=== PATIENT | male | born 1955 | race Caucasian/White ===

== ENCOUNTER 2018-09-26 08:22 | Inpatient (IN) | payer MEDICAID, SELFPAY ==
[2018-09-26] VITALS (22 sets, daily range): BP systolic 104–136; BP diastolic 60–94; PULSE 86–115; RESP 15–25; TEMP 36.2–36.7; O2SAT 91–100; BMI 22.1; BMI 22.3
[2018-09-26 08:31] LABS: Bedside Glucose > 500 mg/dL (70-110)
--- NOTE | 2018-09-26 08:41 | EKG12_ITS ---
Test Reason : DIABETIC Blood Pressure : / mmHG Vent. Rate : 115 BPM Atrial Rate : 115 BPM P-R Int : 182 ms QRS Dur : 104 ms QT Int : 334 ms P-R-T Axes : 073 039 056 degrees QTc Int : 462 ms Sinus tachycardia Low voltage QRS (LIMB LEADS) Confirmed by RAMÓN MCKENNA, MAYI ([id number]), editorial director LILIAM MCKEON ([id number] on 09/29/2018 1:41:20 PM Referred By: Shane Schneider Confirmed By:MAYI MELGAR MD
[2018-09-26 09:00] LABS: Absolute Lymphocyte Count 3.47 X10^3/ul (0.83-4.51); Absolute Neutrophil Count 35.3 X10^3/uL (2.0-7.7); Basophil# 0.02 X10^3/uL; Basophil% 0.1 % (0-1); Differential Indicated SCAN CRITERIA MET; Hematocrit 46.7 % (40-54); Lymphocyte # 3.47 X10^3/ul (4.0); Lymphocyte % 8.7 % (19-41); Mean Corpuscular Volume 100.2 fL (80-94); Mean Platelet Vol. 11.4 fl (6.2-12.0); Neutrophil # 35.28 X10^3/uL (2.7-7.7); Neutrophil % 88.9 % (47-70); POSITIVE COUNT YES; POSITIVE DIFFERENTIAL YES; POSITIVE MORPHOLOGY YES; Platelet Count 428 K/mm3 (150-450); RBC Distribution Width CV 14.4 % (11.6-14.6); RBC Distribution Width SD 52.6 fl (35.1-43.9); Red Blood Count 4.66 M/mm3 (4.6-6.2)
[2018-09-26 09:01] LABS: White Blood Count 39.7 K/mm3 (4.4-11.0)
--- NOTE | 2018-09-26 09:04 | ED.RN ---
dr sharma notified of wbc 39.7
[2018-09-26] MEDS: 0.9% Normal Saline 1,000 ML 999 ML IV ×2 (09:08→10:07)
[2018-09-26] MEDS: Ondansetron 4 MG/2 ML Vial IV (09:08)
--- NOTE | 2018-09-26 09:09 | CPS ---
Critical values on ABG Dr. Huntley was notified.
[2018-09-26 09:11] LABS: Base Excess -25 mmol/L (-2 to +2); Bicarbonate 4.6 mmol/L (22-26); Blood Gas Specimen Type ART; O2 Delivery Device Nasal Can; PO2 127 mmHG (75-100); SITE R Radial; SO2 97 % (95-99); Time Given 857; Total Carbon Dioxide 5 mmol/L; pCO2 15.5 mmHg (35-45); pH 7.09 (7.35-7.45)
--- NOTE | 2018-09-26 09:13 | ED.VISSUMM ---
- ER Visit Summary Date of Service: 09/26/18 Chief Complaint: [Vomiting and hyperglycemia] History of Present Illness: The patient is a 62 M [presents the emergency department via EMS with 3-day history of vomiting. Patient tells me he is been compliant with his insulin and he is a type I diabetic. Patient does have a history of DKA. Denies any chest pain or shortness of breath. He denies any abdominal pain. Patient denies any diarrhea. He has had a slight cough. EMS also gives history of recent heroin use yesterday per patient's apparently. Patient also with history of high cholesterol and hypothyroidism.] Physical Examination: [HEENT-PERRLA, EOMI. Cranial nerves II through XII grossly intact. TMs clear. Mucous membranes dry. No adenopathy. Cardiovascular-regular and tachycardic. No murmurs auscultated. Lungs-clear to auscultation, chest wall stable without crepitus or subcu emphysema Abdomen-normoactive bowel sounds, soft, nontender, no rebound or rigidity, no peritoneal signs. Extremities-intact ?4, normal range of motion, normal pulses, atraumatic] Test Results: [CBC with differential obtained showed a white count of 39.7, hemoglobin 14, hematocrit 47, placed 428. ABG showed a pH of 7.085, CO2 of 15, bicarb of 4.6, 97% on room air. Fingerstick blood sugar on arrival said greater than 500.] Chemistry showed a potassium of 7.3, chloride of 91, CO2 of 7.0, glucose 1219, BUN 51 creatinine 3.07. EKG obtained arrival shows sinus tachycardia with a ventricular rate of 115 bpm with peaked T waves noted. Emergency Department Course and Treatment: [Patient had IV line established in his right EJ as he was a difficult IV stick. Patient was started immediately on a liter normal same fluid bolus and started on insulin drip. A second IV was established in his right upper arm. A second liter of IV fluids was ordered.] Treatment Plan: [Case was discussed with coal pipeline operator who will admit patient to the ICU. Will also discussed with hospitalist.] Disposition: [Admit] Impression: [DKA Dehydration] This note was generated with [employer] dictation software. It may contain incorrect words, spelling, and punctuation that were not noted in review of the chart prior to signing
[2018-09-26 09:20] LABS: Differential Comment SCANNED
[2018-09-26 09:36] LABS: Anion Gap 28 (5-15); BUN 51 mg/dL (7-18); BUN/Creat Ratio 16.6 RATIO (10-20); Calcium,Total 9.4 mg/dL (8.5-10.1); Chloride 91 mmol/L (98-107); Creatinine, Serum 3.07 mg/dL (0.70-1.30); EST Glomerular Filtration Rate 22 mL/min (>60); Est Glom Filt Rate - Afr Amer 27 mL/min (>60); Estimated Creatinine Clearance 25.09 ml/min; Glucose 1219 mg/dL (74-106); Potassium 7.3 mmol/L (3.5-5.1); Sodium Level 126 mmol/L (136-145)
--- NOTE | 2018-09-26 09:39 | ED.RN ---
POTASSIUM 7.3 GLUCOSE 1219 CO2 [address] LAB. DR THORNTON AWARE
--- NOTE | 2018-09-26 10:06 | PCM.HP.STD ---
Problem List (1) Type 1 diabetes mellitus Status: Chronic (2) DKA Status: Acute (3) Opioid type dependence, abuse Status: Chronic (4) Polysubstance use Status: Chronic (5) Acute kidney injury Status: Acute (6) Increased anion gap metabolic acidosis Status: Acute (7) Hyperkalemia Status: Acute (8) Hypothyroidism Status: Chronic (9) Dyslipidemia Status: Chronic History of Present Illness Date of Admission: 09/26/18 Chief Complaint: Vomiting and hyperglycemia The patient is a 62 year old M with history of type 1 diabetes mellitus was brought in to ER by EMS for 3 days of consistent vomiting. Patient also takes heroin IV use. Patient is very somnolent and obtunded and not able to give history. He hardly opens his eyes. [] In ED, he was found tachycardic, tachypneic and blood pressure 104/63. Labs were significantly abnormal for hyperglycemia, glucose of 88, K 7.3, bicarb 9.0, BUN/creatinine 45/2.5, leukocytosis about 40,000, MCV 100 platelet count 128. ABG 7.0 9/127 on 3 L oxygen nasal cannula. UA positive of proteinuria, glucosuria, ketones but negative for hematuria or pyuria. U tox positive of methadone and benzodiazepines. EKG normal sinus rhythm at 89 bpm with LAD and LAE. Patient had 2 L of normal saline bolus given, started on IV insulin drip Past Medical History Past Medical History (Chronic Problems): Chronic Problems Type 1 diabetes mellitus (Chronic) Opioid type dependence, abuse (Chronic) Polysubstance use (Chronic) Hypothyroidism (Chronic) Dyslipidemia (Chronic) Allergies No Known Allergies Allergy (Verified 09/26/18 08:27) Smoking Status: Current every day smoker - Cigarettes about 1 pack/day Alcohol: None Drugs: Heroin - *Family History Paternal History Items: - - Unobtainable as patient has altered mental status/somnolent Review of Systems Eyes: Reports: - - Eyes closed Cardiovascular: Denies: Chest Pain, Chest Pressure Respiratory: Denies: Shortness of Breath Unable to obtain accurate/complete ROS d/t: Obtunded/somnolent VTE Information - Inpt Only VTE Present on Admission: No VTE Mechan Device Prophylaxis: SCD's VTE Pharm Prophylaxis ordered?: Yes Patient Problems: Active and Suspected Problems DKA (Acute) Acute kidney injury (Acute) Increased anion gap metabolic acidosis (Acute) Hyperkalemia (Acute) - Physical Exam General: Confused, Disoriented, Lethargic, - - Patient is very somnolent and obtunded. Oral: No Gingival or Mucosal Lesions/ Ulcerations, Dry Mucosa - Mucous membrane and tongue is very dry and parched Neck: Supple, No JVD, Negative Carotid Bruits Lungs: No rhonchi, No wheeze, No rales, Diminished - Air entry is diminished bilaterally probably from decreased respiratory effort Cardiovascular: Regular rate, Regular Rhythm, Normal S1, Normal S2, No murmurs Abdomen: Bowel Sounds Present, Soft, Non Tender, Non-Distended Extremities: No edema, Capillary Refill Less than 3 Seconds Skin: No rashes, No breakdown Neurological: Cranial nerves II-XII grossly intact, Deep Tendon Reflexes 2+/4 and Symmetrical, - - Detail neuro exam not possible as patient is somnolent Vital Signs Temp Pulse Resp BP Pulse Ox 97.8 F 106 H 24 H 136/71 H 97 09/26/18 08:23 09/26/18 09:37 09/26/18 09:37 09/26/18 09:37 09/26/18 09:37 Oxygen Flow Rate (L/min) 2 Oxygen Delivery Method Nasal Cannula Weight: 154 lb 12.232 oz Body Mass Index (BMI) 22.1 Laboratory Tests Past 24 Hrs 09/26/18 09/26/18 09/26/18 08:45 08:45 08:59 WBC 39.7 H* RBC 4.66 Hgb 14.0 Hct 46.7 MCV 100.2 H MCH 30.0 MCHC 30.0 L RDW 14.4 RDW Differential 52.6 H Plt Count 428 MPV 11.4 Immature Gran % (Auto) 1.300 H Neut % (Auto) 88.9 H Lymph % (Auto) 8.7 L Richardson % (Auto) 1.0 Eos % (Auto) 0.0 Baso % (Auto) 0.1 Absolute Neuts (auto) 35.3 H Absolute Lymphs (auto) 3.47 Total Counted Not Reportable Differential Comment SCANNED Diff Path Review May foll Specimen Type ART Sample Site R Radial pH 7.09 L* Bicarbonate Actual 4.6 L POC Total CO2 5 Base Excess -25 L O2 Saturation 97 ABG pCO2 15.5 L* ABG pO2 127 H Roge Test NA O2 Delivery Device Nasal Can Liter Flow 3.0 Blood Gas Notified Whom ED MD Blood Gas Notified Time 857 Sodium 126 L Potassium 7.3 H* Chloride 91 L Carbon Dioxide 7.0 L* Anion Gap 28 H BUN 51 H Creatinine 3.07 H Estim Creat Clear Calc 25.09 Est GFR (MDRD) Af Amer 27 L Est GFR (MDRD) Non-Af 22 L BUN/Creatinine Ratio 16.6 Glucose 1219 H* Calcium 9.4 Troponin I < 0.015 Acetone Level 09/26/18 09:00 WBC RBC Hgb Hct MCV MCH MCHC RDW RDW Differential Plt Count MPV Immature Gran % (Auto) Neut % (Auto) Lymph % (Auto) Richardson % (Auto) Eos % (Auto) Baso % (Auto) Absolute Neuts (auto) Absolute Lymphs (auto) Total Counted Differential Comment Diff Path Review Specimen Type Sample Site pH Bicarbonate Actual POC Total CO2 Base Excess O2 Saturation ABG pCO2 ABG pO2 Roge Test O2 Delivery Device Liter Flow Blood Gas Notified Whom Blood Gas Notified Time Sodium Potassium Chloride Carbon Dioxide Anion Gap BUN Creatinine Estim Creat Clear Calc Est GFR (MDRD) Af Amer Est GFR (MDRD) Non-Af BUN/Creatinine Ratio Glucose Calcium Troponin I Acetone Level LARGE H POC Glucose 09/26/18 08:26 POC Glucose > 500 H* Assessment/Plan All Active Problems DKA (Acute) Acute kidney injury (Acute) Increased anion gap metabolic acidosis (Acute) Hyperkalemia (Acute) The patient is a 62 year old M with history of type 1 diabetes mellitus was brought in to ER by EMS for 3 days of consistent vomiting. Patient also takes heroin IV use. Patient is very somnolent and obtunded and not able to give history. He hardly opens his eyes. [] In ED, he was found tachycardic, tachypneic and blood pressure 104/63. Labs were significantly abnormal for hyperglycemia, glucose of 1219, K 7.3, bicarb 7.0, BUN/creatinine 51/3.07, leukocytosis about 40,000, MCV 100 platelet count 128. ABG 7.0 9/15/127 on 3 L oxygen nasal cannula. UA positive of proteinuria, glucosuria, ketones but negative for hematuria or pyuria. U tox positive of methadone and benzodiazepines. EKG normal sinus rhythm at 89 bpm with LAD and LAE. 1. DKA with severe high anion gap metabolic acidosis with compensatory respiratory alkalosis: Patient is being admitted in ICU. Repeat ABG after an hour. [employer] has been consulted. On DKA protocol with IV fluid normal saline and insulin drip. Nursing protocol for tapering the insulin drip as per nomogram. [employer] consult 2. Acute kidney injury with hyperkalemia most likely from volume depletion/prerenal etiology, hyponatremia mainly from dilutional hyperglycemia: With aggressive rehydration. Repeat potassium is 6.1. Sodium improved from 126 to 135. Corrected sodium is 143.9. Urine output 1500 mL. Patient has Henning catheter inserted in ER. 3. Leukocytosis seems mainly from hemoconcentration/DKA: She does not have fever. Heart rate is controlled. Monitor CBC. 4. Opioid use and dependence: Polysubstance use. Heroine/methadone use, IV: U tox is positive of methadone and benzodiazepine. LFT, GGT and serum alcohol ordered. 5. Type 1 diabetes mellitus: A1c ordered for tomorrow a.m. assistant manager trainee consulted. 6. Other comorbidities include dyslipidemia and hypothyroidism: TSH and free T4 ordered. DVT prophylaxis: On Lovenox 30 mg subcu daily adjusted to creatinine clearance and bilateral SCDs Code Visit Inpatient E&M: 81316 Init Hosp L3
[2018-09-26 10:09] LABS: Mucous, Urine 0 SEEN /hpf (<or=2+); White Blood Cells 0 SEEN /hpf (0-5)
[2018-09-26 10:17] LABS: Color, Urine Yellow (Yellow); Glucose, Dipstick 1000 mg/dl (Normal); Leukocyte Esterase-Dipstick Negative /ul (Negative); Nitrite-Dipstick Negative (Negative); Occult Blood-Urine 10 /ul (Negative); Protein-Dipstick 15 mg/dl (Negative); Urine Bilirubin Dipstick Negative (Negative); Urine Clarity Sl. Cloudy (Clear); Urine Urobilinogen Normal (Normal)
[2018-09-26 10:21] LABS: Ketone-Dipstick 150 mg/dl (Negative)
[2018-09-26 10:27] LABS: Red Blood Cells-Urine 0-5 SEEN /hpf (0-5)
[2018-09-26 10:28] LABS: Bacteria RARE /hpf (None Seen); Squamous Epithelial Cells - UA 0-5 SEEN /hpf (0-5)
[2018-09-26 10:41] LABS: Bedside Glucose > 500 mg/dL (70-110)
[2018-09-26 10:41] LABS: Bedside Glucose > 500 mg/dL (70-110)
[2018-09-26 10:48] LABS: Amphetamine Urine VISTA NEGATIVE (<1000 ng/mL); Barbiturate Urine VISTA NEGATIVE (< 200 ng/mL); Benzodiazepine Urine VISTA POSITIVE (< 200 ng/mL); Cocaine Urine VISTA NEGATIVE (< 300 ng/mL); Ecstacy Urine VISTA NEGATIVE (< 500 ng/mL); Methadone Urine VISTA POSITIVE (< 300 ng/mL); PCP Urine VISTA NEGATIVE (< 25 ng/mL); THC Urine VISTA NEGATIVE (< 50 ng/mL); Vista UDS pH Range 5
[2018-09-26 11:38] LABS: Anion Gap 20 (5-15); BUN 45 mg/dL (7-18); BUN/Creat Ratio 17.5 RATIO (10-20); Calcium,Total 8.7 mg/dL (8.5-10.1); Chloride 106 mmol/L (98-107); Creatinine, Serum 2.57 mg/dL (0.70-1.30); EST Glomerular Filtration Rate 27 mL/min (>60); Est Glom Filt Rate - Afr Amer 33 mL/min (>60); Estimated Creatinine Clearance 30.14 ml/min; Glucose 788 mg/dL (74-106); Potassium 6.1 mmol/L (3.5-5.1); Sodium Level 135 mmol/L (136-145)
--- NOTE | 2018-09-26 11:51 | PCM.CON.CC ---
Reason for Consult Date of Consultation: 09/26/18 Reason for Consultation: DKA, hyperkalemia History of Present Illness: The patient is a 62 year old M, with past medical history reportedly for narcotic/heroin abuse, type 1 diabetes and hypothyroidism, who presented to [facility] on 09/26/2018 secondary to a 3-day history of vomiting. Patient is not able to provide much history at this time, but does state he has had DKA previously. Patient has not been seen at this hospital prior to this visit. Patient reportedly had used heroin yesterday per EMS, but this cannot be verified. On arrival to the ER, patient was noted to be dehydrated, tachypneic and tachycardic. Laboratory work-up showed profound metabolic acidosis with partial respiratory compensation. Blood sugars were noted to be over 1200 and potassium was 7.3. EKG did show some peaked T waves. Patient was noted to have a creatinine at 3.07.. Patient was given fluid boluses and transferred to the intensive care unit for further evaluation. On arrival to the intensive care unit, patient was protecting his airway, but not answering appropriately. Patient opens his eyes to voice, moves all extremities appropriately, but mumbles most responses. Patient reports he used heroin because he was out of Suboxone. Patient is unable to provide any background on his diabetes. Patient's is not with him at this time. Unable to obtain review of systems at this time. Past Medical History Allergies No Known Allergies Allergy (Verified 09/26/18 08:27) Smoking Status: Current every day smoker Review of Systems Unable to obtain accurate/complete ROS d/t: Metabolic encephalopathy Objective: No imaging has been obtained. Patient has no pulmonary function test, echo or other health data available for review at this time. - Physical Exam General: - - RASS -2. Appears older than stated age. Protecting his airway. No paradoxical respiratory muscle motion noted. HEENT: Atraumatic, PERRLA, EOMI, Normocephalic, - - Slight scleral injection without icterus Oral: No Gingival or Mucosal Lesions/ Ulcerations, Dry Mucosa, - - Edentulous. Neck: Supple, No JVD, No Nodes, Trachea Midline Lungs: No rhonchi, No wheeze, No rales, Diminished, - - Symmetric expansion. No dullness to percussion. Cardiovascular: Normal S1, Normal S2, No murmurs, No rub noted, No Gallop, Tachycardic Abdomen: Bowel Sounds Present, Soft, Non Tender, Non-Distended Extremities: No cyanosis, No edema, Capillary Refill Less than 3 Seconds, Clubbing Skin: No rashes, No breakdown Musculoskeletal: No Tenderness to Palpation of Joints or Extremities, Cachexia, Muscle Wasting Lymphatic: No Cervical, Supraclavicular, or Inguinal Adenopathy Neurological: Cranial nerves II-XII grossly intact, Neuro grossly intact, Motor Exam 5/5 strength throughout Psych/Mental Status: Flat Affect, Restless Vital Signs Temp Pulse Resp BP Pulse Ox 36.2 C L 86 17 112/77 99 09/26/18 11:30 09/26/18 11:44 09/26/18 11:44 09/26/18 11:44 09/26/18 11:44 Oxygen Flow Rate (L/min) 2 Oxygen Delivery Method Room Air Weight: 70.6 kg Body Mass Index (BMI) 22.3 Laboratory Tests Past 24 Hrs 09/26/18 09/26/18 09/26/18 08:45 08:45 08:59 WBC 39.7 H* RBC 4.66 Hgb 14.0 Hct 46.7 MCV 100.2 H MCH 30.0 MCHC 30.0 L RDW 14.4 RDW Differential 52.6 H Plt Count 428 MPV 11.4 Immature Gran % (Auto) 1.300 H Neut % (Auto) 88.9 H Lymph % (Auto) 8.7 L Larue % (Auto) 1.0 Eos % (Auto) 0.0 Baso % (Auto) 0.1 Absolute Neuts (auto) 35.3 H Absolute Lymphs (auto) 3.47 Total Counted Not Reportable Differential Comment SCANNED Diff Path Review May foll Specimen Type ART Sample Site R Radial pH 7.09 L* Bicarbonate Actual 4.6 L POC Total CO2 5 Base Excess -25 L O2 Saturation 97 ABG pCO2 15.5 L* ABG pO2 127 H Roge Test NA O2 Delivery Device Nasal Can Liter Flow 3.0 Blood Gas Notified Whom ED Blood Gas Notified Time 857 Sodium 126 L Potassium 7.3 H* Chloride 91 L Carbon Dioxide 7.0 L* Anion Gap 28 H BUN 51 H Creatinine 3.07 H Estim Creat Clear Calc 25.09 Est GFR (MDRD) Af Amer 27 L Est GFR (MDRD) Non-Af 22 L BUN/Creatinine Ratio 16.6 Glucose 1219 H* Calcium 9.4 Magnesium Troponin I < 0.015 Urine Color Urine Clarity Urine pH Ur Specific [place] Urine Protein Urine Glucose (UA) Urine Ketones Urine Occult Blood Urine Nitrite Urine Bilirubin Urine Urobilinogen Ur Leukocyte Esterase Urine RBC Urine WBC Ur Squamous Epith Cells Urine Bacteria Urine Mucus Urine Opiates Screen Urine Methadone Screen Ur Barbiturates Screen Ur Phencyclidine Scrn Ur Amphetamines Screen U Methamphetamin-MDMA U Benzodiazepines Scrn Urine Cocaine Screen U Cannabinoids Screen Ur Drug Screen Comment Acetone Level 09/26/18 09/26/18 09/26/18 09:00 10:02 10:02 WBC RBC Hgb Hct MCV MCH MCHC RDW RDW Differential Plt Count MPV Immature Gran % (Auto) Neut % (Auto) Lymph % (Auto) Larue % (Auto) Eos % (Auto) Baso % (Auto) Absolute Neuts (auto) Absolute Lymphs (auto) Total Counted Differential Comment Diff Path Review Specimen Type Sample Site pH Bicarbonate Actual POC Total CO2 Base Excess O2 Saturation ABG pCO2 ABG pO2 Roge Test O2 Delivery Device Liter Flow Blood Gas Notified Whom Blood Gas Notified Time Sodium Potassium Chloride Carbon Dioxide Anion Gap BUN Creatinine Estim Creat Clear Calc Est GFR (MDRD) Af Amer Est GFR (MDRD) Non-Af BUN/Creatinine Ratio Glucose Calcium Magnesium Troponin I Urine Color Yellow Urine Clarity Sl. Cloudy Urine pH 5.0 Ur Specific [place] 1.010 Urine Protein 15 H Urine Glucose (UA) 1000 H Urine Ketones 150 H Urine Occult Blood 10 H Urine Nitrite Negative Urine Bilirubin Negative Urine Urobilinogen Normal Ur Leukocyte Esterase Negative Urine RBC 0-5 SEEN Urine WBC 0 SEEN Ur Squamous Epith Cells 0-5 SEEN Urine Bacteria RARE Urine Mucus 0 SEEN Urine Opiates Screen NEGATIVE Urine Methadone Screen POSITIVE H Ur Barbiturates Screen NEGATIVE Ur Phencyclidine Scrn NEGATIVE Ur Amphetamines Screen NEGATIVE U Methamphetamin-MDMA NEGATIVE U Benzodiazepines Scrn POSITIVE H Urine Cocaine Screen NEGATIVE U Cannabinoids Screen NEGATIVE Ur Drug Screen Comment Acetone Level LARGE H 09/26/18 09/26/18 11:05 11:05 WBC RBC Hgb Hct MCV MCH MCHC RDW RDW Differential Plt Count MPV Immature Gran % (Auto) Neut % (Auto) Lymph % (Auto) Larue % (Auto) Eos % (Auto) Baso % (Auto) Absolute Neuts (auto) Absolute Lymphs (auto) Total Counted Differential Comment Diff Path Review Specimen Type Sample Site pH Bicarbonate Actual POC Total CO2 Base Excess O2 Saturation ABG pCO2 ABG pO2 Roge Test O2 Delivery Device Liter Flow Blood Gas Notified Whom Blood Gas Notified Time Sodium 135 L Potassium 6.1 H* Chloride 106 Carbon Dioxide 9.0 L* Anion Gap 20 H BUN 45 H Creatinine 2.57 H Estim Creat Clear Calc 30.14 Est GFR (MDRD) Af Amer 33 L Est GFR (MDRD) Non-Af 27 L BUN/Creatinine Ratio 17.5 Glucose 788 H* Calcium 8.7 Magnesium Pending Troponin I Urine Color Urine Clarity Urine pH Ur Specific [place] Urine Protein Urine Glucose (UA) Urine Ketones Urine Occult Blood Urine Nitrite Urine Bilirubin Urine Urobilinogen Ur Leukocyte Esterase Urine RBC Urine WBC Ur Squamous Epith Cells Urine Bacteria Urine Mucus Urine Opiates Screen Urine Methadone Screen Ur Barbiturates Screen Ur Phencyclidine Scrn Ur Amphetamines Screen U Methamphetamin-MDMA U Benzodiazepines Scrn Urine Cocaine Screen U Cannabinoids Screen Ur Drug Screen Comment Acetone Level POC Glucose 09/26/18 09/26/18 09/26/18 10:33 09:45 08:26 POC Glucose > 500 H* > 500 H* > 500 H* Assessment/Plan RECOMMENDATIONS: 1. Initiate DKA protocol 2. Aggressive fluid resuscitation 3. Hold on Suboxone therapy 4. Discontinue supplemental oxygen 5. Attempt to obtain further information IMPRESSIONS: 1. Acute DKA Exact etiology is unclear at this time. Patient does not appear to have any infectious source. Noncompliance is a consideration. Patient's current situation is complicated by active abuse of heroin. Patient should be placed on the protocol. Aggressive fluid resuscitation. 2. Reported heroin abuse Patient reports that he is on Suboxone therapy. However, his narcotic review shows no narcotics since 2016. Suboxone should have shown on this report. We will hold off on anything for now. 3. Possible hypothyroidism/possible hypercholesterolemia/probable malnutrition Attempt to obtain further information. Unclear if current information is accurate. Likely okay to hold these medications until further information can be obtained. Code Visit Inpatient E&M: 52230 Init Hosp L3
[2018-09-26 12:00] LABS: Magnesium 2.8 mg/dL (1.6-2.6)
[2018-09-26 12:25] LABS: Bedside Glucose > 500 mg/dL (70-110)
[2018-09-26] MEDS: 0.9% Normal Saline 1,000 ML 500 ML IV (12:40)
[2018-09-26] MEDS: 0.9% NaCl Peripheral Flush Adult/Peds IV (12:41)
[2018-09-26] MEDS: Enoxaparin 30 MG/0.3 ML Syringe SC (13:00)
[2018-09-26 13:08] LABS: AST(SGOT) 38 U/L (15-37); Alanine Aminotransfer ALT/SGPT 25 U/L (16-61); Albumin, Serum 3.9 g/dL (3.2-5.0); Alkaline Phosphatase 143 U/L (45-117); Bilirubin, Direct 0.07 mg/dL (0.00-0.30); GGTP 16 U/L (15-85); Globulin 4.2 g/dL (2.2-4.2); Protein, Total 8.1 g/dL (6.4-8.2)
[2018-09-26 13:26] LABS: Anion Gap 16 (5-15); BUN 44 mg/dL (7-18); BUN/Creat Ratio 18.1 RATIO (10-20); Calcium,Total 9.3 mg/dL (8.5-10.1); Chloride 109 mmol/L (98-107); Creatinine, Serum 2.43 mg/dL (0.70-1.30); EST Glomerular Filtration Rate 29 mL/min (>60); Est Glom Filt Rate - Afr Amer 35 mL/min (>60); Estimated Creatinine Clearance 31.88 ml/min; Glucose 572 mg/dL (74-106); Sodium Level 140 mmol/L (136-145)
[2018-09-26 13:56] LABS: Bedside Glucose 474 mg/dL (70-110)
[2018-09-26] MEDS: 0.9% Normal Saline 1,000 ML 250 ML IV (15:02)
[2018-09-26 15:16] LABS: Bedside Glucose 338 mg/dL (70-110)
[2018-09-26 16:10] LABS: Bedside Glucose 363 mg/dL (70-110)
[2018-09-26 17:10] LABS: Anion Gap 8 (5-15); BUN 36 mg/dL (7-18); BUN/Creat Ratio 21.7 RATIO (10-20); Chloride 117 mmol/L (98-107); Creatinine, Serum 1.66 mg/dL (0.70-1.30); EST Glomerular Filtration Rate 45 mL/min (>60); Est Glom Filt Rate - Afr Amer 54 mL/min (>60); Estimated Creatinine Clearance 46.66 ml/min; Glucose 273 mg/dL (74-106); Potassium 4.4 mmol/L (3.5-5.1); Sodium Level 144 mmol/L (136-145)
[2018-09-26 17:11] LABS: Bedside Glucose 387 mg/dL (70-110)
[2018-09-26 18:11] LABS: Bedside Glucose 221 mg/dL (70-110)
[2018-09-26] MEDS: Dext 5%-0.45% NS 1,000 ML 150 ML IV (19:02)
[2018-09-26 19:05] LABS: Bedside Glucose 180 mg/dL (70-110)
[2018-09-26 20:11] LABS: Bedside Glucose 190 mg/dL (70-110)
[2018-09-26 21:01] LABS: Anion Gap 7 (5-15); BUN 34 mg/dL (7-18); BUN/Creat Ratio 24.1 RATIO (10-20); Calcium,Total 8.8 mg/dL (8.5-10.1); Chloride 118 mmol/L (98-107); Creatinine, Serum 1.41 mg/dL (0.70-1.30); EST Glomerular Filtration Rate 54 mL/min (>60); Est Glom Filt Rate - Afr Amer 66 mL/min (>60); Estimated Creatinine Clearance 54.94 ml/min; Glucose 197 mg/dL (74-106); Potassium 4.4 mmol/L (3.5-5.1); Sodium Level 147 mmol/L (136-145)
[2018-09-26 21:15] LABS: Bedside Glucose 239 mg/dL (70-110)
[2018-09-26 22:05] LABS: Bedside Glucose 178 mg/dL (70-110)
[2018-09-27] VITALS (14 sets, daily range): BP systolic 100–130; BP diastolic 66–88; PULSE 81–97; RESP 12–24; TEMP 36.6–37; O2SAT 95–99
[2018-09-27 05:07] LABS: Absolute Lymphocyte Count 1.56 X10^3/ul (0.83-4.51); Absolute Neutrophil Count 18.5 X10^3/uL (2.0-7.7); Basophil# 0.01 X10^3/uL; Eosinophil# 0.02 X10^3/uL; Eosinophils% 0.1 % (0-5); Hemoglobin 11.9 g/dl (13.0-16.5); Lymphocyte # 1.56 X10^3/ul (4.0); Lymphocyte % 7.3 % (19-41); Mean Corpuscular Hgb 29.8 pg (27.0-32.0); Mean Corpuscular Volume 87.7 fL (80-94); Mean Platelet Vol. 10.9 fl (6.2-12.0); Monocyte# 1.12 X10^3/uL; Monocyte% 5.3 % (0-10); Neutrophil # 18.49 X10^3/uL (2.7-7.7); Neutrophil % 86.9 % (47-70); POSITIVE COUNT NO; POSITIVE DIFFERENTIAL NO; POSITIVE MORPHOLOGY NO; Platelet Count 313 K/mm3 (150-450); RBC Distribution Width CV 14.2 % (11.6-14.6); RBC Distribution Width SD 44.8 fl (35.1-43.9); Red Blood Count 3.99 M/mm3 (4.6-6.2); White Blood Count 21.3 K/mm3 (4.4-11.0)
[2018-09-27 05:25] LABS: Anion Gap 12 (5-15); BUN 32 mg/dL (7-18); Calcium,Total 8.9 mg/dL (8.5-10.1); Chloride 112 mmol/L (98-107); Cholesterol 158 mg/dL (200); Creatinine, Serum 1.23 mg/dL (0.70-1.30); EST Glomerular Filtration Rate 63 mL/min (>60); Est Glom Filt Rate - Afr Amer 77 mL/min (>60); Estimated Creatinine Clearance 64.58 ml/min; Glucose 362 mg/dL (74-106); High Density Lipoprotein 36 mg/dL; Potassium 4.6 mmol/L (3.5-5.1); Sodium Level 144 mmol/L (136-145); T4 Free Direct 0.97 ng/dL (0.76-1.46); Triglycerides 209 mg/dL; Very Low Density Lipoprotein 42 mg/dL (5-40)
[2018-09-27] MEDS: Insulin Lispro 100 UNIT/ML INSULN.PEN SC ×2 (06:51→12:27)
[2018-09-27 07:01] LABS: Bedside Glucose 392 mg/dL (70-110)
[2018-09-27 08:02] LABS: Hemoglobin A1c 8.4 % (4.2-6.3)
--- NOTE | 2018-09-27 08:12 | PCM.PN.HOSP ---
Patient Problems: Active and Suspected Problems DKA (Acute) Acute kidney injury (Acute) Increased anion gap metabolic acidosis (Acute) Hyperkalemia (Acute) Subjective: Patient DKA resolved. Insulin drip discontinued and started on Accu-Chek before meals and at bedtime. Patient is awake and alert. He denies missing his insulin or change in the insulin regimen. Patient also denies fasting or change in the diet. Vitals/I&O's: Vital Signs Temp Pulse Resp BP Pulse Ox 98.2 F 94 24 H 119/75 96 09/27/18 04:00 09/27/18 06:00 09/27/18 06:00 09/27/18 06:00 09/27/18 06:00 Oxygen Flow Rate (L/min) 2 Oxygen Delivery Method Room Air Weight: 159 lb 9.835 oz Body Mass Index (BMI) 22.3 Finger Stick Blood Glucose 178 Intake and Output for Last 24 Hours 09/25/18 09/26/18 09/27/18 23:59 23:59 23:59 Intake Total 1909 / 1909 951.5 / 951.5 Output Total 1450 / 1450 800 / 800 Balance 459 / 459 151.5 / 151.5 General: Alert, Oriented x3, Cooperative HEENT: Atraumatic, PERRLA, EOMI, Normocephalic Neck: Supple, No JVD, Negative Carotid Bruits Lungs: Normal air movement, No rhonchi, No wheeze, No rales, Diminished Cardiovascular: Regular rate, Regular Rhythm, Normal S1, Normal S2, No murmurs Abdomen: Bowel Sounds Present, Soft, Non Tender, Non-Distended Extremities: No edema, Capillary Refill Less than 3 Seconds Skin: No rashes, No breakdown Musculoskeletal: No Tenderness to Palpation of Joints or Extremities, Arthritic Changes Neurological: Cranial nerves II-XII grossly intact, Deep Tendon Reflexes 2+/4 and Symmetrical, Neuro grossly intact Psych/Mental Status: Normal Affect, Appropriate Laboratory Results 09/26/18 08:26: POC Glucose > 500 H* 09/26/18 08:45: WBC 39.7 H*, RBC 4.66, Hgb 14.0, Hct 46.7, MCV 100.2 H, MCH 30.0, MCHC 30.0 L, RDW 14.4, RDW Differential 52.6 H, Plt Count 428, MPV 11.4, Immature Gran % (Auto) 1.300 H, Neut % (Auto) 88.9 H, Lymph % (Auto) 8.7 L, [place] % (Auto) 1.0, Eos % (Auto) 0.0, Baso % (Auto) 0.1, Absolute Neuts (auto) 35.3 H, Absolute Lymphs (auto) 3.47, Total Counted Not Reportable, Differential Comment SCANNED, Diff Path Review August09/26/18 08:45: Sodium 126 L, Potassium 7.3 H*, Chloride 91 L, Carbon Dioxide 7.0 L*, Anion Gap 28 H, BUN 51 H, Creatinine 3.07 H, Estim Creat Clear Calc 25.09, Est GFR (MDRD) Af Amer 27 L, Est GFR (MDRD) Non-Af 22 L, BUN/Creatinine Ratio 16.6, Glucose 1219 H*, Calcium 9.4, Troponin I < 0.015 09/26/18 08:45: Ethyl Alcohol 9.0 09/26/18 08:59: Specimen Type ART, Sample Site R Radial, pH 7.09 L*, Bicarbonate Actual 4.6 L, POC Total CO2 5, Base Excess -25 L, O2 Saturation 97, ABG pCO2 15.5 L*, ABG pO2 127 H, Roge Test NA, O2 Delivery Device Nasal Can, Liter Flow 3.0, Blood Gas Notified Whom ED , Blood Gas Notified Time 857 09/26/18 09:00: Acetone Level LARGE H 09/26/18 09:45: POC Glucose > 500 H* 09/26/18 10:02: Urine Opiates Screen NEGATIVE, Urine Methadone Screen POSITIVE H, Ur Barbiturates Screen NEGATIVE, Ur Phencyclidine Scrn NEGATIVE, Ur Amphetamines Screen NEGATIVE, U Methamphetamin-MDMA NEGATIVE, U Benzodiazepines Scrn POSITIVE H, Urine Cocaine Screen NEGATIVE, U Cannabinoids Screen NEGATIVE, Ur Drug Screen Comment 09/26/18 10:02: Urine Color Yellow, Urine Clarity Sl. Cloudy, Urine pH 5.0, Ur Specific [place] 1.010, Urine Protein 15 H, Urine Glucose (UA) 1000 H, Urine Ketones 150 H, Urine Occult Blood 10 H, Urine Nitrite Negative, Urine Bilirubin Negative, Urine Urobilinogen Normal, Ur Leukocyte Esterase Negative, Urine RBC 0-5 SEEN, Urine WBC 0 SEEN, Ur Squamous Epith Cells 0-5 SEEN, Urine Bacteria RARE, Urine Mucus 0 SEEN 09/26/18 10:33: POC Glucose > 500 H* 09/26/18 11:05: Sodium 135 L, Potassium 6.1 H*, Chloride 106, Carbon Dioxide 9.0 L*, Anion Gap 20 H, BUN 45 H, Creatinine 2.57 H, Estim Creat Clear Calc 30.14, Est GFR (MDRD) Af Amer 33 L, Est GFR (MDRD) Non-Af 27 L, BUN/Creatinine Ratio 17.5, Glucose 788 H*, Calcium 8.7 09/26/18 11:05: Magnesium 2.8 H 09/26/18 12:21: POC Glucose > 500 H* 09/26/18 12:30: Sodium 140, Potassium 6.0 H*, Chloride 109 H, Carbon Dioxide 15.0 L, Anion Gap 16 H, BUN 44 H, Creatinine 2.43 H, Estim Creat Clear Calc 31.88, Est GFR (MDRD) Af Amer 35 L, Est GFR (MDRD) Non-Af 29 L, BUN/Creatinine Ratio 18.1, Glucose 572 H*, Calcium 9.3 09/26/18 12:30: Total Bilirubin 0.50, Direct Bilirubin 0.07, GGT 16, AST 38 H, ALT 25, Alkaline Phosphatase 143 H, Total Protein 8.1, Albumin 3.9, Globulin 4.2 09/26/18 13:51: POC Glucose 474 H* 09/26/18 15:00: POC Glucose 338 H 09/26/18 16:06: POC Glucose 363 H 09/26/18 16:40: Sodium 144, Potassium 4.4, Chloride 117 H, Carbon Dioxide 19.0 L, Anion Gap 8, BUN 36 H, Creatinine 1.66 H, Estim Creat Clear Calc 46.66, Est GFR (MDRD) Af Amer 54 L, Est GFR (MDRD) Non-Af 45 L, BUN/Creatinine Ratio 21.7 H, Glucose 273 H, Calcium 9.0 09/26/18 17:04: POC Glucose 387 H 09/26/18 18:08: POC Glucose 221 H 09/26/18 19:00: POC Glucose 180 H 09/26/18 20:03: POC Glucose 190 H 09/26/18 20:40: Sodium 147 H, Potassium 4.4, Chloride 118 H, Carbon Dioxide 22.0, Anion Gap 7, BUN 34 H, Creatinine 1.41 H, Estim Creat Clear Calc 54.94, Est GFR (MDRD) Af Amer 66, Est GFR (MDRD) Non-Af 54 L, BUN/Creatinine Ratio 24.1 H, Glucose 197 H, Calcium 8.8 09/26/18 21:08: POC Glucose 239 H 09/26/18 22:02: POC Glucose 178 H 09/27/18 04:50: WBC 21.3 H, RBC 3.99 L, Hgb 11.9 L, Hct 35.0 L, MCV 87.7, MCH 29.8, MCHC 34.0, RDW 14.2, RDW Differential 44.8 H, Plt Count 313, MPV 10.9, Immature Gran % (Auto) 0.400, Neut % (Auto) 86.9 H, Lymph % (Auto) 7.3 L, [place] % (Auto) 5.3, Eos % (Auto) 0.1, Baso % (Auto) 0.0, Absolute Neuts (auto) 18.5 H, Absolute Lymphs (auto) 1.56, Total Counted Not Reportable 09/27/18 04:50: Sodium 144, Potassium 4.6, Chloride 112 H, Carbon Dioxide 20.0 L, Anion Gap 12, BUN 32 H, Creatinine 1.23, Estim Creat Clear Calc 64.58, Est GFR (MDRD) Af Amer 77, Est GFR (MDRD) Non-Af 63, BUN/Creatinine Ratio 26.0 H, Glucose 362 H, Calcium 8.9, Triglycerides 209 H, Cholesterol 158, LDL Cholesterol 80, VLDL Cholesterol 42 H, HDL Cholesterol 36 L, TSH 0.40, Free T4 0.97 09/27/18 04:50: Hemoglobin A1c 8.4 H 09/27/18 06:48: POC Glucose 392 H Current Medications Dextrose (D50w Syringe) 0 gm IV X1 PRN; Protocol PRN Reason: HYPOGLYCEMIA Dextrose (D50w Syringe) 0 gm IV X1 PRN; Protocol PRN Reason: Hypoglycemia Enoxaparin Sodium (Lovenox) 30 mg SC DAILY@1000 EVELIN Last Admin: 09/26/18 13:00 Dose: 30 mg Glucagon () 1 mg IM .X1 PRN PRN Reason: Hypoglycemia Insulin Glargine (Lantus (Bkc)) 15 units SC BID EVELIN Last Admin: 09/26/18 22:13 Dose: 15 u Insulin Human Lispro (Humalog Kwikpen (Bkc)) 0 unit SC ACHS EVELIN; Protocol Last Admin: 09/27/18 06:51 Dose: 10 unit Insulin Human Lispro (Humalog Kwikpen (Bkc)) 15 unit SC TIDAC EVELIN Sodium Chloride () 5 - 15 ml IV UD PRN PRN Reason: SALINE FLUSH Last Admin: 09/26/18 12:41 Dose: 10 ml Medical Necessity - Tobacco Use Smoking Status: Current every day smoker - Cigarettes about 1 pack/day Assessment/Plan All Active Problems DKA (Acute) Acute kidney injury (Acute) Increased anion gap metabolic acidosis (Acute) Hyperkalemia (Acute) The patient is a 62 year old M with history of type 1 diabetes mellitus was brought in to ER by EMS for 3 days of consistent vomiting. Patient also takes heroin IV use. Patient was somnolent first day but is more awake thereafter. [] In ED, he was found tachycardic, tachypneic and blood pressure 104/63. Labs were significantly abnormal for hyperglycemia, glucose of 1219, K 7.3, bicarb 7.0, BUN/creatinine 51/3.07, leukocytosis about 40,000, MCV 100 platelet count 128. ABG 7.0 9/15/127 on 3 L oxygen nasal cannula. UA positive of proteinuria, glucosuria, ketones but negative for hematuria or pyuria. U tox positive of methadone and benzodiazepines. EKG normal sinus rhythm at 89 bpm with LAD and LAE. 1. DKA with severe high anion gap metabolic acidosis with compensatory respiratory alkalosis: The patient was admitted in ICU and then transferred to [facility]. Admin Assistant has been consulted. Patient was on DKA protocol and now insulin changed to AC and at bedtime with Accu-Cheks. Lantus 15 units of cutaneous twice daily 2. Acute kidney injury with hyperkalemia most likely from volume depletion/prerenal etiology, hyponatremia mainly from dilutional hyperglycemia: With aggressive rehydration. Repeat potassium is 6.1. Sodium improved from 126 to 135. Corrected sodium is 143.9. Urine output 1500 mL. Patient has Henning catheter inserted in ER. creatinine has improved to 1.23. BUN 32. Remove Henning catheter. 3. Leukocytosis seems mainly from hemoconcentration/DKA: She does not have fever. Heart rate is controlled. Leukocytosis is decreased. 4. Opioid use and dependence: Polysubstance use. Heroine/methadone use, IV: U tox is positive of methadone and benzodiazepine. LFT shows mildly elevated transaminases AST 38. ALT 25. Alk phos 143. GGT normal. Alcohol level negative; 9. 5. Type 1 diabetes mellitus: A1c ordered for tomorrow a.m. chemical plant manager consulted. 6. Other comorbidities include dyslipidemia and hypothyroidism: TSH and free T4 normal. Fasting profile shows triglyceride 209, LDL 80, VLDL 42. HDL 36. DVT prophylaxis: On Lovenox 30 mg subcu daily adjusted to creatinine clearance and bilateral SCDs Laboratory Results 09/26/18 08:45: Ethyl Alcohol 9.0 09/26/18 12:30: Sodium 140, Potassium 6.0 H*, Chloride 109 H, Carbon Dioxide 15.0 L, Anion Gap 16 H, BUN 44 H, Creatinine 2.43 H, Estim Creat Clear Calc 31.88, Est GFR (MDRD) Af Amer 35 L, Est GFR (MDRD) Non-Af 29 L, BUN/Creatinine Ratio 18.1, Glucose 572 H*, Calcium 9.3 09/26/18 12:30: Total Bilirubin 0.50, Direct Bilirubin 0.07, GGT 16, AST 38 H, ALT 25, Alkaline Phosphatase 143 H, Total Protein 8.1, Albumin 3.9, Globulin 4.2 09/26/18 16:40: Sodium 144, Potassium 4.4, Chloride 117 H, Carbon Dioxide 19.0 L, Anion Gap 8, BUN 36 H, Creatinine 1.66 H, Estim Creat Clear Calc 46.66, Est GFR (MDRD) Af Amer 54 L, Est GFR (MDRD) Non-Af 45 L, BUN/Creatinine Ratio 21.7 H, Glucose 273 H, Calcium 9.0 09/26/18 20:40: Sodium 147 H, Potassium 4.4, Chloride 118 H, Carbon Dioxide 22.0, Anion Gap 7, BUN 34 H, Creatinine 1.41 H, Estim Creat Clear Calc 54.94, Est GFR (MDRD) Af Amer 66, Est GFR (MDRD) Non-Af 54 L, BUN/Creatinine Ratio 24.1 H, Glucose 197 H, Calcium 8.8 09/27/18 04:50: WBC 21.3 H, RBC 3.99 L, Hgb 11.9 L, Hct 35.0 L, MCV 87.7, MCH 29.8, MCHC 34.0, RDW 14.2, RDW Differential 44.8 H, Plt Count 313, MPV 10.9, Immature Gran % (Auto) 0.400, Neut % (Auto) 86.9 H, Lymph % (Auto) 7.3 L, [place] % (Auto) 5.3, Eos % (Auto) 0.1, Baso % (Auto) 0.0, Absolute Neuts (auto) 18.5 H, Absolute Lymphs (auto) 1.56, Total Counted Not Reportable 09/27/18 04:50: Sodium 144, Potassium 4.6, Chloride 112 H, Carbon Dioxide 20.0 L, Anion Gap 12, BUN 32 H, Creatinine 1.23, Estim Creat Clear Calc 64.58, Est GFR (MDRD) Af Amer 77, Est GFR (MDRD) Non-Af 63, BUN/Creatinine Ratio 26.0 H, Glucose 362 H, Calcium 8.9, Triglycerides 209 H, Cholesterol 158, LDL Cholesterol 80, VLDL Cholesterol 42 H, HDL Cholesterol 36 L, TSH 0.40, Free T4 0.97 09/27/18 04:50: Hemoglobin A1c 8.4 H 09/27/18 06:48: POC Glucose 392 H 09/27/18 12:21: POC Glucose 376 H Code Visit Inpatient E&M: 43817 Subs Hosp L3
[2018-09-27] MEDS: Enoxaparin 30 MG/0.3 ML Syringe SC (09:21)
[2018-09-27 12:26] LABS: Bedside Glucose 376 mg/dL (70-110)
[2018-09-27] MEDS: Insulin Lispro 100 UNIT/ML INSULN.PEN 15 UNIT SC (12:28)
--- NOTE | 2018-09-27 12:47 | CASEMGMT ---
SW met with patient, introduced self and role at [facility]. Patient was very sleepy, but did answer SW's questions. He said he is currently on Suboxone for his opiate addiction. He goes to a clinic called [facility] in [place]. The physician's name is Dr Orozco. He denies any further needs for resources. Tanna SHETTY
[2018-09-27] MEDS: Fenofibrate 48 MG Tablet PO (17:51)
[2018-09-27] MEDS: Insulin Lispro 100 UNIT/ML INSULN.PEN 20 UNIT SC (17:52)
[2018-09-27] MEDS: Insulin NPH Human 100 UNITS/ML PEN 15 UNITS SC (17:53)
[2018-09-27 18:36] LABS: Bedside Glucose 146 mg/dL (70-110)
[2018-09-27] MEDS: Pravastatin 80 MG Tablet PO (21:21)
[2018-09-27 21:30] LABS: Bedside Glucose 110 mg/dL (70-110)
[2018-09-28] MEDS: Levothyroxine 88 MCG Tablet PO (05:22)
[2018-09-28 05:24] VITALS: BP 110/75; PULSE 67; RESP 16; TEMP 36.8; O2SAT 96
[2018-09-28 08:00] VITALS: BP 121/80; PULSE 62; RESP 14; TEMP 36.8; O2SAT 95
[2018-09-28] MEDS: Aspirin 325 MG Tablet PO (08:23)
[2018-09-28] MEDS: Insulin NPH Human 100 UNITS/ML PEN 15 UNITS SC (08:23)
[2018-09-28] MEDS: Insulin Lispro 100 UNIT/ML INSULN.PEN SC (08:24)
[2018-09-28] MEDS: Fenofibrate 48 MG Tablet PO (08:29)
[2018-09-28] MEDS: Insulin Lispro 100 UNIT/ML INSULN.PEN 20 UNIT SC (08:29)
[2018-09-28] MEDS: Multivitamins,Ther W-Minerals Tablet 1 TABLET PO (08:29)
[2018-09-28 08:33] LABS: Absolute Lymphocyte Count 2.23 X10^3/ul (0.83-4.51); Basophil# 0.01 X10^3/uL; Basophil% 0.1 % (0-1); Eosinophil# 0.12 X10^3/uL; Eosinophils% 1.1 % (0-5); Hematocrit 35.8 % (40-54); Lymphocyte # 2.23 X10^3/ul (4.0); Lymphocyte % 20.1 % (19-41); Mean Corp Hgb Conc 33.5 g/gl (32-36); Mean Corpuscular Hgb 29.4 pg (27.0-32.0); Mean Corpuscular Volume 87.7 fL (80-94); Mean Platelet Vol. 10.6 fl (6.2-12.0); Monocyte# 0.69 X10^3/uL; Monocyte% 6.2 % (0-10); Neutrophil # 8.04 X10^3/uL (2.7-7.7); Neutrophil % 72.3 % (47-70); POSITIVE COUNT NO; POSITIVE DIFFERENTIAL NO; POSITIVE MORPHOLOGY NO; Platelet Count 258 K/mm3 (150-450); RBC Distribution Width CV 14.1 % (11.6-14.6); RBC Distribution Width SD 44.6 fl (35.1-43.9); Red Blood Count 4.08 M/mm3 (4.6-6.2); White Blood Count 11.1 K/mm3 (4.4-11.0)
[2018-09-28] MEDS: Enoxaparin 30 MG/0.3 ML Syringe SC (08:35)
[2018-09-28 08:45] LABS: Bedside Glucose 289 mg/dL (70-110)
[2018-09-28 09:14] LABS: Anion Gap 8 (5-15); BUN 19 mg/dL (7-18); Chloride 105 mmol/L (98-107); EST Glomerular Filtration Rate 121 mL/min (>60); Est Glom Filt Rate - Afr Amer 146 mL/min (>60); Estimated Creatinine Clearance 111.92 ml/min; Glucose 303 mg/dL (74-106); Potassium 3.8 mmol/L (3.5-5.1); Sodium Level 138 mmol/L (136-145)
--- NOTE | 2018-09-28 09:49 | DS.PCM_ITS ---
Discharge Date and Diagnosis Date of Admission: 09/26/18 Date of Discharge: 09/28/18 - Primary Discharge Diagnosis Active and Suspected Problems DKA (Acute) Acute kidney injury (Acute) Increased anion gap metabolic acidosis (Acute) Hyperkalemia (Acute) - Secondary Discharge Diagnosis Chronic Problems Type 1 diabetes mellitus (Chronic) Opioid type dependence, abuse (Chronic) Polysubstance use (Chronic) Hypothyroidism (Chronic) Dyslipidemia (Chronic) Hospital Course and Treatment Summary of Care Provided: [] The patient is a 62 year old M with history of type 1 diabetes mellitus was brought in to ER by EMS for 3 days of consistent vomiting. Patient also takes heroin IV use. Patient was somnolent first day but is more awake thereafter. [] In ED, he was found tachycardic, tachypneic and blood pressure 104/63. Labs were significantly abnormal for hyperglycemia, glucose of 1219, K 7.3, bicarb 7.0, BUN/creatinine 51/3.07, leukocytosis about 40,000, MCV 100 platelet count 128. ABG 7.0 01/11/ on 3 L oxygen nasal cannula. UA positive of proteinuria, glucosuria, ketones but negative for hematuria or pyuria. U tox positive of methadone and benzodiazepines. EKG normal sinus rhythm at 89 bpm with LAD and LAE. 1. DKA with severe high anion gap metabolic acidosis with compensatory respiratory alkalosis: The patient was admitted in ICU and then transferred to [facility]. Cloud Engagement Partner has been consulted. Patient was on DKA protocol and now insulin changed to AC and at bedtime with Accu-Cheks. NPH insulin increased to 20 units of Lantus twice daily. On regular insulin 15 units of cutaneous 3 times daily. 2. Acute kidney injury with hyperkalemia most likely from volume depletion/prerenal etiology, hyponatremia mainly from dilutional hyperglycemia: With aggressive rehydration. Hyperkalemia and hyponatremia resolved. Henning catheter removed. 3. Leukocytosis seems mainly from hemoconcentration/DKA: She does not have fever. Heart rate is controlled. Leukocytosis is decreased. Today blue BC count 11,000. 4. Opioid use and dependence: Polysubstance use. Heroine/methadone use, IV: U tox is positive of methadone and benzodiazepine. LFT shows mildly elevated transaminases AST 38. ALT 25. Alk phos 143. GGT normal. Alcohol level negative; 9. 5. Type 1 diabetes mellitus: A1c 8.4. 6. Other comorbidities include dyslipidemia and hypothyroidism: TSH and free T4 normal. Fasting profile shows triglyceride 209, LDL 80, VLDL 42. HDL 36. DVT prophylaxis: On Lovenox 30 mg subcu daily adjusted to creatinine clearance and bilateral SCDs Discharge medication reconciliation done. Discharge follow-up instructions completed. Discharge process discussed with the patient and all questions were answered to patient's satisfaction. Patient stated he has NPH insulin and Regular Insulin at home. For increased triglyceridemia, TriCor was prescribed. Advised follow-up with chrome tanning drum operator in 1 to 2 weeks. Patient might be benefited with insulin pump. Total time spent, exact 35 minutes on discharge meds reconciliation, examination, review of imaging and blood test and discussion with the patient on follow-up instructions. Laboratory Results 09/27/18 17:50: POC Glucose 146 H 09/27/18 21:23: POC Glucose 110 09/28/18 08:14: WBC 11.1 H, RBC 4.08 L, Hgb 12.0 L, Hct 35.8 L, MCV 87.7, MCH 29.4, MCHC 33.5, RDW 14.1, RDW Differential 44.6 H, Plt Count 258, MPV 10.6, Immature Gran % (Auto) 0.200, Neut % (Auto) 72.3 H, Lymph % (Auto) 20.1, [place] % (Auto) 6.2, Eos % (Auto) 1.1, Baso % (Auto) 0.1, Absolute Neuts (auto) 8.0 H, Absolute Lymphs (auto) 2.23, Total Counted Not Reportable 09/28/18 08:14: Sodium 138, Potassium 3.8, Chloride 105, Carbon Dioxide 25.0, Anion Gap 8, BUN 19 H, Creatinine 0.70, Estim Creat Clear Calc 111.92, Est GFR (MDRD) Af Amer 146, Est GFR (MDRD) Non-Af 121, BUN/Creatinine Ratio 27.0 H, Glucose 303 H, Calcium 9.0 09/28/18 08:18: POC Glucose 289 H Subjective: Patient seen and examined. On his normal baseline. Hemodynamically stable. Blood pressure 121/80. Heart rate in 60s. - Physical Exam General: Alert, Oriented x3, Cooperative HEENT: Atraumatic, PERRLA, EOMI, Normocephalic Neck: Supple, No JVD, Negative Carotid Bruits Lungs: Clear to auscultation, Normal air movement, No rhonchi, No wheeze, No rales Cardiovascular: Regular rate, Regular Rhythm, Normal S1, Normal S2, No murmurs Abdomen: Bowel Sounds Present, Soft, Non Tender, Non-Distended Extremities: No edema, Capillary Refill Less than 3 Seconds Skin: No rashes, No breakdown Musculoskeletal: No Tenderness to Palpation of Joints or Extremities, Arthritic Changes Lymphatic: No Cervical, Supraclavicular, or Inguinal Adenopathy Neurological: Cranial nerves II-XII grossly intact, Deep Tendon Reflexes 2+/4 and Symmetrical, Neuro grossly intact, Motor Exam 5/5 strength throughout Psych/Mental Status: Normal Affect, Appropriate Vital Signs Temp Pulse Resp BP Pulse Ox 98.2 F 62 14 121/80 H 95 09/28/18 08:00 09/28/18 08:00 09/28/18 08:00 09/28/18 08:00 09/28/18 08:00 Oxygen Flow Rate (L/min) 2 Oxygen Delivery Method Room Air Weight: 157 lb 6.561 oz Body Mass Index (BMI) 22.3 Finger Stick Blood Glucose 178 Intake and Output for Last 24 Hours 09/26/18 09/27/18 09/28/18 23:59 23:59 23:59 Intake Total 1909 / 1909 951.5 / 951.5 500 / 500 Output Total 1450 / 1450 800 / 800 Balance 459 / 459 151.5 / 151.5 500 / 500 Laboratory Tests Past 24 Hrs 09/28/18 09/28/18 08:14 08:14 WBC 11.1 H RBC 4.08 L Hgb 12.0 L Hct 35.8 L MCV 87.7 MCH 29.4 MCHC 33.5 RDW 14.1 RDW Differential 44.6 H Plt Count 258 MPV 10.6 Immature Gran % (Auto) 0.200 Neut % (Auto) 72.3 H Lymph % (Auto) 20.1 [place] % (Auto) 6.2 Eos % (Auto) 1.1 Baso % (Auto) 0.1 Absolute Neuts (auto) 8.0 H Absolute Lymphs (auto) 2.23 Total Counted Not Reportable Sodium 138 Potassium 3.8 Chloride 105 Carbon Dioxide 25.0 Anion Gap 8 BUN 19 H Creatinine 0.70 Estim Creat Clear Calc 111.92 Est GFR (MDRD) Af Amer 146 Est GFR (MDRD) Non-Af 121 BUN/Creatinine Ratio 27.0 H Glucose 303 H Calcium 9.0 POC Glucose 09/28/18 09/27/18 09/27/18 08:18 21:23 17:50 POC Glucose 289 H 110 146 H 09/27/18 12:21 POC Glucose 376 H Call your doctor if you observe: Fever of 101 or Higher, Inability to have a bowel movement, Shortness of breath, Dizziness, Fainting spells, Swelling in the ankles, Chest pain Home Medications: Medications to take at Discharge Aspirin 325 mg PO DAILY@0800 09/27/18 Buprenorphine HCl/Naloxone HCl [Suboxone 8 mg-2 mg Sl Film] 8 mg SL DAILY 09/27/18 Insulin Regular, Human [Novolin R] 15 unit SC TIDCM 09/27/18 Levothyroxine [Synthroid] 88 mcg PO DAILY 09/27/18 Multivitamin with Minerals [Multiple Vitamin] 1 tab PO DAILY 09/27/18 Pravastatin [Pravachol] 80 mg PO DAILY 09/27/18 Fenofibrate [Tricor] 48 mg PO DAILY #30 tab 09/28/18 Insulin NPH Human Isophane [Novolin N] 20 units SC BID #0 09/28/18 Following Prescrptions Were Given to Patient: Fenofibrate [Tricor] 48 mg PO DAILY #30 tab Primary Care Physician: Andrea Cadet MD [Primary Care Provider] - Please follow up with your Primary Care Physician in: in 2 weeks Medical Necessity - Tobacco Use Smoking Status: Current every day smoker - Cigarettes about 1 pack/day Meaningful Use Info Meaningful Use Diagnoses (Choose all that apply): None applicable Code Visit Inpatient E&M: 33057 Disch Hosp
--- NOTE | 2018-09-28 09:49 | DCINST_ITS ---
- Discharge Diagnoses Current Active Problems: Current Active and Chronic Problems Type 1 diabetes mellitus (Chronic) DKA (Acute) Opioid type dependence, abuse (Chronic) Polysubstance use (Chronic) Acute kidney injury (Acute) Increased anion gap metabolic acidosis (Acute) Hyperkalemia (Acute) Hypothyroidism (Chronic) Dyslipidemia (Chronic) You will use the following diet at home:: Calorie/Carbohydrate Controlled (specify 1200, 1400, etc) - 1800 ADA diet Your food should be the consistency of: Regular Call your doctor if you observe: Fever of 101 or Higher, Inability to have a bowel movement, Shortness of breath, Dizziness, Fainting spells, Swelling in the ankles, Chest pain Allergies/Adverse Reactions: Allergies No Known Allergies Allergy (Verified 09/26/18 08:27) Medications to take at Discharge Aspirin 325 mg PO DAILY@0800 09/27/18 Buprenorphine HCl/Naloxone HCl [Suboxone 8 mg-2 mg Sl Film] 8 mg SL DAILY 09/27/18 Insulin Regular, Human [Novolin R] 15 unit SC TIDCM 09/27/18 Levothyroxine [Synthroid] 88 mcg PO DAILY 09/27/18 Multivitamin with Minerals [Multiple Vitamin] 1 tab PO DAILY 09/27/18 Pravastatin [Pravachol] 80 mg PO DAILY 09/27/18 Fenofibrate [Tricor] 48 mg PO DAILY #30 tab 09/28/18 Insulin NPH Human Isophane [Novolin N] 20 units SC BID #0 09/28/18 The following prescriptions were given: Fenofibrate [Tricor] 48 mg PO DAILY #30 tab Primary Care Physician: Andrea Cadet MD [Primary Care Provider] - Please follow up with your Primary Care Physician in: in 2 weeks Test Results: Test results from this visit will be discussed in further detail at your follow- up appointment, if applicable.
--- NOTE | 2018-09-28 11:24 | NURSING ---
Offered pt toilet, denies need. PT layed flat in bed. This nurse took EJ out of Rt side of neck as pt is going home. Pt held breath while this nurse took out. Occlusive drsg applied. Laying flat for 30 min.
[2018-09-29 15:09] LABS: Pathologist Review Reviewed
== END 2018-09-28 11:44 | disposition home or self-care (01) | DRG 420 ==
LOC: ED 10:07 → ICU 10:23 → MS2 09-27 09:28
PROVIDERS: Admitting Provider Internal Medicine; Emergency Provider Emergency Medicine; Family Provider Family Medicine; PCP Family Medicine; Referring Provider Internal Medicine; Visit Provider Internal Medicine
DX: E10.10 Type 1 diabetes mellitus with ketoacidosis without coma (principal); N17.9 Acute kidney failure, unspecified; E87.3 Alkalosis; E86.0 Dehydration; E03.9 Hypothyroidism, unspecified; E87.5 Hyperkalemia; E78.5 Hyperlipidemia, unspecified; F17.210 Nicotine dependence, cigarettes, uncomplicated; Z79.4 Long term (current) use of insulin; F11.10 Opioid abuse, uncomplicated; E78.00 Pure hypercholesterolemia, unspecified
CPT/HCPCS: 36415; 36600; 80048; 80061; 80076; 80307; 80320; 81001; 82009; 82803; 82962; 82977; 83036; 83735; 84439; 84443; 84484; 85025; 90471; 93005; 99285; J7030; A4216; G0480; J2405; J7799

== ENCOUNTER 2020-06-16 16:47 | Inpatient (IN) | payer MEDICAID, SELFPAY ==
[2018-09-26 11:29] VITALS: BMI 22.3
[2020-06-16] VITALS (13 sets, daily range): BP systolic 109–146; BP diastolic 71–93; PULSE 85–102; RESP 10–18; TEMP 36.7–36.8; O2SAT 91–97; BMI 23.0; BMI 23.2
--- NOTE | 2020-06-16 17:15 | EKG12_ITS ---
Test Reason : Blood Pressure : / mmHG Vent. Rate : 097 BPM Atrial Rate : 097 BPM P-R Int : 162 ms QRS Dur : 098 ms QT Int : 392 ms P-R-T Axes : 051 021 051 degrees QTc Int : 497 ms Normal sinus rhythm Prolonged QT Abnormal ECG Confirmed by SHASTA MCKENNA, MARIZOL ([id number]), multimedia editor PEDRO PEREZ ([id number]) on 06/20/2020 10:54:07 AM Referred By: CLEOPATRA Confirmed By:MARIZOL VEGAS MD
--- NOTE | 2020-06-16 18:15 | RAD_ITS ---
STUDY: X-RAY CHEST REASON FOR EXAM: Male, 64 years old. N/V x 9 days with blood sugars over 600, tachypnea TECHNIQUE: 2 frontal images of the chest were obtained. COMPARISON: None. FINDINGS: The lungs are hyperinflated. There is no focal consolidation. Normal size heart. Normal mediastinum and guero. Normal visualized pulmonary arteries. Normal visualized aortic arch and descending thoracic aorta. Normal visualized thoracic spine. Normal visualized ribs, clavicles, and shoulders. There is no demonstrated abnormality of the visualized soft tissue structures of the upper abdomen. RAD/Chest 1 View (Portable) IMPRESSION: Hyperinflated lungs. Electronically Signed: Analisa Best MD at 18:48 EST Tel , Service support ,
[2020-06-16] MEDS: 0.9% Normal Saline 1,000 ML 999 ML IV ×2 (18:35→19:21)
[2020-06-16 18:39] LABS: Absolute Lymphocyte Count 0.79 X10^3/uL (0.83-4.51); Absolute Neutrophil Count 14.5 X10^3/uL (2.0-7.7); Basophil# 0.04 X10^3/uL; Basophil% 0.2 % (0-1); Eosinophil# 0.01 X10^3/uL; Eosinophils% 0.1 % (0-5); Hematocrit 51.1 % (40-54); Hemoglobin 17.9 g/dL (13.0-16.5); Lymphocyte # 0.79 X10^3/ul (4.0); Lymphocyte % 4.8 % (19-41); Mean Corpuscular Hgb 29.9 pg (27.0-32.0); Mean Corpuscular Volume 85.5 fL (80-94); Mean Platelet Vol. 12.3 fl (6.2-12.0); Monocyte# 0.76 X10^3/uL; Monocyte% 4.7 % (0-10); NRBC Flagged by Analyzer 0 % (0-5); Neutrophil # 14.53 X10^3/uL (2.7-7.7); Neutrophil % 89.1 % (47-70); Platelet Count 290 K/mm3 (150-450); RBC Distribution Width CV 12.4 % (11.6-14.6); RBC Distribution Width SD 38.4 fl (35.1-43.9); Red Blood Count 5.98 M/mm3 (4.6-6.2); White Blood Count 16.3 K/mm3 (4.4-11.0)
[2020-06-16 19:04] LABS: Anion Gap 23 (5-15); BUN 68 mg/dL (7-18); BUN/Creat Ratio 34.2 RATIO (10-20); Calcium,Total 10.1 mg/dL (8.5-10.1); Chloride 74 mmol/L (98-107); Creatinine, Serum 1.99 mg/dL (0.70-1.30); EST Glomerular Filtration Rate 36 mL/min (>60); Est Glom Filt Rate - Afr Amer 44 mL/min (>60); Estimated Creatinine Clearance 39.07 ml/min; Glucose 696 mg/dL (74-106); Potassium 5.2 mmol/L (3.5-5.1); Sodium Level 116 mmol/L (136-145)
--- NOTE | 2020-06-16 19:09 | ED.DCSUM_ITS ---
History of Present Illness Chief Complaint: General Illness Informant: Patient Onset: Days Context: Sudden Onset Timing: Continuous Quality: Nausea, vomiting, shortness of breath, blurred vision increased urination Location: Not applicable Current Severity: Moderate Maximum Severity: Moderate Worsened by: Elevated blood sugar per paramedics Relieved by: Nothing Associated Symptoms: Symptoms of DKA Narrative: She is 64-year-old male with type 1 diabetes for the past 4 to 5 years who presents with polyuria, polydipsia, thirst and dry mouth. He states he is compliant with his meds. He denies fever, chills night sweats. He does report intermittent blurred vision. He denies headache. Eyes ringing in his ears or decreased hearing. Denies rhinorrhea, congestion or postnasal drainage. No sore throat. He did denies cough, but does complain of shortness of breath. He denies chest discomfort. He denies diarrhea. He denies hematuria or dysuria. He denies rash or skin lesion. He denies problems with balance. Prior similar symptoms: Yes Recent Illness/Hospitalization: No - Past Medical History (1) Dyslipidemia Status: Chronic (2) Hypothyroidism Status: Chronic (3) Opioid type dependence, abuse Status: Chronic (4) Polysubstance use Status: Chronic (5) Type 1 diabetes mellitus Status: Chronic Past Medical History - Allergies and Home Meds Allergies/Adverse Reactions: Allergies No Known Allergies Allergy (Verified 06/16/20 17:04) Primary Care Physician: Andrea Cadet MD [Primary Care Provider] - Prior records reviewed: Yes Surgical History: noncontributory Lives: Alone Smoking Status: Current every day smoker Alcohol: Rare Drugs: None - Family History Paternal Family History: Reports: - - Unobtainable as patient has altered mental status/somnolent Review of Systems General: Reports: Malaise. Denies: Chills, Fever, Sweats Eyes: Reports: Blurred Vision - bilaterally. Denies: Visual changes - bilaterally, Diplopia ENT: Denies: Bilateral ear pain, Rhinorrhea, Sore throat Cardiovascular: Denies: Chest pain, Palpitations Respiratory: Reports: Dyspnea. Denies: Cough, Sputum, Dyspnea on exertion, Orthopnea, Paroxysmal nocturnal dyspnea Gastrointestinal: Reports: Nausea. Denies: Abdominal pain, Vomiting, Diarrhea, Constipation, Melena, Hematochezia, -, - Genitourinary: Denies: Dysuria, Hematuria Musculoskeletal: Denies: Myalgias, Arthralgias, Neck pain, Back pain, Swelling, Extremity Pain Skin: Denies: Rash, Wounds Neurological: Reports: Headache. Denies: Weakness, Parasthesia Endocrine: Reports: Polyuria, Polydipsia Hematologic: Denies: Easy bruising, Easy bleeding Physical Exam Vital Signs/Narrative: Vital Signs Temp Pulse Resp BP Pulse Ox 06/16/20 18:47 91 18 94 06/16/20 18:03 98.1 F 99 18 109/88 H 96 06/16/20 17:03 98.1 F 102 H 13 117/89 H 96 06/16/20 16:54 98.1 F 102 H 13 117/89 H 96 Inital Vital Signs reviewed: Yes General: Well developed, Unkempt, Acute Distress Head: Normocephalic, Atraumatic Eyes: Perrl, EOMI. Negative for: Pale conjunctiva, Scleral icterus ENT: No rhinorrhea, TM's clear, Dry mucous membranes Neck: Supple, Nontender, No lymphadenopathy, No JVD Cardiovascular: Regular rhythm, No murmurs, Normal S1, Normal S2, Tachycardia Respiratory: No distress, CTA bilaterally, Chest nontender Abdomen: Soft, Nontender, Nondistended, Normal bowel sounds Rectal: Deferred Back: Nontender, Normal Inspection Extremities: Nontender, No edema Skin: Normal color, No rash. Negative for: Cyanosis, Diaphoresis, Jaundice Neurological: Cranial nerves II-XII grossly intact, Normal Strength, Normal Sensation, Normal DTR - No clonus or Babinski sign.. Negative for: Alert, Oriented x3 Psychological: Depressed Diagnostic/Tx/Re-eval Chest X-Ray - ED: 1 View, Read by ED Physician, Normal, Heart, Mediastinum, Bony Structures, No Acute Disease, - - X-ray interpreted by me. There is evidence of hyper aeration. Impressions Chest X-Ray 06/16/20 18:15 IMPRESSION: Hyperinflated lungs. Electronically Signed: Analisa Best MD at 18:48 EST Tel , Service support , 06/16/20 18:15 Chest 1 View (Portable) [RAD] Stat Laboratory Results 06/16/20 06/16/20 06/16/20 18:29 18:29 18:29 WBC 16.3 H RBC 5.98 Hgb 17.9 H Hct 51.1 MCV 85.5 MCH 29.9 MCHC 35.0 RDW Std Deviation 38.4 RDW Coeff of Vane 12.4 Plt Count 290 MPV 12.3 H Immature Gran % (Auto) 1.100 H Neut % (Auto) 89.1 H Lymph % (Auto) 4.8 L Lea % (Auto) 4.7 Eos % (Auto) 0.1 Baso % (Auto) 0.2 Absolute Neuts (auto) 14.5 H Absolute Lymphs (auto) 0.79 L Nucleated RBC % 0 Sodium 116 L* Potassium 5.2 H Chloride 74 L* Carbon Dioxide 19.0 L Anion Gap 23 H BUN 68 H Creatinine 1.99 H Estim Creat Clear Calc 39.07 Est GFR (MDRD) Af Amer 44 L Est GFR (MDRD) Non-Af 36 L BUN/Creatinine Ratio 34.2 H Glucose 696 H* Calcium 10.1 Acetone Level MODERATE H Patient was treated with 2 L normal saline. Insulin drip has been ordered. Patient creatinine is elevated at 1.99 with a BUN of 68 which would indicate prerenal azotemia with elevated creatinine. Sodium is 116. Since he is not on a diuretic will order urine osmolarity. White count is elevated which is nonspecific. Urine is pending. - Medical Decision Making Patient has ketotic odor to his breath. Suspect patient is in DKA. DKA order set was initiated. Will need to determine etiology. Echo is ordered to rule out pneumonia. Urine to rule out UTI. EKG because T waves appear prominent on the monitor. EKG reveals a sinus rhythm with a rate of 97 and prolonged QT interval. There is no peak T waves. - Critical Care Time Critical care time (excluding procedures): 30-74 minutes - Total time 33 minutes which includes obtaining history, physical exam, review of prior records, documentation, interpretation of laboratory results and initiation of treatment. ED Disposition - Plan for ED Patient: Disposition: Acute Care [facility] Diagnosis: DKA, type 1, Sinus tachycardia seen on registered nurse cardiac, Hyponatremia, Acute prerenal azotemia, Elevated serum creatinine Referrals: Andrea Cadet MD [Primary Care Provider] -
[2020-06-16 19:20] LABS: Bacteria 0 SEEN /hpf (None Seen); Mucous, Urine 0 SEEN /hpf (<or=2+); Red Blood Cells-Urine 0 SEEN /hpf (0-5); Squamous Epithelial Cells - UA 0 SEEN /hpf (0-5); White Blood Cells 0 SEEN /hpf (0-5)
[2020-06-16 19:21] LABS: Bedside Glucose > 500 mg/dL (70-110)
--- NOTE | 2020-06-16 19:26 | HP.PCM_ITS ---
Problem List (1) Acute prerenal azotemia Status: Acute (2) DKA, type 1 Status: Acute (3) Elevated serum creatinine Status: Acute (4) Hyponatremia Status: Acute (5) Sinus tachycardia seen on quality assurance monitor Status: Acute (6) Dyslipidemia Status: Chronic (7) Hypothyroidism Status: Chronic (8) Opioid type dependence, abuse Status: Chronic (9) Polysubstance use Status: Chronic (10) Type 1 diabetes mellitus Status: Chronic (11) Acute kidney injury Status: Acute (12) DKA Status: Acute (13) Hyperkalemia Status: Acute (14) Increased anion gap metabolic acidosis Status: Acute History of Present Illness Date of Admission: 06/16/20 Chief Complaint: Nausea and vomiting. The patient is a 64 year old M with a significant history of opioid abuse; diabetes mellitus with multiple DKA admissions; and hypothyroidism who presents to the emergency department with 9-day history of progressively worsening nausea and vomiting. Initially patient did not have a polyuria but later developed a polyuria. He denies polydipsia. Reportedly, he is compliant with his home insulin therapy. Associated with his symptoms is anorexia. Past Medical History Past Medical History (Chronic Problems): Chronic Problems Type 1 diabetes mellitus (Chronic) Opioid type dependence, abuse (Chronic) Polysubstance use (Chronic) Hypothyroidism (Chronic) Dyslipidemia (Chronic) Allergies No Known Allergies Allergy (Verified 06/16/20 17:04) Home Medications: Ambulatory Orders Medication Instructions Recorded Aspirin 325 mg PO DAILY@0800 09/27/18 Insulin Regular, Human [Novolin R] 15 unit SC TIDCM 09/27/18 Levothyroxine [Synthroid] 88 mcg PO DAILY 09/27/18 Multivitamin with Minerals 1 tab PO DAILY 09/27/18 [Multiple Vitamin] Pravastatin [Pravachol] 80 mg PO DAILY 09/27/18 Insulin NPH Human Isophane 15 units SC BID 06/16/20 [Novolin N] Surgical History: herniorrhaphy, - - Multiple teeth extraction; finger amputation Lives: Alone Smoking Status: Current every day smoker Tobacco Use: Cigarettes Alcohol: Rare Drugs: None - *Family History Paternal History Items: Cancer, - Maternal History Items: Diabetes Review of Systems Constitutional: Reports: Anorexia, Weakness, Fatigue. Denies: Chills, Fever, Weight Change HEENT: Denies: Head Aches, Sinus Congestion, Sinus Drainage Cardiovascular: Denies: Chest Pain, Palpitations Respiratory: Denies: Cough, Shortness of breath at rest, Sputum production Gastrointestinal: Reports: Nausea, Vomiting. Denies: Abdominal Pain Genitourinary: Denies: Dysuria Musculoskeletal: Denies: Joint Pain, Joint Tenderness Skin: Denies: Rash, Wounds Neurological: Denies: Numbness, Tingling, Focal weakness Psychiatric: Denies: Anxiety, Depression, Homicidal Ideations, Suicidal Ideations Endocrine: Reports: Polyuria Hematologic/ Lymphatic: Denies: Easy Bruising, Easy Bleeding VTE Information - Inpt Only VTE Present on Admission: No VTE Mechan Device Prophylaxis: None VTE Pharm Prophylaxis ordered?: Yes Patient Problems: Active and Suspected Problems DKA (Acute) Acute kidney injury (Acute) Increased anion gap metabolic acidosis (Acute) Hyperkalemia (Acute) DKA, type 1 (Acute) Sinus tachycardia seen on quality assurance monitor (Acute) Hyponatremia (Acute) Acute prerenal azotemia (Acute) Elevated serum creatinine (Acute) - Physical Exam Vitals/I&O's: Vital Signs Temp Pulse Resp BP Pulse Ox 98.1 F 91 18 109/88 H 94 06/16/20 18:03 06/16/20 18:47 06/16/20 18:47 06/16/20 18:03 06/16/20 18:47 Oxygen Delivery Method Room Air Weight: 72.7 kg Body Mass Index (BMI) 23.0 Finger Stick Blood Glucose 600 Intake and Output for Last 24 Hours 06/14/20 06/15/20 06/16/20 23:59 23:59 23:59 Intake Total 765.9 / 765.9 Balance 765.9 / 765.9 General: Alert, Oriented x3, Cooperative HEENT: Atraumatic, PERRLA, EOMI, Normocephalic Oral: Dry Mucosa, - - Edentulous; cracked lips with blood. Neck: Supple, No JVD, Negative Carotid Bruits Lungs: Clear to auscultation, Normal air movement, No rhonchi, No wheeze, No rales Cardiovascular: Regular rate, No murmurs Abdomen: Bowel Sounds Present, Soft, Non Tender Extremities: No edema, Capillary Refill Less than 3 Seconds Skin: No rashes, No breakdown Musculoskeletal: No Tenderness to Palpation of Joints or Extremities Neurological: Cranial nerves II-XII grossly intact Psych/Mental Status: Normal Affect, Appropriate Laboratory Results 06/16/20 18:29: WBC 16.3 H, RBC 5.98, Hgb 17.9 H, Hct 51.1, MCV 85.5, MCH 29.9, MCHC 35.0, RDW Std Deviation 38.4, RDW Coeff of Vane 12.4, Plt Count 290, MPV 12.3 H, Immature Gran % (Auto) 1.100 H, Neut % (Auto) 89.1 H, Lymph % (Auto) 4.8 L, Jack % (Auto) 4.7, Eos % (Auto) 0.1, Baso % (Auto) 0.2, Absolute Neuts (auto) 14.5 H, Absolute Lymphs (auto) 0.79 L, Nucleated RBC % 0 06/16/20 18:29: Sodium 116 L*, Potassium 5.2 H, Chloride 74 L*, Carbon Dioxide 19.0 L, Anion Gap 23 H, BUN 68 H, Creatinine 1.99 H, Estim Creat Clear Calc 39.07, Est GFR (MDRD) Af Amer 44 L, Est GFR (MDRD) Non-Af 36 L, BUN/Creatinine Ratio 34.2 H, Glucose 696 H*, Calcium 10.1 06/16/20 18:29: Acetone Level MODERATE H 06/16/20 18:37: POC Glucose > 500 H* 06/16/20 19:15: Urine Color Pending, Urine Clarity Pending, Urine pH Pending, Ur Specific [place] Pending, Urine Protein Pending, Urine Glucose (UA) Pending, Urine Ketones Pending, Urine Occult Blood Pending, Urine Nitrite Pending, Urine Bilirubin Pending, Urine Urobilinogen Pending, Ur Leukocyte Esterase Pending, Urine RBC Pending, Urine WBC Pending, Ur Squamous Epith Cells Pending, Urine Bacteria Pending, Urine Mucus Pending Current Medications Dextrose (Dextrose 50%-Water 25 Gm/50 Ml Disp.Syrin) 0 gm IV X1 PRN; Protocol PRN Reason: Hypoglycemia Protocol Insulin Human Lispro 100 unit/ (Sodium Chloride) 100 mls @ 7.27 mls/hr CONT INF .[id number] [facility]; Protocol Stop: 06/17/20 09:00 Assessment/Plan All Active Problems DKA (Acute) Acute kidney injury (Acute) Increased anion gap metabolic acidosis (Acute) Hyperkalemia (Acute) DKA, type 1 (Acute) Sinus tachycardia seen on quality assurance monitor (Acute) Hyponatremia (Acute) Acute prerenal azotemia (Acute) Elevated serum creatinine (Acute) The patient is a 64 year old M with a significant history of opioid abuse; diabetes mellitus with multiple DKA admissions; and hypothyroidism who presents emergency department with 9-day history of progressively worsening nausea and vomiting and found to be in diabetic ketoacidosis acidosis. DKA The patient reports compliance with home insulin therapy Serum glucose: 696 acetone level: Moderate Anion gap of 23 Sodium 116, . Corrected sodium 126. With corrected sodium noted within range ED doctor was about SIADH. Urinary osmolality ordered. Will order serum osmolality and urine sodium. Insulin drip started from emergency department; continue 2 L of normal saline bolus given at emergency department. Continue on maintenance normal saline infusion per DKA protocol Because of potassium of 5.2 will not start potassium supplementation at this time. BMP every 4 hours to calculate anion gap. N.p.o. for now Admitted to ICU A1c ordered. Halftone Operator consult. Compazine as needed for nausea and vomiting. Avoid Zofran because of prolonged QTc interval. DAVEY on CKD stage III/dehydration Creatinine 1.99. Review of old records show that this is higher than baseline. BUN 68. Highest on file so far BUN over creatinine is 34.2. Likely prerenal from osmotic diuresis. CKD from diabetes. Leukocytosis Impression of chest x-ray: Hyperinflated lungs. Actual chest x-ray image was independently reviewed. I agree radiologist interpretation. Review of medical department labs shows white count of 16.3. Comprehensive review of systems and symptoms did not show any infection at this time. Likely reactive. Treat DKA as above. Hyperkalemia Potassium of 5.2 with some tall T waves. With insulin IV fluids anticipate normalization with possible need of potassium along the line. Trend BMP. Tobacco abuse Counseled Nicotine patch prescribed. Erythrocytosis Hemoglobin 17.9 on presentation. Multifactorial from smoking and dehydration. IV fluids as above. Counseled. Hypothyroidism Home Synthroid held at this time secondary to n.p.o. status. Prolonged QT interval and sinus tachycardia. QTC of more than 450. Avoid QTC prolongation drugs. IV fluids as above DVT prophylaxis Subcutaneous Lovenox Inpatient E&M: 24590 Init Hosp L3
[2020-06-16 19:50] LABS: Color, Urine Yellow (Yellow); Glucose, Dipstick 1000 mg/dl (Normal); Ketone-Dipstick 50 mg/dl (Negative); Leukocyte Esterase-Dipstick Negative /ul (Negative); Nitrite-Dipstick Negative (Negative); Occult Blood-Urine 10 /ul (Negative); Protein-Dipstick 15 mg/dl (Negative); Specific Gravity, Urine 1.015 (1.002-1.030); Urine Bilirubin Dipstick Negative (Negative); Urine Clarity Clear (Clear); Urine Urobilinogen Normal (Normal)
[2020-06-16 19:56] LABS: Bedside Glucose 449 mg/dL (70-110)
[2020-06-16 20:13] LABS: Osmolality, Urine 543 mOsm/KG
[2020-06-16] MEDS: 0.9% Normal Saline 1,000 ML 250 ML IV (20:25)
[2020-06-16 20:35] LABS: Bedside Glucose 416 mg/dL (70-110)
[2020-06-16 20:44] LABS: Hemoglobin A1c 9.2 % (3.8-5.6)
[2020-06-16 21:40] LABS: Bedside Glucose 332 mg/dL (70-110)
[2020-06-16 22:51] LABS: Bedside Glucose 306 mg/dL (70-110)
[2020-06-17] VITALS: BP 120/84; PULSE 87; RESP 10; TEMP 36.6; O2SAT 95
--- NOTE | 2020-06-17 00:07 | NURSING ---
23:[address] Time out done with Dr Brunner prior to attempt to place a central line. 0005 Lidocaine was given around the site for numbing. 0007 Dr Brunner is attempting to place a central line in the RIJ. 0010 Pt is getting restless VSS are stable HR 98, O2 96 RA, RR 20 and BP is 118/87. 0011 Placing more lidocaine around the side at this time. 0012 Dr Brunner got blood return however was unable thread the catheter at this time. 0015 Dr Brunner told patient he will attempt one more time at this point and if he is unable to get access he will no longer continue to try. 0019 Dr Brunner is unable to get a line in his RIJ will attempt in his groin at this time. 0025 Dr Brunner is going to give the patient a break and attempt to get a capillary specimen and if unable will attempt central line in the groin at this time.
[2020-06-17] MEDS: Dext 5%-0.45% NS 1,000 ML 150 ML IV (00:15)
--- NOTE | 2020-06-17 00:35 | PCM.PN.BLA ---
Progress Note Unsuccessful attempt to cannulate the right IJ after multiple attempts by nursing staff and nurses to get blood work. Plan is to get bmp to manage DKA. Will get capillary blood for bmp. If not will attempt femoral line. STROKE Vital Signs/Narrative: Vital Signs Pulse Resp BP BP Pulse Ox 06/16/20 23:17 86 06/16/20 23:00 91 16 136/86 H 97 06/16/20 22:00 85 13 115/71 91 06/16/20 21:00 91 12 115/78 96 06/16/20 20:45 90 14 115/81 H 95
[2020-06-17 00:36] LABS: Bedside Glucose 216 mg/dL (70-110)
[2020-06-17 00:36] LABS: Bedside Glucose 204 mg/dL (70-110)
[2020-06-17 01:00] VITALS: BP 116/85; PULSE 89; RESP 12; O2SAT 95
[2020-06-17 01:40] LABS: Bedside Glucose 142 mg/dL (70-110)
[2020-06-17 01:55] LABS: Anion Gap 8 (5-15); BUN 54 mg/dL (7-18); Calcium,Total 9.3 mg/dL (8.5-10.1); Chloride 96 mmol/L (98-107); Creatinine, Serum 1.35 mg/dL (0.70-1.30); EST Glomerular Filtration Rate 57 mL/min (>60); Est Glom Filt Rate - Afr Amer 69 mL/min (>60); Estimated Creatinine Clearance 57.83 ml/min; Glucose 143 mg/dL (74-106); Sodium Level 132 mmol/L (136-145)
[2020-06-17] MEDS: 0.9% Normal Saline 1,000 ML 75 ML IV (02:30)
[2020-06-17] MEDS: Potassium Chloride Oral Tablet 20 MEQ PO (03:03)
[2020-06-17] MEDS: Levothyroxine 88 MCG Tablet PO (05:23)
[2020-06-17 05:24] VITALS: BP 138/81; PULSE 85; RESP 17; TEMP 36.6; O2SAT 98
[2020-06-17] MEDS: 0.9% Saline Lock 10 ML Syringe IV (08:02)
[2020-06-17] MEDS: Multivitamins,Ther W-Minerals Tablet 1 TABLET PO (08:02)
[2020-06-17] MEDS: proCHLORPERazine 10 MG/2 ML Vial 5 MG IV (08:02)
[2020-06-17] MEDS: Insulin Lispro 100 UNIT/ML INSULN.PEN 10 UNIT SC ×2 (08:11→12:06)
[2020-06-17] MEDS: Insulin Lispro 100 UNIT/ML INSULN.PEN SC ×2 (08:12→12:06)
[2020-06-17 08:17] VITALS: BP 137/82; PULSE 70; RESP 16; TEMP 36.4; O2SAT 99
[2020-06-17 08:26] LABS: Bedside Glucose 316 mg/dL (70-110)
[2020-06-17] MEDS: Enoxaparin 40 MG/0.4 ML Syringe SC (10:05)
[2020-06-17] MEDS: Insulin NPH Human 100 UNITS/ML PEN 15 UNITS SC (10:05)
--- NOTE | 2020-06-17 11:35 | CASEMGMT ---
Social Work SW to see pt for drug abuse. SW met with pt and introduced self and role of SW. Pt laying in bed and A&O and willing to talk with SW. Pt stating the he does use Fentanyl but not daily and that he has been through numerous drug treatment programs throughout the years. And while he is able to stay clean for awhile after the programs, it does not stick and he returns to using. Pt stating he was most recently connected to [facility] in [place] about 6 months ago. VAL attempted to talk to pt about area resources and offered to make an appointment with [facility]. Pt denies at this time but is accepting of written information on services available. SW provided resources on [facility], [facility], and compressive list of alcohol and drug treatment programs in [facility]. Pt accepted materials and thanked VAL. Denies any further needs at this time. JOYCE Ferris
[2020-06-17 11:49] LABS: Absolute Neutrophil Count 12.3 X10^3/uL (2.0-7.7); Basophil# 0.02 X10^3/uL; Basophil% 0.1 % (0-1); Eosinophil# 0.03 X10^3/uL; Eosinophils% 0.2 % (0-5); Hematocrit 37.4 % (40-54); Hemoglobin 12.9 g/dL (13.0-16.5); Lymphocyte % 12.1 % (19-41); Mean Corp Hgb Conc 34.5 g/dL (32-36); Mean Platelet Vol. 11.8 fl (6.2-12.0); Monocyte# 1.41 X10^3/uL; NRBC Flagged by Analyzer 0 % (0-5); Neutrophil # 12.27 X10^3/uL (2.7-7.7); Neutrophil % 78.1 % (47-70); Platelet Count 234 K/mm3 (150-450); RBC Distribution Width CV 12.9 % (11.6-14.6); White Blood Count 15.7 K/mm3 (4.4-11.0)
[2020-06-17 11:58] LABS: Anion Gap 8 (5-15); BUN 39 mg/dL (7-18); BUN/Creat Ratio 38.6 RATIO (10-20); Calcium,Total 8.5 mg/dL (8.5-10.1); Chloride 91 mmol/L (98-107); Creatinine, Serum 1.01 mg/dL (0.70-1.30); EST Glomerular Filtration Rate 79 mL/min (>60); Est Glom Filt Rate - Afr Amer 96 mL/min (>60); Estimated Creatinine Clearance 76.56 ml/min; Glucose 194 mg/dL (74-106); Potassium 3.6 mmol/L (3.5-5.1); Sodium Level 127 mmol/L (136-145)
--- NOTE | 2020-06-17 12:13 | CASEMGMT ---
RN CM POSTDOCTORAL FELLOW CM to room to meet with patient for initial transition planning/care coordination assessment. RN ALYSHA introduced self and role at [facility]. Pt voices understanding and consents to assessment at this time. Pt resting in bed in no distress at this time. Pt is A/O at this time and answers all questions appropriately. Care providers, pharmacy, and demographics verified/updated at this time. PCP: Dr Cadet Specialists: Dr Mode Mckeon--stage electrician, Dr Magallanes--Neurologist for 'pinched nerve Preferred Pharmacy: [facility] Insurance: [employer] Prescription Benefit: Yes Living Will/HPOA: States thinks he has completed these in the past but he is not sure and does know where the copies are. Provided information on advanced directives and given Social Service rac card with number to call if chooses in the future to utilize [facility] social work for advanced directive completion if he would like to do them again. Patient expresses understanding. LNOK: , Elif. 2 daughters Living Arrangements: Lives with his . 's brother and her dad both live with them. Pt states he is independent with ADL's. does most of the cooking. Pt manages his own medications, insulin, and appts. He states he has been compliant with taking his insulin/checking BS's. Transportation: Pt states he does not drive. 's brother provides the transportation and he gets their groceries, supplies, and medications for them. DME: Has a glucometer--states it is working properly and he has all the needed supplies for it. He gets supplies through the mail as needed. HHC/SNF: No history of either. Denies need for HHC. Pt wishes to return home and states has no concerns with going home at time of discharge. CM to follow for any discharge planning/needs. Pt voices no concerns/needs at this time. Advised pt to ask for CM if any questions/concerns/needs arise. Voices understanding. PLAN: Home w/family support and discharge plans in place. SW has met with pt for substance abuse. See note. Barry CHAUDHRYN JENELLE ENCARNACION
[2020-06-17 12:15] LABS: Bedside Glucose 190 mg/dL (70-110)
--- NOTE | 2020-06-17 13:06 | CPS ---
Gino lab work for the
--- NOTE | 2020-06-17 13:54 | DCINST_ITS ---
- Discharge Diagnoses Current Active Problems: Current Active and Chronic Problems Type 1 diabetes mellitus (Chronic) DKA (Acute) Opioid type dependence, abuse (Chronic) Polysubstance use (Chronic) Acute kidney injury (Acute) Increased anion gap metabolic acidosis (Acute) Hyperkalemia (Acute) Hypothyroidism (Chronic) Dyslipidemia (Chronic) DKA, type 1 (Acute) Sinus tachycardia seen on monitoring and evaluation advisor (Acute) Hyponatremia (Acute) Acute prerenal azotemia (Acute) Elevated serum creatinine (Acute) You will use the following diet at home:: Calorie/Carbohydrate Controlled (specify 1200, 1400, etc) - 1800 Your food should be the consistency of: Regular Your liquids should be the consistency of: Regular/Thin Discharge Activity: Return to Normal Activity Call your doctor if you observe: - - uncontrolled blood sugars, intractable nausea and/or vomiting. Allergies/Adverse Reactions: Allergies No Known Allergies Allergy (Verified 06/16/20 17:04) Medications to take at Discharge Aspirin 325 mg PO DAILY@0800 09/27/18 Insulin Regular, Human [Novolin R] 15 unit SC TIDCM 09/27/18 Levothyroxine [Synthroid] 88 mcg PO DAILY 09/27/18 Multivitamin with Minerals [Multiple Vitamin] 1 tab PO DAILY 09/27/18 Pravastatin [Pravachol] 80 mg PO DAILY 09/27/18 Insulin NPH Human Isophane [Novolin N] 15 units SC BID 06/16/20 Ondansetron [Zofran] 8 mg PO Q8H PRN PRN #30 tab 06/17/20 The following prescriptions were given: Ondansetron [Zofran] 8 mg PO Q8H PRN PRN #30 tab PRN Reason: nausea and vomiting Transmission Status: Pending to [facility] Primary Care Physician: Andrea Cadet MD [Primary Care Provider] - Within 2 Weeks Test Results: Test results from this visit will be discussed in further detail at your follow- up appointment, if applicable. Please Follow Up With: Patel Tuttle MD When: or another licensed mental health professional Proposed Discharge Date: 06/17/20
--- NOTE | 2020-06-17 13:56 | DS.PCM_ITS ---
Discharge Date and Diagnosis - Problem List Patient Problems: Active and Suspected Problems DKA (Acute) Acute kidney injury (Acute) Increased anion gap metabolic acidosis (Acute) Hyperkalemia (Acute) DKA, type 1 (Acute) Sinus tachycardia seen on cafeteria monitor (Acute) Hyponatremia (Acute) Acute prerenal azotemia (Acute) Elevated serum creatinine (Acute) Date of Admission: 06/16/20 Date of Discharge: 06/17/20 - Primary Discharge Diagnosis Acute Problems: Active Problems DKA (Acute) Acute kidney injury (Acute) Increased anion gap metabolic acidosis (Acute) Hyperkalemia (Acute) DKA, type 1 (Acute) Sinus tachycardia seen on cafeteria monitor (Acute) Hyponatremia (Acute) Acute prerenal azotemia (Acute) Elevated serum creatinine (Acute) - Secondary Discharge Diagnosis Chronic Problems: Chronic Problems Type 1 diabetes mellitus (Chronic) Opioid type dependence, abuse (Chronic) Polysubstance use (Chronic) Hypothyroidism (Chronic) Dyslipidemia (Chronic) Hospital Course and Treatment Imaging Results: Clinical Impression(s) from Imaging Studies Chest X-Ray 06/16/20 18:15 IMPRESSION: Hyperinflated lungs. Electronically Signed: Analisa Best MD at 18:48 EST Tel , Service support , Operations: None Procedures: None Summary of Care Provided: The patient is a 64 year old M who is a type I diabetic presents with intractable nausea and vomiting that been ongoing for weeks prior. Patient presented with diabetic ketoacidosis with a glucose of 696. Complicated by hyponatremia of 116, potassium of 5.2. Patient was started on insulin drip and did improve and was transitioned back to his normal regimen of NPH and NovoLog. Patient blood sugars have remained stable, his hyperkalemia resolved and actually did require potassium replacement and is feeling well. Patient does have hemoglobin A1c of 9.2. Recommend patient follow-up with endocrinology as outpatient. Patient discharged in stable condition. Patient did have issues with IV access and difficult blood draws. Consideration in the future could include central IV access patient does require hospitalization in the future for diabetic ketoacidosis or other issues. [] Patient Problems: Active and Suspected Problems DKA (Acute) Acute kidney injury (Acute) Increased anion gap metabolic acidosis (Acute) Hyperkalemia (Acute) DKA, type 1 (Acute) Sinus tachycardia seen on cafeteria monitor (Acute) Hyponatremia (Acute) Acute prerenal azotemia (Acute) Elevated serum creatinine (Acute) - Physical Exam Vitals/I&O's: Vital Signs Temp Pulse Resp BP Pulse Ox 36.4 C L 70 16 137/82 H 99 06/17/20 08:17 06/17/20 08:17 06/17/20 08:17 06/17/20 08:17 06/17/20 08:17 Oxygen Delivery Method Room Air Weight: 72.3 kg Body Mass Index (BMI) 23.2 Finger Stick Blood Glucose 142 Intake and Output for Last 24 Hours 06/15/20 06/16/20 06/17/20 23:59 23:59 23:59 Intake Total 1782.16 / 1932.16 3084.65 / 3084.65 Output Total 1175 / 1175 Balance 1782.16 / 1932.16 1909.65 / 1909.65 General: Alert, No apparent distress HEENT: Atraumatic, Normocephalic Oral: Moist Mucosa, No Gingival or Mucosal Lesions/ Ulcerations Neck: No Nodes, Thyroid Normal Size and Texture Lungs: Clear to auscultation, Normal air movement, No rhonchi, No wheeze Cardiovascular: Regular rate, Regular Rhythm, Normal S1, Normal S2, No murmurs Abdomen: Bowel Sounds Present, Soft, Non Tender, Non-Distended, No Hepato- splenomegaly Extremities: No edema, No Calf Tenderness Psych/Mental Status: Normal Affect, Appropriate Laboratory Results 06/16/20 18:29: WBC 16.3 H, RBC 5.98, Hgb 17.9 H, Hct 51.1, MCV 85.5, MCH 29.9, MCHC 35.0, RDW Std Deviation 38.4, RDW Coeff of Vaen 12.4, Plt Count 290, MPV 12.3 H, Immature Gran % (Auto) 1.100 H, Neut % (Auto) 89.1 H, Lymph % (Auto) 4.8 L, [place] % (Auto) 4.7, Eos % (Auto) 0.1, Baso % (Auto) 0.2, Absolute Neuts (auto) 14.5 H, Absolute Lymphs (auto) 0.79 L, Nucleated RBC % 0 06/16/20 18:29: Sodium 116 L*, Potassium 5.2 H, Chloride 74 L*, Carbon Dioxide 19.0 L, Anion Gap 23 H, BUN 68 H, Creatinine 1.99 H, Estim Creat Clear Calc 39.07, Est GFR (MDRD) Af Amer 44 L, Est GFR (MDRD) Non-Af 36 L, BUN/Creatinine Ratio 34.2 H, Glucose 696 H*, Calcium 10.1 06/16/20 18:29: Acetone Level MODERATE H 06/16/20 18:29: Hemoglobin A1c 9.2 H 06/16/20 18:37: POC Glucose > 500 H* 06/16/20 19:15: Urine Color Yellow, Urine Clarity Clear, Urine pH 5.0, Ur Specific [place] 1.015, Urine Protein 15 H, Urine Glucose (UA) 1000 H, Urine Ketones 50 H, Urine Occult Blood 10 H, Urine Nitrite Negative, Urine Bilirubin Negative, Urine Urobilinogen Normal, Ur Leukocyte Esterase Negative, Urine RBC 0 SEEN, Urine WBC 0 SEEN, Ur Squamous Epith Cells 0 SEEN, Urine Bacteria 0 SEEN, Urine Mucus 0 SEEN 06/16/20 19:15: Urine Osmolality 543 06/16/20 19:46: POC Glucose 449 H 06/16/20 20:30: POC Glucose 416 H 06/16/20 21:33: POC Glucose 332 H 06/16/20 22:40: POC Glucose 306 H 06/16/20 23:50: POC Glucose 216 H 06/17/20 00:32: POC Glucose 204 H 06/17/20 01:17: Sodium 132 L, Potassium TNP, Chloride 96 L, Carbon Dioxide 28.0, Anion Gap 8, BUN 54 H, Creatinine 1.35 H, Estim Creat Clear Calc 57.83, Est GFR (MDRD) Af Amer 69, Est GFR (MDRD) Non-Af 57 L, BUN/Creatinine Ratio 40.0 H, Glucose 143 H, Calcium 9.3 06/17/20 01:35: POC Glucose 142 H 06/17/20 08:08: POC Glucose 316 H 06/17/20 11:35: WBC 15.7 H, RBC 4.30 L, Hgb 12.9 L, Hct 37.4 L, MCV 87.0, MCH 30.0, MCHC 34.5, RDW Std Deviation 41.0, RDW Coeff of Vane 12.9, Plt Count 234, MPV 11.8, Immature Gran % (Auto) 0.500, Neut % (Auto) 78.1 H, Lymph % (Auto) 12.1 L, [place] % (Auto) 9.0, Eos % (Auto) 0.2, Baso % (Auto) 0.1, Absolute Neuts (auto) 12.3 H, Absolute Lymphs (auto) 1.90, Nucleated RBC % 0 06/17/20 11:35: Sodium 127 L, Potassium 3.6, Chloride 91 L, Carbon Dioxide 28.0, Anion Gap 8, BUN 39 H, Creatinine 1.01, Estim Creat Clear Calc 76.56, Est GFR (MDRD) Af Amer 96, Est GFR (MDRD) Non-Af 79, BUN/Creatinine Ratio 38.6 H, Glucose 194 H, Calcium 8.5 06/17/20 12:05: POC Glucose 190 H Current Medications Acetaminophen (Acetaminophen 325 Mg Tablet) 650 mg PO Q6H PRN PRN PRN Reason: Pain Score 1-10/Temp > 100.7 F Dextrose (Dextrose 50%-Water 25 Gm/50 Ml Disp.Syrin) 0 gm IV X1 PRN; Protocol PRN Reason: Hypoglycemia Enoxaparin Sodium (Enoxaparin 40 Mg/0.4 Ml Syringe) 40 mg SC DAILY [facility] Last Admin: 06/17/20 10:05 Dose: 40 mg Documented by: Glucagon (Glucagon 1 Mg/Ml Syringe) 1 mg IM .X1 PRN PRN Reason: Hypoglycemia Sodium Chloride () 1,000 mls @ 75 mls/hr IV .[id number] [facility] Last Infusion: 06/17/20 10:00 Dose: 75 mls/hr Documented by: Insulin Human Lispro (Insulin Lispro 100 Unit/Ml Insuln.Pen) 10 unit SC TIDCM [facility] Last Admin: 06/17/20 12:06 Dose: 10 u Documented by: Insulin Human Lispro (Insulin Lispro 100 Unit/Ml Insuln.Pen) 0 unit SC 4X/DAYCM [facility]; Protocol Last Admin: 06/17/20 12:06 Dose: 2 u Documented by: Insulin Human NPH (Insulin Nph Human 100 Units/Ml Pen) 15 units SC BID [facility] Last Admin: 06/17/20 10:05 Dose: 15 u Documented by: Levothyroxine Sodium (Levothyroxine 88 Mcg Tablet) 88 mcg PO DAILY@0600 [facility] Last Admin: 06/17/20 05:23 Dose: 88 mcg Documented by: Multivitamins/Minerals (Multivitamins,Ther W-Minerals Tablet) [facility] Last Admin: 06/17/20 08:02 Dose: 1 tablet Documented by: Nicotine (Nicotine 21 Mg Patch) 21 mg TD DAILY [facility] Last Admin: 06/17/20 10:06 Dose: 21 mg Documented by: Pravastatin Sodium (Pravastatin 80 Mg Tablet) 80 mg PO DAILY@2200 [facility] Prochlorperazine Edisylate (Prochlorperazine 10 Mg/2 Ml Vial) 5 mg IV Q4H PRN PRN PRN Reason: Breakthrough Nausea/Vomiting Last Admin: 06/17/20 08:02 Dose: 5 mg Documented by: Sodium Chloride (0.9% Saline Lock 10 Ml Syringe) 10 - 40 ml IV UD PRN PRN Reason: SALINE FLUSH Last Admin: 06/17/20 08:02 Dose: 10 ml Documented by: Discharge Diet: 1800 Calorie Control Diet Discharge Activity: Return to Normal Activity Call your doctor if you observe: - - uncontrolled blood sugars, intractable nausea and/or vomiting. Home Medications: Medications to take at Discharge Aspirin 325 mg PO DAILY@0800 09/27/18 Insulin Regular, Human [Novolin R] 15 unit SC TIDCM 09/27/18 Levothyroxine [Synthroid] 88 mcg PO DAILY 09/27/18 Multivitamin with Minerals [Multiple Vitamin] 1 tab PO DAILY 09/27/18 Pravastatin [Pravachol] 80 mg PO DAILY 09/27/18 Insulin NPH Human Isophane [Novolin N] 15 units SC BID 06/16/20 Ondansetron [Zofran] 8 mg PO Q8H PRN PRN #30 tab 06/17/20 Following Prescriptions Were Given to Patient: Ondansetron [Zofran] 8 mg PO Q8H PRN PRN #30 tab PRN Reason: nausea and vomiting Transmission Status: Pending to [facility] Primary Care Physician: Andrea Cadet MD [Primary Care Provider] - Within 2 Weeks Please Follow Up With: Patel Tuttle MD When: or another flight/transport nurse Disposition: Home Minutes spent on discharge:: 28 Patient Condition:: Good Medical Necessity - Tobacco Use Smoking Status: Current every day smoker Tobacco Use: Cigarettes Meaningful Use Info Meaningful Use Diagnoses (Choose all that apply): None applicable Inpatient E&M: 51038 Disch Hosp
[2020-06-17 13:59] VITALS: BP 120/70; PULSE 74; RESP 17; TEMP 36.2; O2SAT 97
[2020-06-17 16:12] VITALS: BP 120/70; PULSE 74; RESP 17; TEMP 36.2; O2SAT 97
--- NOTE | 2020-06-20 14:10 | CASEMGMT ---
JENELLE ENCARNACION Discharge Follow-Up Phone Call. Katy: 4 Strata: 1 Discharge Date: Adm Dx: DKA Call to pt to inquire about how he has been doing since being discharged from the hospital. Pt states he is doing a little better. He states states his BS's have been up and down and that they have been reading High at times and that he is taking insulin as instructed. He states with the insulin, the BS readings are coming down. He has an appt with his PCP tomorrow with Dr Cadet that he plans to go to and will address the BS levels with him at the appt. He also has an appt w/Dr Tuttle in August that he also plans to go to. He denies having any questions about the discharge instructions or medications. He did the Zofran prior to discharge and has needed to use it occasionally for nausea and states that it has been helping. He denies needs, questions, or concerns . JENELLE ENCARNACION thanked pt for choosing [facility].
== END 2020-06-17 16:10 | disposition home or self-care (01) | DRG 420 ==
LOC: ED 19:15 → ICU 06-17 07:01
PROVIDERS: Admitting Provider Hospitalist; Emergency Provider Emergency Medicine; PCP Family Medicine
DX: E10.10 Type 1 diabetes mellitus with ketoacidosis without coma (principal); N17.9 Acute kidney failure, unspecified; E87.5 Hyperkalemia; E87.1 Hypo-osmolality and hyponatremia; Z79.4 Long term (current) use of insulin; F17.210 Nicotine dependence, cigarettes, uncomplicated; E86.0 Dehydration; E10.22 Type 1 diabetes mellitus with diabetic chronic kidney disease; N18.9 Chronic kidney disease, unspecified; D72.829 Elevated white blood cell count, unspecified; D75.1 Secondary polycythemia; E03.9 Hypothyroidism, unspecified; R00.0 Tachycardia, unspecified; R94.31 Abnormal electrocardiogram [ECG] [EKG]; Z79.899 Other long term (current) drug therapy
CPT/HCPCS: 36600; 71045; 80048; 81001; 82009; 82962; 83036; 83935; 85025; 93005; 97802; 99285; J7030; A4216; C1751; J7799

== ENCOUNTER 2020-07-05 13:00 | Outpatient (RCR) | payer MEDICAID, SELFPAY ==
[2020-06-16 19:48] VITALS: BMI 23.2
[2020-07-05] MEDS: COVID-19 VACC, MRNA(PFIZER)/PF 30 MCG/0.3 ML SYRINGE IM (12:55)
[2020-07-26] MEDS: COVID-19 VACC, MRNA(PFIZER)/PF 30 MCG/0.3 ML SYRINGE IM (12:50)
== END 2020-10-04 23:59 ==
LOC: IMMUN 13:00
PROVIDERS: PCP Family Medicine; Referring Provider Family Medicine; Visit Provider Family Medicine
DX: Z23 Encounter for immunization (principal)
CPT/HCPCS: 0001A; 0002A; 91300

== ENCOUNTER 2024-08-28 02:20 | Emergency (ER) | payer MEDICARE, SELFPAY ==
[2024-08-28 02:21] VITALS: BP 174/85; PULSE 89; RESP 18; TEMP 36.9; O2SAT 94; BMI 28.5
--- NOTE | 2024-08-28 02:38 | EX.ED.DYSGE1 ---
HPI History of Present Illness Chief Complaint: Chest Other Detail of Chief Complaint: Bleeding from port site Informant: patient Narrative Narrative: Patient presents to the emergency department with bleeding from the dialysis port in his right chest. Patient states that he had it placed 2 days ago at [facility]. He cannot remember the name of the surgeon but states that he had an Romanian sounding name. Patient not on anticoagulation. He has not started dialysis yet. He denies any trauma to the area. [facility] Medical History (Updated 08/28/24 @ 04:[address] Ramana Huntley, DO) DKA Home Medications ?Medication ?Instructions ?Recorded ?Last Taken ?Type aspirin 325 mg tablet 325 mg PO DAILY@0800 heart health 09/27/18 06/16/20 History insulin regular human 100 unit/mL 15 unit subcut TIDCM diabeties 09/27/18 06/16/20 History injection solution (Novolin R Regular U-100 Insulin) levothyroxine 88 mcg tablet 88 mcg PO DAILY thyroid 09/27/18 06/16/20 History multivitamin with minerals 1 tab PO DAILY supplement 09/27/18 06/16/20 History (Multiple Vitamin-Minerals tablet) pravastatin 80 mg tablet 80 mg PO DAILY cholesterol 09/27/18 06/16/20 History insulin NPH isoph U-100 human 100 15 units subcut BID diabeties 06/16/20 5 Days Ago History unit/mL subcutaneous suspension ~06/11/20 ondansetron HCl 8 mg tablet 8 mg PO Q8H PRN PRN nausea and 06/17/20 Unknown Rx vomiting #30 tabs buprenorphine 8 mg-naloxone 2 mg 1.5 ea sublingual DAILY 08/28/24 Unknown History sublingual film pantoprazole 40 mg tablet,delayed 40 mg PO BID 08/28/24 Unknown History release Allergy/AdvReac Type Severity Reaction Status Date / Time No Known Allergies Allergy Verified 08/28/24 02:21 Social History Smoking Status: Former smoker ROS ROS ED ROS Narrative Bleeding from dialysis catheter right chest Review of Systems ROS Unobtainable: other Constitutional Constitutional ED: Reports lethargy; Denies chills, fever(s), sweats or weight loss Eyes Eyes: Denies blurry vision, change in vision or diplopia ENT ENT ED: Denies rhinorrhea or sore throat Cardiovascular Cardiovascular: Denies chest pain, orthopnea or racing heartbeat Respiratory/Chest Respiratory/Chest: Denies cough, dyspnea, dyspnea on exertion, orthopnea or sputum Gastrointestinal Gastrointestinal: Denies abdominal pain, diarrhea, nausea or vomiting Genitourinary Genitourinary ED: Denies dysuria, hematuria or urinary frequency Musculoskeletal Musculoskeletal: Denies arthralgias, back pain, myalgias or neck pain Integumentary Denies abscess, Abrasions or rash Neurologic Neurologic: Denies headache(s) or weakness Psychiatric Psychiatric: Denies anxiety, depression or suicidal thoughts Endocrine Endocrinology: Denies polydipsia, polyphagia or polyuria Hematologic/Lymphatic Hematologic/Lymphatic: Denies easy bleeding, easy bruising or lymphadenopathy Allergic/Immunologic Allergic/Immunologic ED: Denies mouth swelling, tongue swelling or urticaria EXAM Physical Exam Const Vital Signs: 08/28/24 02:21 08/28/24 04:20 Temperature 98.5 F Temperature Source Oral Pulse Rate 89 75 Respiratory Rate 18 18 Blood Pressure 174/85 H 157/78 H Blood Pressure Mean 114 104 Pulse Ox 94 92 Oxygen Delivery Method Room Air Room Air Positive well nourished and well developed General Appearance ED: well developed and NAD HEENT Reports TM's clear and moist mucous membranes normocephalic and atraumatic; Negative for trauma or tenderness Tympanic Membrane ED: Yes TM's clear Eyes PERRL and EOMs intact bilaterally General Eye ED: Negative for pale conjunctiva or scleral icterus Neck no lymphadenopathy, supple and no JVD General: Negative for tenderness Chest Wall inspection of chest normal and palpation of chest normal Chest Narrative: Right chest wall-patient has a dialysis catheter noted. There was saturated blood and clot around the catheter and dressing. I remove the dressing and note that he has small amount of oozing along the catheter where it enters the skin. Chest: Negative for tenderness Resp normal respiratory effort and clear to auscultation bilaterally Effort and Inspection: Negative for respiratory distress or pain with movement Auscultation: Negative for rhonchi, wheezes or diminished lung sounds Cardio regular rate, regular rhythm, S1 normal heart sound, S2 normal heart sound and no murmurs Peripheral Pulses: pulses 2+ throughout GI normal to inspection, nondistended, normoactive bowel sounds, soft to palpation, non-tender, non-distended and no masses Back/Spine no CVA tenderness and no thoracic nor lumbar tenderness Extremity normal to inspection General Extremety ED: Negative for edema General Extremity: Negative for edema Neuro oriented x3, CN's II-XII intact bilaterally, no sensory deficits noted and gait normal Sensorium / Orientation: awake, alert, oriented to person, oriented to place and oriented to time Motor Exam: strength 5/5 throughout and strength abnormal Psych mental status grossly normal Skin no rashes or lesions noted and no wounds MDM MDM MDM Narrative Medical decision making narrative: Patient with bleeding from dialysis catheter site. Will apply pressure. Will obtain a CBC and discussed with surgeon. CBC with differential showed a WBC count of 8.2 with hemoglobin 8.3 and platelet count of 202. Initially we attempted holding pressure for 20 minutes unsuccessfully as the catheter site continued to ooze. Discussed case with general surgeon on-call Dr. Villafana who presented to the emergency department to evaluate patient. Dr. Villafana was able to place a [id number] suture at the catheter exit site and obtain good hemostasis. Patient will be discharged to home as he has dialysis later today. Advised to return if persistent heavy bleeding or condition worsening way. Otherwise advised to follow-up with his general surgeon Lab Data Attestation: I reviewed the patient's lab results. Labs: Laboratory Results - last 24 hr 08/28/24 03:00 WBC 8.2 RBC 2.68 L Hgb 8.3 L Hct 25.5 L MCV 95.1 H MCH 31.0 MCHC 32.5 RDW Std Deviation 49.9 H RDW Coeff of Vane 15.2 H Plt Count 202 MPV 9.6 Immature Gran % (Auto) 0.700 Neut % (Auto) 73.9 H Lymph % (Auto) 15.1 L [place] % (Auto) 7.3 Eos % (Auto) 1.8 Baso % (Auto) 1.2 H Absolute Neuts (auto) 6.0 Absolute Lymphs (auto) 1.23 Nucleated RBC % 0 Discharge Plan Triage Chief Complaint: Chest Other ED Provider: Ramana Huntley Dx/Rx/DC Orders Clinical Impression: Post-op bleeding Instructions: ED Post Op Wound Check, Bleeding Prescriptions: No Action aspirin 325 MG tablet 325 mg PO DAILY@0800 levothyroxine 88 MCG tablet 88 mcg PO DAILY pravastatin 80 MG tablet 80 mg PO DAILY Novolin R Regular U100 Insulin 100 UNIT/ML solution 15 unit subcut TIDCM Multiple Vitamin-Minerals 1 EACH tablet 1 tab PO DAILY insulin NPH isoph U-100 human 100 UNIT/ML suspension 15 units SC BID ondansetron HCl 8 MG tablet 8 mg PO Q8H PRN PRN (Reason: nausea and vomiting) Qty: 30 0RF pantoprazole 40 mg tablet,delayed release (DR/EC) 40 mg PO BID buprenorphine-naloxone 8-2 mg film 1.5 ea sublingual DAILY Primary Care Provider: Andrea Cadet Referrals: Andrea Cadet MD [Primary Care Provider] - Activity Restrictions/Additional Instructions: Follow-up with your general surgeon with any further issues Print Language: [place] Disposition Disposition: Home, Self Care
[2024-08-28 03:08] LABS: Absolute Lymphocyte Count 1.23 X10^3/uL (0.83-4.51); Basophil% 1.2 % (0-1); Eosinophil# 0.15 X10^3/uL; Eosinophils% 1.8 % (0-5); Hematocrit 25.5 % (40-54); Hemoglobin 8.3 g/dL (13.0-16.5); Lymphocyte # 1.23 X10^3/ul (0.83-4.51); Lymphocyte % 15.1 % (19-41); Mean Corp Hgb Conc 32.5 g/dL (32-36); Mean Corpuscular Volume 95.1 fL (80-94); Mean Platelet Vol. 9.6 fl (6.2-12.0); Monocyte% 7.3 % (0-10); NRBC Flagged by Analyzer 0 % (0-5); Neutrophil # 6.03 X10^3/uL (2.7-7.7); Neutrophil % 73.9 % (47-70); POSITIVE COUNT YES; RBC Distribution Width CV 15.2 % (11.6-14.6); RBC Distribution Width SD 49.9 fl (35.1-43.9); Red Blood Count 2.68 M/mm3 (4.6-6.2); White Blood Count 8.2 K/mm3 (4.4-11.0)
[2024-08-28 03:23] LABS: Differential Indicated SCAN CRITERIA MET
[2024-08-28 03:59] LABS: Platelet Count 202 K/mm3 (150-450)
[2024-08-28 04:20] VITALS: BP 157/78; PULSE 75; RESP 18; O2SAT 92
[2024-08-28 04:32] VITALS: BP 157/78; PULSE 79; RESP 18; TEMP 36.6; O2SAT 94
--- NOTE | 2024-08-28 04:32 | PCM.HP.STD ---
HPI - General HPI Narrative ABRAHAM TARIQ, is a 68 M who presents to [facility] with complaints of sudden onset bleeding from a tunnel exit site for a tunneled hemodialysis catheter placed by Dr. Lezama on 08/26/2024. Patient's reporting that he awoke at approximately 1:00 this morning with a cold wet spot over his right chest. He describes otherwise being in a state of rest and had no point of the catheter. He also reports that this is the first he has had any issues with the catheter since its placement 2 days ago. He confirms that he was due to start dialysis yesterday but had difficulty in finding the dialysis center and so he was ultimately rescheduled for later today. ER evaluation included repeat CBC that showed patient's hemoglobin to be largely stable at 8.3 (from 8.7). Emergency medicine had reportedly tried to place pressure over the site but was unable to secure hemostasis so I was notified. Patient notably mildly to moderately hypertensive in the emergency department with systolic blood pressures ranging from 160-170 mmHg [facility] Medical History (Updated 08/28/24 @ 04:[address] Jeffery Villafana MD) DKA Home Medications ?Medication ?Instructions ?Recorded ?Last Taken ?Type aspirin 325 mg tablet 325 mg PO DAILY@0800 heart health 09/27/18 06/16/20 History insulin regular human 100 unit/mL 15 unit subcut TIDCM diabeties 09/27/18 06/16/20 History injection solution (Novolin R Regular U-100 Insulin) levothyroxine 88 mcg tablet 88 mcg PO DAILY thyroid 09/27/18 06/16/20 History multivitamin with minerals 1 tab PO DAILY supplement 09/27/18 06/16/20 History (Multiple Vitamin-Minerals tablet) pravastatin 80 mg tablet 80 mg PO DAILY cholesterol 09/27/18 06/16/20 History insulin NPH isoph U-100 human 100 15 units subcut BID diabeties 06/16/20 5 Days Ago History unit/mL subcutaneous suspension ~06/11/20 ondansetron HCl 8 mg tablet 8 mg PO Q8H PRN PRN nausea and 06/17/20 Unknown Rx vomiting #30 tabs buprenorphine 8 mg-naloxone 2 mg 1.5 ea sublingual DAILY 08/28/24 Unknown History sublingual film pantoprazole 40 mg tablet,delayed 40 mg PO BID 08/28/24 Unknown History release Allergy/AdvReac Type Severity Reaction Status Date / Time No Known Allergies Allergy Verified 08/28/24 02:21 Social History Smoking Status: Former smoker Vital Signs Vital Signs Vital Signs: 08/28/24 02:21 08/28/24 04:20 Temperature 98.5 F Temperature Source Oral Pulse Rate 89 75 Respiratory Rate 18 18 Blood Pressure 174/85 H 157/78 H Blood Pressure Mean 114 104 Pulse Ox 94 92 Oxygen Delivery Method Room Air Room Air Weight Weight: 199 lb 1.239 oz Body Mass Index (BMI) 28.5 Physical Exam Const alert and oriented x3 Neck Neck Narrative: Insertion site of catheter shows no bulging or fluctuance and operative dressing remains intact Chest Chest Narrative: Tunneled right chest wall catheter present in right chest with no visible hemorrhage at this time. Operative dressing has been taken down over this area. There is adherent clot around the tunnel exit site and streaming down patient's right chest wall. There is no erythema or ecchymotic changes about the catheter site otherwise Results Lab / Micro Data 08/28/24 03:00 Labs: Laboratory Results - last 24 hr 08/28/24 03:00: WBC 8.2, RBC 2.68 L, Hgb 8.3 L, Hct 25.5 L, MCV 95.1 H, MCH 31.0, MCHC 32.5, RDW Std Deviation 49.9 H, RDW Coeff of Vane 15.2 H, Plt Count 202, MPV 9.6, Immature Gran % (Auto) 0.700, Neut % (Auto) 73.9 H, Lymph % (Auto) 15.1 L, [place] % (Auto) 7.3, Eos % (Auto) 1.8, Baso % (Auto) 1.2 H, Absolute Neuts (auto) 6.0, Absolute Lymphs (auto) 1.23, Nucleated RBC % 0 Assessment & Plan Assessment/Plan (1) Complication of dialysis access insertion: QUALIFIERS: Encounter type: subsequent encounter Qualified Code(s): T82.9XXD - Unspecified complication of cardiac and vascular prosthetic device, implant and graft, subsequent encounter PLAN: Patient is 68-year-old male with recent DAVEY worsening to the point that he requires initiation of hemodialysis via right tunneled chest wall catheter who has experienced spontaneous bleeding from the catheter tunnel site after initial uneventful postoperative course since procedure 08/26/2024. I find it unusual that the patient has gone nearly 48 hours without issue and the bleeding started suddenly while he was at rest. He is noted to be moderately hypertensive in the ER and this could be a contributing factor. His hypertension may be at least in part attributable to the fact that he was unable to start dialysis as scheduled yesterday due to inability to find the center. He is, however, due to start today. On evaluation patient's bleeding has stopped and clearly was coming from his tunnel exit site. Therefore, I took measures to clean off any adherent clot, prepped the catheter exit site, anesthetized the skin at the catheter exit site (1 mL of 1% lidocaine with epinephrine), and then placed a single [id number] suture on either side of the catheter exit as a means of creating a cerclage about the exit site. Patient tolerated this minor procedure without difficulty. I then redressed the catheter with a chlorhexidine gel dressing. Given that there is no further bleeding and this suture should help tamponade any further risk I approved the patient for dismissal from the ER. I was further reassured by the fact that he will have proximity to medical care with pending dialysis session later today. Mr. Tariq expressed appreciation for the care. Jeffery Villafana MD General Surgery Endocrine Surgery Pager: [facility] [address] [place] [address], [address] [place] [address] Office: [phone] Charges/Coding Visit Charges Office Visits / Consults: [id number] ED Visit; Moderate Severity
[2024-08-28] MEDS: Lidocaine 1% /Epi 1:100 (20ml) 20 ML Vial 10 ML INFILT (04:36)
== END 2024-08-28 04:41 | disposition home or self-care (01) ==
PROVIDERS: Emergency Provider Emergency Medicine; PCP Family Medicine; Visit Provider Emergency Medicine
DX: T82.838A 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, implants and grafts, initial encounter (principal); E11.9 Type 2 diabetes mellitus without complications; Z95.5 Presence of coronary angioplasty implant and graft; Z87.891 Personal history of nicotine dependence; Y71.8 Miscellaneous cardiovascular devices associated with adverse incidents, not elsewhere classified; Z99.2 Dependence on renal dialysis
CPT/HCPCS: 85025; 99282; A4216

== ENCOUNTER 2024-10-24 12:52 | Inpatient (IN) | payer MEDICARE, SELFPAY ==
[2024-10-24] VITALS (14 sets, daily range): BP systolic 142–160; BP diastolic 73–104; PULSE 100–124; RESP 18–26; TEMP 35.9–37.6; O2SAT 92–99; BMI 25.1; BMI 23.6
--- NOTE | 2024-10-24 12:56 | EKG12_ITS ---
Test Reason : CP Blood Pressure : */* mmHG Vent. Rate : 114 BPM Atrial Rate : 114 BPM P-R Int : 196 ms QRS Dur : 96 ms QT Int : 322 ms P-R-T Axes : 73 59 48 degrees QTcB Int : 443 ms Sinus tachycardia with frequent Premature ventricular complexes Cannot rule out Inferior infarct , age undetermined Cannot rule out Anterior infarct , age undetermined Abnormal ECG Confirmed by SHASTA MCKENNA, MARIZOL ([id number]), content editor DAMI BONNER ([id number]) on 10/27/2024 6:40:43 AM Referred By: Austin Hannon Confirmed By: MARIZOL VEGAS MD
[2024-10-24 13:07] LABS: Absolute Lymphocyte Count 0.78 X10^3/uL (0.83-4.51); Absolute Neutrophil Count 23.1 X10^3/uL (2.0-7.7); Basophil# 0.07 X10^3/uL; Basophil% 0.3 % (0-1); Hematocrit 46.7 % (40-54); Lymphocyte # 0.78 X10^3/ul (0.83-4.51); Lymphocyte % 3.1 % (19-41); Mean Corp Hgb Conc 34.3 g/dL (32-36); Mean Corpuscular Hgb 30.7 pg (27.0-32.0); Mean Corpuscular Volume 89.6 fL (80-94); Mean Platelet Vol. 11.7 fl (6.2-12.0); Monocyte# 1.15 X10^3/uL; Monocyte% 4.6 % (0-10); NRBC Flagged by Analyzer 0 % (0-5); Neutrophil # 23.05 X10^3/uL (2.7-7.7); Neutrophil % 91.3 % (47-70); POSITIVE DIFFERENTIAL YES; Platelet Count 303 K/mm3 (150-450); RBC Distribution Width CV 12.7 % (11.6-14.6); RBC Distribution Width SD 41.6 fl (35.1-43.9); Red Blood Count 5.21 M/mm3 (4.6-6.2); White Blood Count 25.2 K/mm3 (4.4-11.0)
--- NOTE | 2024-10-24 13:12 | RAD_ITS ---
PROCEDURE: CHEST 1 VIEW (PORTABLE) 10/24/2024 REASON FOR EXAM: CHEST PAIN TECHNIQUE: Frontal view of the chest. COMPARISON: 08/26/24 FINDINGS: No focal consolidation. No pleural effusion or pneumothorax. Cardiac silhouette is within normal limits. RAD/Chest 1 View (Portable) IMPRESSION: No focal consolidations. Reading Location: [id number]
[2024-10-24 13:13] LABS: Differential Indicated SCAN CRITERIA MET
--- NOTE | 2024-10-24 13:35 | CT_ITS ---
PROCEDURE: ABDOMEN/PELVIS W IV CONT ONLY 10/24/2024 REASON FOR EXAM: ABD PAIN TECHNIQUE: ABDOMEN/PELVIS W IV CONT ONLY Coronal and Sagittal reconstruction series were provided. CONTRAST: Isovue 370 VOLUME: 100 mL One or more dose reduction techniques were used (e.g., Automated exposure control, adjustment of the mA and/or kV according to patient size, use of iterative reconstruction technique. RADIATION DOSE SUMMARY: DLP: 700 mGycm COMPARISON: CTA chest abdomen pelvis 08/11/2024. FINDINGS: Lung bases: Right pleural effusion and bibasilar atelectasis. Unchanged severe circumferential wall thickening of the distal esophagus. Liver: Normal in size without suspicious hepatic mass. The major portal veins are patent. No biliary ductal dilation. Stable CBD stent. Punctate pneumobilia, unchanged since prior examination. Gallbladder: Soft tissue density within the dependent gallbladder measuring 1.0 cm (series 2, image 33), which is unchanged since prior examination. No gallbladder wall thickening or pericholecystic fluid. Spleen: Normal in size. Pancreas: Mildly atrophic. Adrenals: No adrenal mass. Kidneys: No hydronephrosis or nephrolithiasis. Bladder: Mildly distended with indwelling Henning catheter. Nondependent intraluminal air, likely secondary to recent instrumentation. Reproductive Organs: Unremarkable. Bowel: Unchanged subtle gastric wall thickening. The bowel loops are nondilated. Mild wall thickening of the distal sigmoid colon. No ascites or free air. Normal appendix. Lymph nodes: No suspicious lymph node enlargement. Vasculature: Moderate mixed plaque of the aortoiliac vessels. Bones: Postsurgical changes of the left inferior pubic ramus, unchanged. Thoracolumbar spondylosis. CT/Abdomen/Pelvis W IV Cont ONLY IMPRESSION: 1. Wall thickening of the distal sigmoid colon, compatible with colitis. 2. Persistent severe circumferential wall thickening of the distal esophagus, w hich may reflect esophagitis or esophageal neoplasm. Correlation with upper endoscopy if not recently performed is recomm ended for further evaluation. 3. Unchanged subtle gastric wall thickening, which may represent gastritis. Reading Location: [id number]
--- NOTE | 2024-10-24 13:35 | EX.ED.GENINJ ---
HPI History of Present Illness Chief Complaint: Nausea/Vomiting Narrative Narrative: Patient is a 68-year-old male with past medical history of diabetes, polysubstance abuse, hypothyroidism, history of GI bleed who presents to the emergency department with a chief complaint of nausea vomiting not feeling well. He states that he is been feeling sick for about 3 days now he notes that he has been taking his insulin as prescribed. Denies any sick contacts. Patient denies any black dark tarry stools denies any coffee-ground emesis. Patient does complain of some diffuse abdominal pain as well. [facility] Medical History Diabetes DKA Home Medications ?Medication ?Instructions ?Recorded ?Last Taken ?Type aspirin 325 mg tablet 325 mg PO DAILY@0800 heart health 09/27/18 06/16/20 History insulin regular human 100 unit/mL 15 unit subcut TIDCM diabeties 09/27/18 06/16/20 History injection solution (Novolin R Regular U-100 Insulin) levothyroxine 88 mcg tablet 88 mcg PO DAILY thyroid 09/27/18 06/16/20 History multivitamin with minerals 1 tab PO DAILY supplement 09/27/18 06/16/20 History (Multiple Vitamin-Minerals tablet) pravastatin 80 mg tablet 80 mg PO DAILY cholesterol 09/27/18 06/16/20 History insulin NPH isoph U-100 human 100 15 units subcut BID diabeties 06/16/20 5 Days Ago History unit/mL subcutaneous suspension ~06/11/20 ondansetron HCl 8 mg tablet 8 mg PO Q8H PRN PRN nausea and 06/17/20 Unknown Rx vomiting #30 tabs buprenorphine 8 mg-naloxone 2 mg 1.5 film sublingual DAILY opoid 08/12/24 Unknown History sublingual film dependence insulin glargine 100 unit/mL (3 18 unit subcut QHS diabetes 08/12/24 Unknown History mL) subcutaneous pen (Lantus Solostar U-100 Insulin) insulin lispro 100 unit/mL 14 unit subcut TIDCM diabetes 08/12/24 Unknown History subcutaneous pen levothyroxine 125 mcg tablet 125 mcg PO DAILY thyroid 08/12/24 Unknown History rosuvastatin 40 mg tablet 40 mg PO DAILY cholesterol 08/12/24 Unknown History ondansetron 4 mg disintegrating 4 mg PO Q6H PRN nausea and 08/26/24 Unknown Rx tablet vomiting #30 tabs pantoprazole 40 mg tablet,delayed 40 mg PO BID 30 days #60 tabs 08/26/24 Unknown Rx release buprenorphine 8 mg-naloxone 2 mg 1.5 ea sublingual DAILY 08/28/24 Unknown History sublingual film pantoprazole 40 mg tablet,delayed 40 mg PO BID 08/28/24 Unknown History release Allergy/AdvReac Type Severity Reaction Status Date / Time No Known Allergies Allergy Verified 09/16/24 08:05 Social History housing: house Smoking Status: Former smoker ROS ROS ED ROS Narrative Constitutional: Denies headache, fevers, chills Eyes: Denies change in vision double vision blurry vision Cardiovascular: Denies chest pain or palpitations Respiratory: Denies coughing wheezing shortness of breath Abdomen: Complains of abdominal pain as noted above as well as nausea vomiting : Denies urinary symptoms Neurological: Denies any numbness, weakness, tingling Musculoskeletal: Denies back pain Skin: Denies any rashes or lesions EXAM Physical Exam Narrative Exam Narrative: General: Patient lying in bed rest comfortably did not appear to be acute distress Head: Atraumatic, normocephalic Eyes: PERRL bilaterally, EOMI bilateral, no conjunctival injection noted Neck: Soft, supple, trachea midline Cardiovascular: Patient tachycardic with a regular rhythm Respiratory: Clear to auscultation bilaterally Abdomen: Soft, nondistended, diffuse tenderness to palpation, no rebound or guarding on exam Extremities: +5/5 strength noted in the bilateral upper and lower extremities, radial pulses +2/4 in the bilateral extremities Neurological: Patient following commands knew that he was at [facility] year is 2024 Skin: Warm, dry, intact no rashes or lesions noted Const Vital Signs: 10/24/24 12:53 10/24/24 13:06 10/24/24 13:49 Temperature 96.6 F L Temperature Source Temporal Pulse Rate 124 H Respiratory Rate 26 H Blood Pressure 149/104 H Blood Pressure Mean 119 Pulse Ox 99 98 Oxygen Delivery Method Room Air Room Air Room Air 10/24/24 14:52 10/24/24 14:54 10/24/24 16:00 Temperature 98 F Temperature Source Pulse Rate 110 H 110 H 108 H Respiratory Rate 22 H 22 H 25 H Blood Pressure 157/101 H 157/101 H 157/73 H Blood Pressure Mean 119 119 101 Pulse Ox 95 95 98 Oxygen Delivery Method MDM MDM MDM Narrative Medical decision making narrative: Patient is a 68-year-old male who presented to the emergency department chief complaint of nausea vomiting not feeling well. On the differential diagnosis includes but not limited to diabetic ketoacidosis, HHS, cholecystitis, pancreatitis, bowel obstruction, ACS. Once workup is obtained reviewed he will be reevaluated. Patient's blood glucose per bedside glucose testing is reading high he will be given 30 cc/kg bolus of IV fluids this was ordered at 1325. Patient be given 15 units of insulin. Patient's CBC was significant for leukocytosis of 25,000, hemoglobin of 16, platelet count normal at 303. Patient's venous blood gas showed a pH 7.50 indicating alkalosis, sodium was 131 this is likely falsely low indicating pseudohyponatremia secondary to his hyperglycemia, potassium was 6.5 which was noted to be hemolyzed this will be repeated,, dioxide low at 15.8 with a anion gap of 27. Patient's creatinine was 1.40 glucose noted be 522. Patient's lactic acid elevated 2.7, troponin normal at 17, EKG reviewed and showed sinus tachycardia with PVCs noted with a rate of 114 bpm. Patient beta-hydroxybutyrate elevated at 6.6, urinalysis showed ketones positive nitrite negative leukocyte esterase no evidence of infection. Patient chest x-ray reviewed by myself by radiology showed no focal consolidations. Patient CT abdomen pelvis IV contrast showed wall thickening of the distal sigmoid colon compatible with colitis persistent severe circumferential wall thickening in the distal esophagus which may reflect esophagitis or esophageal neoplasm correlation with upper endoscopy if not recently performed is recommended. Unchanged subtle gastric wall thickening may represent gastritis. Patient was given 15 units of subcutaneous insulin he was placed on insulin drip. Patient's case will be discussed with hospitalist for admission. Read the operative note from 08/12/[address] Graff with for upper GI endoscopy which showed grade D erosive esophagitis with bleeding which was treated with heater probe. Nonbleeding gastric ulcers with no stigmata of bleeding. Acute duodenitis no specimens collected. Patient will be given Protonix. Discussed case with hospitalist Dr. Martin who accept patient for admission to the intensive care unit. Patient was notified is agreeable this plan. Critical care time 47 minutes Lab Data Labs: Laboratory Results - last 24 hr 10/24/24 10/24/24 10/24/24 13:02 13:29 13:46 WBC 25.2 H RBC 5.21 Hgb 16.0 Hct 46.7 MCV 89.6 MCH 30.7 MCHC 34.3 RDW Std Deviation 41.6 RDW Coeff of Vane 12.7 Plt Count 303 MPV 11.7 Immature Gran % (Auto) 0.700 Neut % (Auto) 91.3 H Lymph % (Auto) 3.1 L [place] % (Auto) 4.6 Eos % (Auto) 0.0 Baso % (Auto) 0.3 Absolute Neuts (auto) 23.1 H Absolute Lymphs (auto) 0.78 L Nucleated RBC % 0 Platelet Estimate A PT 12.8 INR 1.0 APTT 26.8 Sodium Cancelled Potassium Cancelled Chloride Cancelled Carbon Dioxide Cancelled Anion Gap Cancelled BUN Cancelled Creatinine Cancelled Estim Creat Clear Calc Cancelled Est GFR (MDRD) Non-Af Cancelled BUN/Creatinine Ratio Cancelled Glucose Cancelled Lactic Acid Calcium Cancelled Troponin T High Sens Cancelled b-Hydroxybutyric mmol/L Urine Color Urine Clarity Urine pH Ur Specific [place] Urine Protein Urine Glucose (UA) Urine Ketones Urine Occult Blood Urine Nitrite Urine Bilirubin Urine Urobilinogen Ur Leukocyte Esterase Urine RBC Urine WBC Ur Squamous Epith Cells Urine Bacteria Urine Mucus POC Glucose > 500 H* 10/24/24 10/24/24 10/24/24 14:12 14:21 14:53 WBC RBC Hgb Hct MCV MCH MCHC RDW Std Deviation RDW Coeff of Vane Plt Count MPV Immature Gran % (Auto) Neut % (Auto) Lymph % (Auto) [place] % (Auto) Eos % (Auto) Baso % (Auto) Absolute Neuts (auto) Absolute Lymphs (auto) Nucleated RBC % Platelet Estimate PT INR APTT Sodium 131 L Potassium 6.5 H* Chloride 88 L Carbon Dioxide 15.8 L Anion Gap 27 H BUN 44 H Creatinine 1.40 H Estim Creat Clear Calc 52.87 Est GFR (MDRD) Non-Af 55 L BUN/Creatinine Ratio 31.4 H Glucose 522 H* Lactic Acid 2.7 H* Calcium 8.4 Troponin T High Sens 17 D b-Hydroxybutyric mmol/L 6.6 H Urine Color Yellow Urine Clarity Clear Urine pH 6.0 Ur Specific [place] 1.030 Urine Protein 100 H Urine Glucose (UA) 1000 H Urine Ketones 150 A* Urine Occult Blood 50 H Urine Nitrite Positive H Urine Bilirubin Negative Urine Urobilinogen Normal Ur Leukocyte Esterase Negative Urine RBC 0-5 SEEN Urine WBC 0 SEEN Ur Squamous Epith Cells 0 SEEN Urine Bacteria 0 SEEN Urine Mucus 0 SEEN POC Glucose 10/24/24 15:30 WBC RBC Hgb Hct MCV MCH MCHC RDW Std Deviation RDW Coeff of Vane Plt Count MPV Immature Gran % (Auto) Neut % (Auto) Lymph % (Auto) [place] % (Auto) Eos % (Auto) Baso % (Auto) Absolute Neuts (auto) Absolute Lymphs (auto) Nucleated RBC % Platelet Estimate PT INR APTT Sodium Potassium Chloride Carbon Dioxide Anion Gap BUN Creatinine Estim Creat Clear Calc Est GFR (MDRD) Non-Af BUN/Creatinine Ratio Glucose Lactic Acid Calcium Troponin T High Sens b-Hydroxybutyric mmol/L Urine Color Urine Clarity Urine pH Ur Specific [place] Urine Protein Urine Glucose (UA) Urine Ketones Urine Occult Blood Urine Nitrite Urine Bilirubin Urine Urobilinogen Ur Leukocyte Esterase Urine RBC Urine WBC Ur Squamous Epith Cells Urine Bacteria Urine Mucus POC Glucose 484 H* ABG Data ABG results: ABG 10/24/24 13:48 Specimen Type AMBROSIO Sample Site Not entered VBG pH 7.50 H VBG pO2 65 H VBG HCO3 18 L VBG Total CO2 19 L VBG O2 Sat (Calc) 95 H VBG Base Excess -5 L POC Mix VBG pCO2 Pt Tmp 23.4 L O2 Delivery Device Room Air Radiography Diagnostic Testing: Clinical Impression(s) from Imaging Studies Chest X-Ray 10/24/24 13:12 IMPRESSION: No focal consolidations. Reading Location: [facility] Abdomen/Pelvis CT 10/24/24 13:35 IMPRESSION: 1. Wall thickening of the distal sigmoid colon, compatible with colitis. 2. Persistent severe circumferential wall thickening of the distal esophagus, which may reflect esophagitis or esophageal neoplasm. Correlation with upper endoscopy if not recently performed is recommended for further evaluation. 3. Unchanged subtle gastric wall thickening, which may represent gastritis. Reading Location: [facility] Discharge Plan Triage Chief Complaint: Nausea/Vomiting ED Provider: Austin Hannon Dx/Rx/DC Orders Clinical Impression: DKA (diabetic ketoacidosis), Nausea and vomiting, Abdominal pain Prescriptions: No Action aspirin 325 MG tablet 325 mg PO DAILY@0800 levothyroxine 88 MCG tablet 88 mcg PO DAILY pravastatin 80 MG tablet 80 mg PO DAILY Novolin R Regular U100 Insulin 100 UNIT/ML solution 15 unit subcut TIDCM Multiple Vitamin-Minerals 1 EACH tablet 1 tab PO DAILY insulin NPH isoph U-100 human 100 UNIT/ML suspension 15 units SC BID ondansetron HCl 8 MG tablet 8 mg PO Q8H PRN PRN (Reason: nausea and vomiting) Qty: 30 0RF insulin glargine [Lantus Solostar U-100 Insulin] 100 unit/mL (3 mL) insulin pen 18 unit subcut QHS insulin lispro 100 unit/mL insulin pen 14 unit subcut TIDCM levothyroxine 125 mcg tablet 125 mcg PO DAILY rosuvastatin 40 mg tablet 40 mg PO DAILY buprenorphine-naloxone 8-2 mg film 1.5 film sublingual DAILY pantoprazole 40 mg Tablet,Delayed Release (Dr/Ec) 40 mg PO BID 30 Days Qty: 60 0RF ondansetron 4 mg tablet,disintegrating 4 mg PO Q6H PRN (Reason: nausea and vomiting) Qty: 30 0RF pantoprazole 40 mg tablet,delayed release (DR/EC) 40 mg PO BID buprenorphine-naloxone 8-2 mg film 1.5 ea sublingual DAILY Primary Care Provider: Andrea Cadet Referrals: Andrea Cadet MD [Primary Care Provider] - Print Language: American Disposition Disposition: Acute Care Hospital [facility]
[2024-10-24 13:48] LABS: Bedside Glucose > 500 mg/dL (74-106)
[2024-10-24 13:52] LABS: Blood Gas Specimen Type VEN; O2 Delivery Device Room Air; SITE Not entered; VBG BASE EXCESS -5 mmol/L (-1.0-3.5); VBG Bicarbonate 18 mmol/L (22-26); VBG PO2 65 mmHg (25-40); VBG SO2 95 % (50-70); VBG TCO2 19 mmol/L (23-33); VBG pCO2 23.4 mmHg (41-51)
[2024-10-24 14:03] LABS: Platelet Estimate A (ADEQ)
[2024-10-24] MEDS: Insulin Lispro 100 UNIT/ML INSULN.PEN 15 UNIT SC (14:03)
[2024-10-24] MEDS: 0.9% Normal Saline (1000mL) 1,000 ML 999 ML IV ×3 (14:05→16:15)
[2024-10-24 14:07] LABS: Partial Thromboplast Time 26.8 Seconds (24.1-36.2); Prothrombin Time (Protime)PT. 12.8 SECONDS (11.7-14.9)
[2024-10-24 14:28] LABS: Bacteria 0 SEEN /hpf (None Seen); Mucous, Urine 0 SEEN /hpf (<or=2+); Squamous Epithelial Cells - UA 0 SEEN /hpf (0-5); White Blood Cells 0 SEEN /hpf (0-5)
[2024-10-24 14:40] LABS: Color, Urine Yellow (Yellow); Glucose, Dipstick 1000 mg/dl (Normal); Leukocyte Esterase-Dipstick Negative /ul (Negative); Nitrite-Dipstick Positive (Negative); Occult Blood-Urine 50 /ul (Negative); Protein-Dipstick 100 mg/dl (Negative); Urine Bilirubin Dipstick Negative (Negative); Urine Clarity Clear (Clear); Urine Urobilinogen Normal (Normal)
[2024-10-24 14:41] LABS: Ketone-Dipstick 150 mg/dl (Negative)
--- OUTSIDE RECORDS SUMMARY | 2024-10-24 14:46 | XMS RPT_ITS | CCD ---
Author Organization [facility] CliniSy[facility] Care Team Providers Care Statement Processor Name Role Phone JAVAN MCKEON Unavailable Unavailable VERO VIVAR Unavailable Unavailable ANDREA LR Unavailable Unavailable Andrea Lr Primary Care Provider [phone] Andrea Lr MD Primary Care Provider AUSTIN RODRIGUEZ Attending Unavailable PROVIDER, UNKNOWN Referring Unavailable Andrea Lr Primary Care Unavailable PROVIDER, UNKNOWN Referring Unavailable Alvin Hernandez Attending Unavailable Andrea Lr Primary Care Unavailable Andrea Lr Primary Care Unavailable Andrea Lr Attending Unavailable PROVIDER, UNKNOWN Referring Unavailable PROVIDER, UNKNOWN Referring Unavailable Holden Castillo Attending Unavailable Andrea Lr Primary Care Unavailable Andrea Lr MD Primary Care Provider Andrea Lr MD Primary Care Provider Dr. Jose Alfredo Valderrama DO Emergency Provider [phone] Care Physician, No Primary Primary Care Provider Unavailable Dr. Miki Abdi DO Admit Provider Unavail able Dr. Miki Abdi DO Attending Provider Unav ailable Andrea Lr Primary Care Unavailable Miki Abdi Consulting Unavailable Miki Abdi Admitting Unavailable Ranjan Negron Attending Unavailable James Christian Consulting Unavailable Oskar Apple Consulting Unavailable Edu August Consulting Unavailable Vero Landeros Consulting Unavailable Miki Mtz Consulting Unavailable Gaudencio Mann Consulting Unavailable Duran Bahena Consulting Unavailable Abigail Darling Consulting Unavailab Alvin Mares Consulting Unavailable Keith Robison Consulting Unavailable Osei Talbot Consulting Unavailable Amirah Honeycutt Consulting Unavailable Paulette Luther Consulting Unavailable Meryl Torres Consulting Unavailable Lacie, Miguel Consulting Unavailable Gabriel Jo Consulting Unavailable Angelica, Daryl Consulting Unavailable Ramos Ordaz Consulting Unavailable Steffi Lion Consulting Unavailable Tank Mackey Consulting Unavailable Manuelito Herman Consulting Unavailable Ulicse Saucedo Consulting Unavailable Gregor Zuniga Consulting Unavailable Jake, Jayaprakas Consulting Unavailable Brandon Medrano Consulting Unavailable Ranjan Negron Consulting Unavailable Ranjan Negron Referring Unavailable Vero Landeros Attending Unavailable Brandon Medrano Attending Unavailable Care Physician, No Primary Primary Care Unava ilable Miki Glover Attending Unavailable Miik Glover Consulting Unavailable Gary Lezama Consulting Unavailable Sita Granados Attending Unavailable Gary Lezama Attending Unavailable Brandon Medrano Referring Unavailable Levon Graff Attending Unavailable Miki Glover Attending Unavailable Miki Abdi Admitting Unavailable Miki Abdi Consulting Unavailable Andrea Lr Primary Care Unavailable Brandon Medrano Consulting Unavailable Jake, Jayaprakas Consulting Unavailable Migdalia, Ranjan Consulting Unavailable Gary Lezama Consulting Unavailable Andrea Lr Primary Care Unavailable Scottie Martinez Attending Unavailable Prerna, Levon Attending Unavailable Brandon Medrano Referring Unavailable Andrea Lr Primary Care Unavailable Miki Abdi Attending Unavailable ALBINA SERVIN Attending Unavailable ANDREA LR Primary Care Unavailable ANDREA LR Attending Unavailable ANDREA LR Primary Care Unavailable ADELINE, ANDREA Primary Care Unavailable LANE MALDONADO Admitting Unavailable MALINI LAGUNA Attending Unavailable DEE PITTS Attending Unavailable ANDREA LR Primary Care Unavailable Gary Lezama Referring Unavailable Ramana Huntley Attending Unavailable Andrea Lr Primary Care Unavailable Ungur, Remus Referring Unavailable Jeffery Villafana Attending Unavailable Adeline, Andrea Primary Care Unavailable Medications Current Medications Medication Drug Class(es) Dates Sig (Normalized) Sig (Original) Blood Glucose Monitoring Suppl (TRUE METRIX METER) w/Device KIT (3 sources) Start: 07-18-2021 Blood Glucose Monitoring Suppl (TRUE METRIX METER) w/Device KIT Indications: Long-term insulin use (HCC) , Type 1 diabetes mellitus with hyperglycemia (HCC) 1 Device by Does not apply route daily 1 kit 0 07/18/2021 Active Start: 11-19-2019 Blood Glucose Monitoring Suppl (TRUE METRIX METER) w/Device KIT Indications: Uncontrolled type 1 diabetes mellitus with complication (HCC) 1 Device by Does not apply route daily 1 kit 0 11/19/2019 Active buprenorphine 8 mg / naloxone 2 mg sublingual film (1 source) Partial Opioid Agonist, Opioid Antagonist Start: 08-26-2024 buprenorphine-naloxo ne (Suboxone) 8-2 MG per sublingual film Take 1.5 films SL once daily 08/26/2024 Active Continuous Blood Gluc Direct Selling Counselor (Dexcom G7 Direct Selling Counselor) device (1 source) Start: 11-13-2022 End: 11-13-2022 Continuous Blood Gluc Direct Selling Counselor (Dexcom G7 Direct Selling Counselor) device Indications: Type 1 diabetes mellitus with hyperglycemia (HCC) 1 each Once for 1 dose. 1 each 0 11/13/2022 11/13/2022 Active Continuous Glucose Direct Selling Counselor (FreeStyle Katharina 3 [place]) device (1 source) Start: 08-05-2024 End: 08-05-2024 Continuous Glucose Direct Selling Counselor (FreeStyle Katharina 3 [place]) device 1 Device Once for 1 dose. 1 each 08/05/2024 08/05/2024 Active Continuous Glucose Sensor (FreeStyle Katharina 3 Plus Sensor) misc (4 sources) Start: 08-07-2024 Continuous Glu cose Sensor (FreeStyle Katharina 3 Plus Sensor) misc 1 Device every 15 days. 6 each 3 08/07/2024 Active Start: 08-05-2024 End: 08-06-2024 Continuous Glucose Sensor (F reeStyle Katharina 3 Plus Sensor) misc 1 Device every 15 days. 6 each 3 08/05/2024 08/06/2024 Discontinued (Reorder) Start: 08-05-2024 Continuous Glu cose Sensor (FreeStyle Katharina 3 Plus Sensor) misc 1 Device every 15 days. 6 each 3 08/05/2024 Active 3 ml insulin lispro 100 unt/ml pen injector (20 sources) Insulin Analog Start: 08-05-2024 End: 08-15-2025 inject 16 [IU] by subcutaneous injection three times daily at mealtime, then inject 63 [IU] by subcutaneous injection once daily insulin lispro (HumaLOG KWIKPEN) 100 UNIT/ML pen injection Indications: Type 1 diabetes mellitus with hyperglycemia (HCC) Inject 16 Units under the skin 3 times daily (with meals). + sliding scale . TDD 63 Units /day 15 mL 11 08/05/2024 08/15/2025 Active Start: 04-16-2024 End: 07-08-2024 inject 14 [IU] by subcutaneous injection three times daily, then inject 60 [IU] by subcutaneous injection once daily insulin lispro (HumaLOG) 100 UNIT/ML pen injection Indications: Type 1 diabetes mellitus with hyperglycemia (HCC) INJECT 14 UNITS SUBCUTANEOUSLY 3 TIMES DAILY (MORNING, NOON & EVENING) PLUS SLIDING SCALE -MAX OF 60 UNITS DAILY 60 mL 3 07/08/2024 07/08/2024 Discontinued (Med list cleanup) Start: 02-16-2024 End: 02-17-2024 inject 16 [IU] by subcutaneous injection three times daily at mealtime 16 Units, SubCUTAneous, 3 times daily with meals, First dose on 02/16/24 at 0800 Start: 10-01-2023 End: 02-16-2025 insulin lispro (HumaLOG KWIK PEN) 100 UNIT/ML pen injection Indications: Type 1 diabetes mellitus with hyperglycemia (HCC) Inject 16 Units under the skin in the morning and 16 Units at noon and 16 Units in the evening. Inject with meals. + sliding scale . TDD 63 Units /day. 15 mL 11 10/01/2023 08/05/2024 Discontinued (Reorder) Start: 09-27-2023 End: 10-01-2023 insulin lispro (HumaLOG KWIK PEN) 100 UNIT/ML pen injection Indications: Type 1 diabetes mellitus with hyperglycemia (HCC) Inject 14 Units under the skin in the morning and 14 Units at noon and 14 Units in the evening. Inject with meals. + sliding scale . TDD 60 Units /day. 30 mL 1 09/27/2023 10/01/2023 Discontinued (Reorder) Start: 05-27-2023 End: 11-23-2023 insulin lispro (HumaLOG KWIK PEN) 100 UNIT/ML pen injection Indications: Type 1 diabetes mellitus with hyperglycemia (HCC) Inject 8 Units under the skin in the morning and 8 Units at noon and 8 Units in the evening. Inject with meals. + sliding scale . TDD 42 Units /day. 30 mL 1 05/27/2023 09/27/2023 Discontinued (Reorder) Start: 11-13-2022 End: 06-28-2023 insulin lispro (HumaLOG KWIK PEN) 100 UNIT/ML pen injection Indications: Type 1 diabetes mellitus with hyperglycemia (HCC) Inject 16 Units under the skin in the morning and 16 Units at noon and 16 Units in the evening. Inject with meals. 3 each 3 11/13/2022 03/30/2023 Discontinued (Reorder) Start: 08-18-2022 End: 11-13-2022 insulin lispro (HumaLOG KWIK PEN) 100 UNIT/ML injection Inject 18 Units under the skin in the morning and 18 Units at noon and 18 Units in the evening. Inject with meals. 3 each 3 08/18/2022 11/13/2022 Discontinued (Reorder) Start: 08-17-2022 End: 08-18-2022 Insulin Lispro (Humalog) inj ection 18 Units Start: 08-16-2022 End: 08-18-2022 Insulin Lispro (Humalog) inj ection 0-18 Units Start: 08-15-2022 End: 08-17-2022 Insulin Lispro (Humalog) inj ection 14 Units Start: 08-15-2022 Insulin Lispro (Humalog) injection 6 Units Start: 08-14-2022 Insulin Lispro (Humalog) injection 8 Units Start: 03-26-2022 End: 08-18-2022 insulin lispro (HumaLOG) 100 UNIT/ML injection Indications: Type 1 diabetes mellitus with hyperglycemia (HCC) INJECT 14 UNITS INTO THE SKIN 3 TIMES DAILY (BEFORE MEALS) PLUS SS OF 1 UNIT FOR EVERY 50 GREATER THAN 150. Mdd: 57 UNITS 60 mL 3 05/10/2022 08/18/2022 Discontinued (Stop taking at discharge) insulin, aspart, human 100 unt/ml injectable solution (1 source) Insulin Analog Start: 12-16-2019 inject 15 [IU] by subcutaneous injection twice daily before mealtime insulin aspart (NOVOLOG) 100 UNIT/ML injection vial INJECT 15 UNITS SUBCUTANEOUSLY TWICE DAILY BEFORE MEALS 3 vial 3 12/16/2019 Active isopropyl alcohol 0.7 ml/ml medicated pad (20 sources) Start: 08-07-2022 End: 08-05-2024 Alcohol Swabs (Easy Comfort Alcohol Pads) pads USE 1 UNUSED PAD TO CLEAN SITE BEFORE TESTING OR INJECTING NINE TIMES DAILY 600 each 3 08/05/2024 Active Start: 03-22-2022 Alcohol Swabs (Pharmacist Choice Alcohol) pads levothyroxine sodium 0.125 mg oral tablet (20 sources) l-Thyroxine Start: 05-28-2023 End: 08-05-2025 take 1 tablet by mouth once daily before breakfast levothyroxine (Synthroid, Levoxyl) 125 MCG tablet Take 1 tablet (125 mcg) by mouth every morning (before breakfast). 90 tablet 3 08/05/2024 08/05/2025 Active Start: 05-10-2022 End: 05-28-2023 take 1 tablet by mouth once daily levothyroxine (Synthroid, Levoxyl) 100 MCG tablet Indications: Type 1 diabetes mellitus with hyperglycemia (HCC) Take 1 tablet (100 mcg) by mouth daily. 30 tablet 11 05/10/2022 05/28/2023 Discontinued (Therapy completed) Start: 02-08-2022 End: 05-10-2022 take 1 tablet by mouth once daily levothyroxine (Synthroid, Levoxyl) 88 MCG tablet Take 88 mcg by mouth daily. 0 02/08/2022 05/10/2022 Discontinued (Therapy completed) Start: 10-26-2021 take 1 tablet by feli th once daily levothyroxine (SYNTHROID) 88 MCG tablet Indications: Acquired hypothyroidism TAKE 1 TABLET BY MOUTH ONCE DAILY 90 tablet 1 10/26/2021 Active Start: 03-30-2020 take 1 tablet by feli th once daily levothyroxine (SYNTHROID) 88 MCG tablet Indications: Uncontrolled type 1 diabetes mellitus with complication (HCC) TAKE 1 TABLET BY MOUTH ONCE DAILY 30 tablet 1 03/30/2020 Active Start: 03-06-2019 take 1 tablet by feli th once daily levothyroxine (SYNTHROID) 88 MCG tablet Indications: Uncontrolled type 1 diabetes mellitus with complication (HCC) TAKE 1 TABLET BY MOUTH ONCE DAILY 30 tablet 11 03/06/2019 Active Multiple Vitamin (MULTIVITAM IN ADULT PO) (20 sources) Multiple Vitamin (MULTIVITAMIN ADULT PO) Take by mouth daily. Active Multiple Vitamin (MULTIVITAMIN ADULT PO) Take by mouth daily. 0 Active Multiple Vitamin (MULTIVITAMIN ADULT PO) Take by mouth. 0 Active Multiple Vitamin (MULTIVITAMINS PO) (4 sources) Multiple Vitamin (MULTIVITAMINS PO) Take by mouth daily 0 Active nabumetone 500 mg oral tablet (1 source) Nonsteroidal Anti-inflammatory Drug Start: 04-15-20 take 1 tablet by mouth twice daily nabumetone (RELAFEN) 500 MG tablet Take 1 tablet by mouth 2 times daily 60 tablet 0 04/15/2020 Active ondansetron 4 mg disintegrating oral tablet (20 sources) Serotonin-3 Receptor Antagonist Start: 08-27-19 End: 09-16-19 take 1 tablet by mouth every eight hours as needed for nausea ondansetron ODT (Zofran-ODT) 4 MG disintegrating tablet Indications: Nausea and vomiting, unspecified vomiting type Take 1 tablet (4 mg) by mouth every 8 hours as needed for nausea or vomiting. 60 tablet 09/15/2024 Active Start: 02-15-2024 End: 02-15-2024 4 mg, IntraVENous, Once, On 02/15/24 at 1620, For 1 dose Start: 02-15-2024 End: 02-15-2024 4 mg, IntraVENous, Once, On 02/15/24 at 1620, For 1 dose Start: 08-14-2022 End: 08-14-2022 ondansetron (Zofran) injecti on 4 mg Start: 10-24-2021 End: 10-01-2023 take 1 tablet by mouth every twelve hours as needed for nausea ondansetron (Zofran) 8 MG tablet TAKE 1 TABLET BY MOUTH EVERY 12 HOURS NEEDED FOR NAUSEA 0 10/26/2021 05/09/2022 Discontinued (Therapy completed) pantoprazole 40 mg delayed release oral tablet (20 sources) Proton Pump Inhibitor Start: 08-16-2024 take 1 tablet by mouth twice daily Protonix 40 MG EC tablet Take 40 mg by mouth 2 times daily. 08/16/2024 Active Start: 02-16-2024 End: 08-05-2024 take 1 tablet by mouth once daily before breakfast pantoprazole (ProtoNix) 40 MG EC tablet Take 1 tablet (40 mg) by mouth every morning (before breakfast) for 15 days. Do not crush, chew, or split. 15 tablet 02/17/2024 3:53 PM EDT 02/18/2024 08/05/2024 Discontinued (Med list cleanup) Start: 08-18-2022 End: 05-27-2023 take 1 tablet by mouth once daily pantoprazole (ProtoNix) 40 MG EC tablet Take 1 tablet (40 mg) by mouth daily. Do not crush, chew, or split. 30 tablet 1 08/18/2022 05/27/2023 Discontinued (Therapy completed) pravastatin sodium 80 mg oral tablet (2 sources) HMG-CoA Reductase Inhibitor Start: 12-03-2019 take 1 tablet by mouth once daily pravastatin (PRAVACHOL) 80 MG tablet Take 1 tablet by mouth daily 30 tablet 5 12/03/2019 Active Start: 09-09-2019 take 1 tablet by feli once daily pravastatin (PRAVACHOL) 80 MG tablet Take 1 tablet by mouth daily 30 tablet 0 09/09/2019 Active promethazine hydrochloride 25 mg oral tablet (1 source) Phenothiazine Start: 09-30-2018 take 1 tablet by mouth every eight hours as needed for nausea promethazine (PHENERGAN) 25 MG tablet Take 1 tablet by mouth every 8 hours as needed for Nausea 30 tablet 0 09/30/2018 Active Semglee, yfgn, 100 UNIT/ML solution pen-injector (1 source) Start: 08-31-2024 inject 18 [IU] by subcutaneous injection once daily Semglee, yfgn, 100 UNIT/ML solution pen-injector Inject 18 Units under the skin Nightly. 08/31/2024 Active Completed/Discontinued Medications Medication Drug Class(es) Dates Sig (Normalized) Sig (Original) acetaminophen 500 mg oral tablet (3 sources) Start: 02-15-2024 End: 02-17-2024 take 1 tablet by mouth every eight hours 1,000 mg, Oral, Every 8 hours, First dose on 02/15/24 at 1845, Maximum dose of acetaminophen is 4000 mg from all sources in 24 hours. Start: 08-14-2022 End: 08-18-2022 take 1 tablet by mouth every six hours as needed for pain and fever acetaminophen (Tylenol) tablet 650 mg albuterol 0.83 mg/ml inhalation solution (2 sources) beta2-Adrenergic Agonist Start: 02-15-2024 End: 02-17-2024 aluminum hydroxide 40 mg/ml / magnesium hydroxide 40 mg/ml / simethicone 4 mg/ml oral suspension (1 source) Start: 08-14-2022 End: 08-14-2022 aluminum & magnesium hydroxide-simethico ne (Mylanta) 200-200-20 MG/5ML oral suspension 10 mL Start: 08-14-2022 End: 08-14-2022 aluminum & magnesium hydroxi de-simethicone (Mylanta) 200-200-20 MG/5ML oral suspension 10 mL aspirin 325 mg oral tablet (20 sources) Platelet Aggregation Inhibitor, Nonsteroidal Anti-inflammatory Drug Start: 08-15-2022 End: 08-18-2022 take 325 mg by mouth once daily 325 mg, Oral, Daily, First dose on Sat08/15/22 at 0900 baclofen 10 mg oral tablet (1 source) gamma-Aminobutyric Acid-ergic Agonist Start: 08-15-2022 End: 08-18-2022 take 1 tablet by mouth every eight hours baclofen (Lioresal) tablet 10 mg cholecalciferol 0.125 mg oral tablet (15 sources) Vitamin D End: 10-01-2023 cholecalciferol (D3-5) 5,000 Units tablet Take by mouth. 10/01/2023 Discontinued (Med list cleanup) End: 10-01-2023 cholecalciferol (D3-5) 5,000 Units tablet Take by mouth. 0 10/01/2023 Discontinued (Med list cleanup) cholecalciferol 9.52 unt/ml / glucose 357 mg/ml oral gel (1 source) Vitamin D Start: 08-14-2022 End: 08-18-2022 glucose oral gel 15 g cloNIDine hydrochloride 0.1 mg oral tablet (1 source) Central alpha-2 Adrenergic Agonist Start: 08-15-2022 End: 08-18-2022 take 1 tablet by mouth every eight hours cloNIDine (Catapres) tablet 0.1 mg Continuous Blood Gluc Direct Selling Counselor (Dexcom G6 spear fisher) device (14 sources) Start: 05-10-2022 End: 11-13-2022 Continuous Blood Gluc Direct Selling Counselor (Dexcom G6 spear fisher) device Indications: Type 1 diabetes mellitus with hyperglycemia (HCC) Use as instructed 1 each 0 05/10/2022 11/13/2022 Discontinued Start: 05-10-2022 Continuous Blo od Gluc Direct Selling Counselor (Dexcom G6 spear fisher) device Indications: Type 1 diabetes mellitus with hyperglycemia (HCC) Use as instructed 1 each 0 05/10/2022 Active Continuous Blood Gluc Sensor (Dexcom G6 Sensor) misc (14 sources) Start: 05-10-2022 End: 11-13-2022 Continuous Blood Gluc Sensor (Dexcom G6 Sensor) misc Indications: Type 1 diabetes mellitus with hyperglycemia (HCC) 1 device every 10 days 3 each 3 05/10/2022 11/13/2022 Discontinued Start: 05-10-2022 Continuous Blo od Gluc Sensor (Dexcom G6 Sensor) misc Indications: Type 1 diabetes mellitus with hyperglycemia (HCC) 1 device every 10 days 3 each 3 05/10/2022 Active Continuous Blood Gluc Sensor (Dexcom G7 Sensor) misc (11 sources) Start: 11-13-2022 End: 10-01-2023 Continuous Blood Gluc Sensor (Dexcom G7 Sensor) misc Indications: Type 1 diabetes mellitus with hyperglycemia (HCC) Use a new sensor every 10 days. 9 each 3 11/13/2022 10/01/2023 Discontinued (Med list cleanup) Start: 11-13-2022 Continuous Blo od Gluc Sensor (Dexcom G7 Sensor) misc Indications: Type 1 diabetes mellitus with hyperglycemia (HCC) Use a new sensor every 10 days. 9 each 3 11/13/2022 Active Continuous Blood Gluc Sensor (FreeStyle Katharina 2 Sensor) misc (16 sources) End: 08-05-2024 Continuous Blood Gluc Sensor (FreeStyle Katharina 2 Sensor) misc Indications: Type 1 diabetes mellitus with hyperglycemia (HCC) every 14 (fourteen) days. 08/05/2024 Discontinued (Therapy completed) Continuous Blood Gluc Sensor (FreeStyle Katharina 2 Sensor) misc Indications: Type 1 diabetes mellitus with hyperglycemia (HCC) every 14 (fourteen) days. Active Continuous Blood Gluc Sensor (FreeStyle Katharina 2 Sensor) misc Indications: Type 1 diabetes mellitus with hyperglycemia (HCC) every 14 (fourteen) days. 0 Active Continuous Blood Gluc Transm it (Dexcom G6 transmitter) misc (20 sources) Start: 05-10-2022 End: 10-01-2023 Continuous Blood Gluc Transm it (Dexcom G6 transmitter) misc Indications: Type 1 diabetes mellitus with hyperglycemia (HCC) Use as instructed, 1 device every 90 days 1 each 3 05/10/2022 10/01/2023 Discontinued (Med list cleanup) Start: 05-10-2022 Continuous Blo od Gluc Transmit (Dexcom G6 transmitter) [facility] [place] Indications: Type 1 diabetes mellitus with hyperglycemia (HCC) Use as instructed, 1 device every 90 days 1 each 3 05/10/2022 Active dicyclomine hydrochloride 10 mg oral capsule (3 sources) Anticholinergic Start: 02-15-2024 End: 02-17-2024 take 1 capsule by mouth every six hours as needed 10 mg, Oral, Every 6 hours PRN, heartburn, Starting on 02/15/24 at 1835 Start: 08-15-2022 End: 08-18-2022 dicyclomine (Bentyl) capsule 20 mg 0.4 ml enoxaparin sodium 100 mg/ml prefilled syringe (3 sources) Low Molecular Weight Heparin Start: 02-16-2024 End: 02-17-2024 inject 40 mg by subcutaneous injection every twenty-four hours 40 mg, SubCUTAneous, Every 24 hours scheduled (Daily), First dose on 02/16/24 at 0900, Indication of Use: Prophylaxis-DVT/PE, Indications: Prophylaxis of Venous Thromboembolism Start: 08-14-2022 End: 08-18-2022 enoxaparin (Lovenox) syringe 40 mg famotidine (Pepcid) 20 mg in sodium chloride (PF) 0.9 % 10 mL injection (2 sources) Start: 02-15-2024 End: 02-15-2024 20 mg, IntraVENous, Administer over 2 Minutes, Once, On 02/15/24 at 1740, For 1 dose, IV Push over minimum of 2 minutes - Dilute with 10 mL NS glucagon (rdna) 1 mg injection (1 source) Antihypoglycemic Agent Start: 08-14-2022 End: 08-18-2022 glucagon (human recombinant) injection 1 mg 1000 ml glucose 500 mg/ml injection (4 sources) Start: 02-15-2024 End: 02-17-2024 12.5 g, IntraVENous, As needed, low blood sugar, Starting on 02/15/24 at 1542, For blood glucose level less than 70 mg/dL. Check blood glucose every 15 minutes and repeat above if blood glucose is less than 70 mg/dL. Start: 08-14-2022 End: 08-18-2022 dextrose 50 % solution 12.5 g Start: 08-14-2022 End: 08-18-2022 dextrose 5 % infusion 250 ml glucose 50 mg/ml / sodium chloride 4.5 mg/ml injection (4 sources) Start: 02-15-2024 End: 02-17-2024 take 250 mL intravenously every hour in the morning 250 mL/hr, IntraVENous, Continuous, Starting on 02/16/24 at 0130, To run until he eats breakfast this AM 3 ml insulin detemir 100 unt/ml pen injector (13 sources) Insulin Analog Start: 01-23-2022 End: 05-10-2023 insulin detemir (Levemir) 100 UNIT/ML pen Indications: Type 1 diabetes mellitus with hyperglycemia (HCC) INJECT 18 UNITS INTO THE SKIN NIGHTLY 6 mL 3 05/10/2022 08/18/2022 Discontinued (Stop taking at discharge) 3 ml insulin glargine 100 unt/ml pen injector (20 sources) Insulin Analog Start: 08-05-2024 End: 10-08-2025 insulin glargine (Lantus SoloStar) 100 UNIT/ML pen Indications: Type 1 diabetes mellitus with hyperglycemia (HCC) Inject 18 Units under the skin Nightly. 15 mL 3 08/05/2024 09/15/2024 Discontinued Start: 02-16-2024 End: 02-17-2024 inject 14 [IU] by subcutaneous injection once daily 14 Units, SubCUTAneous, Nightly, First dose on 02/16/24 at 0115 Start: 10-01-2023 End: 12-03-2024 insulin glargine (Lantus Tari oStar) 100 UNIT/ML pen Indications: Type 1 diabetes mellitus with hyperglycemia (HCC) Inject 14 Units under the skin Nightly. 5 mL 11 10/01/2023 08/05/2024 Discontinued (Reorder) Start: 11-13-2022 End: 05-26-2024 insulin glargine (Lantus Tari oStar) 100 UNIT/ML pen Indications: Type 1 diabetes mellitus with hyperglycemia (HCC) Inject 16 Units under the skin Nightly. 15 mL 3 05/27/2023 10/01/2023 Discontinued (Reorder) Start: 08-18-2022 End: 08-18-2023 insulin glargine (Lantus Tari oStar) 100 UNIT/ML pen Inject 26 Units under the skin Nightly. 3 mL 12 08/18/2022 11/13/2022 Discontinued (Reorder) Start: 08-17-2022 End: 08-18-2022 insulin glargine (Lantus) injection 26 Units Start: 08-14-2022 End: 08-17-2022 insulin glargine (Lantus) injection 18 Units Insulin Lispro (Humalog) injection 0-12 Units (2 sources) Start: 02-16-2024 End: 02-17-2024 Insulin Lispro (Humalog) injection 0-12 Units insulin isophane, human 100 unt/ml injectable suspension (6 sources) Start: 02-15-2024 End: 02-16-2024 inject 1 dose by subcutaneous injection every twelve hours 12 Units (rounded from 12.24 Units = 0.15 Units/kg 81.6 kg), SubCUTAneous, Every 12 hours, First dose on 02/15/24 at 1545, Give at onset and every 12 hours. If BGT is Start: 10-27-2021 HUMULIN N 100 UNIT/ML injection vial Indications: Type 1 diabetes mellitus with hyperglycemia (HCC) Inject 15 units subcutaneous twice a day before each meal 30 mL 3 10/27/2021 Active Start: 11-19-2019 inject 15 [IU] by caruso bcutaneous injection twice daily before mealtime, then inject 100 [IU] by subcutaneous injection insulin NPH (NOVOLIN N) 100 UNIT/ML injection vial Indications: Uncontrolled type 1 diabetes mellitus with complication (HCC) UNJECT 15 UNITS SUBCUTANEOUSLY TWICE DAILY BEFORE MEALS 3 vial 3 11/19/2019 Active Start: 10-02-2018 NOVOLIN N 100 UNIT/ML injection vial INJECT 15 UNITS TWICE A DAY BEFORE MEALS 10 mL 10 10/02/2018 Active iopamidol (Isovue-370) 76 % injection 75 mL (1 source) Start: 08-14-2022 End: 08-14-2022 iopamidol (Isovue-370) 76 % injection 75 mL lisinopril 5 mg oral tablet (20 sources) Angiotensin Converting Enzyme Inhibitor Start: 01-23-2023 End: 09-15-2024 take 0.5 tablet by mouth once daily lisinopril 5 MG tablet Indications: Essential hypertension Take 1/2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 falsepositive HCV antibody. Consider repeat testing after onemonth.Performed at: - [facility] [address] [id number] Director: Dwaine Babin PhD, Phone: [phone] at: - [facility] [address] [id number] Director: Dinesh Oliveira MD, Phone: [phone] Performed By: #### L 3000.0375 ####[facility] [address] [place], [address] HCV log 10 TNP Normal . [facility] Comment on above: Performed By: #### L 3000.0375 ####[facility] [address] [place], [address] HEP B CORE,IgM Negative Normal Negative [facility] Comment on above: Performed By: #### L 3000.0375 ####[facility] [address] [place], [address] HEP B SURF AG Negative Normal Negative [facility] Comment on above: Performed By: #### L 3000.0375 ####[facility] [address] [place], [address] Hep C Quant Not detected Normal . [facility] Comment on above: Performed By: #### L 3000.0375 ####[facility] [address] [place], [address] HEP C VIRUS AB Reactive Abnormal Non Reactive [facility] Comment on above: Performed By: #### L 3000.0375 ####[facility] [address] [place], [address] HEPATITIS A-IgM Negative Normal Negative [facility] Comment on above: Result Comment: A ne gative anti-HAV IgM result suggests no recent orcurrent HAV infection. Performed By: #### L 3000.0375 ####[facility] [address] [place], [address] Test Informatio Comment Normal . [facility] Comment on above: Result Comment: The quantitative range of this assay is 15 IU/mL to 100million IU/mL. Performed By: #### L 3000.0375 ####[facility] [address] [place], [address] Liver Profileon 08-27-2024 ALB Normal 3.4-4.8 [facility] Comment on above: Result Comment: Canc elled via OM: Order cancelled - Patient discharged Performed By: #### L 100.0100, L500.3400 ####[facility] [address] [place], [address] ALK PHOS Normal 40-129 [facility] Comment on above: Result Comment: Canc elled via OM: Order cancelled - Patient discharged Performed By: #### L 100.0100, L500.3400 ####[facility] [address] [place], [address] ALT Normal <=46 [facility] Comment on above: Result Comment: Canc elled via OM: Order cancelled - Patient discharged Performed By: #### L 100.0100, L500.3400 ####[facility] [address] [place], [address] AST Normal <=37 [facility] Comment on above: Result Comment: Canc elled via OM: Order cancelled - Patient discharged Performed By: #### L 100.0100, L500.3400 ####[facility] [address] [place], [address] D BILI Normal 0.00-0.30 [facility] Comment on above: Result Comment: Canc elled via OM: Order cancelled - Patient discharged Performed By: #### L 100.0100, L500.3400 ####[facility] [address] [place], [address] T BILI Normal 0.00-1.30 [facility] Comment on above: Result Comment: Canc elled via OM: Order cancelled - Patient discharged Performed By: #### L 100.0100, L500.3400 ####[facility] [address] [place], [address] T PROT Normal 5.9-8.4 [facility] Comment on above: Result Comment: Canc elled via OM: Order cancelled - Patient discharged Performed By: #### L 100.0100, L500.3400 ####[facility] [address] [place], [address] Basic Metabolic Profile (BMP )on 08-26-2024 BUN/CRE 6.6 RATIO Low 10-20 [facility] Comment on above: Performed By: #### L 100.0100, L500.3400, L500.2500 ####[facility] [address] [place], [address] Calcium [Mass/Vol] 8.0 mg/dL Normal 7.6-11.0 [facility] Comment on above: Performed By: #### L 100.0100, L500.3400, L500.2500 ####[facility] [address] [place], [address] Chloride [Moles/Vol] 103 mmol/L Normal 98-108 [facility] Comment on above: Performed By: #### L 100.0100, L500.3400, L500.2500 ####[facility] [address] [place], [address] CO2 [Moles/Vol] 19.5 mmol/L Low 21.0-32.0 [facility] Comment on above: Performed By: #### L 100.0100, L500.3400, L500.2500 ####[facility] [address] [place], [address] Creatinine [Mass/Vol] 5.67 mg/dL High 0.70-1.20 [facility] Comment on above: Performed By: #### L 100.0100, L500.3400, L500.2500 ####[facility] [address] [place], [address] ECRCL 13.88 ml/min Low 50-250 [facility] Comment on above: Performed By: #### L 100.0100, L500.3400, L500.2500 ####[facility] [address] [place], [address] GAP 14 Normal 5-15 [facility] Comment on above: Performed By: #### L 100.0100, L500.3400, L500.2500 ####[facility] [address] [place], [address] GFR/1.73 sq M.predicted among non-blacks MDRD (S/P/Bld) [Vol rate/Area] 10 mL/min/{1.73_m2} Low >60 [facility] Comment on above: Result Comment: mL/m in/1.73m2 CKD-EPI Creatinine Equation (2020) Performed By: #### L 100.0100, L500.3400, L500.2500 ####[facility] [address] [place], [address] Glucose [Mass/Vol] 60 mg/dL Low 70-99 [facility] Comment on above: Performed By: #### L 100.0100, L500.3400, L500.2500 ####[facility] [address] [place], [address] Potassium [Moles/Vol] 4.7 mmol/L Normal 3.3-5.1 [facility] Comment on above: Performed By: #### L 100.0100, L500.3400, L500.2500 ####[facility] [address] [place], [address] Sodium [Moles/Vol] 137 mmol/L Normal 133-145 [facility] Comment on above: Performed By: #### L 100.0100, L500.3400, L500.2500 ####[facility] [address] [place], [address] Urea nitrogen [Mass/Vol] 38 mg/dL High 4-19 [facility] Comment on above: Performed By: #### L 100.0100, L500.3400, L500.2500 ####[facility] [address] [place], [address] Bedside Glucoseon 08-26-2024 FINGERSTICK GLU 79 mg/dL Normal 74-106 [facility] Comment on above: Result Comment: ANABELLE GEMENT OF PATIENT CARE PER NURSING PROTOCOL Performed By: #### L 501.080 ####[facility] [address] [place], [address] FINGERSTICK GLU 56 mg/dL Low 74-106 [facility] Comment on above: Result Comment: ANABELLE GEMENT OF PATIENT CARE PER NURSING PROTOCOL Performed By: #### L 501.080 ####[facility] [address] [place], [address] FINGERSTICK GLU 98 mg/dL Normal 74-106 [facility] Comment on above: Result Comment: ANABELLE GEMENT OF PATIENT CARE PER NURSING PROTOCOL Performed By: #### L 501.080 ####[facility] [address] [place], [address] CBC W/Diff, Automatedon 04-3 0-2024 Absolute Lymph 1.58 X10 3/uL Normal 0.83-4.51 [facility] Comment on above: Performed By: #### L 100.0100, L500.3400, L500.2500 ####[facility] [address] [place], [address] Absolute Neut 7.4 X10 3/uL Normal 2.0-7.7 [facility] Comment on above: Performed By: #### L 100.0100, L500.3400, L500.2500 ####[facility] [address] [place], [address] Basophils/100 WBC (Bld) 1.1 % High 0-1 [facility] Comment on above: Performed By: #### L 100.0100, L500.3400, L500.2500 ####[facility] [address] [place], [address] Eosinophils/100 WBC (Bld) 1.6 % Normal 0-5 [facility] Comment on above: Performed By: #### L 100.0100, L500.3400, L500.2500 ####[facility] [address] [place], [address] Erythrocyte distribution width (RBC) [Ratio] 14.8 % High 11.6-14.6 [facility] Comment on above: Performed By: #### L 100.0100, L500.3400, L500.2500 ####[facility] [address] [place], [address] Hematocrit (Bld) [Volume fraction] 25.7 % Low 40-54 [facility] Comment on above: Performed By: #### L 100.0100, L500.3400, L500.2500 ####[facility] [address] [place], [address] Hemoglobin (Bld) [Mass/Vol] 8.7 g/dL Low 13.0-16.5 [facility] Comment on above: Performed By: #### L 100.0100, L500.3400, L500.2500 ####[facility] [address] [place], [address] IG% 0.900 Normal 0.0-0.9 [facility] Comment on above: Result Comment: IG% - Immature Granulocytes (promyelocytes, myelocytes andmetamyelocytes) > 1% indicates that a LEFT SHIFT is Present. Performed By: #### L 100.0100, L500.3400, L500.2500 ####[facility] [address] [place], [address] Lymphocytes/100 WBC (Bld) 15.3 % Low 19-41 [facility] Comment on above: Performed By: #### L 100.0100, L500.3400, L500.2500 ####[facility] [address] [place], [address] MCH (RBC) [Entitic mass] 30.9 pg Normal 27.0-32.0 [facility] Comment on above: Performed By: #### L 100.0100, L500.3400, L500.2500 ####[facility] [address] [place], [address] MCHC (RBC) [Mass/Vol] 33.9 g/dL Normal 32-36 [facility] Comment on above: Performed By: #### L 100.0100, L500.3400, L500.2500 ####[facility] [address] [place], [address] MCV (RBC) [Entitic vol] 91.1 fL Normal 80-94 [facility] Comment on above: Performed By: #### L 100.0100, L500.3400, L500.2500 ####[facility] [address] [place], [address] Monocytes/100 WBC (Bld) 10.1 % High 0-10 [facility] Comment on above: Performed By: #### L 100.0100, L500.3400, L500.2500 ####[facility] [address] [place], [address] Neutrophils/100 WBC (Bld) 71.0 % High 47-70 [facility] Comment on above: Performed By: #### L 100.0100, L500.3400, L500.2500 ####[facility] [address] [place], [address] Nucleated RBC (Bld) [#/Vol] 0 10*3/uL Normal 0-5 [facility] Comment on above: Performed By: #### L 100.0100, L500.3400, L500.2500 ####[facility] [address] [place], [address] Platelet mean volume (Bld) [Entitic vol] 9.0 fL Normal 6.2-12.0 [facility] Comment on above: Performed By: #### L 100.0100, L500.3400, L500.2500 ####[facility] [address] [place], [address] Platelets (Bld) [#/Vol] 432 10*3/uL Normal 150-450 [facility] Comment on above: Performed By: #### L 100.0100, L500.3400, L500.2500 ####[facility] [address] [place], [address] RBC (Bld) [#/Vol] 2.82 10*6/uL Low 4.6-6.2 [facility] Comment on above: Performed By: #### L 100.0100, L500.3400, L500.2500 ####[facility] [address] [place], [address] RDW SD 46.7 fl High 35.1-43.9 [facility] Comment on above: Performed By: #### L 100.0100, L500.3400, L500.2500 ####[facility] [address] [place], [address] WBC (Bld) [#/Vol] 10.4 10*3/uL Normal 4.4-11.0 [facility] Comment on above: Performed By: #### L 100.0100, L500.3400, L500.2500 ####[facility] [address] [place], [address] CXR for Line Placementon CXR for Line Placement Normal [facility] Liver Profileon 08-26-2024 Albumin [Mass/Vol] 2.9 g/dL Low 3.4-4.8 [facility] Comment on above: Performed By: #### L 100.0100, L500.3400, L500.2500 ####[facility] [address] [place], [address] ALK PHOS 93 U/L Normal 40-129 [facility] Comment on above: Performed By: #### L 100.0100, L500.3400, L500.2500 ####[facility] [address] [place], [address] ALT [Catalytic activity/Vol] 27 U/L Normal <=46 [facility] Comment on above: Performed By: #### L 100.0100, L500.3400, L500.2500 ####[facility] [address] [place], [address] AST [Catalytic activity/Vol] 39 U/L High <=37 [facility] Comment on above: Performed By: #### L 100.0100, L500.3400, L500.2500 ####[facility] [address] [place], [address] Bilirubin [Mass/Vol] 0.22 mg/dL Normal 0.00-1.30 [facility] Comment on above: Performed By: #### L 100.0100, L500.3400, L500.2500 ####[facility] [address] [place], [address] Bilirubin.direct [Mass/Vol] 0.12 mg/dL Normal 0.00-0.30 [facility] Comment on above: Performed By: #### L 100.0100, L500.3400, L500.2500 ####[facility] [address] [place], [address] Globulin (S) [Mass/Vol] 3.0 g/dL Normal 2.2-4.2 [facility] Comment on above: Performed By: #### L 100.0100, L500.3400, L500.2500 ####[facility] [address] [place], [address] T PROT 5.9 g/dL Normal 5.9-8.4 [facility] Comment on above: Performed By: #### L 100.0100, L500.3400, L500.2500 ####[facility] [address] [place], [address] MR/POSTOP.ANEon 08-26-2024 MR/POSTOP.ANE Normal [facility] MR/SSQJNNXG6xh 08-26-2024 MR/POSTOPAN2 Normal [facility] Operative Reporton Operative Report Normal [facility] Partial Thromboplast Timeon 08-26-2024 aPTT Coag (Bld) [Time] 33.4 s Normal 24.1-36.2 [facility] Comment on above: Performed By: #### L 300.3900, L300.4310 ####[facility] [address] [place], [address] Prothrombin Time w/INRon INR Coag (PPP) [Relative time] 0.9 {INR} Normal [facility] Comment on above: Performed By: #### L 300.3900, L300.4310 ####[facility] [address] [place], [address] PT Coag (PPP) [Time] 12.5 s Normal 11.7-14.9 [facility] Comment on above: Performed By: #### L 300.3900, L300.4310 ####[facility] [address] [place], [address] Basic Metabolic Profile (BMP )on 08-25-2024 BUN/CRE 5.9 RATIO Low 10-20 [facility] Comment on above: Performed By: #### L 100.0100, L501.5200, L500.2500, L501.2300, L500.3400 ####[facility] [address] [place], [address] Calcium [Mass/Vol] 8.2 mg/dL Normal 7.6-11.0 [facility] Comment on above: Performed By: #### L 100.0100, L501.5200, L500.2500, L501.2300, L500.3400 ####[facility] [address] [place], [address] Chloride [Moles/Vol] 102 mmol/L Normal 98-108 [facility] Comment on above: Performed By: #### L 100.0100, L501.5200, L500.2500, L501.2300, L500.3400 ####[facility] [address] [place], [address] CO2 [Moles/Vol] 23.1 mmol/L Normal 21.0-32.0 [facility] Comment on above: Performed By: #### L 100.0100, L501.5200, L500.2500, L501.2300, L500.3400 ####[facility] [address] [place], [address] Creatinine [Mass/Vol] 4.65 mg/dL High 0.70-1.20 [facility] Comment on above: Performed By: #### L 100.0100, L501.5200, L500.2500, L501.2300, L500.3400 ####[facility] [address] [place], [address] ECRCL 16.92 ml/min Low 50-250 [facility] Comment on above: Performed By: #### L 100.0100, L501.5200, L500.2500, L501.2300, L500.3400 ####[facility] [address] [place], [address] GAP 11 Normal 5-15 [facility] Comment on above: Performed By: #### L 100.0100, L501.5200, L500.2500, L501.2300, L500.3400 ####[facility] [address] [place], [address] GFR/1.73 sq M.predicted among non-blacks MDRD (S/P/Bld) [Vol rate/Area] 13 mL/min/{1.73_m2} Low >60 [facility] Comment on above: Result Comment: mL/m in/1.73m2 CKD-EPI Creatinine Equation (2020) Performed By: #### L 100.0100, L501.5200, L500.2500, L501.2300, L500.3400 ####[facility] [address] [place], [address] Glucose [Mass/Vol] 63 mg/dL Low 70-99 [facility] Comment on above: Performed By: #### L 100.0100, L501.5200, L500.2500, L501.2300, L500.3400 ####[facility] [address] [place], [address] Potassium [Moles/Vol] 4.7 mmol/L Normal 3.3-5.1 [facility] Comment on above: Performed By: #### L 100.0100, L501.5200, L500.2500, L501.2300, L500.3400 ####[facility] [address] [place], [address] Sodium [Moles/Vol] 136 mmol/L Normal 133-145 [facility] Comment on above: Performed By: #### L 100.0100, L501.5200, L500.2500, L501.2300, L500.3400 ####[facility] [address] [place], [address] Urea nitrogen [Mass/Vol] 27 mg/dL High 4-19 [facility] Comment on above: Performed By: #### L 100.0100, L501.5200, L500.2500, L501.2300, L500.3400 ####[facility] [address] [place], [address] Bedside Glucoseon 08-25-2024 FINGERSTICK GLU 153 mg/dL High 74-106 [facility] Comment on above: Result Comment: ANABELLE GEMENT OF PATIENT CARE PER NURSING PROTOCOL Performed By: #### L 501.080 ####[facility] [address] [place], [address] FINGERSTICK GLU 112 mg/dL High 74-106 [facility] Comment on above: Result Comment: ANABELLE GEMENT OF PATIENT CARE PER NURSING PROTOCOL Performed By: #### L 501.080 ####[facility] [address] [place], [address] FINGERSTICK GLU 171 mg/dL High 74-106 [facility] Comment on above: Result Comment: ANABELLE GEMENT OF PATIENT CARE PER NURSING PROTOCOL Performed By: #### L 501.080 ####[facility] [address] [place], [address] FINGERSTICK GLU 132 mg/dL High 74-106 [facility] Comment on above: Result Comment: ANABELLE GEMENT OF PATIENT CARE PER NURSING PROTOCOL Performed By: #### L 501.080 ####[facility] [address] [place], [address] FINGERSTICK GLU 55 mg/dL Low 74-106 [facility] Comment on above: Result Comment: ANABELLE GEMENT OF PATIENT CARE PER NURSING PROTOCOL Performed By: #### L 501.080 ####[facility] [address] [place], [address] FINGERSTICK GLU 310 mg/dL High 74-106 [facility] Comment on above: Result Comment: ANABELLE GEMENT OF PATIENT CARE PER NURSING PROTOCOL Performed By: #### L 501.080 ####[facility] [address] [place], [address] CBC W/Diff, Automatedon 04-2 Absolute Lymph 1.30 X10 3/uL Normal 0.83-4.51 [facility] Comment on above: Performed By: #### L 100.0100, L501.5200, L500.2500, L501.2300, L500.3400 ####[facility] [address] [place], [address] Absolute Neut 7.9 X10 3/uL High 2.0-7.7 [facility] Comment on above: Performed By: #### L 100.0100, L501.5200, L500.2500, L501.2300, L500.3400 ####[facility] [address] [place], [address] Basophils/100 WBC (Bld) 1.0 % Normal 0-1 [facility] Comment on above: Performed By: #### L 100.0100, L501.5200, L500.2500, L501.2300, L500.3400 ####[facility] [address] [place], [address] Eosinophils/100 WBC (Bld) 1.6 % Normal 0-5 [facility] Comment on above: Performed By: #### L 100.0100, L501.5200, L500.2500, L501.2300, L500.3400 ####[facility] [address] [place], [address] Erythrocyte distribution width (RBC) [Ratio] 14.7 % High 11.6-14.6 [facility] Comment on above: Performed By: #### L 100.0100, L501.5200, L500.2500, L501.2300, L500.3400 ####[facility] [address] [place], [address] Hematocrit (Bld) [Volume fraction] 26.2 % Low 40-54 [facility] Comment on above: Performed By: #### L 100.0100, L501.5200, L500.2500, L501.2300, L500.3400 ####[facility] [address] [place], [address] Hemoglobin (Bld) [Mass/Vol] 8.7 g/dL Low 13.0-16.5 [facility] Comment on above: Performed By: #### L 100.0100, L501.5200, L500.2500, L501.2300, L500.3400 ####[facility] [address] [place], [address] IG% 0.900 Normal 0.0-0.9 [facility] Comment on above: Result Comment: IG% - Immature Granulocytes (promyelocytes, myelocytes andmetamyelocytes) > 1% indicates that a LEFT SHIFT is Present. Performed By: #### L 100.0100, L501.5200, L500.2500, L501.2300, L500.3400 ####[facility] [address] [place], [address] Lymphocytes/100 WBC (Bld) 12.3 % Low 19-41 [facility] Comment on above: Performed By: #### L 100.0100, L501.5200, L500.2500, L501.2300, L500.3400 ####[facility] [address] [place], [address] MCH (RBC) [Entitic mass] 30.5 pg Normal 27.0-32.0 [facility] Comment on above: Performed By: #### L 100.0100, L501.5200, L500.2500, L501.2300, L500.3400 ####[facility] [address] [place], [address] MCHC (RBC) [Mass/Vol] 33.2 g/dL Normal 32-36 [facility] Comment on above: Performed By: #### L 100.0100, L501.5200, L500.2500, L501.2300, L500.3400 ####[facility] [address] [place], [address] MCV (RBC) [Entitic vol] 91.9 fL Normal 80-94 [facility] Comment on above: Performed By: #### L 100.0100, L501.5200, L500.2500, L501.2300, L500.3400 ####[facility] [address] [place], [address] Monocytes/100 WBC (Bld) 9.6 % Normal 0-10 [facility] Comment on above: Performed By: #### L 100.0100, L501.5200, L500.2500, L501.2300, L500.3400 ####[facility] [address] [place], [address] Neutrophils/100 WBC (Bld) 74.6 % High 47-70 [facility] Comment on above: Performed By: #### L 100.0100, L501.5200, L500.2500, L501.2300, L500.3400 ####[facility] [address] [place], [address] Nucleated RBC (Bld) [#/Vol] 0 10*3/uL Normal 0-5 [facility] Comment on above: Performed By: #### L 100.0100, L501.5200, L500.2500, L501.2300, L500.3400 ####[facility] [address] [place], [address] Platelet mean volume (Bld) [Entitic vol] 9.2 fL Normal 6.2-12.0 [facility] Comment on above: Performed By: #### L 100.0100, L501.5200, L500.2500, L501.2300, L500.3400 ####[facility] [address] [place], [address] Platelets (Bld) [#/Vol] 421 10*3/uL Normal 150-450 [facility] Comment on above: Performed By: #### L 100.0100, L501.5200, L500.2500, L501.2300, L500.3400 ####[facility] [address] [place], [address] RBC (Bld) [#/Vol] 2.85 10*6/uL Low 4.6-6.2 [facility] Comment on above: Performed By: #### L 100.0100, L501.5200, L500.2500, L501.2300, L500.3400 ####[facility] [address] [place], [address] RDW SD 46.8 fl High 35.1-43.9 [facility] Comment on above: Performed By: #### L 100.0100, L501.5200, L500.2500, L501.2300, L500.3400 ####[facility] [address] [place], [address] WBC (Bld) [#/Vol] 10.6 10*3/uL Normal 4.4-11.0 [facility] Comment on above: Performed By: #### L 100.0100, L501.5200, L500.2500, L501.2300, L500.3400 ####[facility] [address] [place], [place], [id number] Consultation - Surgicalon Consultation - Surgical Normal [facility] Liver Profileon 08-25-2024 Albumin [Mass/Vol] 3.1 g/dL Low 3.4-4.8 [facility] Comment on above: Performed By: #### L 100.0100, L501.5200, L500.2500, L501.2300, L500.3400 ####[facility] [address] [place], [place], [id number] ALK PHOS 100 U/L Normal 40-129 [facility] Comment on above: Performed By: #### L 100.0100, L501.5200, L500.2500, L501.2300, L500.3400 ####[facility] [address] [place], [address] ALT [Catalytic activity/Vol] 30 U/L Normal <=46 [facility] Comment on above: Performed By: #### L 100.0100, L501.5200, L500.2500, L501.2300, L500.3400 ####[facility] [address] [place], [address] AST [Catalytic activity/Vol] 41 U/L High <=37 [facility] Comment on above: Performed By: #### L 100.0100, L501.5200, L500.2500, L501.2300, L500.3400 ####[facility] [address] [place], [address] Bilirubin [Mass/Vol] 0.29 mg/dL Normal 0.00-1.30 [facility] Comment on above: Performed By: #### L 100.0100, L501.5200, L500.2500, L501.2300, L500.3400 ####[facility] [address] [place], [address] Bilirubin.direct [Mass/Vol] 0.17 mg/dL Normal 0.00-0.30 [facility] Comment on above: Performed By: #### L 100.0100, L501.5200, L500.2500, L501.2300, L500.3400 ####[facility] [address] [place], [address] Globulin (S) [Mass/Vol] 2.8 g/dL Normal 2.2-4.2 [facility] Comment on above: Performed By: #### L 100.0100, L501.5200, L500.2500, L501.2300, L500.3400 ####[facility] [address] [place], [address] T PROT 5.8 g/dL Low 5.9-8.4 [facility] Comment on above: Performed By: #### L 100.0100, L501.5200, L500.2500, L501.2300, L500.3400 ####[facility] [address] [place], [address] Magnesiumon 08-25-2024 Magnesium [Mass/Vol] 1.9 mg/dL Normal 1.5-2.2 [facility] Comment on above: Performed By: #### L 100.0100, L501.5200, L500.2500, L501.2300, L500.3400 ####[facility] [address] [place], [address] Phosphoruson 08-25-2024 Phosphate [Mass/Vol] 4.9 mg/dL High 2.7-4.5 [facility] Comment on above: Performed By: #### L 100.0100, L501.5200, L500.2500, L501.2300, L500.3400 ####[facility] [address] [place], [address] BRCon 08-24-2024 RC Normal [facility] Comment on above: Result Comment: [id number] ON RC TRANSFUSED 08/24/24 [id number] ON RC TRANSFUSED 08/24/24 1726 Performed By: #### B , [facility] ####[facility] [address] [place], [address] Basic Metabolic Profile (BMP )on 08-24-2024 BUN/CRE 5.1 RATIO Low 10-20 [facility] Comment on above: Performed By: #### L 500.2500, L100.0100 ####[facility] [address] [place], [address] Calcium [Mass/Vol] 8.2 mg/dL Normal 7.6-11.0 [facility] Comment on above: Performed By: #### L 500.2500, L100.0100 ####[facility] [address] [place], [address] Chloride [Moles/Vol] 101 mmol/L Normal 98-108 [facility] Comment on above: Performed By: #### L 500.2500, L100.0100 ####[facility] [address] [place], [address] CO2 [Moles/Vol] 14.1 mmol/L Low 21.0-32.0 [facility] Comment on above: Performed By: #### L 500.2500, L100.0100 ####[facility] [address] [place], [address] Creatinine [Mass/Vol] 5.82 mg/dL High 0.70-1.20 [facility] Comment on above: Performed By: #### L 500.2500, L100.0100 ####[facility] [address] [place], [address] ECRCL 13.52 ml/min Low 50-250 [facility] Comment on above: Performed By: #### L 500.2500, L100.0100 ####[facility] [address] [place], [address] GAP 19 High 5-15 [facility] Comment on above: Performed By: #### L 500.2500, L100.0100 ####[facility] [address] [place], [address] GFR/1.73 sq M.predicted among non-blacks MDRD (S/P/Bld) [Vol rate/Area] 10 mL/min/{1.73_m2} Low >60 [facility] Comment on above: Result Comment: mL/m in/1.73m2 CKD-EPI Creatinine Equation (2020) Performed By: #### L 500.2500, L100.0100 ####[facility] [address] [place], [address] Glucose [Mass/Vol] 154 mg/dL High 70-99 [facility] Comment on above: Performed By: #### L 500.2500, L100.0100 ####[facility] [address] [place], [address] Potassium [Moles/Vol] 5.3 mmol/L High 3.3-5.1 [facility] Comment on above: Result Comment: Hemo lysis present, Results??could be affected.?? Performed By: #### L 500.2500, L100.0100 ####[facility] [address] [place], [address] Sodium [Moles/Vol] 134 mmol/L Normal 133-145 [facility] Comment on above: Performed By: #### L 500.2500, L100.0100 ####[facility] [address] [place], [address] Urea nitrogen [Mass/Vol] 30 mg/dL High 4-19 [facility] Comment on above: Performed By: #### L 500.2500, L100.0100 ####[facility] [address] [place], [address] Bedside Glucoseon 08-24-2024 FINGERSTICK GLU 290 mg/dL High 74-106 [facility] Comment on above: Result Comment: ANABELLE GEMENT OF PATIENT CARE PER NURSING PROTOCOL Performed By: #### L 501.080 ####[facility] [address] [place], [address] FINGERSTICK GLU 186 mg/dL High 74-106 [facility] Comment on above: Result Comment: ANABELLE GEMENT OF PATIENT CARE PER NURSING PROTOCOL Performed By: #### L 501.080 ####[facility] [address] [place], [address] FINGERSTICK GLU 153 mg/dL High 74-106 [facility] Comment on above: Result Comment: ANABELLE GEMENT OF PATIENT CARE PER NURSING PROTOCOL Performed By: #### L 501.080 ####[facility] [address] [place], [address] CBC W/Diff, Automatedon 04-2 Absolute Lymph 1.53 X10 3/uL Normal 0.83-4.51 [facility] Comment on above: Order Comment: REDRA W. PREVIOUS SPECIMEN REJECTED DUE TOQNS. 08/24/24 0709 Robert Hylton.UTO X2 PHLEBS-INFORMED NURSE ELAINA-PER NURSE MAY TRY DRAWINGTHIS SPECIMEN FROM PT DIALYSIS [place] Performed By: #### L 100.0100 ####[facility] [address] [place], [place], [phone](058) Absolute Neut 10.7 X10 3/uL High 2.0-7.7 [facility] Comment on above: Order Comment: REDRA W. PREVIOUS SPECIMEN REJECTED DUE TOQNS. 08/24/24 0709 Robert Hardinzano.UTO X2 PHLEBS-INFORMED NURSE ELAINA-PER NURSE MAY TRY DRAWINGTHIS SPECIMEN FROM PT DIALYSIS TX Performed By: #### L 100.0100 ####[facility] [address] [place], [place], [phone]) Basophils/100 WBC (Bld) 0.4 % Normal 0-1 [facility] Comment on above: Order Comment: REDRA W. PREVIOUS SPECIMEN REJECTED DUE TOQNS. 08/24/24 0709 Robert Hardinzano.UTO X2 PHLEBS-INFORMED NURSE ELAINA-PER NURSE MAY TRY DRAWINGTHIS SPECIMEN FROM PT DIALYSIS [place] Performed By: #### L 100.0100 ####[facility] [address] [place], [address] Eosinophils/100 WBC (Bld) 1.0 % Normal 0-5 [facility] Comment on above: Order Comment: REDRA W. PREVIOUS SPECIMEN REJECTED DUE TOQNS. 08/24/24 0709 Robert Hylton.UTO X2 PHLEBS-INFORMED NURSE ELAINA-PER NURSE MAY TRY DRAWINGTHIS SPECIMEN FROM PT DIALYSIS TX Performed By: #### L 100.0100 ####[facility] [address] [place], [address] Erythrocyte distribution width (RBC) [Ratio] 14.2 % Normal 11.6-14.6 [facility] Comment on above: Order Comment: REDRA W. PREVIOUS SPECIMEN REJECTED DUE TOQNS. 08/24/24 0709 Robert Hylton.UTO X2 PHLEBS-INFORMED NURSE ELAINA-PER NURSE MAY TRY DRAWINGTHIS SPECIMEN FROM PT DIALYSIS TX Performed By: #### L 100.0100 ####[facility] [address] [place], [address] Hematocrit (Bld) [Volume fraction] 21.0 % Low 40-54 [facility] Comment on above: Order Comment: MARTINA W. PREVIOUS SPECIMEN REJECTED DUE TOQNS. 08/24/24 0709 Robert Hylton.UTO X2 PHLEBS-INFORMED NURSE ELAINA-PER NURSE MAY TRY DRAWINGTHIS SPECIMEN FROM PT DIALYSIS TX Performed By: #### L 100.0100 ####[facility] [address] [place], [address] Hemoglobin (Bld) [Mass/Vol] 7.0 g/dL Low 13.0-16.5 [facility] Comment on above: Order Comment: RED W. PREVIOUS SPECIMEN REJECTED DUE TOQNS. 08/24/24 0709 [facility]2 PHLEBS-INFORMED NURSE ELAINA-PER NURSE MAY TRY DRAWINGTHIS SPECIMEN FROM PT DIALYSIS TX Performed By: #### L 100.0100 ####[facility] [address] [place], [address] IG% 1.200 High 0.0-0.9 [facility] Comment on above: Order Comment: MARTINA W. PREVIOUS SPECIMEN REJECTED DUE TOQNS. 08/24/24 0709 Robert Hylton.UTO X2 PHLEBS-INFORMED NURSE ELAINA-PER NURSE MAY TRY DRAWINGTHIS SPECIMEN FROM PT DIALYSIS [place] Result Comment: IG% - Immature Granulocytes (promyelocytes, myelocytes andmetamyelocytes) > 1% indicates that a LEFT SHIFT is Present. Performed By: #### L 100.0100 ####[facility] [address] [place], [address] Lymphocytes/100 WBC (Bld) 11.5 % Low 19-41 [facility] Comment on above: Order Comment: REDRA W. PREVIOUS SPECIMEN REJECTED DUE TOQNS. 08/24/24 0709 Robert Hylton.UTO X2 PHLEBS-INFORMED NURSE ELAINA-PER NURSE MAY TRY DRAWINGTHIS SPECIMEN FROM PT DIALYSIS [place] Performed By: #### L 100.0100 ####[facility] [address] [place], [address] MCH (RBC) [Entitic mass] 31.7 pg Normal 27.0-32.0 [facility] Comment on above: Order Comment: REDRA W. PREVIOUS SPECIMEN REJECTED DUE TOQNS. 08/24/24 0709 Robert Hylton.UTO X2 PHLEBS-INFORMED NURSE ELAINA-PER NURSE MAY TRY DRAWINGTHIS SPECIMEN FROM PT DIALYSIS TX Performed By: #### L 100.0100 ####[facility] [address] [place], [address] MCHC (RBC) [Mass/Vol] 33.3 g/dL Normal 32-36 [facility] Comment on above: Order Comment: REDRA W. PREVIOUS SPECIMEN REJECTED DUE TOQNS. 08/24/24 0709 Robert Hylton.UTO X2 PHLEBS-INFORMED NURSE ELAINA-PER NURSE MAY TRY DRAWINGTHIS SPECIMEN FROM PT DIALYSIS [place] Performed By: #### L 100.0100 ####[facility] [address] [place], [address] MCV (RBC) [Entitic vol] 95.0 fL High 80-94 [facility] Comment on above: Order Comment: REDRA W. PREVIOUS SPECIMEN REJECTED DUE TOQNS. 08/24/24 0709 Robert Hylton.UTO X2 PHLEBS-INFORMED NURSE ELAINA-PER NURSE MAY TRY DRAWINGTHIS SPECIMEN FROM PT DIALYSIS TX Performed By: #### L 100.0100 ####[facility] [address] [place], [address] Monocytes/100 WBC (Bld) 6.1 % Normal 0-10 [facility] Comment on above: Order Comment: REDRA W. PREVIOUS SPECIMEN REJECTED DUE TOQNS. 08/24/[address] [place] [address].UTO X2 PHLEBS-INFORMED NURSE ELAINA-PER NURSE MAY TRY DRAWINGTHIS SPECIMEN FROM PT DIALYSIS [place] Performed By: #### L 100.0100 ####[facility] [address] [place], [address] Neutrophils/100 WBC (Bld) 79.8 % High 47-70 [facility] Comment on above: Order Comment: REDRA W. PREVIOUS SPECIMEN REJECTED DUE TOQNS. 08/24/[address] [place], [place] [address]zano.UTO X2 PHLEBS-INFORMED NURSE ELAINA-PER NURSE MAY TRY DRAWINGTHIS SPECIMEN FROM PT DIALYSIS [place] Performed By: #### L 100.0100 ####[facility] [address] [place], [address] Nucleated RBC (Bld) [#/Vol] 0 10*3/uL Normal 0-5 [facility] Comment on above: Order Comment: RED W. PREVIOUS SPECIMEN REJECTED DUE TOQNS. 08/24/[address] [place] [address].UTO X2 PHLEBS-INFORMED NURSE ELAINA-PER NURSE MAY TRY DRAWINGTHIS SPECIMEN FROM PT DIALYSIS TX Performed By: #### L 100.0100 ####[facility] [address] [place], [address] Platelet mean volume (Bld) [Entitic vol] 9.1 fL Normal 6.2-12.0 [facility] Comment on above: Order Comment: REDRA W. PREVIOUS SPECIMEN REJECTED DUE TOQNS. 08/24/24 07 [facility] X2 PHLEBS-INFORMED NURSE ELAINA-PER NURSE MAY TRY DRAWINGTHIS SPECIMEN FROM PT DIALYSIS TX Performed By: #### L 100.0100 ####[facility] [address] [place], [address] Platelets (Bld) [#/Vol] 460 10*3/uL High 150-450 [facility] Comment on above: Order Comment: REDRA W. PREVIOUS SPECIMEN REJECTED DUE TOQNS. 08/24/24 0709 [facility].UTO X2 PHLEBS-INFORMED NURSE ELAINA-PER NURSE MAY TRY DRAWINGTHIS SPECIMEN FROM PT DIALYSIS TX Performed By: #### L 100.0100 ####[facility] [address] [place], [address] RBC (Bld) [#/Vol] 2.21 10*6/uL Low 4.6-6.2 [facility] Comment on above: Order Comment: REDRA W. PREVIOUS SPECIMEN REJECTED DUE TOQNS. 08/24/24 0709 Robert Hylton.UTO X2 PHLEBS-INFORMED NURSE ELAINA-PER NURSE MAY TRY DRAWINGTHIS SPECIMEN FROM PT DIALYSIS TX Performed By: #### L 100.0100 ####[facility] [address] [place], [address] RDW SD 46.3 fl High 35.1-43.9 [facility] Comment on above: Order Comment: RED W. PREVIOUS SPECIMEN REJECTED DUE TOQNS. 08/24/24 0709 Robert Hylton.UTO X2 PHLEBS-INFORMED NURSE ELAINA-PER NURSE MAY TRY DRAWINGTHIS SPECIMEN FROM PT DIALYSIS [place] Performed By: #### L 100.0100 ####[facility] [address] [place], [address] WBC (Bld) [#/Vol] 13.4 10*3/uL High 4.4-11.0 [facility] Comment on above: Order Comment: REDRA W. PREVIOUS SPECIMEN REJECTED DUE TOQNS. 08/24/24 07 Robert Hylton.UTO X2 PHLEBS-INFORMED NURSE ELAINA-PER NURSE MAY TRY DRAWINGTHIS SPECIMEN FROM PT DIALYSIS [place] Performed By: #### L 100.0100 ####[facility] [address] [place], [address] Absolute Neut Normal 2.0-7.7 [facility] Comment on above: Result Comment: This specimen has been REJECTED due to Laboratory criteria:Quanity Not Sufficient.LAB has been notified of need of recollection.08/24/24 0709 Robert Hylton Performed By: #### L 500.2500, L100.0100 ####[facility] [address] [place], [address] HCT Normal 40-54 [facility] Comment on above: Result Comment: This specimen has been REJECTED due to Laboratory criteria:Quanity Not Sufficient.LAB has been notified of need of recollection.08/24/24708 Robert Hylton Performed By: #### L 500.2500, L100.0100 ####[facility] [address] [place], [address] HGB Normal 13.0-16.5 [facility] Comment on above: Result Comment: This specimen has been REJECTED due to Laboratory criteria:Quanity Not Sufficient.LAB has been notified of need of recollection.08/24/24708 Robert Hylton Performed By: #### L 500.2500, L100.0100 ####[facility] [address] [place], [address] MCH Normal 27.0-32.0 [facility] Comment on above: Result Comment: This specimen has been REJECTED due to Laboratory criteria:Quanity Not Sufficient.LAB has been notified of need of recollection.08/24/24708 Robert Hylton Performed By: #### L 500.2500, L100.0100 ####[facility] [address] [place], [address] MCHC Normal 32-36 [facility] Comment on above: Result Comment: This specimen has been REJECTED due to Laboratory criteria:Quanity Not Sufficient.LAB has been notified of need of recollection.08/24/24708 Robert Hylton Performed By: #### L 500.2500, L100.0100 ####[facility] [address] [place], [address] MCV Normal 80-94 [facility] Comment on above: Result Comment: This specimen has been REJECTED due to Laboratory criteria:Quanity Not Sufficient.LAB has been notified of need of recollection.04/28/25 0709 Robert Hylton Performed By: #### L 500.2500, L100.0100 ####[facility] [address] [place], [address] NEUT% Normal 47-70 [facility] Comment on above: Result Comment: This specimen has been REJECTED due to Laboratory criteria:Quanity Not Sufficient.LAB has been notified of need of recollection.08/24/24708 Robert Hylton Performed By: #### L 500.2500, L100.0100 ####[facility] [address] [place], [address] PLT Normal 150-450 [facility] Comment on above: Result Comment: This specimen has been REJECTED due to Laboratory criteria:Quanity Not Sufficient.LAB has been notified of need of recollection.08/24/24708 Robert Hylton Performed By: #### L 500.2500, L100.0100 ####[facility] [address] [place], [address] RBC Normal 4.6-6.2 [facility] Comment on above: Result Comment: This specimen has been REJECTED due to Laboratory criteria:Quanity Not Sufficient.LAB has been notified of need of recollection.08/24/24708 Robert Hylton Performed By: #### L 500.2500, L100.0100 ####[facility] [address] [place], [address] RDW CV Normal 11.6-14.6 [facility] Comment on above: Result Comment: This specimen has been REJECTED due to Laboratory criteria:Quanity Not Sufficient.LAB has been notified of need of recollection.08/24/24708 Robert Hylton Performed By: #### L 500.2500, L100.0100 ####[facility] [address] [place], [address] RDW SD Normal 35.1-43.9 [facility] Comment on above: Result Comment: This specimen has been REJECTED due to Laboratory criteria:Quanity Not Sufficient.LAB has been notified of need of recollection.08/24/24 0709 Robert Hardinzano Performed By: #### L 500.2500, L100.0100 ####[facility] [address] [place], [address] WBC Normal 4.4-11.0 [facility] Comment on above: Result Comment: This specimen has been REJECTED due to Laboratory criteria:Quanity Not Sufficient.LAB has been notified of need of recollection.08/24/24 0709 Robert Hardinzano Performed By: #### L 500.2500, L100.0100 ####[facility] [address] [place], [address] Type AND Screenon 08-24-2024 ABO and Rh group Nom (Bld) Blood group O Rh(D) negative Normal [facility] Comment on above: Order Comment: CMV N EG? NNumber of units to transfuse: 1Is pt's Hgb is = to 7.0 mg/dl or Hct </= 21%? YReason for Ordering Blood: ChronicAre the blood/blood products to be transfused? YIs the patient having/had surgery? NWsharonda Santacruz Performed By: #### B , [facility] ####[facility] [address] [place], [address] Bedside Glucoseon 08-23-2024 FINGERSTICK GLU 134 mg/dL High 74-106 [facility] Comment on above: Result Comment: ANABELLE GEMENT OF PATIENT CARE PER NURSING PROTOCOL Performed By: #### L 501.080 ####[facility] [address] [place], [address] FINGERSTICK GLU 119 mg/dL High 74-106 [facility] Comment on above: Result Comment: ANABELLE GEMENT OF PATIENT CARE PER NURSING PROTOCOL Performed By: #### L 501.080 ####[facility] [address] [place], [address] FINGERSTICK GLU 241 mg/dL High 74-106 [facility] Comment on above: Result Comment: ANABELLE GEMENT OF PATIENT CARE PER NURSING PROTOCOL Performed By: #### L 501.080 ####[facility] [address] [place], [address] FINGERSTICK GLU 146 mg/dL High [facility]106 [facility] Comment on above: Result Comment: ANABELLE GEMENT OF PATIENT CARE PER NURSING PROTOCOL Performed By: #### L 501.080 ####[facility] [address] [place], [address] Bedside Glucoseon 08-22-2024 FINGERSTICK GLU 88 mg/dL Normal -[address] [place] [address] Comment on above: Result Comment: ANABELLE GEMENT OF PATIENT CARE PER NURSING PROTOCOL Performed By: #### L 501.080 ####[facility] [address] [place], [address] FINGERSTICK GLU 132 mg/dL High -[address] [place] [address] Comment on above: Result Comment: ANABELLE GEMENT OF PATIENT CARE PER NURSING PROTOCOL Performed By: #### L 501.080 ####[facility] [address] [place], [address] FINGERSTICK GLU 169 mg/dL High [facility]106 [facility] Comment on above: Result Comment: ANABELLE GEMENT OF PATIENT CARE PER NURSING PROTOCOL Performed By: #### L 501.080 ####[facility] [address] [place], [address] FINGERSTICK GLU 122 mg/dL High -[address] [place] [address] Comment on above: Result Comment: ANABELLE GEMENT OF PATIENT CARE PER NURSING PROTOCOL Performed By: #### L 501.080 ####[facility] [address] [place], [address] HH, Hemoglobin AND Hematocri ton 08-22-2024 Hematocrit (Bld) [Volume fraction] 26.4 % Low 40-54 [facility] Comment on above: Order Comment: LATE DUE TO MULTIPLE ATEMPTS Performed By: #### L 100.0600 ####[facility] [address] [place], [address] Hemoglobin (Bld) [Mass/Vol] 8.8 g/dL Low 13.0-16.5 [facility] Comment on above: Order Comment: LATE DUE TO MULTIPLE ATEMPTS Performed By: #### L 100.0600 ####[facility] [address] [place], [address] HCT Normal 40-54 [facility] Comment on above: Result Comment: YANICK EHRNANDEZ, SPOKE WITH AIRAM Performed By: #### L 100.0600 ####[facility] [address] [place], [address] HGB Normal 13.0-16.5 [facility] Comment on above: Result Comment: YANICK HERNANDEZ, SPOKE WITH AIRAM Performed By: #### L 100.0600 ####[facility] [address] [place], [address] BRCon 08-21-2024 RC Normal [facility] Comment on above: Result Comment: [id number] ON RC TRANSFUSED 08/21/24 1107 Performed By: #### B , [facility] ####[facility] [address] [place], [address] Bedside Glucoseon 08-21-2024 FINGERSTICK GLU 69 mg/dL Low 74-106 [facility] Comment on above: Result Comment: ANABELLE GEMENT OF PATIENT CARE PER NURSING PROTOCOL Performed By: #### L 501.080 ####[facility] [address] [place], [address] FINGERSTICK GLU 87 mg/dL Normal 74-106 [facility] Comment on above: Result Comment: ANABELLE GEMENT OF PATIENT CARE PER NURSING PROTOCOL Performed By: #### L 501.080 ####[facility] [address] [place], [address] FINGERSTICK GLU 65 mg/dL Low 74-106 [facility] Comment on above: Result Comment: ANABELLE GEMENT OF PATIENT CARE PER NURSING PROTOCOL Performed By: #### L 501.080 ####[facility] [address] [place], [address] FINGERSTICK GLU 87 mg/dL Normal 74-106 [facility] Comment on above: Result Comment: ANABELLE GEMENT OF PATIENT CARE PER NURSING PROTOCOL Performed By: #### L 501.080 ####[facility] [address] [place], [address] FINGERSTICK GLU 149 mg/dL High 74-106 [facility] Comment on above: Result Comment: ANABELLE GEMENT OF PATIENT CARE PER NURSING PROTOCOL Performed By: #### L 501.080 ####[facility] [address] [place], [address] FINGERSTICK GLU 76 mg/dL Normal 74-106 [facility] Comment on above: Result Comment: ANABELLE GEMENT OF PATIENT CARE PER NURSING PROTOCOL Performed By: #### L 501.080 ####[facility] [address] [place], [address] FINGERSTICK GLU 100 mg/dL Normal 74-106 [facility] Comment on above: Result Comment: ANABELLE GEMENT OF PATIENT CARE PER NURSING PROTOCOL Performed By: #### L 501.080 ####[facility] [address] [place], [address] FINGERSTICK GLU 60 mg/dL Low 74-106 [facility] Comment on above: Result Comment: ANABELLE GEMENT OF PATIENT CARE PER NURSING PROTOCOL Performed By: #### L 501.080 ####[facility] [address] [place], [address] CBC W/Diff, Automatedon 04-2 SMEAR COMMENT SCANNED Normal [facility] Comment on above: Performed By: #### L 100.0100 ####[facility] [address] [place], [address] HH, Hemoglobin AND Hematocri ton 08-21-2024 Hematocrit (Bld) [Volume fraction] 21.3 % Low 40-54 [facility] Comment on above: Order Comment: Comme nts: Post Transfusion Performed By: #### L 100.0600 ####[facility] [address] [place], [address] Hemoglobin (Bld) [Mass/Vol] 7.0 g/dL Low 13.0-16.5 [facility] Comment on above: Order Comment: Comme nts: Post Transfusion Performed By: #### L 100.0600 ####[facility] [address] [place], [address] Renal Profileon 08-21-2024 Albumin [Mass/Vol] 2.8 g/dL Low 3.4-4.8 [facility] Comment on above: Performed By: #### L 500.3600 ####[facility] [address] [place], [address] BUN/CRE 6.3 RATIO Low 10-20 [facility] Comment on above: Performed By: #### L 500.3600 ####[facility] [address] [place], [address] Calcium [Mass/Vol] 8.0 mg/dL Normal 7.6-11.0 [facility] Comment on above: Performed By: #### L 500.3600 ####[facility] [address] [place], [address] Chloride [Moles/Vol] 106 mmol/L Normal 98-108 [facility] Comment on above: Performed By: #### L 500.3600 ####[facility] [address] [place], [address] CO2 [Moles/Vol] 23.8 mmol/L Normal 21.0-32.0 [facility] Comment on above: Performed By: #### L 500.3600 ####[facility] [address] [place], [address] Creatinine [Mass/Vol] 3.44 mg/dL High 0.70-1.20 [facility] Comment on above: Performed By: #### L 500.3600 ####[facility] [address] [place], [address] ECRCL 22.87 ml/min Low 50-250 [facility] Comment on above: Performed By: #### L 500.3600 ####[facility] [address] [place], [address] GAP 12 Normal 5-15 [facility] Comment on above: Performed By: #### L 500.3600 ####[facility] [address] [place], [address] GFR/1.73 sq M.predicted among non-blacks MDRD (S/P/Bld) [Vol rate/Area] 19 mL/min/{1.73_m2} Low >60 [facility] Comment on above: Result Comment: mL/m in/1.73m2 CKD-EPI Creatinine Equation (2020) Performed By: #### L 500.3600 ####[facility] [address] [place], [address] Glucose [Mass/Vol] 103 mg/dL High 70-99 [facility] Comment on above: Performed By: #### L 500.3600 ####[facility] [address] [place], [address] Phosphate [Mass/Vol] 4.0 mg/dL Normal 2.7-4.5 [facility] Comment on above: Performed By: #### L 500.3600 ####[facility] [address] [place], [address] Potassium [Moles/Vol] 4.1 mmol/L Normal 3.3-5.1 [facility] Comment on above: Performed By: #### L 500.3600 ####[facility] [address] [place], [address] Sodium [Moles/Vol] 142 mmol/L Normal 133-145 [facility] Comment on above: Performed By: #### L 500.3600 ####[facility] [address] [place], [address] Urea nitrogen [Mass/Vol] 22 mg/dL High 4-19 [facility] Comment on above: Performed By: #### L 500.3600 ####[facility] [address] [place], [address] Type AND Screenon 08-21-2024 ABO and Rh group Nom (Bld) Blood group O Rh(D) negative Normal [facility] Comment on above: Order Comment: CMV N EG? NNumber of units to transfuse: 1Reason for Ordering Blood: AcuteAre the blood/blood products to be transfused? YIs the patient having/had surgery? NWsharonda Santacruz Performed By: #### B , [facility] ####[facility] [address] [place], [address] Bedside Glucoseon 08-20-2024 FINGERSTICK GLU 76 mg/dL Normal 74-106 [facility] Comment on above: Result Comment: ANABELLE GEMENT OF PATIENT CARE PER NURSING PROTOCOL Performed By: #### L 501.080 ####[facility] [address] [place], [address] FINGERSTICK GLU 145 mg/dL High 74-106 [facility] Comment on above: Result Comment: ANABELLE GEMENT OF PATIENT CARE PER NURSING PROTOCOL Performed By: #### L 501.080 ####[facility] [address] [place], [address] FINGERSTICK GLU 163 mg/dL High 74-106 [facility] Comment on above: Result Comment: ANABELLE GEMENT OF PATIENT CARE PER NURSING PROTOCOL Performed By: #### L 501.080 ####[facility] [address] [place], [address] FINGERSTICK GLU 162 mg/dL High 74-106 [facility] Comment on above: Result Comment: ANABELLE GEMENT OF PATIENT CARE PER NURSING PROTOCOL Performed By: #### L 501.080 ####[facility] [address] [place], [address] Magnesiumon 08-20-2024 Magnesium [Mass/Vol] 1.8 mg/dL Normal 1.5-2.2 [facility] Comment on above: Performed By: #### L 501.5200, L500.3600 ####[facility] [address] [place], [address] Magnesium [Mass/Vol] 1.8 mg/dL Normal 1.5-2.2 [facility] Comment on above: Performed By: #### L 500.3600, L501.5200 ####[facility] [address] [place], [address] Renal Profileon 08-20-2024 Albumin [Mass/Vol] 2.4 g/dL Low 3.4-4.8 [facility] Comment on above: Performed By: #### L 501.5200, L500.3600 ####[facility] [address] [place], [address] BUN/CRE 8.9 RATIO Low 10-20 [facility] Comment on above: Performed By: #### L 501.5200, L500.3600 ####[facility] [address] [place], [address] Calcium [Mass/Vol] 8.1 mg/dL Normal 7.6-11.0 [facility] Comment on above: Performed By: #### L 501.5200, L500.3600 ####[facility] [address] [place], [address] Chloride [Moles/Vol] 103 mmol/L Normal 98-108 [facility] Comment on above: Performed By: #### L 501.5200, L500.3600 ####[facility] [address] [place], [address] CO2 [Moles/Vol] 23.3 mmol/L Normal 21.0-32.0 [facility] Comment on above: Performed By: #### L 501.5200, L500.3600 ####[facility] [address] [place], [address] Creatinine [Mass/Vol] 2.43 mg/dL High 0.70-1.20 [facility] Comment on above: Performed By: #### L 501.5200, L500.3600 ####[facility] [address] [place], [address] ECRCL 35.00 ml/min Low 50-250 [facility] Comment on above: Performed By: #### L 501.5200, L500.3600 ####[facility] [address] [place], [address] GAP 11 Normal 5-15 [facility] Comment on above: Performed By: #### L 501.5200, L500.3600 ####[facility] [address] [place], [address] GFR/1.73 sq M.predicted among non-blacks MDRD (S/P/Bld) [Vol rate/Area] 28 mL/min/{1.73_m2} Low >60 [facility] Comment on above: Result Comment: mL/m in/1.73m2 CKD-EPI Creatinine Equation (2020) Performed By: #### L 501.5200, L500.3600 ####[facility] [address] [place], [address] Glucose [Mass/Vol] 190 mg/dL High 70-99 [facility] Comment on above: Performed By: #### L 501.5200, L500.3600 ####[facility] [address] [place], [address] Phosphate [Mass/Vol] 2.9 mg/dL Normal 2.7-4.5 [facility] Comment on above: Performed By: #### L 501.5200, L500.3600 ####[facility] [address] [place], [address] Potassium [Moles/Vol] 4.2 mmol/L Normal 3.3-5.1 [facility] Comment on above: Performed By: #### L 501.5200, L500.3600 ####[facility] [address] [place], [address] Sodium [Moles/Vol] 137 mmol/L Normal 133-145 [facility] Comment on above: Performed By: #### L 501.5200, L500.3600 ####[facility] [address] [place], [address] Urea nitrogen [Mass/Vol] 22 mg/dL High 4-19 [facility] Comment on above: Performed By: #### L 501.5200, L500.3600 ####[facility] [address] [place], [address] Albumin [Mass/Vol] 3.1 g/dL Low 3.4-4.8 [facility] Comment on above: Performed By: #### L 500.3600, L501.5200 ####[facility] [address] [place], [address] BUN/CRE 8.2 RATIO Low 10-20 [facility] Comment on above: Result Comment: AMENDED REPORT 08/20/24 0109 BUN/CRE previously reported as: 8.2 L RATIO Performed By: #### L 500.3600, L501.5200 ####[facility] [address] [place], [address] Calcium [Mass/Vol] 7.9 mg/dL Normal 7.6-11.0 [facility] Comment on above: Performed By: #### L 500.3600, L501.5200 ####[facility] [address] [place], [address] Chloride [Moles/Vol] 105 mmol/L Normal 98-108 [facility] Comment on above: Performed By: #### L 500.3600, L501.5200 ####[facility] [address] [place], [address] CO2 [Moles/Vol] 22.3 mmol/L Normal 21.0-32.0 [facility] Comment on above: Performed By: #### L 500.3600, L501.5200 ####[facility] [address] [place], [address] Creatinine [Mass/Vol] 2.80 mg/dL High 0.70-1.20 [facility] Comment on above: Performed By: #### L 500.3600, L501.5200 ####[facility] [address] [place], [address] ECRCL 31.17 ml/min Low 50-250 [facility] Comment on above: Performed By: #### L 500.3600, L501.5200 ####[facility] [address] [place], [address] GAP 12 Normal 5-15 [facility] Comment on above: Performed By: #### L 500.3600, L501.5200 ####[facility] [address] [place], [address] GFR/1.73 sq M.predicted among non-blacks MDRD (S/P/Bld) [Vol rate/Area] 24 mL/min/{1.73_m2} Low >60 [facility] Comment on above: Result Comment: mL/m in/1.73m2 CKD-EPI Creatinine Equation (2020) Performed By: #### L 500.3600, L501.5200 ####[facility] [address] [place], [address] Glucose [Mass/Vol] 225 mg/dL High 70-99 [facility] Comment on above: Performed By: #### L 500.3600, L501.5200 ####[facility] [address] [place], [address] Phosphate [Mass/Vol] 3.6 mg/dL Normal 2.7-4.5 [facility] Comment on above: Performed By: #### L 500.3600, L501.5200 ####[facility] [address] [place], [address] Potassium [Moles/Vol] 4.0 mmol/L Normal 3.3-5.1 [facility] Comment on above: Performed By: #### L 500.3600, L501.5200 ####[facility] [address] [place], [address] Sodium [Moles/Vol] 139 mmol/L Normal 133-145 [facility] Comment on above: Performed By: #### L 500.3600, L501.5200 ####[facility] [address] [place], [address] Urea nitrogen [Mass/Vol] 23 mg/dL High 4-19 [facility] Comment on above: Performed By: #### L 500.3600, L501.5200 ####[facility] [address] [place], [address] Bedside Glucoseon 08-19-2024 FINGERSTICK GLU 179 mg/dL High -106 [facility] Comment on above: Result Comment: ANABELLE GEMENT OF PATIENT CARE PER NURSING PROTOCOL Performed By: #### L 501.080 ####[facility] [address] [place], [address] FINGERSTICK GLU 180 mg/dL High -106 [facility] Comment on above: Result Comment: ANABELLE GEMENT OF PATIENT CARE PER NURSING PROTOCOL Performed By: #### L 501.080 ####[facility] [address] [place], [address] FINGERSTICK GLU 188 mg/dL High [address] [place] [address] Comment on above: Result Comment: ANABELLE GEMENT OF PATIENT CARE PER NURSING PROTOCOL Performed By: #### L 501.080 ####[facility] [address] [place], [address] FINGERSTICK GLU 184 mg/dL High [address] [place] [address] Comment on above: Result Comment: ANABELLE GEMENT OF PATIENT CARE PER NURSING PROTOCOL Performed By: #### L 501.080 ####[facility] [address] [place], [address] CBC W/Diff, Automatedon 07-29 Absolute Lymph 1.24 X10 3/uL Normal 0.83-4.51 [facility] Comment on above: Performed By: #### L 100.0100 ####[facility] [address] [place], [address] Absolute Neut 11.1 X10 3/uL High 2.0-7.7 [facility] Comment on above: Performed By: #### L 100.0100 ####[facility] [address] [place], [address] Basophils/100 WBC (Bld) 0.4 % Normal 0-1 [facility] Comment on above: Performed By: #### L 100.0100 ####[facility] [address] [place], [address] Eosinophils/100 WBC (Bld) 1.6 % Normal 0-5 [facility] Comment on above: Performed By: #### L 100.0100 ####[facility] [address] [place], [address] Erythrocyte distribution width (RBC) [Ratio] 14.6 % Normal 11.6-14.6 [facility] Comment on above: Performed By: #### L 100.0100 ####[facility] [address] [place], [address] Hematocrit (Bld) [Volume fraction] 24.8 % Low 40-54 [facility] Comment on above: Performed By: #### L 100.0100 ####[facility] [address] [place], [address] Hemoglobin (Bld) [Mass/Vol] 8.2 g/dL Low 13.0-16.5 [facility] Comment on above: Performed By: #### L 100.0100 ####[facility] [address] [place], [address] IG% 1.000 High 0.0-0.9 [facility] Comment on above: Result Comment: IG% - Immature Granulocytes (promyelocytes, myelocytes andmetamyelocytes) > 1% indicates that a LEFT SHIFT is Present. Performed By: #### L 100.0100 ####[facility] [address] [place], [address] Lymphocytes/100 WBC (Bld) 8.9 % Low 19-41 [facility] Comment on above: Performed By: #### L 100.0100 ####[facility] [address] [place], [address] MCH (RBC) [Entitic mass] 30.8 pg Normal 27.0-32.0 [facility] Comment on above: Performed By: #### L 100.0100 ####[facility] [address] [place], [address] MCHC (RBC) [Mass/Vol] 33.1 g/dL Normal 32-36 [facility] Comment on above: Performed By: #### L 100.0100 ####[facility] [address] [place], [address] MCV (RBC) [Entitic vol] 93.2 fL Normal 80-94 [facility] Comment on above: Performed By: #### L 100.0100 ####[facility] [address] [place], [address] Monocytes/100 WBC (Bld) 8.9 % Normal 0-10 [facility] Comment on above: Performed By: #### L 100.0100 ####[facility] [address] [place], [address] Neutrophils/100 WBC (Bld) 79.2 % High 47-70 [facility] Comment on above: Performed By: #### L 100.0100 ####[facility] [address] [place], [address] Nucleated RBC (Bld) [#/Vol] 0 10*3/uL Normal 0-5 [facility] Comment on above: Performed By: #### L 100.0100 ####[facility] [address] [place], [address] Platelet mean volume (Bld) [Entitic vol] 11.2 fL Normal 6.2-12.0 [facility] Comment on above: Performed By: #### L 100.0100 ####[facility] [address] [place], [address] Platelets (Bld) [#/Vol] 309 10*3/uL Normal 150-450 [facility] Comment on above: Performed By: #### L 100.0100 ####[facility] [address] [place], [address] RBC (Bld) [#/Vol] 2.66 10*6/uL Low 4.6-6.2 [facility] Comment on above: Performed By: #### L 100.0100 ####[facility] [address] [place], [address] RDW SD 49.6 fl High 35.1-43.9 [facility] Comment on above: Performed By: #### L 100.0100 ####[facility] [address] [place], [address] WBC (Bld) [#/Vol] 14.0 10*3/uL High 4.4-11.0 [facility] Comment on above: Performed By: #### L 100.0100 ####[facility] [address] [place], [address] Magnesiumon 08-19-2024 Magnesium [Mass/Vol] 1.8 mg/dL Normal 1.5-2.2 [facility] Comment on above: Performed By: #### L 501.5200, L500.3600 ####[facility] [address] [place], [address] Magnesium [Mass/Vol] 1.8 mg/dL Normal 1.5-2.2 [facility] Comment on above: Performed By: #### L 501.5200, L500.3600 ####[facility] [address] [place], [address] Renal Profileon 08-19-2024 Albumin [Mass/Vol] 2.5 g/dL Low 3.4-4.8 [facility] Comment on above: Performed By: #### L 501.5200, L500.3600 ####[facility] [address] [place], [address] BUN/CRE 8.5 RATIO Low 10-20 [facility] Comment on above: Performed By: #### L 501.5200, L500.3600 ####[facility] [address] [place], [address] Calcium [Mass/Vol] 8.3 mg/dL Normal 7.6-11.0 [facility] Comment on above: Performed By: #### L 501.5200, L500.3600 ####[facility] [address] [place], [address] Chloride [Moles/Vol] 103 mmol/L Normal 98-108 [facility] Comment on above: Performed By: #### L 501.5200, L500.3600 ####[facility] [address] [place], [address] CO2 [Moles/Vol] 22.3 mmol/L Normal 21.0-32.0 [facility] Comment on above: Performed By: #### L 501.5200, L500.3600 ####[facility] [address] [place], [address] Creatinine [Mass/Vol] 3.08 mg/dL High 0.70-1.20 [facility] Comment on above: Performed By: #### L 501.5200, L500.3600 ####[facility] [address] [place], [address] ECRCL 28.34 ml/min Low 50-250 [facility] Comment on above: Performed By: #### L 501.5200, L500.3600 ####[facility] [address] [place], [address] GAP 11 Normal 5-15 [facility] Comment on above: Performed By: #### L 501.5200, L500.3600 ####[facility] [address] [place], [address] GFR/1.73 sq M.predicted among non-blacks MDRD (S/P/Bld) [Vol rate/Area] 21 mL/min/{1.73_m2} Low >60 [facility] Comment on above: Result Comment: mL/m in/1.73m2 CKD-EPI Creatinine Equation (2020) Performed By: #### L 501.5200, L500.3600 ####[facility] [address] [place], [address] Glucose [Mass/Vol] 202 mg/dL High 70-99 [facility] Comment on above: Performed By: #### L 501.5200, L500.3600 ####[facility] [address] [place], [address] Phosphate [Mass/Vol] 2.3 mg/dL Low 2.7-4.5 [facility] Comment on above: Performed By: #### L 501.5200, L500.3600 ####[facility] [address] [place], [address] Potassium [Moles/Vol] 3.8 mmol/L Normal 3.3-5.1 [facility] Comment on above: Performed By: #### L 501.5200, L500.3600 ####[facility] [address] [place], [address] Sodium [Moles/Vol] 136 mmol/L Normal 133-145 [facility] Comment on above: Performed By: #### L 501.5200, L500.3600 ####[facility] [address] [place], [address] Urea nitrogen [Mass/Vol] 26 mg/dL High 4-19 [facility] Comment on above: Performed By: #### L 501.5200, L500.3600 ####[facility] [address] [place], [address] Albumin [Mass/Vol] 2.3 g/dL Low 3.4-4.8 [facility] Comment on above: Performed By: #### L 501.5200, L500.3600 ####[facility] [address] [place], [address] BUN/CRE 8.5 RATIO Low 10-20 [facility] Comment on above: Performed By: #### L 501.5200, L500.3600 ####[facility] [address] [place], [address] Calcium [Mass/Vol] 7.9 mg/dL Normal 7.6-11.0 [facility] Comment on above: Performed By: #### L 501.5200, L500.3600 ####[facility] [address] [place], [address] Chloride [Moles/Vol] 106 mmol/L Normal 98-108 [facility] [facility] Comment on above: Performed By: #### L 501.5200, L500.3600 ####[facility] [address] [place], [address] CO2 [Moles/Vol] 21.6 mmol/L Normal 21.0-32.0 [facility] Comment on above: Performed By: #### L 501.5200, L500.3600 ####[facility] [address] [place], [address] Creatinine [Mass/Vol] 3.66 mg/dL High 0.70-1.20 [facility] Comment on above: Performed By: #### L 501.5200, L500.3600 ####[facility] [address] [place], [address] ECRCL 23.85 ml/min Low 50-250 [facility] Comment on above: Performed By: #### L 501.5200, L500.3600 ####[facility] [address] [place], [address] GAP 11 Normal 5-15 [facility] Comment on above: Performed By: #### L 501.5200, L500.3600 ####[facility] [address] [place], [address] GFR/1.73 sq M.predicted among non-blacks MDRD (S/P/Bld) [Vol rate/Area] 17 mL/min/{1.73_m2} Low >60 [facility] Comment on above: Result Comment: mL/m in/1.73m2 CKD-EPI Creatinine Equation (2020) Performed By: #### L 501.5200, L500.3600 ####[facility] [address] [place], [address] Glucose [Mass/Vol] 204 mg/dL High 70-99 [facility] Comment on above: Performed By: #### L 501.5200, L500.3600 ####[facility] [address] [place], [address] Phosphate [Mass/Vol] 2.5 mg/dL Low 2.7-4.5 [facility] Comment on above: Performed By: #### L 501.5200, L500.3600 ####[facility] [address] [place], [address] Potassium [Moles/Vol] 3.9 mmol/L Normal 3.3-5.1 [facility] Comment on above: Performed By: #### L 501.5200, L500.3600 ####[facility] [address] [place], [address] Sodium [Moles/Vol] 139 mmol/L Normal 133-145 [facility] Comment on above: Performed By: #### L 501.5200, L500.3600 ####[facility] [address] [place], [address] Urea nitrogen [Mass/Vol] 31 mg/dL High 4-19 [facility] Comment on above: Performed By: #### L 501.5200, L500.3600 ####[facility] [address] [place], [address] Bedside Glucoseon 08-18-2024 FINGERSTICK GLU 178 mg/dL High 74-106 [facility] Comment on above: Result Comment: ANABELLE GEMENT OF PATIENT CARE PER NURSING PROTOCOL Performed By: #### L 501.080 ####[facility] [address] [place], [address] FINGERSTICK GLU 176 mg/dL High 74-106 [facility] Comment on above: Result Comment: ANABELLE GEMENT OF PATIENT CARE PER NURSING PROTOCOL Performed By: #### L 501.080 ####[facility] [address] [place], [address] FINGERSTICK GLU 186 mg/dL High 74-106 [facility] Comment on above: Result Comment: ANABELLE GEMENT OF PATIENT CARE PER NURSING PROTOCOL Performed By: #### L 501.080 ####[facility] [address] [place], [address] CBC-Complete Blood Cnt No Di ffon 08-18-2024 HCT Normal 40-54 [facility] Comment on above: Result Comment: Canc elled via OM: Duplicate Order Performed By: #### L 100.0500 ####[facility] [address] [place], [address] HGB Normal 13.0-16.5 [facility] Comment on above: Result Comment: Canc elled via OM: Duplicate Order Performed By: #### L 100.0500 ####[facility] [address] [place], [address] MCH Normal 27.0-32.0 [facility] Comment on above: Result Comment: Canc elled via OM: Duplicate Order Performed By: #### L 100.0500 ####[facility] [address] [place], [address] MCHC Normal 32-36 [facility] Comment on above: Result Comment: Canc elled via OM: Duplicate Order Performed By: #### L 100.0500 ####[facility] [address] [place], [address] MCV Normal 80-94 [facility] Comment on above: Result Comment: Canc elled via OM: Duplicate Order Performed By: #### L 100.0500 ####[facility] [address] [place], [address] PLT Normal 150-450 [facility] Comment on above: Result Comment: Canc elled via OM: Duplicate Order Performed By: #### L 100.0500 ####[facility] [address] [place], [address] RBC Normal 4.6-6.2 [facility] Comment on above: Result Comment: Canc elled via OM: Duplicate Order Performed By: #### L 100.0500 ####[facility] [address] [place], [address] RDW CV Normal 11.6-14.6 [facility] Comment on above: Result Comment: Canc elled via OM: Duplicate Order Performed By: #### L 100.0500 ####[facility] [address] [place], [address] RDW SD Normal 35.1-43.9 [facility] Comment on above: Result Comment: Canc elled via OM: Duplicate Order Performed By: #### L 100.0500 ####[facility] [address] [place], [address] WBC Normal 4.4-11.0 [facility] Comment on above: Result Comment: Canc elled via OM: Duplicate Order Performed By: #### L 100.0500 ####[facility] [address] [place], [address] Erythrocyte distribution width (RBC) [Ratio] 14.8 % High 11.6-14.6 [facility] Comment on above: Performed By: #### L 100.0500, L500.3600, L501.5200 ####[facility] [address] [place], [address] Hematocrit (Bld) [Volume fraction] 22.5 % Low 40-54 [facility] Comment on above: Performed By: #### L 100.0500, L500.3600, L501.5200 ####[facility] [address] [place], [address] Hemoglobin (Bld) [Mass/Vol] 7.6 g/dL Low 13.0-16.5 [facility] Comment on above: Performed By: #### L 100.0500, L500.3600, L501.5200 ####[facility] [address] [place], [address] MCH (RBC) [Entitic mass] 31.5 pg Normal 27.0-32.0 [facility] Comment on above: Performed By: #### L 100.0500, L500.3600, L501.5200 ####[facility] [address] [place], [address] MCHC (RBC) [Mass/Vol] 33.8 g/dL Normal 32-36 [facility] Comment on above: Performed By: #### L 100.0500, L500.3600, L501.5200 ####[facility] [address] [place], [address] MCV (RBC) [Entitic vol] 93.4 fL Normal 80-94 [facility] Comment on above: Performed By: #### L 100.0500, L500.3600, L501.5200 ####[facility] [address] [place], [address] Platelet mean volume (Bld) [Entitic vol] 11.6 fL Normal 6.2-12.0 [facility] Comment on above: Performed By: #### L 100.0500, L500.3600, L501.5200 ####[facility] [address] [place], [address] Platelets (Bld) [#/Vol] 237 10*3/uL Normal 150-450 [facility] Comment on above: Performed By: #### L 100.0500, L500.3600, L501.5200 ####[facility] [address] [place], [address] RBC (Bld) [#/Vol] 2.41 10*6/uL Low 4.6-6.2 [facility] Comment on above: Performed By: #### L 100.0500, L500.3600, L501.5200 ####[facility] [address] [place], [address] RDW SD 50.2 fl High 35.1-43.9 [facility] Comment on above: Performed By: #### L 100.0500, L500.3600, L501.5200 ####[facility] [address] [place], [address] WBC (Bld) [#/Vol] 12.5 10*3/uL High 4.4-11.0 [facility] Comment on above: Performed By: #### L 100.0500, L500.3600, L501.5200 ####[facility] [address] [place], [address] CXR for Line Placementon CXR for Line Placement Normal [facility] Magnesiumon 08-18-2024 Magnesium [Mass/Vol] 1.9 mg/dL Normal 1.5-2.2 [facility] Comment on above: Performed By: #### L 100.0500, L500.3600, L501.5200 ####[facility] [address] [place], [address] Procedure Reporton Procedure Report Normal [facility] Renal Profileon 08-18-2024 Albumin [Mass/Vol] 2.3 g/dL Low 3.4-4.8 [facility] Comment on above: Performed By: #### L 500.3600 ####[facility] [address] [place], [address] BUN/CRE 8.3 RATIO Low 10-20 [facility] Comment on above: Performed By: #### L 500.3600 ####[facility] [address] [place], [address] Calcium [Mass/Vol] 7.5 mg/dL Low 7.6-11.0 [facility] Comment on above: Performed By: #### L 500.3600 ####[facility] [address] [place], [address] Chloride [Moles/Vol] 109 mmol/L High 98-108 [facility] Comment on above: Performed By: #### L 500.3600 ####[facility] [address] [place], [address] CO2 [Moles/Vol] 19.9 mmol/L Low 21.0-32.0 [facility] Comment on above: Performed By: #### L 500.3600 ####[facility] [address] [place], [address] Creatinine [Mass/Vol] 5.46 mg/dL High 0.70-1.20 [facility] Comment on above: Performed By: #### L 500.3600 ####[facility] [address] [place], [address] ECRCL 15.96 ml/min Low 50-250 [facility] Comment on above: Performed By: #### L 500.3600 ####[facility] [address] [place], [address] GAP 12 Normal 5-15 [facility] Comment on above: Performed By: #### L 500.3600 ####[facility] [address] [place], [address] GFR/1.73 sq M.predicted among non-blacks MDRD (S/P/Bld) [Vol rate/Area] 11 mL/min/{1.73_m2} Low >60 [facility] Comment on above: Result Comment: mL/m in/1.73m2 CKD-EPI Creatinine Equation (2020) Performed By: #### L 500.3600 ####[facility] [address] [place], [address] Glucose [Mass/Vol] 190 mg/dL High 70-99 [facility] Comment on above: Performed By: #### L 500.3600 ####[facility] [address] [place], [address] Phosphate [Mass/Vol] 3.2 mg/dL Normal 2.7-4.5 [facility] Comment on above: Performed By: #### L 500.3600 ####[facility] [address] [place], [address] Potassium [Moles/Vol] 3.8 mmol/L Normal 3.3-5.1 [facility] Comment on above: Performed By: #### L 500.3600 ####[facility] [address] [place], [address] Sodium [Moles/Vol] 141 mmol/L Normal 133-145 [facility] Comment on above: Performed By: #### L 500.3600 ####[facility] [address] [place], [address] Urea nitrogen [Mass/Vol] 45 mg/dL High 4-19 [facility] Comment on above: Performed By: #### L 500.3600 ####[facility] [address] [place], [address] Albumin [Mass/Vol] 2.2 g/dL Low 3.4-4.8 [facility] Comment on above: Performed By: #### L 100.0500, L500.3600, L501.5200 ####[facility] [address] [place], [address] BUN/CRE 8.2 RATIO Low 10-20 [facility] Comment on above: Result Comment: AMENDED REPORT 08/18/24 0607 BUN/CRE previously reported as: 8.2 L RATIO Performed By: #### L 100.0500, L500.3600, L501.5200 ####[facility] [address] [place], [address] Calcium [Mass/Vol] 6.9 mg/dL Low 7.6-11.0 [facility] Comment on above: Performed By: #### L 100.0500, L500.3600, L501.5200 ####[facility] [address] [place], [address] Chloride [Moles/Vol] 109 mmol/L High 98-108 [facility] Comment on above: Performed By: #### L 100.0500, L500.3600, L501.5200 ####[facility] [address] [place], [address] CO2 [Moles/Vol] 18.0 mmol/L Low 21.0-32.0 [facility] Comment on above: Performed By: #### L 100.0500, L500.3600, L501.5200 ####[facility] [address] [place], [address] Creatinine [Mass/Vol] 7.62 mg/dL Invalid Interpretation Code 0.70-1.20 [facility] Comment on above: Result Comment: Crit ical Result(s) Called at: 0552 by:??YORDY HAVEN TO [place] Results read back by same. Performed By: #### L 100.0500, L500.3600, L501.5200 ####[facility] [address] [place], [address] ECRCL 11.44 ml/min Low 50-250 [facility] Comment on above: Performed By: #### L 100.0500, L500.3600, L501.5200 ####[facility] [address] [place], [address] GAP 15 Normal 5-15 [facility] Comment on above: Performed By: #### L 100.0500, L500.3600, L501.5200 ####[facility] [address] [place], [address] GFR/1.73 sq M.predicted among non-blacks MDRD (S/P/Bld) [Vol rate/Area] 7 mL/min/{1.73_m2} Low >60 [facility] Comment on above: Result Comment: mL/m in/1.73m2 CKD-EPI Creatinine Equation (2020) Performed By: #### L 100.0500, L500.3600, L501.5200 ####[facility] [address] [place], [address] Glucose [Mass/Vol] 194 mg/dL High 70-99 [facility] Comment on above: Performed By: #### L 100.0500, L500.3600, L501.5200 ####[facility] [address] [place], [address] Phosphate [Mass/Vol] 4.3 mg/dL Normal 2.7-4.5 [facility] Comment on above: Performed By: #### L 100.0500, L500.3600, L501.5200 ####[facility] [address] [place], [address] Potassium [Moles/Vol] 3.5 mmol/L Normal 3.3-5.1 [facility] Comment on above: Performed By: #### L 100.0500, L500.3600, L501.5200 ####[facility] [address] [place], [address] Sodium [Moles/Vol] 141 mmol/L Normal 133-145 [facility] Comment on above: Performed By: #### L 100.0500, L500.3600, L501.5200 ####[facility] [address] [place], [address] Urea nitrogen [Mass/Vol] 62 mg/dL High 4-19 [facility] Comment on above: Performed By: #### L 100.0500, L500.3600, L501.5200 ####[facility] [address] [place], [address] Basic Metabolic Profile (BMP )on 08-17-2024 BUN/CRE 8.6 RATIO Low 10-20 [facility] Comment on above: Performed By: #### L 100.0100, L500.2500 ####[facility] [address] [place], [address] Calcium [Mass/Vol] 6.8 mg/dL Low 7.6-11.0 [facility] Comment on above: Performed By: #### L 100.0100, L500.2500 ####[facility] [address] [place], [address] Chloride [Moles/Vol] 109 mmol/L High 98-108 [facility] Comment on above: Performed By: #### L 100.0100, L500.2500 ####[facility] [address] [place], [address] CO2 [Moles/Vol] 18.8 mmol/L Low 21.0-32.0 [facility] Comment on above: Performed By: #### L 100.0100, L500.2500 ####[facility] [address] [place], [address] Creatinine [Mass/Vol] 7.20 mg/dL High 0.70-1.20 [facility] Comment on above: Performed By: #### L 100.0100, L500.2500 ####[facility] [address] [place], [address] ECRCL 11.98 ml/min Low 50-250 [facility] Comment on above: Performed By: #### L 100.0100, L500.2500 ####[facility] [address] [place], [address] GAP 14 Normal 5-15 [facility] Comment on above: Performed By: #### L 100.0100, L500.2500 ####[facility] [address] [place], [address] GFR/1.73 sq M.predicted among non-blacks MDRD (S/P/Bld) [Vol rate/Area] 8 mL/min/{1.73_m2} Low >60 [facility] Comment on above: Result Comment: mL/m in/1.73m2 CKD-EPI Creatinine Equation (2020) Performed By: #### L 100.0100, L500.2500 ####[facility] [address] [place], [address] Glucose [Mass/Vol] 130 mg/dL High 70-99 [facility] Comment on above: Performed By: #### L 100.0100, L500.2500 ####[facility] [address] [place], [address] Potassium [Moles/Vol] 3.5 mmol/L Normal 3.3-5.1 [facility] Comment on above: Performed By: #### L 100.0100, L500.2500 ####[facility] [address] [place], [address] Sodium [Moles/Vol] 141 mmol/L Normal 133-145 [facility] Comment on above: Performed By: #### L 100.0100, L500.2500 ####[facility] [address] [place], [address] Urea nitrogen [Mass/Vol] 62 mg/dL High 4-19 [facility] Comment on above: Performed By: #### L 100.0100, L500.2500 ####[facility] [address] [place], [address] Bedside Glucoseon 08-17-2024 FINGERSTICK GLU 147 mg/dL High 74-106 [facility] Comment on above: Result Comment: ANABELLE GEMENT OF PATIENT CARE PER NURSING PROTOCOL Performed By: #### L 501.080 ####[facility] [address] [place], [address] FINGERSTICK GLU 112 mg/dL High 74-106 [facility] Comment on above: Result Comment: ANABELLE GEMENT OF PATIENT CARE PER NURSING PROTOCOL Performed By: #### L 501.080 ####[facility] [address] [place], [address] FINGERSTICK GLU 83 mg/dL Normal 74-106 [facility] Comment on above: Result Comment: ANABELLE GEMENT OF PATIENT CARE PER NURSING PROTOCOL Performed By: #### L 501.080 ####[facility] [address] [place], [address] FINGERSTICK GLU 149 mg/dL High 74-106 [facility] Comment on above: Result Comment: ANABELLE BACH OF PATIENT CARE PER NURSING PROTOCOL Performed By: #### L 501.080 ####[facility] [address] [place], [address] CBC W/Diff, Automatedon 04-2 SMEAR COMMENT SCANNED Normal [facility] Comment on above: Performed By: #### L 100.0100, L500.2500 ####[facility] [address] [place], [address] CBC-Complete Blood Cnt No Di ffon 08-17-2024 HCT Normal 40-54 [facility] Comment on above: Result Comment: Canc elled via OM: MD Ordered Performed By: #### L 100.0500 ####[facility] [address] [place], [address] Result Comment: CANC ELLATION ORDER Performed By: #### L 100.0500, L500.3600 ####[facility] [address] [place], [address] HGB Normal 13.0-16.5 [facility] Comment on above: Result Comment: Canc elled via OM: MD Ordered Performed By: #### L 100.0500 ####[facility] [address] [place], [address] Result Comment: CANC ELLATION ORDER Performed By: #### L 100.0500, L500.3600 ####[facility] [address] [place], [address] MCH Normal 27.0-32.0 [facility] Comment on above: Result Comment: Canc elled via OM: MD Ordered Performed By: #### L 100.0500 ####[facility] [address] [place], [address] Result Comment: CANC ELLATION ORDER Performed By: #### L 100.0500, L500.3600 ####[facility] [address] [place], [address] MCHC Normal 32-36 [facility] Comment on above: Result Comment: Canc elled via OM: MD Ordered Performed By: #### L 100.0500 ####[facility] [address] [place], [address] Result Comment: CANC ELLATION ORDER Performed By: #### L 100.0500, L500.3600 ####[facility] [address] [place], [address] MCV Normal 80-94 [facility] Comment on above: Result Comment: Canc elled via OM: MD Ordered Performed By: #### L 100.0500 ####[facility] [address] [place], [address] Result Comment: CANC ELLATION ORDER Performed By: #### L 100.0500, L500.3600 ####[facility] [address] [place], [address] PLT Normal 150-450 [facility] Comment on above: Result Comment: Canc elled via OM: MD Ordered Performed By: #### L 100.0500 ####[facility] [address] [place], [address] Result Comment: CANC ELLATION ORDER Performed By: #### L 100.0500, L500.3600 ####[facility] [address] [place], [address] RBC Normal 4.6-6.2 [facility] Comment on above: Result Comment: Canc elled via OM: MD Ordered Performed By: #### L 100.0500 ####[facility] [address] [place], [address] Result Comment: CANC ELLATION ORDER Performed By: #### L 100.0500, L500.3600 ####[facility] [address] [place], [address] RDW CV Normal 11.6-14.6 [facility] Comment on above: Result Comment: Canc elled via OM: MD Ordered Performed By: #### L 100.0500 ####[facility] [address] [place], [address] Result Comment: CANC ELLATION ORDER Performed By: #### L 100.0500, L500.3600 ####[facility] [address] [place], [address] RDW SD Normal 35.1-43.9 [facility] Comment on above: Result Comment: Canc elled via OM: MD Ordered Performed By: #### L 100.0500 ####[facility] [address] [place], [address] Result Comment: CANC ELLATION ORDER Performed By: #### L 100.0500, L500.3600 ####[facility] [address] [place], [address] WBC Normal 4.4-11.0 [facility] Comment on above: Result Comment: Canc elled via OM: MD Ordered Performed By: #### L 100.0500 ####[facility] [address] [place], [address] Result Comment: CANC ELLATION ORDER Performed By: #### L 100.0500, L500.3600 ####[facility] [address] [place], [address] Erythrocyte distribution width (RBC) [Ratio] 14.7 % High 11.6-14.6 [facility] Comment on above: Performed By: #### L 300.4310, L100.0500, L500.3600, L501.5200 ####[facility] [address] [place], [address] Hematocrit (Bld) [Volume fraction] 24.1 % Low 40-54 [facility] Comment on above: Performed By: #### L 300.4310, L100.0500, L500.3600, L501.5200 ####[facility] [address] [place], [address] Hemoglobin (Bld) [Mass/Vol] 8.2 g/dL Low 13.0-16.5 [facility] Comment on above: Performed By: #### L 300.4310, L100.0500, L500.3600, L501.5200 ####[facility] [address] [place], [address] MCH (RBC) [Entitic mass] 31.1 pg Normal 27.0-32.0 [facility] Comment on above: Performed By: #### L 300.4310, L100.0500, L500.3600, L501.5200 ####[facility] [address] [place], [address] MCHC (RBC) [Mass/Vol] 34.0 g/dL Normal 32-36 [facility] Comment on above: Performed By: #### L 300.4310, L100.0500, L500.3600, L501.5200 ####[facility] [address] [place], [address] MCV (RBC) [Entitic vol] 91.3 fL Normal 80-94 [facility] Comment on above: Performed By: #### L 300.4310, L100.0500, L500.3600, L501.5200 ####[facility] [address] [place], [address] Platelet mean volume (Bld) [Entitic vol] 11.8 fL Normal 6.2-12.0 [facility] Comment on above: Performed By: #### L 300.4310, L100.0500, L500.3600, L501.5200 ####[facility] [address] [place], [address] Platelets (Bld) [#/Vol] 207 10*3/uL Normal 150-450 [facility] Comment on above: Performed By: #### L 300.4310, L100.0500, L500.3600, L501.5200 ####[facility] [address] [place], [address] RBC (Bld) [#/Vol] 2.64 10*6/uL Low 4.6-6.2 [facility] Comment on above: Performed By: #### L 300.4310, L100.0500, L500.3600, L501.5200 ####[facility] [address] [place], [address] RDW SD 49.5 fl High 35.1-43.9 [facility] Comment on above: Performed By: #### L 300.4310, L100.0500, L500.3600, L501.5200 ####[facility] [address] [place], [address] WBC (Bld) [#/Vol] 12.4 10*3/uL High 4.4-11.0 [facility] Comment on above: Performed By: #### L 300.4310, L100.0500, L500.3600, L501.5200 ####[facility] [address] [place], [address] Chest 1 View (Portable)on Chest 1 View (Portable) Normal [facility] Magnesiumon 08-17-2024 Magnesium [Mass/Vol] 1.9 mg/dL Normal 1.5-2.2 [facility] Comment on above: Performed By: #### L 300.4310, L100.0500, L500.3600, L501.5200 ####[facility] [address] [place], [address] Partial Thromboplast Timeon 08-17-2024 aPTT Coag (Bld) [Time] 36.5 s High 24.1-36.2 [facility] Comment on above: Performed By: #### L 300.4310, L100.0500, L500.3600, L501.5200 ####[facility] [address] [place], [address] Renal Profileon 08-17-2024 ALB Normal 3.4-4.8 [facility] Comment on above: Result Comment: OM C ANCEL REQUEST Performed By: #### L 100.0500, L500.3600 ####[facility] [address] [place], [address] BUN Normal 4-19 [facility] Comment on above: Result Comment: OM C ANCEL REQUEST Performed By: #### L 100.0500, L500.3600 ####[facility] [address] [place], [address] BUN/CRE Normal 10-20 [facility] Comment on above: Result Comment: OM C ANCEL REQUEST Performed By: #### L 100.0500, L500.3600 ####[facility] [address] [place], [address] Calcium Normal 7.6-11.0 [facility] Comment on above: Result Comment: OM C ANCEL REQUEST Performed By: #### L 100.0500, L500.3600 ####[facility] [address] [place], [address] CL Normal 98-108 [facility] Comment on above: Result Comment: OM C ANCEL REQUEST Performed By: #### L 100.0500, L500.3600 ####[facility] [address] [place], [address] CO2 Normal 21.0-32.0 [facility] Comment on above: Result Comment: OM C ANCEL REQUEST Performed By: #### L 100.0500, L500.3600 ####[facility] [address] [place], [address] CREAT,SERUM Normal 0.70-1.20 [facility] Comment on above: Result Comment: OM C ANCEL REQUEST Performed By: #### L 100.0500, L500.3600 ####[facility] [address] [place], [address] eGFR Normal >60 [facility] Comment on above: Result Comment: OM C ANCEL REQUEST Performed By: #### L 100.0500, L500.3600 ####[facility] [address] [place], [address] GAP Normal 5-15 [facility] Comment on above: Result Comment: OM C ANCEL REQUEST Performed By: #### L 100.0500, L500.3600 ####[facility] [address] [place], [address] GLU Normal 70-99 [facility] Comment on above: Result Comment: OM C ANCEL REQUEST Performed By: #### L 100.0500, L500.3600 ####[facility] [address] [place], [address] PHOS Normal 2.7-4.5 [facility] Comment on above: Result Comment: OM C ANCEL REQUEST Performed By: #### L 100.0500, L500.3600 ####[facility] [address] [place], [address] Potassium Normal 3.3-5.1 [facility] Comment on above: Result Comment: OM C ANCEL REQUEST Performed By: #### L 100.0500, L500.3600 ####[facility] [address] [place], [address] Renal Profile Normal 133-145 [facility] Comment on above: Result Comment: OM C ANCEL REQUEST Performed By: #### L 100.0500, L500.3600 ####[facility] [address] [place], [address] Albumin [Mass/Vol] 2.4 g/dL Low 3.4-4.8 [facility] Comment on above: Performed By: #### L 300.4310, L100.0500, L500.3600, L501.5200 ####[facility] [address] [place], [address] BUN/CRE 8.6 RATIO Low 10-20 [facility] Comment on above: Performed By: #### L 300.4310, L100.0500, L500.3600, L501.5200 ####[facility] [address] [place], [address] Calcium [Mass/Vol] 6.8 mg/dL Low 7.6-11.0 [facility] Comment on above: Performed By: #### L 300.4310, L100.0500, L500.3600, L501.5200 ####[facility] [address] [place], [address] Chloride [Moles/Vol] 115 mmol/L High 98-108 [facility] Comment on above: Performed By: #### L 300.4310, L100.0500, L500.3600, L501.5200 ####[facility] [address] [place], [address] CO2 [Moles/Vol] 18.3 mmol/L Low 21.0-32.0 [facility] Comment on above: Performed By: #### L 300.4310, L100.0500, L500.3600, L501.5200 ####[facility] [address] [place], [address] Creatinine [Mass/Vol] 7.19 mg/dL High 0.70-1.20 [facility] Comment on above: Performed By: #### L 300.4310, L100.0500, L500.3600, L501.5200 ####[facility] [address] [place], [address] ECRCL 12.08 ml/min Low 50-250 [facility] Comment on above: Performed By: #### L 300.4310, L100.0500, L500.3600, L501.5200 ####[facility] [address] [place], [address] GAP 14 Normal 5-15 [facility] Comment on above: Performed By: #### L 300.4310, L100.0500, L500.3600, L501.5200 ####[facility] [address] [place], [address] GFR/1.73 sq M.predicted among non-blacks MDRD (S/P/Bld) [Vol rate/Area] 8 mL/min/{1.73_m2} Low >60 [facility] Comment on above: Result Comment: mL/m in/1.73m2 CKD-EPI Creatinine Equation (2020) Performed By: #### L 300.4310, L100.0500, L500.3600, L501.5200 ####[facility] [address] [place], [address] Glucose [Mass/Vol] 122 mg/dL High 70-99 [facility] Comment on above: Performed By: #### L 300.4310, L100.0500, L500.3600, L501.5200 ####[facility] [address] [place], [address] Phosphate [Mass/Vol] 3.7 mg/dL Normal 2.7-4.5 [facility] Comment on above: Performed By: #### L 300.4310, L100.0500, L500.3600, L501.5200 ####[facility] [address] [place], [address] Potassium [Moles/Vol] 3.6 mmol/L Normal 3.3-5.1 [facility] Comment on above: Performed By: #### L 300.4310, L100.0500, L500.3600, L501.5200 ####[facility] [address] [place], [address] Sodium [Moles/Vol] 147 mmol/L High 133-145 [facility] Comment on above: Performed By: #### L 300.4310, L100.0500, L500.3600, L501.5200 ####[facility] [address] [place], [address] Urea nitrogen [Mass/Vol] 62 mg/dL High 4-19 [facility] Comment on above: Performed By: #### L 300.4310, L100.0500, L500.3600, L501.5200 ####[facility] [address] [place], [address] Basic Metabolic Profile (BMP )on 08-16-2024 BUN/CRE 9.0 RATIO Low -20 [facility] Comment on above: Performed By: #### L 500.2500, L100.0100 ####[facility] [address] [place], [address] Calcium [Mass/Vol] 6.9 mg/dL Low 7.6-11.0 [facility] Comment on above: Performed By: #### L 500.2500, L100.0100 ####[facility] [address] [place], [address] Chloride [Moles/Vol] 108 mmol/L Normal 98-108 [facility] Comment on above: Performed By: #### L 500.2500, L100.0100 ####[facility] [address] [place], [address] CO2 [Moles/Vol] 20.7 mmol/L Low 21.0-32.0 [facility] Comment on above: Performed By: #### L 500.2500, L100.0100 ####[facility] [address] [place], [address] Creatinine [Mass/Vol] 6.20 mg/dL High 0.70-1.20 [facility] Comment on above: Performed By: #### L 500.2500, L100.0100 ####[facility] [address] [place], [address] ECRCL 13.91 ml/min Low 50-250 [facility] Comment on above: Performed By: #### L 500.2500, L100.0100 ####[facility] [address] [place], [address] GAP 12 Normal 5-15 [facility] Comment on above: Performed By: #### L 500.2500, L100.0100 ####[facility] [address] [place], [address] GFR/1.73 sq M.predicted among non-blacks MDRD (S/P/Bld) [Vol rate/Area] 9 mL/min/{1.73_m2} Low >60 [facility] Comment on above: Result Comment: mL/m in/1.73m2 CKD-EPI Creatinine Equation (2020) Performed By: #### L 500.2500, L100.0100 ####[facility] [address] [place], [address] Glucose [Mass/Vol] 173 mg/dL High 70-99 [facility] Comment on above: Performed By: #### L 500.2500, L100.0100 ####[facility] [address] [place], [address] Potassium [Moles/Vol] 3.5 mmol/L Normal 3.3-5.1 [facility] Comment on above: Performed By: #### L 500.2500, L100.0100 ####[facility] [address] [place], [address] Sodium [Moles/Vol] 141 mmol/L Normal 133-145 [facility] Comment on above: Performed By: #### L 500.2500, L100.0100 ####[facility] [address] [place], [address] Urea nitrogen [Mass/Vol] 56 mg/dL High 4-19 [facility] Comment on above: Performed By: #### L 500.2500, L100.0100 ####[facility] [address] [place], [address] Bedside Glucoseon 08-16-2024 FINGERSTICK GLU 172 mg/dL High 74-106 [facility] Comment on above: Result Comment: ANABELLE GEMENT OF PATIENT CARE PER NURSING PROTOCOL Performed By: #### L 501.080 ####[facility] [address] [place], [address] FINGERSTICK GLU 155 mg/dL High 74-106 [facility] Comment on above: Result Comment: ANABELLE GEMENT OF PATIENT CARE PER NURSING PROTOCOL Performed By: #### L 501.080 ####[facility] [address] [place], [address] FINGERSTICK GLU 216 mg/dL High 74-106 [facility] Comment on above: Result Comment: ANABELLE GEMENT OF PATIENT CARE PER NURSING PROTOCOL Performed By: #### L 501.080 ####[facility] [address] [place], [address] FINGERSTICK GLU 178 mg/dL High 74-106 [facility] Comment on above: Result Comment: ANABELLE GEMENT OF PATIENT CARE PER NURSING PROTOCOL Performed By: #### L 501.080 ####[facility] [address] [place], [address] CBC W/Diff, Automatedon 04-2 0-2024 Absolute Lymph 0.86 X10 3/uL Normal 0.83-4.51 [facility] Comment on above: Performed By: #### L 500.2500, L100.0100 ####[facility] [address] [place], [address] Absolute Neut 10.3 X10 3/uL High 2.0-7.7 [facility] Comment on above: Performed By: #### L 500.2500, L100.0100 ####[facility] [address] [place], [address] Basophils/100 WBC (Bld) 0.2 % Normal 0-1 [facility] Comment on above: Performed By: #### L 500.2500, L100.0100 ####[facility] [address] [place], [address] Eosinophils/100 WBC (Bld) 2.1 % Normal 0-5 [facility] Comment on above: Performed By: #### L 500.2500, L100.0100 ####[facility] [address] [place], [address] Erythrocyte distribution width (RBC) [Ratio] 14.6 % Normal 11.6-14.6 [facility] Comment on above: Performed By: #### L 500.2500, L100.0100 ####[facility] [address] [place], [address] Hematocrit (Bld) [Volume fraction] 24.6 % Low 40-54 [facility] Comment on above: Performed By: #### L 500.2500, L100.0100 ####[facility] [address] [place], [address] Hemoglobin (Bld) [Mass/Vol] 8.3 g/dL Low 13.0-16.5 [facility] Comment on above: Performed By: #### L 500.2500, L100.0100 ####[facility] [address] [place], [address] IG% 1.900 High 0.0-0.9 [facility] Comment on above: Result Comment: IG% - Immature Granulocytes (promyelocytes, myelocytes andmetamyelocytes) > 1% indicates that a LEFT SHIFT is Present. Performed By: #### L 500.2500, L100.0100 ####[facility] [address] [place], [address] Lymphocytes/100 WBC (Bld) 6.6 % Low 19-41 [facility] Comment on above: Performed By: #### L 500.2500, L100.0100 ####[facility] [address] [place], [address] MCH (RBC) [Entitic mass] 30.5 pg Normal 27.0-32.0 [facility] Comment on above: Performed By: #### L 500.2500, L100.0100 ####[facility] [address] [place], [address] MCHC (RBC) [Mass/Vol] 33.7 g/dL Normal 32-36 [facility] Comment on above: Performed By: #### L 500.2500, L100.0100 ####[facility] [address] [place], [address] MCV (RBC) [Entitic vol] 90.4 fL Normal 80-94 [facility] Comment on above: Performed By: #### L 500.2500, L100.0100 ####[facility] [address] [place], [address] Monocytes/100 WBC (Bld) 10.3 % High 0-10 [facility] Comment on above: Performed By: #### L 500.2500, L100.0100 ####[facility] [address] [place], [address] Neutrophils/100 WBC (Bld) 78.9 % High 47-70 [facility] Comment on above: Performed By: #### L 500.2500, L100.0100 ####[facility] [address] [place], [address] Nucleated RBC (Bld) [#/Vol] 0 10*3/uL Normal 0-5 [facility] Comment on above: Performed By: #### L 500.2500, L100.0100 ####[facility] [address] [place], [address] Platelet mean volume (Bld) [Entitic vol] 12.3 fL High 6.2-12.0 [facility] Comment on above: Performed By: #### L 500.2500, L100.0100 ####[facility] [address] [place], [address] Platelets (Bld) [#/Vol] 109 10*3/uL Low 150-450 [facility] Comment on above: Performed By: #### L 500.2500, L100.0100 ####[facility] [address] [place], [address] RBC (Bld) [#/Vol] 2.72 10*6/uL Low 4.6-6.2 [facility] Comment on above: Performed By: #### L 500.2500, L100.0100 ####[facility] [address] [place], [address] RDW SD 48.6 fl High 35.1-43.9 [facility] Comment on above: Performed By: #### L 500.2500, L100.0100 ####[facility] [address] [place], [address] WBC (Bld) [#/Vol] 13.1 10*3/uL High 4.4-11.0 [facility] Comment on above: Performed By: #### L 500.2500, L100.0100 ####[facility] [address] [place], [address] Bedside Glucoseon 08-15-2024 FINGERSTICK GLU 156 mg/dL High 74-106 [facility] Comment on above: Result Comment: ANABELLE GEMENT OF PATIENT CARE PER NURSING PROTOCOL Performed By: #### L 501.080 ####[facility] [address] [place], [address] FINGERSTICK GLU 109 mg/dL High 74-106 [facility] Comment on above: Result Comment: ANABELLE GEMENT OF PATIENT CARE PER NURSING PROTOCOL Performed By: #### L 501.080 ####[facility] [address] [place], [address] FINGERSTICK GLU 101 mg/dL Normal 74-106 [facility] Comment on above: Result Comment: ANABELLE GEMENT OF PATIENT CARE PER NURSING PROTOCOL Performed By: #### L 501.080 ####[facility] [address] [place], [address] FINGERSTICK GLU 109 mg/dL High 74-106 [facility] Comment on above: Result Comment: ANABELLE GEMENT OF PATIENT CARE PER NURSING PROTOCOL Performed By: #### L 501.080 ####[facility] [address] [place], [address] FINGERSTICK GLU 221 mg/dL High 74-106 [facility] Comment on above: Result Comment: ANABELLE GEMENT OF PATIENT CARE PER NURSING PROTOCOL Performed By: #### L 501.080 ####[facility] [address] [place], [address] FINGERSTICK GLU 83 mg/dL Normal 74-106 [facility] Comment on above: Result Comment: ANABELLE GEMENT OF PATIENT CARE PER NURSING PROTOCOL Performed By: #### L 501.080 ####[facility] [address] [place], [address] Blood Gases by [facility] 025 ANTONIO TEST N/A Normal [facility] Comment on above: Performed By: #### L 9000.0800 ####[facility] [address] [place], [address] Base excess Calc (Bld) [Moles/Vol] -4 mmol/L Low -2 to +2 [facility] Comment on above: Performed By: #### L 9000.0800 ####[facility] [address] [place], [address] Blood Gas Type ART Normal [facility] Comment on above: Performed By: #### L 9000.0800 ####[facility] [address] [place], [address] CO2 [Moles/Vol] 21 mmol/L Normal [facility] Comment on above: Performed By: #### L 9000.0800 ####[facility] [address] [place], [address] FI02 35.0 Normal [facility] Comment on above: Performed By: #### L 9000.0800 ####[facility] [address] [place], [address] HCO3 (Bld) [Moles/Vol] 19.8 mmol/L Low 22-26 [facility] Comment on above: Performed By: #### L 9000.0800 ####[facility] [address] [place], [address] Mode AC Normal [facility] Comment on above: Performed By: #### L 9000.0800 ####[facility] [address] [place], [address] O2 Delivery Dev Adult Vent Normal [facility] Comment on above: Performed By: #### L 9000.0800 ####[facility] [address] [place], [address] pCO2 28.3 mmHg Low 35-45 [facility] Comment on above: Performed By: #### L 9000.0800 ####[facility] [address] [place], [address] PEEP 5 Normal [facility] Comment on above: Performed By: #### L 9000.0800 ####[facility] [address] [place], [address] pH (Bld) 7.45 [pH] Normal 7.35-7.45 [facility] Comment on above: Performed By: #### L 9000.0800 ####[facility] [address] [place], [address] PO2 60 mmHG Low 75-100 [facility] Comment on above: Performed By: #### L 9000.0800 ####[facility] [address] [place], [address] RR 18 Normal [facility] Comment on above: Performed By: #### L 9000.0800 ####[facility] [address] [place], [address] SITE R Radial Normal [facility] Comment on above: Performed By: #### L 9000.0800 ####[facility] [address] [place], [address] SO2 92 Low 95-99 [facility] Comment on above: Performed By: #### L 9000.0800 ####[facility] [address] [place], [address] Vt 500.0 mL Normal [facility] Comment on above: Performed By: #### L 9000.0800 ####[facility] [address] [place], [address] CBC W/Diff, Automatedon 07-28 Absolute Lymph 1.17 X10 3/uL Normal 0.83-4.51 [facility] Comment on above: Performed By: #### L 500.4050, L100.0100 ####[facility] [address] [place], [address] Absolute Neut 17.4 X10 3/uL High 2.0-7.7 [facility] Comment on above: Performed By: #### L 500.4050, L100.0100 ####[facility] [address] [place], [address] Basophils/100 WBC (Bld) 0.3 % Normal 0-1 [facility] Comment on above: Performed By: #### L 500.4050, L100.0100 ####[facility] [address] [place], [address] Eosinophils/100 WBC (Bld) 1.1 % Normal 0-5 [facility] Comment on above: Performed By: #### L 500.4050, L100.0100 ####[facility] [address] [place], [address] Erythrocyte distribution width (RBC) [Ratio] 14.6 % Normal 11.6-14.6 [facility] Comment on above: Performed By: #### L 500.4050, L100.0100 ####[facility] [address] [place], [address] Hematocrit (Bld) [Volume fraction] 27.2 % Low 40-54 [facility] Comment on above: Performed By: #### L 500.4050, L100.0100 ####[facility] [address] [place], [address] Hemoglobin (Bld) [Mass/Vol] 9.3 g/dL Low 13.0-16.5 [facility] Comment on above: Performed By: #### L 500.4050, L100.0100 ####[facility] [address] [place], [address] IG% 0.700 Normal 0.0-0.9 [facility] Comment on above: Result Comment: IG% - Immature Granulocytes (promyelocytes, myelocytes andmetamyelocytes) > 1% indicates that a LEFT SHIFT is Present. Performed By: #### L 500.4050, L100.0100 ####[facility] [address] [place], [address] Lymphocytes/100 WBC (Bld) 5.9 % Low 19-41 [facility] Comment on above: Performed By: #### L 500.4050, L100.0100 ####[facility] [address] [place], [address] MCH (RBC) [Entitic mass] 30.8 pg Normal 27.0-32.0 [facility] Comment on above: Performed By: #### L 500.4050, L100.0100 ####[facility] [address] [place], [address] MCHC (RBC) [Mass/Vol] 34.2 g/dL Normal 32-36 [facility] Comment on above: Performed By: #### L 500.4050, L100.0100 ####[facility] [address] [place], [address] MCV (RBC) [Entitic vol] 90.1 fL Normal 80-94 [facility] Comment on above: Performed By: #### L 500.4050, L100.0100 ####[facility] [address] [place], [address] Monocytes/100 WBC (Bld) 4.7 % Normal 0-10 [facility] Comment on above: Performed By: #### L 500.4050, L100.0100 ####[facility] [address] [place], [address] Neutrophils/100 WBC (Bld) 87.3 % High 47-70 [facility] Comment on above: Performed By: #### L 500.4050, L100.0100 ####[facility] [address] [place], [address] Nucleated RBC (Bld) [#/Vol] 0 10*3/uL Normal 0-5 [facility] Comment on above: Performed By: #### L 500.4050, L100.0100 ####[facility] [address] [place], [address] Platelet mean volume (Bld) [Entitic vol] 12.4 fL High 6.2-12.0 [facility] Comment on above: Performed By: #### L 500.4050, L100.0100 ####[facility] [address] [place], [address] Platelets (Bld) [#/Vol] 120 10*3/uL Low 150-450 [facility] Comment on above: Performed By: #### L 500.4050, L100.0100 ####[facility] [address] [place], [address] RBC (Bld) [#/Vol] 3.02 10*6/uL Low 4.6-6.2 [facility] Comment on above: Performed By: #### L 500.4050, L100.0100 ####[facility] [address] [place], [address] RDW SD 48.3 fl High 35.1-43.9 [facility] Comment on above: Performed By: #### L 500.4050, L100.0100 ####[facility] [address] [place], [address] WBC (Bld) [#/Vol] 19.9 10*3/uL High 4.4-11.0 [facility] Comment on above: Performed By: #### L 500.4050, L100.0100 ####[facility] [address] [place], [address] Chest 1 View (Portable)on Chest 1 View (Portable) Normal [facility] Comprehensive Metabolic Prof ilon 08-15-2024 Albumin [Mass/Vol] 2.4 g/dL Low 3.4-4.8 [facility] Comment on above: Performed By: #### L 500.4050, L100.0100 ####[facility] [address] [place], [address] Albumin/Globulin [Mass ratio] 0.8 {ratio} Low 0.9-2.4 [facility] Comment on above: Performed By: #### L 500.4050, L100.0100 ####[facility] [address] [place], [address] ALK PHOS 128 U/L Normal 40-129 [facility] Comment on above: Performed By: #### L 500.4050, L100.0100 ####[facility] [address] [place], [address] ALT [Catalytic activity/Vol] 76 U/L High <=46 [facility] Comment on above: Performed By: #### L 500.4050, L100.0100 ####[facility] [address] [place], [address] AST [Catalytic activity/Vol] 236 U/L High <=37 [facility] Comment on above: Performed By: #### L 500.4050, L100.0100 ####[facility] [address] [place], [address] Bilirubin [Mass/Vol] 0.17 mg/dL Normal 0.00-1.30 [facility] Comment on above: Performed By: #### L 500.4050, L100.0100 ####[facility] [address] [place], [address] BUN/CRE 9.6 RATIO Low 10-20 [facility] Comment on above: Performed By: #### L 500.4050, L100.0100 ####[facility] [address] [place], [address] Calcium [Mass/Vol] 6.9 mg/dL Low 7.6-11.0 [facility] Comment on above: Performed By: #### L 500.4050, L100.0100 ####[facility] [address] [place], [address] Chloride [Moles/Vol] 110 mmol/L High 98-108 [facility] Comment on above: Performed By: #### L 500.4050, L100.0100 ####[facility] [address] [place], [address] CO2 [Moles/Vol] 18.7 mmol/L Low 21.0-32.0 [facility] Comment on above: Performed By: #### L 500.4050, L100.0100 ####[facility] [address] [place], [address] Creatinine [Mass/Vol] 6.56 mg/dL High 0.70-1.20 [facility] Comment on above: Performed By: #### L 500.4050, L100.0100 ####[facility] [address] [place], [address] ECRCL 13.03 ml/min Low 50-250 [facility] Comment on above: Performed By: #### L 500.4050, L100.0100 ####[facility] [address] [place], [address] GAP 14 Normal 5-15 [facility] Comment on above: Performed By: #### L 500.4050, L100.0100 ####[facility] [address] [place], [address] GFR/1.73 sq M.predicted among non-blacks MDRD (S/P/Bld) [Vol rate/Area] 9 mL/min/{1.73_m2} Low >60 [facility] Comment on above: Result Comment: mL/m in/1.73m2 CKD-EPI Creatinine Equation (2020) Performed By: #### L 500.4050, L100.0100 ####[facility] [address] [place], [address] Globulin (S) [Mass/Vol] 3.0 g/dL Normal 2.2-4.2 [facility] Comment on above: Performed By: #### L 500.4050, L100.0100 ####[facility] [address] [place], [address] Glucose [Mass/Vol] 118 mg/dL High 70-99 [facility] Comment on above: Performed By: #### L 500.4050, L100.0100 ####[facility] [address] [place], [address] Potassium [Moles/Vol] 3.4 mmol/L Normal 3.3-5.1 [facility] Comment on above: Performed By: #### L 500.4050, L100.0100 ####[facility] [address] [place], [address] Sodium [Moles/Vol] 142 mmol/L Normal 133-145 [facility] Comment on above: Performed By: #### L 500.4050, L100.0100 ####[facility] [address] [place], [address] T PROT 5.4 g/dL Low 5.9-8.4 [facility] Comment on above: Performed By: #### L 500.4050, L100.0100 ####[facility] [address] [place], [address] Urea nitrogen [Mass/Vol] 63 mg/dL High - [facility] Comment on above: Performed By: #### L 500.4050, L100.0100 ####[facility] [address] [place], [address] Echo Completeon 08-15-2024 Echo Complete Normal [facility] Basic Metabolic Profile (BMP )on 08-14-2024 BUN Normal - [facility] Comment on above: Result Comment: Canc elled via OM: MD Ordered Performed By: #### L 500.2500, L100.0100 ####[facility] [address] [place], [address] BUN/CRE Normal -20 [facility] Comment on above: Result Comment: Canc elled via OM: MD Ordered Performed By: #### L 500.2500, L100.0100 ####[facility] [address] [place], [address] Calcium Normal 7.6-11.0 [facility] Comment on above: Result Comment: Canc elled via OM: MD Ordered Performed By: #### L 500.2500, L100.0100 ####[facility] [address] [place], [address] CL Normal 98-108 [facility] Comment on above: Result Comment: Canc elled via OM: MD Ordered Performed By: #### L 500.2500, L100.0100 ####[facility] [address] [place], [address] CO2 Normal 21.0-32.0 [facility] Comment on above: Result Comment: Canc elled via OM: MD Ordered Performed By: #### L 500.2500, L100.0100 ####[facility] [address] [place], [address] CREAT,SERUM Normal 0.70-1.20 [facility] Comment on above: Result Comment: Canc elled via OM: MD Ordered Performed By: #### L 500.2500, L100.0100 ####[facility] [address] [place], [address] eGFR Normal >60 [facility] Comment on above: Result Comment: Canc elled via OM: MD Ordered Performed By: #### L 500.2500, L100.0100 ####[facility] [address] [place], [address] GAP Normal 5-15 [facility] Comment on above: Result Comment: Canc elled via OM: MD Ordered Performed By: #### L 500.2500, L100.0100 ####[facility] [address] [place], [address] GLU Normal 70-99 [facility] Comment on above: Result Comment: Canc elled via OM: MD Ordered Performed By: #### L 500.2500, L100.0100 ####[facility] [address] [place], [address] Potassium Normal 3.3-5.1 [facility] Comment on above: Result Comment: Canc elled via OM: MD Ordered Performed By: #### L 500.2500, L100.0100 ####[facility] [address] [place], [address] Basic Metabolic Profile (BMP) Normal 133-145 [facility] Comment on above: Result Comment: Canc elled via OM: MD Ordered Performed By: #### L 500.2500, L100.0100 ####[facility] [address] [place], [address] Bedside Glucoseon 08-14-2024 FINGERSTICK GLU 70 mg/dL Low 74-106 [facility] Comment on above: Result Comment: ANABELLE GEMENT OF PATIENT CARE PER NURSING PROTOCOL Performed By: #### L 501.080 ####[facility] [address] [place], [address] FINGERSTICK GLU 80 mg/dL Normal 74-106 [facility] Comment on above: Result Comment: ANABELLE GEMENT OF PATIENT CARE PER NURSING PROTOCOL Performed By: #### L 501.080 ####[facility] [address] [place], [address] CBC W/Diff, Automatedon - Absolute Lymph 1.37 X10 3/uL Normal 0.83-4.51 [facility] Comment on above: Performed By: #### L 500.2500, L100.0100 ####[facility] [address] [place], [address] Absolute Neut 18.3 X10 3/uL High 2.0-7.7 [facility] Comment on above: Performed By: #### L 500.2500, L100.0100 ####[facility] [address] [place], [address] Basophils/100 WBC (Bld) 0.2 % Normal 0-1 [facility] Comment on above: Performed By: #### L 500.2500, L100.0100 ####[facility] [address] [place], [address] Eosinophils/100 WBC (Bld) 0.3 % Normal 0-5 [facility] Comment on above: Performed By: #### L 500.2500, L100.0100 ####[facility] [address] [place], [address] Erythrocyte distribution width (RBC) [Ratio] 14.6 % Normal 11.6-14.6 [facility] Comment on above: Performed By: #### L 500.2500, L100.0100 ####[facility] [address] [place], [address] Hematocrit (Bld) [Volume fraction] 28.6 % Low 40-54 [facility] Comment on above: Performed By: #### L 500.2500, L100.0100 ####[facility] [address] [place], [address] Hemoglobin (Bld) [Mass/Vol] 9.8 g/dL Low 13.0-16.5 [facility] Comment on above: Performed By: #### L 500.2500, L100.0100 ####[facility] [address] [place], [address] IG% 0.500 Normal 0.0-0.9 [facility] Comment on above: Result Comment: IG% - Immature Granulocytes (promyelocytes, myelocytes andmetamyelocytes) > 1% indicates that a LEFT SHIFT is Present. Performed By: #### L 500.2500, L100.0100 ####[facility] [address] [place], [address] Lymphocytes/100 WBC (Bld) 6.7 % Low 19-41 [facility] Comment on above: Performed By: #### L 500.2500, L100.0100 ####[facility] [address] [place], [address] MCH (RBC) [Entitic mass] 31.0 pg Normal 27.0-32.0 [facility] Comment on above: Performed By: #### L 500.2500, L100.0100 ####[facility] [address] [place], [address] MCHC (RBC) [Mass/Vol] 34.3 g/dL Normal 32-36 [facility] Comment on above: Performed By: #### L 500.2500, L100.0100 ####[facility] [address] [place], [address] MCV (RBC) [Entitic vol] 90.5 fL Normal 80-94 [facility] Comment on above: Performed By: #### L 500.2500, L100.0100 ####[facility] [address] [place], [address] Monocytes/100 WBC (Bld) 2.6 % Normal 0-10 [facility] Comment on above: Performed By: #### L 500.2500, L100.0100 ####[facility] [address] [place], [address] Neutrophils/100 WBC (Bld) 89.7 % High 47-70 [facility] Comment on above: Performed By: #### L 500.2500, L100.0100 ####[facility] [address] [place], [address] Nucleated RBC (Bld) [#/Vol] 0 10*3/uL Normal 0-5 [facility] Comment on above: Performed By: #### L 500.2500, L100.0100 ####[facility] [address] [place], [address] Platelet mean volume (Bld) [Entitic vol] 12.0 fL Normal 6.2-12.0 [facility] Comment on above: Performed By: #### L 500.2500, L100.0100 ####[facility] [address] [place], [address] Platelets (Bld) [#/Vol] 127 10*3/uL Low 150-450 [facility] Comment on above: Performed By: #### L 500.2500, L100.0100 ####[facility] [address] [place], [address] RBC (Bld) [#/Vol] 3.16 10*6/uL Low 4.6-6.2 [facility] Comment on above: Performed By: #### L 500.2500, L100.0100 ####[facility] [address] [place], [address] RDW SD 49.1 fl High 35.1-43.9 [facility] Comment on above: Performed By: #### L 500.2500, L100.0100 ####[facility] [address] [place], [address] WBC (Bld) [#/Vol] 20.4 10*3/uL High 4.4-11.0 [facility] Comment on above: Performed By: #### L 500.2500, L100.0100 ####[facility] [address] [place], [address] Comprehensive Metabolic Prof [facility] 08-14-2024 Albumin [Mass/Vol] 2.5 g/dL Low 3.4-4.8 [facility] Comment on above: Performed By: #### L 500.4050 ####[facility] [address] [place], [address] Albumin/Globulin [Mass ratio] 0.9 {ratio} Normal 0.9-2.4 [facility] Comment on above: Performed By: #### L 500.4050 ####[facility] [address] [place], [address] ALK PHOS 112 U/L Normal 40-129 [facility] Comment on above: Performed By: #### L 500.4050 ####[facility] [address] [place], [address] ALT [Catalytic activity/Vol] 80 U/L High <=46 [facility] Comment on above: Performed By: #### L 500.4050 ####[facility] [address] [place], [address] AST [Catalytic activity/Vol] 230 U/L High <=37 [facility] Comment on above: Performed By: #### L 500.4050 ####[facility] [address] [place], [address] Bilirubin [Mass/Vol] 0.17 mg/dL Normal 0.00-1.30 [facility] Comment on above: Performed By: #### L 500.4050 ####[facility] [address] [place], [address] BUN/CRE 10.7 RATIO Normal 10-20 [facility] Comment on above: Performed By: #### L 500.4050 ####[facility] [address] [place], [address] Calcium [Mass/Vol] 7.2 mg/dL Low 7.6-11.0 [facility] Comment on above: Performed By: #### L 500.4050 ####[facility] [address] [place], [address] Chloride [Moles/Vol] 111 mmol/L High 98-108 [facility] Comment on above: Performed By: #### L 500.4050 ####[facility] [address] [place], [address] CO2 [Moles/Vol] 18.6 mmol/L Low 21.0-32.0 [facility] Comment on above: Performed By: #### L 500.4050 ####[facility] [address] [place], [address] Creatinine [Mass/Vol] 7.25 mg/dL High 0.70-1.20 [facility] Comment on above: Performed By: #### L 500.4050 ####[facility] [address] [place], [address] ECRCL 10.85 ml/min Low 50-250 [facility] Comment on above: Performed By: #### L 500.4050 ####[facility] [address] [place], [address] GAP 15 Normal 5-15 [facility] Comment on above: Performed By: #### L 500.4050 ####[facility] [address] [place], [address] GFR/1.73 sq M.predicted among non-blacks MDRD (S/P/Bld) [Vol rate/Area] 8 mL/min/{1.73_m2} Low >60 [facility] Comment on above: Result Comment: mL/m in/1.73m2 CKD-EPI Creatinine Equation (2020) Performed By: #### L 500.4050 ####[facility] [address] [place], [address] Globulin (S) [Mass/Vol] 2.7 g/dL Normal 2.2-4.2 [facility] Comment on above: Performed By: #### L 500.4050 ####[facility] [address] [place], [address] Glucose [Mass/Vol] 233 mg/dL High 70-99 [facility] Comment on above: Performed By: #### L 500.4050 ####[facility] [address] [place], [address] Potassium [Moles/Vol] 4.1 mmol/L Normal 3.3-5.1 [facility] Comment on above: Performed By: #### L 500.4050 ####[facility] [address] [place], [address] Sodium [Moles/Vol] 144 mmol/L Normal 133-145 [facility] Comment on above: Performed By: #### L 500.4050 ####[facility] [address] [place], [address] T PROT 5.1 g/dL Low 5.9-8.4 [facility] Comment on above: Performed By: #### L 500.4050 ####[facility] [address] [place], [address] Urea nitrogen [Mass/Vol] 77 mg/dL High -19 [facility] Comment on above: Performed By: #### L 500.4050 ####[facility] [address] [place], [address] ERCP Biliary/Pancreason 07-28 ERCP Biliary/Pancreas Normal [facility] ERCP Reporton 08-14-2024 ERCP Report Normal [facility] MR/POSTOP.ANEon 08-14-2024 MR/POSTOP.ANE Normal [facility] Procedure Reporton Procedure Report Normal [facility] Basic Metabolic Profile (BMP )on 08-13-2024 BUN/CRE 11.4 RATIO Normal 10-20 [facility] Comment on above: Performed By: #### L 501.5200, L500.2500, L100.0100 ####[facility] [address] [place], [address] Calcium [Mass/Vol] 7.0 mg/dL Low 7.6-11.0 [facility] Comment on above: Performed By: #### L 501.5200, L500.2500, L100.0100 ####[facility] [address] [place], [address] Chloride [Moles/Vol] 109 mmol/L High 98-108 [facility] Comment on above: Performed By: #### L 501.5200, L500.2500, L100.0100 ####[facility] [address] [place], [address] CO2 [Moles/Vol] 18.3 mmol/L Low 21.0-32.0 [facility] Comment on above: Performed By: #### L 501.5200, L500.2500, L100.0100 ####[facility] [address] [place], [address] Creatinine [Mass/Vol] 6.21 mg/dL High 0.70-1.20 [facility] Comment on above: Performed By: #### L 501.5200, L500.2500, L100.0100 ####[facility] [address] [place], [address] ECRCL 12.67 ml/min Low 50-250 [facility] Comment on above: Performed By: #### L 501.5200, L500.2500, L100.0100 ####[facility] [address] [place], [address] GAP 15 Normal 5-15 [facility] Comment on above: Performed By: #### L 501.5200, L500.2500, L100.0100 ####[facility] [address] [place], [address] GFR/1.73 sq M.predicted among non-blacks MDRD (S/P/Bld) [Vol rate/Area] 9 mL/min/{1.73_m2} Low >60 [facility] Comment on above: Result Comment: mL/m in/1.73m2 CKD-EPI Creatinine Equation (2020) Performed By: #### L 501.5200, L500.2500, L100.0100 ####[facility] [address] [place], [address] Glucose [Mass/Vol] 333 mg/dL High 70-99 [facility] Comment on above: Performed By: #### L 501.5200, L500.2500, L100.0100 ####[facility] [address] [place], [address] Potassium [Moles/Vol] 4.7 mmol/L Normal 3.3-5.1 [facility] Comment on above: Performed By: #### L 501.5200, L500.2500, L100.0100 ####[facility] [address] [place], [address] Sodium [Moles/Vol] 142 mmol/L Normal 133-145 [facility] Comment on above: Performed By: #### L 501.5200, L500.2500, L100.0100 ####[facility] [address] [place], [address] Urea nitrogen [Mass/Vol] 71 mg/dL High 4-19 [facility] Comment on above: Performed By: #### L 501.5200, L500.2500, L100.0100 ####[facility] [address] [place], [address] Bedside Glucoseon 08-13-2024 FINGERSTICK GLU 279 mg/dL High 74-106 [facility] Comment on above: Result Comment: ANABELLE GEMENT OF PATIENT CARE PER NURSING PROTOCOL Performed By: #### L 501.080 ####[facility] [address] [place], [address] FINGERSTICK GLU 277 mg/dL High 74-106 [facility] Comment on above: Result Comment: Dr Olu de jesus FollowedInsulin GivenMANAGEMENT OF PATIENT CARE PER NURSING PROTOCOL Performed By: #### L 501.080 ####[facility] [address] [place], [address] FINGERSTICK GLU 293 mg/dL High 74-106 [facility] Comment on above: Result Comment: ANABELLE GEMENT OF PATIENT CARE PER NURSING PROTOCOL Performed By: #### L 501.080 ####[facility] [address] [place], [address] FINGERSTICK GLU 343 mg/dL High 74-106 [facility] Comment on above: Result Comment: ANABELLE GEMENT OF PATIENT CARE PER NURSING PROTOCOL Performed By: #### L 501.080 ####[facility] [address] [place], [address] Blood Gases by [facility] 025 ANTONIO TEST Positive Normal [facility] Comment on above: Performed By: #### L 9000.0800 ####[facility] [address] [place], [address] Base excess Calc (Bld) [Moles/Vol] -7 mmol/L Low -2 to +2 [facility] Comment on above: Performed By: #### L 9000.0800 ####[facility] [address] [place], [address] Blood Gas Type ART Normal [facility] Comment on above: Performed By: #### L 9000.0800 ####[facility] [address] [place], [address] CO2 [Moles/Vol] 18 mmol/L Normal [facility] Comment on above: Performed By: #### L 9000.0800 ####[facility] [address] [place], [address] FI02 25.0 Normal [facility] Comment on above: Performed By: #### L 9000.0800 ####[facility] [address] [place], [address] HCO3 (Bld) [Moles/Vol] 17.2 mmol/L Low 22-26 [facility] Comment on above: Performed By: #### L 9000.0800 ####[facility] [address] [place], [address] Mode AC Normal [facility] Comment on above: Performed By: #### L 9000.0800 ####[facility] [address] [place], [address] O2 Delivery Dev Adult Vent Normal [facility] Comment on above: Performed By: #### L 9000.0800 ####[facility] [address] [place], [address] pCO2 26.3 mmHg Low 35-45 [facility] Comment on above: Performed By: #### L 9000.0800 ####[facility] [address] [place], [address] PEEP 5 Normal [facility] Comment on above: Performed By: #### L 9000.0800 ####[facility] [address] [place], [address] pH (Bld) 7.42 [pH] Normal 7.35-7.45 [facility] Comment on above: Performed By: #### L 9000.0800 ####[facility] [address] [place], [address] PO2 69 mmHG Low 75-100 [facility] Comment on above: Performed By: #### L 9000.0800 ####[facility] [address] [place], [address] RR 18 Normal [facility] Comment on above: Performed By: #### L 9000.0800 ####[facility] [address] [place], [address] SITE R Radial Normal [facility] Comment on above: Performed By: #### L 9000.0800 ####[facility] [address] [place], [address] SO2 94 Low 95-99 [facility] Comment on above: Performed By: #### L 9000.0800 ####[facility] [address] [place], [address] Vt 500.0 mL Normal [facility] Comment on above: Performed By: #### L 9000.0800 ####[facility] [address] [place], [address] CBC W/Diff, Automatedon 07-28 SMEAR COMMENT Normal [facility] Comment on above: Result Comment: BAND S NOTED Performed By: #### L 501.5200, L500.2500, L100.0100 ####[facility] [address] [place], [address] Culture, Blood (WB)on 2024 CUB Call with results STAT No growth in 5 days. Normal [facility] Comment on above: Performed By: #### L 506.0200, L503.0106, L501.3620, L500.4050, L503.6005, L501.9520, L501.5200, M200.1000 ####[facility] [address] [place], [address] Magnesiumon 08-13-2024 Magnesium [Mass/Vol] 1.8 mg/dL Normal 1.5-2.2 [facility] Comment on above: Performed By: #### L 501.5200, L500.2500, L100.0100 ####[facility] [address] [place], [address] Partial Thromboplast Timeon 08-13-2024 aPTT Coag (Bld) [Time] 31.1 s Normal 24.1-36.2 [facility] Comment on above: Performed By: #### L 300.4310, L300.3900 ####[facility] [address] [place], [address] Phosphoruson 08-13-2024 Phosphate [Mass/Vol] 3.8 mg/dL Normal 2.7-4.5 [facility] Comment on above: Performed By: #### L 501.2300 ####[facility] [address] [place], [address] Prothrombin Time w/INRon INR Coag (PPP) [Relative time] 1.3 {INR} Normal [facility] Comment on above: Performed By: #### L 300.4310, L300.3900 ####[facility] [address] [place], [address] PT Coag (PPP) [Time] 16.3 s High 11.7-14.9 [facility] Comment on above: Performed By: #### L 300.4310, L300.3900 ####[facility] [address] [place], [address] Respiratory Cultureon 2024 RESPC Normal [facility] Comment on above: Performed By: #### M 100.2000, M100.2400 ####[facility] [address] [place], [address] Basic Metabolic Profile (BMP )on 08-12-2024 BUN/CRE 10.7 RATIO Normal 10-20 [facility] Comment on above: Performed By: #### L 500.2500 ####[facility] [address] [place], [address] Calcium [Mass/Vol] 6.8 mg/dL Low 7.6-11.0 [facility] Comment on above: Performed By: #### L 500.2500 ####[facility] [address] [place], [address] Chloride [Moles/Vol] 107 mmol/L Normal 98-108 [facility] Comment on above: Performed By: #### L 500.2500 ####[facility] [address] [place], [address] CO2 [Moles/Vol] 17.3 mmol/L Low 21.0-32.0 [facility] Comment on above: Performed By: #### L 500.2500 ####[facility] [address] [place], [address] Creatinine [Mass/Vol] 5.55 mg/dL High 0.70-1.20 [facility] Comment on above: Performed By: #### L 500.2500 ####[facility] [address] [place], [address] ECRCL 14.18 ml/min Low 50-250 [facility] Comment on above: Performed By: #### L 500.2500 ####[facility] [address] [place], [address] GAP 17 High 5-15 [facility] Comment on above: Performed By: #### L 500.2500 ####[facility] [address] [place], [address] GFR/1.73 sq M.predicted among non-blacks MDRD (S/P/Bld) [Vol rate/Area] 11 mL/min/{1.73_m2} Low >60 [facility] Comment on above: Result Comment: mL/m in/1.73m2 CKD-EPI Creatinine Equation (2020) Performed By: #### L 500.2500 ####[facility] [address] [place], [address] Glucose [Mass/Vol] 270 mg/dL High 70-99 [facility] Comment on above: Performed By: #### L 500.2500 ####[facility] [address] [place], [address] Potassium [Moles/Vol] 4.6 mmol/L Normal 3.3-5.1 [facility] Comment on above: Performed By: #### L 500.2500 ####[facility] [address] [place], [address] Sodium [Moles/Vol] 142 mmol/L Normal 133-145 [facility] Comment on above: Performed By: #### L 500.2500 ####[facility] [address] [place], [address] Urea nitrogen [Mass/Vol] 59 mg/dL High 4-19 [facility] Comment on above: Performed By: #### L 500.2500 ####[facility] [address] [place], [address] BUN/CRE 10.9 RATIO Normal 10-20 [facility] Comment on above: Performed By: #### L 500.2500 ####[facility] [address] [place], [address] Calcium [Mass/Vol] 6.7 mg/dL Low 7.6-11.0 [facility] Comment on above: Performed By: #### L 500.2500 ####[facility] [address] [place], [address] Chloride [Moles/Vol] 107 mmol/L Normal 98-108 [facility] Comment on above: Performed By: #### L 500.2500 ####[facility] [address] [place], [address] CO2 [Moles/Vol] 21.9 mmol/L Normal 21.0-32.0 [facility] Comment on above: Performed By: #### L 500.2500 ####[facility] [address] [place], [address] Creatinine [Mass/Vol] 5.28 mg/dL High 0.70-1.20 [facility] Comment on above: Performed By: #### L 500.2500 ####[facility] [address] [place], [address] ECRCL 14.90 ml/min Low 50-250 [facility] Comment on above: Performed By: #### L 500.2500 ####[facility] [address] [place], [address] GAP 15 Normal 5-15 [facility] Comment on above: Performed By: #### L 500.2500 ####[facility] [address] [place], [address] GFR/1.73 sq M.predicted among non-blacks MDRD (S/P/Bld) [Vol rate/Area] 11 mL/min/{1.73_m2} Low >60 [facility] Comment on above: Result Comment: mL/m in/1.73m2 CKD-EPI Creatinine Equation (2020) Performed By: #### L 500.2500 ####[facility] [address] [place], [address] Glucose [Mass/Vol] 155 mg/dL High 70-99 [facility] Comment on above: Performed By: #### L 500.2500 ####[facility] [address] [place], [address] Potassium [Moles/Vol] 3.2 mmol/L Low 3.3-5.1 [facility] Comment on above: Performed By: #### L 500.2500 ####[facility] [address] [place], [address] Sodium [Moles/Vol] 144 mmol/L Normal 133-145 [facility] Comment on above: Performed By: #### L 500.2500 ####[facility] [address] [place], [address] Urea nitrogen [Mass/Vol] 58 mg/dL High 4-19 [facility] Comment on above: Performed By: #### L 500.2500 ####[facility] [address] [place], [address] BUN/CRE 10.9 RATIO Normal 10-20 [facility] Comment on above: Performed By: #### L 500.2500, L100.0100 ####[facility] [address] [place], [address] Calcium [Mass/Vol] 6.8 mg/dL Low 7.6-11.0 [facility] Comment on above: Performed By: #### L 500.2500, L100.0100 ####[facility] [address] [place], [address] Chloride [Moles/Vol] 105 mmol/L Normal 98-108 [facility] Comment on above: Performed By: #### L 500.2500, L100.0100 ####[facility] [address] [place], [address] CO2 [Moles/Vol] 22.7 mmol/L Normal 21.0-32.0 [facility] Comment on above: Performed By: #### L 500.2500, L100.0100 ####[facility] [address] [place], [address] Creatinine [Mass/Vol] 5.19 mg/dL High 0.70-1.20 [facility] Comment on above: Performed By: #### L 500.2500, L100.0100 ####[facility] [address] [place], [address] ECRCL 15.16 ml/min Low 50-250 [facility] Comment on above: Performed By: #### L 500.2500, L100.0100 ####[facility] [address] [place], [address] GAP 15 Normal 5-15 [facility] Comment on above: Performed By: #### L 500.2500, L100.0100 ####[facility] [address] [place], [address] GFR/1.73 sq M.predicted among non-blacks MDRD (S/P/Bld) [Vol rate/Area] 11 mL/min/{1.73_m2} Low >60 [facility] Comment on above: Result Comment: mL/m in/1.73m2 CKD-EPI Creatinine Equation (2020) Performed By: #### L 500.2500, L100.0100 ####[facility] [address] [place], [address] Glucose [Mass/Vol] 216 mg/dL High 70-99 [facility] Comment on above: Performed By: #### L 500.2500, L100.0100 ####[facility] [address] [place], [address] Potassium [Moles/Vol] 3.5 mmol/L Normal 3.3-5.1 [facility] Comment on above: Performed By: #### L 500.2500, L100.0100 ####[facility] [address] [place], [address] Sodium [Moles/Vol] 143 mmol/L Normal 133-145 [facility] Comment on above: Performed By: #### L 500.2500, L100.0100 ####[facility] [address] [place], [address] Urea nitrogen [Mass/Vol] 57 mg/dL High 4-19 [facility] Comment on above: Performed By: #### L 500.2500, L100.0100 ####[facility] [address] [place], [address] BUN/CRE 11.6 RATIO Normal 10-20 [facility] Comment on above: Performed By: #### L 500.2500 ####[facility] [address] [place], [address] Calcium [Mass/Vol] 6.9 mg/dL Low 7.6-11.0 [facility] Comment on above: Performed By: #### L 500.2500 ####[facility] [address] [place], [address] Chloride [Moles/Vol] 103 mmol/L Normal 98-108 [facility] Comment on above: Performed By: #### L 500.2500 ####[facility] [address] [place], [address] CO2 [Moles/Vol] 24.6 mmol/L Normal 21.0-32.0 [facility] Comment on above: Performed By: #### L 500.2500 ####[facility] [address] [place], [address] Creatinine [Mass/Vol] 4.95 mg/dL High 0.70-1.20 [facility] Comment on above: Performed By: #### L 500.2500 ####[facility] [address] [place], [address] ECRCL 15.89 ml/min Low 50-250 [facility] Comment on above: Performed By: #### L 500.2500 ####[facility] [address] [place], [address] GAP 15 Normal 5-15 [facility] Comment on above: Performed By: #### L 500.2500 ####[facility] [address] [place], [address] GFR/1.73 sq M.predicted among non-blacks MDRD (S/P/Bld) [Vol rate/Area] 12 mL/min/{1.73_m2} Low >60 [facility] Comment on above: Result Comment: mL/m in/1.73m2 CKD-EPI Creatinine Equation (2020) Performed By: #### L 500.2500 ####[facility] [address] [place], [address] Glucose [Mass/Vol] 235 mg/dL High 70-99 [facility] Comment on above: Performed By: #### L 500.2500 ####[facility] [address] [place], [address] Potassium [Moles/Vol] 3.4 mmol/L Normal 3.3-5.1 [facility] Comment on above: Performed By: #### L 500.2500 ####[facility] [address] [place], [address] Sodium [Moles/Vol] 142 mmol/L Normal 133-145 [facility] Comment on above: Performed By: #### L 500.2500 ####[facility] [address] [place], [address] Urea nitrogen [Mass/Vol] 57 mg/dL High 4-19 [facility] Comment on above: Performed By: #### L 500.2500 ####[facility] [address] [place], [address] Bedside Glucoseon 08-12-2024 FINGERSTICK GLU 256 mg/dL High 74-106 [facility] Comment on above: Result Comment: ANABELLE GEMENT OF PATIENT CARE PER NURSING PROTOCOL Performed By: #### L 501.080 ####[facility] [address] [place], [address] FINGERSTICK GLU 161 mg/dL High 74-106 [facility] Comment on above: Result Comment: ANABELLE GEMENT OF PATIENT CARE PER NURSING PROTOCOL Performed By: #### L 501.080 ####[facility] [address] [place], [address] FINGERSTICK GLU 115 mg/dL High 74-106 [facility] Comment on above: Result Comment: ANABELLE GEMENT OF PATIENT CARE PER NURSING PROTOCOL Performed By: #### L 501.080 ####[facility] [address] [place], [address] FINGERSTICK GLU 152 mg/dL High 74-106 [facility] Comment on above: Result Comment: ANABELLE GEMENT OF PATIENT CARE PER NURSING PROTOCOL Performed By: #### L 501.080 ####[facility] [address] [place], [address] FINGERSTICK GLU 166 mg/dL High 74-106 [facility] Comment on above: Result Comment: ANABELLE GEMENT OF PATIENT CARE PER NURSING PROTOCOL Performed By: #### L 501.080 ####[facility] [address] [place], [address] FINGERSTICK GLU 186 mg/dL High -106 [facility] Comment on above: Result Comment: ANABELLE GEMENT OF PATIENT CARE PER NURSING PROTOCOL Performed By: #### L 501.080 ####[facility] [address] [place], [address] FINGERSTICK GLU 208 mg/dL High 74-106 [facility] Comment on above: Result Comment: ANABELLE GEMENT OF PATIENT CARE PER NURSING PROTOCOL Performed By: #### L 501.080 ####[facility] [address] [place], [address] FINGERSTICK GLU 221 mg/dL High 74-106 [facility] Comment on above: Result Comment: ANABELLE GEMENT OF PATIENT CARE PER NURSING PROTOCOL Performed By: #### L 501.080 ####[facility] [address] [place], [address] FINGERSTICK GLU 246 mg/dL High -106 [facility] Comment on above: Result Comment: ANABELLE GEMENT OF PATIENT CARE PER NURSING PROTOCOL Performed By: #### L 501.080 ####[facility] [address] [place], [address] FINGERSTICK GLU 225 mg/dL High 74-106 [facility] Comment on above: Result Comment: ANABELLE GEMENT OF PATIENT CARE PER NURSING PROTOCOL Performed By: #### L 501.080 ####[facility] [address] [place], [address] FINGERSTICK GLU 231 mg/dL High 74-106 [facility] Comment on above: Result Comment: ANABELLE GEMENT OF PATIENT CARE PER NURSING PROTOCOL Performed By: #### L 501.080 ####[facility] [address] [place], [address] FINGERSTICK GLU 218 mg/dL High 74-106 [facility] Comment on above: Result Comment: ANABELLE GEMENT OF PATIENT CARE PER NURSING PROTOCOL Performed By: #### L 501.080 ####[facility] [address] [place], [address] FINGERSTICK GLU 274 mg/dL High -106 [facility] Comment on above: Result Comment: ANABELLE GEMENT OF PATIENT CARE PER NURSING PROTOCOL Performed By: #### L 501.080 ####[facility] [address] [place], [address] Beta-Hydroxbytyrateon 2024 BETA-HYDROXYBUT 0.2 mmol/L Normal 0.0-0.3 [facility] Comment on above: Performed By: #### L 501.6901 ####[facility] [address] [place], [address] CBC W/Diff, Automatedon - Absolute Lymph 0.96 X10 3/uL Normal 0.83-4.51 [facility] Comment on above: Performed By: #### L 500.2500, L100.0100 ####[facility] [address] [place], [address] Absolute Neut 13.3 X10 3/uL High 2.0-7.7 [facility] Comment on above: Performed By: #### L 500.2500, L100.0100 ####[facility] [address] [place], [address] Basophils/100 WBC (Bld) 0.3 % Normal 0-1 [facility] Comment on above: Performed By: #### L 500.2500, L100.0100 ####[facility] [address] [place], [address] Eosinophils/100 WBC (Bld) 0.0 % Normal 0-5 [facility] Comment on above: Performed By: #### L 500.2500, L100.0100 ####[facility] [address] [place], [address] Erythrocyte distribution width (RBC) [Ratio] 13.3 % Normal 11.6-14.6 [facility] Comment on above: Performed By: #### L 500.2500, L100.0100 ####[facility] [address] [place], [address] Hematocrit (Bld) [Volume fraction] 28.7 % Low 40-54 [facility] Comment on above: Performed By: #### L 500.2500, L100.0100 ####[facility] [address] [place], [address] Hemoglobin (Bld) [Mass/Vol] 10.3 g/dL Low 13.0-16.5 [facility] Comment on above: Performed By: #### L 500.2500, L100.0100 ####[facility] [address] [place], [address] IG% 1.500 High 0.0-0.9 [facility] Comment on above: Result Comment: IG% - Immature Granulocytes (promyelocytes, myelocytes andmetamyelocytes) > 1% indicates that a LEFT SHIFT is Present. Performed By: #### L 500.2500, L100.0100 ####[facility] [address] [place], [address] Lymphocytes/100 WBC (Bld) 6.3 % Low 19-41 [facility] Comment on above: Performed By: #### L 500.2500, L100.0100 ####[facility] [address] [place], [address] MCH (RBC) [Entitic mass] 31.1 pg Normal 27.0-32.0 [facility] Comment on above: Performed By: #### L 500.2500, L100.0100 ####[facility] [address] [place], [address] MCHC (RBC) [Mass/Vol] 35.9 g/dL Normal 32-36 [facility] Comment on above: Performed By: #### L 500.2500, L100.0100 ####[facility] [address] [place], [address] MCV (RBC) [Entitic vol] 86.7 fL Normal 80-94 [facility] Comment on above: Performed By: #### L 500.2500, L100.0100 ####[facility] [address] [place], [address] Monocytes/100 WBC (Bld) 5.0 % Normal 0-10 [facility] Comment on above: Performed By: #### L 500.2500, L100.0100 ####[facility] [address] [place], [address] Neutrophils/100 WBC (Bld) 86.9 % High 47-70 [facility] Comment on above: Performed By: #### L 500.2500, L100.0100 ####[facility] [address] [place], [address] Nucleated RBC (Bld) [#/Vol] 0 10*3/uL Normal 0-5 [facility] Comment on above: Performed By: #### L 500.2500, L100.0100 ####[facility] [address] [place], [address] Platelet mean volume (Bld) [Entitic vol] 11.6 fL Normal 6.2-12.0 [facility] Comment on above: Performed By: #### L 500.2500, L100.0100 ####[facility] [address] [place], [address] Platelets (Bld) [#/Vol] 144 10*3/uL Low 150-450 [facility] Comment on above: Performed By: #### L 500.2500, L100.0100 ####[facility] [address] [place], [address] RBC (Bld) [#/Vol] 3.31 10*6/uL Low 4.6-6.2 [facility] Comment on above: Performed By: #### L 500.2500, L100.0100 ####[facility] [address] [place], [address] RDW SD 42.0 fl Normal 35.1-43.9 [facility] Comment on above: Performed By: #### L 500.2500, L100.0100 ####[facility] [address] [place], [address] WBC (Bld) [#/Vol] 15.3 10*3/uL High 4.4-11.0 [facility] Comment on above: Performed By: #### L 500.2500, L100.0100 ####[facility] [address] [place], [address] Consultation - Nephrologyon 08-12-2024 Consultation - Nephrology Normal [facility] EGD Reporton 08-12-2024 EGD Report Normal [facility] EGD Report Normal [facility] Kidney and Bladderon 025 Kidney and Bladder Normal [facility] Alcohol, Blood (Medical)-Ser umon 08-11-2024 SERUM ETOH < 10.1 Normal <=10.0 [facility] Comment on above: Result Comment: This test is for medical purposes only. The legaldefinition of intoxication varies according to local law. Performed By: #### L 501.9100, L501.9985 ####[facility] [address] [place], [address] Basic Metabolic Profile (BMP )on 08-11-2024 BUN/CRE 11.6 RATIO Normal 10-20 [facility] Comment on above: Order Comment: Call MD with results STAT Performed By: #### L 500.2500 ####[facility] [address] [place], [address] Calcium [Mass/Vol] 7.0 mg/dL Low 7.6-11.0 [facility] Comment on above: Order Comment: Call MD with results STAT Performed By: #### L 500.2500 ####[facility] [address] [place], [address] Chloride [Moles/Vol] 102 mmol/L Normal 98-108 [facility] Comment on above: Order Comment: Call MD with results STAT Performed By: #### L 500.2500 ####[facility] [address] [place], [address] CO2 [Moles/Vol] 24.9 mmol/L Normal 21.0-32.0 [facility] Comment on above: Order Comment: Call MD with results STAT Performed By: #### L 500.2500 ####[facility] [address] [place], [address] Creatinine [Mass/Vol] 4.78 mg/dL High 0.70-1.20 [facility] Comment on above: Order Comment: Call MD with results STAT Performed By: #### L 500.2500 ####[facility] [address] [place], [address] ECRCL 16.46 ml/min Low 50-250 [facility] Comment on above: Order Comment: Call MD with results STAT Performed By: #### L 500.2500 ####[facility] [address] [place], [address] GAP 16 High 5-15 [facility] Comment on above: Order Comment: Call MD with results STAT Performed By: #### L 500.2500 ####[facility] [address] [place], [address] GFR/1.73 sq M.predicted among non-blacks MDRD (S/P/Bld) [Vol rate/Area] 13 mL/min/{1.73_m2} Low >60 [facility] Comment on above: Order Comment: Call MD with results STAT Result Comment: mL/m in/1.73m2 CKD-EPI Creatinine Equation (2020) Performed By: #### L 500.2500 ####[facility] [address] [place], [address] Glucose [Mass/Vol] 353 mg/dL High 70-99 [facility] Comment on above: Order Comment: Call MD with results STAT Performed By: #### L 500.2500 ####[facility] [address] [place], [address] Potassium [Moles/Vol] 3.7 mmol/L Normal 3.3-5.1 [facility] Comment on above: Order Comment: Call MD with results STAT Performed By: #### L 500.2500 ####[facility] [address] [place], [address] Sodium [Moles/Vol] 142 mmol/L Normal 133-145 [facility] Comment on above: Order Comment: Call MD with results STAT Performed By: #### L 500.2500 ####[facility] [address] [place], [address] Urea nitrogen [Mass/Vol] 55 mg/dL High 4-19 [facility] Comment on above: Order Comment: Call MD with results STAT Performed By: #### L 500.2500 ####[facility] [address] [place], [address] BUN/CRE 12.3 RATIO Normal 10-20 [facility] Comment on above: Order Comment: Call MD with results STAT Performed By: #### L 500.2500 ####[facility] [address] [place], [address] Calcium [Mass/Vol] 7.0 mg/dL Low 7.6-11.0 [facility] Comment on above: Order Comment: Call MD with results STAT Performed By: #### L 500.2500 ####[facility] [address] [place], [address] Chloride [Moles/Vol] 100 mmol/L Normal 98-108 [facility] Comment on above: Order Comment: Call MD with results STAT Performed By: #### L 500.2500 ####[facility] [address] [place], [address] CO2 [Moles/Vol] 24.6 mmol/L Normal 21.0-32.0 [facility] Comment on above: Order Comment: Call MD with results STAT Performed By: #### L 500.2500 ####[facility] [address] [place], [address] Creatinine [Mass/Vol] 4.56 mg/dL High 0.70-1.20 [facility] Comment on above: Order Comment: Call MD with results STAT Performed By: #### L 500.2500 ####[facility] [address] [place], [address] ECRCL 17.25 ml/min Low 50-250 [facility] Comment on above: Order Comment: Call MD with results STAT Performed By: #### L 500.2500 ####[facility] [address] [place], [address] GAP 17 High 5-15 [facility] Comment on above: Order Comment: Call MD with results STAT Performed By: #### L 500.2500 ####[facility] [address] [place], [address] GFR/1.73 sq M.predicted among non-blacks MDRD (S/P/Bld) [Vol rate/Area] 13 mL/min/{1.73_m2} Low >60 [facility] Comment on above: Order Comment: Call MD with results STAT Result Comment: mL/m in/1.73m2 CKD-EPI Creatinine Equation (2020) Performed By: #### L 500.2500 ####[facility] [address] [place], [address] Glucose [Mass/Vol] 421 mg/dL High 70-99 [facility] Comment on above: Order Comment: Call MD with results STAT Performed By: #### L 500.2500 ####[facility] [address] [place], [address] Potassium [Moles/Vol] 4.0 mmol/L Normal 3.3-5.1 [facility] Comment on above: Order Comment: Call MD with results STAT Performed By: #### L 500.2500 ####[facility] [address] [place], [address] Sodium [Moles/Vol] 142 mmol/L Normal 133-145 [facility] Comment on above: Order Comment: Call MD with results STAT Performed By: #### L 500.2500 ####[facility] [address] [place], [address] Urea nitrogen [Mass/Vol] 56 mg/dL High 4-19 [facility] Comment on above: Order Comment: Call MD with results STAT Performed By: #### L 500.2500 ####[facility] [address] [place], [address] Glucose [Mass/Vol] 491 mg/dL Invalid Interpretation Code 70-99 [facility] Comment on above: Order Comment: Call MD with results STAT Result Comment: Crit ical Result(s) Called LMCCLUGGAGE at: 1721 by:CRISTOPHERMAN??Results read back by same.Critical Result(s) Called at: by:??Results read back bysame. AMENDED REPORT 08/11/24 1722 GLU previously reported as: 491 *H mg/dLCritical Result(s) Called LMCCLUGGAGE at: 1721 by:ANANDORKMAN??Results read back by same. Performed By: #### L 500.2500 ####[facility] [address] [place], [address] BUN/CRE 13.5 RATIO Normal 10-20 [facility] Comment on above: Order Comment: Call MD with results STAT Performed By: #### L 500.2500 ####[facility] [address] [place], [address] Calcium [Mass/Vol] 6.9 mg/dL Low 7.6-11.0 [facility] Comment on above: Order Comment: Call MD with results STAT Performed By: #### L 500.2500 ####[facility] [address] [place], [address] Chloride [Moles/Vol] 94 mmol/L Low 98-108 [facility] Comment on above: Order Comment: Call MD with results STAT Performed By: #### L 500.2500 ####[facility] [address] [place], [address] CO2 [Moles/Vol] 22.0 mmol/L Normal 21.0-32.0 [facility] Comment on above: Order Comment: Call MD with results STAT Performed By: #### L 500.2500 ####[facility] [address] [place], [address] Creatinine [Mass/Vol] 3.87 mg/dL High 0.70-1.20 [facility] Comment on above: Order Comment: Call MD with results STAT Performed By: #### L 500.2500 ####[facility] [address] [place], [address] ECRCL 21.17 ml/min Low 50-250 [facility] Comment on above: Order Comment: Call MD with results STAT Performed By: #### L 500.2500 ####[facility] [address] [place], [address] GAP 23 High 5-15 [facility] Comment on above: Order Comment: Call MD with results STAT Performed By: #### L 500.2500 ####[facility] [address] [place], [address] GFR/1.73 sq M.predicted among non-blacks MDRD (S/P/Bld) [Vol rate/Area] 17 mL/min/{1.73_m2} Low >60 [facility] Comment on above: Order Comment: Call MD with results STAT Result Comment: mL/m in/1.73m2 CKD-EPI Creatinine Equation (2020) Performed By: #### L 500.2500 ####[facility] [address] [place], [address] Glucose [Mass/Vol] 598 mg/dL Invalid Interpretation Code 70-99 [facility] Comment on above: Order Comment: Call MD with results STAT Result Comment: Crit ical Result(s) Called at 1220: by: ROBERT CHRISTENSEN. ??Results read back by same. Performed By: #### L 500.2500 ####[facility] [address] [place], [address] Potassium [Moles/Vol] 4.2 mmol/L Normal 3.3-5.1 [facility] Comment on above: Order Comment: Call MD with results STAT Performed By: #### L 500.2500 ####[facility] [address] [place], [address] Sodium [Moles/Vol] 139 mmol/L Normal 133-145 [facility] Comment on above: Order Comment: Call MD with results STAT Performed By: #### L 500.2500 ####[facility] [address] [place], [address] Urea nitrogen [Mass/Vol] 52 mg/dL High 4-19 [facility] Comment on above: Order Comment: Call MD with results STAT Performed By: #### L 500.2500 ####[facility] [address] [place], [address] BUN/CRE 13.4 RATIO Normal 10-20 [facility] Comment on above: Order Comment: Call MD with results STAT Performed By: #### L 500.2500, L501.6901 ####[facility] [address] [place], [address] Calcium [Mass/Vol] 7.0 mg/dL Low 7.6-11.0 [facility] Comment on above: Order Comment: Call MD with results STAT Performed By: #### L 500.2500, L501.6901 ####[facility] [address] [place], [address] Chloride [Moles/Vol] 86 mmol/L Low 98-108 [facility] Comment on above: Order Comment: Call MD with results STAT Performed By: #### L 500.2500, L501.6901 ####[facility] [address] [place], [address] CO2 [Moles/Vol] 12.7 mmol/L Low 21.0-32.0 [facility] Comment on above: Order Comment: Call MD with results STAT Performed By: #### L 500.2500, L501.6901 ####[facility] [address] [place], [address] Creatinine [Mass/Vol] 3.62 mg/dL High 0.70-1.20 [facility] Comment on above: Order Comment: Call MD with results STAT Performed By: #### L 500.2500, L501.6901 ####[facility] [address] [place], [address] ECRCL 22.63 ml/min Low 50-250 [facility] Comment on above: Order Comment: Call MD with results STAT Performed By: #### L 500.2500, L501.6901 ####[facility] [address] [place], [address] GAP 39 High 5-15 [facility] Comment on above: Order Comment: Call MD with results STAT Performed By: #### L 500.2500, L501.6901 ####[facility] [address] [facility] [address] GFR/1.73 sq M.predicted among non-blacks MDRD (S/P/Bld) [Vol rate/Area] 18 mL/min/{1.73_m2} Low >60 [facility] Comment on above: Order Comment: Call MD with results STAT Result Comment: mL/m in/1.73m2 CKD-EPI Creatinine Equation (2020) Performed By: #### L 500.2500, L501.6901 ####[facility] [address] [place], [address] Glucose [Mass/Vol] 760 mg/dL Invalid Interpretation Code 70-99 [facility] Comment on above: Order Comment: Call MD with results STAT Result Comment: Crit ical Result(s) Called at: by:??[facility] Result(s) Called at: 0613 by:??LAKSHMI BECKR2. Results read back by same. Performed By: #### L 500.2500, L501.6901 ####[facility] [address] [place], [address] Potassium [Moles/Vol] 3.7 mmol/L Normal 3.3-5.1 [facility] Comment on above: Order Comment: Call MD with results STAT Performed By: #### L 500.2500, L501.6901 ####[facility] [address] [place], [address] Sodium [Moles/Vol] 137 mmol/L Normal 133-145 [facility] Comment on above: Order Comment: Call MD with results STAT Performed By: #### L 500.2500, L501.6901 ####[facility] [address] [place], [address] Urea nitrogen [Mass/Vol] 49 mg/dL High 4-19 [facility] Comment on above: Order Comment: Call MD with results STAT Performed By: #### L 500.2500, L501.6901 ####[facility] [address] [place], [address] BUN/CRE 13.4 RATIO Normal 10-20 [facility] Comment on above: Order Comment: Call MD with results STAT Performed By: #### L 500.2500 ####[facility] [address] [place], [address] Calcium [Mass/Vol] 6.9 mg/dL Low 7.6-11.0 [facility] Comment on above: Order Comment: Call MD with results STAT Performed By: #### L 500.2500 ####[facility] [address] [place], [address] Chloride [Moles/Vol] 82 mmol/L Low 98-108 [facility] Comment on above: Order Comment: Call MD with results STAT Performed By: #### L 500.2500 ####[facility] [address] [place], [address] CO2 [Moles/Vol] 10.1 mmol/L Low 21.0-32.0 [facility] Comment on above: Order Comment: Call MD with results STAT Performed By: #### L 500.2500 ####[facility] [address] [place], [address] Creatinine [Mass/Vol] 3.63 mg/dL High 0.70-1.20 [facility] Comment on above: Order Comment: Call MD with results STAT Performed By: #### L 500.2500 ####[facility] [address] [place], [address] ECRCL 22.57 ml/min Low 50-250 [facility] Comment on above: Order Comment: Call MD with results STAT Performed By: #### L 500.2500 ####[facility] [address] [place], [address] GAP 44 High 5-15 [facility] Comment on above: Order Comment: Call MD with results STAT Performed By: #### L 500.2500 ####[facility] [address] [place], [address] GFR/1.73 sq M.predicted among non-blacks MDRD (S/P/Bld) [Vol rate/Area] 18 mL/min/{1.73_m2} Low >60 [facility] Comment on above: Order Comment: Call MD with results STAT Result Comment: mL/m in/1.73m2 CKD-EPI Creatinine Equation (2020) Performed By: #### L 500.2500 ####[facility] [address] [place], [address] Glucose [Mass/Vol] 881 mg/dL Invalid Interpretation Code 70-99 [facility] Comment on above: Order Comment: Call MD with results STAT Result Comment: Crit ical Result(s) Called at:0253 by:??ALKSHMI SANCHEZ TO KRISTEN. Results read back by same. Performed By: #### L 500.2500 ####[facility] [address] [place], [address] Potassium [Moles/Vol] 3.7 mmol/L Normal 3.3-5.1 [facility] Comment on above: Order Comment: Call MD with results STAT Performed By: #### L 500.2500 ####[facility] [address] [place], [address] Sodium [Moles/Vol] 136 mmol/L Normal 133-145 [facility] Comment on above: Order Comment: Call MD with results STAT Performed By: #### L 500.2500 ####[facility] [address] [place], [address] Urea nitrogen [Mass/Vol] 49 mg/dL High 4-19 [facility] Comment on above: Order Comment: Call MD with results STAT Performed By: #### L 500.2500 ####[facility] [address] [place], [address] Bedside Glucoseon 08-11-2024 FINGERSTICK GLU 328 mg/dL High 74-106 [facility] Comment on above: Result Comment: ANABELLE GEMENT OF PATIENT CARE PER NURSING PROTOCOL Performed By: #### L 501.080 ####[facility] [address] [place], [address] FINGERSTICK GLU 345 mg/dL High 74-106 [facility] Comment on above: Result Comment: ANABELLE GEMENT OF PATIENT CARE PER NURSING PROTOCOL Performed By: #### L 501.080 ####[facility] [address] [place], [address] FINGERSTICK GLU 304 mg/dL High 74-106 [facility] Comment on above: Result Comment: ANABELLE GEMENT OF PATIENT CARE PER NURSING PROTOCOL Performed By: #### L 501.080 ####[facility] [address] [place], [address] FINGERSTICK GLU 327 mg/dL High 74-106 [facility] Comment on above: Result Comment: ANABELLE GEMENT OF PATIENT CARE PER NURSING PROTOCOL Performed By: #### L 501.080 ####[facility] [address] [place], [address] FINGERSTICK GLU 350 mg/dL High 74-[address] [place] [address] Comment on above: Result Comment: ANABELLE GEMENT OF PATIENT CARE PER NURSING PROTOCOL Performed By: #### L 501.080 ####[facility] [address] [place], [address] FINGERSTICK GLU 387 mg/dL High [facility]106 [facility] Comment on above: Result Comment: ANABELLE GEMENT OF PATIENT CARE PER NURSING PROTOCOL Performed By: #### L 501.080 ####[facility] [address] [place], [address] FINGERSTICK GLU 401 mg/dL High [address] [place] [address] Comment on above: Result Comment: ANABELLE GEMENT OF PATIENT CARE PER NURSING PROTOCOL Performed By: #### L 501.080 ####[facility] [address] [place], [address] FINGERSTICK GLU 447 mg/dL High -[address] [place] [address] Comment on above: Result Comment: ANABELLE GEMENT OF PATIENT CARE PER NURSING PROTOCOL Performed By: #### L 501.080 ####[facility] [address] [place], [address] FINGERSTICK GLU 433 mg/dL High [address] [place] [address] Comment on above: Result Comment: ANABELLE GEMENT OF PATIENT CARE PER NURSING PROTOCOL Performed By: #### L 501.080 ####[facility] [address] [place], [address] FINGERSTICK GLU 466 mg/dL Invalid Interpretation Code 74-[address] [place] [address] Comment on above: Result Comment: ANABELLE GEMENT OF PATIENT CARE PER NURSING PROTOCOL Performed By: #### L 501.080 ####[facility] [address] [place], [address] FINGERSTICK GLU 456 mg/dL Invalid Interpretation Code 74-106 [facility] Comment on above: Result Comment: ANABELLE GEMENT OF PATIENT CARE PER NURSING PROTOCOL Performed By: #### L 501.080 ####[facility] [address] [place], [address] FINGERSTICK GLU 438 mg/dL High [address] [place] [address] Comment on above: Result Comment: ANABELLE GEMENT OF PATIENT CARE PER NURSING PROTOCOL Performed By: #### L 501.080 ####[facility] [address] [place], [address] FINGERSTICK GLU > 500 Invalid Interpretation Code [address] [place] [address] Comment on above: Result Comment: Dr Olu de jesus FollowedMANAGEMENT OF PATIENT CARE PER NURSING PROTOCOL Performed By: #### L 501.080 ####[facility] [address] [place], [address] FINGERSTICK GLU 475 mg/dL Invalid Interpretation Code [address] [place] [address] Comment on above: Result Comment: Dr Olu de jesus FollowedMANAGEMENT OF PATIENT CARE PER NURSING PROTOCOL Performed By: #### L 501.080 ####[facility] [address] [place], [address] FINGERSTICK GLU 479 mg/dL Invalid Interpretation Code [address] [place] [address] Comment on above: Result Comment: ANABELLE GEMENT OF PATIENT CARE PER NURSING PROTOCOL Performed By: #### L 501.080 ####[facility] [address] [place], [address] FINGERSTICK GLU > 500 Invalid Interpretation Code [address] [place] [address] Comment on above: Result Comment: ANABELLE GEMENT OF PATIENT CARE PER NURSING PROTOCOL Performed By: #### L 501.080 ####[facility] [address] [place], [address] FINGERSTICK GLU > 500 Invalid Interpretation Code [address] [place] [address] Comment on above: Result Comment: Repe at TestMANAGEMENT OF PATIENT CARE PER NURSING PROTOCOL Performed By: #### L 501.080 ####[facility] [address] [place], [address] FINGERSTICK GLU > 500 Invalid Interpretation Code 74-106 [facility] Comment on above: Result Comment: Insu vince GivenMANAGEMENT OF PATIENT CARE PER NURSING PROTOCOL Performed By: #### L 501.080 ####[facility] [address] [place], [address] Beta-Hydroxbytyrateon 2024 BETA-HYDROXYBUT 13.1 mmol/L Normal 0.0-0.3 [facility] Comment on above: Performed By: #### L 500.2500, L501.6901 ####[facility] [address] [place], [address] Blood Gases by CPSon 025 ANTONIO TEST Positive Normal [facility] Comment on above: Performed By: #### L 9000.0800 ####[facility] [address] [place], [address] Base excess Calc (Bld) [Moles/Vol] -3 mmol/L Low -2 to +2 [facility] Comment on above: Performed By: #### L 9000.0800 ####[facility] [address] [place], [address] Blood Gas Type ART Normal [facility] Comment on above: Performed By: #### L 9000.0800 ####[facility] [address] [place], [address] CO2 [Moles/Vol] 23 mmol/L Normal [facility] Comment on above: Performed By: #### L 9000.0800 ####[facility] [address] [place], [address] FI02 35.0 Normal [facility] Comment on above: Performed By: #### L 9000.0800 ####[facility] [address] [place], [address] HCO3 (Bld) [Moles/Vol] 21.5 mmol/L Low 22-26 [facility] Comment on above: Performed By: #### L 9000.0800 ####[facility] [address] [place], [address] Mode AC Normal [facility] Comment on above: Performed By: #### L 9000.0800 ####[facility] [address] [place], [address] O2 Delivery Dev Adult Vent Normal [facility] Comment on above: Performed By: #### L 9000.0800 ####[facility] [address] [place], [address] pCO2 32.4 mmHg Low 35-45 [facility] Comment on above: Performed By: #### L 9000.0800 ####[facility] [address] [place], [address] PEEP 5 Normal [facility] Comment on above: Performed By: #### L 9000.0800 ####[facility] [address] [place], [address] pH (Bld) 7.43 [pH] Normal 7.35-7.45 [facility] Comment on above: Performed By: #### L 9000.0800 ####[facility] [address] [place], [address] PO2 81 mmHG Normal 75-100 [facility] Comment on above: Performed By: #### L 9000.0800 ####[facility] [address] [place], [address] RR 18 Normal [facility] Comment on above: Performed By: #### L 9000.0800 ####[facility] [address] [place], [address] SITE R Radial Normal [facility] Comment on above: Performed By: #### L 9000.0800 ####[facility] [address] [place], [address] SO2 96 Normal 95-99 [facility] Comment on above: Performed By: #### L 8999.0800 ####[facility] [address] [place], [address] Vt 500.0 mL Normal [facility] Comment on above: Performed By: #### L 8999.0800 ####[facility] [address] [place], [address] ANTONIO TEST N/A Normal [facility] Comment on above: Performed By: #### L 8999.0800 ####[facility] [address] [place], [address] Base excess Calc (Bld) [Moles/Vol] -19 mmol/L Low -2 to +2 [facility] Comment on above: Performed By: #### L 8999.0800 ####[facility] [address] [place], [address] Blood Gas Type ART Normal [facility] Comment on above: Performed By: #### L 8999.0800 ####[facility] [address] [place], [address] CO2 [Moles/Vol] 10 mmol/L Normal [facility] Comment on above: Performed By: #### L 8999.0800 ####[facility] [address] [place], [address] FI02 45.0 Normal [facility] Comment on above: Performed By: #### L 8999.0800 ####[facility] [address] [place], [address] HCO3 (Bld) [Moles/Vol] 9.4 mmol/L Low 22-26 [facility] Comment on above: Performed By: #### L 8999.08 ####[facility] [address] [place], [address] Mode AC Normal [facility] Comment on above: Performed By: #### L 0.0800 ####[facility] [address] [place], [address] O2 Delivery Dev Adult Vent Normal [facility] Comment on above: Performed By: #### L 8999.0800 ####[facility] [address] [place], [address] pCO2 24.7 mmHg Low 35-45 [facility] Comment on above: Performed By: #### L 0.0800 ####[facility] [address] [place], [address] PEEP 5 Normal [facility] Comment on above: Performed By: #### L 8999.0800 ####[facility] [address] [place], [address] pH (Bld) 7.19 [pH] Invalid Interpretation Code 7.35-7.45 [facility] Comment on above: Performed By: #### L 8999.0800 ####[facility] [address] [place], [address] PO2 121 mmHG High 75-100 [facility] Comment on above: Performed By: #### L 0.0800 ####[facility] [address] [place], [address] Read Back By Yes [facility] Comment on above: Performed By: #### L 8999.0800 ####[facility] [address] [place], [address] Abdi [facility] Comment on above: Performed By: #### L 0.0800 ####[facility] [address] [place], [address] RR 18 Normal [facility] Comment on above: Performed By: #### L 9000.0800 ####[facility] [address] [place], [address] SITE L Radial Normal [facility] Comment on above: Performed By: #### L 9000.0800 ####[facility] [address] [place], [address] SO2 98 Normal 95-99 [facility] Comment on above: Performed By: #### L 9000.0800 ####[facility] [address] [place], [address] Time Given 00:10:37 Normal [facility] [facility] Comment on above: Performed By: #### L 9000.0800 ####[facility] [address] [place], [address] Vt 500.0 mL Normal [facility] Comment on above: Performed By: #### L 9000.0800 ####[facility] [address] [place], [address] CBC W/Diff, Automatedon 04- PLT EST ADEQUATE Normal ADEQ [facility] Comment on above: Performed By: #### L 100.0100 ####[facility] [address] [place], [address] RED CELL MORPH NORM C+C Normal NORM C C [facility] Comment on above: Performed By: #### L 100.0100 ####[facility] [address] [place], [address] Absolute Lymph 1.97 X10 3/uL Normal 0.83-4.51 [facility] Comment on above: Performed By: #### L 100.0100 ####[facility] [address] [place], [address] Absolute Neut 15.6 X10 3/uL High 2.0-7.7 [facility] Comment on above: Performed By: #### L 100.0100 ####[facility] [address] [place], [address] CPK Total, Creatine Kinaseon 08-11-2024 CPK TOTAL 1589 U/L High 24-195 [facility] Comment on above: Performed By: #### L 506.0200, L503.0106, L501.3620, L500.4050, L503.6005, L501.9520, L501.5200, M200.1000 ####[facility] [address] [place], [address] Comprehensive Metabolic Prof ilon 08-11-2024 Albumin [Mass/Vol] 3.0 g/dL Low 3.4-4.8 [facility] Comment on above: Order Comment: Call MD with results STAT Performed By: #### L 506.0200, L503.0106, L501.3620, L500.4050, L503.6005, L501.9520, L501.5200, M200.1000 ####[facility] [address] [place], [address] Albumin/Globulin [Mass ratio] 1.4 {ratio} Normal 0.9-2.4 [facility] Comment on above: Order Comment: Call MD with results STAT Performed By: #### L 506.0200, L503.0106, L501.3620, L500.4050, L503.6005, L501.9520, L501.5200, M200.1000 ####[facility] [address] [place], [address] ALK PHOS 129 U/L Normal 40-129 [facility] Comment on above: Order Comment: Call MD with results STAT Performed By: #### L 506.0200, L503.0106, L501.3620, L500.4050, L503.6005, L501.9520, L501.5200, M200.1000 ####[facility] [address] [place], [address] ALT [Catalytic activity/Vol] 24 U/L Normal <=46 [facility] Comment on above: Order Comment: Call MD with results STAT Performed By: #### L 506.0200, L503.0106, L501.3620, L500.4050, L503.6005, L501.9520, L501.5200, M200.1000 ####[facility] [address] [place], [address] AST [Catalytic activity/Vol] 69 U/L High <=37 [facility] Comment on above: Order Comment: Call MD with results STAT Performed By: #### L 506.0200, L503.0106, L501.3620, L500.4050, L503.6005, L501.9520, L501.5200, M200.1000 ####[facility] [address] [place], [address] Bilirubin [Mass/Vol] 0.17 mg/dL Normal 0.00-1.30 [facility] Comment on above: Order Comment: Call MD with results STAT Performed By: #### L 506.0200, L503.0106, L501.3620, L500.4050, L503.6005, L501.9520, L501.5200, M200.1000 ####[facility] [address] [place], [address] BUN/CRE 12.8 RATIO Normal 10-20 [facility] Comment on above: Order Comment: Call MD with results STAT Performed By: #### L 506.0200, L503.0106, L501.3620, L500.4050, L503.6005, L501.9520, L501.5200, M200.1000 ####[facility] [address] [place], [place], [address] Calcium [Mass/Vol] 7.1 mg/dL Low 7.6-11.0 [facility] Comment on above: Order Comment: Call MD with results STAT Performed By: #### L 506.0200, L503.0106, L501.3620, L500.4050, L503.6005, L501.9520, L501.5200, M200.1000 ####[facility] [address] [place], [address] Chloride [Moles/Vol] 78 mmol/L Low 98-108 [facility] Comment on above: Order Comment: Call MD with results STAT Performed By: #### L 506.0200, L503.0106, L501.3620, L500.4050, L503.6005, L501.9520, L501.5200, M200.1000 ####[facility] [address] [place], [place], [id number] CO2 [Moles/Vol] 6.8 mmol/L Invalid Interpretation Code 21.0-32.0 [facility] Comment on above: Order Comment: Call MD with results STAT Result Comment: Crit ical Result(s) Called at:0023 by: LAKSHMI SANCHEZ [place] [address].??Results read back by same.Critical Result(s) Called at: by:??[facility] Performed By: #### L 506.0200, L503.0106, L501.3620, L500.4050, L503.6005, L501.9520, L501.5200, M200.1000 ####[facility] [address] [place], [address] Creatinine [Mass/Vol] 3.59 mg/dL High 0.70-1.20 [facility] Comment on above: Order Comment: Call with results STAT Performed By: #### L 506.0200, L503.0106, L501.3620, L500.4050, L503.6005, L501.9520, L501.5200, M200.1000 ####[facility] [address] [place], [address] ECRCL 22.82 ml/min Low 50-250 [facility] Comment on above: Order Comment: Call MD with results STAT Performed By: #### L 506.0200, L503.0106, L501.3620, L500.4050, L503.6005, L501.9520, L501.5200, M200.1000 ####[facility] [address] [place], [address] GAP 51 High 5-15 [facility] Comment on above: Order Comment: Call MD with results STAT Performed By: #### L 506.0200, L503.0106, L501.3620, L500.4050, L503.6005, L501.9520, L501.5200, M200.1000 ####[facility] [address] [place], [place], [address] GFR/1.73 sq M.predicted among non-blacks MDRD (S/P/Bld) [Vol rate/Area] 18 mL/min/{1.73_m2} Low >60 [facility] Comment on above: Order Comment: Call MD with results STAT Result Comment: mL/m in/1.73m2 CKD-EPI Creatinine Equation (2020) Performed By: #### L 506.0200, L503.0106, L501.3620, L500.4050, L503.6005, L501.9520, L501.5200, M200.1000 ####[facility] [address] [place], [address] Globulin (S) [Mass/Vol] 2.1 g/dL Low 2.2-4.2 [facility] Comment on above: Order Comment: Call MD with results STAT Performed By: #### L 506.0200, L503.0106, L501.3620, L500.4050, L503.6005, L501.9520, L501.5200, M200.1000 ####[facility] [address] [place], [address] Glucose [Mass/Vol] 982 mg/dL Invalid Interpretation Code 70-99 [facility] Comment on above: Order Comment: Call MD with results STAT Result Comment: Crit ical Result(s) Called at: 0032by:??LAKSHMI SANCHEZ TO JENELLEREMI. Results read back by same.Critical Result(s) Called at: by:??Results read back bysame. Performed By: #### L 506.0200, L503.0106, L501.3620, L500.4050, L503.6005, L501.9520, L501.5200, M200.1000 ####[facility] [address] [place], [address] Potassium [Moles/Vol] 4.0 mmol/L Normal 3.3-5.1 [facility] Comment on above: Order Comment: Call MD with results STAT Performed By: #### L 506.0200, L503.0106, L501.3620, L500.4050, L503.6005, L501.9520, L501.5200, M200.1000 ####[facility] [address] [place], [address] Sodium [Moles/Vol] 136 mmol/L Normal 133-145 [facility] Comment on above: Order Comment: Call MD with results STAT Performed By: #### L 506.0200, L503.0106, L501.3620, L500.4050, L503.6005, L501.9520, L501.5200, M200.1000 ####[facility] [address] [place], [address] T PROT 5.1 g/dL Low 5.9-8.4 [facility] Comment on above: Order Comment: Call MD with results STAT Performed By: #### L 506.0200, L503.0106, L501.3620, L500.4050, L503.6005, L501.9520, L501.5200, M200.1000 ####[facility] [address] [place], [address] Urea nitrogen [Mass/Vol] 46 mg/dL High 4-19 [facility] Comment on above: Order Comment: Call MD with results STAT Performed By: #### L 506.0200, L503.0106, L501.3620, L500.4050, L503.6005, L501.9520, L501.5200, M200.1000 ####[facility] [address] [facility] [place], [address] Consultation - Intensiviston 08-11-2024 Consultation - Air Vice [employer] Normal [facility] Folates,Serum (Folic Acid)on 08-11-2024 FOLATES,SERUM 15.20 ng/mL Normal 4.60-34.80 [facility] Comment on above: Order Comment: Call MD with results STATN Result Comment: Hemo lysis, Results will be affected, Requires Recollection. Performed By: #### L 506.0200, L503.0106, L501.3620, L500.4050, L503.6005, L501.9520, L501.5200, M200.1000 ####[facility] [address] [place], [address] Free T3on 08-11-2024 Free T3 [Mass/Vol] 1.0 pg/mL Low 2.18-3.98 [facility] Comment on above: Performed By: #### L 501.98454, L506.0400 ####[facility] [address] [place], [address] Glucoseon 08-11-2024 Glucose [Mass/Vol] 936 mg/dL Invalid Interpretation Code 70-99 [facility] Comment on above: Result Comment: Crit ical Result(s) Called at:0117 by:??[facility] Results read back by same. Performed By: #### L 501.0100 ####[facility] [address] [place], [address] Gram Stainon 08-11-2024 GS Acceptable Specimen? Yes (<25 Epithelial cells per/lpf) Gram Stain 1+ Gram positive cocci Rare Gram positive rods Normal [facility] Comment on above: Performed By: #### M 100.2000, M100.2400 ####[facility] [address] [place], [address] Hemoglobin A1con 08-11-2024 HbA1c (Bld) [Mass fraction] 11.4 % High <=5.6 [facility] Comment on above: Result Comment: Norm al < 5.7 % Prediabetic 5.7 - 6.4 % Diabetic >or= 6.5 % Please note range changes. Performed By: #### L 501.9100, L501.9985 ####[facility] [address] [place], [address] Lactic Acidon 08-11-2024 Lactate [Moles/Vol] 3.4 mmol/L Invalid Interpretation Code 0.0-2.0 [facility] Comment on above: Order Comment: Y Result Comment: Crit ical Result(s) Called at 0757: by: ROBERT CHRISTENSEN. ??Results read back by same.Critical Result(s) Called at: by:??Results read back bysame. AMENDED REPORT 08/11/24 0809 LACTIC ACID previously reported as: 3.4 *H mmol/LCritical Result(s) Called at 0757: by: ROBERT CHRISTENSEN. ??Results read back by same. Performed By: #### L 503.6005 ####[facility] [address] [place], [address] Lactate [Moles/Vol] 2.9 mmol/L Invalid Interpretation Code 0.0-2.0 [facility] Comment on above: Result Comment: Crit ical Result(s) Called at: 0454 by:??LAKSHMI ACHARYA. Results read back by same. Performed By: #### L 503.6005 ####[facility] [address] [place], [address] Lactate [Moles/Vol] 2.4 mmol/L Invalid Interpretation Code 0.0-2.0 [facility] Comment on above: Order Comment: Comme nts: if result >2, system reflex orders 2nd test @ 4hrsY Result Comment: Crit ical Result(s) Called at: 0012 by: LAKSHMI SANCHEZ TO KRISTEN.??Results read back by same. Performed By: #### L 506.0200, L503.0106, L501.3620, L500.4050, L503.6005, L501.9520, L501.5200, M200.1000 ####[facility] [address] [place], [address] MR/CON.PCM.GIon 08-11-2024 MR/CON.PCM.GI Normal [facility] Magnesiumon 08-11-2024 Magnesium [Mass/Vol] 2.8 mg/dL High 1.5-2.2 [facility] Comment on above: Performed By: #### L 506.0200, L503.0106, L501.3620, L500.4050, L503.6005, L501.9520, L501.5200, M200.1000 ####[facility] [address] [place], [address] T4 Free Directon 08-11-2024 T4 FREE DIRECT 0.50 ng/dL Low 0.76-1.46 [facility] Comment on above: Performed By: #### L 501.18843, L506.0400 ####[facility] [address] [place], [address] Thyroid Stim Hormone (TSH)on 08-11-2024 TSH 10.600 uIU/mL High 0.300-4.200 [facility] Comment on above: Performed By: #### L 506.0200, L503.0106, L501.3620, L500.4050, L503.6005, L501.9520, L501.5200, M200.1000 ####[facility] [address] [place] [id number] Urine Drug Screen (VISTA)on 08-11-2024 AMPHETAMINES Negative Normal <1000 ng/mL [facility] Comment on above: Performed By: #### L 505.5000 ####[facility] [address] [place] [address] BARBITIURATES Negative Normal < 200 ng/mL [facility] Comment on above: Performed By: #### L 505.5000 ####[facility] [address] [place] [address] BENZODIAZIPINE Negative Normal < 200 ng/mL [facility] Comment on above: Performed By: #### L 505.5000 ####[facility] [address] [place] [address] BUP Ur Drug Scr Positive Normal < 200 ng/mL [facility] Comment on above: Result Comment: If c onfirmation testing is needed, a separate order will berequired to send out testing to the reference laboratory. Performed By: #### L 505.5000 ####[facility] [address] [place] [address] COCAINE Negative Normal < 300 ng/mL [facility] Comment on above: Performed By: #### L 505.5000 ####[facility] [address] [place] [address] Fentanyl Negative Normal [facility] Comment on above: Performed By: #### L 505.5000 ####[facility] [address] [place] [address] METHADONE Negative Normal < 300 ng/mL [facility] Comment on above: Performed By: #### L 505.5000 ####[facility] [address] [place], [address] OPIATES Negative Normal < 300 ng/mL [facility] Comment on above: Performed By: #### L 505.5000 ####[facility] [address] [place], [address] OXYCODONE Negative Normal < 100 ng/mL [facility] Comment on above: Performed By: #### L 505.5000 ####[facility] [address] [place], [address] PCP Negative Normal < 25 ng/mL [facility] Comment on above: Performed By: #### L 505.5000 ####[facility] [address] [place], [address] THC Positive Normal < 50 ng/mL [facility] Comment on above: Result Comment: If c onfirmation testing is needed, a separate order will berequired to send out testing to the reference laboratory. Performed By: #### L 505.5000 ####[facility] [address] [place], [address] Vitamin B12on 08-11-2024 Cobalamin (Vitamin B12) [Mass/Vol] 1379 pg/mL High 180-914 [facility] Comment on above: Performed By: #### L 506.0200, L503.0106, L501.3620, L500.4050, L503.6005, L501.9520, L501.5200, M200.1000 ####[facility] [address] [place], [address] 12 Lead EKGon 08-10-2024 12 Lead EKG Normal [facility] Absolute neutrophil countOrd ered By: Jose Alfredo Valderrama on 08-10-2024 Neutrophils (Bld) [#/Vol] 20.6 10*3/uL High 2.0-7.7 [facility] Anion gap in Serum or Plasma Ordered By: Jose Alfredo Valderrama on 08-10-2024 Anion gap [Moles/Vol] 53 mmol/L High 5-15 [facility] Arterial patency Wrist arter y --pre arterial punctureOrdered By: Jose Alfredo Valderrama on 08-10-2024 Antonio Test N/A [facility] BUN/creatinine ratioOrdered By: Jose Alfredo Valderrama on 08-10-2024 Urea nitrogen/Creatinine [Mass ratio] 13.4 mg/mg 10- [facility] Base excess Calc (BldV) [Mol es/Vol]Ordered By: Jose Alfredo Valderrama on 08-10-2024 Blood Gas Base Excess -24 mmol/L Low -2-2 [facility] Basic Metabolic Profile (BMP )on 08-10-2024 CO2 [Moles/Vol] 6.3 mmol/L Invalid Interpretation Code 21.0-32.0 [facility] Comment on above: Result Comment: Crit ical Result(s) Called MMARTIN at: 1954 by:BWORKMAN??Results read back by same.Critical Result(s) Called MMARTIN at: 1954 by:BWORKMAN??Results read back by same.Critical Result(s) Called at: by:??Results read back bysame.Critical Result(s) Called MMARTIN at: 1954 by:BWORKMAN??Results read back by same.Critical Result(s) Called at: by:??Results read back bysame.Critical Result(s) Called at: by:??Results read back bysame. AMENDED REPORT 08/10/242029 CO2 previously reported as: 6.3 *L mmol/LCritical Result(s) Called MMARTIN at: 1954 by:BWORKMAN??Results read back by same.Critical Result(s) Called MMARTIN at: 1954 by:BWORKMAN??Results read back by same.Critical Result(s) Called at: by:??Results read back bysame. Performed By: #### L 500.2500, L300.3900, L501.6901, L300.4310, L100.0100 ####[facility] [address] [place], [address] Glucose [Mass/Vol] 1336 mg/dL Invalid Interpretation Code 70-99 [facility] Comment on above: Result Comment: Crit ical Result(s) Called MMARTIN at: 1954 by:BWORKMAN??Results read back by same.Critical Result(s) Called MMARTIN at: 1954 by:BWORKMAN??Results read back by same.Critical Result(s) Called at: by:??Results read back bysame.Critical Result(s) Called MMARTIN at: 1954 by:BWORKMAN??Results read back by same.Critical Result(s) Called at: by:??Results read back bysame.Critical Result(s) Called at: by:??Results read back bysame. AMENDED REPORT 08/10/24 2030 GLU previously reported as: 1336 *H mg/dLCritical Result(s) Called MMARTIN at: 1954 by:BWORKMAN??Results read back by same.Critical Result(s) Called MMARTIN at: 1954 by:BWORKMAN??Results read back by same.Critical Result(s) Called at: by:??Results read back bysame. Performed By: #### L 500.2500, L300.3900, L501.6901, L300.4310, L100.0100 ####[facility] [address] [place], [address] BUN Normal 4-19 [facility] Comment on above: Result Comment: DUPL ICATE Performed By: #### L 500.2500 ####[facility] [address] [place], [address] BUN/CRE Normal 10-20 [facility] Comment on above: Result Comment: DUPL ICATE Performed By: #### L 500.2500 ####[facility] [address] [place], [address] Calcium Normal 7.6-11.0 [facility] Comment on above: Result Comment: DUPL ICATE Performed By: #### L 500.2500 ####[facility] [address] [place], [address] CL Normal 98-108 [facility] Comment on above: Result Comment: DUPL ICATE Performed By: #### L 500.2500 ####[facility] [address] [place], [address] CO2 Normal 21.0-32.0 [facility] Comment on above: Result Comment: DUPL ICATE Performed By: #### L 500.2500 ####[facility] [address] [place], [address] CREAT,SERUM Normal 0.70-1.20 [facility] Comment on above: Result Comment: DUPL ICATE Performed By: #### L 500.2500 ####[facility] [address] [place], [address] eGFR Normal >60 [facility] Comment on above: Result Comment: DUPL ICATE Performed By: #### L 500.2500 ####[facility] [address] [place], [address] GAP Normal 5-15 [facility] Comment on above: Result Comment: DUPL ICATE Performed By: #### L 500.2500 ####[facility] [address] [place], [address] GLU Normal 70-99 [facility] Comment on above: Result Comment: DUPL ICATE Performed By: #### L 500.2500 ####[facility] [address] [place], [address] Potassium Normal 3.3-5.1 [facility] Comment on above: Result Comment: DUPL ICATE Performed By: #### L 500.2500 ####[facility] [address] [place], [address] Basic Metabolic Profile (BMP) Normal 133-145 [facility] Comment on above: Result Comment: DUPL ICATE Performed By: #### L 500.2500 ####[facility] [address] [place], [address] Basophil percentageOrdered B y: Jose Alfredo Valderrama on 08-10-2024 Basophils/100 WBC (Bld) 0.4 % 0-1 [facility] Bedside Glucoseon 08-10-2024 FINGERSTICK GLU > 500 Invalid Interpretation Code 74-106 [facility] Comment on above: Result Comment: Dr Olu de jesus FollowedMANAGEMENT OF PATIENT CARE PER NURSING PROTOCOL Performed By: #### L 501.080 ####[facility] [address] [place], [address] FINGERSTICK GLU > 500 Invalid Interpretation Code 74-106 [facility] Comment on above: Result Comment: Dr Olu de jesus FollowedMANAGEMENT OF PATIENT CARE PER NURSING PROTOCOL Performed By: #### L 501.080 ####[facility] [address] [place], [address] Beta hydroxybutyrate [Mass/V ol]Ordered By: Jose Alfredo Valderrama on 08-10-2024 Beta-Hydroxybutyric Acid mmol/L > 16.0 mmol/L 0.0-0.3 [facility] Beta-Hydroxbytyrateon 2024 BETA-HYDROXYBUT > 16.0 Normal 0.0-0.3 [facility] Comment on above: Performed By: #### L 500.2500, L300.3900, L501.6901, L300.4310, L100.0100 ####[facility] [address] [place], [address] Bilirubin Test strip Ql (U)O rdered By: Jose Alfredo Valderrama on 08-10-2024 Bilirubin Ql (U) Negative Negative [facility] Blood Gases by CPSon 025 ANTONIO TEST N/A Normal [facility] Comment on above: Performed By: #### L 9000.0800 ####[facility] [address] [place], [address] Base excess Calc (Bld) [Moles/Vol] -24 mmol/L Low -2 to +2 [facility] Comment on above: Performed By: #### L 9000.0800 ####[facility] [address] [place], [address] Blood Gas Type ART [facility] Comment on above: Performed By: #### L 9000.0800 ####[facility] [address] [place], [address] CO2 [Moles/Vol] 9 mmol/L [facility] Comment on above: Performed By: #### L 9000.0800 ####[facility] [address] [place], [address] FI02 100.0 [facility] Comment on above: Performed By: #### L 9000.0800 ####[facility] [address] [place], [address] HCO3 (Bld) [Moles/Vol] 7.6 mmol/L Low 22-26 [facility] Comment on above: Performed By: #### L 9000.0800 ####[facility] [address] [place], [address] Mode Not entered [facility] Comment on above: Performed By: #### L 9000.0800 ####[facility] [address] [place], [address] O2 Delivery Dev Bagging [facility] Comment on above: Performed By: #### L 9000.0800 ####[facility] [address] [place], [address] pCO2 33.9 mmHg Low 35-45 [facility] Comment on above: Performed By: #### L 9000.0800 ####[facility] [address] [place], [address] pH (Bld) 6.96 [pH] Invalid Interpretation Code 7.35-7.45 [facility] Comment on above: Performed By: #### L 9000.0800 ####[facility] [address] [place], [address] PO2 379 mmHG Invalid Interpretation Code 75-100 [facility] Comment on above: Performed By: #### L 9000.0800 ####[facility] [address] [place], [address] Read Back By Yes Normal [facility] Comment on above: Performed By: #### L 9000.0800 ####[facility] [address] [place], [address] Valderrama [facility] Comment on above: Performed By: #### L 9000.0800 ####[facility] [address] [place], [address] SITE L Radial Normal [facility] Comment on above: Performed By: #### L 9000.0800 ####[facility] [address] [place], [address] SO2 100 High 95-99 [facility] Comment on above: Performed By: #### L 9000.0800 ####[facility] [address] [place], [address] Time Given 18:47:46 [facility] Comment on above: Performed By: #### L 9000.0800 ####[facility] [address] [place], [address] Blood bicarbonate measuremen tOrdered By: Jose Alfredo Valderrama on 08-10-2024 Blood Gas Bicarbonate Actual 7.6 mmol/L Low - [facility] CBC W/Diff, Automatedon 04-1 SMEAR COMMENT SCANNED Normal [facility] Comment on above: Result Comment: NEUT ROPHILIA NOTED Performed By: #### L 500.2500, L300.3900, L501.6901, L300.4310, L100.0100 ####[facility] [address] [place], [address] CTA Chst, Abd, Pel W and/or WOon 08-10-2024 CTA Chst, Abd, Pel W and/or WO Normal [facility] CXR for Line Placementon CXR for Line Placement Normal [facility] Carbon dioxide, total [Moles /volume] in Central venous bloodOrdered By: Jose Alfredo Valderrama on 08-10-2024 CO2 [Moles/Vol] 6.3 mmol/L Low 21.0-32.0 [facility] Comment on above: Critical Result(s) C alled MMARTIN at: 1953 by: BWORKMAN Results read back by same. Critical Result(s) Called MMARTIN at: 1954 by: BWORKMAN Results read back by same.Critical Result(s) Called at: by: Results read back by same. Critical Result(s) Called MMARTIN at: 1954 by: BWORKMAN Results read back by same.Critical Result(s) Called at: by: Results read back by same.Critical Result(s) Called at: by: Results read back by same.Previous reported result: 6.3 mmol/LEdited by: AUTOINS on 08/10/24:2019 AMENDED REPORT 08/10/24 2019 CO2 previously reported as: 6.3 *L mmol/L Critical Result(s) Called MMARTIN at: 1953 by: BWORKMAN Results read back by same.Previous reported result: 6.3 mmol/LEdited by: AUTOINS on 08/10/24:2029 AMENDED REPORT 08/10/242029 CO2 previously reported as: 6.3 *L mmol/L Critical Result(s) Called MMARTIN at: 1953 by: BWORKMAN Results read back by same. Critical Result(s) Called MMARTIN at: 1955 by: BWORKMAN Results read back by same.Critical Result(s) Called at: by: Results read back by same. Chest 1 View (Portable)on Chest 1 View (Portable) Normal [facility] Chest 1 View (Portable) Normal [facility] Chloride assayOrdered By: Mo Valderrama on 08-10-2024 Chloride [Moles/Vol] 76 mmol/L Low 98-108 [facility] Determination of fraction of inspired oxygenOrdered By: Jose Alfredo Valderrama on 08-10-2024 Blood Gas Oxygen Percent 100.0 [facility] Emergency Department Summary on 08-10-2024 Emergency Department Summary Normal [facility] Eosinophil percentageOrdered By: Jose Alfredo Valderrama on 08-10-2024 Eosinophils/100 WBC (Bld) 0.0 % 0-5 [facility] Epithelial cells.renal LM.HP F (Urine sed) [#/Area]Ordered By: Jose Alfredo Valderrama on 08-10-2024 Urine Renal Epithelial Cells 0-5 SEEN /hpf 0-5 [facility] Epithelial cells.squamous LM Ql (Urine sed)Ordered By: Jose Alfredo Valderrama on 08-10-2024 Epithelial cells.squamous LM.HPF (Urine sed) [#/Area] 0 /[HPF] 0-5 [facility] Erythrocyte distribution wid th (RBC) [Ratio]Ordered By: Jose Alfredo Valderrama on 08-10-2024 Erythrocyte distribution width (RBC) [Entitic vol] 53.3 fL High 35.1-43.9 [facility] Erythrocyte distribution wid th ratioOrdered By: Jose Alfredo Valderrama on 08-10-2024 Erythrocyte distribution width (RBC) [Ratio] 13.2 % 11.6-14.6 [facility] Estimation of creatinine eric aranceOrdered By: Jose Alfredo Valderrama on 08-10-2024 Estimated Creatinine Clearance Calc 25.20 ml/min Low 50-250 [facility] GFR/1.73 sq M.predicted meet g non-blacks MDRD (S/P/Bld) [Vol rate/Area]Ordered By: Jose Alfredo Valderrama on 08-10-2024 Estimated GFR (MDRD) Non-Af Amer 20 Low >60 [facility] Comment on above: mL/min/1.73m2 CKD-EP I Creatinine Equation (2020) Glucoseon 08-10-2024 Glucose [Mass/Vol] 1039 mg/dL Invalid Interpretation Code [facility] Comment on above: Result Comment: Crit ical Result(s) Called at:2341 by:??LAKSHMI SANCHEZ TO RNMREMI. Results read back by same. Performed By: #### L 501.0100 ####[facility] [address] [place], [place], [address] Glucose [Mass/Vol] 1130 mg/dL Invalid Interpretation Code [facility] Comment on above: Result Comment: Crit ical Result(s) Called MMARTIN at: 2208 by:TASH??Results read back by same. Performed By: #### L 501.0100 ####[facility] [address] [place], [place], [address] Glucose Ql (U)Ordered By: Mo Valderrama on 08-10-2024 Glucose (U) [Mass/Vol] 1000 mg/dL High Normal [facility] deOrdered By: Jose Alfredo Valderrama on 08-10-2024 Bedside Glucose (Misc Panel) > 500 mg/dL High 74-106 [facility] Comment on above: Dr Klein FollowedMA NAGEMENT OF PATIENT CARE PER NURSING PROTOCOL H AND P Exam - Hospitaliston 08-10-2024 H&P Exam - Hospitalist Normal [facility] Hematocrit Auto (Bld) [Volum e fraction]Ordered By: Jose Alfredo Valderrama on 08-10-2024 Hematocrit (Bld) [Volume fraction] 37.7 % Low 40-54 [facility] Hemoglobin measurementOrdere d By: Jose Alfredo Valderrama on 08-10-2024 Hemoglobin (Bld) [Mass/Vol] 10.6 g/dL Low 13.0-16.5 [facility] Immature granulocytes/100 WB C Auto (Bld)Ordered By: Jose Alfredo Valderrama on 08-10-2024 Immature granulocytes/100 WBC (Bld) 3.700 % High 0.0-0.9 [facility] Comment on above: IG% - Immature Granu locytes (promyelocytes, myelocytes and metamyelocytes) > 1% indicates that a LEFT SHIFT is Present. International normalized rat io (INR) calculationOrdered By: Jose Alfredo Valderrama on 08-10-2024 INR Coag (Bld) [Relative time] 1.5 {INR} [facility] Ketones Test strip Ql (U)Ord ered By: Jose Alfredo Valderrama on 08-10-2024 Ketones Ql (U) 150 mg/dl Abnormal Negative [facility] Comment on above: CRITICAL VALUE *HCRI TICAL VALUE CALLED TO Arlene GARCIA08/10/242051 Maggie Chaves.RESULTS READ BACK BY SAME. L499.0042on 08-10-2024 Trop T High Sen 42 ng/L High <=22 [facility] Comment on above: Performed By: #### L 499.0042 ####[facility] [address] [place], [address] L499.0043on 08-10-2024 Trop T High Sen 56 ng/L Invalid Interpretation Code <=22 [facility] Comment on above: Result Comment: Crit ical Result(s) Called at: 2323by:LAKSHMI SANCHEZ TO RNMWITUNKI.??Results read back by same. Performed By: #### L 499.0043 ####[facility] [address] [place], [address] L501.4021on 08-10-2024 Trop T High Sen 38 ng/L High <=22 [facility] Comment on above: Performed By: #### L 501.4021 ####[facility] [address] [place], [address] Lymphocytes Auto (Unsp spec) [#/Vol]Ordered By: Jose Alfredo Valderrama on 08-10-2024 Lymphocytes (Bld) [#/Vol] 1.99 10*3/uL 0.83-4.51 [facility] Lymphocytes/100 WBC Auto (Un sp spec)Ordered By: Jose Alfredo Valderrama on 08-10-2024 Lymphocytes/100 WBC (Bld) 8.1 % Low 19-41 [facility] MCV (mean corpuscular volume ) determinationOrdered By: Jose Alfredo Valderrama on 08-10-2024 MCV (RBC) [Entitic vol] 110.6 fL High 80-94 [facility] Manual differential comment James (Bld) [Interp]Ordered By: Jose Alfredo Valderrama on 08-10-2024 Differential Comment SCANNED [facility] Comment on above: NEUTROPHILIA NOTED Mean corpuscular hemoglobin (MCH) determinationOrdered By: Jose Alfredo Valderrama on 08-10-2024 MCH (RBC) [Entitic mass] 31.1 pg 27.0-32.0 [facility] Mean corpuscular hemoglobin concentration (MCHC) determinationOrdered By: Jose Alfredo Valderrama on 08-10-2024 MCHC (RBC) [Mass/Vol] 28.1 g/dL Low 32-36 [facility] Mean platelet volume determi nationOrdered By: Jose Alfredo Valderrama on 08-10-2024 Platelet mean volume (Bld) [Entitic vol] 12.8 fL High 6.2-12.0 [facility] Microscopic analysis of urin e for red blood cells (RBC)Ordered By: Jose Alfredo Valderrama on 08-10-2024 Urine RBC 0 SEEN /hpf 0-5 [facility] Monocyte percentageOrdered B y: Jose Alfredo Valderrama on 08-10-2024 Monocytes/100 WBC (Bld) 4.4 % 0-10 [facility] Mucus LM Ql (Urine sed)Order ed By: Jose Alfredo Valderrama on 08-10-2024 Mucus Ql (Urine sed) 0 SEEN /hpf [facility] Neutrophil percentageOrdered By: Jose Alfredo Valderrama on 08-10-2024 Neutrophils/100 WBC (Bld) 83.4 % High 47-70 [facility] Nitrite Test strip Ql (U)Ord ered By: Jose Alfredo Valderrama on 08-10-2024 Nitrite Ql (U) Negative Negative [facility] No Panel InformationOrdered By: Jose Alfredo Valderrama on 08-10-2024 Bld Gas Crit Called To/Read Back By Yes [facility] Blood Gas Notified Time 18:47:46 [facility] Blood Gas Notified Whom Dr Valderrama [facility] Blood Gas Sample Site L Radial [facility] Blood Gas Specimen Type ART [facility] Blood Gas Vent Mode Not entered [facility] Oxygen Delivery Device Bagging [facility] Nucleated red blood cell per centageOrdered By: Jose Alfredo Valderrama on 08-10-2024 Nucleated RBC/100 WBC (Bld) [Ratio] 0 % 0-5 [facility] Oxygen saturation measuremen tOrdered By: Jose Alfredo Valderrama on 08-10-2024 Blood Gas Oxygen Saturation 100 % High 95-99 [facility] Partial Thromboplast Timeon 08-10-2024 aPTT Coag (Bld) [Time] 32.9 s Normal 24.1-36.2 [facility] Comment on above: Performed By: #### L 500.2500, L300.3900, L501.6901, L300.4310, L100.0100 ####[facility] [address] [place], [place], [address] Partial pressure of carbon d ioxide measurementOrdered By: Jose Alfredo Valderrama on 08-10-2024 Arterial Blood Partial Pressure CO2 33.9 mmHg Low 35-45 [facility] Partial pressure of oxygen m easurementOrdered By: Jose Alfredo Valderrama on 08-10-2024 Arterial Blood Partial Pressure O2 379 mmHG High 75-100 [facility] Platelet countOrdered By: Mo Valderrama on 08-10-2024 Platelets (Bld) [#/Vol] 269 10*3/uL 150-450 [facility] Potassium (Unsp spec) [Mass/ Vol]Ordered By: Jose Alfredo Valderrama on 08-10-2024 Potassium [Moles/Vol] 5.8 mmol/L High 3.3-5.1 [facility] Comment on above: Hemolysis present, R esults could be affected. Protein Test strip Ql (U)Ord ered By: Jose Alfredo Valderrama on 08-10-2024 Protein Ql (U) 15 mg/dl High Negative [facility] Prothrombin Time w/INRon INR Coag (PPP) [Relative time] 1.5 {INR} Normal [facility] Comment on above: Performed By: #### L 500.2500, L300.3900, L501.6901, L300.4310, L100.0100 ####[facility] [address] [place], [address] PT Coag (PPP) [Time] 18.8 s High 11.7-14.9 [facility] Comment on above: Performed By: #### L 500.2500, L300.3900, L501.6901, L300.4310, L100.0100 ####[facility] [address] [place], [address] Prothrombin timeOrdered By: Jose Alfredo Valderrama on 08-10-2024 PT Coag (PPP) [Time] 18.8 s High 11.7-14.9 [facility] RBC Auto (Bld) [#/Vol]Ordere d By: Jose Alfredo Valderrama on 08-10-2024 RBC (Bld) [#/Vol] 3.41 10*6/uL Low 4.6-6.2 [facility] Serum creatinine measurement (mass/volume)Ordered By: Jose Alfredo Valderrama on 08-10-2024 Creatinine [Mass/Vol] 3.25 mg/dL High 0.70-1.20 [facility] Serum glucose measurement (m ass/volume)Ordered By: Jose Alfredo Valderrama on 08-10-2024 Glucose [Mass/Vol] 1130 mg/dL High 70-99 [facility] Comment on above: Critical Result(s) C denised MMARTIN at: 2208 by: TASH Results read back by same. Serum or plasma calcium jessica urement (mass/volume)Ordered By: Jose Alfredo Valderrama on 08-10-2024 Calcium [Mass/Vol] 7.4 mg/dL Low 7.6-11.0 [facility] Serum or plasma urea nitroge n measurement (mass/volume)Ordered By: Jose Alfredo Valderrama on 08-10-2024 Urea nitrogen [Mass/Vol] 44 mg/dL High 4-19 [facility] Sodium levelOrdered By: Jose Alfredo Valderrama on 08-10-2024 Sodium [Moles/Vol] 135 mmol/L 133-145 [facility] Total carbon dioxide measure mentOrdered By: Jose Alfredo Valderrama on 08-10-2024 Blood Gas Total CO2 9 mmol/L [facility] Troponin T.cardiac High sens itivity method [Mass/Vol]Ordered By: Jose Alfredo Valderrama on 08-10-2024 Troponin T High Sensitivity 2 Hour 42 ng/L High <22 [facility] Troponin T High Sensitivity 38 ng/L High <22 [facility] Type AND Screenon 08-10-2024 Ab SCREEN GEL Negative Normal [facility] Comment on above: Order Comment: Has p t arrived? YHGI Performed By: #### B TS ####[facility] [address] [place], [address] ABO and Rh group Nom (Bld) Blood group O Rh(D) negative Normal [facility] Comment on above: Order Comment: Has p t arrived? YHGI Performed By: #### B TS ####[facility] [address] [place], [address] Urinalysis, Completeon 08-10 EPI,RENAL 0-5 SEEN Normal 0-5 [facility] Comment on above: Order Comment: RICHIE TER SPECIMEN Performed By: #### L 400.0001 ####[facility] [address] [place], [address] WBC 0-5 SEEN Normal 0-5 [facility] Comment on above: Order Comment: RICHIE TER SPECIMEN Performed By: #### L 400.0001 ####[facility] [address] [place], [address] BACTERIA 0 SEEN Normal None Seen [facility] Comment on above: Order Comment: RICHIE TER SPECIMEN Performed By: #### L 400.0001 ####[facility] [address] [place], [address] EPI,SQUAMOUS 0 SEEN Normal 0-5 [facility] Comment on above: Order Comment: RICHIE TER SPECIMEN Performed By: #### L 400.0001 ####[facility] [address] [place], [address] Mucus Ql (Urine sed) 0 SEEN Normal [facility] Comment on above: Order Comment: RICHIE TER SPECIMEN Performed By: #### L 400.0001 ####[facility] [address] [place], [address] RBC 0 SEEN Normal 0-5 [facility] Comment on above: Order Comment: RICHIE TER SPECIMEN Performed By: #### L 400.0001 ####[facility] [address] [place], [place], [address] Urine blood detectionOrdered By: Jose Alfredo Valderrama on 08-10-2024 Urine Occult Blood Negative Negative [facility] Urine clarityOrdered By: Yudy Valderrama on 08-10-2024 Clarity (U) Clear Clear [facility] Urine color determinationOrd ered By: Jose Alfredo Valderrama on 08-10-2024 Color (U) Straw Yellow [facility] Urine leukocyte esterase det ection by dipstickOrdered By: Jose Alfredo Valderrama on 08-10-2024 Leukocyte esterase Test strip Ql (U) Negative Negative [facility] Urine pHOrdered By: Jose Alfredo ervin on 08-10-2024 pH (U) 6.0 [pH] 5.0 - 8.0 [facility] Urine sediment bacteria coun t by microscopy (number/high power field)Ordered By: Jose Alfredo Valderrama on 08-10-2024 Bacteria LM.HPF (Urine sed) [#/Area] 0 /[HPF] None Seen [facility] Urine specific gravity measu rementOrdered By: Jose Alfredo Valderrama on 08-10-2024 Specific gravity (U) [Rel density] 1.015 1.002-1.030 [facility] Urobilinogen Ql (U)Ordered B y: Jose Alfredo Valderrama on 08-10-2024 Urine Urobilinogen Normal mg/dl Normal [facility] White blood cell (WBC) count Ordered By: Jose Alfredo Valderrama on 08-10-2024 WBC (Bld) [#/Vol] 24.7 10*3/uL High 4.4-11.0 [facility] White blood cell countOrdere d By: Jose Alfredo Valderrama on 08-10-2024 Urine WBC 0-5 SEEN /hpf 0-5 [facility] aPTT Coag (PPP) [Time]Ordere d By: Jose Alfredo Valderrama on 08-10-2024 aPTT Coag (Bld) [Time] 32.9 s 24.1-36.2 [facility] pH (Unsp spec)Ordered By: Mo Valderrama on 08-10-2024 Blood Gas pH 6.96 Low 7.35-7.45 [facility] 36on 08-05-2024 36 Notes script faxed today [facility] HEMOGLOBIN A1Con HbA1c (Bld) [Mass fraction] 10.6 % Abnormal - 5.7 % [facility] HbA1c (Bld) [Mass fraction]o n 08-05-2024 Interpretation and review of laboratory results Abnormal [facility] Office Visiton 08-05-2024 Follow-up visit [id number] Ganesh Bush 1955 M Date Provider Department Center 08/05/2024 ALBINA VERAS [facility] END None Family History Problem Relation Age of Onset High Blood Pressure Mother Cancer Father Family Status - Relation Status Age at Mother Alive Father Daughter Alive Daughter Alive Level of Service:76889 DE OFFICE/OUTPATIENT ESTABLISHED MOD MDM 30 MIN Reason for Visit and Comments: Follow-up [936542] Diabetes [34] Normal [facility] Progress Noteon 08-05-2024 Progress Note [facility] END[facility]CRINOLOGY [facility] [address] [facility] [address] [facility] [address] Dept: [phone] Dept Loc: [phone] Visit type: Established patient Reason for Visit: Follow-up and Diabetes Assessment 1. Type 1 diabetes mellitus with hyperglycemia (HCC) - AMB POC HEMOGLOBIN A1C - insulin glargine (Lantus SoloStar) 100 UNIT/ML pen; Inject 18 Units under the skin Nightly., Starting Sat08/05/2024, Until Sat10/08/2025, Normal - insulin lispro (HumaLOG KWIKPEN) 100 UNIT/ML pen injection; Inject 16 Units under the skin 3 times daily (with meals). + sliding scale . TDD 63 Units /day, Starting 08/05/2024, Until 08/15/2025, Normal 2. Mixed diabetic hyperlipidemia associated with type 2 diabetes mellitus (HCC) 3. Hypertension associated with type 2 diabetes mellitus (HCC) 4. Acquired hypothyroidism Plan Type 2 Diabetes mellitus with hyperglycemia and mcc insulin use: Lab Results Component Value Date HGBA1C 10.6 (A) 08/05/2024 Diabetes is not stable Goal A1C = 6.5-7.0. Glucose goal range: 100-150 Insulin is necessary for ongoing mgmt. Based on patient discussion and available data, patient will make the following changes to their antihyperglycemic regimen: Continue Lantus 14 units once daily Continue Humalog to 16 units with meals + SS 1 Unit for every 50>150 Continue humalog low dose sliding scale Encourage patient to utilize sliding scale Katharina 3+ sensor and reader scripts faxed to [facility] Recommend FSBS to occur 4 times daily, be recorded, and message sent to office in 2 weeks for review. If CGM is worn, send message to the office with each sensor change for download. Diabetes [employer] screen Micro albu. Patient has not been using sliding scale or using infrequently. Microalbumin - up to date 01/2023 Eye exam - external referral placed Feet exam - Up to date - Most Recent A1C is 9.4. Previous A1c 9.2% - Goal A1C <7% - Current regimen: Humalog 14 units TID before meals with SS of 1 unit for every 50 greater than 150. Lantus 16 units nightly - Current sugars: are significant for postmeal hyperglycemia and intermittent hypoglycemia - Recommend : - Hypoglycemia management discussed - advised to check sugars ac and hs using katharina cgm - submit sugar logs in 1 month - well controlled blood pressure on low dose Lisinopril Mixed diabetic hyperlipidemia associated with type 2 diabetes mellitus I have reviewed labs from 08/04/2024, total cholesterol 129, triglycerides 266, LDL 69, HDL 25, Goal LDL level is less than 100 The ASCVD Risk score (Sana DK, et al., 2019) failed to calculate for the following reasons: The valid total cholesterol range is 130 to 320 mg/dL Continue lovaza, Crestor Encouraged low fat low cholesterol diet Encouraged to increase exercise until at goal of minimum 150 minutes per week Hypertension associated with type 2 diabetes mellitus (HCC) BP at today's visit-122/68 Continue lisinopril, Acquired hypothyroidism Reviewed most recent thyroid lab from 05/27/2023, TSH 47.73, Free T4 0.7 Goal TSH is normal range. Continue levothyrxine Labs were drawn this am - will await results and then make changes as needed Results will be reported to pt and will determine next steps in titration if necessary. Pt counseled about these recommendations. Pt voiced understanding. These recommendations made based on interpretation of available data (which may include FSBS, A1C, venous sampling, or data from pt recall). I reviewed: laboratory results reviewed: Yes radiographic reports reviewed: No I reviewed the radiographic images personally at the time of today's visit: No Pt was advised of the results. Records from outside facility/PCP office to be requested: Yes Scripts sent to pharmacy of pt choice: Yes No follow-ups on file. Subjective Diabetes Associated symptoms include fatigue. Pertinent negatives for diabetes include no chest pain, no polydipsia and no polyuria. PCP is Andrea Lr MD Initial [facility] endocrinology office visit: Before 12/13/2014 Last office visit: 05/27/2023 No significant Interval history Type of DM: 1 Onset :~2013 Complications: Cardiovascular -- No Statin Use -- Yes Retinopathy -- No Last KEVIN/Retina Eval: missed follow up at [facility] . Longer distance from home. Would like to be referred to ophthalmology in [place] Nephropathy -- No RONNIE/ARB Use -- Yes Polyneuropathy -- Yes Bilateral great toes Foot Exam: 11/13/2022 Obesity -- No Other -- No Pt complaints include: He is sick, has nasal drainage, cough, and feeling bad all over Was in the hospital for DKA last year, and vomiting Sensors are from [employer] and he needs to see us so thatt he can continue to get the devices Since last office visit denies new health problems, admits to hospitalizations, and admits to surgeries. Pt feels their blood sugars are unchanged since NANCI. Pt (more content not included)... Normal [facility] 36on 07-30-2024 36 Name of caller: Ganesh Contact phone number: [phone] Relationship to Patient: patient Provider: SANDRA Servin Practice: Endo Chief Complaint/Reason for Call: Patient is requesting a urine test for his appointment. He would like to complete it in the morning tomorrow. Please advise. Best time of day caller can be reached: Any Patient advised that office/PCP has 24-48 business hours to return their call: Yes [facility] Progress Noteon 07-30-2024 Progress Note Left message for patient that Microalbumin and Lipid panel ordered. Message was not clear to specify what type of urine test the patient was requesting. [facility] 36on 07-28-2024 36 That is the most rec ent visit (September 2023) , pt will be seen again on 08/05/24 by harvinder. Please advise and send notes to [facility] after the patients visit with harvinder in a week. [facility] 36 Message released to [employer] as written. [facility] stated they received requested clinical notes, but the date was for 10/01/23. Called to inquire if there was a sooner visit. [facility] was advised that was the most recent visit. [facility]'s further questions if applicable: No further questions. Were all questions from office addressed or relayed to the patient from encounter: N/A [facility] 36on 04-16-2024 36 See pended script [facility] 36 Called pt again and scheduled for 08/05/2024 with Albina Servin. Pt also placed on wait list for sooner appointment. [facility] 36on 04-14-2024 36 Called pt and left a message requesting that he call the office to schedule an appointment. Normal [facility] BASIC METABOLIC PANELon 10-2 Anion gap [Moles/Vol] 9 mmol/L Normal 3-13 [facility] Comment on above: Performed By: #### L AB15, FET191, CEC178 ####Trumpet Player: ENRIQUE JEAN BAPTISTE ([phone])[facility] (SBHLAB)[address] [place] [address] Calcium [Mass/Vol] 8.6 mg/dL Normal 8.4-10.4 [facility] Comment on above: Performed By: #### L AB15, PYB446, GCJ454 ####Trumpet Player: ENRIQUE JEAN BAPTISTE ([phone])[facility] (SBHLAB)[address] Chloride [Moles/Vol] 103 mmol/L Normal 98-107 [facility] Comment on above: Performed By: #### L AB15, ERN973, RPH349 ####Trumpet Player: ENRIQUE JEAN BAPTISTE ([phone])[facility] (SBHLAB)[address] CO2 [Moles/Vol] 21 mmol/L Low 22-30 [facility] Comment on above: Performed By: #### L AB15, DKP212, YGS316 ####Trumpet Player: ENRIQUE JEAN BAPTISTE ([phone])[facility] [place] (SBHLAB)[address] Creatinine [Mass/Vol] 0.54 mg/dL Low 0.66-1.25 [facility] Comment on above: Performed By: #### L AB15, FOU958, GJH862 ####Trumpet Player: ENRIQUE JEAN BAPTISTE ([phone])[facility] (SBHLAB)[address] GLOMERULAR FILTRATION RATE ML/MIN/1.73 SQ M.PREDICTED >90.0 Normal >60.0 [facility] Comment on above: Result Comment: Calc ulation based on the Chronic Kidney Disease Epidemiology Collaboration (CKD-EPI) equation refit without adjustment for race Performed By: #### L AB15, JZP668, ASG747 ####Trumpet Player: ENRIQUE JEAN BAPTISTE ([phone])[facility] (SBHLAB)[address] Glucose [Mass/Vol] 65 mg/dL Low 70-100 [facility] Comment on above: Performed By: #### L AB15, EXI328, EMD989 ####Trumpet Player: ENRIQUE JEAN BAPTISTE ([id number])[facility] (SBHLAB)[address] Potassium [Moles/Vol] 3.0 mmol/L Low 3.5-5.1 [facility] Comment on above: Performed By: #### L AB15, BZX917, LMY665 ####Trumpet Player: ENRIQUE JEAN BAPTISTE ([phone])[facility] [place] (SBHLAB)[address] Sodium [Moles/Vol] 133 mmol/L Low 135-145 [facility] Comment on above: Performed By: #### L AB15, RBP370, JZA893 ####Trumpet Player: ENRIQUE JEAN BAPTISTE ([phone])[facility] (SBHLAB)[address] Urea nitrogen [Mass/Vol] 12 mg/dL Normal 9-20 [facility] Comment on above: Performed By: #### L AB15, JMJ061, AIR311 ####Trumpet Player: ENRIQUE JEAN BAPTISTE ([phone])[facility] (SB[facility])[address] Basic metabolic 1998 panelon 02-17-2024 Anion gap [Moles/Vol] 9 mmol/L 3 - 13 mmol/L [facility] Calcium [Mass/Vol] 8.6 mg/dL 8.4 - 10. 4 mg/dL [facility] Chloride [Moles/Vol] 103 mmol/L 98 - 10 7 mmol/L [facility] CO2 [Moles/Vol] 21 mmol/L Low 22 - 30 mmol/L [facility] Creatinine [Mass/Vol] 0.54 mg/dL Low 0.66 - 1.25 mg/dL [facility] GFR/1.73 sq M.predicted (S/P/Bld) [Vol rate/Area] - PINF [facility] Comment on above: Calculation based on the Chronic Kidney Disease Epidemiology Collaboration (CKD-EPI) equation refit without adjustment for race Glucose [Mass/Vol] 65 mg/dL Low 70 - 100 mg/dL [facility] Potassium [Moles/Vol] 3 mmol/L Low 3.5 - 5.1 mmol/L [facility] Sodium [Moles/Vol] 133 mmol/L Low 135 - 145 mmol/L [facility] Urea nitrogen [Mass/Vol] 12 mg/dL 9 - 20 mg/dL [facility] CBC W Auto Differential pane l (Bld)on 02-17-2024 Basophils (Bld) [#/Vol] 0 10*3/uL 0.0 - 0.2 10*3/uL [facility] Basophils/100 WBC (Bld) 0.4 % 0.0 - 2.0 % [facility] Eosinophils (Bld) [#/Vol] 0.1 10*3/uL 0.0 - 0.5 10*3/uL [facility] Eosinophils/100 WBC (Bld) 0.7 % 0.0 - 6.0 % [facility] Erythrocyte distribution width (RBC) [Ratio] 13.1 % 11.5 - 15.0 % [facility] Hematocrit (Bld) [Volume fraction] 41.6 % 40.0 - 52.0 % [facility] Hemoglobin (Bld) [Mass/Vol] 14.2 g/dL 13.0 - 18.0 g/dL [facility] Immature granulocytes (Bld) [#/Vol] 0 10*3/uL NINF - 0.1 10*3/uL [facility] Immature granulocytes/100 WBC (Bld) 0.2 % 0.0 - 2.0 % [facility] Interpretation and review of laboratory results Abnormal [facility] Lymphocytes (Bld) [#/Vol] 2.2 10*3/uL 1.0 - 4.3 10*3/uL [facility] Lymphocytes/100 WBC (Bld) 20.2 % 15.0 - 45.0 % [facility] MCH (RBC) [Entitic mass] 30.8 pg 26.0 - 34.0 pg [facility] MCHC (RBC) [Mass/Vol] 34.1 % 30.5 - 36.0 % [facility] MCV (RBC) [Entitic vol] 90.2 fL 77.0 - 99.0 fL [facility] Monocytes (Bld) [#/Vol] 0.7 10*3/uL 0.0 - 0.9 10*3/uL [facility] Monocytes/100 WBC (Bld) 6.8 % 5.0 - 13.0 % [facility] Neutrophils (Bld) [#/Vol] 7.7 10*3/uL High 1.8 - 7.5 10*3/uL [facility] Neutrophils/100 WBC (Bld) 71.7 % 38.0 - 82.0 % [facility] Nucleated RBC/100 WBC (Bld) [Ratio] 0 % [facility] Platelet mean volume (Bld) [Entitic vol] 10.4 fL 9.0 - 12.7 fL [facility] Platelets (Bld) [#/Vol] 288 10*3/uL 140 - 440 10*3/uL [facility] RBC (Bld) [#/Vol] 4.61 10*6/uL 4.40 - 5.9 0 10*6/uL [facility] WBC (Bld) [#/Vol] 10.8 10*3/uL High 3.6 - 10.7 10*3/uL [facility] CBC WITH AUTO DIFFERENTIALon 02-17-2024 Basophils (Bld) [#/Vol] 0.0 10*3/uL Normal 0.0-0.2 [facility] Comment on above: Performed By: #### L [id number] ####Trumpet Player: ENRIQUE JEAN BAPTISTE ([phone])[facility] (SBHLAB)[address] Basophils/100 WBC (Bld) 0.4 % Normal 0.0-2.0 [facility] Comment on above: Performed By: #### L [id number] ####Trumpet Player: ENRIQUE JEAN BAPTISTE ([phone])[facility] [place] (SBHLAB)[address] Eosinophils (Bld) [#/Vol] 0.1 10*3/uL Normal 0.0-0.5 [facility] Comment on above: Performed By: #### L [id number] ####Trumpet Player: ENRIQUE JEAN BAPTISTE ([phone])[facility] [place] (SBHLAB)[address] Eosinophils/100 WBC (Bld) 0.7 % Normal 0.0-6.0 [facility] Comment on above: Performed By: #### L [id number] ####Trumpet Player: ENRIQUE JEAN BAPTISTE ([phone])[facility] [place] (SBHLAB)[address] Erythrocyte distribution width (RBC) [Ratio] 13.1 % Normal 11.5-15.0 [facility] Comment on above: Performed By: #### L [id number] ####Trumpet Player: ENRIQUE JEAN BAPTISTE ([id number])[facility] [place] (SBHLAB)[address] Hematocrit (Bld) [Volume fraction] 41.6 % Normal 40.0-52.0 [facility] Comment on above: Performed By: #### L [id number] ####Trumpet Player: ENRIQUE JEAN BAPTISTE ([phone])[facility] [place] (SBHLAB)[address] [place] [address] Hemoglobin (Bld) [Mass/Vol] 14.2 g/dL Normal 13.0-18.0 [facility] Comment on above: Performed By: #### L [id number] ####Trumpet Player: ENRIQUE JEAN BAPTISTE ([id number])[facility] [place] (SBHLAB)[address] IMMATURE GRANS % 0.2 % Normal 0.0-2.0 [facility] Comment on above: Performed By: #### L [id number] ####Trumpet Player: ENRIQUE JEAN BAPTISTE ([phone])[facility] [place] (SBHLAB)[address] IMMATURE GRANS ABSOLUTE 0.0 10*3/uL Normal <0.1 [facility] Comment on above: Performed By: #### L [id number] ####Trumpet Player: ENRIQUE JEAN BAPTISTE ([phone])[facility] [place] (SBHLAB)[address] Lymphocytes (Bld) [#/Vol] 2.2 10*3/uL Normal 1.0-4.3 [facility] Comment on above: Performed By: #### L [id number] ####Trumpet Player: ENRIQUE JEAN BAPTISTE ([phone])[facility] (SBHLAB)[address] Lymphocytes/100 WBC (Bld) 20.2 % Normal 15.0-45.0 [facility] Comment on above: Performed By: #### L [id number] ####Trumpet Player: ENRIQUE JEAN BAPTISTE ([phone])[facility] (SBHLAB)[address] MCH (RBC) [Entitic mass] 30.8 pg Normal 26.0-34.0 [facility] Comment on above: Performed By: #### L [id number] ####Trumpet Player: ENRIQUE JEAN BAPTISTE ([phone])[facility] (SBHLAB)[address] [place] [address] MCHC 34.1 % Normal 30.5-36.0 [facility] Comment on above: Performed By: #### L [id number] ####Trumpet Player: ENRIQUE JEAN BAPTISTE ([phone])[facility] (SBHLAB)[address] [place] [address] MCV (RBC) [Entitic vol] 90.2 fL Normal 77.0-99.0 [facility] Comment on above: Performed By: #### L [id number] ####Trumpet Player: ENRIQUE JEAN BAPTISTE ([phone])[facility] (SBHLAB)[address] [place] [address] Monocytes (Bld) [#/Vol] 0.7 10*3/uL Normal 0.0-0.9 [facility] Comment on above: Performed By: #### L [id number] ####Trumpet Player: ENRIQUE JEAN BAPTISTE ([phone])[facility] (SBHLAB)[address] Monocytes/100 WBC (Bld) 6.8 % Normal 5.0-13.0 [facility] Comment on above: Performed By: #### L [id number] ####Trumpet Player: ENRIQUE JEAN BAPTISTE ([phone])[facility] [place] (SBHLAB)[address] NEUTROPHILS ABSOLUTE 7.7 10*3/uL High 1.8-7.5 [facility] Comment on above: Performed By: #### L [id number] ####Trumpet Player: ENRIQUE GARCIAHEMANTH ([phone])[facility] [place] (SBHLAB)[address] Neutrophils/100 WBC (Bld) 71.7 % Normal 38.0-82.0 [facility] Comment on above: Performed By: #### L [id number] ####Trumpet Player: ENRIQUE JEAN BAPTISTE ([phone])[facility] [place] (SBHLAB)[address] NRBC 0.0 /100 WBCs Normal 0.0-2.0 [facility] Comment on above: Performed By: #### L [id number] ####Trumpet Player: ENRIQUE JEAN BAPTISTE ([id number])[facility] [place] (SBHLAB)[address] Platelet mean volume (Bld) [Entitic vol] 10.4 fL Normal 9.0-12.7 [facility] Comment on above: Performed By: #### L [id number] ####Trumpet Player: ENRIQUE JEAN BAPTISTE ([phone])[facility] [place] (SBHLAB)[address] [place] [address] [place] Platelets (Bld) [#/Vol] 288 10*3/uL Normal 140-440 [facility] Comment on above: Performed By: #### L [id number] ####Trumpet Player: ENRIQUE JEAN BAPTISTE ([phone])[facility] [place] (SB[facility]AB)[address] [place] [address] [place] RBC (Bld) [#/Vol] 4.61 10*6/uL Normal 4.40-5.90 [facility] Comment on above: Performed By: #### L [id number] ####Trumpet Player: ENRIQUE JEAN BAPTSITE ([phone])[facility] [place] (SBHLAB)[address] WBC (Bld) [#/Vol] 10.8 10*3/uL High 3.6-10.7 [facility] Comment on above: Performed By: #### L [id number] ####Trumpet Player: ENRIQUE JEAN BAPTISTE ([phone])[facility] (SBHLAB)[address] Laboratory - Chemistry and C hemistry - challengeon 02-17-2024 Glucose [Mass/Vol] 151 mg/dL High 70 - 100 mg/dL [facility] Glucose [Mass/Vol] 107 mg/dL High 70 - 100 mg/dL [facility] Magnesium [Mass/Vol] 2.1 mg/dL 1.6 - 2 .3 mg/dL [facility] MAGNESIUMon 02-17-2024 Magnesium [Mass/Vol] 2.1 mg/dL Normal 1.6-2.3 [facility] Comment on above: Performed By: #### L AB15, VXV524, QPU312 ####Trumpet Player: ENRIQUE JEAN BAPTISTE ([phone])[facility]ITALDie[facility] (SBHLAB)[address] [place] [address] Magnesium [Mass/Vol]on 02-16 Interpretation and review of laboratory results Normal [facility] No Panel Informationon 02-16 Interpretation and review of laboratory results Abnormal [facility] Performed by: [facility], [address] [place] [address] CLIA ID: [id number] [facility] Interpretation and review of laboratory results Abnormal [facility] Performed by: [facility], [address] [address] CLIA ID: [id number] [facility] Interpretation and review of laboratory results Abnormal [facility] PHOSPHORUSon 02-17-2024 Phosphate [Mass/Vol] 1.7 mg/dL Low 2.5-4.5 [facility] Comment on above: Performed By: #### L AB15, KBI620, WMQ618 ####Trumpet Player: ENRIQUE JEAN BAPTISTE ([phone])[facility] (SBHLAB)[address] [place] [address] [place] Phosphate [Moles/Vol]on 01-28 Phosphate [Mass/Vol] 1.7 mg/dL Low 2.5 - 4 .5 mg/dL [facility] BASIC METABOLIC PANELon 01-28 Anion gap [Moles/Vol] 8 mmol/L Normal 3-13 [facility] Comment on above: Performed By: #### L AB15, VPC010, JQR669 ####Trumpet Player: ENRIQUE JEAN BAPTISTE ([phone])[facility] [place] (SBHLAB)[address] Calcium [Mass/Vol] 7.8 mg/dL Low 8.4-10.4 [facility] Comment on above: Performed By: #### Benny AB15, LNM941, UJX132 ####Trumpet Player: ENRIQUE JEAN BAPTISTE ([phone])[facility] [place] (SBHLAB)[address] [place] [address] [place] Chloride [Moles/Vol] 104 mmol/L Normal 98-107 [facility] Comment on above: Performed By: #### L 15, EVT118, ZAY325 ####Trumpet Player: ENRIQUE JEAN BAPTISTE ([id number])[facility]BS[facility]ITALN (SBHLAB)[address] [place] [address] [place] CO2 [Moles/Vol] 18 mmol/L Low 22-30 [facility] Comment on above: Performed By: #### L AB15, QGV577, LDN444 ####Trumpet Player: ENRIQUE JEAN BAPTISTE ([phone])[facility] [place] (SBHLAB)[address] [place] [address] [place] Creatinine [Mass/Vol] 0.52 mg/dL Low 0.66-1.25 [facility] Comment on above: Performed By: #### L AB15, JNO197, QXB019 ####Trumpet Player: ENRIQUE JEAN BAPTISTE ([phone])[facility] (SBHLAB)[address] [place] [address] [place] GLOMERULAR FILTRATION RATE ML/MIN/1.73 SQ M.PREDICTED >90.0 Normal >60.0 [facility] Comment on above: Result Comment: Calc ulation based on the Chronic Kidney Disease Epidemiology Collaboration (CKD-EPI) equation refit without adjustment for race Performed By: #### L AB15, UKK495, QCY596 ####Trumpet Player: ENRIQUE JEAN BAPTISTE ([phone])[facility] (SBHLAB)[address] Glucose [Mass/Vol] 207 mg/dL High 70-100 [facility] Comment on above: Performed By: #### L AB15, MZZ093, OZD573 ####Trumpet Player: ENRIQUE JEAN BAPTISTE ([phone])[facility] (SBHLAB)[address] Potassium [Moles/Vol] 3.4 mmol/L Low 3.5-5.1 [facility] Comment on above: Performed By: #### L AB15, DRL928, QJH872 ####Trumpet Player: ENRIQUE JEAN BAPTISTE ([id number])[facility]N (SBHLAB)[address] [place] [address] [place] Sodium [Moles/Vol] 131 mmol/L Low 135-145 [facility] Comment on above: Performed By: #### L AB15, QYK279, RUQ423 ####Trumpet Player: ENRIQUE JEAN BAPTISTE ([phone])[facility]BS[facility]N (SBHLAB)[address] [place] [address] [place] Urea nitrogen [Mass/Vol] 10 mg/dL Normal 9-20 [facility] Comment on above: Performed By: #### L AB15, DHB162, STO161 ####Trumpet Player: ENRIQUE JEAN BAPTISTE ([phone])[facility] (SBHLAB)[address] [place] [address] [place] Anion gap [Moles/Vol] 12 mmol/L Normal 3-13 [facility] Comment on above: Performed By: #### L FU1400, WNU471, LAB15, XRC466 ####Trumpet Player: ENRIQUE JEAN BAPTISTE ([phone])[facility] [place] (SBHLAB)[address] Calcium [Mass/Vol] 8.3 mg/dL Low 8.4-10.4 [facility] Comment on above: Performed By: #### L ON7825, JMG203, LAB15, PTQ656 ####Trumpet Player: ENRIQUE JEAN BAPTISTE ([phone])[facility] [place] (SBHLAB)[address] Chloride [Moles/Vol] 101 mmol/L Normal 98-107 [facility] Comment on above: Performed By: #### L QN9567, ETG454, LAB15, PQF986 ####Trumpet Player: ENRIQUE JEAN BAPTISTE ([phone])[facility] (SBHLAB)[address] CO2 [Moles/Vol] 19 mmol/L Low 22-30 [facility] Comment on above: Performed By: #### L SS0349, YUW718, LAB15, SLJ178 ####Trumpet Player: ENRIQUE JEAN BAPTISTE ([phone])[facility] (SBHLAB)[address] Creatinine [Mass/Vol] 0.51 mg/dL Low 0.66-1.25 [facility] Comment on above: Performed By: #### L FB7065, EQL281, LAB15, BNA573 ####Trumpet Player: ENRIQUE JEAN BAPTISTE ([phone])[facility] (SBHLAB)[address] GLOMERULAR FILTRATION RATE ML/MIN/1.73 SQ M.PREDICTED >90.0 Normal >60.0 [facility] Comment on above: Result Comment: Calc ulation based on the Chronic Kidney Disease Epidemiology Collaboration (CKD-EPI) equation refit without adjustment for race ORDER COMMENTS: Slightly Hemolyzed Performed By: #### L EO4891, GHC877, LAB15, IFP075 ####Trumpet Player: ENRIQUE JEAN BAPTISTE ([phone])[facility] CLAUSN (SBHLAB)[address] Glucose [Mass/Vol] 131 mg/dL High 70-100 [facility] Comment on above: Performed By: #### L WV6150, AMF903, LAB15, NTX286 ####Trumpet Player: ENRIQUE JEAN BAPTISTE ([phone])[facility] (SBHLAB)[address] Potassium [Moles/Vol] 3.1 mmol/L Low 3.5-5.1 [facility] Comment on above: Performed By: #### L LY7722, ZST006, LAB15, FYJ629 ####Trumpet Player: ENRIQUE JEAN BAPTISTE ([phone])[facility] (SBHLAB)[address] Sodium [Moles/Vol] 132 mmol/L Low 135-145 [facility] Comment on above: Performed By: #### L JP4552, BVZ296, LAB15, WYR467 ####Trumpet Player: ENRIQUE JEAN BAPTISTE ([id number])[facility] (SBHLAB)[address] Urea nitrogen [Mass/Vol] 13 mg/dL Normal - [facility] Comment on above: Performed By: #### L QB3091, QRD771, LAB15, TFP701 ####Trumpet Player: ENRIQUE JEAN BAPTISTE ([phone])[facility] (SBHLAB)[address] BETA HYDROXYBUTYRATEon 02-15 BETA HYDROXYBUTYRATE 1.58 mg/dL Normal 0.20-2.81 [facility] Comment on above: Performed By: #### L MU0720, FEN042, LAB15, RLT067 ####Trumpet Player: ENRIQUE JEAN BAPTISTE ([phone])[facility] (SBHLAB)[address] Basic metabolic 1998 panelon 02-16-2024 Anion gap [Moles/Vol] 8 mmol/L 3 - 13 mmol/L [facility] Calcium [Mass/Vol] 7.8 mg/dL Low 8.4 - 10. 4 mg/dL [facility] Chloride [Moles/Vol] 104 mmol/L 98 - 10 7 mmol/L [facility] CO2 [Moles/Vol] 18 mmol/L Low 22 - 30 mmol/L [facility] Creatinine [Mass/Vol] 0.52 mg/dL Low 0.66 - 1.25 mg/dL [facility] GFR/1.73 sq M.predicted (S/P/Bld) [Vol rate/Area] - [facility] Comment on above: Calculation based on the Chronic Kidney Disease Epidemiology Collaboration (CKD-EPI) equation refit without adjustment for race Glucose [Mass/Vol] 207 mg/dL High 70 - 100 mg/dL [facility] Interpretation and review of laboratory results Abnormal [facility] Potassium [Moles/Vol] 3.4 mmol/L Low 3.5 - 5.1 mmol/L [facility] Sodium [Moles/Vol] 131 mmol/L Low 135 - 145 mmol/L [facility] Urea nitrogen [Mass/Vol] 10 mg/dL 9 - 20 mg/dL [facility] Anion gap [Moles/Vol] 12 mmol/L 3 - 13 mmol/L [facility] Calcium [Mass/Vol] 8.3 mg/dL Low 8.4 - 10. 4 mg/dL [facility] Chloride [Moles/Vol] 101 mmol/L 98 - 10 7 mmol/L [facility] CO2 [Moles/Vol] 19 mmol/L Low 22 - 30 mmol/L [facility] Creatinine [Mass/Vol] 0.51 mg/dL Low 0.66 - 1.25 mg/dL [facility] GFR/1.73 sq M.predicted (S/P/Bld) [Vol rate/Area] - [facility] Comment on above: Calculation based on the Chronic Kidney Disease Epidemiology Collaboration (CKD-EPI) equation refit without adjustment for race Glucose [Mass/Vol] 131 mg/dL High 70 - 100 mg/dL [facility] Interpretation and review of laboratory results Abnormal [facility] Potassium [Moles/Vol] 3.1 mmol/L Low 3.5 - 5.1 mmol/L [facility] Sodium [Moles/Vol] 132 mmol/L Low 135 - 145 mmol/L [facility] Urea nitrogen [Mass/Vol] 13 mg/dL 9 - 20 mg/dL [facility]16-2024 [facility] al Assessment Date: 02/16/2024 Patient Name: Ganesh Bush : 1955 Patient Information Source of Information: Patient Cognition/Language: WFL - Within Functional Limits Permission given to speak with patient sales training representative/caregive r as indicated: Confirmation of Payer with patient/family: Yes Payer Name: [facility] Medicare / Medicaid : No Confirmation of Primary Care Physician: Confirmed PCP Name: Dr. Lr Seen in last 2 years?: Yes Primary Caregiver: Self If assistance needed, confirmed caregiver ready, willing and able to care for patient at discharge: Yes Confirmed with: Per patient, his spouse is ready to assist as needed. Living Arrangements Current Residence: House Number of Floors 2 Number of Entry Steps: 4 Bed/Bath Levels: Both first floor Facility: Facility Name: Plan to Return: Yes Lives with: Spouse/significant other Support Systems: Spouse/significant other, Children Activities of Daily Living Ambulation: Independent Bathing/Dressing: Independent Elimination/Continence/ Toileting: Independent Feeding: Independent Who Assists with Activities of Daily Living: Instrumental Activities of Daily Living Prescription Coverage: Yes [facility]acy Used[facility] Medication Management: Independent Transportation/Shopping : Independent Transportation Mode: Car Needs Assistance with Transportation at Discharge: No (Spouse or dtr) Meal Preparation: Independent Laundry/Cleaning: Independent Finances/Bill Paying: Independent Communication: Independent Types of Care Services/Equipment Utilized Care Services: (n/a) Dialysis Type: NA Durable Medical Equipment: Glucometer Patient's Goal/Discharge Plan Patient expects to be discharged to: Home Discharge Planning Actions: Continue to follow, No needs identified Patient's Choice Rights and [employer] and Collaborative Relationships Disclosed as Indicated for Post-Acute Care: Interdisciplinary Team Engagement: Social Work Referral for: Additional Information: Spoke to patient at bedside. Introduced self and role. Assessment information taken from both conversation with patient and EPIC chart review. Admission Dx: nausea and vomiting; DKA Clinical Update: presented with progressively worsening abdominal pain, heartburn, nausea, emesis, and dyspnea. Lab work on admission consistent with DKA. DKA has resolved and patient feels improved with no new symptoms. Consults: IP CONSULT TO DIETITIAN PT/OT: no PT/OT consults ordered but patient is independent with all ADL/IADLs and up ad kit at baseline Current DCP: Home Discharge planning needs discussed. Patient denied any needs. Patient verbalizes understanding and is in agreement with POC. States spouse is ready, willing, and able to assist as needed when patient returns home. TCC will continue to follow. Manuel Nunez RN Normal [facility] CBC W Auto Differential pane l (Bld)Ordered By: Saniya Chong on 02-16-2024 Basophils (Bld) [#/Vol] 0 10*3/uL 0.0 - 0.2 10*3/uL [facility] Basophils/100 WBC (Bld) 0.2 % 0.0 - 2.0 % [facility] Eosinophils (Bld) [#/Vol] 0.1 10*3/uL 0.0 - 0.5 10*3/uL [facility] Eosinophils/100 WBC (Bld) 0.7 % 0.0 - 6.0 % [facility] Erythrocyte distribution width (RBC) [Ratio] 13.2 % 11.5 - 15.0 % [facility] Hematocrit (Bld) [Volume fraction] 39.3 % Low 40.0 - 52.0 % [facility] Hemoglobin (Bld) [Mass/Vol] 13.8 g/dL 13.0 - 18.0 g/dL [facility] Immature granulocytes (Bld) [#/Vol] 0 10*3/uL NINF - 0.1 10*3/uL [facility] [employer] Immature granulocytes/100 WBC (Bld) 0.3 % 0.0 - 2.0 % [facility] Interpretation and review of laboratory results Abnormal [facility] Lymphocytes (Bld) [#/Vol] 1.5 10*3/uL 1.0 - 4.3 10*3/uL [facility] Lymphocytes/100 WBC (Bld) 11.6 % Low 15.0 - 45.0 % [facility] MCH (RBC) [Entitic mass] 31.4 pg 26.0 - 34.0 pg [facility] MCHC (RBC) [Mass/Vol] 35.1 % 30.5 - 36.0 % [facility] MCV (RBC) [Entitic vol] 89.5 fL 77.0 - 99.0 fL [facility] Monocytes (Bld) [#/Vol] 1 10*3/uL High 0.0 - 0.9 10*3/uL [facility] Monocytes/100 WBC (Bld) 7.4 % 5.0 - 13.0 % [facility] Neutrophils (Bld) [#/Vol] 10.4 10*3/uL High 1.8 - 7.5 10*3/uL [facility] Neutrophils/100 WBC (Bld) 79.8 % 38.0 - 82.0 % [facility] Nucleated RBC/100 WBC (Bld) [Ratio] 0 % [facility] Platelet mean volume (Bld) [Entitic vol] 10.6 fL 9.0 - 12.7 fL [facility] Platelets (Bld) [#/Vol] 278 10*3/uL 140 - 440 10*3/uL [facility] RBC (Bld) [#/Vol] 4.39 10*6/uL Low 4.40 - 5.9 0 10*6/uL [facility] WBC (Bld) [#/Vol] 13 10*3/uL High 3.6 - 10.7 10*3/uL [facility] CBC WITH AUTO DIFFERENTIALon 02-16-2024 Basophils (Bld) [#/Vol] 0.0 10*3/uL Normal 0.0-0.2 [facility] Comment on above: Performed By: #### L [id number] ####Trumpet Player: ENRIQUE JEAN BAPTISTE ([phone])[facility] [place] [address] Basophils/100 WBC (Bld) 0.2 % Normal 0.0-2.0 [facility] Comment on above: Performed By: #### L [id number] ####Trumpet Player: ENRIQUE JEAN BAPTISTE ([phone])[facility])[address] Eosinophils (Bld) [#/Vol] 0.1 10*3/uL Normal 0.0-0.5 [facility] Comment on above: Performed By: #### L [id number] ####Trumpet Player: ENRIQUE JEAN BAPTISTE ([phone])[facility] ([facility])[address] [place] [address] Eosinophils/100 WBC (Bld) 0.7 % Normal 0.0-6.0 [facility] Comment on above: Performed By: #### L [id number] ####Trumpet Player: ENRIQUE JEAN BAPTISTE ([phone])[facility] ([facility])[address] Erythrocyte distribution width (RBC) [Ratio] 13.2 % Normal 11.5-15.0 [facility] Comment on above: Performed By: #### L [id number] ####Trumpet Player: ENRIQUE JEAN BAPTISTE ([phone])[facility])[address] [place] [address] Hematocrit (Bld) [Volume fraction] 39.3 % Low 40.0-52.0 [facility] Comment on above: Performed By: #### L [id number] ####Trumpet Player: ENRIQUE JEAN BAPTISTE ([phone])[facility])[address] [place] [address] Hemoglobin (Bld) [Mass/Vol] 13.8 g/dL Normal 13.0-18.0 [facility] Comment on above: Performed By: #### L [id number] ####Trumpet Player: ENRIQUE JEAN BAPTISTE ([phone])[facility] ([facility])[address] IMMATURE GRANS % 0.3 % Normal 0.0-2.0 [facility] Comment on above: Performed By: #### L [id number] ####Trumpet Player: ENRIQUE JEAN BAPTISTE ([phone])[facility])[address] IMMATURE GRANS ABSOLUTE 0.0 10*3/uL Normal <0.1 [facility] Comment on above: Performed By: #### L [id number] ####Trumpet Player: ENRIQUE JEAN BAPTISTE ([phone])[facility] ([facility])[address] Lymphocytes (Bld) [#/Vol] 1.5 10*3/uL Normal 1.0-4.3 [facility] Comment on above: Performed By: #### L [id number] ####Trumpet Player: ENRIQUE JEAN BAPTISTE ([phone])[facility] ([facility])[address] Lymphocytes/100 WBC (Bld) 11.6 % Low 15.0-45.0 [facility] Comment on above: Performed By: #### L [id number] ####Trumpet Player: ENRIQUE JEAN BAPTISTE ([phone])[facility] ([facility])[address] MCH (RBC) [Entitic mass] 31.4 pg Normal 26.0-34.0 [facility] Comment on above: Performed By: #### L [id number] ####Trumpet Player: ENRIQUE JEAN BAPTISTE ([phone])[facility]BSNOR[facility]OSPITALDie[facility] ([facility])[address] MCHC 35.1 % Normal 30.5-36.0 [facility] Comment on above: Performed By: #### L [id number] ####Trumpet Player: ENRIQUE JEAN BAPTISTE ([phone])[facility] C[facility] ([facility])[address] MCV (RBC) [Entitic vol] 89.5 fL Normal 77.0-99.0 [facility] Comment on above: Performed By: #### L [id number] ####Trumpet Player: ENRIQUE JEAN BAPTISTE ([phone])[facility] ([facility])[address] Monocytes (Bld) [#/Vol] 1.0 10*3/uL High 0.0-0.9 [facility] Comment on above: Performed By: #### L [id number] ####Trumpet Player: ENRIQUE JEAN BAPTISTE ([phone])[facility] ([facility])[address] [place] [address] [place] Monocytes/100 WBC (Bld) 7.4 % Normal 5.0-13.0 [facility] Comment on above: Performed By: #### L [id number] ####Trumpet Player: ENRIQUE JEAN BAPTISTE ([phone])[facility] [place] ([facility])[address] NEUTROPHILS ABSOLUTE 10.4 10*3/uL High 1.8-7.5 [facility] Comment on above: Performed By: #### L [id number] ####Trumpet Player: ENRIQUE JEAN BAPTISTE ([phone])[facility] [place] ([facility])[address] Neutrophils/100 WBC (Bld) 79.8 % Normal 38.0-82.0 [facility] Comment on above: Performed By: #### L [id number] ####Trumpet Player: ENRIQUE JEAN BAPTISTE ([phone])[facility] [place] ([facility])[address] NRBC 0.0 /100 WBCs Normal 0.0-2.0 [facility] Comment on above: Performed By: #### L [id number] ####Trumpet Player: ENRIQUE JEAN BAPTISTE ([phone])[facility] [place] ([facility])[address] [place] [address] [place] Platelet mean volume (Bld) [Entitic vol] 10.6 fL Normal 9.0-12.7 [facility] Comment on above: Performed By: #### L [id number] ####Trumpet Player: ENRIQUE JEAN BAPTISTE ([phone])[facility] [place] ([facility])[address] [place] [address] [place] Platelets (Bld) [#/Vol] 278 10*3/uL Normal 140-440 [facility] Comment on above: Performed By: #### L [id number] ####Trumpet Player: ENRIQUE JEAN BAPTISTE ([phone])[facility]INGH ([facility])[address] RBC (Bld) [#/Vol] 4.39 10*6/uL Low 4.40-5.90 [facility] Comment on above: Performed By: #### L [id number] ####Trumpet Player: ENRIQUE JEAN BAPTISTE ([phone])[facility] [place] ([facility])[address] WBC (Bld) [#/Vol] 13.0 10*3/uL High 3.6-10.7 [facility] Comment on above: Performed By: #### L [id number] ####Trumpet Player: ENRIQUE JEAN BAPTISTE ([phone])[facility] ([facility])[address] [place] [address] Consulton 02-16-2024 Consult Nutrition Assessment Type and Reason for Visit: Initial, Consult (nutritional supplements) Nutrition Recommendations/Plan: Per mnt protocol will add 5 carb choices (75 gm/meal) to help with blood sugar management Per mnt protocol will add Ensure High Protein bid (160 kcal, 16 gm prot) Please record meal and supplement intakes in RN Flowsheets Request standing scale wt as able RD to monitor PO intake, labs, weight -follow up weekly Malnutrition Assessment: Malnutrition Status: At risk for malnutrition (Comment) (recent poor intake, wt loss) Context: Acute Illness Findings of the 6 clinical characteristics of malnutrition: Energy Intake: Mild decrease in energy intake (Comment) (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 male admits with nausea and vomiting, dehydration, DKA. pt reports n/v improved and tolerated breakfast today. 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 Pt declines need for diet review at this time states he is familiar with CHO controlled diet but admits to non-compliance pt declines written diet materials. bed scale wt 172 lb Estimated Daily Nutrient Needs: Energy Requirements Based On: Kcal/kg Weight Used for Energy Requirements: [place] Weight for Energy Calculation (kg): 75 kg Total Energy Requirements (kcals/day): 1337-6911 (25-30) Weight Used for Protein Requirements: [place] Weight in Kg Used for Protein Requirements: 75 kg Estimated Total Protein (g/day): 75-90 (1.0-1.2) Estimated Daily Total Fluid (ml/day): per MD Nutrition Related Findings: no ariel LE edema, bgluc 207, 186 ( A1c 9.4 09/2023), k+ 3.4, c02 18, cr .52, ca 7.8, alkphos 255, alt 74, wbc 13. meds insulin, reglan. bed scale wt today 172 lb = 7.5% wt loss in 4.5 months and 9% loss > 1 year noted -not considered clinically significant Wound Type: None 02/15/24 81.6 kg (180 lb) 10/01/23 84.4 kg (186 lb) 05/27/23 85.5 kg (188 lb 9.6 oz) 11/13/22 86.2 kg (190 lb) 08/14/22 79.6 kg (175 lb 6.4 oz) 05/10/22 86.1 kg (189 lb 14.4 oz) 05/09/22 85.7 kg (189 lb) Current Nutrition Therapies: Adult diet Regular; 5 carb choices (75 gm/meal) Current Oral Intake Average Meal Intake: 26-50% (per pt report) Average Supplements Intake: None Ordered Anthropometric Measures: Height: 177.8 cm (5' 10) Current Body Weight: 78 kg (172 lb) (bed scale today) Weight Source: Stated Admission Body Weight: 81.6 kg (180 lb) Usual Body Weight: 86.2 kg (190 lb) (10/2022 per records. pt unsure of wt hx) % Weight Change (Calculated): -9.5 [place] Body Weight (lbs) (Calculated): 166 lbs [place] Body Weight (Kg) (Calculated): 75 kg % [place] Body Weight (Calculated): 103.6 % BMI (kg/m2) (Calculated): 24.7 BMI Categories: Overweight (BMI 25.0-29.9) Nutrition Diagnosis: Increased nutrient needs related to (acute illness) as evidenced by poor intake prior to admission Altered nutrition-related lab values related to endocrine dysfuntion as evidenced by lab values Nutrition Interventions: Nutrition Education/Counseling: Education declined Coordination of Nutrition Care: Continue to monitor while inpatient Plan of Care discussed with: patient Goals: Goals: PO intake 75% or greater, by next RD assessment Nutrition Monitoring and Evaluation: Behavioral-Environmenta l Outcomes: Readiness for Change Food/Nutrient Intake Outcomes: Food and Nutrient Intake, Supplement Intake Physical Signs/Symptoms Outcomes: Biochemical Data, Chewing or Swallowing, GI Status, Nausea or Vomiting, Fluid Status or Edema, Hemodynamic Status, Nutrition Focused Physical Findings, Skin, Weight Discharge Planning: Continue current diet Nadja Cisse RD Contact: *[phone] or via Secure Chat [facility] ECG 12-LEADon 02-16-2024 ECG 12-LEAD IMPRESSION: Sinus rhythm Compared to ECG 08/14/22 No significant change Electronically Signed On 02-16-2024 04:59:57 EDT by Kendell Wong [facility] IDNon 02-16-2024 IDN The patient is Moderately Stable - Low risk of patient condition declining or worsening The patient's goals for the shift include To control blood sugar The clinical goals for the shift include to control blood sugar and free from DKA The should demonstrate sufficient knowledge on DM management Problem: Knowledge Deficit Goal: Patient/family/caregive r demonstrates understanding of disease process, treatment plan, medications, and discharge instructions Outcome: Progressing Problem: Glucose Imbalance Goal: Clinical indication of glucose balance is achieved Outcome: Progressing [facility] IDN The patient is Moderately Unstable - Medium risk of patient condition declining or worsening The patient's goals for the shift include To control blood sugar The clinical goals for the shift include to control blood sugar and free from DKA Problem: Pain - Adult Goal: Verbalizes/displays adequate comfort level or baseline comfort level Outcome: Progressing Problem: Chronic Conditions and Co-morbidities Goal: Patient's chronic conditions and co-morbidity symptoms are monitored and maintained or improved Outcome: Progressing Problem: Glucose Imbalance Goal: Clinical indication of glucose balance is achieved Outcome: Progressing [facility] Laboratory - Chemistry and C hemistry - challengeon 02-16-2024 Glucose [Mass/Vol] 202 mg/dL High 70 - 100 mg/dL [facility] Glucose [Mass/Vol] 101 mg/dL High 70 - 100 mg/dL [facility] Glucose [Mass/Vol] 90 mg/dL 70 - 100 mg/dL [facility] Magnesium [Mass/Vol] 1.8 mg/dL 1.6 - 2 .3 mg/dL [facility] Glucose [Mass/Vol] 186 mg/dL High 70 - 100 mg/dL [facility] Glucose [Mass/Vol] 109 mg/dL High 70 - 100 mg/dL [facility] Glucose [Mass/Vol] 92 mg/dL 70 - 100 mg/dL [facility] Beta hydroxybutyrate [Mass/Vol] 1.58 mg/dL 0.20 - 2.81 mg/dL [facility] Magnesium [Mass/Vol] 2 mg/dL 1.6 - 2 .3 mg/dL [facility] Glucose [Mass/Vol] 121 mg/dL High 70 - 100 mg/dL [facility] Laboratory - Drug toxicology Ordered By: Shraddha Nurse on 02-16-2024 Amphetamines Ql (U) Negative Negative [facility] Barbiturates screen method Nom (U) Negative Negative [facility] Benzodiazepines screen method Nom (U) Negative Negative [facility] Cocaine Ql (U) Negative Negative [facility] th Ethanol [Mass/Vol] Negative Negative [facility] Methadone Ql (U) Negative Negative [facility] alth Opiates Screen Ql (U) Negative Negative [facility] MAGNESIUMon 02-16-2024 Magnesium [Mass/Vol] 1.8 mg/dL Normal 1.6-2.3 [facility] Comment on above: Performed By: #### L [id number], [id number], [id number] ####Trumpet Player: ENRIQUE JEAN BAPTISTE ([phone])[facility] ([facility])[address] Magnesium [Mass/Vol] 2.0 mg/dL Normal 1.6-2.3 [facility] Comment on above: Result Comment: KAMALA Mcdaniels COMMENTS: Slightly Hemolyzed Performed By: #### L [id number], [id number], LAB15, [id number] ####Trumpet Player: ENRIQUE JEAN BAPTISTE ([phone])[facility] ([facility])[address] No Panel Informationon 02-15 Interpretation and review of laboratory results Abnormal [facility] Performed by: [facility], [address] [facility], [facility] [address] CLIA ID: [id number] [facility] Interpretation and review of laboratory results Abnormal [facility] Performed by: [facility], [address] [facility], [facility] [address] CLIA ID: [id number] [facility] Interpretation and review of laboratory results Normal [facility] Performed by: [facility], [address] [facility] [address] CLIA ID: [id number] [facility] Interpretation and review of laboratory results Normal [facility] Interpretation and review of laboratory results Abnormal [facility] Performed by: [facility], [address] [place] [address] CLIA ID: [id number] [facility] Interpretation and review of laboratory results Abnormal [facility] Performed by: [facility], [address] [facility] [address] CLIA ID: [id number] [facility] Sinus rhythm Compared to ECG 08/14/22 No significant change Electronically Signed On 02-16-2024 04:59:57 EDT by Kendell Florian D O - 02/16/2024 IMPRESSION: Sinus rhythm Compared to ECG 08/14/22 No significant change Electronically Signed On 02-16-2024 04:59:57 EDT by Kendell Wong [facility] Interpretation and review of laboratory results Normal [facility] Performed by: [facility], [address] [place] [address] CLIA ID: [id number] [facility] Interpretation and review of laboratory results Normal [facility] Interpretation and review of laboratory results Normal [facility] Slightly Hemolyzed [facility] Interpretation and review of laboratory results Abnormal [facility] Performed by: [facility], [address] [facility] [address] CLIA ID: [id number] [facility] No Panel InformationOrdered By: Shraddha Curtis on 02-16-2024 BUPRENORPHINE SCREEN Positive Negative [facility] FENTANYL Positive Negative [facility] OXYCODONE/OXYMORPHONE Negative Negative [facility] PCP Negative Negative [facility] THC Negative Negative [facility] The expected value f or the drugs listed above is Negative. The following drugs or drug groups have been screened for by Immunoassay at the following thresholds: Amphetamine class(1000ng/mL) Barbituates(200ng/mL) Benzodiazepines(200ng/m L) Cocaine(300ng/mL) Ethanol (50 ng/mL) Methadone(300ng/mL) Opiates(300ng/mL) Oxycodone(100ng/mL) PCP(25ng/mL) Buprenorphine(5ng/mL) THC(50ng/mL) Fentanyl(1ng/mL) Positive results are NOT confirmed by a more specific alternative method unless requested. If confirmation is needed, request confirmation under separate order. NOTE: These results are for medical treatment only. Analysis performed using non-forensic procedures. [facility] [employer] No Panel InformationOrdered By: Kendell Wong on 02-16-2024 P [place] 54 degrees [facility] [employer] Work Phone: DE Interval 169 ms [facility] [employer] Work Phone: QRS [place] 10 degrees [facility] [employer] Work Phone: QRSD Interval [address] [facility] [employer] Work Phone: QT Interval 375 ms [facility] [employer] Work Phone: QTC Interval 466 ms [facility] [employer] Work Phone: T Wave [place] 54 degrees [facility] Work Phone: [facility] [employer] Work Phone: PHOSPHORUSon 02-16-2024 Phosphate [Mass/Vol] 2.7 mg/dL Normal 2.5-4.5 [facility] [employer] [facility] Comment on above: Performed By: #### L AB15, [id number], [id number] ####Trumpet Player: ENRIQUE JEAN BAPTISTE ([phone])[facility] ([facility])[address] [place] [address] Phosphate [Mass/Vol] 2.6 mg/dL Normal 2.5-4.5 [facility] [employer] [facility] Comment on above: Result Comment: ORDE R COMMENTS: Slightly Hemolyzed Performed By: #### L [id number], [id number], LAB15, [id number] ####Trumpet Player: ENRIQUE JEAN BAPTISTE ([phone])[facility] ([facility])[address] [place] [address] [place] Phosphate [Moles/Vol]on 01-28 Phosphate [Mass/Vol] 2.7 mg/dL 2.5 - 4 .5 mg/dL [facility] Phosphate [Mass/Vol] 2.6 mg/dL 2.5 - 4 .5 mg/dL [facility] Progress Noteon 02-16-2024 Progress Note ICU Transfer [facility] Transfer Med Reconciliation (resume home meds if able, convert to PO if able) Complete Antibiotics (name, indication, duration, convert to PO if able) None Steroid (indication, duration, convert to PO if able) None Anticipated [place] Medications (ICU initiated) or Dose Changes and Indication Yes, addressed in today's progress note Permanently Discontinued Home Medications and Reason for medication contraindication No Henning Catheter (please remove if able. Note: place DC order) No Central Line (please remove if able. Note: place DC order) No Transfer Discussed [place]: [place] [facility] [place] additional questions for ICU team within 24 hours of ICU transfer, page [phone] [facility] Progress Note Accepted ICU transfe r from Dr. Escalante Normal [facility] Vital signsOrdered By: Halima Wong on 02-16-2024 Heart rate 92 /min bpm [facility] Work Phone: BASIC METABOLIC PANELon 01-27 Anion gap [Moles/Vol] 22 mmol/L High 3-13 [facility] Comment on above: Performed By: #### L AB103, VTV945, LAB15, [id number] ####Trumpet Player: ENRIQUE JEAN BAPTISTE ([phone])[facility] ([facility])[address] [place] [address] [place] Calcium [Mass/Vol] 8.7 mg/dL Normal 8.4-10.4 [facility] Comment on above: Performed By: #### L AB103, KUH256, LAB15, [id number] ####Trumpet Player: ENRIQUE JEAN BAPTISTE ([phone])[facility] ([facility])[address] Chloride [Moles/Vol] 98 mmol/L Normal 98-107 [facility] Comment on above: Performed By: #### L AB103, [id number], LAB15, [id number] ####Trumpet Player: ENRIQUE JEAN BAPTISTE ([phone])[facility] ([facility])[address] CO2 [Moles/Vol] 13 mmol/L Low 22-30 [facility] Comment on above: Performed By: #### L AB103, KSC751, LAB15, [id number] ####Trumpet Player: ENRIQUE JEAN BAPTISTE ([phone])[facility] [facility] (SBHLAB)[address] Creatinine [Mass/Vol] 0.56 mg/dL Low 0.66-1.25 [facility] Comment on above: Performed By: #### L AB103, [id number], LAB15, UQI3097 ####Trumpet Player: ENRIQUE JEAN BAPTISTE ([phone])[facility] (SBHLAB)[address] GLOMERULAR FILTRATION RATE ML/MIN/1.73 SQ M.PREDICTED >90.0 Normal >60.0 [facility] Comment on above: Result Comment: Calc ulation based on the Chronic Kidney Disease Epidemiology Collaboration (CKD-EPI) equation refit without adjustment for race Performed By: #### L AB103, IZJ270, LAB15, RWL6299 ####Trumpet Player: ENRIQUE JEAN BAPTISTE ([phone])[facility] (SBHLAB)[address] [place] [address] [place] Glucose [Mass/Vol] 241 mg/dL High 70-100 [facility] Comment on above: Performed By: #### L AB103, CXT971, LAB15, TSI3382 ####Trumpet Player: ENRIQUE JEAN BAPTISTE ([phone])[facility] (SBHLAB)[address] Potassium [Moles/Vol] 3.5 mmol/L Normal 3.5-5.1 [facility] Comment on above: Performed By: #### L AB103, WYE003, LAB15, MQO3226 ####Trumpet Player: ENRIQUE JEAN BAPTISTE ([phone])[facility] (SB[facility]AB)[address] Sodium [Moles/Vol] 133 mmol/L Low 135-145 [facility] Comment on above: Performed By: #### L AB103, CNI343, LAB15, PIB1396 ####Trumpet Player: ENRIQUE JEAN BAPTISTE ([phone])[facility] (SBHLAB)[address] Urea nitrogen [Mass/Vol] 15 mg/dL Normal 9-20 [facility] Comment on above: Performed By: #### L AB103, GXU207, LAB15, MDX2375 ####Trumpet Player: ENRIQUE JEAN BAPTISTE ([phone])[facility] (SBHLAB)[address] BETA HYDROXYBUTYRATEon 02-14 BETA HYDROXYBUTYRATE 31.40 mg/dL High 0.20-2.81 [facility] Comment on above: Performed By: #### L AB103, UHL587, LAB15, MQR5582 ####Trumpet Player: ENRIQUE JEAN BAPTISTE ([phone])[facility] (SBHLAB)[address] BETA HYDROXYBUTYRATE 110.00 mg/dL High 0.20-2.81 [facility] Comment on above: Performed By: #### L AB17, CBH398, LAB99, LHJ7800, CFW370, THU144 ####Trumpet Player: ENRIQUE JEAN BAPTISTE ([phone])[facility] (SBHLAB)[address] BLOOD GAS, VENOUSon 02-15-20 Base excess Calc (BldV) [Moles/Vol] -11.73301 mmol/L Low -3.0-3.0 [facility] Comment on above: Performed By: #### L AB79 ####Trumpet Player: ENRIQUE JEAN BAPTISTE ([phone])[facility] [place] (SBHLAB)[address] CO2 [Moles/Vol] 12.2 mmol/L Low 23.0-30.0 [facility] Comment on above: Performed By: #### L AB79 ####Trumpet Player: ENRIQUE JEAN BAPTISTE ([phone])[facility] (SBHLAB)[address] HCO3 (Bld) [Moles/Vol] 11.5 mmol/L Low 21.0-30.0 [facility] Comment on above: Performed By: #### L AB79 ####Trumpet Player: NERIQUE JEAN BAPTISTE ([phone])[facility] [place] (SBHLAB)[address] Hemoglobin (Bld) [Mass/Vol] 19.7 g/dL High Screen only [facility] Comment on above: Performed By: #### L AB79 ####Trumpet Player: ENRIQUE JEAN BAPTISTE ([phone])[facility] (SBHLAB)[address] OXYGEN (MM HG) IN VENOUS BLOOD 54.2 mm Hg Normal [facility] Comment on above: Performed By: #### L AB79 ####Trumpet Player: ENRIQUE JEAN BAPTISTE ([phone])[facility] (SBHLAB)[address] OXYGEN SATURATION (%) IN VENOUS BLOOD 85.0 % Normal [facility] Comment on above: Performed By: #### L AB79 ####Trumpet Player: ENRIQUE JEAN BAPTISTE ([phone])[facility] (SBHLAB)[address] [place] [address] [place] PCO2, AMBROSIO 22.4 mm Hg Low 38.0-56.0 [facility] Comment on above: Performed By: #### L AB79 ####Trumpet Player: ENRIQUE GARCIAHEMANTH ([phone])[facility] PH VENOUS 7.329 Normal 7.320-7.420 [facility] Comment on above: Performed By: #### L AB79 ####Trumpet Player: ENRIQUE JEAN BAPTISTE ([phone])[facility] (SBAB)[address] SOURCE OF OXYGEN Room Air Normal [facility] Comment on above: Result Comment: KAMALA Mcdaniels COMMENTS: Assessment of oxygenation is best done with an arterial blood gas determination. Reference ranges for pO2, bicarbonate, and base excess are for mixed venous blood. Specimens drawn from a peripheral vein will often have higher values. Interpret with caution, pO2 values falsely increased due to vacuum in tube. For accurate results, please draw in a syringe. Performed By: #### L AB79 ####Trumpet Player: ENRIQUE JEAN BAPTISTE ([phone])[facility] ([facility])[address] [place] [address] Basic metabolic 1998 panelon 02-15-2024 Anion gap [Moles/Vol] 22 mmol/L High 3 - 13 mmol/L [facility] [employer] Calcium [Mass/Vol] 8.7 mg/dL 8.4 - 10. 4 mg/dL [facility] [employer] Chloride [Moles/Vol] 98 mmol/L 98 - 10 7 mmol/L [facility] [employer] CO2 [Moles/Vol] 13 mmol/L Low 22 - 30 mmol/L [facility] Creatinine [Mass/Vol] 0.56 mg/dL Low 0.66 - 1.25 mg/dL [facility] [employer] GFR/1.73 sq M.predicted (S/P/Bld) [Vol rate/Area] - PINF [facility] Comment on above: Calculation based on the Chronic Kidney Disease Epidemiology Collaboration (CKD-EPI) equation refit without adjustment for race Glucose [Mass/Vol] 241 mg/dL High 70 - 100 mg/dL [facility] Interpretation and review of laboratory results Abnormal [facility] Potassium [Moles/Vol] 3.5 mmol/L 3.5 - 5.1 mmol/L [facility] Sodium [Moles/Vol] 133 mmol/L Low 135 - 145 mmol/L [facility] Urea nitrogen [Mass/Vol] 15 mg/dL 9 - 20 mg/dL [facility] CBC W Auto Differential pane l (Bld)on 02-15-2024 Basophils (Bld) [#/Vol] 0 10*3/uL 0.0 - 0.2 10*3/uL [facility] Basophils/100 WBC (Bld) 0.2 % 0.0 - 2.0 % [facility] Eosinophils (Bld) [#/Vol] 0 10*3/uL 0.0 - 0.5 10*3/uL [facility] Eosinophils/100 WBC (Bld) 0.1 % 0.0 - 6.0 % [facility] Erythrocyte distribution width (RBC) [Ratio] 13 % 11.5 - 15.0 % [facility] Hematocrit (Bld) [Volume fraction] 46.4 % 40.0 - 52.0 % [facility] Hemoglobin (Bld) [Mass/Vol] 16.1 g/dL 13.0 - 18.0 g/dL [facility] Immature granulocytes (Bld) [#/Vol] 0.1 10*3/uL High NINF - 0.1 10*3/uL [facility] Immature granulocytes/100 WBC (Bld) 0.5 % 0.0 - 2.0 % [facility] Interpretation and review of laboratory results Abnormal [facility] Lymphocytes (Bld) [#/Vol] 1.3 10*3/uL 1.0 - 4.3 10*3/uL [facility] Lymphocytes/100 WBC (Bld) 7.2 % Low 15.0 - 45.0 % [facility] MCH (RBC) [Entitic mass] 31 pg 26.0 - 34.0 pg [facility] MCHC (RBC) [Mass/Vol] 34.7 % 30.5 - 36.0 % [facility] MCV (RBC) [Entitic vol] 89.4 fL 77.0 - 99.0 fL [facility] Monocytes (Bld) [#/Vol] 0.8 10*3/uL 0.0 - 0.9 10*3/uL [facility] Monocytes/100 WBC (Bld) 4.8 % Low 5.0 - 13.0 % [facility] Neutrophils (Bld) [#/Vol] 15.1 10*3/uL High 1.8 - 7.5 10*3/uL [facility] Neutrophils/100 WBC (Bld) 87.2 % High 38.0 - 82.0 % [facility] Nucleated RBC/100 WBC (Bld) [Ratio] 0 % [facility] Platelet mean volume (Bld) [Entitic vol] 10.4 fL 9.0 - 12.7 fL [facility] Platelets (Bld) [#/Vol] 343 10*3/uL 140 - 440 10*3/uL [facility] RBC (Bld) [#/Vol] 5.19 10*6/uL 4.40 - 5.9 0 10*6/uL [facility] WBC (Bld) [#/Vol] 17.3 10*3/uL High 3.6 - 10.7 10*3/uL [facility] CBC WITH AUTO DIFFERENTIALon 02-15-2024 Basophils (Bld) [#/Vol] 0.0 10*3/uL Normal 0.0-0.2 [facility] Comment on above: Performed By: #### L [id number] ####Trumpet Player: ENRIQUE JEAN BAPTISTE ([phone])[facility] ([facility])[address] [place] [address] Basophils/100 WBC (Bld) 0.2 % Normal 0.0-2.0 [facility] Comment on above: Performed By: #### L [id number] ####Trumpet Player: ENRIQUE JEAN BAPTISTE ([phone])[facility] (SBHLAB)[address] [place] [address] [place] Eosinophils (Bld) [#/Vol] 0.0 10*3/uL Normal 0.0-0.5 [facility] Comment on above: Performed By: #### L [id number] ####Trumpet Player: ENRIQUE JEAN BAPTISTE ([phone])[facility] (SBHLAB)[address] [place] [address] [place] Eosinophils/100 WBC (Bld) 0.1 % Normal 0.0-6.0 [facility] Comment on above: Performed By: #### L [id number] ####Trumpet Player: ENRIQUE GARCIAHEMANTH ([phone])[facility] (SBHLAB)[address] Erythrocyte distribution width (RBC) [Ratio] 13.0 % Normal 11.5-15.0 [facility] Comment on above: Performed By: #### L [id number] ####Trumpet Player: ENRIQUE GALDAMEZISIDRO ([phone])[facility] ([facility])[address] Hematocrit (Bld) [Volume fraction] 46.4 % Normal 40.0-52.0 [facility] Comment on above: Performed By: #### L [id number] ####Trumpet Player: ENRIQUE GARCIAHEMANTH ([phone])[facility] [place] [facility])[address] Hemoglobin (Bld) [Mass/Vol] 16.1 g/dL Normal 13.0-18.0 [facility] Comment on above: Performed By: #### L [id number] ####Trumpet Player: ENRIQUE JEAN BAPTISTE ([phone])[facility] (SBAB)[address] [place] [address] IMMATURE GRANS % 0.5 % Normal 0.0-2.0 [facility] Comment on above: Performed By: #### L [id number] ####Trumpet Player: ENRIQUE GARCIAHEMANTH ([phone])[facility] (SBAB)[address] IMMATURE GRANS ABSOLUTE 0.1 10*3/uL High <0.1 [facility] Comment on above: Performed By: #### L [id number] ####Trumpet Player: ENRIQUE JEAN BAPTISTE ([phone])[facility] (SBAB)[address] Lymphocytes (Bld) [#/Vol] 1.3 10*3/uL Normal 1.0-4.3 [facility] Comment on above: Performed By: #### L [id number] ####Trumpet Player: ENRIQUE GALDAMEZDonaldHEMANTH ([phone])[facility] [place] (SBHLAB)[address] Lymphocytes/100 WBC (Bld) 7.2 % Low 15.0-45.0 [facility] Comment on above: Performed By: #### L [id number] ####Trumpet Player: ENRIQUE ITA ([phone])[facility] [place] (SBHLAB)[address] MCH (RBC) [Entitic mass] 31.0 pg Normal 26.0-34.0 [facility] Comment on above: Performed By: #### L [id number] ####Trumpet Player: ENRIQUE ITA ([phone])[facility] [place] (SBHLAB)[address] MCHC 34.7 % Normal 30.5-36.0 [facility] Comment on above: Performed By: #### L [id number] ####Trumpet Player: ENRIQUE GARCIAHEMANTH ([phone])[facility] [place] (SBHLAB)[address] MCV (RBC) [Entitic vol] 89.4 fL Normal 77.0-99.0 [facility] Comment on above: Performed By: #### L [id number] ####Trumpet Player: ENRIQUE GARCIAHEMANTH ([phone])[facility] [place] (SBHLAB)[address] [place] [address] [place] Monocytes (Bld) [#/Vol] 0.8 10*3/uL Normal 0.0-0.9 [facility] Comment on above: Performed By: #### L [id number] ####Trumpet Player: ENRIQUE JEAN BAPTISTE ([phone])[facility] [place] (SBHLAB)[address] [place] [address] [place] Monocytes/100 WBC (Bld) 4.8 % Low 5.0-13.0 [facility] Comment on above: Performed By: #### L [id number] ####Trumpet Player: ENRIQUE JEAN BAPTISTE ([phone])[facility] [place] (SBHLAB)[address] NEUTROPHILS ABSOLUTE 15.1 10*3/uL High 1.8-7.5 [facility] Comment on above: Performed By: #### L [id number] ####Trumpet Player: ENRIQUE JEAN BAPTISTE ([phone])[facility] [place] (SBHLAB)[address] Neutrophils/100 WBC (Bld) 87.2 % High 38.0-82.0 [facility] Comment on above: Performed By: #### L [id number] ####Trumpet Player: ENRIQUE JEAN BAPTISTE ([phone])[facility] [place] (SBHLAB)[address] NRBC 0.0 /100 WBCs Normal 0.0-2.0 [facility] Comment on above: Performed By: #### L [id number] ####Trumpet Player: ENRIQUE JEAN BAPTISTE ([phone])[facility] [place] (SBHLAB)[address] Platelet mean volume (Bld) [Entitic vol] 10.4 fL Normal 9.0-12.7 [facility] Comment on above: Performed By: #### L [id number] ####Trumpet Player: ENRIQUE JEAN BAPTISTE ([phone])[facility] [place] (SBHLAB)[address] [place] [address] [place] Platelets (Bld) [#/Vol] 343 10*3/uL Normal 140-440 [facility] Comment on above: Performed By: #### L [id number] ####Trumpet Player: ENRIQUE JEAN BAPTISTE ([phone])[facility] [place] (SBHLAB)[address] RBC (Bld) [#/Vol] 5.19 10*6/uL Normal 4.40-5.90 [facility] Comment on above: Performed By: #### L [id number] ####Trumpet Player: ENRIQUE JEAN BAPTISTE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 gravity (U) [Rel density] 1.023 1.005 - 1.030 [facility] Urobilinogen (U) [Mass/Vol] Normal Normal (0-1) mg/dL [facility] WBC LM.HPF (Urine sed) [#/Area] 0-2 [facility] Vital signson 02-15-2024 Oxygen saturation in Venous blood 85 % [facility] XR Chest Single viewon 02-14 No acute cardiopulmonary disease. Report Dictated on Electronically Signed By: Levar Kong MD Electronically Signed Date/Time: 02/15/2024 6:16 PM T [facility] Name[facility]USH [facility] 1955 [id number] Exam Date/Time: 02/15/2024 18:13 Procedure: XR CHEST 1 VIEW Ordering Provider: MALDONADO MANSUR Reason For Exam: dyspnea PORTABLE CHEST X-RAY CLINICAL INDICATION: dyspnea A portable frontal view of the chest was obtained. COMPARISON: 09/12/2015 FINDINGS: The cardiac silhouette is within normal limits. No focal consolidation is seen within the lungs. There is no large pleural effusion or pneumothorax. The bony structures of the chest are unremarkable as visualized. [facility] Levar Kong MD - 02/15/2024 Patient Name: GANESH BUSH : 1955 [facility]#: [id number] Exam Date/Time: 02/15/2024 18:13 Procedure: XR CHEST 1 VIEW Ordering Provider: MALDONADO MANSUR Reason For Exam: dyspnea PORTABLE CHEST X-RAY CLINICAL INDICATION: dyspnea A portable frontal view of the chest was obtained. COMPARISON: 09/12/2015 FINDINGS: The cardiac silhouette is within normal limits. No focal consolidation is seen within the lungs. There is no large pleural effusion or pneumothorax. The bony structures of the chest are unremarkable as visualized. IMPRESSION: No acute cardiopulmonary disease. Report Dictated on Electronically Signed By: Levar Kong MD Electronically Signed Date/Time: 02/15/2024 6:16 PM EDT [facility] Radiology Study observation (narrative) Rodriguezselin Thierry erick XR Chest Single viewOrdered By: Levar Kong on 02-15-2024 [facility] AMB POC HEMOGLOBIN A1Con HbA1c (Bld) [Mass fraction] 9.4 % Abnormal - 5.7 % [facility] HbA1c (Bld) [Mass fraction]o n 10-01-2023 Interpretation and review of laboratory results Abnormal [facility] Radiology Study observation (narrative) Rodriguezselin Thierry erick Office Visiton 10-01-2023 Follow-up visit [id number] Ganesh Bush 1955 M Date Provider Department Center 10/01/2023 [facility] None Family History Problem Relation Age of Onset High Blood Pressure Mother Cancer Father Family Status - Relation Status Age at Mother Alive Father Daughter Alive Daughter Alive Level of Service:95239 DE OFFICE/OUTPATIENT ESTABLISHED MOD MDM 30 MIN Reason for Visit and Comments: Diabetes [34] - Follow up-over due for eye exam-last one approx 5 years ago Normal [facility] PATINSon 10-01-2023 PATINS Low Dose Correctio n Algorithm Glucose: Dose: LESS than 149 No Insulin 150-199 1 Unit 200-249 2 Units 250-299 3 Units 300-349 4 Units 350-400 5 Units Above 400 6 Units Normal [facility] Progress Noteon 10-01-2023 Progress Note [facility] ENDOCRINOLOGY BAR [address] [facility] [address] [facility] [address] Dept: [phone] Dept Loc: [phone] Visit type: Established patient Reason for Visit: Diabetes (Follow up-over due for eye exam-last one approx 5 years ago/) Assessment and Plan 1. Type 1 diabetes mellitus with hyperglycemia (HCC) - AMB POC HEMOGLOBIN A1C - insulin glargine (Lantus SoloStar) 100 UNIT/ML pen; Inject 14 Units under the skin Nightly., Starting e 10/01/2023, Until Katlyn 12/03/2024, Normal - insulin lispro (HumaLOG KWIKPEN) 100 UNIT/ML pen injection; Inject 16 Units under the skin in the morning and 16 Units at noon and 16 Units in the evening. Inject with meals. + sliding scale . TDD 63 Units /day., Starting e 10/01/2023, Until 10/10/2024, Normal - insulin pen needle 32G x 4 mm misc; Inject 1 each under the skin 4 times daily (before meals and nightly). Use as instructed, Starting e 10/01/2023, Until 03/29/2024, Normal 2. Essential hypertension - lisinopril 5 MG tablet; Take 1/2 (one-half) tablet by mouth once daily, Normal 3. Acquired hypothyroidism - T4, free - TSH Type 2 Diabetes mellitus with hyperglycemia and mcc insulin use: - Most Recent A1C is 9.4. Previous A1c 9.2% - Goal A1C <7% - Current regimen: Humalog 14 units TID before meals with SS of 1 unit for every 50 greater than 150. Lantus 16 units nightly - Current sugars: are significant for postmeal hyperglycemia and intermittent hypoglycemia - Recommend : Decrease Lantus 14 units once daily Increase Humalog to 16 units with meals + SS 1 Unit for every 50>150 Encourage patient to utilize sliding scale - Diabetes health screen - Micro albu. Patient has not been using sliding scale or using infrequently. - Microalbumin - up to date 01/2023 - Eye exam - external referral placed - Feet exam - Up to date - Hypoglycemia management discussed - advised to check sugars ac and hs using katharina cgm - submit sugar logs in 1 month - well controlled blood pressure on low dose Lisinopril 2. Mixed Hyperlipidemia - on rosuvastatin 40 mg - Triglycerides 205, LDL 146 from 04/2023 3. Primary Hypothyroidism: - On levothyroxine 125 mcg daily - check thyroid functions TSH 47.73 as of 05/27/2023, free T4 low at 0.7. Pt counseled about these recommendations. Pt voiced understanding. These recommendations made based on interpretation of available data (which may include FSBS, A1C, venous sampling, or data from pt recall). I reviewed: laboratory results reviewed: Yes radiographic reports reviewed: No I reviewed the radiographic images personally at the time of today's visit: No Pt was advised of the results. Records from outside facility/PCP office to be requested: Yes Scripts sent to pharmacy of pt choice: Yes No follow-ups on file. Subjective Diabetes Associated symptoms include fatigue. Pertinent negatives for diabetes include no chest pain, no polydipsia and no polyuria. PCP is Andrea Lr MD [facility] office visit: Before 12/13/2014 Last office visit: 05/27/2023 No significant Interval history Type of DM: 1 Onset :~2013 Current DM Medications: Humalog 14 units TID before meals with SS of 1 unit for every 50 greater than 150. Lantus 16 units nightly Complications: Cardiovascular -- No Statin Use -- Yes Retinopathy -- No Last KEVIN/Retina Eval: missed follow up at [facility] . Longer distance from home. Would like to be referred to ophthalmology in [place] Nephropathy -- No RONNIE/ARB Use -- Yes Polyneuropathy -- Yes Bilateral great toes Foot Exam: 11/13/2022 Obesity -- No Other -- No Pt complaints include: ran out of lantus for few months Since last office visit denies new health problems, denies hospitalizations, and denies surgeries. Pt feels their blood sugars are unchanged since NANCI. 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 Negative for unexpected weight change. Respiratory: Negative for shortness of breath. Cardiovascular: Negative for chest pain, palpitations and leg swelling. Gastrointestinal: Positive for nausea. Negative for constipation and diarrhea. Endocrine: Negative for polydipsia and polyuria. Skin: Negative for rash and wound. An entire ROS was performed at the time of this encounter. Unless noted above in the HPI, the ROS is negative. No Known Allergies Outpatient Medications Prior to Visit Medication Sig Dispense Refill aspirin 325 MG tablet Take 325 mg by mouth daily. C (more content not included)... [facility] 36on 09-27-2023 36 S: Patient spoke wit h [facility] nurse regarding needing a refill on his Lispro B: Onset of symptoms/concern last OV 05/27/23 States he is totally out as of lunch time. A: Pt is needing a refill on the Lispro Kwikpen Inject patient states he has been taking 12-14 to under the skin Morning Lunch and dinner. Script written on 05/27/23 Lispro (inject 8 units under the skin in the morning and 8 units noon and 8 units with meals and sliding scale. Max of 42 units a day R: Paging Dr. Partida at 16:[address] Partida Will send the script into the [facility] pharmacy. CAC RN called patient ans relayed the message an order would be sent tonight. Pharmacy closes at 19:00. Patient understands care advice. No further needs at this time. Patient instructed to call back with new or worsening symptoms. Reason for Disposition [1] Caller has NON-URGENT medicine question about med that PCP prescribed AND [2] triager unable to answer question Protocols used: Medication [facility] [address] [facility] HbA1c (Bld) [Mass fraction]o n 05-27-2023 Interpretation and review of laboratory results Abnormal [facility] Radiology Study observation (narrative) [facility] Laboratory - Hematology and Cell countson 05-27-2023 HbA1c (Bld) [Mass fraction] 9.2 % Abnormal - 5.7 % [facility] AMB POC HEMOGLOBIN A1Con HbA1c (Bld) [Mass fraction] 7.9 % Abnormal - 5.6 % [facility] HbA1c (Bld) [Mass fraction]o n 11-13-2022 Interpretation and review of laboratory results Abnormal [facility] POCT glucose meteron 023 Glucose [Mass/Vol] 175 mg/dL High 70 - 100 mg/dL [facility] Interpretation and review of laboratory results Abnormal [facility] Performed by: [facility], [address] [place] [address] CLIA ID: [id number] [facility] Glucose [Mass/Vol] 205 mg/dL High 70 - 100 mg/dL [facility] Interpretation and review of laboratory results Abnormal [facility] Performed by: [facility], [address] [place] [id number] CLIA ID: [id number] [facility] CBC W Auto Differential pane l (Bld)Ordered By: Alvin Schmitz on 08-17-2022 Basophils (Bld) [#/Vol] 0.1 10*3/uL 0.0 - 0.2 10*3/uL [facility] Basophils/100 WBC (Bld) 0.7 % 0.0 - 2.0 % [facility] Eosinophils (Bld) [#/Vol] 0.1 10*3/uL 0.0 - 0.5 10*3/uL [facility] Eosinophils/100 WBC (Bld) 0.6 % Low 1.0 - 6.0 % [facility] Erythrocyte distribution width (RBC) [Ratio] 13.3 % 11.5 - 14.5 % [facility] Hematocrit (Bld) [Volume fraction] 38.7 % Low 40.0 - 52.0 % [facility] Hemoglobin (Bld) [Mass/Vol] 13.2 g/dL 13.0 - 18.0 g/dL [facility] Interpretation and review of laboratory results Abnormal [facility] Lymphocytes (Bld) [#/Vol] 2.0 10*3/uL 1.0 - 4.3 10*3/uL [facility] Lymphocytes/100 WBC (Bld) 15.5 % Low 20.0 - 40.0 % [facility] MCH (RBC) [Entitic mass] 30.8 pg 26.0 - 34.0 pg [facility] MCHC (RBC) [Mass/Vol] 34.2 % 32.0 - 36.0 % [facility] MCV (RBC) [Entitic vol] 90.0 fL 80.0 - 98.0 fL [facility] Monocytes (Bld) [#/Vol] 0.9 10*3/uL High 0.0 - 0.8 10*3/uL [facility] Monocytes/100 WBC (Bld) 7.0 % 2.0 - 10.0 % [facility] Neutrophils (Bld) [#/Vol] 9.7 10*3/uL High 1.8 - 7.0 10*3/uL [facility] Neutrophils/100 WBC (Bld) 76.2 % 40.0 - 80.0 % [facility] Nucleated RBC/100 WBC (Bld) [Ratio] 0.0 % [facility] Platelet mean volume (Bld) [Entitic vol] 9.3 fL 7.4 - 12.4 fL [facility] Platelets (Bld) [#/Vol] 250 10*3/uL 140 - 440 10*3/uL [facility] RBC (Bld) [#/Vol] 4.30 10*6/uL Low 4.40 - 5.9 0 10*6/uL [facility] WBC (Bld) [#/Vol] 12.7 10*3/uL High 3.6 - 10.7 10*3/uL [facility] Comprehensive metabolic 1998 panelon 08-17-2022 Albumin [Mass/Vol] 3.5 g/dL 3.5 - 5.0 g/dL [facility] ALP [Catalytic activity/Vol] 94 U/L 38 - 126 U/L [facility] ALT [Catalytic activity/Vol] 16 U/L 0 - 49 U/L [facility] Anion gap [Moles/Vol] 4 mmol/L 3 - 13 mmol/L [facility] AST [Catalytic activity/Vol] 25 U/L 15 - 46 U/L [facility] Bilirubin [Mass/Vol] 0.5 mg/dL 0.2 - 1 .3 mg/dL [facility] Calcium [Mass/Vol] 8.6 mg/dL 8.4 - 10. 4 mg/dL [facility] Chloride [Moles/Vol] 104 mmol/L 98 - 10 7 mmol/L [facility] CO2 [Moles/Vol] 24 mmol/L 22 - 30 mmol/L [facility] Creatinine [Mass/Vol] 0.56 mg/dL Low 0.66 - 1.25 mg/dL [facility] GFR/1.73 sq M.predicted MDRD (S/P/Bld) [Vol rate/Area] - PINF [facility] Comment on above: Calculation based on the Chronic Kidney Disease Epidemiology Collaboration (CKD-EPI) equation refit without adjustment for race Glucose [Mass/Vol] 316 mg/dL High 70 - 100 mg/dL [facility] Interpretation and review of laboratory results Abnormal [facility] Potassium [Moles/Vol] 3.8 mmol/L 3.5 - 5.1 mmol/L [facility] Protein [Mass/Vol] 6.2 g/dL Low 6.3 - 8.2 g/dL [facility] Sodium [Moles/Vol] 132 mmol/L Low 135 - 145 mmol/L [facility] Urea nitrogen [Mass/Vol] 15 mg/dL 9 - 20 mg/dL [facility] POCT glucose meteron 023 Glucose [Mass/Vol] 95 mg/dL 70 - 100 mg/dL [facility] Interpretation and review of laboratory results Normal [facility] Performed by: [facility], [address] [place] [address] CLIA ID: [id number] [facility] Glucose [Mass/Vol] 222 mg/dL High 70 - 100 mg/dL [facility] Interpretation and review of laboratory results Abnormal [facility] Performed by: [facility], [address] [place] [address] CLIA ID: [id number] [facility] Glucose [Mass/Vol] 430 mg/dL High 70 - 100 mg/dL [facility] Interpretation and review of laboratory results Abnormal [facility] Performed by: [facility], [address] [place] [address] CLIA ID: [id number] [facility] Glucose [Mass/Vol] 346 mg/dL High 70 - 100 mg/dL [facility] Interpretation and review of laboratory results Abnormal [facility] Performed by: [facility], [address] [facility] [address] CLIA ID: [id number] [facility] Glucose [Mass/Vol] 274 mg/dL High 70 - 100 mg/dL [facility] Interpretation and review of laboratory results Abnormal [facility] Performed by: [facility], [address] [facility] [address] CLIA ID: [id number] [facility] CBC W Auto Differential pane l (Bld)on 08-16-2022 Basophils (Bld) [#/Vol] 0.1 10*3/uL 0.0 - 0.2 10*3/uL [facility] Basophils/100 WBC (Bld) 0.4 % 0.0 - 2.0 % [facility] Eosinophils (Bld) [#/Vol] 0.0 10*3/uL 0.0 - 0.5 10*3/uL [facility] Eosinophils/100 WBC (Bld) 0.0 % Low 1.0 - 6.0 % [facility] Erythrocyte distribution width (RBC) [Ratio] 13.3 % 11.5 - 14.5 % [facility] Hematocrit (Bld) [Volume fraction] 41.8 % 40.0 - 52.0 % [facility] Hemoglobin (Bld) [Mass/Vol] 13.9 g/dL 13.0 - 18.0 g/dL [facility] Interpretation and review of laboratory results Abnormal [facility] Lymphocytes (Bld) [#/Vol] 1.5 10*3/uL 1.0 - 4.3 10*3/uL [facility] Lymphocytes/100 WBC (Bld) 6.9 % Low 20.0 - 40.0 % [facility] MCH (RBC) [Entitic mass] 30.2 pg 26.0 - 34.0 pg [facility] MCHC (RBC) [Mass/Vol] 33.2 % 32.0 - 36.0 % [facility] MCV (RBC) [Entitic vol] 90.8 fL 80.0 - 98.0 fL [facility] Monocytes (Bld) [#/Vol] 0.8 10*3/uL 0.0 - 0.8 10*3/uL [facility] Monocytes/100 WBC (Bld) 4.0 % 2.0 - 10.0 % [facility] Neutrophils (Bld) [#/Vol] 18.7 10*3/uL High 1.8 - 7.0 10*3/uL [facility] Neutrophils/100 WBC (Bld) 88.7 % High 40.0 - 80.0 % [facility] Nucleated RBC/100 WBC (Bld) [Ratio] 0.0 % [facility] Platelet mean volume (Bld) [Entitic vol] 9.4 fL 7.4 - 12.4 fL [facility] Platelets (Bld) [#/Vol] 288 10*3/uL 140 - 440 10*3/uL [facility] RBC (Bld) [#/Vol] 4.61 10*6/uL 4.40 - 5.9 0 10*6/uL [facility] WBC (Bld) [#/Vol] 21.1 10*3/uL High 3.6 - 10.7 10*3/uL [facility] Comprehensive metabolic 1998 panelon 08-16-2022 Albumin [Mass/Vol] 4.1 g/dL 3.5 - 5.0 g/dL [facility] ALP [Catalytic activity/Vol] 111 U/L 38 - 126 U/L [facility] ALT [Catalytic activity/Vol] 16 U/L 0 - 49 U/L [facility] Anion gap [Moles/Vol] 10 mmol/L 3 - 13 mmol/L [facility] AST [Catalytic activity/Vol] 24 U/L 15 - 46 U/L [facility] Bilirubin [Mass/Vol] 0.5 mg/dL 0.2 - 1 .3 mg/dL [facility] Calcium [Mass/Vol] 9.1 mg/dL 8.4 - 10. 4 mg/dL [facility] Chloride [Moles/Vol] 106 mmol/L 98 - 10 7 mmol/L [facility] CO2 [Moles/Vol] 18 mmol/L Low 22 - 30 mmol/L [facility] Creatinine [Mass/Vol] 0.62 mg/dL Low 0.66 - 1.25 mg/dL [facility] GFR/1.73 sq M.predicted MDRD (S/P/Bld) [Vol rate/Area] - PINF [facility] Comment on above: Calculation based on the Chronic Kidney Disease Epidemiology Collaboration (CKD-EPI) equation refit without adjustment for race Glucose [Mass/Vol] 352 mg/dL High 70 - 100 mg/dL [facility] Interpretation and review of laboratory results Abnormal [facility] Potassium [Moles/Vol] 4.0 mmol/L 3.5 - 5.1 mmol/L [facility] [employer] Protein [Mass/Vol] 7.0 g/dL 6.3 - 8.2 g/dL [facility] Sodium [Moles/Vol] 133 mmol/L Low 135 - 145 mmol/L [facility] Urea nitrogen [Mass/Vol] 13 mg/dL 9 - 20 mg/dL [facility] POCT glucose meteron 023 Glucose [Mass/Vol] 88 mg/dL 70 - 100 mg/dL [facility] Interpretation and review of laboratory results Normal [facility] Performed by: [facility], [address] [place] [address] CLIA ID: [id number] [facility] Glucose [Mass/Vol] 249 mg/dL High 70 - 100 mg/dL [facility] Interpretation and review of laboratory results Abnormal [facility] Performed by: [facility], [address] [place] [address] CLIA ID: [id number] [facility] Glucose [Mass/Vol] 265 mg/dL High 70 - 100 mg/dL [facility] Interpretation and review of laboratory results Abnormal [facility] Performed by: [facility], [address] [place] [address] CLIA ID: [id number] [facility] Glucose [Mass/Vol] 362 mg/dL High 70 - 100 mg/dL [facility] Interpretation and review of laboratory results Abnormal [facility] Performed by: [facility], [address] [place] [address] CLIA ID: [id number] [facility] [employer] CBC W Auto Differential pane l (Bld)Ordered By: Reid Frias on 08-15-2022 Basophils (Bld) [#/Vol] 0.1 10*3/uL 0.0 - 0.2 10*3/uL [facility] Basophils/100 WBC (Bld) 0.6 % 0.0 - 2.0 % [facility] Eosinophils (Bld) [#/Vol] 0.0 10*3/uL 0.0 - 0.5 10*3/uL [facility] Eosinophils/100 WBC (Bld) 0.0 % Low 1.0 - 6.0 % [facility] Erythrocyte distribution width (RBC) [Ratio] 13.4 % 11.5 - 14.5 % [facility] Hematocrit (Bld) [Volume fraction] 40.6 % 40.0 - 52.0 % [facility] Hemoglobin (Bld) [Mass/Vol] 13.7 g/dL 13.0 - 18.0 g/dL [facility] Interpretation and review of laboratory results Abnormal [facility] Lymphocytes (Bld) [#/Vol] 1.3 10*3/uL 1.0 - 4.3 10*3/uL [facility] Lymphocytes/100 WBC (Bld) 9.2 % Low 20.0 - 40.0 % [facility] MCH (RBC) [Entitic mass] 30.5 pg 26.0 - 34.0 pg [facility] MCHC (RBC) [Mass/Vol] 33.7 % 32.0 - 36.0 % [facility] MCV (RBC) [Entitic vol] 90.6 fL 80.0 - 98.0 fL [facility] Monocytes (Bld) [#/Vol] 0.5 10*3/uL 0.0 - 0.8 10*3/uL [facility] Monocytes/100 WBC (Bld) 3.6 % 2.0 - 10.0 % [facility] Neutrophils (Bld) [#/Vol] 12.6 10*3/uL High 1.8 - 7.0 10*3/uL [facility] Neutrophils/100 WBC (Bld) 86.6 % High 40.0 - 80.0 % [facility] Nucleated RBC/100 WBC (Bld) [Ratio] 0.0 % [facility] Platelet mean volume (Bld) [Entitic vol] 9.6 fL 7.4 - 12.4 fL [facility] Platelets (Bld) [#/Vol] 304 10*3/uL 140 - 440 10*3/uL [facility] RBC (Bld) [#/Vol] 4.48 10*6/uL 4.40 - 5.9 0 10*6/uL [facility] WBC (Bld) [#/Vol] 14.5 10*3/uL High 3.6 - 10.7 10*3/uL [facility] Comprehensive metabolic 1998 panelOrdered By: Osei Lynch on 08-15-2022 Albumin [Mass/Vol] 4.4 g/dL 3.5 - 5.0 g/dL [facility] ALP [Catalytic activity/Vol] 120 U/L 38 - 126 U/L [facility] ALT [Catalytic activity/Vol] 17 U/L 0 - 49 U/L [facility] Anion gap [Moles/Vol] 15 mmol/L High 3 - 13 mmol/L [facility] AST [Catalytic activity/Vol] 26 U/L 15 - 46 U/L [facility] Bilirubin [Mass/Vol] 0.7 mg/dL 0.2 - 1 .3 mg/dL [facility] Calcium [Mass/Vol] 8.8 mg/dL 8.4 - 10. 4 mg/dL [facility] Chloride [Moles/Vol] 103 mmol/L 98 - 10 7 mmol/L [facility] CO2 [Moles/Vol] 20 mmol/L Low 22 - 30 mmol/L [facility] Creatinine [Mass/Vol] 0.65 mg/dL Low 0.66 - 1.25 mg/dL [facility] GFR/1.73 sq M.predicted MDRD (S/P/Bld) [Vol rate/Area] - PINF [facility] Comment on above: Calculation based on the Chronic Kidney Disease Epidemiology Collaboration (CKD-EPI) equation refit without adjustment for race Glucose [Mass/Vol] 334 mg/dL High 70 - 100 mg/dL [facility] Interpretation and review of laboratory results Abnormal [facility] Potassium [Moles/Vol] 4.0 mmol/L 3.5 - 5.1 mmol/L [facility] Protein [Mass/Vol] 7.3 g/dL 6.3 - 8.2 g/dL [facility] Sodium [Moles/Vol] 139 mmol/L 135 - 145 mmol/L [facility] Urea nitrogen [Mass/Vol] 12 mg/dL 9 - 20 mg/dL [facility] Glucose (Bld) [Mass/Vol]on 0 4-19-2023 Glucose [Mass/Vol] 445 mg/dL High 70 - 100 mg/dL [facility] Interpretation and review of laboratory results Abnormal [facility] MR Abdomen WO contraston Patient Name: GANESH BUSH : 1955 [facility]#: [id number] Exam Date/Time: 08/15/2022 11:46 Procedure: MR ABDOMEN WO CONTRAST Ordering Provider: WILSON JEFFREY Reason For Exam: Dilated CBD MRI OF THE ABDOMEN WITH MRCP: CLINICAL INDICATION: Dilated common bile duct. Abdominal pain. TECHNIQUE: Transaxial and coronal T1 and T2 breath hold along with transaxial and coronal gradient echo sequences were performed through the abdomen. Thick section multi-angle and thin section multi-slice MRCP sequences were performed through the abdomen as well. Maximum intensity projection 3-D images were created with the latter data set on an independent workstation. COMPARISON: CT and ultrasound 2022 FINDINGS: Limitations: Respiratory motion artifact on multiple sequences. Liver: Normal in size and contour. Hepatic steatosis with more focal fatty sparing deposition to the falciform ligament. No discrete lesions on this unenhanced examination. Gallbladder/biliary tree: 5 mm ovoid filling defect in the region the gallbladder neck likely corresponding to one of gallbladder polyps demonstrated on ultrasound. Gallbladder is not abnormally dilated. No intrahepatic biliary ductal dilatation. Common bile duct is slightly dilated measuring up to 11 mm with some degree of distal tapering. Best seen on coronal sequence 601 image 16 and 17, apparent layering filling defects involving the distal common bile duct. This is also seen on axial sequence 1101 image 21, nonspecific possibly a 2-D MRCP sequence 1301 image one evaluation is limited by motion. Pancreas: Pancreas appears somewhat atrophic. No peripancreatic fluid collection. No pancreatic ductal dilatation. Spleen: Appears within normal limits. Adrenal glands: No mass or nodule. Kidneys: No obstructive uropathy. Perinephric stranding/fluid bilaterally. Additional findings: Small sliding-type hiatal hernia with apparent asymmetric wall thickening involving the posterior gastric fundus. Colonic diverticula. No ascites or focal fluid collection. No suspicious bulky adenopathy. Mild degenerative spondylosis in the visualized spine. [facility] Denis Gilbert MD - 08/15/2022 Patient Name: GANESH BUSH : 1955 [facility]#: [id number] Exam Date/Time: 08/15/2022 11:46 Procedure: MR ABDOMEN WO CONTRAST Ordering Provider: WILSON JEFFREY Reason For Exam: Dilated CBD MRI OF THE ABDOMEN WITH MRCP: CLINICAL INDICATION: Dilated common bile duct. Abdominal pain. TECHNIQUE: Transaxial and coronal T1 and T2 breath hold along with transaxial and coronal gradient echo sequences were performed through the abdomen. Thick section multi-angle and thin section multi-slice MRCP sequences were performed through the abdomen as well. Maximum intensity projection 3-D images were created with the latter data set on an independent workstation. COMPARISON: CT and ultrasound 2022 FINDINGS: Limitations: Respiratory motion artifact on multiple sequences. Liver: Normal in size and contour. Hepatic steatosis with more focal fatty sparing deposition to the falciform ligament. No discrete lesions on this unenhanced examination. Gallbladder/biliary tree: 5 mm ovoid filling defect in the region the gallbladder neck likely corresponding to one of gallbladder polyps demonstrated on ultrasound. Gallbladder is not abnormally dilated. No intrahepatic biliary ductal dilatation. Common bile duct is slightly dilated measuring up to 11 mm with some degree of distal tapering. Best seen on coronal sequence 601 image 16 and 17, apparent layering filling defects involving the distal common bile duct. This is also seen on axial sequence 1101 image 21, nonspecific possibly a 2-D MRCP sequence 1301 image one evaluation is limited by motion. Pancreas: Pancreas appears somewhat atrophic. No peripancreatic fluid collection. No pancreatic ductal dilatation. Spleen: Appears within normal limits. Adrenal glands: No mass or nodule. Kidneys: No obstructive uropathy. Perinephric stranding/fluid bilaterally. Additional findings: Small sliding-type hiatal hernia with apparent asymmetric wall thickening involving the posterior gastric fundus. Colonic diverticula. No ascites or focal fluid collection. No suspicious bulky adenopathy. Mild degenerative spondylosis in the visualized spine. IMPRESSION: 1. Respiratory motion artifact limits evaluation to some extent. 2. Mild dilatation of the common bile duct which demonstrates some degree of distal tapering. Suspicion of intraluminal filling defect/debris within the common bile duct. Consider correlation with ERCP. 3. Gallbladder polyps better seen on ultrasound. 4. Hepatic steatosis. 5. Small sliding-type hiatal hernia with apparent asymmetric wall thickening, posterior gastric fundus. Report Dictated on Electronically Signed By: Sorin Gilbert Electronically Signed Date/Time: 08/15/2022 3:43 PM EDT [facility] Radiology Study observation (narrative) Yuliana Guadarrama alth MR Abdomen WO contrastOrdere d By: Denis Gilbert on 08-15-2022 [facility] [employer] Work Phone: No Panel Informationon 08-15 Performed by: [facility], [address] [facility] [address] CLIA ID: [id number] [facility] [employer] [facility] POCT glucose meteron 023 Glucose [Mass/Vol] 333 mg/dL High 70 - 100 mg/dL [facility] [employer] Interpretation and review of laboratory results Abnormal [facility] [employer] Performed by: [facility], [address] [place] [address] CLIA ID: [id number] [facility] [employer] [facility] Glucose [Mass/Vol] 207 mg/dL High 70 - 100 mg/dL [facility] Glucose [Mass/Vol] 88 mg/dL 70 - 100 mg/dL [facility] [employer] Interpretation and review of laboratory results Abnormal [facility] [employer] Interpretation and review of laboratory results Normal [facility] [employer] Glucose [Mass/Vol] 71 mg/dL 70 - 100 mg/dL [facility] Interpretation and review of laboratory results Normal [facility] [employer] Performed by: [facility], [address] [place], [place] [id number] CLIA ID: [id number] [facility] [employer] [facility] Health Glucose [Mass/Vol] mg/dL High 70 - 100 mg/dL [facility] [employer] Comment on above: Caregiver Notified; Interpretation and review of laboratory results Abnormal [facility] [employer] Performed by: [employer] [facility], [address] [facility] [address] CLIA ID: [id number] [facility] [employer] [facility] Glucose [Mass/Vol] mg/dL High 70 - 100 mg/dL [facility] [employer] Comment on above: Result Not Confirmed ; Interpretation and review of laboratory results Abnormal [facility] [employer] Performed by: [facility], [address] [facility] [address] CLIA ID: [id number] [facility] Beta Hydroxybutyrateon 08-14 Beta hydroxybutyrate [Mass/Vol] 22.50 mg/dL High 0.20 - 2.81 mg/dL [facility] Interpretation and review of laboratory results Abnormal [facility] CBC W Auto Differential pane l (Bld)Ordered By: Millie Walker on 08-14-2022 Basophils (Bld) [#/Vol] 0.4 10*3/uL High 0.0 - 0.2 10*3/uL [facility] Basophils/100 WBC (Bld) 2.2 % High 0.0 - 2.0 % [facility] Eosinophils (Bld) [#/Vol] 0.2 10*3/uL 0.0 - 0.5 10*3/uL [facility] Eosinophils/100 WBC (Bld) 1.4 % 1.0 - 6.0 % [facility] Erythrocyte distribution width (RBC) [Ratio] 13.3 % 11.5 - 14.5 % [facility] Hematocrit (Bld) [Volume fraction] 44.2 % 40.0 - 52.0 % [facility] Hemoglobin (Bld) [Mass/Vol] 15.0 g/dL 13.0 - 18.0 g/dL [facility] Interpretation and review of laboratory results Abnormal [facility] Lymphocytes (Bld) [#/Vol] 0.7 10*3/uL Low 1.0 - 4.3 10*3/uL [facility] Lymphocytes/100 WBC (Bld) 4.4 % Low 20.0 - 40.0 % [facility] MCH (RBC) [Entitic mass] 30.5 pg 26.0 - 34.0 pg [facility] MCHC (RBC) [Mass/Vol] 34.0 % 32.0 - 36.0 % [facility] MCV (RBC) [Entitic vol] 89.5 fL 80.0 - 98.0 fL [facility] Monocytes (Bld) [#/Vol] 0.3 10*3/uL 0.0 - 0.8 10*3/uL [facility] Monocytes/100 WBC (Bld) 1.6 % Low 2.0 - 10.0 % [facility] Neutrophils (Bld) [#/Vol] 14.4 10*3/uL High 1.8 - 7.0 10*3/uL [facility] [employer] Neutrophils/100 WBC (Bld) 90.4 % High 40.0 - 80.0 % [facility] [employer] Nucleated RBC/100 WBC (Bld) [Ratio] 0.0 % [facility] [employer] Platelet mean volume (Bld) [Entitic vol] 9.6 fL 7.4 - 12.4 fL [facility] [employer] Platelets (Bld) [#/Vol] 288 10*3/uL 140 - 440 10*3/uL [facility] [employer] RBC (Bld) [#/Vol] 4.94 10*6/uL 4.40 - 5.9 0 10*6/uL [facility] [employer] WBC (Bld) [#/Vol] 16.0 10*3/uL High 3.6 - 10.7 10*3/uL [facility] [employer] [facility] CT Abdomen and Pelvis W cont rast Tristen 08-14-2022 Small hiatal hernia with suggestion of asymmetric eccentric wall thickening in the gastric fundus. Correlation with direct visualization is recommended. Soft tissue thickening in the bilateral inferior anterior abdominal wall. Correlation with physical exam is recommended. Questionable gallbladder wall thickening with mild dilatation of the common bile duct. Report Dictated on Electronically Signed By: Victor Manuel Hdz Electronically Signed Date/Time: 08/14/2022 11:24 AM [facility]Y [facility] Patient Name: GANESH BUSH : 1955 Exam Date/Time: 08/14/2022 10:49 Procedure: CT ABDOMEN PELVIS W CONTRAST Ordering Provider: MARIE J Reason For Exam: Nausea/vomiting CT ABDOMEN AND PELVIS WITH CONTRAST CLINICAL INDICATION: Nausea and vomiting TECHNIQUE: Transaxial sequence through the abdomen and pelvis with 3 mm reconstruction following oral contrast with dynamic intravenous infusion of 75 mL of 370 mg% contrast media. Coronal and sagittal reconstructions included. Dose reduction was employed with automated exposure control. COMPARISON: 05/11/2015 CT abdomen and pelvis FINDINGS: Lower chest: Mild bibasilar atelectasis without evidence of pleural effusion or focal consolidation. The heart is normal in size without evidence of pericardial effusion. Small hiatal hernia. Liver: The liver is normal in size. Focal fatty infiltration is noted at the falciform ligament. Biliary tree: Mild dilatation of the common bile duct measuring 1.1 cm in diameter. No intrahepatic biliary dilatation. Gallbladder: Questionable gallbladder wall thickening without evidence of cholelithiasis. Pancreas: The pancreas appears unremarkable without evidence of ductal dilatation or mass. Spleen: The spleen is normal in size. Adrenals: Bilateral adrenal glands appear normal. Kidneys: The bilateral kidneys are normal in size and enhance symmetrically. No hydroureteronephrosis or nephroureterolithiasis. Bladder: The urinary bladder appears normal without evidence of wall thickening. Pelvic organs/viscera: No mass identified Bowel: Suggestion of asymmetric wall thickening gastric fundus. The small and large bowel are normal in caliber without evidence of wall thickening. Colonic diverticulosis. The appendix appears unremarkable. Retroperitoneal/mesente vinay lymphadenopathy: There is no free fluid, loculated fluid collection, or free air. No evidence of abdominal pelvic lymphadenopathy. Aorta: There is no aneurysmal dilatation of the abdominal aorta. Mild atherosclerotic calcifications of the abdominal aorta and its branches. Abdominal wall: Soft tissue thickening in the bilateral anterior abdominal wall. Bones: No suspicious osseous lesions. Mild discogenic degenerative changes of the thoracolumbar spine. [facility] Victor Manuel Hdz MD - 08/14/2022 [facility] Name[facility] : 1955 [id number] Exam Date/Time: 08/14/2022 10:49 Procedure: CT ABDOMEN PELVIS W CONTRAST Ordering Provider: MARIE J Reason For Exam: Nausea/vomiting CT ABDOMEN AND PELVIS WITH CONTRAST CLINICAL INDICATION: Nausea and vomiting TECHNIQUE: Transaxial sequence through the abdomen and pelvis with 3 mm reconstruction following oral contrast with dynamic intravenous infusion of 75 mL of 370 mg% contrast media. Coronal and sagittal reconstructions included. Dose reduction was employed with automated exposure control. COMPARISON: 05/11/2015 CT abdomen and pelvis FINDINGS: Lower chest: Mild bibasilar atelectasis without evidence of pleural effusion or focal consolidation. The heart is normal in size without evidence of pericardial effusion. Small hiatal hernia. Liver: The liver is normal in size. Focal fatty infiltration is noted at the falciform ligament. Biliary tree: Mild dilatation of the common bile duct measuring 1.1 cm in diameter. No intrahepatic biliary dilatation. Gallbladder: Questionable gallbladder wall thickening without evidence of cholelithiasis. Pancreas: The pancreas appears unremarkable without evidence of ductal dilatation or mass. Spleen: The spleen is normal in size. Adrenals: Bilateral adrenal glands appear normal. Kidneys: The bilateral kidneys are normal in size and enhance symmetrically. No hydroureteronephrosis or nephroureterolithiasis. Bladder: The urinary bladder appears normal without evidence of wall thickening. Pelvic organs/viscera: No mass identified Bowel: Suggestion of asymmetric wall thickening gastric fundus. The small and large bowel are normal in caliber without evidence of wall thickening. Colonic diverticulosis. The appendix appears unremarkable. Retroperitoneal/mesente vinay lymphadenopathy: There is no free fluid, loculated fluid collection, or free air. No evidence of abdominal pelvic lymphadenopathy. Aorta: There is no aneurysmal dilatation of the abdominal aorta. Mild atherosclerotic calcifications of the abdominal aorta and its branches. Abdominal wall: Soft tissue thickening in the bilateral anterior abdominal wall. Bones: No suspicious osseous lesions. Mild discogenic degenerative changes of the thoracolumbar spine. IMPRESSION: Small hiatal hernia with suggestion of asymmetric eccentric wall thickening in the gastric fundus. Correlation with direct visualization is recommended. Soft tissue thickening in the bilateral inferior anterior abdominal wall. Correlation with physical exam is recommended. Questionable gallbladder wall thickening with mild dilatation of the common bile duct. Report Dictated on Electronically Signed By: Victor Manuel Hdz Electronically Signed Date/Time: 08/14/2022 11:24 AM EDT [facility] Radiology Study observation (narrative) [facility] alth CT Abdomen and Pelvis W cont rast IVOrdered By: Victor Manuel Hdz on 08-14-2022 [facility] [employer] Work Phone: Comprehensive metabolic 1998 panelon 08-14-2022 Albumin [Mass/Vol] 4.8 g/dL 3.5 - 5.0 g/dL [facility] [employer] ALP [Catalytic activity/Vol] 110 U/L 38 - 126 U/L [facility] ALT [Catalytic activity/Vol] 18 U/L 0 - 49 U/L [facility] Anion gap [Moles/Vol] 10 mmol/L 3 - 13 mmol/L [facility] AST [Catalytic activity/Vol] 37 U/L 15 - 46 U/L [facility] Bilirubin [Mass/Vol] 1.0 mg/dL 0.2 - 1 .3 mg/dL [facility] Calcium [Mass/Vol] 9.6 mg/dL 8.4 - 10. 4 mg/dL [facility] Chloride [Moles/Vol] 102 mmol/L 98 - 10 7 mmol/L [facility] CO2 [Moles/Vol] 23 mmol/L 22 - 30 mmol/L [facility] Creatinine [Mass/Vol] 0.77 mg/dL 0.66 - 1.25 mg/dL [facility] GFR/1.73 sq M.predicted MDRD (S/P/Bld) [Vol rate/Area] - PINF [facility] Comment on above: Calculation based on the Chronic Kidney Disease Epidemiology Collaboration (CKD-EPI) equation refit without adjustment for race Glucose [Mass/Vol] 380 mg/dL High 70 - 100 mg/dL [facility] Interpretation and review of laboratory results Abnormal [facility] Potassium [Moles/Vol] 5.1 mmol/L 3.5 - 5.1 mmol/L [facility] Protein [Mass/Vol] 8.4 g/dL High 6.3 - 8.2 g/dL [facility] Sodium [Moles/Vol] 135 mmol/L 135 - 145 mmol/L [facility] Urea nitrogen [Mass/Vol] 12 mg/dL 9 - 20 mg/dL [facility] Specimen slightly hemolyzed. Interpret with caution. [facility] ECG 12 leadon 08-14-2022 Heart rate 96 /min bpm [facility] P [place] 43 degrees [facility] DE Interval 162 ms [facility] QRS [place] -5 degrees [facility] QRSD Interval [address] [facility]val 365 ms [facility] QTC Interval 462 ms [facility] T Wave [place] 59 degrees [facility] EKG demonstrates nor mal sinus rhythm with a normal axis, normal DE intervals, and normal QTC. No ST elevation or T-wave inversions. Electronically Signed On 08-14-2022 12:43:37 EDT by Frederic Ware MD - 08/14/2022 IMPRESSION: EKG demonstrates normal sinus rhythm with a normal axis, normal DE intervals, and normal QTC. No ST elevation or T-wave inversions. Electronically Signed On 08-14-2022 12:43:37 EDT by Danika Marie [facility] Glucose (Bld) [Mass/Vol]on 0 08-14-2022 Glucose [Mass/Vol] 333 mg/dL High 70 - 100 mg/dL [facility] Interpretation and review of laboratory results Abnormal [facility] HbA1c (Bld) [Mass fraction]o n 08-14-2022 Glucose [Mass/Vol] 169 mg/dL [facility] HbA1c (Bld) [Mass/Vol] 7.5 % High NINF - 5.7 % [facility] Comment on above: Normal less than 5.7 % Prediabetes 5.7% to 6.4% Diabetes 6.5% or higher --HgbA1C levels may not be accurate in patients who have renal disease, received recent blood transfusions, are anemic, or who have dyshemoglobinemia. Interpretation and review of laboratory results Abnormal [facility] Lactic acid, sepsis, with re flex if elevatedon 08-14-2022 Interpretation and review of laboratory results Normal [facility] Lactate [Moles/Vol] 1.8 mmol/L 0.7 - 2. 0 mmol/L [facility] Lipaseon 08-14-2022 Lipase [Catalytic activity/Vol] 62 U/L 23 - 300 U/L [facility] Lipase [Catalytic activity/V ol]on 08-14-2022 Interpretation and review of laboratory results Normal [facility] No Panel Informationon 08-14 [facility] POCT glucose meteron 023 Glucose [Mass/Vol] 220 mg/dL High 70 - 100 mg/dL [facility] Interpretation and review of laboratory results Abnormal [facility] Performed by: [facility], [address] [place] [id number] CLIA ID: [id number] [facility] Glucose [Mass/Vol] 308 mg/dL High 70 - 100 mg/dL [facility] Interpretation and review of laboratory results Abnormal [facility] Performed by: [facility], [address] [place] [id number] CLIA ID: [id number] [facility] Glucose [Mass/Vol] mg/dL High 70 - 100 mg/dL [facility] Comment on above: Caregiver Notified; Interpretation and review of laboratory results Abnormal [facility] Performed by: [facility], [address] [place] [id number] CLIA ID: [id number] [facility] POCT venous blood gason 07-28 Base excess Calc (BldV) [Moles/Vol] 1.0 mmol/L -3 - 3 mmol/L [facility] CO2 (BldV) [Partial pressure] 34.9 mm[Hg] Low [facility] CO2 [Moles/Vol] 25.5 mmol/L 24.0 - 28.0 mmol/L [facility] FIO2 21 [facility] Comment on above: Performed by CLIA ID : [id number] [place], [place] ?Device: [id number] Manager Company ID: [id number] HCO3 (Bld) [Moles/Vol] 24.4 mmol/L 23.0 - 27.0 mmol/L [facility] Interpretation and review of laboratory results Abnormal [facility] Oxygen (BldV) [Partial pressure] Low [facility] Oxygen saturation in Venous blood 58.7 % Low 60.0 - 80.0 % [facility] pH (BldV) 7.454 [pH] High 7.330 - 7.430 pH [facility] Performed by: [facility], [address] [place] [address] CLIA ID: [id number] [facility] Procalcitonin Teston 023 Procalcitonin [Mass/Vol] 0.05 ng/mL 0.00 - 0.09 ng/mL [facility] Procalcitonin [Mass/Vol]on 0 08-14-2022 Interpretation and review of laboratory results Normal [facility] PCT <0.50 = Low risk of severe sepsis and/or septic shock. PCT >2.00 = High risk of severe sepsis and/or septic shock. [facility] SARS-CoV-2, Flu A/B, and RSV Comboon 08-14-2022 FLUAV RNA GREGORIO+probe Ql (Resp) Not detected Not Detected [facility] FLUBV RNA GREGORIO+probe Ql (Resp) Not detected Not Detected [facility] Interpretation and review of laboratory results Normal [facility] RSV RNA GREGORIO+probe Ql (Resp) Not detected Not Detected [facility] SARS-CoV-2 (COVID-19) RNA GREGORIO+probe Ql (Resp) Not detected Not Detected [employer] SARS-CoV-2 (COVID-19) RNA GREGORIO+probe Ql (Unsp spec) Methodology: real-time, RT-PCR The SARS-CoV-2, Flu A/B, and RSV Combo assay is intended for in vitro diagnostic use under the FDA Emergency Use Authorization (EUA). This test has not been FDA cleared or approved. In compliance with this authorization, please visit www.fda.gov/media/58938 5/download or www.fda.gov/media/58058 6/download to access the applicable information sheets. [employer] US Abdomen limitedon 023 The common bile duct is dilated measuring 9 mm in diameter. Two gallbladder polyps versus adherent stones. Follow-up ultrasound in six months is recommended. Report Dictated on Electronically Signed By: Victor Manuel Hdz Electronically Signed Date/Time: 08/14/2022 2:11 PM EDT [facility] Patient Name: GANESH BUSH : 1955 Exam Date/Time: 08/14/2022 13:41 Procedure: US ABDOMEN LIMITED Ordering Provider: MARIE J Reason For Exam: RUQ abdominal pain, no prior imaging ULTRASOUND ABDOMEN LIMITED CLINICAL INDICATION: Right upper quadrant pain TECHNIQUE: Ultrasound of the right upper quadrant including color flow imaging. Limited evaluation secondary to patient cooperation. COMPARISON: 01/05/2016 abdominal ultrasound FINDINGS: Liver: Normal echogenicity, size and contours. No mass identified. Gallbladder: Sludge is identified within the gallbladder. The gallbladder is nondistended without evidence of pericholecystic fluid or wall thickening. Sonographic Jameson sign is reported as negative. A 2 mm and 5 mm polyp is seen within the gallbladder. Bile ducts: No intrahepatic or extrahepatic biliary dilatation. Common bile duct: 9 mm Pancreas: Obscured by bowel gas Right kidney: No pelvicalyceal dilatation Ascites: None [facility] Victor Manuel Hdz MD - 08/14/2022 Patient Name: GANESH BUSH : 1955 Exam Date/Time: 08/14/2022 13:41 Procedure: US ABDOMEN LIMITED Ordering Provider: MARIE J Reason For Exam: RUQ abdominal pain, no prior imaging ULTRASOUND ABDOMEN LIMITED CLINICAL INDICATION: Right upper quadrant pain TECHNIQUE: Ultrasound of the right upper quadrant including color flow imaging. Limited evaluation secondary to patient cooperation. COMPARISON: 01/05/2016 abdominal ultrasound FINDINGS: Liver: Normal echogenicity, size and contours. No mass identified. Gallbladder: Sludge is identified within the gallbladder. The gallbladder is nondistended without evidence of pericholecystic fluid or wall thickening. Sonographic Jameson sign is reported as negative. A 2 mm and 5 mm polyp is seen within the gallbladder. Bile ducts: No intrahepatic or extrahepatic biliary dilatation. Common bile duct: 9 mm Pancreas: Obscured by bowel gas Right kidney: No pelvicalyceal dilatation Ascites: None IMPRESSION: The common bile duct is dilated measuring 9 mm in diameter. Two gallbladder polyps versus adherent stones. Follow-up ultrasound in six months is recommended. Report Dictated on Electronically Signed By: Victor Manuel Hdz Electronically Signed Date/Time: 08/14/2022 2:11 PM EDT [facility] Radiology Study observation (narrative) [facility] Urinalysis complete panel (U )Ordered By: Xochilt Strickland on 08-14-2022 Bacteria LM.HPF (Urine sed) [#/Area] Negative Negative /HPF [facility] Bilirubin Ql (U) Negative Negative mg/dL [facility] Clarity (U) Clear Clear [facility] Color (U) Light Yellow Lt. Yellow [facility] Epithelial cells.squamous LM.HPF (Urine sed) [#/Area] Negative [facility] h Glucose Ql (U) >1,000 Abnormal Normal (<70) mg/dL [facility] Hemoglobin Ql (U) Negative Negative mg/dL [facility] Interpretation and review of laboratory results Abnormal [facility] Ketones (U) [Mass/Vol] 80 mg/dL Abnormal Negative [facility] Leukocyte esterase Test strip Ql (U) Negative Negative Nikita/uL [facility] Mucus LM.HPF (Urine sed) [#/Area] Few Negative /LPF [facility] Nitrite Ql (U) Negative Negative [facility] th pH (U) 7.0 [pH] 5.0 - 8.0 pH [facility] Protein (U) [Mass/Vol] 20 mg/dL Abnormal Negative [facility] RBC LM.HPF (Urine sed) [#/Area] 0-2 [facility] Specific gravity (U) [Rel density] 1.027 1.005 - 1.030 [facility] Urobilinogen (U) [Mass/Vol] Normal Normal (0-1) mg/dL [facility] WBC LM.HPF (Urine sed) [#/Area] 0-2 [facility] Comp Metabolic Panelon 01-11 ALP [Catalytic activity/Vol] 103 U/L Normal 38-126 [facility] Comment on above: Performed By: #### H EMDF, ETOH4, CMP3 #### [facility] [address] [place] [address] ALT [Catalytic activity/Vol] 32 U/L Normal 0-49 [facility] Comment on above: Result Comment: The ALT test is performed by an updated assay method. Please note that the reference intervals have been changed and are now sex specific. Performed By: #### H EMDF, ETOH4, CMP3 #### [facility] [address] [place] [address] Anion gap [Moles/Vol] 10 mmol/L Normal 3-13 [facility] Comment on above: Performed By: #### H EMDF, ETOH4, CMP3 #### [facility] [address] [place] [address] AST [Catalytic activity/Vol] 56 U/L High 15-46 [facility] Comment on above: Performed By: #### H EMDF, ETOH4, CMP3 #### [facility] [address] [place] [address] Calcium [Mass/Vol] 8.9 mg/dL Normal 8.4-10.4 [facility] Comment on above: Performed By: #### H EMDF, ETOH4, CMP3 #### [facility] [address] [place] [address] CO2 [Moles/Vol] 24 mmol/L Normal 22-30 [facility] Comment on above: Performed By: #### H EMDF, ETOH4, CMP3 #### [facility] [address] [place] [address] Glucose [Mass/Vol] 265 mg/dL High 70-100 [facility] Comment on above: Performed By: #### H EMDF, ETOH4, CMP3 #### [facility] [address] [place] [address] Protein [Mass/Vol] 8.1 g/dL Normal 6.3-8.2 [facility] Comment on above: Performed By: #### H EMDF, ETOH4, CMP3 #### [facility] [address] [place] [address] Urea nitrogen [Mass/Vol] 13 mg/dL Normal 7-17 [facility] Comment on above: Performed By: #### H EMDF, ETOH4, CMP3 #### [facility] [address] [place] [address] Bilirubin [Mass/Vol] 0.8 mg/dL Normal 0.2-1.3 [facility] Comment on above: Performed By: #### H EMDF, ETOH4, CMP3 #### [facility] [address] [place] [address] Creatinine [Mass/Vol] 0.55 mg/dL Normal 0.52-1.25 [facility] Comment on above: Performed By: #### H EMDF, ETOH4, CMP3 #### [facility] [address] [place] [address] eGFR OTHER > 90.0 Normal >60 [facility] Comment on above: Result Comment: KDIG O guidelines provide the following GFR categories: Stage GFR(ml/min/1.73 m2) Terms G1 >=90 Normal or high G2 60-89 Mildly decreased* G3a 45-59 Mildly to moderately decreased G3b 30-44 Moderately to severely decreased G4 15-29 Severely decreased G5 <15 Kidney failure *Relative to young adult level. In the absence of evidence of kidney damage, neither GFR category G1 nor G2 fulfill the criteria for CKD. The CKD-EPI equation is validated in individuals 18 years of age and older. Currently the best equation for estimating glomerular filtration rate (GFR) from serum creatinine in children is the Bedside Aden equation. It is less accurate in patients with extremes of muscle mass, restriction of dietary protein, ingestion of creatine, extra-renal metabolism of creatinine, or treatment with medications that affect renal tubular creatinine secretion. Performed By: #### H EMDF, ETOH4, CMP3 #### [facility] [address] [place] [address] GFR/1.73 sq M.predicted among blacks MDRD (S/P/Bld) [Vol rate/Area] mL/min/{1.73_m2} Normal >60 [facility] Comment on above: Performed By: #### H EMDF, ETOH4, CMP3 #### [facility] [address] [place] [address] Chloride [Moles/Vol] 100 mmol/L Normal 98-107 [facility] Comment on above: Performed By: #### H EMDF, ETOH4, CMP3 #### [facility] [address] [place] [place] [address] Potassium [Moles/Vol] 5.1 mmol/L Normal 3.5-5.1 [facility] Comment on above: Performed By: #### H EMDF, ETOH4, CMP3 #### [facility] [address] [place] [address] Sodium [Moles/Vol] 134 mmol/L Low 135-145 [facility] Comment on above: Performed By: #### H EMDF, ETOH4, CMP3 #### [facility] [address] [place] [address] Albumin [Mass/Vol] 4.5 g/dL Normal 3.5-5.0 [facility] Comment on above: Performed By: #### H EMDF, ETOH4, CMP3 #### [facility] [address] [place] [address] Drugs of Abuseon 01-11-2022 Phencyclidine (PCP), Ur Negative Normal [facility] Comment on above: Result Comment: The expected value for all of the drugs listed above is Negative. The following drugs or drug groups have been screened for by Immunoassay at the following thresholds: Amphetamine class (1000 ng/mL), Barbiturates (200 ng/mL), Benzodiazepines (200 ng/mL), Cocaine (300 ng/mL), Methadone (300 ng/mL), Opiates (300 ng/mL), Oxycodone (100 ng/mL), and PCP (25 ng/mL). NOTE: These results are for medical treatment only. Analysis performed using non-forensic procedures. POSITIVE results are NOT confirmed by a more specific alternative method unless requested. If confirmation is needed, request confirmation under separate order. Performed By: #### F ENTU #### [facility] [address] [place] [place] #### [email or web address] #### [facility] [address] [place] [address] Methadone, Ur Negative Normal [facility] Comment on above: Performed By: #### F ENTU #### [facility] [address] [place], [place] #### [email or web address] #### [facility] [address] [place] [address] Opiates, Ur Negative Normal [facility] Comment on above: Performed By: #### F ENTU #### [facility]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 Work Phone: [facility] 08-10-2024 17:57-0400 Body height 182.[address] Jose Alfredo Valderrama DO Work Phone: [facility] 08-05-2024 11:41-0400 Body height 177.8 cm Albina Servin CLIENT LEADER - BOOTH CASHIER Work Phone: [facility] 08-05-2024 11:41-0400 Body mass index (BMI) [Ratio] 26.2 kg/m2 Albina Servin CLIENT LEADER - BOOTH CASHIER Work Phone: [facility] 08-05-2024 11:41-0400 Body weight 82.83 kg Albina Servin CLIENT LEADER - BOOTH CASHIER Work Phone: [facility] 08-05-2024 11:41-0400 Diastolic blood pressure 68 mm[Hg] Albina Servin CLIENT LEADER - BOOTH CASHIER Work Phone: [facility] 08-05-2024 11:41-0400 Heart rate 98 /min Albina Servin CLIENT LEADER - BOOTH CASHIER Work Phone: [employer] 08-05-2024 11:41-0400 Systolic blood pressure 122 mm[Hg] Albina Malathi CLIENT LEADER - BOOTH CASHIER Work Phone: [employer] 02-17-2024 09:16-0400 Body temperature 97.5 [degF] Kuldeep Rios MD Work Phone: [employer] 02-17-2024 09:16-0400 Diastolic blood pressure 90 mm[Hg] Kuldeep Rios MD Work Phone: [employer] 02-17-2024 09:16-0400 Heart rate 75 /min Kuldeep Rios MD Work Phone: [employer] 02-17-2024 09:16-0400 Respiratory rate 18 /min Kuldeep Rios MD Work Phone: [employer] 02-17-2024 09:16-0400 SaO2% (BldA) [Mass fraction] 97 % Kuldeep Rios MD Work Phone: [employer] 02-17-2024 09:16-0400 Systolic blood pressure 132 mm[Hg] Kuldeep Rios MD Work Phone: [employer] 02-16-2024 10:29-0400 Body height 177.8 cm Kuldeep Rios MD Work Phone: [employer] 02-15-2024 15:59-0400 Body mass index (BMI) [Ratio] 25.83 kg/m2 Kuldeep Rios MD Work Phone: [employer] 02-15-2024 15:59-0400 Body weight 81.65 kg Kuldeep Rios MD Work Phone: [employer] 10-01-2023 10:08-0400 Body height 177.8 cm Dee Pitts APRN - BOOTH CASHIER Work Phone: [employer] 10-01-2023 10:08-0400 Body mass index (BMI) [Ratio] 26.69 kg/m2 Dee Pitts APRN - BOOTH CASHIER Work Phone: [facility] [employer] 10-01-2023 10:08-0400 Body weight 84.37 kg Dee Pitts CLIENT LEADER - BOOTH CASHIER Work Phone: [facility] [employer] 10-01-2023 10:08-0400 Diastolic blood pressure 62 mm[Hg] Dee Pitts CLIENT LEADER - BOOTH CASHIER Work Phone: [facility] [employer] 10-01-2023 10:08-0400 Heart rate 60 /min Dee Pitts APRN - BOOTH CASHIER Work Phone: [facility] [employer] 10-01-2023 10:08-0400 Systolic blood pressure 122 mm[Hg] Dee Pitts APRN - BOOTH CASHIER Work Phone: [facility] [employer] 05-27-2023 09:32-0500 Body height 177.8 cm Rosa Partida MD Work Phone: [facility] [employer] 05-27-2023 09:32-0500 Body mass index (BMI) [Ratio] 27.06 kg/m2 Rosa Partida MD Work Phone: [facility] [employer] 05-27-2023 09:32-0500 Body weight 85.55 kg Rosa Partida MD Work Phone: [facility] [employer] 05-27-2023 09:32-0500 Diastolic blood pressure 83 mm[Hg] Rosa Partida MD Work Phone: [facility] [employer] 05-27-2023 09:32-0500 Heart rate 78 /min Rosa Partida MD Work Phone: [facility] [employer] 05-27-2023 09:32-0500 Systolic blood pressure 132 mm[Hg] Rosa Partida MD Work Phone: [facility] [employer] 11-13-2022 08:49-0400 Body height 177.8 cm Dee Pitts APRN - BOOTH CASHIER Work Phone: [facility] [employer] 11-13-2022 08:49-0400 Body mass index (BMI) [Ratio] 27.26 kg/m2 Dee Foster CLIENT LEADER - BOOTH CASHIER Work Phone: [facility] [employer] 11-13-2022 08:49-0400 Body weight 86.18 kg Dee Pitts CLIENT LEADER - BOOTH CASHIER Work Phone: [facility] [employer] 11-13-2022 08:49-0400 Diastolic blood pressure 70 mm[Hg] Dee Pitts CLIENT LEADER - BOOTH CASHIER Work Phone: [facility] [employer] 11-13-2022 08:49-0400 Heart rate 72 /min Dee Pitts CLIENT LEADER - BOOTH CASHIER Work Phone: [facility] [employer] 11-13-2022 08:49-0400 Systolic blood pressure 130 mm[Hg] Dee Pitts CLIENT LEADER - BOOTH CASHIER Work Phone: [facility] [employer] 08-18-2022 08:25-0400 Body temperature 97.2 [degF] LOTUS Marie MD Work Phone: [facility] [employer] 08-18-2022 08:25-0400 Diastolic blood pressure 68 mm[Hg] LOTUS Marie MD Work Phone: [facility] [employer] 08-18-2022 08:25-0400 Heart rate 70 /min LOTUS Marie MD Work Phone: [facility] [employer] 08-18-2022 08:25-0400 Respiratory rate 16 /min LOTUS Marie MD Work Phone: [facility] [employer] 08-18-2022 08:25-0400 SaO2% (BldA) [Mass fraction] 93 % LOTUS Marie MD Work Phone: [facility] [employer] 08-18-2022 08:25-0400 Systolic blood pressure 118 mm[Hg] LOTUS Marie MD Work Phone: [facility] [employer] 08-17-2022 11:19-0400 Body height 177.8 cm LOUTS Marie MD Work Phone: [facility] [employer] 08-14-2022 16:01-0400 Body mass index (BMI) [Ratio] 25.17 kg/m2 LOTUS Marie MD Work Phone: [facility] [employer] 08-14-2022 16:01-0400 Body weight 79.56 kg LOTUS Marie MD Work Phone: [employer] 05-10-2022 09:19-0500 Body height 177.8 cm Dee Pitts CLIENT LEADER - BOOTH CASHIER Work Phone: [employer] 05-10-2022 09:19-0500 Body mass index (BMI) [Ratio] 27.25 kg/m2 Dee Pitts CLIENT LEADER - BOOTH CASHIER Work Phone: [employer] 05-10-2022 09:19-0500 Body weight 86.14 kg Dee Pitts CLIENT LEADER - BOOTH CASHIER Work Phone: [employer] 05-10-2022 09:19-0500 Diastolic blood pressure 89 mm[Hg] Dee Pitts CLIENT LEADER - BOOTH CASHIER Work Phone: [employer] 05-10-2022 09:19-0500 Heart rate 77 /min Dee Pitts CLIENT LEADER - BOOTH CASHIER Work Phone: [employer] 05-10-2022 09:19-0500 Systolic blood pressure 132 mm[Hg] Dee Pitts CLIENT LEADER - BOOTH CASHIER Work Phone: [employer] 05-09-2022 12:13-0500 Diastolic blood pressure 99 mm[Hg] Andrea Lr MD Work Phone: [employer] 05-09-2022 12:13-0500 Heart rate 78 /min Andrea Lr MD Work Phone: [employer] 05-09-2022 12:13-0500 Systolic blood pressure 158 mm[Hg] Andrea Lr MD Work Phone: [employer] 05-09-2022 11:56-0500 Body height 177.8 cm Andrea Lr MD Work Phone: [employer] 05-09-2022 11:56-0500 Body mass index (BMI) [Ratio] 27.12 kg/m2 Andrea Lr MD Work Phone: [employer] 05-09-2022 11:56-0500 Body weight 85.73 kg Andrea Lr MD Work Phone: [facility] 01-10-2022 19:57-0400 Body mass index (BMI) [Ratio] 28.9 kg/m2 Alvin Hernandez MD Work Phone: [facility] 01-10-2022 19:57-0400 Body temperature 98.71 [degF] Alvin Hernandez MD Work Phone: [facility] 01-10-2022 19:57-0400 Body weight 90.72 kg Alvin Hernandez MD Work Phone: [facility] 01-10-2022 19:57-0400 Diastolic blood pressure 90 mm[Hg] Alvin Hernandez MD Work Phone: [facility] 01-10-2022 19:57-0400 Heart rate 82 /min Alvin Hernandez MD Work Phone: [facility] 01-10-2022 19:57-0400 Respiratory rate 18 /min Alvin Hernandez MD Work Phone: [facility] 01-10-2022 19:57-0400 SaO2% (BldA) [Mass fraction] 96 % Alvin Hernandez MD Work Phone: [facility] 01-10-2022 19:57-0400 Systolic blood pressure 149 mm[Hg] Alvin Hernandez MD Work Phone: [facility] Encounters Encounter Date Encounter Type Care Provider Facility Start: 09-15-2024 End: 09-15-2024 ambulatory ANDREA LR [facility] Start: 09-15-2024 End: 09-15-2024 Office outpatient visit 25 minutes Andrea Lr MD Work Phone: [facility] Comment on above: Type 1 diabetes christy itus with hyperglycemia (HCC) (Primary Dx); Nausea and vomiting, unspecified vomiting type; Mixed hyperlipidemia; Primary hypothyroidism Start: 08-28-2024 ambulatory [facility] Facility:[facility] Start: 08-28-2024 End: 08-28-2024 Emergency department patient visit [facility] Facility:[facility] Start: 08-15-2024 ambulatory Andrea Lr Facility :[facility] Start: 08-12-2024 ambulatory Levon Graff Facility :[facility] Start: 08-10-2024 ambulatory Andrea Lr Facility :[facility] Start: 08-10-2024 End: 08-26-2024 Evaluation and management of inpatient Dr. Miki Abdi DO -Intensive Care Unit Work Phone: Start: 08-06-2024 End: 08-07-2024 Refill Albina Servin CLIENT LEADER - BOOTH CASHIER Work Phone: [facility] Start: 08-05-2024 End: 08-05-2024 ambulatory [facility] Start: 08-05-2024 End: 08-05-2024 Office outpatient visit 25 minutes Albina Servin CLIENT LEADER - BOOTH CASHIER Work Phone: [facility] Comment on above: Type 1 diabetes christy itus with hyperglycemia (HCC) (Primary Dx); Mixed diabetic hyperlipidemia associated with type 2 diabetes mellitus (HCC); Hypertension associated with type 2 diabetes mellitus (HCC); Acquired hypothyroidism Start: 07-30-2024 End: 07-30-2024 Orders Only Dee Pitts CLIENT LEADER - BOOTH CASHIER Work Phone: [facility] Comment on above: Type 1 diabetes christy itus with hyperglycemia (HCC) (Primary Dx); Mixed hyperlipidemia Request For Order(s) Start: 07-28-2024 End: 07-28-2024 Telephone encounter Florentino Flowers MD Work Phone: [facility] Comment on above: Other (Clinical Note s Request) Start: 07-07-2024 End: 07-08-2024 Refill Albina Servin CLIENT LEADER - BOOTH CASHIER Work Phone: [facility] Clinical Communication Comment on above: Type 1 diabetes christy itus with hyperglycemia (HCC) Start: 06-18-2024 End: 06-18-2024 Refill Albina Servin CLIENT LEADER - BOOTH CASHIER Work Phone: [facility] Clinical Communication Comment on above: Type 1 diabetes christy itus with hyperglycemia (HCC) Start: 04-12-2024 End: 04-16-2024 Refill Rosa Partida MD Work Phone: [facility] Clinical Communication Comment on above: Type 1 diabetes christy itus with hyperglycemia (HCC) Start: 02-15-2024 End: 02-17-2024 Evaluation and management of inpatient Kuldeep Rios MD Work Phone: [facility] Comment on above: Nausea and vomiting, unspecified vomiting type (Primary Dx); Dehydration; Diabetic ketoacidosis without coma associated with other specified diabetes mellitus (HCC) Start: 10-01-2023 End: 10-01-2023 ambulatory DEE PITTS [facility] Start: 10-01-2023 End: 10-01-2023 Office outpatient visit 25 minutes Dee Pitts CLIENT LEADER - BOOTH CASHIER Work Phone: [facility] Endocrinology Comment on above: Type 1 diabetes christy itus with hyperglycemia (HCC) (Primary Dx); Essential hypertension; Acquired hypothyroidism Start: 09-27-2023 End: 11-15-2023 ambulatory Kati Olivares RN [facility] Clinical Communication Start: 09-27-2023 End: 11-15-2023 Patient encounter procedure Kati Olivares RN [facility] Clinical Communication Comment on above: Type 1 diabetes christy itus with hyperglycemia (HCC) Start: 09-02-2023 Refill Dee alcaraz CLIENT LEADER - BOOTH CASHIER Work Phone: [facility] Endocrinology Comment on above: Essential hypertensi on (Primary Dx) Start: 07-17-2023 Telephone encounter Dee Pitts CLIENT LEADER - BOOTH CASHIER Work Phone: [facility] Endocrinology Comment on above: Med Management (Offi ce notes request) Start: 05-28-2023 Telephone encounter Rosa Partida MD Work Phone: [facility] Endocrinology Start: 05-27-2023 End: 05-27-2023 Office outpatient visit 25 minutes Rosa Partida MD Work Phone: [facility] Endocrinology Comment on above: Type 1 diabetes christy itus with hyperglycemia (HCC) (Primary Dx); Mixed hyperlipidemia; Primary hypothyroidism Start: 03-30-2023 ambulatory Judith Weiss RN [facility] C linical Communication Start: 03-30-2023 Patient encounter procedure Judith Weiss RN [facility] Clinical Communication Comment on above: Type 1 diabetes christy itus with hyperglycemia (HCC) Start: 02-07-2023 Refill Dee alcaraz CLIENT LEADER - BOOTH CASHIER Work Phone: [facility] Endocrinology Start: 01-29-2023 Telephone encounter Andrea Eason MD Work Phone: [facility] Family Medicine Comment on above: Annual Lung Screenin g Reminder Start: 11-13-2022 End: 11-13-2022 Office outpatient visit 25 minutes Dee Pitts CLIENT LEADER - BOOTH CASHIER Work Phone: [facility] Endocrinology Comment on above: Type 1 diabetes christy itus with hyperglycemia (HCC) (Primary Dx); Acquired hypothyroidism Start: 09-28-2022 Telephone encounter Evangelina Lui RN [facility] Gastroenterology Start: 08-17-2022 Telephone encounter Evangelina Lui RN [facility] Gastroenterology Comment on above: Care Coordination Care Coordination; P rocedure Start: 08-14-2022 End: 08-18-2022 Evaluation and management of inpatient J Sue Marie MD Work Phone: [facility] TELEMETRY Comment on above: Vomiting (Primary Dx ); Abnormal CT scan Start: 07-11-2022 Telephone encounter Dee Hartman MD Work Phone: [facility] Ophthalmology Comment on above: No Show Start: 05-10-2022 End: 05-10-2022 Office outpatient visit 25 minutes Dee Pitts CLIENT LEADER - BOOTH CASHIER Work Phone: [facility] Comment on above: Type 1 diabetes christy itus with hyperglycemia (HCC) (Primary Dx); Acquired hypothyroidism Start: 05-09-2022 End: 05-09-2022 Office outpatient visit 25 minutes Andrea Lr MD Work Phone: [facility] Comment on above: Primary hypothyroidi sm (Primary Dx); Mixed hyperlipidemia; Type 1 diabetes mellitus with hyperglycemia (HCC); Chronic nausea; Tobacco abuse Start: 02-01-2022 ambulatory UNKNOWN PROVIDER [facility] Start: 01-11-2022 End: 01-11-2022 Emergency department patient visit AUSTIN RODRIGUEZ [facility] Start: 01-10-2022 End: 01-11-2022 Emergency department patient visit UNKNOWN PROVIDER [facility] Start: 01-10-2022 End: 01-11-2022 Emergency department patient visit Alvin Hernandez MD Work Phone: [facility] Start: 2021 ambulatory Andrea Lr [facility] Start: 2021 End: 2021 Subsequent hospital visit by physician Andrea Lr MD Work Phone: [facility] Comment on above: Cigarette smoker Start: 04-19-2020 End: 04-19-2020 Subsequent hospital visit by physician Andrea Lr Work Phone: [facility] Comment on above: Cervical radiculopat hy Start: 09-15-2019 End: 09-15-2019 Subsequent hospital visit by physician Asha Nobles Work Phone: [facility] Start: 11-02-2016 End: 11-02-2016 Emergency department patient visit JAVAN MCKEON Facility:[facility] Procedures Date Procedure Procedure Detail Performing Clinician Start: 09-14-2024 Adult depression scr eening assessment Andrea Lr MD Work Phone: Start: 08-10-2024 Plain chest X-ray Dr. John Valderrama DO Work Phone: Start: 08-10-2024 Plain chest X-ray Dr. John Valderrama DO Work Phone: Start: 08-10-2024 Plain chest X-ray Dr. John Valderrama DO Work Phone: Start: 08-05-2024 Hemoglobin glycosyla brandi a1c Albina Servin CLIENT LEADER - BOOTH CASHIER Work Phone: Start: 08-04-2024 Lipid 1996 panel - S andres or Plasma Albina Servin CLIENT LEADER - BOOTH CASHIER Work Phone: Start: 02-17-2024 Glucose quantitative blood xcpt reagent strip Malini Laguna MD Work Phone: Start: 02-17-2024 Glucose quantitative blood xcpt reagent strip Santana Shell MD Work Phone: Start: 02-17-2024 Basic metabolic pane l calcium total Lane Maldonado MD Work Phone: Start: 02-16-2024 Glucose quantitative blood xcpt reagent strip Santana Shell MD Work Phone: Start: 02-16-2024 Glucose quantitative blood xcpt reagent strip Santana Shell MD Work Phone: Start: 02-16-2024 Glucose quantitative blood xcpt reagent strip Lane Maldonado MD Work Phone: Start: 02-16-2024 End: 02-16-2024 Basic metabolic panel calcium total Lane Maldonado MD Work Phone: Start: 02-16-2024 End: 02-16-2024 Basic metabolic panel calcium total Marcel Palacio Kyle DO Work Phone: Start: 02-15-2024 Glucose quantitative blood xcpt reagent strip Lane Maldonado MD Work Phone: Start: 02-15-2024 End: 02-15-2024 Glucose quantitative blood xcpt reagent strip Lane Maldonado MD Work Phone: Start: 02-15-2024 End: 02-15-2024 Basic metabolic panel calcium total Marcel Palacio Kyle DO Work Phone: Start: 02-15-[address] Maldonado MD Work Phone: Start: 02-15-2024 Urinalysis complete panel - Urine Lane Maldonado MD Work Phone: Start: 02-15-2024 Urnls dip stick/tabl et reagent auto microscopy Kuldeep E Napora MD Work Phone: Start: 02-15-2024 Radiologic exam ches t single view Lane Maldonado MD Work Phone: Start: 02-15-2024 Glucose quantitative blood xcpt reagent strip Kuldeep Rios MD Work Phone: Start: 02-15-2024 Blood gases any combination ph pco2 po2 co2 hco3 Kuldeep Rios MD Work Phone: Start: 02-15-2024 End: 02-15-2024 Comprehensive metabolic panel Kuldeep Rios MD Work Phone: Start: 02-15-2024 Ecg routine ecg w/le ast 12 lds trcg only w/o i&r Kuldeep Rios MD Work Phone: Start: 10-01-2023 Hemoglobin glycosyla brandi a1c Dee Pitts CLIENT LEADER - BOOTH CASHIER Work Phone: Start: 05-27-2023 Hemoglobin glycosyla brandi a1c Rosa Partida MD Work Phone: Start: 05-27-2023 Lipid 1996 panel - S andres or Plasma Rosa Partida MD Work Phone: Start: 05-27-2023 Thyrotropin [Units/v olume] in Serum or Plasma Rosa Partida MD Work Phone: Start: 02-15-2023 Thyrotropin [Units/v olume] in Serum or Plasma Judith Weiss RN Start: 11-13-2022 Hemoglobin glycosyla brandi a1c Dee Pitts CLIENT LEADER - BOOTH CASHIER Work Phone: Start: 08-18-2022 Glucose quantitative blood xcpt reagent strip Santana Shell MD Work Phone: Start: 08-18-2022 Glucose quantitative blood xcpt reagent strip Santana Shell MD Work Phone: Start: 08-17-2022 Glucose quantitative blood xcpt reagent strip Santana Shell MD Work Phone: Start: 08-17-2022 Glucose quantitative blood xcpt reagent strip Santana Shell MD Work Phone: Start: 08-17-2022 Glucose quantitative blood xcpt reagent strip Santana Shell MD Work Phone: Start: 08-17-2022 Glucose quantitative blood xcpt reagent strip Santana Shell MD Work Phone: Start: 08-17-2022 Comprehensive metabo lic panel Santana Shell MD Work Phone: Start: 08-17-2022 Glucose quantitative blood xcpt reagent strip Santana Shell MD Work Phone: Start: 08-16-2022 Glucose quantitative blood xcpt reagent strip Santana Shell MD Work Phone: Start: 08-16-2022 Glucose quantitative blood xcpt reagent strip Santana Shell MD Work Phone: Start: 08-16-2022 Glucose quantitative blood xcpt reagent strip Santana Shell MD Work Phone: Start: 08-16-2022 End: 08-16-2022 Egd transoral biopsy single/multiple Caleb Wilson DO Work Phone: Start: 08-16-2022 Glucose quantitative blood xcpt reagent strip Santana Shell MD Work Phone: Start: 08-16-2022 Comprehensive metabo lic panel Santana Shell MD Work Phone: Start: 08-15-2022 Glucose quantitative blood xcpt reagent strip Santana Shell MD Work Phone: Start: 08-15-2022 Glucose quantitative blood xcpt reagent strip Santana Shell MD Work Phone: Start: 08-15-2022 Glucose quantitative blood xcpt reagent strip Santana Shell MD Work Phone: Start: 08-15-2022 Glucose quantitative blood xcpt reagent strip Santana Shell MD Work Phone: Start: 08-15-2022 Mri abdomen w/o cont rast material Caleb Wilson DO Work Phone: Start: 08-15-2022 Glucose quantitative blood xcpt reagent strip Santana Shell MD Work Phone: Start: 08-15-2022 End: 08-15-2022 POCT GLUCOSE METER UNSOLICITED RESULTS Santana Shell MD Work Phone: Start: 08-15-2022 Comprehensive metabo lic panel Santana Shell MD Work Phone: Start: 08-14-2022 Glucose quantitative blood xcpt reagent strip Santana Shell MD Work Phone: Start: 08-14-2022 End: 08-14-2022 Glucose quantitative blood xcpt reagent strip Frederic Marie MD Work Phone: Start: 08-14-2022 POCT GLUCOSE METER UNSOLICITED RESULTS Frederic Marie MD Work Phone: Start: 08-14-2022 Us abdominal real ti me w/image limited J Sue Marie MD Work Phone: Start: 08-14-2022 SARS-COV-2, FLU A/B, AND RSV COMBO Frederic Marie MD Work Phone: Start: 08-14-2022 Assay of lactate Frederic Marie MD Work Phone: Start: 08-14-2022 Bacteria identified in Blood by Culture Frederic Marie MD Work Phone: Start: 08-14-2022 Urinalysis complete panel - Urine Frederic Marie MD Work Phone: Start: 08-14-2022 Urnls dip stick/tabl et reagent auto microscopy Frederic Marie MD Work Phone: Start: 08-14-2022 Ct abdomen & pelvis w/contrast material Frederic Marie MD Work Phone: Start: 08-14-2022 Blood gases any combination ph pco2 po2 co2 [id number] Frederic Marie MD Work Phone: Start: 08-14-2022 Comprehensive metabo lic panel J Sue Marie MD Work Phone: Start: 08-14-2022 Ecg routine ecg w/le ast 12 lds trcg only w/o i&r J Sue Marie MD Work Phone: Start: 05-09-2022 Lipid 1996 panel - S andres or Plasma Dee Ravindra CLIENT LEADER - [employer]OTH C[employer]IER Work Phone: Start: 05-09-2022 Thyrotropin [Units/v olume] in Serum or Plasma Dee Pitts CLIENT LEADER - [employer]OTH C[employer]IER Work Phone: Start: 10-23-2021 Lipid 1996 panel - S andres or Plasma Andrea Lr MD Work Phone: Start: 04-19-2020 Radex spine cervical 4 or 5 views Andrea Lr Work Phone: Start: 09-15-2019 Blood count complete automated Asha Nobles Work Phone: Start: 09-15-2019 Comprehensive metabo lic panel Asha Nobles Work Phone: Plan of Treatment Date Care Activity Detail Author Start: 09-21-2026 DTaP/Tdap/Td vaccine (2 - Td or Tdap) DTaP/Tdap/Td vaccine (2 - Td or Tdap) [facility] Start: 09-21-2026 DTaP/Tdap/Td vaccine (2 - Td) DTaP/Tdap/Td vaccine (2 - Td) [place] Start: 09-21-2026 DTaP/Tdap/Td Vaccines (2 - Td or Tdap) DTaP/Tdap/Td Vaccines (2 - Td or Tdap) [facility] Start: 09-14-2025 Depression Screening Depression Screening [facility] Start: 08-05-2025 Hemoglobin A1c measurement Diabetes: Hemoglobin A1C [facility] Start: 08-04-2025 Diabetes: Urine Albumin-Creatinine Ratio for Kidney Health Diabetes: Urine Albumin-Creatinine Ratio for Kidney Health [facility] Start: 08-04-2025 Lipid panel Lipid Panel [facility] Start: 04-07-2025 End: 04-07-2025 Patient encounter procedure 04/07/2025 9:00 AM EST Office Visit [facility] [address] [place] [address] [place] [address] Andrea Lr MD [address] [facility] [place] [address] [facility] Start: 02-16-2025 Diabetes: Estimated Glomerular Filtration Rate for Kidney Health Diabetes: Estimated Glomerular Filtration Rate for Kidney Health [facility] Start: 12-28-2024 Influenza vaccination Influenza Vaccine (Season Ended) [facility] Start: 12-16-2024 End: 12-16-2024 Patient encounter procedure 12/16/2024 11:30 AM EDT Office Visit [facility] [address] [place] [address] Albina Servin, CLIENT LEADER - BOOTH CASHIER [address] [place] [address] [facility] Start: 09-30-2024 Hemoglobin A1c measurement Diabetes: Hemoglobin A1C [facility] Start: 08-10-2024 Cardiac monitoring [facility] Start: 08-10-[address] [facility] Start: 08-10-2024 Consultation [facility] Start: 08-10-2024 Continuous pulse oximetry [facility] Start: 08-10-2024 End: 08-10-2024 Following clinical pathway protocol [facility] Start: 08-10-2024 Gas panel - Arterial blood [facility] Start: 08-10-2024 Lab findings surveillance [facility] Start: 08-10-2024 Notification of physician [facility] Start: 08-10-2024 Patient education [facility] Start: 08-10-2024 Vital signs measurements [facility] Start: 08-10-2024 [facility] Start: 08-10-2024 Referral to gastroenterology service [facility] Start: 08-10-2024 [facility] Start: 08-10-2024 Thyroid stimulating hormone measurement [facility] Start: 08-10-2024 Admission procedure [facility] Start: 08-10-2024 CT Chest and Abdomen and Pelvis WO and W contrast IV [facility] Start: 08-10-2024 CT of thorax, abdomen and pelvis with contrast CTA Chst, Abd, Pel W and/or WO [facility] Start: 08-10-2024 Airway suction technique [facility] Start: 08-10-2024 [facility] Start: 08-10-2024 Microscopic observation [Identifier] in Unspecified specimen by Gram stain [facility] Start: 08-10-2024 Respiratory Culture Respiratory Culture [facility] Start: 08-10-2024 [facility] Start: 08-05-2024 End: 08-05-2024 Patient encounter procedure 08/05/2024 11:30 AM EDT Office Visit [facility] [address] [place] [address] Albina Servin, CLIENT LEADER - BOOTH CASHIER [address] [place] [address] [facility] Start: 07-30-2024 End: 07-30-2025 Lipid 1996 panel - Serum or Plasma Lipid panel Lab Routine Mixed hyperlipidemia Expected: 07/30/2024 (Approximate), Expires: 07/30/2025 [facility] Work Phone: Comment on above: Expected: 07/30/2024 (Approximate), Expi res: 07/30/2025 Start: 07-30-2024 End: 07-30-2025 Microalbumin/Creatinine panel in random Urine Microalbumin / creatinine urine ratio Lab Routine Type 1 diabetes mellitus with hyperglycemia (HCC) Expected: 07/30/2024 (Approximate), Expires: 07/30/2025 [facility] Comment on above: Expected: 07/30/2024 (Approximate), Expi res: 07/30/2025 Start: 05-27-2024 Diabetes: Estimated Glomerular Filtration Rate for Kidney Health Diabetes: Estimated Glomerular Filtration Rate for Kidney Health [facility] Start: 05-27-2024 Hemoglobin A1c measurement Diabetes: Hemoglobin A1C [facility] Start: 05-27-2024 Lipid panel Lipid Panel [facility] Start: 05-27-2024 Thyroid stimulating hormone measurement TSH Level [facility] Start: 04-29-2024 Medicare Advantage Annual Wellness Visit Medicare Advantage Annual Wellness Visit [facility] Start: 02-16-2024 Diabetes: Urine Albumin-Creatinine Ratio for Kidney Health Diabetes: Urine Albumin-Creatinine Ratio for Kidney Health [facility] Start: 02-16-2024 Thyroid stimulating hormone measurement TSH Level [facility] Start: 02-10-2024 End: 02-10-2024 Patient encounter procedure 02/10/2024 11:20 AM EDT Office Visit [facility] Endocrinology [address] [place] [phone] Florentino Flowers MD [address] [place] [address] [facility] Start: 12-29-2023 COVID-19 Vaccine () COVID-19 Vaccine () [facility] Start: 12-29-2023 Influenza vaccination [facility] Start: 11-14-2023 Diabetic foot examination Diabetes: Foot Exam [facility] Start: 11-14-2023 Hemoglobin A1c measurement Diabetes: Hemoglobin A1C [facility] Start: 10-01-2023 End: 09-30-2024 Thyrotropin [Units/volume] in Serum or Plasma TSH Lab Routine Acquired hypothyroidism Expected: 10/01/2023 (Approximate), Expires: 09/30/2024 [facility] Comment on above: Expected: 10/01/2023 (Approximate), Expi res: 09/30/2024 Start: 10-01-2023 End: 09-30-2024 Thyroxine (T4) free [Mass/volume] in Serum or Plasma T4, free Lab Routine Acquired hypothyroidism Expected: 10/01/2023 (Approximate), Expires: 09/30/2024 [facility] Work Phone: Comment on above: Expected: 10/01/2023 (Approximate), Expi res: 09/30/2024 Start: 10-01-2023 End: 10-01-2023 Patient encounter procedure 10/01/2023 9:30 AM EDT Office Visit [facility] Endocrinology [address] [place] [address] Dee Pitts, CLIENT LEADER - BOOTH CASHIER [address] [place] [address] [facility] Start: 05-28-2023 End: 05-28-2024 Thyrotropin [Units/volume] in Serum or Plasma TSH Lab Routine Primary hypothyroidism Expected: 05/28/2023 (Approximate), Expires: 05/28/2024 [facility] [employer] [facility] Work Phone: Comment on above: Expected: 05/28/2023 (Approximate), Expi res: 05/28/2024 Start: 05-28-2023 End: 05-28-2024 Thyroxine (T4) free [Mass/volume] in Serum or Plasma T4, free Lab Routine Primary hypothyroidism Expected: 05/28/2023 (Approximate), Expires: 05/28/2024 [facility] [employer] Comment on above: Expected: 05/28/2023 (Approximate), Expi res: 05/28/2024 Start: 05-27-2023 End: 05-27-2024 Comprehensive metabolic 1998 panel - Serum or Plasma Comprehensive metabolic panel Lab Routine Type 1 diabetes mellitus with hyperglycemia (HCC) Expected: 05/27/2023 (Approximate), Expires: 05/27/2024 [facility] [employer] Work Phone: Comment on above: Expected: 05/27/2023 (Approximate), Expi res: 05/27/2024 Start: 05-27-2023 End: 05-27-2024 Lipid 1996 panel - Serum or Plasma Lipid panel Lab Routine Mixed hyperlipidemia Expected: 05/27/2023 (Approximate), Expires: 05/27/2024 [facility] [employer] Comment on above: Expected: 05/27/2023 (Approximate), Expi res: 05/27/2024 Start: 05-27-2023 End: 05-27-2024 Thyrotropin [Units/volume] in Serum or Plasma TSH Lab Routine Primary hypothyroidism Expected: 05/27/2023 (Approximate), Expires: 05/27/2024 [facility] Comment on above: Expected: 05/27/2023 (Approximate), Expi res: 05/27/2024 Start: 05-27-2023 End: 05-27-2024 Thyroxine (T4) free [Mass/volume] in Serum or Plasma T4, free Lab Routine Primary hypothyroidism Expected: 05/27/2023 (Approximate), Expires: 05/27/2024 [facility] Comment on above: Expected: 05/27/2023 (Approximate), Expi res: 05/27/2024 Start: 05-27-2023 End: 05-27-2023 Patient encounter procedure 05/27/2023 9:20 AM EST Office Visit [facility] Endocrinology [address] [place] [id number] Rosa Partida MD [address] [place] [address] [facility] Endocr[facility]ology Start: 05-09-2023 COVID-19 Vaccine (4 - Booster for Pfizer series) COVID-19 Vaccine (4 - Booster for Pfizer series) [facility] Comment on above: Postponed from 07/16/2021 (Patient Refus ed) Start: 05-09-2023 COVID-19 Vaccine (4 - Pfizer series) COVID-19 Vaccine (4 - Pfizer series) [facility] Comment on above: Postponed from 07/16/2021 (Patient Refus ed) Start: 05-09-2023 Lipid panel Lipid Panel [facility] Start: 05-09-2023 Preventive dental service Diabetes: Dental Exam [facility] Comment on above: Postponed from 1966 (Patient Refus ed) Start: 05-09-2023 Thyroid stimulating hormone measurement TSH Level [facility] Start: 04-29-2023 Medicare Advantage Annual Wellness Visit Medicare Advantage Annual Wellness Visit [facility] Start: 03-28-2023 End: 03-28-2023 Patient encounter procedure 03/28/2023 2:00 PM EST Office Visit [facility] Ophthalmology [address] [place] [address] Giana Trejo MD [address] [place] [address] [facility] Start: 02-18-2023 End: 02-18-2023 Patient encounter procedure 02/18/2023 9:00 AM EDT Office Visit [facility] Endocrinology [address] [place] [phone] Dee Pitts, CLIENT LEADER - BOOTH CASHIER [address] [place] [address] [facility] Endocrinology Start: 12-28-2022 COVID-19 Vaccine () COVID-19 Vaccine () [facility] Start: 12-28-2022 Influenza vaccination Influenza Vaccine (#1) [facility] Start: 12-06-2022 Screening for malignant neoplasm of lung Lung Cancer Screening [facility] Start: 2022 Screening for malignant neoplasm of lung Low dose CT lung screening [facility] Start: 11-13-2022 Hemoglobin A1c measurement Diabetes: Hemoglobin A1C [facility] Start: 11-13-2022 End: 11-14-2023 Microalbumin/Creatinine panel in random Urine Microalbumin / creatinine urine ratio Lab Routine Type 1 diabetes mellitus with hyperglycemia (HCC) Expected: 11/13/2022 (Approximate), Expires: 11/14/2023 [facility] Work Phone: Comment on above: Expected: 11/13/2022 (Approximate), Expi res: 11/14/2023 Start: 11-13-2022 End: 11-14-2023 Thyrotropin [Units/volume] in Serum or Plasma TSH Lab Routine Acquired hypothyroidism Expected: 11/13/2022 (Approximate), Expires: 11/14/2023 [facility] Comment on above: Expected: 11/13/2022 (Approximate), Expi res: 11/14/2023 Start: 11-13-2022 End: 11-14-2023 Thyroxine (T4) free [Mass/volume] in Serum or Plasma T4, free Lab Routine Acquired hypothyroidism Expected: 11/13/2022 (Approximate), Expires: 11/14/2023 [facility] Comment on above: Expected: 11/13/2022 (Approximate), Expi res: 11/14/2023 Start: 11-13-2022 End: 11-13-2022 Patient encounter procedure 11/13/2022 Office Visit Endocrinology Dee Pitts, CLIENT LEADER - BOOTH CASHIER [address] [place] [address] [facility] Endocr[facility]ology Start: 10-25-2022 End: 10-25-2022 Patient encounter procedure 10/25/2022 Office Visit Family Medicine Andrea Lr MD [address] [place] [address], [place] [address] [facility] Start: 10-23-2022 Depression Screen Depression Screen [facility] Start: 10-23-2022 Diabetic foot examination [facility] Start: 10-23-2022 Hemoglobin A1c measurement A1C test (Diabetic or Prediabetic) [facility] Start: 10-23-2022 Lipid panel [facility] Start: 10-23-2022 Prostate specific antigen measurement Prostate Specific Antigen (PSA) Screening or Monitoring [facility] Start: 10-23-2022 Urine screening for protein [facility] Start: 09-28-2022 End: 09-28-2022 Patient encounter procedure 09/28/2022 Office Visit Gastroenterology Vivian Duval MD [address] [place] [address] [address] [place] [address] [facility] Gastroenterology Start: 09-10-2022 End: 09-10-2022 Admission to same day surgery center 09/10/2022 Surgery Gastroenterology Vivian Duval MD [address] [place] [address] [address] [place] [address] ERCP/EGD [17337 (CPT )] MERGED WITH [facility] Endoscopy Comment on above: ERCP/EGD [62837 (CPT )] Start: 09-10-2022 End: 09-10-2022 Ercp stent placement biliary/pancreatic duct ERCP Abnormal CT of the abdomen 09/10/2022 12:00 PM EDT [facility]ED WITH [facility] Gastroenterology Start: 09-10-2022 End: 05-15-2023 Esophagogastroduodenoscopy us scope w/adj strxrs EGD WITH ENDOSCOPIC ULTRASOUND EXAM Abnormal CT of the abdomen 09/10/2022 12:00 PM EDT MERGED WITH [facility] Gastroenterology Start: 09-10-2022 Subsequent hospital visit by physician 09/10/2022 Hospital Encounter Gastroenterology Vivian Duval MD [address] [facility] [address] [place] [address] [facility]GED WITH [facility] Endoscopy Start: 08-07-2022 Hemoglobin A1c measurement Diabetes: Hemoglobin A1C [facility] Start: 07-31-2022 End: 07-31-2022 Patient encounter procedure 07/31/2022 Office Visit Endocrinology Rosa Partida MD [address] [facility] [address] [place], [place] [id number] [facility] Endocrinology Start: 07-11-2022 End: 07-11-2022 Patient encounter procedure 07/11/2022 Office Visit Ophthalmology Dee Hartman MD [address] [place] [phone] [facility] Ophthalmology Start: 05-10-2022 End: 05-10-2023 Thyrotropin [Units/volume] in Serum or Plasma TSH Lab Routine Acquired hypothyroidism Expected: 05/10/2022 (Approximate), Expires: 05/10/2023 [facility] Comment on above: Expected: 05/10/2022 (Approximate), Expi res: 05/10/2023 Start: 05-10-2022 End: 05-10-2023 Thyroxine (T4) free [Mass/volume] in Serum or Plasma T4, free Lab Routine Acquired hypothyroidism Expected: 05/10/2022 (Approximate), Expires: 05/10/2023 [facility] Work Phone: Comment on above: Expected: 05/10/2022 (Approximate), Expi res: 05/10/2023 Start: 05-10-2022 End: 05-10-2022 Patient encounter procedure 05/10/2022 Office Visit Endocrinology Dee Pitts, CLIENT LEADER - BOOTH CASHIER [address] [place] [address] [facility] Start: 05-09-2022 End: 05-09-2023 Comprehensive metabolic 1998 panel - Serum or Plasma Comprehensive metabolic panel Lab Routine Type 1 diabetes mellitus with hyperglycemia (HCC) Expected: 05/09/2022 (Approximate), Expires: 05/09/2023 [facility] Comment on above: Expected: 05/09/2022 (Approximate), Expi res: 05/09/2023 Start: 05-09-2022 End: 05-09-2023 Hemoglobin A1c/Hemoglobin.total in Blood Hemoglobin A1c Lab Routine Type 1 diabetes mellitus with hyperglycemia (HCC) Expected: 05/09/2022 (Approximate), Expires: 05/09/2023 [facility] [employer] [facility] Work Phone: Comment on above: Expected: 05/09/2022 (Approximate), Expi res: 05/09/2023 Start: 05-09-2022 End: 05-09-2023 Lipid 1996 panel - Serum or Plasma Lipid panel Lab Routine Mixed hyperlipidemia Expected: 05/09/2022 (Approximate), Expires: 05/09/2023 [facility] [employer] Comment on above: Expected: 05/09/2022 (Approximate), Expi res: 05/09/2023 Start: 05-09-2022 End: 05-09-2023 Thyrotropin [Units/volume] in Serum or Plasma TSH Lab Routine Primary hypothyroidism Expected: 05/09/2022 (Approximate), Expires: 05/09/2023 [facility] Comment on above: Expected: 05/09/2022 (Approximate), Expi res: 05/09/2023 Start: 04-24-2022 Hemoglobin A1c measurement Diabetes: Hemoglobin A1C [facility] Start: 04-03-2022 End: 04-03-2022 Patient encounter procedure 04/03/2022 Office Visit Family Medicine Andrea Lr MD [address] [place], [place] [address] [facility] Start: 02-01-2022 End: 02-01-2022 Patient encounter procedure 02/01/2022 Appointment IP Unit Holden Castillo MD [address] [place] [address] [address] [place] [address] [facility] Start: 12-28-2021 Influenza vaccination Flu vaccine (#1) [facility] Start: 2021 Abdominal aortic aneurysm screening AAA screen [facility] Start: 09-18-2021 COVID-19 Vaccine (4 - Booster for Pfizer series) COVID-19 Vaccine (4 - Booster for Pfizer series) [facility] Start: 11-18-2020 Diabetic foot examination Diabetic foot exam [place] Start: 11-18-2020 HbA1c (Bld) [Mass fraction] A1C test (Diabetic or Prediabetic) [place] Start: 12-29-2019 Influenza vaccination Flu vaccine (Season Ended) [place] Start: 03-26-2019 HbA1c (Bld) [Mass fraction] A1C test (Diabetic or Prediabetic) [place] Start: 08-05-2018 Diabetic foot examination Diabetic foot exam [place] Start: 06-07-2018 Diabetic microalbuminuria test Diabetic microalbuminuria test [place] Start: 06-07-2018 Lipid panel Lipid screen [place] Start: 06-07-2018 TSH Qn TSH testing [place] Start: 03-15-2018 Diabetic retinal exam Diabetic retinal exam [facility] Start: 09-21-2017 Pneumococcal Vaccine: 65+ Years (2 - PCV) Pneumococcal Vaccine: 65+ Years (2 - PCV) [facility] Start: 2016 Hepatitis B Vaccines (1 of 3 - Risk 3-dose series) Hepatitis B Vaccines (1 of 3 - Risk 3-dose series) [facility] Start: 2016 RSV Immunization aged 60 or older (1 - 1-dose 60+ series) RSV Immunization aged 60 or older (1 - 1-dose 60+ series) [facility] Start: 2016 RSV Immunization aged 60 or older (1 - Risk 60-74 years 1-dose series) RSV Immunization aged 60 or older (1 - Risk 60-74 years 1-dose series) [facility] Start: 2016 RSV Immunization for Adults (1 - Risk 60-74 years 1-dose series) RSV Immunization for Adults (1 - Risk 60-74 years 1-dose series) [facility] Start: 2006 Screening for malignant neoplasm of colon Colon cancer screen colonoscopy [place] Start: 2006 Screening for malignant neoplasm of lung Low dose CT lung screening [facility] Start: 2006 Shingles Vaccine (1 of 2) Shingles Vaccine (1 of 2) [facility] Start: 2006 Zoster Vaccines (1 of 2) Zoster Vaccines (1 of 2) [facility] Start: 2001 Screening for malignant neoplasm of colon [facility] Start: 12-06-1975 Hepatitis A Vaccines (1 of 2 - Risk 2-dose series) Hepatitis A Vaccines (1 of 2 - Risk 2-dose series) [facility] Start: 1968 Depression Screening Depression Screening [facility] Start: 1966 Glaucoma screening Diabetes: Retinopathy Screening [facility] Start: 1966 Preventive dental service Diabetes: Dental Exam [facility] Start: 1957 Hepatitis A Vaccines (1 of 2 - Risk 2-dose series) Hepatitis A Vaccines (1 of 2 - Risk 2-dose series) [facility] Start: 1956 Annual wellness visit Medicare Initial Physical (IPPE) [facility] Start: 1956 Cyanocobalamin vitamin b-12 Vitamin B-12 [facility] Start: 1956 Diabetes: Celiac Disease Screening Diabetes: Celiac Disease Screening [facility] Start: 1956 Hepatitis B Vaccines (1 of 3 - 3-dose series) Hepatitis B Vaccines (1 of 3 - 3-dose series) [facility] Start: 1956 Medicare Advantage Annual Wellness Visit (AWV) Medicare Advantage Annual Wellness Visit (AWV) [facility] Start: 1956 Screening for malignant neoplasm of colon [facility] Start: 1956 Thyroid stimulating hormone measurement TSH Level [facility] Alanine aminotransfe rase [Enzymatic activity/volume] in Serum or Plasma [facility] Albumin [Mass/volume ] in Serum or Plasma [facility] Alkaline phosphatase [Enzymatic activity/volume] in Serum or Plasma [facility] Amphetamines [Presen ce] in Urine by Screen method >1000 ng/mL [facility] Anion gap in Serum or Plasma [facility] Anion gap in Serum or Plasma [facility] Anion gap in Serum or Plasma [facility] Anion gap in Serum or Plasma [facility] Anion gap in Serum or Plasma [facility] Anion gap in Serum or Plasma [facility] Anion gap in Serum or Plasma [facility] Anion gap in Serum or Plasma [facility] Bacteria identified in Blood [facility]: Bacteria identified in Sputum by Respiratory culture [facility] Benzodiazepine measu rement, urine [facility] Beta hydroxybutyrate [Mass/volume] in Serum or Plasma [facility] Bilirubin, total measurement [facility] BUN/Creatinine ratio [facility] BUN/Creatinine ratio [facility] BUN/Creatinine ratio [facility] BUN/Creatinine ratio [facility] BUN/Creatinine ratio [facility] BUN/Creatinine ratio [facility] BUN/Creatinine ratio [facility] BUN/Creatinine ratio [facility] Calcium [Mass/volume ] in Serum or Plasma [facility] Calcium [Mass/volume ] in Serum or Plasma [facility] Calcium [Mass/volume ] in Serum or Plasma [facility] Calcium [Mass/volume ] in Serum or Plasma [facility] Calcium [Mass/volume ] in Serum or Plasma [facility] Calcium [Mass/volume ] in Serum or Plasma [facility] Calcium [Mass/volume ] in Serum or Plasma [facility] Calcium [Mass/volume ] in Serum or Plasma [facility] Carbon dioxide, tota l [Moles/volume] in Central venous blood [facility] Carbon dioxide, tota l [Moles/volume] in Central venous blood [facility] Carbon dioxide, tota l [Moles/volume] in Central venous blood [facility] Carbon dioxide, tota l [Moles/volume] in Central venous blood [facility] Carbon dioxide, tota l [Moles/volume] in Central venous blood [facility] Carbon dioxide, tota l [Moles/volume] in Central venous blood [facility] Carbon dioxide, tota l [Moles/volume] in Central venous blood [facility] Carbon dioxide, tota l [Moles/volume] in Central venous blood [facility] End: 01-10-2022 CBC W Auto Differential panel - Blood CBC with Auto Differential Lab STAT One Time for 1 Occurrences starting 01/10/2022 until 01/10/2022 [facility] Work Phone: Comment on above: One Time for 1 Occurrences starting 12/28 until 01/10/2022 Cobalamin (Vitamin B 12) [Mass/volume] in Serum or Plasma [facility] Cocaine measurement, urine [facility] End: 01-10-2022 Comprehensive metabolic 2000 panel - Serum or Plasma Comprehensive Metabolic Panel Lab STAT One Time for 1 Occurrences starting 01/10/2022 until 01/10/2022 [facility] Work Phone: Comment on above: One Time for 1 Occurrences starting 12/28 until 01/10/2022 End: 01-10-2022 COVID-19, Antigen COVID-19, Antigen Point of Care Testing Routine One Time for 1 Occurrences starting 01/10/2022 until 01/10/2022 [facility] Work Phone: Comment on above: One Time for 1 Occurrences starting 12/28 until 01/10/2022 Creatine kinase [Enz ymatic activity/volume] in Serum or Plasma [facility] Creatinine [Mass/vol ume] in Serum or Plasma [facility] Creatinine [Mass/vol ume] in Serum or Plasma [facility] Creatinine [Mass/vol ume] in Serum or Plasma [facility] Creatinine [Mass/vol ume] in Serum or Plasma [facility] Creatinine [Mass/vol ume] in Serum or Plasma [facility] Creatinine [Mass/vol ume] in Serum or Plasma [facility] Creatinine [Mass/vol ume] in Serum or Plasma [facility] Creatinine [Mass/vol ume] in Serum or Plasma [facility] End: 2021 CT LUNG SCREENING (ANNUAL) [facility] Work Phone: Comment on above: Once for 1 Occurrences starting 12/06/19 until 2021 End: 01-10-2022 Ethanol [Mass/volume] in Serum or Plasma Ethanol Lab STAT One Time for 1 Occurrences starting 01/10/2022 until 01/10/2022 [facility] Work Phone: Comment on above: One Time for 1 Occurrences starting 12/28 until 01/10/2022 Ethanol [Mass/volume ] in Serum or Plasma [facility] fentaNYL [Presence] in Urine by Screen method [facility] End: 01-10-2022 FENTANYL, URINE FENTANYL, URINE Lab Routine One Time for 1 Occurrences starting 01/10/2022 until 01/10/2022 [facility] Work Phone: Comment on above: One Time for 1 Occurrences starting 12/28 until 01/10/2022 Folate [Moles/volume ] in Serum or Plasma [facility] Glucose [Mass/volume ] in Serum or Plasma [facility] Glucose [Mass/volume ] in Serum or Plasma [facility] Glucose [Mass/volume ] in Serum or Plasma [facility] Glucose [Mass/volume ] in Serum or Plasma [facility] Glucose [Mass/volume ] in Serum or Plasma [facility] Glucose [Mass/volume ] in Serum or Plasma [facility] Glucose [Mass/volume ] in Serum or Plasma [facility] Glucose [Mass/volume ] in Serum or Plasma [facility] Hemoglobin A1c/Hemog lobin.total in Blood [facility] End: 09-15-2019 Hepatitis Panel, Acute Hepatitis Panel, Acute Lab Routine Once for 1 Occurrences starting 09/15/2019 until 09/15/2019 [facility] [place] Comment on above: Once for 1 Occurrences starting 09/15/19 until 09/15/2019 Hepatitis Panel, Acute Hepatitis Panel, Acute Lab Routine 09/15/2019 1:58 PM EDT [facility] [place] End: 09-15-2019 HIV Screen HIV Screen Lab Routine Once for 1 Occurrences starting 09/15/2019 until 09/15/2019 [place], [place] Comment on above: Once for 1 Occurrences starting 09/15/19 until 09/15/2019 HIV Screen HIV Screen Lab Routine 09/15/2019 1:58 PM EDT [place] Lactic acid measurement [facility] Magnesium measurement [facility] Measurement of renal function [facility] Measurement of renal function [facility] Measurement of renal function [facility] Measurement of renal function [facility] Measurement of renal function [facility] Measurement of renal function [facility] Measurement of renal function [facility] Measurement of renal function [facility] Methadone measurement, urine [facility] Patient referral [facility] Work Phone: Phencyclidine [Prese nce] in Urine [facility] Potassium measurement [facility] Potassium measurement [facility] Potassium measurement [facility] Potassium measurement [facility] Potassium measurement [facility] Potassium measurement [facility] Potassium measurement [facility] Potassium measurement [facility] End: 09-15-2019 RPR with FTA Relex RPR with FTA Relex Lab Routine Once for 1 Occurrences starting 09/15/2019 until 09/15/2019 [facility] [place] Comment on above: Once for 1 Occurrences starting 09/15/19 until 09/15/2019 RPR with FTA Relex RPR with FTA Relex Lab Routine 09/15/2019 1:58 PM EDT [facility] [place] Serum chloride measurement [facility] Serum chloride measurement [facility] Serum chloride measurement [facility] Serum chloride measurement [facility] Serum chloride measurement [facility] Serum chloride measurement [facility] Serum chloride measurement [facility] Serum chloride measurement [facility] Sodium measurement [facility] Sodium measurement [facility] Sodium measurement [facility] Sodium measurement [facility] Sodium measurement [facility] Sodium measurement [facility] Sodium measurement [facility] Sodium measurement [facility] Tissue exam [facility] [employer] Work Phone: Comment on above: Release Upon Ordering for 1 Occurrences starting 08/16/2022, 1 completed Total protein measurement [facility] Troponin T.cardiac [Mass/volume] in Serum or Plasma by High sensitivity method [facility] Urea nitrogen [Mass/ volume] in Serum or Plasma [facility] Urea nitrogen [Mass/ volume] in Serum or Plasma [facility] Urea nitrogen [Mass/ volume] in Serum or Plasma [facility] Urea nitrogen [Mass/ volume] in Serum or Plasma [facility] Urea nitrogen [Mass/ volume] in Serum or Plasma [facility] Urea nitrogen [Mass/ volume] in Serum or Plasma [facility] Urea nitrogen [Mass/ volume] in Serum or Plasma [facility] Urea nitrogen [Mass/ volume] in Serum or Plasma [facility] Urine cannabinoid measurement [facility] End: 01-10-2022 Urine Drug Screen Urine Drug Screen Lab STAT One Time for 1 Occurrences starting 01/10/2022 until 01/10/2022 [facility] Work Phone: Comment on above: One Time for 1 Occurrences starting 12/28 until 01/10/2022 Urine opiate measurement [facility] Immunizations Immunization Date Immunization Notes Care Provider Fa cility 09-01-2024 Pneumococcal Conjuga te PCV20, Pf (Prevnar 20) Andrea Lr MD Work Phone: [facility] 02-16-2024 influenza vaccine A& B surf ant adjuvanted (Fluad) HIGH-DOSE injection 0.5 mL Kuldeep Rios MD Work Phone: [facility] 05-09-2022 influenza, high dose seasonal, preservative-free Dee Hartman MD Work Phone: [facility] 05-09-2022 influenza virus vacc ine, unspecified formulation Dee Pitts CLIENT LEADER - [employer] Work Phone: [facility] 10-23-2021 Pneumococcal conjuga te PCV20, PF (Prevnar 20) Andrea Lr MD Work Phone: [facility] 10-23-2021 zoster recombinant adjuvanted vaccine (SHINGRIX) 50 MCG/0.5ML SUSR injection Andrea Lr MD Work Phone: [facility] Work Phone: 05-21-2021 Pfizer SARS-CoV-2 Vaccination Dee Hartman MD Work Phone: [facility] 07-26-2020 COVID-19, PFIZER PUR PLE top, DILUTE for use, (age 12 y+), 30mcg/0.3mL Andrea Lr MD Work Phone: [facility] Work Phone: 07-05-2020 COVID-19, PFIZER PUR PLE top, DILUTE for use, (age 12 y+), 30mcg/0.3mL Andrea Lr MD Work Phone: [facility] Work Phone: 04-15-2020 influenza, injectabl e, quadrivalent, preservative free Andrealeeanne Lr [facility] [place] 01-20-2019 influenza, injectabl e, quadrivalent, preservative [facility] 02-27-2017 influenza, injectabl e, quadrivalent, contains preservative [facility] 09-21-2016 pneumococcal polysaccharide vaccine, 23 valent [facility] [place] 09-21-2016 tetanus toxoid, redu renetta diphtheria toxoid, and acellular pertussis vaccine, adsorbed [facility] 01-06-2016 influenza, injectabl e, quadrivalent, preservative free [facility] Payers Date Payer Category Payer Self-pay 2022 Medicare [employer] UHC DUAL COMPLETE [id number] 2022-Present [address] [place] [address] Medicare HMO [id number] 2022 Medicare HMO UHC DUAL COMPLET E [id number] 2021 Private Health Insurance [id number] 2021 Private Health Insurance 2020 Medicaid 2018 Medicaid [facility] MEDICAID [employer] [place] xxxxxxxxxxxx 2018-Present [phone] [address] [address] [place] [address] xxxxxxxxxxxx [id number] 2018 Medicaid [id number] .[id number] 2016 Unknown [id number] 1955 Unknown [id number] 2.16.840.1.636661.3.579.2 .668 1955 Unknown [id number] 2.16.840.1.515474.3.579.2 .668 1955 Unknown [id number] 2.16.840.1.437474.3.579.2 .668 1955 Unknown [id number] 2.16.840.1.068200.3.579.2 .668 Unknown [id number] 2.16.840.1.002594.3.579.2 .462 Unknown [id number] 2.16.840.1.267767.3.579.2 .462 Unknown [id number] 2.16.840.1.069654.3.579.2 .462 Unknown [id number] 2.16.840.1.885950.3.579.2 .462 Unknown [id number] 2.16.840.1.898283.3.579.2 .462 Unknown [id number] 2.16.840.1.343687.3.579.2 .462 Unknown [id number] 2.16.840.1.931678.3.579.2 .462 Unknown [id number] 2.16.840.1.001889.3.579.2 .462 Unknown [id number] 2.16.840.1.807405.3.579.2 .462 Unknown [id number] 2.16.840.1.141182.3.579.2 .462 Unknown [id number] 2.16.840.1.676277.3.579.2 .462 Unknown [id number] 2.16.840.1.484964.3.579.2 .462 Unknown [id number] 2.16.840.1.242469.3.579.2 .462 Unknown [id number] 2.16.840.1.324881.3.579.2 .462 Unknown [id number] 2.16.840.1.257867.3.579.2 .462 Unknown [id number] 2.16.840.1.818012.3.579.2 .462 Unknown [id number] 2.16.840.1.633868.3.579.2 .462 Unknown [id number] 2.16840.1.348280.3.579.2 .462 Unknown [id number] 2.16.840.1.451566.3.579.2 .462 Unknown [id number] 2.16.840.1.124855.3.579.2 .462 Unknown [id number] 2.16.840.1.037022.3.579.2 .462 Unknown [id number] 2.16.840.1.521196.3.579.2 .462 Unknown [id number] 2.16.840.1.206902.3.579.2 .462 Unknown [id number] 2.16.840.1.104238.3.579.2 .462 Unknown [id number] 2.16.840.1.320170.3.579.2 .462 Unknown [id number] 2.16.840.1.288001.3.579.2 .462 Unknown [id number] 2.16.840.1.698871.3.579.2 .462 Unknown [id number] 2.16.840.1.073402.3.579.2 .462 Unknown [id number] 2.16.840.1.145759.3.579.2 .462 Unknown [id number] 2.16.840.1.212099.3.579.2 .462 Unknown [id number] 2.16.840.1.795128.3.579.2 .462 Unknown [id number] 2.16.840.1.994681.3.579.2 .462 Unknown [id number] 2.16.840.1.607853.3.579.2 .462 Unknown [id number] 2.16.840.1.144035.3.579.2 .462 Unknown [id number] 2.16.840.1.997299.3.579.2 .462 Unknown [id number] 2.16.840.1.199075.3.579.2 .462 Unknown [id number] 2.16.840.1.893764.3.579.2 .462 Unknown [id number] 2.16.840.1.678748.3.579.2 .462 Unknown [id number] 2.16.840.1.038113.3.579.2 .462 Social History Date Type Detail Facility Start: 04-29-1998 End: 09-15-2024 Tobacco smoking status NHIS Current every day smoker [place], [place] Start: 04-29-1998 History of tobacco use Cigarette Smoker [place] Start: 09-30-2018 End: 09-14-2024 Cigarettes smoked current (pack per day) - Reported [place], [place] Start: 09-30-2018 End: 09-15-2024 Alcohol intake Current non-drinker of alcohol (finding) [place], [place] Start: 1955 Sex Assigned At Not on file [place] Start: 04-15-2020 End: 09-15-2024 Tobacco use and exposure Never used [place], [place] Start: 12-31-2021 End: 11-13-2022 Exposure to SARS-CoV-2 (event) Not sure [facility] [place] [place] Start: 10-23-2021 End: 05-09-2022 History SDOH Alcohol Frequency 1 [employer] Work Phone: Start: 05-12-2020 History SDOH Alcohol Std Drinks 99 [facility] Work Phone: Start: 10-23-2021 End: 05-09-2022 History SDOH Physical Activity DPW 2 [facility] Work Phone: Start: 10-23-2021 History SDOH Physical Activity MPS 3 [facility] Work Phone: Start: 10-19-2021 End: 05-09-2022 History SDOH Financial 5 [employer] Work Phone: Start: 11-13-2022 End: 09-14-2024 Tobacco use panel [facility] How hard is it for y ou to pay for the very basics like food, housing, medical care, and heating Not hard at all [facility] [employer] (I/We) worried judy er (my/our) food would run out before (I/we) got money to buy more. Never true [facility] Has the [employer], [employer], or [employer] threatened to shut off services in your home in past 12Mo No [facility] [employer] How often to you hav e a drink containing alcohol? Never [facility] Start: 11-27-2021 End: 08-10-2024 Sex Male (finding) [facility] Start: 08-10-2024 Tobacco smoking status VTIS Tobacco smoking consumption unknown (finding) [facility] Start: 04-29-1959 Sex Assigned At Male [facility] Do you belong to any clubs or organizations such as shinto groups, unions, fraternal or athletic groups, or school groups? Yes [facility] Are you now , , , , never or living with a partner? [facility] How hard is it for y ou to pay for the very basics like food, housing, medical care, and heating Somewhat hard [facility] Do you feel stress - tense, restless, nervous, or anxious, or unable to sleep at night because your mind is troubled all the time - these days [OSQ] Rather much [employer] (I/We) worried wheclif er (my/our) food would run out before (I/we) got money to buy more. Sometimes true [employer] [facility] Procedure Code Equipment Code Equipment Origin al Text Equipment Identifier Dates [id number] Start: 03-26-2018 End: 08-05-2024 USE TO INJECT INSULIN FOUR TIMES A DAY DIRECTED [id number] Start: 07-31-2019 1 each by In Vit ro route 5 times daily As needed. [id number] Start: 11-19-2019 1 each by Does n ot apply route 5 times daily Dx E11.9 [id number] Start: 01-08-2020 1 Device by Does not apply route 5 times daily [id number] Start: 11-19-2019 1 each by In Vit ro route 5 times daily As needed. [id number] Start: 07-18-2021 1 Device by Does not apply route 5 times daily [id number] Start: 07-18-2021 USE TO INJECT INSULIN FOUR TIMES A DAY DIRECTED [id number] Start: 07-12-2021 Comfort EZ Insul in Syringe 31G X 5/16 1 ML [facility] [id number] Start: 03-22-2022 [id number] Start: 07-18-2021 Lancets (Safety Lancet 30G/Pressure Act) [facility] [id number] Start: 03-22-2022 OneTouch Verio t est strip [id number] Start: 03-22-2022 INSERT 1 UNUSED TEST STRIP INTO METER, THEN APPLY BLOOD TO OBTAIN BLOOD GLUCOSE LEVEL FOUR TIMES DAILY [id number] Start: 08-07-2022 End: 08-05-2024 Use to inject 1- 4 times daily as directed. [id number] Start: 08-18-2022 End: 08-18-2023 USE ONE UNUSED SYRINGE TO INJECT INSULIN FIVE TIMES DAILY [id number] Start: 08-07-2022 End: 05-27-2023 USE 1 UNUSED CHRYSTAL CET TO DRAW BLOOD. TWIST OFF THE PROTECTIVE CAP. PUSH THE LANCET FIRMLY ONTO THE CHOSEN SITE, THEN DISPOSE FOUR TIMES DAILY [id number] Start: 08-07-2022 Inject 1 each un mitchell the skin 4 times daily (before meals and nightly). Use as instructed [id number] Start: 05-27-2023 End: 11-23-2023 Inject 1 each un mitchell the skin 4 times daily (before meals and nightly). Use as instructed [id number] Start: 10-01-2023 End: 03-29-2024 INSERT 1 UNUSED TEST STRIP INTO METER, THEN APPLY BLOOD TO OBTAIN BLOOD GLUCOSE LEVEL FOUR TIMES DAILY [id number] Start: 08-05-2024 1 each by Other route 4 times daily. [id number] Start: 08-05-2024 End: 09-15-2024 Goals Date Patient Goal Desired Activity /State Comment on above: Self- Management Lyric n: Smoking Cessation Patient Stated Goal: to quit smoking Barriers to success: lack of motivation Plan for overcoming my barriers: to set mind to it. Encouraged and recommended by provider. Self-Management Plan: Will cut back/quit smoking by 11/2016 Confidence: 910 Date goal set: 09/21/16 Patient given educational materials below via AVS. Patient received counseling about current lifestyle goal. Patient was informed that they should never smoke and they need to work on quitting. Discussed the benefits of smoking cessation and the risks associated with smoking. Provider Goal: Complete cessation of smoking. Patient given after visit summary which includes educational information on Smoking Cessation. Discussed use, benefit, and side effects of prescribed medications and barriers to medication compliance addressed, if applicable. All patient questions answered and patient voiced understanding. Patient was given a copy of this, and was advised to call if any questions. Formatting of this n ote might be different from the original. Self- Management Plan: Smoking Cessation Patient Stated Goal: to quit smoking Barriers to success: lack of motivation Plan for overcoming my barriers: to set mind to it. Encouraged and recommended by provider. Self-Management Plan: Will cut back/quit smoking by 11/2016 Confidence: 9/10 Date goal set: 09/21/16 Patient given educational materials below via AVS. Patient received counseling about current lifestyle goal. Patient was informed that they should never smoke and they need to work on quitting. Discussed the benefits of smoking cessation and the risks associated with smoking. Provider Goal: Complete cessation of smoking. Patient given after visit summary which includes educational information on Smoking Cessation. Discussed use, benefit, and side effects of prescribed medications and barriers to medication compliance addressed, if applicable. All patient questions answered and patient voiced understanding. Patient was given a copy of this, and was advised to call if any questions. Mental Status Date Assessment Result Facility 08-10-2024 Cognitive function Level Of Cons ciousness Comatose [facility] Work Phone: Clinical Notes 05-09-2022 to 09-15-2024 Assessment & Plan Note - Andrea Lr MD - 09/15/2024 11:06 AM EDTAssessment & Plan Note - Andrea Lr MD - 09/15/2024 11:06 AM Franklin Bullard MA - 09/15/2024 10:00 AM EDT Note Date & Type Note Facility 09-15-2024 Evaluation + Plan note Associated Problem(s): Primary hypothyroidism Controlled, continue levothyroxine 125 mcg daily [facility] 09-15-2024 Miscellaneous Notes Associated Problem(s): Primary hypothyroidism Controlled, continue levothyroxine 125 mcg daily Associated Problem(s): Hyperlipidemia Controlled, continue rosuvastatin 40 mg daily Associated Problem(s): Type 1 diabetes mellitus with hyperglycemia (HCC) Control is variable, he is currently on Semglee 16 units nightly and insulin lispro 14 to 18 units with meals sliding scale. Follow-up with endocrinology as scheduled. Associated Problem(s): Nausea and vomiting, unspecified vomiting type Currently stable he would like a refill on his Zofran documented in this encounter [facility] 09-15-2024 Evaluation + Plan note Associated Problem(s): Hyperlipidemia Controlled, continue rosuvastatin 40 mg daily T [facility] 09-15-2024 Evaluation + Plan note Associated Problem(s): Type 1 diabetes mellitus with hyperglycemia (HCC) Control is variable, he is currently on Semglee 16 units nightly and insulin lispro 14 to 18 units with meals sliding scale. Follow-up with endocrinology as scheduled. [facility] 09-15-2024 Evaluation + Plan note Associated Problem(s): Nausea and vomiting, unspecified vomiting type Currently stable he would like a refill on his Zofran T [facility] 09-15-2024 History of Present illness Narrative Patient verified by last name and date of . Images from the original note were not included. 09/15/2024 Ganesh Bush (: 1955) is a 68 y.o. male , Established patient, here for evaluation of the following chief complaint(s): Transitional Care Management Outreach and Hospital Follow-up ([facility] 08/10-08/26/24) ASSESSMENT/PLAN: 1. Type 1 diabetes mellitus with hyperglycemia (HCC) Assessment & Plan: Control is variable, he is currently on Semglee 16 units nightly and insulin lispro 14 to 18 units with meals sliding scale. Follow-up with endocrinology as scheduled. 2. Nausea and vomiting, unspecified vomiting type Assessment & Plan: Currently stable he would like a refill on his Zofran Orders: - ondansetron ODT (Zofran-ODT) 4 MG disintegrating tablet; Take 1 tablet (4 mg) by mouth every 8 hours as needed for nausea or vomiting., Starting 09/15/2024, Normal 3. Mixed hyperlipidemia Assessment & Plan: Controlled, continue rosuvastatin 40 mg daily 4. Primary hypothyroidism Assessment & Plan: Controlled, continue levothyroxine 125 mcg daily Follow up in about 6 months (around 03/18/2025). SUBJECTIVE/OBJECTIVE: ENEIDA Canas comes in today for follow-up on a hospital admission but it has been almost 3 weeks since he was discharged so they are unable to actually bill for a ANABELLE. He says he is not sure what happened he said he thinks he went into DKA began having nausea and vomiting started throwing up blood aspirated and ended up with pneumonia and was in the hospital for a couple of weeks. His kidneys failed and he was on dialysis while he was in the hospital and he has been going since he was out but he says he has not done with that his kidney function has improved and he recently had blood work done by his roll mechanic. He has no complaints today says he is doing okay. His blood pressure is elevated we will recheck that prior to discharge. Review of Systems Constitutional: Negative for activity change, appetite change, chills, fever and unexpected weight change. HENT: Negative for ear pain and sore throat. Respiratory: Negative for shortness of breath. Cardiovascular: Negative for chest pain and palpitations. Gastrointestinal: Negative for abdominal pain, blood in stool, constipation and diarrhea. Genitourinary: Negative for dysuria, frequency, hematuria and urgency. Musculoskeletal: Negative for arthralgias and back pain. Skin: Negative. Neurological: Negative for weakness and numbness. Psychiatric/Behavioral: Negative for dysphoric mood. The patient is not nervous/anxious. Vitals: 09/15/24 1009 09/15/24 1040 BP: (!) 162/83 134/78 Pulse: 94 82 SpO2: 95% Weight: 183 lb 12.8 oz (83.4 kg) Height: 5' 10 (1.778 m) Physical Exam Vitals and nursing note reviewed. Constitutional: General: He is not in acute distress. Appearance: Normal appearance. HENT: Head: Normocephalic. Right Ear: Tympanic membrane, ear canal and external ear normal. Left Ear: Tympanic membrane, ear canal and external ear normal. Mouth/Throat: Mouth: Mucous membranes are moist. Pharynx: Oropharynx is clear. Eyes: Extraocular Movements: Extraocular movements intact. Pupils: Pupils are equal, round, and reactive to light. Cardiovascular: Rate and Rhythm: Normal rate and regular rhythm. Heart sounds: Normal heart sounds. Pulmonary: Effort: Pulmonary effort is normal. Breath sounds: Normal breath sounds. Abdominal: General: Bowel sounds are normal. Palpations: Abdomen is soft. Musculoskeletal: Cervical back: Neck supple. Neurological: Mental Status: He is alert. Psychiatric: Mood and Affect: Mood normal. Behavior: Behavior normal. Thought Content: Thought content normal. An electronic signature was used to authenticate this note. Andrea Lr MD 09/15/2024 11:07 AM documented in this encounter [facility] 08-28-[address] [facility] 08-26-[address] [facility] 08-26-[address] [facility] 08-10-2024 Radiology Diagnostic study note [facility] Imaging Services [address] [place] [address] CXR for Line Placement MR#: [id number] Acct: [id number] Name: KWABENA BUSH Rep #: [id number] : 04/29/1959 M 65 From: Vinay Wright MD PCP: Care Physician,No Primary Status: REG ER Study:CXR for Line Placement Date of Exam: 08/10/24 Exam# [id number] Ordering Dr: Jose Alfredo Valderrama DO EXAM: Portable chest CLINICAL HISTORY: Central line placement COMPARISON: Earlier today TECHNIQUE: Portable chest FINDINGS: Interval placement of right internal jugular central line with tip of the catheter overlying the distal superior vena cava no pneumothorax. Endotracheal tube and nasogastric tube both of which are unchanged. No bony abnormality. The heart mediastinum are normal. No opacity within the lungs to suggest active pulmonary disease. RAD/CXR for Line Placement IMPRESSION: Interval placement of right internal jugular central line with tip of the catheter overlying the superior vena cava no pneumothorax. Endotracheal tube and nasogastric tube both of which are unchanged. No active pulmonary disease. Reading Location: [facility] CC: Dr. Jose Alfredo Valderrama DO; No Primary Care Physician ~ Boat Rigger: Signed [facility] 08-10-2024 Radiology Diagnostic study note [facility] Imaging Services [address] [place] [employer] [place] [id number] Chest 1 View (Portable) MR#: [id number] Acct: [id number] Name: KWABENA BUSH Rep #: [id number] : 08/10/1959 M 65 From: Vinay Wright MD PCP: Status: PRE ER Study:Chest 1 View (Portable) Date of Exam: 08/10/24 Exam# [id number] Ordering Dr: Jose Alfredo Valderrama DO PROCEDURE: CHEST 1 VIEW (PORTABLE) 08/10/2024 REASON FOR EXAM: ETT AND OG PLACEMENT TECHNIQUE: Frontal view of the chest. COMPARISON: Earlier today FINDINGS: Hardware: Interval placement of endotracheal tube with the tip approximately 5 cm above the naina. Nasogastric tube which is unchanged. Heart: Cardiac and mediastinal contours are stable. Lungs: The lungs are clear. Bones: The bones are unremarkable. Other: RAD/Chest 1 View (Portable) IMPRESSION: Interval placement of endotracheal tube with the tip above the naina. Nasogastric tube which is unchanged. No active pulmonary disease. Reading Location: [facility] CC: Dr. Jose Alfredo Valderrama DO ~ Boat Rigger: Signed [facility] 08-10-2024 Radiology Diagnostic study note [facility] Imaging Services [address] [place], [place] [id number] Chest 1 View (Portable) MR#: [id number] Acct: [id number] Name: KWABENA BUSH Rep #: [id number] : 08/10/1959 M 65 From: Vinay Wright MD PCP: Status: PRE ER Study:Chest 1 View (Portable) Date of Exam: 08/10/24 Exam# [id number] Ordering Dr: Jose Alfredo Valderrama DO PROCEDURE: CHEST 1 VIEW (PORTABLE) 08/10/2024 REASON FOR EXAM: DYSPNEA TECHNIQUE: Frontal view of the chest. FINDINGS: Hardware: Nasogastric tube with the tip below the diaphragm with the side port in the distal esophagus. Heart: Cardiac and mediastinal contours are stable. Lungs: The lungs are clear. Bones: The bones are unremarkable. Other: RAD/Chest 1 View (Portable) IMPRESSION: Nasogastric tube with the tip below the diaphragm with the side port overlying the distal esophagus. No active pulmonary disease. Reading Location: [id number] CC: Dr. Jose Alfredo Valderrama, DO ~ Boat Rigger: Signed [facility] 08-05-2024 History of Present illness Narrative Images from the original note were not included. [facility] ENDOCRINOLOGY [facility] [address] [facility] [address] Dept: [phone] Dept Loc: [phone] Visit type: Established patient Reason for Visit: Follow-up and Diabetes Assessment 1. Type 1 diabetes mellitus with hyperglycemia (HCC) - AMB POC HEMOGLOBIN A1C - insulin glargine (Lantus SoloStar) 100 UNIT/ML pen; Inject 18 Units under the skin Nightly., Starting Sat08/05/2024, Until Sat10/08/2025, Normal - insulin lispro (HumaLOG KWIKPEN) 100 UNIT/ML pen injection; Inject 16 Units under the skin 3 times daily (with meals). + sliding scale . TDD 63 Units /day, Starting Sat08/05/2024, Until Sat08/15/2025, Normal 2. Mixed diabetic hyperlipidemia associated with type 2 diabetes mellitus (HCC) 3. Hypertension associated with type 2 diabetes mellitus (HCC) 4. Acquired hypothyroidism Plan Type 2 Diabetes mellitus with hyperglycemia and mcc insulin use: Lab Results Component Value Date HGBA1C 10.6 (A) 08/05/2024 Diabetes is not stable Goal A1C = 6.5-7.0. Glucose goal range: 100-150 Insulin is necessary for ongoing mgmt. Based on patient discussion and available data, patient will make the following changes to their antihyperglycemic regimen: Continue Lantus 14 units once daily Continue Humalog to 16 units with meals + SS 1 Unit for every 50>150 Continue humalog low dose sliding scale Encourage patient to utilize sliding scale Katharina 3+ sensor and reader scripts faxed to [facility] Recommend FSBS to occur 4 times daily, be recorded, and message sent to office in 2 weeks for review. If CGM is worn, send message to the office with each sensor change for download. Diabetes health screen Micro albu. Patient has not been using sliding scale or using infrequently. Microalbumin - up to date 01/2023 Eye exam - external referral placed Feet exam - Up to date - Most Recent A1C is 9.4. Previous A1c 9.2% - Goal A1C <7% - Current regimen: Humalog 14 units TID before meals with SS of 1 unit for every 50 greater than 150. Lantus 16 units nightly - Current sugars: are significant for postmeal hyperglycemia and intermittent hypoglycemia - Recommend : - Hypoglycemia management discussed - advised to check sugars ac and hs using katharina cgm - submit sugar logs in 1 month - well controlled blood pressure on low dose Lisinopril Mixed diabetic hyperlipidemia associated with type 2 diabetes mellitus I have reviewed labs from 08/04/2024, total cholesterol 129, triglycerides 266, LDL 69, HDL 25, Goal LDL level is less than 100 The ASCVD Risk score (Sana LOZOYA, et al., 2019) failed to calculate for the following reasons: The valid total cholesterol range is 130 to 320 mg/dL Continue lovaza, Crestor Encouraged low fat low cholesterol diet Encouraged to increase exercise until at goal of minimum 150 minutes per week Hypertension associated with type 2 diabetes mellitus (HCC) BP at today's visit-122/68 Continue lisinopril, Acquired hypothyroidism Reviewed most recent thyroid lab from 05/27/2023, TSH 47.73, Free T4 0.7 Goal TSH is normal range. Continue levothyrxine Labs were drawn this am - will await results and then make changes as needed Results will be reported to pt and will determine next steps in titration if necessary. Pt counseled about these recommendations. Pt voiced understanding. These recommendations made based on interpretation of available data (which may include FSBS, A1C, venous sampling, or data from pt recall). I reviewed: laboratory results reviewed: Yes radiographic reports reviewed: No I reviewed the radiographic images personally at the time of today's visit: No Pt was advised of the results. Records from outside facility/PCP office to be requested: Yes Scripts sent to pharmacy of pt choice: Yes No follow-ups on file. Subjective Diabetes Associated symptoms include fatigue. Pertinent negatives for diabetes include no chest pain, no polydipsia and no polyuria. PCP is Andrea Lr MD Initial [facility] visit: Before 12/13/2014 Last office visit: 05/27/2023 No significant Interval history Type of DM: 1 Onset :~2013 Complications: Cardiovascular -- No Statin Use -- Yes Retinopathy -- No Last KEVIN/Retina Eval: missed follow up at [facility] . Longer distance from home. Would like to be referred to ophthalmology in [place] Nephropathy -- No RONNIE/ARB Use -- Yes Polyneuropathy -- Yes Bilateral great toes Foot Exam: 11/13/2022 Obesity -- No Other -- No Pt complaints include: He is sick, has nasal drainage, cough, and feeling bad all over Was in the hospital for DKA last year, and vomiting Sensors are from [employer] and he needs to see us so thatt he can continue to get the devices Since last office visit denies new health problems, admits to hospitalizations, and admits to surgeries. Pt feels their blood sugars are unchanged since NANCI. Pt c/o sxs at today's visit: no Pt c/o sxs of hyperglycemia at today's visit: no Pt c/o SEs from Medications at today's visit: no Pt voices concerns about cost of medications at today's visit: no Current DM Medications: Humalog 14 units TID before meals with SS of 1 unit for every 50 greater than 150. 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 Previously Used DM Meds: Yes Metformin Glimepride THYROID- First dx'd w/ thyroidproblems: same time as DM Current Thyroid Hormone Replacement Regimen: Levothyroxine Current dosage: 125 mcg Frequency: daily Missed doses: no - Dispense report shows not case picker since 08/2023- he states that he had extra 75 mcg tabs and has been taking 1 and 1/2 tab daily Taking correctly: no Available TFTs: Latest Reference Range & Units 05/09/22 12:19 02/15/23 12:09 05/27/23 10:26 THYROID STIMULATING HORMONE 0.40 - 4.50 mIU/L 6.42 (H) 5.66 (H) 47.73 (H) T4, FREE 0.8 - 1.8 ng/dL 0.9 0.7 (L) Family h/o thyroid dz: yes Family h/o DTC in 1st degree relatives: no Previous neck/thyroid surgery:no Personal h/o childhood XRT to head/neck/chest/body: no Previous use of thyroid hormone: yes Previous use of ATDs: no Recent CT scan w/ contrast in last 6-8 wks: no Recent use of glucocorticoids: no Use of OTC thyroid or iodine supplements: no Current use of biotin: no Current Use of Bcomplex Vitamins: no Review of Systems Constitutional: Positive for fatigue. Negative for unexpected weight change. Respiratory: Negative for shortness of breath. Cardiovascular: Negative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 any needs. Patient verbalizes understanding and is in agreement with POC. States spouse is ready, willing, and able to assist as needed when patient returns home. TCC will continue to follow. Manuel R Mayra, RN Accepted ICU transfer from Dr. Escalante The patient is Moderately Unstable - Medium risk of patient condition declining or worsening The patient's goals for the shift include To control blood sugar The clinical goals for the shift include to control blood sugar and free from DKA Problem: Pain - Adult Goal: Verbalizes/displays adequate comfort level or baseline comfort level Outcome: Progressing Problem: Chronic Conditions and Co-morbidities Goal: Patient's chronic conditions and co-morbidity symptoms are monitored and maintained or improved Outcome: Progressing Problem: Glucose Imbalance Goal: Clinical indication of glucose balance is achieved Outcome: Progressing documented in this encounter [facility] 02-16-2024 Plan of care note The patient is Moderately Stable - Low risk of patient condition declining or worsening The patient's goals for the shift include To control blood sugar The clinical goals for the shift include to control blood sugar and free from DKA The should demonstrate sufficient knowledge on DM management Problem: Knowledge Deficit Goal: Patient/family/caregiver demonstrates understanding of disease process, treatment plan, medications, and discharge instructions Outcome: Progressing Problem: Glucose Imbalance Goal: Clinical indication of glucose balance is achieved Outcome: Progressing [facility] 02-16-2024 Consult note Associated Order (s): IP CONSULT TO DIETITIAN Nutrition Assessment Type and Reason for Visit: Initial, Consult (nutritional supplements) Nutrition Recommendations/Plan: Per mnt protocol will add 5 carb choices (75 gm/meal) to help with blood sugar management Per mnt protocol will add Ensure High Protein bid (160 kcal, 16 gm prot) Please record meal and supplement intakes in RN Flowsheets Request standing scale wt as able RD to monitor PO intake, labs, weight -follow up weekly Malnutrition Assessment: Malnutrition Status: At risk for malnutrition (Comment) (recent poor intake, wt loss) Context: Acute Illness Findings of the 6 clinical characteristics of malnutrition: Energy Intake: Mild decrease in energy intake (Comment) (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 male admits with nausea and vomiting, dehydration, DKA. pt reports n/v improved and tolerated breakfast today. 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 Pt declines need for diet review at this time states he is familiar with CHO controlled diet but admits to non-compliance pt declines written diet materials. bed scale wt 172 lb Estimated Daily Nutrient Needs: Energy Requirements Based On: Kcal/kg Weight Used for Energy Requirements: [place] Weight for Energy Calculation (kg): 75 kg Total Energy Requirements (kcals/day): 0304-2272 (25-30) Weight Used for Protein Requirements: [place] Weight in Kg Used for Protein Requirements: 75 kg Estimated Total Protein (g/day): 75-90 (1.0-1.2) Estimated Daily Total Fluid (ml/day): per MD Nutrition Related Findings: no ariel LE edema, bgluc 207, 186 ( A1c 9.4 09/2023), k+ 3.4, c02 18, cr .52, ca 7.8, alkphos 255, alt 74, wbc 13. meds insulin, reglan. bed scale wt today 172 lb = 7.5% wt loss in 4.5 months and 9% loss > 1 year noted -not considered clinically significant Wound Type: None 02/15/24 81.6 kg (180 lb) 10/01/23 84.4 kg (186 lb) 05/27/23 85.5 kg (188 lb 9.6 oz) 11/13/22 86.2 kg (190 lb) 08/14/22 79.6 kg (175 lb 6.4 oz) 05/10/22 86.1 kg (189 lb 14.4 oz) 05/09/22 85.7 kg (189 lb) Current Nutrition Therapies: Adult diet Regular; 5 carb choices (75 gm/meal) Current Oral Intake Average Meal Intake: 26-50% (per pt report) Average Supplements Intake: None Ordered Anthropometric Measures: Height: 177.8 cm (5' 10) Current Body Weight: 78 kg (172 lb) (bed scale today) Weight Source: Stated Admission Body Weight: 81.6 kg (180 lb) Usual Body Weight: 86.2 kg (190 lb) (10/2022 per records. pt unsure of wt hx) % Weight Change (Calculated): -9.5 [place] Body Weight (lbs) (Calculated): 166 lbs [place] Body Weight (Kg) (Calculated): 75 kg % [place] Body Weight (Calculated): 103.6 % BMI (kg/m2) (Calculated): 24.7 BMI Categories: Overweight (BMI 25.0-29.9) Nutrition Diagnosis: Increased nutrient needs related to (acute illness) as evidenced by poor intake prior to admission Altered nutrition-related lab values related to endocrine dysfuntion as evidenced by lab values Nutrition Interventions: Nutrition Education/Counseling: Education declined Coordination of Nutrition Care: Continue to monitor while inpatient Plan of Care discussed with: patient Goals: Goals: PO intake 75% or greater, by next RD assessment Nutrition Monitoring and Evaluation: Behavioral-Environmental Outcomes: Readiness for Change Food/Nutrient Intake Outcomes: Food and Nutrient Intake, Supplement Intake Physical Signs/Symptoms Outcomes: Biochemical Data, Chewing or Swallowing, GI Status, Nausea or Vomiting, Fluid Status or Edema, Hemodynamic Status, Nutrition Focused Physical Findings, Skin, Weight Discharge Planning: Continue current diet Nadja Cisse RD Contact: *[phone] or via Secure Chat [facility] 02-16-2024 Consult note Associated Order (s): IP CONSULT TO DIETITIAN Nutrition Assessment Type and Reason for Visit: Initial, Consult (nutritional supplements) Nutrition Recommendations/Plan: Per mnt protocol will add 5 carb choices (75 gm/meal) to help with blood sugar management Per mnt protocol will add Ensure High Protein bid (160 kcal, 16 gm prot) Please record meal and supplement intakes in RN Flowsheets Request standing scale wt as able RD to monitor PO intake, labs, weight -follow up weekly Malnutrition Assessment: Malnutrition Status: At risk for malnutrition (Comment) (recent poor intake, wt loss) Context: Acute Illness Findings of the 6 clinical characteristics of malnutrition: Energy Intake: Mild decrease in energy intake (Comment) (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 male admits with nausea and vomiting, dehydration, DKA. pt reports n/v improved and tolerated breakfast today. 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 Pt declines need for diet review at this time states he is familiar with CHO controlled diet but admits to non-compliance pt declines written diet materials. bed scale wt 172 lb Estimated Daily Nutrient Needs: Energy Requirements Based On: Kcal/kg Weight Used for Energy Requirements: [place] Weight for Energy Calculation (kg): 75 kg Total Energy Requirements (kcals/day): 4584-0592 (25-30) Weight Used for Protein Requirements: [place] Weight in Kg Used for Protein Requirements: 75 kg Estimated Total Protein (g/day): 75-90 (1.0-1.2) Estimated Daily Total Fluid (ml/day): per MD Nutrition Related Findings: no ariel LE edema, bgluc 207, 186 ( A1c 9.4 09/2023), k+ 3.4, c02 18, cr .52, ca 7.8, alkphos 255, alt 74, wbc 13. meds insulin, reglan. bed scale wt today 172 lb = 7.5% wt loss in 4.5 months and 9% loss > 1 year noted -not considered clinically significant Wound Type: None 02/15/24 81.6 kg (180 lb) 10/01/23 84.4 kg (186 lb) 05/27/23 85.5 kg (188 lb 9.6 oz) 11/13/22 86.2 kg (190 lb) 08/14/22 79.6 kg (175 lb 6.4 oz) 05/10/22 86.1 kg (189 lb 14.4 oz) 05/09/22 85.7 kg (189 lb) Current Nutrition Therapies: Adult diet Regular; 5 carb choices (75 gm/meal) Current Oral Intake Average Meal Intake: 26-50% (per pt report) Average Supplements Intake: None Ordered Anthropometric Measures: Height: 177.8 cm (5' 10) Current Body Weight: 78 kg (172 lb) (bed scale today) Weight Source: Stated Admission Body Weight: 81.6 kg (180 lb) Usual Body Weight: 86.2 kg (190 lb) (10/2022 per records. pt unsure of wt hx) % Weight Change (Calculated): -9.5 [place] Body Weight (lbs) (Calculated): 166 lbs [place] Body Weight (Kg) (Calculated): 75 kg % [place] Body Weight (Calculated): 103.6 % BMI (kg/m2) (Calculated): 24.7 BMI Categories: Overweight (BMI 25.0-29.9) Nutrition Diagnosis: Increased nutrient needs related to (acute illness) as evidenced by poor intake prior to admission Altered nutrition-related lab values related to endocrine dysfuntion as evidenced by lab values Nutrition Interventions: Nutrition Education/Counseling: Education declined Coordination of Nutrition Care: Continue to monitor while inpatient Plan of Care discussed with: patient Goals: Goals: PO intake 75% or greater, by next RD assessment Nutrition Monitoring and Evaluation: Behavioral-Environmental Outcomes: Readiness for Change Food/Nutrient Intake Outcomes: Food and Nutrient Intake, Supplement Intake Physical Signs/Symptoms Outcomes: Biochemical Data, Chewing or Swallowing, GI Status, Nausea or Vomiting, Fluid Status or Edema, Hemodynamic Status, Nutrition Focused Physical Findings, Skin, Weight Discharge Planning: Continue current diet Nadja Cisse RD Contact: *[phone] or via Secure Chat documented in this encounter [facility] 02-16-2024 Note Formatting of this n ote might be different from the original. Care Managment Initial Assessment Date: 02/16/2024 Patient Name: Ganesh Bush : 1955 Patient Information Source of Information: Patient Cognition/Language: WFL - Within Functional Limits Permission given to speak with patient sales training representative/caregiver as indicated: Confirmation of Payer with patient/family: Yes Payer Name: [facility] Medicare / Medicaid : No Confirmation of Primary Care Physician: Confirmed PCP Name: Dr. Lr Seen in last 2 years?: Yes Primary Caregiver: Self If assistance needed, confirmed caregiver ready, willing and able to care for patient at discharge: Yes Confirmed with: Per patient, his spouse is ready to assist as needed. Living Arrangements Current Residence: House Number of Floors 2 Number of Entry Steps: 4 Bed/Bath Levels: Both first floor Facility: Facility Name: Plan to Return: Yes Lives with: Spouse/significant other Support Systems: Spouse/significant other, Children Activities of Daily Living Ambulation: Independent Bathing/Dressing: Independent Elimination/Continence/Toileting: Independent Feeding: Independent Who Assists with Activities of Daily Living: Instrumental Activities of Daily Living Prescription Coverage: Yes [facility] Used[facility] Medication Management: Independent Transportation/Shopping: Independent Transportation Mode: Car Needs Assistance with Transportation at Discharge: No (Spouse or dtr) Meal Preparation: Independent Laundry/Cleaning: Independent Finances/Bill Paying: Independent Communication: Independent Types of Care Services/Equipment Utilized Care Services: (n/a) Dialysis Type: NA Durable Medical Equipment: Glucometer Patient's Goal/Discharge Plan Patient expects to be discharged to: Home Discharge Planning Actions: Continue to follow, No needs identified Patient's Choice Rights and [employer] and Collaborative Relationships Disclosed as Indicated for Post-Acute Care: Interdisciplinary Team Engagement: Social Work Referral for: Additional Information: Spoke to patient at bedside. Introduced self and role. Assessment information taken from both conversation with patient and EPIC chart review. Admission Dx: nausea and vomiting; DKA Clinical Update: presented with progressively worsening abdominal pain, heartburn, nausea, emesis, and dyspnea. Lab work on admission consistent with DKA. DKA has resolved and patient feels improved with no new symptoms. Consults: IP CONSULT TO DIETITIAN PT/OT: no PT/OT consults ordered but patient is independent with all ADL/IADLs and up ad kit at baseline Current DCP: Home Discharge planning needs discussed. Patient denied any needs. Patient verbalizes understanding and is in agreement with POC. States spouse is ready, willing, and able to assist as needed when patient returns home. TCC will continue to follow. Manuel Nunez RN [facility] 02-16-2024 Note Formatting of this n ote might be different from the original. Care Managment Initial Assessment Date: 02/16/2024 Patient Name: Ganesh Bush : 1955 Patient Information Source of Information: Patient Cognition/Language: WFL - Within Functional Limits Permission given to speak with patient sales training representative/caregiver as indicated: Confirmation of Payer with patient/family: Yes Payer Name: [facility] Medicare / Medicaid [place]: No Confirmation of Primary Care Physician: Confirmed PCP Name: Dr. Lr Seen in last 2 years?: Yes Primary Caregiver: Self If assistance needed, confirmed caregiver ready, willing and able to care for patient at discharge: Yes Confirmed with: Per patient, his spouse is ready to assist as needed. Living Arrangements Current Residence: House Number of Floors 2 Number of Entry Steps: 4 Bed/Bath Levels: Both first floor Facility: Facility Name: Plan to Return: Yes Lives with: Spouse/significant other Support Systems: Spouse/significant other, Children Activities of Daily Living Ambulation: Independent Bathing/Dressing: Independent Elimination/Continence/Toileting: Independent Feeding: Independent Who Assists with Activities of Daily Living: Instrumental Activities of Daily Living Prescription Coverage: Yes [facility]acy Used: [facility] Medication Management: Independent Transportation/Shopping: Independent Transportation Mode: Car Needs Assistance with Transportation at Discharge: No (Spouse or dtr) Meal Preparation: Independent Laundry/Cleaning: Independent Finances/Bill Paying: Independent Communication: Independent Types of Care Services/Equipment Utilized Care Services: (n/a) Dialysis Type: NA Durable Medical Equipment: Glucometer Patient's Goal/Discharge Plan Patient expects to be discharged to: Home Discharge Planning Actions: Continue to follow, No needs identified Patient's Choice Rights and [employer] and Collaborative Relationships Disclosed as Indicated for Post-Acute Care: Interdisciplinary Team Engagement: Social Work Referral for: Additional Information: Spoke to patient at bedside. Introduced self and role. Assessment information taken from both conversation with patient and EPIC chart review. Admission Dx: nausea and vomiting; DKA Clinical Update: presented with progressively worsening abdominal pain, heartburn, nausea, emesis, and dyspnea. Lab work on admission consistent with DKA. DKA has resolved and patient feels improved with no new symptoms. Consults: IP CONSULT TO DIETITIAN PT/OT: no PT/OT consults ordered but patient is independent with all ADL/IADLs and up ad kit at baseline Current DCP: Home Discharge planning needs discussed. Patient denied any needs. Patient verbalizes understanding and is in agreement with POC. States spouse is ready, willing, and able to assist as needed when patient returns home. TCC will continue to follow. Manuel Nunez RN [facility] [employer] 02-16-2024 History of Present illness Narrative ICU Transfer Checklist Transfer Med Reconciliation (resume home meds if able, convert to PO if able) Complete Antibiotics (name, indication, duration, convert to PO if able) None Steroid (indication, duration, convert to PO if able) None Anticipated [place] Medications (ICU initiated) or Dose Changes and Indication Yes, addressed in today's progress note Permanently Discontinued Home Medications and Reason for medication contraindication No [place] Catheter (please remove if able. Note: place DC order) No Central Line (please remove if able. Note: place DC order) No Transfer Discussed [place] [facility] [place] additional questions for ICU team within 24 hours of ICU transfer, page [phone] for clarifications. MICU Progress Note Ganesh Bush : 1955(68 y.o.) Date: February 16, 2024 Team: MICU Attending: Lane Maldonado MD Subjective: Hospital Summary: Patient is a 68-year-old male with a history of insulin-dependent DM, tobacco abuse, hypothyroidism who presented to [facility] 02/15/24 with progressively worsening abdominal pain, heartburn, nausea, emesis, dyspnea. Lab work on admission consistent with DKA. He stated he had not been taking his insulin consistently over the past few days due to GI intolerance and poor oral intake. He was started on DKA protocol and admitted to ICU for further management. Interval Events: DKA resolved overnight. He feels significantly improved overall. He has no new symptoms. He is hemodynamically stable and in no acute distress. Scheduled Meds:acetaminophen, 1,000 mg, Oral, q8h enoxaparin, 40 mg, SubCUTAneous, Daily influenza, 0.5 mL, IntraMUSCular, Prior to discharge insulin glargine, 14 Units, SubCUTAneous, Nightly insulin lispro, 0-12 Units, SubCUTAneous, TID WC And insulin lispro, 0-12 Units, SubCUTAneous, Nightly insulin lispro, 16 Units, SubCUTAneous, TID WC levothyroxine, 125 mcg, Oral, qAM AC metoclopramide, 10 mg, IntraVENous, q6h mupirocin, 1 Application, Nasal, BID pantoprazole (ProtoNix) 40 mg in sodium chloride (PF) 0.9 % 10 mL injection, 40 mg, IntraVENous, qAM AC rosuvastatin, 40 mg, Oral, Daily Continuous Infusions:dextrose 5 % and sodium chloride 0.45 %, 250 mL/hr, Last Rate: 250 mL/hr (02/16/24 0552) Objective: VITALS: BP 131/87 Pulse 64 Temp 37.1 C (98.8 F) (Oral) Resp 15 Ht 1.778 m (5' 10) Wt 81.6 kg (180 lb) SpO2 93% BMI 25.83 kg/m CURRENT PULSE OXIMETRY: SpO2: 93 % I/O: 02/14 0700 - 02/15 0659 In: 2992 [I.V.:2992] Out: 800 [Urine:800] Ventilator Settings: Oxygen Delivery: Invasive Lines / Tubes / Drains: Peripheral IV 02/15/24 Anterior;Left;Proximal Forearm (Active) Number of days: 0 Peripheral IV 02/15/24 Right Forearm (Active) Number of days: 0 Wounds: Constitutional: General Appearance: [x]WDWN []Obese []Cachectic []Thin []ill Eyes: Inspection of Pupils/Irises: Pupils round and react: [x]Yes []No Sclera: []Icteric [x]Non-Icteric Inspection of Conjunctiva/Lids Conjunctiva: []Injected [x]Non-Injected Lids: [x]Intact []Lesion Present ENT/Mouth:: External Inspection of ears/nose [x] Normal [] Scar/Lesion/Mass Inspection of teeth/lips/gums: Dentition: [x][place] Teeth []Dentures Lips/Gums [x]Intact []Lesion Present Oropharynx exam: Mucosa [][place] []Moist [x]Dry Neck: External Appearance: Overall Appearance:[x]Normal []Lesion/Mass/Crepitus Present Trachea midline [x]Yes []No Thyroid [x]Normal []Enlarged []Tender []Mass []Absent Respiratory:: Respiratory effort: []Labored [x]Non-Labored [] Mechanically-Ventilated Auscultation: [x]Clear []Crackles []Wheezes []Rhonchi Percussion/Palpation [x]Dullness []Hyperresonance []Tactile Fremitus Cardiovascular:: Auscultation: Rate [x]Regular []Irregular []Tachycardia []Bradycardia Rhythm: [x]Regular []Irregular Murmur: []Present [x]Absent Extremities: Peripheral Edema: []Present [x]Absent Varicosities: []Present [x]Absent GI: Abdomen: Palpation: [x]Soft []Firm []Tender [x]Non-Tender []Distended [x]Non-distended Mass: []Present [x]Absent Bowel Sounds [x]Present []Absent Hernia []Present [x]Absent Liver and Spleen: []Hepatosplenomegaly [x]Organomegaly Absent Musculoskeletal: Inspection of Digits and Nails: Cyanosis: []Present [x]Absent Clubbing: []Present [x]Absent Ischemia: []Present [x]Absent Infection: []Present [x]Absent Extremities: [x]TRACY Equally - Except ([]RUE []RLE []LUE []LLE) Strength/Tone: Intact and Normal ([]RUE []RLE []LUE []LLE) Skin: Inspection: Normal[x] Rash[] Lesion[] Ulcer[] Palpation: [x]Warm []Cool []Dry []Clammy []Nodules []Induration []Skin-tightening Cap-Refill [x] <3 sec [] >3 seconds (delayed) Neurologic: Sensation grossly intact [x] Psych: Mental Status Alert:: Yes[x] No[] Oriented []x0 []x1 []x2 [x]x3 Mood/Affect [x]Normal []Flat []Agitated []Depressed []Anxious []Calm []Sedated []NAD Select Labs within last 24 hours- BMP: Recent Labs 02/15/24 1558 02/15/24194802/16/24 0009 NA 132* 133* 132* K 3.9 3.5 3.1* CL 86* 98 101 CO2 <5* 13* 19* BUN 17 15 13 CREATININE 0.77 0.56* 0.51* CALCIUM 9.9 8.7 8.3* MG 2.1 2.0 2.0 PHOS 4.8* 2.4* 2.6 LFTS: Recent Labs 02/15/24 155 AST 31 ALT 74* PROT 9.7* BILITOT 0.8 ALKPHOS 255* LIPASE 101 Glucose: Recent Labs 02/15/24 1558 02/15/24 1651 02/15/24 1751 02/15/24 1904 02/15/24194802/15/24 2008 02/15/24 2110 02/15/24 2210 02/15/24 2305 02/16/24 0007 02/16/24 0009 02/16/24 0104 GLUCOSE 521* -- -- -- 241* -- -- -- -- -- 131* -- POCGLU -- < > 245* 243* -- 203* 204* 164* 145* 121* -- 92 BHYDRXBUT 110.00* -- -- -- 31.40* -- -- -- -- -- 1.58 -- < > = values in this interval not displayed. Procal: No results for input(s): PROCAL in the last 72 hours. CBC: Recent Labs 02/15/24 16302/15/241948 WBC -- 17.3* HGB 19.7* 16.1 HCT -- 46.4 PLT -- 343 MCV -- 89.4 RDW -- 13.0 ABGs: No results for input(s): PHART, ENJ4VPL, PO2ART, JJX9FTX, W2UBSBAW, FIO2A in the last 72 hours. Lactic Acid: No lab exists for component: LACTA INR: No results for input(s): INR in the last 72 hours. Cardiac Injury Profile: Recent Labs 02/15/24 1558 TROPONINI <0.012 Labs in Last 3 months: Lab Results Component Value Date TSH 47.73 (H) 05/27/2023 PSA 1.043 10/23/2021 Microbiology- Urine Cx: No components found for: LABURIN Blood Cx: No components found for: BC Sputum Cx: No components found for: RESPCULTURE Gram Stain: No results found for: LABGRAM PNA PCR: No components found for: PNPCRPNL COVID19: No results found for: COVID19 Legionella Ag: No components found for: LEGIONELLAANTIGEN Strep Ag: No lab exists for component: STREPNEUMAGU Imaging- CXR (02/16/24) IMPRESSION: No acute cardiopulmonary disease. Assessment and Plan: Principal Problem: Nausea and vomiting, unspecified vomiting type Assessment: DKA, resolved Insulin-dependent DM Metabolic acidosis, improved Hypothyroidism GERD Tobacco abuse Plan: - DKA resolved with appropriate treatment, transitioned to previously prescribed basal-bolus insulin regimen - Advance diet as tolerated - Suspect non-compliance is the etiology in the setting of recent GI illness - He received a GI cocktail for heartburn, symptoms improved this morning, EKG non-ischemic, troponin negative - CXR showed no acute process - Continue home Synthroid - Stable for transfer GI Prophylaxis: pantoprazole 40mg daily DVT Prophylaxis: lovenox 40 q 24hr - creatinine clearance >30 Code Status: Full Code Disposition: Transfer to [facility] with Telemetry Time spent preparing to see the patient, obtaining/reviewing separately obtained history, completing an appropriate medical examination of the patient, ordering medications/tests/procedures, documenting clinical information on the EMR, and/or coordinating care is a subsequent visit: 35 minutes (Level II). Lane Maldonado MD Pulmonary & Critical Care Medicine [facility] Pager #[phone] documented in this encounter [facility] 02-16-2024 Note Formatting of this n ote might be different from the original. Accepted ICU transfer from Dr. Escalante [employer] Phone: 02-16-2024 Note Formatting of this n ote might be different from the original. Accepted ICU transfer from Dr. Escalante [employer] Phone: 02-16-2024 Note MICU Progress Note Ganesh Bush : 1955(68 y.o.) Date: February 16, 2024 Team: MICU Attending: Lane Maldonado MD Subjective: Hospital Summary: Patient is a 68-year-old male with a history of insulin-dependent DM, tobacco abuse, hypothyroidism who presented to [facility] 02/15/24 with progressively worsening abdominal pain, heartburn, nausea, emesis, dyspnea. Lab work on admission consistent with DKA. He stated he had not been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 Note Okay, thank you [facility] 09-28-2022 Miscellaneous Notes Okay, thank you Pt was a no show today for OV 09/28/[address] Duval. Pt was a no show for EUS/ERCP procedure on 09/10/22. Will close out consult at this time. documented in this encounter [facility] 09-28-2022 Telephone encounter Note Pt was a no show today for OV 09/28/[address] Duval. Pt was a no show for EUS/ERCP procedure on 09/10/22. Will close out consult at this time. [facility] 09-10-2022 Telephone encounter Note Pt no show for 09/[address] Duval, he didn't show up today - lets plan on seeing him in office next available. Pt scheduled for OV on 09/28 at 0900. [facility] 09-10-2022 Miscellaneous Notes Pt no show for 09/[address] Duval, he didn't show up today - lets plan on seeing him in office next available. Pt scheduled for OV on 09/28 at 0900. S: Called patient to inform him that his procedure time on 09/10 has been changed to 9 am with arrival time at 8 am. B: today A: Spoke to the patient and advised that his procedure time has been changed to 9 am with arrival time at 8 am. Pt verbalized understanding. Called change into surgery scheduling, spoke to Lazara, she changed his time to 9 am. R: Patient instructed to call back with worsening symptoms, concerns or questions. S: Called patient to inform that procedure time has been changed for 09/10. B: third attempt and My chart messages A: No answer on patient phone # listed and on 's phone listed. VM not set up and VM box is full. R: Waiting for response from patient. S: Called patient to move his procedure time up for 09/10. B: 2nd attempt and sent a My Chart message. A: Spoke to person who answered the phone, requested that patient call back the office about his procedure on Saturday. Person states they will give the message to him and have him call office back. Person states our office number came up on his phone. R: Will await a return call. S: Called patient to change the time of procedure on 09/10. B: today A: No answer on patient phone number or on 's phone. Patient's phone said VM box not set up, 's said VM box is full. R: Will send a My Chart message. Advised in message we need to move his procedure to an earlier time on 09/10 with arrival time at 8 am or 6:30 am. Number to the office provided. S: Called patient to schedule EUS/ERCP procedure. B: today A: Spoke to the patient and scheduled EUS/ERCP procedure with Dr. Duval on Saturday, 09/10 at 12 pm with arrival time at 11 am. Pt advised it is here at the [facility]. He is aware to have a wrecker driver take him home and nothing to eat/drink after midnight. Advised to speak with provider that manages his insulin to see if need to make any adjustments to the insulin the day of procedure. He verbalized understanding to all. No allergy to contrast dye per patient. Pt states he is not on any anticoagulants. Mailed prep instructions to address verified on the chart. (Patient lives about an hour away). Uploaded to My Chart also. Submitted to surgery scheduling, case #[id number] R: Patient instructed to call back with worsening symptoms, concerns or questions. Can schedule for eus/ercp Please review referral from [facility] for outpatient ERCP. Pt was discharged on 08/18/22. Incoming call from Dr Shell at [facility] where patient is admitted for vomiting. Per Dr. Shell, patient had US that showed CBD dilation and MRCP completed. Ultrasound 08/14/22 IMPRESSION: The common bile duct is dilated measuring 9 mm in diameter. Two gallbladder polyps versus adherent stones. Follow-up ultrasound in six months is recommended. MRCP 08/15/22 IMPRESSION: 1. Respiratory motion artifact limits evaluation to some extent. 2. Mild dilatation of the common bile duct which demonstrates some degree of distal tapering. Suspicion of intraluminal filling defect/debris within the common bile duct. Consider correlation with ERCP. 3. Gallbladder polyps better seen on ultrasound. 4. Hepatic steatosis. 5. Small sliding-type hiatal hernia with apparent asymmetric wall thickening, posterior gastric fundus. Dr. Wilson is recommending an ERCP. Can be done as an outpatient. Pt likely to be discharged today. documented in this encounter [facility] 09-06-2022 Telephone encounter Note S: Called patient to inform him that his procedure time on 09/10 has been changed to 9 am with arrival time at 8 am. B: today A: Spoke to the patient and advised that his procedure time has been changed to 9 am with arrival time at 8 am. Pt verbalized understanding. Called change into surgery scheduling, spoke to Lazara, she changed his time to 9 am. R: Patient instructed to call back with worsening symptoms, concerns or questions. [facility] 09-05-2022 Telephone encounter Note S: Called patient to inform that procedure time has been changed for Mon 09/10. B: third attempt and My chart messages A: No answer on patient phone # listed and on 's phone listed. VM not set up and VM box is full. R: Waiting for response from patient. [facility] 09-05-2022 Miscellaneous Notes S: Called patient to inform that procedure time has been changed for 09/10. B: third attempt and My chart messages A: No answer on patient phone # listed and on 's phone listed. VM not set up and VM box is full. R: Waiting for response from patient. S: Called patient to move his procedure time up for 09/10. B: 2nd attempt and sent a My Chart message. A: Spoke to person who answered the phone, requested that patient call back the office about his procedure on Saturday. Person states they will give the message to him and have him call office back. Person states our office number came up on his phone. R: Will await a return call. S: Called patient to change the time of procedure on 09/10. B: today A: No answer on patient phone number or on 's phone. Patient's phone said VM box not set up, 's said VM box is full. R: Will send a My Chart message. Advised in message we need to move his procedure to an earlier time on 09/10 with arrival time at 8 am or 6:30 am. Number to the office provided. S: Called patient to schedule EUS/ERCP procedure. B: today A: Spoke to the patient and scheduled EUS/ERCP procedure with Dr. Duval on 09/10 at 12 pm with arrival time at 11 am. Pt advised it is here at the [facility]. He is aware to have a wrecker driver take him home and nothing to eat/drink after midnight. Advised to speak with provider that manages his insulin to see if need to make any adjustments to the insulin the day of procedure. He verbalized understanding to all. No allergy to contrast dye per patient. Pt states he is not on any anticoagulants. Mailed prep instructions to address verified on the chart. (Patient lives about an hour away). Uploaded to My Chart also. Submitted to surgery scheduling, case #[id number] R: Patient instructed to call back with worsening symptoms, concerns or questions. Can schedule for eus/ercp Please review referral from [facility] for outpatient ERCP. Pt was discharged on 08/18/22. Incoming call from Dr Shell at [facility] where patient is admitted for vomiting. Per Dr. Shell, patient had US that showed CBD dilation and MRCP completed. Ultrasound 08/14/22 IMPRESSION: The common bile duct is dilated measuring 9 mm in diameter. Two gallbladder polyps versus adherent stones. Follow-up ultrasound in six months is recommended. MRCP 08/15/22 IMPRESSION: 1. Respiratory motion artifact limits evaluation to some extent. 2. Mild dilatation of the common bile duct which demonstrates some degree of distal tapering. Suspicion of intraluminal filling defect/debris within the common bile duct. Consider correlation with ERCP. 3. Gallbladder polyps better seen on ultrasound. 4. Hepatic steatosis. 5. Small sliding-type hiatal hernia with apparent asymmetric wall thickening, posterior gastric fundus. Dr. Wilson is recommending an ERCP. Can be done as an outpatient. Pt likely to be discharged today. documented in this encounter [facility] 09-05-2022 Telephone encounter Note S: Called patient to move his procedure time up for 09/10. B: 2nd attempt and sent a My Chart message. A: Spoke to person who answered the phone, requested that patient call back the office about his procedure on Saturday. Person states they will give the message to him and have him call office back. Person states our office number came up on his phone. R: Will await a return call. [facility] 09-04-2022 Telephone encounter Note S: Called patient to change the time of procedure on 09/10. B: today A: No answer on patient phone number or on 's phone. Patient's phone said VM box not set up, 's said VM box is full. R: Will send a My Chart message. Advised in message we need to move his procedure to an earlier time on 09/10 with arrival time at 8 am or 6:30 am. Number to the office provided. [facility] 09-04-2022 Miscellaneous Notes S: Called patient to change the time of procedure on 09/10. B: today A: No answer on patient phone number or on 's phone. Patient's phone said VM box not set up, 's said VM box is full. R: Will send a My Chart message. Advised in message we need to move his procedure to an earlier time on 09/10 with arrival time at 8 am or 6:30 am. Number to the office provided. S: Called patient to schedule EUS/ERCP procedure. B: today A: Spoke to the patient and scheduled EUS/ERCP procedure with Dr. Duval on 09/10 at 12 pm with arrival time at 11 am. Pt advised it is here at the [facility]. He is aware to have a wrecker driver take him home and nothing to eat/drink after midnight. Advised to speak with provider that manages his insulin to see if need to make any adjustments to the insulin the day of procedure. He verbalized understanding to all. No allergy to contrast dye per patient. Pt states he is not on any anticoagulants. Mailed prep instructions to address verified on the chart. (Patient lives about an hour away). Uploaded to My Chart also. Submitted to surgery scheduling, case #[id number] R: Patient instructed to call back with worsening symptoms, concerns or questions. Can schedule for eus/ercp Please review referral from [facility] for outpatient ERCP. Pt was discharged on 08/18/22. Incoming call from Dr Shell at [facility] where patient is admitted for vomiting. Per Dr. Shell, patient had US that showed CBD dilation and MRCP completed. Ultrasound 08/14/22 IMPRESSION: The common bile duct is dilated measuring 9 mm in diameter. Two gallbladder polyps versus adherent stones. Follow-up ultrasound in six months is recommended. MRCP 08/15/22 IMPRESSION: 1. Respiratory motion artifact limits evaluation to some extent. 2. Mild dilatation of the common bile duct which demonstrates some degree of distal tapering. Suspicion of intraluminal filling defect/debris within the common bile duct. Consider correlation with ERCP. 3. Gallbladder polyps better seen on ultrasound. 4. Hepatic steatosis. 5. Small sliding-type hiatal hernia with apparent asymmetric wall thickening, posterior gastric fundus. Dr. Wilson is recommending an ERCP. Can be done as an outpatient. Pt likely to be discharged today. documented in this encounter [facility] 08-23-2022 Telephone encounter Note S: Called patient to schedule EUS/ERCP procedure. B: today A: Spoke to the patient and scheduled EUS/ERCP procedure with Dr. Duval on Saturday, 09/10 at 12 pm with arrival time at 11 am. Pt advised it is here at the [facility]. He is aware to have a wrecker driver take him home and nothing to eat/drink after midnight. Advised to speak with provider that manages his insulin to see if need to make any adjustments to the insulin the day of procedure. He verbalized understanding to all. No allergy to contrast dye per patient. Pt states he is not on any anticoagulants. Mailed prep instructions to address verified on the chart. (Patient lives about an hour away). Uploaded to My Chart also. Submitted to surgery scheduling, case #[id number] R: Patient instructed to call back with worsening symptoms, concerns or questions. [facility] 08-23-2022 Miscellaneous Notes S: Called patient to schedule EUS/ERCP procedure. B: today A: Spoke to the patient and scheduled EUS/ERCP procedure with Dr. Duval on Saturday, 09/10 at 12 pm with arrival time at 11 am. Pt advised it is here at the [facility]. He is aware to have a wrecker driver take him home and nothing to eat/drink after midnight. Advised to speak with provider that manages his insulin to see if need to make any adjustments to the insulin the day of procedure. He verbalized understanding to all. No allergy to contrast dye per patient. Pt states he is not on any anticoagulants. Mailed prep instructions to address verified on the chart. (Patient lives about an hour away). Uploaded to My Chart also. Submitted to surgery scheduling, case #[id number] R: Patient instructed to call back with worsening symptoms, concerns or questions. Can schedule for eus/ercp Please review referral from [facility] for outpatient ERCP. Pt was discharged on 08/18/22. Incoming call from Dr Shell at [facility] where patient is admitted for vomiting. Per Dr. Shell, patient had US that showed CBD dilation and MRCP completed. Ultrasound 08/14/22 IMPRESSION: The common bile duct is dilated measuring 9 mm in diameter. Two gallbladder polyps versus adherent stones. Follow-up ultrasound in six months is recommended. MRCP 08/15/22 IMPRESSION: 1. Respiratory motion artifact limits evaluation to some extent. 2. Mild dilatation of the common bile duct which demonstrates some degree of distal tapering. Suspicion of intraluminal filling defect/debris within the common bile duct. Consider correlation with ERCP. 3. Gallbladder polyps better seen on ultrasound. 4. Hepatic steatosis. 5. Small sliding-type hiatal hernia with apparent asymmetric wall thickening, posterior gastric fundus. Dr. Wilson is recommending an ERCP. Can be done as an outpatient. Pt likely to be discharged today. documented in this encounter [facility] [employer] 08-21-2022 Telephone encounter Note Can schedule for eus/ercp [facility] [employer] Work Phone: 08-20-2022 Telephone encounter Note Please review referral from [facility] for outpatient ERCP. Pt was discharged on 08/18/22. [facility] 08-20-2022 Miscellaneous Notes Please review referral from [facility] for outpatient ERCP. Pt was discharged on 08/18/22. Incoming call from Dr Shell at [facility] where patient is admitted for vomiting. Per Dr. Shell, patient had US that showed CBD dilation and MRCP completed. Ultrasound 08/14/22 IMPRESSION: The common bile duct is dilated measuring 9 mm in diameter. Two gallbladder polyps versus adherent stones. Follow-up ultrasound in six months is recommended. MRCP 08/15/22 IMPRESSION: 1. Respiratory motion artifact limits evaluation to some extent. 2. Mild dilatation of the common bile duct which demonstrates some degree of distal tapering. Suspicion of intraluminal filling defect/debris within the common bile duct. Consider correlation with ERCP. 3. Gallbladder polyps better seen on ultrasound. 4. Hepatic steatosis. 5. Small sliding-type hiatal hernia with apparent asymmetric wall thickening, posterior gastric fundus. Dr. Wilson is recommending an ERCP. Can be done as an outpatient. Pt likely to be discharged today. documented in this encounter [facility] 08-18-2022 Hospital course Narrative Images from the original note were not included. Discharge Summary Ganesh Bush : 1955 ADMIT DATE: 08/14/2022 DISCHARGE DATE: 08/18/2022 PRIMARY CARE PHYSICIAN: Andrea Lr VISIT STATUS: Admission CODE STATUS: Full Code DISCHARGE DIAGNOSES: Principal Problem: Vomiting HOSPITAL COURSE: Ganesh is a 66 y.o. male who presents to the emergency department with chief complaint of feeling unwell for the past several days, as well as vomiting since midnight. He also endorses hyperglycemia, stating that his blood sugars were in the 300s today. He states he is compliant with his diabetic meds but hasn't taken insulin today. Of note, the patient endorses using half a gram to 1 g of fentanyl per day but states that his last use was 2 days ago. states that he would like help to get off of that as well. 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 Continue ativan 0.5mg po bid prn for anxiety. Addiction med following. They added baclofen and clonidine. Patient doing good today he states. No further symptoms. # DM type 1 (Juvenile type) with hyperglycemia/severely uncontrolled diabetes - continue IVF and ISS/accuchecks. Hgb A1C was 7.5. Endocrine following/managing. BG better but still not optimized yet. Last night BG dropped to 68 and lantus was held. Today, BG shot up to 430. this am BG much better at 175. Patient is currently on 26 units of lantus nightly and 18 units lispro tid. Spoke with Dr. Johnston on [employer] chat and she has okayed for discharge on current regimen. # Chronic hypothyroidism - resumed home synthroid # HLD - resumed home crestor # Leukocytosis - likely reactive. Blood cultures ordered in ER, pending (so far negative). Procalc was normal at 0.05. monitor. # Abnormal US showing dilated CBD 9mm and two gallbladder polyps versus adherent stones. Radiology recommending follow-up ultrasound in six months outpatient. GI saw for dilated CBD and states LFTs WNL making obstructive process less likely. Also patient had remote history of CBD stent which was not visualized on CT or ultrasound. Patient is not aware that the stent has been removed. GI ordered MRCP which showed Mild dilatation of the common bile duct which demonstrates some degree of distal tapering. Radiology has suspicion of intraluminal filling defect/debris within the common bile duct. The recommended to consider correlation with ERCP. Also there was Gallbladder polyps better seen on ultrasound, Hepatic steatosis and Small sliding-type hiatal hernia with apparent asymmetric wall thickening, posterior gastric fundus. Dr Wilson recommended ERCP outpatient with [facility] GI Dr. Ventura as they are out of his network. I called to make appt but staff states they need to discuss with Dr. Ventura for date and cannot give me date or time yet. They will contact patient directly for date and time once they arrange it. # Abnormal CT abdomen/pelvis showing small hiatal hernia with suggestion of asymmetric eccentric wall thickening in the gastric fundus. Radiologist is recommending correlation with direct visualization. GI saw and EGD was done and showed: LA Grade B erosive esophagitis with no bleeding. Biopsied. Medium-sized hiatal hernia. Erythematous and granular mucosa in the antrum. Biopsied. Duodenal erosions without bleeding. Biopsied. GI Recommendation: - Resume previous diet. - Continue present medications. - Await pathology results. - PPI daily (currently on protonix IV daily) # Soft tissue thickening in the bilateral inferior anterior abdominal wall on CT - Radiology recommended correlation with physical exam which on exam did NOT reveal any induration, mass/lump etc. Appears to just be just soft fatty tissue with no real lump or anything thats appreciable on palp. # Hep C AB+ - per GI, further work-up and treatment for hepatitis C as an outpatient with [facility] (Dr. Palacio) Physical exam: Cardiovascular: S1/S2 heard, RRR Respiratory: Clear to auscultation bilaterally Abdomen: Soft, non-tender, non-distended bowel sounds positive Musculoskeletal: No obvious deformities seen SIGNIFICANT DIAGNOSTIC STUDIES: As above CONSULTANTS: Endocrinology GI Addiction med RECOMMENDED NEXT STEPS: DISCHARGE MEDICATIONS: Medication List START taking these medications insulin pen needle 31G X 8 mm misc Use to inject 1-4 times daily as directed. Lantus SoloStar 100 UNIT/ML pen Generic drug: insulin glargine Inject 26 Units under the skin Nightly. pantoprazole 40 MG EC tablet Commonly known as: ProtoNix Take 1 tablet (40 mg) by mouth daily. Do not crush, chew, or split. CHANGE how you take these medications insulin lispro 100 UNIT/ML injection Commonly known as: HumaLOG KWIKPEN Inject 18 Units under the skin in the morning and 18 Units at noon and 18 Units in the evening. Inject with meals. What changed: how much to take how to take this when to take this additional instructions CONTINUE taking these medications aspirin 325 MG tablet Dexcom G6 spear fisher device Use as instructed Dexcom G6 Sensor misc 1 device every 10 days Dexcom G6 transmitter misc Use as instructed, 1 device every 90 days Easy Comfort Alcohol Pads pads USE 1 UNUSED PAD TO CLEAN SITE BEFORE TESTING OR INJECTING NINE TIMES DAILY insulin syringe-needle U-100 31G X 5/16 1 mL misc Commonly known as: Comfort EZ Insulin Syringe USE ONE UNUSED SYRINGE TO INJECT INSULIN FIVE TIMES DAILY levothyroxine 100 MCG tablet Commonly known as: Synthroid, Levoxyl Take 1 tablet (100 mcg) by mouth daily. lisinopril 5 MG tablet MULTIVITAMIN ADULT PO omega-3 acid ethyl esters 1 g capsule Commonly known as: Lovaza Pure Comfort Lancets 30G misc USE 1 UNUSED LANCET TO DRAW BLOOD. TWIST OFF THE PROTECTIVE CAP. PUSH THE LANCET FIRMLY ONTO THE CHOSEN SITE, THEN DISPOSE FOUR TIMES DAILY rosuvastatin 20 MG tablet Commonly known as: Crestor Take 1 tablet (20 mg) by mouth daily. * True Metrix Blood Glucose Test test strip Generic drug: glucose blood * OneTouch Verio test strip Generic drug: glucose blood INSERT 1 UNUSED TEST STRIP INTO METER, THEN APPLY BLOOD TO OBTAIN BLOOD GLUCOSE LEVEL FOUR TIMES DAILY * This list has 2 medication(s) that are the same as other medications prescribed for you. Read the directions carefully, and ask your doctor or other care provider to review them with you. STOP taking these medications insulin detemir 100 UNIT/ML pen Commonly known as: Levemir Where to Get Your Medications These medications were sent to [facility] [address] [place] [address] [facility] [id number] insulin lispro 100 UNIT/ML injection insulin pen needle 31G X 8 mm misc Lantus SoloStar 100 UNIT/ML pen pantoprazole 40 MG EC tablet DIET: Adult diet Regular; 4 carb choices (60 gm/meal) ACTIVITY: No restriction. COMPLEXITY OF FOLLOW UP: [] Moderate Complexity: follow up within 7-14 calendar days (51563) [] Severe Complexity: follow up within 7 calendar days (78382) FOLLOW UP TESTING, PENDING RESULTS OR REFERRALS AT TRANSITIONAL CARE VISIT: [] Yes [] No PENDING STUDIES: DISPOSITION: Home FACILITY/HOME CARE AGENCY NAME: Follow up with Dani Ventura MD [address] [facility] [phone] Follow up They will call you for date for ERCP. if you don't get a call by next week from them, then please call their office to check. [facility] Addiction IOP [address] [facility] [phone] Schedule an appointment as soon as possible for a visit [facility] Addiction IOP [address] [phone] Florentino Flowers MD [address] [facility] [address] [place] [phone] Follow up in 1 week(s) Also follow up with your PCP in 1 week INSTRUCTIONS TO MA/SW: Please call patient on day after discharge (must document patient contacted within 2 business days of discharge). FOLLOW UP QUESTIONS FOR MA/SW: 1. Did you get medications filled and taking them as instructed from discharge? 2. Are you following your discharge instructions from your hospital stay? 3. Please confirm patient is scheduled for a follow up appointment within the above time frame. DISCHARGE TIME: > 30 minutes SIGNED: SANTANA SHELL MD 08/18/2022, 12:51 PM documented in this encounter [facility] 08-17-2022 History of Present illness Narrative Images from the original note were not included. Hospitalist Progress Note 08/17/[id number]: Please page me ([phone]) for patient care issues. [phone]: Please page [facility] Hospitalist for any issues. Subjective: Admit Date: 08/14/2022 PCP: Andrea Lr MD Room#: B2-267/B2-267 A Interval History: patient states he is doing good today. He denies any chest pain or sob. No NV. No fevers or chills. He was hoping to go home. Adult diet Regular; 4 carb choices (60 gm/meal) @[id number]@ 24HR INTAKE/OUTPUT: No intake or output data in the 24 hours ending 08/17/22 1523 Past Medical History: Past Medical History: Diagnosis Date Diabetes mellitus (HCC) DKA (diabetic ketoacidoses) (HCC) 09/15/2015 GERD (gastroesophageal reflux disease)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 for chest pain and palpitations. Gastrointestinal: Positive for nausea. Negative for abdominal pain, blood in stool, constipation and diarrhea. Genitourinary: Negative for dysuria, frequency, hematuria and urgency. Musculoskeletal: Negative for arthralgias and back pain. Skin: Negative. Neurological: Negative for weakness and numbness. Psychiatric/Behavioral: Negative for dysphoric mood. The patient is not nervous/anxious. Vitals: 05/09/22 1156 05/09/22 1213 BP: (!) 152/87 (!) 158/99 Pulse: 82 78 Weight: 189 lb (85.7 kg) Height: 5' 10 (1.778 m) Physical Exam Vitals and nursing note reviewed. Constitutional: General: He is not in acute distress. Appearance: Normal appearance. HENT: Right Ear: Tympanic membrane, ear canal and external ear normal. Left Ear: Tympanic membrane, ear canal and external ear normal. Mouth/Throat: Mouth: Mucous membranes are moist. Pharynx: Oropharynx is clear. Eyes: Extraocular Movements: Extraocular movements intact. Pupils: Pupils are equal, round, and reactive to light. Cardiovascular: Rate and Rhythm: Normal rate and regular rhythm. Heart sounds: Normal heart sounds. No murmur heard. Pulmonary: Effort: Pulmonary effort is normal. Breath sounds: Normal breath sounds. Abdominal: General: Bowel sounds are normal. Palpations: Abdomen is soft. Tenderness: There is no abdominal tenderness. Musculoskeletal: General: Normal range of motion. Cervical back: Neck supple. Skin: General: Skin is warm and dry. Neurological: General: No focal deficit present. Mental Status: He is alert and oriented to person, place, and time. Psychiatric: Mood and Affect: Mood normal. An electronic signature was used to authenticate this note. Andrea Lr MD 05/09/2022 3:37 PM After obtaining consent, and per orders of Dr. Lr, injection of HD Flu vaccine given in left deltoid by Iman Wong. Patient instructed to report any adverse reaction immediately. documented in this encounter [facility] Evaluation note Diagnosis Cigarette smoker Tobacco use disorder documented in this encounter [facility] Work Phone: Evaluation note* Diagnosis Vomiting- Primary Vomiting alone Vomiting Vomiting alone Abnormal CT scan Other nonspecific (abnormal) findings on radiological and other examinations of body structure [facility] Diagnosis Type 1 diabetes mellitus with hyperglycemia (HCC)- Primary Acquired hypothyroidism Unspecified hypothyroidism [facility] Diagnosis Type 1 diabetes mellitus with hyperglycemia (HCC) [facility] Diagnosis Type 1 diabetes mellitus with hyperglycemia (HCC)- Primary Mixed hyperlipidemia Primary hypothyroidism Unspecified hypothyroidism [facility] Diagnosis Primary hypothyroidism- Primary Unspecified hypothyroidism [facility]* Diagnosis Essential hypertension- Primary Unspecified essential hypertension [facility] Diagnosis Type 1 diabetes mellitus with hyperglycemia (HCC)- Primary Essential hypertension Unspecified essential hypertension Acquired hypothyroidism Unspecified hypothyroidism [facility]* Diagnosis Type 1 diabetes mellitus with hyperglycemia (HCC) [facility]* Diagnosis Primary hypothyroidism- Primary Unspecified hypothyroidism Mixed hyperlipidemia Type 1 diabetes mellitus with hyperglycemia (HCC) Chronic nausea Nausea alone Tobacco abuse Tobacco use disorder Nausea and vomiting, unspecified vomiting type- Primary Nausea and vomiting, unspecified vomiting type Dehydration Diabetic ketoacidosis without coma associated with other specified diabetes mellitus (HCC) [facility]* Diagnosis Type 1 diabetes mellitus with hyperglycemia (HCC)- Primary Acquired hypothyroidism Unspecified hypothyroidism [facility]* Diagnosis Primary hypothyroidism- Primary Unspecified hypothyroidism Mixed hyperlipidemia Type 1 diabetes mellitus with hyperglycemia (HCC) Chronic nausea Nausea alone Tobacco abuse Tobacco use disorder [facility]* Diagnosis Primary hypothyroidism- Primary Unspecified hypothyroidism Mixed hyperlipidemia Type 1 diabetes mellitus with hyperglycemia (HCC) Chronic nausea Nausea alone Tobacco abuse Tobacco use disorder Type 1 diabetes mellitus with hyperglycemia (HCC) [facility]* Diagnosis Primary hypothyroidism- Primary Unspecified hypothyroidism Mixed hyperlipidemia Type 1 diabetes mellitus with hyperglycemia (HCC) Chronic nausea Nausea alone Tobacco abuse Tobacco use disorder Type 1 diabetes mellitus with hyperglycemia (HCC) [facility]* Diagnosis Primary hypothyroidism- Primary Unspecified hypothyroidism Mixed hyperlipidemia Type 1 diabetes mellitus with hyperglycemia (HCC) Chronic nausea Nausea alone Tobacco abuse Tobacco use disorder Type 1 diabetes mellitus with hyperglycemia (HCC)- Primary Mixed hyperlipidemia documented [facility]* Diagnosis Primary hypothyroidism- Primary Unspecified hypothyroidism Mixed hyperlipidemia Type 1 diabetes mellitus with hyperglycemia (HCC) Chronic nausea Nausea alone Tobacco abuse Tobacco use disorder Type 1 diabetes mellitus with hyperglycemia (HCC)- Primary Mixed diabetic hyperlipidemia associated with type 2 diabetes mellitus (HCC) Hypertension associated with type 2 diabetes mellitus (HCC) Acquired hypothyroidism Unspecified hypothyroidism [facility]* Diagnosis Onset Date Resolution Status Admit Date Acute metabolic encephalopathy acute August 10, 2024 9:31pm DAVEY (acute kidney injury) acute August 10, 2024 9:31pm Diabetic ketoacidosis acute Apr 2024 9:31pm Gastrointestinal bleeding, upper acu te August 10, 2024 9:31pm Hyperkalemia acute August 10, 2024 9:31pm Hypotension acute August 10, 2 025 9:31pm Leukocytosis acute August 10, 2024 9:31pm Sepsis acute August 10 9:31pm [facility] Work Phone: Evaluation note* Diagnosis Primary hypothyroidism- Primary Unspecified hypothyroidism Mixed hyperlipidemia Type 1 diabetes mellitus with hyperglycemia (HCC) Chronic nausea Nausea alone Tobacco abuse Tobacco use disorder Type 1 diabetes mellitus with hyperglycemia (HCC)- Primary Nausea and vomiting, unspecified vomiting type Mixed hyperlipidemia Primary hypothyroidism Unspecified hypothyroidism [facility] ([facility] Consultation (Routine) - Pending Review Specialty Diagnoses / Procedures Referred By Contkaden t Referred To Contact Ophthalmology Diagnoses Type 1 diabetes mellitus with hyperglycemia (HCC) Procedures DE OFFICE/OUTPATIENT [facility] 60-74 MINUTES Dee Pitts, KAMRAN - RICKIE [address] [place] [address] [address] Referral ID Status Reason Start Date Expiration Date Visits Requested Visits Authorized [id number] Pending Review Specialty Services Required 11/13/2022 11/13/2023 1 1 [facility] ([facility] Consultation (Routine) - Pending Review Specialty Diagnoses / Procedures Referred By Contkaden t Referred To Contact Ophthalmology Diagnoses Type 1 diabetes mellitus with hyperglycemia (HCC) Procedures DE OFFICE/OUTPATIENT NEW HIGH MDM 60 MINUTES Rosa Partida MD [address] [place] [address] Referral ID Status Reason Start Date Expiration Date Visits Requested Visits Authorized [id number] Pending Review Specialty Services Required 05/27/2023 05/26/2024 1 1 [facility] Consultation (Routine) - Pending Review Specialty Diagnoses / Procedures Referred By Duane t Referred To Contact Ophthalmology Diagnoses Type 1 diabetes mellitus with hyperglycemia (HCC) Procedures DE OFFICE/OUTPATIENT NEW HIGH MDM 60-74 MINUTES Andrea Lr MD [address] [facility], [place] [address] [facility] Op[facility] [address] [place] [address] Referral ID Status Reason Start Date Expiration Date Visits Requested Visits Authorized [id number] Pending Review Specialty Services Required 05/09/2022 11/05/2022 1 1 [facility]No reason for referral [facility] Work Phone: Summary Purpose Family History No Family History Records FoundNo Family History Records FoundNo Family History Records FoundNo Family History Records FoundNo Family History Records Found Advance Directives No Advanced Directives Records FoundDocuments on File Type Date Recorded 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 DNR (Do Not Resuscitate) 05/11/2015 Date Activated Date Inactivated Comments 08/14/2022 3:43 PM 08/18/2022 5:10 PM Documents on File Type Date Recorded 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 Advance Directives and Living Will Power of Investment Officer Latest Code Status on File Code Status Date Activated Date Inactivated Comments Full Code 01/05/2016 3:16 AM 01/06/2016 7:13 PM Full Code 09/12/2015 6:46 PM 09/15/2015 3:47 PM Documents on File Type Date Recorded 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 ACP-Advance Directive ACP-Power of Investment Officer Latest Code Status on File Code Status Date Activated Date Inactivated Comments Full Code 08/14/2022 3:43 PM 08/18/2022 5:10 PM Documents on File Type Date Recorded 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 DNR (Do Not Resuscitate) 05/11/2015 Latest Code Status on File Code Status Date Activated Date Inactivated Comments Full Code 08/14/2022 3:43 PM 08/18/2022 5:10 PM Date Activated Date Inactivated Comments 02/15/2024 6:33 PM 02/17/2024 7:20 PM Date Activated Date Inactivated Comments 08/14/2022 3:43 PM 08/18/2022 5:10 PM Date Activated Date Inactivated Comments 02/15/2024 6:33 PM 02/17/2024 7:20 PM Date Activated Date Inactivated Comments 08/14/2022 3:43 PM 08/18/2022 5:10 PM Assessments Diagnosis Cervical radiculopathy Brachial neuritis or radiculitis nos Chief Complaint and Reason for Visit Chief Complaint Admit Date DKA, SUSPECT SEPSIS, UGIB AND DAVEY WITH M ETOBOLIC August 10, 2024 9:31pm Reason for Visit Admit Date Acute metabolic encephalopathy July 9:31pm DAVEY (acute kidney injury) August 10 9:31pm Diabetic ketoacidosis August 10, 2024 9 :31pm Gastrointestinal bleeding, upper July 282024 9:31pm Hyperkalemia August 10, 2024 9:3 1pm Hypotension August 10, 2024 9:3 1pm Leukocytosis August 10, 2024 9:3 1pm Sepsis August 10, 2024 9:3 1pm Additional Source Comments (unrecognized sect ion and content) No Status Records FoundNo Status Records FoundNo Status Records FoundNo Status Records FoundNo Status Records Found INFORMATION SOURCE (unrecogn ized section and content) DATE CREATED AUTHOR 10/23/2017 [facility] DATE CREATED AUTHOR AUTHOR'S ORGANIZ ATION 01/31/2022 [facility] DATE CREATED AUTHOR AUTHOR'S ORGANIZ ATION 09/01/2024 [facility] DATE CREATED AUTHOR AUTHOR'S ORGANIZ ATION 09/15/2024 [facility] DATE CREATED AUTHOR AUTHOR'S ORGANIZ ATION 09/22/2024 [facility] Care Teams (unrecognized sec tion and content) Statement Processor Relationship Specialty Start Date [place] [address] PCP - General Family Medicine 10/20/14 Statement Processor Relationship Specialty Start Date [place] [address] PCP - General Family Medicine 10/20/14 Statement Processor Relationship Specialty Start Date [place] [address] PCP - General 10/20/14 Statement Processor Relationship Specialty Start Date End Date [place] [address] PCP - General 10/20/14 Statement Processor Relationship Specialty Start Date [place] [address] PCP - General 10/20/14 Statement Processor Relationship Specialty Start Date End Date [facility] [place] [place] [facility] [place] [address] PCP - General 10/20/14 Statement Processor Relationship Specialty Start Date End Date Andrea Lr MD [facility] [place] [address] PCP - General 10/20/14 Statement Processor Relationship Specialty Start Date End Date Andrea Lr MD [facility] [place] [address] PCP - General 10/20/14 Statement Processor Relationship Specialty Start Date End Date Andrea Lr MD [address] [place] [address] PCP - General 10/20/14 Statement Processor Relationship Specialty Start Date End Date Andrea Lr MD [address] [place] [address] PCP - General 10/20/14 Statement Processor Relationship Specialty Start Date End Date Andrea Lr MD [address] [facility] [place] [address] PCP - General 10/20/14 Statement Processor Relationship Specialty Start Date End Date Andrea Lr MD [address] [place] [address] PCP - General 10/20/14 Statement Processor Relationship Specialty Start Date End Date Andrea Lr MD [address] [place] [address] PCP - General 10/20/14 Statement Processor Relationship Specialty Start Date End Date Andrea Lr MD [address] [place] [address] PCP - General 10/20/14 Statement Processor Relationship Specialty Start Date End Date Andrea Lr MD [address] [facility] [place] [address] PCP - General 10/20/14 Statement Processor Relationship Specialty Start Date [place] [address] PCP - General 10/20/14 Statement Processor Relationship Specialty Start Date [place] [address] PCP - General 10/20/14 Statement Processor Relationship Specialty Start Date [place] [address] PCP - General 10/20/14 Statement Processor Relationship Specialty Start Date End Date Andrea Lr MD [address] [place] [id number] PCP - General 10/20/14 Statement Processor Relationship Specialty Start Date End Date Andrea Lr MD [address] [place] [address] PCP - General 10/20/14 Statement Processor Relationship Specialty Start Date End Date Andrea Lr MD [address] [place] [address] PCP - General 10/20/14 Statement Processor Relationship Specialty Start Date End Date Andrea Lr MD [address] [place] [id number] PCP - General 10/20/14 Statement Processor Relationship Specialty Start Date End Date Andrea Lr MD [address] [place] [address] PCP - General 10/20/14 Statement Processor Relationship Specialty Start Date End Date Andrea Lr MD [address] [place] [address] [id number] PCP - General 10/20/14 Statement Processor Relationship Specialty Start Date End Date Andrea Lr MD [address] [place] [address] [id number] PCP - General 10/20/14 Team Status: Active Member Role Status Dates No Primary Care Physician Primary Care Provider Active Team Status: Active Member Role Status Dates Dr. Jose Alfredo Valderrama , Emergency Provider Active Start: August 10, 2024 No Primary Care Physician Primary Care Provider Active Start: August 10, 2024 Dr. Miki Abdi DO Admit Provider Active Start: August 10, 2024 Dr. Miki Abdi DO Attending Provider Active Start: August 10, 2024 Statement Processor Relationship Specialty Start Date End Date Andrea Lr MD [address] [place] [address] PCP - General 10/20/14 Reason for Visit (unrecogniz ed section and content) Reason Comments Withdrawal Fentanyl Reason Onset Date Comments No Show 07/11/2022 Reason Comments Vomiting Pt coming in for vom iting since midnight, states he has been feeling generally unwell for a few days. Pt states that his sugars have been high recently, and were in the 300's today. Reports med compliance at baseline but states he hasnt taken his insulin today. Reports hx of DKA with similar presentation Addiction Problem Pt is also a daily f entanyl user, last use was about 24 hours ago. states that he would like help to get off of that as well Specialty Diagnoses / Procedures Referred By Duane t Referred To Contact Diagnoses Vomiting Procedures R11.10 Santana Shell MD [address] [address] [facility] 2e Telemetry [address] [place] [address] Referral ID Status Reason Start Date Expiration Date Visits Re quested Visits Authorized [id number] 1 Reason Onset Date Comments Care Coordination 08/17/2022 Reason Onset Date Comments Care Coordination 08/17/2022 Procedure 08/17/2022 Reason Comments Diabetes Diabetes Reason Comments Med Refill Reason Onset Date Comments Med Refill 03/30/2023 Reason Comments Follow-up Diabetes Thyroid Problem Reason Onset Date Comments Med Management 07/17/2023 Office notes req uest Reason Onset Date Comments Annual Lung Screening Reminder 01/29/2023 Reason Comments Diabetes Follow up-over due f or eye exam-last one approx 5 years ago Reason Onset Date Comments Medication Problem 09/27/2023 Reason Comments Vomiting Hyperglycemia Specialty Diagnoses / Procedures Referred By Contac t Referred To Contact Diagnoses Dehydration Diabetic ketoacidosis without coma associated with other specified diabetes mellitus (HCC) Nausea and vomiting, unspecified vomiting type Procedures E86.0 (ICD-10-CM) - Dehydration Lane aMldonado MD [address] [place] [address] Phone: tel: fax: [facility] Intensive Care Unit ICU [address] [place] [address] Phone: tel: Referral ID Status Reason Start Date Expiration Date Visits Re quested Visits Authorized [id number] 1 1 Reason Comments Follow-up Diabetes Mellitus Reason Comments Diabetes Hypothyroidism Hyperlipidemia Anxiety Medication Check Blood Work Health Maintenance Colonoscopy- refuseD m eye- not done agree to referral Flu vaccine- agreeCovid 4 vaccine- not doneDm dental exam- not done refuse Reason Onset Date Comments Other 07/28/2024 Clinical Notes R equest Reason Onset Date Comments Request For Order(s) 07/30/2024 Reason Comments Follow-up Diabetes Reason Onset Date Comments Med Refill 08/06/2024 Reason Comments Transitional Care Management [facility] Follow[facility]up [facility] 08/10-08/26/24 Scheduled Active and Recently Administ ered Medications (unrecognized section and content) Medication Order 08/16/2022 08/17/2022 08/18/2022 aspirin tablet 325 mg 325 mg, Oral, Daily, First dose on Sat08/15/22 at 0900 0900 (Not Given - Provider: Patricia Londono RN - Reason: Upcoming test/procedure) 1000 (Given - Provider: Livia Ram, RN) 0900 (Given - Provider: Audrey Hensley RN) baclofen (Lioresal) tablet 10 mg 10 mg, Oral, Every 8 hours, First dose on Sat08/15/22 at 1345 0545 (Canceled Entry - Provider: Royal Kc RN - Comment: patient NPO for EGD)1234 (Given - Provider: Patricia Londono RN)2039 (Given - Provider: Mary Lorenzo RN) 0538 (Given - Provider: Mary Lorenzo RN)1305 (Given - Provider: Livia Ram RN)2009 (Given - Provider: Mary Lorenzo RN) 0615 (Given - Provider: Mary Lornezo RN)1345 (Canceled Entry - Provider: Automatic Discharge Provider - Comment: Automatically canceled at discontinue of medication order) cloNIDine (Catapres) tablet 0.1 mg 0.1 mg, Oral, Every 8 hours, First dose on Sat08/15/22 at 1345, HOLD if SBP < 100 or DBP < 60 or HR < 50 0545 (Canceled Entry - Provider: Royal Kc RN - Comment: Patient NPO for EGD)1234 (Given - Provider: Patricia Londono RN)2040 (Given - Provider: Mary Lorenzo RN) 0538 (Given - Provider: Mary Lorenzo RN)1305 (Given - Provider: Livia Ram RN - Comment: BP: 117/82 HR 91)2009 (Given - Provider: Mary Lorenzo RN) 0615 (Given - Provider: Mary Lorenzo RN)1345 (Canceled Entry - Provider: Automatic Discharge Provider - Comment: Automatically canceled at discontinue of medication order) enoxaparin (Lovenox) syringe 40 mg 40 mg, SubCUTAneous, Every 24 hours scheduled (Daily), First dose on Sat08/14/22 at 1545, Indication of Use: Prophylaxis-DVT/PE, Indications: Prophylaxis of Venous Thromboembolism 0900 (Not Given - Provider: Patricia Londono RN - Reason: Upcoming test/procedure) 1004 (Given - Provider: Livia Ram RN) 0802 (Given - Provider: Audrey Hensley RN) insulin glargine (Lantus) injection 26 Units 26 Units, SubCUTAneous, Nightly, First dose (after last modification) on Sat08/17/22 at 2100 2009 (Given - Provider: Mary Lorenzo RN) Insulin Lispro (Humalog) injection 0-12 Units (CANCELED) 0-12 Units, SubCUTAneous, 3 times daily with meals, First dose on Sat08/14/22 at 1700, Medium Dose Correction Algorithm Glucose: Dose: LESS than 139 No Insulin 140-199 2 Unit 200-249 4 Units 250-299 6 Units 300-349 8 Units 350-400 10 Units Above 400 12 Units 0859 (Given - Provider: Patricia Londono RN)1200 (Canceled Entry - Provider: Patricia Londono RN) Insulin Lispro (Humalog) injection 0-18 Units 0-18 Units, SubCUTAneous, 3 times daily with meals, First dose on Sat08/16/22 at 1230, High Dose Correction Algorithm Glucose: Dose: LESS than 139 No Insulin 140-199 3 Unit 200-249 6 Units 250-299 9 Units 300-349 12 Units 350-400 15 Units Above 400 18 Units 1240 (Given - Provider: Patricia Londono RN)1642 (Given - Provider: Patricia Londono RN) 0815 (Given - Provider: Livia Ram RN)1115 (Given - Provider: Livia Ram RN)1737 (Given - Provider: Livia Ram RN) 0800 (Given - Provider: Audrey Hensley, RN)1219 (Given - Provider: Audrey Hensley, RN)1700 (Canceled Entry - Provider: Automatic Discharge Provider - Comment: Automatically canceled at discontinue of medication order) Insulin Lispro (Humalog) injection 14 Units (CANCELED) 14 Units, SubCUTAneous, 3 times daily with meals, First dose on Sat08/15/22 at 1200, Hold scheduled insulin if patient is not eating. Ok to give sliding scale if patient not eating. 0800 (Not Given - Provider: Patricia Londono RN - Reason: Order parameters not met)1238 (Not Given - Provider: Patricia Londono RN - Reason: Order parameters not met - Comment: pt not eating)1643 (Given - Provider: Patricia Londono RN) 0815 (Given - Provider: Livia Ram RN)1111 (Given - Provider: Livia Ram RN) Insulin Lispro (Humalog) injection 18 Units 18 Units, SubCUTAneous, 3 times daily with meals, First dose (after last modification) on Sat08/17/22 at 1700, Hold scheduled insulin if patient is not eating. Ok to give sliding scale if patient not eating. 1736 (Given - Provider: Livia Ram RN) 0755 (Given - Provider: Audrey Hensley, JENELLE)1218 (Given - Provider: Audrey Hensley, JENELLE)1700 (Canceled Entry - Provider: Automatic Discharge Provider - Comment: Automatically canceled at discontinue of medication order) levothyroxine (Synthroid, Levoxyl) tablet 100 mcg 100 mcg, Oral, Daily, First dose on Sat08/15/22 at 0900, Tube feeding (TF) interaction, obtain physician order to manage, recommend holding TF for 30 minutes before and after dose. 1233 (Given - Provider: Patricia Londono RN) 1000 (Given - Provider: Livia Ram RN) 0802 (Given - Provider: Audrey Hensley, JENELLE) lisinopril tablet 2.5 mg 2.5 mg, Oral, Daily, First dose on Sat08/15/22 at 0900 1232 (Given - Provider: Patricia Londono RN) 1000 (Given - Provider: Livia Ram RN) 0802 (Given - Provider: Audrey Hensley, JENELLE) omega-3 acid ethyl esters (Lovaza) capsule 1 g 1 g, Oral, Daily, First dose on Sat08/15/22 at 0900, Do not crush, chew, or split. 0900 (Not Given - Provider: Patricia Londono RN - Reason: NPO) 1000 (Given - Provider: Livia Ram RN) 0802 (Given - Provider: Audrey Hensley, JENELLE) pantoprazole (ProtoNix) injection 40 mg(Linked Group 1) 40 mg, IntraVENous, Administer over 2 Minutes, Daily before breakfast, First dose on Sat08/15/22 at 0530, Reconstitute with 10 mL 0.9 % sodium chloride and administer over at least 2 minutes. 0700 (Canceled Entry - Provider: Royal Kc RN - Comment: Patient NPO for EGD) 0538 (Given - Provider: Mary Lorenzo RN) 0615 (Given - Provider: Mary Lorenzo RN) rosuvastatin (Crestor) tablet 20 mg 20 mg, Oral, Daily, First dose on Sat08/15/22 at 0900 1232 (Given - Provider: Patricia Londono RN) 1000 (Given - Provider: Livia Ram RN) 0802 (Given - Provider: Audrey Hensley RN) sodium chloride (PF) 0.9 % flush 10 mL(Linked Group 1) 10 mL, IntraVENous, Daily before breakfast, First dose on Sat08/15/22 at 0700, To be use to reconstitute pantoprazole (ProtoNIX) Reconstitute each 40 mg vial of pantoprazole (ProtoNIX) with 10 mL of normal saline. 0700 (Canceled Entry - Provider: Royal Kc RN - Comment: Patient NPO for EGD) 0600 (Given - Provider: Mary Lorenzo RN) 0615 (Given - Provider: Mary Lorenzo RN) sodium chloride 0.9% (NS) flush 5-40 mL 5-40 mL, IntraVENous, Every 12 hours scheduled (2 times per day), First dose on Sat08/14/22 at 1040, For Line Patency: Peripheral IV = 5 mL; Midline or Central Line = 10 mL/lumen. If following IV push medication, administer flush at same rate as the IV push. Flush volume is determined by type of infusion therapy being given. For non-viscous solutions use: Peripheral IV = 5 mL Midline or Central Line = 10 mL/lumen For viscous solutions (i.e. blood components, parenteral nutrition, contrast media, or after obtaining blood sample) use: Peripheral IV = 10 mL Midline or Central Line = 20 mL/lumen 0900 (Not Given - Provider: Patricia Londono RN - Reason: IV Fluids Infusing)2100 (Given - Provider: Mary Lorenzo RN) 1004 (Given - Provider: Livia Ram RN)2100 (Given - Provider: Mary Lorenzo RN) 0803 (Given - Provider: Audrey Hensley RN) traMADol (Ultram) tablet 100 mg (COMPLETED) 100 mg, Oral, Every 6 hours, First dose on Sat08/16/22 at 2145, For 4 doses, Max of 300 mg daily for patients > 75 years of age. 2053 (Given - Provider: Mary Lorenzo RN) 0306 (Given - Provider: Mary Lorenzo RN)1001 (Given - Provider: Livia Ram RN)1456 (Given - Provider: Livia Ram RN) traMADol (Ultram) tablet 100 mg 100 mg, Oral, Every 8 hours, First dose on Sat08/17/22 at 2145, For 3 doses, Max of 300 mg daily for patients > 75 years of age. 2122 (Given - Provider: Mary Lorenzo RN) 0615 (Given - Provider: Mary Lorenzo RN)1345 (Canceled Entry - Provider: Automatic Discharge Provider - Comment: Automatically canceled at discontinue of medication order) PRN Medication Order 08/16/2022 08/17/2022 08/18/2022 acetaminophen (Tylenol) suppository 650 mg(Linked Group 2) 650 mg, Rectal, Every 6 hours PRN, mild pain (1-3), fever, For temp greater than 100.4 F (38 C), Starting on Sat08/14/22 at 1534, Administer if oral route cannot be used. Maximum dose of acetaminophen is 4000 mg from all sources in 24 hours. acetaminophen (Tylenol) tablet 650 mg(Linked Group 2) 650 mg, Oral, Every 6 hours PRN, mild pain (1-3), fever, For temp greater than 100.4 F (38 C), Starting on Sat08/14/22 at 1534, Maximum dose of acetaminophen is 4000 mg from all sources in 24 hours. dextrose 5 % infusion 100 mL/hr, IntraVENous, PRN, Blood sugar less than 70mg/dL, Starting on Sat08/14/22 at 1444, Start infusion following administration of dextrose 50% or glucagon. dextrose 50 % solution 12.5 g 12.5 g, IntraVENous, PRN, low blood sugar, Blood glucose less than 70 mg/dL and patient NOT ALERT or NPO., Starting on Sat08/14/22 at 1444, If patient does not respond within 5 minutes, repeat dose x1. Start D5W at 100 mL/hour until ordering provider can be reached. Repeat blood glucose in 15 minutes. If blood glucose is less than 70 mg/dL, repeat treatment and recheck blood glucose in 15 minutes x2. If using Glucostabilizer, dose as instructed per system. dicyclomine (Bentyl) capsule 20 mg 20 mg, Oral, 3 times daily PRN, abdominal cramps, Starting on Sat08/15/22 at 1343 glucagon (human recombinant) injection 1 mg 1 mg, IntraMUSCular, PRN, low blood sugar, Blood glucose less than 70 mg/dL and patient NOT ALERT or NPO and does not have IV access., Starting on Sat08/14/22 at 1444, After administration, attempt intravenous access and start D5W at 100 mL/hr. Repeat blood glucose in 15 minutes x2 and notify provider. glucose oral gel 15 g 15 g, Oral, As needed, low blood sugar, Starting on Sat08/14/22 at 1444, If blood glucose less than 50 mg/dL and patient ALERT and NOT NPO, give 2 tubes glucose gel. If blood glucose less than 70 mg/dL and patient ALERT and NOT NPO, give 1 tube glucose gel. Repeat blood glucose in 15 minutes. If blood glucose is less than 70 mg/dL, repeat treatment and recheck blood glucose in 15 minutes x2 and notify provider. LORazepam (Ativan) tablet 0.5 mg 0.5 mg, Oral, Every 12 hours PRN, anxiety, Starting on Sat08/14/22 at 1552 1237 (Given - Provider: Patricia Londono RN) 0123 (Given - Provider: Mary Lorenzo RN)2009 (Given - Provider: Mary Lorenzo RN) ondansetron (Zofran) injection 4 mg(Linked Group 3) 4 mg, IntraVENous, Every 6 hours PRN, nausea, vomiting, Starting on Sat08/14/22 at 1534, 1st Line. Give IV if patient is unable to take orally. If inadequate response within 60 minutes, proceed to next-line agent or contact provider if no further options ordered. 0448 (Given - Provider: Mary Lorenzo RN) ondansetron ODT (Zofran-ODT) disintegrating tablet 4 mg(Linked Group 3) 4 mg, Oral, Every 8 hours PRN, nausea, vomiting, Starting on Sat08/14/22 at 1534, 1st Line. If inadequate response within 60 minutes, proceed to next-line agent or contact provider if no further options ordered. Patient should allow tablet to dissolve on tongue. Do not remove from blister pack until just before administering. 0448 (See Alternative - Provider: Mary Lorenzo RN) polyethylene glycol (PEG) 3350 (Miralax) packet 17 g 17 g, Oral, Daily PRN, constipation, Starting on Sat08/14/22 at 1534, 1st line for treatment of constipation - give scheduled if no bowel movement in past 24 hours. sodium chloride 0.9 % infusion 5-250 mL/hr, IntraVENous, PRN, if patient receiving piggyback infusions and maintenance fluids are not ordered OR KVO fluids to protect IV site / prevent frequent line interruptions/ long duration, Starting on Sat08/14/22 at 1031, For piggyback infusion, administer at same rate as piggyback for a total of 25 mL. Enter 25 mL into dose field and piggyback rate into rate field of order. If piggyback is infusing at a rate less than 100 mL/hr, enter 25 mL into dose field and 100 mL/hr into rate field of order. For KVO fluids, enter rate of 20 mL/hr or less into rate field of order. sodium chloride 0.9% (NS) flush 5-40 mL 5-40 mL, IntraVENous, PRN, line care, Starting on Sat08/14/22 at 1031, For Line Patency: Peripheral IV = 5 mL; Midline or Central Line = 10 mL/lumen. If following IV push medication, administer flush at same rate as the IV push. Flush volume is determined by type of infusion therapy being given. For non-viscous solutions use: Peripheral IV = 5 mL Midline or Central Line = 10 mL/lumen For viscous solutions (i.e. blood components, parenteral nutrition, contrast media, or after obtaining blood sample) use: Peripheral IV = 10 mL Midline or Central Line = 20 mL/lumen traMADol (Ultram) tablet 100 mg () 100 mg, Oral, Every 6 hours PRN, severe pain (7-10), Starting on Sat08/14/22 at 1540, For 2 days, Max of 300 mg daily for patients > 75 years of age. 1236 (Given - Provider: Patricia Londono RN) Linked Groups Order Group 1: pantoprazole (ProtoNix) injection 40 mgJump to med 40 mg, IntraVENous, Administer over 2 Minutes, Daily before breakfast, First dose on Sat08/15/22 at 0530
Reconstitute with 10 mL 0.9 % sodium chloride and administer over at least 2 minutes.
And sodium chloride (PF) 0.9 % flush 10 mLJump to med 10 mL, IntraVENous, Daily before breakfast, First dose on Sat08/15/22 at 0700
To be use to reconstitute pantoprazole (ProtoNIX) Reconstitute each 40 mg vial of pantoprazole (ProtoNIX) with 10 mL of normal saline.
Group 2: acetaminophen (Tylenol) tablet 650 mgJump to med 650 mg, Oral, Every 6 hours PRN, mild pain (1-3), fever, For temp greater than 100.4 F (38 C), Starting on Sat08/14/22 at 1534
Maximum dose of acetaminophen is 4000 mg from all sources in 24 hours.
Or acetaminophen (Tylenol) suppository 650 mgJump to med 650 mg, Rectal, Every 6 hours PRN, mild pain (1-3), fever, For temp greater than 100.4 F (38 C), Starting on Sat08/14/22 at 1534
Administer if oral route cannot be used. Maximum dose of acetaminophen is 4000 mg from all sources in 24 hours.
Group 3: ondansetron ODT (Zofran-ODT) disintegrating tablet 4 mgJump to med 4 mg, Oral, Every 8 hours PRN, nausea, vomiting, Starting on Sat08/14/22 at 1534
1st Line. If inadequate response within 60 minutes, proceed to next-line agent or contact provider if no further options ordered. Patient should allow tablet to dissolve on tongue. Do not remove from blister pack until just before administering.
Or ondansetron (Zofran) injection 4 mgJump to med 4 mg, IntraVENous, Every 6 hours PRN, nausea, vomiting, Starting on Sat08/14/22 at 1534
1st Line. Give IV if patient is unable to take orally. If inadequate response within 60 minutes, proceed to next-line agent or contact provider if no further options ordered.
Scheduled Medication Order 02/15/2024 02/16/2024 02/17/2024 acetaminophen (Tylenol) tablet 1,000 mg 1,000 mg, Oral, Every 8 hours, First dose on 02/15/24 at 1845, Maximum dose of acetaminophen is 4000 mg from all sources in 24 hours. 2051 (Given - Provider: Christy Otoole RN - Comment: abdominal pain) 0244 (Given - Provider: Christy Otoole RN)1045 (Not Given - Provider: Audrey Nayak RN - Reason: Patient/family refused)1827 (Given - Provider: Storm Bonilla RN) 0245 (Not Given - Provider: Giana Hood RN - Reason: Patient/family refused)1045 (Not Given - Provider: Karyn Lopez RN - Reason: Patient/family refused)1845 (Canceled Entry - Provider: Automatic Discharge Provider - Comment: Automatically canceled at discontinue of medication order) aluminum & magnesium hydroxide-simethicone (Mylanta) 200-200-20 MG/5ML oral suspension 20 mL (COMPLETED)(Linked Group 1) 20 mL, Oral, Once, On 02/15/24 at 1740, For 1 dose, Mix with 5 mL viscous lidocaine oral solution and give together (25 mL total). 175 (Given - Provider: Miracle Enrique, JENELLE) aluminum & magnesium hydroxide-simethicone (Mylanta) 200-200-20 MG/5ML oral suspension 20 mL (COMPLETED)(Linked Group 2) 20 mL, Oral, Once, On 02/15/24 at 1840, For 1 dose, Mix with 5 mL viscous lidocaine oral solution and give together (25 mL total). 2000 (Given - Provider: Christy Otoole RN) enoxaparin (Lovenox) syringe 40 mg 40 mg, SubCUTAneous, Every 24 hours scheduled (Daily), First dose on 02/16/24 at 0900, Indication of Use: Prophylaxis-DVT/PE, Indications: Prophylaxis of Venous Thromboembolism 902 (Given - Provider: Audrey Nayak, JENELLE) 912 (Given - Provider: Karyn Lopez, JENELLE) famotidine (Pepcid) 20 mg in sodium chloride (PF) 0.9 % 10 mL injection (COMPLETED) 20 mg, IntraVENous, Administer over 2 Minutes, Once, On 02/15/24 at 1740, For 1 dose, IV Push over minimum of 2 minutes - Dilute with 10 mL NS 175 (Given - Provider: Miracle Enrique RN) influenza vaccine A&B surf ant adjuvanted (Fluad) HIGH-DOSE injection 0.5 mL 0.5 mL, IntraMUSCular, Prior to discharge, Starting on 02/16/24 at 0900, For 1 dose insulin glargine (Lantus) injection 14 Units 14 Units, SubCUTAneous, Nightly, First dose on 02/16/24 at 0115 0119 (Given - Provider: Christy Otoole RN)2125 (Given - Provider: Giana Hood RN) Insulin Lispro (Humalog) injection 0-12 Units(Linked Group 3) 0-12 Units, SubCUTAneous, 3 times daily with meals, First dose on 02/16/24 at 0800, Medium Dose Correction Algorithm Glucose: Dose: LESS than 139 No Insulin 140-199 2 Unit 200-249 4 Units 250-299 6 Units 300-349 8 Units 350-400 10 Units Above 400 12 Units 0903 (Given - Provider: Audrey Nayak RN)1200 (Not Given - Provider: Audrey Nayak RN - Reason: Order parameters not met)1700 (Not Given - Provider: Storm Bonilla RN - Reason: Order parameters not met) 0800 (Not Given - Provider: Karyn Lopez RN - Reason: Order parameters not met)1308 (Not Given - Provider: Karyn Lopez RN - Reason: Patient/family refused)1700 (Canceled Entry - Provider: Automatic Discharge Provider - Comment: Automatically canceled at discontinue of medication order) Insulin Lispro (Humalog) injection 0-12 Units(Linked Group 3) 0-12 Units, SubCUTAneous, Nightly, First dose on 02/16/24 at 0115, If continuous tube feedings/TPN/NPO, give correction dose based on result, no reduction in dose. If eating or bolus tube feeding: Medium Dose Correction Algorithm Glucose: Dose: LESS than 139 No Insulin 140-199 2 Unit 200-249 4 Units 250-299 6 Units 300-349 8 Units 350-400 10 Units Above 400 12 Units 0115 (Not Given - Provider: Christy Otoole RN - Reason: Order parameters not met)2126 (Given - Provider: Giana Hood RN) Insulin Lispro (Humalog) injection 16 Units 16 Units, SubCUTAneous, 3 times daily with meals, First dose on 02/16/24 at 0800 0903 (Given - Provider: Audrey Nayak RN)1230 (Given - Provider: Audrey Nayak RN)1855 (Given - Provider: Bing Betancourt RN) 0914 (Given - Provider: Karyn Lopez, JENELLE)1307 (Given - Provider: Karyn Lopez RN)1700 (Canceled Entry - Provider: Automatic Discharge Provider - Comment: Automatically canceled at discontinue of medication order) insulin NPH (Isophane) (HumuLIN N,NovoLIN N) injection 12 Units (CANCELED) 12 Units (rounded from 12.24 Units = 0.15 Units/kg 81.6 kg), SubCUTAneous, Every 12 hours, First dose on 02/15/24 at 1545, Give at onset and every 12 hours. If BGT is < 70, call provider for dose clarification. 1606 (Given - Provider: Miracle Enrique JENELLE) levothyroxine (Synthroid, Levoxyl) tablet 125 mcg 125 mcg, Oral, Daily before breakfast, First dose on 02/16/24 at 0600, Tube feeding (TF) interaction, obtain physician order to manage, recommend holding TF for 30 minutes before and after dose. 0552 (Given - Provider: Christy Otoole RN) 0601 (Given - Provider: Giana Hood RN) lidocaine (Xylocaine) 2 % mouth solution 5 mL (COMPLETED)(Linked Group 1) 5 mL, Mouth/Throat, Once, On 02/15/24 at 1740, For 1 dose, Mix with 20 mL aluminum & magnesium hydroxide-simethicone oral solution and give together (25 mL total) 175 (Given - Provider: Miracle Enrique RN) lidocaine (Xylocaine) 2 % mouth solution 5 mL (COMPLETED)(Linked Group 2) 5 mL, Mouth/Throat, Once, On 02/15/24 at 1840, For 1 dose, Mix with 20 mL aluminum & magnesium hydroxide-simethicone oral solution and give together (25 mL total) 2000 (Given - Provider: Christy Otoole RN) metoclopramide (Reglan) injection 10 mg 10 mg, IntraVENous, Every 6 hours, First dose on 02/15/24 at 1845 2002 (Given - Provider: Christy Otoole RN) 0107 (Given - Provider: Christy Otoole RN)0641 (Given - Provider: Christy Otoole RN)1229 (Given - Provider: Audrey Nayak RN)1827 (Given - Provider: Storm Bonilla, JENELLE) 0139 (Given - Provider: Giana Hood, JENELLE)0601 (Given - Provider: Giana Hood, JENELLE)1245 (Not Given - Provider: Karyn Lopez RN - Reason: Patient/family refused)1845 (Canceled Entry - Provider: Automatic Discharge Provider - Comment: Automatically canceled at discontinue of medication order) mupirocin (Bactroban) 2 % ointment 1 Application 1 Application, Nasal, 2 times daily, First dose on 02/15/24 at 2100, For 5 days, Indications: MRSA Nasal Decolonization 2012 (Given - Provider: Christy Otoole RN) 0904 (Given - Provider: Audrey Nayak RN)2100 (Not Given - Provider: Giana Hood, JENELLE - Reason: Patient/family refused) 0900 (Not Given - Provider: Karyn Lopez RN - Reason: Patient/family refused) ondansetron (Zofran) injection 4 mg (COMPLETED) 4 mg, IntraVENous, Once, On 02/15/24 at 1620, For 1 dose 1618 (Given - Provider: Miracle Enrique, JENELLE) pantoprazole (ProtoNix) 40 mg in sodium chloride (PF) 0.9 % 10 mL injection (CANCELED) 40 mg, IntraVENous, Administer over 2 Minutes, Daily before breakfast, First dose on 02/16/24 at 0600, Reconstitute with 10 ml NS. Vial expires 2 hrs after reconstitution. 551 (Given - Provider: Christy Otoole RN) pantoprazole (ProtoNix) 40 mg in sodium chloride (PF) 0.9 % 10 mL injection (COMPLETED) 40 mg, IntraVENous, Administer over 2 Minutes, Once, On 02/15/24 at 1845, For 1 dose, Reconstitute with 10 ml NS. Vial expires 2 hrs after reconstitution. 2002 (Given - Provider: Christy Otoole RN) pantoprazole (ProtoNix) EC tablet 40 mg 40 mg, Oral, Daily before breakfast, First dose on 02/16/24 at 0800, Do not crush, chew, or split. 1004 (Given - Provider: Audrey Nayak RN) 0602 (Given - Provider: Giana Hood, JENELLE) potassium chloride (Klor-Con) packet 40 mEq (COMPLETED) 40 mEq, Oral, Once, On 02/16/24 at 0900, For 1 dose, Dissolve each packet in 4 ounces of water = 5 mEq per 1 oz fluid., Indications: Hypokalemia 1004 (Given - Provider: Audrey Nayak RN) potassium chloride IVPB 10 mEq (COMPLETED) 10 mEq, IntraVENous, at 100 mL/hr, Administer over 1 Hours, Every 1 hour, First dose on 02/16/24 at 0130, For 4 doses, Total dose: 40 mEq 0111 (New Bag - Provider: Christy Otoole RN)0205 (Stopped - Provider: Christy Otoole, JENELLE)0250 (New Bag - Provider: Christy Otoole, RN)0329 (Stopped - Provider: Christy Otoole, JENELLE)0354 (New Bag - Provider: Christy Otoole, JENELLE)0429 (Stopped - Provider: Christy Otoole, RN)0442 (New Bag - Provider: Christy Otoole, RN)0542 (Stopped - Provider: Christy Otoole, RN) rosuvastatin (Crestor) tablet 40 mg 40 mg, Oral, Daily, First dose on 02/16/24 at 0900 0903 (Given - Provider: Audrey Nayak, RN) 0913 (Given - Provider: Karyn Lopez RN) sodium chloride 0.9 % bolus 1,224 mL (COMPLETED)(Linked Group 4) 1,224 mL (15 mL/kg 81.6 kg), IntraVENous, at 1,224 mL/hr, Administer over 1 Hours, Once, On 02/15/24 at 1545, For 1 dose, Administer over 1 hour, then transition to maintenance infusion. 1604 (New Bag - Provider: Miracle Enrique, JENELLE)1704 (Stopped - Provider: Winsome Guan RN) traZODone (Desyrel) tablet 50 mg (COMPLETED) 50 mg, Oral, Once, On 02/15/24 at 2200, For 1 dose 2220 (Given - Provider: Christy Otoole RN) Continuous Medication Order 02/15/2024 02/16/2024 02/17/2024 dextrose 5 % and sodium chloride 0.45 % infusion 250 mL/hr, IntraVENous, Continuous, Starting on 02/16/24 at 0130, To run until he eats breakfast this AM 0130 (Restarted - Provider: Christy Otoole RN)0552 (New Bag - Provider: Christy Otoole, JENELLE)0827 (Stopped - Provider: Audrey Nayak, JENELLE) insulin regular 100 units in 100 mL NS (Myxredlin) infusion (premix) (CANCELED) 1-50 Units/hr (1-50 mL/hr), IntraVENous, Continuous, Starting on 02/15/24 at 1615, As guided by calculator flowsheet Low target: 150 High target: 200 *Do NOT stop, pause, or decrease insulin drip outside of calculator without an order from ATTENDING physician ONLY *If anion gap (AG) is not able to be calculated due to CO2 <5, call attending to calculate AG based on corrected sodium and CO2 of 5. Notify Provider: If BGT decreases more than 100mg/dL When anion gap is less than or equal to 12 AND beta hydroxybutyrate is less than or equal to 10. Nursing Interventions: Obtain BGT hourly. Once BGT is 250 or less AND variance is no greater than 10% for 2 consecutive readings, OK to obtain POCT glucose every 2 hours. For BGT > 250 mg/dL: If BGT increases increase infusion by 2 units/hr. If BGT decreases look at anion gap - For anion gap LESS than or EQUAL to 12 do not change insulin. - For anion gap GREATER than 12 increase insulin drip by 2 units/hr. Administer maintenance IV fluid per order For BGT 201-250 mg/dL: If BGT increases increase infusion by 2 units/hr. If BGT decreases look at anion gap - For anion gap LESS than or EQUAL to 12 do not change insulin. - For anion gap GREATER than 12 increase insulin drip by 2 units/hr. Discontinue saline IV fluid per protocol and start D5/.45NS @ 250ml/hr (w/ or w/o KCL, depending on order) For BGT 151-200 mg/dL: For first BGT result between 151 and 200: - For anion gap LESS than or EQUAL to 12 decrease insulin drip by 25% and start/continue D5/.45NS @ 250ml/hr (w/ or w/o KCL, depending on order) - For anion gap GREATER than 12 do not change insulin and notify provider For subsequent BGT results between 151 and 200: Do not change insulin drip rate or D5/.45NS fluid rate. Call provider if BGT rebounds to > 200. For BGT 101-150 mg/dL: For first BGT result between 101 and 150: - For anion gap LESS than or EQUAL to 12 decrease insulin drip by 25% and discontinue D5/.45NS and start D10 at 200ml/hr. - For anion gap GREATER than 12 do not change insulin and notify provider For subsequent BGT results between 101 and 150: Do not change insulin drip rate or D10 rate. For BGT 70-100 mg/dL: For first BGT between 70 and 100: - For anion gap LESS than or EQUAL to 12 decrease insulin drip by 50% and start/continue D10 at 200ml/hr. Call provider. - For anion gap GREATER than 12 do not change insulin and notify provider Repeat BGT every 30 minutes until BGT is >= 100 or until 2 consecutive BGTs remain >= 70. For subsequent BGTs between 70 and 100: Do not change insulin drip rate. For ALL BGT <70 mg/dL: Administer 25g D50. Reduce insulin drip by 50%, once. Continue D10 at 200 mL/hr. Notify provider and verify desired D10 rate. Repeat BGT every 15 minutes until blood glucose is >= 70. BUD: 30 days at room temperature 1614 (New Bag - Provider: Miracle Enrique RN)1906 (Rate/Dose Change - Provider: Stepan Willson RN)2009 (Rate/Dose Change - Provider: Christy Otoole RN - Comment: anion gap not resulted waiting for the result)2110 (Rate/Dose Change - Provider: Christy Otoole RN)2211 (Rate/Dose Verify - Provider: Christy Otoole RN)2306 (Rate/Dose Verify - Provider: Christy Otoole RN) 0009 (Rate/Dose Verify - Provider: Christy Otoole RN)0121 (Stopped - Provider: Christy Otoole RN) sodium chloride 0.9 % infusion (CANCELED)(Linked Group 4) 250 mL/hr, IntraVENous, Continuous, Starting on 02/15/24 at 1700, When serum glucose reaches 250 mg/dL, change to 5 % dextrose with 0.45 % sodium chloride at 150-250 mL/hour with adequate insulin between 150-200 mg/dL until metabolic control is achieved. 1654 (New Bag - Provider: Winsome Guan RN)1753 (Stopped - Provider: Winsome Guan RN) PRN Medication Order 02/15/2024 02/16/2024 02/17/2024 albuterol (2.5 MG/3ML) 0.083% nebulizer solution 2.5 mg 2.5 mg, Nebulization, Every 2 hour PRN, wheezing, Starting on 02/15/24 at 1833, Initiate RT Bronchodilator Protocol: dextrose 5 % and sodium chloride 0.45 % infusion (CANCELED) 250 mL/hr, IntraVENous, Continuous PRN, blood glucose LESS than or EQUAL to 250 mg/dL, Starting on 02/15/24 at 1543, When blood glucose equals 250 mg/dL or below, DISCONTINUE saline IV Fluid using Per Protocol order mode and start using this dextrose containing IV fluid order. DO NOT restart saline infusion if subsequent blood glucose returns above 250 mg/dL. 1753 (New Bag - Provider: Winsome Guan RN)2220 (New Bag - Provider: Christy Otoole RN) 0115 (Stopped - Provider: Christy Otoole RN) dextrose 50 % solution 12.5 g 12.5 g, IntraVENous, As needed, low blood sugar, Starting on 02/15/24 at 1542, For blood glucose level less than 70 mg/dL. Check blood glucose every 15 minutes and repeat above if blood glucose is less than 70 mg/dL. dicyclomine (Bentyl) capsule 10 mg 10 mg, Oral, Every 6 hours PRN, heartburn, Starting on 02/15/24 at 1835 magnesium sulfate IVPB 4,000 mg(Linked Group 5) 4,000 mg, IntraVENous, at 25 mL/hr, Administer over 4 Hours, As needed, Per Magnesium Replacement Protocol, Starting on 02/15/24 at 1542, Mg Lab Replacement Action 1.4-1.6 2 gram IVPB x 1 doses 1.0-1.3 4 gram IVPB x 1 doses Less than 1.0 CALL PROVIDER and 4 gram IVPB x 1 doses Infuse at 1 gram/hr. Repeat Mag level next AM. Not for use in Patients with CrCl less than 30 mL/min. magnesium sulfate IVPB premix 2,000 mg(Linked Group 5) 2,000 mg, IntraVENous, at 25 mL/hr, Administer over 2 Hours, As needed, Per Magnesium Replacement Protocol, Starting on 02/15/24 at 1542, Mg Lab Replacement Action 1.4-1.6 2 gram IVPB x 1 doses 1.0-1.3 4 gram IVPB x 1 doses Less than 1.0 CALL PROVIDER and 4 gram IVPB x 1 doses Infuse at 1 gram/hr. Repeat Mag level next AM. Not for use in Patients with CrCl less than 30 mL/min. melatonin tablet 5 mg 5 mg, Oral, Nightly PRN, sleep, Starting on 02/15/24 at 2152 2214 (Given - Provider: Christy Otoole, JENELLE) naloxone (Narcan) injection 0.4 mg 0.4 mg, IntraVENous, Every 5 min PRN, opioid reversal, respiratory depression, over sedation, RR <10, pinpoint pupils, Starting on 02/15/24 at 1833, +++notify supervisor show operations provider if used+++ ondansetron (Zofran) injection 4 mg(Linked Group 6) 4 mg, IntraVENous, Every 6 hours PRN, nausea, vomiting, Starting on 02/15/24 at 1833, 1st Line. Give IV if patient is unable to take orally. If inadequate response within 60 minutes, proceed to next-line agent or contact provider if no further options ordered. 1240 (Given - Provider: Audrey Nayak RN) ondansetron ODT (Zofran-ODT) disintegrating tablet 4 mg(Linked Group 6) 4 mg, Oral, Every 8 hours PRN, nausea, vomiting, Starting on 02/15/24 at 1833, 1st Line. If inadequate response within 60 minutes, proceed to next-line agent or contact provider if no further options ordered. Patient should allow tablet to dissolve on tongue. Do not remove from blister pack until just before administering. 1240 (See Alternative - Provider: Audrey Nayak RN) oxyCODONE (Roxicodone) immediate release tablet 2.5 mg(Linked Group 7) 2.5 mg, Oral, Every 4 hours PRN, mild pain (1-3), moderate pain (4-6), Starting on 02/15/24 at 1833 1851 (See Alternative - Provider: Stepan Willson, JENELLE) 0239 (See Alternative - Provider: Christy Otoole RN) oxyCODONE (Roxicodone) immediate release tablet 5 mg(Linked Group 7) 5 mg, Oral, Every 4 hours PRN, severe pain (7-10), Starting on 02/15/24 at 1833 1851 (Given - Provider: Stepan Willson, JENELLE) 023 (Given - Provider: Christy Otoole RN) sodium phosphates 10 mmol in dextrose 5 % 100 mL IVPB(Linked Group 8) 10 mmol, IntraVENous, at 66.7 mL/hr, Administer over 90 Minutes, PRN, Per Phosphate IV Replacement Protocol, Starting on 02/15/24 at 1542, Phos level Replacement Action 2.3 to 2.7 mg/dL 10 mmol IVPB over 1.5 hours 1.5 to 2.2 mg/dL 15 mmol IVPB over 2 hours LESS than 1.5 mg/dL 20 mmol IVPB over 3 hours 2142 (New Bag - Provider: Christy Otoole RN)2313 (Stopped - Provider: Christy Otoole RN) 0240 (New Bag - Provider: Christy Otoole RN)0410 (Stopped - Provider: Christy Otoole RN) sodium phosphates 15 mmol in dextrose 5 % 250 mL IVPB(Linked Group 8) 15 mmol, IntraVENous, at 125 mL/hr, Administer over 120 Minutes, PRN, Per Phosphate IV Replacement Protocol, Starting on 02/15/24 at 1542, Phos level Replacement Action 2.3 to 2.7 mg/dL 10 mmol IVPB over 1.5 hours 1.5 to 2.2 mg/dL 15 mmol IVPB over 2 hours LESS than 1.5 mg/dL 20 mmol IVPB over 3 hours 2142 (See Alternative - Provider: Christy Otoole RN)2313 (See Alternative - Provider: Christy Otoole RN) 0240 (See Alternative - Provider: Christy Otoole RN)0410 (See Alternative - Provider: Christy Otoole RN) sodium phosphates 20 mmol in dextrose 5 % 250 mL IVPB(Linked Group 8) 20 mmol, IntraVENous, at 83.3 mL/hr, Administer over 180 Minutes, PRN, Per Phosphate IV Replacement Protocol, Starting on 02/15/24 at 1542, Phos level Replacement Action 2.3 to 2.7 mg/dL 10 mmol IVPB over 1.5 hours 1.5 to 2.2 mg/dL 15 mmol IVPB over 2 hours LESS than 1.5 mg/dL 20 mmol IVPB over 3 hours 2142 (See Alternative - Provider: Christy Otoole RN)2313 (See Alternative - Provider: Christy Otoole RN) 0240 (See Alternative - Provider: Christy Otoole RN)0410 (See Alternative - Provider: Christy Otoole RN) Linked Groups Order Group 1: lidocaine (Xylocaine) 2 % mouth solution 5 mL (COMPLETED)Jump to med 5 mL, Mouth/Throat, Once, On 02/15/24 at 1740, For 1 dose, Mix with 20 mL aluminum & magnesium hydroxide-simethicone oral solution and give together (25 mL total) And aluminum & magnesium hydroxide-simethicone (Mylanta) 200-200-20 MG/5ML oral suspension 20 mL (COMPLETED)Jump to med 20 mL, Oral, Once, On 02/15/24 at 1740, For 1 dose, Mix with 5 mL viscous lidocaine oral solution and give together (25 mL total). Group 2: lidocaine (Xylocaine) 2 % mouth solution 5 mL (COMPLETED)Jump to med 5 mL, Mouth/Throat, Once, On 02/15/24 at 1840, For 1 dose, Mix with 20 mL aluminum & magnesium hydroxide-simethicone oral solution and give together (25 mL total) And aluminum & magnesium hydroxide-simethicone (Mylanta) 200-200-20 MG/5ML oral suspension 20 mL (COMPLETED)Jump to med 20 mL, Oral, Once, On 02/15/24 at 1840, For 1 dose, Mix with 5 mL viscous lidocaine oral solution and give together (25 mL total). Group 3: Insulin Lispro (Humalog) injection 0-12 UnitsJump to med 0-12 Units, SubCUTAneous, 3 times daily with meals, First dose on 02/16/24 at 0800, Medium Dose Correction Algorithm Glucose: Dose: LESS than 139 No Insulin 140-199 2 Unit 200-249 4 Units 250-299 6 Units 300-349 8 Units 350-400 10 Units Above 400 12 Units And Insulin Lispro (Humalog) injection 0-12 UnitsJump to med 0-12 Units, SubCUTAneous, Nightly, First dose on 02/16/24 at 0115, If continuous tube feedings/TPN/NPO, give correction dose based on result, no reduction in dose. If eating or bolus tube feeding: Medium Dose Correction Algorithm Glucose: Dose: LESS than 139 No Insulin 140-199 2 Unit 200-249 4 Units 250-299 6 Units 300-349 8 Units 350-400 10 Units Above 400 12 Units Group 4: sodium chloride 0.9 % bolus 1,224 mL (COMPLETED)Jump to med 1,224 mL (15 mL/kg 81.6 kg), IntraVENous, at 1,224 mL/hr, Administer over 1 Hours, Once, On 02/15/24 at 1545, For 1 dose, Administer over 1 hour, then transition to maintenance infusion. Followed by sodium chloride 0.9 % infusion (CANCELED)Jump to med 250 mL/hr, IntraVENous, Continuous, Starting on 02/15/24 at 1700, When serum glucose reaches 250 mg/dL, change to 5 % dextrose with 0.45 % sodium chloride at 150-250 mL/hour with adequate insulin between 150-200 mg/dL until metabolic control is achieved. Group 5: magnesium sulfate IVPB premix 2,000 mgJump to med 2,000 mg, IntraVENous, at 25 mL/hr, Administer over 2 Hours, As needed, Per Magnesium Replacement Protocol, Starting on 02/15/24 at 1542, Mg Lab Replacement Action 1.4-1.6 2 gram IVPB x 1 doses 1.0-1.3 4 gram IVPB x 1 doses Less than 1.0 CALL PROVIDER and 4 gram IVPB x 1 doses Infuse at 1 gram/hr. Repeat Mag level next AM. Not for use in Patients with CrCl less than 30 mL/min. Or magnesium sulfate IVPB 4,000 mgJump to med 4,000 mg, IntraVENous, at 25 mL/hr, Administer over 4 Hours, As needed, Per Magnesium Replacement Protocol, Starting on 02/15/24 at 1542, Mg Lab Replacement Action 1.4-1.6 2 gram IVPB x 1 doses 1.0-1.3 4 gram IVPB x 1 doses Less than 1.0 CALL PROVIDER and 4 gram IVPB x 1 doses Infuse at 1 gram/hr. Repeat Mag level next AM. Not for use in Patients with CrCl less than 30 mL/min. Group 6: ondansetron ODT (Zofran-ODT) disintegrating tablet 4 mgJump to med 4 mg, Oral, Every 8 hours PRN, nausea, vomiting, Starting on 02/15/24 at 1833, 1st Line. If inadequate response within 60 minutes, proceed to next-line agent or contact provider if no further options ordered. Patient should allow tablet to dissolve on tongue. Do not remove from blister pack until just before administering. Or ondansetron (Zofran) injection 4 mgJump to med 4 mg, IntraVENous, Every 6 hours PRN, nausea, vomiting, Starting on 02/15/24 at 1833, 1st Line. Give IV if patient is unable to take orally. If inadequate response within 60 minutes, proceed to next-line agent or contact provider if no further options ordered. Group 7: oxyCODONE (Roxicodone) immediate release tablet 2.5 mgJump to med 2.5 mg, Oral, Every 4 hours PRN, mild pain (1-3), moderate pain (4-6), Starting on 02/15/24 at 1833 Or oxyCODONE (Roxicodone) immediate release tablet 5 mgJump to med 5 mg, Oral, Every 4 hours PRN, severe pain (7-10), Starting on 02/15/24 at 1833 Group 8: sodium phosphates 10 mmol in dextrose 5 % 100 mL IVPBJump to med 10 mmol, IntraVENous, at 66.7 mL/hr, Administer over 90 Minutes, PRN, Per Phosphate IV Replacement Protocol, Starting on 02/15/24 at 1542, Phos level Replacement Action 2.3 to 2.7 mg/dL 10 mmol IVPB over 1.5 hours 1.5 to 2.2 mg/dL 15 mmol IVPB over 2 hours LESS than 1.5 mg/dL 20 mmol IVPB over 3 hours Or sodium phosphates 15 mmol in dextrose 5 % 250 mL IVPBJump to med 15 mmol, IntraVENous, at 125 mL/hr, Administer over 120 Minutes, PRN, Per Phosphate IV Replacement Protocol, Starting on 02/15/24 at 1542, Phos level Replacement Action 2.3 to 2.7 mg/dL 10 mmol IVPB over 1.5 hours 1.5 to 2.2 mg/dL 15 mmol IVPB over 2 hours LESS than 1.5 mg/dL 20 mmol IVPB over 3 hours Or sodium phosphates 20 mmol in dextrose 5 % 250 mL IVPBJump to med 20 mmol, IntraVENous, at 83.3 mL/hr, Administer over 180 Minutes, PRN, Per Phosphate IV Replacement Protocol, Starting on 02/15/24 at 1542, Phos level Replacement Action 2.3 to 2.7 mg/dL 10 mmol IVPB over 1.5 hours 1.5 to 2.2 mg/dL 15 mmol IVPB over 2 hours LESS than 1.5 mg/dL 20 mmol IVPB over 3 hours Goals (unrecognized section and content) Goals may be documented in a n alternate section FOR RECORDS PERTAINING TO PATIENTS WHO ARE OR HAVE BEEN ENROLLED IN A CHEMICAL DEPENDENCY/SUBSTANCEABUSE PROGRAM, SOME INFORMATION MAY BE OMITTED. This clinical summary was aggregated from multiple sources. Caution should be exercised in using it in the provision of clinical care. This summary normalizes information from multiple sources, and as a consequence, information in this document may materially change the coding, format and clinical context of patient data. In addition, data may be omitted in some cases. CLINICAL DECISIONS SHOULD BE BASED ON THE PRIMARY CLINICAL RECORDS. [facility] [facility]. provides no warranty or guarantee of the accuracy or completeness of information in this document.
[2024-10-24 15:01] LABS: Red Blood Cells-Urine 0-5 SEEN /hpf (0-5)
[2024-10-24 15:45] LABS: Anion Gap 27 (5-15); BUN 44 mg/dL (4-19); BUN/Creat Ratio 31.4 RATIO (10-20); Calcium,Total 8.4 mg/dL (7.6-11.0); Carbon Dioxide 15.8 mmol/L (21.0-32.0); Chloride 88 mmol/L (98-108); EST Glomerular Filtration Rate 55 (>60); Estimated Creatinine Clearance 52.87 ml/min (50-250); Glucose 522 mg/dL (70-99); Potassium 6.5 mmol/L (3.3-5.1); Sodium Level 131 mmol/L (133-145); Troponin T High Sensitivity 17 ng/L (<=22)
[2024-10-24] MEDS: Ondansetron 4 MG/2 ML Vial IV ×3 (15:47→23:38)
[2024-10-24 15:50] LABS: Bedside Glucose 484 mg/dL (74-106)
[2024-10-24 15:57] LABS: BETA-HYDROXYBUTYRATE 6.6 mmol/L (0.0-0.3)
[2024-10-24 16:27] LABS: Lactic Acid 2.7 mmol/L (0.0-2.0)
[2024-10-24] MEDS: Insulin Lispro 100 UNIT in 0.9% Normal Saline (100mL Bag) 99 ML 7.9 UNIT CONT INF (16:53)
[2024-10-24] MEDS: Pantoprazole Sodium 40 MG in 0.9% Normal Saline (100mL MB+) 100 ML 300 MG IV (17:48)
--- OUTSIDE RECORDS SUMMARY | 2024-10-24 17:49 | XMS RPT_ITS | CCD ---
Author Organization [facility]ini[facility] Care Team Providers Care Publications Inspector Name Role Phone JAVAN MCKEON Unavailable Unavailable VERO VIVAR Unavailable Unavailable ANDREA LR Unavailable Unavailable Andrea Lr Primary Care Provider [phone] Andrea Lr MD Primary Care Provider AUSTIN [...] Dr. Jose Alfredo Valderrama DO Emergency Provider Care Physician, No Primary Primary Care Provider [...] Robison Consulting Unavailable Osei Talbot Consulting Unavailable mAirah Honeycutt Consulting Unavailable Paulette Luther Consulting Unavailable Meryl Torres Consulting Unavailable Lacie, Miguel Consulting Unavailable Gabriel Jo Consulting Unavailable Angelica, Daryl Consulting Unavailable Ramos Ordaz Consulting Unavailable Steffi Lion Consulting Unavailable Tank Mackey Consulting Unavailable Manuelito Herman Consulting Unavailable Ulices Saucedo Consulting Unavailable Gregor Zuniga Consulting Unavailable Jake, Jayaprakas Consulting Unavailable Brandon Medrano Consulting Unavailable Ranjan Negron Consulting Unavailable Ranjan Negron Referring Unavailable Vero Landeros Attending Unavailable Brandon Medrano Attending Unavailable Care Physician, No Primary Primary Care Unava ilable Miki Glover Attending Unavailable Miki Glover Consulting Unavailable Gary Lezama Consulting Unavailable [...] once daily 08/26/2024 Active Continuous Blood Gluc Domestic Freight Forwarder (Dexcom G7 Domestic Freight Forwarder) device (1 source) Start: 11-13-2022 End: 11-13-2022 Continuous Blood Gluc Domestic Freight Forwarder (Dexcom G7 Domestic Freight Forwarder) device Indications: Type 1 diabetes mellitus with hyperglycemia (HCC) 1 each Once for 1 dose. 1 each 0 11/13/2022 11/13/2022 Active Continuous Glucose Domestic Freight Forwarder (FreeStyle Katharina 3 [place]) device (1 source) Start: 08-05-2024 End: 08-05-2024 Continuous Glucose Domestic Freight Forwarder (FreeStyle Katharina 3 [place]) device 1 Device Once for 1 dose. [...] (Catapres) tablet 0.1 mg Continuous Blood Gluc Domestic Freight Forwarder (Dexcom G6 aerospace engineer officer armament) device (14 sources) Start: 05-10-2022 End: 11-13-2022 Continuous Blood Gluc Domestic Freight Forwarder (Dexcom G6 aerospace engineer officer armament) device Indications: Type 1 diabetes mellitus with hyperglycemia (HCC) Use as instructed 1 each 0 05/10/2022 11/13/2022 Discontinued Start: 05-10-2022 Continuous Blo od Gluc Domestic Freight Forwarder (Dexcom G6 aerospace engineer officer armament) device Indications: Type 1 diabetes mellitus with [...] Blo od Gluc Transmit (Dexcom G6 transmitter) [facility] Indications: Type 1 diabetes mellitus with hyperglycemia [...] 02-15-2024 End: 02-17-2024 omega-3 acid ethyl esters (correction) 1000 mg oral capsule (20 sources) Start: [...] mL IVPB Mini-Bag Plus polyethylene glycol 3350 41630 mg powder for oral solution (1 source) [...] disease (2 sources) Atherosclerotic heart disease of [place] coronary artery without angina pectoris; Translations: [Athscl heart disease of [place] coronary artery w/o ang pctrs] Onset: 2 [...] 10-01-2016 Chronic Other aftercare (2 sources) Other intermediate accountant (current) drug therapy; Translations: [Other usp (current) drug therapy] Onset: 2 Episodic Other aftercare (2 sources) long term (current) use of aspirin; Translations: [FPC (current) use of aspirin] Onset: 2 Episodic Other aftercare (2 sources) long term (current) use of insulin; Translations: [long term (current) use of insulin] Onset: 2 Episodic [...] Range Facility Office Visiton 09-15-2024 Follow-up visit [id number] Ganesh Bush 1955 M Date Provider Department Center 09/15/2024 [id number] LR [facility] Family History Problem Relation Age of Onset High Blood Pressure Mother Cancer Father Family Status - Relation Status Age at Mother Alive Father Daughter Alive Daughter Alive Level of Service:64266 OK OFFICE/OUTPATIENT ESTABLISHED MOD MDM 30 MIN Reason for Visit and Comments: Transitional Care Management Outreach [66036] Hospital Follow-up [832] - [facility] 08/10-08/26/24 Normal [facility] Progress Noteon 09-15-2024 Progress Note Controlled, continue levothyroxine 125 mcg daily Normal [facility] Progress Note Controlled, continue rosuvastatin 40 mg daily Normal [facility] Progress Note Control is variable, he is currently on Semglee 16 units nightly and insulin lispro 14 to 18 units with meals sliding scale. Follow-up with endocrinology as scheduled. Normal [facility] Progress Note Currently stable he would like a refill on his Zofran Normal [facility] Progress Note 09/15/2024 Ganesh Bush (: 1955) is a 68 y.o. male , Established patient, here for evaluation of the following chief complaint(s): Transitional Care Management Outreach and Hospital Follow-up ([facility] 08/10-08/26/24) ASSESSMENT/PLAN: 1. Type 1 diabetes mellitus [...] recently had blood work done by his clinical laboratory aides teacher. He has no complaints today says he [...] note. Andrea Lr MD 09/15/2024 11:07 AM [facility] Progress Note Patient verified by last name and date of . [facility] 36on 09-14-2024 36 Message released to patient as written. yes Patient's further questions if applicable: The patient called back about previsit planning the office is closed. The patient will arrive a few minutes early to answer any questions. Were all questions from office addressed or relayed to the patient from encounter: Yes [facility] 36 lm to pre-visit plan for appointment with Dr Lr on 09/14/24 10am. Please ask patient to arrive 15 minutes early with Photo ID, insurance card Fasting: no [facility] CBC W/Diff, Automatedon 05-0 Platelets (Bld) [#/Vol] 202 10*3/uL Normal 150-450 [facility] Comment on above: Performed By: #### L 100.0100 ####[facility] [address] [place], [address] Emergency Department Summary on 08-28-2024 Emergency Department Summary Normal [facility] CBC W/Diff, Automatedon 05-0 Absolute Neut Normal 2.0-7.7 [facility] Comment on above: Result Comment: Canc elled via OM: Order cancelled - Patient discharged Performed By: #### L 100.0100, L500.3400 ####[facility] [address] [place], [address] HCT Normal 40-54 [facility] Comment on above: Result Comment: Canc elled via OM: Order cancelled - Patient discharged Performed By: #### L 100.0100, L500.3400 ####[facility] [address] [place], [address] HGB Normal 13.0-16.5 [facility] Comment on above: Result Comment: Canc elled via OM: Order cancelled - Patient discharged Performed By: #### L 100.0100, L500.3400 ####[facility] [address] [place], [address] MCH Normal 27.0-32.0 [facility] Comment on above: Result Comment: Canc elled via OM: Order cancelled - Patient discharged Performed By: #### L 100.0100, L500.3400 ####[facility] [address] [place], [address] MCHC Normal 32-36 [facility] Comment on above: Result Comment: Canc elled via OM: Order cancelled - Patient discharged Performed By: #### L 100.0100, L500.3400 ####[facility] [address] [place], [address] MCV Normal 80-94 [facility] Comment on above: Result Comment: Canc elled via OM: Order cancelled - Patient discharged Performed By: #### L 100.0100, L500.3400 ####[facility] [address] [place], [address] NEUT% Normal 47-70 [facility] Comment on above: Result Comment: Canc elled via OM: Order cancelled - Patient discharged Performed By: #### L 100.0100, L500.3400 ####[facility] [address] [place], [address] PLT Normal 150-450 [facility] Comment on above: Result Comment: Canc elled via OM: Order cancelled - Patient discharged Performed By: #### L 100.0100, L500.3400 ####[facility] [address] [place], [address] RBC Normal 4.6-6.2 [facility] Comment on above: Result Comment: Canc elled via OM: Order cancelled - Patient discharged Performed By: #### L 100.0100, L500.3400 ####[facility] [address] [place], [address] RDW CV Normal 11.6-14.6 [facility] Comment on above: Result Comment: Canc elled via OM: Order cancelled - Patient discharged Performed By: #### L 100.0100, L500.3400 ####[facility] [address] [place], [address] RDW SD Normal 35.1-43.9 [facility] Comment on above: Result Comment: Canc elled via OM: Order cancelled - Patient discharged Performed By: #### L 100.0100, L500.3400 ####[facility] [address] [place], [address] WBC Normal 4.4-11.0 [facility] Comment on above: Result Comment: Canc elled via OM: Order cancelled - Patient discharged Performed By: #### L 100.0100, L500.3400 ####[facility] [address] [place], [address] Hepatitis Panel Acuteon 05-0 HCV Interpretat Comment Normal . [facility] Comment on above: Result Comment: Posi tive HCV antibody screen without the presence of HCVRNA is consistent with a resolved past infection or a falsepositive HCV antibody. Consider repeat testing after onemonth.Performed at: - [facility] [address] [id number] Director: Dwaine Babin PhD, Phone: [phone] at: - [facility] [address] [id number] Director: Dinesh Oliveira MD, Phone: [phone] Performed By: #### L 3000.0375 ####[facility] [address] [place], [address] HCV log 10 TNP Normal . [facility] Comment on above: Performed By: #### L 3000.0375 ####[facility] [address] [place], [address] HEP B CORE,IgM Negative Normal Negative [facility] Comment on above: Performed By: #### L 3000.0375 ####[facility] [address] [place], [address] HEP B SURF AG Negative Normal Negative [facility] Comment on above: Performed By: #### L 3000.0375 ####[facility] [address] [place], [address] Hep C Quant Not detected Normal . [facility] Comment on above: Performed By: #### L 3000.0375 ####[facility] [address] [place], [address] HEP C VIRUS AB Reactive Abnormal Non Reactive [facility] Comment on above: Performed By: #### L 3000.0375 ####[facility] [address] [place], [address] HEPATITIS A-IgM Negative Normal Negative [facility] Comment on above: Result Comment: A ne gative anti-HAV IgM result suggests no recent orcurrent HAV infection. Performed By: #### L 3000.0375 ####[facility] [address] [place], [address] Test Informatio Comment Normal . [facility] Comment on above: Result Comment: The quantitative range of this assay is 15 IU/mL to 100million IU/mL. Performed By: #### L 3000.0375 ####[facility] [address] [place], [address] Liver Profileon 08-27-2024 ALB Normal 3.4-4.8 [facility] Comment on above: Result Comment: Canc elled via OM: Order cancelled - Patient discharged Performed By: #### L 100.0100, L500.3400 ####[facility] [address] [place], [address] ALK PHOS Normal 40-129 [facility] Comment on above: Result Comment: Canc elled via OM: Order cancelled - Patient discharged Performed By: #### L 100.0100, L500.3400 ####[facility] [address] [place], [address] ALT Normal <=46 [facility] Comment on above: Result Comment: Canc elled via OM: Order cancelled - Patient discharged Performed By: #### L 100.0100, L500.3400 ####[facility] [address] [place], [address] AST Normal <=37 [facility] Comment on above: Result Comment: Canc elled via OM: Order cancelled - Patient discharged Performed By: #### L 100.0100, L500.3400 ####[facility] [address] [place], [address] D BILI Normal 0.00-0.30 [facility] Comment on above: Result Comment: Canc elled via OM: Order cancelled - Patient discharged Performed By: #### L 100.0100, L500.3400 ####[facility] [address] [place], [address] T BILI Normal 0.00-1.30 [facility] Comment on above: Result Comment: Canc elled via OM: Order cancelled - Patient discharged Performed By: #### L 100.0100, L500.3400 ####[facility] [address] [place], [address] T PROT Normal 5.9-8.4 [facility] Comment on above: Result Comment: Canc elled via OM: Order cancelled - Patient discharged Performed By: #### L 100.0100, L500.3400 ####[facility] [address] [place], [address] Basic Metabolic Profile (BMP )on 08-26-2024 BUN/CRE 6.6 RATIO Low 10-20 [facility] Comment on above: Performed By: #### L 100.0100, L500.3400, L500.2500 ####[facility] [address] [place], [address] Calcium [Mass/Vol] 8.0 mg/dL Normal 7.6-11.0 [facility] Comment on above: Performed By: #### L 100.0100, L500.3400, L500.2500 ####[facility] [address] [place], [address] Chloride [Moles/Vol] 103 mmol/L Normal 98-108 [facility] Comment on above: Performed By: #### L 100.0100, L500.3400, L500.2500 ####[facility] [address] [place], [address] CO2 [Moles/Vol] 19.5 mmol/L Low 21.0-32.0 [facility] Comment on above: Performed By: #### L 100.0100, L500.3400, L500.2500 ####[facility] [address] [place], [address] Creatinine [Mass/Vol] 5.67 mg/dL High 0.70-1.20 [facility] Comment on above: Performed By: #### L 100.0100, L500.3400, L500.2500 ####[facility] [address] [place], [address] ECRCL 13.88 ml/min Low 50-250 [facility] Comment on above: Performed By: #### L 100.0100, L500.3400, L500.2500 ####[facility] [address] [place], [address] GAP 14 Normal 5-15 [facility] Comment on above: Performed By: #### L 100.0100, L500.3400, L500.2500 ####[facility] [address] [place], [address] GFR/1.73 sq M.predicted among non-blacks MDRD (S/P/Bld) [Vol rate/Area] 10 mL/min/{1.73_m2} Low >60 [facility] Comment on above: Result Comment: mL/m in/1.73m2 CKD-EPI Creatinine Equation (2020) Performed By: #### L 100.0100, L500.3400, L500.2500 ####[facility] [address] [place], [address] Glucose [Mass/Vol] 60 mg/dL Low 70-99 [facility] Comment on above: Performed By: #### L 100.0100, L500.3400, L500.2500 ####[facility] [address] [place], [address] Potassium [Moles/Vol] 4.7 mmol/L Normal 3.3-5.1 [facility] Comment on above: Performed By: #### L 100.0100, L500.3400, L500.2500 ####[facility] [address] [place], [address] Sodium [Moles/Vol] 137 mmol/L Normal 133-145 [facility] Comment on above: Performed By: #### L 100.0100, L500.3400, L500.2500 ####[facility] [address] [place], [address] Urea nitrogen [Mass/Vol] 38 mg/dL High 4-19 [facility] Comment on above: Performed By: #### L 100.0100, L500.3400, L500.2500 ####[facility] [address] [place], [address] Bedside Glucoseon 08-26-2024 FINGERSTICK GLU 79 mg/dL Normal 74-106 [facility] Comment on above: Result Comment: ANABELLE GEMENT OF PATIENT CARE PER NURSING PROTOCOL Performed By: #### L 501.080 ####[facility] [address] [place], [address] FINGERSTICK GLU 56 mg/dL Low 74-106 [facility] Comment on above: Result Comment: ANABELLE GEMENT OF PATIENT CARE PER NURSING PROTOCOL Performed By: #### L 501.080 ####[facility] [address] [place], [address] FINGERSTICK GLU 98 mg/dL Normal 74-106 [facility] Comment on above: Result Comment: ANABELLE GEMENT OF PATIENT CARE PER NURSING PROTOCOL Performed By: #### L 501.080 ####[facility] [address] [place], [address] CBC W/Diff, Automatedon 04-3 0-2024 Absolute Lymph 1.58 X10 3/uL Normal 0.83-4.51 [facility] Comment on above: Performed By: #### L 100.0100, L500.3400, L500.2500 ####[facility] [address] [place], [address] Absolute Neut 7.4 X10 3/uL Normal 2.0-7.7 [facility] Comment on above: Performed By: #### L 100.0100, L500.3400, L500.2500 ####[facility] [address] [place], [address] Basophils/100 WBC (Bld) 1.1 % High 0-1 [facility] Comment on above: Performed By: #### L 100.0100, L500.3400, L500.2500 ####[facility] [address] [place], [address] Eosinophils/100 WBC (Bld) 1.6 % Normal 0-5 [facility] Comment on above: Performed By: #### L 100.0100, L500.3400, L500.2500 ####[facility] [address] [place], [address] Erythrocyte distribution width (RBC) [Ratio] 14.8 % High 11.6-14.6 [facility] Comment on above: Performed By: #### L 100.0100, L500.3400, L500.2500 ####[facility] [address] [place], [address] Hematocrit (Bld) [Volume fraction] 25.7 % Low 40-54 [facility] Comment on above: Performed By: #### L 100.0100, L500.3400, L500.2500 ####[facility] [address] [place], [address] Hemoglobin (Bld) [Mass/Vol] 8.7 g/dL Low 13.0-16.5 [facility] Comment on above: Performed By: #### L 100.0100, L500.3400, L500.2500 ####[facility] [address] [place], [address] IG% 0.900 Normal 0.0-0.9 [facility] Comment on above: Result Comment: IG% - Immature Granulocytes (promyelocytes, myelocytes andmetamyelocytes) > 1% indicates that a LEFT SHIFT is Present. Performed By: #### L 100.0100, L500.3400, L500.2500 ####[facility] [address] [place], [address] Lymphocytes/100 WBC (Bld) 15.3 % Low 19-41 [facility] Comment on above: Performed By: #### L 100.0100, L500.3400, L500.2500 ####[facility] [address] [place], [address] MCH (RBC) [Entitic mass] 30.9 pg Normal 27.0-32.0 [facility] Comment on above: Performed By: #### L 100.0100, L500.3400, L500.2500 ####[facility] [address] [place], [address] MCHC (RBC) [Mass/Vol] 33.9 g/dL Normal 32-36 [facility] Comment on above: Performed By: #### L 100.0100, L500.3400, L500.2500 ####[facility] [address] [place], [address] MCV (RBC) [Entitic vol] 91.1 fL Normal 80-94 [facility] Comment on above: Performed By: #### L 100.0100, L500.3400, L500.2500 ####[facility] [address] [place], [address] Monocytes/100 WBC (Bld) 10.1 % High 0-10 [facility] Comment on above: Performed By: #### L 100.0100, L500.3400, L500.2500 ####[facility] [address] [place], [address] Neutrophils/100 WBC (Bld) 71.0 % High 47-70 [facility] Comment on above: Performed By: #### L 100.0100, L500.3400, L500.2500 ####[facility] [address] [place], [address] Nucleated RBC (Bld) [#/Vol] 0 10*3/uL Normal 0-5 [facility] Comment on above: Performed By: #### L 100.0100, L500.3400, L500.2500 ####[facility] [address] [place], [address] Platelet mean volume (Bld) [Entitic vol] 9.0 fL Normal 6.2-12.0 [facility] Comment on above: Performed By: #### L 100.0100, L500.3400, L500.2500 ####[facility] [address] [place], [address] Platelets (Bld) [#/Vol] 432 10*3/uL Normal 150-450 [facility] Comment on above: Performed By: #### L 100.0100, L500.3400, L500.2500 ####[facility] [address] [place], [address] RBC (Bld) [#/Vol] 2.82 10*6/uL Low 4.6-6.2 [facility] Comment on above: Performed By: #### L 100.0100, L500.3400, L500.2500 ####[facility] [address] [place], [address] RDW SD 46.7 fl High 35.1-43.9 [facility] Comment on above: Performed By: #### L 100.0100, L500.3400, L500.2500 ####[facility] [address] [place], [address] WBC (Bld) [#/Vol] 10.4 10*3/uL Normal 4.4-11.0 [facility] Comment on above: Performed By: #### L 100.0100, L500.3400, L500.2500 ####[facility] [address] [place], [address] CXR for Line Placementon CXR for Line Placement Normal [facility] Liver Profileon 08-26-2024 Albumin [Mass/Vol] 2.9 g/dL Low 3.4-4.8 [facility] Comment on above: Performed By: #### L 100.0100, L500.3400, L500.2500 ####[facility] [address] [place], [address] ALK PHOS 93 U/L Normal 40-129 [facility] Comment on above: Performed By: #### L 100.0100, L500.3400, L500.2500 ####[facility] [address] [place], [address] ALT [Catalytic activity/Vol] 27 U/L Normal <=46 [facility] Comment on above: Performed By: #### L 100.0100, L500.3400, L500.2500 ####[facility] [address] [place], [address] AST [Catalytic activity/Vol] 39 U/L High <=37 [facility] Comment on above: Performed By: #### L 100.0100, L500.3400, L500.2500 ####[facility] [address] [place], [address] Bilirubin [Mass/Vol] 0.22 mg/dL Normal 0.00-1.30 [facility] [facility] Comment on above: Performed By: #### L 100.0100, L500.3400, L500.2500 ####[facility] [address] [place], [address] Bilirubin.direct [Mass/Vol] 0.12 mg/dL Normal 0.00-0.30 [facility] Comment on above: Performed By: #### L 100.0100, L500.3400, L500.2500 ####[facility] [address] [place], [address] Globulin (S) [Mass/Vol] 3.0 g/dL Normal 2.2-4.2 [facility] Comment on above: Performed By: #### L 100.0100, L500.3400, L500.2500 ####[facility] [address] [place], [address] T PROT 5.9 g/dL Normal 5.9-8.4 [facility] Comment on above: Performed By: #### L 100.0100, L500.3400, L500.2500 ####[facility] [address] [place], [address] MR/POSTOP.ANEon 08-26-2024 MR/POSTOP.ANE Normal [facility] MR/OSAJHOFI1ty 08-26-2024 MR/POSTOPAN2 Normal [facility] Operative Reporton Operative Report Normal [facility] Partial Thromboplast Timeon 08-26-2024 aPTT Coag (Bld) [Time] 33.4 s Normal 24.1-36.2 [facility] Comment on above: Performed By: #### L 300.3900, L300.4310 ####[facility] [address] [place], [address] Prothrombin Time w/INRon INR Coag (PPP) [Relative time] 0.9 {INR} Normal [facility] Comment on above: Performed By: #### L 300.3900, L300.4310 ####[facility] [address] [place], [address] PT Coag (PPP) [Time] 12.5 s Normal 11.7-14.9 [facility] Comment on above: Performed By: #### L 300.3900, L300.4310 ####[facility] [address] [place], [address] Basic Metabolic Profile (BMP )on 08-25-2024 BUN/CRE 5.9 RATIO Low 10-20 [facility] Comment on above: Performed By: #### L 100.0100, L501.5200, L500.2500, L501.2300, L500.3400 ####[facility] [address] [place], [address] Calcium [Mass/Vol] 8.2 mg/dL Normal 7.6-11.0 [facility] Comment on above: Performed By: #### L 100.0100, L501.5200, L500.2500, L501.2300, L500.3400 ####[facility] [address] [place], [address] Chloride [Moles/Vol] 102 mmol/L Normal 98-108 [facility] Comment on above: Performed By: #### L 100.0100, L501.5200, L500.2500, L501.2300, L500.3400 ####[facility] [address] [place], [address] CO2 [Moles/Vol] 23.1 mmol/L Normal 21.0-32.0 [facility] Comment on above: Performed By: #### L 100.0100, L501.5200, L500.2500, L501.2300, L500.3400 ####[facility] [address] [place], [address] Creatinine [Mass/Vol] 4.65 mg/dL High 0.70-1.20 [facility] Comment on above: Performed By: #### L 100.0100, L501.5200, L500.2500, L501.2300, L500.3400 ####[facility] [address] [place], [address] ECRCL 16.92 ml/min Low 50-250 [facility] Comment on above: Performed By: #### L 100.0100, L501.5200, L500.2500, L501.2300, L500.3400 ####[facility] [address] [place], [address] GAP 11 Normal 5-15 [facility] Comment on above: Performed By: #### L 100.0100, L501.5200, L500.2500, L501.2300, L500.3400 ####[facility] [address] [place], [address] GFR/1.73 sq M.predicted among non-blacks MDRD (S/P/Bld) [Vol rate/Area] 13 mL/min/{1.73_m2} Low >60 [facility] Comment on above: Result Comment: mL/m in/1.73m2 CKD-EPI Creatinine Equation (2020) Performed By: #### L 100.0100, L501.5200, L500.2500, L501.2300, L500.3400 ####[facility] [address] [place], [address] Glucose [Mass/Vol] 63 mg/dL Low 70-99 [facility] Comment on above: Performed By: #### L 100.0100, L501.5200, L500.2500, L501.2300, L500.3400 ####[facility] [address] [place], [address] Potassium [Moles/Vol] 4.7 mmol/L Normal 3.3-5.1 [facility] Comment on above: Performed By: #### L 100.0100, L501.5200, L500.2500, L501.2300, L500.3400 ####[facility] [address] [place], [address] Sodium [Moles/Vol] 136 mmol/L Normal 133-145 [facility] Comment on above: Performed By: #### L 100.0100, L501.5200, L500.2500, L501.2300, L500.3400 ####[facility] [address] [place], [address] Urea nitrogen [Mass/Vol] 27 mg/dL High 4-19 [facility] Comment on above: Performed By: #### L 100.0100, L501.5200, L500.2500, L501.2300, L500.3400 ####[facility] [address] [place], [address] Bedside Glucoseon 08-25-2024 FINGERSTICK GLU 153 mg/dL High 74-106 [facility] Comment on above: Result Comment: ANABELLE GEMENT OF PATIENT CARE PER NURSING PROTOCOL Performed By: #### L 501.080 ####[facility] [address] [place], [address] FINGERSTICK GLU 112 mg/dL High 74-106 [facility] Comment on above: Result Comment: ANABELLE GEMENT OF PATIENT CARE PER NURSING PROTOCOL Performed By: #### L 501.080 ####[facility] [address] [place], [address] FINGERSTICK GLU 171 mg/dL High 74-106 [facility] Comment on above: Result Comment: ANABELLE GEMENT OF PATIENT CARE PER NURSING PROTOCOL Performed By: #### L 501.080 ####[facility] [address] [place], [address] FINGERSTICK GLU 132 mg/dL High 74-106 [facility] Comment on above: Result Comment: ANABELLE GEMENT OF PATIENT CARE PER NURSING PROTOCOL Performed By: #### L 501.080 ####[facility] [address] [place], [address] FINGERSTICK GLU 55 mg/dL Low 74-106 [facility] Comment on above: Result Comment: ANABELLE GEMENT OF PATIENT CARE PER NURSING PROTOCOL Performed By: #### L 501.080 ####[facility] [address] [place], [address] FINGERSTICK GLU 310 mg/dL High 74-106 [facility] Comment on above: Result Comment: ANABELLE GEMENT OF PATIENT CARE PER NURSING PROTOCOL Performed By: #### L 501.080 ####[facility] [address] [place], [address] CBC W/Diff, Automatedon 04-2 Absolute Lymph 1.30 X10 3/uL Normal 0.83-4.51 [facility] Comment on above: Performed By: #### L 100.0100, L501.5200, L500.2500, L501.2300, L500.3400 ####[facility] [address] [place], [address] Absolute Neut 7.9 X10 3/uL High 2.0-7.7 [facility] Comment on above: Performed By: #### L 100.0100, L501.5200, L500.2500, L501.2300, L500.3400 ####[facility] [address] [place], [address] Basophils/100 WBC (Bld) 1.0 % Normal 0-1 [facility] Comment on above: Performed By: #### L 100.0100, L501.5200, L500.2500, L501.2300, L500.3400 ####[facility] [address] [place], [address] Eosinophils/100 WBC (Bld) 1.6 % Normal 0-5 [facility] Comment on above: Performed By: #### L 100.0100, L501.5200, L500.2500, L501.2300, L500.3400 ####[facility] [address] [place], [address] Erythrocyte distribution width (RBC) [Ratio] 14.7 % High 11.6-14.6 [facility] Comment on above: Performed By: #### L 100.0100, L501.5200, L500.2500, L501.2300, L500.3400 ####[facility] [address] [place], [address] Hematocrit (Bld) [Volume fraction] 26.2 % Low 40-54 [facility] Comment on above: Performed By: #### L 100.0100, L501.5200, L500.2500, L501.2300, L500.3400 ####[facility] [address] [place], [address] Hemoglobin (Bld) [Mass/Vol] 8.7 g/dL Low 13.0-16.5 [facility] Comment on above: Performed By: #### L 100.0100, L501.5200, L500.2500, L501.2300, L500.3400 ####[facility] [address] [place], [address] IG% 0.900 Normal 0.0-0.9 [facility] Comment on above: Result Comment: IG% - Immature Granulocytes (promyelocytes, myelocytes andmetamyelocytes) > 1% indicates that a LEFT SHIFT is Present. Performed By: #### L 100.0100, L501.5200, L500.2500, L501.2300, L500.3400 ####[facility] [address] [place], [address] Lymphocytes/100 WBC (Bld) 12.3 % Low 19-41 [facility] Comment on above: Performed By: #### L 100.0100, L501.5200, L500.2500, L501.2300, L500.3400 ####[facility] [address] [place], [address] MCH (RBC) [Entitic mass] 30.5 pg Normal 27.0-32.0 [facility] Comment on above: Performed By: #### L 100.0100, L501.5200, L500.2500, L501.2300, L500.3400 ####[facility] [address] [place], [address] MCHC (RBC) [Mass/Vol] 33.2 g/dL Normal 32-36 [facility] Comment on above: Performed By: #### L 100.0100, L501.5200, L500.2500, L501.2300, L500.3400 ####[facility] [address] [place], [address] MCV (RBC) [Entitic vol] 91.9 fL Normal 80-94 [facility] Comment on above: Performed By: #### L 100.0100, L501.5200, L500.2500, L501.2300, L500.3400 ####[facility] [address] [place], [address] Monocytes/100 WBC (Bld) 9.6 % Normal 0-10 [facility] Comment on above: Performed By: #### L 100.0100, L501.5200, L500.2500, L501.2300, L500.3400 ####[facility] [address] [place], [address] Neutrophils/100 WBC (Bld) 74.6 % High 47-70 [facility] Comment on above: Performed By: #### L 100.0100, L501.5200, L500.2500, L501.2300, L500.3400 ####[facility] [address] [place], [address] Nucleated RBC (Bld) [#/Vol] 0 10*3/uL Normal 0-5 [facility] Comment on above: Performed By: #### L 100.0100, L501.5200, L500.2500, L501.2300, L500.3400 ####[facility] [address] [place], [address] Platelet mean volume (Bld) [Entitic vol] 9.2 fL Normal 6.2-12.0 [facility] Comment on above: Performed By: #### L 100.0100, L501.5200, L500.2500, L501.2300, L500.3400 ####[facility] [address] [place], [address] Platelets (Bld) [#/Vol] 421 10*3/uL Normal 150-450 [facility] Comment on above: Performed By: #### L 100.0100, L501.5200, L500.2500, L501.2300, L500.3400 ####[facility] [address] [place], [address] RBC (Bld) [#/Vol] 2.85 10*6/uL Low 4.6-6.2 [facility] Comment on above: Performed By: #### L 100.0100, L501.5200, L500.2500, L501.2300, L500.3400 ####[facility] [address] [place], [address] RDW SD 46.8 fl High 35.1-43.9 [facility] Comment on above: Performed By: #### L 100.0100, L501.5200, L500.2500, L501.2300, L500.3400 ####[facility] [address] [place], [address] WBC (Bld) [#/Vol] 10.6 10*3/uL Normal 4.4-11.0 [facility] Comment on above: Performed By: #### L 100.0100, L501.5200, L500.2500, L501.2300, L500.3400 ####[facility] [address] [place], [place], [id number] Consultation - Surgicalon Consultation - Surgical Normal [facility] Liver Profileon 08-25-2024 Albumin [Mass/Vol] 3.1 g/dL Low 3.4-4.8 [facility] Comment on above: Performed By: #### L 100.0100, L501.5200, L500.2500, L501.2300, L500.3400 ####[facility] [address] [place], [place], [id number] ALK PHOS 100 U/L Normal 40-129 [facility] Comment on above: Performed By: #### L 100.0100, L501.5200, L500.2500, L501.2300, L500.3400 ####[facility] [address] [place], [address] ALT [Catalytic activity/Vol] 30 U/L Normal <=46 [facility] Comment on above: Performed By: #### L 100.0100, L501.5200, L500.2500, L501.2300, L500.3400 ####[facility] [address] [place], [address] AST [Catalytic activity/Vol] 41 U/L High <=37 [facility] Comment on above: Performed By: #### L 100.0100, L501.5200, L500.2500, L501.2300, L500.3400 ####[facility] [address] [place], [address] Bilirubin [Mass/Vol] 0.29 mg/dL Normal 0.00-1.30 [facility] Comment on above: Performed By: #### L 100.0100, L501.5200, L500.2500, L501.2300, L500.3400 ####[facility] [address] [place], [address] Bilirubin.direct [Mass/Vol] 0.17 mg/dL Normal 0.00-0.30 [facility] Comment on above: Performed By: #### L 100.0100, L501.5200, L500.2500, L501.2300, L500.3400 ####[facility] [address] [place], [address] Globulin (S) [Mass/Vol] 2.8 g/dL Normal 2.2-4.2 [facility] Comment on above: Performed By: #### L 100.0100, L501.5200, L500.2500, L501.2300, L500.3400 ####[facility] [address] [place], [address] T PROT 5.8 g/dL Low 5.9-8.4 [facility] Comment on above: Performed By: #### L 100.0100, L501.5200, L500.2500, L501.2300, L500.3400 ####[facility] [address] [place], [address] Magnesiumon 08-25-2024 Magnesium [Mass/Vol] 1.9 mg/dL Normal 1.5-2.2 [facility] Comment on above: Performed By: #### L 100.0100, L501.5200, L500.2500, L501.2300, L500.3400 ####[facility] [address] [place], [address] Phosphoruson 08-25-2024 Phosphate [Mass/Vol] 4.9 mg/dL High 2.7-4.5 [facility] Comment on above: Performed By: #### L 100.0100, L501.5200, L500.2500, L501.2300, L500.3400 ####[facility] [address] [place], [address] BRCon 08-24-2024 RC Normal [facility] Comment on above: Result Comment: [id number] ON RC TRANSFUSED 08/24/24 [id number] ON RC TRANSFUSED 08/24/24 1726 Performed By: #### B , [facility] ####[facility] [address] [place], [address] Basic Metabolic Profile (BMP )on 08-24-2024 BUN/CRE 5.1 RATIO Low 10-20 [facility] Comment on above: Performed By: #### L 500.2500, L100.0100 ####[facility] [address] [place], [address] Calcium [Mass/Vol] 8.2 mg/dL Normal 7.6-11.0 [facility] Comment on above: Performed By: #### L 500.2500, L100.0100 ####[facility] [address] [place], [address] Chloride [Moles/Vol] 101 mmol/L Normal 98-108 [facility] Comment on above: Performed By: #### L 500.2500, L100.0100 ####[facility] [address] [place], [address] CO2 [Moles/Vol] 14.1 mmol/L Low 21.0-32.0 [facility] Comment on above: Performed By: #### L 500.2500, L100.0100 ####[facility] [address] [place], [address] Creatinine [Mass/Vol] 5.82 mg/dL High 0.70-1.20 [facility] Comment on above: Performed By: #### L 500.2500, L100.0100 ####[facility] [address] [place], [address] ECRCL 13.52 ml/min Low 50-250 [facility] Comment on above: Performed By: #### L 500.2500, L100.0100 ####[facility] [address] [place], [address] GAP 19 High 5-15 [facility] Comment on above: Performed By: #### L 500.2500, L100.0100 ####[facility] [address] [place], [address] GFR/1.73 sq M.predicted among non-blacks MDRD (S/P/Bld) [Vol rate/Area] 10 mL/min/{1.73_m2} Low >60 [facility] Comment on above: Result Comment: mL/m in/1.73m2 CKD-EPI Creatinine Equation (2020) Performed By: #### L 500.2500, L100.0100 ####[facility] [address] [place], [address] Glucose [Mass/Vol] 154 mg/dL High 70-99 [facility] Comment on above: Performed By: #### L 500.2500, L100.0100 ####[facility] [address] [place], [address] Potassium [Moles/Vol] 5.3 mmol/L High 3.3-5.1 [facility] Comment on above: Result Comment: Hemo lysis present, Results??could be affected.?? Performed By: #### L 500.2500, L100.0100 ####[facility] [address] [place], [address] Sodium [Moles/Vol] 134 mmol/L Normal 133-145 [facility] Comment on above: Performed By: #### L 500.2500, L100.0100 ####[facility] [address] [place], [address] Urea nitrogen [Mass/Vol] 30 mg/dL High 4-19 [facility] Comment on above: Performed By: #### L 500.2500, L100.0100 ####[facility] [address] [place], [address] Bedside Glucoseon 08-24-2024 FINGERSTICK GLU 290 mg/dL High 74-106 [facility] Comment on above: Result Comment: ANABELLE GEMENT OF PATIENT CARE PER NURSING PROTOCOL Performed By: #### L 501.080 ####[facility] [address] [place], [address] FINGERSTICK GLU 186 mg/dL High 74-106 [facility] Comment on above: Result Comment: ANABELLE GEMENT OF PATIENT CARE PER NURSING PROTOCOL Performed By: #### L 501.080 ####[facility] [address] [place], [address] FINGERSTICK GLU 153 mg/dL High 74-106 [facility] Comment on above: Result Comment: ANABELLE GEMENT OF PATIENT CARE PER NURSING PROTOCOL Performed By: #### L 501.080 ####[facility] [address] [place], [address] CBC W/Diff, Automatedon 04-2 Absolute Lymph 1.53 X10 3/uL Normal 0.83-4.51 [facility] Comment on above: Order Comment: REDRA W. PREVIOUS SPECIMEN REJECTED DUE TOQNS. 08/24/24 0709 Robert Hylton.UTO X2 PHLEBS-INFORMED NURSE ELAINA-PER NURSE MAY TRY DRAWINGTHIS SPECIMEN FROM PT DIALYSIS [place] Performed By: #### L 100.0100 ####[facility] [address] [place], [place], [id number]) Absolute Neut 10.7 X10 3/uL High 2.0-7.7 [facility] Comment on above: Order Comment: REDRA W. PREVIOUS SPECIMEN REJECTED DUE TOQNS. 08/24/24 0709 Robert Hardinzano.UTO X2 PHLEBS-INFORMED NURSE ELAINA-PER NURSE MAY TRY DRAWINGTHIS SPECIMEN FROM PT DIALYSIS [place] Performed By: #### L 100.0100 ####[facility] [address] [place], [place], [id number]) Basophils/100 WBC (Bld) 0.4 % Normal 0-1 [facility] Comment on above: Order Comment: REDRA W. PREVIOUS SPECIMEN REJECTED DUE TOQNS. 08/24/24 0709 Robert Hardinzano.UTO X2 PHLEBS-INFORMED NURSE ELAINA-PER NURSE MAY TRY DRAWINGTHIS SPECIMEN FROM PT DIALYSIS [place] Performed By: #### L 100.0100 ####[facility] [address] [place], [address] Eosinophils/100 WBC (Bld) 1.0 % Normal 0-5 [facility] Comment on above: Order Comment: REDRA W. PREVIOUS SPECIMEN REJECTED DUE TOQNS. 08/24/24 0709 Robert Hylton.UTO X2 PHLEBS-INFORMED NURSE ELAINA-PER NURSE MAY TRY DRAWINGTHIS SPECIMEN FROM PT DIALYSIS [place] Performed By: #### L 100.0100 ####[facility] [address] [place], [address] Erythrocyte distribution width (RBC) [Ratio] 14.2 % Normal 11.6-14.6 [facility] Comment on above: Order Comment: REDRA W. PREVIOUS SPECIMEN REJECTED DUE TOQNS. 08/24/24 0709 Robert Hylton.UTO X2 PHLEBS-INFORMED NURSE ELAINA-PER NURSE MAY TRY DRAWINGTHIS SPECIMEN FROM PT DIALYSIS [place] Performed By: #### L 100.0100 ####[facility] [address] [place], [address] Hematocrit (Bld) [Volume fraction] 21.0 % Low 40-54 [facility] Comment on above: Order Comment: MARTINA W. PREVIOUS SPECIMEN REJECTED DUE TOQNS. 08/24/24 0709 Robert Hylton.UTO X2 PHLEBS-INFORMED NURSE ELAINA-PER NURSE MAY TRY DRAWINGTHIS SPECIMEN FROM PT DIALYSIS [place] Performed By: #### L 100.0100 ####[facility] [address] [place], [address] Hemoglobin (Bld) [Mass/Vol] 7.0 g/dL Low 13.0-16.5 [facility] Comment on above: Order Comment: RED W. PREVIOUS SPECIMEN REJECTED DUE TOQNS. 08/24/24 0709 [facility] PHLEBS-INFORMED NURSE ELAINA-PER NURSE MAY TRY DRAWINGTHIS SPECIMEN FROM PT DIALYSIS [place] Performed By: #### L 100.0100 ####[facility] [address] [place], [address] IG% 1.200 High 0.0-0.9 [facility] Comment on above: Order Comment: MARTINA W. PREVIOUS SPECIMEN REJECTED DUE TOQNS. 08/24/24 0709 Robert Hylton.UTO X2 PHLEBS-INFORMED NURSE ELAINA-PER NURSE MAY TRY DRAWINGTHIS SPECIMEN FROM PT DIALYSIS [place] Result Comment: IG% - Immature Granulocytes (promyelocytes, myelocytes andmetamyelocytes) > 1% indicates that a LEFT SHIFT is Present. Performed By: #### L 100.0100 ####[facility] [address] [place], [address] Lymphocytes/100 WBC (Bld) 11.5 % Low 19-41 [facility] Comment on above: Order Comment: REDRA W. PREVIOUS SPECIMEN REJECTED DUE TOQNS. 08/24/24 0709 Robert Hylton.UTO X2 PHLEBS-INFORMED NURSE ELAINA-PER NURSE MAY TRY DRAWINGTHIS SPECIMEN FROM PT DIALYSIS [place] Performed By: #### L 100.0100 ####[facility] [address] [place], [address] MCH (RBC) [Entitic mass] 31.7 pg Normal 27.0-32.0 [facility] Comment on above: Order Comment: REDRA W. PREVIOUS SPECIMEN REJECTED DUE TOQNS. 08/24/24 0709 Robert Hylton.UTO X2 PHLEBS-INFORMED NURSE ELAINA-PER NURSE MAY TRY DRAWINGTHIS SPECIMEN FROM PT DIALYSIS [place] Performed By: #### L 100.0100 ####[facility] [address] [place], [address] MCHC (RBC) [Mass/Vol] 33.3 g/dL Normal 32-36 [facility] Comment on above: Order Comment: REDRA W. PREVIOUS SPECIMEN REJECTED DUE TOQNS. 08/24/24 0709 Robert Hylton.UTO X2 PHLEBS-INFORMED NURSE ELAINA-PER NURSE MAY TRY DRAWINGTHIS SPECIMEN FROM PT DIALYSIS [place] Performed By: #### L 100.0100 ####[facility] [address] [place], [address] MCV (RBC) [Entitic vol] 95.0 fL High 80-94 [facility] Comment on above: Order Comment: REDRA W. PREVIOUS SPECIMEN REJECTED DUE TOQNS. 08/24/24 0709 Robert Hylton.UTO X2 PHLEBS-INFORMED NURSE ELAINA-PER NURSE MAY TRY DRAWINGTHIS SPECIMEN FROM PT DIALYSIS [place] Performed By: #### L 100.0100 ####[facility] [address] [place], [address] Monocytes/100 WBC (Bld) 6.1 % Normal 0-10 [facility] Comment on above: Order Comment: REDRA W. PREVIOUS SPECIMEN REJECTED DUE TOQNS. 08/24/[address] [place] [address].UTO X2 PHLEBS-INFORMED NURSE ELAINA-PER NURSE MAY TRY DRAWINGTHIS SPECIMEN FROM PT DIALYSIS [place] Performed By: #### L 100.0100 ####[facility] [address] [place], [address] Neutrophils/100 WBC (Bld) 79.8 % High 47-70 [facility] Comment on above: Order Comment: REDRA W. PREVIOUS SPECIMEN REJECTED DUE TOQNS. 08/24/[address] [place], [place] [address]zano.UTO X2 PHLEBS-INFORMED NURSE ELAINA-PER NURSE MAY TRY DRAWINGTHIS SPECIMEN FROM PT DIALYSIS [place] Performed By: #### L 100.0100 ####[facility] [address] [place], [address] Nucleated RBC (Bld) [#/Vol] 0 10*3/uL Normal 0-5 [facility] Comment on above: Order Comment: RED W. PREVIOUS SPECIMEN REJECTED DUE TOQNS. 08/24/[address] [place] [address].UTO X2 PHLEBS-INFORMED NURSE ELAINA-PER NURSE MAY TRY DRAWINGTHIS SPECIMEN FROM PT DIALYSIS [place] Performed By: #### L 100.0100 ####[facility] [address] [place], [address] Platelet mean volume (Bld) [Entitic vol] 9.1 fL Normal 6.2-12.0 [facility] Comment on above: Order Comment: REDRA W. PREVIOUS SPECIMEN REJECTED DUE TOQNS. 08/24/24 07 [facility] PHLEBS-INFORMED NURSE ELAINA-PER NURSE MAY TRY DRAWINGTHIS SPECIMEN FROM PT DIALYSIS [place] Performed By: #### L 100.0100 ####[facility] [address] [place], [address] Platelets (Bld) [#/Vol] 460 10*3/uL High 150-450 [facility] Comment on above: Order Comment: REDRA W. PREVIOUS SPECIMEN REJECTED DUE TOQNS. 08/24/24 0709 [facility]2 PHLEBS-INFORMED NURSE ELAINA-PER NURSE MAY TRY DRAWINGTHIS SPECIMEN FROM PT DIALYSIS [place] Performed By: #### L 100.0100 ####[facility] [address] [place], [address] RBC (Bld) [#/Vol] 2.21 10*6/uL Low 4.6-6.2 [facility] Comment on above: Order Comment: REDRA W. PREVIOUS SPECIMEN REJECTED DUE TOQNS. 08/24/24 0709 Robert Hylton.UTO X2 PHLEBS-INFORMED NURSE ELAINA-PER NURSE MAY TRY DRAWINGTHIS SPECIMEN FROM PT DIALYSIS [place] Performed By: #### L 100.0100 ####[facility] [address] [place], [address] RDW SD 46.3 fl High 35.1-43.9 [facility] Comment on above: Order Comment: RED W. PREVIOUS SPECIMEN REJECTED DUE TOQNS. 08/24/24 0709 Robert Hylton.UTO X2 PHLEBS-INFORMED NURSE ELAINA-PER NURSE MAY TRY DRAWINGTHIS SPECIMEN FROM PT DIALYSIS [place] Performed By: #### L 100.0100 ####[facility] [address] [place], [address] WBC (Bld) [#/Vol] 13.4 10*3/uL High 4.4-11.0 [facility] Comment on above: Order Comment: REDRA W. PREVIOUS SPECIMEN REJECTED DUE TOQNS. 08/24/24 07 Robert Hylton.UTO X2 PHLEBS-INFORMED NURSE ELAINA-PER NURSE MAY TRY DRAWINGTHIS SPECIMEN FROM PT DIALYSIS [place] Performed By: #### L 100.0100 ####[facility] [address] [place], [address] Absolute Neut Normal 2.0-7.7 [facility] Comment on above: Result Comment: This specimen has been REJECTED due to Laboratory criteria:Quanity Not Sufficient.LAB has been notified of need of recollection.08/24/24 0709 Robert Hylton Performed By: #### L 500.2500, L100.0100 ####[facility] [address] [place], [address] HCT Normal 40-54 [facility] Comment on above: Result Comment: This specimen has been REJECTED due to Laboratory criteria:Quanity Not Sufficient.LAB has been notified of need of recollection.08/24/24708 Robert Hylton Performed By: #### L 500.2500, L100.0100 ####[facility] [address] [place], [address] HGB Normal 13.0-16.5 [facility] Comment on above: Result Comment: This specimen has been REJECTED due to Laboratory criteria:Quanity Not Sufficient.LAB has been notified of need of recollection.08/24/24708 Robert Hylton Performed By: #### L 500.2500, L100.0100 ####[facility] [address] [place], [address] MCH Normal 27.0-32.0 [facility] Comment on above: Result Comment: This specimen has been REJECTED due to Laboratory criteria:Quanity Not Sufficient.LAB has been notified of need of recollection.08/24/24708 Robert Hylton Performed By: #### L 500.2500, L100.0100 ####[facility] [address] [place], [address] MCHC Normal 32-36 [facility] Comment on above: Result Comment: This specimen has been REJECTED due to Laboratory criteria:Quanity Not Sufficient.LAB has been notified of need of recollection.08/24/24708 Robert Hylton Performed By: #### L 500.2500, L100.0100 ####[facility] [address] [place], [address] MCV Normal 80-94 [facility] Comment on above: Result Comment: This specimen has been REJECTED due to Laboratory criteria:Quanity Not Sufficient.LAB has been notified of need of recollection.04/28/25 0709 Robert Hylton Performed By: #### L 500.2500, L100.0100 ####[facility] [address] [place], [address] NEUT% Normal 47-70 [facility] Comment on above: Result Comment: This specimen has been REJECTED due to Laboratory criteria:Quanity Not Sufficient.LAB has been notified of need of recollection.08/24/24708 Robert Hylton Performed By: #### L 500.2500, L100.0100 ####[facility] [address] [place], [address] PLT Normal 150-450 [facility] Comment on above: Result Comment: This specimen has been REJECTED due to Laboratory criteria:Quanity Not Sufficient.LAB has been notified of need of recollection.08/24/24708 Robert Hylton Performed By: #### L 500.2500, L100.0100 ####[facility] [address] [place], [address] RBC Normal 4.6-6.2 [facility] Comment on above: Result Comment: This specimen has been REJECTED due to Laboratory criteria:Quanity Not Sufficient.LAB has been notified of need of recollection.08/24/24708 Robert Hylton Performed By: #### L 500.2500, L100.0100 ####[facility] [address] [place], [address] RDW CV Normal 11.6-14.6 [facility] Comment on above: Result Comment: This specimen has been REJECTED due to Laboratory criteria:Quanity Not Sufficient.LAB has been notified of need of recollection.08/24/24708 Robert Hylton Performed By: #### L 500.2500, L100.0100 ####[facility] [address] [place], [address] RDW SD Normal 35.1-43.9 [facility] Comment on above: Result Comment: This specimen has been REJECTED due to Laboratory criteria:Quanity Not Sufficient.LAB has been notified of need of recollection.08/24/24 0709 Robert Hardinzano Performed By: #### L 500.2500, L100.0100 ####[facility] [address] [place], [address] WBC Normal 4.4-11.0 [facility] Comment on above: Result Comment: This specimen has been REJECTED due to Laboratory criteria:Quanity Not Sufficient.LAB has been notified of need of recollection.08/24/24 0709 Robert Hardinzano Performed By: #### L 500.2500, L100.0100 ####[facility] [address] [place], [address] Type AND Screenon 08-24-2024 ABO and Rh group Nom (Bld) Blood group O Rh(D) negative Normal [facility] Comment on above: Order Comment: CMV N EG? NNumber of units to transfuse: 1Is pt's Hgb is = to 7.0 mg/dl or Hct </= 21%? YReason for Ordering Blood: ChronicAre the blood/blood products to be transfused? YIs the patient having/had surgery? NWsharonda Santacruz Performed By: #### B , [facility] ####[facility] [address] [place], [address] Bedside Glucoseon 08-23-2024 FINGERSTICK GLU 134 mg/dL High 74-106 [facility] Comment on above: Result Comment: ANABELLE GEMENT OF PATIENT CARE PER NURSING PROTOCOL Performed By: #### L 501.080 ####[facility] [address] [place], [address] FINGERSTICK GLU 119 mg/dL High 74-106 [facility] Comment on above: Result Comment: ANABELLE GEMENT OF PATIENT CARE PER NURSING PROTOCOL Performed By: #### L 501.080 ####[facility] [address] [place], [address] FINGERSTICK GLU 241 mg/dL High 74-106 [facility] Comment on above: Result Comment: ANABELLE GEMENT OF PATIENT CARE PER NURSING PROTOCOL Performed By: #### L 501.080 ####[facility] [address] [place], [address] FINGERSTICK GLU 146 mg/dL High [facility]106 [facility] Comment on above: Result Comment: ANABELLE GEMENT OF PATIENT CARE PER NURSING PROTOCOL Performed By: #### L 501.080 ####[facility] [address] [place], [address] Bedside Glucoseon 08-22-2024 FINGERSTICK GLU 88 mg/dL Normal -[address] [place] [address] Comment on above: Result Comment: ANABELLE GEMENT OF PATIENT CARE PER NURSING PROTOCOL Performed By: #### L 501.080 ####[facility] [address] [place], [address] FINGERSTICK GLU 132 mg/dL High -[address] [place] [address] Comment on above: Result Comment: ANABELLE GEMENT OF PATIENT CARE PER NURSING PROTOCOL Performed By: #### L 501.080 ####[facility] [address] [place], [address] FINGERSTICK GLU 169 mg/dL High [facility]106 [facility] Comment on above: Result Comment: ANABELLE GEMENT OF PATIENT CARE PER NURSING PROTOCOL Performed By: #### L 501.080 ####[facility] [address] [place], [address] FINGERSTICK GLU 122 mg/dL High -[address] [place] [address] Comment on above: Result Comment: ANABELLE GEMENT OF PATIENT CARE PER NURSING PROTOCOL Performed By: #### L 501.080 ####[facility] [address] [place], [address] HH, Hemoglobin AND Hematocri ton 08-22-2024 Hematocrit (Bld) [Volume fraction] 26.4 % Low 40-54 [facility] Comment on above: Order Comment: LATE DUE TO MULTIPLE ATEMPTS Performed By: #### L 100.0600 ####[facility] [address] [place], [address] Hemoglobin (Bld) [Mass/Vol] 8.8 g/dL Low 13.0-16.5 [facility] Comment on above: Order Comment: LATE DUE TO MULTIPLE ATEMPTS Performed By: #### L 100.0600 ####[facility] [address] [place], [address] HCT Normal 40-54 [facility] Comment on above: Result Comment: YANICK HERNANDEZ, SPOKE WITH AIRAM Performed By: #### L 100.0600 ####[facility] [address] [place], [address] HGB Normal 13.0-16.5 [facility] Comment on above: Result Comment: YANICK HERNANDEZ, SPOKE WITH AIRAM Performed By: #### L 100.0600 ####[facility] [address] [place], [address] BRCon 08-21-2024 RC Normal [facility] Comment on above: Result Comment: [id number] ON RC TRANSFUSED 08/21/24 1107 Performed By: #### B , [facility] ####[facility] [address] [place], [address] Bedside Glucoseon 08-21-2024 FINGERSTICK GLU 69 mg/dL Low 74-106 [facility] Comment on above: Result Comment: ANABELLE GEMENT OF PATIENT CARE PER NURSING PROTOCOL Performed By: #### L 501.080 ####[facility] [address] [place], [address] FINGERSTICK GLU 87 mg/dL Normal 74-106 [facility] Comment on above: Result Comment: ANABELLE GEMENT OF PATIENT CARE PER NURSING PROTOCOL Performed By: #### L 501.080 ####[facility] [address] [place], [address] FINGERSTICK GLU 65 mg/dL Low 74-106 [facility] Comment on above: Result Comment: ANABELLE GEMENT OF PATIENT CARE PER NURSING PROTOCOL Performed By: #### L 501.080 ####[facility] [address] [place], [address] FINGERSTICK GLU 87 mg/dL Normal 74-106 [facility] Comment on above: Result Comment: ANABELLE GEMENT OF PATIENT CARE PER NURSING PROTOCOL Performed By: #### L 501.080 ####[facility] [address] [place], [address] FINGERSTICK GLU 149 mg/dL High 74-106 [facility] Comment on above: Result Comment: ANABELLE GEMENT OF PATIENT CARE PER NURSING PROTOCOL Performed By: #### L 501.080 ####[facility] [address] [place], [address] FINGERSTICK GLU 76 mg/dL Normal 74-106 [facility] Comment on above: Result Comment: ANABELLE GEMENT OF PATIENT CARE PER NURSING PROTOCOL Performed By: #### L 501.080 ####[facility] [address] [place], [address] FINGERSTICK GLU 100 mg/dL Normal 74-106 [facility] Comment on above: Result Comment: ANABELLE GEMENT OF PATIENT CARE PER NURSING PROTOCOL Performed By: #### L 501.080 ####[facility] [address] [place], [address] FINGERSTICK GLU 60 mg/dL Low 74-106 [facility] Comment on above: Result Comment: ANABELLE GEMENT OF PATIENT CARE PER NURSING PROTOCOL Performed By: #### L 501.080 ####[facility] [address] [place], [address] CBC W/Diff, Automatedon 04-2 SMEAR COMMENT SCANNED Normal [facility] Comment on above: Performed By: #### L 100.0100 ####[facility] [address] [place], [address] HH, Hemoglobin AND Hematocri ton 08-21-2024 Hematocrit (Bld) [Volume fraction] 21.3 % Low 40-54 [facility] Comment on above: Order Comment: Comme nts: Post Transfusion Performed By: #### L 100.0600 ####[facility] [address] [place], [address] Hemoglobin (Bld) [Mass/Vol] 7.0 g/dL Low 13.0-16.5 [facility] Comment on above: Order Comment: Comme nts: Post Transfusion Performed By: #### L 100.0600 ####[facility] [address] [place], [address] Renal Profileon 08-21-2024 Albumin [Mass/Vol] 2.8 g/dL Low 3.4-4.8 [facility] Comment on above: Performed By: #### L 500.3600 ####[facility] [address] [place], [address] BUN/CRE 6.3 RATIO Low 10-20 [facility] Comment on above: Performed By: #### L 500.3600 ####[facility] [address] [place], [address] Calcium [Mass/Vol] 8.0 mg/dL Normal 7.6-11.0 [facility] Comment on above: Performed By: #### L 500.3600 ####[facility] [address] [place], [address] Chloride [Moles/Vol] 106 mmol/L Normal 98-108 [facility] Comment on above: Performed By: #### L 500.3600 ####[facility] [address] [place], [address] CO2 [Moles/Vol] 23.8 mmol/L Normal 21.0-32.0 [facility] Comment on above: Performed By: #### L 500.3600 ####[facility] [address] [place], [address] Creatinine [Mass/Vol] 3.44 mg/dL High 0.70-1.20 [facility] Comment on above: Performed By: #### L 500.3600 ####[facility] [address] [place], [address] ECRCL 22.87 ml/min Low 50-250 [facility] Comment on above: Performed By: #### L 500.3600 ####[facility] [address] [place], [address] GAP 12 Normal 5-15 [facility] Comment on above: Performed By: #### L 500.3600 ####[facility] [address] [place], [address] GFR/1.73 sq M.predicted among non-blacks MDRD (S/P/Bld) [Vol rate/Area] 19 mL/min/{1.73_m2} Low >60 [facility] Comment on above: Result Comment: mL/m in/1.73m2 CKD-EPI Creatinine Equation (2020) Performed By: #### L 500.3600 ####[facility] [address] [place], [address] Glucose [Mass/Vol] 103 mg/dL High 70-99 [facility] Comment on above: Performed By: #### L 500.3600 ####[facility] [address] [place], [address] Phosphate [Mass/Vol] 4.0 mg/dL Normal 2.7-4.5 [facility] Comment on above: Performed By: #### L 500.3600 ####[facility] [address] [place], [address] Potassium [Moles/Vol] 4.1 mmol/L Normal 3.3-5.1 [facility] Comment on above: Performed By: #### L 500.3600 ####[facility] [address] [place], [address] Sodium [Moles/Vol] 142 mmol/L Normal 133-145 [facility] Comment on above: Performed By: #### L 500.3600 ####[facility] [address] [place], [address] Urea nitrogen [Mass/Vol] 22 mg/dL High 4-19 [facility] Comment on above: Performed By: #### L 500.3600 ####[facility] [address] [place], [address] Type AND Screenon 08-21-2024 ABO and Rh group Nom (Bld) Blood group O Rh(D) negative Normal [facility] Comment on above: Order Comment: CMV N EG? NNumber of units to transfuse: 1Reason for Ordering Blood: AcuteAre the blood/blood products to be transfused? YIs the patient having/had surgery? NWsharonda Santacruz Performed By: #### B , [facility] ####[facility] [address] [place], [address] Bedside Glucoseon 08-20-2024 FINGERSTICK GLU 76 mg/dL Normal 74-106 [facility] Comment on above: Result Comment: ANABELLE GEMENT OF PATIENT CARE PER NURSING PROTOCOL Performed By: #### L 501.080 ####[facility] [address] [place], [address] FINGERSTICK GLU 145 mg/dL High 74-106 [facility] Comment on above: Result Comment: ANABELLE GEMENT OF PATIENT CARE PER NURSING PROTOCOL Performed By: #### L 501.080 ####[facility] [address] [place], [address] FINGERSTICK GLU 163 mg/dL High 74-106 [facility] Comment on above: Result Comment: ANABELLE GEMENT OF PATIENT CARE PER NURSING PROTOCOL Performed By: #### L 501.080 ####[facility] [address] [place], [address] FINGERSTICK GLU 162 mg/dL High 74-106 [facility] Comment on above: Result Comment: ANABELLE GEMENT OF PATIENT CARE PER NURSING PROTOCOL Performed By: #### L 501.080 ####[facility] [address] [place], [address] Magnesiumon 08-20-2024 Magnesium [Mass/Vol] 1.8 mg/dL Normal 1.5-2.2 [facility] Comment on above: Performed By: #### L 501.5200, L500.3600 ####[facility] [address] [place], [address] Magnesium [Mass/Vol] 1.8 mg/dL Normal 1.5-2.2 [facility] Comment on above: Performed By: #### L 500.3600, L501.5200 ####[facility] [address] [place], [address] Renal Profileon 08-20-2024 Albumin [Mass/Vol] 2.4 g/dL Low 3.4-4.8 [facility] Comment on above: Performed By: #### L 501.5200, L500.3600 ####[facility] [address] [place], [address] BUN/CRE 8.9 RATIO Low 10-20 [facility] Comment on above: Performed By: #### L 501.5200, L500.3600 ####[facility] [address] [place], [address] Calcium [Mass/Vol] 8.1 mg/dL Normal 7.6-11.0 [facility] Comment on above: Performed By: #### L 501.5200, L500.3600 ####[facility] [address] [place], [address] Chloride [Moles/Vol] 103 mmol/L Normal 98-108 [facility] Comment on above: Performed By: #### L 501.5200, L500.3600 ####[facility] [address] [place], [address] CO2 [Moles/Vol] 23.3 mmol/L Normal 21.0-32.0 [facility] Comment on above: Performed By: #### L 501.5200, L500.3600 ####[facility] [address] [place], [address] Creatinine [Mass/Vol] 2.43 mg/dL High 0.70-1.20 [facility] Comment on above: Performed By: #### L 501.5200, L500.3600 ####[facility] [address] [place], [address] ECRCL 35.00 ml/min Low 50-250 [facility] Comment on above: Performed By: #### L 501.5200, L500.3600 ####[facility] [address] [place], [address] GAP 11 Normal 5-15 [facility] Comment on above: Performed By: #### L 501.5200, L500.3600 ####[facility] [address] [place], [address] GFR/1.73 sq M.predicted among non-blacks MDRD (S/P/Bld) [Vol rate/Area] 28 mL/min/{1.73_m2} Low >60 [facility] Comment on above: Result Comment: mL/m in/1.73m2 CKD-EPI Creatinine Equation (2020) Performed By: #### L 501.5200, L500.3600 ####[facility] [address] [place], [address] Glucose [Mass/Vol] 190 mg/dL High 70-99 [facility] Comment on above: Performed By: #### L 501.5200, L500.3600 ####[facility] [address] [place], [address] Phosphate [Mass/Vol] 2.9 mg/dL Normal 2.7-4.5 [facility] Comment on above: Performed By: #### L 501.5200, L500.3600 ####[facility] [address] [place], [address] Potassium [Moles/Vol] 4.2 mmol/L Normal 3.3-5.1 [facility] Comment on above: Performed By: #### L 501.5200, L500.3600 ####[facility] [address] [place], [address] Sodium [Moles/Vol] 137 mmol/L Normal 133-145 [facility] Comment on above: Performed By: #### L 501.5200, L500.3600 ####[facility] [address] [place], [address] Urea nitrogen [Mass/Vol] 22 mg/dL High 4-19 [facility] Comment on above: Performed By: #### L 501.5200, L500.3600 ####[facility] [address] [place], [place], [address] Albumin [Mass/Vol] 3.1 g/dL Low 3.4-4.8 [facility] Comment on above: Performed By: #### L 500.3600, L501.5200 ####[facility] [address] [place], [address] BUN/CRE 8.2 RATIO Low 10-20 [facility] Comment on above: Result Comment: AMENDED REPORT 08/20/24 0109 BUN/CRE previously reported as: 8.2 L RATIO Performed By: #### L 500.3600, L501.5200 ####[facility] [address] [place], [address] Calcium [Mass/Vol] 7.9 mg/dL Normal 7.6-11.0 [facility] Comment on above: Performed By: #### L 500.3600, L501.5200 ####[facility] [address] [place], [address] Chloride [Moles/Vol] 105 mmol/L Normal 98-108 [facility] Comment on above: Performed By: #### L 500.3600, L501.5200 ####[facility] [address] [place], [address] CO2 [Moles/Vol] 22.3 mmol/L Normal 21.0-32.0 [facility] Comment on above: Performed By: #### L 500.3600, L501.5200 ####[facility] [address] [place], [address] Creatinine [Mass/Vol] 2.80 mg/dL High 0.70-1.20 [facility] Comment on above: Performed By: #### L 500.3600, L501.5200 ####[facility] [address] [place], [address] ECRCL 31.17 ml/min Low 50-250 [facility] Comment on above: Performed By: #### L 500.3600, L501.5200 ####[facility] [address] [place], [address] GAP 12 Normal 5-15 [facility] Comment on above: Performed By: #### L 500.3600, L501.5200 ####[facility] [address] [place], [address] GFR/1.73 sq M.predicted among non-blacks MDRD (S/P/Bld) [Vol rate/Area] 24 mL/min/{1.73_m2} Low >60 [facility] Comment on above: Result Comment: mL/m in/1.73m2 CKD-EPI Creatinine Equation (2020) Performed By: #### L 500.3600, L501.5200 ####[facility] [address] [place], [address] Glucose [Mass/Vol] 225 mg/dL High 70-99 [facility] Comment on above: Performed By: #### L 500.3600, L501.5200 ####[facility] [address] [place], [address] Phosphate [Mass/Vol] 3.6 mg/dL Normal 2.7-4.5 [facility] Comment on above: Performed By: #### L 500.3600, L501.5200 ####[facility] [address] [place], [address] Potassium [Moles/Vol] 4.0 mmol/L Normal 3.3-5.1 [facility] Comment on above: Performed By: #### L 500.3600, L501.5200 ####[facility] [address] [place], [address] Sodium [Moles/Vol] 139 mmol/L Normal 133-145 [facility] Comment on above: Performed By: #### L 500.3600, L501.5200 ####[facility] [address] [place], [address] Urea nitrogen [Mass/Vol] 23 mg/dL High 4-19 [facility] Comment on above: Performed By: #### L 500.3600, L501.5200 ####[facility] [address] [place], [address] Bedside Glucoseon 08-19-2024 FINGERSTICK GLU 179 mg/dL High -106 [facility] Comment on above: Result Comment: ANABELLE GEMENT OF PATIENT CARE PER NURSING PROTOCOL Performed By: #### L 501.080 ####[facility] [address] [place], [address] FINGERSTICK GLU 180 mg/dL High -106 [facility] Comment on above: Result Comment: ANABELLE GEMENT OF PATIENT CARE PER NURSING PROTOCOL Performed By: #### L 501.080 ####[facility] [address] [place], [address] FINGERSTICK GLU 188 mg/dL High [address] [place] [address] Comment on above: Result Comment: ANABELLE GEMENT OF PATIENT CARE PER NURSING PROTOCOL Performed By: #### L 501.080 ####[facility] [address] [place], [address] FINGERSTICK GLU 184 mg/dL High [address] [place] [address] Comment on above: Result Comment: ANABELLE GEMENT OF PATIENT CARE PER NURSING PROTOCOL Performed By: #### L 501.080 ####[facility] [address] [place], [address] CBC W/Diff, Automatedon 07-29 Absolute Lymph 1.24 X10 3/uL Normal 0.83-4.51 [facility] Comment on above: Performed By: #### L 100.0100 ####[facility] [address] [place], [address] Absolute Neut 11.1 X10 3/uL High 2.0-7.7 [facility] Comment on above: Performed By: #### L 100.0100 ####[facility] [address] [place], [address] Basophils/100 WBC (Bld) 0.4 % Normal 0-1 [facility] Comment on above: Performed By: #### L 100.0100 ####[facility] [address] [place], [address] Eosinophils/100 WBC (Bld) 1.6 % Normal 0-5 [facility] Comment on above: Performed By: #### L 100.0100 ####[facility] [address] [place], [address] Erythrocyte distribution width (RBC) [Ratio] 14.6 % Normal 11.6-14.6 [facility] Comment on above: Performed By: #### L 100.0100 ####[facility] [address] [place], [address] Hematocrit (Bld) [Volume fraction] 24.8 % Low 40-54 [facility] Comment on above: Performed By: #### L 100.0100 ####[facility] [address] [place], [address] Hemoglobin (Bld) [Mass/Vol] 8.2 g/dL Low 13.0-16.5 [facility] Comment on above: Performed By: #### L 100.0100 ####[facility] [address] [place], [address] IG% 1.000 High 0.0-0.9 [facility] Comment on above: Result Comment: IG% - Immature Granulocytes (promyelocytes, myelocytes andmetamyelocytes) > 1% indicates that a LEFT SHIFT is Present. Performed By: #### L 100.0100 ####[facility] [address] [place], [address] Lymphocytes/100 WBC (Bld) 8.9 % Low 19-41 [facility] Comment on above: Performed By: #### L 100.0100 ####[facility] [address] [place], [address] MCH (RBC) [Entitic mass] 30.8 pg Normal 27.0-32.0 [facility] Comment on above: Performed By: #### L 100.0100 ####[facility] [address] [place], [address] MCHC (RBC) [Mass/Vol] 33.1 g/dL Normal 32-36 [facility] Comment on above: Performed By: #### L 100.0100 ####[facility] [address] [place], [address] MCV (RBC) [Entitic vol] 93.2 fL Normal 80-94 [facility] Comment on above: Performed By: #### L 100.0100 ####[facility] [address] [place], [address] Monocytes/100 WBC (Bld) 8.9 % Normal 0-10 [facility] Comment on above: Performed By: #### L 100.0100 ####[facility] [address] [place], [address] Neutrophils/100 WBC (Bld) 79.2 % High 47-70 [facility] Comment on above: Performed By: #### L 100.0100 ####[facility] [address] [place], [address] Nucleated RBC (Bld) [#/Vol] 0 10*3/uL Normal 0-5 [facility] Comment on above: Performed By: #### L 100.0100 ####[facility] [address] [place], [address] Platelet mean volume (Bld) [Entitic vol] 11.2 fL Normal 6.2-12.0 [facility] Comment on above: Performed By: #### L 100.0100 ####[facility] [address] [place], [address] Platelets (Bld) [#/Vol] 309 10*3/uL Normal 150-450 [facility] Comment on above: Performed By: #### L 100.0100 ####[facility] [address] [place], [address] RBC (Bld) [#/Vol] 2.66 10*6/uL Low 4.6-6.2 [facility] Comment on above: Performed By: #### L 100.0100 ####[facility] [address] [place], [address] RDW SD 49.6 fl High 35.1-43.9 [facility] Comment on above: Performed By: #### L 100.0100 ####[facility] [address] [place], [address] WBC (Bld) [#/Vol] 14.0 10*3/uL High 4.4-11.0 [facility] Comment on above: Performed By: #### L 100.0100 ####[facility] [address] [place], [address] Magnesiumon 08-19-2024 Magnesium [Mass/Vol] 1.8 mg/dL Normal 1.5-2.2 [facility] Comment on above: Performed By: #### L 501.5200, L500.3600 ####[facility] [address] [place], [address] Magnesium [Mass/Vol] 1.8 mg/dL Normal 1.5-2.2 [facility] Comment on above: Performed By: #### L 501.5200, L500.3600 ####[facility] [address] [place], [address] Renal Profileon 08-19-2024 Albumin [Mass/Vol] 2.5 g/dL Low 3.4-4.8 [facility] Comment on above: Performed By: #### L 501.5200, L500.3600 ####[facility] [address] [place], [address] BUN/CRE 8.5 RATIO Low 10-20 [facility] Comment on above: Performed By: #### L 501.5200, L500.3600 ####[facility] [address] [place], [address] Calcium [Mass/Vol] 8.3 mg/dL Normal 7.6-11.0 [facility] Comment on above: Performed By: #### L 501.5200, L500.3600 ####[facility] [address] [place], [address] Chloride [Moles/Vol] 103 mmol/L Normal 98-108 [facility] Comment on above: Performed By: #### L 501.5200, L500.3600 ####[facility] [address] [place], [address] CO2 [Moles/Vol] 22.3 mmol/L Normal 21.0-32.0 [facility] Comment on above: Performed By: #### L 501.5200, L500.3600 ####[facility] [address] [place], [address] Creatinine [Mass/Vol] 3.08 mg/dL High 0.70-1.20 [facility] Comment on above: Performed By: #### L 501.5200, L500.3600 ####[facility] [address] [place], [address] ECRCL 28.34 ml/min Low 50-250 [facility] Comment on above: Performed By: #### L 501.5200, L500.3600 ####[facility] [address] [place], [address] GAP 11 Normal 5-15 [facility] Comment on above: Performed By: #### L 501.5200, L500.3600 ####[facility] [address] [place], [address] GFR/1.73 sq M.predicted among non-blacks MDRD (S/P/Bld) [Vol rate/Area] 21 mL/min/{1.73_m2} Low >60 [facility] Comment on above: Result Comment: mL/m in/1.73m2 CKD-EPI Creatinine Equation (2020) Performed By: #### L 501.5200, L500.3600 ####[facility] [address] [place], [address] Glucose [Mass/Vol] 202 mg/dL High 70-99 [facility] Comment on above: Performed By: #### L 501.5200, L500.3600 ####[facility] [address] [place], [address] Phosphate [Mass/Vol] 2.3 mg/dL Low 2.7-4.5 [facility] Comment on above: Performed By: #### L 501.5200, L500.3600 ####[facility] [address] [place], [address] Potassium [Moles/Vol] 3.8 mmol/L Normal 3.3-5.1 [facility] Comment on above: Performed By: #### L 501.5200, L500.3600 ####[facility] [address] [place], [address] Sodium [Moles/Vol] 136 mmol/L Normal 133-145 [facility] Comment on above: Performed By: #### L 501.5200, L500.3600 ####[facility] [address] [place], [address] Urea nitrogen [Mass/Vol] 26 mg/dL High 4-19 [facility] Comment on above: Performed By: #### L 501.5200, L500.3600 ####[facility] [address] [place], [address] Albumin [Mass/Vol] 2.3 g/dL Low 3.4-4.8 [facility] Comment on above: Performed By: #### L 501.5200, L500.3600 ####[facility] [address] [place], [address] BUN/CRE 8.5 RATIO Low 10-20 [facility] Comment on above: Performed By: #### L 501.5200, L500.3600 ####[facility] [address] [place], [address] Calcium [Mass/Vol] 7.9 mg/dL Normal 7.6-11.0 [facility] Comment on above: Performed By: #### L 501.5200, L500.3600 ####[facility] [address] [place], [address] Chloride [Moles/Vol] 106 mmol/L Normal 98-108 [facility] Comment on above: Performed By: #### L 501.5200, L500.3600 ####[facility] [address] [place], [address] CO2 [Moles/Vol] 21.6 mmol/L Normal 21.0-32.0 [facility] Comment on above: Performed By: #### L 501.5200, L500.3600 ####[facility] [address] [place], [address] Creatinine [Mass/Vol] 3.66 mg/dL High 0.70-1.20 [facility] Comment on above: Performed By: #### L 501.5200, L500.3600 ####[facility] [address] [place], [address] ECRCL 23.85 ml/min Low 50-250 [facility] Comment on above: Performed By: #### L 501.5200, L500.3600 ####[facility] [address] [place], [address] GAP 11 Normal 5-15 [facility] Comment on above: Performed By: #### L 501.5200, L500.3600 ####[facility] [address] [place], [address] GFR/1.73 sq M.predicted among non-blacks MDRD (S/P/Bld) [Vol rate/Area] 17 mL/min/{1.73_m2} Low >60 [facility] Comment on above: Result Comment: mL/m in/1.73m2 CKD-EPI Creatinine Equation (2020) Performed By: #### L 501.5200, L500.3600 ####[facility] [address] [place], [address] Glucose [Mass/Vol] 204 mg/dL High 70-99 [facility] Comment on above: Performed By: #### L 501.5200, L500.3600 ####[facility] [address] [place], [address] Phosphate [Mass/Vol] 2.5 mg/dL Low 2.7-4.5 [facility] Comment on above: Performed By: #### L 501.5200, L500.3600 ####[facility] [address] [place], [address] Potassium [Moles/Vol] 3.9 mmol/L Normal 3.3-5.1 [facility] Comment on above: Performed By: #### L 501.5200, L500.3600 ####[facility] [address] [place], [address] Sodium [Moles/Vol] 139 mmol/L Normal 133-145 [facility] Comment on above: Performed By: #### L 501.5200, L500.3600 ####[facility] [address] [place], [address] Urea nitrogen [Mass/Vol] 31 mg/dL High 4-19 [facility] Comment on above: Performed By: #### L 501.5200, L500.3600 ####[facility] [address] [place], [address] Bedside Glucoseon 08-18-2024 FINGERSTICK GLU 178 mg/dL High 74-106 [facility] Comment on above: Result Comment: ANABELLE GEMENT OF PATIENT CARE PER NURSING PROTOCOL Performed By: #### L 501.080 ####[facility] [address] [place], [address] FINGERSTICK GLU 176 mg/dL High 74-106 [facility] Comment on above: Result Comment: ANABELLE GEMENT OF PATIENT CARE PER NURSING PROTOCOL Performed By: #### L 501.080 ####[facility] [address] [place], [address] FINGERSTICK GLU 186 mg/dL High 74-106 [facility] Comment on above: Result Comment: ANABELLE GEMENT OF PATIENT CARE PER NURSING PROTOCOL Performed By: #### L 501.080 ####[facility] [address] [place], [address] CBC-Complete Blood Cnt No Di ffon 08-18-2024 HCT Normal 40-54 [facility] Comment on above: Result Comment: Canc elled via OM: Duplicate Order Performed By: #### L 100.0500 ####[facility] [address] [place], [address] HGB Normal 13.0-16.5 [facility] Comment on above: Result Comment: Canc elled via OM: Duplicate Order Performed By: #### L 100.0500 ####[facility] [address] [place], [address] MCH Normal 27.0-32.0 [facility] Comment on above: Result Comment: Canc elled via OM: Duplicate Order Performed By: #### L 100.0500 ####[facility] [address] [place], [address] MCHC Normal 32-36 [facility] Comment on above: Result Comment: Canc elled via OM: Duplicate Order Performed By: #### L 100.0500 ####[facility] [address] [place], [address] MCV Normal 80-94 [facility] Comment on above: Result Comment: Canc elled via OM: Duplicate Order Performed By: #### L 100.0500 ####[facility] [address] [place], [address] PLT Normal 150-450 [facility] Comment on above: Result Comment: Canc elled via OM: Duplicate Order Performed By: #### L 100.0500 ####[facility] [address] [place], [address] RBC Normal 4.6-6.2 [facility] Comment on above: Result Comment: Canc elled via OM: Duplicate Order Performed By: #### L 100.0500 ####[facility] [address] [place], [address] RDW CV Normal 11.6-14.6 [facility] Comment on above: Result Comment: Canc elled via OM: Duplicate Order Performed By: #### L 100.0500 ####[facility] [address] [place], [address] RDW SD Normal 35.1-43.9 [facility] Comment on above: Result Comment: Canc elled via OM: Duplicate Order Performed By: #### L 100.0500 ####[facility] [address] [place], [address] WBC Normal 4.4-11.0 [facility] Comment on above: Result Comment: Canc elled via OM: Duplicate Order Performed By: #### L 100.0500 ####[facility] [address] [place], [address] Erythrocyte distribution width (RBC) [Ratio] 14.8 % High 11.6-14.6 [facility] Comment on above: Performed By: #### L 100.0500, L500.3600, L501.5200 ####[facility] [address] [place], [address] Hematocrit (Bld) [Volume fraction] 22.5 % Low 40-54 [facility] Comment on above: Performed By: #### L 100.0500, L500.3600, L501.5200 ####[facility] [address] [place], [address] Hemoglobin (Bld) [Mass/Vol] 7.6 g/dL Low 13.0-16.5 [facility] Comment on above: Performed By: #### L 100.0500, L500.3600, L501.5200 ####[facility] [address] [place], [address] MCH (RBC) [Entitic mass] 31.5 pg Normal 27.0-32.0 [facility] Comment on above: Performed By: #### L 100.0500, L500.3600, L501.5200 ####[facility] [address] [place], [address] MCHC (RBC) [Mass/Vol] 33.8 g/dL Normal 32-36 [facility] Comment on above: Performed By: #### L 100.0500, L500.3600, L501.5200 ####[facility] [address] [place], [address] MCV (RBC) [Entitic vol] 93.4 fL Normal 80-94 [facility] Comment on above: Performed By: #### L 100.0500, L500.3600, L501.5200 ####[facility] [address] [place], [address] Platelet mean volume (Bld) [Entitic vol] 11.6 fL Normal 6.2-12.0 [facility] Comment on above: Performed By: #### L 100.0500, L500.3600, L501.5200 ####[facility] [address] [place], [address] Platelets (Bld) [#/Vol] 237 10*3/uL Normal 150-450 [facility] Comment on above: Performed By: #### L 100.0500, L500.3600, L501.5200 ####[facility] [address] [place], [address] RBC (Bld) [#/Vol] 2.41 10*6/uL Low 4.6-6.2 [facility] Comment on above: Performed By: #### L 100.0500, L500.3600, L501.5200 ####[facility] [address] [place], [address] RDW SD 50.2 fl High 35.1-43.9 [facility] Comment on above: Performed By: #### L 100.0500, L500.3600, L501.5200 ####[facility] [address] [place], [address] WBC (Bld) [#/Vol] 12.5 10*3/uL High 4.4-11.0 [facility] Comment on above: Performed By: #### L 100.0500, L500.3600, L501.5200 ####[facility] [address] [place], [address] CXR for Line Placementon CXR for Line Placement Normal [facility] Magnesiumon 08-18-2024 Magnesium [Mass/Vol] 1.9 mg/dL Normal 1.5-2.2 [facility] Comment on above: Performed By: #### L 100.0500, L500.3600, L501.5200 ####[facility] [address] [place], [address] Procedure Reporton Procedure Report Normal [facility] Renal Profileon 08-18-2024 Albumin [Mass/Vol] 2.3 g/dL Low 3.4-4.8 [facility] Comment on above: Performed By: #### L 500.3600 ####[facility] [address] [place], [address] BUN/CRE 8.3 RATIO Low 10-20 [facility] Comment on above: Performed By: #### L 500.3600 ####[facility] [address] [place], [address] Calcium [Mass/Vol] 7.5 mg/dL Low 7.6-11.0 [facility] Comment on above: Performed By: #### L 500.3600 ####[facility] [address] [place], [address] Chloride [Moles/Vol] 109 mmol/L High 98-108 [facility] Comment on above: Performed By: #### L 500.3600 ####[facility] [address] [place], [address] CO2 [Moles/Vol] 19.9 mmol/L Low 21.0-32.0 [facility] Comment on above: Performed By: #### L 500.3600 ####[facility] [address] [place], [address] Creatinine [Mass/Vol] 5.46 mg/dL High 0.70-1.20 [facility] Comment on above: Performed By: #### L 500.3600 ####[facility] [address] [place], [address] ECRCL 15.96 ml/min Low 50-250 [facility] Comment on above: Performed By: #### L 500.3600 ####[facility] [address] [place], [address] GAP 12 Normal 5-15 [facility] Comment on above: Performed By: #### L 500.3600 ####[facility] [address] [place], [address] GFR/1.73 sq M.predicted among non-blacks MDRD (S/P/Bld) [Vol rate/Area] 11 mL/min/{1.73_m2} Low >60 [facility] Comment on above: Result Comment: mL/m in/1.73m2 CKD-EPI Creatinine Equation (2020) Performed By: #### L 500.3600 ####[facility] [address] [place], [address] Glucose [Mass/Vol] 190 mg/dL High 70-99 [facility] Comment on above: Performed By: #### L 500.3600 ####[facility] [address] [place], [address] Phosphate [Mass/Vol] 3.2 mg/dL Normal 2.7-4.5 [facility] Comment on above: Performed By: #### L 500.3600 ####[facility] [address] [place], [address] Potassium [Moles/Vol] 3.8 mmol/L Normal 3.3-5.1 [facility] Comment on above: Performed By: #### L 500.3600 ####[facility] [address] [place], [address] Sodium [Moles/Vol] 141 mmol/L Normal 133-145 [facility] Comment on above: Performed By: #### L 500.3600 ####[facility] [address] [place], [address] Urea nitrogen [Mass/Vol] 45 mg/dL High 4-19 [facility] Comment on above: Performed By: #### L 500.3600 ####[facility] [address] [place], [address] Albumin [Mass/Vol] 2.2 g/dL Low 3.4-4.8 [facility] Comment on above: Performed By: #### L 100.0500, L500.3600, L501.5200 ####[facility] [address] [place], [address] BUN/CRE 8.2 RATIO Low 10-20 [facility] Comment on above: Result Comment: AMENDED REPORT 08/18/24 0607 BUN/CRE previously reported as: 8.2 L RATIO Performed By: #### L 100.0500, L500.3600, L501.5200 ####[facility] [address] [place], [address] Calcium [Mass/Vol] 6.9 mg/dL Low 7.6-11.0 [facility] Comment on above: Performed By: #### L 100.0500, L500.3600, L501.5200 ####[facility] [address] [place], [address] Chloride [Moles/Vol] 109 mmol/L High 98-108 [facility] Comment on above: Performed By: #### L 100.0500, L500.3600, L501.5200 ####[facility] [address] [place], [address] CO2 [Moles/Vol] 18.0 mmol/L Low 21.0-32.0 [facility] Comment on above: Performed By: #### L 100.0500, L500.3600, L501.5200 ####[facility] [address] [place], [address] Creatinine [Mass/Vol] 7.62 mg/dL Invalid Interpretation Code 0.70-1.20 [facility] Comment on above: Result Comment: Crit ical Result(s) Called at: 0552 by:??YORDY HAVEN TO [place] Results read back by same. Performed By: #### L 100.0500, L500.3600, L501.5200 ####[facility] [address] [place], [address] ECRCL 11.44 ml/min Low 50-250 [facility] Comment on above: Performed By: #### L 100.0500, L500.3600, L501.5200 ####[facility] [address] [place], [address] GAP 15 Normal 5-15 [facility] Comment on above: Performed By: #### L 100.0500, L500.3600, L501.5200 ####[facility] [address] [place], [address] GFR/1.73 sq M.predicted among non-blacks MDRD (S/P/Bld) [Vol rate/Area] 7 mL/min/{1.73_m2} Low >60 [facility] Comment on above: Result Comment: mL/m in/1.73m2 CKD-EPI Creatinine Equation (2020) Performed By: #### L 100.0500, L500.3600, L501.5200 ####[facility] [address] [place], [address] Glucose [Mass/Vol] 194 mg/dL High 70-99 [facility] Comment on above: Performed By: #### L 100.0500, L500.3600, L501.5200 ####[facility] [address] [place], [address] Phosphate [Mass/Vol] 4.3 mg/dL Normal 2.7-4.5 [facility] Comment on above: Performed By: #### L 100.0500, L500.3600, L501.5200 ####[facility] [address] [place], [address] Potassium [Moles/Vol] 3.5 mmol/L Normal 3.3-5.1 [facility] Comment on above: Performed By: #### L 100.0500, L500.3600, L501.5200 ####[facility] [address] [place], [address] Sodium [Moles/Vol] 141 mmol/L Normal 133-145 [facility] Comment on above: Performed By: #### L 100.0500, L500.3600, L501.5200 ####[facility] [address] [place], [address] Urea nitrogen [Mass/Vol] 62 mg/dL High 4-19 [facility] Comment on above: Performed By: #### L 100.0500, L500.3600, L501.5200 ####[facility] [address] [place], [address] Basic Metabolic Profile (BMP )on 08-17-2024 BUN/CRE 8.6 RATIO Low 10-20 [facility] Comment on above: Performed By: #### L 100.0100, L500.2500 ####[facility] [address] [place], [address] Calcium [Mass/Vol] 6.8 mg/dL Low 7.6-11.0 [facility] Comment on above: Performed By: #### L 100.0100, L500.2500 ####[facility] [address] [place], [address] Chloride [Moles/Vol] 109 mmol/L High 98-108 [facility] Comment on above: Performed By: #### L 100.0100, L500.2500 ####[facility] [address] [place], [address] CO2 [Moles/Vol] 18.8 mmol/L Low 21.0-32.0 [facility] Comment on above: Performed By: #### L 100.0100, L500.2500 ####[facility] [address] [place], [address] Creatinine [Mass/Vol] 7.20 mg/dL High 0.70-1.20 [facility] Comment on above: Performed By: #### L 100.0100, L500.2500 ####[facility] [address] [place], [address] ECRCL 11.98 ml/min Low 50-250 [facility] Comment on above: Performed By: #### L 100.0100, L500.2500 ####[facility] [address] [place], [address] GAP 14 Normal 5-15 [facility] Comment on above: Performed By: #### L 100.0100, L500.2500 ####[facility] [address] [place], [address] GFR/1.73 sq M.predicted among non-blacks MDRD (S/P/Bld) [Vol rate/Area] 8 mL/min/{1.73_m2} Low >60 [facility] Comment on above: Result Comment: mL/m in/1.73m2 CKD-EPI Creatinine Equation (2020) Performed By: #### L 100.0100, L500.2500 ####[facility] [address] [place], [address] Glucose [Mass/Vol] 130 mg/dL High 70-99 [facility] Comment on above: Performed By: #### L 100.0100, L500.2500 ####[facility] [address] [place], [address] Potassium [Moles/Vol] 3.5 mmol/L Normal 3.3-5.1 [facility] Comment on above: Performed By: #### L 100.0100, L500.2500 ####[facility] [address] [place], [address] Sodium [Moles/Vol] 141 mmol/L Normal 133-145 [facility] Comment on above: Performed By: #### L 100.0100, L500.2500 ####[facility] [address] [place], [address] Urea nitrogen [Mass/Vol] 62 mg/dL High 4-19 [facility] Comment on above: Performed By: #### L 100.0100, L500.2500 ####[facility] [address] [place], [address] Bedside Glucoseon 08-17-2024 FINGERSTICK GLU 147 mg/dL High 74-106 [facility] Comment on above: Result Comment: ANABELLE GEMENT OF PATIENT CARE PER NURSING PROTOCOL Performed By: #### L 501.080 ####[facility] [address] [place], [address] FINGERSTICK GLU 112 mg/dL High 74-106 [facility] Comment on above: Result Comment: ANABELLE GEMENT OF PATIENT CARE PER NURSING PROTOCOL Performed By: #### L 501.080 ####[facility] [address] [place], [address] FINGERSTICK GLU 83 mg/dL Normal 74-106 [facility] Comment on above: Result Comment: ANABELLE GEMENT OF PATIENT CARE PER NURSING PROTOCOL Performed By: #### L 501.080 ####[facility] [address] [place], [address] FINGERSTICK GLU 149 mg/dL High 74-106 [facility] Comment on above: Result Comment: ANABELLE BACH OF PATIENT CARE PER NURSING PROTOCOL Performed By: #### L 501.080 ####[facility] [address] [place], [address] CBC W/Diff, Automatedon 04-2 SMEAR COMMENT SCANNED Normal [facility] Comment on above: Performed By: #### L 100.0100, L500.2500 ####[facility] [address] [place], [address] CBC-Complete Blood Cnt No Di ffon 08-17-2024 HCT Normal 40-54 [facility] Comment on above: Result Comment: Canc elled via OM: MD Ordered Performed By: #### L 100.0500 ####[facility] [address] [place], [address] Result Comment: CANC ELLATION ORDER Performed By: #### L 100.0500, L500.3600 ####[facility] [address] [place], [address] HGB Normal 13.0-16.5 [facility] Comment on above: Result Comment: Canc elled via OM: MD Ordered Performed By: #### L 100.0500 ####[facility] [address] [place], [address] Result Comment: CANC ELLATION ORDER Performed By: #### L 100.0500, L500.3600 ####[facility] [address] [place], [address] MCH Normal 27.0-32.0 [facility] Comment on above: Result Comment: Canc elled via OM: MD Ordered Performed By: #### L 100.0500 ####[facility] [address] [place], [address] Result Comment: CANC ELLATION ORDER Performed By: #### L 100.0500, L500.3600 ####[facility] [address] [place], [address] MCHC Normal 32-36 [facility] Comment on above: Result Comment: Canc elled via OM: MD Ordered Performed By: #### L 100.0500 ####[facility] [address] [place], [address] Result Comment: CANC ELLATION ORDER Performed By: #### L 100.0500, L500.3600 ####[facility] [address] [place], [address] MCV Normal 80-94 [facility] Comment on above: Result Comment: Canc elled via OM: MD Ordered Performed By: #### L 100.0500 ####[facility] [address] [place], [address] Result Comment: CANC ELLATION ORDER Performed By: #### L 100.0500, L500.3600 ####[facility] [address] [place], [address] PLT Normal 150-450 [facility] Comment on above: Result Comment: Canc elled via OM: MD Ordered Performed By: #### L 100.0500 ####[facility] [address] [place], [address] Result Comment: CANC ELLATION ORDER Performed By: #### L 100.0500, L500.3600 ####[facility] [address] [place], [address] RBC Normal 4.6-6.2 [facility] Comment on above: Result Comment: Canc elled via OM: MD Ordered Performed By: #### L 100.0500 ####[facility] [address] [place], [address] Result Comment: CANC ELLATION ORDER Performed By: #### L 100.0500, L500.3600 ####[facility] [address] [place], [address] RDW CV Normal 11.6-14.6 [facility] Comment on above: Result Comment: Canc elled via OM: MD Ordered Performed By: #### L 100.0500 ####[facility] [address] [place], [address] Result Comment: CANC ELLATION ORDER Performed By: #### L 100.0500, L500.3600 ####[facility] [address] [place], [address] RDW SD Normal 35.1-43.9 [facility] Comment on above: Result Comment: Canc elled via OM: MD Ordered Performed By: #### L 100.0500 ####[facility] [address] [place], [address] Result Comment: CANC ELLATION ORDER Performed By: #### L 100.0500, L500.3600 ####[facility] [address] [place], [address] WBC Normal 4.4-11.0 [facility] Comment on above: Result Comment: Canc elled via OM: MD Ordered Performed By: #### L 100.0500 ####[facility] [address] [place], [address] Result Comment: CANC ELLATION ORDER Performed By: #### L 100.0500, L500.3600 ####[facility] [address] [place], [address] Erythrocyte distribution width (RBC) [Ratio] 14.7 % High 11.6-14.6 [facility] Comment on above: Performed By: #### L 300.4310, L100.0500, L500.3600, L501.5200 ####[facility] [address] [place], [address] Hematocrit (Bld) [Volume fraction] 24.1 % Low 40-54 [facility] Comment on above: Performed By: #### L 300.4310, L100.0500, L500.3600, L501.5200 ####[facility] [address] [place], [address] Hemoglobin (Bld) [Mass/Vol] 8.2 g/dL Low 13.0-16.5 [facility] Comment on above: Performed By: #### L 300.4310, L100.0500, L500.3600, L501.5200 ####[facility] [address] [place], [address] MCH (RBC) [Entitic mass] 31.1 pg Normal 27.0-32.0 [facility] Comment on above: Performed By: #### L 300.4310, L100.0500, L500.3600, L501.5200 ####[facility] [address] [place], [address] MCHC (RBC) [Mass/Vol] 34.0 g/dL Normal 32-36 [facility] Comment on above: Performed By: #### L 300.4310, L100.0500, L500.3600, L501.5200 ####[facility] [address] [place], [address] MCV (RBC) [Entitic vol] 91.3 fL Normal 80-94 [facility] Comment on above: Performed By: #### L 300.4310, L100.0500, L500.3600, L501.5200 ####[facility] [address] [place], [address] Platelet mean volume (Bld) [Entitic vol] 11.8 fL Normal 6.2-12.0 [facility] Comment on above: Performed By: #### L 300.4310, L100.0500, L500.3600, L501.5200 ####[facility] [address] [place], [address] Platelets (Bld) [#/Vol] 207 10*3/uL Normal 150-450 [facility] Comment on above: Performed By: #### L 300.4310, L100.0500, L500.3600, L501.5200 ####[facility] [address] [place], [address] RBC (Bld) [#/Vol] 2.64 10*6/uL Low 4.6-6.2 [facility] Comment on above: Performed By: #### L 300.4310, L100.0500, L500.3600, L501.5200 ####[facility] [address] [place], [address] RDW SD 49.5 fl High 35.1-43.9 [facility] Comment on above: Performed By: #### L 300.4310, L100.0500, L500.3600, L501.5200 ####[facility] [address] [place], [address] WBC (Bld) [#/Vol] 12.4 10*3/uL High 4.4-11.0 [facility] Comment on above: Performed By: #### L 300.4310, L100.0500, L500.3600, L501.5200 ####[facility] [address] [place], [address] Chest 1 View (Portable)on Chest 1 View (Portable) Normal [facility] Magnesiumon 08-17-2024 Magnesium [Mass/Vol] 1.9 mg/dL Normal 1.5-2.2 [facility] Comment on above: Performed By: #### L 300.4310, L100.0500, L500.3600, L501.5200 ####[facility] [address] [place], [address] Partial Thromboplast Timeon 08-17-2024 aPTT Coag (Bld) [Time] 36.5 s High 24.1-36.2 [facility] Comment on above: Performed By: #### L 300.4310, L100.0500, L500.3600, L501.5200 ####[facility] [address] [place], [address] Renal Profileon 08-17-2024 ALB Normal 3.4-4.8 [facility] Comment on above: Result Comment: OM C ANCEL REQUEST Performed By: #### L 100.0500, L500.3600 ####[facility] [address] [place], [address] BUN Normal 4-19 [facility] Comment on above: Result Comment: OM C ANCEL REQUEST Performed By: #### L 100.0500, L500.3600 ####[facility] [address] [place], [address] BUN/CRE Normal 10-20 [facility] Comment on above: Result Comment: OM C ANCEL REQUEST Performed By: #### L 100.0500, L500.3600 ####[facility] [address] [place], [address] Calcium Normal 7.6-11.0 [facility] Comment on above: Result Comment: OM C ANCEL REQUEST Performed By: #### L 100.0500, L500.3600 ####[facility] [address] [place], [address] CL Normal 98-108 [facility] Comment on above: Result Comment: OM C ANCEL REQUEST Performed By: #### L 100.0500, L500.3600 ####[facility] [address] [place], [address] CO2 Normal 21.0-32.0 [facility] Comment on above: Result Comment: OM C ANCEL REQUEST Performed By: #### L 100.0500, L500.3600 ####[facility] [address] [place], [address] CREAT,SERUM Normal 0.70-1.20 [facility] Comment on above: Result Comment: OM C ANCEL REQUEST Performed By: #### L 100.0500, L500.3600 ####[facility] [address] [place], [address] eGFR Normal >60 [facility] Comment on above: Result Comment: OM C ANCEL REQUEST Performed By: #### L 100.0500, L500.3600 ####[facility] [address] [place], [address] GAP Normal 5-15 [facility] Comment on above: Result Comment: OM C ANCEL REQUEST Performed By: #### L 100.0500, L500.3600 ####[facility] [address] [place], [address] GLU Normal 70-99 [facility] Comment on above: Result Comment: OM C ANCEL REQUEST Performed By: #### L 100.0500, L500.3600 ####[facility] [address] [place], [address] PHOS Normal 2.7-4.5 [facility] Comment on above: Result Comment: OM C ANCEL REQUEST Performed By: #### L 100.0500, L500.3600 ####[facility] [address] [place], [address] Potassium Normal 3.3-5.1 [facility] Comment on above: Result Comment: OM C ANCEL REQUEST Performed By: #### L 100.0500, L500.3600 ####[facility] [address] [place], [address] Renal Profile Normal 133-145 [facility] Comment on above: Result Comment: OM C ANCEL REQUEST Performed By: #### L 100.0500, L500.3600 ####[facility] [address] [place], [address] Albumin [Mass/Vol] 2.4 g/dL Low 3.4-4.8 [facility] Comment on above: Performed By: #### L 300.4310, L100.0500, L500.3600, L501.5200 ####[facility] [address] [place], [address] BUN/CRE 8.6 RATIO Low 10-20 [facility] Comment on above: Performed By: #### L 300.4310, L100.0500, L500.3600, L501.5200 ####[facility] [address] [place], [address] Calcium [Mass/Vol] 6.8 mg/dL Low 7.6-11.0 [facility] Comment on above: Performed By: #### L 300.4310, L100.0500, L500.3600, L501.5200 ####[facility] [address] [place], [address] Chloride [Moles/Vol] 115 mmol/L High 98-108 [facility] Comment on above: Performed By: #### L 300.4310, L100.0500, L500.3600, L501.5200 ####[facility] [address] [place], [address] CO2 [Moles/Vol] 18.3 mmol/L Low 21.0-32.0 [facility] Comment on above: Performed By: #### L 300.4310, L100.0500, L500.3600, L501.5200 ####[facility] [address] [place], [address] Creatinine [Mass/Vol] 7.19 mg/dL High 0.70-1.20 [facility] Comment on above: Performed By: #### L 300.4310, L100.0500, L500.3600, L501.5200 ####[facility] [address] [place], [address] ECRCL 12.08 ml/min Low 50-250 [facility] Comment on above: Performed By: #### L 300.4310, L100.0500, L500.3600, L501.5200 ####[facility] [address] [place], [address] GAP 14 Normal 5-15 [facility] Comment on above: Performed By: #### L 300.4310, L100.0500, L500.3600, L501.5200 ####[facility] [address] [place], [address] GFR/1.73 sq M.predicted among non-blacks MDRD (S/P/Bld) [Vol rate/Area] 8 mL/min/{1.73_m2} Low >60 [facility] Comment on above: Result Comment: mL/m in/1.73m2 CKD-EPI Creatinine Equation (2020) Performed By: #### L 300.4310, L100.0500, L500.3600, L501.5200 ####[facility] [address] [place], [address] Glucose [Mass/Vol] 122 mg/dL High 70-99 [facility] Comment on above: Performed By: #### L 300.4310, L100.0500, L500.3600, L501.5200 ####[facility] [address] [place], [address] Phosphate [Mass/Vol] 3.7 mg/dL Normal 2.7-4.5 [facility] Comment on above: Performed By: #### L 300.4310, L100.0500, L500.3600, L501.5200 ####[facility] [address] [place], [address] Potassium [Moles/Vol] 3.6 mmol/L Normal 3.3-5.1 [facility] Comment on above: Performed By: #### L 300.4310, L100.0500, L500.3600, L501.5200 ####[facility] [address] [place], [address] Sodium [Moles/Vol] 147 mmol/L High 133-145 [facility] Comment on above: Performed By: #### L 300.4310, L100.0500, L500.3600, L501.5200 ####[facility] [address] [place], [address] Urea nitrogen [Mass/Vol] 62 mg/dL High 4-19 [facility] Comment on above: Performed By: #### L 300.4310, L100.0500, L500.3600, L501.5200 ####[facility] [address] [place], [address] Basic Metabolic Profile (BMP )on 08-16-2024 BUN/CRE 9.0 RATIO Low -20 [facility] Comment on above: Performed By: #### L 500.2500, L100.0100 ####[facility] [address] [place], [address] Calcium [Mass/Vol] 6.9 mg/dL Low 7.6-11.0 [facility] Comment on above: Performed By: #### L 500.2500, L100.0100 ####[facility] [facility] [address] [place], [address] Chloride [Moles/Vol] 108 mmol/L Normal 98-108 [facility] Comment on above: Performed By: #### L 500.2500, L100.0100 ####[facility] [address] [place], [address] CO2 [Moles/Vol] 20.7 mmol/L Low 21.0-32.0 [facility] Comment on above: Performed By: #### L 500.2500, L100.0100 ####[facility] [address] [place], [address] Creatinine [Mass/Vol] 6.20 mg/dL High 0.70-1.20 [facility] Comment on above: Performed By: #### L 500.2500, L100.0100 ####[facility] [address] [place], [address] ECRCL 13.91 ml/min Low 50-250 [facility] Comment on above: Performed By: #### L 500.2500, L100.0100 ####[facility] [address] [place], [address] GAP 12 Normal 5-15 [facility] Comment on above: Performed By: #### L 500.2500, L100.0100 ####[facility] [address] [place], [address] GFR/1.73 sq M.predicted among non-blacks MDRD (S/P/Bld) [Vol rate/Area] 9 mL/min/{1.73_m2} Low >60 [facility] Comment on above: Result Comment: mL/m in/1.73m2 CKD-EPI Creatinine Equation (2020) Performed By: #### L 500.2500, L100.0100 ####[facility] [address] [place], [address] Glucose [Mass/Vol] 173 mg/dL High 70-99 [facility] Comment on above: Performed By: #### L 500.2500, L100.0100 ####[facility] [address] [place], [address] Potassium [Moles/Vol] 3.5 mmol/L Normal 3.3-5.1 [facility] Comment on above: Performed By: #### L 500.2500, L100.0100 ####[facility] [address] [place], [address] Sodium [Moles/Vol] 141 mmol/L Normal 133-145 [facility] Comment on above: Performed By: #### L 500.2500, L100.0100 ####[facility] [address] [place], [address] Urea nitrogen [Mass/Vol] 56 mg/dL High 4-19 [facility] Comment on above: Performed By: #### L 500.2500, L100.0100 ####[facility] [address] [place], [address] Bedside Glucoseon 08-16-2024 FINGERSTICK GLU 172 mg/dL High 74-106 [facility] Comment on above: Result Comment: ANABELLE GEMENT OF PATIENT CARE PER NURSING PROTOCOL Performed By: #### L 501.080 ####[facility] [address] [place], [address] FINGERSTICK GLU 155 mg/dL High 74-106 [facility] Comment on above: Result Comment: ANABELLE GEMENT OF PATIENT CARE PER NURSING PROTOCOL Performed By: #### L 501.080 ####[facility] [address] [place], [address] FINGERSTICK GLU 216 mg/dL High 74-106 [facility] Comment on above: Result Comment: ANABELLE GEMENT OF PATIENT CARE PER NURSING PROTOCOL Performed By: #### L 501.080 ####[facility] [address] [place], [address] FINGERSTICK GLU 178 mg/dL High 74-106 [facility] Comment on above: Result Comment: ANABELLE GEMENT OF PATIENT CARE PER NURSING PROTOCOL Performed By: #### L 501.080 ####[facility] [address] [place], [address] CBC W/Diff, Automatedon 04-2 0-2024 Absolute Lymph 0.86 X10 3/uL Normal 0.83-4.51 [facility] Comment on above: Performed By: #### L 500.2500, L100.0100 ####[facility] [address] [place], [address] Absolute Neut 10.3 X10 3/uL High 2.0-7.7 [facility] Comment on above: Performed By: #### L 500.2500, L100.0100 ####[facility] [address] [place], [address] Basophils/100 WBC (Bld) 0.2 % Normal 0-1 [facility] Comment on above: Performed By: #### L 500.2500, L100.0100 ####[facility] [address] [place], [address] Eosinophils/100 WBC (Bld) 2.1 % Normal 0-5 [facility] Comment on above: Performed By: #### L 500.2500, L100.0100 ####[facility] [address] [place], [address] Erythrocyte distribution width (RBC) [Ratio] 14.6 % Normal 11.6-14.6 [facility] Comment on above: Performed By: #### L 500.2500, L100.0100 ####[facility] [address] [place], [address] Hematocrit (Bld) [Volume fraction] 24.6 % Low 40-54 [facility] Comment on above: Performed By: #### L 500.2500, L100.0100 ####[facility] [address] [place], [address] Hemoglobin (Bld) [Mass/Vol] 8.3 g/dL Low 13.0-16.5 [facility] Comment on above: Performed By: #### L 500.2500, L100.0100 ####[facility] [address] [place], [address] IG% 1.900 High 0.0-0.9 [facility] Comment on above: Result Comment: IG% - Immature Granulocytes (promyelocytes, myelocytes andmetamyelocytes) > 1% indicates that a LEFT SHIFT is Present. Performed By: #### L 500.2500, L100.0100 ####[facility] [address] [place], [address] Lymphocytes/100 WBC (Bld) 6.6 % Low 19-41 [facility] Comment on above: Performed By: #### L 500.2500, L100.0100 ####[facility] [address] [place], [address] MCH (RBC) [Entitic mass] 30.5 pg Normal 27.0-32.0 [facility] Comment on above: Performed By: #### L 500.2500, L100.0100 ####[facility] [address] [place], [address] MCHC (RBC) [Mass/Vol] 33.7 g/dL Normal 32-36 [facility] Comment on above: Performed By: #### L 500.2500, L100.0100 ####[facility] [address] [place], [address] MCV (RBC) [Entitic vol] 90.4 fL Normal 80-94 [facility] Comment on above: Performed By: #### L 500.2500, L100.0100 ####[facility] [address] [place], [address] Monocytes/100 WBC (Bld) 10.3 % High 0-10 [facility] Comment on above: Performed By: #### L 500.2500, L100.0100 ####[facility] [address] [place], [address] Neutrophils/100 WBC (Bld) 78.9 % High 47-70 [facility] Comment on above: Performed By: #### L 500.2500, L100.0100 ####[facility] [address] [place], [address] Nucleated RBC (Bld) [#/Vol] 0 10*3/uL Normal 0-5 [facility] Comment on above: Performed By: #### L 500.2500, L100.0100 ####[facility] [address] [place], [address] Platelet mean volume (Bld) [Entitic vol] 12.3 fL High 6.2-12.0 [facility] Comment on above: Performed By: #### L 500.2500, L100.0100 ####[facility] [address] [place], [address] Platelets (Bld) [#/Vol] 109 10*3/uL Low 150-450 [facility] Comment on above: Performed By: #### L 500.2500, L100.0100 ####[facility] [address] [place], [address] RBC (Bld) [#/Vol] 2.72 10*6/uL Low 4.6-6.2 [facility] Comment on above: Performed By: #### L 500.2500, L100.0100 ####[facility] [address] [place], [address] RDW SD 48.6 fl High 35.1-43.9 [facility] Comment on above: Performed By: #### L 500.2500, L100.0100 ####[facility] [address] [place], [address] WBC (Bld) [#/Vol] 13.1 10*3/uL High 4.4-11.0 [facility] Comment on above: Performed By: #### L 500.2500, L100.0100 ####[facility] [address] [place], [address] Bedside Glucoseon 08-15-2024 FINGERSTICK GLU 156 mg/dL High 74-106 [facility] Comment on above: Result Comment: ANABELLE GEMENT OF PATIENT CARE PER NURSING PROTOCOL Performed By: #### L 501.080 ####[facility] [address] [place], [address] FINGERSTICK GLU 109 mg/dL High 74-106 [facility] Comment on above: Result Comment: ANABELLE GEMENT OF PATIENT CARE PER NURSING PROTOCOL Performed By: #### L 501.080 ####[facility] [address] [place], [address] FINGERSTICK GLU 101 mg/dL Normal 74-106 [facility] Comment on above: Result Comment: ANABELLE GEMENT OF PATIENT CARE PER NURSING PROTOCOL Performed By: #### L 501.080 ####[facility] [address] [place], [address] FINGERSTICK GLU 109 mg/dL High 74-106 [facility] Comment on above: Result Comment: ANABELLE GEMENT OF PATIENT CARE PER NURSING PROTOCOL Performed By: #### L 501.080 ####[facility] [address] [place], [address] FINGERSTICK GLU 221 mg/dL High 74-106 [facility] Comment on above: Result Comment: ANABELLE GEMENT OF PATIENT CARE PER NURSING PROTOCOL Performed By: #### L 501.080 ####[facility] [address] [place], [address] FINGERSTICK GLU 83 mg/dL Normal 74-106 [facility] Comment on above: Result Comment: ANABELLE GEMENT OF PATIENT CARE PER NURSING PROTOCOL Performed By: #### L 501.080 ####[facility] [address] [place], [address] Blood Gases by [facility] 025 ANTONIO TEST N/A Normal [facility] Comment on above: Performed By: #### L 9000.0800 ####[facility] [address] [place], [address] Base excess Calc (Bld) [Moles/Vol] -4 mmol/L Low -2 to +2 [facility] Comment on above: Performed By: #### L 9000.0800 ####[facility] [address] [place], [address] Blood Gas Type ART Normal [facility] Comment on above: Performed By: #### L 9000.0800 ####[facility] [address] [place], [address] CO2 [Moles/Vol] 21 mmol/L Normal [facility] Comment on above: Performed By: #### L 9000.0800 ####[facility] [address] [place], [address] FI02 35.0 Normal [facility] Comment on above: Performed By: #### L 9000.0800 ####[facility] [address] [place], [address] HCO3 (Bld) [Moles/Vol] 19.8 mmol/L Low 22-26 [facility] Comment on above: Performed By: #### L 9000.0800 ####[facility] [address] [place], [address] Mode AC Normal [facility] Comment on above: Performed By: #### L 9000.0800 ####[facility] [address] [place], [address] O2 Delivery Dev Adult Vent Normal [facility] Comment on above: Performed By: #### L 9000.0800 ####[facility] [address] [place], [address] pCO2 28.3 mmHg Low 35-45 [facility] Comment on above: Performed By: #### L 9000.0800 ####[facility] [address] [place], [address] PEEP 5 Normal [facility] Comment on above: Performed By: #### L 9000.0800 ####[facility] [address] [place], [address] pH (Bld) 7.45 [pH] Normal 7.35-7.45 [facility] Comment on above: Performed By: #### L 9000.0800 ####[facility] [address] [place], [address] PO2 60 mmHG Low 75-100 [facility] Comment on above: Performed By: #### L 9000.0800 ####[facility] [address] [place], [address] RR 18 Normal [facility] Comment on above: Performed By: #### L 9000.0800 ####[facility] [address] [place], [address] SITE R Radial Normal [facility] Comment on above: Performed By: #### L 9000.0800 ####[facility] [address] [place], [address] SO2 92 Low 95-99 [facility] Comment on above: Performed By: #### L 9000.0800 ####[facility] [address] [place], [address] Vt 500.0 mL Normal [facility] Comment on above: Performed By: #### L 9000.0800 ####[facility] [address] [place], [address] CBC W/Diff, Automatedon 07-28 Absolute Lymph 1.17 X10 3/uL Normal 0.83-4.51 [facility] Comment on above: Performed By: #### L 500.4050, L100.0100 ####[facility] [address] [place], [address] Absolute Neut 17.4 X10 3/uL High 2.0-7.7 [facility] Comment on above: Performed By: #### L 500.4050, L100.0100 ####[facility] [address] [place], [address] Basophils/100 WBC (Bld) 0.3 % Normal 0-1 [facility] Comment on above: Performed By: #### L 500.4050, L100.0100 ####[facility] [address] [place], [address] Eosinophils/100 WBC (Bld) 1.1 % Normal 0-5 [facility] Comment on above: Performed By: #### L 500.4050, L100.0100 ####[facility] [address] [place], [address] Erythrocyte distribution width (RBC) [Ratio] 14.6 % Normal 11.6-14.6 [facility] Comment on above: Performed By: #### L 500.4050, L100.0100 ####[facility] [address] [place], [address] Hematocrit (Bld) [Volume fraction] 27.2 % Low 40-54 [facility] Comment on above: Performed By: #### L 500.4050, L100.0100 ####[facility] [address] [place], [address] Hemoglobin (Bld) [Mass/Vol] 9.3 g/dL Low 13.0-16.5 [facility] Comment on above: Performed By: #### L 500.4050, L100.0100 ####[facility] [address] [place], [address] IG% 0.700 Normal 0.0-0.9 [facility] Comment on above: Result Comment: IG% - Immature Granulocytes (promyelocytes, myelocytes andmetamyelocytes) > 1% indicates that a LEFT SHIFT is Present. Performed By: #### L 500.4050, L100.0100 ####[facility] [address] [place], [address] Lymphocytes/100 WBC (Bld) 5.9 % Low 19-41 [facility] Comment on above: Performed By: #### L 500.4050, L100.0100 ####[facility] [address] [place], [address] MCH (RBC) [Entitic mass] 30.8 pg Normal 27.0-32.0 [facility] Comment on above: Performed By: #### L 500.4050, L100.0100 ####[facility] [address] [place], [address] MCHC (RBC) [Mass/Vol] 34.2 g/dL Normal 32-36 [facility] Comment on above: Performed By: #### L 500.4050, L100.0100 ####[facility] [address] [place], [address] MCV (RBC) [Entitic vol] 90.1 fL Normal 80-94 [facility] Comment on above: Performed By: #### L 500.4050, L100.0100 ####[facility] [address] [place], [address] Monocytes/100 WBC (Bld) 4.7 % Normal 0-10 [facility] Comment on above: Performed By: #### L 500.4050, L100.0100 ####[facility] [address] [place], [address] Neutrophils/100 WBC (Bld) 87.3 % High 47-70 [facility] Comment on above: Performed By: #### L 500.4050, L100.0100 ####[facility] [address] [place], [address] Nucleated RBC (Bld) [#/Vol] 0 10*3/uL Normal 0-5 [facility] Comment on above: Performed By: #### L 500.4050, L100.0100 ####[facility] [address] [place], [address] Platelet mean volume (Bld) [Entitic vol] 12.4 fL High 6.2-12.0 [facility] Comment on above: Performed By: #### L 500.4050, L100.0100 ####[facility] [address] [place], [address] Platelets (Bld) [#/Vol] 120 10*3/uL Low 150-450 [facility] Comment on above: Performed By: #### L 500.4050, L100.0100 ####[facility] [address] [place], [address] RBC (Bld) [#/Vol] 3.02 10*6/uL Low 4.6-6.2 [facility] Comment on above: Performed By: #### L 500.4050, L100.0100 ####[facility] [address] [place], [address] RDW SD 48.3 fl High 35.1-43.9 [facility] Comment on above: Performed By: #### L 500.4050, L100.0100 ####[facility] [address] [place], [address] WBC (Bld) [#/Vol] 19.9 10*3/uL High 4.4-11.0 [facility] Comment on above: Performed By: #### L 500.4050, L100.0100 ####[facility] [address] [place], [address] Chest 1 View (Portable)on Chest 1 View (Portable) Normal [facility] Comprehensive Metabolic Prof ilon 08-15-2024 Albumin [Mass/Vol] 2.4 g/dL Low 3.4-4.8 [facility] Comment on above: Performed By: #### L 500.4050, L100.0100 ####[facility] [address] [place], [address] Albumin/Globulin [Mass ratio] 0.8 {ratio} Low 0.9-2.4 [facility] Comment on above: Performed By: #### L 500.4050, L100.0100 ####[facility] [address] [place], [address] ALK PHOS 128 U/L Normal 40-129 [facility] Comment on above: Performed By: #### L 500.4050, L100.0100 ####[facility] [address] [place], [address] ALT [Catalytic activity/Vol] 76 U/L High <=46 [facility] Comment on above: Performed By: #### L 500.4050, L100.0100 ####[facility] [address] [place], [address] AST [Catalytic activity/Vol] 236 U/L High <=37 [facility] Comment on above: Performed By: #### L 500.4050, L100.0100 ####[facility] [address] [place], [address] Bilirubin [Mass/Vol] 0.17 mg/dL Normal 0.00-1.30 [facility] Comment on above: Performed By: #### L 500.4050, L100.0100 ####[facility] [address] [place], [address] BUN/CRE 9.6 RATIO Low 10-20 [facility] Comment on above: Performed By: #### L 500.4050, L100.0100 ####[facility] [address] [place], [address] Calcium [Mass/Vol] 6.9 mg/dL Low 7.6-11.0 [facility] Comment on above: Performed By: #### L 500.4050, L100.0100 ####[facility] [address] [place], [address] Chloride [Moles/Vol] 110 mmol/L High 98-108 [facility] Comment on above: Performed By: #### L 500.4050, L100.0100 ####[facility] [address] [place], [address] CO2 [Moles/Vol] 18.7 mmol/L Low 21.0-32.0 [facility] Comment on above: Performed By: #### L 500.4050, L100.0100 ####[facility] [address] [place], [address] Creatinine [Mass/Vol] 6.56 mg/dL High 0.70-1.20 [facility] Comment on above: Performed By: #### L 500.4050, L100.0100 ####[facility] [address] [place], [address] ECRCL 13.03 ml/min Low 50-250 [facility] Comment on above: Performed By: #### L 500.4050, L100.0100 ####[facility] [address] [place], [address] GAP 14 Normal 5-15 [facility] Comment on above: Performed By: #### L 500.4050, L100.0100 ####[facility] [address] [place], [address] GFR/1.73 sq M.predicted among non-blacks MDRD (S/P/Bld) [Vol rate/Area] 9 mL/min/{1.73_m2} Low >60 [facility] Comment on above: Result Comment: mL/m in/1.73m2 CKD-EPI Creatinine Equation (2020) Performed By: #### L 500.4050, L100.0100 ####[facility] [address] [place], [address] Globulin (S) [Mass/Vol] 3.0 g/dL Normal 2.2-4.2 [facility] Comment on above: Performed By: #### L 500.4050, L100.0100 ####[facility] [address] [place], [address] Glucose [Mass/Vol] 118 mg/dL High 70-99 [facility] Comment on above: Performed By: #### L 500.4050, L100.0100 ####[facility] [address] [place], [address] Potassium [Moles/Vol] 3.4 mmol/L Normal 3.3-5.1 [facility] Comment on above: Performed By: #### L 500.4050, L100.0100 ####[facility] [address] [place], [address] Sodium [Moles/Vol] 142 mmol/L Normal 133-145 [facility] Comment on above: Performed By: #### L 500.4050, L100.0100 ####[facility] [address] [place], [address] T PROT 5.4 g/dL Low 5.9-8.4 [facility] Comment on above: Performed By: #### L 500.4050, L100.0100 ####[facility] [address] [place], [address] Urea nitrogen [Mass/Vol] 63 mg/dL High - [facility] Comment on above: Performed By: #### L 500.4050, L100.0100 ####[facility] [address] [place], [address] Echo Completeon 08-15-2024 Echo Complete Normal [facility] Basic Metabolic Profile (BMP )on 08-14-2024 BUN Normal - [facility] Comment on above: Result Comment: Canc elled via OM: MD Ordered Performed By: #### L 500.2500, L100.0100 ####[facility] [address] [place], [address] BUN/CRE Normal -20 [facility] Comment on above: Result Comment: Canc elled via OM: MD Ordered Performed By: #### L 500.2500, L100.0100 ####[facility] [address] [place], [address] Calcium Normal 7.6-11.0 [facility] Comment on above: Result Comment: Canc elled via OM: MD Ordered Performed By: #### L 500.2500, L100.0100 ####[facility] [address] [place], [address] CL Normal 98-108 [facility] Comment on above: Result Comment: Canc elled via OM: MD Ordered Performed By: #### L 500.2500, L100.0100 ####[facility] [address] [place], [address] CO2 Normal 21.0-32.0 [facility] Comment on above: Result Comment: Canc elled via OM: MD Ordered Performed By: #### L 500.2500, L100.0100 ####[facility] [address] [place], [address] CREAT,SERUM Normal 0.70-1.20 [facility] Comment on above: Result Comment: Canc elled via OM: MD Ordered Performed By: #### L 500.2500, L100.0100 ####[facility] [address] [place], [address] eGFR Normal >60 [facility] Comment on above: Result Comment: Canc elled via OM: MD Ordered Performed By: #### L 500.2500, L100.0100 ####[facility] [address] [place], [address] GAP Normal 5-15 [facility] Comment on above: Result Comment: Canc elled via OM: MD Ordered Performed By: #### L 500.2500, L100.0100 ####[facility] [address] [place], [address] GLU Normal 70-99 [facility] Comment on above: Result Comment: Canc elled via OM: MD Ordered Performed By: #### L 500.2500, L100.0100 ####[facility] [address] [place], [address] Potassium Normal 3.3-5.1 [facility] Comment on above: Result Comment: Canc elled via OM: MD Ordered Performed By: #### L 500.2500, L100.0100 ####[facility] [address] [place], [address] Basic Metabolic Profile (BMP) Normal 133-145 [facility] Comment on above: Result Comment: Canc elled via OM: MD Ordered Performed By: #### L 500.2500, L100.0100 ####[facility] [address] [place], [address] Bedside Glucoseon 08-14-2024 FINGERSTICK GLU 70 mg/dL Low 74-106 [facility] Comment on above: Result Comment: ANABELLE GEMENT OF PATIENT CARE PER NURSING PROTOCOL Performed By: #### L 501.080 ####[facility] [address] [place], [address] FINGERSTICK GLU 80 mg/dL Normal 74-106 [facility] Comment on above: Result Comment: ANABELLE GEMENT OF PATIENT CARE PER NURSING PROTOCOL Performed By: #### L 501.080 ####[facility] [address] [place], [address] CBC W/Diff, Automatedon - Absolute Lymph 1.37 X10 3/uL Normal 0.83-4.51 [facility] Comment on above: Performed By: #### L 500.2500, L100.0100 ####[facility] [address] [place], [address] Absolute Neut 18.3 X10 3/uL High 2.0-7.7 [facility] Comment on above: Performed By: #### L 500.2500, L100.0100 ####[facility] [address] [place], [address] Basophils/100 WBC (Bld) 0.2 % Normal 0-1 [facility] Comment on above: Performed By: #### L 500.2500, L100.0100 ####[facility] [address] [place], [address] Eosinophils/100 WBC (Bld) 0.3 % Normal 0-5 [facility] Comment on above: Performed By: #### L 500.2500, L100.0100 ####[facility] [address] [place], [address] Erythrocyte distribution width (RBC) [Ratio] 14.6 % Normal 11.6-14.6 [facility] Comment on above: Performed By: #### L 500.2500, L100.0100 ####[facility] [address] [place], [address] Hematocrit (Bld) [Volume fraction] 28.6 % Low 40-54 [facility] Comment on above: Performed By: #### L 500.2500, L100.0100 ####[facility] [address] [place], [address] Hemoglobin (Bld) [Mass/Vol] 9.8 g/dL Low 13.0-16.5 [facility] Comment on above: Performed By: #### L 500.2500, L100.0100 ####[facility] [address] [place], [address] IG% 0.500 Normal 0.0-0.9 [facility] Comment on above: Result Comment: IG% - Immature Granulocytes (promyelocytes, myelocytes andmetamyelocytes) > 1% indicates that a LEFT SHIFT is Present. Performed By: #### L 500.2500, L100.0100 ####[facility] [address] [place], [address] Lymphocytes/100 WBC (Bld) 6.7 % Low 19-41 [facility] Comment on above: Performed By: #### L 500.2500, L100.0100 ####[facility] [address] [place], [address] MCH (RBC) [Entitic mass] 31.0 pg Normal 27.0-32.0 [facility] Comment on above: Performed By: #### L 500.2500, L100.0100 ####[facility] [address] [place], [address] MCHC (RBC) [Mass/Vol] 34.3 g/dL Normal 32-36 [facility] Comment on above: Performed By: #### L 500.2500, L100.0100 ####[facility] [address] [place], [address] MCV (RBC) [Entitic vol] 90.5 fL Normal 80-94 [facility] Comment on above: Performed By: #### L 500.2500, L100.0100 ####[facility] [address] [place], [address] Monocytes/100 WBC (Bld) 2.6 % Normal 0-10 [facility] Comment on above: Performed By: #### L 500.2500, L100.0100 ####[facility] [address] [place], [address] Neutrophils/100 WBC (Bld) 89.7 % High 47-70 [facility] Comment on above: Performed By: #### L 500.2500, L100.0100 ####[facility] [address] [place], [address] Nucleated RBC (Bld) [#/Vol] 0 10*3/uL Normal 0-5 [facility] Comment on above: Performed By: #### L 500.2500, L100.0100 ####[facility] [address] [place], [address] Platelet mean volume (Bld) [Entitic vol] 12.0 fL Normal 6.2-12.0 [facility] Comment on above: Performed By: #### L 500.2500, L100.0100 ####[facility] [address] [place], [address] Platelets (Bld) [#/Vol] 127 10*3/uL Low 150-450 [facility] Comment on above: Performed By: #### L 500.2500, L100.0100 ####[facility] [address] [place], [address] RBC (Bld) [#/Vol] 3.16 10*6/uL Low 4.6-6.2 [facility] Comment on above: Performed By: #### L 500.2500, L100.0100 ####[facility] [address] [place], [address] RDW SD 49.1 fl High 35.1-43.9 [facility] Comment on above: Performed By: #### L 500.2500, L100.0100 ####[facility] [address] [place], [address] WBC (Bld) [#/Vol] 20.4 10*3/uL High 4.4-11.0 [facility] Comment on above: Performed By: #### L 500.2500, L100.0100 ####[facility] [address] [place], [address] Comprehensive Metabolic Prof [facility] 08-14-2024 Albumin [Mass/Vol] 2.5 g/dL Low 3.4-4.8 [facility] Comment on above: Performed By: #### L 500.4050 ####[facility] [address] [place], [address] Albumin/Globulin [Mass ratio] 0.9 {ratio} Normal 0.9-2.4 [facility] Comment on above: Performed By: #### L 500.4050 ####[facility] [address] [place], [address] ALK PHOS 112 U/L Normal 40-129 [facility] Comment on above: Performed By: #### L 500.4050 ####[facility] [address] [place], [address] ALT [Catalytic activity/Vol] 80 U/L High <=46 [facility] Comment on above: Performed By: #### L 500.4050 ####[facility] [address] [place], [address] AST [Catalytic activity/Vol] 230 U/L High <=37 [facility] Comment on above: Performed By: #### L 500.4050 ####[facility] [address] [place], [address] Bilirubin [Mass/Vol] 0.17 mg/dL Normal 0.00-1.30 [facility] Comment on above: Performed By: #### L 500.4050 ####[facility] [address] [place], [address] BUN/CRE 10.7 RATIO Normal 10-20 [facility] Comment on above: Performed By: #### L 500.4050 ####[facility] [address] [place], [address] Calcium [Mass/Vol] 7.2 mg/dL Low 7.6-11.0 [facility] Comment on above: Performed By: #### L 500.4050 ####[facility] [address] [place], [address] Chloride [Moles/Vol] 111 mmol/L High 98-108 [facility] Comment on above: Performed By: #### L 500.4050 ####[facility] [address] [place], [address] CO2 [Moles/Vol] 18.6 mmol/L Low 21.0-32.0 [facility] Comment on above: Performed By: #### L 500.4050 ####[facility] [address] [place], [address] Creatinine [Mass/Vol] 7.25 mg/dL High 0.70-1.20 [facility] Comment on above: Performed By: #### L 500.4050 ####[facility] [address] [place], [address] ECRCL 10.85 ml/min Low 50-250 [facility] Comment on above: Performed By: #### L 500.4050 ####[facility] [address] [place], [address] GAP 15 Normal 5-15 [facility] Comment on above: Performed By: #### L 500.4050 ####[facility] [address] [place], [address] GFR/1.73 sq M.predicted among non-blacks MDRD (S/P/Bld) [Vol rate/Area] 8 mL/min/{1.73_m2} Low >60 [facility] Comment on above: Result Comment: mL/m in/1.73m2 CKD-EPI Creatinine Equation (2020) Performed By: #### L 500.4050 ####[facility] [address] [place], [address] Globulin (S) [Mass/Vol] 2.7 g/dL Normal 2.2-4.2 [facility] Comment on above: Performed By: #### L 500.4050 ####[facility] [address] [place], [address] Glucose [Mass/Vol] 233 mg/dL High 70-99 [facility] Comment on above: Performed By: #### L 500.4050 ####[facility] [address] [place], [address] Potassium [Moles/Vol] 4.1 mmol/L Normal 3.3-5.1 [facility] Comment on above: Performed By: #### L 500.4050 ####[facility] [address] [place], [address] Sodium [Moles/Vol] 144 mmol/L Normal 133-145 [facility] Comment on above: Performed By: #### L 500.4050 ####[facility] [address] [place], [address] T PROT 5.1 g/dL Low 5.9-8.4 [facility] Comment on above: Performed By: #### L 500.4050 ####[facility] [address] [place], [address] Urea nitrogen [Mass/Vol] 77 mg/dL High -19 [facility] Comment on above: Performed By: #### L 500.4050 ####[facility] [address] [place], [address] ERCP Biliary/Pancreason 07-28 ERCP Biliary/Pancreas Normal [facility] ERCP Reporton 08-14-2024 ERCP Report Normal [facility] MR/POSTOP.ANEon 08-14-2024 MR/POSTOP.ANE Normal [facility] Procedure Reporton Procedure Report Normal [facility] Basic Metabolic Profile (BMP )on 08-13-2024 BUN/CRE 11.4 RATIO Normal 10-20 [facility] Comment on above: Performed By: #### L 501.5200, L500.2500, L100.0100 ####[facility] [address] [place], [address] Calcium [Mass/Vol] 7.0 mg/dL Low 7.6-11.0 [facility] Comment on above: Performed By: #### L 501.5200, L500.2500, L100.0100 ####[facility] [address] [place], [address] Chloride [Moles/Vol] 109 mmol/L High 98-108 [facility] Comment on above: Performed By: #### L 501.5200, L500.2500, L100.0100 ####[facility] [address] [place], [address] CO2 [Moles/Vol] 18.3 mmol/L Low 21.0-32.0 [facility] Comment on above: Performed By: #### L 501.5200, L500.2500, L100.0100 ####[facility] [address] [place], [address] Creatinine [Mass/Vol] 6.21 mg/dL High 0.70-1.20 [facility] Comment on above: Performed By: #### L 501.5200, L500.2500, L100.0100 ####[facility] [address] [place], [address] ECRCL 12.67 ml/min Low 50-250 [facility] Comment on above: Performed By: #### L 501.5200, L500.2500, L100.0100 ####[facility] [address] [place], [address] GAP 15 Normal 5-15 [facility] Comment on above: Performed By: #### L 501.5200, L500.2500, L100.0100 ####[facility] [address] [place], [address] GFR/1.73 sq M.predicted among non-blacks MDRD (S/P/Bld) [Vol rate/Area] 9 mL/min/{1.73_m2} Low >60 [facility] Comment on above: Result Comment: mL/m in/1.73m2 CKD-EPI Creatinine Equation (2020) Performed By: #### L 501.5200, L500.2500, L100.0100 ####[facility] [address] [place], [address] Glucose [Mass/Vol] 333 mg/dL High 70-99 [facility] Comment on above: Performed By: #### L 501.5200, L500.2500, L100.0100 ####[facility] [address] [place], [address] Potassium [Moles/Vol] 4.7 mmol/L Normal 3.3-5.1 [facility] Comment on above: Performed By: #### L 501.5200, L500.2500, L100.0100 ####[facility] [address] [place], [address] Sodium [Moles/Vol] 142 mmol/L Normal 133-145 [facility] Comment on above: Performed By: #### L 501.5200, L500.2500, L100.0100 ####[facility] [address] [place], [address] Urea nitrogen [Mass/Vol] 71 mg/dL High 4-19 [facility] Comment on above: Performed By: #### L 501.5200, L500.2500, L100.0100 ####[facility] [address] [place], [address] Bedside Glucoseon 08-13-2024 FINGERSTICK GLU 279 mg/dL High 74-106 [facility] Comment on above: Result Comment: ANABELLE GEMENT OF PATIENT CARE PER NURSING PROTOCOL Performed By: #### L 501.080 ####[facility] [address] [place], [address] FINGERSTICK GLU 277 mg/dL High 74-106 [facility] Comment on above: Result Comment: Dr Olu de jesus FollowedInsulin GivenMANAGEMENT OF PATIENT CARE PER NURSING PROTOCOL Performed By: #### L 501.080 ####[facility] [address] [place], [address] FINGERSTICK GLU 293 mg/dL High 74-106 [facility] Comment on above: Result Comment: ANABELLE GEMENT OF PATIENT CARE PER NURSING PROTOCOL Performed By: #### L 501.080 ####[facility] [address] [place], [address] FINGERSTICK GLU 343 mg/dL High 74-106 [facility] Comment on above: Result Comment: ANABELLE GEMENT OF PATIENT CARE PER NURSING PROTOCOL Performed By: #### L 501.080 ####[facility] [address] [place], [address] Blood Gases by [facility] 025 ANTONIO TEST Positive Normal [facility] Comment on above: Performed By: #### L 9000.0800 ####[facility] [address] [place], [address] Base excess Calc (Bld) [Moles/Vol] -7 mmol/L Low -2 to +2 [facility] Comment on above: Performed By: #### L 9000.0800 ####[facility] [address] [place], [address] Blood Gas Type ART Normal [facility] Comment on above: Performed By: #### L 9000.0800 ####[facility] [address] [place], [address] CO2 [Moles/Vol] 18 mmol/L Normal [facility] Comment on above: Performed By: #### L 9000.0800 ####[facility] [address] [place], [address] FI02 25.0 Normal [facility] Comment on above: Performed By: #### L 9000.0800 ####[facility] [address] [place], [address] HCO3 (Bld) [Moles/Vol] 17.2 mmol/L Low 22-26 [facility] Comment on above: Performed By: #### L 9000.0800 ####[facility] [address] [place], [address] Mode AC Normal [facility] Comment on above: Performed By: #### L 9000.0800 ####[facility] [address] [place], [address] O2 Delivery Dev Adult Vent Normal [facility] Comment on above: Performed By: #### L 9000.0800 ####[facility] [address] [place], [address] pCO2 26.3 mmHg Low 35-45 [facility] Comment on above: Performed By: #### L 9000.0800 ####[facility] [address] [place], [address] PEEP 5 Normal [facility] Comment on above: Performed By: #### L 9000.0800 ####[facility] [address] [place], [address] pH (Bld) 7.42 [pH] Normal 7.35-7.45 [facility] Comment on above: Performed By: #### L 9000.0800 ####[facility] [address] [place], [address] PO2 69 mmHG Low 75-100 [facility] Comment on above: Performed By: #### L 9000.0800 ####[facility] [address] [place], [address] RR 18 Normal [facility] Comment on above: Performed By: #### L 9000.0800 ####[facility] [address] [place], [address] SITE R Radial Normal [facility] Comment on above: Performed By: #### L 9000.0800 ####[facility] [address] [place], [address] SO2 94 Low 95-99 [facility] Comment on above: Performed By: #### L 9000.0800 ####[facility] [address] [place], [address] Vt 500.0 mL Normal [facility] Comment on above: Performed By: #### L 9000.0800 ####[facility] [address] [place], [address] CBC W/Diff, Automatedon 07-28 SMEAR COMMENT Normal [facility] Comment on above: Result Comment: BAND S NOTED Performed By: #### L 501.5200, L500.2500, L100.0100 ####[facility] [address] [place], [address] Culture, Blood (WB)on 2024 CUB Call with results STAT No growth in 5 days. Normal [facility] Comment on above: Performed By: #### L 506.0200, L503.0106, L501.3620, L500.4050, L503.6005, L501.9520, L501.5200, M200.1000 ####[facility] [address] [place], [address] Magnesiumon 08-13-2024 Magnesium [Mass/Vol] 1.8 mg/dL Normal 1.5-2.2 [facility] Comment on above: Performed By: #### L 501.5200, L500.2500, L100.0100 ####[facility] [address] [place], [address] Partial Thromboplast Timeon 08-13-2024 aPTT Coag (Bld) [Time] 31.1 s Normal 24.1-36.2 [facility] Comment on above: Performed By: #### L 300.4310, L300.3900 ####[facility] [address] [place], [address] Phosphoruson 08-13-2024 Phosphate [Mass/Vol] 3.8 mg/dL Normal 2.7-4.5 [facility] Comment on above: Performed By: #### L 501.2300 ####[facility] [address] [place], [address] Prothrombin Time w/INRon INR Coag (PPP) [Relative time] 1.3 {INR} Normal [facility] Comment on above: Performed By: #### L 300.4310, L300.3900 ####[facility] [address] [place], [address] PT Coag (PPP) [Time] 16.3 s High 11.7-14.9 [facility] Comment on above: Performed By: #### L 300.4310, L300.3900 ####[facility] [address] [place], [address] Respiratory Cultureon 2024 RESPC Normal [facility] Comment on above: Performed By: #### M 100.2000, M100.2400 ####[facility] [address] [place], [address] Basic Metabolic Profile (BMP )on 08-12-2024 BUN/CRE 10.7 RATIO Normal 10-20 [facility] Comment on above: Performed By: #### L 500.2500 ####[facility] [address] [place], [address] Calcium [Mass/Vol] 6.8 mg/dL Low 7.6-11.0 [facility] Comment on above: Performed By: #### L 500.2500 ####[facility] [address] [place], [address] Chloride [Moles/Vol] 107 mmol/L Normal 98-108 [facility] Comment on above: Performed By: #### L 500.2500 ####[facility] [address] [place], [address] CO2 [Moles/Vol] 17.3 mmol/L Low 21.0-32.0 [facility] Comment on above: Performed By: #### L 500.2500 ####[facility] [address] [place], [address] Creatinine [Mass/Vol] 5.55 mg/dL High 0.70-1.20 [facility] Comment on above: Performed By: #### L 500.2500 ####[facility] [address] [place], [address] ECRCL 14.18 ml/min Low 50-250 [facility] Comment on above: Performed By: #### L 500.2500 ####[facility] [address] [place], [address] GAP 17 High 5-15 [facility] Comment on above: Performed By: #### L 500.2500 ####[facility] [address] [place], [address] GFR/1.73 sq M.predicted among non-blacks MDRD (S/P/Bld) [Vol rate/Area] 11 mL/min/{1.73_m2} Low >60 [facility] Comment on above: Result Comment: mL/m in/1.73m2 CKD-EPI Creatinine Equation (2020) Performed By: #### L 500.2500 ####[facility] [address] [place], [address] Glucose [Mass/Vol] 270 mg/dL High 70-99 [facility] Comment on above: Performed By: #### L 500.2500 ####[facility] [address] [place], [address] Potassium [Moles/Vol] 4.6 mmol/L Normal 3.3-5.1 [facility] Comment on above: Performed By: #### L 500.2500 ####[facility] [address] [place], [address] Sodium [Moles/Vol] 142 mmol/L Normal 133-145 [facility] Comment on above: Performed By: #### L 500.2500 ####[facility] [address] [place], [place], [address] Urea nitrogen [Mass/Vol] 59 mg/dL High 4-19 [facility] Comment on above: Performed By: #### L 500.2500 ####[facility] [address] [place], [address] BUN/CRE 10.9 RATIO Normal 10-20 [facility] Comment on above: Performed By: #### L 500.2500 ####[facility] [address] [place], [address] Calcium [Mass/Vol] 6.7 mg/dL Low 7.6-11.0 [facility] Comment on above: Performed By: #### L 500.2500 ####[facility] [address] [place], [address] Chloride [Moles/Vol] 107 mmol/L Normal 98-108 [facility] Comment on above: Performed By: #### L 500.2500 ####[facility] [address] [place], [address] CO2 [Moles/Vol] 21.9 mmol/L Normal 21.0-32.0 [facility] Comment on above: Performed By: #### L 500.2500 ####[facility] [address] [place], [address] Creatinine [Mass/Vol] 5.28 mg/dL High 0.70-1.20 [facility] Comment on above: Performed By: #### L 500.2500 ####[facility] [address] [place], [address] ECRCL 14.90 ml/min Low 50-250 [facility] Comment on above: Performed By: #### L 500.2500 ####[facility] [address] [place], [address] GAP 15 Normal 5-15 [facility] Comment on above: Performed By: #### L 500.2500 ####[facility] [address] [place], [address] GFR/1.73 sq M.predicted among non-blacks MDRD (S/P/Bld) [Vol rate/Area] 11 mL/min/{1.73_m2} Low >60 [facility] Comment on above: Result Comment: mL/m in/1.73m2 CKD-EPI Creatinine Equation (2020) Performed By: #### L 500.2500 ####[facility] [address] [place], [address] Glucose [Mass/Vol] 155 mg/dL High 70-99 [facility] Comment on above: Performed By: #### L 500.2500 ####[facility] [address] [place], [address] Potassium [Moles/Vol] 3.2 mmol/L Low 3.3-5.1 [facility] Comment on above: Performed By: #### L 500.2500 ####[facility] [address] [place], [address] Sodium [Moles/Vol] 144 mmol/L Normal 133-145 [facility] Comment on above: Performed By: #### L 500.2500 ####[facility] [address] [place], [address] Urea nitrogen [Mass/Vol] 58 mg/dL High 4-19 [facility] Comment on above: Performed By: #### L 500.2500 ####[facility] [address] [place], [address] BUN/CRE 10.9 RATIO Normal 10-20 [facility] Comment on above: Performed By: #### L 500.2500, L100.0100 ####[facility] [address] [place], [address] Calcium [Mass/Vol] 6.8 mg/dL Low 7.6-11.0 [facility] Comment on above: Performed By: #### L 500.2500, L100.0100 ####[facility] [address] [place], [address] Chloride [Moles/Vol] 105 mmol/L Normal 98-108 [facility] Comment on above: Performed By: #### L 500.2500, L100.0100 ####[facility] [address] [place], [address] CO2 [Moles/Vol] 22.7 mmol/L Normal 21.0-32.0 [facility] Comment on above: Performed By: #### L 500.2500, L100.0100 ####[facility] [address] [place], [address] Creatinine [Mass/Vol] 5.19 mg/dL High 0.70-1.20 [facility] Comment on above: Performed By: #### L 500.2500, L100.0100 ####[facility] [address] [place], [address] ECRCL 15.16 ml/min Low 50-250 [facility] Comment on above: Performed By: #### L 500.2500, L100.0100 ####[facility] [address] [place], [address] GAP 15 Normal 5-15 [facility] Comment on above: Performed By: #### L 500.2500, L100.0100 ####[facility] [address] [place], [address] GFR/1.73 sq M.predicted among non-blacks MDRD (S/P/Bld) [Vol rate/Area] 11 mL/min/{1.73_m2} Low >60 [facility] Comment on above: Result Comment: mL/m in/1.73m2 CKD-EPI Creatinine Equation (2020) Performed By: #### L 500.2500, L100.0100 ####[facility] [address] [place], [address] Glucose [Mass/Vol] 216 mg/dL High 70-99 [facility] Comment on above: Performed By: #### L 500.2500, L100.0100 ####[facility] [address] [place], [address] Potassium [Moles/Vol] 3.5 mmol/L Normal 3.3-5.1 [facility] Comment on above: Performed By: #### L 500.2500, L100.0100 ####[facility] [address] [place], [address] Sodium [Moles/Vol] 143 mmol/L Normal 133-145 [facility] Comment on above: Performed By: #### L 500.2500, L100.0100 ####[facility] [address] [place], [address] Urea nitrogen [Mass/Vol] 57 mg/dL High 4-19 [facility] Comment on above: Performed By: #### L 500.2500, L100.0100 ####[facility] [address] [place], [address] BUN/CRE 11.6 RATIO Normal 10-20 [facility] Comment on above: Performed By: #### L 500.2500 ####[facility] [address] [place], [address] Calcium [Mass/Vol] 6.9 mg/dL Low 7.6-11.0 [facility] Comment on above: Performed By: #### L 500.2500 ####[facility] [address] [place], [address] Chloride [Moles/Vol] 103 mmol/L Normal 98-108 [facility] Comment on above: Performed By: #### L 500.2500 ####[facility] [address] [place], [address] CO2 [Moles/Vol] 24.6 mmol/L Normal 21.0-32.0 [facility] Comment on above: Performed By: #### L 500.2500 ####[facility] [address] [place], [address] Creatinine [Mass/Vol] 4.95 mg/dL High 0.70-1.20 [facility] Comment on above: Performed By: #### L 500.2500 ####[facility] [address] [place], [address] ECRCL 15.89 ml/min Low 50-250 [facility] Comment on above: Performed By: #### L 500.2500 ####[facility] [address] [place], [address] GAP 15 Normal 5-15 [facility] Comment on above: Performed By: #### L 500.2500 ####[facility] [address] [place], [address] GFR/1.73 sq M.predicted among non-blacks MDRD (S/P/Bld) [Vol rate/Area] 12 mL/min/{1.73_m2} Low >60 [facility] Comment on above: Result Comment: mL/m in/1.73m2 CKD-EPI Creatinine Equation (2020) Performed By: #### L 500.2500 ####[facility] [address] [place], [address] Glucose [Mass/Vol] 235 mg/dL High 70-99 [facility] Comment on above: Performed By: #### L 500.2500 ####[facility] [address] [place], [address] Potassium [Moles/Vol] 3.4 mmol/L Normal 3.3-5.1 [facility] Comment on above: Performed By: #### L 500.2500 ####[facility] [address] [place], [address] Sodium [Moles/Vol] 142 mmol/L Normal 133-145 [facility] Comment on above: Performed By: #### L 500.2500 ####[facility] [address] [place], [address] Urea nitrogen [Mass/Vol] 57 mg/dL High 4-19 [facility] Comment on above: Performed By: #### L 500.2500 ####[facility] [address] [place], [address] Bedside Glucoseon 08-12-2024 FINGERSTICK GLU 256 mg/dL High 74-106 [facility] Comment on above: Result Comment: ANABELLE GEMENT OF PATIENT CARE PER NURSING PROTOCOL Performed By: #### L 501.080 ####[facility] [address] [place], [address] FINGERSTICK GLU 161 mg/dL High 74-106 [facility] Comment on above: Result Comment: ANABELLE GEMENT OF PATIENT CARE PER NURSING PROTOCOL Performed By: #### L 501.080 ####[facility] [address] [place], [address] FINGERSTICK GLU 115 mg/dL High 74-106 [facility] Comment on above: Result Comment: ANAEBLLE GEMENT OF PATIENT CARE PER NURSING PROTOCOL Performed By: #### L 501.080 ####[facility] [address] [place], [address] FINGERSTICK GLU 152 mg/dL High 74-106 [facility] Comment on above: Result Comment: ANABELLE GEMENT OF PATIENT CARE PER NURSING PROTOCOL Performed By: #### L 501.080 ####[facility] [address] [place], [address] FINGERSTICK GLU 166 mg/dL High 74-106 [facility] Comment on above: Result Comment: ANABELLE GEMENT OF PATIENT CARE PER NURSING PROTOCOL Performed By: #### L 501.080 ####[facility] [address] [place], [address] FINGERSTICK GLU 186 mg/dL High -106 [facility] Comment on above: Result Comment: ANABELLE GEMENT OF PATIENT CARE PER NURSING PROTOCOL Performed By: #### L 501.080 ####[facility] [address] [place], [address] FINGERSTICK GLU 208 mg/dL High 74-106 [facility] Comment on above: Result Comment: ANABELLE GEMENT OF PATIENT CARE PER NURSING PROTOCOL Performed By: #### L 501.080 ####[facility] [address] [place], [address] FINGERSTICK GLU 221 mg/dL High 74-106 [facility] Comment on above: Result Comment: ANABELLE GEMENT OF PATIENT CARE PER NURSING PROTOCOL Performed By: #### L 501.080 ####[facility] [address] [place], [address] FINGERSTICK GLU 246 mg/dL High -106 [facility] Comment on above: Result Comment: ANABELLE GEMENT OF PATIENT CARE PER NURSING PROTOCOL Performed By: #### L 501.080 ####[facility] [address] [place], [address] FINGERSTICK GLU 225 mg/dL High 74-106 [facility] Comment on above: Result Comment: ANABELLE GEMENT OF PATIENT CARE PER NURSING PROTOCOL Performed By: #### L 501.080 ####[facility] [address] [place], [address] FINGERSTICK GLU 231 mg/dL High 74-106 [facility] Comment on above: Result Comment: ANABELLE GEMENT OF PATIENT CARE PER NURSING PROTOCOL Performed By: #### L 501.080 ####[facility] [address] [place], [address] FINGERSTICK GLU 218 mg/dL High 74-106 [facility] Comment on above: Result Comment: ANABELLE GEMENT OF PATIENT CARE PER NURSING PROTOCOL Performed By: #### L 501.080 ####[facility] [address] [place], [address] FINGERSTICK GLU 274 mg/dL High -106 [facility] Comment on above: Result Comment: ANABELLE GEMENT OF PATIENT CARE PER NURSING PROTOCOL Performed By: #### L 501.080 ####[facility] [address] [place], [address] Beta-Hydroxbytyrateon 2024 BETA-HYDROXYBUT 0.2 mmol/L Normal 0.0-0.3 [facility] Comment on above: Performed By: #### L 501.6901 ####[facility] [address] [place], [address] CBC W/Diff, Automatedon - Absolute Lymph 0.96 X10 3/uL Normal 0.83-4.51 [facility] Comment on above: Performed By: #### L 500.2500, L100.0100 ####[facility] [address] [place], [address] Absolute Neut 13.3 X10 3/uL High 2.0-7.7 [facility] Comment on above: Performed By: #### L 500.2500, L100.0100 ####[facility] [address] [place], [address] Basophils/100 WBC (Bld) 0.3 % Normal 0-1 [facility] Comment on above: Performed By: #### L 500.2500, L100.0100 ####[facility] [address] [place], [address] Eosinophils/100 WBC (Bld) 0.0 % Normal 0-5 [facility] Comment on above: Performed By: #### L 500.2500, L100.0100 ####[facility] [address] [place], [address] Erythrocyte distribution width (RBC) [Ratio] 13.3 % Normal 11.6-14.6 [facility] Comment on above: Performed By: #### L 500.2500, L100.0100 ####[facility] [address] [place], [address] Hematocrit (Bld) [Volume fraction] 28.7 % Low 40-54 [facility] Comment on above: Performed By: #### L 500.2500, L100.0100 ####[facility] [address] [place], [address] Hemoglobin (Bld) [Mass/Vol] 10.3 g/dL Low 13.0-16.5 [facility] Comment on above: Performed By: #### L 500.2500, L100.0100 ####[facility] [address] [place], [address] IG% 1.500 High 0.0-0.9 [facility] Comment on above: Result Comment: IG% - Immature Granulocytes (promyelocytes, myelocytes andmetamyelocytes) > 1% indicates that a LEFT SHIFT is Present. Performed By: #### L 500.2500, L100.0100 ####[facility] [address] [place], [address] Lymphocytes/100 WBC (Bld) 6.3 % Low 19-41 [facility] Comment on above: Performed By: #### L 500.2500, L100.0100 ####[facility] [address] [place], [address] MCH (RBC) [Entitic mass] 31.1 pg Normal 27.0-32.0 [facility] Comment on above: Performed By: #### L 500.2500, L100.0100 ####[facility] [address] [place], [address] MCHC (RBC) [Mass/Vol] 35.9 g/dL Normal 32-36 [facility] Comment on above: Performed By: #### L 500.2500, L100.0100 ####[facility] [address] [place], [address] MCV (RBC) [Entitic vol] 86.7 fL Normal 80-94 [facility] Comment on above: Performed By: #### L 500.2500, L100.0100 ####[facility] [address] [place], [address] Monocytes/100 WBC (Bld) 5.0 % Normal 0-10 [facility] Comment on above: Performed By: #### L 500.2500, L100.0100 ####[facility] [address] [place], [address] Neutrophils/100 WBC (Bld) 86.9 % High 47-70 [facility] Comment on above: Performed By: #### L 500.2500, L100.0100 ####[facility] [address] [place], [address] Nucleated RBC (Bld) [#/Vol] 0 10*3/uL Normal 0-5 [facility] Comment on above: Performed By: #### L 500.2500, L100.0100 ####[facility] [address] [place], [address] Platelet mean volume (Bld) [Entitic vol] 11.6 fL Normal 6.2-12.0 [facility] Comment on above: Performed By: #### L 500.2500, L100.0100 ####[facility] [address] [place], [address] Platelets (Bld) [#/Vol] 144 10*3/uL Low 150-450 [facility] Comment on above: Performed By: #### L 500.2500, L100.0100 ####[facility] [address] [place], [address] RBC (Bld) [#/Vol] 3.31 10*6/uL Low 4.6-6.2 [facility] Comment on above: Performed By: #### L 500.2500, L100.0100 ####[facility] [address] [place], [address] RDW SD 42.0 fl Normal 35.1-43.9 [facility] Comment on above: Performed By: #### L 500.2500, L100.0100 ####[facility] [address] [place], [address] WBC (Bld) [#/Vol] 15.3 10*3/uL High 4.4-11.0 [facility] Comment on above: Performed By: #### L 500.2500, L100.0100 ####[facility] [address] [place], [address] Consultation - Nephrologyon 08-12-2024 Consultation - Nephrology Normal [facility] EGD Reporton 08-12-2024 EGD Report Normal [facility] EGD Report Normal [facility] Kidney and Bladderon 025 Kidney and Bladder Normal [facility] Alcohol, Blood (Medical)-Ser umon 08-11-2024 SERUM ETOH < 10.1 Normal <=10.0 [facility] Comment on above: Result Comment: This test is for medical purposes only. The legaldefinition of intoxication varies according to local law. Performed By: #### L 501.9100, L501.9985 ####[facility] [address] [place], [address] Basic Metabolic Profile (BMP )on 08-11-2024 BUN/CRE 11.6 RATIO Normal 10-20 [facility] Comment on above: Order Comment: Call MD with results STAT Performed By: #### L 500.2500 ####[facility] [address] [place], [address] Calcium [Mass/Vol] 7.0 mg/dL Low 7.6-11.0 [facility] Comment on above: Order Comment: Call MD with results STAT Performed By: #### L 500.2500 ####[facility] [address] [place], [address] Chloride [Moles/Vol] 102 mmol/L Normal 98-108 [facility] Comment on above: Order Comment: Call MD with results STAT Performed By: #### L 500.2500 ####[facility] [address] [place], [address] CO2 [Moles/Vol] 24.9 mmol/L Normal 21.0-32.0 [facility] Comment on above: Order Comment: Call MD with results STAT Performed By: #### L 500.2500 ####[facility] [address] [place], [address] Creatinine [Mass/Vol] 4.78 mg/dL High 0.70-1.20 [facility] Comment on above: Order Comment: Call MD with results STAT Performed By: #### L 500.2500 ####[facility] [address] [place], [address] ECRCL 16.46 ml/min Low 50-250 [facility] Comment on above: Order Comment: Call MD with results STAT Performed By: #### L 500.2500 ####[facility] [address] [place], [address] GAP 16 High 5-15 [facility] Comment on above: Order Comment: Call MD with results STAT Performed By: #### L 500.2500 ####[facility] [address] [place], [address] GFR/1.73 sq M.predicted among non-blacks MDRD (S/P/Bld) [Vol rate/Area] 13 mL/min/{1.73_m2} Low >60 [facility] Comment on above: Order Comment: Call MD with results STAT Result Comment: mL/m in/1.73m2 CKD-EPI Creatinine Equation (2020) Performed By: #### L 500.2500 ####[facility] [address] [place], [address] Glucose [Mass/Vol] 353 mg/dL High 70-99 [facility] Comment on above: Order Comment: Call MD with results STAT Performed By: #### L 500.2500 ####[facility] [address] [place], [address] Potassium [Moles/Vol] 3.7 mmol/L Normal 3.3-5.1 [facility] Comment on above: Order Comment: Call MD with results STAT Performed By: #### L 500.2500 ####[facility] [address] [place], [address] Sodium [Moles/Vol] 142 mmol/L Normal 133-145 [facility] Comment on above: Order Comment: Call MD with results STAT Performed By: #### L 500.2500 ####[facility] [address] [place], [address] Urea nitrogen [Mass/Vol] 55 mg/dL High 4-19 [facility] Comment on above: Order Comment: Call MD with results STAT Performed By: #### L 500.2500 ####[facility] [address] [place], [address] BUN/CRE 12.3 RATIO Normal 10-20 [facility] Comment on above: Order Comment: Call MD with results STAT Performed By: #### L 500.2500 ####[facility] [address] [place], [address] Calcium [Mass/Vol] 7.0 mg/dL Low 7.6-11.0 [facility] Comment on above: Order Comment: Call MD with results STAT Performed By: #### L 500.2500 ####[facility] [address] [place], [address] Chloride [Moles/Vol] 100 mmol/L Normal 98-108 [facility] Comment on above: Order Comment: Call MD with results STAT Performed By: #### L 500.2500 ####[facility] [address] [place], [address] CO2 [Moles/Vol] 24.6 mmol/L Normal 21.0-32.0 [facility] Comment on above: Order Comment: Call MD with results STAT Performed By: #### L 500.2500 ####[facility] [address] [place], [address] Creatinine [Mass/Vol] 4.56 mg/dL High 0.70-1.20 [facility] Comment on above: Order Comment: Call MD with results STAT Performed By: #### L 500.2500 ####[facility] [address] [place], [address] ECRCL 17.25 ml/min Low 50-250 [facility] Comment on above: Order Comment: Call MD with results STAT Performed By: #### L 500.2500 ####[facility] [address] [place], [address] GAP 17 High 5-15 [facility] Comment on above: Order Comment: Call MD with results STAT Performed By: #### L 500.2500 ####[facility] [address] [place], [address] GFR/1.73 sq M.predicted among non-blacks MDRD (S/P/Bld) [Vol rate/Area] 13 mL/min/{1.73_m2} Low >60 [facility] Comment on above: Order Comment: Call MD with results STAT Result Comment: mL/m in/1.73m2 CKD-EPI Creatinine Equation (2020) Performed By: #### L 500.2500 ####[facility] [address] [place], [address] Glucose [Mass/Vol] 421 mg/dL High 70-99 [facility] Comment on above: Order Comment: Call MD with results STAT Performed By: #### L 500.2500 ####[facility] [address] [place], [address] Potassium [Moles/Vol] 4.0 mmol/L Normal 3.3-5.1 [facility] Comment on above: Order Comment: Call MD with results STAT Performed By: #### L 500.2500 ####[facility] [address] [place], [address] Sodium [Moles/Vol] 142 mmol/L Normal 133-145 [facility] Comment on above: Order Comment: Call MD with results STAT Performed By: #### L 500.2500 ####[facility] [address] [place], [address] Urea nitrogen [Mass/Vol] 56 mg/dL High 4-19 [facility] Comment on above: Order Comment: Call MD with results STAT Performed By: #### L 500.2500 ####[facility] [address] [place], [address] Glucose [Mass/Vol] 491 mg/dL Invalid Interpretation Code 70-99 [facility] Comment on above: Order Comment: Call MD with results STAT Result Comment: Crit ical Result(s) Called LMCCLUGGAGE at: 1721 by:CRSITOPHERMAN??Results read back by same.Critical Result(s) Called at: by:??Results read back bysame. AMENDED REPORT 08/11/24 1722 GLU previously reported as: 491 *H mg/dLCritical Result(s) Called LMCCLUGGAGE at: 1721 by:ANANDORKMAN??Results read back by same. Performed By: #### L 500.2500 ####[facility] [address] [place], [address] BUN/CRE 13.5 RATIO Normal 10-20 [facility] Comment on above: Order Comment: Call MD with results STAT Performed By: #### L 500.2500 ####[facility] [address] [place], [address] Calcium [Mass/Vol] 6.9 mg/dL Low 7.6-11.0 [facility] Comment on above: Order Comment: Call MD with results STAT Performed By: #### L 500.2500 ####[facility] [address] [place], [address] Chloride [Moles/Vol] 94 mmol/L Low 98-108 [facility] Comment on above: Order Comment: Call MD with results STAT Performed By: #### L 500.2500 ####[facility] [address] [place], [address] CO2 [Moles/Vol] 22.0 mmol/L Normal 21.0-32.0 [facility] Comment on above: Order Comment: Call MD with results STAT Performed By: #### L 500.2500 ####[facility] [address] [place], [address] Creatinine [Mass/Vol] 3.87 mg/dL High 0.70-1.20 [facility] Comment on above: Order Comment: Call MD with results STAT Performed By: #### L 500.2500 ####[facility] [address] [place], [address] ECRCL 21.17 ml/min Low 50-250 [facility] Comment on above: Order Comment: Call MD with results STAT Performed By: #### L 500.2500 ####[facility] [address] [place], [address] GAP 23 High 5-15 [facility] Comment on above: Order Comment: Call MD with results STAT Performed By: #### L 500.2500 ####[facility] [address] [place], [address] GFR/1.73 sq M.predicted among non-blacks MDRD (S/P/Bld) [Vol rate/Area] 17 mL/min/{1.73_m2} Low >60 [facility] Comment on above: Order Comment: Call MD with results STAT Result Comment: mL/m in/1.73m2 CKD-EPI Creatinine Equation (2020) Performed By: #### L 500.2500 ####[facility] [address] [place], [address] Glucose [Mass/Vol] 598 mg/dL Invalid Interpretation Code 70-99 [facility] Comment on above: Order Comment: Call MD with results STAT Result Comment: Crit ical Result(s) Called at 1220: by: ROBERT CHRISTENSEN. ??Results read back by same. Performed By: #### L 500.2500 ####[facility] [address] [place], [address] Potassium [Moles/Vol] 4.2 mmol/L Normal 3.3-5.1 [facility] Comment on above: Order Comment: Call MD with results STAT Performed By: #### L 500.2500 ####[facility] [address] [place], [address] Sodium [Moles/Vol] 139 mmol/L Normal 133-145 [facility] Comment on above: Order Comment: Call MD with results STAT Performed By: #### L 500.2500 ####[facility] [address] [place], [address] Urea nitrogen [Mass/Vol] 52 mg/dL High 4-19 [facility] Comment on above: Order Comment: Call MD with results STAT Performed By: #### L 500.2500 ####[facility] [address] [place], [address] BUN/CRE 13.4 RATIO Normal 10-20 [facility] Comment on above: Order Comment: Call MD with results STAT Performed By: #### L 500.2500, L501.6901 ####[facility] [address] [place], [address] Calcium [Mass/Vol] 7.0 mg/dL Low 7.6-11.0 [facility] Comment on above: Order Comment: Call MD with results STAT Performed By: #### L 500.2500, L501.6901 ####[facility] [address] [place], [address] Chloride [Moles/Vol] 86 mmol/L Low 98-108 [facility] Comment on above: Order Comment: Call MD with results STAT Performed By: #### L 500.2500, L501.6901 ####[facility] [address] [place], [address] CO2 [Moles/Vol] 12.7 mmol/L Low 21.0-32.0 [facility] Comment on above: Order Comment: Call MD with results STAT Performed By: #### L 500.2500, L501.6901 ####[facility] [address] [place], [address] Creatinine [Mass/Vol] 3.62 mg/dL High 0.70-1.20 [facility] Comment on above: Order Comment: Call MD with results STAT Performed By: #### L 500.2500, L501.6901 ####[facility] [address] [place], [address] ECRCL 22.63 ml/min Low 50-250 [facility] Comment on above: Order Comment: Call MD with results STAT Performed By: #### L 500.2500, L501.6901 ####[facility] [address] [place], [address] GAP 39 High 5-15 [facility] Comment on above: Order Comment: Call MD with results STAT Performed By: #### L 500.2500, L501.6901 ####[facility] [address] [facility] [address] GFR/1.73 sq M.predicted among non-blacks MDRD (S/P/Bld) [Vol rate/Area] 18 mL/min/{1.73_m2} Low >60 [facility] Comment on above: Order Comment: Call MD with results STAT Result Comment: mL/m in/1.73m2 CKD-EPI Creatinine Equation (2020) Performed By: #### L 500.2500, L501.6901 ####[facility] [address] [place], [address] Glucose [Mass/Vol] 760 mg/dL Invalid Interpretation Code 70-99 [facility] Comment on above: Order Comment: Call MD with results STAT Result Comment: Crit ical Result(s) Called at: by:??Results [facility].Critical Result(s) Called at: 0613 by:??LAKSHMI BECKR2. Results read back by same. Performed By: #### L 500.2500, L501.6901 ####[facility] [address] [place], [address] Potassium [Moles/Vol] 3.7 mmol/L Normal 3.3-5.1 [facility] Comment on above: Order Comment: Call MD with results STAT Performed By: #### L 500.2500, L501.6901 ####[facility] [address] [place], [address] Sodium [Moles/Vol] 137 mmol/L Normal 133-145 [facility] Comment on above: Order Comment: Call MD with results STAT Performed By: #### L 500.2500, L501.6901 ####[facility] [address] [place], [address] Urea nitrogen [Mass/Vol] 49 mg/dL High 4-19 [facility] Comment on above: Order Comment: Call MD with results STAT Performed By: #### L 500.2500, L501.6901 ####[facility] [address] [place], [address] BUN/CRE 13.4 RATIO Normal 10-20 [facility] Comment on above: Order Comment: Call MD with results STAT Performed By: #### L 500.2500 ####[facility] [address] [place], [address] Calcium [Mass/Vol] 6.9 mg/dL Low 7.6-11.0 [facility] Comment on above: Order Comment: Call MD with results STAT Performed By: #### L 500.2500 ####[facility] [address] [place], [address] Chloride [Moles/Vol] 82 mmol/L Low 98-108 [facility] Comment on above: Order Comment: Call MD with results STAT Performed By: #### L 500.2500 ####[facility] [address] [place], [address] CO2 [Moles/Vol] 10.1 mmol/L Low 21.0-32.0 [facility] Comment on above: Order Comment: Call MD with results STAT Performed By: #### L 500.2500 ####[facility] [address] [place], [address] Creatinine [Mass/Vol] 3.63 mg/dL High 0.70-1.20 [facility] Comment on above: Order Comment: Call MD with results STAT Performed By: #### L 500.2500 ####[facility] [address] [place], [address] ECRCL 22.57 ml/min Low 50-250 [facility] Comment on above: Order Comment: Call MD with results STAT Performed By: #### L 500.2500 ####[facility] [address] [place], [address] GAP 44 High 5-15 [facility] Comment on above: Order Comment: Call MD with results STAT Performed By: #### L 500.2500 ####[facility] [address] [place], [address] GFR/1.73 sq M.predicted among non-blacks MDRD (S/P/Bld) [Vol rate/Area] 18 mL/min/{1.73_m2} Low >60 [facility] Comment on above: Order Comment: Call MD with results STAT Result Comment: mL/m in/1.73m2 CKD-EPI Creatinine Equation (2020) Performed By: #### L 500.2500 ####[facility] [address] [place], [address] Glucose [Mass/Vol] 881 mg/dL Invalid Interpretation Code 70-99 [facility] Comment on above: Order Comment: Call MD with results STAT Result Comment: Crit ical Result(s) Called at:0253 by:??LAKSHMI SANCHEZ TO KRISTEN. Results read back by same. Performed By: #### L 500.2500 ####[facility] [address] [place], [address] Potassium [Moles/Vol] 3.7 mmol/L Normal 3.3-5.1 [facility] Comment on above: Order Comment: Call MD with results STAT Performed By: #### L 500.2500 ####[facility] [address] [place], [address] Sodium [Moles/Vol] 136 mmol/L Normal 133-145 [facility] Comment on above: Order Comment: Call MD with results STAT Performed By: #### L 500.2500 ####[facility] [address] [place], [address] Urea nitrogen [Mass/Vol] 49 mg/dL High 4-19 [facility] Comment on above: Order Comment: Call MD with results STAT Performed By: #### L 500.2500 ####[facility] [address] [place], [address] Bedside Glucoseon 08-11-2024 FINGERSTICK GLU 328 mg/dL High 74-106 [facility] Comment on above: Result Comment: ANABELLE GEMENT OF PATIENT CARE PER NURSING PROTOCOL Performed By: #### L 501.080 ####[facility] [address] [place], [address] FINGERSTICK GLU 345 mg/dL High 74-106 [facility] Comment on above: Result Comment: ANABELLE GEMENT OF PATIENT CARE PER NURSING PROTOCOL Performed By: #### L 501.080 ####[facility] [address] [place], [address] FINGERSTICK GLU 304 mg/dL High 74-106 [facility] Comment on above: Result Comment: ANABELLE GEMENT OF PATIENT CARE PER NURSING PROTOCOL Performed By: #### L 501.080 ####[facility] [address] [place], [address] FINGERSTICK GLU 327 mg/dL High 74-106 [facility] Comment on above: Result Comment: ANABELLE GEMENT OF PATIENT CARE PER NURSING PROTOCOL Performed By: #### L 501.080 ####[facility] [address] [place], [address] FINGERSTICK GLU 350 mg/dL High 74-[address] [place] [address] Comment on above: Result Comment: ANABELLE GEMENT OF PATIENT CARE PER NURSING PROTOCOL Performed By: #### L 501.080 ####[facility] [address] [place], [address] FINGERSTICK GLU 387 mg/dL High [facility]106 [facility] Comment on above: Result Comment: ANABELLE GEMENT OF PATIENT CARE PER NURSING PROTOCOL Performed By: #### L 501.080 ####[facility] [address] [place], [address] FINGERSTICK GLU 401 mg/dL High [address] [place] [address] Comment on above: Result Comment: ANABELLE GEMENT OF PATIENT CARE PER NURSING PROTOCOL Performed By: #### L 501.080 ####[facility] [address] [place], [address] FINGERSTICK GLU 447 mg/dL High -[address] [place] [address] Comment on above: Result Comment: ANABELLE GEMENT OF PATIENT CARE PER NURSING PROTOCOL Performed By: #### L 501.080 ####[facility] [address] [place], [address] FINGERSTICK GLU 433 mg/dL High [address] [place] [address] Comment on above: Result Comment: ANABELLE GEMENT OF PATIENT CARE PER NURSING PROTOCOL Performed By: #### L 501.080 ####[facility] [address] [place], [address] FINGERSTICK GLU 466 mg/dL Invalid Interpretation Code 74-[address] [place] [address] Comment on above: Result Comment: ANABELLE GEMENT OF PATIENT CARE PER NURSING PROTOCOL Performed By: #### L 501.080 ####[facility] [address] [place], [address] FINGERSTICK GLU 456 mg/dL Invalid Interpretation Code 74-106 [facility] Comment on above: Result Comment: ANABELLE GEMENT OF PATIENT CARE PER NURSING PROTOCOL Performed By: #### L 501.080 ####[facility] [address] [place], [address] FINGERSTICK GLU 438 mg/dL High [address] [place] [address] Comment on above: Result Comment: ANABELLE GEMENT OF PATIENT CARE PER NURSING PROTOCOL Performed By: #### L 501.080 ####[facility] [address] [place], [address] FINGERSTICK GLU > 500 Invalid Interpretation Code [address] [place] [address] Comment on above: Result Comment: Dr Olu de jesus FollowedMANAGEMENT OF PATIENT CARE PER NURSING PROTOCOL Performed By: #### L 501.080 ####[facility] [address] [place], [address] FINGERSTICK GLU 475 mg/dL Invalid Interpretation Code [address] [place] [address] Comment on above: Result Comment: Dr Olu de jesus FollowedMANAGEMENT OF PATIENT CARE PER NURSING PROTOCOL Performed By: #### L 501.080 ####[facility] [address] [place], [address] FINGERSTICK GLU 479 mg/dL Invalid Interpretation Code [address] [place] [address] Comment on above: Result Comment: ANABELLE GEMENT OF PATIENT CARE PER NURSING PROTOCOL Performed By: #### L 501.080 ####[facility] [address] [place], [address] FINGERSTICK GLU > 500 Invalid Interpretation Code [address] [place] [address] Comment on above: Result Comment: ANABELLE GEMENT OF PATIENT CARE PER NURSING PROTOCOL Performed By: #### L 501.080 ####[facility] [address] [place], [address] FINGERSTICK GLU > 500 Invalid Interpretation Code [address] [place] [address] Comment on above: Result Comment: Repe at TestMANAGEMENT OF PATIENT CARE PER NURSING PROTOCOL Performed By: #### L 501.080 ####[facility] [address] [place], [address] FINGERSTICK GLU > 500 Invalid Interpretation Code 74-106 [facility] Comment on above: Result Comment: Insu vince GivenMANAGEMENT OF PATIENT CARE PER NURSING PROTOCOL Performed By: #### L 501.080 ####[facility] [address] [place], [address] Beta-Hydroxbytyrateon 2024 BETA-HYDROXYBUT 13.1 mmol/L Normal 0.0-0.3 [facility] Comment on above: Performed By: #### L 500.2500, L501.6901 ####[facility] [address] [place], [address] Blood Gases by CPSon 025 ANTONIO TEST Positive Normal [facility] Comment on above: Performed By: #### L 9000.0800 ####[facility] [address] [place], [address] Base excess Calc (Bld) [Moles/Vol] -3 mmol/L Low -2 to +2 [facility] Comment on above: Performed By: #### L 9000.0800 ####[facility] [address] [place], [address] Blood Gas Type ART Normal [facility] Comment on above: Performed By: #### L 9000.0800 ####[facility] [address] [place], [address] CO2 [Moles/Vol] 23 mmol/L Normal [facility] Comment on above: Performed By: #### L 9000.0800 ####[facility] [address] [place], [address] FI02 35.0 Normal [facility] Comment on above: Performed By: #### L 9000.0800 ####[facility] [address] [place], [address] HCO3 (Bld) [Moles/Vol] 21.5 mmol/L Low 22-26 [facility] Comment on above: Performed By: #### L 9000.0800 ####[facility] [address] [place], [address] Mode AC Normal [facility] Comment on above: Performed By: #### L 9000.0800 ####[facility] [address] [place], [address] O2 Delivery Dev Adult Vent Normal [facility] Comment on above: Performed By: #### L 9000.0800 ####[facility] [address] [place], [address] pCO2 32.4 mmHg Low 35-45 [facility] Comment on above: Performed By: #### L 9000.0800 ####[facility] [address] [place], [address] PEEP 5 Normal [facility] Comment on above: Performed By: #### L 9000.0800 ####[facility] [address] [place], [address] pH (Bld) 7.43 [pH] Normal 7.35-7.45 [facility] Comment on above: Performed By: #### L 9000.0800 ####[facility] [address] [place], [address] PO2 81 mmHG Normal 75-100 [facility] Comment on above: Performed By: #### L 9000.0800 ####[facility] [address] [place], [address] RR 18 Normal [facility] Comment on above: Performed By: #### L 9000.0800 ####[facility] [address] [place], [address] SITE R Radial Normal [facility] Comment on above: Performed By: #### L 9000.0800 ####[facility] [address] [place], [address] SO2 96 Normal 95-99 [facility] Comment on above: Performed By: #### L 8999.0800 ####[facility] [address] [place], [address] Vt 500.0 mL Normal [facility] Comment on above: Performed By: #### L 8999.0800 ####[facility] [address] [place], [address] ANTONIO TEST N/A Normal [facility] Comment on above: Performed By: #### L 8999.0800 ####[facility] [address] [place], [address] Base excess Calc (Bld) [Moles/Vol] -19 mmol/L Low -2 to +2 [facility] Comment on above: Performed By: #### L 8999.0800 ####[facility] [address] [place], [address] Blood Gas Type ART Normal [facility] Comment on above: Performed By: #### L 8999.0800 ####[facility] [address] [place], [address] CO2 [Moles/Vol] 10 mmol/L Normal [facility] Comment on above: Performed By: #### L 8999.0800 ####[facility] [address] [place], [address] FI02 45.0 Normal [facility] Comment on above: Performed By: #### L 8999.0800 ####[facility] [address] [place], [address] HCO3 (Bld) [Moles/Vol] 9.4 mmol/L Low 22-26 [facility] Comment on above: Performed By: #### L 8999.08 ####[facility] [address] [place], [address] Mode AC Normal [facility] Comment on above: Performed By: #### L 0.0800 ####[facility] [address] [place], [address] O2 Delivery Dev Adult Vent Normal [facility] Comment on above: Performed By: #### L 8999.0800 ####[facility] [address] [place], [address] pCO2 24.7 mmHg Low 35-45 [facility] Comment on above: Performed By: #### L 0.0800 ####[facility] [address] [place], [address] PEEP 5 Normal [facility] Comment on above: Performed By: #### L 8999.0800 ####[facility] [address] [place], [address] pH (Bld) 7.19 [pH] Invalid Interpretation Code 7.35-7.45 [facility] Comment on above: Performed By: #### L 8999.0800 ####[facility] [address] [place], [address] PO2 121 mmHG High 75-100 [facility] Comment on above: Performed By: #### L 0.0800 ####[facility] [address] [place], [address] Read Back By Yes [facility] Comment on above: Performed By: #### L 8999.0800 ####[facility] [address] [place], [address] Abdi [facility] Comment on above: Performed By: #### L 0.0800 ####[facility] [address] [place], [address] RR 18 Normal [facility] Comment on above: Performed By: #### L 9000.0800 ####[facility] [address] [place], [address] SITE L Radial Normal [facility] Comment on above: Performed By: #### L 9000.0800 ####[facility] [address] [place], [address] SO2 98 Normal 95-99 [facility] Comment on above: Performed By: #### L 9000.0800 ####[facility] [address] [place], [address] Time Given 00:10:37 Normal [facility] Comment on above: Performed By: #### L 9000.0800 ####[facility] [address] [place], [address] Vt 500.0 mL Normal [facility] Comment on above: Performed By: #### L 9000.0800 ####[facility] [address] [place], [address] CBC W/Diff, Automatedon 04- PLT EST ADEQUATE Normal ADEQ [facility] Comment on above: Performed By: #### L 100.0100 ####[facility] [address] [place], [address] RED CELL MORPH NORM C+C Normal NORM C C [facility] Comment on above: Performed By: #### L 100.0100 ####[facility] [address] [place], [address] Absolute Lymph 1.97 X10 3/uL Normal 0.83-4.51 [facility] Comment on above: Performed By: #### L 100.0100 ####[facility] [address] [place], [address] Absolute Neut 15.6 X10 3/uL High 2.0-7.7 [facility] Comment on above: Performed By: #### L 100.0100 ####[facility] [address] [place], [address] CPK Total, Creatine Kinaseon 08-11-2024 CPK TOTAL 1589 U/L High 24-195 [facility] Comment on above: Performed By: #### L 506.0200, L503.0106, L501.3620, L500.4050, L503.6005, L501.9520, L501.5200, M200.1000 ####[facility] [address] [place], [address] Comprehensive Metabolic Prof ilon 08-11-2024 Albumin [Mass/Vol] 3.0 g/dL Low 3.4-4.8 [facility] Comment on above: Order Comment: Call MD with results STAT Performed By: #### L 506.0200, L503.0106, L501.3620, L500.4050, L503.6005, L501.9520, L501.5200, M200.1000 ####[facility] [address] [place], [address] Albumin/Globulin [Mass ratio] 1.4 {ratio} Normal 0.9-2.4 [facility] Comment on above: Order Comment: Call MD with results STAT Performed By: #### L 506.0200, L503.0106, L501.3620, L500.4050, L503.6005, L501.9520, L501.5200, M200.1000 ####[facility] [address] [place], [address] ALK PHOS 129 U/L Normal 40-129 [facility] Comment on above: Order Comment: Call MD with results STAT Performed By: #### L 506.0200, L503.0106, L501.3620, L500.4050, L503.6005, L501.9520, L501.5200, M200.1000 ####[facility] [address] [place], [address] ALT [Catalytic activity/Vol] 24 U/L Normal <=46 [facility] Comment on above: Order Comment: Call MD with results STAT Performed By: #### L 506.0200, L503.0106, L501.3620, L500.4050, L503.6005, L501.9520, L501.5200, M200.1000 ####[facility] [address] [place], [address] AST [Catalytic activity/Vol] 69 U/L High <=37 [facility] Comment on above: Order Comment: Call MD with results STAT Performed By: #### L 506.0200, L503.0106, L501.3620, L500.4050, L503.6005, L501.9520, L501.5200, M200.1000 ####[facility] [address] [place], [address] Bilirubin [Mass/Vol] 0.17 mg/dL Normal 0.00-1.30 [facility] Comment on above: Order Comment: Call MD with results STAT Performed By: #### L 506.0200, L503.0106, L501.3620, L500.4050, L503.6005, L501.9520, L501.5200, M200.1000 ####[facility] [address] [place], [address] BUN/CRE 12.8 RATIO Normal 10-20 [facility] Comment on above: Order Comment: Call MD with results STAT Performed By: #### L 506.0200, L503.0106, L501.3620, L500.4050, L503.6005, L501.9520, L501.5200, M200.1000 ####[facility] [address] [place], [place], [address] Calcium [Mass/Vol] 7.1 mg/dL Low 7.6-11.0 [facility] Comment on above: Order Comment: Call MD with results STAT Performed By: #### L 506.0200, L503.0106, L501.3620, L500.4050, L503.6005, L501.9520, L501.5200, M200.1000 ####[facility] [address] [place], [address] Chloride [Moles/Vol] 78 mmol/L Low 98-108 [facility] Comment on above: Order Comment: Call MD with results STAT Performed By: #### L 506.0200, L503.0106, L501.3620, L500.4050, L503.6005, L501.9520, L501.5200, M200.1000 ####[facility] [address] [place], [place], [address] CO2 [Moles/Vol] 6.8 mmol/L Invalid Interpretation Code 21.0-32.0 [facility] Comment on above: Order Comment: Call MD with results STAT Result Comment: Crit ical Result(s) Called at:0023 by: LAKSHMI SANCHEZ [place] [address].??Results read back by same.Critical Result(s) Called at: by:??Results [facility]. Performed By: #### L 506.0200, L503.0106, L501.3620, L500.4050, L503.6005, L501.9520, L501.5200, M200.1000 ####[facility] [address] [place], [address] Creatinine [Mass/Vol] 3.59 mg/dL High 0.70-1.20 [facility] Comment on above: Order Comment: Call with results STAT Performed By: #### L 506.0200, L503.0106, L501.3620, L500.4050, L503.6005, L501.9520, L501.5200, M200.1000 ####[facility] [address] [place], [address] ECRCL 22.82 ml/min Low 50-250 [facility] Comment on above: Order Comment: Call MD with results STAT Performed By: #### L 506.0200, L503.0106, L501.3620, L500.4050, L503.6005, L501.9520, L501.5200, M200.1000 ####[facility] [address] [place], [address] GAP 51 High 5-15 [facility] Comment on above: Order Comment: Call MD with results STAT Performed By: #### L 506.0200, L503.0106, L501.3620, L500.4050, L503.6005, L501.9520, L501.5200, M200.1000 ####[facility] [address] [place], [place], [address] GFR/1.73 sq M.predicted among non-blacks MDRD (S/P/Bld) [Vol rate/Area] 18 mL/min/{1.73_m2} Low >60 [facility] Comment on above: Order Comment: Call MD with results STAT Result Comment: mL/m in/1.73m2 CKD-EPI Creatinine Equation (2020) Performed By: #### L 506.0200, L503.0106, L501.3620, L500.4050, L503.6005, L501.9520, L501.5200, M200.1000 ####[facility] [address] [place], [address] Globulin (S) [Mass/Vol] 2.1 g/dL Low 2.2-4.2 [facility] Comment on above: Order Comment: Call MD with results STAT Performed By: #### L 506.0200, L503.0106, L501.3620, L500.4050, L503.6005, L501.9520, L501.5200, M200.1000 ####[facility] [address] [place], [address] Glucose [Mass/Vol] 982 mg/dL Invalid Interpretation Code 70-99 [facility] Comment on above: Order Comment: Call MD with results STAT Result Comment: Crit ical Result(s) Called at: 0032by:??LAKSHMI SANCHEZ TO JENELLEREMI. Results read back by same.Critical Result(s) Called at: by:??Results read back bysame. Performed By: #### L 506.0200, L503.0106, L501.3620, L500.4050, L503.6005, L501.9520, L501.5200, M200.1000 ####[facility] [address] [place], [address] Potassium [Moles/Vol] 4.0 mmol/L Normal 3.3-5.1 [facility] Comment on above: Order Comment: Call MD with results STAT Performed By: #### L 506.0200, L503.0106, L501.3620, L500.4050, L503.6005, L501.9520, L501.5200, M200.1000 ####[facility] [address] [place], [address] Sodium [Moles/Vol] 136 mmol/L Normal 133-145 [facility] Comment on above: Order Comment: Call MD with results STAT Performed By: #### L 506.0200, L503.0106, L501.3620, L500.4050, L503.6005, L501.9520, L501.5200, M200.1000 ####[facility] [address] [place], [address] T PROT 5.1 g/dL Low 5.9-8.4 [facility] Comment on above: Order Comment: Call MD with results STAT Performed By: #### L 506.0200, L503.0106, L501.3620, L500.4050, L503.6005, L501.9520, L501.5200, M200.1000 ####[facility] [address] [place], [address] Urea nitrogen [Mass/Vol] 46 mg/dL High 4-19 [facility] Comment on above: Order Comment: Call MD with results STAT Performed By: #### L 506.0200, L503.0106, L501.3620, L500.4050, L503.6005, L501.9520, L501.5200, M200.1000 ####[facility] [address] [place], [address] Consultation - Intensiviston 08-11-2024 Consultation - Agricultural Production Engineer Normal [facility] Folates,Serum (Folic Acid)on 08-11-2024 FOLATES,SERUM 15.20 ng/mL Normal 4.60-34.80 [facility] Comment on above: Order Comment: Call MD with results STATN Result Comment: Hemo lysis, Results will be affected, Requires Recollection. Performed By: #### L 506.0200, L503.0106, L501.3620, L500.4050, L503.6005, L501.9520, L501.5200, M200.1000 ####[facility] [address] [place], [address] Free T3on 08-11-2024 Free T3 [Mass/Vol] 1.0 pg/mL Low 2.18-3.98 [facility] Comment on above: Performed By: #### L 501.86519, L506.0400 ####[facility] [address] [place], [address] Glucoseon 08-11-2024 Glucose [Mass/Vol] 936 mg/dL Invalid Interpretation Code 70-99 [facility] Comment on above: Result Comment: Crit ical Result(s) Called at:0117 by:??[facility]. Results read back by same. Performed By: #### L 501.0100 ####[facility] [address] [place], [address] Gram Stainon 08-11-2024 GS Acceptable Specimen? Yes (<25 Epithelial cells per/lpf) Gram Stain 1+ Gram positive cocci Rare Gram positive rods Normal [facility] Comment on above: Performed By: #### M 100.2000, M100.2400 ####[facility] [address] [place], [address] Hemoglobin A1con 08-11-2024 HbA1c (Bld) [Mass fraction] 11.4 % High <=5.6 [facility] Comment on above: Result Comment: Norm al < 5.7 % Prediabetic 5.7 - 6.4 % Diabetic >or= 6.5 % Please note range changes. Performed By: #### L 501.9100, L501.9985 ####[facility] [address] [place], [address] Lactic Acidon 08-11-2024 Lactate [Moles/Vol] 3.4 mmol/L Invalid Interpretation Code 0.0-2.0 [facility] Comment on above: Order Comment: Y Result Comment: Crit ical Result(s) Called at 0757: by: ROBERT CHRISTENSEN. ??Results read back by same.Critical Result(s) Called at: by:??Results read back bysame. AMENDED REPORT 08/11/24 0809 LACTIC ACID previously reported as: 3.4 *H mmol/LCritical Result(s) Called at 0757: by: ROBERT CHRISTENSEN. ??Results read back by same. Performed By: #### L 503.6005 ####[facility] [address] [place], [address] Lactate [Moles/Vol] 2.9 mmol/L Invalid Interpretation Code 0.0-2.0 [facility] Comment on above: Result Comment: Crit ical Result(s) Called at: 0454 by:??LAKSHMI ACHARYA. Results read back by same. Performed By: #### L 503.6005 ####[facility] [address] [place], [address] Lactate [Moles/Vol] 2.4 mmol/L Invalid Interpretation Code 0.0-2.0 [facility] Comment on above: Order Comment: Comme nts: if result >2, system reflex orders 2nd test @ 4hrsY Result Comment: Crit ical Result(s) Called at: 0012 by: LAKSHMI SANCHEZ TO KRISTEN.??Results read back by same. Performed By: #### L 506.0200, L503.0106, L501.3620, L500.4050, L503.6005, L501.9520, L501.5200, M200.1000 ####[facility] [address] [place], [address] MR/CON.PCM.GIon 08-11-2024 MR/CON.PCM.GI Normal [facility] Magnesiumon 08-11-2024 Magnesium [Mass/Vol] 2.8 mg/dL High 1.5-2.2 [facility] Comment on above: Performed By: #### L 506.0200, L503.0106, L501.3620, L500.4050, L503.6005, L501.9520, L501.5200, M200.1000 ####[facility] [address] [place], [address] T4 Free Directon 08-11-2024 T4 FREE DIRECT 0.50 ng/dL Low 0.76-1.46 [facility] Comment on above: Performed By: #### L 501.68612, L506.0400 ####[facility] [address] [place], [address] Thyroid Stim Hormone (TSH)on 08-11-2024 TSH 10.600 uIU/mL High 0.300-4.200 [facility] Comment on above: Performed By: #### L 506.0200, L503.0106, L501.3620, L500.4050, L503.6005, L501.9520, L501.5200, M200.1000 ####[facility] [address] [place] [id number] Urine Drug Screen (VISTA)on 08-11-2024 AMPHETAMINES Negative Normal <1000 ng/mL [facility] Comment on above: Performed By: #### L 505.5000 ####[facility] [address] [place] [address] BARBITIURATES Negative Normal < 200 ng/mL [facility] Comment on above: Performed By: #### L 505.5000 ####[facility] [address] [place] [address] BENZODIAZIPINE Negative Normal < 200 ng/mL [facility] Comment on above: Performed By: #### L 505.5000 ####[facility] [address] [place] [address] BUP Ur Drug Scr Positive Normal < 200 ng/mL [facility] Comment on above: Result Comment: If c onfirmation testing is needed, a separate order will berequired to send out testing to the reference laboratory. Performed By: #### L 505.5000 ####[facility] [address] [place] [id number] COCAINE Negative Normal < 300 ng/mL [facility] Comment on above: Performed By: #### L 505.5000 ####[facility] [address] [place] [id number] Fentanyl Negative Normal [facility] Comment on above: Performed By: #### L 505.5000 ####[facility] [address] [place] [id number] METHADONE Negative Normal < 300 ng/mL [facility] Comment on above: Performed By: #### L 505.5000 ####[facility] [address] [place], [address] OPIATES Negative Normal < 300 ng/mL [facility] Comment on above: Performed By: #### L 505.5000 ####[facility] [address] [place], [address] OXYCODONE Negative Normal < 100 ng/mL [facility] Comment on above: Performed By: #### L 505.5000 ####[facility] [address] [place], [address] PCP Negative Normal < 25 ng/mL [facility] Comment on above: Performed By: #### L 505.5000 ####[facility] [address] [place], [address] THC Positive Normal < 50 ng/mL [facility] Comment on above: Result Comment: If c onfirmation testing is needed, a separate order will berequired to send out testing to the reference laboratory. Performed By: #### L 505.5000 ####[facility] [address] [place], [address] Vitamin B12on 08-11-2024 Cobalamin (Vitamin B12) [Mass/Vol] 1379 pg/mL High 180-914 [facility] Comment on above: Performed By: #### L 506.0200, L503.0106, L501.3620, L500.4050, L503.6005, L501.9520, L501.5200, M200.1000 ####[facility] [address] [place], [address] 12 Lead EKGon 08-10-2024 12 Lead EKG Normal [facility] Absolute neutrophil countOrd ered By: Jose Alfredo Valderrama on 08-10-2024 Neutrophils (Bld) [#/Vol] 20.6 10*3/uL High 2.0-7.7 [facility] Anion gap in Serum or Plasma Ordered By: Jose Alfredo Valderrama on 08-10-2024 Anion gap [Moles/Vol] 53 mmol/L High 5-15 [facility] Arterial patency Wrist arter y --pre arterial punctureOrdered By: Jose Alfredo Valderrama on 08-10-2024 Antonio Test N/A [facility] BUN/creatinine ratioOrdered By: Jose Alfredo Valderrama on 08-10-2024 Urea nitrogen/Creatinine [Mass ratio] 13.4 mg/mg 10- [facility] Base excess Calc (BldV) [Mol es/Vol]Ordered By: Jose Alfredo Valderrama on 08-10-2024 Blood Gas Base Excess -24 mmol/L Low -2-2 [facility] Basic Metabolic Profile (BMP )on 08-10-2024 CO2 [Moles/Vol] 6.3 mmol/L Invalid Interpretation Code 21.0-32.0 [facility] Comment on above: Result Comment: Crit ical [...] #### L 500.2500, L300.3900, L501.6901, L300.4310, L100.0100 ####[facility] [address] [place], [address] Glucose [Mass/Vol] 1336 mg/dL Invalid Interpretation Code 70-99 [facility] Comment on above: Result Comment: Crit ical [...] #### L 500.2500, L300.3900, L501.6901, L300.4310, L100.0100 ####[facility] [address] [place], [address] BUN Normal 4-19 [facility] Comment on above: Result Comment: DUPL ICATE Performed By: #### L 500.2500 ####[facility] [address] [place], [address] BUN/CRE Normal 10-20 [facility] Comment on above: Result Comment: DUPL ICATE Performed By: #### L 500.2500 ####[facility] [address] [place], [address] Calcium Normal 7.6-11.0 [facility] Comment on above: Result Comment: DUPL ICATE Performed By: #### L 500.2500 ####[facility] [address] [place], [address] CL Normal 98-108 [facility] Comment on above: Result Comment: DUPL ICATE Performed By: #### L 500.2500 ####[facility] [address] [place], [address] CO2 Normal 21.0-32.0 [facility] Comment on above: Result Comment: DUPL ICATE Performed By: #### L 500.2500 ####[facility] [address] [place], [address] CREAT,SERUM Normal 0.70-1.20 [facility] Comment on above: Result Comment: DUPL ICATE Performed By: #### L 500.2500 ####[facility] [address] [place], [address] eGFR Normal >60 [facility] Comment on above: Result Comment: DUPL ICATE Performed By: #### L 500.2500 ####[facility] [address] [place], [address] GAP Normal 5-15 [facility] Comment on above: Result Comment: DUPL ICATE Performed By: #### L 500.2500 ####[facility] [address] [place], [address] GLU Normal 70-99 [facility] Comment on above: Result Comment: DUPL ICATE Performed By: #### L 500.2500 ####[facility] [address] [place], [address] Potassium Normal 3.3-5.1 [facility] Comment on above: Result Comment: DUPL ICATE Performed By: #### L 500.2500 ####[facility] [address] [place], [address] Basic Metabolic Profile (BMP) Normal 133-145 [facility] Comment on above: Result Comment: DUPL ICATE Performed By: #### L 500.2500 ####[facility] [address] [place], [address] Basophil percentageOrdered B y: Jose Alfredo Valderrama on 08-10-2024 Basophils/100 WBC (Bld) 0.4 % 0-1 [facility] Bedside Glucoseon 08-10-2024 FINGERSTICK GLU > 500 Invalid Interpretation Code 74-106 [facility] Comment on above: Result Comment: Dr Olu de jesus FollowedMANAGEMENT OF PATIENT CARE PER NURSING PROTOCOL Performed By: #### L 501.080 ####[facility] [address] [place], [address] FINGERSTICK GLU > 500 Invalid Interpretation Code 74-106 [facility] Comment on above: Result Comment: Dr Olu de jesus FollowedMANAGEMENT OF PATIENT CARE PER NURSING PROTOCOL Performed By: #### L 501.080 ####[facility] [address] [place], [address] Beta hydroxybutyrate [Mass/V ol]Ordered By: Jose Alfredo Valderrama on 08-10-2024 Beta-Hydroxybutyric Acid mmol/L > 16.0 mmol/L 0.0-0.3 [facility] Beta-Hydroxbytyrateon 2024 BETA-HYDROXYBUT > 16.0 Normal 0.0-0.3 [facility] Comment on above: Performed By: #### L 500.2500, L300.3900, L501.6901, L300.4310, L100.0100 ####[facility] [address] [place], [address] Bilirubin Test strip Ql (U)O rdered By: Jose Alfredo Valderrama on 08-10-2024 Bilirubin Ql (U) Negative Negative [facility] Blood Gases by CPSon 025 ANTONIO TEST N/A Normal [facility] Comment on above: Performed By: #### L 9000.0800 ####[facility] [address] [place], [address] Base excess Calc (Bld) [Moles/Vol] -24 mmol/L Low -2 to +2 [facility] Comment on above: Performed By: #### L 9000.0800 ####[facility] [address] [place], [address] Blood Gas Type ART [facility] Comment on above: Performed By: #### L 9000.0800 ####[facility] [address] [place], [address] CO2 [Moles/Vol] 9 mmol/L [facility] Comment on above: Performed By: #### L 9000.0800 ####[facility] [address] [place], [address] FI02 100.0 [facility] Comment on above: Performed By: #### L 9000.0800 ####[facility] [address] [place], [address] HCO3 (Bld) [Moles/Vol] 7.6 mmol/L Low 22-26 [facility] Comment on above: Performed By: #### L 9000.0800 ####[facility] [address] [place], [address] Mode Not entered [facility] Comment on above: Performed By: #### L 9000.0800 ####[facility] [address] [place], [address] O2 Delivery Dev Bagging [facility] Comment on above: Performed By: #### L 9000.0800 ####[facility] [address] [place], [address] pCO2 33.9 mmHg Low 35-45 [facility] Comment on above: Performed By: #### L 9000.0800 ####[facility] [address] [place], [address] pH (Bld) 6.96 [pH] Invalid Interpretation Code 7.35-7.45 [facility] Comment on above: Performed By: #### L 9000.0800 ####[facility] [address] [place], [address] PO2 379 mmHG Invalid Interpretation Code 75-100 [facility] Comment on above: Performed By: #### L 9000.0800 ####[facility] [address] [place], [address] Read Back By Yes Normal [facility] Comment on above: Performed By: #### L 9000.0800 ####[facility] [address] [place], [address] Valderrama [facility] Comment on above: Performed By: #### L 9000.0800 ####[facility] [address] [place], [address] SITE L Radial Normal [facility] Comment on above: Performed By: #### L 9000.0800 ####[facility] [facility] [address] [place], [address] SO2 100 High 95-99 [facility] Comment on above: Performed By: #### L 9000.0800 ####[facility] [address] [place], [address] Time Given 18:47:46 [facility] Comment on above: Performed By: #### L 9000.0800 ####[facility] [address] [place], [address] Blood bicarbonate measuremen tOrdered By: Jose Alfredo Valderrama on 08-10-2024 Blood Gas Bicarbonate Actual 7.6 mmol/L Low - [facility] CBC W/Diff, Automatedon 04-1 SMEAR COMMENT SCANNED Normal [facility] Comment on above: Result Comment: NEUT ROPHILIA NOTED Performed By: #### L 500.2500, L300.3900, L501.6901, L300.4310, L100.0100 ####[facility] [address] [place], [address] CTA Chst, Abd, Pel W and/or WOon 08-10-2024 CTA Chst, Abd, Pel W and/or WO Normal [facility] CXR for Line Placementon CXR for Line Placement Normal [facility] Carbon dioxide, total [Moles /volume] in Central venous bloodOrdered By: Jose Alfredo Valderrama on 08-10-2024 CO2 [Moles/Vol] 6.3 mmol/L Low 21.0-32.0 [facility] Comment on above: Critical Result(s) C alled [...] (Portable)on Chest 1 View (Portable) Normal [facility] Chest 1 View (Portable) Normal [facility] Chloride assayOrdered By: Mo Valderrama on 08-10-2024 Chloride [Moles/Vol] 76 mmol/L Low 98-108 [facility] Determination of fraction of inspired oxygenOrdered By: Jose Alfredo Valderrama on 08-10-2024 Blood Gas Oxygen Percent 100.0 [facility] Emergency Department Summary on 08-10-2024 Emergency Department Summary Normal [facility] Eosinophil percentageOrdered By: Jose Alfredo Valderrama on 08-10-2024 Eosinophils/100 WBC (Bld) 0.0 % 0-5 [facility] Epithelial cells.renal LM.HP F (Urine sed) [#/Area]Ordered By: Jose Alfredo Valderrama on 08-10-2024 Urine Renal Epithelial Cells 0-5 SEEN /hpf 0-5 [facility] Epithelial cells.squamous LM Ql (Urine sed)Ordered By: Jose Alfredo Valderrama on 08-10-2024 Epithelial cells.squamous LM.HPF (Urine sed) [#/Area] 0 /[HPF] 0-5 [facility] Erythrocyte distribution wid th (RBC) [Ratio]Ordered By: Jose Alfredo Valderrama on 08-10-2024 Erythrocyte distribution width (RBC) [Entitic vol] 53.3 fL High 35.1-43.9 [facility] Erythrocyte distribution wid th ratioOrdered By: Jose Alfredo Valderrama on 08-10-2024 Erythrocyte distribution width (RBC) [Ratio] 13.2 % 11.6-14.6 [facility] Estimation of creatinine eric aranceOrdered By: Jose Alfredo Valderrama on 08-10-2024 Estimated Creatinine Clearance Calc 25.20 ml/min Low 50-250 [facility] GFR/1.73 sq M.predicted meet g non-blacks MDRD (S/P/Bld) [Vol rate/Area]Ordered By: Jose Alfredo Valderrama on 08-10-2024 Estimated GFR (MDRD) Non-Af Amer 20 Low >60 [facility] Comment on above: mL/min/1.73m2 CKD-EP I Creatinine Equation (2020) Glucoseon 08-10-2024 Glucose [Mass/Vol] 1039 mg/dL Invalid Interpretation Code [facility] Comment on above: Result Comment: Crit ical Result(s) Called at:2341 by:??LAKSHMI SANCHEZ TO RNMREMI. Results read back by same. Performed By: #### L 501.0100 ####[facility] [address] [place], [place], [address] Glucose [Mass/Vol] 1130 mg/dL Invalid Interpretation Code [facility] Comment on above: Result Comment: Crit ical Result(s) Called MMARTIN at: 2208 by:TASH??Results read back by same. Performed By: #### L 501.0100 ####[facility] [address] [place], [place], [address] Glucose Ql (U)Ordered By: Mo Valderrama on 08-10-2024 Glucose (U) [Mass/Vol] 1000 mg/dL High Normal [facility] Glucose measurement at [facility] deOrdered By: Jose Alfredo Valderrama on 08-10-2024 Bedside Glucose (Misc Panel) > 500 mg/dL High 74-106 [facility] Comment on above: Dr Klein FollowedMA NAGEMENT OF PATIENT CARE PER NURSING PROTOCOL H AND P Exam - Hospital[place] 08-10-2024 H&P Exam - Hospitalist Normal [facility] Hematocrit Auto (Bld) [Volum e fraction]Ordered By: Jose Alfredo Valderrama on 08-10-2024 Hematocrit (Bld) [Volume fraction] 37.7 % Low 40-54 [facility] Hemoglobin measurementOrdere d By: Jose Alfredo Valderrama on 08-10-2024 Hemoglobin (Bld) [Mass/Vol] 10.6 g/dL Low 13.0-16.5 [facility] Immature granulocytes/100 WB C Auto (Bld)Ordered By: Jose Alfredo Valderrama on 08-10-2024 Immature granulocytes/100 WBC (Bld) 3.700 % High 0.0-0.9 [facility] Comment on above: IG% - Immature Granu locytes (promyelocytes, myelocytes and metamyelocytes) > 1% indicates that a LEFT SHIFT is Present. International normalized rat io (INR) calculationOrdered By: Jose Alfredo Valderrama on 08-10-2024 INR Coag (Bld) [Relative time] 1.5 {INR} [facility] Ketones Test strip Ql (U)Ord ered By: Jose Alfredo Valderrama on 08-10-2024 Ketones Ql (U) 150 mg/dl Abnormal Negative [facility] Comment on above: CRITICAL VALUE *HCRI TICAL VALUE CALLED TO Arlene GARICA08/10/242051 Maggie Chaves.RESULTS READ BACK BY SAME. L499.0042on 08-10-2024 Trop T High Sen 42 ng/L High <=22 [facility] Comment on above: Performed By: #### L 499.0042 ####[facility] [address] [place], [address] L499.0043on 08-10-2024 Trop T High Sen 56 ng/L Invalid Interpretation Code <=22 [facility] Comment on above: Result Comment: Crit ical Result(s) Called at: 2323by:LAKSHMI SANCHEZ TO RNMWITUNKI.??Results read back by same. Performed By: #### L 499.0043 ####[facility] [address] [place], [address] L501.4021on 08-10-2024 Trop T High Sen 38 ng/L High <=22 [facility] Comment on above: Performed By: #### L 501.4021 ####[facility] [address] [place], [address] Lymphocytes Auto (Unsp spec) [#/Vol]Ordered By: Jose Alfredo Valderrama on 08-10-2024 Lymphocytes (Bld) [#/Vol] 1.99 10*3/uL 0.83-4.51 [facility] Lymphocytes/100 WBC Auto (Un sp spec)Ordered By: Jose Alfredo Valderrama on 08-10-2024 Lymphocytes/100 WBC (Bld) 8.1 % Low 19-41 [facility] MCV (mean corpuscular volume ) determinationOrdered By: Jose Alfredo Valderrama on 08-10-2024 MCV (RBC) [Entitic vol] 110.6 fL High 80-94 [facility] Manual differential comment James (Bld) [Interp]Ordered By: Jose Alfredo Valderrama on 08-10-2024 Differential Comment SCANNED [facility] Comment on above: NEUTROPHILIA NOTED Mean corpuscular hemoglobin (MCH) determinationOrdered By: Jose Alfredo Valderrama on 08-10-2024 MCH (RBC) [Entitic mass] 31.1 pg 27.0-32.0 [facility] Mean corpuscular hemoglobin concentration (MCHC) determinationOrdered By: Jose Alfredo Valderrama on 08-10-2024 MCHC (RBC) [Mass/Vol] 28.1 g/dL Low 32-36 [facility] Mean platelet volume determi nationOrdered By: Jose Alfredo Valderrama on 08-10-2024 Platelet mean volume (Bld) [Entitic vol] 12.8 fL High 6.2-12.0 [facility] Microscopic analysis of urin e for red blood cells (RBC)Ordered By: Jose Alfredo Valderrama on 08-10-2024 Urine RBC 0 SEEN /hpf 0-5 [facility] Monocyte percentageOrdered B y: Jose Alfredo Valderrama on 08-10-2024 Monocytes/100 WBC (Bld) 4.4 % 0-10 [facility] Mucus LM Ql (Urine sed)Order ed By: Jose Alfredo Valderrama on 08-10-2024 Mucus Ql (Urine sed) 0 SEEN /hpf [facility] Neutrophil percentageOrdered By: Jose Alfredo Valderrama on 08-10-2024 Neutrophils/100 WBC (Bld) 83.4 % High 47-70 [facility] Nitrite Test strip Ql (U)Ord ered By: Jose Alfredo Valderrama on 08-10-2024 Nitrite Ql (U) Negative Negative [facility] No Panel InformationOrdered By: Jose Alfredo Valderrama on 08-10-2024 Bld Gas Crit Called To/Read Back By Yes [facility] Blood Gas Notified Time 18:47:46 [facility] Blood Gas Notified Whom Dr Valderrama [facility] Blood Gas Sample Site L Radial [facility] Blood Gas Specimen Type ART [facility] Blood Gas Vent Mode Not entered [facility] Oxygen Delivery Device Bagging [facility] Nucleated red blood cell per centageOrdered By: Jose Alfredo Valderrama on 08-10-2024 Nucleated RBC/100 WBC (Bld) [Ratio] 0 % 0-5 [facility] Oxygen saturation measuremen tOrdered By: Jose Alfredo Valderrama on 08-10-2024 Blood Gas Oxygen Saturation 100 % High 95-99 [facility] Partial Thromboplast Timeon 08-10-2024 aPTT Coag (Bld) [Time] 32.9 s Normal 24.1-36.2 [facility] Comment on above: Performed By: #### L 500.2500, L300.3900, L501.6901, L300.4310, L100.0100 ####[facility] [address] [place], [place], [address] Partial pressure of carbon d ioxide measurementOrdered By: Jose Alfredo Valderrama on 08-10-2024 Arterial Blood Partial Pressure CO2 33.9 mmHg Low 35-45 [facility] Partial pressure of oxygen m easurementOrdered By: Jose Alfredo Valderrama on 08-10-2024 Arterial Blood Partial Pressure O2 379 mmHG High 75-100 [facility] Platelet countOrdered By: Mo Valderrama on 08-10-2024 Platelets (Bld) [#/Vol] 269 10*3/uL 150-450 [facility] Potassium (Unsp spec) [Mass/ Vol]Ordered By: Jose Alfredo Valderrama on 08-10-2024 Potassium [Moles/Vol] 5.8 mmol/L High 3.3-5.1 [facility] Comment on above: Hemolysis present, R esults could be affected. Protein Test strip Ql (U)Ord ered By: Jose Alfredo Valderrama on 08-10-2024 Protein Ql (U) 15 mg/dl High Negative [facility] Prothrombin Time w/INRon INR Coag (PPP) [Relative time] 1.5 {INR} Normal [facility] Comment on above: Performed By: #### L 500.2500, L300.3900, L501.6901, L300.4310, L100.0100 ####[facility] [address] [place], [address] PT Coag (PPP) [Time] 18.8 s High 11.7-14.9 [facility] Comment on above: Performed By: #### L 500.2500, L300.3900, L501.6901, L300.4310, L100.0100 ####[facility] [address] [place], [address] Prothrombin timeOrdered By: Jose Alfredo Valderrama on 08-10-2024 PT Coag (PPP) [Time] 18.8 s High 11.7-14.9 [facility] RBC Auto (Bld) [#/Vol]Ordere d By: Jose Alfredo Valderrama on 08-10-2024 RBC (Bld) [#/Vol] 3.41 10*6/uL Low 4.6-6.2 [facility] Serum creatinine measurement (mass/volume)Ordered By: Jose Alfredo Valderrama on 08-10-2024 Creatinine [Mass/Vol] 3.25 mg/dL High 0.70-1.20 [facility] Serum glucose measurement (m ass/volume)Ordered By: Jose Alfredo Valderrama on 08-10-2024 Glucose [Mass/Vol] 1130 mg/dL High 70-99 [facility] Comment on above: Critical Result(s) C denised MMARTIN at: 2208 by: TASH Results read back by same. Serum or plasma calcium jessica urement (mass/volume)Ordered By: Jose Alfredo Valderrama on 08-10-2024 Calcium [Mass/Vol] 7.4 mg/dL Low 7.6-11.0 [facility] Serum or plasma urea nitroge n measurement (mass/volume)Ordered By: Jose Alfredo Valderrama on 08-10-2024 Urea nitrogen [Mass/Vol] 44 mg/dL High 4-19 [facility] Sodium levelOrdered By: Jose Alfredo Valderrama on 08-10-2024 Sodium [Moles/Vol] 135 mmol/L 133-145 [facility] Total carbon dioxide measure mentOrdered By: Jose Alfredo Valderrama on 08-10-2024 Blood Gas Total CO2 9 mmol/L [facility] Troponin T.cardiac High sens itivity method [Mass/Vol]Ordered By: Jose Alfredo Valderrama on 08-10-2024 Troponin T High Sensitivity 2 Hour 42 ng/L High <22 [facility] Troponin T High Sensitivity 38 ng/L High <22 [facility] Type AND Screenon 08-10-2024 Ab SCREEN GEL Negative Normal [facility] Comment on above: Order Comment: Has p t arrived? YHGI Performed By: #### B TS ####[facility] [address] [place], [address] ABO and Rh group Nom (Bld) Blood group O Rh(D) negative Normal [facility] Comment on above: Order Comment: Has p t arrived? YHGI Performed By: #### B TS ####[facility] [address] [place], [address] Urinalysis, Completeon 08-10 EPI,RENAL 0-5 SEEN Normal 0-5 [facility] Comment on above: Order Comment: RICHIE TER SPECIMEN Performed By: #### L 400.0001 ####[facility] [address] [place], [address] WBC 0-5 SEEN Normal 0-5 [facility] Comment on above: Order Comment: RICHIE TER SPECIMEN Performed By: #### L 400.0001 ####[facility] [address] [place], [address] BACTERIA 0 SEEN Normal None Seen [facility] Comment on above: Order Comment: RICHIE TER SPECIMEN Performed By: #### L 400.0001 ####[facility] [address] [place], [address] EPI,SQUAMOUS 0 SEEN Normal 0-5 [facility] Comment on above: Order Comment: RICHIE TER SPECIMEN Performed By: #### L 400.0001 ####[facility] [address] [place], [address] Mucus Ql (Urine sed) 0 SEEN Normal [facility] Comment on above: Order Comment: RICHIE TER SPECIMEN Performed By: #### L 400.0001 ####[facility] [address] [place], [address] RBC 0 SEEN Normal 0-5 [facility] Comment on above: Order Comment: RICHIE TER SPECIMEN Performed By: #### L 400.0001 ####[facility] [address] [place], [place], [address] Urine blood detectionOrdered By: Jose Alfredo Valderrama on 08-10-2024 Urine Occult Blood Negative Negative [facility] Urine clarityOrdered By: Yudy Valderrama on 08-10-2024 Clarity (U) Clear Clear [facility] Urine color determinationOrd ered By: Jose Alfredo Valderrama on 08-10-2024 Color (U) Straw Yellow [facility] Urine leukocyte esterase det ection by dipstickOrdered By: Jose Alfredo Valderrama on 08-10-2024 Leukocyte esterase Test strip Ql (U) Negative Negative [facility] Urine pHOrdered By: Jose Alfredo ervin on 08-10-2024 pH (U) 6.0 [pH] 5.0 - 8.0 [facility] Urine sediment bacteria coun t by microscopy (number/high power field)Ordered By: Jose Alfredo Valderrama on 08-10-2024 Bacteria LM.HPF (Urine sed) [#/Area] 0 /[HPF] None Seen [facility] Urine specific gravity measu rementOrdered By: Jose Alfredo Valderrama on 08-10-2024 Specific gravity (U) [Rel density] 1.015 1.002-1.030 [facility] Urobilinogen Ql (U)Ordered B y: Jose Alfredo Valderrama on 08-10-2024 Urine Urobilinogen Normal mg/dl Normal [facility] White blood cell (WBC) count Ordered By: Jose Alfredo Valderrama on 08-10-2024 WBC (Bld) [#/Vol] 24.7 10*3/uL High 4.4-11.0 [facility] White blood cell countOrdere d By: Jose Alfredo Valderrama on 08-10-2024 Urine WBC 0-5 SEEN /hpf 0-5 [facility] aPTT Coag (PPP) [Time]Ordere d By: Jose Alfredo Valderrama on 08-10-2024 aPTT Coag (Bld) [Time] 32.9 s 24.1-36.2 [facility] pH (Unsp spec)Ordered By: Mo Valderrama on 08-10-2024 Blood Gas pH 6.96 Low 7.35-7.45 [facility] 36on 08-05-2024 36 Notes script faxed today [facility] 36 Fax notes and script d [facility] HEMOGLOBIN A1Con HbA1c (Bld) [Mass fraction] 10.6 % Abnormal - 5.7 % [facility] HbA1c (Bld) [Mass fraction]o n 08-05-2024 Interpretation and review of laboratory results Abnormal [facility] Office Visiton 08-05-2024 Follow-up visit [id number] Ganesh Bush 1955 M Date Provider Department Center 08/05/2024 ALBINA VERAS [facility] END None Family History Problem Relation Age of Onset High Blood Pressure Mother Cancer Father Family Status - Relation Status Age at Mother Alive Father Daughter Alive Daughter Alive Level of Service:87345 OK OFFICE/OUTPATIENT ESTABLISHED MOD MDM 30 MIN Reason for Visit and Comments: Follow-up [884622] Diabetes [34] Normal [facility] Progress Noteon 08-05-2024 Progress Note [facility] [address] [facility] [address] Dept: [phone] Dept Loc: [phone] Visit type: Established patient Reason for Visit: [...] Type 2 Diabetes mellitus with hyperglycemia and usp insulin use: Lab Results Component Value Date [...] with each sensor change for download. Diabetes TxVia screen Micro albu. Patient has not been [...] polyuria. PCP is Andrea Lr MD Initial [facility] endocrinology office visit: Before 12/13/2014 Last office visit: 05/27/2023 No significant Interval history Type of DM: 1 Onset :~2013 Complications: Cardiovascular -- No Statin Use -- Yes Retinopathy -- No Last KEVIN/Retina Eval: missed follow up at [facility] . Longer distance from home. Would like to be referred to ophthalmology in [place] Nephropathy -- No RONNIE/ARB Use -- Yes Polyneuropathy -- Yes Bilateral great toes Foot Exam: 11/13/2022 Obesity -- No Other -- No Pt complaints include: He is sick, has nasal drainage, cough, and feeling bad all over Was in the hospital for DKA last year, and vomiting Sensors are from [employer] and he needs to see us so thatt he can continue to get the devices Since last office visit denies new health problems, admits to hospitalizations, and admits to surgeries. Pt feels their blood sugars are unchanged since NANCI. Pt (more content not included)... Normal [facility] 36on 07-30-2024 36 Name of caller: Ganesh Contact phone number: [phone] Relationship to Patient: patient Provider: SANDRA Servin Practice: Endo Chief Complaint/Reason for Call: Patient is requesting a urine test for his appointment. He would like to complete it in the morning tomorrow. Please advise. Best time of day caller can be reached: Any Patient advised that office/PCP has 24-48 business hours to return their call: Yes [facility] Progress Noteon 07-30-2024 Progress Note Left message for patient that Microalbumin and Lipid panel ordered. Message was not clear to specify what type of urine test the patient was requesting. [facility] 36on 07-28-2024 36 That is the most rec ent visit (September 2023) , pt will be seen again on 08/05/24 by harvinder. Please advise and send notes to [facility] after the patients visit with harvinder in a week. [facility] 36 Message released to [employer] as written. [facility] stated they received requested clinical notes, but the date was for 10/01/23. Called to inquire if there was a sooner visit. [facility] was advised that was the most recent visit. [facility]'s further questions if applicable: No further questions. Were all questions from office addressed or relayed to the patient from encounter: N/A [facility] 36on 04-16-2024 36 See pended script [facility] 36 Called pt again and scheduled for 08/05/2024 with Albina Servin. Pt also placed on wait list for sooner appointment. [facility] 36on 04-14-2024 36 Called pt and left a message requesting that he call the office to schedule an appointment. Normal [facility] BASIC METABOLIC PANELon 10-2 Anion gap [Moles/Vol] 9 mmol/L Normal 3-13 [facility] Comment on above: Performed By: #### L AB15, ECR735, HYS203 ####Sports Management Intern: ENRIQUE JEAN BAPTISTE ([id number])[facility] (SBHLAB)[address] [place] [address] Calcium [Mass/Vol] 8.6 mg/dL Normal 8.4-10.4 [facility] Comment on above: Performed By: #### L AB15, EMU953, MFD711 ####[employer] Intern: ENRIQUE JEAN BAPTISTE ([id number])[facility] (SBHLAB)[address] Chloride [Moles/Vol] 103 mmol/L Normal 98-107 [facility] Comment on above: Performed By: #### L AB15, TRO205, YII901 ####[employer] Intern: ENRIQUE JEAN BAPTISTE ([id number])[facility] ([facility])[address] CO2 [Moles/Vol] 21 mmol/L Low 22-30 [facility] Comment on above: Performed By: #### L AB15, AJD857, UAN504 ####[employer] Intern: ENRIQUE JEAN BAPTISTE ([id number])[facility] DEVLINDiego (SBHLAB)[address] Creatinine [Mass/Vol] 0.54 mg/dL Low 0.66-1.25 [facility] Comment on above: Performed By: #### L AB15, OIP911, KPH503 ####[employer] Intern: ENRIQUE JEAN BAPTISTE ([id number])[facility] DEVLINDiego (SB[facility]AB)[address] GLOMERULAR FILTRATION RATE ML/MIN/1.73 SQ M.PREDICTED >90.0 Normal >60.0 [facility] Comment on above: Result Comment: Calc ulation based on the Chronic Kidney Disease Epidemiology Collaboration (CKD-EPI) equation refit without adjustment for race Performed By: #### L AB15, JYY605, JXZ020 ####[employer] Intern: ENRIQUE JEAN BAPTISTE ([id number])[facility] (SB[facility])[address] Glucose [Mass/Vol] 65 mg/dL Low 70-100 [facility] Comment on above: Performed By: #### L AB15, AYN351, REN025 ####[employer] Intern: ENRIQUE JEAN BAPTISTE ([id number])[facility] (SB[facility]AB)[address] Potassium [Moles/Vol] 3.0 mmol/L Low 3.5-5.1 [facility] Comment on above: Performed By: #### L AB15, RAS094, THD965 ####[employer] Intern: ENRIQUE JEAN BAPTISTE ([id number])[facility] [place] (SBHLAB)[address] Sodium [Moles/Vol] 133 mmol/L Low 135-145 [facility] Comment on above: Performed By: #### L AB15, UBX768, MHW254 ####Sports Management Intern: ENRIQUE JEAN BAPTISTE ([id number])[facility] (SBHLAB)[address] Urea nitrogen [Mass/Vol] 12 mg/dL Normal 9-20 [facility] Comment on above: Performed By: #### L AB15, BDC808, XEN647 ####[employer] Intern: ENRIQUE JEAN BAPTISTE ([id number])[facility] ([facility])[address] Basic metabolic 1998 panelon 02-17-2024 Anion gap [Moles/Vol] 9 mmol/L 3 - 13 mmol/L [facility] Calcium [Mass/Vol] 8.6 mg/dL 8.4 - 10. 4 mg/dL [facility] Chloride [Moles/Vol] 103 mmol/L 98 - 10 7 mmol/L [facility] CO2 [Moles/Vol] 21 mmol/L Low 22 - 30 mmol/L [facility] Creatinine [Mass/Vol] 0.54 mg/dL Low 0.66 - 1.25 mg/dL [facility] GFR/1.73 sq M.predicted (S/P/Bld) [Vol rate/Area] - PINF [facility] Comment on above: Calculation based on the Chronic Kidney Disease Epidemiology Collaboration (CKD-EPI) equation refit without adjustment for race Glucose [Mass/Vol] 65 mg/dL Low 70 - 100 mg/dL [facility] Potassium [Moles/Vol] 3 mmol/L Low 3.5 - 5.1 mmol/L [facility] Sodium [Moles/Vol] 133 mmol/L Low 135 - 145 mmol/L [facility] Urea nitrogen [Mass/Vol] 12 mg/dL 9 - 20 mg/dL [facility] CBC W Auto Differential pane l (Bld)on 02-17-2024 Basophils (Bld) [#/Vol] 0 10*3/uL 0.0 - 0.2 10*3/uL [facility] Basophils/100 WBC (Bld) 0.4 % 0.0 - 2.0 % [facility] Eosinophils (Bld) [#/Vol] 0.1 10*3/uL 0.0 - 0.5 10*3/uL [facility] Eosinophils/100 WBC (Bld) 0.7 % 0.0 - 6.0 % [facility] Erythrocyte distribution width (RBC) [Ratio] 13.1 % 11.5 - 15.0 % [facility] Hematocrit (Bld) [Volume fraction] 41.6 % 40.0 - 52.0 % [facility] Hemoglobin (Bld) [Mass/Vol] 14.2 g/dL 13.0 - 18.0 g/dL [facility] Immature granulocytes (Bld) [#/Vol] 0 10*3/uL NINF - 0.1 10*3/uL [facility] Immature granulocytes/100 WBC (Bld) 0.2 % 0.0 - 2.0 % [facility] Interpretation and review of laboratory results Abnormal [facility] Lymphocytes (Bld) [#/Vol] 2.2 10*3/uL 1.0 - 4.3 10*3/uL [facility] Lymphocytes/100 WBC (Bld) 20.2 % 15.0 - 45.0 % [facility] MCH (RBC) [Entitic mass] 30.8 pg 26.0 - 34.0 pg [facility] MCHC (RBC) [Mass/Vol] 34.1 % 30.5 - 36.0 % [facility] MCV (RBC) [Entitic vol] 90.2 fL 77.0 - 99.0 fL [facility] Monocytes (Bld) [#/Vol] 0.7 10*3/uL 0.0 - 0.9 10*3/uL [facility] Monocytes/100 WBC (Bld) 6.8 % 5.0 - 13.0 % [facility] Neutrophils (Bld) [#/Vol] 7.7 10*3/uL High 1.8 - 7.5 10*3/uL [facility] Neutrophils/100 WBC (Bld) 71.7 % 38.0 - 82.0 % [facility] Nucleated RBC/100 WBC (Bld) [Ratio] 0 % [facility] Platelet mean volume (Bld) [Entitic vol] 10.4 fL 9.0 - 12.7 fL [facility] Platelets (Bld) [#/Vol] 288 10*3/uL 140 - 440 10*3/uL [facility] RBC (Bld) [#/Vol] 4.61 10*6/uL 4.40 - 5.9 0 10*6/uL [facility] WBC (Bld) [#/Vol] 10.8 10*3/uL High 3.6 - 10.7 10*3/uL [facility] CBC WITH AUTO DIFFERENTIALon 02-17-2024 Basophils (Bld) [#/Vol] 0.0 10*3/uL Normal 0.0-0.2 [facility] Comment on above: Performed By: #### L [id number] ####Sports Management Intern: ENRIQUE JEAN BAPTISTE ([id number])[facility] (SBHLAB)[address] Basophils/100 WBC (Bld) 0.4 % Normal 0.0-2.0 S [facility] Comment on above: Performed By: #### L [id number] ####Sports Management Intern: ENRIQUE JEAN BAPTISTE ([id number])[facility] [place] (SBHLAB)[address] Eosinophils (Bld) [#/Vol] 0.1 10*3/uL Normal 0.0-0.5 [facility] Comment on above: Performed By: #### L [id number] ####Sports Management Intern: ENRIQUE JEAN BAPTISTE ([id number])[facility] [place] (SBHLAB)[address] Eosinophils/100 WBC (Bld) 0.7 % Normal 0.0-6.0 [facility] Comment on above: Performed By: #### L [id number] ####Sports Management Intern: ENRIQUE JEAN BAPTISTE ([id number])[facility] [place] (SBHLAB)[address] Erythrocyte distribution width (RBC) [Ratio] 13.1 % Normal 11.5-15.0 [facility] Comment on above: Performed By: #### L [id number] ####Sports Management Intern: ENRIQUE JEAN BAPTISTE ([id number])[facility] [place] (SBHLAB)[address] Hematocrit (Bld) [Volume fraction] 41.6 % Normal 40.0-52.0 [facility] Comment on above: Performed By: #### L [id number] ####Sports Management Intern: ENRIQUE JEAN BAPTISTE ([id number])[facility] [place] (SBHLAB)[address] [place] [address] Hemoglobin (Bld) [Mass/Vol] 14.2 g/dL Normal 13.0-18.0 [facility] Comment on above: Performed By: #### L [id number] ####Sports Management Intern: ENRIQUE JEAN BAPTISTE ([id number])[facility] [place] (SB[facility]AB)[address] IMMATURE GRANS % 0.2 % Normal 0.0-2.0 [facility] Comment on above: Performed By: #### L [id number] ####Sports Management Intern: ENRIQUE JEAN BAPTISTE ([id number])[facility] [place] (SB[facility]AB)[address] IMMATURE GRANS ABSOLUTE 0.0 10*3/uL Normal <0.1 [facility] Comment on above: Performed By: #### L [id number] ####Sports Management Intern: ENRIQUE JEAN BAPTISTE ([id number])[facility] [place] (SB[facility]AB)[address] Lymphocytes (Bld) [#/Vol] 2.2 10*3/uL Normal 1.0-4.3 [facility] Comment on above: Performed By: #### L [id number] ####Sports Management Intern: ENRIQUE JEAN BAPTISTE ([id number])[facility] (SBHLAB)[address] Lymphocytes/100 WBC (Bld) 20.2 % Normal 15.0-45.0 [facility] Comment on above: Performed By: #### L [id number] ####Sports Management Intern: ENRIQUE JEAN BAPTISTE ([id number])[facility] (SBHLAB)[address] MCH (RBC) [Entitic mass] 30.8 pg Normal 26.0-34.0 [facility] Comment on above: Performed By: #### L [id number] ####Sports Management Intern: ENRIQUE JEAN BAPTISTE ([id number])[facility] (SBHLAB)[address] [place] [address] MCHC 34.1 % Normal 30.5-36.0 [facility] Comment on above: Performed By: #### L [id number] ####Sports Management Intern: ENRIQUE JEAN BAPTISTE ([id number])[facility] (SBHLAB)[address] [place] [address] MCV (RBC) [Entitic vol] 90.2 fL Normal 77.0-99.0 S [facility] Comment on above: Performed By: #### L [id number] ####Sports Management Intern: ENRIQUE JEAN BAPTISTE ([id number])[facility] (SBHLAB)[address] [place] [address] Monocytes (Bld) [#/Vol] 0.7 10*3/uL Normal 0.0-0.9 [facility] Comment on above: Performed By: #### L [id number] ####Sports Management Intern: ENRIQUE JEAN BAPTISTE ([id number])[facility] (SBHLAB)[address] Monocytes/100 WBC (Bld) 6.8 % Normal 5.0-13.0 S [facility] Comment on above: Performed By: #### L [id number] ####Sports Management Intern: ENRIQUE JEAN BAPTISTE ([id number])[facility] [place] (SBHLAB)[address] NEUTROPHILS ABSOLUTE 7.7 10*3/uL High 1.8-7.5 [facility] Comment on above: Performed By: #### L [id number] ####Sports Management Intern: ENRIQUE GARCIAHEMANTH ([id number])[facility] [place] (SB[facility]AB)[address] Neutrophils/100 WBC (Bld) 71.7 % Normal 38.0-82.0 [facility] Comment on above: Performed By: #### L [id number] ####Sports Management Intern: ENRIQUE JEAN BAPTISTE ([id number])[facility] [place] (SB[facility])[address] NRBC 0.0 /100 WBCs Normal 0.0-2.0 [facility] Comment on above: Performed By: #### L [id number] ####Sports Management Intern: ENRIQUE JEAN BAPTISTE ([id number])[facility] [place] (SB[facility])[address] Platelet mean volume (Bld) [Entitic vol] 10.4 fL Normal 9.0-12.7 [facility] Comment on above: Performed By: #### L [id number] ####Sports Management Intern: ENRIQUE JEAN BAPTISTE ([id number])[facility] [place] (SBHLAB)[address] [place] [address] [place] Platelets (Bld) [#/Vol] 288 10*3/uL Normal 140-440 [facility] Comment on above: Performed By: #### L [id number] ####Sports Management Intern: ENRIQUE JEAN BAPTISTE ([id number])[facility] [place] (SB[facility]AB)[address] [place] [address] [place] RBC (Bld) [#/Vol] 4.61 10*6/uL Normal 4.40-5.90 [facility] Comment on above: Performed By: #### L [id number] ####Sports Management Intern: ENRIQUE JEAN BAPTISTE ([id number])[facility] [place] (SB[facility])[address] WBC (Bld) [#/Vol] 10.8 10*3/uL High 3.6-10.7 [facility] Comment on above: Performed By: #### L [id number] ####Sports Management Intern: ENRIQUE JEAN BAPTISTE ([id number])[facility] (SBHLAB)[address] Laboratory - Chemistry and C hemistry - challengeon 02-17-2024 Glucose [Mass/Vol] 151 mg/dL High 70 - 100 mg/dL [facility] Glucose [Mass/Vol] 107 mg/dL High 70 - 100 mg/dL [facility] Magnesium [Mass/Vol] 2.1 mg/dL 1.6 - 2 .3 mg/dL [facility] MAGNESIUMon 02-17-2024 Magnesium [Mass/Vol] 2.1 mg/dL Normal 1.6-2.3 [facility] Comment on above: Performed By: #### L AB15, IES016, [id number] ####Sports Management Intern: ENRIQUE JEAN BAPTISTE ([id number])[facility] UNIT[facility]go (SBHLAB)[address] [place] [address] Magnesium [Mass/Vol]on 02-16 Interpretation and review of laboratory results Normal [facility] No Panel Informationon 02-16 Interpretation and review of laboratory results Abnormal [facility] Performed by: [facility], [address] [place] [address] CLIA ID: [id number] [facility] Interpretation and review of laboratory results Abnormal [facility] Performed by: [facility], [address] [address] CLIA ID: [id number] [facility] Interpretation and review of laboratory results Abnormal [facility] PHOSPHORUSon 02-17-2024 Phosphate [Mass/Vol] 1.7 mg/dL Low 2.5-4.5 [facility] Comment on above: Performed By: #### L AB15, [id number], [id number] ####Sports Management Intern: ENRIQUE JEAN BAPTISTE ([id number])[facility] (SBHLAB)[address] [place] [address] [place] Phosphate [Moles/Vol]on 01-28 Phosphate [Mass/Vol] 1.7 mg/dL Low 2.5 - 4 .5 mg/dL [facility] BASIC METABOLIC PANELon 01-28 Anion gap [Moles/Vol] 8 mmol/L Normal 3-13 [facility] Comment on above: Performed By: #### L AB15, PBY209, PAJ982 ####Sports Management Intern: ENRIQUE JEAN BAPTISTE ([id number])[facility] [place] (SBHLAB)[address] Calcium [Mass/Vol] 7.8 mg/dL Low 8.4-10.4 [facility] Comment on above: Performed By: #### Benny AB15, [id number], XQY658 ####Sports Management Intern: ENRIQUE JEAN BAPTISTE ([id number])[facility] [place] (SBHLAB)[address] [place] [address] [place] Chloride [Moles/Vol] 104 mmol/L Normal 98-107 [facility] Comment on above: Performed By: #### L 15, [id number], WCK667 ####Sports Management Intern: ENRIQUE JEAN BAPTISTE ([id number])[facility] (SBHLAB)[address] [place] [address] [place] CO2 [Moles/Vol] 18 mmol/L Low 22-30 [facility] Comment on above: Performed By: #### L AB15, IBP794, MOU521 ####Sports Management Intern: ENRIQUE JEAN BAPTISTE ([id number])[facility] [place] (SBHLAB)[address] [place] [address] [place] Creatinine [Mass/Vol] 0.52 mg/dL Low 0.66-1.25 [facility] Comment on above: Performed By: #### L AB15, JKS365, TJB673 ####Sports Management Intern: ENRIQUE JEAN BAPTISTE ([id number])[facility] (SBHLAB)[address] [place] [address] [place] GLOMERULAR FILTRATION RATE ML/MIN/1.73 SQ M.PREDICTED >90.0 Normal >60.0 [facility] Comment on above: Result Comment: Calc ulation based on the Chronic Kidney Disease Epidemiology Collaboration (CKD-EPI) equation refit without adjustment for race Performed By: #### L AB15, TYS097, CRP137 ####Sports Management Intern: ENRIQUE JEAN BAPTISTE ([id number])[facility] (SB[facility]AB)[address] Glucose [Mass/Vol] 207 mg/dL High 70-100 [facility] Comment on above: Performed By: #### L AB15, UCS983, QLY339 ####Sports Management Intern: ENRIQUE JEAN BAPTISTE ([id number])[facility] (SBHLAB)[address] Potassium [Moles/Vol] 3.4 mmol/L Low 3.5-5.1 [facility] Comment on above: Performed By: #### L AB15, TXH489, BZH904 ####Sports Management Intern: ENRIQUE JEAN BAPTISTE ([id number])[facility] (SBHLAB)[address] [place] [address] [place] Sodium [Moles/Vol] 131 mmol/L Low 135-145 [facility] Comment on above: Performed By: #### L AB15, HPX243, MQO438 ####Sports Management Intern: ENRIQUE JEAN BAPTISTE ([id number])[facility] (SBHLAB)[address] [place] [address] [place] Urea nitrogen [Mass/Vol] 10 mg/dL Normal 9-20 [facility] Comment on above: Performed By: #### L AB15, RWH621, YTH337 ####Sports Management Intern: ENRIQUE JEAN BAPTISTE ([id number])[facility] (SB[facility]AB)[address] [place] [address] [place] Anion gap [Moles/Vol] 12 mmol/L Normal 3-13 [facility] Comment on above: Performed By: #### L [id number], RNK867, LAB15, IWI328 ####Sports Management Intern: ENRIQUE JEAN BAPTISTE ([id number])[facility] [place] (SB[facility])[address] Calcium [Mass/Vol] 8.3 mg/dL Low 8.4-10.4 [facility] Comment on above: Performed By: #### L [id number], AJX108, LAB15, YPK910 ####Sports Management Intern: ENRIQUE JEAN BAPTISTE ([id number])[facility] [place] (SB[facility])[address] Chloride [Moles/Vol] 101 mmol/L Normal 98-107 [facility] Comment on above: Performed By: #### L PG6233, LIT263, LAB15, CEE082 ####Sports Management Intern: ENRIQUE JEAN BAPTISTE ([id number])[facility] (SBHLAB)[address] CO2 [Moles/Vol] 19 mmol/L Low 22-30 [facility] Comment on above: Performed By: #### L [id number], JLV541, LAB15, NCB408 ####Sports Management Intern: ENRIQUE JEAN BAPTISTE ([id number])[facility] ([facility])[address] Creatinine [Mass/Vol] 0.51 mg/dL Low 0.66-1.25 [facility] Comment on above: Performed By: #### L UH3949, BPH802, LAB15, GPD232 ####Sports Management Intern: ENRIQUE JEAN BAPTISTE ([id number])[facility] (SBHLAB)[address] GLOMERULAR FILTRATION RATE ML/MIN/1.73 SQ M.PREDICTED >90.0 Normal >60.0 [facility] Comment on above: Result Comment: Calc ulation based on the Chronic Kidney Disease Epidemiology Collaboration (CKD-EPI) equation refit without adjustment for race ORDER COMMENTS: Slightly Hemolyzed Performed By: #### L [id number], ZRQ112, LAB15, AZR345 ####Sports Management Intern: ENRIQUE JEAN BAPTISTE ([id number])[facility]US[facility] (SBHLAB)[address] Glucose [Mass/Vol] 131 mg/dL High 70-100 [facility] Comment on above: Performed By: #### L [id number], ODB533, LAB15, LSZ738 ####Sports Management Intern: ENRIQUE JEAN BAPTISTE ([id number])[facility] (SB[facility]AB)[address] Potassium [Moles/Vol] 3.1 mmol/L Low 3.5-5.1 [facility] Comment on above: Performed By: #### L [id number], YYC314, LAB15, PMX954 ####Sports Management Intern: ENRIQUE JEAN BAPTISTE ([id number])[facility] (SB[facility]AB)[address] Sodium [Moles/Vol] 132 mmol/L Low 135-145 [facility] Comment on above: Performed By: #### L KF4922, NFM790, LAB15, IFF095 ####Sports Management Intern: ENRIQUE JEAN BAPTISTE ([id number])[facility] (SBHLAB)[address] Urea nitrogen [Mass/Vol] 13 mg/dL Normal - [facility] Comment on above: Performed By: #### L [id number], WGC560, LAB15, ARL631 ####Sports Management Intern: ENRIQUE JEAN BAPTISTE ([id number])[facility] (SBHLAB)[address] BETA HYDROXYBUTYRATEon 02-15 BETA HYDROXYBUTYRATE 1.58 mg/dL Normal 0.20-2.81 [facility] Comment on above: Performed By: #### L [id number], OJV743, LAB15, VRQ793 ####Sports Management Intern: ENRIQUE JEAN BAPTISTE ([id number])[facility] (SBHLAB)[address] Basic metabolic 1998 panelon 02-16-2024 Anion gap [Moles/Vol] 8 mmol/L 3 - 13 mmol/L [facility] Calcium [Mass/Vol] 7.8 mg/dL Low 8.4 - 10. 4 mg/dL [facility] Chloride [Moles/Vol] 104 mmol/L 98 - 10 7 mmol/L [facility] CO2 [Moles/Vol] 18 mmol/L Low 22 - 30 mmol/L [facility] Creatinine [Mass/Vol] 0.52 mg/dL Low 0.66 - 1.25 mg/dL [facility] GFR/1.73 sq M.predicted (S/P/Bld) [Vol rate/Area] - [facility] Comment on above: Calculation based on the Chronic Kidney Disease Epidemiology Collaboration (CKD-EPI) equation refit without adjustment for race Glucose [Mass/Vol] 207 mg/dL High 70 - 100 mg/dL [facility] Interpretation and review of laboratory results Abnormal [facility] Potassium [Moles/Vol] 3.4 mmol/L Low 3.5 - 5.1 mmol/L [facility] Sodium [Moles/Vol] 131 mmol/L Low 135 - 145 mmol/L [facility] Urea nitrogen [Mass/Vol] 10 mg/dL 9 - 20 mg/dL [facility] Anion gap [Moles/Vol] 12 mmol/L 3 - 13 mmol/L [facility] Calcium [Mass/Vol] 8.3 mg/dL Low 8.4 - 10. 4 mg/dL [facility] Chloride [Moles/Vol] 101 mmol/L 98 - 10 7 mmol/L [facility] CO2 [Moles/Vol] 19 mmol/L Low 22 - 30 mmol/L [facility] Creatinine [Mass/Vol] 0.51 mg/dL Low 0.66 - 1.25 mg/dL [facility] GFR/1.73 sq M.predicted (S/P/Bld) [Vol rate/Area] - [facility] Comment on above: Calculation based on the Chronic Kidney Disease Epidemiology Collaboration (CKD-EPI) equation refit without adjustment for race Glucose [Mass/Vol] 131 mg/dL High 70 - 100 mg/dL [facility] Interpretation and review of laboratory results Abnormal [facility] Potassium [Moles/Vol] 3.1 mmol/L Low 3.5 - 5.1 mmol/L [facility] Sodium [Moles/Vol] 132 mmol/L Low 135 - 145 mmol/L [facility] Urea nitrogen [Mass/Vol] 13 mg/dL 9 - 20 mg/dL [facility] 02-16-2024 [facility] Initi al Assessment Date: 02/16/2024 Patient Name: Ganesh Bush : 1955 Patient Information Source of Information: Patient Cognition/Language: WFL - Within Functional Limits Permission given to speak with patient circulation representative/caregive r as indicated: Confirmation of Payer with patient/family: Yes Payer Name: [facility] Medicare / Medicaid : No Confirmation [...] continue to follow. Manuel Nunez RN Normal [facility] CBC W Auto Differential pane l (Bld)Ordered By: Saniya Chong on 02-16-2024 Basophils (Bld) [#/Vol] 0 10*3/uL 0.0 - 0.2 10*3/uL [facility] Basophils/100 WBC (Bld) 0.2 % 0.0 - 2.0 % [facility] Eosinophils (Bld) [#/Vol] 0.1 10*3/uL 0.0 - 0.5 10*3/uL [facility] Eosinophils/100 WBC (Bld) 0.7 % 0.0 - 6.0 % [facility] Erythrocyte distribution width (RBC) [Ratio] 13.2 % 11.5 - 15.0 % [facility] Hematocrit (Bld) [Volume fraction] 39.3 % Low 40.0 - 52.0 % [facility] Hemoglobin (Bld) [Mass/Vol] 13.8 g/dL 13.0 - 18.0 g/dL [facility] Immature granulocytes (Bld) [#/Vol] 0 10*3/uL NINF - 0.1 10*3/uL [facility] Endra Immature granulocytes/100 WBC (Bld) 0.3 % 0.0 - 2.0 % [facility] Interpretation and review of laboratory results Abnormal [facility] Lymphocytes (Bld) [#/Vol] 1.5 10*3/uL 1.0 - 4.3 10*3/uL [facility] Lymphocytes/100 WBC (Bld) 11.6 % Low 15.0 - 45.0 % [facility] MCH (RBC) [Entitic mass] 31.4 pg 26.0 - 34.0 pg [facility] MCHC (RBC) [Mass/Vol] 35.1 % 30.5 - 36.0 % [facility] MCV (RBC) [Entitic vol] 89.5 fL 77.0 - 99.0 fL [facility] Monocytes (Bld) [#/Vol] 1 10*3/uL High 0.0 - 0.9 10*3/uL [facility] Monocytes/100 WBC (Bld) 7.4 % 5.0 - 13.0 % [facility] Neutrophils (Bld) [#/Vol] 10.4 10*3/uL High 1.8 - 7.5 10*3/uL [facility] Neutrophils/100 WBC (Bld) 79.8 % 38.0 - 82.0 % [facility] Nucleated RBC/100 WBC (Bld) [Ratio] 0 % [facility] Platelet mean volume (Bld) [Entitic vol] 10.6 fL 9.0 - 12.7 fL [facility] Platelets (Bld) [#/Vol] 278 10*3/uL 140 - 440 10*3/uL [facility] RBC (Bld) [#/Vol] 4.39 10*6/uL Low 4.40 - 5.9 0 10*6/uL [facility] WBC (Bld) [#/Vol] 13 10*3/uL High 3.6 - 10.7 10*3/uL [facility] CBC WITH AUTO DIFFERENTIALon 02-16-2024 Basophils (Bld) [#/Vol] 0.0 10*3/uL Normal 0.0-0.2 [facility] Comment on above: Performed By: #### L [id number] ####Sports Management Intern: ENRIQUE JEAN BAPTISTE ([phone])[facility] ([facility] [place] [address] Basophils/100 WBC (Bld) 0.2 % Normal 0.0-2.0 S [facility] Comment on above: Performed By: #### L [id number] ####Sports Management Intern: ENRIQUE JEAN BAPTISTE ([id number])[facility] ([facility])[address] Eosinophils (Bld) [#/Vol] 0.1 10*3/uL Normal 0.0-0.5 [facility] Comment on above: Performed By: #### L [id number] ####Sports Management Intern: ENRIQUE JEAN BAPTISTE ([id number])[facility] (SBHLAB)[address] [place] [address] Eosinophils/100 WBC (Bld) 0.7 % Normal 0.0-6.0 [facility] Comment on above: Performed By: #### L [id number] ####Sports Management Intern: ENRIQUE JEAN BAPTISTE ([id number])[facility] (SBAB)[address] Erythrocyte distribution width (RBC) [Ratio] 13.2 % Normal 11.5-15.0 [facility] Comment on above: Performed By: #### L [id number] ####Sports Management Intern: ENRIQUE JEAN BAPTISTE ([id number])[facility] ([facility] [place] [address] Hematocrit (Bld) [Volume fraction] 39.3 % Low 40.0-52.0 [facility] Comment on above: Performed By: #### L [id number] ####Sports Management Intern: ENRIQUE JEAN BAPTISTE ([id number])[facility] ([facility] [place] [address] Hemoglobin (Bld) [Mass/Vol] 13.8 g/dL Normal 13.0-18.0 [facility] Comment on above: Performed By: #### L [id number] ####Sports Management Intern: ENRIQUE JEAN BAPTISTE ([id number])[facility] ([facility])[address] IMMATURE GRANS % 0.3 % Normal 0.0-2.[address] [facility] Comment on above: Performed By: #### L [id number] ####Sports Management Intern: ENRIQUE JEAN BAPTISTE ([id number])[facility] ([facility] IMMATURE GRANS ABSOLUTE 0.0 10*3/uL Normal <0.1 [facility] Comment on above: Performed By: #### L [id number] ####Sports Management Intern: ENRIQUE JEAN BAPTISTE ([id number])[facility] ([facility])[address] Lymphocytes (Bld) [#/Vol] 1.5 10*3/uL Normal 1.0-4.3 [facility] Comment on above: Performed By: #### L [id number] ####Sports Management Intern: ENRIQUE JEAN BAPTISTE ([id number])[facility] (SBHLAB)[address] Lymphocytes/100 WBC (Bld) 11.6 % Low 15.0-45.0 [facility] Comment on above: Performed By: #### L [id number] ####Sports Management Intern: ENRIQUE JEAN BAPTISTE ([id number])[facility] [place] (SBHLAB)[address] MCH (RBC) [Entitic mass] 31.4 pg Normal 26.0-34.0 [facility] Comment on above: Performed By: #### L [id number] ####Sports Management Intern: ENRIQUE JEAN BAPTISTE ([id number])[facility] (SBHLAB)[address] MCHC 35.1 % Normal 30.5-36.0 [facility] Comment on above: Performed By: #### L [id number] ####Sports Management Intern: ENRIQUE JEAN BAPTISTE ([id number])[facility] (SBHLAB)[address] MCV (RBC) [Entitic vol] 89.5 fL Normal 77.0-99.0 S [facility] Comment on above: Performed By: #### L [id number] ####Sports Management Intern: ENRIQUE JEAN BAPTISTE ([id number])[facility] (SBHLAB)[address] Monocytes (Bld) [#/Vol] 1.0 10*3/uL High 0.0-0.9 [facility] Comment on above: Performed By: #### L [id number] ####Sports Management Intern: ENRIQUE JEAN BAPTISTE ([id number])[facility] (SBHLAB)[address] [place] [address] [place] Monocytes/100 WBC (Bld) 7.4 % Normal 5.0-13.0 S [facility] Comment on above: Performed By: #### L [id number] ####Sports Management Intern: ENRIQUE JEAN BAPTISTE ([id number])[facility] [place] (SBHLAB)[address] NEUTROPHILS ABSOLUTE 10.4 10*3/uL High 1.8-7.5 [facility] Comment on above: Performed By: #### L [id number] ####Sports Management Intern: ENRIQUE JEAN BAPTISTE ([id number])[facility] [place] (SBHLAB)[address] Neutrophils/100 WBC (Bld) 79.8 % Normal 38.0-82.0 [facility] Comment on above: Performed By: #### L [id number] ####Sports Management Intern: ENRIQUE JEAN BAPTISTE ([id number])[facility] [place] (SBHLAB)[address] NRBC 0.0 /100 WBCs Normal 0.0-2.0 [facility] Comment on above: Performed By: #### L [id number] ####Sports Management Intern: ENRIQUE JEAN BAPTISTE ([id number])[facility] [place] (SBHLAB)155 [place] [address] [place] Platelet mean volume (Bld) [Entitic vol] 10.6 fL Normal 9.0-12.7 [facility] Comment on above: Performed By: #### L [id number] ####Sports Management Intern: ENRIQUE JEAN BAPTISTE ([id number])[facility] [place] (SBHLAB)[address] [place] [address] [place] Platelets (Bld) [#/Vol] 278 10*3/uL Normal 140-440 [facility] Comment on above: Performed By: #### L [id number] ####Sports Management Intern: ENRIQUE JEAN BAPTISTE ([id number])[facility] (SBHLAB)[address] RBC (Bld) [#/Vol] 4.39 10*6/uL Low 4.40-5.90 [facility] Comment on above: Performed By: #### L [id number] ####Sports Management Intern: ENRIQUE JEAN BAPTISTE ([id number])[facility] [place] (SBHLAB)[address] WBC (Bld) [#/Vol] 13.0 10*3/uL High 3.6-10.7 [facility] Comment on above: Performed By: #### L [id number] ####Sports Management Intern: ENRIQUE JEAN BAPTISTE ([id number])[facility] (SBHLAB)[address] [place] [address] Consulton 02-16-2024 Consult Nutrition Assessment Type and [...] intake (Comment) (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 male admits with nausea and vomiting, dehydration, DKA. pt reports n/v improved and tolerated breakfast today. 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 Pt declines need for diet review at this time states he is familiar with CHO controlled diet but admits to non-compliance pt declines written diet materials. bed scale wt 172 lb Estimated Daily Nutrient Needs: Energy Requirements Based On: Kcal/kg Weight Used for Energy Requirements: [place] Weight for Energy Calculation (kg): 75 kg Total Energy Requirements (kcals/day): 9429-2956 (25-30) Weight Used for Protein Requirements: [place] Weight in Kg Used for Protein Requirements: [...] wt hx) % Weight Change (Calculated): -9.5 [place] Body Weight (lbs) (Calculated): 166 lbs [place] Body Weight (Kg) (Calculated): 75 kg % [place] Body Weight (Calculated): 103.6 % BMI (kg/m2) [...] Continue current diet Nadja Cisse RD Contact: *[phone] or via Secure Chat [facility] ECG 12-LEADon 02-16-2024 ECG 12-LEAD IMPRESSION: Sinus rhythm Compared to ECG 08/14/22 No significant change Electronically Signed On 02-16-2024 04:59:57 EDT by Kendell Wong [facility] IDNon 02-16-2024 IDN The patient is Moderately [...] of glucose balance is achieved Outcome: Progressing [facility] IDN The patient is Moderately Unstable - [...] of glucose balance is achieved Outcome: Progressing [facility] Laboratory - Chemistry and C hemistry - challengeon 02-16-2024 Glucose [Mass/Vol] 202 mg/dL High 70 - 100 mg/dL [facility] Glucose [Mass/Vol] 101 mg/dL High 70 - 100 mg/dL [facility] Glucose [Mass/Vol] 90 mg/dL 70 - 100 mg/dL [facility] Magnesium [Mass/Vol] 1.8 mg/dL 1.6 - 2 .3 mg/dL [facility] Glucose [Mass/Vol] 186 mg/dL High 70 - 100 mg/dL [facility] Glucose [Mass/Vol] 109 mg/dL High 70 - 100 mg/dL [facility] Glucose [Mass/Vol] 92 mg/dL 70 - 100 mg/dL [facility] Beta hydroxybutyrate [Mass/Vol] 1.58 mg/dL 0.20 - 2.81 mg/dL [facility] Magnesium [Mass/Vol] 2 mg/dL 1.6 - 2 .3 mg/dL [facility] Glucose [Mass/Vol] 121 mg/dL High 70 - 100 mg/dL [facility] Laboratory - Drug toxicology Ordered By: Shraddha Nurse on 02-16-2024 Amphetamines Ql (U) Negative Negative [facility] Barbiturates screen method Nom (U) Negative Negative [facility] Benzodiazepines screen method Nom (U) Negative Negative [facility] Cocaine Ql (U) Negative Negative [facility] th Ethanol [Mass/Vol] Negative Negative [facility] Methadone Ql (U) Negative Negative [facility] alth Opiates Screen Ql (U) Negative Negative [facility] MAGNESIUMon 02-16-2024 Magnesium [Mass/Vol] 1.8 mg/dL Normal 1.6-2.3 [facility] Comment on above: Performed By: #### L AB15, [id number], [id number] ####Sports Management Intern: ENRIQUE JEAN BAPTISTE ([id number])[facility] (SBAB)[address] Magnesium [Mass/Vol] 2.0 mg/dL Normal 1.6-2.3 [facility] Comment on above: Result Comment: KAMALA Mcdaniels COMMENTS: Slightly Hemolyzed Performed By: #### L [id number], [id number], LAB15, [id number] ####Sports Management Intern: ENRIQUE JEAN BAPTISTE ([id number])[facility] (SBAB)[address] No Panel Informationon 02-15 Interpretation and review of laboratory results Abnormal [facility] Performed by: [facility], [address] [facility], [facility] [address] CLIA ID: [id number] [facility] Interpretation and review of laboratory results Abnormal [facility] Performed by: [facility], [address] [facility] [address] [address]IA ID: [id number] [facility] Interpretation and review of laboratory results Normal [facility] Performed by: [facility], [address] [facility] [address] [address] ID: [id number] [facility] Interpretation and review of laboratory results Normal [facility] Interpretation and review of laboratory results Abnormal [facility] Performed by: [facility], [address] [place] [address] CLIA ID: [id number] [facility] Interpretation and review of laboratory results Abnormal [facility] Performed by: [facility], [address] [facility] [address] CLIA ID: [id number] [facility] Sinus rhythm Compared to ECG 08/14/22 No significant change Electronically Signed On 02-16-2024 04:59:57 EDT by Kendell Florian D O - 02/16/2024 IMPRESSION: Sinus rhythm Compared to ECG 08/14/22 No significant change Electronically Signed On 02-16-2024 04:59:57 EDT by Kendell Wong [facility] Interpretation and review of laboratory results Normal [facility] Performed by: [facility], [address] [place] [address] CLIA ID: [id number] [facility] Interpretation and review of laboratory results Normal [facility] Interpretation and review of laboratory results Normal [facility] Slightly Hemolyzed [facility] Interpretation and review of laboratory results Abnormal [facility] Performed by: [facility], [address] [facility] [address] CLIA ID: [id number] [facility] No Panel InformationOrdered By: Shraddha Curtis on 02-16-2024 BUPRENORPHINE SCREEN Positive Negative [facility] FENTANYL Positive Negative [facility] OXYCODONE/OXYMORPHONE Negative Negative [facility] PCP Negative Negative [facility] THC Negative Negative [facility] The expected value f or the drugs [...] treatment only. Analysis performed using non-forensic procedures. [facility] No Panel InformationOrdered By: Kendell Wong on 02-16-[address] [facility] Work Phone: OK Interval [address] [facility] Work Phone: QRS [address] [facility] Work Phone: QRSD Interval 100 ms [facility] [employer] Work Phone: QT Interval [address] [facility] Work Phone: QTC Interval [address] [facility] Work Phone: T Wave Hardy 54 degrees [facility] Work Phone: [facility] Work Phone: PHOSPHORUSon 02-16-2024 Phosphate [Mass/Vol] 2.7 mg/dL Normal 2.5-4.5 [facility] Comment on above: Performed By: #### L AB15, [id number], MDY190 ####Sports Management Intern: ENRIQUE JEAN BAPTISTE ([id number])[facility] (SBHLAB)[address] [place] [address] Phosphate [Mass/Vol] 2.6 mg/dL Normal 2.5-4.5 [facility] Comment on above: Result Comment: ORDE R COMMENTS: Slightly Hemolyzed Performed By: #### L [id number], LTC575, LAB15, AKE426 ####Sports Management Intern: ENRIQUE JEAN BAPTISTE ([id number])[facility] (SBHLAB)[address] [place] [address] [place] Phosphate [Moles/Vol]on 01-28 Phosphate [Mass/Vol] 2.7 mg/dL 2.5 - 4 .5 mg/dL [facility] Phosphate [Mass/Vol] 2.6 mg/dL 2.5 - 4 .5 mg/dL [facility] Progress Noteon 02-16-2024 Progress Note ICU Transfer Checkli st Transfer Med Reconciliation (resume home meds if able, convert to PO if able) Complete Antibiotics (name, indication, duration, convert to PO if able) None Steroid (indication, duration, convert to PO if able) None Anticipated [place] Medications (ICU initiated) or Dose Changes and Indication Yes, addressed in today's progress note Permanently Discontinued Home Medications and Reason for medication contraindication No Henning Catheter (please remove if able. Note: place DC order) No Central Line (please remove if able. Note: place DC order) No Transfer Discussed with: Dr. Shell with [facility] If additional questions for ICU team within 24 hours of ICU transfer, page [phone] for clarifications. [facility] Progress Note Accepted ICU transfe r from Dr. Escalante Normal [facility] Vital signsOrdered By: Halima Wong on 02-16-2024 Heart rate 92 /min bpm [facility] Work Phone: BASIC METABOLIC PANELon 01-27 Anion gap [Moles/Vol] 22 mmol/L High 3-13 [facility] Comment on above: Performed By: #### L AB103, FTK756, LAB15, GRN6546 ####Sports Management Intern: ENRIQUE JEAN BAPTISTE ([id number])[facility] (SBHLAB)[address] [place] [address] [place] Calcium [Mass/Vol] 8.7 mg/dL Normal 8.4-10.4 [facility] Comment on above: Performed By: #### L AB103, JLG903, LAB15, [id number] ####Sports Management Intern: ENRIQUE JEAN BAPTISTE ([id number])[facility] (SBHLAB)[address] Chloride [Moles/Vol] 98 mmol/L Normal 98-107 [facility] Comment on above: Performed By: #### L AB103, RDS461, LAB15, IYC3586 ####Sports Management Intern: ENRIQUE JEAN BAPTISTE ([id number])[facility] (SBHLAB)[address] CO2 [Moles/Vol] 13 mmol/L Low 22-30 [facility] Comment on above: Performed By: #### L AB103, NUY950, LAB15, IEI6271 ####Sports Management Intern: ENRIQUE JEAN BAPTISTE ([id number])[facility] (SBHLAB)[address] Creatinine [Mass/Vol] 0.56 mg/dL Low 0.66-1.25 [facility] Comment on above: Performed By: #### L AB103, HFH960, LAB15, KZV5079 ####Sports Management Intern: ENRIQUE JEAN BAPTISTE ([id number])[facility] (SBHLAB)[address] GLOMERULAR FILTRATION RATE ML/MIN/1.73 SQ M.PREDICTED >90.0 Normal >60.0 [facility] Comment on above: Result Comment: Calc ulation based on the Chronic Kidney Disease Epidemiology Collaboration (CKD-EPI) equation refit without adjustment for race Performed By: #### L AB103, FRN629, LAB15, FXS4493 ####Sports Management Intern: ENRIQUE JEAN BAPTISTE ([id number])[facility] (SBHLAB)[address] [place] [address] [place] Glucose [Mass/Vol] 241 mg/dL High 70-100 [facility] Comment on above: Performed By: #### L AB103, WPR069, LAB15, DDH4265 ####Sports Management Intern: ENRIQUE JEAN BAPTISTE ([id number])[facility] (SBHLAB)[address] Potassium [Moles/Vol] 3.5 mmol/L Normal 3.5-5.1 [facility] Comment on above: Performed By: #### L AB103, VDL324, LAB15, JBJ0095 ####Sports Management Intern: ENRIQUE JEAN BAPTISTE ([id number])[facility] (SBHLAB)[address] Sodium [Moles/Vol] 133 mmol/L Low 135-145 [facility] Comment on above: Performed By: #### L AB103, IQZ524, LAB15, TVZ0727 ####Sports Management Intern: ENRIQUE JEAN BAPTISTE ([id number])[facility] (SBHLAB)[address] Urea nitrogen [Mass/Vol] 15 mg/dL Normal 9-20 [facility] Comment on above: Performed By: #### L AB103, MHJ526, LAB15, JSH4763 ####Sports Management Intern: ENRIQUE JEAN BAPTISTE ([id number])[facility] (SBHLAB)[address] BETA HYDROXYBUTYRATEon 02-14 BETA HYDROXYBUTYRATE 31.40 mg/dL High 0.20-2.81 [facility] Comment on above: Performed By: #### L AB103, KRM691, LAB15, QIC4369 ####Sports Management Intern: ENRIQUE JEAN BAPTISTE ([id number])[facility] [place] (SBHLAB)[address] BETA HYDROXYBUTYRATE 110.00 mg/dL High 0.20-2.81 [facility] Comment on above: Performed By: #### L AB17, ZOP547, LAB99, QQF5094, DVB601, VNB626 ####Sports Management Intern: ENRIQUE JEAN BAPTISTE ([id number])[facility] (SBHLAB)[address] BLOOD GAS, VENOUSon 02-15-20 Base excess Calc (BldV) [Moles/Vol] -11.60711 mmol/L Low -3.0-3.0 [facility] Comment on above: Performed By: #### L AB79 ####Sports Management Intern: ENRIQUE JEAN BAPTISTE ([id number])[facility] [place] (SBHLAB)[address] CO2 [Moles/Vol] 12.2 mmol/L Low 23.0-30.[address] [facility] Comment on above: Performed By: #### L AB79 ####Sports Management Intern: ENRIQUE JEAN BAPTISTE ([id number])[facility] (SBHLAB)[address] HCO3 (Bld) [Moles/Vol] 11.5 mmol/L Low 21.0-30.0 [facility] Comment on above: Performed By: #### L AB79 ####Sports Management Intern: ENRIQUE JEAN BAPTISTE ([id number])[facility] [place] (SBHLAB)[address] Hemoglobin (Bld) [Mass/Vol] 19.7 g/dL High Screen only [facility] Comment on above: Performed By: #### L AB79 ####Sports Management Intern: ENRIQUE JEAN BAPTISTE ([id number])[facility] (SBHLAB)[address] OXYGEN (MM HG) IN VENOUS BLOOD 54.2 mm Hg Normal [facility] Comment on above: Performed By: #### L AB79 ####Sports Management Intern: ENRIQUE JEAN BAPTISTE ([id number])[facility] (SBHLAB)[address] OXYGEN SATURATION (%) IN VENOUS BLOOD 85.0 % Normal [facility] Comment on above: Performed By: #### L AB79 ####Sports Management Intern: ENRIQUE JEAN BAPTISTE ([id number])[facility] (SBHLAB)[address] [place] [address] [place] PCO2, AMBROSIO 22.4 mm Hg Low 38.0-56.0 [facility] Comment on above: Performed By: #### L AB79 ####Sports Management Intern: ENRIQUE GARCIAHEMANTH ([id number])[facility] ([facility] PH VENOUS 7.329 Normal 7.320-7.420 [facility] Comment on above: Performed By: #### L AB79 ####Sports Management Intern: ENRIQUE JEAN BAPTISTE ([id number])[facility] (SBAB)[address] SOURCE OF OXYGEN Room Air Normal [facility] Comment on above: Result Comment: KAMALA Mcdaniels [...] a syringe. Performed By: #### L AB79 ####Sports Management Intern: ENRIQUE JEAN BAPTISTE ([id number])[facility] ([facility])[address] [place] [address] Basic metabolic 1998 panelon 02-15-2024 Anion gap [Moles/Vol] 22 mmol/L High 3 - 13 mmol/L [facility] Calcium [Mass/Vol] 8.7 mg/dL 8.4 - 10. 4 mg/dL [facility] Chloride [Moles/Vol] 98 mmol/L 98 - 10 7 mmol/L [facility] CO2 [Moles/Vol] 13 mmol/L Low 22 - 30 mmol/L [facility] Creatinine [Mass/Vol] 0.56 mg/dL Low 0.66 - 1.25 mg/dL [facility] GFR/1.73 sq M.predicted (S/P/Bld) [Vol rate/Area] - PINF [facility] Comment on above: Calculation based on the Chronic Kidney Disease Epidemiology Collaboration (CKD-EPI) equation refit without adjustment for race Glucose [Mass/Vol] 241 mg/dL High 70 - 100 mg/dL [facility] Interpretation and review of laboratory results Abnormal [facility] Potassium [Moles/Vol] 3.5 mmol/L 3.5 - 5.1 mmol/L [facility] Sodium [Moles/Vol] 133 mmol/L Low 135 - 145 mmol/L [facility] Urea nitrogen [Mass/Vol] 15 mg/dL 9 - 20 mg/dL [facility] CBC W Auto Differential pane l (Bld)on 02-15-2024 Basophils (Bld) [#/Vol] 0 10*3/uL 0.0 - 0.2 10*3/uL [facility] Basophils/100 WBC (Bld) 0.2 % 0.0 - 2.0 % [facility] Eosinophils (Bld) [#/Vol] 0 10*3/uL 0.0 - 0.5 10*3/uL [facility] Eosinophils/100 WBC (Bld) 0.1 % 0.0 - 6.0 % [facility] Erythrocyte distribution width (RBC) [Ratio] 13 % 11.5 - 15.0 % [facility] Hematocrit (Bld) [Volume fraction] 46.4 % 40.0 - 52.0 % [facility] Hemoglobin (Bld) [Mass/Vol] 16.1 g/dL 13.0 - 18.0 g/dL [facility] Immature granulocytes (Bld) [#/Vol] 0.1 10*3/uL High NINF - 0.1 10*3/uL [facility] Immature granulocytes/100 WBC (Bld) 0.5 % 0.0 - 2.0 % [facility] Interpretation and review of laboratory results Abnormal [facility] Lymphocytes (Bld) [#/Vol] 1.3 10*3/uL 1.0 - 4.3 10*3/uL [facility] Lymphocytes/100 WBC (Bld) 7.2 % Low 15.0 - 45.0 % [facility] MCH (RBC) [Entitic mass] 31 pg 26.0 - 34.0 pg [facility] MCHC (RBC) [Mass/Vol] 34.7 % 30.5 - 36.0 % [facility] MCV (RBC) [Entitic vol] 89.4 fL 77.0 - 99.0 fL [facility] Monocytes (Bld) [#/Vol] 0.8 10*3/uL 0.0 - 0.9 10*3/uL [facility] Monocytes/100 WBC (Bld) 4.8 % Low 5.0 - 13.0 % [facility] Neutrophils (Bld) [#/Vol] 15.1 10*3/uL High 1.8 - 7.5 10*3/uL [facility] Neutrophils/100 WBC (Bld) 87.2 % High 38.0 - 82.0 % [facility] Nucleated RBC/100 WBC (Bld) [Ratio] 0 % [facility] Platelet mean volume (Bld) [Entitic vol] 10.4 fL 9.0 - 12.7 fL [facility] Platelets (Bld) [#/Vol] 343 10*3/uL 140 - 440 10*3/uL [facility] RBC (Bld) [#/Vol] 5.19 10*6/uL 4.40 - 5.9 0 10*6/uL [facility] WBC (Bld) [#/Vol] 17.3 10*3/uL High 3.6 - 10.7 10*3/uL [facility] CBC WITH AUTO DIFFERENTIALon 02-15-2024 Basophils (Bld) [#/Vol] 0.0 10*3/uL Normal 0.0-0.2 [facility] Comment on above: Performed By: #### L [id number] ####Sports Management Intern: ENRIQUE JEAN BAPTISTE ([id number])[facility] ([facility] [place] [address] Basophils/100 WBC (Bld) 0.2 % Normal 0.0-2.0 S [facility] Comment on above: Performed By: #### L [id number] ####Sports Management Intern: ENRIQUE JEAN BAPTISTE ([id number])[facility] (SBHLAB)[address] [place] [address] [place] Eosinophils (Bld) [#/Vol] 0.0 10*3/uL Normal 0.0-0.5 [facility] Comment on above: Performed By: #### L [id number] ####Sports Management Intern: ENRIQUE JEAN BAPTISTE ([id number])[facility] (SBHLAB)[address] [place] [address] [place] Eosinophils/100 WBC (Bld) 0.1 % Normal 0.0-6.0 [facility] Comment on above: Performed By: #### L [id number] ####Sports Management Intern: NERIQUE GARCIAHEMANTH ([id number])[facility] (SBHLAB)[address] Erythrocyte distribution width (RBC) [Ratio] 13.0 % Normal 11.5-15.0 [facility] Comment on above: Performed By: #### L [id number] ####Sports Management Intern: ENRIQUE GALDAMEZISIDRO ([phone])[facility] ([facility] Hematocrit (Bld) [Volume fraction] 46.4 % Normal 40.0-52.0 [facility] Comment on above: Performed By: #### L [id number] ####Sports Management Intern: ENRIQUE GARCIAHEMANTH ([id number])[facility] [place] [facility] Hemoglobin (Bld) [Mass/Vol] 16.1 g/dL Normal 13.0-18.0 [facility] Comment on above: Performed By: #### L [id number] ####Sports Management Intern: ENRIQUE JEAN BAPTISTE ([phone])[facility] ([facility])[address] [place] [address] IMMATURE GRANS % 0.5 % Normal 0.0-2.[address] [facility] Comment on above: Performed By: #### L [id number] ####Sports Management Intern: ENRIQUE GARCIAHEMANTH ([id number])[facility] ([facility])[address] IMMATURE GRANS ABSOLUTE 0.1 10*3/uL High <0.1 [facility] Comment on above: Performed By: #### L [id number] ####Sports Management Intern: ENRIQUE JEAN BAPTISTE ([id number])[facility] ([facility])[address] Lymphocytes (Bld) [#/Vol] 1.3 10*3/uL Normal 1.0-4.3 [facility] Comment on above: Performed By: #### L [id number] ####Sports Management Intern: ENRIQUE GALDAMEZDonaldHEMANTH ([id number])[facility] (SBHLAB)[address] Lymphocytes/100 WBC (Bld) 7.2 % Low 15.0-45.0 [facility] Comment on above: Performed By: #### L [id number] ####Sports Management Intern: ENRIQUE ITA ([id number])[facility] [place] (SBHLAB)[address] MCH (RBC) [Entitic mass] 31.0 pg Normal 26.0-34.0 [facility] Comment on above: Performed By: #### L [id number] ####Sports Management Intern: ENRIQUE ITA ([id number])[facility] [place] (SBHLAB)[address] MCHC 34.7 % Normal 30.5-36.0 [facility] Comment on above: Performed By: #### L [id number] ####Sports Management Intern: ENRIQUE GARCIAHEMANTH ([id number])[facility] [place] (SBHLAB)[address] MCV (RBC) [Entitic vol] 89.4 fL Normal 77.0-99.0 S [facility] Comment on above: Performed By: #### L [id number] ####Sports Management Intern: ENRIQUE GARCIAHEMANTH ([id number])[facility] [place] (SBHLAB)[address] [place] [address] [place] Monocytes (Bld) [#/Vol] 0.8 10*3/uL Normal 0.0-0.9 [facility] Comment on above: Performed By: #### L [id number] ####Sports Management Intern: ENRIQUE JEAN BAPTISTE ([id number])[facility] [place] (SBHLAB)[address] [place] [address] [place] Monocytes/100 WBC (Bld) 4.8 % Low 5.0-13.0 S [facility] Comment on above: Performed By: #### L [id number] ####Sports Management Intern: ENRIQUE JEAN BAPTISTE ([id number])[facility] (SBHLAB)[address] NEUTROPHILS ABSOLUTE 15.1 10*3/uL High 1.8-7.5 [facility] Comment on above: Performed By: #### L [id number] ####Sports Management Intern: ENRIQUE JEAN BAPTISTE ([id number])[facility] (SBHLAB)[address] Neutrophils/100 WBC (Bld) 87.2 % High 38.0-82.0 [facility] Comment on above: Performed By: #### L [id number] ####Sports Management Intern: ENRIQUE JEAN BAPTISTE ([id number])[facility] [place] (SBHLAB)[address] NRBC 0.0 /100 WBCs Normal 0.0-2.0 [facility] Comment on above: Performed By: #### L [id number] ####Sports Management Intern: ENRIQUE JEAN BAPTISTE ([id number])[facility] [place] (SB[facility]AB)[address] Platelet mean volume (Bld) [Entitic vol] 10.4 fL Normal 9.0-12.7 [facility] Comment on above: Performed By: #### L [id number] ####Sports Management Intern: ENRIQUE JEAN BAPTISTE ([id number])[facility] [place] (SBHLAB)[address] [place] [address] [place] Platelets (Bld) [#/Vol] 343 10*3/uL Normal 140-440 [facility] Comment on above: Performed By: #### L [id number] ####Sports Management Intern: ENRIQUE JEAN BAPTISTE ([id number])[facility] [place] (SB[facility])[address] RBC (Bld) [#/Vol] 5.19 10*6/uL Normal 4.40-5.90 [facility] Comment on above: Performed By: #### L [id number] ####Sports Management Intern: ENRIQUE JEAN BAPTISTE ([phone])[facility] ([facility])[address] WBC (Bld) [#/Vol] 17.3 10*3/uL High 3.6-10.7 [facility] Comment on above: Performed By: #### L [id number] ####Sports Management Intern: ENRIQUE JEAN BAPTISTE ([phone])[facility] ([facility])[address] [place] [address] COMPLETE URINALYSISon 2023 BACTERIA (#/HPF) IN URINE Negative Normal Negative [facility] Comment on above: Performed By: #### L [id number] ####Sports Management Intern: ENRIQUE JEAN BAPTISTE ([phone])[facility] ([facility])[address] [place] [address] BILIRUBIN, TOTAL PRESENCE IN URINE Negative Normal Negative [facility] Comment on above: Performed By: #### L [id number] ####Sports Management Intern: ENRIQUE JEAN BAPTISTE ([id number])[facility] ([facility])[address] [place] [address] Clarity (U) Clear Normal Clear [facility] Comment on above: Performed By: #### L [id number] ####Sports Management Intern: ENRIQUE JEAN BAPTISTE ([id number])[facility] ([facility])[address] [place] [address] Color (U) Colorless Normal Lt. Yellow [facility] Comment on above: Performed By: #### L [id number] ####Sports Management Intern: ENRIQUE JEAN BAPTISTE ([id number])[facility] ([facility])[address] [place] [address] GLUCOSE (MG/DL) IN URINE >1,000 Abnormal Normal (<70) [facility] Comment on above: Performed By: #### L [id number] ####Sports Management Intern: ENRIQUE GARCIAHEMANTH ([id number])[facility] [place] (SB[facility]AB)[address] HEMOGLOBIN PRESENCE IN URINE Negative Normal Negative [facility] Comment on above: Performed By: #### L [id number] ####Sports Management Intern: ENRIQUE GARCIAHEMANTH ([id number])[facility] [place] (SB[facility]AB)[address] HYALINE CASTS (#/LPF) IN URINE SEDIMENT BY MICROSCOPY 0-2 Abnormal Negative [facility] Comment on above: Performed By: #### L [id number] ####Sports Management Intern: ENRIQUE GALDAMEZISIDRO ([id number])[facility] [place] (SB[facility])[address] Ketones Ql (U) >150 Abnormal Negative [facility] Comment on above: Performed By: #### L [id number] ####Sports Management Intern: ENRIQUE GARCIAHEMANTH ([id number])[facility] (SBHLAB)[address] LEUKOCYTE ESTERASE PRESENCE IN URINE BY TEST STRIP Negative Normal Negative [facility] Comment on above: Performed By: #### L [id number] ####Sports Management Intern: ENRIQUE GARCIAHEMANTH ([id number])[facility] [place] (SB[facility])[address] [place] [address] [place] MUCUS (#/LPF) IN URINE SEDIMENT Few Normal Negative [facility] Comment on above: Performed By: #### L [id number] ####Sports Management Intern: ENRIQUE GALDAMEZISIDRO ([id number])[facility] [place] ([facility])[address] [place] [address] [place] NITRITE PRESENCE IN URINE Negative Normal Negative [facility] Comment on above: Performed By: #### L [id number] ####Sports Management Intern: ENRIQUE GARCIAHEMANTH ([id number])[facility] [place] (SB[facility])[address] pH (U) 5.0 [pH] Normal 5.0-8.0 [facility] Comment on above: Performed By: #### L [id number] ####Sports Management Intern: ENRIQUE JEAN BAPTISTE ([id number])[facility] [place] ([facility])[address] Protein (U) [Mass/Vol] 20 mg/dL Abnormal Negative [facility] Comment on above: Performed By: #### L [id number] ####Sports Management Intern: ENRIQUE JEAN BAPTISTE ([id number])[facility] (SBHLAB)[address] RBC (#/HPF) IN URINE SEDIMENT 0-2 Normal 0-2 [facility] Comment on above: Performed By: #### L [id number] ####Sports Management Intern: ENRIQUE JEAN BAPTISTE ([phone])[facility] [place] (SBHLAB)[address] [place] [address] Specific gravity (U) [Rel density] 1.023 Normal 1.005-1.030 [facility] Comment on above: Performed By: #### L [id number] ####Sports Management Intern: ENRIQUE JEAN BAPTISTE ([id number])[facility] (SB[facility]AB)[address] SQUAMOUS EPITHELIAL CELLS (#/HPF) IN URINE SEDIMENT Negative Normal 3-5 [facility] Comment on above: Performed By: #### L [id number] ####Sports Management Intern: ENRIQUE JEAN BAPTISTE ([id number])[facility] [place] ([facility])[address] [place] [address] [place] UROBILINOGEN (MG/DL) IN URINE Normal Normal Normal (0-1) [facility] Comment on above: Performed By: #### L [id number] ####Sports Management Intern: ENRIQUE JEAN BAPTISTE ([id number])[facility] [place] ([facility])[address] [place] [address] [place] WBC (LEUKOCYTE) (#/HPF) IN URINE SEDIMENT 0-2 Normal 0-5 [facility] Comment on above: Performed By: #### L [id number] ####Sports Management Intern: ENRIQUE JEAN BAPTISTE ([id number])[facility]BSACOMA[facility]CAN[facility] UNITDiego (SBHLAB)[address] COMPREHENSIVE METABOLIC PANE Meño 02-15-2024 Albumin [Mass/Vol] 5.5 g/dL High 3.5-5.0 [facility] Comment on above: Performed By: #### L AB17, CBX181, LAB99, [id number], ZXN689, ZBP215 ####Sports Management Intern: ENRIQUE JEAN BAPTISTE ([id number])[facility] (SBHLAB)[address] ALP [Catalytic activity/Vol] 255 U/L High 38-126 [facility] Comment on above: Performed By: #### L AB17, PPC713, LAB99, MHM7619, EVC377, UOS579 ####Sports Management Intern: ENRIQUE JEAN BAPTISTE ([id number])[facility] (SBHLAB)[address] ALT [Catalytic activity/Vol] 74 U/L High 0-49 [facility] Comment on above: Performed By: #### L AB17, BOV327, LAB99, IPD5041, MUX397, CHR341 ####Sports Management Intern: ENRIQUE JEAN BAPTISTE ([id number])[facility] (SBHLAB)[address] ANION GAP Normal [facility] Comment on above: Result Comment: Unab le To Calculate Performed By: #### L AB17, HFV516, LAB99, CEE5024, MXW603, QSG807 ####Sports Management Intern: ENRIQUE JEAN BAPTISTE ([id number])[facility] (SBHLAB)[address] [place] [address] [place] AST [Catalytic activity/Vol] 31 U/L Normal 15-46 [facility] Comment on above: Performed By: #### L AB17, ECJ942, LAB99, QSM7315, DYV730, OFY272 ####Sports Management Intern: ENRIQUE JEAN BAPTISTE ([id number])[facility] (SBHLAB)[address] Bilirubin [Mass/Vol] 0.8 mg/dL Normal 0.2-1.3 [facility] Comment on above: Performed By: #### L AB17, SMI335, LAB99, ANF9037, BSA707, DYP448 ####Sports Management Intern: ENRIQUE JEAN BAPTISTE ([id number])[facility] (SBHLAB)[address] Calcium [Mass/Vol] 9.9 mg/dL Normal 8.4-10.4 [facility] Comment on above: Performed By: #### L AB17, FOD934, LAB99, APL0895, VTT070, NAB329 ####Sports Management Intern: ENRIQUE JEAN BAPTISTE ([id number])[facility] (SBHLAB)[address] Chloride [Moles/Vol] 86 mmol/L Low 98-107 [facility] Comment on above: Performed By: #### L AB17, QOK434, LAB99, ZRN9286, TQB097, DBK760 ####Sports Management Intern: ENRIQUE JEAN BAPTISTE ([id number])[facility] (SBHLAB)[address] CO2 [Moles/Vol] mmol/L Low 22-30 [facility] Comment on above: Performed By: #### L AB17, WEB883, LAB99, NGU4250, IVD558, TIK615 ####Sports Management Intern: ENRIQUE JEAN BAPTISTE ([phone])[facility] (SBHLAB)[address] Creatinine [Mass/Vol] 0.77 mg/dL Normal 0.66-1.25 [facility] Comment on above: Performed By: #### L AB17, OQL658, LAB99, GZH6347, EAU534, DWY618 ####Sports Management Intern: ENRIQUE JEAN BAPTISTE ([id number])[facility] (SBHLAB)[address] [place] [address] [place] GLOMERULAR FILTRATION RATE ML/MIN/1.73 SQ M.PREDICTED >90.0 Normal >60.0 [facility] Comment on above: Result Comment: Calc ulation based on the Chronic Kidney Disease Epidemiology Collaboration (CKD-EPI) equation refit without adjustment for race Performed By: #### L AB17, KDF079, LAB99, MVJ9814, NDE629, ZEF885 ####Sports Management Intern: ENRIQUE JEAN BAPTISTE ([id number])[facility]BS[facility] (SBHLAB)[address] Glucose [Mass/Vol] 521 mg/dL Critically high 70-100 [facility] Comment on above: Performed By: #### L AB17, BGL894, LAB99, AUK4825, VJZ909, WFK342 ####Sports Management Intern: ENRIQUE JEAN BAPTISTE ([id number])[facility] (SBHLAB)[address] Potassium [Moles/Vol] 3.9 mmol/L Normal 3.5-5.1 [facility] Comment on above: Performed By: #### L AB17, WDJ345, LAB99, AYC7758, HND783, PKP532 ####Sports Management Intern: ENRIQUE JEAN BAPTISTE ([id number])[facility] (SBHLAB)[address] Protein [Mass/Vol] 9.7 g/dL High 6.3-8.2 [facility] Comment on above: Performed By: #### L AB17, ZUS128, LAB99, ZDR4801, GSA837, HVD360 ####Sports Management Intern: ENRIQUE JEAN BAPTISTE ([id number])[facility] (SBHLAB)[address] Sodium [Moles/Vol] 132 mmol/L Low 135-145 [facility] Comment on above: Performed By: #### L AB17, WET849, LAB99, JFB5057, MZL460, SMD848 ####Sports Management Intern: ENRIQUE JEAN BAPTISTE ([id number])[facility] (SBHLAB)[address] Urea nitrogen [Mass/Vol] 17 mg/dL Normal 9-20 [facility] Comment on above: Performed By: #### L AB17, NQV127, LAB99, XWR4773, AST980, DIL882 ####Sports Management Intern: ENRIQUE JEAN BAPTISTE ([phone])[facility] (SBHLAB)[address] Comprehensive metabolic 1998 panelOrdered By: Karmen Velasquez on 02-15-2024 Albumin [Mass/Vol] 5.5 g/dL High 3.5 - 5.0 g/dL [facility] ALP [Catalytic activity/Vol] 255 U/L High 38 - 126 U/L [facility] ALT [Catalytic activity/Vol] 74 U/L High 0 - 49 U/L [facility] Anion gap [Moles/Vol] [facility] Comment on above: Unable To Calculate AST [Catalytic activity/Vol] 31 U/L 15 - 46 U/L [facility] Bilirubin [Mass/Vol] 0.8 mg/dL 0.2 - 1 .3 mg/dL [facility] Calcium [Mass/Vol] 9.9 mg/dL 8.4 - 10. 4 mg/dL [facility] Chloride [Moles/Vol] 86 mmol/L Low 98 - 10 7 mmol/L [facility] CO2 [Moles/Vol] mmol/L Low 22 - 30 mmol/L [facility] Creatinine [Mass/Vol] 0.77 mg/dL 0.66 - 1.25 mg/dL [facility] GFR/1.73 sq M.predicted (S/P/Bld) [Vol rate/Area] - PINF [facility] Comment on above: Calculation based on the Chronic Kidney Disease Epidemiology Collaboration (CKD-EPI) equation refit without adjustment for race Glucose [Mass/Vol] 521 mg/dL Critically high 70 - 1 00 mg/dL [facility] Interpretation and review of laboratory results Abnormal [facility] Potassium [Moles/Vol] 3.9 mmol/L 3.5 - 5.1 mmol/L [facility] Protein [Mass/Vol] 9.7 g/dL High 6.3 - 8.2 g/dL [facility] Sodium [Moles/Vol] 132 mmol/L Low 135 - 145 mmol/L [facility] Urea nitrogen [Mass/Vol] 17 mg/dL 9 - 20 mg/dL [facility] ED Nursing Noteon 02-15-2024 ED Nursing Note Glucose 521 Nga Mckenzie RN 02/15/24 1624 Normal [facility] ED Nursing Note Pt believes he is in DKA, sugar has been reading high and he's had vomiting x 3 days 444 BGT in triage [facility] ED Provider Noteon ED Provider Note EMERGENCY [...] TONSILLECTOMY (HISTORICAL) ? UPPER GASTROINTESTINAL ENDOSCOPY 03/16/2015 [facility] ? URETERAL STENT PLACEMENT Common bile [...] use: Y (more content not included)... Normal [facility] LIPASEon 02-15-2024 Lipase [Catalytic activity/Vol] 101 U/L Normal 23-300 [facility] Comment on above: Performed By: #### L AB17, SXT208, LAB99, ASO7387, KRR491, BOS208 ####Sports Management Intern: ENRIQUE JEAN BAPTISTE ([phone])[facility] ([facility])[address] [place] [address] Laboratory - Chemistry and C hemistry - challengeon 02-15-2024 Glucose [Mass/Vol] 145 mg/dL High 70 - 100 mg/dL [facility] Glucose [Mass/Vol] 164 mg/dL High 70 - 100 mg/dL [facility] Glucose [Mass/Vol] 204 mg/dL High 70 - 100 mg/dL [facility] Beta hydroxybutyrate [Mass/Vol] 31.4 mg/dL High 0.20 - 2.81 mg/dL [facility] Magnesium [Mass/Vol] 2 mg/dL 1.6 - 2 .3 mg/dL [facility] Glucose [Mass/Vol] 203 mg/dL High 70 - 100 mg/dL [facility] Glucose [Mass/Vol] 243 mg/dL High 70 - 100 mg/dL [facility] Glucose [Mass/Vol] 245 mg/dL High 70 - 100 mg/dL [facility] Beta hydroxybutyrate [Mass/Vol] 110 mg/dL High 0.20 - 2.81 mg/dL [facility] Glucose [Mass/Vol] 353 mg/dL High 70 - 100 mg/dL [facility] Base excess Calc (BldV) [Moles/Vol] -11.69640 mmol/L Low -3.0 - 3.0 mmol/L [facility] CO2 (BldV) [Partial pressure] 22.4 mm[Hg] Low [facility] CO2 [Moles/Vol] 12.2 mmol/L Low 23.0 - 30.0 mmol/L [facility] HCO3 (Bld) [Moles/Vol] 11.5 mmol/L Low 21.0 - 30.0 mmol/L [facility] Oxygen (BldV) [Partial pressure] 54.2 mm[Hg] mm Hg [facility] pH (BldV) 7.329 [pH] 7.320 - 7.420 [facility] Troponin I.cardiac [Mass/Vol] ng/mL NINF - 0.034 ng/mL [facility] Lipase [Catalytic activity/Vol] 101 U/L 23 - 300 U/L [facility] Magnesium [Mass/Vol] 2.1 mg/dL 1.6 - 2 .3 mg/dL [facility] Glucose [Mass/Vol] 444 mg/dL High 70 - 100 mg/dL [facility] Laboratory - Hematology and Cell countson 02-15-2024 Hemoglobin (Bld) [Mass/Vol] 19.7 g/dL High Screen only [facility] MAGNESIUMon 02-15-2024 Magnesium [Mass/Vol] 2.0 mg/dL Normal 1.6-2.3 [facility] Comment on above: Performed By: #### L AB103, KCY172, LAB15, GXD5528 ####Sports Management Intern: ENRIQUE JEAN BAPTISTE ([phone])[facility] ([facility] [place] [address] Magnesium [Mass/Vol] 2.1 mg/dL Normal 1.6-2.3 [facility] Comment on above: Performed By: #### L AB17, VSW354, LAB99, SHC1843, LRK618, KCK693 ####Sports Management Intern: ENRIQUE JEAN BAPTISTE ([phone])[facility] (SBHLAB)[address] MEDICATION ASSISTED TREATMEN T PANELon 02-15-2024 Amphetamines Ql (U) Negative Normal Negative [facility] Comment on above: Performed By: #### L [id number] ####Sports Management Intern: NANCY OSEGUERA ([id number])[facility])[address] [place] [address] BARBITURATES Negative Normal Negative [facility] Comment on above: Performed By: #### L [id number] ####Sports Management Intern: NANCY OSEGUERA ([id number])[facility])[address] [place] [address] Benzodiazepines Ql (U) Negative Normal Negative [facility] Comment on above: Performed By: #### L [id number] ####Sports Management Intern: NANCY OSEGUERA ([id number])[facility])[address] [place] [address] BUPRENORPHINE SCREEN Positive Normal Negative [facility] Comment on above: Performed By: #### L [id number] ####Sports Management Intern: NANCY OSEGUERA ([id number])[facility] ([facility])[address] [place] [address] Cocaine Ql (U) Negative Normal Negative [facility] Comment on above: Performed By: #### L [id number] ####Sports Management Intern: NANCY OSEGUERA ([id number])[address] ETHANOL-ETOHO Negative Normal Negative [facility] Comment on above: Result [...] using non-forensic procedures. Performed By: #### L [id number] ####Sports Management Intern: NANCY OSEGUERA ([id number])[facility] ([facility])[address] [place] [address] FENTANYL Positive Normal Negative [facility] Comment on above: Performed By: #### L [id number] ####Sports Management Intern: NANCY OSEGUERA ([phone])[facility] ([facility])[address] [place] [address] Methadone Ql (U) Negative Normal Negative [facility] Comment on above: Performed By: #### L [id number] ####Sports Management Intern: NANCY OSEGUERA ([id number])[facility] ([facility])[address] [place] [address] Opiates Ql (U) Negative Normal Negative [facility] Comment on above: Performed By: #### L [id number] ####Sports Management Intern: NANCY OSEGUERA ([id number])[facility] ([facility])[address] [place] [address] OXYCODONE/OXYMORPHONE Negative Normal Negative [facility] Comment on above: Performed By: #### L [id number] ####Sports Management Intern: NANCY OSEGUERA ([phone])[facility])[address] [place] [address] PCP Negative Normal Negative [facility] Comment on above: Performed By: #### L [id number] ####Sports Management Intern: NANCY OSEGUERA ([id number])[facility] ([facility])[address] [place] [address] THC-MTTHC Negative Normal Negative [facility] Comment on above: Performed By: #### L [id number] ####Sports Management Intern: NANCY OSEGUERA ([phone])[facility])[address] [place] [address] Magnesium [Mass/Vol]on 02-14 Interpretation and review of laboratory results Normal [facility] No Panel Informationon 10-19 -2024 Interpretation and review of laboratory results Abnormal [facility] Performed by: [facility], [address] [facility], [facility] [address] CLIA ID: [id number] [facility] Interpretation and review of laboratory results Abnormal [facility] Performed by: [facility], [address] [facility], [facility] [address] CLIA ID: [id number] [facility] Interpretation and review of laboratory results Abnormal [facility] Performed by: [facility], [address] [facility], [facility] [address] CLIA ID: [id number] [facility] Interpretation and review of laboratory results Abnormal [facility] Interpretation and review of laboratory results Abnormal [facility] Performed by: [facility], [address] [facility], [facility] [address] CLIA ID: [id number] [facility] Interpretation and review of laboratory results Abnormal [facility] Performed by: [facility], [address] [facility], [facility] [address] CLIA ID: [id number] [facility] Interpretation and review of laboratory results Abnormal [facility] Performed by: [facility], [address] [facility], [facility] [address] CLIA ID: [id number] [facility] Interpretation and review of laboratory results Abnormal [facility] Interpretation and review of laboratory results Abnormal [facility] Performed by: [facility], [address] [facility] [address] CLIA ID: [id number] [facility] Interpretation and review of laboratory results Abnormal [facility] Source Of Oxygen Room Air [place] Assessment of oxygenation is best done with an arterial blood gas determination. Reference ranges for pO2, bicarbonate, and base excess are for mixed venous blood. Specimens drawn from a peripheral vein will often have higher values. Interpret with caution, pO2 values falsely increased due to vacuum in tube. For accurate results, please draw in a syringe. [facility] Interpretation and review of laboratory results Normal [facility] Interpretation and review of laboratory results Abnormal [facility] Performed by: [facility], [address] [facility], [facility] [address] CLIA ID: [id number] [facility] PHOSPHORUSon 10-19-2024 Phosphate [Mass/Vol] 2.4 mg/dL Low 2.5-4.5 [facility] Comment on above: Performed By: #### L AB103, [id number], LAB15, [id number] ####Sports Management Intern: ENRIQUE JEAN BAPTISTE ([id number])[facility] ([facility])[address] Phosphate [Mass/Vol] 4.8 mg/dL High 2.5-4.5 [facility] Comment on above: Performed By: #### L AB17, [id number], LAB99, [id number], MEZ723, CBM387 ####Sports Management Intern: ENRIQUE JEAN BAPTISTE ([id number])[facility] ([facility])[address] [place] [address] [place] Phosphate [Moles/Vol]on 01-27 Interpretation and review of laboratory results Abnormal [facility] Phosphate [Mass/Vol] 2.4 mg/dL Low 2.5 - 4 .5 mg/dL [facility] Interpretation and review of laboratory results Abnormal [facility] Phosphate [Mass/Vol] 4.8 mg/dL High 2.5 - 4 .5 mg/dL [facility] TROPONIN Ion 02-15-2024 Troponin I.cardiac [Mass/Vol] ng/mL Normal <0.034 [facility] Comment on above: Result Comment: KAMALA Mcdaniels COMMENTS: Patients with high levels of Biotin oral intake (ie >5 mg/day) may have falsely decreased Troponin levels. Performed By: #### L AB17, UEN499, LAB99, IVQ1554, NQO682, AGH461 ####Sports Management Intern: ENRIQUE JEAN BAPTISTE ([id number])[facility] ([facility] [place] [address] [place] Troponin I.cardiac [Mass/Vol ]on 02-15-2024 Interpretation and review of laboratory results Normal [facility] Patients with high levels of Biotin oral intake (ie >5 mg/day) may have falsely decreased Troponin levels. [facility] Urinalysis complete panel (U )on 02-15-2024 Bacteria LM.HPF (Urine sed) [#/Area] Negative Negative /HPF [facility] Bilirubin Ql (U) Negative Negative mg/dL [facility] Clarity (U) Clear Clear [facility] Color (U) Colorless Lt. Yellow [facility] Epithelial cells.squamous LM.HPF (Urine sed) [#/Area] Negative [facility] Gl[facility] (U) >1,000 Abnormal Normal (<70) mg/dL [facility] Hemoglobin Ql (U) Negative Negative mg/dL [facility] Hyaline casts Auto (Urine sed) [#/Area] 0-2 Abnormal Negative /LPF [facility] Interpretation and review of laboratory results Abnormal [facility] Ketones (U) [Mass/Vol] mg/dL Abnormal Negat moises mg/dL [facility] Leukocyte esterase Test strip Ql (U) Negative Negative Nikita/uL [facility] Mucus LM.HPF (Urine sed) [#/Area] Few Negative /LPF [facility] Nitrite Ql (U) Negative Negative [facility] th pH (U) 5.0 [pH] 5.0 - 8.0 pH [facility] Protein (U) [Mass/Vol] 20 mg/dL Abnormal Negative [facility] RBC LM.HPF (Urine sed) [#/Area] 0-2 [facility] Specific gravity (U) [Rel density] 1.023 1.005 - 1.030 [facility] Urobilinogen (U) [Mass/Vol] Normal Normal (0-1) mg/dL [facility] WBC LM.HPF (Urine sed) [#/Area] 0-2 [facility] Vital signson 02-15-2024 Oxygen saturation in Venous blood 85 % [facility] XR Chest Single viewon 02-14 No acute cardiopulmonary disease. Report Dictated on Electronically Signed By: Levar Kong MD Electronically Signed Date/Time: 02/15/2024 6:16 PM T [facility] 1955 [id number] Exam Date/Time: 02/15/2024 18:13 Procedure: XR CHEST [...] of the chest are unremarkable as visualized. [facility] Levar Kong MD - 02/15/2024 Patient Name: GANESH BUSH : 1955 [facility]#: [id number] Exam Date/Time: 02/15/2024 18:13 Procedure: XR CHEST [...] Electronically Signed Date/Time: 02/15/2024 6:16 PM EDT [facility] Radiology Study observation (narrative) Rodriguezselin Thierry erick XR Chest Single viewOrdered By: Levar Kong on 02-15-2024 [facility] AMB POC HEMOGLOBIN A1Con HbA1c (Bld) [Mass fraction] 9.4 % Abnormal - 5.7 % [facility] HbA1c (Bld) [Mass fraction]o n 10-01-2023 Interpretation and review of laboratory results Abnormal [facility] Radiology Study observation (narrative) Rodriguezselin Thierry erick Office Visiton 10-01-2023 Follow-up visit [id number] Ganesh Bush 1955 M Date Provider Department Center 10/01/2023 [facility] END None Family History Problem Relation Age of Onset High Blood Pressure Mother Cancer Father Family Status - Relation Status Age at Mother Alive Father Daughter Alive Daughter Alive Level of Service:25976 OK OFFICE/OUTPATIENT ESTABLISHED MOD MDM 30 MIN Reason for Visit and Comments: Diabetes [34] - Follow up-over due for eye exam-last one approx 5 years ago Normal [facility] PATINSon 10-01-2023 PATINS Low Dose Correctio n Algorithm Glucose: Dose: LESS than 149 No Insulin 150-199 1 Unit 200-249 2 Units 250-299 3 Units 300-349 4 Units 350-400 5 Units Above 400 6 Units Normal [facility] Progress Noteon 10-01-2023 Progress Note [facility] [address] [facility] [address] [facility] [address] Dept: [phone] Dept Loc: [phone] Visit type: Established patient Reason for Visit: [...] Type 2 Diabetes mellitus with hyperglycemia and usp insulin use: - Most Recent A1C is [...] polyuria. PCP is Andrea Lr MD Initial [facility] endocrinology office visit: Before 12/13/2014 Last office visit: 05/27/2023 No significant Interval history Type of DM: 1 Onset :~2013 Current DM Medications: Humalog 14 units TID before meals with SS of 1 unit for every 50 greater than 150. Lantus 16 units nightly Complications: Cardiovascular -- No Statin Use -- Yes Retinopathy -- No Last KEVIN/Retina Eval: missed follow up at [facility] . Longer distance from home. Would like to be referred to ophthalmology in [place] Nephropathy -- No RONNIE/ARB Use -- Yes [...] mouth daily. C (more content not included)... [facility] 36on 09-27-2023 36 S: Patient spoke wit h [facility] nurse regarding needing a refill on his [...] Partida Will send the script into the [facility] pharmacy. CAC RN called patient ans relayed [...] question Protocols used: Medication Refill and Renewal [id number] [facility] 36 See TE [facility] HbA1c (Bld) [Mass fraction]o n 05-27-2023 Interpretation and review of laboratory results Abnormal [facility] Radiology Study observation (narrative) [facility] - Hematology and Cell countson 05-27-2023 HbA1c (Bld) [Mass fraction] 9.2 % Abnormal - 5.7 % [facility] AMB POC HEMOGLOBIN A1Con HbA1c (Bld) [Mass fraction] 7.9 % Abnormal - 5.6 % [facility] HbA1c (Bld) [Mass fraction]o n 11-13-2022 Interpretation and review of laboratory results Abnormal [facility] POCT glucose meteron 023 Glucose [Mass/Vol] 175 mg/dL High 70 - 100 mg/dL [facility] Interpretation and review of laboratory results Abnormal [facility] Performed by: [facility], [address] [place] [address] CLIA ID: [id number] [facility] Glucose [Mass/Vol] 205 mg/dL High 70 - 100 mg/dL [facility] Interpretation and review of laboratory results Abnormal [facility] Performed by: [facility], [address] [place] [address] CLIA ID: [id number] [facility] CBC W Auto Differential pane l (Bld)Ordered By: Alvin Schmitz on 08-17-2022 Basophils (Bld) [#/Vol] 0.1 10*3/uL 0.0 - 0.2 10*3/uL [facility] Basophils/100 WBC (Bld) 0.7 % 0.0 - 2.0 % [facility] Eosinophils (Bld) [#/Vol] 0.1 10*3/uL 0.0 - 0.5 10*3/uL [facility] Eosinophils/100 WBC (Bld) 0.6 % Low 1.0 - 6.0 % [facility] Erythrocyte distribution width (RBC) [Ratio] 13.3 % 11.5 - 14.5 % [facility] Hematocrit (Bld) [Volume fraction] 38.7 % Low 40.0 - 52.0 % [facility] Hemoglobin (Bld) [Mass/Vol] 13.2 g/dL 13.0 - 18.0 g/dL [facility] Interpretation and review of laboratory results Abnormal [facility] Lymphocytes (Bld) [#/Vol] 2.0 10*3/uL 1.0 - 4.3 10*3/uL [facility] Lymphocytes/100 WBC (Bld) 15.5 % Low 20.0 - 40.0 % [facility] MCH (RBC) [Entitic mass] 30.8 pg 26.0 - 34.0 pg [facility] MCHC (RBC) [Mass/Vol] 34.2 % 32.0 - 36.0 % [facility] MCV (RBC) [Entitic vol] 90.0 fL 80.0 - 98.0 fL [facility] Monocytes (Bld) [#/Vol] 0.9 10*3/uL High 0.0 - 0.8 10*3/uL [facility] Monocytes/100 WBC (Bld) 7.0 % 2.0 - 10.0 % [facility] Neutrophils (Bld) [#/Vol] 9.7 10*3/uL High 1.8 - 7.0 10*3/uL [facility] Neutrophils/100 WBC (Bld) 76.2 % 40.0 - 80.0 % [facility] Nucleated RBC/100 WBC (Bld) [Ratio] 0.0 % [facility] Platelet mean volume (Bld) [Entitic vol] 9.3 fL 7.4 - 12.4 fL [facility] Platelets (Bld) [#/Vol] 250 10*3/uL 140 - 440 10*3/uL [facility] RBC (Bld) [#/Vol] 4.30 10*6/uL Low 4.40 - 5.9 0 10*6/uL [facility] WBC (Bld) [#/Vol] 12.7 10*3/uL High 3.6 - 10.7 10*3/uL [facility] Comprehensive metabolic 1998 panelon 08-17-2022 Albumin [Mass/Vol] 3.5 g/dL 3.5 - 5.0 g/dL [facility] ALP [Catalytic activity/Vol] 94 U/L 38 - 126 U/L [facility] ALT [Catalytic activity/Vol] 16 U/L 0 - 49 U/L [facility] Anion gap [Moles/Vol] 4 mmol/L 3 - 13 mmol/L [facility] AST [Catalytic activity/Vol] 25 U/L 15 - 46 U/L [facility] Bilirubin [Mass/Vol] 0.5 mg/dL 0.2 - 1 .3 mg/dL [facility] Calcium [Mass/Vol] 8.6 mg/dL 8.4 - 10. 4 mg/dL [facility] Chloride [Moles/Vol] 104 mmol/L 98 - 10 7 mmol/L [facility] CO2 [Moles/Vol] 24 mmol/L 22 - 30 mmol/L [facility] Creatinine [Mass/Vol] 0.56 mg/dL Low 0.66 - 1.25 mg/dL [facility] GFR/1.73 sq M.predicted MDRD (S/P/Bld) [Vol rate/Area] - PINF [facility] Comment on above: Calculation based on the Chronic Kidney Disease Epidemiology Collaboration (CKD-EPI) equation refit without adjustment for race Glucose [Mass/Vol] 316 mg/dL High 70 - 100 mg/dL [facility] Interpretation and review of laboratory results Abnormal [facility] Potassium [Moles/Vol] 3.8 mmol/L 3.5 - 5.1 mmol/L [facility] Protein [Mass/Vol] 6.2 g/dL Low 6.3 - 8.2 g/dL [facility] Sodium [Moles/Vol] 132 mmol/L Low 135 - 145 mmol/L [facility] Urea nitrogen [Mass/Vol] 15 mg/dL 9 - 20 mg/dL [facility] POCT glucose meteron 023 Glucose [Mass/Vol] 95 mg/dL 70 - 100 mg/dL [facility] Interpretation and review of laboratory results Normal [facility] Performed by: [facility], [address] [place] [address] CLIA ID: [id number] [facility] Glucose [Mass/Vol] 222 mg/dL High 70 - 100 mg/dL [facility] Interpretation and review of laboratory results Abnormal [facility] Performed by: [facility], [address] [place] [address] CLIA ID: [id number] [facility] Glucose [Mass/Vol] 430 mg/dL High 70 - 100 mg/dL [facility] Interpretation and review of laboratory results Abnormal [facility] Performed by: [facility], [address] [place] [address] CLIA ID: [id number] [facility] Glucose [Mass/Vol] 346 mg/dL High 70 - 100 mg/dL [facility] Interpretation and review of laboratory results Abnormal [facility] Performed by: [facility], [address] [facility] [address] CLIA ID: [id number] [facility] Glucose [Mass/Vol] 274 mg/dL High 70 - 100 mg/dL [facility] Interpretation and review of laboratory results Abnormal [facility] Performed by: [facility], [address] [facility] [address] CLIA ID: [id number] [facility] CBC W Auto Differential pane l (Bld)on 08-16-2022 Basophils (Bld) [#/Vol] 0.1 10*3/uL 0.0 - 0.2 10*3/uL [facility] Basophils/100 WBC (Bld) 0.4 % 0.0 - 2.0 % [facility] Eosinophils (Bld) [#/Vol] 0.0 10*3/uL 0.0 - 0.5 10*3/uL [facility] Eosinophils/100 WBC (Bld) 0.0 % Low 1.0 - 6.0 % [facility] Erythrocyte distribution width (RBC) [Ratio] 13.3 % 11.5 - 14.5 % [facility] Hematocrit (Bld) [Volume fraction] 41.8 % 40.0 - 52.0 % [facility] Hemoglobin (Bld) [Mass/Vol] 13.9 g/dL 13.0 - 18.0 g/dL [facility] Interpretation and review of laboratory results Abnormal [facility] Lymphocytes (Bld) [#/Vol] 1.5 10*3/uL 1.0 - 4.3 10*3/uL [facility] Lymphocytes/100 WBC (Bld) 6.9 % Low 20.0 - 40.0 % [facility] MCH (RBC) [Entitic mass] 30.2 pg 26.0 - 34.0 pg [facility] MCHC (RBC) [Mass/Vol] 33.2 % 32.0 - 36.0 % [facility] MCV (RBC) [Entitic vol] 90.8 fL 80.0 - 98.0 fL [facility] Monocytes (Bld) [#/Vol] 0.8 10*3/uL 0.0 - 0.8 10*3/uL [facility] Monocytes/100 WBC (Bld) 4.0 % 2.0 - 10.0 % [facility] Neutrophils (Bld) [#/Vol] 18.7 10*3/uL High 1.8 - 7.0 10*3/uL [facility] Neutrophils/100 WBC (Bld) 88.7 % High 40.0 - 80.0 % [facility] Nucleated RBC/100 WBC (Bld) [Ratio] 0.0 % [facility] Platelet mean volume (Bld) [Entitic vol] 9.4 fL 7.4 - 12.4 fL [facility] Platelets (Bld) [#/Vol] 288 10*3/uL 140 - 440 10*3/uL [facility] RBC (Bld) [#/Vol] 4.61 10*6/uL 4.40 - 5.9 0 10*6/uL [facility] WBC (Bld) [#/Vol] 21.1 10*3/uL High 3.6 - 10.7 10*3/uL [facility] Comprehensive metabolic 1998 panelon 08-16-2022 Albumin [Mass/Vol] 4.1 g/dL 3.5 - 5.0 g/dL [facility] ALP [Catalytic activity/Vol] 111 U/L 38 - 126 U/L [facility] ALT [Catalytic activity/Vol] 16 U/L 0 - 49 U/L [facility] Anion gap [Moles/Vol] 10 mmol/L 3 - 13 mmol/L [facility] AST [Catalytic activity/Vol] 24 U/L 15 - 46 U/L [facility] Bilirubin [Mass/Vol] 0.5 mg/dL 0.2 - 1 .3 mg/dL [facility] Calcium [Mass/Vol] 9.1 mg/dL 8.4 - 10. 4 mg/dL [facility] Chloride [Moles/Vol] 106 mmol/L 98 - 10 7 mmol/L [facility] CO2 [Moles/Vol] 18 mmol/L Low 22 - 30 mmol/L [facility] Creatinine [Mass/Vol] 0.62 mg/dL Low 0.66 - 1.25 mg/dL [facility] GFR/1.73 sq M.predicted MDRD (S/P/Bld) [Vol rate/Area] - PINF [facility] Comment on above: Calculation based on the Chronic Kidney Disease Epidemiology Collaboration (CKD-EPI) equation refit without adjustment for race Glucose [Mass/Vol] 352 mg/dL High 70 - 100 mg/dL [facility] Interpretation and review of laboratory results Abnormal [facility] Potassium [Moles/Vol] 4.0 mmol/L 3.5 - 5.1 mmol/L [facility] Protein [Mass/Vol] 7.0 g/dL 6.3 - 8.2 g/dL [facility] Sodium [Moles/Vol] 133 mmol/L Low 135 - 145 mmol/L [facility] Urea nitrogen [Mass/Vol] 13 mg/dL 9 - 20 mg/dL [facility] POCT glucose meteron 023 Glucose [Mass/Vol] 88 mg/dL 70 - 100 mg/dL [facility] Interpretation and review of laboratory results Normal [facility] Performed by: [facility], [address] [place] [address] CLIA ID: [id number] [facility] Glucose [Mass/Vol] 249 mg/dL High 70 - 100 mg/dL [facility] Interpretation and review of laboratory results Abnormal [facility] Performed by: [facility], [address] [place] [address] CLIA ID: [id number] [facility] Glucose [Mass/Vol] 265 mg/dL High 70 - 100 mg/dL [facility] Interpretation and review of laboratory results Abnormal [facility] Performed by: [facility], [address] [place] [address] CLIA ID: [id number] [facility] Glucose [Mass/Vol] 362 mg/dL High 70 - 100 mg/dL [facility] Interpretation and review of laboratory results Abnormal [facility] Performed by: [facility], [address] [place] [address] CLIA ID: [id number] [facility] CBC W Auto Differential pane l (Bld)Ordered By: Reid Frias on 08-15-2022 Basophils (Bld) [#/Vol] 0.1 10*3/uL 0.0 - 0.2 10*3/uL [facility] Basophils/100 WBC (Bld) 0.6 % 0.0 - 2.0 % [facility] Eosinophils (Bld) [#/Vol] 0.0 10*3/uL 0.0 - 0.5 10*3/uL [facility] Eosinophils/100 WBC (Bld) 0.0 % Low 1.0 - 6.0 % [facility] Erythrocyte distribution width (RBC) [Ratio] 13.4 % 11.5 - 14.5 % [facility] Hematocrit (Bld) [Volume fraction] 40.6 % 40.0 - 52.0 % [facility] Hemoglobin (Bld) [Mass/Vol] 13.7 g/dL 13.0 - 18.0 g/dL [facility] Interpretation and review of laboratory results Abnormal [facility] Lymphocytes (Bld) [#/Vol] 1.3 10*3/uL 1.0 - 4.3 10*3/uL [facility] Lymphocytes/100 WBC (Bld) 9.2 % Low 20.0 - 40.0 % [facility] MCH (RBC) [Entitic mass] 30.5 pg 26.0 - 34.0 pg [facility] MCHC (RBC) [Mass/Vol] 33.7 % 32.0 - 36.0 % [facility] MCV (RBC) [Entitic vol] 90.6 fL 80.0 - 98.0 fL [facility] Monocytes (Bld) [#/Vol] 0.5 10*3/uL 0.0 - 0.8 10*3/uL [facility] Monocytes/100 WBC (Bld) 3.6 % 2.0 - 10.0 % [facility] Neutrophils (Bld) [#/Vol] 12.6 10*3/uL High 1.8 - 7.0 10*3/uL [facility] Neutrophils/100 WBC (Bld) 86.6 % High 40.0 - 80.0 % [facility] Nucleated RBC/100 WBC (Bld) [Ratio] 0.0 % [facility] Platelet mean volume (Bld) [Entitic vol] 9.6 fL 7.4 - 12.[address] [facility] Platelets (Bld) [#/Vol] 304 10*3/uL 140 - 440 10*3/uL [facility] RBC (Bld) [#/Vol] 4.48 10*6/uL 4.40 - 5.9 0 10*6/uL [facility] WBC (Bld) [#/Vol] 14.5 10*3/uL High 3.6 - 10.7 10*3/uL [facility] Comprehensive metabolic 1998 panelOrdered By: Osei Lynch on 08-15-2022 Albumin [Mass/Vol] 4.4 g/dL 3.5 - 5.0 g/dL [facility] ALP [Catalytic activity/Vol] 120 U/L 38 - 126 U/L [facility] ALT [Catalytic activity/Vol] 17 U/L 0 - 49 U/L [facility] Anion gap [Moles/Vol] 15 mmol/L High 3 - 13 mmol/L [facility] AST [Catalytic activity/Vol] 26 U/L 15 - 46 U/L [facility] Bilirubin [Mass/Vol] 0.7 mg/dL 0.2 - 1 .3 mg/dL [facility] Calcium [Mass/Vol] 8.8 mg/dL 8.4 - 10. 4 mg/dL [facility] Chloride [Moles/Vol] 103 mmol/L 98 - 10 7 mmol/L [facility] CO2 [Moles/Vol] 20 mmol/L Low 22 - 30 mmol/L [facility] Creatinine [Mass/Vol] 0.65 mg/dL Low 0.66 - 1.25 mg/dL [facility] GFR/1.73 sq M.predicted MDRD (S/P/Bld) [Vol rate/Area] - PINF [facility] Comment on above: Calculation based on the Chronic Kidney Disease Epidemiology Collaboration (CKD-EPI) equation refit without adjustment for race Glucose [Mass/Vol] 334 mg/dL High 70 - 100 mg/dL [facility] Interpretation and review of laboratory results Abnormal [facility] Potassium [Moles/Vol] 4.0 mmol/L 3.5 - 5.1 mmol/L [facility] Protein [Mass/Vol] 7.3 g/dL 6.3 - 8.2 g/dL [facility] Sodium [Moles/Vol] 139 mmol/L 135 - 145 mmol/L [facility] Urea nitrogen [Mass/Vol] 12 mg/dL 9 - 20 mg/dL [facility] Glucose (Bld) [Mass/Vol]on 0 4-19-2023 Glucose [Mass/Vol] 445 mg/dL High 70 - 100 mg/dL [facility] Interpretation and review of laboratory results Abnormal [facility] MR Abdomen WO contraston Patient Name: GANESH BUSH : 1955 [facility]#: [id number] Exam Date/Time: 08/15/2022 11:46 Procedure: MR ABDOMEN [...] Mild degenerative spondylosis in the visualized spine. [facility] Denis Gilbert MD - 08/15/2022 Patient Name: GANESH BUSH : 1955 [facility]#: [id number] Exam Date/Time: 08/15/2022 11:46 Procedure: MR ABDOMEN [...] Electronically Signed Date/Time: 08/15/2022 3:43 PM EDT [facility] Radiology Study observation (narrative) Yuliana Guadarrama alth MR Abdomen WO contrastOrdere d By: Denis Gilbert on 08-15-2022 [facility] Work Phone: No Panel Informationon 08-15 Performed by: J. [facility], [address] [facility] [address] CLIA ID: [id number] [facility] POCT glucose meteron 023 Glucose [Mass/Vol] 333 mg/dL High 70 - 100 mg/dL [facility] Interpretation and review of laboratory results Abnormal [facility] Performed by: [facility], [address] [place] [address] CLIA ID: [id number] [facility] Glucose [Mass/Vol] 207 mg/dL High 70 - 100 mg/dL [facility] Glucose [Mass/Vol] 88 mg/dL 70 - 100 mg/dL [facility] Interpretation and review of laboratory results Abnormal [facility] Interpretation and review of laboratory results Normal [facility] Glucose [Mass/Vol] 71 mg/dL 70 - 100 mg/dL [facility] Interpretation and review of laboratory results Normal [facility] Performed by: [facility], [address] [address] CLIA ID: [id number] [facility] Glucose [Mass/Vol] mg/dL High 70 - 100 mg/dL [facility] Comment on above: Caregiver Notified; Interpretation and review of laboratory results Abnormal [facility] Performed by: [facility], [address] [facility] [address] CLIA ID: [id number] [facility] Glucose [Mass/Vol] mg/dL High 70 - 100 mg/dL [facility] Comment on above: Result Not Confirmed ; Interpretation and review of laboratory results Abnormal [facility] Performed by: [facility], [address] [facility] [address] CLIA ID: [id number] [facility] Beta Hydroxybutyrateon 08-14 Beta hydroxybutyrate [Mass/Vol] 22.50 mg/dL High 0.20 - 2.81 mg/dL [facility] Interpretation and review of laboratory results Abnormal [facility] CBC W Auto Differential pane l (Bld)Ordered By: Millie Walker on 08-14-2022 Basophils (Bld) [#/Vol] 0.4 10*3/uL High 0.0 - 0.2 10*3/uL [facility] Basophils/100 WBC (Bld) 2.2 % High 0.0 - 2.0 % [facility] Eosinophils (Bld) [#/Vol] 0.2 10*3/uL 0.0 - 0.5 10*3/uL [facility] Eosinophils/100 WBC (Bld) 1.4 % 1.0 - 6.0 % [facility] Erythrocyte distribution width (RBC) [Ratio] 13.3 % 11.5 - 14.5 % [facility] Hematocrit (Bld) [Volume fraction] 44.2 % 40.0 - 52.0 % [facility] Hemoglobin (Bld) [Mass/Vol] 15.0 g/dL 13.0 - 18.0 g/dL [facility] Interpretation and review of laboratory results Abnormal [facility] Lymphocytes (Bld) [#/Vol] 0.7 10*3/uL Low 1.0 - 4.3 10*3/uL [facility] Lymphocytes/100 WBC (Bld) 4.4 % Low 20.0 - 40.0 % [facility] MCH (RBC) [Entitic mass] 30.5 pg 26.0 - 34.0 pg [facility] MCHC (RBC) [Mass/Vol] 34.0 % 32.0 - 36.0 % [facility] MCV (RBC) [Entitic vol] 89.5 fL 80.0 - 98.0 fL [facility] Monocytes (Bld) [#/Vol] 0.3 10*3/uL 0.0 - 0.8 10*3/uL [facility] Monocytes/100 WBC (Bld) 1.6 % Low 2.0 - 10.0 % [facility] Neutrophils (Bld) [#/Vol] 14.4 10*3/uL High 1.8 - 7.0 10*3/uL [facility] Neutrophils/100 WBC (Bld) 90.4 % High 40.0 - 80.0 % [facility] Nucleated RBC/100 WBC (Bld) [Ratio] 0.0 % [facility] Platelet mean volume (Bld) [Entitic vol] 9.6 fL 7.4 - 12.[address] [facility] Platelets (Bld) [#/Vol] 288 10*3/uL 140 - 440 10*3/uL [facility] RBC (Bld) [#/Vol] 4.94 10*6/uL 4.40 - 5.9 0 10*6/uL [facility] WBC (Bld) [#/Vol] 16.0 10*3/uL High 3.6 - 10.7 10*3/uL [facility] CT Abdomen and Pelvis W cont rast [...] Hdz Electronically Signed Date/Time: 08/14/2022 11:24 AM [facility] Patient Name: GANESH BUSH : [...] discogenic degenerative changes of the thoracolumbar spine. [facility] Victor Manuel Hdz MD - 08/14/2022 [facility] Name[facility] 1955 [id number] Exam Date/Time: 08/14/2022 10:49 Procedure: CT ABDOMEN [...] Electronically Signed Date/Time: 08/14/2022 11:24 AM EDT [facility] Radiology Study observation (narrative) [facility] alth CT Abdomen and Pelvis W cont rast IVOrdered By: Victor Manuel Hdz on 08-14-2022 [facility] Work Phone: Comprehensive metabolic 1998 panelon 08-14-2022 Albumin [Mass/Vol] 4.8 g/dL 3.5 - 5.0 g/dL [facility] ALP [Catalytic activity/Vol] 110 U/L 38 - 126 U/L [facility] ALT [Catalytic activity/Vol] 18 U/L 0 - 49 U/L [facility] Anion gap [Moles/Vol] 10 mmol/L 3 - 13 mmol/L [facility] AST [Catalytic activity/Vol] 37 U/L 15 - 46 U/L [facility] Bilirubin [Mass/Vol] 1.0 mg/dL 0.2 - 1 .3 mg/dL [facility] Calcium [Mass/Vol] 9.6 mg/dL 8.4 - 10. 4 mg/dL [facility] Chloride [Moles/Vol] 102 mmol/L 98 - 10 7 mmol/L [facility] CO2 [Moles/Vol] 23 mmol/L 22 - 30 mmol/L [facility] Creatinine [Mass/Vol] 0.77 mg/dL 0.66 - 1.25 mg/dL [facility] GFR/1.73 sq M.predicted MDRD (S/P/Bld) [Vol rate/Area] - PINF [facility] Comment on above: Calculation based on the Chronic Kidney Disease Epidemiology Collaboration (CKD-EPI) equation refit without adjustment for race Glucose [Mass/Vol] 380 mg/dL High 70 - 100 mg/dL [facility] Interpretation and review of laboratory results Abnormal [facility] Potassium [Moles/Vol] 5.1 mmol/L 3.5 - 5.1 mmol/L [facility] Protein [Mass/Vol] 8.4 g/dL High 6.3 - 8.2 g/dL [facility] Sodium [Moles/Vol] 135 mmol/L 135 - 145 mmol/L [facility] Urea nitrogen [Mass/Vol] 12 mg/dL 9 - 20 mg/dL [facility] Specimen slightly hemolyzed. Interpret with caution. [facility] ECG 12 leadon 08-14-2022 Heart rate 96 /min bpm [facility] P Hardy 43 degrees [facility] OK Interval 162 ms [facility] QRS Hardy -5 degrees [facility] QRSD Interval [facility]val 365 ms [facility] QTC Interval 462 ms [facility] T Wave Hardy 59 degrees [facility] EKG demonstrates nor mal sinus rhythm with a normal axis, normal OK intervals, and normal QTC. No ST elevation or T-wave inversions. Electronically Signed On 08-14-2022 12:43:37 EDT by Frederic Ware MD - 08/14/2022 IMPRESSION: EKG demonstrates normal sinus rhythm with a normal axis, normal OK intervals, and normal QTC. No ST elevation or T-wave inversions. Electronically Signed On 08-14-2022 12:43:37 EDT by Danika Marie [facility] Glucose (Bld) [Mass/Vol]on 0 08-14-2022 Glucose [Mass/Vol] 333 mg/dL High 70 - 100 mg/dL [facility] Interpretation and review of laboratory results Abnormal [facility] HbA1c (Bld) [Mass fraction]o n 08-14-2022 Glucose [Mass/Vol] 169 mg/dL [facility] HbA1c (Bld) [Mass/Vol] 7.5 % High NINF - 5.7 % [facility] Comment on above: Normal less than 5.7 % Prediabetes 5.7% to 6.4% Diabetes 6.5% or higher --HgbA1C levels may not be accurate in patients who have renal disease, received recent blood transfusions, are anemic, or who have dyshemoglobinemia. Interpretation and review of laboratory results Abnormal [facility] Lactic acid, sepsis, with re flex if elevatedon 08-14-2022 Interpretation and review of laboratory results Normal [facility] Lactate [Moles/Vol] 1.8 mmol/L 0.7 - 2. 0 mmol/L [facility] Lipaseon 08-14-2022 Lipase [Catalytic activity/Vol] 62 U/L 23 - 300 U/L [facility] Lipase [Catalytic activity/V ol]on 08-14-2022 Interpretation and review of laboratory results Normal [facility] No Panel Informationon 08-14 [facility] POCT glucose meteron 023 Glucose [Mass/Vol] 220 mg/dL High 70 - 100 mg/dL [facility] Interpretation and review of laboratory results Abnormal [facility] Performed by: [facility], [address] [place] [address] CLIA ID: [id number] [facility] Glucose [Mass/Vol] 308 mg/dL High 70 - 100 mg/dL [facility] Interpretation and review of laboratory results Abnormal [facility] Performed by: [facility], [address] [place] [address] CLIA ID: [id number] [facility] Glucose [Mass/Vol] mg/dL High 70 - 100 mg/dL [facility] Comment on above: Caregiver Notified; Interpretation and review of laboratory results Abnormal [facility] Performed by: [facility], [address] [place] [address] CLIA ID: [id number] [facility] POCT venous blood gason 07-28 Base excess Calc (BldV) [Moles/Vol] 1.0 mmol/L -3 - 3 mmol/L [facility] CO2 (BldV) [Partial pressure] 34.9 mm[Hg] Low [facility] CO2 [Moles/Vol] 25.5 mmol/L 24.0 - 28.0 mmol/L [facility] FIO2 21 [facility] Comment on above: Performed by CLIA ID : [id number] [place], [place] ?Device: [id number] Customs Broker ID: [id number] HCO3 (Bld) [Moles/Vol] 24.4 mmol/L 23.0 - 27.0 mmol/L [facility] Interpretation and review of laboratory results Abnormal [facility] Oxygen (BldV) [Partial pressure] Low [facility] Oxygen saturation in Venous blood 58.7 % Low 60.0 - 80.0 % [facility] pH (BldV) 7.454 [pH] High 7.330 - 7.430 pH [facility] Performed by: [facility], [address] [place] [address] CLIA ID: [id number] [facility] Procalcitonin Teston 023 Procalcitonin [Mass/Vol] 0.05 ng/mL 0.00 - 0.09 ng/mL [facility] Procalcitonin [Mass/Vol]on 0 08-14-2022 Interpretation and review of laboratory results Normal [facility] PCT <0.50 = Low risk of severe sepsis and/or septic shock. PCT >2.00 = High risk of severe sepsis and/or septic shock. [facility] SARS-CoV-2, Flu A/B, and RSV Comboon 08-14-2022 FLUAV RNA GREGORIO+probe Ql (Resp) Not detected Not Detected [facility] FLUBV RNA GREGORIO+probe Ql (Resp) Not detected Not Detected [facility] Interpretation and review of laboratory results Normal [facility] RSV RNA GREGORIO+probe Ql (Resp) Not detected Not Detected [facility] SARS-CoV-2 (COVID-19) RNA GREGORIO+probe Ql (Resp) Not detected Not Detected [employer] SARS-CoV-2 (COVID-19) RNA GREGORIO+probe Ql (Unsp spec) Methodology: real-time, RT-PCR The SARS-CoV-2, Flu A/B, and RSV Combo assay is intended for in vitro diagnostic use under the FDA Emergency Use Authorization (EUA). This test has not been FDA cleared or approved. In compliance with this authorization, please visit www.fda.gov/media/14575 5/download or www.fda.gov/media/34458 6/download to access the applicable information sheets. [facility] US Abdomen limitedon 023 The common bile duct is dilated measuring 9 mm in diameter. Two gallbladder polyps versus adherent stones. Follow-up ultrasound in six months is recommended. Report Dictated on Electronically Signed By: Victor Manuel Hdz Electronically Signed Date/Time: 08/14/2022 2:11 PM EDT [email or web address] [facility] Patient Name: GANESH BUSH : 1955 [...] Right kidney: No pelvicalyceal dilatation Ascites: None [facility] Victor Manuel Hdz MD - 08/14/2022 Patient Name: GANESH BUSH : 1955 Exam Date/Time: 08/14/2022 13:41 Procedure: US ABDOMEN LIMITED Ordering Provider: MAIRE J Reason For Exam: RUQ abdominal pain, [...] Electronically Signed Date/Time: 08/14/2022 2:11 PM EDT [facility] Radiology Study observation (narrative) [place] Urinalysis complete panel (U )Ordered By: Xochilt Strickland on 08-14-2022 Bacteria LM.HPF (Urine sed) [#/Area] Negative Negative /HPF [facility] Bilirubin Ql (U) Negative Negative mg/dL [facility] Clarity (U) Clear Clear [facility] Color (U) Light Yellow Lt. Yellow [facility] Epithelial cells.squamous LM.HPF (Urine sed) [#/Area] Negative [facility] h Glucose Ql (U) >1,000 Abnormal Normal (<70) mg/dL [facility] Hemoglobin Ql (U) Negative Negative mg/dL [facility] Interpretation and review of laboratory results Abnormal [facility] Ketones (U) [Mass/Vol] 80 mg/dL Abnormal Negative [facility] Leukocyte esterase Test strip Ql (U) Negative Negative Nikita/uL [facility] Mucus LM.HPF (Urine sed) [#/Area] Few Negative /LPF [facility] Nitrite Ql (U) Negative Negative [facility] th pH (U) 7.0 [pH] 5.0 - 8.0 pH [facility] Protein (U) [Mass/Vol] 20 mg/dL Abnormal Negative [facility] RBC LM.HPF (Urine sed) [#/Area] 0-2 [facility] Specific gravity (U) [Rel density] 1.027 1.005 - 1.030 [facility] Urobilinogen (U) [Mass/Vol] Normal Normal (0-1) mg/dL [facility] WBC LM.HPF (Urine sed) [#/Area] 0-2 [facility] Comp Metabolic Panelon 01-11 ALP [Catalytic activity/Vol] 103 U/L Normal 38-126 [facility] Comment on above: Performed By: #### H EMDF, ETOH4, CMP3 #### [facility] [address] [place] [address] ALT [Catalytic activity/Vol] 32 U/L Normal 0-49 [facility] Comment on above: Result Comment: The ALT test is performed by an updated assay method. Please note that the reference intervals have been changed and are now sex specific. Performed By: #### H EMDF, ETOH4, CMP3 #### [facility] [address] [place] [address] Anion gap [Moles/Vol] 10 mmol/L Normal 3-13 [facility] Comment on above: Performed By: #### H EMDF, ETOH4, CMP3 #### [facility] [address] [place] [address] AST [Catalytic activity/Vol] 56 U/L High 15-46 [facility] Comment on above: Performed By: #### H EMDF, ETOH4, CMP3 #### [facility] [address] [place] [address] Calcium [Mass/Vol] 8.9 mg/dL Normal 8.4-10.4 [facility] Comment on above: Performed By: #### H EMDF, ETOH4, CMP3 #### [facility] [address] [place] [address] CO2 [Moles/Vol] 24 mmol/L Normal 22-30 [facility] Comment on above: Performed By: #### H EMDF, ETOH4, CMP3 #### [facility] [address] [place] [address] Glucose [Mass/Vol] 265 mg/dL High 70-100 [facility] Comment on above: Performed By: #### H EMDF, ETOH4, CMP3 #### [facility] [address] [place] [address] Protein [Mass/Vol] 8.1 g/dL Normal 6.3-8.2 [facility] Comment on above: Performed By: #### H EMDF, ETOH4, CMP3 #### [facility] [address] [place] [address] Urea nitrogen [Mass/Vol] 13 mg/dL Normal 7-17 [facility] Comment on above: Performed By: #### H EMDF, ETOH4, CMP3 #### [facility] [address] [place] [address] Bilirubin [Mass/Vol] 0.8 mg/dL Normal 0.2-1.3 [facility] Comment on above: Performed By: #### H EMDF, ETOH4, CMP3 #### [facility] [address] [place] [address] Creatinine [Mass/Vol] 0.55 mg/dL Normal 0.52-1.25 [facility] Comment on above: Performed By: #### H EMDF, ETOH4, CMP3 #### [facility] [address] [place] [address] eGFR OTHER > 90.0 Normal >60 [facility] Comment on above: Result Comment: KDIG O [...] By: #### H EMDF, ETOH4, CMP3 #### [facility] [address] [place] [address] GFR/1.73 sq M.predicted among blacks MDRD (S/P/Bld) [Vol rate/Area] mL/min/{1.73_m2} Normal >60 [facility] Comment on above: Performed By: #### H EMDF, ETOH4, CMP3 #### [facility] [address] [place] [address] Chloride [Moles/Vol] 100 mmol/L Normal 98-107 [facility] Comment on above: Performed By: #### H EMDF, ETOH4, CMP3 #### [facility] [address] [place] [address] Potassium [Moles/Vol] 5.1 mmol/L Normal 3.5-5.1 [facility] Comment on above: Performed By: #### H EMDF, ETOH4, CMP3 #### [facility] [address] [place] [address] Sodium [Moles/Vol] 134 mmol/L Low 135-145 [facility] Comment on above: Performed By: #### H EMDF, ETOH4, CMP3 #### [facility] [address] [place] [address] Albumin [Mass/Vol] 4.5 g/dL Normal 3.5-5.0 [facility] Comment on above: Performed By: #### H EMDF, ETOH4, CMP3 #### [facility] [address] [place] [address] Drugs of Abuseon 01-11-2022 Phencyclidine (PCP), Ur Negative Normal [facility] Comment on above: Result Comment: The [...] order. Performed By: #### F ENTU #### [facility] [address] [facility] [place] #### DRGA4 #### [facility] [address] [place] [address] Methadone, Ur Negative Normal [facility] Comment on above: Performed By: #### F ENTU #### [facility] [address] [facility] [place], [place] #### DRGA4 #### [facility] [address] [place] [address] Opiates, Ur Negative Normal [facility] Comment on above: Performed By: #### F ENTU #### [facility] [address] [facility] [place] #### DRGA4 #### [facility] [address] [place] [address] Barbiturates, Ur Negative Normal [facility] Comment on above: Performed By: #### F ENTU #### [facility] [address] [facility] [place], [place] #### DRGA4 #### [facility] [address] [place] [address] Cocaine, Ur Negative Normal [facility] Comment on above: Performed By: #### F ENTU #### [facility] [address] [facility] [place], [place] #### DRGA4 #### [facility] [address] [place] [address] Amphetamines, Ur Negative Normal [facility] Comment on above: Performed By: #### F ENTU #### [facility] [address] [facility] [place], [place] #### DRGA4 #### [facility] [address] [place] [address] Benzodiazepines, Ur Negative Normal [facility] Comment on above: Performed By: #### F ENTU #### [facility] [address] [facility] [place] [address] #### DRGA4 #### [facility] [address] [place] [address] Oxycodone/Oxymorphine,U r Negative Normal [facility] Comment on above: Performed By: #### F ENTU #### [facility] [address] [facility] [place] [address] #### DRGA4 #### [facility] [address] [place] [address] ED Provider Noteon ED Provider Note Emergency [...] I, Dr. 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 All diagnostic, treatment, and disposition [...] [employer] Austin Rodriguez, DO 01/11/22 1330 Normal [facility] ED Provider Note RENA [facility] ED eMERGENCY [...] HERNIA REPAIR TONSILLECTOMY UPPER GASTROINTESTINAL ENDOSCOPY 03/16/2015 [facility] [employer]ENT [employer]ACEMENT Common bile duct [...] Activity: Insufficiently (more content not included)... Normal [facility] Ethanol Serum/Plasmaon 01-11 Ethanol-Serum/Plasma < 0.010 Normal 0.000-0.010 [facility] Comment on above: Result Comment: NOTE : This result is for medical treatment only. Analysis performed using non-forensic procedures. Performed By: #### H EMDF, ETOH4, CMP3 #### [facility] [address] [place] [address] Fentanyl Screen, Urineon Fentanyl Screen, Urn Positive Normal Negative [facility] Comment on above: Result Comment: Fent anyl has been screened for by Immunoassay at a 1 ng/ml threshold. POSITIVE results are not confirmed by a more specific alternative method unless requested. If confirmation is needed, request confirmation under separate order. NOTE: These results are for medical treatment only. Analysis performed using non-forensic procedures. Performed By: #### F ENTU #### [facility] [address] [place] [address] #### DRGA4 #### [facility] [address] [place] [address] Hemogram w/ Autodiffon 01-11 Abs Baso Cnt 0.1 10*3/uL Normal 0.0-0.2 [facility] Comment on above: Performed By: #### H EMDF, ETOH4, CMP3 #### [facility] [address] [place] [address] Abs Neutrophile Cnt 11.2 10*3/uL High 1.8-7.0 [facility] Comment on above: Performed By: #### H EMDF, ETOH4, CMP3 #### [facility] [address] [place] [address] Basophils/100 WBC (Bld) 1.0 % Normal 0.0-2.0 S [facility] Comment on above: Performed By: #### H EMDF, ETOH4, CMP3 #### [facility] [address] [place] [address] Eosinophils (Bld) [#/Vol] 0.2 10*3/uL Normal 0.0-0.5 [facility] Comment on above: Performed By: #### H EMDF, ETOH4, CMP3 #### [facility] [address] [place] [address] Eosinophils/100 WBC (Bld) 1.7 % Normal 1.0-6.0 [facility] Comment on above: Performed By: #### H EMDF, ETOH4, CMP3 #### [facility] [address] [place] [address] Erythrocyte distribution width (RBC) [Ratio] 13.4 % Normal 11.5-14.5 [facility] Comment on above: Performed By: #### H EMDF, ETOH4, CMP3 #### [facility] [address] [place] [address] Granulocytes/100 WBC (Bld) 82.1 % High 40.0-80.0 [facility] Comment on above: Performed By: #### H EMDF, ETOH4, CMP3 #### [facility] [address] [place] [address] Hematocrit (Bld) [Volume fraction] 42.4 % Normal 40.0-52.0 [facility] Comment on above: Performed By: #### H EMDF, ETOH4, CMP3 #### [facility] [address] [place] [address] Hemoglobin (Bld) [Mass/Vol] 14.4 g/dL Normal 13.0-18.0 [facility] Comment on above: Performed By: #### H EMDF, ETOH4, CMP3 #### [facility] [address] [place] [address] Lymphocytes (Bld) [#/Vol] 1.5 10*3/uL Normal 1.0-4.3 [facility] Comment on above: Performed By: #### H EMDF, ETOH4, CMP3 #### [facility] [address] [place] [address] Lymphocytes/100 WBC (Bld) 11.3 % Low 20.0-40.0 [facility] Comment on above: Performed By: #### H EMDF, ETOH4, CMP3 #### [facility] [address] [place] [address] MCH (RBC) [Entitic mass] 31.3 pg Normal 26.0-34.0 [facility] Comment on above: Performed By: #### H EMDF, ETOH4, CMP3 #### [facility] [address] [place] [address] MCHC 34.0 % Normal 32.0-36.0 [facility] Comment on above: Performed By: #### H EMDF, ETOH4, CMP3 #### [facility] [address] [place] [place] [id number] MCV (RBC) [Entitic vol] 92.1 fL Normal 80.0-98.0 S [facility] Comment on above: Performed By: #### H EMDF, ETOH4, CMP3 #### [facility] [address] [place] [address] Monocytes (Bld) [#/Vol] 0.5 10*3/uL Normal 0.0-0.8 [facility] Comment on above: Performed By: #### H EMDF, ETOH4, CMP3 #### [facility] [address] [place] [address] Monocytes/100 WBC (Bld) 3.9 % Normal 2.0-10.0 S [facility] Comment on above: Performed By: #### H EMDF, ETOH4, CMP3 #### [facility] [address] [place] [address] Platelet mean volume (Bld) [Entitic vol] 8.6 fL Normal 7.4-12.4 [facility] Comment on above: Result Comment: MPV is a calculated measurement using platelet volume ratio. Performed By: #### H EMDF, ETOH4, CMP3 #### [facility] [address] [place] [address] Platelets (Bld) [#/Vol] 309 10*3/uL Normal 140-440 [facility] Comment on above: Performed By: #### H EMDF, ETOH4, CMP3 #### [facility] [address] [place] [address] RBC (Bld) [#/Vol] 4.61 10*6/uL Normal 4.40-5.90 [facility] Comment on above: Performed By: #### H EMDF, ETOH4, CMP3 #### [facility] [address] [place] [address] WBC (Bld) [#/Vol] 13.6 10*3/uL High 3.6-10.7 [facility] Comment on above: Performed By: #### H EMDF, ETOH4, CMP3 #### [facility] [address] [place] [address] ED Provider Noteon ED Provider Note Eloped from the emergency department. Alvin Hernandez MD 01/11/22 0118 Normal [facility] CT Low Dose Lung Screeningon 2021 CT Low Dose Lung Screening Patient Name: GANESH BUSH Computed Tomography ACCESSION EXAM DATE/TIME PROCEDURE ORDERING PROVIDER [id number] 2021 18:[address] Low Dose Lung [...] and 2; (more content not included)... Normal [facility] XR CERVICAL SPINE (4-5 VIEWS )on 04-19-2020 Patient Name: GANESH BUSH Diagnostic Radiology ACCESSION EXAM DATE/TIME PROCEDURE ORDERING PROVIDER [id number] 04/19/2020 10:47 EST CR Spine Cervical 4+ MD LR DARRELL Views LEROY CPT code 15892 Reason For Exam (CR Spine Cervical 4+ [...] LAURA Transcribed Date and Time: 04/19/2020 11:36 [facility], Yuliana Fox Incoming Radiology Results From [facility] - 04/19/2020 11:36 AM EST Patient Name: GANESH BUSH Diagnostic Radiology ACCESSION EXAM DATE/TIME PROCEDURE ORDERING PROVIDER [id number] 04/19/2020 10:47 EST CR Spine Cervical 4+ MD ADELINE, ANDREA ZUÑIGA CPT code 16791 Reason For Exam (CR Spine Cervical 4+ [...] LAURA Transcribed Date and Time: 04/19/2020 11:36 [place], [place] CBCon 09-15-2019 Erythrocyte distribution width (RBC) [Ratio] 14.3 % 11.5 - 14.5 % [place] Hematocrit (Bld) [Volume fraction] 41.3 % 40 - 52 % [place] Hemoglobin (Bld) [Mass/Vol] 13.9 g/dL 13 - 18 g/dL [place] MCH (RBC) [Entitic mass] 31.0 pg 26 - 34 pg [place] MCHC (RBC) [Mass/Vol] 33.6 % 32 - 36 % [place], [place] MCV (RBC) [Entitic vol] 92.3 fL 80 - 98 fL [place], [place] Platelet mean volume (Bld) [Entitic vol] 8.8 fL 7.4 - 10.4 fL [place] Platelets (Bld) [#/Vol] 285 10*3/uL 140 - 440 10*3/uL [place] RBC (Bld) [#/Vol] 4.48 10*6/uL 4.4 - 5.9 10*6/uL [place] WBC (Bld) [#/Vol] 9.7 10*3/uL 3.6 - 10.7 10*3/uL [place] Test Performed by [facility], [address] [place] [address] Rd. , [place], [place] [id number] [place] [address] Comprehensive Metabolic Pane meño 09-15-2019 Albumin [Mass/Vol] 4.1 g/dL 3.5 - 5 g/dL [place] ALP [Catalytic activity/Vol] 82 U/L 38 - 126 U/L [place] ALT [Catalytic activity/Vol] 13 U/L 0 - 49 U/L [place] Comment on above: The ALT test is perf ormed by an updated assay method. Please note that the reference intervals have been changed and are now sex specific. Anion gap [Moles/Vol] 10 mmol/L [place] AST [Catalytic activity/Vol] 23 U/L 15 - 46 U/L [place] Bilirubin Ql (U) 0.1 mg/dL Low 0.2 - 1.3 mg/dL [place] Calcium [Mass/Vol] 9.4 mg/dL 8.4 - 10. 4 mg/dL [place] Chloride [Moles/Vol] 102 mmol/L 98 - 10 7 mmol/L [place] CO2 [Moles/Vol] 25 mmol/L 22 - 30 mmol/L [place] Creatinine [Mass/Vol] 0.81 mg/dL 0.52 - 1.25 mg/dL [place] EGFR IF NonAfrican Ethiopian >90.0 >60 mL/min [place] Comment on above: KDIGO guidelines pro [...] MDRD (S/P/Bld) [Vol rate/Area] mL/min/{1.73_m2} >60 mL/min [place] Glucose [Mass/Vol] 290 mg/dL High 70 - 100 mg/dL [place] Interpretation and review of laboratory results Abnormal [place] Potassium [Moles/Vol] 5.0 mmol/L 3.5 - 5.1 mmol/L [place] Protein [Mass/Vol] 6.6 g/dL 6.3 - 8.2 g/dL [place] Sodium [Moles/Vol] 136 mmol/L 135 - 145 mmol/L [place] Urea nitrogen [Mass/Vol] 19 mg/dL 7 - 20 mg/dL [place] Test Performed by [facility], [address] , [place], [place] [id number] [place] [address] Emergency Room Note on 11-02-2016 [place] [facility] Note [facility] Patient Summary Documentson 11-02-2016 Patient Summary Documents Normal [facility] Vital Signs Date Time Vital Sign Value Performing Clinician Facility 09-15-2024 10:40-0400 Diastolic blood pressure 78 mm[Hg] Andrea Lr MD Work Phone: [facility] 09-15-2024 10:40-0400 Heart rate 82 /min Andrea Lr MD Work Phone: [facility] 09-15-2024 10:40-0400 Systolic blood pressure 134 mm[Hg] Andrea Lr MD Work Phone: [facility] 09-15-2024 10:09-0400 Body height 177.8 cm Andrea Lr MD Work Phone: [facility] 09-15-2024 10:09-0400 Body mass index (BMI) [Ratio] 26.37 kg/m2 Andrea Lr MD Work Phone: [facility] 09-15-2024 10:09-0400 Body weight 83.37 kg Andrea Lr MD Work Phone: [facility] 09-15-2024 10:09-0400 SaO2% (BldA) [Mass fraction] 95 % Andrea Lr MD Work Phone: [facility] 08-10-2024 22:13-0400 Diastolic blood pressure 45 mm[Hg] Dr. Jose Alfredo Valderrama DO Work Phone: [facility] 08-10-2024 22:13-0400 Heart rate 117 /min Dr. Jose Alfredo Valderrama DO Work Phone: [facility] 08-10-2024 22:13-0400 Respiratory rate 24 /min Dr. Jose Alfredo Valderrama DO Work Phone: [facility] 08-10-2024 22:13-0400 Systolic blood pressure 84 mm[Hg] Dr. Jose Alfredo Valderrama DO Work Phone: [facility] 08-10-2024 22:00-0400 Body temperature 98.6 [degF] Dr. Jose Alfredo Valderrama DO Work Phone: 5(068)[phone] [place] [address] 08-10-2024 22:00-0400 SaO2% (BldA) [Mass fraction] 98 % Dr. Jose Alfredo Valderrama DO Work Phone: 8(398)[phone] [place] [address] 08-10-2024 21:30-0400 Inhaled oxygen concentration 40 % Dr. Jose Alfredo Valderrama DO Work Phone: 4(544)[phone] [place] [address] 08-10-2024 18:27-0400 Body mass index (BMI) [Ratio] 25.2 kg/m2 Dr. Jose Alfredo Valderrama DO Work Phone: [facility] 08-10-2024 18:27-0400 Body weight 84.[address] Jose Alfredo Valderrama DO Work Phone: [facility] 08-10-2024 17:57-0400 Body height 182.[address] Jose Alfredo Valderrama DO Work Phone: [facility] 08-05-2024 11:41-0400 Body height 177.8 cm Albina Servin MED DIR - AIRCRAFT COMMUNICATOR Work Phone: [facility] 08-05-2024 11:41-0400 Body mass index (BMI) [Ratio] 26.2 kg/m2 Albina Servin MED DIR - AIRCRAFT COMMUNICATOR Work Phone: [facility] 08-05-2024 11:41-0400 Body weight 82.83 kg Albina Servin MED DIR - AIRCRAFT COMMUNICATOR Work Phone: [facility] 08-05-2024 11:41-0400 Diastolic blood pressure 68 mm[Hg] Albina Servin MED DIR - AIRCRAFT COMMUNICATOR Work Phone: [facility] 08-05-2024 11:41-0400 Heart rate 98 /min Albina Servin MED DIR - AIRCRAFT COMMUNICATOR Work Phone: [facility] 08-05-2024 11:41-0400 Systolic blood pressure 122 mm[Hg] Albina Malathi MED DIR - AIRCRAFT COMMUNICATOR Work Phone: [facility] 02-17-2024 09:16-0400 Body temperature 97.5 [degF] Kuldeep Rios MD Work Phone: [facility] 02-17-2024 09:16-0400 Diastolic blood pressure 90 mm[Hg] Kuldeep Rios MD Work Phone: [facility] 02-17-2024 09:16-0400 Heart rate 75 /min Kuldeep Rios MD Work Phone: [facility] 02-17-2024 09:16-0400 Respiratory rate 18 /min Kuldeep Rios MD Work Phone: [facility] 02-17-2024 09:16-0400 SaO2% (BldA) [Mass fraction] 97 % Kuldeep Rios MD Work Phone: [facility] 02-17-2024 09:16-0400 Systolic blood pressure 132 mm[Hg] Kuldeep Rios MD Work Phone: [facility] 02-16-2024 10:29-0400 Body height 177.8 cm Kuldeep Rios MD Work Phone: [facility] 02-15-2024 15:59-0400 Body mass index (BMI) [Ratio] 25.83 kg/m2 Kuldeep Rios MD Work Phone: [facility] 02-15-2024 15:59-0400 Body weight 81.65 kg Kuldeep Rios MD Work Phone: [facility] 10-01-2023 10:08-0400 Body height 177.8 cm Dee Pitts APRN - AIRCRAFT COMMUNICATOR Work Phone: [facility] 10-01-2023 10:08-0400 Body mass index (BMI) [Ratio] 26.69 kg/m2 Dee Pitts APRN - AIRCRAFT COMMUNICATOR Work Phone: [facility] 10-01-2023 10:08-0400 Body weight 84.37 kg Dee Pitts MED DIR - AIRCRAFT COMMUNICATOR Work Phone: [facility] 10-01-2023 10:08-0400 Diastolic blood pressure 62 mm[Hg] Dee Pitts MED DIR - AIRCRAFT COMMUNICATOR Work Phone: [facility] 10-01-2023 10:08-0400 Heart rate 60 /min Dee Pitts APRN - AIRCRAFT COMMUNICATOR Work Phone: [facility] 10-01-2023 10:08-0400 Systolic blood pressure 122 mm[Hg] Dee Pitts APRN - AIRCRAFT COMMUNICATOR Work Phone: [facility] 05-27-2023 09:32-0500 Body height 177.8 cm Rosa Partida MD Work Phone: [facility] 05-27-2023 09:32-0500 Body mass index (BMI) [Ratio] 27.06 kg/m2 Rosa Partida MD Work Phone: [facility] 05-27-2023 09:32-0500 Body weight 85.55 kg Rosa Partida MD Work Phone: [facility] 05-27-2023 09:32-0500 Diastolic blood pressure 83 mm[Hg] Rosa Partida MD Work Phone: [facility] 05-27-2023 09:32-0500 Heart rate 78 /min Rosa Partida MD Work Phone: [facility] 05-27-2023 09:32-0500 Systolic blood pressure 132 mm[Hg] Rosa Partida MD Work Phone: [facility] 11-13-2022 08:49-0400 Body height 177.8 cm Dee Pitts APRN - AIRCRAFT COMMUNICATOR Work Phone: [facility] 11-13-2022 08:49-0400 Body mass index (BMI) [Ratio] 27.26 kg/m2 Dee Foster MED DIR - AIRCRAFT COMMUNICATOR Work Phone: [facility] 11-13-2022 08:49-0400 Body weight 86.18 kg Dee Pitts MED DIR - AIRCRAFT COMMUNICATOR Work Phone: [facility] 11-13-2022 08:49-0400 Diastolic blood pressure 70 mm[Hg] Dee Pitts MED DIR - AIRCRAFT COMMUNICATOR Work Phone: [facility] 11-13-2022 08:49-0400 Heart rate 72 /min Dee Pitts MED DIR - AIRCRAFT COMMUNICATOR Work Phone: [facility] 11-13-2022 08:49-0400 Systolic blood pressure 130 mm[Hg] Dee Pitts MED DIR - AIRCRAFT COMMUNICATOR Work Phone: [facility] 08-18-2022 08:25-0400 Body temperature 97.2 [degF] LOTUS Marie MD Work Phone: [facility] 08-18-2022 08:25-0400 Diastolic blood pressure 68 mm[Hg] LOTUS Mraie MD Work Phone: [facility] 08-18-2022 08:25-0400 Heart rate 70 /min LOTUS Marie MD Work Phone: [facility] 08-18-2022 08:25-0400 Respiratory rate 16 /min LOTUS Marie MD Work Phone: [facility] 08-18-2022 08:25-0400 SaO2% (BldA) [Mass fraction] 93 % LOTUS Marie MD Work Phone: [facility] 08-18-2022 08:25-0400 Systolic blood pressure 118 mm[Hg] LOTUS Marie MD Work Phone: [facility] 08-17-2022 11:19-0400 Body height 177.8 cm LOTUS Marie MD Work Phone: [facility] 08-14-2022 16:01-0400 Body mass index (BMI) [Ratio] 25.17 kg/m2 LOTUS Marie MD Work Phone: [facility] 08-14-2022 16:01-0400 Body weight 79.56 kg LOTUS Marie MD Work Phone: [facility] 05-10-2022 09:19-0500 Body height 177.8 cm Dee Pitts MED DIR - AIRCRAFT COMMUNICATOR Work Phone: [facility] 05-10-2022 09:19-0500 Body mass index (BMI) [Ratio] 27.25 kg/m2 Dee Pitts MED DIR - AIRCRAFT COMMUNICATOR Work Phone: [facility] 05-10-2022 09:19-0500 Body weight 86.14 kg Dee Pitts MED DIR - AIRCRAFT COMMUNICATOR Work Phone: [facility] 05-10-2022 09:19-0500 Diastolic blood pressure 89 mm[Hg] Dee Pitts MED DIR - AIRCRAFT COMMUNICATOR Work Phone: [facility] 05-10-2022 09:19-0500 Heart rate 77 /min Dee Pitts MED DIR - AIRCRAFT COMMUNICATOR Work Phone: [facility] 05-10-2022 09:19-0500 Systolic blood pressure 132 mm[Hg] Dee Pitts MED DIR - AIRCRAFT COMMUNICATOR Work Phone: [facility] 05-09-2022 12:13-0500 Diastolic blood pressure 99 mm[Hg] Andrea Lr MD Work Phone: [facility] 05-09-2022 12:13-0500 Heart rate 78 /min Andrea Lr MD Work Phone: [facility] 05-09-2022 12:13-0500 Systolic blood pressure 158 mm[Hg] Andrea Lr MD Work Phone: [facility] 05-09-2022 11:56-0500 Body height 177.8 cm Andrea Lr MD Work Phone: [facility] 05-09-2022 11:56-0500 Body mass index (BMI) [Ratio] 27.12 kg/m2 Andrea Lr MD Work Phone: [facility] 05-09-2022 11:56-0500 Body weight 85.73 kg Andrea Lr MD Work Phone: [facility] 01-10-2022 19:57-0400 Body mass index (BMI) [Ratio] 28.9 kg/m2 Alvin Hernandez MD Work Phone: [facility] 01-10-2022 19:57-0400 Body temperature 98.71 [degF] Alvin Hernandez MD Work Phone: [facility] 01-10-2022 19:57-0400 Body weight 90.72 kg Alvin Hernandez MD Work Phone: [facility] 01-10-2022 19:57-0400 Diastolic blood pressure 90 mm[Hg] Alvin Hernandez MD Work Phone: [facility] 01-10-2022 19:57-0400 Heart rate 82 /min Alvin Hernandez MD Work Phone: [facility] 01-10-2022 19:57-0400 Respiratory rate 18 /min Alvin Hernandez MD Work Phone: [facility] 01-10-2022 19:57-0400 SaO2% (BldA) [Mass fraction] 96 % Alvin Hernandez MD Work Phone: [facility] 01-10-2022 19:57-0400 Systolic blood pressure 149 mm[Hg] Alvin Hernandez MD Work Phone: [facility] Encounters Encounter Date Encounter Type Care Provider Facility Start: 09-15-2024 End: 09-15-2024 ambulatory ANDREA LR [facility] Start: 09-15-2024 End: 09-15-2024 Office outpatient visit 25 minutes Andrea Lr MD Work Phone: [facility] Comment on above: Type 1 diabetes christy itus with hyperglycemia (HCC) (Primary Dx); Nausea and vomiting, unspecified vomiting type; Mixed hyperlipidemia; Primary hypothyroidism Start: 08-28-2024 ambulatory [facility] Facility:[facility] Start: 08-28-2024 End: 08-28-2024 Emergency department patient visit [facility] Facility:[facility] Start: 08-15-2024 ambulatory Andrea Lr Facility :[facility] Start: 08-12-2024 ambulatory Levon Graff Facility :[facility] Start: 08-10-2024 ambulatory Andrea Lr Facility :[facility] Start: 08-10-2024 End: 08-26-2024 Evaluation and management of inpatient Dr. Miki Abdi DO -Intensive Care Unit Work Phone: Start: 08-06-2024 End: 08-07-2024 Refill Alibna Servin MED DIR - AIRCRAFT COMMUNICATOR Work Phone: [facility] Start: 08-05-2024 End: 08-05-2024 ambulatory [facility] Start: 08-05-2024 End: 08-05-2024 Office outpatient visit 25 minutes Albina Servin MED DIR - AIRCRAFT COMMUNICATOR Work Phone: [facility] Comment on above: Type 1 diabetes christy itus with hyperglycemia (HCC) (Primary Dx); Mixed diabetic hyperlipidemia associated with type 2 diabetes mellitus (HCC); Hypertension associated with type 2 diabetes mellitus (HCC); Acquired hypothyroidism Start: 07-30-2024 End: 07-30-2024 Orders Only Dee Pitts MED DIR - AIRCRAFT COMMUNICATOR Work Phone: [facility] Comment on above: Type 1 diabetes christy itus with hyperglycemia (HCC) (Primary Dx); Mixed hyperlipidemia Request For Order(s) Start: 07-28-2024 End: 07-28-2024 Telephone encounter Florentino Flowers MD Work Phone: [facility] Comment on above: Other (Clinical Note s Request) Start: 07-07-2024 End: 07-08-2024 Refill Albina Servin MED DIR - AIRCRAFT COMMUNICATOR Work Phone: [facility] Clinical Communication Comment on above: Type 1 diabetes christy itus with hyperglycemia (HCC) Start: 06-18-2024 End: 06-18-2024 Refill Albina Servin MED DIR - AIRCRAFT COMMUNICATOR Work Phone: [facility] Clinical Communication Comment on above: Type 1 diabetes christy itus with hyperglycemia (HCC) Start: 04-12-2024 End: 04-16-2024 Refill Rosa Partida MD Work Phone: [facility] Clinical Communication Comment on above: Type 1 diabetes christy itus with hyperglycemia (HCC) Start: 02-15-2024 End: 02-17-2024 Evaluation and management of inpatient Kuldeep Rios MD Work Phone: [facility] Comment on above: Nausea and vomiting, unspecified vomiting type (Primary Dx); Dehydration; Diabetic ketoacidosis without coma associated with other specified diabetes mellitus (HCC) Start: 10-01-2023 End: 10-01-2023 ambulatory DEE PITTS [facility] Start: 10-01-2023 End: 10-01-2023 Office outpatient visit 25 minutes Dee Pitts MED DIR - AIRCRAFT COMMUNICATOR Work Phone: [facility] Endocrinology Comment on above: Type 1 diabetes christy itus with hyperglycemia (HCC) (Primary Dx); Essential hypertension; Acquired hypothyroidism Start: 09-27-2023 End: 11-15-[address] [facility] Clinical Communication Start: 09-27-2023 End: 11-15-2023 Patient encounter procedure Kati Olivares RN [facility] Clinical Communication Comment on above: Type 1 diabetes christy itus with hyperglycemia (HCC) Start: 09-02-2023 Refill Dee alcaraz MED DIR - AIRCRAFT COMMUNICATOR Work Phone: [facility] Endocrinology Comment on above: Essential hypertensi on (Primary Dx) Start: 07-17-2023 Telephone encounter Dee Pitts MED DIR - AIRCRAFT COMMUNICATOR Work Phone: [facility] Endocrinology Comment on above: Med Management (Offi ce notes request) Start: 05-28-2023 Telephone encounter Rosa Partida MD Work Phone: [facility] Endocrinology Start: 05-27-2023 End: 05-27-2023 Office outpatient visit 25 minutes Rosa Partida MD Work Phone: [facility] Endocrinology Comment on above: Type 1 diabetes christy itus with hyperglycemia (HCC) (Primary Dx); Mixed hyperlipidemia; Primary hypothyroidism Start: 03-30-[address] Weiss [address] [facility] C linical Communication Start: 03-30-2023 Patient encounter procedure Judith Weiss RN [facility] Clinical Communication Comment on above: Type 1 diabetes christy itus with hyperglycemia (HCC) Start: 02-07-2023 Refill Dee alcaraz MED DIR - AIRCRAFT COMMUNICATOR Work Phone: [facility] Endocrinology Start: 01-29-2023 Telephone encounter Andrea Eason MD Work Phone: [facility] Family Medicine Comment on above: Annual Lung Screenin g Reminder Start: 11-13-2022 End: 11-13-2022 Office outpatient visit 25 minutes Dee Pitts MED DIR - AIRCRAFT COMMUNICATOR Work Phone: [facility] Endocrinology Comment on above: Type 1 diabetes christy itus with hyperglycemia (HCC) (Primary Dx); Acquired hypothyroidism Start: 09-28-2022 Telephone encounter Evangelina Lui RN [facility] Gastroenterology Start: 08-17-2022 Telephone encounter Evangelina Lui RN [facility] Gastroenterology Comment on above: Care Coordination Care Coordination; P rocedure Start: 08-14-2022 End: 08-18-2022 Evaluation and management of inpatient J Sue Marie MD Work Phone: [facility] TELEMET[facility] Comment on above: Vomiting (Primary Dx ); Abnormal CT scan Start: 07-11-2022 Telephone encounter Dee Hartman MD Work Phone: [facility] Ophthalmology Comment on above: No Show Start: 05-10-2022 End: 05-10-2022 Office outpatient visit 25 minutes Dee Pitts MED DIR - AIRCRAFT COMMUNICATOR Work Phone: [facility] Comment on above: Type 1 diabetes christy itus with hyperglycemia (HCC) (Primary Dx); Acquired hypothyroidism Start: 05-09-2022 End: 05-09-2022 Office outpatient visit 25 minutes Andrea Lr MD Work Phone: [facility] Comment on above: Primary hypothyroidi sm (Primary Dx); Mixed hyperlipidemia; Type 1 diabetes mellitus with hyperglycemia (HCC); Chronic nausea; Tobacco abuse Start: 02-01-2022 ambulatory UNKNOWN PROVIDER [facility] Start: 01-11-2022 End: 01-11-2022 Emergency department patient visit AUSTIN RODRIGUEZ [facility] Start: 01-10-2022 End: 01-11-2022 Emergency department patient visit UNKNOWN PROVIDER [facility] Start: 01-10-2022 End: 01-11-2022 Emergency department patient visit Alvin Hernandez MD Work Phone: [facility] Start: 2021 ambulatory Andrea Lr [facility] Start: 2021 End: 2021 Subsequent hospital visit by physician Andrea Lr MD Work Phone: [facility] Comment on above: Cigarette smoker Start: 04-19-2020 End: 04-19-2020 Subsequent hospital visit by physician Andrea Lr Work Phone: [facility] [employer] [facility] Comment on above: Cervical radiculopat hy Start: 09-15-2019 End: 09-15-2019 Subsequent hospital visit by physician Asha Nobles Work Phone: [facility] Start: 11-02-2016 End: 11-02-2016 Emergency department patient visit JAVAN MCKEON Facility:[facility] Procedures Date Procedure Procedure Detail Performing Clinician Start: 09-14-2024 Adult depression scr eening assessment Andrea Lr MD Work Phone: Start: 08-10-2024 Plain chest X-ray Dr. John Valderrama DO Work Phone: Start: 08-10-2024 Plain chest X-ray Dr. John Valderrama DO Work Phone: Start: 08-10-2024 Plain chest X-ray Dr. John Valderrama DO Work Phone: Start: 08-05-2024 Hemoglobin glycosyla brandi a1c Albina Servin MED DIR - AIRCRAFT COMMUNICATOR Work Phone: Start: 08-04-2024 Lipid 1996 panel - S andres or Plasma Albina Servin MED DIR - AIRCRAFT COMMUNICATOR Work Phone: Start: 02-17-2024 Glucose quantitative blood [...] 10-01-2023 Hemoglobin glycosyla brandi a1c Dee Pitts MED DIR - AIRCRAFT COMMUNICATOR Work Phone: Start: 05-27-2023 Hemoglobin glycosyla brandi a1c Rosa Partida MD Work Phone: Start: 05-27-2023 Lipid 1996 panel - S andres or Plasma Rosa Partida MD Work Phone: Start: 05-27-2023 Thyrotropin [Units/v olume] in Serum or Plasma Rosa Partida MD Work Phone: Start: 02-15-2023 Thyrotropin [Units/v olume] in Serum or Plasma Judith Weiss RN Start: 11-13-2022 Hemoglobin glycosyla brandi a1c Dee Pitts MED DIR - AIRCRAFT COMMUNICATOR Work Phone: Start: 08-18-2022 Glucose quantitative blood [...] - S andres or Plasma Dee Ravindra MED DIR - AIRCRAFT COMMUNICATOR Work Phone: Start: 05-09-2022 Thyrotropin [Units/v olume] in Serum or Plasma Dee Pitts MED DIR - AIRCRAFT COMMUNICATOR Work Phone: Start: 10-23-2021 Lipid 1996 panel [...] DTaP/Tdap/Td vaccine (2 - Td or Tdap) [facility] Start: 09-21-2026 DTaP/Tdap/Td vaccine (2 - Td) DTaP/Tdap/Td vaccine (2 - Td) [place], [place] Start: 09-21-2026 DTaP/Tdap/Td Vaccines (2 - Td or Tdap) DTaP/Tdap/Td Vaccines (2 - Td or Tdap) [facility] Start: 09-14-2025 Depression Screening Depression Screening [facility] Start: 08-05-2025 Hemoglobin A1c measurement Diabetes: Hemoglobin A1C [facility] Start: 08-04-2025 Diabetes: Urine Albumin-Creatinine Ratio for Kidney Health Diabetes: Urine Albumin-Creatinine Ratio for Kidney Health [facility] Start: 08-04-2025 Lipid panel Lipid Panel [facility] Start: 04-07-2025 End: 04-07-2025 Patient encounter procedure 04/07/2025 9:00 AM EST Office Visit [facility] [address] [place] [address] [place] [address] Andrea Lr MD [address] [facility], [place] [address] [facility] Start: 02-16-2025 Diabetes: Estimated Glomerular Filtration Rate for Kidney Health Diabetes: Estimated Glomerular Filtration Rate for Kidney Health [facility] Start: 12-28-2024 Influenza vaccination Influenza Vaccine (Season Ended) [facility] Start: 12-16-2024 End: 12-16-2024 Patient encounter procedure 12/16/2024 11:30 AM EDT Office Visit [facility] [address] [place] [address] Albina Servin, MED DIR - AIRCRAFT COMMUNICATOR [address] [place] [address] [facility] Start: 09-30-2024 Hemoglobin A1c measurement Diabetes: Hemoglobin A1C [facility] Start: 08-10-2024 Cardiac monitoring [facility] Start: 08-10-2024 Catheterization of vein [facility] Start: 08-10-2024 Consultation [facility] Start: 08-10-2024 Continuous pulse oximetry [facility] Start: 08-10-2024 End: 08-10-2024 Following clinical pathway protocol [facility] Start: 08-10-2024 Gas panel - Arterial blood [facility] Start: 08-10-2024 Lab findings surveillance [facility] Start: 08-10-2024 Notification of physician [facility] Start: 08-10-2024 Patient education [facility] Start: 08-10-[address] [facility] Start: 08-10-2024 [facility] Start: 08-10-2024 Referral to gastroenterology service [facility] Start: 08-10-2024 [facility] Start: 08-10-2024 Thyroid stimulating hormone measurement [facility] Start: 08-10-2024 Admission procedure [facility] Start: 08-10-2024 CT Chest and Abdomen and Pelvis WO and W contrast IV [facility] Start: 08-10-2024 CT of thorax, abdomen and pelvis with contrast CTA Chst, Abd, Pel W and/or WO [facility] Start: 08-10-[address] [facility] Start: 08-10-2024 [facility] Start: 08-10-2024 Microscopic observation [Identifier] in Unspecified specimen by Gram stain [facility] Start: 08-10-2024 Respiratory Culture Respiratory Culture [facility] Start: 08-10-2024 [facility] Start: 08-05-2024 End: 08-05-2024 Patient encounter procedure 08/05/2024 11:30 AM EDT Office Visit [facility] [address] [place] [address] Albina Servin, MED DIR - AIRCRAFT COMMUNICATOR [address] [place] [address] [facility] Start: 07-30-2024 End: 07-30-2025 Lipid 1996 panel - Serum or Plasma Lipid panel Lab Routine Mixed hyperlipidemia Expected: 07/30/2024 (Approximate), Expires: 07/30/2025 [facility] Work Phone: Comment on above: Expected: 07/30/2024 (Approximate), Expi res: 07/30/2025 Start: 07-30-2024 End: 07-30-2025 Microalbumin/Creatinine panel in random Urine Microalbumin / creatinine urine ratio Lab Routine Type 1 diabetes mellitus with hyperglycemia (HCC) Expected: 07/30/2024 (Approximate), Expires: 07/30/2025 [facility] Comment on above: Expected: 07/30/2024 (Approximate), Expi res: 07/30/2025 Start: 05-27-2024 Diabetes: Estimated Glomerular Filtration Rate for Kidney Health Diabetes: Estimated Glomerular Filtration Rate for Kidney Health [facility] Start: 05-27-2024 Hemoglobin A1c measurement Diabetes: Hemoglobin A1C [facility] Start: 05-27-2024 Lipid panel Lipid Panel [facility] Start: 05-27-2024 Thyroid stimulating hormone measurement TSH Level [facility] Start: 04-29-2024 Medicare Advantage Annual Wellness Visit Medicare Advantage Annual Wellness Visit [facility] Start: 02-16-2024 Diabetes: Urine Albumin-Creatinine Ratio for Kidney Health Diabetes: Urine Albumin-Creatinine Ratio for Kidney Health [facility] Start: 02-16-2024 Thyroid stimulating hormone measurement TSH Level [facility] Start: 02-10-2024 End: 02-10-2024 Patient encounter procedure 02/10/2024 11:20 AM EDT Office Visit [facility] Endocrinology [address] [place] [phone] Florentino Flowers MD [address] [place] [address] [facility] Start: 12-29-2023 COVID-19 Vaccine () COVID-19 Vaccine () [facility] Start: 12-29-2023 Influenza vaccination [facility] Start: 11-14-2023 Diabetic foot examination Diabetes: Foot Exam [facility] Start: 11-14-2023 Hemoglobin A1c measurement Diabetes: Hemoglobin A1C [facility] Start: 10-01-2023 End: 09-30-2024 Thyrotropin [Units/volume] in Serum or Plasma TSH Lab Routine Acquired hypothyroidism Expected: 10/01/2023 (Approximate), Expires: 09/30/2024 [facility] Comment on above: Expected: 10/01/2023 (Approximate), Expi res: 09/30/2024 Start: 10-01-2023 End: 09-30-2024 Thyroxine (T4) free [Mass/volume] in Serum or Plasma T4, free Lab Routine Acquired hypothyroidism Expected: 10/01/2023 (Approximate), Expires: 09/30/2024 [facility] Work Phone: Comment on above: Expected: 10/01/2023 (Approximate), Expi res: 09/30/2024 Start: 10-01-2023 End: 10-01-2023 Patient encounter procedure 10/01/2023 9:30 AM EDT Office Visit [facility] Endocrinology [address] [place] [address] Dee Pitts, MED DIR - AIRCRAFT COMMUNICATOR [address] [place] [address] [facility] Endocrinology Start: 05-28-2023 End: 05-28-2024 Thyrotropin [Units/volume] in Serum or Plasma TSH Lab Routine Primary hypothyroidism Expected: 05/28/2023 (Approximate), Expires: 05/28/2024 [facility] Work Phone: Comment on above: Expected: 05/28/2023 (Approximate), Expi res: 05/28/2024 Start: 05-28-2023 End: 05-28-2024 Thyroxine (T4) free [Mass/volume] in Serum or Plasma T4, free Lab Routine Primary hypothyroidism Expected: 05/28/2023 (Approximate), Expires: 05/28/2024 [facility] Comment on above: Expected: 05/28/2023 (Approximate), Expi res: 05/28/2024 Start: 05-27-2023 End: 05-27-2024 Comprehensive metabolic 1998 panel - Serum or Plasma Comprehensive metabolic panel Lab Routine Type 1 diabetes mellitus with hyperglycemia (HCC) Expected: 05/27/2023 (Approximate), Expires: 05/27/2024 [facility] [employer] Work Phone: Comment on above: Expected: 05/27/2023 (Approximate), Expi res: 05/27/2024 Start: 05-27-2023 End: 05-27-2024 Lipid 1996 panel - Serum or Plasma Lipid panel Lab Routine Mixed hyperlipidemia Expected: 05/27/2023 (Approximate), Expires: 05/27/2024 [facility] Comment on above: Expected: 05/27/2023 (Approximate), Expi res: 05/27/2024 Start: 05-27-2023 End: 05-27-2024 Thyrotropin [Units/volume] in Serum or Plasma TSH Lab Routine Primary hypothyroidism Expected: 05/27/2023 (Approximate), Expires: 05/27/2024 [facility] Comment on above: Expected: 05/27/2023 (Approximate), Expi res: 05/27/2024 Start: 05-27-2023 End: 05-27-2024 Thyroxine (T4) free [Mass/volume] in Serum or Plasma T4, free Lab Routine Primary hypothyroidism Expected: 05/27/2023 (Approximate), Expires: 05/27/2024 [facility] Comment on above: Expected: 05/27/2023 (Approximate), Expi res: 05/27/2024 Start: 05-27-2023 End: 05-27-2023 Patient encounter procedure 05/27/2023 9:20 AM EST Office Visit [facility] Endocrinology [address] [place] [phone] Rosa Partida MD [address] [place] [address] [facility] Endocrinology Start: 05-09-2023 COVID-19 Vaccine (4 - Booster for Pfizer series) COVID-19 Vaccine (4 - Booster for Pfizer series) [facility] Comment on above: Postponed from 07/16/2021 (Patient Refus ed) Start: 05-09-2023 COVID-19 Vaccine (4 - Pfizer series) COVID-19 Vaccine (4 - Pfizer series) [facility] Comment on above: Postponed from 07/16/2021 (Patient Refus ed) Start: 05-09-2023 Lipid panel Lipid Panel [facility] Start: 05-09-2023 Preventive dental service Diabetes: Dental Exam [facility] Comment on above: Postponed from 1966 (Patient Refus ed) Start: 05-09-2023 Thyroid stimulating hormone measurement TSH Level [facility] Start: 04-29-2023 Medicare Advantage Annual Wellness Visit Medicare Advantage Annual Wellness Visit [facility] Start: 03-28-2023 End: 03-28-2023 Patient encounter procedure 03/28/2023 2:00 PM EST Office Visit [facility] Ophthalmology [address] [place] [address] Giana Trejo MD [address] [place] [address] [facility]hthal[facility] Start: 02-18-2023 End: 02-18-2023 Patient encounter procedure 02/18/2023 9:00 AM EDT Office Visit [facility] Endocrinology [address] [place] [phone] Dee Pitts, MED DIR - AIRCRAFT COMMUNICATOR [address] [place] [address] [facility] Endocr[facility]ology Start: 12-28-2022 COVID-19 Vaccine () COVID-19 Vaccine () [facility] Start: 12-28-2022 Influenza vaccination Influenza Vaccine (#1) [facility] Start: 12-06-2022 Screening for malignant neoplasm of lung Lung Cancer Screening [facility] Start: 2022 Screening for malignant neoplasm of lung Low dose CT lung screening [facility] Start: 11-13-2022 Hemoglobin A1c measurement Diabetes: Hemoglobin A1C [facility] Start: 11-13-2022 End: 11-14-2023 Microalbumin/Creatinine panel in random Urine Microalbumin / creatinine urine ratio Lab Routine Type 1 diabetes mellitus with hyperglycemia (HCC) Expected: 11/13/2022 (Approximate), Expires: 11/14/2023 [facility] Work Phone: Comment on above: Expected: 11/13/2022 (Approximate), Expi res: 11/14/2023 Start: 11-13-2022 End: 11-14-2023 Thyrotropin [Units/volume] in Serum or Plasma TSH Lab Routine Acquired hypothyroidism Expected: 11/13/2022 (Approximate), Expires: 11/14/2023 [facility] Comment on above: Expected: 11/13/2022 (Approximate), Expi res: 11/14/2023 Start: 11-13-2022 End: 11-14-2023 Thyroxine (T4) free [Mass/volume] in Serum or Plasma T4, free Lab Routine Acquired hypothyroidism Expected: 11/13/2022 (Approximate), Expires: 11/14/2023 [facility] Comment on above: Expected: 11/13/2022 (Approximate), Expi res: 11/14/2023 Start: 11-13-2022 End: 11-13-2022 Patient encounter procedure 11/13/2022 Office Visit Endocrinology Dee Pitts, MED DIR - AIRCRAFT COMMUNICATOR [address] [place] [address] [facility] Start: 10-25-2022 End: 10-25-2022 Patient encounter procedure 10/25/2022 Office Visit Family Medicine Andrea Lr MD [address] [place] [address], [address] [place] [address] [facility] Start: 10-23-2022 Depression Screen Depression Screen [facility] [...] 09/28/2022 Office Visit Gastroenterology Vivian Duval MD [address] [place] [address] [address] [place] [address] [facility] Gastroenterology Start: 09-10-2022 End: 09-10-2022 Admission to same day surgery center 09/10/2022 Surgery Gastroenterology Vivian Duval MD [address] [place] [address] [address] [place] [address] ERCP/EGD [78846 (CPT )] [facility] Endoscopy Comment on above: ERCP/EGD [86098 (CPT )] Start: 09-10-2022 End: 09-10-2022 Ercp stent placement biliary/pancreatic duct ERCP Abnormal CT of the abdomen 09/10/2022 12:00 PM EDT [facility] Gastroenterology Start: 09-10-2022 End: 05-15-2023 Esophagogastroduodenoscopy us scope w/adj strxrs EGD WITH ENDOSCOPIC ULTRASOUND EXAM Abnormal CT of the abdomen 09/10/2022 12:00 PM EDT [facility] Gastroenterology Start: 09-10-2022 Subsequent hospital visit by physician 09/10/2022 Hospital Encounter Gastroenterology Vivian Duval MD [address] [facility] [address] [place] [address] [facility] Endoscopy Start: 08-07-2022 Hemoglobin A1c measurement Diabetes: Hemoglobin A1C [facility] Start: 07-31-2022 End: 07-31-2022 Patient encounter procedure 07/31/2022 Office Visit Endocrinology Rosa Partida MD [address] [facility] [address] [place], [place] [id number] [facility] Endocrinology Start: 07-11-2022 End: 07-11-2022 Patient encounter procedure 07/11/2022 Office Visit Ophthalmology Dee Hartman MD [address] [place] [phone] [facility] Ophthalmology Start: 05-10-2022 End: 05-10-2023 Thyrotropin [Units/volume] in Serum or Plasma TSH Lab Routine Acquired hypothyroidism Expected: 05/10/2022 (Approximate), Expires: 05/10/2023 [facility] Comment on above: Expected: 05/10/2022 (Approximate), Expi res: 05/10/2023 Start: 05-10-2022 End: 05-10-2023 Thyroxine (T4) free [Mass/volume] in Serum or Plasma T4, free Lab Routine Acquired hypothyroidism Expected: 05/10/2022 (Approximate), Expires: 05/10/2023 [facility] Work Phone: Comment on above: Expected: 05/10/2022 (Approximate), Expi res: 05/10/2023 Start: 05-10-2022 End: 05-10-2022 Patient encounter procedure 05/10/2022 Office Visit Endocrinology Dee Pitts, MED DIR - AIRCRAFT COMMUNICATOR [address] [place] [address] [facility] Start: 05-09-2022 End: 05-09-2023 Comprehensive metabolic 1998 panel - Serum or Plasma Comprehensive metabolic panel Lab Routine Type 1 diabetes mellitus with hyperglycemia (HCC) Expected: 05/09/2022 (Approximate), Expires: 05/09/2023 [facility] Comment on above: Expected: 05/09/2022 (Approximate), Expi res: 05/09/2023 Start: 05-09-2022 End: 05-09-2023 Hemoglobin A1c/Hemoglobin.total in Blood Hemoglobin A1c Lab Routine Type 1 diabetes mellitus with hyperglycemia (HCC) Expected: 05/09/2022 (Approximate), Expires: 05/09/2023 [facility] Work Phone: Comment on above: Expected: 05/09/2022 (Approximate), Expi res: 05/09/2023 Start: 05-09-2022 End: 05-09-2023 Lipid 1996 panel - Serum or Plasma Lipid panel Lab Routine Mixed hyperlipidemia Expected: 05/09/2022 (Approximate), Expires: 05/09/2023 [facility] Comment on above: Expected: 05/09/2022 (Approximate), Expi res: 05/09/2023 Start: 05-09-2022 End: 05-09-2023 Thyrotropin [Units/volume] in Serum or Plasma TSH Lab Routine Primary hypothyroidism Expected: 05/09/2022 (Approximate), Expires: 05/09/2023 [facility] Comment on above: Expected: 05/09/2022 (Approximate), Expi res: 05/09/2023 Start: 04-24-2022 Hemoglobin A1c measurement Diabetes: Hemoglobin A1C [facility] Start: 04-03-2022 End: 04-03-2022 Patient encounter procedure 04/03/2022 Office Visit Family Medicine Andrea Lr MD [address], [place] [address] [facility] Start: 02-01-2022 End: 02-01-2022 Patient encounter procedure 02/01/2022 Appointment IP Unit Holden Castillo MD [address] [place] [address] [address] [place] [address] [facility] Start: 12-28-2021 Influenza vaccination Flu vaccine (#1) [facility] Start: 2021 Abdominal aortic aneurysm screening AAA screen [facility] Start: 09-18-2021 COVID-19 Vaccine (4 - Booster for Pfizer series) COVID-19 Vaccine (4 - Booster for Pfizer series) [facility] Start: 11-18-2020 Diabetic foot examination Diabetic foot exam [place], [place] Start: 11-18-2020 HbA1c (Bld) [Mass fraction] A1C test (Diabetic or Prediabetic) [place], [place] Start: 12-29-2019 Influenza vaccination Flu vaccine (Season Ended) [place], [place] Start: 03-26-2019 HbA1c (Bld) [Mass fraction] A1C test (Diabetic or Prediabetic) [place] Start: 08-05-2018 Diabetic foot examination Diabetic foot exam [place], [place] Start: 06-07-2018 Diabetic microalbuminuria test Diabetic microalbuminuria test [place] Start: 06-07-2018 Lipid panel Lipid screen [place], [place] Start: 06-07-2018 TSH Qn TSH testing [place], [place] Start: 03-15-2018 Diabetic retinal exam Diabetic retinal exam [facility] Start: 09-21-2017 Pneumococcal Vaccine: 65+ Years (2 - PCV) Pneumococcal Vaccine: 65+ Years (2 - PCV) [facility] Start: 2016 Hepatitis B Vaccines (1 of 3 - Risk 3-dose series) Hepatitis B Vaccines (1 of 3 - Risk 3-dose series) [facility] Start: 2016 RSV Immunization aged 60 or older (1 - 1-dose 60+ series) RSV Immunization aged 60 or older (1 - 1-dose 60+ series) [facility] Start: 2016 RSV Immunization aged 60 or older (1 - Risk 60-74 years 1-dose series) RSV Immunization aged 60 or older (1 - Risk 60-74 years 1-dose series) [facility] Start: 2016 RSV Immunization for Adults (1 - Risk 60-74 years 1-dose series) RSV Immunization for Adults (1 - Risk 60-74 years 1-dose series) [facility] Start: 2006 Screening for malignant neoplasm of colon Colon cancer screen colonoscopy [place], [place] Start: 2006 Screening for malignant neoplasm of lung Low dose CT lung screening [facility] Start: 2006 Shingles Vaccine (1 of 2) Shingles Vaccine (1 of 2) [facility] Start: 2006 Zoster Vaccines (1 of 2) Zoster Vaccines (1 of 2) [facility] Start: 2001 Screening for malignant neoplasm of colon [facility] Start: 12-06-1975 Hepatitis A Vaccines (1 of 2 - Risk 2-dose series) Hepatitis A Vaccines (1 of 2 - Risk 2-dose series) [facility] Start: 1968 Depression Screening Depression Screening [facility] Start: 1966 Glaucoma screening Diabetes: Retinopathy Screening [facility] Start: 1966 Preventive dental service Diabetes: Dental Exam [facility] Start: 1957 Hepatitis A Vaccines (1 of 2 - Risk 2-dose series) Hepatitis A Vaccines (1 of 2 - Risk 2-dose series) [facility] Start: 1956 Annual wellness visit Medicare Initial Physical (IPPE) [facility] Start: 1956 Cyanocobalamin vitamin b-12 Vitamin B-12 [facility] Start: 1956 Diabetes: Celiac Disease Screening Diabetes: Celiac Disease Screening [facility] Start: 1956 Hepatitis B Vaccines (1 of 3 - 3-dose series) Hepatitis B Vaccines (1 of 3 - 3-dose series) [facility] Start: 1956 Medicare Advantage Annual Wellness Visit (AWV) Medicare Advantage Annual Wellness Visit (AWV) [facility] Start: 1956 Screening for malignant neoplasm of colon [facility] Start: 1956 Thyroid stimulating hormone measurement TSH Level [facility] Alanine aminotransfe rase [Enzymatic activity/volume] in Serum or Plasma [facility] Albumin [Mass/volume ] in Serum or Plasma [facility] Alkaline phosphatase [Enzymatic activity/volume] in Serum or Plasma [facility] Amphetamines [Presen ce] in Urine by Screen method >1000 ng/mL [facility] Anion gap in Serum or Plasma [facility] Anion gap in Serum or Plasma [facility] Anion gap in Serum or Plasma [facility] Anion gap in Serum or Plasma [facility] Anion gap in Serum or Plasma [facility] Anion gap in Serum or Plasma [facility] Anion gap in Serum or Plasma [facility] Anion gap in Serum or Plasma [facility] Bacteria identified in Blood by Culture [email or web address] [employer] Work Phone: Bacteria identified in Sputum by Respiratory culture [facility] Benzodiazepine measu rement, urine [facility] Beta hydroxybutyrate [Mass/volume] in Serum or Plasma [facility] Bilirubin, total measurement [facility] BUN/Creatinine ratio [facility] BUN/Creatinine ratio [facility] BUN/Creatinine ratio [facility] BUN/Creatinine ratio [facility] BUN/Creatinine ratio [facility] BUN/Creatinine ratio [facility] BUN/Creatinine ratio [facility] BUN/Creatinine ratio [facility] Calcium [Mass/volume ] in Serum or Plasma [facility] Calcium [Mass/volume ] in Serum or Plasma [facility] Calcium [Mass/volume ] in Serum or Plasma [facility] Calcium [Mass/volume ] in Serum or Plasma [facility] Calcium [Mass/volume ] in Serum or Plasma [facility] Calcium [Mass/volume ] in Serum or Plasma [facility] Calcium [Mass/volume ] in Serum or Plasma [facility] Calcium [Mass/volume ] in Serum or Plasma [facility] Carbon dioxide, tota l [Moles/volume] in Central venous blood [facility] Carbon dioxide, tota l [Moles/volume] in Central venous blood [facility] Carbon dioxide, tota l [Moles/volume] in Central venous blood [facility] Carbon dioxide, tota l [Moles/volume] in Central venous blood [facility] Carbon dioxide, tota l [Moles/volume] in Central venous blood [facility] Carbon dioxide, tota l [Moles/volume] in Central venous blood [facility] Carbon dioxide, tota l [Moles/volume] in Central venous blood [facility] Carbon dioxide, tota l [Moles/volume] in Central venous blood [facility] End: 01-10-2022 CBC W Auto Differential panel - Blood CBC with Auto Differential Lab STAT One Time for 1 Occurrences starting 01/10/2022 until 01/10/2022 [facility] Work Phone: Comment on above: One Time for 1 Occurrences starting 12/28 until 01/10/2022 Cobalamin (Vitamin B 12) [Mass/volume] in Serum or Plasma [facility] Cocaine measurement, urine [facility] End: 01-10-2022 Comprehensive metabolic 2000 panel - [...] [Enz ymatic activity/volume] in Serum or Plasma [facility] Creatinine [Mass/vol ume] in Serum or Plasma [facility] [facility] Creatinine [Mass/vol ume] in Serum or Plasma [facility] Creatinine [Mass/vol ume] in Serum or Plasma [facility] Creatinine [Mass/vol ume] in Serum or Plasma [facility] Creatinine [Mass/vol ume] in Serum or Plasma [facility] Creatinine [Mass/vol ume] in Serum or Plasma [facility] Creatinine [Mass/vol ume] in Serum or Plasma [facility] Creatinine [Mass/vol ume] in Serum or Plasma [facility] Hospital End: 2021 CT LUNG SCREENING (ANNUAL) [facility] Work Phone: Comment on above: Once for 1 Occurrences starting 12/06/19 until 2021 End: 01-10-2022 Ethanol [Mass/volume] in Serum or Plasma Ethanol Lab STAT One Time for 1 Occurrences starting 01/10/2022 until 01/10/2022 [facility] Work Phone: Comment on above: One Time for 1 Occurrences starting 12/28 until 01/10/2022 Ethanol [Mass/volume ] in Serum or Plasma [facility] fentaNYL [Presence] in Urine by Screen method [facility] End: 01-10-2022 FENTANYL, URINE FENTANYL, URINE Lab Routine One Time for 1 Occurrences starting 01/10/2022 until 01/10/2022 [facility] Work Phone: Comment on above: One Time for 1 Occurrences starting 12/28 until 01/10/2022 Folate [Moles/volume ] in Serum or Plasma [facility] Glucose [Mass/volume ] in Serum or Plasma [facility] Glucose [Mass/volume ] in Serum or Plasma [facility] Glucose [Mass/volume ] in Serum or Plasma [facility] Glucose [Mass/volume ] in Serum or Plasma [facility] Glucose [Mass/volume ] in Serum or Plasma [facility] Glucose [Mass/volume ] in Serum or Plasma [facility] Glucose [Mass/volume ] in Serum or Plasma [facility] Glucose [Mass/volume ] in Serum or Plasma [facility] Hemoglobin A1c/Hemog lobin.total in Blood [facility] End: 09-15-2019 Hepatitis Panel, Acute Hepatitis Panel, Acute Lab Routine Once for 1 Occurrences starting 09/15/2019 until 09/15/2019 [facility] [place] Comment on above: Once for 1 Occurrences starting 09/15/19 until 09/15/2019 Hepatitis Panel, Acute Hepatitis Panel, Acute Lab Routine 09/15/2019 1:58 PM EDT [facility] [place] End: 09-15-2019 HIV Screen HIV Screen Lab Routine Once for 1 Occurrences starting 09/15/2019 until 09/15/2019 [place], [place] Comment on above: Once for 1 Occurrences starting 09/15/19 until 09/15/2019 HIV Screen HIV Screen Lab Routine 09/15/2019 1:58 PM EDT [place] Lactic acid measurement [facility] Magnesium measurement [facility] Measurement of renal function [facility] Measurement of renal function [facility] Measurement of renal function [facility] Measurement of renal function [facility] Measurement of renal function [facility] Measurement of renal function [facility] Measurement of renal function [facility] Measurement of renal function [facility] Methadone measurement, urine [facility] Patient referral [facility] Work Phone: Phencyclidine [Prese nce] in Urine [facility] Potassium measurement [facility] Potassium measurement [facility] Potassium measurement [facility] Potassium measurement [facility] Potassium measurement [facility] Potassium measurement [facility] Potassium measurement [facility] Potassium measurement [facility] End: 09-15-2019 RPR with FTA Relex RPR with FTA Relex Lab Routine Once for 1 Occurrences starting 09/15/2019 until 09/15/2019 [facility] Comment on above: Once for 1 Occurrences starting 09/15/19 until 09/15/2019 RPR with FTA Relex RPR with FTA Relex Lab Routine 09/15/2019 1:58 PM EDT [facility], [place] Serum chloride measurement [facility] Serum chloride measurement [facility] Serum chloride measurement [facility] Serum chloride measurement [facility] Serum chloride measurement [facility] Serum chloride measurement [facility] Serum chloride measurement [facility] Serum chloride measurement [facility] Sodium measurement [facility] Sodium measurement [facility] Sodium measurement [facility] Sodium measurement [facility] Sodium measurement [facility] Sodium measurement [facility] Sodium measurement [facility] Sodium measurement [facility] Tissue exam [facility] [employer] Work Phone: Comment on above: Release Upon Ordering for 1 Occurrences starting 08/16/2022, 1 completed Total protein measurement [facility] Troponin T.cardiac [Mass/volume] in Serum or Plasma by High sensitivity method [facility] Urea nitrogen [Mass/ volume] in Serum or Plasma [facility] Urea nitrogen [Mass/ volume] in Serum or Plasma [facility] Urea nitrogen [Mass/ volume] in Serum or Plasma [facility] Urea nitrogen [Mass/ volume] in Serum or Plasma [facility] Urea nitrogen [Mass/ volume] in Serum or Plasma [facility] Urea nitrogen [Mass/ volume] in Serum or Plasma [facility] Urea nitrogen [Mass/ volume] in Serum or Plasma [facility] Urea nitrogen [Mass/ volume] in Serum or Plasma [facility] Urine cannabinoid measurement [facility] End: 01-10-2022 Urine Drug Screen Urine Drug Screen Lab STAT One Time for 1 Occurrences starting 01/10/2022 until 01/10/2022 [facility] Work Phone: Comment on above: One Time for 1 Occurrences starting 12/28 until 01/10/2022 Urine opiate measurement [facility] Immunizations Immunization Date Immunization Notes Care Provider Fa cility 09-01-2024 Pneumococcal Conjuga te PCV20, Pf (Prevnar 20) Andrea Lr MD Work Phone: [facility] 02-16-2024 influenza vaccine A& B surf ant adjuvanted (Fluad) HIGH-DOSE injection 0.5 mL Kuldeep Rios MD Work Phone: [facility] 05-09-2022 influenza, high dose seasonal, preservative-free Dee Hartman MD Work Phone: [facility] 05-09-2022 influenza virus vacc ine, unspecified formulation Dee Pitts MED DIR - AIRCRAFT COMMUNICATOR Work Phone: [facility] 10-23-2021 Pneumococcal conjuga te PCV20, PF (Prevnar 20) Andrea Lr MD Work Phone: [facility] 10-23-2021 zoster recombinant adjuvanted vaccine (SHINGRIX) 50 MCG/0.5ML SUSR injection Andrea Lr MD Work Phone: [facility] Work Phone: 05-21-2021 Pfizer SARS-CoV-2 Vaccination Dee Hartman MD Work Phone: [facility] 07-26-2020 COVID-19, PFIZER PUR PLE top, DILUTE for use, (age 12 y+), 30mcg/0.3mL Andrea Lr MD Work Phone: [facility] Work Phone: 07-05-2020 COVID-19, PFIZER PUR PLE top, DILUTE for use, (age 12 y+), 30mcg/0.3mL Andrea Lr MD Work Phone: [facility] Work Phone: 04-15-2020 influenza, injectabl e, quadrivalent, preservative free Andrealeeanne Lr [facility] [place] 01-20-2019 influenza, injectabl e, quadrivalent, preservative free [facility] 02-27-2017 influenza, injectabl e, quadrivalent, contains preservative [facility] 09-21-2016 pneumococcal polysaccharide vaccine, 23 valent [facility] [place] 09-21-2016 tetanus toxoid, redu renetta diphtheria toxoid, and acellular pertussis vaccine, adsorbed [facility] 01-06-2016 influenza, injectabl e, quadrivalent, preservative free [facility] Payers Date Payer Category Payer Self-pay 2022 Medicare [employer] UHC DUAL COMPLETE [id number] 2022-Present [address] [place] [address] Medicare HMO [id number] 2022 Medicare HMO UHC DUAL COMPLET E [id number] 2021 Private Health Insurance [id number] 2021 Private Health Insurance 2020 Medicaid 2018 Medicaid [facility] MEDICA[facility] [facility] [place] [facility] xxxxxxxxxxxx 2018-Present [phone] [address] [address] [place] [address] xxxxxxxxxxxx [id number] 2018 Medicaid [id number] .[id number] 2016 Unknown [id number] 1955 Unknown [id number] 2.16.840.1.999519.3.579.2 .668 1955 Unknown [id number] 2.16.840.1.198716.3.579.2 .668 1956 Unknown [id number] 2.16.840.1.961420.3.579.2 .668 1955 Unknown [id number] 2.16.840.1.371866.3.579.2 .668 Unknown [id number] 2.16.840.1.738267.3.579.2 .462 Unknown [id number] 2.16.840.1.926395.3.579.2 .462 Unknown [id number] 2.16.840.1.550241.3.579.2 .462 Unknown [id number] 2.16.840.1.688647.3.579.2 .462 Unknown [id number] 2.16.840.1.132526.3.579.2 .462 Unknown [id number] 2.16.840.1.262755.3.579.2 .462 Unknown [id number] 2.16.840.1.915249.3.579.2 .462 Unknown [id number] 2.16.840.1.029274.3.579.2 .462 Unknown [id number] 2.16.840.1.176842.3.579.2 .462 Unknown [id number] 2.16.840.1.619764.3.579.2 .462 Unknown [id number] 2.16.840.1.189070.3.579.2 .462 Unknown [id number] 2.16.840.1.711382.3.579.2 .462 Unknown [id number] 2.16.840.1.285054.3.579.2 .462 Unknown [id number] 2.16.840.1.393621.3.579.2 .462 Unknown [id number] 2.16.840.1.268517.3.579.2 .462 Unknown [id number] 2.16.840.1.553520.3.579.2 .462 Unknown [id number] 2.16.840.1.528304.3.579.2 .462 Unknown [id number] 2.16840.1.350501.3.579.2 .462 Unknown [id number] 2.16.840.1.958997.3.579.2 .462 Unknown [id number] 2.16.840.1.114511.3.579.2 .462 Unknown [id number] 2.16.840.1.566950.3.579.2 .462 Unknown [id number] 2.16.840.1.835902.3.579.2 .462 Unknown [id number] 2.16.840.1.866095.3.579.2 .462 Unknown [id number] 2.16.840.1.918933.3.579.2 .462 Unknown [id number] 2.16.840.1.867963.3.579.2 .462 Unknown [id number] 2.16.840.1.080295.3.579.2 .462 Unknown [id number] 2.16.840.1.484266.3.579.2 .462 Unknown [id number] 2.16.840.1.192872.3.579.2 .462 Unknown [id number] 2.16.840.1.455327.3.579.2 .462 Unknown [id number] 2.16.840.1.334460.3.579.2 .462 Unknown [id number] 2.16.840.1.185733.3.579.2 .462 Unknown [id number] 2.16.840.1.409138.3.579.2 .462 Unknown [id number] 2.16.840.1.557102.3.579.2 .462 Unknown [id number] 2.16.840.1.033939.3.579.2 .462 Unknown [id number] 2.16.840.1.058260.3.579.2 .462 Unknown [id number] 2.16.840.1.500045.3.579.2 .462 Unknown [id number] 2.16.840.1.663880.3.579.2 .462 Unknown [id number] 2.16.840.1.389263.3.579.2 .462 Unknown [id number] 2.16.840.1.361722.3.579.2 .462 Social History Date Type Detail Facility Start: 04-29-1998 End: 09-15-2024 Tobacco smoking status NHIS Current every day smoker [place], [place] Start: 04-29-1998 History of tobacco use Cigarette Smoker [place] Start: 09-30-2018 End: 09-14-2024 Cigarettes smoked current (pack per day) - Reported [place] Start: 09-30-2018 End: 09-15-2024 Alcohol intake Current non-drinker of alcohol (finding) [place] Start: 1955 Sex Assigned At Not on file [place] Start: 04-15-2020 End: 09-15-2024 Tobacco use and exposure Never used [place] Start: 12-31-2021 End: 11-13-2022 Exposure to SARS-CoV-2 (event) Not sure [facility] [place], [place] Start: 10-23-2021 End: 05-09-2022 History SDOH Alcohol Frequency 1 [employer] Work Phone: Start: 05-12-2020 History SDOH Alcohol Std Drinks 99 [facility] Work Phone: Start: 10-23-2021 End: 05-09-2022 History SDOH Physical Activity DPW 2 [facility] Work Phone: Start: 10-23-2021 History SDOH Physical Activity MPS 3 [facility] Work Phone: Start: 10-19-2021 End: 05-09-2022 History SDOH Financial 5 [employer] Work Phone: Start: 11-13-2022 End: 09-14-2024 Tobacco use panel [facility] How hard is it for y ou to pay for the very basics like food, housing, medical care, and heating Not hard at all [facility] Endra (I/We) worried judy er (my/our) food would run out before (I/we) got money to buy more. Never true [facility] Has the [employer], [employer], or [employer] threatened to shut off services in your home in past 12Mo No [facility]ra How often to you hav e a drink containing alcohol? Never [facility] Start: 11-27-2021 End: 08-10-2024 Sex Male (finding) [facility] Start: 08-10-2024 Tobacco smoking status [facility] Tobacco smoking consumption unknown (finding) [facility] Start: 04-29-1959 Sex Assigned At Male [facility] Do you belong to any clubs or organizations such as yarsanism groups, unions, fraternal or athletic groups, or school groups? Yes [facility] Are you now , , , , never or living with a partner? [facility] How hard is it for y ou to pay for the very basics like food, housing, medical care, and heating Somewhat hard [facility] Health Do you feel stress - tense, restless, nervous, or anxious, or unable to sleep at night because your mind is troubled all the time - these days [OSQ] Rather much [employer] (I/We) worried wheclif er (my/our) food would run out before (I/we) got money to buy more. Sometimes true [employer] [facility] Procedure Code Equipment Code Equipment Origin al Text Equipment Identifier Dates [id number] Start: 03-26-2018 End: 08-05-2024 USE TO INJECT INSULIN FOUR TIMES A DAY DIRECTED [id number] Start: 07-31-2019 1 each by In Vit ro route 5 times daily As needed. [id number] Start: 11-19-2019 1 each by Does n ot apply route 5 times daily Dx E11.9 [id number] Start: 01-08-2020 1 Device by Does not apply route 5 times daily [id number] Start: 11-19-2019 1 each by In Vit ro route 5 times daily As needed. [id number] Start: 07-18-2021 1 Device by Does not apply route 5 times daily [id number] Start: 07-18-2021 USE TO INJECT INSULIN FOUR TIMES A DAY DIRECTED [id number] Start: 07-12-2021 Comfort EZ Insul in Syringe 31G X 5/16 1 ML [facility] [id number] Start: 03-22-2022 [id number] Start: 07-18-2021 Lancets (Safety Lancet 30G/Pressure Act) [facility] [id number] Start: 03-22-2022 OneTouch Verio t est strip [id number] Start: 03-22-2022 INSERT 1 UNUSED TEST STRIP INTO METER, THEN APPLY BLOOD TO OBTAIN BLOOD GLUCOSE LEVEL FOUR TIMES DAILY [id number] Start: 08-07-2022 End: 08-05-2024 Use to inject 1- 4 times daily as directed. [id number] Start: 08-18-2022 End: 08-18-2023 USE ONE UNUSED SYRINGE TO INJECT INSULIN FIVE TIMES DAILY [id number] Start: 08-07-2022 End: 05-27-2023 USE 1 UNUSED CHRYSTAL CET TO DRAW BLOOD. TWIST OFF THE PROTECTIVE CAP. PUSH THE LANCET FIRMLY ONTO THE CHOSEN SITE, THEN DISPOSE FOUR TIMES DAILY [id number] Start: 08-07-2022 Inject 1 each un mitchell the skin 4 times daily (before meals and nightly). Use as instructed [id number] Start: 05-27-2023 End: 11-23-2023 Inject 1 each un mitchell the skin 4 times daily (before meals and nightly). Use as instructed [id number] Start: 10-01-2023 End: 03-29-2024 INSERT 1 UNUSED TEST STRIP INTO METER, THEN APPLY BLOOD TO OBTAIN BLOOD GLUCOSE LEVEL FOUR TIMES DAILY [id number] Start: 08-05-2024 1 each by Other route 4 times daily. [id number] Start: 08-05-2024 End: 09-15-2024 Goals Date Patient [...] Cognitive function Level Of Cons ciousness Comatose [facility] Work Phone: Clinical Notes 05-09-2022 to 09-15-2024 Assessment & Plan Note - Andrea Lr MD - 09/15/2024 11:06 AM EDTAssessment & Plan Note - Andrea Lr MD - 09/15/2024 11:06 AM Franklin Bullard MA - 09/15/2024 10:00 AM EDT Note Date & Type Note Facility 09-15-2024 Evaluation + Plan note Associated Problem(s): Primary hypothyroidism Controlled, continue levothyroxine 125 mcg daily [facility] 09-15-2024 Miscellaneous Notes Associated Problem(s): Primary hypothyroidism [...] on his Zofran documented in this encounter [facility] 09-15-2024 Evaluation + Plan note Associated Problem(s): Hyperlipidemia Controlled, continue rosuvastatin 40 mg daily T [facility] 09-15-2024 Evaluation + Plan note Associated Problem(s): Type 1 diabetes mellitus with hyperglycemia (HCC) Control is variable, he is currently on Semglee 16 units nightly and insulin lispro 14 to 18 units with meals sliding scale. Follow-up with endocrinology as scheduled. [facility] 09-15-2024 Evaluation + Plan note Associated Problem(s): Nausea and vomiting, unspecified vomiting type Currently stable he would like a refill on his Zofran T [facility] 09-15-2024 History of Present illness Narrative Patient verified by last name and date of . Images from the original note were not included. 09/15/2024 Ganesh Bush (: 1955) is a 68 y.o. male , Established patient, here for evaluation of the following chief complaint(s): Transitional Care Management Outreach and Hospital Follow-up ([facility] 08/10-08/26/24) ASSESSMENT/PLAN: 1. Type 1 diabetes mellitus [...] recently had blood work done by his clinical laboratory aides teacher. He has no complaints today says he [...] 09/15/2024 11:07 AM documented in this encounter [facility] 08-28-2024 Note [facility] 08-26-2024 Note [facility] 08-26-2024 Note [facility] 08-10-2024 Radiology Diagnostic study note [facility] Imaging Services [address] [place] [address] CXR for Line Placement MR#: [id number] Acct: [id number] Name: KWABENA BUSH Rep #: [id number] : 04/29/1959 M 65 From: Vinay Wright MD PCP: Care Physician,No Primary Status: REG ER Study:CXR for Line Placement Date of Exam: 08/10/24 Exam# [id number] Ordering Dr: Jose Alfredo Valderrama DO EXAM: [...] unchanged. No active pulmonary disease. Reading Location: [facility] CC: Dr. Jose Alfredo Valderrama DO; No Primary Care Physician ~ Flight Communications Officer: Signed [facility] 08-10-2024 Radiology Diagnostic study note [facility] Imaging Services [address] [place] [id number] Chest 1 View (Portable) MR#: [id number] Acct: [id number] Name: KWABENA BUSH Rep #: [id number] : 08/10/1959 M 65 From: Vinay Wright MD PCP: Status: PRE ER Study:Chest 1 View (Portable) Date of Exam: 08/10/24 Exam# [id number] Ordering Dr: Jose Alfredo Valderrama DO PROCEDURE: [...] unchanged. No active pulmonary disease. Reading Location: [facility] CC: Dr. Jose Alfredo Valderrama DO ~ Flight Communications Officer: Signed [facility] 08-10-2024 Radiology Diagnostic study note [facility] Imaging Services [address] [place], [place] [id number] Chest 1 View (Portable) MR#: [id number] Acct: [id number] Name: KWABENA BUSH Rep #: [id number] : 08/10/1959 M 65 From: Vinay Wright MD PCP: Status: PRE ER Study:Chest 1 View (Portable) Date of Exam: 08/10/24 Exam# [id number] Ordering Dr: Jose Alfredo Valderrama DO PROCEDURE: [...] esophagus. No active pulmonary disease. Reading Location: [id number] CC: Dr. Jose Alfredo Valderrama, DO ~ Flight Communications Officer: Signed [facility] 08-05-2024 History of Present illness Narrative Images from the original note were not included. [facility] [address] [facility] [address] Dept: [phone] Dept Loc: [phone] Visit type: Established patient Reason for Visit: [...] Type 2 Diabetes mellitus with hyperglycemia and usp insulin use: Lab Results Component Value Date [...] polyuria. PCP is [facility] MD [facility]: Before 12/13/2014 Last office visit: 05/27/2023 No significant Interval history Type of DM: 1 Onset :~2013 Complications: Cardiovascular -- No Statin Use -- Yes Retinopathy -- No Last KEVIN/Retina Eval: missed follow up at [facility] . Longer distance from home. 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 Pure Comfort Lancets 30G [facility] USE 1 UNUSED LANCET TO DRAW BLOOD. [...] REPAIR TONSILLECTOMY (HISTORICAL) UPPER GASTROINTESTINAL ENDOSCOPY 03/16/2015 [facility] URETERAL STENT PLACEMENT Common bile duct [...] CHOLHDLRATIO 4 10/12/2020 No results found for: [id number] Imaging/Testing: Albina Servin APRN - AIRCRAFT COMMUNICATOR Portions of the information within this encounter [...] of the visit. documented in this encounter [facility] 07-30-2024 History of Present illness Narrative Left message for patient that Microalbumin and Lipid panel ordered. Message was not clear to specify what type of urine test the patient was requesting. documented in this encounter [facility] 07-30-2024 Telephone encounter Note Name of caller: Andersen Contact phone number: [phone] Relationship to Patient: patient Provider: SANDRA Servin Practice: Endo Chief Complaint/Reason for Call: Patient is requesting a urine test for his appointment. He would like to complete it in the morning tomorrow. Please advise. Best time of day caller can be reached: Any Patient advised that office/PCP has 24-48 business hours to return their call: Yes [facility] 07-30-2024 Miscellaneous Notes Name of caller: Andersen Contact phone number: [phone] Relationship to Patient: patient Provider: SANDRA Servin Practice: Endo Chief Complaint/Reason for Call: Patient is requesting a urine test for his appointment. He would like to complete it in the morning tomorrow. Please advise. Best time of day caller can be reached: Any Patient advised that office/PCP has 24-48 business hours to return their call: Yes documented in this encounter [facility] 07-28-2024 Telephone encounter Note That is the most recent visit (September 2023) , pt will be seen again on 08/05/24 by harvinder. Please advise and send notes to raisa after the patients visit with harvinder in a week. [facility] 07-28-2024 Miscellaneous Notes That is the most [...] from encounter: N/A documented in this encounter [facility] 07-28-2024 Telephone encounter Note Message released to Raisa as written. Raisa stated they received requested clinical notes, but the date was for 10/01/23. Called to inquire if there was a sooner visit. Raisa was advised that was the most recent visit. [place]'s further questions if applicable: No further questions. Were all questions from office addressed or relayed to the patient from encounter: N/A [facility] 04-16-2024 Telephone encounter Note See pended script [facility] 04-16-2024 Miscellaneous Notes See pended script Called pt again and scheduled for 08/05/2024 with Albina Servin. Pt also placed on wait list for sooner appointment. Called pt and left a message requesting that he call the office to schedule an appointment. documented in this encounter [facility] 04-16-2024 Telephone encounter Note Called pt again and scheduled for 08/05/2024 with Albina Servin. Pt also placed on wait list for sooner appointment. [facility] 04-14-2024 Telephone encounter Note Called pt and left a message requesting that he call the office to schedule an appointment. [facility] 02-17-2024 Note [facility] MEDIC INE Hospitalist Discharge Summary Ganesh Bush [...] usage. 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 [facility] 02-17-2024 Hospital course Narrative [facility] MEDICINE Hospitalist Discharge Summary Ganesh Bush : [...] usage. 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 Complexity of Follow up: [] Moderate Complexity: follow up within 7-14 calendar days (18793) [x] Severe Complexity: follow up within 7 calendar days (51343) Follow up Testing, Pending results or Referrals [...] PM This report was created using the Vast voice-activated system. Despite prompt dictation and careful editorial review, there may be subtle contextual errors in this report, due to misrecognition of the spoken word. documented in this encounter [facility] 02-17-2024 Note Formatting of this n ote might be different from the original. Care Management Progress Note Transferred from ICU level of care yesterday. Remains on iv reglan. BS ac and hs with ss coverage . K and phos down this morning. Discharge plan is home when medically stable. . Length of Stay (Days): 2 GMLOS: 2 [facility] 02-17-2024 Note Formatting of this n ote might be different from the original. Care Management Progress Note Transferred from ICU level of care yesterday. Remains on iv reglan. BS ac and hs with ss coverage . K and phos down this morning. Discharge plan is home when medically stable. . Length of Stay (Days): 2 GMLOS: 2 [facility] 02-17-2024 Note Care Management Prog ress Note Transferred from ICU level of care yesterday. Remains on iv reglan. BS ac and hs with ss coverage . K and phos down this morning. Discharge plan is home when medically stable. . Length of Stay (Days): 2 GMLOS: 2 [facility] 02-17-2024 Miscellaneous Notes Care Management Progress [...] Limits Permission given to speak with patient circulation representative/caregiver as indicated: Confirmation of Payer with patient/family: Yes Payer Name: [facility] Medicare / Medicaid : No Confirmation [...] achieved Outcome: Progressing documented in this encounter [facility] 02-16-2024 Plan of care note The [...] of glucose balance is achieved Outcome: Progressing [facility] 02-16-2024 Consult note Associated Order (s): [...] intake (Comment) (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 male admits with nausea and vomiting, dehydration, DKA. pt reports n/v improved and tolerated breakfast today. 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 Pt declines need for diet review at this time states he is familiar with CHO controlled diet but admits to non-compliance pt declines written diet materials. bed scale wt 172 lb Estimated Daily Nutrient Needs: Energy Requirements Based On: Kcal/kg Weight Used for Energy Requirements: [place] Weight for Energy Calculation (kg): 75 kg Total Energy Requirements (kcals/day): 3574-7185 (25-30) Weight Used for Protein Requirements: [place] Weight in Kg Used for Protein Requirements: [...] wt hx) % Weight Change (Calculated): -9.5 [place] Body Weight (lbs) (Calculated): 166 lbs [place] Body Weight (Kg) (Calculated): 75 kg % [place] Body Weight (Calculated): 103.6 % BMI (kg/m2) [...] Continue current diet Nadja Cisse RD Contact: *[phone] or via Secure Chat [facility] 02-16-2024 Consult note Associated Order (s): IP [...] intake (Comment) (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 male admits with nausea and vomiting, dehydration, DKA. pt reports n/v improved and tolerated breakfast today. 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 Pt declines need for diet review at this time states he is familiar with CHO controlled diet but admits to non-compliance pt declines written diet materials. bed scale wt 172 lb Estimated Daily Nutrient Needs: Energy Requirements Based On: Kcal/kg Weight Used for Energy Requirements: [place] Weight for Energy Calculation (kg): 75 kg Total Energy Requirements (kcals/day): 6581-0797 (25-30) Weight Used for Protein Requirements: [place] Weight in Kg Used for Protein Requirements: [...] wt hx) % Weight Change (Calculated): -9.5 [place] Body Weight (lbs) (Calculated): 166 lbs [place] Body Weight (Kg) (Calculated): 75 kg % [place] Body Weight (Calculated): 103.6 % BMI (kg/m2) [...] Continue current diet Nadja Cisse RD Contact: *[phone] or via Secure Chat documented in this encounter [facility] 02-16-2024 Note Formatting of this n ote might be different from the original. Care Managment Initial Assessment Date: 02/16/2024 Patient Name: Ganesh Bush : 1955 Patient Information Source of Information: Patient Cognition/Language: WFL - Within Functional Limits Permission given to speak with patient circulation representative/caregiver as indicated: Confirmation of Payer with patient/family: Yes Payer Name: [facility] Medicare / Medicaid : No Confirmation [...] will continue to follow. Manuel Nunez RN [facility] 02-16-2024 Note Formatting of this n ote might be different from the original. Care Managment Initial Assessment Date: 02/16/2024 Patient Name: Ganesh Bush : 1955 Patient Information Source of Information: Patient Cognition/Language: WFL - Within Functional Limits Permission given to speak with patient circulation representative/caregiver as indicated: Confirmation of Payer with patient/family: Yes Payer Name: [facility] Medicare / Medicaid [place]: No Confirmation of Primary Care Physician: Confirmed [...] will continue to follow. Manuel Nunez RN [facility] 02-16-2024 History of Present illness Narrative ICU Transfer Checklist Transfer Med Reconciliation (resume home meds if able, convert to PO if able) Complete Antibiotics (name, indication, duration, convert to PO if able) None Steroid (indication, duration, convert to PO if able) None Anticipated [place] Medications (ICU initiated) or Dose Changes and Indication Yes, addressed in today's progress note Permanently Discontinued Home Medications and Reason for medication contraindication No [place] Catheter (please remove if able. Note: place DC order) No Central Line (please remove if able. Note: place DC order) No Transfer Discussed with: Dr. Shell with [facility] If additional questions for ICU team within 24 hours of ICU transfer, page [phone] for clarifications. MICU Progress Note Ganesh Bush : 1955(68 y.o.) Date: February 16, 2024 Team: MICU Attending: Lane Maldonado MD Subjective: Hospital Summary: Patient is a 68-year-old male with a history of insulin-dependent DM, tobacco abuse, hypothyroidism who presented to [facility] ED 02/15/24 with progressively worsening abdominal pain, [...] Normal [] Scar/Lesion/Mass Inspection of teeth/lips/gums: Dentition: [x]Stebbins Teeth []Dentures Lips/Gums [x]Intact []Lesion Present Oropharynx exam: Mucosa [][place] []Moist [x]Dry Neck: External Appearance: Overall Appearance:[x]Normal [...] 13.0 ABGs: No results for input(s): PHART, RGA3CXG, PO2ART, IWM5MKD, M0WFKAHX, FIO2A in the last 72 hours. Lactic [...] Maldonado MD Pulmonary & Critical Care Medicine [facility] Pager #[phone] documented in this encounter [facility] 02-16-2024 Note Formatting of this n ote might be different from the original. Accepted ICU transfer from Dr. Escalante [place] Phone: 02-16-2024 Note Formatting of this n ote might be different from the original. Accepted ICU transfer from Dr. Escalante [place] Phone: 02-16-2024 Note MICU Progress Note Ganesh Bush : 1955(68 y.o.) Date: February 16, 2024 Team: MICU Attending: Lane Maldonado MD Subjective: Hospital Summary: Patient is a 68-year-old male with a history of insulin-dependent DM, tobacco abuse, hypothyroidism who presented to [facility] ED 02/15/24 with progressively worsening abdominal pain, [...] Normal [] Scar/Lesion/Mass Inspection of teeth/lips/gums: Dentition: [x]Stebbins Teeth []Dentures Lips/Gums [x]Intact []Lesion Present Oropharynx exam: Mucosa [][place] []Moist [x]Dry Neck: External Appearance: Overall Appearance:[x]Normal [...] BHYDRXBUT 110.00* -- (more content not included)... [facility] 02-16-2024 Plan of care note The [...] of glucose balance is achieved Outcome: Progressing [facility] 02-15-2024 History and physical note Images from the original note were not included. Internal Medicine: MICU Initial History and Physical Name: Ganesh Bush : 1955(68 y.o.) Date: 02/15/24 Attending: Lane Maldonado MD Subjective: Chief Complaint: abdominal pain HPI: Patient is a 68-year-old male with a history of insulin-dependent DM, tobacco abuse, hypothyroidism who presented to [facility] ED 02/15/24 with progressively worsening abdominal pain, [...] REPAIR TONSILLECTOMY (HISTORICAL) UPPER GASTROINTESTINAL ENDOSCOPY 03/16/2015 [facility] URETERAL STENT PLACEMENT Common bile duct [...] Normal [] Scar/Lesion/Mass Inspection of teeth/lips/gums Dentition: [x]Stebbins Teeth []Dentures Lips/Gums: [x]Intact []Lesion Present Mucosa: [][place] []Moist [x]Dry Neck: External Appearance Overall Appearance: [...] HGB 19.7* ABGs: Recent Labs 02/15/24 1637 [id number] Room Air Lactic Acid: No results for [...] team members and physicians, excluding procedures. T [facility] 02-15-2024 Note Internal Medicine: M ICU Initial History and Physical Name: Ganesh Bush : 1955(68 y.o.) Date: 02/15/24 Attending: Lane Maldonado MD Subjective: Chief Complaint: abdominal pain HPI: Patient is a 68-year-old male with a history of insulin-dependent DM, tobacco abuse, hypothyroidism who presented to [facility] ED 02/15/24 with progressively worsening abdominal pain, [...] REPAIR TONSILLECTOMY (HISTORICAL) UPPER GASTROINTESTINAL ENDOSCOPY 03/16/2015 [facility] URETERAL STENT PLACEMENT Common bile duct [...] ?C (97.4 ? (more content not included)... [facility] 02-15-2024 History and physical note Images from the original note were not included. Internal Medicine: MICU Initial History and Physical Name: Ganesh Bush : 1955(68 y.o.) Date: 02/15/24 Attending: Lane Maldonado MD Subjective: Chief Complaint: abdominal pain HPI: Patient is a 68-year-old male with a history of insulin-dependent DM, tobacco abuse, hypothyroidism who presented to [facility] ED 02/15/24 with progressively worsening abdominal pain, [...] REPAIR TONSILLECTOMY (HISTORICAL) UPPER GASTROINTESTINAL ENDOSCOPY 03/16/2015 [facility] URETERAL STENT PLACEMENT Common bile duct [...] daily. Historical Provider, Continuous Blood Gluc Sensor (Wikidatayle Katharina 2 Sensor) misc every 14 (fourteen) [...] Historical Provider, MD Ahn Comfort Lancets 30G [facility] USE 1 UNUSED LANCET TO DRAW BLOOD. [...] Normal [] Scar/Lesion/Mass Inspection of teeth/lips/gums Dentition: [x]Stebbins Teeth []Dentures Lips/Gums: [x]Intact []Lesion Present Mucosa: [][place] []Moist [x]Dry Neck: External Appearance Overall Appearance: [...] HGB 19.7* ABGs: Recent Labs 02/15/24 1637 [id number] Room Air Lactic Acid: No results for [...] physicians, excluding procedures. documented in this encounter [facility] 02-15-2024 Emergency department Note Glucose 521 Nga Mckenzie RN 02/15/24 1624 [facility] 02-15-2024 Emergency department Note Glucose 521 Nga [...] REPAIR TONSILLECTOMY (HISTORICAL) UPPER GASTROINTESTINAL ENDOSCOPY 03/16/2015 [facility] URETERAL STENT PLACEMENT Common bile duct [...] 1 g daily. PURE COMFORT LANCETS [address]G [facility] USE 1 UNUSED LANCET TO [...] nursing note reviewed. Exam conducted with a dry wall plasterer present. Constitutional: Appearance: Normal appearance. He is [...] Abnormal Glucose 444 (*) Narrative: [facility]formed by: [facility], [address] [place] [address] CLIA ID: [id number] POCT GLUCOSE METER UNSOLICITED RESULTS - Abnormal Glucose 353 (*) Narrative: Performed by: [facility], [address] [place] [id number] CLIA ID: [id number] POCT GLUCOSE METER UNSOLICITED RESULTS - Abnormal Glucose 245 (*) Narrative: Performed by: [facility], [address] [place] [address] CLIA ID: [id number] MAGNESIUM - Normal MAGNESIUM 2.1 TROPONIN I - Normal TROPONIN I <0.012 Narrative: Patients with high levels of Biotin oral intake (ie >5 mg/day) may have falsely decreased Troponin levels. LIPASE - Normal LIPASE 101 COMPLETE URINALYSIS WITH REFLEX TO CULTURE Narrative: The following orders were created for panel order Urinalysis complete with reflex to Culture. Procedure Abnormality Status --------- ------ Complete Urinalysis[[id number]] Please view results for these tests on [...] to admit him to the ICU. The air drier machine operator was notified. He came down to see [...] condition which required my urgent intervention. CONSULTS: Agricultural Production Engineer PROCEDURES: Unless otherwise noted below, none 1. [...] BGT in triage documented in this encounter [facility] 02-15-2024 Emergency department Triage note Pt believes he is in DKA, sugar has been reading high and he's had vomiting x 3 days 444 BGT in triage [facility] 02-15-2024 Physician Emergency department Note Images from [...] REPAIR TONSILLECTOMY (HISTORICAL) UPPER GASTROINTESTINAL ENDOSCOPY 03/16/2015 [facility] URETERAL STENT PLACEMENT Common bile duct CURRENT MEDICATIONS Previous Medications ALCOHOL SWABS (EASY COMFORT ALCOHOL PADS) PADS USE 1 UNUSED PAD TO CLEAN SITE BEFORE TESTING OR INJECTING NINE TIMES DAILY ASPIRIN 325 MG TABLET Take 325 mg by mouth daily. CONTINUOUS BLOOD GLUC SENSOR (FREESTYLE KATHARINA [address]ENSOR) [facility] every 14 (fourteen) days. GLUCOSE [...] nursing note reviewed. Exam conducted with a dry wall plasterer present. Constitutional: Appearance: Normal appearance. He is [...] Abnormal Glucose 444 (*) Narrative: [facility]formed by: [facility], [address] [place] [address] CLIA ID: [id number] POCT GLUCOSE METER UNSOLICITED RESULTS - Abnormal Glucose 353 (*) Narrative: Performed by: [facility], [address] [place] [id number] CLIA ID: [id number] POCT GLUCOSE METER UNSOLICITED RESULTS - Abnormal Glucose 245 (*) Narrative: Performed by: [facility], [address] [place] [address] CLIA ID: [id number] MAGNESIUM - Normal MAGNESIUM 2.1 TROPONIN I - Normal TROPONIN I <0.012 Narrative: Patients with high levels of Biotin oral intake (ie >5 mg/day) may have falsely decreased Troponin levels. LIPASE - Normal LIPASE 101 COMPLETE URINALYSIS WITH REFLEX TO CULTURE Narrative: The following orders were created for panel order Urinalysis complete with reflex to Culture. Procedure Abnormality Status --------- ------ Complete Urinalysis[[id number]] Please view results for these tests on [...] to admit him to the ICU. The air drier machine operator was notified. He came down to see [...] condition which required my urgent intervention. CONSULTS: Agricultural Production Engineer PROCEDURES: Unless otherwise noted below, none 1. [...] Emergency Medicine Provider Kuldeep Rios MD 02/15/24 6433 [facility] 10-01-2023 History of Present illness Narrative Images from the original note were not included. [facility] [address] [facility] [address] [facility] [address] Dept: [phone] Dept Loc: [phone] Visit type: Established patient Reason for Visit: [...] Type 2 Diabetes mellitus with hyperglycemia and intermediate accountant insulin use: - Most Recent A1C is [...] Last KEVIN/Retina Eval: missed follow up at [facility] . Longer distance from home. Would like to be referred to ophthalmology in [place] Nephropathy -- No RONNIE/ARB Use -- Yes [...] Blood Gluc Sensor (FreeStyle Katharina 2 Sensor) [facility] every 14 (fourteen) days. glucose blood (OneTouch [...] REPAIR TONSILLECTOMY (HISTORICAL) UPPER GASTROINTESTINAL ENDOSCOPY 03/16/2015 [facility] URETERAL STENT PLACEMENT Common bile duct [...] CHOLHDLRATIO 4 10/12/2020 No results found for: [id number] Imaging/Testing: Dee Pitts APRN - AIRCRAFT COMMUNICATOR Portions of the information within this encounter [...] of the visit. documented in this encounter [facility] 10-01-2023 Instructions KAMRAN Vazquez CNP - 10/01/2023 9:30 AM EDT Low Dose Correction Algorithm Glucose: Dose: LESS than 149 No Insulin 150-199 1 Unit 200-249 2 Units 250-299 3 Units 300-349 4 Units 350-400 5 Units Above 400 6 Units documented in this encounter [facility] 09-27-2023 Telephone encounter Note S: Patient spoke with [facility] nurse regarding needing a refill on his [...] Partida Will send the script into the [facility] pharmacy. [facility] RN called patient ans relayed the message [...] question Protocols used: Medication Refill and Renewal [id number] [facility] 09-27-2023 Miscellaneous Notes S: Patient spoke with [facility] nurse regarding needing a refill on his [...] Partida Will send the script into the [facility] pharmacy. [facility] RN called patient ans relayed [...] question Protocols used: Medication Refill and Renewal [id number] documented in this encounter [facility] 09-02-2023 Telephone encounter Note Sent rx request to dr partida [facility] 09-02-2023 Miscellaneous Notes Sent rx request to dr partida documented in this encounter [facility] 07-18-2023 Telephone encounter Note Faxed last office notes to raisa at provided fax #: [phone]. [facility] 07-18-2023 Miscellaneous Notes Faxed last office notes to raisa at provided fax #: [phone]. Name of caller: Miri Contact phone number: [phone] Relationship to Patient: Raisa Provider: Frederic Pitts Practice: Endocrinology Chief Complaint/Reason for Call: Raisa is requesting date of last office visit and office visit notes to be faxed to renew sensors. Please fax or call to advise. Reference #[id number] Best time of day caller can be reached: Any Patient advised that office/PCP has 24-48 business hours to return their call: Yes documented in this encounter [facility] 07-17-2023 Telephone encounter Note Name of caller: Miri Contact phone number: [phone] Relationship to Patient: Shannanstefania Provider: Frederic Pitts Practice: Endocrinology Chief Complaint/Reason for Call: Adielepdro is requesting date of last office visit and office visit notes to be faxed to renew sensors. Please fax or call to advise. Reference #[id number] Best time of day caller can be reached: Any Patient advised that office/PCP has 24-48 business hours to return their call: Yes [facility] 05-28-2023 Telephone encounter Note Results of recent [...] increase the dose to 40 Mg daily [facility] 05-28-2023 Miscellaneous Notes Results of recent labs [...] 40 Mg daily documented in this encounter [facility] 05-27-2023 History of Present illness Narrative Images from the original note were not included. [facility] [address] [facility] [facility] [address] Dept: [phone] Dept Loc: [phone] Visit type: Established patient Reason for Visit: [...] Type 2 Diabetes mellitus with hyperglycemia and usp insulin use: - Most Recent A1C is [...] fatigue. [facility] visit: Before 12/13/2014 Last office visit: No significant Interval history Type of DM: 1 Onset :~2013 Current DM Medications: Humalog 14 units TID before meals with SS of 1 unit for every 50 greater than 150. Ran out of Lantus for few months Complications: Cardiovascular -- No Statin Use -- Yes Retinopathy -- No Last KEVIN/Retina Eval: missed follow up at [facility] . Longer distance from home. Would like to be referred to ophthalmology in [place] Nephropathy -- No RONNIE/ARB Use -- Yes [...] Blood Gluc Sensor (FreeStyle Katharina 2 Sensor) [facility] every 14 (fourteen) days. glucose blood (OneTouch [...] REPAIR TONSILLECTOMY (HISTORICAL) UPPER GASTROINTESTINAL ENDOSCOPY 03/16/2015 [facility] URETERAL STENT PLACEMENT Common bile duct [...] CHOLHDLRATIO 4 10/12/2020 No results found for: [id number] Imaging/Testing: Rosa Partida MD Portions of the information within this encounter were entered using an electronic dictation system. Best attempts were made to edit/proofread the information prior to note completion. Despite the review of information, some errors may remain. If there are questions related to the information contained within the note please contact the signing physician directly. documented in this encounter [facility] 05-27-2023 Instructions Rosa Partida MD - 05/27/2023 [...] in 4 weeks documented in this encounter [facility] 03-30-2023 Telephone encounter Note Prescription for Humalog KwikPen sent to pharmacy on file [facility] 03-30-2023 Miscellaneous Notes Prescription for Humalog KwikPen [...] policy Protocols used: Medication Refill and Renewal [id number] documented in this encounter [facility] 03-30-2023 Telephone encounter Note S: Patient spoke [...] policy Protocols used: Medication Refill and Renewal [id number] [facility] [facility] Tele[facility] Note RX pended for review and send [facility] 02-07-2023 Miscellaneous Notes RX pended for review and send documented in this encounter [facility] 01-30-2023 Telephone encounter Note Please reach out to patient and see if he would like to get this done. Will place order if agreeable. Thank you. [facility] 01-30-2023 Miscellaneous Notes Please reach out to patient and see if he would like to get this done. Will place order if agreeable. Thank you. This patient has had a prior lung screening CT scan at [facility]. According to our records, he/she is now due for an annual lung screening CT scan. Please evaluate and order this annual screening if your patient still meets lung screening criteria. documented in this encounter [facility] 01-29-2023 Telephone encounter Note This patient has had a prior lung screening CT scan at [facility]. According to our records, he/she is now due for an annual lung screening CT scan. Please evaluate and order this annual screening if your patient still meets lung screening criteria. [facility] 11-13-2022 History of Present illness Narrative Images from the original note were not included. [facility] [address] [address] Dept: [phone] Dept Loc: [phone] Visit type: Established patient Reason for Visit: [...] mg by mouth daily. Continuous Blood Gluc Domestic Freight Forwarder (Dexcom G6 aerospace engineer officer armament) device Use as instructed 1 each 0 [...] REPAIR TONSILLECTOMY (HISTORICAL) UPPER GASTROINTESTINAL ENDOSCOPY 03/16/2015 [facility] URETERAL STENT PLACEMENT Common bile duct [...] CHOLHDLRATIO 4 10/12/2020 No results found for: [id number] Imaging/Testing: KAMRAN Ponce CNP Portions of the information within this encounter were entered using an electronic dictation system. Best attempts were made to edit/proofread the information prior to note completion. Despite the review of information, some errors may remain. If there are questions related to the information contained within the note please contact the signing physician directly. documented in this encounter [facility] 09-28-2022 Telephone encounter Note Okay, thank you [facility] 09-28-2022 Miscellaneous Notes Okay, thank you Pt was a no show today for OV 09/28/[address] Duval. Pt was a no show for EUS/ERCP procedure on 09/10/22. Will close out consult at this time. documented in this encounter [facility] 09-28-2022 Telephone encounter Note Pt was a no show today for OV 09/28/[address] Duval. Pt was a no show for EUS/ERCP procedure on 09/10/22. Will close out consult at this time. [facility] 09-10-2022 Telephone encounter Note Pt no show for 09/[address] Duval, he didn't show up today - lets plan on seeing him in office next available. Pt scheduled for OV on 09/28 at 0900. [facility] 09-10-2022 Miscellaneous Notes Pt no show for [...] Pt advised it is here at the [facility]. He is aware to have a wheat combine driver take him home and nothing to [...] Chart also. Submitted to surgery scheduling, case #[id number] R: Patient instructed to call back with worsening symptoms, concerns or questions. Can schedule for eus/ercp Please review referral from [facility] for outpatient ERCP. Pt was discharged on 08/18/22. Incoming call from Dr Shell at [facility] where patient is admitted for vomiting. [...] be discharged today. documented in this encounter [facility] 09-06-2022 Telephone encounter Note S: Called patient [...] back with worsening symptoms, concerns or questions. [facility] 09-05-2022 Telephone encounter Note S: Called patient to inform that procedure time has been changed for Mon 09/10. B: third attempt and My chart messages A: No answer on patient phone # listed and on 's phone listed. VM not set up and VM box is full. R: Waiting for response from patient. [facility] 09-05-2022 Miscellaneous Notes S: Called patient to [...] Pt advised it is here at the [facility]. He is aware to have a wheat combine driver take him home and nothing to [...] Chart also. Submitted to surgery scheduling, case #[id number] R: Patient instructed to call back with worsening symptoms, concerns or questions. Can schedule for eus/ercp Please review referral from [facility] for outpatient ERCP. Pt was discharged on 08/18/22. Incoming call from Dr Shell at [facility] where patient is admitted for vomiting. [...] be discharged today. documented in this encounter [facility] 09-05-2022 Telephone encounter Note S: Called patient [...] phone. R: Will await a return call. [facility] 09-04-2022 Telephone encounter Note S: Called patient [...] 6:30 am. Number to the office provided. [facility] 09-04-2022 Miscellaneous Notes S: Called patient to [...] Pt advised it is here at the [facility]. He is aware to have a wheat combine driver take him home and nothing to [...] Chart also. Submitted to surgery scheduling, case #[id number] R: Patient instructed to call back with worsening symptoms, concerns or questions. Can schedule for eus/ercp Please review referral from [facility] for outpatient ERCP. Pt was discharged on 08/18/22. Incoming call from Dr Shell at [facility] where patient is admitted for vomiting. [...] be discharged today. documented in this encounter [facility] 08-23-2022 Telephone encounter Note S: Called patient to schedule EUS/ERCP procedure. B: today A: Spoke to the patient and scheduled EUS/ERCP procedure with Dr. Duval on Saturday, 09/10 at 12 pm with arrival time at 11 am. Pt advised it is here at the [facility]. He is aware to have a wheat combine driver take him home and nothing to [...] Chart also. Submitted to surgery scheduling, case #[id number] R: Patient instructed to call back with worsening symptoms, concerns or questions. [facility] 08-23-2022 Miscellaneous Notes S: Called patient to schedule EUS/ERCP procedure. B: today A: Spoke to the patient and scheduled EUS/ERCP procedure with Dr. Duval on Saturday, 09/10 at 12 pm with arrival time at 11 am. Pt advised it is here at the [facility]. He is aware to have a wheat combine driver take him home and nothing to [...] Chart also. Submitted to surgery scheduling, case #[id number] R: Patient instructed to call back with worsening symptoms, concerns or questions. Can schedule for eus/ercp Please review referral from [facility] for outpatient ERCP. Pt was discharged on 08/18/22. Incoming call from Dr Shell at [facility] where patient is admitted for vomiting. [...] be discharged today. documented in this encounter [facility] 08-21-2022 Telephone encounter Note Can schedule for eus/ercp [facility] Work Phone: 08-20-2022 Telephone encounter Note Please review referral from [facility] for outpatient ERCP. Pt was discharged on 08/18/22. [facility] 08-20-2022 Miscellaneous Notes Please review referral from [facility] for outpatient ERCP. Pt was discharged on 08/18/22. Incoming call from Dr Shell at [facility] where patient is admitted for vomiting. [...] be discharged today. 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 Spoke with Dr. Johnston on [employer] chat and she has okayed for discharge [...] fundus. Dr Wilson recommended ERCP outpatient with [facility] GI Dr. Ventura as they are out [...] medications aspirin 325 MG tablet Dexcom G6 aerospace engineer officer armament device Use as instructed Dexcom G6 Sensor [...] Your Medications These medications were sent to [facility] [address] [place] [address] [facility] [id number] insulin lispro 100 UNIT/ML injection insulin pen needle 31G X 8 mm misc Lantus SoloStar 100 UNIT/ML pen pantoprazole 40 MG EC tablet DIET: Adult diet Regular; 4 carb choices (60 gm/meal) ACTIVITY: No restriction. COMPLEXITY OF FOLLOW UP: [] Moderate Complexity: follow up within 7-14 calendar days (91935) [] Severe Complexity: follow up within 7 calendar days (66877) FOLLOW UP TESTING, PENDING RESULTS OR REFERRALS AT TRANSITIONAL CARE VISIT: [] Yes [] No PENDING STUDIES: DISPOSITION: Home FACILITY/HOME CARE AGENCY NAME: Follow up with Dani Ventura MD [address] [facility] [address] [facility] [phone] Follow up They will call you for date for ERCP. if you don't get a call by next week from them, then please call their office to check. [facility] Addiction IOP [address] [facility] [phone] Schedule an appointment as soon as possible for a visit [facility] IOP [address] [facility] [phone] Florentino Floewrs MD [address] [facility] [address] [place] [phone] Follow up in 1 week(s) Also follow [...] 08/18/2022, 12:51 PM documented in this encounter [facility] 08-17-2022 History of Present illness Narrative Images from the original note were not included. Hospitalist Progress Note 08/17/[id number]: Please page me ([phone]) for patient care issues. [phone]: Please page [facility] Hospitalist for any issues. Subjective: Admit Date: 08/14/2022 PCP: Andrea Lr MD Room#: B2-267/B2-267 A Interval History: patient states he is doing good today. He denies any chest pain or sob. No NV. No fevers or chills. He was hoping to go home. Adult diet Regular; 4 carb choices (60 gm/meal) @[id number]@ 24HR INTAKE/OUTPUT: No intake or output data [...] fundus. Dr Wilson [facility] as they are out [...] MD Division of Hospitalist Medicine Inpatient Medical Services/[facility] PAGER: Epic chat Department of Internal Medicine Division of Endocrinology, Diabetes, & Metabolism Endocrinology Note Patient Name: Ganesh Bush : 1955 AGE: 66 y.o. Room[facility]Bed: [facility]267/B2[facility] A Admission Date: 08/14/2022 Visit Date: 08/17/2022 Reason for Endocrine Consult: Severely uncontrolled Diabetes Provider/Team Requesting Consult: Dr. Shell PCP: Andrea Lr MD Outpt Fabric Machine Operator: Yes [facility] ASSESSMENT: Diabetes Type I [...] Dr. Flowers both can be reached through [employer] paging ANTICIPATED ENDOCRINE HOME GOING RECOMMENDATIONS: Optimized [...] related supplies or insulin. Outpt Follow Up-- [facility] endocrinology SUBJECTIVE/HPI: CHIEF COMPLAINT: Chief Complaint Patient [...] CHOLHDLRATIO 4 10/12/2020 No results found for: [id number] Lab Results Component Value Date TSH 6.42 (H)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 [facility] [place] Nephropathy -- No RONNIE/ARB Use -- Yes- [...] REPAIR TONSILLECTOMY (HISTORICAL) UPPER GASTROINTESTINAL ENDOSCOPY 03/16/2015 [facility] URETERAL STENT PLACEMENT Common bile duct [...] CHOLHDLRATIO 4 10/12/2020 No results found for: [id number] Imaging/Testing: KAMRAN Ponce CNP Portions of the information within this encounter were entered using an electronic dictation system. Best attempts were made to edit/proofread the information prior to note completion. Despite the review of information, some errors may remain. If there are questions related to the information contained within the note please contact the signing physician directly. documented in this encounter [facility] 05-09-2022 Evaluation + Plan note Associated Problem(s): Tobacco abuse Discussed smoking cessation [facility] 05-09-2022 Miscellaneous Notes Associated Problem(s): Tobacco abuse [...] medicines as needed documented in this encounter [facility] 05-09-2022 Evaluation + Plan note Associated Problem(s): Hyperlipidemia Controlled, continue rosuvastatin 20 mg daily and omega-3 fish oil daily [facility] 05-09-2022 Evaluation + Plan note Associated Problem(s): Type 1 diabetes mellitus with hyperglycemia (HCC) Uncontrolled, continue current dose of Levemir and insulin lispro, check blood sugars twice a day and drop off numbers in 2 weeks. [facility] 05-09-2022 Evaluation + Plan note Associated Problem(s): Primary hypothyroidism Controlled, continue levothyroxine 88 mcg daily [facility] 05-09-2022 Evaluation + Plan note Associated Problem(s): Chronic nausea Currently minimal, antinausea medicines as needed [facility] 05-09-2022 History of Present illness Narrative Patient verified by last name and date of . Patient wants a dry wall plasterer in the room during during the visit. no Electrical Repairer na Images from the original note were [...] hypothyroidism Unspecified hypothyroidism [facility] Diagnosis Type 1 diabetes mellitus with hyperglycemia (HCC) [facility] Diagnosis Type 1 diabetes mellitus with hyperglycemia (HCC)- Primary Mixed hyperlipidemia Primary hypothyroidism Unspecified hypothyroidism [facility] Diagnosis Primary hypothyroidism- Primary Unspecified hypothyroidism [facility] Diagnosis Essential hypertension- Primary Unspecified essential hypertension [facility]* Diagnosis Type 1 diabetes mellitus with hyperglycemia (HCC)- Primary Essential hypertension Unspecified essential hypertension Acquired hypothyroidism Unspecified hypothyroidism [facility] Diagnosis Type 1 diabetes mellitus with hyperglycemia (HCC) [facility] Diagnosis Primary hypothyroidism- Primary Unspecified hypothyroidism Mixed hyperlipidemia Type 1 diabetes mellitus with hyperglycemia (HCC) Chronic nausea Nausea alone Tobacco abuse Tobacco use disorder Nausea and vomiting, unspecified vomiting type- Primary Nausea and vomiting, unspecified vomiting type Dehydration Diabetic ketoacidosis without coma associated with other specified diabetes mellitus (HCC) [facility] Diagnosis Type 1 diabetes mellitus with hyperglycemia (HCC)- Primary Acquired hypothyroidism Unspecified hypothyroidism [facility] Diagnosis Primary hypothyroidism- Primary Unspecified hypothyroidism Mixed hyperlipidemia Type 1 diabetes mellitus with hyperglycemia (HCC) Chronic nausea Nausea alone Tobacco abuse Tobacco use disorder [facility]* Diagnosis Primary hypothyroidism- Primary Unspecified hypothyroidism Mixed hyperlipidemia Type 1 diabetes mellitus with hyperglycemia (HCC) Chronic nausea Nausea alone Tobacco abuse Tobacco use disorder Type 1 diabetes mellitus with hyperglycemia (HCC) [facility]* Diagnosis Primary hypothyroidism- Primary Unspecified hypothyroidism Mixed hyperlipidemia Type 1 diabetes mellitus with hyperglycemia (HCC) Chronic nausea Nausea alone Tobacco abuse Tobacco use disorder Type 1 diabetes mellitus with hyperglycemia (HCC) [facility]* Diagnosis Primary hypothyroidism- Primary Unspecified hypothyroidism Mixed hyperlipidemia Type 1 diabetes mellitus with hyperglycemia (HCC) Chronic nausea Nausea alone Tobacco abuse Tobacco use disorder Type 1 diabetes mellitus with hyperglycemia (HCC)- Primary Mixed hyperlipidemia [facility]* Diagnosis Primary hypothyroidism- Primary Unspecified hypothyroidism Mixed hyperlipidemia Type 1 diabetes mellitus with hyperglycemia (HCC) Chronic nausea Nausea alone Tobacco abuse Tobacco use disorder Type 1 diabetes mellitus with hyperglycemia (HCC)- Primary Mixed diabetic hyperlipidemia associated with type 2 diabetes mellitus (HCC) Hypertension associated with type 2 diabetes mellitus (HCC) Acquired hypothyroidism Unspecified hypothyroidism documented [facility] Diagnosis Onset Date Resolution Status Admit [...] 2024 9:31pm Sepsis acute August 10 9:31pm [facility] Work Phone: Evaluation note* Diagnosis Primary hypothyroidism- Primary Unspecified hypothyroidism Mixed hyperlipidemia Type 1 diabetes mellitus with hyperglycemia (HCC) Chronic nausea Nausea alone Tobacco abuse Tobacco use disorder Type 1 diabetes mellitus with hyperglycemia (HCC)- Primary Nausea and vomiting, unspecified vomiting type Mixed hyperlipidemia Primary hypothyroidism Unspecified hypothyroidism documented in this [facility] (narrative)* Consultation (Routine) - Pending Review Specialty Diagnoses / Procedures Referred By Contkaden t Referred To Contact Ophthalmology Diagnoses Type 1 diabetes mellitus with hyperglycemia (HCC) Procedures OK OFFICE/OUTPATIENT [facility] 60-74 MINUTES Dee Pitts, KAMRAN - RICKIE [address] [place] [address] [address] Referral ID Status Reason Start Date Expiration Date Visits Requested Visits Authorized [id number] Pending Review Specialty Services Required 11/13/2022 11/13/2023 1 1 [facility]ative[facility] Consultation (Routine) - Pending Review Specialty Diagnoses / Procedures Referred By Contkaden t Referred To Contact Ophthalmology Diagnoses Type 1 diabetes mellitus with hyperglycemia (HCC) Procedures OK OFFICE/OUTPATIENT NEW HIGH MDM 60 MINUTES Rosa aPrtida MD [address] [place] [address] Referral ID Status Reason Start Date Expiration Date Visits Requested Visits Authorized [id number] Pending Review Specialty Services Required 05/27/2023 05/26/2024 1 1 [facility] Consultation (Routine) - Pending Review Specialty Diagnoses / Procedures Referred By Duane t Referred To Contact Ophthalmology Diagnoses Type 1 diabetes mellitus with hyperglycemia (HCC) Procedures OK OFFICE/OUTPATIENT NEW HIGH MDM 60-74 MINUTES Andrea Lr MD [address] [facility], [place] [address] [facility] Ophth [address] [place] [address] Referral ID Status Reason Start Date Expiration Date Visits Requested Visits Authorized [id number] Pending Review Specialty Services Required 05/09/2022 11/05/2022 1 1 [facility] (narrative)No reason for referral information [facility] Work Phone: Summary Purpose Family History No Family History Records FoundNo Family History Records FoundNo Family History Records FoundNo Family History Records FoundNo Family History Records Found Advance Directives No Advanced Directives Records FoundDocuments on File Type Date Recorded Patient Facility Practice Specialist Expl anation DNR (Do Not Resuscitate) 05/11/2015 Date Activated Date Inactivated Comments 08/14/2022 3:43 PM 08/18/2022 5:10 PM Documents on File Type Date Recorded Patient Facility Practice Specialist Expl anation Advance Directives and Living Will Power of Rails Developer Latest Code Status on File Code Status Date Activated Date Inactivated Comments Full Code 01/05/2016 3:16 AM 01/06/2016 7:13 PM Full Code 09/12/2015 6:46 PM 09/15/2015 3:47 PM Documents on File Type Date Recorded Patient Facility Practice Specialist Expl anation ACP-Advance Directive ACP-Power of Rails Developer Latest Code Status on File Code Status Date Activated Date Inactivated Comments Full Code 08/14/2022 3:43 PM 08/18/2022 5:10 PM Documents on File Type Date Recorded Patient Facility Practice Specialist Expl anation DNR (Do Not Resuscitate) 05/11/2015 [...] section and content) DATE CREATED AUTHOR 10/23/2017 [facility] DATE CREATED AUTHOR AUTHOR'S ORGANIZ ATION 01/31/2022 [facility] DATE CREATED AUTHOR AUTHOR'S ORGANIZ ATION 09/01/2024 [facility] DATE CREATED AUTHOR AUTHOR'S ORGANIZ ATION 09/15/2024 [facility] DATE CREATED AUTHOR AUTHOR'S ORGANIZ ATION 09/22/2024 [facility] Care Teams (unrecognized sec tion and content) Publications Inspector Relationship Specialty Start Date [place] [address] PCP - General Family Medicine 10/20/14 Publications Inspector Relationship Specialty Start Date [place] [address] PCP - General Family Medicine 10/20/14 Publications Inspector Relationship Specialty Start Date [place] [address] PCP - General 10/20/14 Publications Inspector Relationship Specialty Start Date End [place] [address] PCP - General 10/20/14 Publications Inspector Relationship Specialty Start Date [place] [address] PCP - General 10/20/14 Publications Inspector Relationship Specialty Start Date End Date Andrea Lr MD [facility] [place] [address] PCP - General 10/20/14 Publications Inspector Relationship Specialty Start Date End Date Andrea Lr MD [facility] [place] [address] PCP - General 10/20/14 Publications Inspector Relationship Specialty Start Date End Date Andrea Lr MD [address] [facility] [place] [address] PCP - General 10/20/14 Publications Inspector Relationship Specialty Start Date End Date Andrea Lr MD [address] [facility] [place] [address] PCP - General 10/20/14 Publications Inspector Relationship Specialty Start Date End Date Andrea Lr MD [address] [facility] [place] [address] PCP - General 10/20/14 Publications Inspector Relationship Specialty Start Date End Date Andrea Lr MD [address] [facility] [place] [address] PCP - General 10/20/14 Publications Inspector Relationship Specialty Start Date End Date Andrea Lr MD [address] [facility] [place] [address] PCP - General 10/20/14 Publications Inspector Relationship Specialty Start Date End Date Andrea Lr MD [address] [facility] [place] [address] PCP - General 10/20/14 Publications Inspector Relationship Specialty Start Date End Date Andrea Lr MD [address] [facility] [place] [address] PCP - General 10/20/14 Publications Inspector Relationship Specialty Start Date End Date Andrea Lr MD [address] [facility] [place] [address] PCP - General 10/20/14 Publications Inspector Relationship Specialty Start Date [place] [address] PCP - General 10/20/14 Publications Inspector Relationship Specialty Start Date [place] [address] PCP - General 10/20/14 Publications Inspector Relationship Specialty Start Date [place] [address] PCP - General 10/20/14 Publications Inspector Relationship Specialty Start Date End Date Andrea Lr MD [address] [place] [id number] PCP - General 10/20/14 Publications Inspector Relationship Specialty Start Date End Date Andrea rL MD [address] [place] [id number] PCP - General 10/20/14 Publications Inspector Relationship Specialty Start Date End Date Andrea Lr MD [address] [place] [id number] PCP - General 10/20/14 Publications Inspector Relationship Specialty Start Date End Date Andrea Lr MD [address] [place] [id number] PCP - General 10/20/14 Publications Inspector Relationship Specialty Start Date End Date Andrea Lr MD [address] [place] [id number] PCP - General 10/20/14 Publications Inspector Relationship Specialty Start Date End Date Andrea Lr MD [address] [place] [phone] PCP - General 10/20/14 Publications Inspector Relationship Specialty Start Date End Date Andrea Lr MD [address] [place] [phone] PCP - General 10/20/14 Team Status: Active [...] Attending Provider Active Start: August 10, 2024 Publications Inspector Relationship Specialty Start Date End Date Andrea Lr MD [address] [place] [phone] PCP - General 10/20/14 Reason for Visit [...] Vomiting Procedures R11.10 Santana Shell MD [address] [address] [facility] 2e Telemetry [address] [place] [address] Referral ID Status Reason Start Date Expiration Date Visits Re quested Visits Authorized [id number] 1 Reason Onset Date Comments Care [...] type Procedures E86.0 (ICD-10-CM) - Dehydration Lane Maldonado MD [address] [place] [address] Phone: tel: fax: [facility] Intensive Care Unit ICU [address] [place] [address] Phone: tel: Referral ID Status Reason Start Date Expiration Date Visits Re quested Visits Authorized [id number] 1 Reason Comments Follow-up Diabetes Mellitus [...] Comments [facility] Follow-up [facility] 08/10-08/26/24 Scheduled Active and Recently Administ ered [...] Audrey Nayak RN)[phone] (Given - Provider: Storm oBnilla, JENELLE) [phone] (Given - Provider: Giana Hood, [...] pupils, Starting on 02/15/24 at 1833, +++notify information systems manager provider if used+++ ondansetron (Zofran) injection 4 [...] BE BASED ON THE PRIMARY CLINICAL RECORDS. [facility]. provides no warranty or guarantee of the accuracy or completeness of information in this document.
[2024-10-24 18:02] LABS: Bedside Glucose 345 mg/dL (74-106)
[2024-10-24 18:07] LABS: Anion Gap 20 (5-15); BUN 43 mg/dL (4-19); BUN/Creat Ratio 33.4 RATIO (10-20); Calcium,Total 8.8 mg/dL (7.6-11.0); Carbon Dioxide 22.9 mmol/L (21.0-32.0); Chloride 91 mmol/L (98-108); Creatinine, Serum 1.28 mg/dL (0.70-1.20); EST Glomerular Filtration Rate 61 (>60); Estimated Creatinine Clearance 57.82 ml/min (50-250); Glucose 356 mg/dL (70-99); Potassium 2.9 mmol/L (3.3-5.1); Sodium Level 134 mmol/L (133-145)
[2024-10-24 18:09] LABS: Troponin T High Sens 4 HR 22 ng/L (<=22)
--- NOTE | 2024-10-24 18:11 | ED.RN ---
attempted to call report, Keli will call back
--- NOTE | 2024-10-24 18:26 | ED.RN ---
this Rn called report to Keli in ICU
--- NOTE | 2024-10-24 18:34 | PCM.HP.STD ---
HPI - General General Date of Admission: 10/24/24 Date of Service: 10/24/24 Chief Complaint: n/v/abd pain HPI Narrative ABRAHMA BUSH, is a 68-year-old male history of diabetes, hypothyroidism, polysubstance use, GERD presented to [place] ED 10/24/2024 with nausea and vomiting/just not feeling well. Additionally with some abdominal pain that is diffuse. He has been feeling sick for 3 days but notes he has been taking his insulin as prescribed. In the ED white blood cell count 25.2, hemoglobin 16, point of care glucose greater than 500 with a venous blood gas with a pH of 7.50, bicarb of 18 with a total CO2 of 19. UA with ketones and BMP with sodium 131, potassium of 6.5, bicarb of 15.8 with a gap of 27, BUN 44 and creatinine 1.40. Beta hydroxybutyrate 6.6 and lactic acid 2.7. Chest x-ray obtained with no acute process. CT abdomen and pelvis with findings suggestive of colitis, distal esophageal thickening which could be esophagitis or neoplasm and subtle gastric wall thickening which could be gastritis. Hospitalist contacted to admit for DKA. Patient evaluated at bedside. Patient Dors is history as above, mostly nods or shakes head, reports the abdominal pain is diffuse and he still having the pain with nausea and dry heaves, has not had any fevers or chills, denies any changes in his bowel or bladder. Denies chest pain or shortness of breath. Reports he has been using his insulin [facility] Medical History Diabetes DKA Home Medications ?Medication ?Instructions ?Recorded ?Last Taken ?Type aspirin 325 mg tablet 325 mg PO DAILY@0800 heart health 09/27/18 06/16/20 History insulin regular human 100 unit/mL 15 unit subcut TIDCM diabeties 09/27/18 06/16/20 History injection solution (Novolin R Regular U-100 Insulin) levothyroxine 88 mcg tablet 88 mcg PO DAILY thyroid 09/27/18 06/16/20 History multivitamin with minerals 1 tab PO DAILY supplement 09/27/18 06/16/20 History (Multiple Vitamin-Minerals tablet) pravastatin 80 mg tablet 80 mg PO DAILY cholesterol 09/27/18 06/16/20 History insulin NPH isoph U-100 human 100 15 units subcut BID diabeties 06/16/20 5 Days Ago History unit/mL subcutaneous suspension ~06/11/20 ondansetron HCl 8 mg tablet 8 mg PO Q8H PRN PRN nausea and 06/17/20 Unknown Rx vomiting #30 tabs buprenorphine 8 mg-naloxone 2 mg 1.5 film sublingual DAILY opoid 08/12/24 Unknown History sublingual film dependence insulin glargine 100 unit/mL (3 18 unit subcut QHS diabetes 08/12/24 Unknown History mL) subcutaneous pen (Lantus Solostar U-100 Insulin) insulin lispro 100 unit/mL 14 unit subcut TIDCM diabetes 08/12/24 Unknown History subcutaneous pen levothyroxine 125 mcg tablet 125 mcg PO DAILY thyroid 08/12/24 Unknown History rosuvastatin 40 mg tablet 40 mg PO DAILY cholesterol 08/12/24 Unknown History ondansetron 4 mg disintegrating 4 mg PO Q6H PRN nausea and 08/26/24 Unknown Rx tablet vomiting #30 tabs pantoprazole 40 mg tablet,delayed 40 mg PO BID 30 days #60 tabs 08/26/24 Unknown Rx release buprenorphine 8 mg-naloxone 2 mg 1.5 ea sublingual DAILY 08/28/24 Unknown History sublingual film pantoprazole 40 mg tablet,delayed 40 mg PO BID 08/28/24 Unknown History release Allergy/AdvReac Type Severity Reaction Status Date / Time No Known Allergies Allergy Verified 09/16/24 08:05 Social History housing: house Smoking Status: Former smoker ROS ROS Narrative General: Denies fever/chills HENT: Denies stuffy nose, denies sore throat EYES: Denies changes in vision Resp: Denies cough, denies shortness of breath Cardiac: Denies chest pain GI: Denies changes in bowel, diffuse abdominal pain, some nausea : Denies changes in urination Extremity: Denies swelling MSK: Little bit generally weak Neuro: Denies any numbness/tingling Heme: Denies any bleeding or bruising Skin: Denies rashes Psychiatric: Patient reports feeling generally unwell Vital Signs Vital Signs Vital Signs: 10/24/24 12:53 10/24/24 13:06 10/24/24 13:49 Temperature 96.6 F L Temperature Source Temporal Pulse Rate 124 H Respiratory Rate 26 H Blood Pressure 149/104 H Blood Pressure Mean 119 Pulse Ox 99 98 Oxygen Delivery Method Room Air Room Air Room Air 10/24/24 14:52 10/24/24 14:54 10/24/24 16:00 Temperature 98 F Temperature Source Pulse Rate 110 H 110 H 108 H Respiratory Rate 22 H 22 H 25 H Blood Pressure 157/101 H 157/101 H 157/73 H Blood Pressure Mean 119 119 101 Pulse Ox 95 95 98 Oxygen Delivery Method 10/24/24 18:00 Temperature Temperature Source Pulse Rate 109 H Respiratory Rate Blood Pressure 160/96 H Blood Pressure Mean 117 Pulse Ox Oxygen Delivery Method Weight Weight: 79.379 kg Body Mass Index (BMI) 25.1 Physical Exam Narrative General: Patient laying in bed, appears to feel unwell HEENT: Atraumatic, normocephalic Eyes: Anicteric, normal conjunctiva, extraocular movements grossly intact Neck: Supple Respiratory: Clear to auscultation bilaterally, normal respiratory effort Cardiovascular: Low-grade sinus tachycardia GI: Soft, somewhat diffusely tender without rebound, guarding, rigidity Extremities: No edema Musculoskeletal: Moving all extremities Neuro: No overt focal neurological deficits Skin: No diffuse rashes Psych: Keeps eyes closed for most of exam, tends to be cooperative Results Lab / Micro Data 10/24/24 13:02 10/24/24 16:40 Labs: Laboratory Results - last 24 hr 10/24/24 13:02: WBC 25.2 H, RBC 5.21, Hgb 16.0, Hct 46.7, MCV 89.6, MCH 30.7, MCHC 34.3, RDW Std Deviation 41.6, RDW Coeff of Vane 12.7, Plt Count 303, MPV 11.7, Immature Gran % (Auto) 0.700, Neut % (Auto) 91.3 H, Lymph % (Auto) 3.1 L, [place] % (Auto) 4.6, Eos % (Auto) 0.0, Baso % (Auto) 0.3, Absolute Neuts (auto) 23.1 H, Absolute Lymphs (auto) 0.78 L, Nucleated RBC % 0, Platelet Estimate A, Sodium Cancelled, Potassium Cancelled, Chloride Cancelled, Carbon Dioxide Cancelled, Anion Gap Cancelled, BUN Cancelled, Creatinine Cancelled, Estim Creat Clear Calc Cancelled, Est GFR (MDRD) Non-Af Cancelled, BUN/Creatinine Ratio Cancelled, Glucose Cancelled, Calcium Cancelled, Troponin T High Sens Cancelled 10/24/24 13:29: POC Glucose > 500 H* 10/24/24 13:46: PT 12.8, INR 1.0, APTT 26.8 10/24/24 14:12: Sodium 131 L, Potassium 6.5 H*, Chloride 88 L, Carbon Dioxide 15.8 L, Anion Gap 27 H, BUN 44 H, Creatinine 1.40 H, Estim Creat Clear Calc 52.87, Est GFR (MDRD) Non-Af 55 L, BUN/Creatinine Ratio 31.4 H, Glucose 522 H*, Calcium 8.4, Troponin T High Sens 17 D, b-Hydroxybutyric mmol/L 6.6 H 10/24/24 14:21: Urine Color Yellow, Urine Clarity Clear, Urine pH 6.0, Ur Specific [place] 1.030, Urine Protein 100 H, Urine Glucose (UA) 1000 H, Urine Ketones 150 A*, Urine Occult Blood 50 H, Urine Nitrite Positive H, Urine Bilirubin Negative, Urine Urobilinogen Normal, Ur Leukocyte Esterase Negative, Urine RBC 0-5 SEEN, Urine WBC 0 SEEN, Ur Squamous Epith Cells 0 SEEN, Urine Bacteria 0 SEEN, Urine Mucus 0 SEEN 10/24/24 14:53: Lactic Acid 2.7 H* 10/24/24 15:30: POC Glucose 484 H* 10/24/24 16:40: Sodium 134, Potassium 2.9 L, Chloride 91 L, Carbon Dioxide 22.9, Anion Gap 20 H, BUN 43 H, Creatinine 1.28 H, Estim Creat Clear Calc 57.82, Est GFR (MDRD) Non-Af 61, BUN/Creatinine Ratio 33.4 H, Glucose 356 H, Calcium 8.8, Troponin T Hi Sens 4Hr 22 10/24/24 17:45: POC Glucose 345 H ABG Data ABG results: ABG 10/24/24 13:48 Specimen Type AMBROSIO Sample Site Not entered VBG pH 7.50 H VBG pO2 65 H VBG HCO3 18 L VBG Total CO2 19 L VBG O2 Sat (Calc) 95 H VBG Base Excess -5 L POC Mix VBG pCO2 Pt Tmp 23.4 L O2 Delivery Device Room Air Imaging Radiology Impression Chest X-Ray 10/24/24 13:12 IMPRESSION: No focal consolidations. Reading Location: [facility] Abdomen/Pelvis CT 10/24/24 13:35 IMPRESSION: 1. Wall thickening of the distal sigmoid colon, compatible with colitis. 2. Persistent severe circumferential wall thickening of the distal esophagus, which may reflect esophagitis or esophageal neoplasm. Correlation with upper endoscopy if not recently performed is recommended for further evaluation. 3. Unchanged subtle gastric wall thickening, which may represent gastritis. Reading Location: [facility] Assessment & Plan Assessment/Plan (1) DKA (diabetic ketoacidosis): PLAN: Plan #DKA in setting of chronic type 1 diabetes -Serum glucose in ED 522, anion gap 27 with a bicarb of 15.8 -Urine ketones positive -Serum beta hydroxybutyrate 6.6 -Admit to intensive care unit -N.p.o. -Insulin drip started -Aggressive fluid hydration -Glucose checks and DKA protocol -BMP every 4H -Replace electrolytes per protocol -I's and O's -Last A1c less than 90 days ago, 11.4 on 10/10/2024 -When serum glucose is <250 mg/dl, change IV fluids to D5%1/2NS at 150 ml/hr and continue insulin drip as per nomogram # Hyperkalemia-with subsequent hypokalemia - Initially hyperkalemic but improved significantly with fluids and insulin to the point where patient became hypokalemic - Potassium replaced - Trend BMP #N/V/Abd pain - Suspect secondary to DKA in part but CT also demonstrated colitis and possible gastritis -Management as above -IV fluids -Antiemetics/supportive care # Distal esophageal thickening -Esophagitis versus neoplasm, will need endoscopy once medically stable, may be able to do this on an outpatient basis #Hypothyroidism -Continue Synthroid # History of polysubstance abuse - Continue home buprenorphine # Elevated lactic acid - 2.7 on presentation, suspect due to patient's DKA - IV fluids - Will repeat #Tobacco use -Advise cessation -Nicotine replacement available if desired #GERD -Continue PPI, will change to IV given concerns for gastritis and possible esophagitis versus neoplasm #DVT ppx: Heparin subcu Michelle Martin MD Charges/Coding Visit Charges Inpatient E&M: 84609 Init Hosp L2
--- OUTSIDE RECORDS SUMMARY | 2024-10-24 19:01 | XMS RPT_ITS | CCD ---
Author Organization [facility] Care Team Providers Care [place] Therapist Name Role Phone JAVAN MCKEONGuero Unavailable Unavailable VERO VIVAR Unavailable Unavailable TOD LR Unavailable Unavailable Tod Lr Primary Care Provider [phone] Tod Lr MD Primary Care Provider AUSTIN RODRIGUEZ Attending Unavailable PROVIDER, UNKNOWN Referring Unavailable Tod Lr Primary Care Unavailable PROVIDER, UNKNOWN Referring Unavailable Alvin Hernandez Attending Unavailable Tod Lr Primary Care Unavailable Tod Lr Primary Care Unavailable Tod Lr Attending Unavailable PROVIDER, UNKNOWN Referring Unavailable PROVIDER, UNKNOWN Referring Unavailable Holden Castillo Attending Unavailable Tod Lr Primary Care Unavailable Tod Lr MD Primary Care Provider Tod Lr MD Primary Care Provider Dr. Jose Alfredo Valderrama DO Emergency Provider [phone] Care Physician, No Primary Primary Care Provider Unavailable Dr. Miki Abdi DO Admit Provider Unavail able Dr. Miki Abdi DO Attending Provider Unav ailable Tod Lr Primary Care Unavailable Miki Abdi Consulting [...] Jo Consulting Unavailable Angelica, Daryl Consulting Unavailable Dhesi, Ramos Consulting Unavailable Lion, Sujoy Consulting Unavailable Key, Soleyah Consulting Unavailable Manuelito Herman Consulting Unavailable Ulices Saucedo Consulting Unavailable Gregor Zuniga Consulting Unavailable Jake, Jayaprakas Consulting Unavailable Brandon Medrano Consulting Unavailable Migdalia, Ranjan Consulting Unavailable Ranjan Negron Referring Unavailable Vero Landeros Attending Unavailable Brandon Medrano Attending Unavailable Care Physician, No Primary Primary Care Unava ilable Miki Glover Attending Unavailable Miki Glover Consulting Unavailable Gary Lezama Consulting Unavailable Sita Granados Attending Unavailable Gary Lezama Attending Unavailable Brandon Medrano Referring Unavailable Levon Graff Attending Unavailable Miki Glover Attending Unavailable Miki Abdi Admitting Unavailable Miki Abdi Consulting Unavailable Chichi, Tod Primary Care Unavailable Brandon Medrano Consulting Unavailable Jake, Jayaeves Consulting Unavailable Migdalia, Ranjan Consulting Unavailable Lise Gary Consulting Unavailable Chichi, Tod Primary Care Unavailable Scottie Martinez Attending Unavailable Prerna, Levon Attending Unavailable Brandon Medrano Referring Unavailable Chichi, Tod Primary Care Unavailable Miki Abdi Attending Unavailable ALBINA SERVIN Attending Unavailable CHICHI, TOD Primary Care Unavailable CHICHITOD Attending Unavailable CHICHI, TOD Primary Care Unavailable CHICHI, TOD Primary Care Unavailable LANE MALDONADO Admitting Unavailable MALINI LAGUNA Attending Unavailable DEE PITTS Attending Unavailable CHICHI, TOD Primary Care Unavailable Gary Lezama Referring Unavailable Doris Huntleyus Attending Unavailable Chichi, Tod Primary Care Unavailable Ungur, Remus Referring Unavailable Jeffery Villafana Attending Unavailable Chichi, Tod Primary Care Unavailable Dr. Jose Alfredo Valderrama DO Emergency Provider Abdi DO, Dr. Livingston [place] Provider Unavail able Dr. Miki Abdi DO Other Provider Unavail able Chichi MCKENNA, Dr. Mendez Primary Care Provider [phone] Dr. Brandon Medrano MD Other Provider Jake MCKENNA, Dr. Gamez Other Provider Belen MCKENNA, Dr. Livingston Attending Provider Unavaila ble Migdalia OJEDA, Dr. Woodruff Other Provider Lise MCKENNA, Dr. Vega Other Provider Care Physician, No Primary Primary Care Provider Unavailable Mitchell MCKENNA, Dr. Brandon Dailey Referring Provider Anahi MCKENNA, Dr. Ramirez Other Provider Ambika MCKENNA, Dr. Schmitt Other Provider Mata MCKENNA, Dr. Sorensen Other Provider Tigre OJEDA, Dr. Hogue Attending Provider Tigre OJEDA, Dr. Hogue Other Provider Smith MCKENNA, Dr. Miki Veloz Other Provider Johnathan MCKENNA, Dr. Ratliff Other Provider Shruti MCKENNA, Dr. Garzon Other Provider Phong MCKENNA, Dr. Hayes Other Provider Lars MCKENNA, Dr. Esquivel Other Provider Dr. Keith Robison MD Other Provider [phone] Dr. Osei Talbot MD Other Provider Tangela MCKENNA, Dr. Macario Other Provider [phone] Ashkan MCKENNA, Dr. Caldwell Other Provider Unavailabl john Torres MD, Dr. Sheth Other Provider [phone] Lacie MCKENNA, Dr. Rivera Other Provider [phone] Gabriel Jo MD Other Provider Angelica MCKENNA, Dr. Brito Other Provider Sushma OJEDA, Dr. Beasley Other Provider Amisha MCKENNA, Dr. Kapadia Other Provider Key MCKENNA, Dr. Fu Other Provider Batsheva DO, Dr. Billings Other Provider Lewis MCKENNA, Dr. Elena Other Provider Efrain MCKENNA, Dr. Bundy Other Provider Mitchell MCKENNA, Dr. Brandon Dailey Attending Provider Prerna DO, Dr. Dos Santos Attending Provider Michelle MCKENNA, Dr. Rubin Attending Provider Migdalia OJEDA, Dr. Woodruff Referring Provider Migdalia OJEDA, Dr. Woodruff Attending Provider [phone] Belen MCKENNA, Dr. Livingston Other Provider Unavailable Alyssa ESPARZA, Sita Attending Provider [phone] Lise MCKENNA, Dr. Vega Attending Provider [phone] Lise MCKENNA, Dr. Vega Referring Provider Yuko OJEDA, Dr. Boles Attending Provider [phone] Yuko DO, Dr. Boles Emergency Provider Yuko OJEDA, Dr. Boles Referring Provider Ledy MCKENNA, Dr. Gil Attending Provider [phone] Hannon DO, Dr. Avila Referring Provider Riddhi OJEDA, Dr. Avila Emergency Provider Mario MCKENNA, Dr. Martinez Admit Provider Mario MCKENNA, Dr. Martinez Attending Provider Medications Current Medications Medication Drug Class(es) Dates [...] mg / naloxone 2 mg sublingual film (3 sources) Partial Opioid Agonist, Opioid Antagonist Start: 08-26-2024 buprenorphine-naloxo ne (Suboxone) 8-2 MG per sublingual film Take 1.5 films SL once daily 08/26/2024 Active Start: 08-12-2024 Continuous Blood Gluc Receiv er (Dexcom G7 Presto Log Operator) device (1 source) Start: 11-13-2022 End: 11-13-2022 Continuous Blood Gluc Receiv er (Dexcom G7 Presto Log Operator) device Indications: Type 1 diabetes mellitus with hyperglycemia (HCC) 1 each Once for 1 dose. 1 each 0 11/13/2022 11/13/2022 Active Continuous Glucose Presto Log Operator (FreeStyle Violet 3 Sidney) device (1 source) Start: 08-05-2024 End: 08-05-2024 Continuous Glucose Presto Log Operator (FreeStyle Violet 3 Sidney) device 1 Device Once for 1 dose. 1 each 08/05/2024 08/05/2024 Active Continuous Glucose Sensor (FreeStyle Violet 3 Plus Sensor) misc (4 sources) Start: 08-07-2024 Continuous Glu cose Sensor (FreeStyle Violet 3 Plus Sensor) misc 1 Device every 15 days. 6 each 3 08/07/2024 Active Start: 08-05-2024 End: 08-06-2024 Continuous Glucose Sensor (F reeStyle Violet 3 Plus Sensor) misc 1 Device every 15 days. 6 each 3 08/05/2024 08/06/2024 Discontinued (Reorder) Start: 08-05-2024 Continuous Glu cose Sensor (FreeStyle Ivolet 3 Plus Sensor) misc 1 Device every 15 days. 6 each 3 08/05/2024 Active 3 ml insulin glargine 100 un t/ml pen injector (20 sources) Insulin Analog Start: 08-05-2024 End: 10-08-2025 Start: 02-16-2024 End: 02-17-2024 inject 14 [IU] [...] 08-17-2022 insulin glargine (Lantus) injection 18 Units 3 ml insulin lispro 100 unt/ ml pen injector (20 sources) Insulin Analog Start: 08-05-2024 End: 08-15-2025 Start: 04-16-2024 End: 07-08-2024 inject 14 [IU] [...] (Pharmacist Choice Alcohol) pads levothyroxine sodium 0.125 m g oral tablet (20 sources) l-Thyroxine Start: 05-28-2023 End: 08-05-2025 Start: 05-10-2022 End: 05-28-2023 take 1 tablet by mouth once daily levothyroxine (Synthroid, Levoxyl) 100 MCG tablet Indications: Type 1 diabetes mellitus with hyperglycemia (HCC) Take 1 tablet (100 mcg) by mouth daily. 30 tablet 05/10/2022 05/28/2023 Discontinued (Therapy completed) Start: 02-08-2022 [...] DAILY 90 tablet 1 10/26/2021 Active Start: 09-27-2018 take 1 tablet by feli th once daily levothyroxine (SYNTHROID) 88 MCG tablet Indications: Uncontrolled type 1 diabetes mellitus with complication (HCC) TAKE 1 TABLET BY MOUTH ONCE DAILY 30 tablet 1 03/30/2020 Active Multiple Vitamin (MULTIVITAM IN ADULT PO) [...] ondansetron (Zofran) injecti on 4 mg Start: 06-17-2020 End: 10-01-2023 take 1 tablet by mouth every twelve hours as needed for nausea ondansetron (Zofran) 8 MG tablet TAKE 1 TABLET BY MOUTH EVERY 12 HOURS NEEDED FOR NAUSEA 0 10/26/2021 05/09/2022 Discontinued (Therapy completed) pantoprazole 40 mg delayed r elease oral tablet (20 sources) Proton Pump Inhibitor Start: 08-16-2024 Start: 02-16-2024 End: 08-05-2024 take 1 tablet [...] completed) pravastatin sodium 80 mg oral tablet (3 sources) HMG-CoA Reductase Inhibitor Start: 12-03-2019 take 1 tablet by mouth once daily pravastatin (PRAVACHOL) 80 MG tablet Take 1 tablet by mouth daily 30 tablet 5 12/03/2019 Active Start: 09-27-2018 take 1 tablet by feli th once daily pravastatin (PRAVACHOL) 80 MG tablet Take 1 tablet by mouth daily 30 tablet 0 09/09/2019 Active promethazine hydrochloride 25 mg oral tablet (1 source) Phenothiazine Start: 09-30-2018 take 1 tablet by mouth every eight hours as needed for nausea promethazine (PHENERGAN) 25 MG tablet Take 1 tablet by mouth every 8 hours as needed for Nausea 30 tablet 0 09/30/2018 Active rosuvastatin calcium 40 mg oral tablet (20 sources) HMG-CoA Reductase Inhibitor Start: 02-16-2024 End: 02-17-2024 take 40 mg by mouth once daily 40 mg, Oral, Daily, First dose on 02/16/24 at 0900 Start: 05-28-2023 End: 09-30-2024 Start: 11-28-2022 End: 05-28-2023 take 1 tablet [...] mouth daily 1 tablet 0 10/24/2021 Active Semglee, yfgn, 100 UNIT/ML solution pen-injector (1 source) Start: 08-31-2024 inject 18 [IU] by subcutaneous injection once daily Semglee, yfgn, 100 UNIT/ML solution pen-injector Inject 18 Units under the skin Nightly. 08/31/2024 Active (1 source) Start: 09-27-2018 Completed/Discontinued Medications Medication Drug Class(es) Dates Sig [...] Platelet Aggregation Inhibitor, Nonsteroidal Anti-inflammatory Drug Start: 09-27-2018 End: 08-18-2022 take 325 mg by mouth [...] (Catapres) tablet 0.1 mg Continuous Blood Gluc Presto Log Operator (Dexcom G6 teleradiologist) device (14 sources) Start: 05-10-2022 End: 11-13-2022 Continuous Blood Gluc Presto Log Operator (Dexcom G6 teleradiologist) device Indications: Type 1 diabetes mellitus with hyperglycemia (HCC) Use as instructed 1 each 0 05/10/2022 11/13/2022 Discontinued Start: 05-10-2022 Continuous Blo od Gluc Presto Log Operator (Dexcom G6 teleradiologist) device Indications: Type 1 diabetes mellitus with [...] 11/13/2022 Active Continuous Blood Gluc Sensor (FreeStyle Violet 2 Sensor) misc (16 sources) End: 08-05-2024 Continuous Blood Gluc Sensor (FreeStyle Violet 2 Sensor) misc Indications: Type 1 diabetes mellitus with hyperglycemia (HCC) every 14 (fourteen) days. 08/05/2024 Discontinued (Therapy completed) Continuous Blood Gluc Sensor (FreeStyle Violet 2 Sensor) misc Indications: Type 1 diabetes mellitus with hyperglycemia (HCC) every 14 (fourteen) days. Active Continuous Blood Gluc Sensor (FreeStyle Violet 2 Sensor) misc Indications: Type 1 diabetes [...] Blo od Gluc Transmit (Dexcom G6 transmitter) misc Indications: Type 1 [...] 05/10/2022 08/18/2022 Discontinued (Stop taking at discharge) Insulin Lispro (Humalog) injection 0-12 Units (2 sources) Start: 02-16-2024 End: 02-17-2024 Insulin Lispro (Humalog) injection 0-12 Units insulin isophane, human 100 unt/ml injectable suspension (9 sources) Start: 10-27-2021 HUMULIN N 100 UNIT/ML injection vial Indications: Type 1 diabetes mellitus with hyperglycemia (HCC) Inject 15 units subcutaneous twice a day before each meal 30 mL 3 10/27/2021 Active Start: 06-16-2020 End: 02-16-2024 inject 1 dose by subcutaneous injection every twelve hours 12 Units (rounded from 12.24 Units = 0.15 Units/kg 81.6 kg), SubCUTAneous, Every 12 hours, First dose on 02/15/24 at 1545, Give at onset and every 12 hours. If BGT is Start: 10-02-2018 NOVOLIN N 100 UNIT/ML injection vial INJECT 15 UNITS TWICE A DAY BEFORE MEALS 10 mL 10 10/02/2018 Active Start: 09-27-2018 End: 06-16-2020 inject 15 [IU] by subcutaneous injection twice daily before mealtime, then inject 100 [IU] by subcutaneous injection insulin NPH (NOVOLIN N) 100 UNIT/ML injection vial Indications: Uncontrolled type 1 diabetes mellitus with complication (HCC) UNJECT 15 UNITS SUBCUTANEOUSLY TWICE DAILY BEFORE MEALS 3 vial 3 11/19/2019 Active iopamidol (Isovue-370) 76 % injection 75 mL (1 source) Start: 08-14-2022 End: 08-14-2022 iopamidol (Isovue-370) 76 % injection 75 mL lisinopril 5 mg oral tablet (20 sources) Angiotensin Converting Enzyme Inhibitor Start: 01-23-2023 End: 09-15-2024 Start: 09-18-2022 take 0.5 tablet by m outh once daily lisinopril 5 MG tablet Take 1/2 (one-half) tablet by mouth once daily 45 tablet 0 09/18/2022 Active Start: 08-15-2022 End: 04-22-2023 take 2.5 mg by mouth once daily [...] 02-15-2024 End: 02-17-2024 omega-3 acid ethyl esters (fdc) 1000 mg oral capsule (20 sources) Start: [...] mL IVPB Mini-Bag Plus polyethylene glycol 3350 81406 mg powder for oral solution (1 source) [...] ml insulin, regular, human 1 unt/ml injection (7 sources) Insulin Start: 02-15-2024 End: 02-16-2024 1-50 [...] Active Start: 11-19-2019 inject 15 [IU] by odell bcutaneous injection once daily at dinner, then inject 60 [IU] by subcutaneous injection insulin regular (NOVOLIN R) 100 UNIT/ML injection Indications: Uncontrolled type 1 diabetes mellitus with complication (HCC) INJECT 15 UNITS SUBCUTANEOUSLY WITH BREAKFAST, LUNCH, AND DINNER PLUSSLIDING SCALE (MAX DAILY DOSE OF 60 UNITS) 6 vial 3 11/19/2019 Active Start: 09-27-2018 inject 15 [IU] by odell bcutaneous injection once daily at dinner, then inject 60 [IU] by subcutaneous injection insulin regular (NOVOLIN R) 100 UNIT/ML injection INJECT 15 UNITS SUBCUTANEOUSLY WITH BREAKFAST, LUNCH, AND DINNER PLUSSLIDING SCALE (MAX DAILY DOSE OF 60 UNITS) 20 mL 11 07/31/2019 Active 5 ml sodium chloride 9 mg/ml [...] pain; Translations: [Right upper quadrant pain] Onset: 5 12-20-2014 Episodic Acute and unspecified renal failure (1 source) Prerenal azotemia; Translations: [Unspecified kidney failure] 06-16-2020 Chronic Acute and unspecified renal failure (8 sources) Acute renal failure syndrome; Translations: [Acute kidney failure, unspecified] Onset: 5 08-10-2024 Episodic Anxiety disorders (20 sources) Anxiety; Translations: [Anxiety disorder, unspecified] Onset: 6 05-20-2015 Chronic Cardiac dysrhythmias (1 source) ECG: sinus tachycardia; Translations: [Tachycardia, unspecified] 06-16-2020 Episodic Chronic obstructive pulmonary disease and bronchiectasis (2 sources) Centrilobular emphysema; Translations: [Centrilobular emphysema] Onset: 2 Chronic Complication of device; implant or graft (1 source) 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, implants and grafts, initial encounter; Translations: [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, implants and grafts, initial encounter] Onset: 5 Chronic Complication of device; implant or graft (2 sources) Unspecified complication of cardiac and vascular prosthetic device, implant and graft, subsequent encounter; Translations: [Complication of dialysis] Onset: 5 08-28-2024 Episodic Complications of surgical procedures or medical care (1 source) Postoperative hemorrhage; Translations: [Hemorrhage complicating a procedure] 09-05-2024 Episodic Coronary atherosclerosis and other heart disease (2 sources) Atherosclerotic heart disease of [place] coronary artery without angina pectoris; Translations: [Athscl heart disease of [place] coronary artery w/o ang pctrs] Onset: 2 Chronic Diabetes mellitus with complications (20 sources) Diabetic ketoacidosis; Translations: [Type 2 diabetes mellitus with ketoacidosis without coma] Onset: 6 Resolved: 1 09-15-2015 Chronic Diabetes mellitus without complication (20 sources) Type 1 diabetes mellitus; Translations: [Type 1 diabetes mellitus with hyperglycemia] Onset: 5 09-15-2015 Chronic Diseases of white blood cells (7 sources) Leukocytosis; Translations: [Elevated white blood cell count, unspecified] Onset: 5 08-10-2024 Chronic Disorders of lipid metabolism (20 sources) Hyperlipidemia; Translations: [Hyperlipidemia, unspecified] Onset: 1 10-13-2020 Chronic Esophageal disorders (2 sources) Gastro-esophageal reflux disease without esophagitis; Translations: [Gastro-esophageal reflux disease without esophagitis] Onset: 2 Chronic Essential hypertension (4 sources) Essential hypertension; Translations: [Essential (primary) hypertension] Onset: 4 09-02-2023 Chronic Fluid and electrolyte disorders (14 sources) Dehydration; Translations: [Dehydration] Onset: 4 02-15-2024 Episodic Gastrointestinal hemorrhage (7 sources) Upper gastrointestinal bleeding; Translations: [Gastrointestinal hemorrhage, unspecified] Onset: 5 08-10-2024 Episodic Menopausal disorders (2 sources) Hormone replacement therapy; Translations: [Hormone replacement therapy] Onset: 2 Episodic Nausea and vomiting (20 sources) Nausea; Translations: [Vomiting] Onset: 5 12-20-2014 Episodic Nutritional deficiencies (20 sources) Vitamin D deficiency; Translations: [Vitamin D deficiency, unspecified] Onset: 7 10-01-2016 Chronic Other aftercare (2 sources) Other skilled nursing (current) drug therapy; Translations: [Other buttermaker continuous churn (current) drug therapy] Onset: 2 Episodic Other aftercare (2 sources) longterm (current) use of aspirin; Translations: [longterm (current) use of aspirin] Onset: 2 Episodic Other aftercare (2 sources) oysterman (current) use of insulin; Translations: [longterm (current) use of insulin] Onset: 2 Episodic Other circulatory disease (4 sources) Low blood pressure; Translations: [Hypotension, unspecified] 08-10-2024 Episodic Other circulatory disease (3 sources) Hypotension, unspecified; Translations: [Hypotension, unspecified] Onset: 5 Episodic Other lower respiratory disease (2 sources) Solitary pulmonary nodule; Translations: [Solitary pulmonary nodule] Onset: 2 Episodic Other nervous system disorders (4 sources) Metabolic encephalopathy; Translations: [Metabolic encephalopathy] 08-10-2024 Chronic Other nervous system disorders (3 sources) Metabolic encephalopathy; Translations: [Metabolic encephalopathy] Onset: 5 Chronic Other screening for suspected conditions (not mental disorders or infectious disease) (1 source) Computed tomography result abnormal; Translations: [Abnormal findings on diagnostic imaging of other specified body structures] Chronic Other screening for suspected conditions (not mental disorders or infectious disease) (3 sources) Encounter for screening for malignant neoplasm of respiratory organs; Translations: [Serum creatinine raised] Onset: 2 Episodic Residual codes; unclassified (2 sources) Tobacco user; Translations: [Tobacco abuse] Onset: 5 11-21-2014 Chronic Residual codes; unclassified (2 sources) Transient alteration of awareness; Translations: [Transient alteration of awareness] Onset: 5 Episodic Respiratory failure; insufficiency; arrest (adult) (2 sources) Respiratory failure; Translations: [Respiratory failure, unspecified, unspecified whether with hypoxia or hypercapnia] 08-10-2024 Episodic Septicemia (except in labor) (7 sources) Sepsis; Translations: [Sepsis, unspecified organism] Onset: [...] Classification Problem Date Documented Da te Episodic/Chronic Open wounds of extremities (4 sources) Open [...] Test Name Value Interpretation Reference Range Facility Absolute lymphocyte countOrd ered By: ED PROVIDER on 10-24-2024 Lymphocytes Auto (Unsp spec) [#/Vol] 0.78 10*3/uL Low 0.83-4.51 [facility] Activated partial thrombopla stin time (aPTT) in platelet poor plasma by coagulation aOrdered By: Austin Hannon on 10-24-2024 aPTT Coag (PPP) [Time] 26.8 s 24.1-36.2 [facility] Anion gap in Serum or Plasma Ordered By: Austin Hannon on 10-24-2024 Anion gap [Moles/Vol] 20 mmol/L High 5-15 [facility] Automated lymphocyte count a s percentage of total leukocytesOrdered By: ED PROVIDER on 10-24-2024 Lymphocytes/100 WBC Auto (Unsp spec) 3.1 % Low 19-41 [facility] BUN/creatinine ratioOrdered By: Austin Hannon on 10-24-2024 Urea nitrogen/Creatinine [Mass ratio] 33.4 mg/mg High 10-20 [facility] Basophil percentageOrdered B y: ED PROVIDER on 10-24-2024 Basophils/100 WBC (Bld) 0.3 % 0-1 [facility] Beta-hydroxybutyrateOrdered By: Austin Hannon on 10-24-2024 Beta hydroxybutyrate [Mass/Vol] 6.6 mmol/L High 0.0-0.3 [facility] Bilirubin Test strip Ql (U)O rdered By: Austin Hannon on 10-24-2024 Bilirubin Ql (U) Negative Negative [facility] CO2 (BldV) [Moles/Vol]Ordere d By: Austin Hannon on 10-24-2024 CO2 [Moles/Vol] 19 mmol/L Low 23-33 [facility] Carbon dioxide, total [Moles /volume] in Central venous bloodOrdered By: Austin Hannon on 10-24-2024 CO2 [Moles/Vol] 22.9 mmol/L 21.0-32.0 [facility] Chloride assayOrdered By: Paresh Hannon on 10-24-2024 Chloride [Moles/Vol] 91 mmol/L Low 98-108 [facility] Eosinophil percentageOrdered By: ED PROVIDER on 10-24-2024 Eosinophils/100 WBC (Bld) 0.0 % 0-5 [facility] Erythrocyte distribution wid th ratioOrdered By: ED PROVIDER on 10-24-2024 Erythrocyte distribution width (RBC) [Ratio] 12.7 % 11.6-14.6 [facility] Erythrocyte distribution wid th standard deviationOrdered By: ED PROVIDER on 10-24-2024 Erythrocyte distribution width (RBC) [Ratio] 41.6 fl 35.1-43.9 [facility] Glomerular filtration rate ( GFR) estimation/1.73 sq m using serum, plasma, or whole bOrdered By: Austin Hannon on 10-24-2024 GFR/1.73 sq M.predicted among non-blacks MDRD (S/P/Bld) [Vol rate/Area] 61 mL/min/{1.73_m2} >60 [facility] deOrdered By: Michelle Martin on 10-24-2024 Glucose [Mass/Vol] 345 mg/dL High 74-106 [facility] Hematocrit Auto (Bld) [Volum e fraction]Ordered By: ED PROVIDER on 10-24-2024 Hematocrit (Bld) [Volume fraction] 46.7 % 40-54 [facility] Hemoglobin measurementOrdere d By: ED PROVIDER on 10-24-2024 Hemoglobin (Bld) [Mass/Vol] 16.0 g/dL 13.0-16.5 [facility] Immature granulocytes/100 WB C Auto (Bld)Ordered By: ED PROVIDER on 10-24-2024 Immature granulocytes/100 WBC (Bld) 0.700 % 0.0-0.9 [facility] Ketones Test strip Ql (U)Ord ered By: Austin Hannon on 10-24-2024 Ketones Ql (U) 150 mg/dl Abnormal Negative [facility] MCV (mean corpuscular volume ) determinationOrdered By: ED PROVIDER on 10-24-2024 MCV (RBC) [Entitic vol] 89.6 fL 80-94 [facility] Mean corpuscular hemoglobin (MCH) determinationOrdered By: ED PROVIDER on 10-24-2024 MCH (RBC) [Entitic mass] 30.7 pg 27.0-32.0 [facility] Monocyte percentageOrdered B y: ED PROVIDER on 10-24-2024 Monocytes/100 WBC (Bld) 4.6 % 0-10 [facility] Mucus LM Ql (Urine sed)Order ed By: Austin Hannon on 10-24-2024 Mucus Ql (Urine sed) 0 SEEN /hpf [facility] Neutrophil percentageOrdered By: ED PROVIDER on 10-24-2024 Neutrophils/100 WBC (Bld) 91.3 % High 47-70 [facility] Nitrite Test strip Ql (U)Ord ered By: Austin Hannon on 10-24-2024 Nitrite Ql (U) Positive High Negative [facility] No Panel InformationOrdered By: Austin Hannon on 10-24-2024 AMBROSIO [facility] Not entered [facility] Room Air [facility] Platelet countOrdered By: ED PROVIDER on 10-24-2024 Platelets (Bld) [#/Vol] 303 10*3/uL 150-450 [facility] Platelet estimateOrdered By: Austin Hannon on 10-24-2024 Platelets LM Ql (Bld) A ADEQ [facility] Potassium measurement (mass/ volume)Ordered By: Austin Hannon on 10-24-2024 Potassium (Unsp spec) [Mass/Vol] 2.9 mmol/L Low 3.3-5.1 [facility] Protein Test strip Ql (U)Ord ered By: Austin Hannon on 10-24-2024 Protein Ql (U) 100 mg/dl High Negative [facility] Prothrombin timeOrdered By: Austin Hannon on 10-24-2024 PT Coag (PPP) [Time] 12.8 s 11.7-14.9 [facility] RBC Auto (Bld) [#/Vol]Ordere d By: ED PROVIDER on 10-24-2024 RBC (Bld) [#/Vol] 5.21 10*6/uL 4.6-6.2 [facility] [facility] Serum creatinine measurement (mass/volume)Ordered By: Austin Hannon on 10-24-2024 Creatinine [Mass/Vol] 1.28 mg/dL High 0.70-1.20 [facility] Serum glucose measurement (m ass/volume)Ordered By: Austin Hannon on 10-24-2024 Glucose [Mass/Vol] 356 mg/dL High 70-99 [facility] Serum or plasma calcium jessica urement (mass/volume)Ordered By: Austin Hannon on 10-24-2024 Calcium [Mass/Vol] 8.8 mg/dL 7.6-11.0 [facility] Serum or plasma urea nitroge n measurement (mass/volume)Ordered By: Austin Hannon on 10-24-2024 Urea nitrogen [Mass/Vol] 43 mg/dL High 4-19 [facility] Sodium levelOrdered By: Darrick Hannon on 10-24-2024 Sodium [Moles/Vol] 134 mmol/L 133-145 [facility] Squamous epithelial cells de tection in urine sediment by light microscopyOrdered By: Austin Hannon on 10-24-2024 Epithelial cells.squamous LM Ql (Urine sed) 0 SEEN /hpf 0-5 [facility] Troponin T.cardiac [Mass/vol ume] in Serum or Plasma by High sensitivity methodOrdered By: Austin Hannon on 10-24-2024 Troponin T.cardiac High sensitivity method [Mass/Vol] 22 ng/L <22 [facility] Troponin T.cardiac High sensitivity method [Mass/Vol] 17 ng/L <22 [facility] Urine clarityOrdered By: Kevin Hannon on 10-24-2024 Clarity (U) Clear Clear [facility] Urine color determinationOrd ered By: Austin Hannon on 10-24-2024 Color (U) Yellow Yellow [facility] Urine glucose detectionOrder ed By: Austin Hannon on 10-24-2024 Glucose Ql (U) 1000 mg/dl High Normal [facility] Urine leukocyte esterase det ection by dipstickOrdered By: Austin Hannon on 10-24-2024 Leukocyte esterase Test strip Ql (U) Negative Negative [facility] Urine pHOrdered By: Austin mondragon on 10-24-2024 pH (U) 6.0 [pH] 5.0 - 8.0 [facility] Urine sediment bacteria coun t by microscopy (number/high power field)Ordered By: Austin Hannon on 10-24-2024 Bacteria LM.HPF (Urine sed) [#/Area] 0 /[HPF] None Seen [facility] Urine specific gravity measu rementOrdered By: Austin Hannon on 10-24-2024 Specific gravity (U) [Rel density] 1.030 1.002-1.030 [facility] Urine urobilinogen measureme ntOrdered By: Austin Hannon on 10-24-2024 Urobilinogen Ql (U) Normal mg/dl Normal [facility] Venous blood base excess adrian surementOrdered By: Austin Hannon on 10-24-2024 Base excess Calc (BldV) [Moles/Vol] -5 mmol/L Low -1.0-3.5 [facility] Venous blood bicarbonate adrian surementOrdered By: Austin Hannon on 10-24-2024 HCO3 (Bld) [Moles/Vol] 18 mmol/L Low 22-26 [facility] Venous blood pH measurementO rdered By: Austin Hannon on 10-24-2024 pH (BldV) 7.50 [pH] High 7.32-7.42 [facility] Venous blood partial pressur e of carbon dioxide measurementOrdered By: Austin Hannon on 10-24-2024 CO2 (BldV) [Partial pressure] 23.4 mm[Hg] Low 41-51 [facility] Venous blood partial pressur e of oxygen measurementOrdered By: Austin Hannon on 10-24-2024 Oxygen (BldV) [Partial pressure] 65 mm[Hg] High 25-40 [facility] White blood cell (WBC) count Ordered By: ED PROVIDER on 10-24-2024 WBC (Bld) [#/Vol] 25.2 10*3/uL High 4.4-11.0 [facility] White blood cell countOrdere d By: Austin Hannon on 10-24-2024 White blood cell count 0 SEEN /hpf 0-5 [facility] Office Visiton 09-15-2024 Follow-up visit [id number] Abraham Bush 1955 M Date Provider Department Center 09/[facility]20[id number] Family History Problem Relation Age of Onset High Blood Pressure Mother Cancer Father Family Status - Relation Status Age at Mother Alive Father Daughter Alive Daughter Alive Level of Service:14298 [place] OFFICE/OUTPATIENT ESTABLISHED MOD MDM 30 MIN Reason for Visit and Comments: Transitional Care Management Outreach [09296] Hospital Follow-up [832] - [facility] 08/10-08/26/24 [facility] Progress Noteon 09-15-2024 Progress Note Controlled, continue levothyroxine 125 mcg daily Normal [facility] Progress Note Controlled, continue rosuvastatin 40 mg daily Normal [facility] Progress Note Control is variable, he is currently on Semglee 16 units nightly and insulin lispro 14 to 18 units with meals sliding scale. Follow-up with endocrinology as scheduled. Normal [facility] Progress Note Currently stable he would like a refill on his Zofran Normal [facility] Progress Note 09/15/2024 Abraham Bush (: 1955) is a 68 y.o. male , Established patient, here for evaluation of the following chief complaint(s): Transitional Care Management Outreach and Hospital Follow-up ([facility] 08/10-08/26/24) ASSESSMENT/PLAN: 1. 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 He has no complaints today says he [...] signature was used to authenticate this note. Tod Lr MD 09/15/2024 11:[address] [facility] Progress Note Patient verified by last name and date of . [facility] 36on 09-14-2024 36 Message released to patient as written. yes Patient's further questions if applicable: The patient called back about previsit planning the office is closed. The patient will arrive a few minutes early to answer any questions. Were all questions from office addressed or relayed to the patient from encounter: Yes Normal [facility] 36 lm to pre-visit plan for appointment with Dr Lr on 09/14/24 10am. Please ask patient to arrive 15 minutes early with Photo ID, insurance card Fasting: no Normal [facility] Absolute lymphocyte countOrd ered By: Ramana Huntley on 08-28-2024 Lymphocytes Auto (Unsp spec) [#/Vol] 1.23 10*3/uL 0.83-4.51 [facility] Automated lymphocyte count a s percentage of total leukocytesOrdered By: Ramana Huntley on 08-28-2024 Lymphocytes/100 WBC Auto (Unsp spec) 15.1 % Low 19-41 [facility] Basophil percentageOrdered B y: Ramana Huntley on 08-28-2024 Basophils/100 WBC (Bld) 1.2 % High 0-1 [facility] CBC W/Diff, AutomatedOrdered By: Ramana Huntley on 08-28-2024 Platelets (Bld) [#/Vol] 202 10*3/uL 150-450 [facility] Comment on above: Performed By: #### L 100.0100 ####[facility] [address] [place], [address] Emergency Department Summary on 08-28-2024 Emergency Department Summary Normal [facility] Eosinophil percentageOrdered By: Rockland Yuko on 08-28-2024 Eosinophils/100 WBC (Bld) 1.8 % 0-5 [facility] Erythrocyte distribution wid th ratioOrdered By: [facility] on 08-28-2024 Erythrocyte distribution width (RBC) [Ratio] 15.2 % High 11.6-14.6 [facility] Erythrocyte distribution wid th standard deviationOrdered By: [facility] Hunt[facility] on 08-28-2024 Erythrocyte distribution width (RBC) [Ratio] 49.9 fl High 35.1-43.9 [facility] Hematocrit Auto (Bld) [Volum e fraction]Ordered By: [facility] on 08-28-2024 Hematocrit (Bld) [Volume fraction] 25.5 % Low 40-54 [facility] Hemoglobin measurementOrdere d By: Ramana Huntley on 08-28-2024 Hemoglobin (Bld) [Mass/Vol] 8.3 g/dL Low 13.0-16.5 [facility] Immature granulocytes/100 WB C Auto (Bld)Ordered By: Ramana Huntley on 08-28-2024 Immature granulocytes/100 WBC (Bld) 0.700 % 0.0-0.9 [facility] MCV (mean corpuscular volume ) determinationOrdered By: Ramana Huntley on 08-28-2024 MCV (RBC) [Entitic vol] 95.1 fL High 80-94 [facility] Mean corpuscular hemoglobin (MCH) determinationOrdered By: Ramana Huntley on 08-28-2024 MCH (RBC) [Entitic mass] 31.0 pg 27.0-32.0 [facility] Monocyte percentageOrdered B y: Ramana Huntley on 08-28-2024 Monocytes/100 WBC (Bld) 7.3 % 0-10 [facility] Neutrophil percentageOrdered By: Ramana Huntley on 08-28-2024 Neutrophils/100 WBC (Bld) 73.9 % High 47-70 [facility] RBC Auto (Bld) [#/Vol]Ordere d By: Ramana Huntley on 08-28-2024 RBC (Bld) [#/Vol] 2.68 10*6/uL Low 4.6-6.2 [facility] White blood cell (WBC) count Ordered By: Ramana Huntley on 08-28-2024 WBC (Bld) [#/Vol] 8.2 10*3/uL 4.4-11.0 [facility] CBC W/Diff, Automatedon Absolute Neut Normal 2.0-7.7 [facility] Comment on above: Result Comment: Canc elled via OM: Order cancelled - Patient discharged Performed By: #### L 100.0100, L500.3400 ####[facility] [address] [place], [address] HCT Normal 40-54 [facility] Comment on above: Result Comment: Canc elled via OM: Order cancelled - Patient discharged Performed By: #### L 100.0100, L500.3400 ####[facility] [address] [place], [address] HGB Normal 13.0-16.5 [facility] Comment on above: Result Comment: Canc elled via OM: Order cancelled - Patient discharged Performed By: #### L 100.0100, L500.3400 ####[facility] [address] [place], [address] MCH Normal 27.0-32.0 [facility] Comment on above: Result Comment: Canc elled via OM: Order cancelled - Patient discharged Performed By: #### L 100.0100, L500.3400 ####[facility] [address] [place], [address] MCHC Normal 32-36 [facility] Comment on above: Result Comment: Canc elled via OM: Order cancelled - Patient discharged Performed By: #### L 100.0100, L500.3400 ####[facility] [address] [place], [address] MCV Normal 80-94 [facility] Comment on above: Result Comment: Canc elled via OM: Order cancelled - Patient discharged Performed By: #### L 100.0100, L500.3400 ####[facility] [address] [place], [address] NEUT% Normal 47-70 [facility] Comment on above: Result Comment: Canc elled via OM: Order cancelled - Patient discharged Performed By: #### L 100.0100, L500.3400 ####[facility] [address] [place], [address] PLT Normal 150-450 [facility] Comment on above: Result Comment: Canc elled via OM: Order cancelled - Patient discharged Performed By: #### L 100.0100, L500.3400 ####[facility] [address] [place], [address] RBC Normal 4.6-6.2 [facility] Comment on above: Result Comment: Canc elled via OM: Order cancelled - Patient discharged Performed By: #### L 100.0100, L500.3400 ####[facility] [address] [place], [address] RDW CV Normal 11.6-14.6 [facility] Comment on above: Result Comment: Canc elled via OM: Order cancelled - Patient discharged Performed By: #### L 100.0100, L500.3400 ####[facility] [address] [place], [address] RDW SD Normal 35.1-43.9 [facility] Comment on above: Result Comment: Canc elled via OM: Order cancelled - Patient discharged Performed By: #### L 100.0100, L500.3400 ####[facility] [address] [place], [address] WBC Normal 4.4-11.0 [facility] Comment on above: Result Comment: Canc elled via OM: Order cancelled - Patient discharged Performed By: #### L 100.0100, L500.3400 ####[facility] [address] [place], [address] Hepatitis Panel Acuteon 05-0 HCV Interpretat Comment Normal . [facility] Comment on above: Result Comment: Posi tive HCV antibody screen without the presence of HCVRNA is consistent with a resolved past infection or a falsepositive HCV antibody. Consider repeat testing after onemonth.Performed at: [facility] [address] [id number] Director: Dwaine Babin PhD, Phone: [phone] at: [facility] [address] [id number] Director: Dinesh Oliveira MD, Phone: [phone] Performed By: #### L 3000.0375 ####[facility] [address] [place], [address] HCV log 10 TNP Normal . [facility] Comment on above: Performed By: #### L 3000.0375 ####[facility] [address] [place], [address] HEP B CORE,IgM Negative Normal Negative [facility] Comment on above: Performed By: #### L 3000.0375 ####[facility] [address] [place], [address] HEP B SURF AG Negative Normal Negative [facility] Comment on above: Performed By: #### L 3000.0375 ####[facility] [address] [place], [address] Hep C Quant Not detected Normal . [facility] Comment on above: Performed By: #### L 3000.0375 ####[facility] [address] [place], [address] HEP C VIRUS AB Reactive Abnormal Non Reactive [facility] Comment on above: Performed By: #### L 3000.0375 ####[facility] [address] [place], [address] HEPATITIS A-IgM Negative Normal Negative [facility] Comment on above: Result Comment: A ne gative anti-HAV IgM result suggests no recent orcurrent HAV infection. Performed By: #### L 3000.0375 ####[facility] [address] [place], [address] Test Informatio Comment Normal . [facility] Comment on above: Result Comment: The quantitative range of this assay is 15 IU/mL to 100million IU/mL. Performed By: #### L 3000.0375 ####[facility] [address] [place], [address] Liver Profileon 08-27-2024 ALB Normal 3.4-4.8 [facility] Comment on above: Result Comment: Canc elled via OM: Order cancelled - Patient discharged Performed By: #### L 100.0100, L500.3400 ####[facility] [address] [place], [address] ALK PHOS Normal 40-129 [facility] Comment on above: Result Comment: Canc elled via OM: Order cancelled - Patient discharged Performed By: #### L 100.0100, L500.3400 ####[facility] [address] [place], [address] ALT Normal <=46 [facility] Comment on above: Result Comment: Canc elled via OM: Order cancelled - Patient discharged Performed By: #### L 100.0100, L500.3400 ####[facility] [address] [place], [address] AST Normal <=37 [facility] Comment on above: Result Comment: Canc elled via OM: Order cancelled - Patient discharged Performed By: #### L 100.0100, L500.3400 ####[facility] [address] [place], [address] D BILI Normal 0.00-0.30 [facility] Comment on above: Result Comment: Canc elled via OM: Order cancelled - Patient discharged Performed By: #### L 100.0100, L500.3400 ####[facility] [address] [place], [address] T BILI Normal 0.00-1.30 [facility] Comment on above: Result Comment: Canc elled via OM: Order cancelled - Patient discharged Performed By: #### L 100.0100, L500.3400 ####[facility] [address] [place], [address] T PROT Normal 5.9-8.4 [facility] Comment on above: Result Comment: Canc elled via OM: Order cancelled - Patient discharged Performed By: #### L 100.0100, L500.3400 ####[facility] [address] [place], [address] Absolute lymphocyte countOrd ered By: Miki Glover on 08-26-2024 Lymphocytes Auto (Unsp spec) [#/Vol] 1.58 10*3/uL 0.83-4.51 [facility] Activated partial thrombopla stin time (aPTT) in platelet poor plasma by coagulation aOrdered By: Cm Nicholson on 08-26-2024 aPTT Coag (PPP) [Time] 33.4 s 24.1-36.2 [facility] Anion gap in Serum or Plasma Ordered By: Miki Glover on 08-26-2024 Anion gap [Moles/Vol] 14 mmol/L 5-15 [facility] Automated lymphocyte count a s percentage of total leukocytesOrdered By: Miki Glover on 08-26-2024 Lymphocytes/100 WBC Auto (Unsp spec) 15.3 % Low 19-41 [facility] BUN/creatinine ratioOrdered By: Miki Glover on 08-26-2024 Urea nitrogen/Creatinine [Mass ratio] 6.6 mg/mg Low 10-20 [facility] Basic Metabolic Profile (BMP )on 08-26-2024 BUN/CRE 6.6 RATIO Low 10-20 [facility] Comment on above: Performed By: #### L 100.0100, L500.3400, L500.2500 ####[facility] [address] [place], [address] Calcium [Mass/Vol] 8.0 mg/dL Normal 7.6-11.0 [facility] Comment on above: Performed By: #### L 100.0100, L500.3400, L500.2500 ####[facility] [address] [place], [address] Chloride [Moles/Vol] 103 mmol/L Normal 98-108 [facility] Comment on above: Performed By: #### L 100.0100, L500.3400, L500.2500 ####[facility] [address] [place], [address] CO2 [Moles/Vol] 19.5 mmol/L Low 21.0-32.0 [facility] Comment on above: Performed By: #### L 100.0100, L500.3400, L500.2500 ####[facility] [address] [place], [address] Creatinine [Mass/Vol] 5.67 mg/dL High 0.70-1.20 [facility] Comment on above: Performed By: #### L 100.0100, L500.3400, L500.2500 ####[facility] [address] [place], [address] ECRCL 13.88 ml/min Low 50-250 [facility] Comment on above: Performed By: #### L 100.0100, L500.3400, L500.2500 ####[facility] [address] [place], [address] GAP 14 Normal 5-15 [facility] Comment on above: Performed By: #### L 100.0100, L500.3400, L500.2500 ####[facility] [address] [place], [address] GFR/1.73 sq M.predicted among non-blacks MDRD (S/P/Bld) [Vol rate/Area] 10 mL/min/{1.73_m2} Low >60 [facility] Comment on above: Result Comment: mL/m in/1.73m2 CKD-EPI Creatinine Equation (2020) Performed By: #### L 100.0100, L500.3400, L500.2500 ####[facility] [address] [place], [address] Glucose [Mass/Vol] 60 mg/dL Low 70-99 [facility] Comment on above: Performed By: #### L 100.0100, L500.3400, L500.2500 ####[facility] [address] [place], [address] Potassium [Moles/Vol] 4.7 mmol/L Normal 3.3-5.1 [facility] Comment on above: Performed By: #### L 100.0100, L500.3400, L500.2500 ####[facility] [address] [place], [address] Sodium [Moles/Vol] 137 mmol/L Normal 133-145 [facility] Comment on above: Performed By: #### L 100.0100, L500.3400, L500.2500 ####[facility] [address] [place], [address] Urea nitrogen [Mass/Vol] 38 mg/dL High 4-19 [facility] Comment on above: Performed By: #### L 100.0100, L500.3400, L500.2500 ####[facility] [address] [place], [address] Basophil percentageOrdered B y: Miki Jamiegiselle on 08-26-2024 Basophils/100 WBC (Bld) 1.1 % High 0-1 [facility] Bedside Glucoseon 08-26-2024 FINGERSTICK GLU 79 mg/dL Normal 74-106 [facility] Comment on above: Result Comment: ANABELLE GEMENT OF PATIENT CARE PER NURSING PROTOCOL Performed By: #### L 501.080 ####[facility] [address] [place], [address] FINGERSTICK GLU 56 mg/dL Low 74-106 [facility] Comment on above: Result Comment: ANABELLE GEMENT OF PATIENT CARE PER NURSING PROTOCOL Performed By: #### L 501.080 ####[facility] [address] [place], [address] FINGERSTICK GLU 98 mg/dL Normal 74-106 [facility] Comment on above: Result Comment: ANABELLE BACH OF PATIENT CARE PER NURSING PROTOCOL Performed By: #### L 501.080 ####[facility] [address] [place], [address] Bilirubin directOrdered By: Miki Glover on 08-26-2024 Bilirubin.direct [Mass/Vol] 0.12 mg/dL 0.00-0.30 [facility] Bilirubin, totalOrdered By: Miki Glover on 08-26-2024 Bilirubin [Mass/Vol] 0.22 mg/dL 0.00-1.30 [facility] CBC W/Diff, Automatedon 07-30 Absolute Lymph 1.58 X10 3/uL Normal 0.83-4.51 [facility] Comment on above: Performed By: #### L 100.0100, L500.3400, L500.2500 ####[facility] [address] [place], [address] Absolute Neut 7.4 X10 3/uL Normal 2.0-7.7 [facility] Comment on above: Performed By: #### L 100.0100, L500.3400, L500.2500 ####[facility] [address] [place], [address] Basophils/100 WBC (Bld) 1.1 % High 0-1 [facility] Comment on above: Performed By: #### L 100.0100, L500.3400, L500.2500 ####[facility] [address] [place], [address] Eosinophils/100 WBC (Bld) 1.6 % Normal 0-5 [facility] Comment on above: Performed By: #### L 100.0100, L500.3400, L500.2500 ####[facility] [address] [place], [address] Erythrocyte distribution width (RBC) [Ratio] 14.8 % High 11.6-14.6 [facility] Comment on above: Performed By: #### L 100.0100, L500.3400, L500.2500 ####[facility] [address] [place], [address] Hematocrit (Bld) [Volume fraction] 25.7 % Low 40-54 [facility] Comment on above: Performed By: #### L 100.0100, L500.3400, L500.2500 ####[facility] [address] [place], [address] Hemoglobin (Bld) [Mass/Vol] 8.7 g/dL Low 13.0-16.5 [facility] Comment on above: Performed By: #### L 100.0100, L500.3400, L500.2500 ####[facility] [address] [place], [address] IG% 0.900 Normal 0.0-0.9 [facility] Comment on above: Result Comment: IG% - Immature Granulocytes (promyelocytes, myelocytes andmetamyelocytes) > 1% indicates that a LEFT SHIFT is Present. Performed By: #### L 100.0100, L500.3400, L500.2500 ####[facility] [address] [place], [address] Lymphocytes/100 WBC (Bld) 15.3 % Low 19-41 [facility] Comment on above: Performed By: #### L 100.0100, L500.3400, L500.2500 ####[facility] [address] [place], [address] MCH (RBC) [Entitic mass] 30.9 pg Normal 27.0-32.0 [facility] Comment on above: Performed By: #### L 100.0100, L500.3400, L500.2500 ####[facility] [address] [place], [address] MCHC (RBC) [Mass/Vol] 33.9 g/dL Normal 32-36 [facility] Comment on above: Performed By: #### L 100.0100, L500.3400, L500.2500 ####[facility] [address] [place], [address] MCV (RBC) [Entitic vol] 91.1 fL Normal 80-94 [facility] Comment on above: Performed By: #### L 100.0100, L500.3400, L500.2500 ####[facility] [address] [place], [address] Monocytes/100 WBC (Bld) 10.1 % High 0-10 [facility] Comment on above: Performed By: #### L 100.0100, L500.3400, L500.2500 ####[facility] [address] [place], [address] Neutrophils/100 WBC (Bld) 71.0 % High 47-70 [facility] Comment on above: Performed By: #### L 100.0100, L500.3400, L500.2500 ####[facility] [address] [place], [address] Nucleated RBC (Bld) [#/Vol] 0 10*3/uL Normal 0-5 [facility] Comment on above: Performed By: #### L 100.0100, L500.3400, L500.2500 ####[facility] [address] [place], [address] Platelet mean volume (Bld) [Entitic vol] 9.0 fL Normal 6.2-12.0 [facility] Comment on above: Performed By: #### L 100.0100, L500.3400, L500.2500 ####[facility] [address] [place], [address] Platelets (Bld) [#/Vol] 432 10*3/uL Normal 150-450 [facility] Comment on above: Performed By: #### L 100.0100, L500.3400, L500.2500 ####[facility] [address] [place], [address] RBC (Bld) [#/Vol] 2.82 10*6/uL Low 4.6-6.2 [facility] Comment on above: Performed By: #### L 100.0100, L500.3400, L500.2500 ####[facility] [address] [place], [address] RDW SD 46.7 fl High 35.1-43.9 [facility] Comment on above: Performed By: #### L 100.0100, L500.3400, L500.2500 ####[facility] [address] [place], [address] WBC (Bld) [#/Vol] 10.4 10*3/uL Normal 4.4-11.0 [facility] Comment on above: Performed By: #### L 100.0100, L500.3400, L500.2500 ####[facility] [address] [place], [address] CXR for Line Placementon CXR for Line Placement Normal [facility] Carbon dioxide, total [Moles /volume] in Central venous bloodOrdered By: Miki Glover on 08-26-2024 CO2 [Moles/Vol] 19.5 mmol/L Low 21.0-32.0 [facility] Chloride assayOrdered By: Tuan Glover on 08-26-2024 Chloride [Moles/Vol] 103 mmol/L 98-108 [facility] Eosinophil percentageOrdered By: Miki Glover on 08-26-2024 Eosinophils/100 WBC (Bld) 1.6 % 0-5 [facility] Erythrocyte distribution wid th ratioOrdered By: Miki Glover on 08-26-2024 Erythrocyte distribution width (RBC) [Ratio] 14.8 % High 11.6-14.6 [facility] Erythrocyte distribution wid th standard deviationOrdered By: Miki Glover on 08-26-2024 Erythrocyte distribution width (RBC) [Ratio] 46.7 fl High 35.1-43.9 [facility] Glomerular filtration rate ( GFR) estimation/1.73 sq m using serum, plasma, or whole bOrdered By: Miki Glover on 08-26-2024 GFR/1.73 sq M.predicted among non-blacks MDRD (S/P/Bld) [Vol rate/Area] 10 mL/min/{1.73_m2} Low >60 [facility] deOrdered By: Miki Glover on 08-26-2024 Glucose [Mass/Vol] 79 mg/dL 74-106 [facility] Hematocrit Auto (Bld) [Volum e fraction]Ordered By: Miki Glover on 08-26-2024 Hematocrit (Bld) [Volume fraction] 25.7 % Low 40-54 [facility] Hemoglobin measurementOrdere d By: Miki Glover on 08-26-2024 Hemoglobin (Bld) [Mass/Vol] 8.7 g/dL Low 13.0-16.5 [facility] Immature granulocytes/100 WB C Auto (Bld)Ordered By: Miki Glover on 08-26-2024 Immature granulocytes/100 WBC (Bld) 0.900 % 0.0-0.9 [facility] Liver Profileon 08-26-2024 Albumin [Mass/Vol] 2.9 g/dL Low 3.4-4.8 [facility] Comment on above: Performed By: #### L 100.0100, L500.3400, L500.2500 ####[facility] [address] [place], [address] ALK PHOS 93 U/L Normal 40-129 [facility] Comment on above: Performed By: #### L 100.0100, L500.3400, L500.2500 ####[facility] [address] [place], [address] ALT [Catalytic activity/Vol] 27 U/L Normal <=46 [facility] Comment on above: Performed By: #### L 100.0100, L500.3400, L500.2500 ####[facility] [address] [place], [address] AST [Catalytic activity/Vol] 39 U/L High <=37 [facility] Comment on above: Performed By: #### L 100.0100, L500.3400, L500.2500 ####[facility] [address] [place], [address] Bilirubin [Mass/Vol] 0.22 mg/dL Normal 0.00-1.30 [facility] Comment on above: Performed By: #### L 100.0100, L500.3400, L500.2500 ####[facility] [address] [place], [address] Bilirubin.direct [Mass/Vol] 0.12 mg/dL Normal 0.00-0.30 [facility] Comment on above: Performed By: #### L 100.0100, L500.3400, L500.2500 ####[facility] [address] [place], [address] Globulin (S) [Mass/Vol] 3.0 g/dL Normal 2.2-4.2 [facility] Comment on above: Performed By: #### L 100.0100, L500.3400, L500.2500 ####[facility] [address] [place], [address] T PROT 5.9 g/dL Normal 5.9-8.4 [facility] Comment on above: Performed By: #### L 100.0100, L500.3400, L500.2500 ####[facility] [address] [place], [address] MCV (mean corpuscular volume ) determinationOrdered By: Miki Glover on 08-26-2024 MCV (RBC) [Entitic vol] 91.1 fL 80-94 [facility] MR/POSTOP.ANEon 08-26-2024 MR/POSTOP.ANE Normal [facility] MR/VQJINWEV1em 08-26-2024 MR/POSTOPAN2 Normal [facility] Mean corpuscular hemoglobin (MCH) determinationOrdered By: Miki Glover on 08-26-2024 MCH (RBC) [Entitic mass] 30.9 pg 27.0-32.0 [facility] Monocyte percentageOrdered B y: Miki Glover on 08-26-2024 Monocytes/100 WBC (Bld) 10.1 % High 0-10 [facility] Neutrophil percentageOrdered By: Miki Glover on 08-26-2024 Neutrophils/100 WBC (Bld) 71.0 % High 47-70 [facility] No Panel InformationOrdered By: Miki Glover on 08-26-2024 39 U/L High <38 [facility] Operative Reporton Operative Report Normal [facility] Partial Thromboplast Timeon 08-26-2024 aPTT Coag (Bld) [Time] 33.4 s Normal 24.1-36.2 [facility] Comment on above: Performed By: #### L 300.3900, L300.4310 ####[facility] [address] [place], [place], [id number] Platelet countOrdered By: Tuan Glover on 08-26-2024 Platelets (Bld) [#/Vol] 432 10*3/uL 150-450 [facility] Potassium measurement (mass/ volume)Ordered By: Miki Glover on 08-26-2024 Potassium (Unsp spec) [Mass/Vol] 4.7 mmol/L 3.3-5.1 [facility] Prothrombin Time w/INRon INR Coag (PPP) [Relative time] 0.9 {INR} Normal [facility] Comment on above: Performed By: #### L 300.3900, L300.4310 ####[facility] [address] [place], [place], [id number] Prothrombin Time w/INROrdere d By: Cm Nicholson on 08-26-2024 PT Coag (PPP) [Time] 12.5 s 11.7-14.9 [facility] Comment on above: Performed By: #### L 300.3900, L300.4310 ####[facility] [address] [place], [place], [id number] RBC Auto (Bld) [#/Vol]Ordere d By: Miki Glover on 08-26-2024 RBC (Bld) [#/Vol] 2.82 10*6/uL Low 4.6-6.2 [facility] Serum creatinine measurement (mass/volume)Ordered By: Miki Glover on 08-26-2024 Creatinine [Mass/Vol] 5.67 mg/dL High 0.70-1.20 [facility] Serum globulin measurementOr dered By: Miki Glover on 08-26-2024 Globulin (S) [Mass/Vol] 3.0 g/dL 2.2-4.2 [facility] Serum glucose measurement (m ass/volume)Ordered By: Miki Glover on 08-26-2024 Glucose [Mass/Vol] 60 mg/dL Low 70-99 [facility] Serum or plasma alanine jacobs otransferase (ALT) measurementOrdered By: Miki Glover on 08-26-2024 ALT [Catalytic activity/Vol] 27 U/L <47 [facility] Serum or plasma albumin jessica urement (mass/volume)Ordered By: Miki Glover on 08-26-2024 Albumin [Mass/Vol] 2.9 g/dL Low 3.4-4.8 [facility] Serum or plasma alkaline juan sphatase measurementOrdered By: Miki Glover on 08-26-2024 ALP [Catalytic activity/Vol] 93 U/L 40-129 [facility] Serum or plasma calcium jessica urement (mass/volume)Ordered By: Miki Glover on 08-26-2024 Calcium [Mass/Vol] 8.0 mg/dL 7.6-11.0 [facility] Serum or plasma urea nitroge n measurement (mass/volume)Ordered By: Miki Glover on 08-26-2024 Urea nitrogen [Mass/Vol] 38 mg/dL High 4-19 [facility] Sodium levelOrdered By: Jordon Glover on 08-26-2024 Sodium [Moles/Vol] 137 mmol/L 133-145 [facility] Total proteinOrdered By: Malcom Glover on 08-26-2024 Protein [Mass/Vol] 5.9 g/dL 5.9-8.4 [facility] White blood cell (WBC) count Ordered By: Miki Glover on 08-26-2024 WBC (Bld) [#/Vol] 10.4 10*3/uL 4.4-11.0 [facility] Basic Metabolic Profile (BMP )on 08-25-2024 BUN/CRE 5.9 RATIO Low 10-20 [facility] Comment on above: Performed By: #### L 100.0100, L501.5200, L500.2500, L501.2300, L500.3400 ####[facility] [address] [place], [address] Calcium [Mass/Vol] 8.2 mg/dL Normal 7.6-11.0 [facility] Comment on above: Performed By: #### L 100.0100, L501.5200, L500.2500, L501.2300, L500.3400 ####[facility] [address] [place], [address] Chloride [Moles/Vol] 102 mmol/L Normal 98-108 [facility] Comment on above: Performed By: #### L 100.0100, L501.5200, L500.2500, L501.2300, L500.3400 ####[facility] [address] [place], [address] CO2 [Moles/Vol] 23.1 mmol/L Normal 21.0-32.0 [facility] Comment on above: Performed By: #### L 100.0100, L501.5200, L500.2500, L501.2300, L500.3400 ####[facility] [address] [place], [address] Creatinine [Mass/Vol] 4.65 mg/dL High 0.70-1.20 [facility] Comment on above: Performed By: #### L 100.0100, L501.5200, L500.2500, L501.2300, L500.3400 ####[facility] [address] [place], [address] ECRCL 16.92 ml/min Low 50-250 [facility] Comment on above: Performed By: #### L 100.0100, L501.5200, L500.2500, L501.2300, L500.3400 ####[facility] [address] [place], [address] GAP 11 Normal 5-15 [facility] Comment on above: Performed By: #### L 100.0100, L501.5200, L500.2500, L501.2300, L500.3400 ####[facility] [address] [place], [address] GFR/1.73 sq M.predicted among non-blacks MDRD (S/P/Bld) [Vol rate/Area] 13 mL/min/{1.73_m2} Low >60 [facility] Comment on above: Result Comment: mL/m in/1.73m2 CKD-EPI Creatinine Equation (2020) Performed By: #### L 100.0100, L501.5200, L500.2500, L501.2300, L500.3400 ####[facility] [address] [place], [address] Glucose [Mass/Vol] 63 mg/dL Low 70-99 [facility] Comment on above: Performed By: #### L 100.0100, L501.5200, L500.2500, L501.2300, L500.3400 ####[facility] [address] [place], [address] Potassium [Moles/Vol] 4.7 mmol/L Normal 3.3-5.1 [facility] Comment on above: Performed By: #### L 100.0100, L501.5200, L500.2500, L501.2300, L500.3400 ####[facility] [address] [place], [address] Sodium [Moles/Vol] 136 mmol/L Normal 133-145 [facility] Comment on above: Performed By: #### L 100.0100, L501.5200, L500.2500, L501.2300, L500.3400 ####[facility] [address] [place], [address] Urea nitrogen [Mass/Vol] 27 mg/dL High 4-19 [facility] Comment on above: Performed By: #### L 100.0100, L501.5200, L500.2500, L501.2300, L500.3400 ####[facility] [address] [place], [address] Bedside Glucoseon 08-25-2024 FINGERSTICK GLU 153 mg/dL High 74-106 [facility] Comment on above: Result Comment: ANABELLE GEMENT OF PATIENT CARE PER NURSING PROTOCOL Performed By: #### L 501.080 ####[facility] [address] [place], [address] FINGERSTICK GLU 112 mg/dL High 74-106 [facility] Comment on above: Result Comment: ANABELLE GEMENT OF PATIENT CARE PER NURSING PROTOCOL Performed By: #### L 501.080 ####[facility] [address] [place], [address] FINGERSTICK GLU 171 mg/dL High 74-106 [facility] Comment on above: Result Comment: ANABELLE GEMENT OF PATIENT CARE PER NURSING PROTOCOL Performed By: #### L 501.080 ####[facility] [address] [place], [address] FINGERSTICK GLU 132 mg/dL High 74-106 [facility] Comment on above: Result Comment: ANABELLE GEMENT OF PATIENT CARE PER NURSING PROTOCOL Performed By: #### L 501.080 ####[facility] [address] [place], [address] FINGERSTICK GLU 55 mg/dL Low 74-106 [facility] Comment on above: Result Comment: ANABELLE GEMENT OF PATIENT CARE PER NURSING PROTOCOL Performed By: #### L 501.080 ####[facility] [address] [place], [address] FINGERSTICK GLU 310 mg/dL High 74-106 [facility] Comment on above: Result Comment: ANABELLE GEMENT OF PATIENT CARE PER NURSING PROTOCOL Performed By: #### L 501.080 ####[facility] [address] [place], [address] CBC W/Diff, Automatedon 04-2 Absolute Lymph 1.30 X10 3/uL Normal 0.83-4.51 [facility] Comment on above: Performed By: #### L 100.0100, L501.5200, L500.2500, L501.2300, L500.3400 ####[facility] [address] [place], [address] Absolute Neut 7.9 X10 3/uL High 2.0-7.7 [facility] Comment on above: Performed By: #### L 100.0100, L501.5200, L500.2500, L501.2300, L500.3400 ####[facility] [address] [place], [address] Basophils/100 WBC (Bld) 1.0 % Normal 0-1 [facility] Comment on above: Performed By: #### L 100.0100, L501.5200, L500.2500, L501.2300, L500.3400 ####[facility] [address] [place], [address] Eosinophils/100 WBC (Bld) 1.6 % Normal 0-5 [facility] Comment on above: Performed By: #### L 100.0100, L501.5200, L500.2500, L501.2300, L500.3400 ####[facility] [address] [place], [address] Erythrocyte distribution width (RBC) [Ratio] 14.7 % High 11.6-14.6 [facility] Comment on above: Performed By: #### L 100.0100, L501.5200, L500.2500, L501.2300, L500.3400 ####[facility] [address] [place], [address] Hematocrit (Bld) [Volume fraction] 26.2 % Low 40-54 [facility] Comment on above: Performed By: #### L 100.0100, L501.5200, L500.2500, L501.2300, L500.3400 ####[facility] [address] [place], [address] Hemoglobin (Bld) [Mass/Vol] 8.7 g/dL Low 13.0-16.5 [facility] Comment on above: Performed By: #### L 100.0100, L501.5200, L500.2500, L501.2300, L500.3400 ####[facility] [address] [place], [address] IG% 0.900 Normal 0.0-0.9 [facility] Comment on above: Result Comment: IG% - Immature Granulocytes (promyelocytes, myelocytes andmetamyelocytes) > 1% indicates that a LEFT SHIFT is Present. Performed By: #### L 100.0100, L501.5200, L500.2500, L501.2300, L500.3400 ####[facility] [address] [place], [address] Lymphocytes/100 WBC (Bld) 12.3 % Low 19-41 [facility] Comment on above: Performed By: #### L 100.0100, L501.5200, L500.2500, L501.2300, L500.3400 ####[facility] [address] [place], [address] MCH (RBC) [Entitic mass] 30.5 pg Normal 27.0-32.0 [facility] Comment on above: Performed By: #### L 100.0100, L501.5200, L500.2500, L501.2300, L500.3400 ####[facility] [address] [place], [address] MCHC (RBC) [Mass/Vol] 33.2 g/dL Normal 32-36 [facility] Comment on above: Performed By: #### L 100.0100, L501.5200, L500.2500, L501.2300, L500.3400 ####[facility] [address] [place], [address] MCV (RBC) [Entitic vol] 91.9 fL Normal 80-94 [facility] Comment on above: Performed By: #### L 100.0100, L501.5200, L500.2500, L501.2300, L500.3400 ####[facility] [address] [place], [address] Monocytes/100 WBC (Bld) 9.6 % Normal 0-10 [facility] Comment on above: Performed By: #### L 100.0100, L501.5200, L500.2500, L501.2300, L500.3400 ####[facility] [address] [place], [address] Neutrophils/100 WBC (Bld) 74.6 % High 47-70 [facility] Comment on above: Performed By: #### L 100.0100, L501.5200, L500.2500, L501.2300, L500.3400 ####[facility] [address] [place], [address] Nucleated RBC (Bld) [#/Vol] 0 10*3/uL Normal 0-5 [facility] Comment on above: Performed By: #### L 100.0100, L501.5200, L500.2500, L501.2300, L500.3400 ####[facility] [address] [place], [address] Platelet mean volume (Bld) [Entitic vol] 9.2 fL Normal 6.2-12.0 [facility] Comment on above: Performed By: #### L 100.0100, L501.5200, L500.2500, L501.2300, L500.3400 ####[facility] [address] [place], [address] Platelets (Bld) [#/Vol] 421 10*3/uL Normal 150-450 [facility] Comment on above: Performed By: #### L 100.0100, L501.5200, L500.2500, L501.2300, L500.3400 ####[facility] [address] [place], [address] RBC (Bld) [#/Vol] 2.85 10*6/uL Low 4.6-6.2 [facility] Comment on above: Performed By: #### L 100.0100, L501.5200, L500.2500, L501.2300, L500.3400 ####[facility] [address] [place], [address] RDW SD 46.8 fl High 35.1-43.9 [facility] Comment on above: Performed By: #### L 100.0100, L501.5200, L500.2500, L501.2300, L500.3400 ####[facility] [address] [place], [address] WBC (Bld) [#/Vol] 10.6 10*3/uL Normal 4.4-11.0 [facility] Comment on above: Performed By: #### L 100.0100, L501.5200, L500.2500, L501.2300, L500.3400 ####[facility] [address] [place], [address] Consultation - Surgicalon Consultation - Surgical Normal [facility] Liver Profileon 08-25-2024 Albumin [Mass/Vol] 3.1 g/dL Low 3.4-4.8 [facility] Comment on above: Performed By: #### L 100.0100, L501.5200, L500.2500, L501.2300, L500.3400 ####[facility] [address] [place], [address] ALK PHOS 100 U/L Normal 40-129 [facility] Comment on above: Performed By: #### L 100.0100, L501.5200, L500.2500, L501.2300, L500.3400 ####[facility] [address] [place], [address] ALT [Catalytic activity/Vol] 30 U/L Normal <=46 [facility] Comment on above: Performed By: #### L 100.0100, L501.5200, L500.2500, L501.2300, L500.3400 ####[facility] [address] [place], [address] AST [Catalytic activity/Vol] 41 U/L High <=37 [facility] Comment on above: Performed By: #### L 100.0100, L501.5200, L500.2500, L501.2300, L500.3400 ####[facility] [address] [place], [address] Bilirubin [Mass/Vol] 0.29 mg/dL Normal 0.00-1.30 [facility] Comment on above: Performed By: #### L 100.0100, L501.5200, L500.2500, L501.2300, L500.3400 ####[facility] [address] [place], [address] Bilirubin.direct [Mass/Vol] 0.17 mg/dL Normal 0.00-0.30 [facility] Comment on above: Performed By: #### L 100.0100, L501.5200, L500.2500, L501.2300, L500.3400 ####[facility] [address] [place], [address] Globulin (S) [Mass/Vol] 2.8 g/dL Normal 2.2-4.2 [facility] Comment on above: Performed By: #### L 100.0100, L501.5200, L500.2500, L501.2300, L500.3400 ####[facility] [address] [place], [address] T PROT 5.8 g/dL Low 5.9-8.4 [facility] Comment on above: Performed By: #### L 100.0100, L501.5200, L500.2500, L501.2300, L500.3400 ####[facility] [address] [place], [address] Magnesiumon 08-25-2024 Magnesium [Mass/Vol] 1.9 mg/dL Normal 1.5-2.2 [facility] Comment on above: Performed By: #### L 100.0100, L501.5200, L500.2500, L501.2300, L500.3400 ####[facility] [address] [place], [address] Magnesium measurement (mass/ volume)Ordered By: Miki Glover on 08-25-2024 Magnesium (Unsp spec) [Mass/Vol] 1.9 mg/dL 1.5-2.2 [facility] No Panel InformationOrdered By: Miki Glover on 08-25-2024 TNP [facility] Comment . [facility] Phosphoruson 08-25-2024 Phosphate [Mass/Vol] 4.9 mg/dL High 2.7-4.5 [facility] Comment on above: Performed By: #### L 100.0100, L501.5200, L500.2500, L501.2300, L500.3400 ####[facility] [address] [place], [address] Serum or plasma hepatitis B virus surface antigen detection by immunoassayOrdered By: Miki Glover on 08-25-2024 HBV surface Ag IA Ql Negative Negative [facility] BRCon 08-24-2024 RC Normal [facility] Comment on above: Result Comment: [id number] ON RC TRANSFUSED 08/24/24 [id number] ON RC TRANSFUSED 08/24/24 1726 Performed By: #### B , BANNER ####[facility] [address] [place], [address] Basic Metabolic Profile (BMP )on 08-24-2024 BUN/CRE 5.1 RATIO Low 10-20 [facility] Comment on above: Performed By: #### L 500.2500, L100.0100 ####[facility] [address] [place], [address] Calcium [Mass/Vol] 8.2 mg/dL Normal 7.6-11.0 [facility] Comment on above: Performed By: #### L 500.2500, L100.0100 ####[facility] [address] [place], [address] Chloride [Moles/Vol] 101 mmol/L Normal 98-108 [facility] Comment on above: Performed By: #### L 500.2500, L100.0100 ####[facility] [address] [place], [address] CO2 [Moles/Vol] 14.1 mmol/L Low 21.0-32.0 [facility] Comment on above: Performed By: #### L 500.2500, L100.0100 ####[facility] [address] [place], [address] Creatinine [Mass/Vol] 5.82 mg/dL High 0.70-1.20 [facility] Comment on above: Performed By: #### L 500.2500, L100.0100 ####[facility] [address] [place], [address] ECRCL 13.52 ml/min Low 50-250 [facility] Comment on above: Performed By: #### L 500.2500, L100.0100 ####[facility] [address] [place], [address] GAP 19 High 5-15 [facility] Comment on above: Performed By: #### L 500.2500, L100.0100 ####[facility] [address] [place], [address] GFR/1.73 sq M.predicted among non-blacks MDRD (S/P/Bld) [Vol rate/Area] 10 mL/min/{1.73_m2} Low >60 [facility] Comment on above: Result Comment: mL/m in/1.73m2 CKD-EPI Creatinine Equation (2020) Performed By: #### L 500.2500, L100.0100 ####[facility] [address] [place], [address] Glucose [Mass/Vol] 154 mg/dL High 70-99 [facility] Comment on above: Performed By: #### L 500.2500, L100.0100 ####[facility] [address] [place], [address] Potassium [Moles/Vol] 5.3 mmol/L High 3.3-5.1 [facility] Comment on above: Result Comment: Hemo lysis present, Results??could be affected.?? Performed By: #### L 500.2500, L100.0100 ####[facility] [address] [place], [address] Sodium [Moles/Vol] 134 mmol/L Normal 133-145 [facility] Comment on above: Performed By: #### L 500.2500, L100.0100 ####[facility] [address] [place], [address] Urea nitrogen [Mass/Vol] 30 mg/dL High 4-19 [facility] Comment on above: Performed By: #### L 500.2500, L100.0100 ####[facility] [address] [place], [address] Bedside Glucoseon 08-24-2024 FINGERSTICK GLU 290 mg/dL High 74-106 [facility] Comment on above: Result Comment: ANABELLE GEMENT OF PATIENT CARE PER NURSING PROTOCOL Performed By: #### L 501.080 ####[facility] [address] [place], [address] FINGERSTICK GLU 186 mg/dL High 74-106 [facility] Comment on above: Result Comment: ANABELLE GEMENT OF PATIENT CARE PER NURSING PROTOCOL Performed By: #### L 501.080 ####[facility] [address] [place], [address] FINGERSTICK GLU 153 mg/dL High 74-106 [facility] Comment on above: Result Comment: ANABELLE BACH OF PATIENT CARE PER NURSING PROTOCOL Performed By: #### L 501.080 ####[facility] [address] [place], [address] CBC W/Diff, Automatedon 07-29 Absolute Lymph 1.53 X10 3/uL Normal 0.83-4.51 [facility] Comment on above: Order Comment: REDRA W. PREVIOUS SPECIMEN REJECTED DUE TOQNS. 08/24/24 0709 Robert Hylton.UTO X2 PHLEBS-INFORMED NURSE ELAINA-PER NURSE MAY TRY DRAWINGTHIS SPECIMEN FROM PT DIALYSIS [place] Performed By: #### L 100.0100 ####[facility] [address] [place], [address] Absolute Neut 10.7 X10 3/uL High 2.0-7.7 [facility] Comment on above: Order Comment: REDRA W. PREVIOUS SPECIMEN REJECTED DUE TOQNS. 08/24/24 0709 Robert Hylton.UTO X2 PHLEBS-INFORMED NURSE ELAINA-PER NURSE MAY TRY DRAWINGTHIS SPECIMEN FROM PT DIALYSIS [place] Performed By: #### L 100.0100 ####[facility] [address] [place], [address] Basophils/100 WBC (Bld) 0.4 % Normal 0-1 [facility] Comment on above: Order Comment: REDRA W. PREVIOUS SPECIMEN REJECTED DUE TOQNS. 08/24/24 0709 Robert Hylton.UTO X2 PHLEBS-INFORMED NURSE ELAINA-PER NURSE MAY TRY DRAWINGTHIS SPECIMEN FROM PT DIALYSIS [place] Performed By: #### L 100.0100 ####Good [facility] [address] [place], [address] Eosinophils/100 WBC (Bld) 1.0 % Normal 0-5 [facility] Comment on above: Order Comment: REDRA W. PREVIOUS SPECIMEN REJECTED DUE TOQNS. 08/24/24 0709 Robert Hylton.UTO X2 PHLEBS-INFORMED NURSE ELAINA-PER NURSE MAY TRY DRAWINGTHIS SPECIMEN FROM PT DIALYSIS [place] Performed By: #### L 100.0100 ####[facility] [address] [place], [place], [id number] Erythrocyte distribution width (RBC) [Ratio] 14.2 % Normal 11.6-14.6 [facility] Comment on above: Order Comment: REDRA W. PREVIOUS SPECIMEN REJECTED DUE TOQNS. 08/24/24 0709 Robert Hylton.UTO X2 PHLEBS-INFORMED NURSE ELAINA-PER NURSE MAY TRY DRAWINGTHIS SPECIMEN FROM PT DIALYSIS TX Performed By: #### L 100.0100 ####[facility] [address] [place], [place], [address] Hematocrit (Bld) [Volume fraction] 21.0 % Low 40-54 [facility] Comment on above: Order Comment: REDRA W. PREVIOUS SPECIMEN REJECTED DUE TOQNS. 08/24/24 0709 Robert Warner.UTO X2 PHLEBS-INFORMED NURSE ELAINA-PER NURSE MAY TRY DRAWINGTHIS SPECIMEN FROM PT DIALYSIS TX Performed By: #### L 100.0100 ####[facility] [address] [place], [place], [address] Hemoglobin (Bld) [Mass/Vol] 7.0 g/dL Low 13.0-16.5 [facility] Comment on above: Order Comment: REDRA W. PREVIOUS SPECIMEN REJECTED DUE TOQNS. 08/24/24 0709 Robert Hylton.UTO X2 PHLEBS-INFORMED NURSE ELAINA-PER NURSE MAY TRY DRAWINGTHIS SPECIMEN FROM PT DIALYSIS TX Performed By: #### L 100.0100 ####[facility] [address] [place], [place], [phone](975) IG% 1.200 High 0.0-0.9 [facility] Comment on above: Order Comment: REDRA W. PREVIOUS SPECIMEN REJECTED DUE TOQNS. 08/24/24 0709 Robert Hylton.UTO X2 PHLEBS-INFORMED NURSE ELAINA-PER NURSE MAY TRY DRAWINGTHIS SPECIMEN FROM PT DIALYSIS [place] Result Comment: IG% - Immature Granulocytes (promyelocytes, myelocytes andmetamyelocytes) > 1% indicates that a LEFT SHIFT is Present. Performed By: #### L 100.0100 ####[facility] [address] [place], [address] Lymphocytes/100 WBC (Bld) 11.5 % Low 19-41 [facility] Comment on above: Order Comment: REDRA W. PREVIOUS SPECIMEN REJECTED DUE TOQNS. 08/24/24 0709 Robert Hylton.UTO X2 PHLEBS-INFORMED NURSE ELAINA-PER NURSE MAY TRY DRAWINGTHIS SPECIMEN FROM PT DIALYSIS TX Performed By: #### L 100.0100 ####[facility] [address] [place], [address] MCH (RBC) [Entitic mass] 31.7 pg Normal 27.0-32.0 [facility] Comment on above: Order Comment: REDRA W. PREVIOUS SPECIMEN REJECTED DUE TOQNS. 08/24/24 0709 [facility] PHLEBS-INFORMED NURSE ELAINA-PER NURSE MAY TRY DRAWINGTHIS SPECIMEN FROM PT DIALYSIS TX Performed By: #### L 100.0100 ####[facility] [address] [facility] [place], [address] MCHC (RBC) [Mass/Vol] 33.3 g/dL Normal 32-36 [facility] Comment on above: Order Comment: REDRA W. PREVIOUS SPECIMEN REJECTED DUE TOQNS. 08/24/24 0709 [place] Warner.UTO X2 PHLEBS-INFORMED NURSE ELAINA-PER NURSE MAY TRY DRAWINGTHIS SPECIMEN FROM PT DIALYSIS TX Performed By: #### L 100.0100 ####[facility] [address] [facility] [place], [address] MCV (RBC) [Entitic vol] 95.0 fL High 80-94 [facility] Comment on above: Order Comment: REDRA W. PREVIOUS SPECIMEN REJECTED DUE TOQNS. 08/24/24 0709 Robert Hylton.UTO X2 PHLEBS-INFORMED NURSE ELAINA-PER NURSE MAY TRY DRAWINGTHIS SPECIMEN FROM PT DIALYSIS TX Performed By: #### L 100.0100 ####[facility] [address] [place], [address] Monocytes/100 WBC (Bld) 6.1 % Normal 0-10 [facility] Comment on above: Order Comment: REDRA W. PREVIOUS SPECIMEN REJECTED DUE TOQNS. 08/24/24 0709 Robert Hylton.UTO X2 PHLEBS-INFORMED NURSE ELAINA-PER NURSE MAY TRY DRAWINGTHIS SPECIMEN FROM PT DIALYSIS TX Performed By: #### L 100.0100 ####[facility] [address] [place], [address] Neutrophils/100 WBC (Bld) 79.8 % High 47-70 [facility] Comment on above: Order Comment: REDRA W. PREVIOUS SPECIMEN REJECTED DUE TOQNS. 08/24/24 0709 [facility] X2 PHLEBS-INFORMED NURSE ELAINA-PER NURSE MAY TRY DRAWINGTHIS SPECIMEN FROM PT DIALYSIS TX Performed By: #### L 100.0100 ####[facility] [address] [place], [address] Nucleated RBC (Bld) [#/Vol] 0 10*3/uL Normal 0-5 [facility] Comment on above: Order Comment: REDRA W. PREVIOUS SPECIMEN REJECTED DUE TOQNS. 08/24/24 07 [facility] X2 PHLEBS-INFORMED NURSE ELAINA-PER NURSE MAY TRY DRAWINGTHIS SPECIMEN FROM PT DIALYSIS TX Performed By: #### L 100.0100 ####[facility] [address] [place], [address] Platelet mean volume (Bld) [Entitic vol] 9.1 fL Normal 6.2-12.0 [facility] Comment on above: Order Comment: REDRA W. PREVIOUS SPECIMEN REJECTED DUE TOQNS. 08/24/24 0709 Robert Hylton.UTO X2 PHLEBS-INFORMED NURSE ELAINA-PER NURSE MAY TRY DRAWINGTHIS SPECIMEN FROM PT DIALYSIS TX Performed By: #### L 100.0100 ####[facility] [address] [place], [address] Platelets (Bld) [#/Vol] 460 10*3/uL High 150-450 [facility] Comment on above: Order Comment: REDRA W. PREVIOUS SPECIMEN REJECTED DUE TOQNS. 08/24/24 0709 Robert Hylton.UTO X2 PHLEBS-INFORMED NURSE ELAINA-PER NURSE MAY TRY DRAWINGTHIS SPECIMEN FROM PT DIALYSIS TX Performed By: #### L 100.0100 ####[facility] [address] [place], [address] RBC (Bld) [#/Vol] 2.21 10*6/uL Low 4.6-6.2 [facility] Comment on above: Order Comment: REDRA W. PREVIOUS SPECIMEN REJECTED DUE TOQNS. 08/24/24 0709 Robert Hardinzano.UTO X2 PHLEBS-INFORMED NURSE ELAINA-PER NURSE MAY TRY DRAWINGTHIS SPECIMEN FROM PT DIALYSIS TX Performed By: #### L 100.0100 ####[facility] [address] [place], [address] RDW SD 46.3 fl High 35.1-43.9 [facility] Comment on above: Order Comment: REDRA W. PREVIOUS SPECIMEN REJECTED DUE TOQNS. 08/24/24 0709 [facility] X2 PHLEBS-INFORMED NURSE ELAINA-PER NURSE MAY TRY DRAWINGTHIS SPECIMEN FROM PT DIALYSIS TX Performed By: #### L 100.0100 ####[facility] [address] [place], [address] WBC (Bld) [#/Vol] 13.4 10*3/uL High 4.4-11.0 [facility] Comment on above: Order Comment: REDRA W. PREVIOUS SPECIMEN REJECTED DUE TOQNS. 08/24/24 0709 Robert Warner.UTO X2 PHLEBS-INFORMED NURSE ELAINA-PER NURSE MAY TRY DRAWINGTHIS SPECIMEN FROM PT DIALYSIS TX Performed By: #### L 100.0100 ####[facility] [address] [place], [address] Absolute Neut Normal 2.0-7.7 [facility] Comment on above: Result Comment: This specimen has been REJECTED due to Laboratory criteria:Quanity Not Sufficient.LAB has been notified of need of recollection.08/24/24708 Robert Hylton Performed By: #### L 500.2500, L100.0100 ####[facility] [address] [place], [address] HCT Normal 40-54 [facility] Comment on above: Result Comment: This specimen has been REJECTED due to Laboratory criteria:Quanity Not Sufficient.LAB has been notified of need of recollection.08/24/24708 Robert Hylton Performed By: #### L 500.2500, L100.0100 ####[facility] [address] [place], [address] HGB Normal 13.0-16.5 [facility] Comment on above: Result Comment: This specimen has been REJECTED due to Laboratory criteria:Quanity Not Sufficient.LAB has been notified of need of recollection.08/24/24708 Robert Hylton Performed By: #### L 500.2500, L100.0100 ####[facility] [address] [place], [address] MCH Normal 27.0-32.0 [facility] Comment on above: Result Comment: This specimen has been REJECTED due to Laboratory criteria:Quanity Not Sufficient.LAB has been notified of need of recollection.08/24/24708 Robert Hylton Performed By: #### L 500.2500, L100.0100 ####[facility] [address] [place], [address] MCHC Normal 32-36 [facility] Comment on above: Result Comment: This specimen has been REJECTED due to Laboratory criteria:Quanity Not Sufficient.LAB has been notified of need of recollection.08/24/24708 Robert Hylton Performed By: #### L 500.2500, L100.0100 ####[facility] [address] [place], [address] MCV Normal 80-94 [facility] Comment on above: Result Comment: This specimen has been REJECTED due to Laboratory criteria:Quanity Not Sufficient.LAB has been notified of need of recollection.08/24/24708 Robert Hylton Performed By: #### L 500.2500, L100.0100 ####[facility] [address] [place], [address] NEUT% Normal 47-70 [facility] Comment on above: Result Comment: This specimen has been REJECTED due to Laboratory criteria:Quanity Not Sufficient.LAB has been notified of need of recollection.08/24/24708 Robert Hylton Performed By: #### L 500.2500, L100.0100 ####[facility] [address] [place], [address] PLT Normal 150-450 [facility] Comment on above: Result Comment: This specimen has been REJECTED due to Laboratory criteria:Quanity Not Sufficient.LAB has been notified of need of recollection.08/24/24708 Robert Hylton Performed By: #### L 500.2500, L100.0100 ####[facility] [address] [place], [address] RBC Normal 4.6-6.2 [facility] Comment on above: Result Comment: This specimen has been REJECTED due to Laboratory criteria:Quanity Not Sufficient.LAB has been notified of need of recollection.08/24/24708 Robert Hylton Performed By: #### L 500.2500, L100.0100 ####[facility] [address] [place], [address] RDW CV Normal 11.6-14.6 [facility] Comment on above: Result Comment: This specimen has been REJECTED due to Laboratory criteria:Quanity Not Sufficient.LAB has been notified of need of recollection.08/24/24708 Robert Hylton Performed By: #### L 500.2500, L100.0100 ####[facility] [address] [place], [address] RDW SD Normal 35.1-43.9 [facility] Comment on above: Result Comment: This specimen has been REJECTED due to Laboratory criteria:Quanity Not Sufficient.LAB has been notified of need of recollection.08/24/24708 Robert Hylton Performed By: #### L 500.2500, L100.0100 ####[facility] [address] [place], [address] WBC Normal 4.4-11.0 [facility] Comment on above: Result Comment: This specimen has been REJECTED due to Laboratory criteria:Quanity Not Sufficient.LAB has been notified of need of recollection.08/24/24708 Robert Hylton Performed By: #### L 500.2500, L100.0100 ####[facility] [address] [place], [address] Type AND Screenon 08-24-2024 ABO and Rh group Nom (Bld) Blood group O Rh(D) negative Normal [facility] Comment on above: Order Comment: CMV N EG? NNumber of units to transfuse: 1Is pt's Hgb is = to 7.0 mg/dl or Hct </= 21%? YReason for Ordering Blood: ChronicAre the blood/blood products to be transfused? YIs the patient having/had surgery? NWhen Neeta Performed By: #### B TS, BR ####[facility] [address] [place], [address] Bedside Glucoseon 08-23-2024 FINGERSTICK GLU 134 mg/dL High 74-106 [facility] Comment on above: Result Comment: ANABELLE BACH OF PATIENT CARE PER NURSING PROTOCOL Performed By: #### L 501.080 ####[facility] [address] [place], [address] FINGERSTICK GLU 119 mg/dL High 74-106 [facility] Comment on above: Result Comment: ANABELLE GEMENT OF PATIENT CARE PER NURSING PROTOCOL Performed By: #### L 501.080 ####[facility] [address] [place], [address] FINGERSTICK GLU 241 mg/dL High 74-106 [facility] Comment on above: Result Comment: ANABELLE GEMENT OF PATIENT CARE PER NURSING PROTOCOL Performed By: #### L 501.080 ####[facility] [address] [place], [address] FINGERSTICK GLU 146 mg/dL High 74-106 [facility] Comment on above: Result Comment: ANABELLE GEMENT OF PATIENT CARE PER NURSING PROTOCOL Performed By: #### L 501.080 ####[facility] [address] [place], [address] Bedside Glucoseon 08-22-2024 FINGERSTICK GLU 88 mg/dL Normal 74-106 [facility] Comment on above: Result Comment: ANABELLE GEMENT OF PATIENT CARE PER NURSING PROTOCOL Performed By: #### L 501.080 ####[facility] [address] [place], [address] FINGERSTICK GLU 132 mg/dL High 74-106 [facility] Comment on above: Result Comment: ANABELLE GEMENT OF PATIENT CARE PER NURSING PROTOCOL Performed By: #### L 501.080 ####[facility] [address] [place], [address] FINGERSTICK GLU 169 mg/dL High -106 [facility] Comment on above: Result Comment: ANABELLE GEMENT OF PATIENT CARE PER NURSING PROTOCOL Performed By: #### L 501.080 ####[facility] [address] [place], [address] FINGERSTICK GLU 122 mg/dL High 74-106 [facility] Comment on above: Result Comment: ANABELLE GEMENT OF PATIENT CARE PER NURSING PROTOCOL Performed By: #### L 501.080 ####[facility] [address] [place], [address] HH, Hemoglobin AND Hematocri ton 08-22-2024 Hematocrit (Bld) [Volume fraction] 26.4 % Low 40-54 [facility] Comment on above: Order Comment: LATE DUE TO MULTIPLE ATEMPTS Performed By: #### L 100.0600 ####[facility] [address] [place], [address] Hemoglobin (Bld) [Mass/Vol] 8.8 g/dL Low 13.0-16.5 [facility] Comment on above: Order Comment: LATE DUE TO MULTIPLE ATEMPTS Performed By: #### L 100.0600 ####[facility] [address] [place], [address] HCT Normal 40-54 [facility] Comment on above: Result Comment: YANICK HERNANDEZ, SPOKE WITH AIRAM Performed By: #### L 100.0600 ####[facility] [address] [place], [address] HGB Normal 13.0-16.5 [facility] Comment on above: Result Comment: YANICK HERNANDEZ, SPOKE WITH AIRAM Performed By: #### L 100.0600 ####[facility] [address] [place], [address] BRCon 08-21-2024 RC Normal [facility] Comment on above: Result Comment: [id number] ON RC TRANSFUSED 08/21/24 1107 Performed By: #### B BANNER ####[facility] [address] [place], [address] Bedside Glucoseon 08-21-2024 FINGERSTICK GLU 69 mg/dL Low 74-106 [facility] Comment on above: Result Comment: ANABELLE BACH OF PATIENT CARE PER NURSING PROTOCOL Performed By: #### L 501.080 ####[facility] [address] [place], [address] FINGERSTICK GLU 87 mg/dL Normal 74-106 [facility] Comment on above: Result Comment: ANABELLE GEMENT OF PATIENT CARE PER NURSING PROTOCOL Performed By: #### L 501.080 ####[facility] [address] [place], [address] FINGERSTICK GLU 65 mg/dL Low 74-106 [facility] Comment on above: Result Comment: ANABELLE GEMENT OF PATIENT CARE PER NURSING PROTOCOL Performed By: #### L 501.080 ####[facility] [address] [place], [address] FINGERSTICK GLU 87 mg/dL Normal 74-106 [facility] Comment on above: Result Comment: ANABELLE GEMENT OF PATIENT CARE PER NURSING PROTOCOL Performed By: #### L 501.080 ####[facility] [address] [place], [address] FINGERSTICK GLU 149 mg/dL High 74-106 [facility] Comment on above: Result Comment: ANABELLE GEMENT OF PATIENT CARE PER NURSING PROTOCOL Performed By: #### L 501.080 ####[facility] [address] [place], [address] FINGERSTICK GLU 76 mg/dL Normal 74-106 [facility] Comment on above: Result Comment: ANABELLE GEMENT OF PATIENT CARE PER NURSING PROTOCOL Performed By: #### L 501.080 ####[facility] [address] [place], [address] FINGERSTICK GLU 100 mg/dL Normal 74-106 [facility] Comment on above: Result Comment: ANABELLE GEMENT OF PATIENT CARE PER NURSING PROTOCOL Performed By: #### L 501.080 ####[facility] [address] [place], [address] FINGERSTICK GLU 60 mg/dL Low 74-106 [facility] Comment on above: Result Comment: ANABELLE BACH OF PATIENT CARE PER NURSING PROTOCOL Performed By: #### L 501.080 ####[facility] [address] [place], [address] Blood manual differential co mment interpretation (narrative result)Ordered By: Miki Boyd on 08-21-2024 Manual differential comment James (Bld) [Interp] SCANNED [facility] CBC W/Diff, Automatedon 07-29 SMEAR COMMENT SCANNED Normal [facility] Comment on above: Performed By: #### L 100.0100 ####[facility] [address] [place], [address] HH, Hemoglobin AND Hematocri ton 08-21-2024 Hematocrit (Bld) [Volume fraction] 21.3 % Low 40-54 [facility] Comment on above: Order Comment: Comme nts: Post Transfusion Performed By: #### L 100.0600 ####[facility] [address] [place], [address] Hemoglobin (Bld) [Mass/Vol] 7.0 g/dL Low 13.0-16.5 [facility] Comment on above: Order Comment: Comme nts: Post Transfusion Performed By: #### L 100.0600 ####[facility] [address] [place], [address] Renal Profileon 08-21-2024 Albumin [Mass/Vol] 2.8 g/dL Low 3.4-4.8 [facility] Comment on above: Performed By: #### L 500.3600 ####[facility] [address] [place], [address] BUN/CRE 6.3 RATIO Low 10-20 [facility] Comment on above: Performed By: #### L 500.3600 ####[facility] [address] [place], [address] Calcium [Mass/Vol] 8.0 mg/dL Normal 7.6-11.0 [facility] Comment on above: Performed By: #### L 500.3600 ####[facility] [address] [place], [address] Chloride [Moles/Vol] 106 mmol/L Normal 98-108 [facility] Comment on above: Performed By: #### L 500.3600 ####[facility] [address] [place], [address] CO2 [Moles/Vol] 23.8 mmol/L Normal 21.0-32.0 [facility] Comment on above: Performed By: #### L 500.3600 ####[facility] [address] [place], [address] Creatinine [Mass/Vol] 3.44 mg/dL High 0.70-1.20 [facility] Comment on above: Performed By: #### L 500.3600 ####[facility] [address] [place], [address] ECRCL 22.87 ml/min Low 50-250 [facility] Comment on above: Performed By: #### L 500.3600 ####[facility] [address] [place], [address] GAP 12 Normal 5-15 [facility] Comment on above: Performed By: #### L 500.3600 ####[facility] [address] [place], [address] GFR/1.73 sq M.predicted among non-blacks MDRD (S/P/Bld) [Vol rate/Area] 19 mL/min/{1.73_m2} Low >60 [facility] Comment on above: Result Comment: mL/m in/1.73m2 CKD-EPI Creatinine Equation (2020) Performed By: #### L 500.3600 ####[facility] [address] [place], [address] Glucose [Mass/Vol] 103 mg/dL High 70-99 [facility] Comment on above: Performed By: #### L 500.3600 ####[facility] [address] [place], [address] Phosphate [Mass/Vol] 4.0 mg/dL Normal 2.7-4.5 [facility] Comment on above: Performed By: #### L 500.3600 ####[facility] [address] [place], [address] Potassium [Moles/Vol] 4.1 mmol/L Normal 3.3-5.1 [facility] Comment on above: Performed By: #### L 500.3600 ####[facility] [address] [place], [address] Sodium [Moles/Vol] 142 mmol/L Normal 133-145 [facility] Comment on above: Performed By: #### L 500.3600 ####[facility] [address] [place], [address] Urea nitrogen [Mass/Vol] 22 mg/dL High 4-19 [facility] Comment on above: Performed By: #### L 500.3600 ####[facility] [address] [place], [address] Type AND Screenon 08-21-2024 ABO and Rh group Nom (Bld) Blood group O Rh(D) negative Normal [facility] Comment on above: Order Comment: CMV N EG? NNumber of units to transfuse: 1Reason for Ordering Blood: AcuteAre the blood/blood products to be transfused? YIs the patient having/had surgery? NWhen Neeta Performed By: #### B TS, BRC ####[facility] [address] [place], [address] Bedside Glucoseon 08-20-2024 FINGERSTICK GLU 76 mg/dL Normal 74-106 [facility] Comment on above: Result Comment: ANABELLE GEMENT OF PATIENT CARE PER NURSING PROTOCOL Performed By: #### L 501.080 ####[facility] [address] [place], [address] FINGERSTICK GLU 145 mg/dL High 74-106 [facility] Comment on above: Result Comment: ANABELLE GEMENT OF PATIENT CARE PER NURSING PROTOCOL Performed By: #### L 501.080 ####[facility] [address] [place], [address] FINGERSTICK GLU 163 mg/dL High 74-106 [facility] Comment on above: Result Comment: ANABELLE GEMENT OF PATIENT CARE PER NURSING PROTOCOL Performed By: #### L 501.080 ####[facility] [address] [place], [address] FINGERSTICK GLU 162 mg/dL High 74-106 [facility] Comment on above: Result Comment: ANABELLE GEMENT OF PATIENT CARE PER NURSING PROTOCOL Performed By: #### L 501.080 ####[facility] [address] [place], [address] Magnesiumon 08-20-2024 Magnesium [Mass/Vol] 1.8 mg/dL Normal 1.5-2.2 [facility] Comment on above: Performed By: #### L 501.5200, L500.3600 ####[facility] [address] [place], [address] Magnesium [Mass/Vol] 1.8 mg/dL Normal 1.5-2.2 [facility] Comment on above: Performed By: #### L 500.3600, L501.5200 ####[facility] [address] [place], [address] Renal Profileon 08-20-2024 Albumin [Mass/Vol] 2.4 g/dL Low 3.4-4.8 [facility] Comment on above: Performed By: #### L 501.5200, L500.3600 ####[facility] [address] [place], [address] BUN/CRE 8.9 RATIO Low 10-20 [facility] Comment on above: Performed By: #### L 501.5200, L500.3600 ####[facility] [address] [place], [address] Calcium [Mass/Vol] 8.1 mg/dL Normal 7.6-11.0 [facility] Comment on above: Performed By: #### L 501.5200, L500.3600 ####[facility] [address] [place], [address] Chloride [Moles/Vol] 103 mmol/L Normal 98-108 [facility] Comment on above: Performed By: #### L 501.5200, L500.3600 ####[facility] [address] [place], [address] CO2 [Moles/Vol] 23.3 mmol/L Normal 21.0-32.0 [facility] Comment on above: Performed By: #### L 501.5200, L500.3600 ####[facility] [address] [place], [address] Creatinine [Mass/Vol] 2.43 mg/dL High 0.70-1.20 [facility] Comment on above: Performed By: #### L 501.5200, L500.3600 ####[facility] [address] [place], [address] ECRCL 35.00 ml/min Low 50-250 [facility] Comment on above: Performed By: #### L 501.5200, L500.3600 ####[facility] [address] [place], [address] GAP 11 Normal 5-15 [facility] Comment on above: Performed By: #### L 501.5200, L500.3600 ####[facility] [address] [place], [address] GFR/1.73 sq M.predicted among non-blacks MDRD (S/P/Bld) [Vol rate/Area] 28 mL/min/{1.73_m2} Low >60 [facility] Comment on above: Result Comment: mL/m in/1.73m2 CKD-EPI Creatinine Equation (2020) Performed By: #### L 501.5200, L500.3600 ####[facility] [address] [place], [address] Glucose [Mass/Vol] 190 mg/dL High 70-99 [facility] Comment on above: Performed By: #### L 501.5200, L500.3600 ####[facility] [address] [place], [address] Phosphate [Mass/Vol] 2.9 mg/dL Normal 2.7-4.5 [facility] Comment on above: Performed By: #### L 501.5200, L500.3600 ####[facility] [address] [place], [address] Potassium [Moles/Vol] 4.2 mmol/L Normal 3.3-5.1 [facility] Comment on above: Performed By: #### L 501.5200, L500.3600 ####[facility] [address] [place], [address] Sodium [Moles/Vol] 137 mmol/L Normal 133-145 [facility] Comment on above: Performed By: #### L 501.5200, L500.3600 ####[facility] [address] [place], [address] Urea nitrogen [Mass/Vol] 22 mg/dL High 4-19 [facility] Comment on above: Performed By: #### L 501.5200, L500.3600 ####[facility] [address] [place], [address] Albumin [Mass/Vol] 3.1 g/dL Low 3.4-4.8 [facility] Comment on above: Performed By: #### L 500.3600, L501.5200 ####[facility] [address] [place], [address] BUN/CRE 8.2 RATIO Low 10-20 [facility] Comment on above: Result Comment: AMENDED REPORT 08/20/24 0109 BUN/CRE previously reported as: 8.2 L RATIO Performed By: #### L 500.3600, L501.5200 ####[facility] [address] [place], [address] Calcium [Mass/Vol] 7.9 mg/dL Normal 7.6-11.0 [facility] Comment on above: Performed By: #### L 500.3600, L501.5200 ####[facility] [address] [place], [address] Chloride [Moles/Vol] 105 mmol/L Normal 98-108 [facility] Comment on above: Performed By: #### L 500.3600, L501.5200 ####[facility] [address] [place], [address] CO2 [Moles/Vol] 22.3 mmol/L Normal 21.0-32.0 [facility] Comment on above: Performed By: #### L 500.3600, L501.5200 ####[facility] [address] [place], [address] Creatinine [Mass/Vol] 2.80 mg/dL High 0.70-1.20 [facility] Comment on above: Performed By: #### L 500.3600, L501.5200 ####[facility] [address] [place], [address] ECRCL 31.17 ml/min Low 50-250 [facility] Comment on above: Performed By: #### L 500.3600, L501.5200 ####[facility] [address] [place], [address] GAP 12 Normal 5-15 [facility] Comment on above: Performed By: #### L 500.3600, L501.5200 ####[facility] [address] [place], [address] GFR/1.73 sq M.predicted among non-blacks MDRD (S/P/Bld) [Vol rate/Area] 24 mL/min/{1.73_m2} Low >60 [facility] Comment on above: Result Comment: mL/m in/1.73m2 CKD-EPI Creatinine Equation (2020) Performed By: #### L 500.3600, L501.5200 ####[facility] [address] [place], [address] Glucose [Mass/Vol] 225 mg/dL High 70-99 [facility] Comment on above: Performed By: #### L 500.3600, L501.5200 ####[facility] [address] [place], [address] Phosphate [Mass/Vol] 3.6 mg/dL Normal 2.7-4.5 [facility] Comment on above: Performed By: #### L 500.3600, L501.5200 ####[facility] [address] [place], [address] Potassium [Moles/Vol] 4.0 mmol/L Normal 3.3-5.1 [facility] Comment on above: Performed By: #### L 500.3600, L501.5200 ####[facility] [address] [place], [address] Sodium [Moles/Vol] 139 mmol/L Normal 133-145 [facility] Comment on above: Performed By: #### L 500.3600, L501.5200 ####[facility] [address] [place], [address] Urea nitrogen [Mass/Vol] 23 mg/dL High 4-19 [facility] Comment on above: Performed By: #### L 500.3600, L501.5200 ####[facility] [address] [place], [address] Bedside Glucoseon 08-19-2024 FINGERSTICK GLU 179 mg/dL High 74-106 [facility] Comment on above: Result Comment: ANABELLE GEMENT OF PATIENT CARE PER NURSING PROTOCOL Performed By: #### L 501.080 ####[facility] [address] [place], [address] FINGERSTICK GLU 180 mg/dL High 74-106 [facility] Comment on above: Result Comment: ANABELLE GEMENT OF PATIENT CARE PER NURSING PROTOCOL Performed By: #### L 501.080 ####[facility] [address] [place], [address] FINGERSTICK GLU 188 mg/dL High 74-106 [facility] Comment on above: Result Comment: ANABELLE GEMENT OF PATIENT CARE PER NURSING PROTOCOL Performed By: #### L 501.080 ####[facility] [address] [place], [address] FINGERSTICK GLU 184 mg/dL High 74-106 [facility] Comment on above: Result Comment: ANABELLE GEMENT OF PATIENT CARE PER NURSING PROTOCOL Performed By: #### L 501.080 ####[facility] [address] [place], [address] CBC W/Diff, Automatedon 04-2 Absolute Lymph 1.24 X10 3/uL Normal 0.83-4.51 [facility] Comment on above: Performed By: #### L 100.0100 ####[facility] [address] [place], [address] Absolute Neut 11.1 X10 3/uL High 2.0-7.7 [facility] Comment on above: Performed By: #### L 100.0100 ####[facility] [address] [place], [address] Basophils/100 WBC (Bld) 0.4 % Normal 0-1 [facility] Comment on above: Performed By: #### L 100.0100 ####[facility] [address] [place], [address] Eosinophils/100 WBC (Bld) 1.6 % Normal 0-5 [facility] Comment on above: Performed By: #### L 100.0100 ####[facility] [address] [place], [address] Erythrocyte distribution width (RBC) [Ratio] 14.6 % Normal 11.6-14.6 [facility] Comment on above: Performed By: #### L 100.0100 ####[facility] [address] [place], [address] Hematocrit (Bld) [Volume fraction] 24.8 % Low 40-54 [facility] Comment on above: Performed By: #### L 100.0100 ####[facility] [address] [place], [address] Hemoglobin (Bld) [Mass/Vol] 8.2 g/dL Low 13.0-16.5 [facility] Comment on above: Performed By: #### L 100.0100 ####[facility] [address] [place], [address] IG% 1.000 High 0.0-0.9 [facility] Comment on above: Result Comment: IG% - Immature Granulocytes (promyelocytes, myelocytes andmetamyelocytes) > 1% indicates that a LEFT SHIFT is Present. Performed By: #### L 100.0100 ####[facility] [address] [place], [address] Lymphocytes/100 WBC (Bld) 8.9 % Low 19-41 [facility] Comment on above: Performed By: #### L 100.0100 ####[facility] [address] [place], [address] MCH (RBC) [Entitic mass] 30.8 pg Normal 27.0-32.0 [facility] Comment on above: Performed By: #### L 100.0100 ####[facility] [address] [place], [address] MCHC (RBC) [Mass/Vol] 33.1 g/dL Normal 32-36 [facility] Comment on above: Performed By: #### L 100.0100 ####[facility] [address] [place], [address] MCV (RBC) [Entitic vol] 93.2 fL Normal 80-94 [facility] Comment on above: Performed By: #### L 100.0100 ####[facility] [address] [place], [address] Monocytes/100 WBC (Bld) 8.9 % Normal 0-10 [facility] Comment on above: Performed By: #### L 100.0100 ####[facility] [address] [place], [address] Neutrophils/100 WBC (Bld) 79.2 % High 47-70 [facility] Comment on above: Performed By: #### L 100.0100 ####[facility] [address] [place], [address] Nucleated RBC (Bld) [#/Vol] 0 10*3/uL Normal 0-5 [facility] Comment on above: Performed By: #### L 100.0100 ####[facility] [address] [place], [address] Platelet mean volume (Bld) [Entitic vol] 11.2 fL Normal 6.2-12.0 [facility] Comment on above: Performed By: #### L 100.0100 ####[facility] [address] [place], [address] Platelets (Bld) [#/Vol] 309 10*3/uL Normal 150-450 [facility] Comment on above: Performed By: #### L 100.0100 ####[facility] [address] [place], [address] RBC (Bld) [#/Vol] 2.66 10*6/uL Low 4.6-6.2 [facility] Comment on above: Performed By: #### L 100.0100 ####[facility] [address] [place], [address] RDW SD 49.6 fl High 35.1-43.9 [facility] Comment on above: Performed By: #### L 100.0100 ####[facility] [address] [place], [address] WBC (Bld) [#/Vol] 14.0 10*3/uL High 4.4-11.0 [facility] Comment on above: Performed By: #### L 100.0100 ####[facility] [address] [place], [address] Magnesiumon 08-19-2024 Magnesium [Mass/Vol] 1.8 mg/dL Normal 1.5-2.2 [facility] Comment on above: Performed By: #### L 501.5200, L500.3600 ####[facility] [address] [place], [address] Magnesium [Mass/Vol] 1.8 mg/dL Normal 1.5-2.2 [facility] Comment on above: Performed By: #### L 501.5200, L500.3600 ####[facility] [address] [place], [address] Renal Profileon 08-19-2024 Albumin [Mass/Vol] 2.5 g/dL Low 3.4-4.8 [facility] Comment on above: Performed By: #### L 501.5200, L500.3600 ####[facility] [address] [place], [address] BUN/CRE 8.5 RATIO Low 10-20 [facility] Comment on above: Performed By: #### L 501.5200, L500.3600 ####[facility] [address] [place], [address] Calcium [Mass/Vol] 8.3 mg/dL Normal 7.6-11.0 [facility] Comment on above: Performed By: #### L 501.5200, L500.3600 ####[facility] [address] [place], [address] Chloride [Moles/Vol] 103 mmol/L Normal 98-108 [facility] Comment on above: Performed By: #### L 501.5200, L500.3600 ####[facility] [address] [place], [address] CO2 [Moles/Vol] 22.3 mmol/L Normal 21.0-32.0 [facility] Comment on above: Performed By: #### L 501.5200, L500.3600 ####[facility] [address] [place], [address] Creatinine [Mass/Vol] 3.08 mg/dL High 0.70-1.20 [facility] Comment on above: Performed By: #### L 501.5200, L500.3600 ####[facility] [address] [place], [address] ECRCL 28.34 ml/min Low 50-250 [facility] Comment on above: Performed By: #### L 501.5200, L500.3600 ####[facility] [address] [place], [address] GAP 11 Normal 5-15 [facility] Comment on above: Performed By: #### L 501.5200, L500.3600 ####[facility] [address] [place], [address] GFR/1.73 sq M.predicted among non-blacks MDRD (S/P/Bld) [Vol rate/Area] 21 mL/min/{1.73_m2} Low >60 [facility] Comment on above: Result Comment: mL/m in/1.73m2 CKD-EPI Creatinine Equation (2020) Performed By: #### L 501.5200, L500.3600 ####[facility] [address] [place], [address] Glucose [Mass/Vol] 202 mg/dL High 70-99 [facility] Comment on above: Performed By: #### L 501.5200, L500.3600 ####[facility] [address] [place], [address] Phosphate [Mass/Vol] 2.3 mg/dL Low 2.7-4.5 [facility] Comment on above: Performed By: #### L 501.5200, L500.3600 ####[facility] [address] [place], [address] Potassium [Moles/Vol] 3.8 mmol/L Normal 3.3-5.1 [facility] Comment on above: Performed By: #### L 501.5200, L500.3600 ####[facility] [address] [place], [address] Sodium [Moles/Vol] 136 mmol/L Normal 133-145 [facility] Comment on above: Performed By: #### L 501.5200, L500.3600 ####[facility] [address] [place], [address] Urea nitrogen [Mass/Vol] 26 mg/dL High 4-19 [facility] Comment on above: Performed By: #### L 501.5200, L500.3600 ####[facility] [address] [place], [address] Albumin [Mass/Vol] 2.3 g/dL Low 3.4-4.8 [facility] Comment on above: Performed By: #### L 501.5200, L500.3600 ####[facility] [address] [place], [address] BUN/CRE 8.5 RATIO Low 10-20 [facility] Comment on above: Performed By: #### L 501.5200, L500.3600 ####[facility] [address] [place], [address] Calcium [Mass/Vol] 7.9 mg/dL Normal 7.6-11.0 [facility] Comment on above: Performed By: #### L 501.5200, L500.3600 ####[facility] [address] [place], [address] Chloride [Moles/Vol] 106 mmol/L Normal 98-108 [facility] Comment on above: Performed By: #### L 501.5200, L500.3600 ####[facility] [address] [place], [address] CO2 [Moles/Vol] 21.6 mmol/L Normal 21.0-32.0 [facility] Comment on above: Performed By: #### L 501.5200, L500.3600 ####[facility] [address] [place], [address] Creatinine [Mass/Vol] 3.66 mg/dL High 0.70-1.20 [facility] Comment on above: Performed By: #### L 501.5200, L500.3600 ####[facility] [address] [place], [address] ECRCL 23.85 ml/min Low 50-250 [facility] Comment on above: Performed By: #### L 501.5200, L500.3600 ####[facility] [address] [place], [address] GAP 11 Normal 5-15 [facility] Comment on above: Performed By: #### L 501.5200, L500.3600 ####[facility] [address] [place], [address] GFR/1.73 sq M.predicted among non-blacks MDRD (S/P/Bld) [Vol rate/Area] 17 mL/min/{1.73_m2} Low >60 [facility] Comment on above: Result Comment: mL/m in/1.73m2 CKD-EPI Creatinine Equation (2020) Performed By: #### L 501.5200, L500.3600 ####[facility] [address] [place], [address] Glucose [Mass/Vol] 204 mg/dL High 70-99 [facility] Comment on above: Performed By: #### L 501.5200, L500.3600 ####[facility] [address] [place], [address] Phosphate [Mass/Vol] 2.5 mg/dL Low 2.7-4.5 [facility] Comment on above: Performed By: #### L 501.5200, L500.3600 ####[facility] [address] [place], [address] Potassium [Moles/Vol] 3.9 mmol/L Normal 3.3-5.1 [facility] Comment on above: Performed By: #### L 501.5200, L500.3600 ####[facility] [address] [place], [address] Sodium [Moles/Vol] 139 mmol/L Normal 133-145 [facility] Comment on above: Performed By: #### L 501.5200, L500.3600 ####[facility] [address] [place], [address] Urea nitrogen [Mass/Vol] 31 mg/dL High 4-19 [facility] Comment on above: Performed By: #### L 501.5200, L500.3600 ####[facility] [address] [place], [address] Bedside Glucoseon 08-18-2024 FINGERSTICK GLU 178 mg/dL High 74-106 [facility] Comment on above: Result Comment: ANABELLE GEMENT OF PATIENT CARE PER NURSING PROTOCOL Performed By: #### L 501.080 ####[facility] [address] [place], [address] FINGERSTICK GLU 176 mg/dL High 74-106 [facility] Comment on above: Result Comment: ANABELLE GEMENT OF PATIENT CARE PER NURSING PROTOCOL Performed By: #### L 501.080 ####[facility] [address] [place], [address] FINGERSTICK GLU 186 mg/dL High 74-106 [facility] Comment on above: Result Comment: ANABELLE GEMENT OF PATIENT CARE PER NURSING PROTOCOL Performed By: #### L 501.080 ####[facility] [address] [place], [address] CBC-Complete Blood Cnt No Di elioon 08-18-2024 HCT Normal 40-54 [facility] Comment on above: Result Comment: Canc elled via OM: Duplicate Order Performed By: #### L 100.0500 ####[facility] [address] [place], [address] HGB Normal 13.0-16.5 [facility] Comment on above: Result Comment: Canc elled via OM: Duplicate Order Performed By: #### L 100.0500 ####[facility] [address] [place], [address] MCH Normal 27.0-32.0 [facility] Comment on above: Result Comment: Canc elled via OM: Duplicate Order Performed By: #### L 100.0500 ####[facility] [address] [place], [address] MCHC Normal 32-36 [facility] Comment on above: Result Comment: Canc elled via OM: Duplicate Order Performed By: #### L 100.0500 ####[facility] [address] [place], [address] MCV Normal 80-94 [facility] Comment on above: Result Comment: Canc elled via OM: Duplicate Order Performed By: #### L 100.0500 ####[facility] [address] [place], [address] PLT Normal 150-450 [facility] Comment on above: Result Comment: Canc elled via OM: Duplicate Order Performed By: #### L 100.0500 ####[facility] [address] [place], [address] RBC Normal 4.6-6.2 [facility] Comment on above: Result Comment: Canc elled via OM: Duplicate Order Performed By: #### L 100.0500 ####[facility] [address] [place], [address] RDW CV Normal 11.6-14.6 [facility] Comment on above: Result Comment: Canc elled via OM: Duplicate Order Performed By: #### L 100.0500 ####[facility] [address] [place], [address] RDW SD Normal 35.1-43.9 [facility] Comment on above: Result Comment: Canc elled via OM: Duplicate Order Performed By: #### L 100.0500 ####[facility] [address] [place], [address] WBC Normal 4.4-11.0 [facility] Comment on above: Result Comment: Canc elled via OM: Duplicate Order Performed By: #### L 100.0500 ####[facility] [address] [place], [address] Erythrocyte distribution width (RBC) [Ratio] 14.8 % High 11.6-14.6 [facility] Comment on above: Performed By: #### L 100.0500, L500.3600, L501.5200 ####[facility] [address] [place], [address] Hematocrit (Bld) [Volume fraction] 22.5 % Low 40-54 [facility] Comment on above: Performed By: #### L 100.0500, L500.3600, L501.5200 ####[facility] [address] [place], [address] Hemoglobin (Bld) [Mass/Vol] 7.6 g/dL Low 13.0-16.5 [facility] Comment on above: Performed By: #### L 100.0500, L500.3600, L501.5200 ####[facility] [address] [place], [address] MCH (RBC) [Entitic mass] 31.5 pg Normal 27.0-32.0 [facility] Comment on above: Performed By: #### L 100.0500, L500.3600, L501.5200 ####[facility] [address] [place], [address] MCHC (RBC) [Mass/Vol] 33.8 g/dL Normal 32-36 [facility] Comment on above: Performed By: #### L 100.0500, L500.3600, L501.5200 ####[facility] [address] [place], [address] MCV (RBC) [Entitic vol] 93.4 fL Normal 80-94 [facility] Comment on above: Performed By: #### L 100.0500, L500.3600, L501.5200 ####[facility] [address] [place], [address] Platelet mean volume (Bld) [Entitic vol] 11.6 fL Normal 6.2-12.0 [facility] Comment on above: Performed By: #### L 100.0500, L500.3600, L501.5200 ####[facility] [address] [place], [address] Platelets (Bld) [#/Vol] 237 10*3/uL Normal 150-450 [facility] Comment on above: Performed By: #### L 100.0500, L500.3600, L501.5200 ####[facility] [address] [place], [address] RBC (Bld) [#/Vol] 2.41 10*6/uL Low 4.6-6.2 [facility] Comment on above: Performed By: #### L 100.0500, L500.3600, L501.5200 ####[facility] [address] [place], [address] RDW SD 50.2 fl High 35.1-43.9 [facility] Comment on above: Performed By: #### L 100.0500, L500.3600, L501.5200 ####[facility] [address] [place], [address] WBC (Bld) [#/Vol] 12.5 10*3/uL High 4.4-11.0 [facility] Comment on above: Performed By: #### L 100.0500, L500.3600, L501.5200 ####[facility] [address] [place], [address] CXR for Line Placementon CXR for Line Placement Normal [facility] Magnesiumon 08-18-2024 Magnesium [Mass/Vol] 1.9 mg/dL Normal 1.5-2.2 [facility] Comment on above: Performed By: #### L 100.0500, L500.3600, L501.5200 ####[facility] [address] [place], [address] Procedure Reporton Procedure Report Normal [facility] Renal Profileon 08-18-2024 Albumin [Mass/Vol] 2.3 g/dL Low 3.4-4.8 [facility] Comment on above: Performed By: #### L 500.3600 ####[facility] [address] [place], [address] BUN/CRE 8.3 RATIO Low 10-20 [facility] Comment on above: Performed By: #### L 500.3600 ####[facility] [address] [place], [address] Calcium [Mass/Vol] 7.5 mg/dL Low 7.6-11.0 [facility] Comment on above: Performed By: #### L 500.3600 ####[facility] [address] [place], [address] Chloride [Moles/Vol] 109 mmol/L High 98-108 [facility] Comment on above: Performed By: #### L 500.3600 ####[facility] [address] [place], [address] CO2 [Moles/Vol] 19.9 mmol/L Low 21.0-32.0 [facility] Comment on above: Performed By: #### L 500.3600 ####[facility] [address] [place], [address] Creatinine [Mass/Vol] 5.46 mg/dL High 0.70-1.20 [facility] Comment on above: Performed By: #### L 500.3600 ####[facility] [address] [place], [address] ECRCL 15.96 ml/min Low 50-250 [facility] Comment on above: Performed By: #### L 500.3600 ####[facility] [address] [place], [address] GAP 12 Normal 5-15 [facility] Comment on above: Performed By: #### L 500.3600 ####[facility] [address] [place], [address] GFR/1.73 sq M.predicted among non-blacks MDRD (S/P/Bld) [Vol rate/Area] 11 mL/min/{1.73_m2} Low >60 [facility] Comment on above: Result Comment: mL/m in/1.73m2 CKD-EPI Creatinine Equation (2020) Performed By: #### L 500.3600 ####[facility] [address] [place], [address] Glucose [Mass/Vol] 190 mg/dL High 70-99 [facility] Comment on above: Performed By: #### L 500.3600 ####[facility] [address] [place], [address] Phosphate [Mass/Vol] 3.2 mg/dL Normal 2.7-4.5 [facility] Comment on above: Performed By: #### L 500.3600 ####[facility] [address] [place], [address] Potassium [Moles/Vol] 3.8 mmol/L Normal 3.3-5.1 [facility] Comment on above: Performed By: #### L 500.3600 ####[facility] [address] [place], [address] Sodium [Moles/Vol] 141 mmol/L Normal 133-145 [facility] Comment on above: Performed By: #### L 500.3600 ####[facility] [address] [place], [address] Urea nitrogen [Mass/Vol] 45 mg/dL High 4-19 [facility] Comment on above: Performed By: #### L 500.3600 ####[facility] [address] [place], [address] Albumin [Mass/Vol] 2.2 g/dL Low 3.4-4.8 [facility] Comment on above: Performed By: #### L 100.0500, L500.3600, L501.5200 ####[facility] [address] [place], [address] BUN/CRE 8.2 RATIO Low 10-20 [facility] Comment on above: Result Comment: AMENDED REPORT 08/18/24 0607 BUN/CRE previously reported as: 8.2 L RATIO Performed By: #### L 100.0500, L500.3600, L501.5200 ####[facility] [facility] [address] [place], [address] Calcium [Mass/Vol] 6.9 mg/dL Low 7.6-11.0 [facility] Comment on above: Performed By: #### L 100.0500, L500.3600, L501.5200 ####[facility] [address] [place], [address] Chloride [Moles/Vol] 109 mmol/L High 98-108 [facility] Comment on above: Performed By: #### L 100.0500, L500.3600, L501.5200 ####[facility] [address] [place], [address] CO2 [Moles/Vol] 18.0 mmol/L Low 21.0-32.0 [facility] Comment on above: Performed By: #### L 100.0500, L500.3600, L501.5200 ####[facility] [address] [place], [address] Creatinine [Mass/Vol] 7.62 mg/dL Invalid Interpretation Code 0.70-1.20 [facility] Comment on above: Result Comment: Crit ical Result(s) Called at: 0552 by:??YORDY HAVEN TO [place] Results read back by same. Performed By: #### L 100.0500, L500.3600, L501.5200 ####[facility] [address] [place], [address] ECRCL 11.44 ml/min Low 50-250 [facility] Comment on above: Performed By: #### L 100.0500, L500.3600, L501.5200 ####[facility] [address] [place], [address] GAP 15 Normal 5-15 [facility] Comment on above: Performed By: #### L 100.0500, L500.3600, L501.5200 ####[facility] [address] [place], [address] GFR/1.73 sq M.predicted among non-blacks MDRD (S/P/Bld) [Vol rate/Area] 7 mL/min/{1.73_m2} Low >60 [facility] Comment on above: Result Comment: mL/m in/1.73m2 CKD-EPI Creatinine Equation (2020) Performed By: #### L 100.0500, L500.3600, L501.5200 ####[facility] [address] [place], [address] Glucose [Mass/Vol] 194 mg/dL High 70-99 [facility] Comment on above: Performed By: #### L 100.0500, L500.3600, L501.5200 ####[facility] [address] [place], [address] Phosphate [Mass/Vol] 4.3 mg/dL Normal 2.7-4.5 [facility] Comment on above: Performed By: #### L 100.0500, L500.3600, L501.5200 ####[facility] [address] [place], [address] Potassium [Moles/Vol] 3.5 mmol/L Normal 3.3-5.1 [facility] Comment on above: Performed By: #### L 100.0500, L500.3600, L501.5200 ####[facility] [address] [place], [address] Sodium [Moles/Vol] 141 mmol/L Normal 133-145 [facility] Comment on above: Performed By: #### L 100.0500, L500.3600, L501.5200 ####[facility] [address] [place], [address] Urea nitrogen [Mass/Vol] 62 mg/dL High 4-19 [facility] Comment on above: Performed By: #### L 100.0500, L500.3600, L501.5200 ####[facility] [address] [place], [address] Basic Metabolic Profile (BMP )on 08-17-2024 BUN/CRE 8.6 RATIO Low 10-20 [facility] Comment on above: Performed By: #### L 100.0100, L500.2500 ####[facility] [address] [place], [address] Calcium [Mass/Vol] 6.8 mg/dL Low 7.6-11.0 [facility] Comment on above: Performed By: #### L 100.0100, L500.2500 ####[facility] [address] [place], [address] Chloride [Moles/Vol] 109 mmol/L High 98-108 [facility] Comment on above: Performed By: #### L 100.0100, L500.2500 ####[facility] [address] [place], [address] CO2 [Moles/Vol] 18.8 mmol/L Low 21.0-32.0 [facility] Comment on above: Performed By: #### L 100.0100, L500.2500 ####[facility] [address] [place], [address] Creatinine [Mass/Vol] 7.20 mg/dL High 0.70-1.20 [facility] Comment on above: Performed By: #### L 100.0100, L500.2500 ####[facility] [address] [place], [address] ECRCL 11.98 ml/min Low 50-250 [facility] Comment on above: Performed By: #### L 100.0100, L500.2500 ####[facility] [address] [place], [address] GAP 14 Normal 5-15 [facility] Comment on above: Performed By: #### L 100.0100, L500.2500 ####[facility] [address] [place], [address] GFR/1.73 sq M.predicted among non-blacks MDRD (S/P/Bld) [Vol rate/Area] 8 mL/min/{1.73_m2} Low >60 [facility] Comment on above: Result Comment: mL/m in/1.73m2 CKD-EPI Creatinine Equation (2020) Performed By: #### L 100.0100, L500.2500 ####[facility] [address] [place], [address] Glucose [Mass/Vol] 130 mg/dL High 70-99 [facility] Comment on above: Performed By: #### L 100.0100, L500.2500 ####[facility] [address] [place], [address] Potassium [Moles/Vol] 3.5 mmol/L Normal 3.3-5.1 [facility] Comment on above: Performed By: #### L 100.0100, L500.2500 ####[facility] [address] [place], [address] Sodium [Moles/Vol] 141 mmol/L Normal 133-145 [facility] Comment on above: Performed By: #### L 100.0100, L500.2500 ####[facility] [address] [place], [address] Urea nitrogen [Mass/Vol] 62 mg/dL High 4-19 [facility] Comment on above: Performed By: #### L 100.0100, L500.2500 ####[facility] [address] [place], [address] Bedside Glucoseon 08-17-2024 FINGERSTICK GLU 147 mg/dL High 74-106 [facility] Comment on above: Result Comment: ANABELLE BACH OF PATIENT CARE PER NURSING PROTOCOL Performed By: #### L 501.080 ####[facility] [address] [place], [address] FINGERSTICK GLU 112 mg/dL High 74-106 [facility] Comment on above: Result Comment: ANABELLE GEMENT OF PATIENT CARE PER NURSING PROTOCOL Performed By: #### L 501.080 ####[facility] [address] [place], [address] FINGERSTICK GLU 83 mg/dL Normal 74-106 [facility] Comment on above: Result Comment: ANABELLE GEMENT OF PATIENT CARE PER NURSING PROTOCOL Performed By: #### L 501.080 ####[facility] [address] [place], [address] FINGERSTICK GLU 149 mg/dL High 74-106 [facility] Comment on above: Result Comment: ANABELLE GEMENT OF PATIENT CARE PER NURSING PROTOCOL Performed By: #### L 501.080 ####[facility] [address] [place], [address] CBC W/Diff, Automatedon 04-2 SMEAR COMMENT SCANNED Normal [facility] Comment on above: Performed By: #### L 100.0100, L500.2500 ####[facility] [address] [place], [address] CBC-Complete Blood Cnt No Di ffon 08-17-2024 HCT Normal 40-54 [facility] Comment on above: Result Comment: Canc elled via OM: MD Ordered Performed By: #### L 100.0500 ####[facility] [address] [place], [address] Result Comment: CANC ELLATION ORDER Performed By: #### L 100.0500, L500.3600 ####[facility] [address] [place], [address] HGB Normal 13.0-16.5 [facility] Comment on above: Result Comment: Canc elled via OM: MD Ordered Performed By: #### L 100.0500 ####[facility] [address] [place], [address] Result Comment: CANC ELLATION ORDER Performed By: #### L 100.0500, L500.3600 ####[facility] [address] [place], [address] MCH Normal 27.0-32.0 [facility] Comment on above: Result Comment: Canc elled via OM: MD Ordered Performed By: #### L 100.0500 ####[facility] [address] [place], [address] Result Comment: CANC ELLATION ORDER Performed By: #### L 100.0500, L500.3600 ####[facility] [address] [place], [address] MCHC Normal 32-36 [facility] Comment on above: Result Comment: Canc elled via OM: MD Ordered Performed By: #### L 100.0500 ####[facility] [address] [place], [address] Result Comment: CANC ELLATION ORDER Performed By: #### L 100.0500, L500.3600 ####[facility] [address] [place], [address] MCV Normal 80-94 [facility] Comment on above: Result Comment: Canc elled via OM: MD Ordered Performed By: #### L 100.0500 ####[facility] [address] [place], [address] Result Comment: CANC ELLATION ORDER Performed By: #### L 100.0500, L500.3600 ####[facility] [address] [place], [address] PLT Normal 150-450 [facility] Comment on above: Result Comment: Canc elled via OM: MD Ordered Performed By: #### L 100.0500 ####[facility] [address] [place], [address] Result Comment: CANC ELLATION ORDER Performed By: #### L 100.0500, L500.3600 ####[facility] [address] [place], [address] RBC Normal 4.6-6.2 [facility] Comment on above: Result Comment: Canc elled via OM: MD Ordered Performed By: #### L 100.0500 ####[facility] [address] [place], [address] Result Comment: CANC ELLATION ORDER Performed By: #### L 100.0500, L500.3600 ####[facility] [address] [place], [address] RDW CV Normal 11.6-14.6 [facility] Comment on above: Result Comment: Canc elled via OM: MD Ordered Performed By: #### L 100.0500 ####[facility] [address] [place], [address] Result Comment: CANC ELLATION ORDER Performed By: #### L 100.0500, L500.3600 ####[facility] [address] [place], [address] RDW SD Normal 35.1-43.9 [facility] Comment on above: Result Comment: Canc elled via OM: MD Ordered Performed By: #### L 100.0500 ####[facility] [address] [place], [address] Result Comment: CANC ELLATION ORDER Performed By: #### L 100.0500, L500.3600 ####[facility] [address] [place], [address] WBC Normal 4.4-11.0 [facility] Comment on above: Result Comment: Canc elled via OM: Ordered Performed By: #### L 100.0500 ####[facility] [address] [place], [address] Result Comment: CANC ELLATION ORDER Performed By: #### L 100.0500, L500.3600 ####[facility] [address] [place], [address] Erythrocyte distribution width (RBC) [Ratio] 14.7 % High 11.6-14.6 [facility] Comment on above: Performed By: #### L 300.4310, L100.0500, L500.3600, L501.5200 ####[facility] [address] [place], [address] Hematocrit (Bld) [Volume fraction] 24.1 % Low 40-54 [facility] Comment on above: Performed By: #### L 300.4310, L100.0500, L500.3600, L501.5200 ####[facility] [address] [place], [address] Hemoglobin (Bld) [Mass/Vol] 8.2 g/dL Low 13.0-16.5 [facility] Comment on above: Performed By: #### L 300.4310, L100.0500, L500.3600, L501.5200 ####[facility] [address] [place], [address] MCH (RBC) [Entitic mass] 31.1 pg Normal 27.0-32.0 [facility] Comment on above: Performed By: #### L 300.4310, L100.0500, L500.3600, L501.5200 ####[facility] [address] [place], [address] MCHC (RBC) [Mass/Vol] 34.0 g/dL Normal 32-36 [facility] Comment on above: Performed By: #### L 300.4310, L100.0500, L500.3600, L501.5200 ####[facility] [address] [place], [address] MCV (RBC) [Entitic vol] 91.3 fL Normal 80-94 [facility] Comment on above: Performed By: #### L 300.4310, L100.0500, L500.3600, L501.5200 ####[facility] [address] [place], [address] Platelet mean volume (Bld) [Entitic vol] 11.8 fL Normal 6.2-12.0 [facility] Comment on above: Performed By: #### L 300.4310, L100.0500, L500.3600, L501.5200 ####[facility] [address] [place], [address] Platelets (Bld) [#/Vol] 207 10*3/uL Normal 150-450 [facility] Comment on above: Performed By: #### L 300.4310, L100.0500, L500.3600, L501.5200 ####[facility] [address] [place], [address] RBC (Bld) [#/Vol] 2.64 10*6/uL Low 4.6-6.2 [facility] Comment on above: Performed By: #### L 300.4310, L100.0500, L500.3600, L501.5200 ####[facility] [address] [place], [address] RDW SD 49.5 fl High 35.1-43.9 [facility] Comment on above: Performed By: #### L 300.4310, L100.0500, L500.3600, L501.5200 ####[facility] [address] [place], [address] WBC (Bld) [#/Vol] 12.4 10*3/uL High 4.4-11.0 [facility] Comment on above: Performed By: #### L 300.4310, L100.0500, L500.3600, L501.5200 ####[facility] [address] [place], [address] Chest 1 View (Portable)on Chest 1 View (Portable) Normal [facility] Magnesiumon 08-17-2024 Magnesium [Mass/Vol] 1.9 mg/dL Normal 1.5-2.2 [facility] Comment on above: Performed By: #### L 300.4310, L100.0500, L500.3600, L501.5200 ####[facility] [address] [place], [address] Partial Thromboplast Timeon 08-17-2024 aPTT Coag (Bld) [Time] 36.5 s High 24.1-36.2 [facility] Comment on above: Performed By: #### L 300.4310, L100.0500, L500.3600, L501.5200 ####[facility] [address] [place], [address] Renal Profileon 08-17-2024 ALB Normal 3.4-4.8 [facility] Comment on above: Result Comment: OM C ANCEL REQUEST Performed By: #### L 100.0500, L500.3600 ####[facility] [address] [place], [address] BUN Normal 4-19 [facility] Comment on above: Result Comment: OM C ANCEL REQUEST Performed By: #### L 100.0500, L500.3600 ####[facility] [address] [place], [address] BUN/CRE Normal 10-20 [facility] Comment on above: Result Comment: OM C ANCEL REQUEST Performed By: #### L 100.0500, L500.3600 ####[facility] [address] [place], [address] Calcium Normal 7.6-11.0 [facility] Comment on above: Result Comment: OM C ANCEL REQUEST Performed By: #### L 100.0500, L500.3600 ####[facility] [address] [place], [address] CL Normal 98-108 [facility] Comment on above: Result Comment: OM C ANCEL REQUEST Performed By: #### L 100.0500, L500.3600 ####[facility] [address] [place], [address] CO2 Normal 21.0-32.0 [facility] Comment on above: Result Comment: OM C ANCEL REQUEST Performed By: #### L 100.0500, L500.3600 ####[facility] [address] [place], [address] CREAT,SERUM Normal 0.70-1.20 [facility] Comment on above: Result Comment: OM C ANCEL REQUEST Performed By: #### L 100.0500, L500.3600 ####[facility] [address] [place], [address] eGFR Normal >60 [facility] Comment on above: Result Comment: OM C ANCEL REQUEST Performed By: #### L 100.0500, L500.3600 ####[facility] [address] [place], [address] GAP Normal 5-15 [facility] Comment on above: Result Comment: OM C ANCEL REQUEST Performed By: #### L 100.0500, L500.3600 ####[facility] [address] [place], [address] GLU Normal 70-99 [facility] Comment on above: Result Comment: OM C ANCEL REQUEST Performed By: #### L 100.0500, L500.3600 ####[facility] [address] [place], [address] PHOS Normal 2.7-4.5 [facility] Comment on above: Result Comment: OM C ANCEL REQUEST Performed By: #### L 100.0500, L500.3600 ####[facility] [address] [place], [address] Potassium Normal 3.3-5.1 [facility] Comment on above: Result Comment: OM C ANCEL REQUEST Performed By: #### L 100.0500, L500.3600 ####[facility] [address] [place], [address] Renal Profile Normal 133-145 [facility] Comment on above: Result Comment: OM C ANCEL REQUEST Performed By: #### L 100.0500, L500.3600 ####[facility] [address] [place], [address] Albumin [Mass/Vol] 2.4 g/dL Low 3.4-4.8 [facility] Comment on above: Performed By: #### L 300.4310, L100.0500, L500.3600, L501.5200 ####[facility] [address] [place], [address] BUN/CRE 8.6 RATIO Low 10-20 [facility] Comment on above: Performed By: #### L 300.4310, L100.0500, L500.3600, L501.5200 ####[facility] [address] [place], [address] Calcium [Mass/Vol] 6.8 mg/dL Low 7.6-11.0 [facility] Comment on above: Performed By: #### L 300.4310, L100.0500, L500.3600, L501.5200 ####[facility] [address] [place], [address] Chloride [Moles/Vol] 115 mmol/L High 98-108 [facility] Comment on above: Performed By: #### L 300.4310, L100.0500, L500.3600, L501.5200 ####[facility] [address] [place], [address] CO2 [Moles/Vol] 18.3 mmol/L Low 21.0-32.0 [facility] Comment on above: Performed By: #### L 300.4310, L100.0500, L500.3600, L501.5200 ####[facility] [address] [place], [address] Creatinine [Mass/Vol] 7.19 mg/dL High 0.70-1.20 [facility] Comment on above: Performed By: #### L 300.4310, L100.0500, L500.3600, L501.5200 ####[facility] [address] [place], [address] ECRCL 12.08 ml/min Low 50-250 [facility] Comment on above: Performed By: #### L 300.4310, L100.0500, L500.3600, L501.5200 ####[facility] [address] [place], [address] GAP 14 Normal 5-15 [facility] Comment on above: Performed By: #### L 300.4310, L100.0500, L500.3600, L501.5200 ####[facility] [address] [place], [address] GFR/1.73 sq M.predicted among non-blacks MDRD (S/P/Bld) [Vol rate/Area] 8 mL/min/{1.73_m2} Low >60 [facility] Comment on above: Result Comment: mL/m in/1.73m2 CKD-EPI Creatinine Equation (2020) Performed By: #### L 300.4310, L100.0500, L500.3600, L501.5200 ####[facility] [address] [place], [address] Glucose [Mass/Vol] 122 mg/dL High 70-99 [facility] Comment on above: Performed By: #### L 300.4310, L100.0500, L500.3600, L501.5200 ####[facility] [address] [place], [address] Phosphate [Mass/Vol] 3.7 mg/dL Normal 2.7-4.5 [facility] Comment on above: Performed By: #### L 300.4310, L100.0500, L500.3600, L501.5200 ####[facility] [address] [place], [address] Potassium [Moles/Vol] 3.6 mmol/L Normal 3.3-5.1 [facility] Comment on above: Performed By: #### L 300.4310, L100.0500, L500.3600, L501.5200 ####[facility] [address] [place], [address] Sodium [Moles/Vol] 147 mmol/L High 133-145 [facility] Comment on above: Performed By: #### L 300.4310, L100.0500, L500.3600, L501.5200 ####[facility] [address] [place], [address] Urea nitrogen [Mass/Vol] 62 mg/dL High 4-19 [facility] Comment on above: Performed By: #### L 300.4310, L100.0500, L500.3600, L501.5200 ####[facility] [address] [place], [address] Basic Metabolic Profile (BMP )on 08-16-2024 BUN/CRE 9.0 RATIO Low 10-20 [facility] Comment on above: Performed By: #### L 500.2500, L100.0100 ####[facility] [address] [place], [address] Calcium [Mass/Vol] 6.9 mg/dL Low 7.6-11.0 [facility] Comment on above: Performed By: #### L 500.2500, L100.0100 ####[facility] [address] [place], [address] Chloride [Moles/Vol] 108 mmol/L Normal 98-108 [facility] Comment on above: Performed By: #### L 500.2500, L100.0100 ####[facility] [address] [place], [address] CO2 [Moles/Vol] 20.7 mmol/L Low 21.0-32.0 [facility] Comment on above: Performed By: #### L 500.2500, L100.0100 ####[facility] [address] [place], [address] Creatinine [Mass/Vol] 6.20 mg/dL High 0.70-1.20 [facility] Comment on above: Performed By: #### L 500.2500, L100.0100 ####[facility] [address] [place], [address] ECRCL 13.91 ml/min Low 50-250 [facility] Comment on above: Performed By: #### L 500.2500, L100.0100 ####[facility] [address] [place], [address] GAP 12 Normal 5-15 [facility] Comment on above: Performed By: #### L 500.2500, L100.0100 ####[facility] [address] [place], [address] GFR/1.73 sq M.predicted among non-blacks MDRD (S/P/Bld) [Vol rate/Area] 9 mL/min/{1.73_m2} Low >60 [facility] Comment on above: Result Comment: mL/m in/1.73m2 CKD-EPI Creatinine Equation (2020) Performed By: #### L 500.2500, L100.0100 ####[facility] [address] [place], [address] Glucose [Mass/Vol] 173 mg/dL High 70-99 [facility] Comment on above: Performed By: #### L 500.2500, L100.0100 ####[facility] [address] [place], [address] Potassium [Moles/Vol] 3.5 mmol/L Normal 3.3-5.1 [facility] Comment on above: Performed By: #### L 500.2500, L100.0100 ####[facility] [address] [place], [address] Sodium [Moles/Vol] 141 mmol/L Normal 133-145 [facility] Comment on above: Performed By: #### L 500.2500, L100.0100 ####[facility] [address] [place], [address] Urea nitrogen [Mass/Vol] 56 mg/dL High 4-19 [facility] Comment on above: Performed By: #### L 500.2500, L100.0100 ####[facility] [address] [place], [address] Bedside Glucoseon 08-16-2024 FINGERSTICK GLU 172 mg/dL High 74-106 [facility] Comment on above: Result Comment: ANABELLE GEMENT OF PATIENT CARE PER NURSING PROTOCOL Performed By: #### L 501.080 ####[facility] [address] [place], [address] FINGERSTICK GLU 155 mg/dL High 74-106 [facility] Comment on above: Result Comment: ANABELLE GEMENT OF PATIENT CARE PER NURSING PROTOCOL Performed By: #### L 501.080 ####[facility] [address] [place], [address] FINGERSTICK GLU 216 mg/dL High 74-106 [facility] Comment on above: Result Comment: ANABELLE GEMENT OF PATIENT CARE PER NURSING PROTOCOL Performed By: #### L 501.080 ####[facility] [address] [place], [address] FINGERSTICK GLU 178 mg/dL High 74-106 [facility] Comment on above: Result Comment: ANABELLE GEMENT OF PATIENT CARE PER NURSING PROTOCOL Performed By: #### L 501.080 ####[facility] [address] [place], [address] CBC W/Diff, Automatedon 04-2 0-2025 Absolute Lymph 0.86 X10 3/uL Normal 0.83-4.51 [facility] Comment on above: Performed By: #### L 500.2500, L100.0100 ####[facility] [address] [place], [address] Absolute Neut 10.3 X10 3/uL High 2.0-7.7 [facility] Comment on above: Performed By: #### L 500.2500, L100.0100 ####[facility] [address] [place], [address] Basophils/100 WBC (Bld) 0.2 % Normal 0-1 [facility] Comment on above: Performed By: #### L 500.2500, L100.0100 ####[facility] [address] [place], [address] Eosinophils/100 WBC (Bld) 2.1 % Normal 0-5 [facility] Comment on above: Performed By: #### L 500.2500, L100.0100 ####[facility] [address] [place], [address] Erythrocyte distribution width (RBC) [Ratio] 14.6 % Normal 11.6-14.6 [facility] Comment on above: Performed By: #### L 500.2500, L100.0100 ####[facility] [address] [place], [address] Hematocrit (Bld) [Volume fraction] 24.6 % Low 40-54 [facility] Comment on above: Performed By: #### L 500.2500, L100.0100 ####[facility] [address] [place], [address] Hemoglobin (Bld) [Mass/Vol] 8.3 g/dL Low 13.0-16.5 [facility] Comment on above: Performed By: #### L 500.2500, L100.0100 ####[facility] [address] [place], [address] IG% 1.900 High 0.0-0.9 [facility] Comment on above: Result Comment: IG% - Immature Granulocytes (promyelocytes, myelocytes andmetamyelocytes) > 1% indicates that a LEFT SHIFT is Present. Performed By: #### L 500.2500, L100.0100 ####[facility] [address] [place], [address] Lymphocytes/100 WBC (Bld) 6.6 % Low 19-41 [facility] Comment on above: Performed By: #### L 500.2500, L100.0100 ####[facility] [address] [place], [address] MCH (RBC) [Entitic mass] 30.5 pg Normal 27.0-32.0 [facility] Comment on above: Performed By: #### L 500.2500, L100.0100 ####[facility] [address] [place], [address] MCHC (RBC) [Mass/Vol] 33.7 g/dL Normal 32-36 [facility] Comment on above: Performed By: #### L 500.2500, L100.0100 ####[facility] [address] [place], [address] MCV (RBC) [Entitic vol] 90.4 fL Normal 80-94 [facility] Comment on above: Performed By: #### L 500.2500, L100.0100 ####[facility] [address] [place], [address] Monocytes/100 WBC (Bld) 10.3 % High 0-10 [facility] Comment on above: Performed By: #### L 500.2500, L100.0100 ####[facility] [address] [place], [address] Neutrophils/100 WBC (Bld) 78.9 % High 47-70 [facility] Comment on above: Performed By: #### L 500.2500, L100.0100 ####[facility] [address] [place], [address] Nucleated RBC (Bld) [#/Vol] 0 10*3/uL Normal 0-5 [facility] Comment on above: Performed By: #### L 500.2500, L100.0100 ####[facility] [address] [place], [address] Platelet mean volume (Bld) [Entitic vol] 12.3 fL High 6.2-12.0 [facility] Comment on above: Performed By: #### L 500.2500, L100.0100 ####[facility] [address] [place], [address] Platelets (Bld) [#/Vol] 109 10*3/uL Low 150-450 [facility] Comment on above: Performed By: #### L 500.2500, L100.0100 ####[facility] [address] [place], [address] RBC (Bld) [#/Vol] 2.72 10*6/uL Low 4.6-6.2 [facility] Comment on above: Performed By: #### L 500.2500, L100.0100 ####[facility] [address] [place], [address] RDW SD 48.6 fl High 35.1-43.9 [facility] Comment on above: Performed By: #### L 500.2500, L100.0100 ####[facility] [address] [place], [address] WBC (Bld) [#/Vol] 13.1 10*3/uL High 4.4-11.0 [facility] Comment on above: Performed By: #### L 500.2500, L100.0100 ####[facility] [address] [place], [address] Assessment of wrist artery p atency prior to arterial punctureOrdered By: Brandon Medrano on 08-15-2024 Arterial patency Wrist artery --pre arterial puncture N/A [facility] Bedside Glucoseon 08-15-2024 FINGERSTICK GLU 156 mg/dL High 74-106 [facility] Comment on above: Result Comment: ANABELLE BACH OF PATIENT CARE PER NURSING PROTOCOL Performed By: #### L 501.080 ####[facility] [address] [place], [address] FINGERSTICK GLU 109 mg/dL High 74-106 [facility] Comment on above: Result Comment: ANABELLE GEMENT OF PATIENT CARE PER NURSING PROTOCOL Performed By: #### L 501.080 ####[facility] [address] [place], [address] FINGERSTICK GLU 101 mg/dL Normal 74-106 [facility] Comment on above: Result Comment: ANABELLE GEMENT OF PATIENT CARE PER NURSING PROTOCOL Performed By: #### L 501.080 ####[facility] [address] [place], [address] FINGERSTICK GLU 109 mg/dL High 74-106 [facility] Comment on above: Result Comment: ANABELLE GEMENT OF PATIENT CARE PER NURSING PROTOCOL Performed By: #### L 501.080 ####[facility] [address] [place], [address] FINGERSTICK GLU 221 mg/dL High 74-106 [facility] Comment on above: Result Comment: ANABELLE GEMENT OF PATIENT CARE PER NURSING PROTOCOL Performed By: #### L 501.080 ####[facility] [address] [place], [address] FINGERSTICK GLU 83 mg/dL Normal 74-106 [facility] Comment on above: Result Comment: ANABELLE GEMENT OF PATIENT CARE PER NURSING PROTOCOL Performed By: #### L 501.080 ####[facility] [address] [place], [address] Blood Gases by [facility] 025 ANTONIO TEST N/A Normal [facility] Comment on above: Performed By: #### L 9000.0800 ####[facility] [address] [place], [address] Base excess Calc (Bld) [Moles/Vol] -4 mmol/L Low -2 to +2 [facility] Comment on above: Performed By: #### L 9000.0800 ####[facility] [address] [place], [address] Blood Gas Type ART Normal [facility] Comment on above: Performed By: #### L 9000.0800 ####[facility] [address] [place], [address] CO2 [Moles/Vol] 21 mmol/L Normal [facility] Comment on above: Performed By: #### L 9000.0800 ####[facility] [address] [place], [address] FI02 35.0 Normal [facility] Comment on above: Performed By: #### L 9000.0800 ####[facility] [address] [place], [address] HCO3 (Bld) [Moles/Vol] 19.8 mmol/L Low 22-26 [facility] Comment on above: Performed By: #### L 9000.0800 ####[facility] [address] [place], [address] Mode AC Normal [facility] Comment on above: Performed By: #### L 9000.0800 ####[facility] [address] [place], [address] O2 Delivery Dev Adult Vent Normal [facility] Comment on above: Performed By: #### L 9000.0800 ####[facility] [address] [place], [address] pCO2 28.3 mmHg Low 35-45 [facility] Comment on above: Performed By: #### L 9000.0800 ####[facility] [address] [place], [address] PEEP 5 Normal [facility] Comment on above: Performed By: #### L 9000.0800 ####[facility] [address] [place], [address] pH (Bld) 7.45 [pH] Normal 7.35-7.45 [facility] Comment on above: Performed By: #### L 9000.0800 ####[facility] [address] [place], [address] PO2 60 mmHG Low 75-100 [facility] Comment on above: Performed By: #### L 9000.0800 ####[facility] [address] [place], [address] RR 18 Normal [facility] Comment on above: Performed By: #### L 9000.0800 ####[facility] [address] [place], [address] SITE R Radial Normal [facility] Comment on above: Performed By: #### L 9000.0800 ####[facility] [address] [place], [address] SO2 92 Low 95-99 [facility] Comment on above: Performed By: #### L 9000.0800 ####[facility] [address] [place], [address] Vt 500.0 mL Normal [facility] Comment on above: Performed By: #### L 9000.0800 ####[facility] [address] [place], [address] Blood base excess determinat ionOrdered By: Brandon Medrano on 08-15-2024 Base excess Calc (BldV) [Moles/Vol] -4 mmol/L Low -2-2 [facility] Blood bicarbonate measuremen tOrdered By: Brandon Medrano on 08-15-2024 HCO3 (Bld) [Moles/Vol] 19.8 mmol/L Low 22-26 [facility] CBC W/Diff, Automatedon 07-28 Absolute Lymph 1.17 X10 3/uL Normal 0.83-4.51 [facility] Comment on above: Performed By: #### L 500.4050, L100.0100 ####[facility] [address] [place], [address] Absolute Neut 17.4 X10 3/uL High 2.0-7.7 [facility] Comment on above: Performed By: #### L 500.4050, L100.0100 ####[facility] [address] [place], [address] Basophils/100 WBC (Bld) 0.3 % Normal 0-1 [facility] Comment on above: Performed By: #### L 500.4050, L100.0100 ####[facility] [address] [place], [address] Eosinophils/100 WBC (Bld) 1.1 % Normal 0-5 [facility] Comment on above: Performed By: #### L 500.4050, L100.0100 ####[facility] [address] [place], [address] Erythrocyte distribution width (RBC) [Ratio] 14.6 % Normal 11.6-14.6 [facility] Comment on above: Performed By: #### L 500.4050, L100.0100 ####[facility] [address] [place], [address] Hematocrit (Bld) [Volume fraction] 27.2 % Low 40-54 [facility] Comment on above: Performed By: #### L 500.4050, L100.0100 ####[facility] [address] [place], [address] Hemoglobin (Bld) [Mass/Vol] 9.3 g/dL Low 13.0-16.5 [facility] Comment on above: Performed By: #### L 500.4050, L100.0100 ####[facility] [address] [place], [address] IG% 0.700 Normal 0.0-0.9 [facility] Comment on above: Result Comment: IG% - Immature Granulocytes (promyelocytes, myelocytes andmetamyelocytes) > 1% indicates that a LEFT SHIFT is Present. Performed By: #### L 500.4050, L100.0100 ####[facility] [address] [place], [address] Lymphocytes/100 WBC (Bld) 5.9 % Low 19-41 [facility] Comment on above: Performed By: #### L 500.4050, L100.0100 ####[facility] [address] [place], [address] MCH (RBC) [Entitic mass] 30.8 pg Normal 27.0-32.0 [facility] Comment on above: Performed By: #### L 500.4050, L100.0100 ####[facility] [address] [place], [address] MCHC (RBC) [Mass/Vol] 34.2 g/dL Normal 32-36 [facility] Comment on above: Performed By: #### L 500.4050, L100.0100 ####[facility] [address] [place], [address] MCV (RBC) [Entitic vol] 90.1 fL Normal 80-94 [facility] Comment on above: Performed By: #### L 500.4050, L100.0100 ####[facility] [address] [place], [address] Monocytes/100 WBC (Bld) 4.7 % Normal 0-10 [facility] Comment on above: Performed By: #### L 500.4050, L100.0100 ####[facility] [address] [place], [address] Neutrophils/100 WBC (Bld) 87.3 % High 47-70 [facility] Comment on above: Performed By: #### L 500.4050, L100.0100 ####[facility] [address] [place], [address] Nucleated RBC (Bld) [#/Vol] 0 10*3/uL Normal 0-5 [facility] Comment on above: Performed By: #### L 500.4050, L100.0100 ####[facility] [address] [place], [address] Platelet mean volume (Bld) [Entitic vol] 12.4 fL High 6.2-12.0 [facility] Comment on above: Performed By: #### L 500.4050, L100.0100 ####[facility] [address] [place], [address] Platelets (Bld) [#/Vol] 120 10*3/uL Low 150-450 [facility] Comment on above: Performed By: #### L 500.4050, L100.0100 ####[facility] [address] [place], [address] RBC (Bld) [#/Vol] 3.02 10*6/uL Low 4.6-6.2 [facility] Comment on above: Performed By: #### L 500.4050, L100.0100 ####[facility] [address] [place], [address] RDW SD 48.3 fl High 35.1-43.9 [facility] Comment on above: Performed By: #### L 500.4050, L100.0100 ####[facility] [address] [place], [address] WBC (Bld) [#/Vol] 19.9 10*3/uL High 4.4-11.0 [facility] Comment on above: Performed By: #### L 500.4050, L100.0100 ####[facility] [address] [place], [address] Chest 1 View (Portable)on Chest 1 View (Portable) Normal [facility] Comprehensive Metabolic Prof ilon 08-15-2024 Albumin [Mass/Vol] 2.4 g/dL Low 3.4-4.8 [facility] Comment on above: Performed By: #### L 500.4050, L100.0100 ####[facility] [address] [place], [address] Albumin/Globulin [Mass ratio] 0.8 {ratio} Low 0.9-2.4 [facility] Comment on above: Performed By: #### L 500.4050, L100.0100 ####[facility] [address] [place], [address] ALK PHOS 128 U/L Normal 40-129 [facility] Comment on above: Performed By: #### L 500.4050, L100.0100 ####[facility] [address] [place], [address] ALT [Catalytic activity/Vol] 76 U/L High <=46 [facility] Comment on above: Performed By: #### L 500.4050, L100.0100 ####[facility] [address] [place], [address] AST [Catalytic activity/Vol] 236 U/L High <=37 [facility] Comment on above: Performed By: #### L 500.4050, L100.0100 ####[facility] [address] [place], [address] Bilirubin [Mass/Vol] 0.17 mg/dL Normal 0.00-1.30 [facility] Comment on above: Performed By: #### L 500.4050, L100.0100 ####[facility] [address] [place], [address] BUN/CRE 9.6 RATIO Low 10-20 [facility] Comment on above: Performed By: #### L 500.4050, L100.0100 ####[facility] [address] [place], [address] Calcium [Mass/Vol] 6.9 mg/dL Low 7.6-11.0 [facility] Comment on above: Performed By: #### L 500.4050, L100.0100 ####[facility] [address] [place], [address] Chloride [Moles/Vol] 110 mmol/L High 98-108 [facility] Comment on above: Performed By: #### L 500.4050, L100.0100 ####[facility] [address] [place], [address] CO2 [Moles/Vol] 18.7 mmol/L Low 21.0-32.0 [facility] Comment on above: Performed By: #### L 500.4050, L100.0100 ####[facility] [address] [place], [address] Creatinine [Mass/Vol] 6.56 mg/dL High 0.70-1.20 [facility] Comment on above: Performed By: #### L 500.4050, L100.0100 ####[facility] [address] [place], [address] ECRCL 13.03 ml/min Low 50-250 [facility] Comment on above: Performed By: #### L 500.4050, L100.0100 ####[facility] [address] [place], [address] GAP 14 Normal 5-15 [facility] Comment on above: Performed By: #### L 500.4050, L100.0100 ####[facility] [address] [place], [address] GFR/1.73 sq M.predicted among non-blacks MDRD (S/P/Bld) [Vol rate/Area] 9 mL/min/{1.73_m2} Low >60 [facility] Comment on above: Result Comment: mL/m in/1.73m2 CKD-EPI Creatinine Equation (2020) Performed By: #### L 500.4050, L100.0100 ####[facility] [address] [place], [address] Globulin (S) [Mass/Vol] 3.0 g/dL Normal 2.2-4.2 [facility] Comment on above: Performed By: #### L 500.4050, L100.0100 ####[facility] [address] [place], [address] Glucose [Mass/Vol] 118 mg/dL High 70-99 [facility] Comment on above: Performed By: #### L 500.4050, L100.0100 ####[facility] [address] [place], [address] Potassium [Moles/Vol] 3.4 mmol/L Normal 3.3-5.1 [facility] Comment on above: Performed By: #### L 500.4050, L100.0100 ####[facility] [address] [place], [address] Sodium [Moles/Vol] 142 mmol/L Normal 133-145 [facility] Comment on above: Performed By: #### L 500.4050, L100.0100 ####[facility] [address] [place], [address] T PROT 5.4 g/dL Low 5.9-8.4 [facility] Comment on above: Performed By: #### L 500.4050, L100.0100 ####[facility] [address] [place], [address] Urea nitrogen [Mass/Vol] 63 mg/dL High - [facility] Comment on above: Performed By: #### L 500.4050, L100.0100 ####[facility] [address] [place], [address] Echo Completeon 08-15-2024 Echo Complete Normal [facility] Measurement, pHOrdered By: Diego Medrano on 08-15-2024 pH (Unsp spec) 7.45 [pH] 7.35-7.45 [facility] No Panel InformationOrdered By: Brandon Medrano on 08-15-2024 ART [facility] R Radial [facility] AC [facility] Adult Vent [facility] 500.0 mL [facility] 18 [facility] 5 [facility] Serum or plasma albumin/glob ulin mass ratioOrdered By: Brandon Medrano on 08-15-2024 Albumin/Globulin [Mass ratio] 0.8 {ratio} Low 0.9-2.4 [facility] Total carbon dioxide measure mentOrdered By: Brandon Medrano on 08-15-2024 CO2 [Moles/Vol] 21 mmol/L [facility] Basic Metabolic Profile (BMP )on 08-14-2024 BUN Normal 08-15 [facility] Comment on above: Result Comment: Canc elled via OM: MD Ordered Performed By: #### L 500.2500, L100.0100 ####[facility] [address] [place], [address] BUN/CRE Normal - [facility] Comment on above: Result Comment: Canc elled via OM: MD Ordered Performed By: #### L 500.2500, L100.0100 ####[facility] [address] [place], [address] Calcium Normal 7.6-11.0 [facility] Comment on above: Result Comment: Canc elled via OM: MD Ordered Performed By: #### L 500.2500, L100.0100 ####[facility] [address] [place], [address] CL Normal 98-108 [facility] Comment on above: Result Comment: Canc elled via OM: MD Ordered Performed By: #### L 500.2500, L100.0100 ####[facility] [address] [place], [address] CO2 Normal 21.0-32.0 [facility] Comment on above: Result Comment: Canc elled via OM: MD Ordered Performed By: #### L 500.2500, L100.0100 ####[facility] [address] [place], [address] CREAT,SERUM Normal 0.70-1.20 [facility] Comment on above: Result Comment: Canc elled via OM: MD Ordered Performed By: #### L 500.2500, L100.0100 ####[facility] [address] [place], [address] eGFR Normal >60 [facility] Comment on above: Result Comment: Canc elled via OM: MD Ordered Performed By: #### L 500.2500, L100.0100 ####[facility] [address] [place], [address] GAP Normal 5-15 [facility] Comment on above: Result Comment: Canc elled via OM: MD Ordered Performed By: #### L 500.2500, L100.0100 ####[facility] [address] [place], [address] GLU Normal 70-99 [facility] Comment on above: Result Comment: Canc elled via OM: MD Ordered Performed By: #### L 500.2500, L100.0100 ####[facility] [address] [place], [address] Potassium Normal 3.3-5.1 [facility] Comment on above: Result Comment: Canc elled via OM: MD Ordered Performed By: #### L 500.2500, L100.0100 ####[facility] [address] [place], [address] Basic Metabolic Profile (BMP) Normal 133-145 [facility] Comment on above: Result Comment: Caneunice elled via OM: MD Ordered Performed By: #### L 500.2500, L100.0100 ####[facility] [address] [place], [address] Bedside Glucoseon 08-14-2024 FINGERSTICK GLU 70 mg/dL Low 74-106 [facility] Comment on above: Result Comment: ANABELLE GEMENT OF PATIENT CARE PER NURSING PROTOCOL Performed By: #### L 501.080 ####[facility] [address] [place], [address] FINGERSTICK GLU 80 mg/dL Normal 74-106 [facility] Comment on above: Result Comment: ANABELLE GEMENT OF PATIENT CARE PER NURSING PROTOCOL Performed By: #### L 501.080 ####[facility] [address] [place], [address] CBC W/Diff, Automatedon 07-28 Absolute Lymph 1.37 X10 3/uL Normal 0.83-4.51 [facility] Comment on above: Performed By: #### L 500.2500, L100.0100 ####[facility] [address] [place], [address] Absolute Neut 18.3 X10 3/uL High 2.0-7.7 [facility] Comment on above: Performed By: #### L 500.2500, L100.0100 ####[facility] [address] [place], [address] Basophils/100 WBC (Bld) 0.2 % Normal 0-1 [facility] Comment on above: Performed By: #### L 500.2500, L100.0100 ####[facility] [address] [place], [address] Eosinophils/100 WBC (Bld) 0.3 % Normal 0-5 [facility] Comment on above: Performed By: #### L 500.2500, L100.0100 ####[facility] [address] [place], [address] Erythrocyte distribution width (RBC) [Ratio] 14.6 % Normal 11.6-14.6 [facility] Comment on above: Performed By: #### L 500.2500, L100.0100 ####[facility] [address] [place], [address] Hematocrit (Bld) [Volume fraction] 28.6 % Low 40-54 [facility] Comment on above: Performed By: #### L 500.2500, L100.0100 ####[facility] [address] [place], [address] Hemoglobin (Bld) [Mass/Vol] 9.8 g/dL Low 13.0-16.5 [facility] Comment on above: Performed By: #### L 500.2500, L100.0100 ####[facility] [address] [place], [address] IG% 0.500 Normal 0.0-0.9 [facility] Comment on above: Result Comment: IG% - Immature Granulocytes (promyelocytes, myelocytes andmetamyelocytes) > 1% indicates that a LEFT SHIFT is Present. Performed By: #### L 500.2500, L100.0100 ####[facility] [address] [place], [address] Lymphocytes/100 WBC (Bld) 6.7 % Low 19-41 [facility] Comment on above: Performed By: #### L 500.2500, L100.0100 ####[facility] [address] [place], [address] MCH (RBC) [Entitic mass] 31.0 pg Normal 27.0-32.0 [facility] Comment on above: Performed By: #### L 500.2500, L100.0100 ####[facility] [address] [place], [address] MCHC (RBC) [Mass/Vol] 34.3 g/dL Normal 32-36 [facility] Comment on above: Performed By: #### L 500.2500, L100.0100 ####[facility] [address] [place], [address] MCV (RBC) [Entitic vol] 90.5 fL Normal 80-94 [facility] Comment on above: Performed By: #### L 500.2500, L100.0100 ####[facility] [address] [place], [address] Monocytes/100 WBC (Bld) 2.6 % Normal 0-10 [facility] Comment on above: Performed By: #### L 500.2500, L100.0100 ####[facility] [address] [place], [address] Neutrophils/100 WBC (Bld) 89.7 % High 47-70 [facility] Comment on above: Performed By: #### L 500.2500, L100.0100 ####[facility] [address] [place], [address] Nucleated RBC (Bld) [#/Vol] 0 10*3/uL Normal 0-5 [facility] Comment on above: Performed By: #### L 500.2500, L100.0100 ####[facility] [address] [place], [address] Platelet mean volume (Bld) [Entitic vol] 12.0 fL Normal 6.2-12.0 [facility] Comment on above: Performed By: #### L 500.2500, L100.0100 ####[facility] [address] [place], [address] Platelets (Bld) [#/Vol] 127 10*3/uL Low 150-450 [facility] Comment on above: Performed By: #### L 500.2500, L100.0100 ####[facility] [address] [place], [address] RBC (Bld) [#/Vol] 3.16 10*6/uL Low 4.6-6.2 [facility] Comment on above: Performed By: #### L 500.2500, L100.0100 ####[facility] [address] [place], [address] RDW SD 49.1 fl High 35.1-43.9 [facility] Comment on above: Performed By: #### L 500.2500, L100.0100 ####[facility] [address] [place], [address] WBC (Bld) [#/Vol] 20.4 10*3/uL High 4.4-11.0 [facility] Comment on above: Performed By: #### L 500.2500, L100.0100 ####[facility] [address] [place], [address] Comprehensive Metabolic Prof [facility] 08-14-2024 Albumin [Mass/Vol] 2.5 g/dL Low 3.4-4.8 [facility] Comment on above: Performed By: #### L 500.4050 ####[facility] [address] [place], [address] Albumin/Globulin [Mass ratio] 0.9 {ratio} Normal 0.9-2.4 [facility] Comment on above: Performed By: #### L 500.4050 ####[facility] [address] [place], [address] ALK PHOS 112 U/L Normal 40-129 [facility] Comment on above: Performed By: #### L 500.4050 ####[facility] [address] [place], [address] ALT [Catalytic activity/Vol] 80 U/L High <=46 [facility] Comment on above: Performed By: #### L 500.4050 ####[facility] [address] [place], [address] AST [Catalytic activity/Vol] 230 U/L High <=37 [facility] Comment on above: Performed By: #### L 500.4050 ####[facility] [address] [place], [address] Bilirubin [Mass/Vol] 0.17 mg/dL Normal 0.00-1.30 [facility] Comment on above: Performed By: #### L 500.4050 ####[facility] [address] [place], [address] BUN/CRE 10.7 RATIO Normal 10-20 [facility] Comment on above: Performed By: #### L 500.4050 ####[facility] [address] [place], [address] Calcium [Mass/Vol] 7.2 mg/dL Low 7.6-11.0 [facility] Comment on above: Performed By: #### L 500.4050 ####[facility] [address] [place], [address] Chloride [Moles/Vol] 111 mmol/L High 98-108 [facility] Comment on above: Performed By: #### L 500.4050 ####[facility] [address] [place], [address] CO2 [Moles/Vol] 18.6 mmol/L Low 21.0-32.0 [facility] Comment on above: Performed By: #### L 500.4050 ####[facility] [address] [place], [address] Creatinine [Mass/Vol] 7.25 mg/dL High 0.70-1.20 [facility] Comment on above: Performed By: #### L 500.4050 ####[facility] [address] [place], [address] ECRCL 10.85 ml/min Low 50-250 [facility] Comment on above: Performed By: #### L 500.4050 ####[facility] [address] [place], [address] GAP 15 Normal 5-15 [facility] Comment on above: Performed By: #### L 500.4050 ####[facility] [address] [place], [address] GFR/1.73 sq M.predicted among non-blacks MDRD (S/P/Bld) [Vol rate/Area] 8 mL/min/{1.73_m2} Low >60 [facility] Comment on above: Result Comment: mL/m in/1.73m2 CKD-EPI Creatinine Equation (2020) Performed By: #### L 500.4050 ####[facility] [address] [place], [address] Globulin (S) [Mass/Vol] 2.7 g/dL Normal 2.2-4.2 [facility] Comment on above: Performed By: #### L 500.4050 ####[facility] [address] [place], [address] Glucose [Mass/Vol] 233 mg/dL High 70-99 [facility] Comment on above: Performed By: #### L 500.4050 ####[facility] [address] [place], [address] Potassium [Moles/Vol] 4.1 mmol/L Normal 3.3-5.1 [facility] Comment on above: Performed By: #### L 500.4050 ####[facility] [address] [place], [address] Sodium [Moles/Vol] 144 mmol/L Normal 133-145 [facility] Comment on above: Performed By: #### L 500.4050 ####[facility] [address] [place], [address] T PROT 5.1 g/dL Low 5.9-8.4 [facility] Comment on above: Performed By: #### L 500.4050 ####[facility] [address] [place], [address] Urea nitrogen [Mass/Vol] 77 mg/dL High 4-19 [facility] Comment on above: Performed By: #### L 500.4050 ####[facility] [address] [place], [address] ERCP Biliary/Pancreason - ERCP Biliary/Pancreas Normal [facility] ERCP Reporton 08-14-2024 ERCP Report Normal [facility] MR/POSTOP.ANEon 08-14-2024 MR/POSTOP.ANE Normal [facility] Procedure Reporton Procedure Report Normal [facility] Basic Metabolic Profile (BMP )on 08-13-2024 BUN/CRE 11.4 RATIO Normal 10-20 [facility] Comment on above: Performed By: #### L 501.5200, L500.2500, L100.0100 ####[facility] [address] [place], [address] Calcium [Mass/Vol] 7.0 mg/dL Low 7.6-11.0 [facility] Comment on above: Performed By: #### L 501.5200, L500.2500, L100.0100 ####[facility] [address] [place], [address] Chloride [Moles/Vol] 109 mmol/L High 98-108 [facility] Comment on above: Performed By: #### L 501.5200, L500.2500, L100.0100 ####[facility] [address] [place], [address] CO2 [Moles/Vol] 18.3 mmol/L Low 21.0-32.0 [facility] Comment on above: Performed By: #### L 501.5200, L500.2500, L100.0100 ####[facility] [address] [place], [address] Creatinine [Mass/Vol] 6.21 mg/dL High 0.70-1.20 [facility] Comment on above: Performed By: #### L 501.5200, L500.2500, L100.0100 ####[facility] [address] [place], [address] ECRCL 12.67 ml/min Low 50-250 [facility] Comment on above: Performed By: #### L 501.5200, L500.2500, L100.0100 ####[facility] [address] [place], [address] GAP 15 Normal 5-15 [facility] Comment on above: Performed By: #### L 501.5200, L500.2500, L100.0100 ####[facility] [address] [place], [address] GFR/1.73 sq M.predicted among non-blacks MDRD (S/P/Bld) [Vol rate/Area] 9 mL/min/{1.73_m2} Low >60 [facility] Comment on above: Result Comment: mL/m in/1.73m2 CKD-EPI Creatinine Equation (2020) Performed By: #### L 501.5200, L500.2500, L100.0100 ####[facility] [address] [place], [address] Glucose [Mass/Vol] 333 mg/dL High 70-99 [facility] Comment on above: Performed By: #### L 501.5200, L500.2500, L100.0100 ####[facility] [address] [place], [address] Potassium [Moles/Vol] 4.7 mmol/L Normal 3.3-5.1 [facility] Comment on above: Performed By: #### L 501.5200, L500.2500, L100.0100 ####[facility] [address] [place], [address] Sodium [Moles/Vol] 142 mmol/L Normal 133-145 [facility] Comment on above: Performed By: #### L 501.5200, L500.2500, L100.0100 ####[facility] [address] [place], [address] Urea nitrogen [Mass/Vol] 71 mg/dL High 4-19 [facility] Comment on above: Performed By: #### L 501.5200, L500.2500, L100.0100 ####[facility] [address] [place], [address] Bedside Glucoseon 08-13-2024 FINGERSTICK GLU 279 mg/dL High 74-106 [facility] Comment on above: Result Comment: ANABELLE BACH OF PATIENT CARE PER NURSING PROTOCOL Performed By: #### L 501.080 ####[facility] [address] [place], [address] FINGERSTICK GLU 277 mg/dL High 74-106 [facility] Comment on above: Result Comment: Dr Olu de jesus FollowedInsulin GivenMANAGEMENT OF PATIENT CARE PER NURSING PROTOCOL Performed By: #### L 501.080 ####[facility] [address] [place], [address] FINGERSTICK GLU 293 mg/dL High 74-106 [facility] Comment on above: Result Comment: ANABELLE GEMENT OF PATIENT CARE PER NURSING PROTOCOL Performed By: #### L 501.080 ####[facility] [address] [place], [address] FINGERSTICK GLU 343 mg/dL High 74-106 [facility] Comment on above: Result Comment: ANABELLE GEMENT OF PATIENT CARE PER NURSING PROTOCOL Performed By: #### L 501.080 ####[facility] [address] [place], [address] Blood Gases by [facility] 025 ANTONIO TEST Positive Normal [facility] Comment on above: Performed By: #### L 9000.0800 ####[facility] [address] [place], [address] Base excess Calc (Bld) [Moles/Vol] -7 mmol/L Low -2 to +2 [facility] Comment on above: Performed By: #### L 9000.0800 ####[facility] [address] [place], [address] Blood Gas Type ART Normal [facility] Comment on above: Performed By: #### L 9000.0800 ####[facility] [address] [place], [address] CO2 [Moles/Vol] 18 mmol/L Normal [facility] Comment on above: Performed By: #### L 9000.0800 ####[facility] [address] [place], [address] FI02 25.0 Normal [facility] Comment on above: Performed By: #### L 9000.0800 ####[facility] [address] [place], [address] HCO3 (Bld) [Moles/Vol] 17.2 mmol/L Low 22-26 [facility] Comment on above: Performed By: #### L 8999.0800 ####[facility] [address] [place], [address] Mode AC Normal [facility] Comment on above: Performed By: #### L 8999.08 ####[facility] [address] [place], [address] O2 Delivery Dev Adult Vent Normal [facility] Comment on above: Performed By: #### L 8999.08 ####[facility] [address] [place], [address] pCO2 26.3 mmHg Low 35-45 [facility] Comment on above: Performed By: #### L 0.08 ####[facility] [address] [place], [address] PEEP 5 Normal [facility] Comment on above: Performed By: #### L 8999.0800 ####[facility] [address] [place], [address] pH (Bld) 7.42 [pH] Normal 7.35-7.45 [facility] Comment on above: Performed By: #### L 8999.08 ####[facility] [address] [place], [address] PO2 69 mmHG Low 75-100 [facility] Comment on above: Performed By: #### L 0.0800 ####[facility] [address] [place], [address] RR 18 Normal [facility] Comment on above: Performed By: #### L 8999.08 ####[facility] [address] [place], [address] SITE R Radial Normal [facility] Comment on above: Performed By: #### L 0.0800 ####[facility] [address] [place], [address] SO2 94 Low 95-99 [facility] Comment on above: Performed By: #### L 9000.0800 ####[facility] [address] [place], [address] Vt 500.0 mL Normal [facility] Comment on above: Performed By: #### L 9000.0800 ####[facility] [address] [place], [address] CBC W/Diff, Automatedon 04- SMEAR COMMENT Normal [facility] Comment on above: Result Comment: BAND S NOTED Performed By: #### L 501.5200, L500.2500, L100.0100 ####[facility] [address] [place], [address] Culture, Blood (WB)on 2024 CUB Call with results STAT No growth in 5 days. Normal [facility] Comment on above: Performed By: #### L 506.0200, L503.0106, L501.3620, L500.4050, L503.6005, L501.9520, L501.5200, M200.1000 ####[facility] [address] [place], [address] Magnesiumon 08-13-2024 Magnesium [Mass/Vol] 1.8 mg/dL Normal 1.5-2.2 [facility] Comment on above: Performed By: #### L 501.5200, L500.2500, L100.0100 ####[facility] [address] [place], [address] Partial Thromboplast Timeon 08-13-2024 aPTT Coag (Bld) [Time] 31.1 s Normal 24.1-36.2 [facility] Comment on above: Performed By: #### L 300.4310, L300.3900 ####[facility] [address] [facility] [place], [address] Phosphoruson 08-13-2024 Phosphate [Mass/Vol] 3.8 mg/dL Normal 2.7-4.5 [facility] Comment on above: Performed By: #### L 501.2300 ####[facility] [address] [place], [address] Prothrombin Time w/INRon INR Coag (PPP) [Relative time] 1.3 {INR} Normal [facility] Comment on above: Performed By: #### L 300.4310, L300.3900 ####[facility] [address] [place], [address] PT Coag (PPP) [Time] 16.3 s High 11.7-14.9 [facility] Comment on above: Performed By: #### L 300.4310, L300.3900 ####[facility] [address] [place], [address] Respiratory Cultureon 2024 RESPC Normal [facility] Comment on above: Performed By: #### M 100.2000, M100.2400 ####[facility] [address] [place], [address] Basic Metabolic Profile (BMP )on 08-12-2024 BUN/CRE 10.7 RATIO Normal 10-20 [facility] Comment on above: Performed By: #### L 500.2500 ####[facility] [address] [place], [address] Calcium [Mass/Vol] 6.8 mg/dL Low 7.6-11.0 [facility] Comment on above: Performed By: #### L 500.2500 ####[facility] [address] [place], [address] Chloride [Moles/Vol] 107 mmol/L Normal 98-108 [facility] Comment on above: Performed By: #### L 500.2500 ####[facility] [address] [place], [address] CO2 [Moles/Vol] 17.3 mmol/L Low 21.0-32.0 [facility] Comment on above: Performed By: #### L 500.2500 ####[facility] [address] [place], [address] Creatinine [Mass/Vol] 5.55 mg/dL High 0.70-1.20 [facility] Comment on above: Performed By: #### L 500.2500 ####[facility] [address] [place], [address] ECRCL 14.18 ml/min Low 50-250 [facility] Comment on above: Performed By: #### L 500.2500 ####[facility] [address] [place], [address] GAP 17 High 5-15 [facility] Comment on above: Performed By: #### L 500.2500 ####[facility] [address] [place], [address] GFR/1.73 sq M.predicted among non-blacks MDRD (S/P/Bld) [Vol rate/Area] 11 mL/min/{1.73_m2} Low >60 [facility] Comment on above: Result Comment: mL/m in/1.73m2 CKD-EPI Creatinine Equation (2020) Performed By: #### L 500.2500 ####[facility] [address] [place], [address] Glucose [Mass/Vol] 270 mg/dL High 70-99 [facility] Comment on above: Performed By: #### L 500.2500 ####[facility] [address] [place], [address] Potassium [Moles/Vol] 4.6 mmol/L Normal 3.3-5.1 [facility] Comment on above: Performed By: #### L 500.2500 ####[facility] [address] [place], [address] Sodium [Moles/Vol] 142 mmol/L Normal 133-145 [facility] Comment on above: Performed By: #### L 500.2500 ####[facility] [address] [place], [address] Urea nitrogen [Mass/Vol] 59 mg/dL High 4-19 [facility] Comment on above: Performed By: #### L 500.2500 ####[facility] [address] [place], [address] BUN/CRE 10.9 RATIO Normal 10-20 [facility] Comment on above: Performed By: #### L 500.2500 ####[facility] [address] [place], [address] Calcium [Mass/Vol] 6.7 mg/dL Low 7.6-11.0 [facility] Comment on above: Performed By: #### L 500.2500 ####[facility] [address] [place], [address] Chloride [Moles/Vol] 107 mmol/L Normal 98-108 [facility] Comment on above: Performed By: #### L 500.2500 ####[facility] [address] [place], [address] CO2 [Moles/Vol] 21.9 mmol/L Normal 21.0-32.0 [facility] Comment on above: Performed By: #### L 500.2500 ####[facility] [address] [place], [address] Creatinine [Mass/Vol] 5.28 mg/dL High 0.70-1.20 [facility] Comment on above: Performed By: #### L 500.2500 ####[facility] [address] [place], [address] ECRCL 14.90 ml/min Low 50-250 [facility] Comment on above: Performed By: #### L 500.2500 ####[facility] [address] [place], [address] GAP 15 Normal 5-15 [facility] Comment on above: Performed By: #### L 500.2500 ####[facility] [address] [place], [address] GFR/1.73 sq M.predicted among non-blacks MDRD (S/P/Bld) [Vol rate/Area] 11 mL/min/{1.73_m2} Low >60 [facility] Comment on above: Result Comment: mL/m in/1.73m2 CKD-EPI Creatinine Equation (2020) Performed By: #### L 500.2500 ####[facility] [address] [place], [address] Glucose [Mass/Vol] 155 mg/dL High 70-99 [facility] Comment on above: Performed By: #### L 500.2500 ####[facility] [address] [place], [address] Potassium [Moles/Vol] 3.2 mmol/L Low 3.3-5.1 [facility] Comment on above: Performed By: #### L 500.2500 ####[facility] [address] [place], [address] Sodium [Moles/Vol] 144 mmol/L Normal 133-145 [facility] Comment on above: Performed By: #### L 500.2500 ####[facility] [address] [place], [address] Urea nitrogen [Mass/Vol] 58 mg/dL High 4-19 [facility] Comment on above: Performed By: #### L 500.2500 ####[facility] [address] [place], [address] BUN/CRE 10.9 RATIO Normal 10-20 [facility] Comment on above: Performed By: #### L 500.2500, L100.0100 ####[facility] [address] [place], [address] Calcium [Mass/Vol] 6.8 mg/dL Low 7.6-11.0 [facility] Comment on above: Performed By: #### L 500.2500, L100.0100 ####[facility] [address] [place], [address] Chloride [Moles/Vol] 105 mmol/L Normal 98-108 [facility] Comment on above: Performed By: #### L 500.2500, L100.0100 ####[facility] [address] [place], [address] CO2 [Moles/Vol] 22.7 mmol/L Normal 21.0-32.0 [facility] Comment on above: Performed By: #### L 500.2500, L100.0100 ####[facility] [address] [place], [address] Creatinine [Mass/Vol] 5.19 mg/dL High 0.70-1.20 [facility] Comment on above: Performed By: #### L 500.2500, L100.0100 ####[facility] [address] [place], [address] ECRCL 15.16 ml/min Low 50-250 [facility] Comment on above: Performed By: #### L 500.2500, L100.0100 ####[facility] [address] [place], [address] GAP 15 Normal 5-15 [facility] Comment on above: Performed By: #### L 500.2500, L100.0100 ####[facility] [address] [place], [address] GFR/1.73 sq M.predicted among non-blacks MDRD (S/P/Bld) [Vol rate/Area] 11 mL/min/{1.73_m2} Low >60 [facility] Comment on above: Result Comment: mL/m in/1.73m2 CKD-EPI Creatinine Equation (2020) Performed By: #### L 500.2500, L100.0100 ####[facility] [address] [place], [address] Glucose [Mass/Vol] 216 mg/dL High 70-99 [facility] Comment on above: Performed By: #### L 500.2500, L100.0100 ####[facility] [address] [place], [address] Potassium [Moles/Vol] 3.5 mmol/L Normal 3.3-5.1 [facility] Comment on above: Performed By: #### L 500.2500, L100.0100 ####[facility] [address] [place], [address] Sodium [Moles/Vol] 143 mmol/L Normal 133-145 [facility] Comment on above: Performed By: #### L 500.2500, L100.0100 ####[facility] [address] [place], [address] Urea nitrogen [Mass/Vol] 57 mg/dL High 4-19 [facility] Comment on above: Performed By: #### L 500.2500, L100.0100 ####[facility] [address] [place], [address] BUN/CRE 11.6 RATIO Normal 10-20 [facility] Comment on above: Performed By: #### L 500.2500 ####[facility] [address] [place], [address] Calcium [Mass/Vol] 6.9 mg/dL Low 7.6-11.0 [facility] Comment on above: Performed By: #### L 500.2500 ####[facility] [address] [place], [address] Chloride [Moles/Vol] 103 mmol/L Normal 98-108 [facility] Comment on above: Performed By: #### L 500.2500 ####[facility] [address] [place], [address] CO2 [Moles/Vol] 24.6 mmol/L Normal 21.0-32.0 [facility] Comment on above: Performed By: #### L 500.2500 ####[facility] [address] [place], [address] Creatinine [Mass/Vol] 4.95 mg/dL High 0.70-1.20 [facility] Comment on above: Performed By: #### L 500.2500 ####[facility] [address] [place], [address] ECRCL 15.89 ml/min Low 50-250 [facility] Comment on above: Performed By: #### L 500.2500 ####[facility] [address] [place], [address] GAP 15 Normal 5-15 [facility] Comment on above: Performed By: #### L 500.2500 ####[facility] [address] [place], [address] GFR/1.73 sq M.predicted among non-blacks MDRD (S/P/Bld) [Vol rate/Area] 12 mL/min/{1.73_m2} Low >60 [facility] Comment on above: Result Comment: mL/m in/1.73m2 CKD-EPI Creatinine Equation (2020) Performed By: #### L 500.2500 ####[facility] [address] [place], [address] Glucose [Mass/Vol] 235 mg/dL High 70-99 [facility] Comment on above: Performed By: #### L 500.2500 ####[facility] [address] [place], [address] Potassium [Moles/Vol] 3.4 mmol/L Normal 3.3-5.1 [facility] Comment on above: Performed By: #### L 500.2500 ####[facility] [address] [place], [address] Sodium [Moles/Vol] 142 mmol/L Normal 133-145 [facility] Comment on above: Performed By: #### L 500.2500 ####[facility] [address] [place], [address] Urea nitrogen [Mass/Vol] 57 mg/dL High 4-19 [facility] Comment on above: Performed By: #### L 500.2500 ####[facility] [address] [place], [address] Bedside Glucoseon 08-12-2024 FINGERSTICK GLU 256 mg/dL High 74-106 [facility] Comment on above: Result Comment: ANABELLE GEMENT OF PATIENT CARE PER NURSING PROTOCOL Performed By: #### L 501.080 ####[facility] [address] [place], [address] FINGERSTICK GLU 161 mg/dL High 74-106 [facility] Comment on above: Result Comment: ANABELLE GEMENT OF PATIENT CARE PER NURSING PROTOCOL Performed By: #### L 501.080 ####[facility] [address] [place], [address] FINGERSTICK GLU 115 mg/dL High 74-106 [facility] Comment on above: Result Comment: ANABELLE GEMENT OF PATIENT CARE PER NURSING PROTOCOL Performed By: #### L 501.080 ####[facility] [address] [place], [address] FINGERSTICK GLU 152 mg/dL High 74-106 [facility] Comment on above: Result Comment: ANABELLE GEMENT OF PATIENT CARE PER NURSING PROTOCOL Performed By: #### L 501.080 ####[facility] [address] [place], [address] FINGERSTICK GLU 166 mg/dL High 74-106 [facility] Comment on above: Result Comment: ANABELLE GEMENT OF PATIENT CARE PER NURSING PROTOCOL Performed By: #### L 501.080 ####[facility] [address] [place], [address] FINGERSTICK GLU 186 mg/dL High -106 [facility] Comment on above: Result Comment: ANABELLE GEMENT OF PATIENT CARE PER NURSING PROTOCOL Performed By: #### L 501.080 ####[facility] [id number] [place], [address] FINGERSTICK GLU 208 mg/dL High 74-106 [facility] Comment on above: Result Comment: ANABELLE GEMENT OF PATIENT CARE PER NURSING PROTOCOL Performed By: #### L 501.080 ####[facility] [id number] [place], [address] FINGERSTICK GLU 221 mg/dL High -106 [facility] Comment on above: Result Comment: ANABELLE GEMENT OF PATIENT CARE PER NURSING PROTOCOL Performed By: #### L 501.080 ####[facility] [address] [place], [address] FINGERSTICK GLU 246 mg/dL High 74-106 [facility] Comment on above: Result Comment: ANABELLE GEMENT OF PATIENT CARE PER NURSING PROTOCOL Performed By: #### L 501.080 ####[facility] [address] [place], [address] FINGERSTICK GLU 225 mg/dL High 74-106 [facility] Comment on above: Result Comment: ANABELLE GEMENT OF PATIENT CARE PER NURSING PROTOCOL Performed By: #### L 501.080 ####[facility] [address] [place], [address] FINGERSTICK GLU 231 mg/dL High 74-106 [facility] Comment on above: Result Comment: ANABELLE GEMENT OF PATIENT CARE PER NURSING PROTOCOL Performed By: #### L 501.080 ####[facility] [address] [place], [address] FINGERSTICK GLU 218 mg/dL High 74-106 [facility] Comment on above: Result Comment: ANABELLE GEMENT OF PATIENT CARE PER NURSING PROTOCOL Performed By: #### L 501.080 ####[facility] [address] [place], [address] FINGERSTICK GLU 274 mg/dL High 74-106 [facility] Comment on above: Result Comment: ANABELLE GEMENT OF PATIENT CARE PER NURSING PROTOCOL Performed By: #### L 501.080 ####[facility] [address] [place], [address] Beta-Hydroxbytyrateon 2024 BETA-HYDROXYBUT 0.2 mmol/L Normal 0.0-0.3 [facility] Comment on above: Performed By: #### L 501.6901 ####[facility] [address] [place], [address] Beta-hydroxybutyrateOrdered By: Vero Landeros on 08-12-2024 Beta hydroxybutyrate [Mass/Vol] 0.2 mmol/L 0.0-0.3 [facility] CBC W/Diff, Automatedon 07-28 Absolute Lymph 0.96 X10 3/uL Normal 0.83-4.51 [facility] Comment on above: Performed By: #### L 500.2500, L100.0100 ####[facility] [address] [place], [address] Absolute Neut 13.3 X10 3/uL High 2.0-7.7 [facility] Comment on above: Performed By: #### L 500.2500, L100.0100 ####[facility] [address] [place], [address] Basophils/100 WBC (Bld) 0.3 % Normal 0-1 [facility] Comment on above: Performed By: #### L 500.2500, L100.0100 ####[facility] [address] [place], [address] Eosinophils/100 WBC (Bld) 0.0 % Normal 0-5 [facility] Comment on above: Performed By: #### L 500.2500, L100.0100 ####[facility] [address] [place], [address] Erythrocyte distribution width (RBC) [Ratio] 13.3 % Normal 11.6-14.6 [facility] Comment on above: Performed By: #### L 500.2500, L100.0100 ####[facility] [address] [place], [address] Hematocrit (Bld) [Volume fraction] 28.7 % Low 40-54 [facility] Comment on above: Performed By: #### L 500.2500, L100.0100 ####[facility] [address] [place], [address] Hemoglobin (Bld) [Mass/Vol] 10.3 g/dL Low 13.0-16.5 [facility] Comment on above: Performed By: #### L 500.2500, L100.0100 ####[facility] [address] [place], [address] IG% 1.500 High 0.0-0.9 [facility] Comment on above: Result Comment: IG% - Immature Granulocytes (promyelocytes, myelocytes andmetamyelocytes) > 1% indicates that a LEFT SHIFT is Present. Performed By: #### L 500.2500, L100.0100 ####[facility] [address] [place], [address] Lymphocytes/100 WBC (Bld) 6.3 % Low 19-41 [facility] Comment on above: Performed By: #### L 500.2500, L100.0100 ####[facility] [address] [place], [address] MCH (RBC) [Entitic mass] 31.1 pg Normal 27.0-32.0 [facility] Comment on above: Performed By: #### L 500.2500, L100.0100 ####[facility] [address] [place], [address] MCHC (RBC) [Mass/Vol] 35.9 g/dL Normal 32-36 [facility] Comment on above: Performed By: #### L 500.2500, L100.0100 ####[facility] [address] [place], [address] MCV (RBC) [Entitic vol] 86.7 fL Normal 80-94 [facility] Comment on above: Performed By: #### L 500.2500, L100.0100 ####[facility] [address] [place], [address] Monocytes/100 WBC (Bld) 5.0 % Normal 0-10 [facility] Comment on above: Performed By: #### L 500.2500, L100.0100 ####[facility] [address] [place], [address] Neutrophils/100 WBC (Bld) 86.9 % High 47-70 [facility] Comment on above: Performed By: #### L 500.2500, L100.0100 ####[facility] [address] [place], [address] Nucleated RBC (Bld) [#/Vol] 0 10*3/uL Normal 0-5 [facility] Comment on above: Performed By: #### L 500.2500, L100.0100 ####[facility] [address] [place], [address] Platelet mean volume (Bld) [Entitic vol] 11.6 fL Normal 6.2-12.0 [facility] Comment on above: Performed By: #### L 500.2500, L100.0100 ####[facility] [address] [place], [address] Platelets (Bld) [#/Vol] 144 10*3/uL Low 150-450 [facility] Comment on above: Performed By: #### L 500.2500, L100.0100 ####[facility] [address] [place], [address] RBC (Bld) [#/Vol] 3.31 10*6/uL Low 4.6-6.2 [facility] Comment on above: Performed By: #### L 500.2500, L100.0100 ####[facility] [address] [place], [address] RDW SD 42.0 fl Normal 35.1-43.9 [facility] Comment on above: Performed By: #### L 500.2500, L100.0100 ####[facility] [address] [place], [address] WBC (Bld) [#/Vol] 15.3 10*3/uL High 4.4-11.0 [facility] Comment on above: Performed By: #### L 500.2500, L100.0100 ####[facility] [address] [place], [address] Consultation - Nephrologyon 08-12-2024 Consultation - Nephrology Normal [facility] EGD Reporton 08-12-2024 EGD Report Normal [facility] EGD Report Normal [facility] Kidney and Bladderon 025 Kidney and Bladder Normal [facility] Alcohol, Blood (Medical)-Ser umon 08-11-2024 SERUM ETOH < 10.1 Normal <=10.0 [facility] Comment on above: Result Comment: This test is for medical purposes only. The legaldefinition of intoxication varies according to local law. Performed By: #### L 501.9100, L501.9985 ####[facility] [address] [place], [address] Basic Metabolic Profile (BMP )on 08-11-2024 BUN/CRE 11.6 RATIO Normal 10-20 [facility] Comment on above: Order Comment: Call MD with results STAT Performed By: #### L 500.2500 ####[facility] [address] [place], [address] Calcium [Mass/Vol] 7.0 mg/dL Low 7.6-11.0 [facility] Comment on above: Order Comment: Call MD with results STAT Performed By: #### L 500.2500 ####[facility] [address] [place], [address] Chloride [Moles/Vol] 102 mmol/L Normal 98-108 [facility] Comment on above: Order Comment: Call MD with results STAT Performed By: #### L 500.2500 ####[facility] [address] [place], [address] CO2 [Moles/Vol] 24.9 mmol/L Normal 21.0-32.0 [facility] Comment on above: Order Comment: Call MD with results STAT Performed By: #### L 500.2500 ####[facility] [address] [place], [address] Creatinine [Mass/Vol] 4.78 mg/dL High 0.70-1.20 [facility] Comment on above: Order Comment: Call MD with results STAT Performed By: #### L 500.2500 ####[facility] [address] [place], [address] ECRCL 16.46 ml/min Low 50-250 [facility] Comment on above: Order Comment: Call MD with results STAT Performed By: #### L 500.2500 ####[facility] [address] [place], [address] GAP 16 High 5-15 [facility] Comment on above: Order Comment: Call MD with results STAT Performed By: #### L 500.2500 ####[facility] [address] [place], [address] GFR/1.73 sq M.predicted among non-blacks MDRD (S/P/Bld) [Vol rate/Area] 13 mL/min/{1.73_m2} Low >60 [facility] Comment on above: Order Comment: Call MD with results STAT Result Comment: mL/m in/1.73m2 CKD-EPI Creatinine Equation (2020) Performed By: #### L 500.2500 ####[facility] [address] [place], [address] Glucose [Mass/Vol] 353 mg/dL High 70-99 [facility] Comment on above: Order Comment: Call MD with results STAT Performed By: #### L 500.2500 ####[facility] [address] [place], [address] Potassium [Moles/Vol] 3.7 mmol/L Normal 3.3-5.1 [facility] Comment on above: Order Comment: Call MD with results STAT Performed By: #### L 500.2500 ####[facility] [address] [place], [address] Sodium [Moles/Vol] 142 mmol/L Normal 133-145 [facility] Comment on above: Order Comment: Call MD with results STAT Performed By: #### L 500.2500 ####[facility] [address] [place], [address] Urea nitrogen [Mass/Vol] 55 mg/dL High 4-19 [facility] Comment on above: Order Comment: Call MD with results STAT Performed By: #### L 500.2500 ####[facility] [address] [place], [address] BUN/CRE 12.3 RATIO Normal 10-20 [facility] Comment on above: Order Comment: Call MD with results STAT Performed By: #### L 500.2500 ####[facility] [address] [place], [address] Calcium [Mass/Vol] 7.0 mg/dL Low 7.6-11.0 [facility] Comment on above: Order Comment: Call MD with results STAT Performed By: #### L 500.2500 ####[facility] [address] [place], [address] Chloride [Moles/Vol] 100 mmol/L Normal 98-108 [facility] Comment on above: Order Comment: Call MD with results STAT Performed By: #### L 500.2500 ####[facility] [address] [place], [address] CO2 [Moles/Vol] 24.6 mmol/L Normal 21.0-32.0 [facility] Comment on above: Order Comment: Call MD with results STAT Performed By: #### L 500.2500 ####[facility] [address] [place], [address] Creatinine [Mass/Vol] 4.56 mg/dL High 0.70-1.20 [facility] Comment on above: Order Comment: Call MD with results STAT Performed By: #### L 500.2500 ####[facility] [address] [place], [address] ECRCL 17.25 ml/min Low 50-250 [facility] Comment on above: Order Comment: Call MD with results STAT Performed By: #### L 500.2500 ####[facility] [address] [place], [address] GAP 17 High 5-15 [facility] Comment on above: Order Comment: Call MD with results STAT Performed By: #### L 500.2500 ####[facility] [address] [place], [address] GFR/1.73 sq M.predicted among non-blacks MDRD (S/P/Bld) [Vol rate/Area] 13 mL/min/{1.73_m2} Low >60 [facility] Comment on above: Order Comment: Call MD with results STAT Result Comment: mL/m in/1.73m2 CKD-EPI Creatinine Equation (2020) Performed By: #### L 500.2500 ####[facility] [address] [place], [address] Glucose [Mass/Vol] 421 mg/dL High 70-99 [facility] Comment on above: Order Comment: Call MD with results STAT Performed By: #### L 500.2500 ####[facility] [address] [place], [address] Potassium [Moles/Vol] 4.0 mmol/L Normal 3.3-5.1 [facility] Comment on above: Order Comment: Call MD with results STAT Performed By: #### L 500.2500 ####[facility] [address] [place], [address] Sodium [Moles/Vol] 142 mmol/L Normal 133-145 [facility] Comment on above: Order Comment: Call MD with results STAT Performed By: #### L 500.2500 ####[facility] [address] [place], [address] Urea nitrogen [Mass/Vol] 56 mg/dL High 4-19 [facility] Comment on above: Order Comment: Call MD with results STAT Performed By: #### L 500.2500 ####[facility] [address] [place], [address] Glucose [Mass/Vol] 491 mg/dL Invalid Interpretation Code 70-99 [facility] Comment on above: Order Comment: Call MD with results STAT Result Comment: Crit ical Result(s) Called LMCCLUGGAGE at: 1721 by:BWORKMAN??Results read back by same.Critical Result(s) Called at: by:??Results read back bysame. AMENDED REPORT 08/11/241721 GLU previously reported as: 491 *H mg/dLCritical Result(s) Called LMCCLUGGAGE at: 1721 by:BWORKMAN??Results read back by same. Performed By: #### L 500.2500 ####[facility] [address] [place], [address] BUN/CRE 13.5 RATIO Normal 10-20 [facility] Comment on above: Order Comment: Call MD with results STAT Performed By: #### L 500.2500 ####[facility] [address] [place], [address] Calcium [Mass/Vol] 6.9 mg/dL Low 7.6-11.0 [facility] Comment on above: Order Comment: Call MD with results STAT Performed By: #### L 500.2500 ####[facility] [address] [place], [address] Chloride [Moles/Vol] 94 mmol/L Low 98-108 [facility] Comment on above: Order Comment: Call MD with results STAT Performed By: #### L 500.2500 ####[facility] [address] [place], [address] CO2 [Moles/Vol] 22.0 mmol/L Normal 21.0-32.0 [facility] Comment on above: Order Comment: Call MD with results STAT Performed By: #### L 500.2500 ####[facility] [address] [place], [address] Creatinine [Mass/Vol] 3.87 mg/dL High 0.70-1.20 [facility] Comment on above: Order Comment: Call MD with results STAT Performed By: #### L 500.2500 ####[facility] [address] [place], [address] ECRCL 21.17 ml/min Low 50-250 [facility] Comment on above: Order Comment: Call MD with results STAT Performed By: #### L 500.2500 ####[facility] [address] [place], [address] GAP 23 High 5-15 [facility] Comment on above: Order Comment: Call MD with results STAT Performed By: #### L 500.2500 ####[facility] [address] [place], [address] GFR/1.73 sq M.predicted among non-blacks MDRD (S/P/Bld) [Vol rate/Area] 17 mL/min/{1.73_m2} Low >60 [facility] Comment on above: Order Comment: Call MD with results STAT Result Comment: mL/m in/1.73m2 CKD-EPI Creatinine Equation (2020) Performed By: #### L 500.2500 ####[facility] [address] [place], [address] Glucose [Mass/Vol] 598 mg/dL Invalid Interpretation Code 70-99 [facility] Comment on above: Order Comment: Call MD with results STAT Result Comment: Crit ical Result(s) Called at 1220: by: ROBERT CHRISTENSEN. ??Results read back by same. Performed By: #### L 500.2500 ####[facility] [address] [place], [address] Potassium [Moles/Vol] 4.2 mmol/L Normal 3.3-5.1 [facility] Comment on above: Order Comment: Call MD with results STAT Performed By: #### L 500.2500 ####[facility] [address] [place], [address] Sodium [Moles/Vol] 139 mmol/L Normal 133-145 [facility] Comment on above: Order Comment: Call MD with results STAT Performed By: #### L 500.2500 ####[facility] [address] [place], [address] Urea nitrogen [Mass/Vol] 52 mg/dL High 4-19 [facility] Comment on above: Order Comment: Call MD with results STAT Performed By: #### L 500.2500 ####[facility] [address] [place], [address] BUN/CRE 13.4 RATIO Normal 10-20 [facility] Comment on above: Order Comment: Call MD with results STAT Performed By: #### L 500.2500, L501.6901 ####[facility] [address] [place], [address] Calcium [Mass/Vol] 7.0 mg/dL Low 7.6-11.0 [facility] Comment on above: Order Comment: Call MD with results STAT Performed By: #### L 500.2500, L501.6901 ####[facility] [address] [place], [address] Chloride [Moles/Vol] 86 mmol/L Low 98-108 [facility] Comment on above: Order Comment: Call MD with results STAT Performed By: #### L 500.2500, L501.6901 ####[facility] [address] [place], [address] CO2 [Moles/Vol] 12.7 mmol/L Low 21.0-32.0 [facility] Comment on above: Order Comment: Call MD with results STAT Performed By: #### L 500.2500, L501.6901 ####[facility] [address] [place], [address] Creatinine [Mass/Vol] 3.62 mg/dL High 0.70-1.20 [facility] Comment on above: Order Comment: Call MD with results STAT Performed By: #### L 500.2500, L501.6901 ####[facility] [address] [place], [address] ECRCL 22.63 ml/min Low 50-250 [facility] Comment on above: Order Comment: Call MD with results STAT Performed By: #### L 500.2500, L501.6901 ####[facility] [address] [place], [address] GAP 39 High 5-15 [facility] Comment on above: Order Comment: Call MD with results STAT Performed By: #### L 500.2500, L501.6901 ####[facility] [address] [place], [address] GFR/1.73 sq M.predicted among non-blacks MDRD (S/P/Bld) [Vol rate/Area] 18 mL/min/{1.73_m2} Low >60 [facility] Comment on above: Order Comment: Call MD with results STAT Result Comment: mL/m in/1.73m2 CKD-EPI Creatinine Equation (2020) Performed By: #### L 500.2500, L501.6901 ####[facility] [address] [place], [address] Glucose [Mass/Vol] 760 mg/dL Invalid Interpretation Code 70-99 [facility] Comment on above: Order Comment: Call MD with results STAT Result Comment: Crit ical Result(s) Called at: by:??Results read back bysamo.Critical Result(s) Called at: 0613 by:??LAKSHMI BECKR2. Results read back by same. Performed By: #### L 500.2500, L501.6901 ####[facility] [address] [place], [address] Potassium [Moles/Vol] 3.7 mmol/L Normal 3.3-5.1 [facility] Comment on above: Order Comment: Call MD with results STAT Performed By: #### L 500.2500, L501.6901 ####[facility] [address] [place], [address] Sodium [Moles/Vol] 137 mmol/L Normal 133-145 [facility] Comment on above: Order Comment: Call MD with results STAT Performed By: #### L 500.2500, L501.6901 ####[facility] [address] [place], [address] Urea nitrogen [Mass/Vol] 49 mg/dL High 4-19 [facility] Comment on above: Order Comment: Call MD with results STAT Performed By: #### L 500.2499, L501.6901 ####[facility] [address] [place], [address] BUN/CRE 13.4 RATIO Normal 10-20 [facility] Comment on above: Order Comment: Call MD with results STAT Performed By: #### L 500.2500 ####[facility] [address] [place], [address] Calcium [Mass/Vol] 6.9 mg/dL Low 7.6-11.0 [facility] Comment on above: Order Comment: Call MD with results STAT Performed By: #### L 500.2500 ####[facility] [address] [place], [address] Chloride [Moles/Vol] 82 mmol/L Low 98-108 [facility] Comment on above: Order Comment: Call MD with results STAT Performed By: #### L 500.2500 ####[facility] [address] [place], [address] CO2 [Moles/Vol] 10.1 mmol/L Low 21.0-32.0 [facility] Comment on above: Order Comment: Call MD with results STAT Performed By: #### L 500.2500 ####[facility] [address] [place], [address] Creatinine [Mass/Vol] 3.63 mg/dL High 0.70-1.20 [facility] Comment on above: Order Comment: Call MD with results STAT Performed By: #### L 500.2500 ####[facility] [address] [place], [address] ECRCL 22.57 ml/min Low 50-250 [facility] Comment on above: Order Comment: Call MD with results STAT Performed By: #### L 500.2500 ####[facility] [address] [place], [address] GAP 44 High 5-15 [facility] Comment on above: Order Comment: Call MD with results STAT Performed By: #### L 500.2500 ####[facility] [address] [place], [address] GFR/1.73 sq M.predicted among non-blacks MDRD (S/P/Bld) [Vol rate/Area] 18 mL/min/{1.73_m2} Low >60 [facility] Comment on above: Order Comment: Call MD with results STAT Result Comment: mL/m in/1.73m2 CKD-EPI Creatinine Equation (2020) Performed By: #### L 500.2500 ####[facility] [address] [place], [address] Glucose [Mass/Vol] 881 mg/dL Invalid Interpretation Code 70-99 [facility] Comment on above: Order Comment: Call MD with results STAT Result Comment: Crit ical Result(s) Called at:0253 by:??LAKSHMI SANCHEZ TO KRISTEN. Results read back by same. Performed By: #### L 500.2500 ####[facility] [address] [place], [address] Potassium [Moles/Vol] 3.7 mmol/L Normal 3.3-5.1 [facility] Comment on above: Order Comment: Call MD with results STAT Performed By: #### L 500.2500 ####[facility] [address] [place], [address] Sodium [Moles/Vol] 136 mmol/L Normal 133-145 [facility] Comment on above: Order Comment: Call MD with results STAT Performed By: #### L 500.2500 ####[facility] [address] [place], [address] Urea nitrogen [Mass/Vol] 49 mg/dL High 4-19 [facility] Comment on above: Order Comment: Call MD with results STAT Performed By: #### L 500.2500 ####[facility] [address] [place], [address] Bedside Glucoseon 08-11-2024 FINGERSTICK GLU 328 mg/dL High 74-106 [facility] Comment on above: Result Comment: ANABELLE GEMENT OF PATIENT CARE PER NURSING PROTOCOL Performed By: #### L 501.080 ####[facility] [address] [place], [address] FINGERSTICK GLU 345 mg/dL High 74-106 [facility] Comment on above: Result Comment: ANABELLE GEMENT OF PATIENT CARE PER NURSING PROTOCOL Performed By: #### L 501.080 ####[facility] [address] [place], [address] FINGERSTICK GLU 304 mg/dL High 74-106 [facility] Comment on above: Result Comment: ANABELLE GEMENT OF PATIENT CARE PER NURSING PROTOCOL Performed By: #### L 501.080 ####[facility] [address] [place], [address] FINGERSTICK GLU 327 mg/dL High 74-106 [facility] Comment on above: Result Comment: ANABELLE GEMENT OF PATIENT CARE PER NURSING PROTOCOL Performed By: #### L 501.080 ####[facility] [address] [place], [address] FINGERSTICK GLU 350 mg/dL High [address] [place] [address] Comment on above: Result Comment: ANABELLE GEMENT OF PATIENT CARE PER NURSING PROTOCOL Performed By: #### L 501.080 ####[facility] [address] [place], [address] FINGERSTICK GLU 387 mg/dL High [address] Comment on above: Result Comment: ANABELLE GEMENT OF PATIENT CARE PER NURSING PROTOCOL Performed By: #### L 501.080 ####[facility] [address] [place], [address] FINGERSTICK GLU 401 mg/dL High [address] [place] [address] Comment on above: Result Comment: ANABELLE GEMENT OF PATIENT CARE PER NURSING PROTOCOL Performed By: #### L 501.080 ####[facility] [address] [place], [address] FINGERSTICK GLU 447 mg/dL High [address] [place] [address] Comment on above: Result Comment: ANABELLE GEMENT OF PATIENT CARE PER NURSING PROTOCOL Performed By: #### L 501.080 ####[facility] [address] [place], [address] FINGERSTICK GLU 433 mg/dL High [address] [place] [address] Comment on above: Result Comment: ANABELLE GEMENT OF PATIENT CARE PER NURSING PROTOCOL Performed By: #### L 501.080 ####[facility] [address] [place], [address] FINGERSTICK GLU 466 mg/dL Invalid Interpretation Code [address] [place] [address] Comment on above: Result Comment: ANABELLE GEMENT OF PATIENT CARE PER NURSING PROTOCOL Performed By: #### L 501.080 ####[facility] [address] [place], [address] FINGERSTICK GLU 456 mg/dL Invalid Interpretation Code [address] [place] [address] Comment on above: Result Comment: ANABELLE GEMENT OF PATIENT CARE PER NURSING PROTOCOL Performed By: #### L 501.080 ####[facility] [address] [place], [address] FINGERSTICK GLU 438 mg/dL High [address] [place] [address] Comment on above: Result Comment: ANABELLE GEMENT OF PATIENT CARE PER NURSING PROTOCOL Performed By: #### L 501.080 ####[facility] [address] [place], [address] FINGERSTICK GLU > 500 Invalid Interpretation Code [address] [place] [address] Comment on above: Result Comment: Dr Olu de jesus FollowedMANAGEMENT OF PATIENT CARE PER NURSING PROTOCOL Performed By: #### L 501.080 ####[facility] [address] [place], [address] FINGERSTICK GLU 475 mg/dL Invalid Interpretation Code [address] [place] [address] Comment on above: Result Comment: Dr Olu de jesus FollowedMANAGEMENT OF PATIENT CARE PER NURSING PROTOCOL Performed By: #### L 501.080 ####[facility] [address] [place], [address] FINGERSTICK GLU 479 mg/dL Invalid Interpretation Code [address] [place] [address] Comment on above: Result Comment: ANABELLE GEMENT OF PATIENT CARE PER NURSING PROTOCOL Performed By: #### L 501.080 ####[facility] [address] [place], [address] FINGERSTICK GLU > 500 Invalid Interpretation Code [address] [place] [address] Comment on above: Result Comment: ANABELLE GEMENT OF PATIENT CARE PER NURSING PROTOCOL Performed By: #### L 501.080 ####[facility] [address] [place], [address] FINGERSTICK GLU > 500 Invalid Interpretation Code [address] [place] [address] Comment on above: Result Comment: Repe at TestMANAGEMENT OF PATIENT CARE PER NURSING PROTOCOL Performed By: #### L 501.080 ####[facility] [address] [place], [address] FINGERSTICK GLU > 500 Invalid Interpretation Code 74-106 [facility] Comment on above: Result Comment: Insu vince GivenMANAGEMENT OF PATIENT CARE PER NURSING PROTOCOL Performed By: #### L 501.080 ####[facility] [address] [place], [address] Beta-Hydroxbytyrateon 2024 BETA-HYDROXYBUT 13.1 mmol/L Normal 0.0-0.3 [facility] Comment on above: Performed By: #### L 500.2500, L501.6901 ####[facility] [address] [place], [address] Blood Gases by CPSon 025 ANTONIO TEST Positive Normal [facility] Comment on above: Performed By: #### L 9000.0800 ####[facility] [address] [place], [address] Base excess Calc (Bld) [Moles/Vol] -3 mmol/L Low -2 to +2 [facility] Comment on above: Performed By: #### L 9000.0800 ####[facility] [address] [place], [address] Blood Gas Type ART Normal [facility] Comment on above: Performed By: #### L 9000.0800 ####[facility] [address] [place], [address] CO2 [Moles/Vol] 23 mmol/L Normal [facility] Comment on above: Performed By: #### L 9000.0800 ####[facility] [address] [place], [address] FI02 35.0 Normal [facility] Comment on above: Performed By: #### L 9000.0800 ####[facility] [address] [place], [address] HCO3 (Bld) [Moles/Vol] 21.5 mmol/L Low 22-26 [facility] Comment on above: Performed By: #### L 9000.0800 ####[facility] [address] [place], [address] Mode AC Normal [facility] Comment on above: Performed By: #### L 9000.0800 ####[facility] [address] [place], [address] O2 Delivery Dev Adult Vent Normal [facility] Comment on above: Performed By: #### L 9000.0800 ####[facility] [address] [place], [address] pCO2 32.4 mmHg Low 35-45 [facility] Comment on above: Performed By: #### L 9000.0800 ####[facility] [address] [place], [address] PEEP 5 Normal [facility] Comment on above: Performed By: #### L 9000.0800 ####[facility] [address] [place], [address] pH (Bld) 7.43 [pH] Normal 7.35-7.45 [facility] Comment on above: Performed By: #### L 9000.0800 ####[facility] [address] [place], [address] PO2 81 mmHG Normal 75-100 [facility] Comment on above: Performed By: #### L 9000.0800 ####[facility] [address] [place], [address] RR 18 Normal [facility] Comment on above: Performed By: #### L 9000.0800 ####[facility] [address] [place], [address] SITE R Radial Normal [facility] Comment on above: Performed By: #### L 9000.0800 ####[facility] [address] [place], [address] SO2 96 Normal 95-99 [facility] Comment on above: Performed By: #### L 9000.0800 ####[facility] [address] [place], [address] Vt 500.0 mL Normal [facility] Comment on above: Performed By: #### L 9000.0800 ####[facility] [address] [place], [address] ANTONIO TEST N/A Normal [facility] Comment on above: Performed By: #### L 9000.0800 ####[facility] [address] [place], [address] Base excess Calc (Bld) [Moles/Vol] -19 mmol/L Low -2 to +2 [facility] Comment on above: Performed By: #### L 9000.0800 ####[facility] [address] [place], [address] Blood Gas Type ART Normal [facility] Comment on above: Performed By: #### L 9000.0800 ####[facility] [address] [place], [address] CO2 [Moles/Vol] 10 mmol/L Normal [facility] Comment on above: Performed By: #### L 9000.0800 ####[facility] [address] [place], [address] FI02 45.0 Normal [facility] Comment on above: Performed By: #### L 9000.0800 ####[facility] [address] [place], [address] HCO3 (Bld) [Moles/Vol] 9.4 mmol/L Low 22-26 [facility] Comment on above: Performed By: #### L 9000.0800 ####[facility] [address] [place], [address] Mode AC Normal [facility] Comment on above: Performed By: #### L 9000.0800 ####[facility] [address] [place], [address] O2 Delivery Dev Adult Vent Normal [facility] Comment on above: Performed By: #### L 9000.0800 ####[facility] [address] [place], [address] pCO2 24.7 mmHg Low 35-45 [facility] Comment on above: Performed By: #### L 9000.0800 ####[facility] [address] [place], [address] PEEP 5 Normal [facility] Comment on above: Performed By: #### L 9000.0800 ####[facility] [address] [place], [address] pH (Bld) 7.19 [pH] Invalid Interpretation Code 7.35-7.45 [facility] Comment on above: Performed By: #### L 9000.0800 ####[facility] [address] [place], [address] PO2 121 mmHG High 75-100 [facility] Comment on above: Performed By: #### L 9000.0800 ####[facility] [address] [place], [address] Read Back By Yes [facility] Comment on above: Performed By: #### L 9000.0800 ####[facility] [address] [place], [address] Abdi [facility] Comment on above: Performed By: #### L 9000.0800 ####[facility] [address] [place], [address] RR 18 Normal [facility] Comment on above: Performed By: #### L 0.0800 ####[facility] [address] [place], [address] SITE L Radial Normal [facility] Comment on above: Performed By: #### L 0.0800 ####[facility] [address] [place], [address] SO2 98 Normal 95-99 [facility] Comment on above: Performed By: #### L 0.0800 ####[facility] [address] [place], [address] Time Given 00:10:37 Normal [facility] Comment on above: Performed By: #### L 0.0800 ####[facility] [address] [place], [address] Vt 500.0 mL Normal [facility] Comment on above: Performed By: #### L 9000.0800 ####[facility] [address] [place], [address] Blood band neutrophil count as percentage of total leukocytesOrdered By: Miki Boyd on 08-11-2024 Band form neutrophils/100 WBC (Bld) 8 % High 0-5 [facility] Blood lymphocytes/100 leukoc ytesOrdered By: Miki Boyd on 08-11-2024 Lymphocytes/100 WBC (Bld) 11 % Low 19-41 [facility] Blood monocytes/100 leukocyt esOrdered By: Miki Boyd on 08-11-2024 Monocytes/100 WBC (Bld) 2 % 0-10 [facility] Blood segmented neutrophils/ 100 leukocytesOrdered By: Miki Boyd on 08-11-2024 Segmented neutrophils/100 WBC (Bld) 79 % High 47-70 [facility] CBC W/Diff, Automatedon 04- PLT EST ADEQUATE Normal ADEQ [facility] Comment on above: Performed By: #### L 100.0100 ####[facility] [address] [place], [address] RED CELL MORPH NORM C+C Normal NORM C C [facility] Comment on above: Performed By: #### L 100.0100 ####[facility] [address] [place], [address] Absolute Lymph 1.97 X10 3/uL Normal 0.83-4.51 [facility] Comment on above: Performed By: #### L 100.0100 ####[facility] [address] [place], [address] Absolute Neut 15.6 X10 3/uL High 2.0-7.7 [facility] Comment on above: Performed By: #### L 100.0100 ####[facility] [address] [place], [address] CPK Total, Creatine Kinaseon 08-11-2024 CPK TOTAL 1589 U/L High 24-195 [facility] Comment on above: Performed By: #### L 506.0200, L503.0106, L501.3620, L500.4050, L503.6005, L501.9520, L501.5200, M200.1000 ####[facility] [address] [place], [address] Comprehensive Metabolic Prof ilon 08-11-2024 Albumin [Mass/Vol] 3.0 g/dL Low 3.4-4.8 [facility] Comment on above: Order Comment: Call MD with results STAT Performed By: #### L 506.0200, L503.0106, L501.3620, L500.4050, L503.6005, L501.9520, L501.5200, M200.1000 ####[facility] [address] [place], [address] Albumin/Globulin [Mass ratio] 1.4 {ratio} Normal 0.9-2.4 [facility] Comment on above: Order Comment: Call MD with results STAT Performed By: #### L 506.0200, L503.0106, L501.3620, L500.4050, L503.6005, L501.9520, L501.5200, M200.1000 ####[facility] [address] [place], [address] ALK PHOS 129 U/L Normal 40-129 [facility] Comment on above: Order Comment: Call MD with results STAT Performed By: #### L 506.0200, L503.0106, L501.3620, L500.4050, L503.6005, L501.9520, L501.5200, M200.1000 ####[facility] [address] [place], [address] ALT [Catalytic activity/Vol] 24 U/L Normal <=46 [facility] Comment on above: Order Comment: Call MD with results STAT Performed By: #### L 506.0200, L503.0106, L501.3620, L500.4050, L503.6005, L501.9520, L501.5200, M200.1000 ####[facility] [address] [place], [address] AST [Catalytic activity/Vol] 69 U/L High <=37 [facility] Comment on above: Order Comment: Call MD with results STAT Performed By: #### L 506.0200, L503.0106, L501.3620, L500.4050, L503.6005, L501.9520, L501.5200, M200.1000 ####[facility] [address] [place], [address] Bilirubin [Mass/Vol] 0.17 mg/dL Normal 0.00-1.30 [facility] Comment on above: Order Comment: Call MD with results STAT Performed By: #### L 506.0200, L503.0106, L501.3620, L500.4050, L503.6005, L501.9520, L501.5200, M200.1000 ####[facility] [address] [place], [address] BUN/CRE 12.8 RATIO Normal 10-20 [facility] Comment on above: Order Comment: Call MD with results STAT Performed By: #### L 506.0200, L503.0106, L501.3620, L500.4050, L503.6005, L501.9520, L501.5200, M200.1000 ####[facility] [address] [place], [address] Calcium [Mass/Vol] 7.1 mg/dL Low 7.6-11.0 [facility] Comment on above: Order Comment: Call MD with results STAT Performed By: #### L 506.0200, L503.0106, L501.3620, L500.4050, L503.6005, L501.9520, L501.5200, M200.1000 ####[facility] [address] [place], [address] Chloride [Moles/Vol] 78 mmol/L Low 98-108 [facility] Comment on above: Order Comment: Call MD with results STAT Performed By: #### L 506.0200, L503.0106, L501.3620, L500.4050, L503.6005, L501.9520, L501.5200, M200.1000 ####[facility] [address] [place], [address] CO2 [Moles/Vol] 6.8 mmol/L Invalid Interpretation Code 21.0-32.0 [facility] Comment on above: Order Comment: Call MD with results STAT Result Comment: Crit ical Result(s) Called at:0023 by: LAKSHMI SANCHEZ TO RNTMILLER2.??Results read back by same.Critical Result(s) Called at: by:??Results read back bysame. Performed By: #### L 506.0200, L503.0106, L501.3620, L500.4050, L503.6005, L501.9520, L501.5200, M200.1000 ####[facility] [address] [place], [place], [address] Creatinine [Mass/Vol] 3.59 mg/dL High 0.70-1.20 [facility] Comment on above: Order Comment: Call MD with results STAT Performed By: #### L 506.0200, L503.0106, L501.3620, L500.4050, L503.6005, L501.9520, L501.5200, M200.1000 ####[facility] [address] [place], [place], [address] ECRCL 22.82 ml/min Low 50-250 [facility] Comment on above: Order Comment: Call MD with results STAT Performed By: #### L 506.0200, L503.0106, L501.3620, L500.4050, L503.6005, L501.9520, L501.5200, M200.1000 ####[facility] [address] [place], [place], [address] GAP 51 High 5-15 [facility] Comment on above: Order Comment: Call MD with results STAT Performed By: #### L 506.0200, L503.0106, L501.3620, L500.4050, L503.6005, L501.9520, L501.5200, M200.1000 ####[facility] [address] [place], [place], [address] GFR/1.73 sq M.predicted among non-blacks MDRD (S/P/Bld) [Vol rate/Area] 18 mL/min/{1.73_m2} Low >60 [facility] Comment on above: Order Comment: Call MD with results STAT Result Comment: mL/m in/1.73m2 CKD-EPI Creatinine Equation (2020) Performed By: #### L 506.0200, L503.0106, L501.3620, L500.4050, L503.6005, L501.9520, L501.5200, M200.1000 ####[facility] [address] [place], [address] Globulin (S) [Mass/Vol] 2.1 g/dL Low 2.2-4.2 [facility] Comment on above: Order Comment: Call MD with results STAT Performed By: #### L 506.0200, L503.0106, L501.3620, L500.4050, L503.6005, L501.9520, L501.5200, M200.1000 ####[facility] [address] [place], [address] Glucose [Mass/Vol] 982 mg/dL Invalid Interpretation Code 70-99 [facility] Comment on above: Order Comment: Call MD with results STAT Result Comment: Crit ical Result(s) Called at: 0032by:??LAKSHMI SANCHEZ TO [facility] HOSPITALREBECCA. Results read back by same.Critical Result(s) Called at: by:??[facility] Performed By: #### L 506.0200, L503.0106, L501.3620, L500.4050, L503.6005, L501.9520, L501.5200, M200.1000 ####[facility] [address] [place], [address] Potassium [Moles/Vol] 4.0 mmol/L Normal 3.3-5.1 [facility] Comment on above: Order Comment: Call MD with results STAT Performed By: #### L 506.0200, L503.0106, L501.3620, L500.4050, L503.6005, L501.9520, L501.5200, M200.1000 ####[facility] [address] [place], [address] Sodium [Moles/Vol] 136 mmol/L Normal 133-145 [facility] Comment on above: Order Comment: Call MD with results STAT Performed By: #### L 506.0200, L503.0106, L501.3620, L500.4050, L503.6005, L501.9520, L501.5200, M200.1000 ####[facility] [address] [place], [address] T PROT 5.1 g/dL Low 5.9-8.4 [facility] Comment on above: Order Comment: Call MD with results STAT Performed By: #### L 506.0200, L503.0106, L501.3620, L500.4050, L503.6005, L501.9520, L501.5200, M200.1000 ####[facility] [address] [place], [address] Urea nitrogen [Mass/Vol] 46 mg/dL High 4-19 [facility] Comment on above: Order Comment: Call MD with results STAT Performed By: #### L 506.0200, L503.0106, L501.3620, L500.4050, L503.6005, L501.9520, L501.5200, M200.1000 ####[facility] [address] [place], [address] Consultation - Intensiviston 08-11-2024 Consultation - Glazing Department Supervisor Normal [facility] Erythrocyte morphology asses smentOrdered By: Miki Boyd on 08-11-2024 RBC morphology finding Nom (Bld) NORM C+C NORMAL NORM C&C [facility] Folates,Serum (Folic Acid)on 08-11-2024 FOLATES,SERUM 15.20 ng/mL Normal 4.60-34.80 [facility] Comment on above: Order Comment: Call MD with results STATN Result Comment: Hemo lysis, Results will be affected, Requires Recollection. Performed By: #### L 506.0200, L503.0106, L501.3620, L500.4050, L503.6005, L501.9520, L501.5200, M200.1000 ####[facility] [address] [place], [address] Free T3on 08-11-2024 Free T3 [Mass/Vol] 1.0 pg/mL Low 2.18-3.98 [facility] Comment on above: Performed By: #### L 501.86139, L506.0400 ####[facility] [address] [place], [address] Free G1Lqvrqee By: Miki cooper on 08-11-2024 Free T3 [Mass/Vol] 1.0 pg/mL Low 2.18-3.98 [facility] Glucoseon 08-11-2024 Glucose [Mass/Vol] 936 mg/dL Invalid Interpretation Code 70-99 [facility] Comment on above: Result Comment: Crit ical Result(s) Called at:0117 by:??LAKSHMI SANCHEZ TO MARK. Results read back by same. Performed By: #### L 501.0100 ####[facility] [address] [place], [address] Gram Stainon 08-11-2024 GS Acceptable Specimen? Yes (<25 Epithelial cells per/lpf) Gram Stain 1+ Gram positive cocci Rare Gram positive rods Normal [facility] Comment on above: Performed By: #### M 100.2000, M100.2400 ####[facility] [address] [place], [address] Hemoglobin A1con 08-11-2024 HbA1c (Bld) [Mass fraction] 11.4 % High <=5.6 [facility] Comment on above: Result Comment: Norm al < 5.7 % Prediabetic 5.7 - 6.4 % Diabetic >or= 6.5 % Please note range changes. Performed By: #### L 501.9100, L501.9985 ####[facility] [address] [place], [address] Lactic Acidon 08-11-2024 Lactate [Moles/Vol] 3.4 mmol/L Invalid Interpretation Code 0.0-2.0 [facility] Comment on above: Order Comment: Y Result Comment: Crit ical Result(s) Called at 0757: by: ROBERT CHRISTENSEN. ??Results read back by same.Critical Result(s) Called at: by:??Results read back bysame. AMENDED REPORT 08/11/24808 LACTIC ACID previously reported as: 3.4 *H mmol/LCritical Result(s) Called at 0757: by: ROBERT CHRISTENSEN. ??Results read back by same. Performed By: #### L 824.6000 ####[facility] [address] [place], [address] Lactate [Moles/Vol] 2.9 mmol/L Invalid Interpretation Code 0.0-2.0 [facility] Comment on above: Result Comment: Crit ical Result(s) Called at: 0454 by:??LAKSHMI ACHARYA. Results read back by same. Performed By: #### L 5036003 ####[facility] [address] [place], [address] Lactate [Moles/Vol] 2.4 mmol/L Invalid Interpretation Code 0.0-2.0 [facility] Comment on above: Order Comment: Comme nts: if result >2, system reflex orders 2nd test @ 4hrsY Result Comment: Crit ical Result(s) Called at: 0012 by: LAKSHMI PETERSON.??Results read back by same. Performed By: #### L 506.0200, L503.0106, L501.3620, L500.4050, L503.6005, L501.9520, L501.5200, M200.1000 ####[facility] [address] [place], [address] MR/CON.PCM.GIon 08-11-2024 MR/CON.PCM.GI Normal [facility] Magnesiumon 08-11-2024 Magnesium [Mass/Vol] 2.8 mg/dL High 1.5-2.2 [facility] Comment on above: Performed By: #### L 506.0200, L503.0106, L501.3620, L500.4050, L503.6005, L501.9520, L501.5200, M200.1000 ####[facility] [address] [place], [address] No Panel InformationOrdered By: Miki Boyd on 08-11-2024 00:10:[address] [facility] [address] Abdi [facility] Yes [facility] Platelet estimateOrdered By: Miki Boyd on 08-11-2024 Platelets LM Ql (Bld) ADEQUATE ADEQ [facility] T4 Free Directon 08-11-2024 T4 FREE DIRECT 0.50 ng/dL Low 0.76-1.46 [facility] Comment on above: Performed By: #### L 501.74601, L506.0400 ####[facility] [address] [place], [address] T4 freeOrdered By: Miki cooper on 08-11-2024 Free T4 [Mass/Vol] 0.50 ng/dL Low 0.76-1.46 [facility] Thyroid Stim Hormone (TSH)on 08-11-2024 TSH 10.600 uIU/mL High 0.300-4.200 [facility] Comment on above: Performed By: #### L 506.0200, L503.0106, L501.3620, L500.4050, L503.6005, L501.9520, L501.5200, M200.1000 ####[facility] [address] [facility] [address] Total cell countOrdered By: Miki Boyd on 08-11-2024 Cells counted Molgen (Bld/Tiss) [#] 100 MANUAL DIFF [facility] Urine Drug Screen (VISTA)on 08-11-2024 AMPHETAMINES Negative Normal <1000 ng/mL [facility] Comment on above: Performed By: #### L 505.5000 ####[facility] [address] [place], [address] BARBITIURATES Negative Normal < 200 ng/mL [facility] Comment on above: Performed By: #### L 505.5000 ####[facility] [address] [place], [address] BENZODIAZIPINE Negative Normal < 200 ng/mL [facility] Comment on above: Performed By: #### L 505.5000 ####[facility] [address] [place], [address] BUP Ur Drug Scr Positive Normal < 200 ng/mL [facility] Comment on above: Result Comment: If c onfirmation testing is needed, a separate order will berequired to send out testing to the reference laboratory. Performed By: #### L 505.5000 ####[facility] [address] [place], [address] COCAINE Negative Normal < 300 ng/mL [facility] Comment on above: Performed By: #### L 505.5000 ####[facility] [address] [place], [address] Fentanyl Negative Normal [facility] Comment on above: Performed By: #### L 505.5000 ####[facility] [address] [place], [address] METHADONE Negative Normal < 300 ng/mL [facility] Comment on above: Performed By: #### L 505.5000 ####[facility] [address] [place], [address] OPIATES Negative Normal < 300 ng/mL [facility] Comment on above: Performed By: #### L 505.5000 ####[facility] [address] [place], [place], [id number] OXYCODONE Negative Normal < 100 ng/mL [facility] Comment on above: Performed By: #### L 505.5000 ####[facility] [address] [place], [place], [id number] PCP Negative Normal < 25 ng/mL [facility] Comment on above: Performed By: #### L 505.5000 ####[facility] [address] [place], [place], [id number] THC Positive Normal < 50 ng/mL [facility] Comment on above: Result Comment: If c onfirmation testing is needed, a separate order will berequired to send out testing to the reference laboratory. Performed By: #### L 505.5000 ####[facility] [address] [place], [place], [address] Vitamin Z44Xpetdtq By: Miki Boyd on 08-11-2024 Cobalamin (Vitamin B12) [Mass/Vol] 1379 pg/mL High 180-914 [facility] Comment on above: Performed By: #### L 506.0200, L503.0106, L501.3620, L500.4050, L503.6005, L501.9520, L501.5200, M200.1000 ####[facility] [address] [place], [address] 12 Lead EKGon 08-10-2024 12 Lead EKG Normal [facility] Absolute neutrophil countOrd ered By: Jose Alfredo Valderrama on 08-10-2024 Neutrophils (Bld) [#/Vol] 20.6 10*3/uL High 2.0-7.7 [facility] Amphetamine detection with 1 000 ng/mL as cutoffOrdered By: Miki Boyd on 08-10-2024 Amphetamines Screen method >1000 ng/mL Ql (U) Negative < 200 ng/mL [facility] Anion gap in Serum or Plasma Ordered By: Jose Alfredo Valderrama on 08-10-2024 Anion gap [Moles/Vol] 53 mmol/L High 5-15 [facility] Arterial patency Wrist arter y --pre arterial punctureOrdered By: Jose Alfredo Valderrama on 08-10-2024 Antonio Test N/A [facility] BUN/creatinine ratioOrdered By: Jose Alfredo Valderrama on 08-10-2024 Urea nitrogen/Creatinine [Mass ratio] 13.4 mg/mg 10- [facility] Base excess Calc (BldV) [Mol es/Vol]Ordered By: Jose Alfredo Valderrama on 08-10-2024 Blood Gas Base Excess -24 mmol/L Low -2-2 [facility] Basic Metabolic Profile (BMP )on 08-10-2024 CO2 [Moles/Vol] 6.3 mmol/L Invalid Interpretation Code 21.0-32.0 [facility] Comment on above: Result Comment: Crit [...] #### L 500.2500, L300.3900, L501.6901, L300.4310, L100.0100 ####[facility] [address] [place], [address] Glucose [Mass/Vol] 1336 mg/dL Invalid Interpretation Code 70-99 [facility] Comment on above: Result Comment: Crit [...] #### L 500.2500, L300.3900, L501.6901, L300.4310, L100.0100 ####[facility] [address] [place], [address] BUN Normal 4-19 [facility] Comment on above: Result Comment: DUPL ICATE Performed By: #### L 500.2500 ####[facility] [address] [place], [address] BUN/CRE Normal 10-20 [facility] Comment on above: Result Comment: DUPL ICATE Performed By: #### L 500.2500 ####[facility] [address] [place], [address] Calcium Normal 7.6-11.0 [facility] Comment on above: Result Comment: DUPL ICATE Performed By: #### L 500.2500 ####[facility] [address] [place], [address] CL Normal 98-108 [facility] Comment on above: Result Comment: DUPL ICATE Performed By: #### L 500.2500 ####[facility] [address] [place], [address] CO2 Normal 21.0-32.0 [facility] Comment on above: Result Comment: DUPL ICATE Performed By: #### L 500.2500 ####[facility] [address] [place], [address] CREAT,SERUM Normal 0.70-1.20 [facility] Comment on above: Result Comment: DUPL ICATE Performed By: #### L 500.2500 ####[facility] [address] [place], [address] eGFR Normal >60 [facility] Comment on above: Result Comment: DUPL ICATE Performed By: #### L 500.2500 ####[facility] [address] [place], [address] GAP Normal 5-15 [facility] Comment on above: Result Comment: DUPL ICATE Performed By: #### L 500.2500 ####[facility] [address] [place], [address] GLU Normal 70-99 [facility] Comment on above: Result Comment: DUPL ICATE Performed By: #### L 500.2500 ####[facility] [address] [place], [address] Potassium Normal 3.3-5.1 [facility] Comment on above: Result Comment: DUPL ICATE Performed By: #### L 500.2500 ####[facility] [address] [place], [address] Basic Metabolic Profile (BMP) Normal 133-145 [facility] Comment on above: Result Comment: DUPL ICATE Performed By: #### L 500.2500 ####[facility] [address] [place], [address] Basophil percentageOrdered B y: Jose Alfredo Valderrama on 08-10-2024 Basophils/100 WBC (Bld) 0.4 % 0-1 [facility] Bedside Glucoseon 08-10-2024 FINGERSTICK GLU > 500 Invalid Interpretation Code 74-106 [facility] Comment on above: Result Comment: Dr Olu de jesus FollowedMANAGEMENT OF PATIENT CARE PER NURSING PROTOCOL Performed By: #### L 501.080 ####[facility] [address] [place], [address] FINGERSTICK GLU > 500 Invalid Interpretation Code 74-106 [facility] Comment on above: Result Comment: Dr Olu de jesus FollowedMANAGEMENT OF PATIENT CARE PER NURSING PROTOCOL Performed By: #### L 501.080 ####[facility] [address] [place], [address] Beta hydroxybutyrate [Mass/V ol]Ordered By: Jose Alfredo Valderrama on 08-10-2024 Beta-Hydroxybutyric Acid mmol/L > 16.0 mmol/L 0.0-0.3 [facility] Beta-Hydroxbytyrateon 2024 BETA-HYDROXYBUT > 16.0 Normal 0.0-0.3 [facility] Comment on above: Performed By: #### L 500.2500, L300.3900, L501.6901, L300.4310, L100.0100 ####[facility] [address] [place], [address] Bilirubin Test strip Ql (U)O rdered By: Jose Alfredo Valderrama on 08-10-2024 Bilirubin Ql (U) Negative Negative [facility] N/A Normal [facility] Comment on above: Performed By: #### L 9000.0800 ####[facility] [address] [place], [address] Base excess Calc (Bld) [Moles/Vol] -24 mmol/L Low -2 to +2 [facility] Comment on above: Performed By: #### L 9000.0800 ####[facility] [address] [place], [address] Blood Gas Type ART [facility] Comment on above: Performed By: #### L 8999.0800 ####[facility] [address] [place], [address] CO2 [Moles/Vol] 9 mmol/L [facility] Comment on above: Performed By: #### L 8999.0800 ####[facility] [address] [place], [address] FI02 100.0 [facility] Comment on above: Performed By: #### L 0.0800 ####[facility] [address] [place], [address] HCO3 (Bld) [Moles/Vol] 7.6 mmol/L Low 22-26 [facility] Comment on above: Performed By: #### L 9000.0800 ####[facility] [address] [place], [address] Mode Not entered [facility] Comment on above: Performed By: #### L 9000.0800 ####[facility] [address] [place], [address] O2 Delivery Dev Bagging [facility] Comment on above: Performed By: #### L 9000.0800 ####[facility] [address] [place], [address] pCO2 33.9 mmHg Low 35-45 [facility] Comment on above: Performed By: #### L 9000.0800 ####[facility] [address] [place], [address] pH (Bld) 6.96 [pH] Invalid Interpretation Code 7.35-7.45 [facility] Comment on above: Performed By: #### L 9000.0800 ####[facility] [address] [place], [address] PO2 379 mmHG Invalid Interpretation Code 75-100 [facility] Comment on above: Performed By: #### L 9000.0800 ####[facility] [address] [place], [address] Read Back By Yes [facility] Comment on above: Performed By: #### L 9000.0800 ####[facility] [address] [place], [address] Valderrama [facility] Comment on above: Performed By: #### L 9000.0800 ####[facility] [address] [place], [address] SITE L Radial Normal [facility] Comment on above: Performed By: #### L 9000.0800 ####[facility] [address] [place], [address] SO2 100 High 95-99 [facility] Comment on above: Performed By: #### L 9000.0800 ####[facility] [address] [place], [address] Time Given 18:47:46 [facility] Comment on above: Performed By: #### L 9000.0800 ####[facility] [address] [place], [address] Blood bicarbonate measuremen tOrdered By: Jose Alfredo Valderrama on 08-10-2024 Blood Gas Bicarbonate Actual 7.6 mmol/L Low - [facility] Blood cultureOrdered By: Malcom Boyd on 08-10-2024 Bacteria identified Cx Nom (Bld) No growth in 5 days. [facility] CBC W/Diff, Automatedon 07-28 SMEAR COMMENT SCANNED Normal [facility] Comment on above: Result Comment: NEUT ROPHILIA NOTED Performed By: #### L 500.2500, L300.3900, L501.6901, L300.4310, L100.0100 ####[facility] [address] [place], [address] CTA Chst, Abd, Pel W and/or WOon 08-10-2024 CTA Chst, Abd, Pel W and/or WO Normal [facility] CXR for Line Placementon CXR for Line Placement Normal [facility] Carbon dioxide, total [Moles /volume] in Central venous bloodOrdered By: Jose Alfredo Valderrama on 08-10-2024 CO2 [Moles/Vol] 6.3 mmol/L Low 21.0-32.0 [facility] Comment on above: Critical Result(s) C alled MMARTIN at: 1953 by: CRISTOPHERMAN Results read back by same. Critical Result(s) [...] mmol/LEdited by: AUTOINS on 08/10/24:2019 AMENDED REPORT 08/10/242018 CO2 previously reported as: 6.3 *L mmol/L Critical Result(s) Called MMARTIN at: 1953 by: BWORKMAN Results read back by same.Previous reported result: 6.3 mmol/LEdited by: AUTOINS on 08/10/24:2029 AMENDED REPORT 08/10/242029 CO2 previously reported as: 6.3 *L mmol/L Critical Result(s) Called MMARTIN at: 1953 by: TASH Results read back by same. Critical Result(s) Called MMARTIN at: 1954 by: BWORKMAN Results read back by same.Critical Result(s) Called at: by: Results read back by same. Chest 1 View (Portable)on Chest 1 View (Portable) Normal [facility] Chest 1 View (Portable) Normal [facility] Chloride assayOrdered By: Xochitl Valderrama on 08-10-2024 Chloride [Moles/Vol] 76 mmol/L Low 98-108 [facility] Determination of fraction of inspired oxygenOrdered By: Jose Alfredo Valderrama on 08-10-2024 Blood Gas Oxygen Percent 100.0 [facility] Emergency Department Summary on 08-10-2024 Emergency Department Summary Normal [facility] Eosinophil percentageOrdered By: Jose Alfredo Valderrama on 08-10-2024 Eosinophils/100 WBC (Bld) 0.0 % 0-5 [facility] Epithelial cells.renal LM.HP F (Urine sed) [#/Area]Ordered By: Jose Alfredo Valderrama on 08-10-2024 Urine Renal Epithelial Cells 0-5 SEEN /hpf 0-5 [facility] Epithelial cells.squamous LM Ql (Urine sed)Ordered By: Jose Alfredo Valderrama on 08-10-2024 Epithelial cells.squamous LM.HPF (Urine sed) [#/Area] 0 /[HPF] 0-5 [facility] Erythrocyte distribution wid th (RBC) [Ratio]Ordered By: Jose Alfredo Valderrama on 08-10-2024 Erythrocyte distribution width (RBC) [Entitic vol] 53.3 fL High 35.1-43.9 [facility] Erythrocyte distribution wid th ratioOrdered By: Jose Alfredo Valderrama on 08-10-2024 Erythrocyte distribution width (RBC) [Ratio] 13.2 % 11.6-14.6 [facility] Estimation of creatinine eric aranceOrdered By: Jose Alfredo Valderrama on 08-10-2024 Estimated Creatinine Clearance Calc 25.20 ml/min Low 50-250 [facility] Folate [Moles/volume] in Ser um or PlasmaOrdered By: Miki Boyd on 08-10-2024 Folate [Moles/Vol] 15.20 ng/mL 4.60-34.80 [facility] GFR/1.73 sq M.predicted meet g non-blacks MDRD (S/P/Bld) [Vol rate/Area]Ordered By: Jose Alfredo Valderrama on 08-10-2024 Estimated GFR (MDRD) Non-Af Amer 20 Low >60 [facility] Comment on above: mL/min/1.73m2 CKD-EP I Creatinine Equation (2020) Glucoseon 08-10-2024 Glucose [Mass/Vol] 1039 mg/dL Invalid Interpretation Code [facility] Comment on above: Result Comment: Crit ical Result(s) Called at:2341 by:??LAKSHMI SANCHEZ TO KRISTEN. Results read back by same. Performed By: #### L 501.0100 ####[facility] [address] [place], [address] Glucose [Mass/Vol] 1130 mg/dL Invalid Interpretation Code [facility] Comment on above: Result Comment: Crit ical Result(s) Called MMARTIN at: 2208 by:TASH??Results read back by same. Performed By: #### L 501.0100 ####[facility] [address] [facility] [place], [address] Glucose Ql (U)Ordered By: Xochitl Valderrama on 08-10-2024 Glucose (U) [Mass/Vol] 1000 mg/dL High Normal [facility] deOrdered By: Jose Alfredo Valderrama on 08-10-2024 Bedside Glucose (Misc Panel) > 500 mg/dL High 74-106 [facility] Comment on above: Dr Klein FollowedMA NAGEMENT OF PATIENT CARE PER NURSING PROTOCOL Gram stainOrdered By: Jose Alfredo aponte on 08-10-2024 Microscopic observation Gram stain Nom (Unsp spec) [facility] H AND P Exam - Hospitaliston 08-10-2024 H&P Exam - Hospitalist Normal [facility] Hematocrit Auto (Bld) [Volum e fraction]Ordered By: Jose Alfredo Valderrama on 08-10-2024 Hematocrit (Bld) [Volume fraction] 37.7 % Low 40-54 [facility] Hemoglobin A1c percentageOrd ered By: Miki Oliver on 08-10-2024 HbA1c (Bld) [Mass fraction] 11.4 % High <5.7 [facility] Hemoglobin measurementOrdere d By: Jose Alfredotay Valderrama on 08-10-2024 Hemoglobin (Bld) [Mass/Vol] 10.6 g/dL Low 13.0-16.5 [facility] Immature granulocytes/100 WB C Auto (Bld)Ordered By: Jose Alfredo Valderrama on 08-10-2024 Immature granulocytes/100 WBC (Bld) 3.700 % High 0.0-0.9 [facility] Comment on above: IG% - Immature Granu locytes (promyelocytes, myelocytes and metamyelocytes) > 1% indicates that a LEFT SHIFT is Present. International normalized rat io (INR) calculationOrdered By: Jose Alfredo Valderrama on 08-10-2024 INR Coag (Bld) [Relative time] 1.5 {INR} [facility] Ketones Test strip Ql (U)Ord ered By: Jose Alfredo Valderrama on 08-10-2024 Ketones Ql (U) 150 mg/dl Abnormal Negative [facility] Comment on above: CRITICAL VALUE *HCRI TICAL VALUE CALLED TO Arlene GARCIA08/10/242051 Maggie Chaves.RESULTS READ BACK BY SAME. L499.0042on 08-10-2024 Trop T High Sen 42 ng/L High <=22 [facility] Comment on above: Performed By: #### L 499.0042 ####[facility] [address] [place], [address] L499.0043on 08-10-2024 Trop T High Sen 56 ng/L Invalid Interpretation Code <=22 [facility] Comment on above: Result Comment: Crit ical Result(s) Called at: 2323by:LAKSHMI SANCHEZ TO RNMWITUNKI.??Results read back by same. Performed By: #### L 499.0043 ####[facility] [address] [place], [place], [address] L501.4021on 08-10-2024 Trop T High Sen 38 ng/L High <=22 [facility] Comment on above: Performed By: #### L 501.4021 ####[facility] [address] [place], [address] Lymphocytes Auto (Unsp spec) [#/Vol]Ordered By: Jose Alfredo Valderrama on 08-10-2024 Lymphocytes (Bld) [#/Vol] 1.99 10*3/uL 0.83-4.51 [facility] Lymphocytes/100 WBC Auto (Un sp spec)Ordered By: Jose Alfredo Valderrama on 08-10-2024 Lymphocytes/100 WBC (Bld) 8.1 % Low 19-41 [facility] MCV (mean corpuscular volume ) determinationOrdered By: Jose Alfredo Valderrama on 08-10-2024 MCV (RBC) [Entitic vol] 110.6 fL High 80-94 [facility] Manual differential comment James (Bld) [Interp]Ordered By: Jose Alfredo Valderrama on 08-10-2024 Differential Comment SCANNED [facility] Comment on above: NEUTROPHILIA NOTED Mean corpuscular hemoglobin (MCH) determinationOrdered By: Jose Alfredo Valderrama on 08-10-2024 MCH (RBC) [Entitic mass] 31.1 pg 27.0-32.0 [facility] Mean corpuscular hemoglobin concentration (MCHC) determinationOrdered By: Jose Alfredo Valderrama on 08-10-2024 MCHC (RBC) [Mass/Vol] 28.1 g/dL Low 32-36 [facility] Mean platelet volume determi nationOrdered By: Jose Alfredo Valderrama on 08-10-2024 Platelet mean volume (Bld) [Entitic vol] 12.8 fL High 6.2-12.0 [facility] Microbial respiratory cultur eOrdered By: Jose Alfredo Valderrama on 08-10-2024 Microorganism identified Cx Nom (Unsp spec) Escherichia coli Abnormal [facility] Microorganism identified Cx Nom (Unsp spec) Streptococcus pneumoniae Abnormal [facility] Microorganism identified Cx Nom (Unsp spec) Streptococcus agalactiae (B) Abnormal [facility] Microscopic analysis of urin e for red blood cells (RBC)Ordered By: Jose Alfredo Valderrama on 08-10-2024 Urine RBC 0 SEEN /hpf 0-5 [facility] Monocyte percentageOrdered B y: Jose Alfredo Valderrama on 08-10-2024 Monocytes/100 WBC (Bld) 4.4 % 0-10 [facility] Mucus LM Ql (Urine sed)Order ed By: Jose Alfredo Valderrama on 08-10-2024 Mucus Ql (Urine sed) 0 SEEN /hpf [facility] Neutrophil percentageOrdered By: Jose Alfredo Valderrama on 08-10-2024 Neutrophils/100 WBC (Bld) 83.4 % High 47-70 [facility] Nitrite Test strip Ql (U)Ord ered By: Jose Alfredo Valderrama on 08-10-2024 Nitrite Ql (U) Negative Negative [facility] No Panel InformationOrdered By: Jose Alfredo Valderrama on 08-10-2024 Bld Gas Crit Called To/Read Back By Yes [facility] Blood Gas Notified Time 18:47:46 [facility] Blood Gas Notified Whom Dr Valderrama [facility] Blood Gas Sample Site L Radial [facility] Blood Gas Specimen Type ART [facility] Blood Gas Vent Mode Not entered [facility] Oxygen Delivery Device Bagging [facility] No Panel InformationOrdered By: Miki Boyd on 08-10-2024 Negative < 100 ng/mL [facility] Positive < 200 ng/mL [facility] Nucleated red blood cell per centageOrdered By: Jose Alfredo Valderrama on 08-10-2024 Nucleated RBC/100 WBC (Bld) [Ratio] 0 % 0-5 [facility] Oxygen saturation measuremen tOrdered By: Jose Alfredo Valderrama on 08-10-2024 Blood Gas Oxygen Saturation 100 % High 95-99 [facility] Partial Thromboplast Timeon 08-10-2024 aPTT Coag (Bld) [Time] 32.9 s Normal 24.1-36.2 [facility] Comment on above: Performed By: #### L 500.2500, L300.3900, L501.6901, L300.4310, L100.0100 ####[facility] [address] [place], [place], [id number] Partial pressure of carbon d ioxide measurementOrdered By: Jose Alfredo Valderrama on 08-10-2024 Arterial Blood Partial Pressure CO2 33.9 mmHg Low 35-45 [facility] Partial pressure of oxygen m easurementOrdered By: Jose Alfredo Valderrama on 08-10-2024 Arterial Blood Partial Pressure O2 379 mmHG High 75-100 [facility] Platelet countOrdered By: Xochitl Valderrama on 08-10-2024 Platelets (Bld) [#/Vol] 269 10*3/uL 150-450 [facility] Potassium (Unsp spec) [Mass/ Vol]Ordered By: Jose Alfredo Valderrama on 08-10-2024 Potassium [Moles/Vol] 5.8 mmol/L High 3.3-5.1 [facility] Comment on above: Hemolysis present, R esults could be affected. Protein Test strip Ql (U)Ord ered By: Jose Alfredo Valderrama on 08-10-2024 Protein Ql (U) 15 mg/dl High Negative [facility] Prothrombin Time w/INRon INR Coag (PPP) [Relative time] 1.5 {INR} Normal [facility] Comment on above: Performed By: #### L 500.2500, L300.3900, L501.6901, L300.4310, L100.0100 ####[facility] [address] [place], [address] PT Coag (PPP) [Time] 18.8 s High 11.7-14.9 [facility] Comment on above: Performed By: #### L 500.2500, L300.3900, L501.6901, L300.4310, L100.0100 ####[facility] [address] [place], [address] Prothrombin timeOrdered By: Jose Alfredo Valderrama on 08-10-2024 PT Coag (PPP) [Time] 18.8 s High 11.7-14.9 [facility] RBC Auto (Bld) [#/Vol]Ordere d By: Jose Alfredo Valderrama on 08-10-2024 RBC (Bld) [#/Vol] 3.41 10*6/uL Low 4.6-6.2 [facility] Screening urine fentanyl adrian surementOrdered By: Miki Boyd on 08-10-2024 fentaNYL Screen Ql (U) Negative [facility] Serum creatinine measurement (mass/volume)Ordered By: Jose Alfredo Valderrama on 08-10-2024 Creatinine [Mass/Vol] 3.25 mg/dL High 0.70-1.20 [facility] Serum glucose measurement (m ass/volume)Ordered By: Jose Alfredo Valderrama on 08-10-2024 Glucose [Mass/Vol] 1130 mg/dL High 70-99 [facility] Comment on above: Critical Result(s) C alled MMARTIN at: 2208 by: TASH Results read back by same. Serum or plasma calcium jessica urement (mass/volume)Ordered By: Jose Alfredo Valderrama on 08-10-2024 Calcium [Mass/Vol] 7.4 mg/dL Low 7.6-11.0 [facility] Serum or plasma creatine kin ase activityOrdered By: Miki Boyd on 08-10-2024 CK [Catalytic activity/Vol] 1589 U/L High 24-195 [facility] Serum or plasma ethanol jessica urement (mass/volume)Ordered By: Miki Boyd on 08-10-2024 Ethanol [Mass/Vol] mg/dL <10.1 [facility] Serum or plasma urea nitroge n measurement (mass/volume)Ordered By: Jose Alfredo Valderrama on 08-10-2024 Urea nitrogen [Mass/Vol] 44 mg/dL High 4-19 [facility] Sodium levelOrdered By: Jose Alfredo Valderrama on 08-10-2024 Sodium [Moles/Vol] 135 mmol/L 133-145 [facility] Squamous epithelial cells de tection in urine sediment by light microscopyOrdered By: Jose Alfredo Valderrama on 08-10-2024 Epithelial cells.squamous LM Ql (Urine sed) 0 SEEN /hpf 0-5 [facility] TSH DL <= 0.005 mIU/L QnOrde red By: Miki Boyd on 08-10-2024 TSH Qn 10.600 uIU/mL High 0.300-4.200 [facility] Total carbon dioxide measure mentOrdered By: Jose Alfredo Valderrama on 08-10-2024 Blood Gas Total CO2 9 mmol/L [facility] Troponin T.cardiac High sens itivity method [Mass/Vol]Ordered By: Jose Alfredo Valderrama on 08-10-2024 Troponin T High Sensitivity 2 Hour 42 ng/L High <22 [facility] Troponin T High Sensitivity 38 ng/L High <22 [facility] Troponin T.cardiac [Mass/vol ume] in Serum or Plasma by High sensitivity methodOrdered By: Jose Alfredo Valderrama on 08-10-2024 Troponin T.cardiac High sensitivity method [Mass/Vol] 56 ng/L High <22 [facility] Troponin T.cardiac High sensitivity method [Mass/Vol] 42 ng/L High <22 [facility] Troponin T.cardiac High sensitivity method [Mass/Vol] 38 ng/L High <22 [facility] Type AND Screenon 08-10-2024 Ab SCREEN GEL Negative Normal [facility] Comment on above: Order Comment: Has p t arrived? YHGI Performed By: #### B TS ####[facility] [address] [place], [address] ABO and Rh group Nom (Bld) Blood group O Rh(D) negative Normal [facility] Comment on above: Order Comment: Has p t arrived? YHGI Performed By: #### B TS ####[facility] [address] [place], [address] Urinalysis, Completeon 08-10 EPI,RENAL 0-5 SEEN Normal 0-5 [facility] Comment on above: Order Comment: RICHIE TER SPECIMEN Performed By: #### L 400.0001 ####[facility] [address] [place], [address] WBC 0-5 SEEN Normal 0-5 [facility] Comment on above: Order Comment: RICHIE TER SPECIMEN Performed By: #### L 400.0001 ####[facility] [address] [place], [address] BACTERIA 0 SEEN Normal None Seen [facility] Comment on above: Order Comment: RICHIE TER SPECIMEN Performed By: #### L 400.0001 ####[facility] [address] [place], [address] EPI,SQUAMOUS 0 SEEN Normal 0-5 [facility] Comment on above: Order Comment: RICHIE TER SPECIMEN Performed By: #### L 400.0001 ####[facility] [address] [place], [address] Mucus Ql (Urine sed) 0 SEEN Normal [facility] Comment on above: Order Comment: RICHIE TER SPECIMEN Performed By: #### L 400.0001 ####[facility] [address] [place], [address] RBC 0 SEEN Normal 0-5 [facility] Comment on above: Order Comment: RICHIE TER SPECIMEN Performed By: #### L 400.0001 ####[facility] [address] [place], [address] Urine blood detectionOrdered By: Jose Alfredo Valderrama on 08-10-2024 Urine Occult Blood Negative Negative [facility] Urine clarityOrdered By: Yudy Valderrama on 08-10-2024 Clarity (U) Clear Clear [facility] Urine color determinationOrd ered By: Jose Alfredo Valderrama on 08-10-2024 Color (U) Straw Yellow [facility] Urine glucose detectionOrder ed By: Jose Alfredo Valderrama on 08-10-2024 Glucose Ql (U) 1000 mg/dl High Normal [facility] Urine leukocyte esterase det ection by dipstickOrdered By: Jose Alfredo Valderrama on 08-10-2024 Leukocyte esterase Test strip Ql (U) Negative Negative [facility] Urine pHOrdered By: Jose Alfredo ervin on 08-10-2024 pH (U) 6.0 [pH] 5.0 - 8.0 [facility] Urine phencyclidine (PCP) de tectionOrdered By: Miki Boyd on 08-10-2024 Phencyclidine Ql (U) Negative < 25 ng/mL [facility] Urine sediment bacteria coun t by microscopy (number/high power field)Ordered By: Jose Alfredo Valderrama on 08-10-2024 Bacteria LM.HPF (Urine sed) [#/Area] 0 /[HPF] None Seen [facility] Urine sediment renal epithel ial cell count by microscopy (number/high power field)Ordered By: Jose Alfredo Valderrama on 08-10-2024 Epithelial cells.renal LM.HPF (Urine sed) [#/Area] 0 /[HPF] 0-5 [facility] Urine specific gravity measu rementOrdered By: Jose Alfredo Valderrama on 08-10-2024 Specific gravity (U) [Rel density] 1.015 1.002-1.030 [facility] Urine urobilinogen measureme ntOrdered By: Jose Alfredo Valderrama on 08-10-2024 Urobilinogen Ql (U) Normal mg/dl Normal [facility] Urobilinogen Ql (U)Ordered B y: Jose Alfredo Valderrama on 08-10-2024 Urine Urobilinogen Normal mg/dl Normal [facility] White blood cell (WBC) count Ordered By: Jose Alfredo Valderrama on 08-10-2024 WBC (Bld) [#/Vol] 24.7 10*3/uL High 4.4-11.0 [facility] White blood cell countOrdere d By: Jose Alfredo Valderrama on 08-10-2024 Urine WBC 0-5 SEEN /hpf 0-5 [facility] White blood cell count 0-5 SEEN /hpf 0-5 [facility] aPTT Coag (PPP) [Time]Ordere d By: Jose Alfredo Valderrama on 08-10-2024 aPTT Coag (Bld) [Time] 32.9 s 24.1-36.2 [facility] pH (Unsp spec)Ordered By: Xochitl Valderrama on 08-10-2024 Blood Gas pH 6.96 Low 7.35-7.45 [facility] 36on 08-05-2024 36 Notes script faxed today Normal [facility] 36 Fax notes and script d for violet to anatolyk Normal [facility] AMB POC HEMOGLOBIN A1Con HbA1c (Bld) [Mass fraction] 10.6 % Abnormal - 5.7 % [facility] HbA1c (Bld) [Mass fraction]o n 08-05-2024 Interpretation and review of laboratory results Abnormal [facility] Office Visiton 08-05-2024 Follow-up visit [id number] Abraham Bush 1955 M Date Provider Department Center 08/05/2024 ALBINA VERAS [facility] None Family History Problem Relation Age of Onset High Blood Pressure Mother Cancer Father Family Status - Relation Status Age at Mother Alive Father Daughter Alive Daughter Alive Level of Service:81039 [place] OFFICE/OUTPATIENT ESTABLISHED MOD MDM 30 MIN Reason for Visit and Comments: Follow-up [034931] Diabetes [34] Normal [facility] Progress Noteon 08-05-2024 Progress Note [facility] [address] [facility] [address] Dept: [phone] Dept Loc: [phone] Visit type: Established patient Reason for Visit: [...] Type 2 Diabetes mellitus with hyperglycemia and buttermaker continuous churn insulin use: Lab Results Component Value Date [...] scale Encourage patient to utilize sliding scale Violet 3+ sensor and reader scripts faxed to [...] to check sugars ac and hs using violet cgm - submit sugar logs in 1 [...] no polydipsia and no polyuria. PCP is Tod Lr MD Initial [facility] endocrinology office visit: Before 12/13/2014 Last office visit: 05/27/2023 No significant Interval history Type of DM: 1 Onset :~2013 Complications: Cardiovascular -- No Statin Use -- Yes Retinopathy -- No Last KEVIN/Retina Eval: missed follow up at [facility] . Longer distance from home. Would like to be referred to ophthalmology in [place] Nephropathy -- No RONNIE/ARB Use -- Yes Polyneuropathy -- Yes Bilateral great toes Foot Exam: 11/13/2022 Obesity -- No Other -- No Pt complaints include: He is sick, has nasal drainage, cough, and feeling bad all over Was in the hospital for DKA last year, and vomiting Sensors are from [facility] and he needs to see us so thatt he can continue to get the devices Since last office visit denies new health problems, admits to hospitalizations, and admits to surgeries. Pt feels their blood sugars are unchanged since NANCI. Pt (more content not included)... [facility] 36on 07-30-2024 36 Name of caller: Abraham Contact phone number: [phone] Relationship to Patient: patient Provider: SANDRA Servin Practice: Endo Chief Complaint/Reason for Call: Patient is requesting a urine test for his appointment. He would like to complete it in the morning tomorrow. Please advise. Best time of day caller can be reached: Any Patient advised that office/PCP has 24-48 business hours to return their call: Yes [facility] Progress Noteon 07-30-2024 Progress Note Left message for patient that Microalbumin and Lipid panel ordered. Message was not clear to specify what type of urine test the patient was requesting. [facility] 36on 07-28-2024 36 That is the most rec ent visit (September 2023) , pt will be seen again on 08/05/24 by harvinder. Please advise and send notes to raisa after the patients visit with harvinder in a week. [facility] 36 Message released to Raisa as written. Raisa stated they received requested clinical notes, but the date was for 10/01/23. Called to inquire if there was a sooner visit. Raisa was advised that was the most recent visit. Raisa's further questions if applicable: No further questions. Were all questions from office addressed or relayed to the patient from encounter: N/A [facility] 36on 04-16-2024 36 See pended script Normal [facility] 36 Called pt again and scheduled for 08/05/2024 with Albina Servin. Pt also placed on wait list for sooner appointment. Normal [facility] 36on 04-14-2024 36 Called pt and left a message requesting that he call the office to schedule an appointment. Normal [facility] BASIC METABOLIC PANELon 10-2 Anion gap [Moles/Vol] 9 mmol/L Normal 3-13 [facility] Comment on above: Performed By: #### L AB15, QJR794, ELL637 ####Spanish Interpreter: ENRIQUE JEAN BAPTISTE ([id number])[facility] (SBHLAB)[address] Calcium [Mass/Vol] 8.6 mg/dL Normal 8.4-10.4 [facility] Comment on above: Performed By: #### L AB15, JEN105, TBE931 ####Spanish Interpreter: ENRIQUE JEAN BAPTISTE ([id number])[facility] (SBHLAB)[address] Chloride [Moles/Vol] 103 mmol/L Normal 98-107 [facility] Comment on above: Performed By: #### L AB15, ADM392, YGW851 ####Spanish Interpreter: ENRIQUE JEAN BAPTISTE ([id number])[facility] (SBHLAB)[address] [place] [address] [place] CO2 [Moles/Vol] 21 mmol/L Low 22-30 [facility] Comment on above: Performed By: #### L AB15, SGY802, NNP612 ####Spanish Interpreter: ENRIQUE JEAN BAPTISTE ([id number])[facility] (SBHLAB)[address] [place] [address] [place] Creatinine [Mass/Vol] 0.54 mg/dL Low 0.66-1.25 [facility] Comment on above: Performed By: #### L AB15, WHT553, XWT216 ####Spanish Interpreter: ENRIQUE JEAN BAPTISTE ([id number])[facility]ALSelin [facility] ([facility])[address] GLOMERULAR FILTRATION RATE ML/MIN/1.73 SQ M.PREDICTED >90.0 Normal >60.0 [facility] Comment on above: Result Comment: Calc ulation based on the Chronic Kidney Disease Epidemiology Collaboration (CKD-EPI) equation refit without adjustment for race Performed By: #### L EMELYN, AVU309, [id number] ####Spanish Interpreter: ENRIQUE JEAN BAPTISTE ([id number])[facility] ([facility])[address] Glucose [Mass/Vol] 65 mg/dL Low 70-100 [facility] Comment on above: Performed By: #### Benny DUNAWAY, YPX169, FOZ364 ####Spanish Interpreter: ENRIQUE JEAN BAPTISTE ([id number])[facility] ([facility])[address] Potassium [Moles/Vol] 3.0 mmol/L Low 3.5-5.1 [facility] Comment on above: Performed By: #### Benny AB15, [id number], WMG391 ####Spanish Interpreter: ENRIQUE JEAN BAPTISTE ([id number])[facility] (SBHLAB)[address] [place] [address] [place] Sodium [Moles/Vol] 133 mmol/L Low 135-145 [facility] Comment on above: Performed By: #### L AB15, WKB254, JGC523 ####Spanish Interpreter: ENRIQUE JEAN BAPTISTE ([id number])[facility] (SBHLAB)[address] Urea nitrogen [Mass/Vol] 12 mg/dL Normal 9-20 [facility] Comment on above: Performed By: #### L AB15, TRD046, SXN947 ####Spanish Interpreter: ENRIQUE JEAN BAPTISTE ([id number])[facility] (SBHLAB)[address] [place] [address] Basic metabolic 1998 panelon 02-17-2024 Anion gap [Moles/Vol] 9 mmol/L 3 - 13 mmol/L [facility] [place] Calcium [Mass/Vol] 8.6 mg/dL 8.4 - 10. 4 mg/dL [facility] Chloride [Moles/Vol] 103 mmol/L 98 - 10 7 mmol/L [facility] CO2 [Moles/Vol] 21 mmol/L Low 22 - 30 mmol/L [facility] Creatinine [Mass/Vol] 0.54 mg/dL Low 0.66 - 1.25 mg/dL [facility] [place] GFR/1.73 sq M.predicted (S/P/Bld) [Vol rate/Area] - PINF [facility] [place] Comment on above: Calculation based on the Chronic Kidney Disease Epidemiology Collaboration (CKD-EPI) equation refit without adjustment for race Glucose [Mass/Vol] 65 mg/dL Low 70 - 100 mg/dL [facility] [place] Potassium [Moles/Vol] 3 mmol/L Low 3.5 - 5.1 mmol/L [facility] Sodium [Moles/Vol] 133 mmol/L Low 135 - 145 mmol/L [facility] [place] Urea nitrogen [Mass/Vol] 12 mg/dL 9 - 20 mg/dL [facility] [place] CBC W Auto Differential pane l (Bld)on 02-17-2024 Basophils (Bld) [#/Vol] 0 10*3/uL 0.0 - 0.2 10*3/uL [employer] [place] Basophils/100 WBC (Bld) 0.4 % 0.0 - 2.0 % [facility] [place] Eosinophils (Bld) [#/Vol] 0.1 10*3/uL 0.0 - 0.5 10*3/uL [employer] [place] Eosinophils/100 WBC (Bld) 0.7 % 0.0 - 6.0 % [employer] [place] Erythrocyte distribution width (RBC) [Ratio] 13.1 % 11.5 - 15.0 % [employer] [place] Hematocrit (Bld) [Volume fraction] 41.6 % 40.0 - 52.0 % [employer] [place] Hemoglobin (Bld) [Mass/Vol] 14.2 g/dL 13.0 - 18.0 g/dL [facility] [place] Immature granulocytes (Bld) [#/Vol] 0 10*3/uL NINF - 0.1 10*3/uL [facility] [place] Immature granulocytes/100 WBC (Bld) 0.2 % 0.0 - 2.0 % [facility] Interpretation and review of laboratory results Abnormal [facility] Lymphocytes (Bld) [#/Vol] 2.2 10*3/uL 1.0 - 4.3 10*3/uL [facility] Lymphocytes/100 WBC (Bld) 20.2 % 15.0 - 45.0 % [facility] MCH (RBC) [Entitic mass] 30.8 pg 26.0 - 34.0 pg [facility] MCHC (RBC) [Mass/Vol] 34.1 % 30.5 - 36.0 % [facility] MCV (RBC) [Entitic vol] 90.2 fL 77.0 - 99.0 fL [facility] Monocytes (Bld) [#/Vol] 0.7 10*3/uL 0.0 - 0.9 10*3/uL [facility] Monocytes/100 WBC (Bld) 6.8 % 5.0 - 13.0 % [facility] Neutrophils (Bld) [#/Vol] 7.7 10*3/uL High 1.8 - 7.5 10*3/uL [facility] Neutrophils/100 WBC (Bld) 71.7 % 38.0 - 82.0 % [facility] Nucleated RBC/100 WBC (Bld) [Ratio] 0 % [facility] Platelet mean volume (Bld) [Entitic vol] 10.4 fL 9.0 - 12.7 fL [facility] Platelets (Bld) [#/Vol] 288 10*3/uL 140 - 440 10*3/uL [facility] RBC (Bld) [#/Vol] 4.61 10*6/uL 4.40 - 5.9 0 10*6/uL [facility] WBC (Bld) [#/Vol] 10.8 10*3/uL High 3.6 - 10.7 10*3/uL [facility] CBC WITH AUTO DIFFERENTIALon 02-17-2024 Basophils (Bld) [#/Vol] 0.0 10*3/uL Normal 0.0-0.2 [facility] Comment on above: Performed By: #### L [id number] ####Spanish Interpreter: ENRIQUE GARCIAHEMANTH ([id number])[facility] (SBHLAB)[address] Basophils/100 WBC (Bld) 0.4 % Normal 0.0-2.0 [facility] Comment on above: Performed By: #### L [id number] ####Spanish Interpreter: ENRIQUE GARCIAHEMANTH ([id number])[facility] (SBHLAB)[address] Eosinophils (Bld) [#/Vol] 0.1 10*3/uL Normal 0.0-0.5 [facility] Comment on above: Performed By: #### L [id number] ####Spanish Interpreter: ENRIQUE GARCIAHEMANTH ([id number])[facility] (SBHLAB)[address] Eosinophils/100 WBC (Bld) 0.7 % Normal 0.0-6.0 [facility] Comment on above: Performed By: #### L [id number] ####Spanish Interpreter: ENRIQUE JEAN BAPTISTE ([id number])[facility] (SBHLAB)[address] Erythrocyte distribution width (RBC) [Ratio] 13.1 % Normal 11.5-15.0 [facility] Comment on above: Performed By: #### L [id number] ####Spanish Interpreter: ENRIQUE JEAN BAPTISTE ([id number])[facility] (SBHLAB)[address] Hematocrit (Bld) [Volume fraction] 41.6 % Normal 40.0-52.0 [facility] Comment on above: Performed By: #### L [id number] ####Spanish Interpreter: ENRIQUE JEAN BAPTISTE ([id number])[facility] (SBHLAB)[address] Hemoglobin (Bld) [Mass/Vol] 14.2 g/dL Normal 13.0-18.0 [facility] Comment on above: Performed By: #### L MD1161 ####Spanish Interpreter: ENRIQUE JEAN BAPTISTE ([id number])[facility] (SBHLAB)[address] IMMATURE GRANS % 0.2 % Normal 0.0-2.0 [facility] Comment on above: Performed By: #### L [id number] ####Spanish Interpreter: ENRIQUE JEAN BAPTISTE ([id number])[facility] (SBAB)[address] IMMATURE GRANS ABSOLUTE 0.0 10*3/uL Normal <0.1 [facility] Comment on above: Performed By: #### L [id number] ####Spanish Interpreter: ENRIQUE JEAN BAPTISTE ([id number])[facility] ([facility])[address] [place] [address] Lymphocytes (Bld) [#/Vol] 2.2 10*3/uL Normal 1.0-4.3 [facility] Comment on above: Performed By: #### L [id number] ####Spanish Interpreter: ENRIQUE JEAN BAPTISTE ([id number])[facility] ([facility])[address] Lymphocytes/100 WBC (Bld) 20.2 % Normal 15.0-45.0 [facility] Comment on above: Performed By: #### L [id number] ####Spanish Interpreter: ENRIQUE JEAN BAPTISTE ([id number])[facility] (SBAB)[address] MCH (RBC) [Entitic mass] 30.8 pg Normal 26.0-34.0 [facility] Comment on above: Performed By: #### L [id number] ####Spanish Interpreter: ENRIQUE JEAN BAPTISTE ([id number])[facility] (SBHLAB)[address] MCHC 34.1 % Normal 30.5-36.0 [facility] Comment on above: Performed By: #### L [id number] ####Spanish Interpreter: ENRIQUE GALDAMEZDonaldHEMANTH ([id number])[facility] (SBHLAB)[address] MCV (RBC) [Entitic vol] 90.2 fL Normal 77.0-99.0 [facility] Comment on above: Performed By: #### L [id number] ####Spanish Interpreter: ENRIQUE ITA ([id number])[facility] (SBHLAB)[address] Monocytes (Bld) [#/Vol] 0.7 10*3/uL Normal 0.0-0.9 [facility] Comment on above: Performed By: #### L [id number] ####Spanish Interpreter: ENRIQUE JEAN BAPTISTE ([id number])[facility] [place] (SB[facility])[address] Monocytes/100 WBC (Bld) 6.8 % Normal 5.0-13.0 [facility] Comment on above: Performed By: #### L [id number] ####Spanish Interpreter: ENRIQUE ITA ([id number])[facility] (SBHLAB)[address] NEUTROPHILS ABSOLUTE 7.7 10*3/uL High 1.8-7.5 [facility] Comment on above: Performed By: #### L [id number] ####Spanish Interpreter: ENRIQUE GARCIAHEMANTH ([id number])[facility] (SBHLAB)[address] Neutrophils/100 WBC (Bld) 71.7 % Normal 38.0-82.0 [facility] Comment on above: Performed By: #### L [id number] ####Spanish Interpreter: ENRIQUE GARCIAHEMANTH ([id number])[facility] (SBHLAB)[address] NRBC 0.0 /100 WBCs Normal 0.0-2.0 [facility] Comment on above: Performed By: #### L [id number] ####Spanish Interpreter: ENRIQUE JEA NBAPTISTE ([id number])[facility] (SBHLAB)[address] Platelet mean volume (Bld) [Entitic vol] 10.4 fL Normal 9.0-12.7 [facility] Comment on above: Performed By: #### L [id number] ####Spanish Interpreter: ENRIQUE JEAN BAPTISTE ([id number])[facility]ALSelin SORIATUBA CITY REG[facility] C[facility] CORPORATIONN (SBHLAB)[address] Platelets (Bld) [#/Vol] 288 10*3/uL Normal 140-440 [facility] Comment on above: Performed By: #### L [id number] ####Spanish Interpreter: ENRIQUE JEAN BAPTISTE ([id number])[facility]ALSelin [facility] (SBHLAB)[address] [place] [address] RBC (Bld) [#/Vol] 4.61 10*6/uL Normal 4.40-5.90 [facility] Comment on above: Performed By: #### L [id number] ####Spanish Interpreter: ENRIQUE GALDAMEZMISTYHEMANTH ([id number])[facility] [place] (SBHLAB)[address] WBC (Bld) [#/Vol] 10.8 10*3/uL High 3.6-10.7 [facility] Comment on above: Performed By: #### L [id number] ####Spanish Interpreter: ENRIQUE JEAN BAPTISTE ([id number])[facility]TDIGN[facility] (SBHLAB)[address] Laboratory - Chemistry and C hemistry - challengeon 02-17-2024 Glucose [Mass/Vol] 151 mg/dL High 70 - 100 mg/dL [facility] Glucose [Mass/Vol] 107 mg/dL High 70 - 100 mg/dL [facility] Magnesium [Mass/Vol] 2.1 mg/dL 1.6 - 2 .3 mg/dL [facility] MAGNESIUMon 02-17-2024 Magnesium [Mass/Vol] 2.1 mg/dL Normal 1.6-2.3 [facility] Comment on above: Performed By: #### L AB15, WTW595, FTF783 ####Spanish Interpreter: ENRIQUE JEAN BAPTISTE ([id number])[facility] (SBAB)[address] [place] [address] Magnesium [Mass/Vol]on 02-16 Interpretation and review of laboratory results Normal [facility] No Panel Informationon 02-16 Interpretation and review of laboratory results Abnormal [facility] Performed by: [facility], [address] [address] CLIA ID: [id number] [facility] Interpretation and review of laboratory results Abnormal [facility] Performed by: [facility], [address] [place] [address] CLIA ID: [id number] [facility] Interpretation and review of laboratory results Abnormal [facility] PHOSPHORUSon 02-17-2024 Phosphate [Mass/Vol] 1.7 mg/dL Low 2.5-4.5 [facility] Comment on above: Performed By: #### L AB15, OIC066, ZUU499 ####Spanish Interpreter: ENRIQUE JEAN BAPTISTE ([id number])[facility] ([facility])[address] [place] [address] Phosphate [Moles/Vol]on 01-28 Phosphate [Mass/Vol] 1.7 mg/dL Low 2.5 - 4 .5 mg/dL [facility] BASIC METABOLIC PANELon 01-28 Anion gap [Moles/Vol] 8 mmol/L Normal 3-13 [facility] Comment on above: Performed By: #### L AB15, BHG545, WZG256 ####Spanish Interpreter: ENRIQUE JEAN BAPTISTE ([id number])[facility] (HLAB)[address] [place] [address] Calcium [Mass/Vol] 7.8 mg/dL Low 8.4-10.4 [facility] Comment on above: Performed By: #### L AB15, IRA026, RXS460 ####Spanish Interpreter: ENRIQUE JEAN BAPTISTE ([id number])[facility] (SBHLAB)[address] Chloride [Moles/Vol] 104 mmol/L Normal 98-107 [facility] Comment on above: Performed By: #### L AB15, RYB493, TYV905 ####Spanish Interpreter: ENRIQUE JEAN BAPTISTE ([id number])[facility]elin SORIATUBA CITY REGION[facility]ALTH CARE CORPORATIONN (SBHLAB)[address] CO2 [Moles/Vol] 18 mmol/L Low 22-30 [facility] Comment on above: Performed By: #### L AB15, EFQ319, WTY618 ####Spanish Interpreter: ENRIQUE JEA NBAPTISTE ([id number])[facility]TD[facility] (SBHLAB)[address] Creatinine [Mass/Vol] 0.52 mg/dL Low 0.66-1.25 [facility] Comment on above: Performed By: #### L AB15, XTS603, LQR652 ####Spanish Interpreter: ENRIQUE JEAN BAPTISTE ([id number])[facility] (SBHLAB)[address] GLOMERULAR FILTRATION RATE ML/MIN/1.73 SQ M.PREDICTED >90.0 Normal >60.0 [facility] Comment on above: Result Comment: Calc ulation based on the Chronic Kidney Disease Epidemiology Collaboration (CKD-EPI) equation refit without adjustment for race Performed By: #### L AB15, HDL613, NZF705 ####Spanish Interpreter: ENRIQUE JEAN BAPTISTE ([id number])[facility]ALSelin [facility]AD[facility] (SBHLAB)[address] Glucose [Mass/Vol] 207 mg/dL High 70-100 [facility] Comment on above: Performed By: #### L AB15, KHG139, UTX213 ####Spanish Interpreter: ENRIQUE JEAN BAPTISTE ([id number])[facility] (SBHLAB)[address] Potassium [Moles/Vol] 3.4 mmol/L Low 3.5-5.1 [facility] Comment on above: Performed By: #### L AB15, RRH164, SEM624 ####Spanish Interpreter: ENRIQUE JEAN BAPTISTE ([id number])[facility]elin DEVLINN (SBHLAB)[address] Sodium [Moles/Vol] 131 mmol/L Low 135-145 [facility] Comment on above: Performed By: #### L AB15, GNY380, LBY408 ####Spanish Interpreter: ENRIQUE JEAN BAPTISTE ([id number])[facility]ITALA GARRETTUBA CITY REGIONAL HEALTH CARE CORPORATIONN (SBHLAB)[address] Urea nitrogen [Mass/Vol] 10 mg/dL Normal 9-20 [facility] Comment on above: Performed By: #### L AB15, ZBA824, VCU906 ####Spanish Interpreter: ENRIQUE JEAN BAPTISTE ([id number])[facility] GARRETTUBA CITY REGION[facility] HEALTH CARE CORPORATIONN (SBHLAB)[address] Anion gap [Moles/Vol] 12 mmol/L Normal 3-13 [facility] Comment on above: Performed By: #### L [id number], IUF303, LAB15, NHQ574 ####Spanish Interpreter: ENRIQUE JEAN BAPTISTE ([id number])[facility]ALSelin SORIATUBA CITY REGION[facility] HEALTH CARE CORPORATIONN (SBHLAB)[address] Calcium [Mass/Vol] 8.3 mg/dL Low 8.4-10.4 [facility] Comment on above: Performed By: #### L YZ8799, OXE186, LAB15, TUS225 ####Spanish Interpreter: ENRIQUE JEAN BAPTISTE ([id number])[facility]A [place]RETERTON (SBHLAB)[address] [place] [address] [place] Chloride [Moles/Vol] 101 mmol/L Normal 98-107 [facility] Comment on above: Performed By: #### L [id number], [id number], LAB15, KYA172 ####Spanish Interpreter: ENRIQUE JEAN BAPTISTE ([id number])[facility]ALSelin SORIATUBA CITY REG[facility] CARE CORPORATIONN (SBHLAB)[address] [place] [address] [place] CO2 [Moles/Vol] 19 mmol/L Low 22-30 [facility] Comment on above: Performed By: #### L [id number], [id number], LAB15, MAJ927 ####Spanish Interpreter: ENRIQUE JEAN BAPTISTE ([id number])[facility]ALSelin [place]INGH (SBHLAB)[address] Creatinine [Mass/Vol] 0.51 mg/dL Low 0.66-1.25 [facility] Comment on above: Performed By: #### L [id number], IFG153, LAB15, BWQ583 ####Spanish Interpreter: ENRIQUE JEAN BAPTISTE ([id number])[facility]ALSelin [place] (SBHLAB)[address] GLOMERULAR FILTRATION RATE ML/MIN/1.73 SQ M.PREDICTED >90.0 Normal >60.0 [facility] Comment on above: Result Comment: Calc ulation based on the Chronic Kidney Disease Epidemiology Collaboration (CKD-EPI) equation refit without adjustment for race ORDER COMMENTS: Slightly Hemolyzed Performed By: #### L [id number], GTI062, LAB15, JIH626 ####Spanish Interpreter: ENRIQUE JEAN BAPTISTE ([id number])[facility]ALSelin [facility] (SBHLAB)[address] Glucose [Mass/Vol] 131 mg/dL High 70-100 [facility] Comment on above: Performed By: #### L [id number], EMA585, LAB15, SQX028 ####Spanish Interpreter: ENRIQUE JEAN BAPTISTE ([id number])[facility] (SBHLAB)[address] Potassium [Moles/Vol] 3.1 mmol/L Low 3.5-5.1 [facility] Comment on above: Performed By: #### L [id number], HCD916, LAB15, GFG902 ####Spanish Interpreter: ENRIQUE JEAN BAPTISTE ([id number])[facility] (SBHLAB)[address] Sodium [Moles/Vol] 132 mmol/L Low 135-145 [facility] Comment on above: Performed By: #### L [id number], DJQ695, LAB15, YRZ190 ####Spanish Interpreter: ENRIQUE JEAN BAPTISTE ([id number])[facility]ALSelin [facility] (SBHLAB)[address] Urea nitrogen [Mass/Vol] 13 mg/dL Normal - [facility] Comment on above: Performed By: #### L [id number], ZJO159, LAB15, YTD796 ####Spanish Interpreter: ENRIQUE JEAN BAPTISTE ([id number])[facility]TD[facility] (SBHLAB)[address] BETA HYDROXYBUTYRATEon 02-15 BETA HYDROXYBUTYRATE 1.58 mg/dL Normal 0.20-2.81 [facility] Comment on above: Performed By: #### L [id number], LBS631, LAB15, NKA746 ####Spanish Interpreter: ENRIQUE JEAN BAPTISTE ([id number])[facility] (SBHLAB)[address] Basic metabolic 1998 panelon 02-16-2024 Anion gap [Moles/Vol] 8 mmol/L 3 - 13 mmol/L [facility] Calcium [Mass/Vol] 7.8 mg/dL Low 8.4 - 10. 4 mg/dL [facility] Chloride [Moles/Vol] 104 mmol/L 98 - 10 7 mmol/L [facility] CO2 [Moles/Vol] 18 mmol/L Low 22 - 30 mmol/L [facility] Creatinine [Mass/Vol] 0.52 mg/dL Low 0.66 - 1.25 mg/dL [facility] GFR/1.73 sq M.predicted (S/P/Bld) [Vol rate/Area] - PINF [facility] Comment on above: Calculation based on the Chronic Kidney Disease Epidemiology Collaboration (CKD-EPI) equation refit without adjustment for race Glucose [Mass/Vol] 207 mg/dL High 70 - 100 mg/dL [facility] Interpretation and review of laboratory results Abnormal [facility] Potassium [Moles/Vol] 3.4 mmol/L Low 3.5 - 5.1 mmol/L [facility] Sodium [Moles/Vol] 131 mmol/L Low 135 - 145 mmol/L [facility] Urea nitrogen [Mass/Vol] 10 mg/dL 9 - 20 mg/dL [facility] Anion gap [Moles/Vol] 12 mmol/L 3 - 13 mmol/L [facility] Calcium [Mass/Vol] 8.3 mg/dL Low 8.4 - 10. 4 mg/dL [facility] Chloride [Moles/Vol] 101 mmol/L 98 - 10 7 mmol/L [facility] CO2 [Moles/Vol] 19 mmol/L Low 22 - 30 mmol/L [facility] Creatinine [Mass/Vol] 0.51 mg/dL Low 0.66 - 1.25 mg/dL [facility] GFR/1.73 sq M.predicted (S/P/Bld) [Vol rate/Area] - PINF [facility] Comment on above: Calculation based on the Chronic Kidney Disease Epidemiology Collaboration (CKD-EPI) equation refit without adjustment for race Glucose [Mass/Vol] 131 mg/dL High 70 - 100 mg/dL [facility] Interpretation and review of laboratory results Abnormal [facility] Potassium [Moles/Vol] 3.1 mmol/L Low 3.5 - 5.1 mmol/L [facility] Sodium [Moles/Vol] 132 mmol/L Low 135 - 145 mmol/L [facility] Urea nitrogen [Mass/Vol] 13 mg/dL 9 - 20 mg/dL [facility] CARECOORDon 02-16-2024 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 Manuel Nunez RN Normal [facility] CBC W Auto Differential pane l (Bld)Ordered By: Saniya Chong on 02-16-2024 Basophils (Bld) [#/Vol] 0 10*3/uL 0.0 - 0.2 10*3/uL [facility] [place] Basophils/100 WBC (Bld) 0.2 % 0.0 - 2.0 % [facility] Eosinophils (Bld) [#/Vol] 0.1 10*3/uL 0.0 - 0.5 10*3/uL [facility] Eosinophils/100 WBC (Bld) 0.7 % 0.0 - 6.0 % [facility] Erythrocyte distribution width (RBC) [Ratio] 13.2 % 11.5 - 15.0 % [facility] Hematocrit (Bld) [Volume fraction] 39.3 % Low 40.0 - 52.0 % [facility] Hemoglobin (Bld) [Mass/Vol] 13.8 g/dL 13.0 - 18.0 g/dL [facility] Immature granulocytes (Bld) [#/Vol] 0 10*3/uL NINF - 0.1 10*3/uL [facility] Immature granulocytes/100 WBC (Bld) 0.3 % 0.0 - 2.0 % [facility] Interpretation and review of laboratory results Abnormal [facility] Lymphocytes (Bld) [#/Vol] 1.5 10*3/uL 1.0 - 4.3 10*3/uL [facility] Lymphocytes/100 WBC (Bld) 11.6 % Low 15.0 - 45.0 % [facility] MCH (RBC) [Entitic mass] 31.4 pg 26.0 - 34.0 pg [facility] MCHC (RBC) [Mass/Vol] 35.1 % 30.5 - 36.0 % [facility] MCV (RBC) [Entitic vol] 89.5 fL 77.0 - 99.0 fL [facility] Monocytes (Bld) [#/Vol] 1 10*3/uL High 0.0 - 0.9 10*3/uL [facility] Monocytes/100 WBC (Bld) 7.4 % 5.0 - 13.0 % [facility] Neutrophils (Bld) [#/Vol] 10.4 10*3/uL High 1.8 - 7.5 10*3/uL [facility] Neutrophils/100 WBC (Bld) 79.8 % 38.0 - 82.0 % [facility] Nucleated RBC/100 WBC (Bld) [Ratio] 0 % [facility] Platelet mean volume (Bld) [Entitic vol] 10.6 fL 9.0 - 12.7 fL [facility] Platelets (Bld) [#/Vol] 278 10*3/uL 140 - 440 10*3/uL [facility] RBC (Bld) [#/Vol] 4.39 10*6/uL Low 4.40 - 5.9 0 10*6/uL [facility] WBC (Bld) [#/Vol] 13 10*3/uL High 3.6 - 10.7 10*3/uL [facility] CBC WITH AUTO DIFFERENTIALon 02-16-2024 Basophils (Bld) [#/Vol] 0.0 10*3/uL Normal 0.0-0.2 [facility] Comment on above: Performed By: #### L [id number] ####Spanish Interpreter: ENRIQUE JEAN BAPTISTE ([id number])[facility] [place] (SBHLAB)[address] Basophils/100 WBC (Bld) 0.2 % Normal 0.0-2.0 [facility] Comment on above: Performed By: #### L [id number] ####Spanish Interpreter: ENRIQUE JEAN BAPTISTE ([id number])[facility] [place] (SBHLAB)[address] [place] [address] [place] Eosinophils (Bld) [#/Vol] 0.1 10*3/uL Normal 0.0-0.5 [facility] Comment on above: Performed By: #### L [id number] ####Spanish Interpreter: ENRIQUE JEAN BAPTISTE ([id number])[facility] [place] (SBHLAB)[address] Eosinophils/100 WBC (Bld) 0.7 % Normal 0.0-6.0 [facility] Comment on above: Performed By: #### L [id number] ####Spanish Interpreter: ENRIQUE JEAN BAPTISTE ([id number])[facility] [place] (SBHLAB)[address] Erythrocyte distribution width (RBC) [Ratio] 13.2 % Normal 11.5-15.0 [facility] Comment on above: Performed By: #### L [id number] ####Spanish Interpreter: ENRIQUE JEAN BAPTISTE ([id number])[facility] [place] (SBHLAB)[address] Hematocrit (Bld) [Volume fraction] 39.3 % Low 40.0-52.0 [facility] Comment on above: Performed By: #### L [id number] ####Spanish Interpreter: ENRIQUE JEAN BAPTISTE ([id number])[facility] (SBAB)[address] Hemoglobin (Bld) [Mass/Vol] 13.8 g/dL Normal 13.0-18.0 [facility] Comment on above: Performed By: #### L [id number] ####Spanish Interpreter: ENRIQUE JEAN BAPTISTE ([id number])[facility] ([facility])[address] IMMATURE GRANS % 0.3 % Normal 0.0-2.0 [facility] Comment on above: Performed By: #### L [id number] ####Spanish Interpreter: ENRIQUE JEAN BAPTISTE ([id number])[facility] ([facility])[address] IMMATURE GRANS ABSOLUTE 0.0 10*3/uL Normal <0.1 [facility] Comment on above: Performed By: #### L [id number] ####Spanish Interpreter: ENRIQUE JEAN BAPTISTE ([id number])[facility] ([facility])[address] [place] [address] Lymphocytes (Bld) [#/Vol] 1.5 10*3/uL Normal 1.0-4.3 [facility] Comment on above: Performed By: #### L [id number] ####Spanish Interpreter: ENRIQUE JEAN BAPTISTE ([id number])[facility] ([facility])[address] Lymphocytes/100 WBC (Bld) 11.6 % Low 15.0-45.0 [facility] Comment on above: Performed By: #### L [id number] ####Spanish Interpreter: ENRIQUE JEAN BAPTISTE ([id number])[facility] ([facility])[address] MCH (RBC) [Entitic mass] 31.4 pg Normal 26.0-34.0 [facility] Comment on above: Performed By: #### L [id number] ####Spanish Interpreter: ENRIQUE JEAN BAPTISTE ([id number])[facility] [place] (SBHLAB)[address] MCHC 35.1 % Normal 30.5-36.0 [facility] Comment on above: Performed By: #### L [id number] ####Spanish Interpreter: ENRIQUE GARCIAHEMANTH ([id number])[facility] [place] (SBHLAB)[address] MCV (RBC) [Entitic vol] 89.5 fL Normal 77.0-99.0 [facility] Comment on above: Performed By: #### L [id number] ####Spanish Interpreter: ENRIQUE GARCIAHEMANTH ([id number])[facility] [place] (SBHLAB)[address] [place] [address] Monocytes (Bld) [#/Vol] 1.0 10*3/uL High 0.0-0.9 [facility] Comment on above: Performed By: #### L [id number] ####Spanish Interpreter: ENRIQUE JEAN BAPTISTE ([id number])[facility] [place] (SBHLAB)[address] [place] [address] Monocytes/100 WBC (Bld) 7.4 % Normal 5.0-13.0 [facility] Comment on above: Performed By: #### L [id number] ####Spanish Interpreter: ENRIQUE JEAN BAPTISTE ([id number])[facility] [place] (SBHLAB)[address] NEUTROPHILS ABSOLUTE 10.4 10*3/uL High 1.8-7.5 [facility] Comment on above: Performed By: #### L [id number] ####Spanish Interpreter: ENRIQUE JEAN BAPTISTE ([id number])[facility] [place] (SBHLAB)[address] [place] [address] Neutrophils/100 WBC (Bld) 79.8 % Normal 38.0-82.0 [facility] Comment on above: Performed By: #### L [id number] ####Spanish Interpreter: ENRIQUE JEAN BAPTISTE ([id number])[facility]elin [place] (SBHLAB)[address] [place] [address] NRBC 0.0 /100 WBCs Normal 0.0-2.0 [facility] Comment on above: Performed By: #### L [id number] ####Spanish Interpreter: ENRIQUE JEAN BAPTISTE ([id number])[facility]ITALA BARBTUBA CITY REG[facility] C[facility] CORPORATIONN (SBHLAB)[address] Platelet mean volume (Bld) [Entitic vol] 10.6 fL Normal 9.0-12.7 [facility] Comment on above: Performed By: #### L [id number] ####Spanish Interpreter: ENRIQUE JEAN BAPTISTE ([id number])[facility]elin [facility] (SBHLAB)[address] [place] [address] Platelets (Bld) [#/Vol] 278 10*3/uL Normal 140-440 [facility] Comment on above: Performed By: #### L [id number] ####Spanish Interpreter: ENRIQUE JEAN BAPTISTE ([id number])[facility]elin [facility] (SBHLAB)[address] [place] [address] RBC (Bld) [#/Vol] 4.39 10*6/uL Low 4.40-5.90 [facility] Comment on above: Performed By: #### L [id number] ####Spanish Interpreter: ENRIQUE JEAN BAPTISTE ([id number])[facility]ALSelin BARBTUBA CITY [facility]ATIONN (SBHLAB)[address] [place] [address] WBC (Bld) [#/Vol] 13.0 10*3/uL High 3.6-10.7 [facility] Comment on above: Performed By: #### L [id number] ####Spanish Interpreter: ENRIQUE JEAN BAPTISTE ([id number])[facility] (SBHLAB)[address] [place] [address] Consulton 02-16-2024 Consult Nutrition Assessment Type and [...] intake (Comment) (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 male admits with nausea and vomiting, dehydration, DKA. pt reports n/v improved and tolerated breakfast today. 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 Pt declines need for diet review at this time states he is familiar with CHO controlled diet but admits to non-compliance pt declines written diet materials. bed scale wt 172 lb Estimated Daily Nutrient Needs: Energy Requirements Based On: Kcal/kg Weight Used for Energy Requirements: [place] Weight for Energy Calculation (kg): 75 kg Total Energy Requirements (kcals/day): 1954-4544 (25-30) Weight Used for Protein Requirements: [place] Weight in Kg Used for Protein Requirements: [...] wt hx) % Weight Change (Calculated): -9.5 [place] Body Weight (lbs) (Calculated): 166 lbs [place] Body Weight (Kg) (Calculated): 75 kg % [place] Body Weight (Calculated): 103.6 % BMI (kg/m2) [...] Continue current diet Nadja Cisse RD Contact: *[phone] [facility] ECG 12-LEADon 02-16-2024 ECG 12-LEAD IMPRESSION: Sinus rhythm Compared to ECG 08/14/22 No significant change Electronically Signed On 02-16-2024 04:59:57 [address] [facility] IDNon 02-16-2024 IDN The patient is Moderately [...] of glucose balance is achieved Outcome: Progressing Normal [facility] IDN The patient is Moderately Unstable - [...] of glucose balance is achieved Outcome: Progressing Normal [facility] Laboratory - Chemistry and C hemistry - challengeon 02-16-2024 Glucose [Mass/Vol] 202 mg/dL High 70 - 100 mg/dL [facility] Glucose [Mass/Vol] 101 mg/dL High 70 - 100 mg/dL [facility] Glucose [Mass/Vol] 90 mg/dL 70 - 100 mg/dL [facility] Magnesium [Mass/Vol] 1.8 mg/dL 1.6 - 2 .3 mg/dL [facility] Glucose [Mass/Vol] 186 mg/dL High 70 - 100 mg/dL [facility] Glucose [Mass/Vol] 109 mg/dL High 70 - 100 mg/dL [facility] Glucose [Mass/Vol] 92 mg/dL 70 - 100 mg/dL [facility] Beta hydroxybutyrate [Mass/Vol] 1.58 mg/dL 0.20 - 2.81 mg/dL [facility] Magnesium [Mass/Vol] 2 mg/dL 1.6 - 2 .3 mg/dL [facility] Glucose [Mass/Vol] 121 mg/dL High 70 - 100 mg/dL [facility] Laboratory - Drug toxicology Ordered By: Shraddha Nurse on 02-16-2024 Amphetamines Ql (U) Negative Negative [facility] Barbiturates screen method Nom (U) Negative Negative [facility] Benzodiazepines screen method Nom (U) Negative Negative [facility] Cocaine Ql (U) Negative Negative [facility] Ethanol [Mass/Vol] Negative Negative [facility] Methadone Ql (U) Negative Negative [facility] Opiates Screen Ql (U) Negative Negative [facility] MAGNESIUMon 02-16-2024 Magnesium [Mass/Vol] 1.8 mg/dL Normal 1.6-2.3 [facility] Comment on above: Performed By: #### L AB15, [id number], SHQ627 ####Spanish Interpreter: ENRIQUE JEAN BAPTISTE ([id number])[facility] (SBHLAB)[address] [place] [address] Magnesium [Mass/Vol] 2.0 mg/dL Normal 1.6-2.3 [facility] Comment on above: Result Comment: KAMALA Mcdaniels COMMENTS: Slightly Hemolyzed Performed By: #### L [id number], LPL119, LAB15, BNQ167 ####Spanish Interpreter: ENRIQUE JEAN BAPTISTE ([id number])[facility]ALSelin GARRETEDITA (SBHLAB)[address] [place] [address] No Panel Informationon 02-15 Interpretation and review of laboratory results Abnormal [facility] Performed by: [facility], [address] [place] [address] CLIA ID: [id number] [facility] Interpretation and review of laboratory results Abnormal [facility] Performed by: [facility], [address] [place] [address] CLIA ID: [id number] [facility] Interpretation and review of laboratory results Normal [facility] Performed by: [facility], [address] [place] [address] CLIA ID: [id number] [facility] Interpretation and review of laboratory results Normal [facility] Interpretation and review of laboratory results Abnormal [facility] Performed by: [facility], [address] [place] [address] CLIA ID: [id number] [facility] Interpretation and review of laboratory results Abnormal [facility] Performed by: [facility], [address] [place] [id number] CLIA ID: [id number] [facility] Sinus rhythm Compared to ECG 08/14/22 No significant change Electronically Signed On 02-16-2024 04:59:57 EDT by Kendell Florian D O - 02/16/2024 IMPRESSION: Sinus rhythm Compared to ECG 08/14/22 No significant change Electronically Signed On 02-16-2024 04:59:57 EDT by Kendell Wong [facility] Interpretation and review of laboratory results Normal [facility] Performed by: [facility], [address] [place] [address] CLIA ID: [id number] [facility] Interpretation and review of laboratory results Normal [facility] Interpretation and review of laboratory results Normal [facility] Slightly Hemolyzed [facility] Interpretation and review of laboratory results Abnormal [facility] Performed by: [facility], [address] [place] [id number] CLIA ID: [id number] [facility] No Panel InformationOrdered By: Shraddha Curtis on 02-16-2024 BUPRENORPHINE SCREEN Positive Negative [facility] FENTANYL Positive Negative [facility] OXYCODONE/OXYMORPHONE Negative Negative [facility] PCP Negative Negative [facility] THC Negative Negative [facility] The expected value f or [...] treatment only. Analysis performed using non-forensic procedures. [facility] No Panel InformationOrdered By: Kendell Wong on 02-16-2024 P [place] 54 degrees [facility] Work Phone: [place] Interval 169 ms [facility] Work Phone: QRS [place] 10 degrees [facility] Work Phone: QRSD Interval 100 ms [facility] Work Phone: QT Interval 375 ms [facility] Work Phone: QTC Interval 466 ms [facility] Work Phone: T Wave [place] 54 degrees [facility] Work Phone: [facility] Work Phone: PHOSPHORUSon 02-16-2024 Phosphate [Mass/Vol] 2.7 mg/dL Normal 2.5-4.5 [facility] [place] [facility] Comment on above: Performed By: #### L AB15, [id number], ILN389 ####Spanish Interpreter: ENRIQUE JEAN BAPTISTE ([id number])[facility] (SBHLAB)[address] [place] [address] Phosphate [Mass/Vol] 2.6 mg/dL Normal 2.5-4.5 [facility] Comment on above: Result Comment: KAMALA Mcdaniels COMMENTS: Slightly Hemolyzed Performed By: #### L [id number], TSN859, LAB15, GVJ987 ####Spanish Interpreter: ENRIQUE JEAN BAPTISTE ([id number])[facility]elin [place] (SBHLAB)[address] [place] [id number] [place] [address] Phosphate [Moles/Vol]on 01-28 Phosphate [Mass/Vol] 2.7 mg/dL 2.5 - 4 .5 mg/dL [facility] Phosphate [Mass/Vol] 2.6 mg/dL 2.5 - 4 .5 mg/dL [facility] [place] Progress Noteon 02-16-2024 Progress Note ICU Transfer [facility]li [facility] Transfer Med Reconciliation (resume home meds if able, convert to PO if able) Complete Antibiotics (name, indication, duration, convert to PO if able) None Steroid (indication, duration, convert to PO if able) None Anticipated [place] Medications (ICU initiated) or Dose Changes and Indication Yes, addressed in today's progress note Permanently Discontinued Home Medications and Reason for medication contraindication No [place] Catheter (please remove if able. Note: place DC order) No Central Line (please remove if able. Note: place DC order) No Transfer Discussed with: [place]. Shell [place] [facility] If additional questions for ICU team within 24 hours of ICU transfer, page [phone] [facility] Progress Note Accepted ICU transfe r from Dr. Escalante [facility] Vital signsOrdered By: Halima Wong on 02-16-2024 Heart rate 92 /min bpm [facility] Work Phone: BASIC METABOLIC PANELon 01-27 Anion gap [Moles/Vol] 22 mmol/L High 3-13 [facility] Comment on above: Performed By: #### L AB103, RRT942, LAB15, [id number] ####Spanish Interpreter: ENRIQUE JEAN BAPTISTE ([id number])[facility] ([facility])[address] Calcium [Mass/Vol] 8.7 mg/dL Normal 8.4-10.4 [facility] Comment on above: Performed By: #### L AB103, JIL280, LAB15, JDI1993 ####Spanish Interpreter: ENRIQUE JEAN BAPTISTE ([id number])[facility] (SBAB)[address] [place] [address] [place] Chloride [Moles/Vol] 98 mmol/L Normal 98-107 [facility] Comment on above: Performed By: #### L AB103, MNP923, LAB15, RQL8023 ####Spanish Interpreter: ENRIQUE JEAN BAPTISTE ([id number])[facility] (SBHLAB)[address] [place] [address] [place] CO2 [Moles/Vol] 13 mmol/L Low 22-30 [facility] Comment on above: Performed By: #### L AB103, YYU436, LAB15, YKK4010 ####Spanish Interpreter: ENRIQUE JEAN BAPTISTE ([id number])[facility] (SBHLAB)[address] [place] [address] [place] Creatinine [Mass/Vol] 0.56 mg/dL Low 0.66-1.25 [facility] Comment on above: Performed By: #### L AB103, [id number], LAB15, [id number] ####Spanish Interpreter: ENRIQUE JEAN BAPTISTE ([id number])[facility] (SBHLAB)[address] GLOMERULAR FILTRATION RATE ML/MIN/1.73 SQ M.PREDICTED >90.0 Normal >60.0 [facility] Comment on above: Result Comment: Calc ulation based on the Chronic Kidney Disease Epidemiology Collaboration (CKD-EPI) equation refit without adjustment for race Performed By: #### L AB103, RBB102, LAB15, [id number] ####Spanish Interpreter: ENRIQUE JEAN BAPTISTE ([id number])[facility] (SBHLAB)[address] [place] [address] [place] Glucose [Mass/Vol] 241 mg/dL High 70-100 [facility] Comment on above: Performed By: #### L AB103, HUA647, LAB15, [id number] ####Spanish Interpreter: ENRIQUE JEAN BAPTISTE ([id number])[facility] (HLAB)[address] Potassium [Moles/Vol] 3.5 mmol/L Normal 3.5-5.1 [facility] Comment on above: Performed By: #### L AB103, FZF685, LAB15, [id number] ####Spanish Interpreter: ENRIQUE JEAN BAPTISTE ([id number])[facility] (SBHLAB)[address] [place] [address] [place] Sodium [Moles/Vol] 133 mmol/L Low 135-145 [facility] Comment on above: Performed By: #### L AB103, HUP285, LAB15, SVA3401 ####Spanish Interpreter: ENRIQUE JEAN BAPTISTE ([id number])[facility] (SBHLAB)[address] [place] [address] [place] Urea nitrogen [Mass/Vol] 15 mg/dL Normal 01-16 [facility] Comment on above: Performed By: #### L AB103, QIY551, LAB15, [id number] ####Spanish Interpreter: ENRIQUE JEAN BAPTISTE ([id number])[facility] (SBHLAB)[address] BETA HYDROXYBUTYRATEon 02-14 BETA HYDROXYBUTYRATE 31.40 mg/dL High 0.20-2.81 [facility] Comment on above: Performed By: #### L AB103, WQO156, LAB15, WXR2951 ####Spanish Interpreter: ENRIQUE JEAN BAPTISTE ([id number])[facility] (SBHLAB)[address] BETA HYDROXYBUTYRATE 110.00 mg/dL High 0.20-2.81 [facility] Comment on above: Performed By: #### L AB17, DHE436, LAB99, [id number], JSI306, HHH671 ####Spanish Interpreter: ENRIQUE JEAN BAPTISTE ([id number])[facility]ALSelin DEVLINDiego (SBHLAB)[address] BLOOD GAS, VENOUSon 02-15-20 24 Base excess Calc (BldV) [Moles/Vol] -11.38261 mmol/L Low -3.0-3.0 [facility] Comment on above: Performed By: #### L AB79 ####Spanish Interpreter: ENRIQUE JEAN BAPTISTE ([id number])[facility]ALS[facility] [place] (SBHLAB)[address] [place] [address] [place] CO2 [Moles/Vol] 12.2 mmol/L Low 23.0-30.0 [facility] Comment on above: Performed By: #### L AB79 ####Spanish Interpreter: ENRIQUE JEAN BAPTISTE ([id number])[facility]ALSelin SORIATUBA CITY REGIONAL HEALTH CARE CORPORATIONDiego (SBHLAB)[address] HCO3 (Bld) [Moles/Vol] 11.5 mmol/L Low 21.0-30.0 [facility] Comment on above: Performed By: #### L AB79 ####Spanish Interpreter: ENRIQUE JEAN BAPTISTE ([id number])[facility]ITALA [place] (SBHLAB)[address] Hemoglobin (Bld) [Mass/Vol] 19.7 g/dL High Screen only [facility] Comment on above: Performed By: #### L AB79 ####Spanish Interpreter: ENRIQUEFIDEL JEAN BAPTISTE ([id number])[facility] [place] (SBHLAB)[address] OXYGEN (MM HG) IN VENOUS BLOOD 54.2 mm Hg Normal [facility] Comment on above: Performed By: #### L AB79 ####Spanish Interpreter: ENRIQUEFIDEL JEAN BAPTISTE ([id number])[facility] [place] (SBHLAB)[address] OXYGEN SATURATION (%) IN VENOUS BLOOD 85.0 % Normal [facility] Comment on above: Performed By: #### L AB79 ####Spanish Interpreter: ENRIQUEFIDEL JEAN BAPTISTE ([id number])[facility] [place] (SBHLAB)[address] PCO2, AMBROSIO 22.4 mm Hg Low 38.0-56.0 [facility] Comment on above: Performed By: #### L AB79 ####Spanish Interpreter: ENRIQUE ITA ([id number])[facility] [place] (SBHLAB)[address] PH VENOUS 7.329 Normal 7.320-7.420 [facility] Comment on above: Performed By: #### L AB79 ####Spanish Interpreter: ENRIQUEFIDEL JEAN BAPTISTE ([id number])[facility] [place] (SBHLAB)[address] SOURCE OF OXYGEN Room Air Normal [facility] Comment on above: Result Comment: KAMALA [...] a syringe. Performed By: #### L AB79 ####Spanish Interpreter: ENRIQUE JEAN BAPTISTE ([id number])[facility]ENTERKAYE (SBHLAB)[address] [place] [address] Basic metabolic 1998 panelon 02-15-2024 Anion gap [Moles/Vol] 22 mmol/L High 3 - 13 mmol/L [facility] Calcium [Mass/Vol] 8.7 mg/dL 8.4 - 10. 4 mg/dL [facility] Chloride [Moles/Vol] 98 mmol/L 98 - 10 7 mmol/L [facility] CO2 [Moles/Vol] 13 mmol/L Low 22 - 30 mmol/L [facility] Creatinine [Mass/Vol] 0.56 mg/dL Low 0.66 - 1.25 mg/dL [facility] GFR/1.73 sq M.predicted (S/P/Bld) [Vol rate/Area] - PINF [facility] Comment on above: Calculation based on the Chronic Kidney Disease Epidemiology Collaboration (CKD-EPI) equation refit without adjustment for race Glucose [Mass/Vol] 241 mg/dL High 70 - 100 mg/dL [facility] Interpretation and review of laboratory results Abnormal [facility] Potassium [Moles/Vol] 3.5 mmol/L 3.5 - 5.1 mmol/L [facility] Sodium [Moles/Vol] 133 mmol/L Low 135 - 145 mmol/L [facility] Urea nitrogen [Mass/Vol] 15 mg/dL 9 - 20 mg/dL [facility] CBC W Auto Differential pane l (Bld)on 02-15-2024 Basophils (Bld) [#/Vol] 0 10*3/uL 0.0 - 0.2 10*3/uL [facility] Basophils/100 WBC (Bld) 0.2 % 0.0 - 2.0 % [facility] Eosinophils (Bld) [#/Vol] 0 10*3/uL 0.0 - 0.5 10*3/uL [facility] Eosinophils/100 WBC (Bld) 0.1 % 0.0 - 6.0 % [facility] Erythrocyte distribution width (RBC) [Ratio] 13 % 11.5 - 15.0 % [facility] Hematocrit (Bld) [Volume fraction] 46.4 % 40.0 - 52.0 % [facility] Hemoglobin (Bld) [Mass/Vol] 16.1 g/dL 13.0 - 18.0 g/dL [facility] [place] Immature granulocytes (Bld) [#/Vol] 0.1 10*3/uL High NINF - 0.1 10*3/uL [facility] [place] Immature granulocytes/100 WBC (Bld) 0.5 % 0.0 - 2.0 % [facility] Interpretation and review of laboratory results Abnormal [facility] Lymphocytes (Bld) [#/Vol] 1.3 10*3/uL 1.0 - 4.3 10*3/uL [facility] Lymphocytes/100 WBC (Bld) 7.2 % Low 15.0 - 45.0 % [facility] MCH (RBC) [Entitic mass] 31 pg 26.0 - 34.0 pg [facility] MCHC (RBC) [Mass/Vol] 34.7 % 30.5 - 36.0 % [facility] MCV (RBC) [Entitic vol] 89.4 fL 77.0 - 99.[address] [facility] [place] Monocytes (Bld) [#/Vol] 0.8 10*3/uL 0.0 - 0.9 10*3/uL [facility] Monocytes/100 WBC (Bld) 4.8 % Low 5.0 - 13.0 % [facility] Neutrophils (Bld) [#/Vol] 15.1 10*3/uL High 1.8 - 7.5 10*3/uL [facility] Neutrophils/100 WBC (Bld) 87.2 % High 38.0 - 82.0 % [facility] Nucleated RBC/100 WBC (Bld) [Ratio] 0 % [facility] [place] Platelet mean volume (Bld) [Entitic vol] 10.4 fL 9.0 - 12.[address] [facility] [place] Platelets (Bld) [#/Vol] 343 10*3/uL 140 - 440 10*3/uL [facility] RBC (Bld) [#/Vol] 5.19 10*6/uL 4.40 - 5.9 0 10*6/uL [facility] WBC (Bld) [#/Vol] 17.3 10*3/uL High 3.6 - 10.7 10*3/uL [facility] CBC WITH AUTO DIFFERENTIALon 02-15-2024 Basophils (Bld) [#/Vol] 0.0 10*3/uL Normal 0.0-0.2 [facility] Comment on above: Performed By: #### L [id number] ####Spanish Interpreter: ENRIQUE JEAN BAPTISTE ([id number])[facility] [place] (SBHLAB)[address] Basophils/100 WBC (Bld) 0.2 % Normal 0.0-2.0 [facility] Comment on above: Performed By: #### L [id number] ####Spanish Interpreter: ENRIQUE JEAN BAPTISTE ([id number])[facility] [place] (SBHLAB)[address] [place] [address] Eosinophils (Bld) [#/Vol] 0.0 10*3/uL Normal 0.0-0.5 [facility] Comment on above: Performed By: #### L [id number] ####Spanish Interpreter: ENRIQUE JEAN BAPTISTE ([id number])[facility] [place] (SBHLAB)[address] [place] [address] Eosinophils/100 WBC (Bld) 0.1 % Normal 0.0-6.0 [facility] Comment on above: Performed By: #### L [id number] ####Spanish Interpreter: ENRIQUE JEAN BAPTISTE ([id number])[facility] [place] (SBHLAB)[address] [place] [address] Erythrocyte distribution width (RBC) [Ratio] 13.0 % Normal 11.5-15.0 [facility] Comment on above: Performed By: #### L [id number] ####Spanish Interpreter: ENRIQUE JEAN BAPTISTE ([id number])[facility] [place] (SBHLAB)[address] [place] [address] Hematocrit (Bld) [Volume fraction] 46.4 % Normal 40.0-52.0 [facility] Comment on above: Performed By: #### L [id number] ####Spanish Interpreter: ENRIQUE JEAN BAPTISTE ([id number])[facility]A [facility]BTU[facility] CORPORATIONN (SBHLAB)[address] Hemoglobin (Bld) [Mass/Vol] 16.1 g/dL Normal 13.0-18.0 [facility] Comment on above: Performed By: #### L [id number] ####Spanish Interpreter: ENRIQUE JEAN BAPTISTE ([id number])[facility]A [facility]BTU[facility]PORATIONN (SBHLAB)[address] IMMATURE GRANS % 0.5 % Normal 0.0-2.0 [facility] Comment on above: Performed By: #### L [id number] ####Spanish Interpreter: ENRIQUE JEAN BAPTISTE ([id number])[facility] (SBAB)[address] IMMATURE GRANS ABSOLUTE 0.1 10*3/uL High <0.1 [facility] Comment on above: Performed By: #### L [id number] ####Spanish Interpreter: ENRIQUE JEAN BAPTISTE ([id number])[facility] (SBHLAB)[address] Lymphocytes (Bld) [#/Vol] 1.3 10*3/uL Normal 1.0-4.3 [facility] Comment on above: Performed By: #### L [id number] ####Spanish Interpreter: ENRIQUE JEAN BAPTISTE ([id number])[facility] (SBHLAB)[address] Lymphocytes/100 WBC (Bld) 7.2 % Low 15.0-45.0 [facility] Comment on above: Performed By: #### L [id number] ####Spanish Interpreter: ENRIQUE JEAN BAPTISTE ([id number])[facility] (SBHLAB)[address] MCH (RBC) [Entitic mass] 31.0 pg Normal 26.0-34.0 [facility] Comment on above: Performed By: #### L [id number] ####Spanish Interpreter: ENRIQUE JEAN BAPTISTE ([id number])[facility] [place] (SBHLAB)[address] MCHC 34.7 % Normal 30.5-36.0 [facility] Comment on above: Performed By: #### L [id number] ####Spanish Interpreter: ENRIQUE GARCIAHEMANTH ([id number])[facility] [place] (SBHLAB)[address] MCV (RBC) [Entitic vol] 89.4 fL Normal 77.0-99.0 [facility] Comment on above: Performed By: #### L [id number] ####Spanish Interpreter: ENRIQUE JEAN BAPTISTE ([id number])[facility] [place] (SBHLAB)[address] Monocytes (Bld) [#/Vol] 0.8 10*3/uL Normal 0.0-0.9 [facility] Comment on above: Performed By: #### L [id number] ####Spanish Interpreter: ENRIQUE JEAN BAPTISTE ([id number])[facility] [place] (SBHLAB)[address] Monocytes/100 WBC (Bld) 4.8 % Low 5.0-13.0 [facility] Comment on above: Performed By: #### L [id number] ####Spanish Interpreter: ENRIQUE JEAN BAPTISTE ([id number])[facility] [place] (SBHLAB)[address] NEUTROPHILS ABSOLUTE 15.1 10*3/uL High 1.8-7.5 [facility] Comment on above: Performed By: #### L [id number] ####Spanish Interpreter: ENRIQUE JEAN BAPTISTE ([id number])[facility] [place] (SBHLAB)[address] Neutrophils/100 WBC (Bld) 87.2 % High 38.0-82.0 [facility] Comment on above: Performed By: #### L [id number] ####Spanish Interpreter: ENRIQUE JEAN BAPTISTE ([id number])[facility] [place] (SBHLAB)[address] NRBC 0.0 /100 WBCs Normal 0.0-2.0 [facility] Comment on above: Performed By: #### L [id number] ####Spanish Interpreter: ENRIQUE JEAN BAPTISTE ([id number])[facility]ALSelin DEVLINN (SBHLAB)[address] Platelet mean volume (Bld) [Entitic vol] 10.4 fL Normal 9.0-12.7 [facility] Comment on above: Performed By: #### L [id number] ####Spanish Interpreter: ENRIQUE JEAN BAPTISTE ([id number])[facility]ALSelin SORIATUBA CITY REGION[facility] HEALTH CARE CORPORATIONN (SBHLAB)[address] Platelets (Bld) [#/Vol] 343 10*3/uL Normal 140-440 [facility] Comment on above: Performed By: #### L [id number] ####Spanish Interpreter: ENRIQUE JEAN BAPTISTE ([id number])[facility]elin SORIATUBA CITY REGION[facility] CARE CORPORATIONN (SBHLAB)[address] [place] [address] RBC (Bld) [#/Vol] 5.19 10*6/uL Normal 4.40-5.90 [facility] Comment on above: Performed By: #### L [id number] ####Spanish Interpreter: ENRIQUE JEAN BAPTISTE ([id number])[facility] (SBHLAB)[address] [place] [address] WBC (Bld) [#/Vol] 17.3 10*3/uL High 3.6-10.7 [facility] Comment on above: Performed By: #### L [id number] ####Spanish Interpreter: ENRIQUE JEAN BAPTISTE ([id number])[facility]elin SORIATUBA CITY REG[facility] C[facility] CORPORATIONN (SBHLAB)[address] COMPLETE URINALYSISon 2023 BACTERIA (#/HPF) IN URINE Negative Normal Negative [facility] Comment on above: Performed By: #### L [id number] ####Spanish Interpreter: ENRIQUE JEAN BAPTISTE ([id number])[facility]BT[facility]PORATIONN (SBHLAB)[address] BILIRUBIN, TOTAL PRESENCE IN URINE Negative Normal Negative [facility] Comment on above: Performed By: #### L [id number] ####Spanish Interpreter: ENRIQUE GALDAMEZDoanldHEMANTH ([id number])[facility] (SBHLAB)[address] Clarity (U) Clear Normal Clear [facility] Comment on above: Performed By: #### L [id number] ####Spanish Interpreter: ENRIQUE GALDAMEZISIDRO ([id number])[facility] (SBHLAB)[address] Color (U) Colorless Normal Lt. Yellow [facility] Comment on above: Performed By: #### L [id number] ####Spanish Interpreter: ENRIQUE GARCIAHEMANTH ([id number])[facility] (HLAB)[address] GLUCOSE (MG/DL) IN URINE >1,000 Abnormal Normal (<70) [facility] Comment on above: Performed By: #### L [id number] ####Spanish Interpreter: ENRIQUE JEAN BAPTISTE ([id number])[facility] (SBHLAB)[address] HEMOGLOBIN PRESENCE IN URINE Negative Normal Negative [facility] Comment on above: Performed By: #### L [id number] ####Spanish Interpreter: ENRIQUE JEAN BAPTISTE ([id number])[facility] (SBHLAB)[address] HYALINE CASTS (#/LPF) IN URINE SEDIMENT BY MICROSCOPY 0-2 Abnormal Negative [facility] Comment on above: Performed By: #### L [id number] ####Spanish Interpreter: ENRIQUE JEAN BAPTISTE ([id number])[facility] (SBHLAB)[address] Ketones Ql (U) >150 Abnormal Negative [facility] Comment on above: Performed By: #### L [id number] ####Spanish Interpreter: ENRIQUE GARCIAHEMANTH ([id number])[facility] [place] (SBHLAB)[address] LEUKOCYTE ESTERASE PRESENCE IN URINE BY TEST STRIP Negative Normal Negative [facility] Comment on above: Performed By: #### L [id number] ####Spanish Interpreter: ENRIQUE GALDAMEZISIDRO ([id number])[facility] [place] (SBHLAB)[address] [place] [address] [place] MUCUS (#/LPF) IN URINE SEDIMENT Few Normal Negative [facility] Comment on above: Performed By: #### L [id number] ####Spanish Interpreter: ENRIQUE GALDAMEZISIDRO ([id number])[facility]A BARBTUBA CITY REG[facility] C[facility] CORPORATIONN (SBHLAB)[address] NITRITE PRESENCE IN URINE Negative Normal Negative [facility] Comment on above: Performed By: #### L [id number] ####Spanish Interpreter: ENRIQUE GARCIAHEMANTH ([id number])[facility]A BARBTUBA CITY [facility] CORPORATIONN (SBHLAB)[address] pH (U) 5.0 [pH] Normal 5.0-8.0 [facility] Comment on above: Performed By: #### L [id number] ####Spanish Interpreter: ENRIQUE GARCIAHEMANTH ([id number])[facility] [place] (SBHLAB)[address] Protein (U) [Mass/Vol] 20 mg/dL Abnormal Negative [facility] Comment on above: Performed By: #### L [id number] ####Spanish Interpreter: ENRIQUE GARCIAHEMANTH ([id number])[facility]A BARBTUBA CITY [facility] CORPORATIONN (SBHLAB)[address] [place] [address] [place] RBC (#/HPF) IN URINE SEDIMENT 0-2 Normal 0-2 [facility] Comment on above: Performed By: #### L [id number] ####Spanish Interpreter: ENRIQUE GARCIAHEMANTH ([id number])[facility]A BARBTU[facility]PORATIONN (SBHLAB)[address] Specific gravity (U) [Rel density] 1.023 Normal 1.005-1.030 [facility] Comment on above: Performed By: #### L [id number] ####Spanish Interpreter: ENRIQUE JEAN BAPTISTE ([id number])[facility] [place] (SBHLAB)[address] SQUAMOUS EPITHELIAL CELLS (#/HPF) IN URINE SEDIMENT Negative Normal 3-5 [facility] Comment on above: Performed By: #### L [id number] ####Spanish Interpreter: ENRIQUE JEAN BAPTISTE ([id number])[facility] [place] (SBHLAB)[address] UROBILINOGEN (MG/DL) IN URINE Normal Normal Normal (0-1) [facility] Comment on above: Performed By: #### L [id number] ####Spanish Interpreter: ENRIQUE JEAN BAPTISTE ([id number])[facility] [place] (SBHLAB)[address] WBC (LEUKOCYTE) (#/HPF) IN URINE SEDIMENT 0-2 Normal 0-5 [facility] Comment on above: Performed By: #### L [id number] ####Spanish Interpreter: ENRIQUE JEAN BAPTISTE ([id number])[facility] BARBTUBA CITY [facility] CORPORATIONN (SBHLAB)[address] COMPREHENSIVE METABOLIC PANE Meño 02-15-2024 Albumin [Mass/Vol] 5.5 g/dL High 3.5-5.0 [facility] Comment on above: Performed By: #### L AB17, AYK953, LAB99, DZO9041, QKW345, XNF409 ####Spanish Interpreter: ENRIQUE JEAN BAPTISTE ([id number])[facility] BARBTU[facility] CITY [facility]PORATIONN (SBHLAB)[address] ALP [Catalytic activity/Vol] 255 U/L High 38-126 [facility] Comment on above: Performed By: #### L AB17, OHI541, LAB99, QMG6439, LHB681, FHP805 ####Spanish Interpreter: ENRIQUE JEAN BAPTISTE ([id number])[facility] [place] (SBHLAB)[address] ALT [Catalytic activity/Vol] 74 U/L High 0-49 [facility] Comment on above: Performed By: #### L AB17, RAD344, LAB99, UAJ1884, QAI547, BWH695 ####Spanish Interpreter: ENRIQUE JEAN BAPTISTE ([id number])[facility] (SBHLAB)[address] ANION GAP Normal [facility] Comment on above: Result Comment: Unab le To Calculate Performed By: #### L AB17, OLB300, LAB99, IYN1591, UZD990, PGM233 ####Spanish Interpreter: ENRIQUE JEAN BAPTISTE ([id number])[facility] (HLAB)[address] AST [Catalytic activity/Vol] 31 U/L Normal 15-46 [facility] Comment on above: Performed By: #### L AB17, HLN758, LAB99, XUX8137, JVM067, WLN344 ####Spanish Interpreter: ENRIQUE JEAN BAPTISTE ([id number])[facility] (SBHLAB)[address] Bilirubin [Mass/Vol] 0.8 mg/dL Normal 0.2-1.3 [facility] Comment on above: Performed By: #### L AB17, WGV850, LAB99, OHS8581, FQB064, RYY800 ####Spanish Interpreter: ENRIQUE JEAN BAPTISTE ([id number])[facility] (HLAB)[address] Calcium [Mass/Vol] 9.9 mg/dL Normal 8.4-10.4 [facility] Comment on above: Performed By: #### L AB17, VRQ751, LAB99, RRQ2674, XUF380, POO682 ####Spanish Interpreter: ENRIQUE JEAN BAPTISTE ([id number])[facility] (SBHLAB)[address] [place] [address] [place] Chloride [Moles/Vol] 86 mmol/L Low 98-107 [facility] Comment on above: Performed By: #### L AB17, IML997, LAB99, HCF8988, ANN795, RJD008 ####Spanish Interpreter: ENRIQUE JEAN BAPTISTE ([id number])[facility] (SBHLAB)[address] [place] [address] [place] CO2 [Moles/Vol] mmol/L Low 22-30 [facility] Comment on above: Performed By: #### L AB17, LFF732, LAB99, CCR6928, TJO210, LPX014 ####Spanish Interpreter: ENRIQUE JEAN BAPTISTE ([id number])[facility] (SBHLAB)[address] Creatinine [Mass/Vol] 0.77 mg/dL Normal 0.66-1.25 [facility] Comment on above: Performed By: #### Benny AB17, MOV116, LAB99, UNP9248, TPH490, MAZ743 ####Spanish Interpreter: ENRIQUE JEAN BAPTISTE ([id number])[facility] (SBHLAB)[address] GLOMERULAR FILTRATION RATE ML/MIN/1.73 SQ M.PREDICTED >90.0 Normal >60.0 [facility] Comment on above: Result Comment: Calc ulation based on the Chronic Kidney Disease Epidemiology Collaboration (CKD-EPI) equation refit without adjustment for race Performed By: #### L AB17, HNK336, LAB99, IYO1614, IDE702, PUK994 ####Spanish Interpreter: ENRIQUE JEAN BAPTISTE ([id number])[facility] (SBHLAB)[address] [place] [address] [place] Glucose [Mass/Vol] 521 mg/dL Critically high 70-100 [facility] Comment on above: Performed By: #### L AB17, [id number], LAB99, [id number], MHO824, LYB852 ####Spanish Interpreter: ENRIQUE JEAN BAPTISTE ([id number])[facility] ([facility])[address] [place] [address] [place] Potassium [Moles/Vol] 3.9 mmol/L Normal 3.5-5.1 [facility] Comment on above: Performed By: #### L AB17, XFC821, LAB99, [id number], [id number], GUG493 ####Spanish Interpreter: ENRIQUE JEAN BAPTISTE ([id number])[facility] ([facility])[address] Protein [Mass/Vol] 9.7 g/dL High 6.3-8.2 [facility] Comment on above: Performed By: #### L AB17, MHQ063, LAB99, SWR1713, AKN809, VQL561 ####Spanish Interpreter: ENRIQUE JEAN BAPTISTE ([id number])[facility] ([facility])[address] [place] [address] Sodium [Moles/Vol] 132 mmol/L Low 135-145 [facility] Comment on above: Performed By: #### L AB17, EOU536, LAB99, FEB0001, IPB569, SYV019 ####Spanish Interpreter: ENRIQUE JEAN BAPTISTE ([id number])[facility] ([facility])[address] [place] [address] Urea nitrogen [Mass/Vol] 17 mg/dL Normal 9-20 [facility] Comment on above: Performed By: #### L AB17, KRG343, LAB99, [id number], BOK342, [id number] ####Spanish Interpreter: ENRIQUE JEAN BAPTISTE ([id number])[facility] ([facility])[address] [place] [address] Comprehensive metabolic 1998 panelOrdered By: Karmen Velasquez on 02-15-2024 Albumin [Mass/Vol] 5.5 g/dL High 3.5 - 5.0 g/dL [facility] ALP [Catalytic activity/Vol] 255 U/L High 38 - 126 U/L [facility] ALT [Catalytic activity/Vol] 74 U/L High 0 - 49 U/L [facility] Anion gap [Moles/Vol] [facility] Comment on above: Unable To Calculate AST [Catalytic activity/Vol] 31 U/L 15 - 46 U/L [facility] Bilirubin [Mass/Vol] 0.8 mg/dL 0.2 - 1 .3 mg/dL [facility] Calcium [Mass/Vol] 9.9 mg/dL 8.4 - 10. 4 mg/dL [facility] Chloride [Moles/Vol] 86 mmol/L Low 98 - 10 7 mmol/L [facility] CO2 [Moles/Vol] mmol/L Low 22 - 30 mmol/L [facility] Creatinine [Mass/Vol] 0.77 mg/dL 0.66 - 1.25 mg/dL [facility] GFR/1.73 sq M.predicted (S/P/Bld) [Vol rate/Area] - PINF [facility] Comment on above: Calculation based on the Chronic Kidney Disease Epidemiology Collaboration (CKD-EPI) equation refit without adjustment for race Glucose [Mass/Vol] 521 mg/dL Critically high 70 - 1 00 mg/dL [facility] Interpretation and review of laboratory results Abnormal [facility] Potassium [Moles/Vol] 3.9 mmol/L 3.5 - 5.1 mmol/L [facility] Protein [Mass/Vol] 9.7 g/dL High 6.3 - 8.2 g/dL [facility] Sodium [Moles/Vol] 132 mmol/L Low 135 - 145 mmol/L [facility] Urea nitrogen [Mass/Vol] 17 mg/dL 9 - 20 mg/dL [facility] ED Nursing Noteon 02-15-2024 ED Nursing Note Glucose 521 Nga Mckenzei RN 02/15/24 1624 Normal [facility] ED Nursing Note Pt believes he is in DKA, sugar has been reading high and he's had vomiting x 3 days 444 BGT in triage Normal [facility] ED Provider Noteon ED Provider Note EMERGENCY DEPARTMENT ENCOUNTER Pt Name: Abraham Bush Birthdate 1955 Date of evaluation: 02/15/2024 ED Provider: Kuldeep Rios MD CHIEF COMPLAINT Chief Complaint Patient presents with ? Vomiting ? Hyperglycemia HISTORY OF PRESENT ILLNESS (Location/Symptom, Timing/Onset, Context/Setting, Quality, Duration, Modifying Factors, Severity) Note limiting factors. I wore appropriate PPE for the entirety of this encounter. HPI Abraham Bush is a 68 y.o. who presents [...] TONSILLECTOMY (HISTORICAL) ? UPPER GASTROINTESTINAL ENDOSCOPY 03/16/2015 [facility] ? URETERAL STENT PLACEMENT Common bile duct CURRENT MEDICATIONS Previous Medications ALCOHOL SWABS (EASY COMFORT ALCOHOL PADS) PADS USE 1 UNUSED PAD TO CLEAN SITE BEFORE TESTING OR INJECTING NINE TIMES DAILY ASPIRIN 325 MG TABLET Take 325 mg by mouth daily. CONTINUOUS BLOOD GLUC SENSOR (FREESTYLE VIOLET 2 SENSOR) MISC every 14 (fourteen) days. [...] use: Y (more content not included)... Normal [facility] LIPASEon 02-15-2024 Lipase [Catalytic activity/Vol] 101 U/L Normal 23-300 [facility] Comment on above: Performed By: #### L [id number], [id number], LAB99, [id number], [id number], [id number] ####Spanish Interpreter: ENRIQUE JEAN BAPTISTE ([id number])[facility] CARE CORPORATIONDiego (SBHLAB)[address] Laboratory - Chemistry and C hemistry - challengeon 02-15-2024 Glucose [Mass/Vol] 145 mg/dL High 70 - 100 mg/dL [facility] Glucose [Mass/Vol] 164 mg/dL High 70 - 100 mg/dL [facility] Glucose [Mass/Vol] 204 mg/dL High 70 - 100 mg/dL [facility] Beta hydroxybutyrate [Mass/Vol] 31.4 mg/dL High 0.20 - 2.81 mg/dL [facility] Magnesium [Mass/Vol] 2 mg/dL 1.6 - 2 .3 mg/dL [facility] Glucose [Mass/Vol] 203 mg/dL High 70 - 100 mg/dL [facility] Glucose [Mass/Vol] 243 mg/dL High 70 - 100 mg/dL [facility] Glucose [Mass/Vol] 245 mg/dL High 70 - 100 mg/dL [facility] Beta hydroxybutyrate [Mass/Vol] 110 mg/dL High 0.20 - 2.81 mg/dL [facility] Glucose [Mass/Vol] 353 mg/dL High 70 - 100 mg/dL [facility] Base excess Calc (BldV) [Moles/Vol] -11.41660 mmol/L Low -3.0 - 3.0 mmol/L [facility] CO2 (BldV) [Partial pressure] 22.4 mm[Hg] Low [facility] CO2 [Moles/Vol] 12.2 mmol/L Low 23.0 - 30.0 mmol/L [facility] HCO3 (Bld) [Moles/Vol] 11.5 mmol/L Low 21.0 - 30.0 mmol/L [facility] Oxygen (BldV) [Partial pressure] 54.2 mm[Hg] mm Hg [facility] pH (BldV) 7.329 [pH] 7.320 - 7.420 [facility] Troponin I.cardiac [Mass/Vol] ng/mL NINF - 0.034 ng/mL [facility] Lipase [Catalytic activity/Vol] 101 U/L 23 - 300 U/L [facility] Magnesium [Mass/Vol] 2.1 mg/dL 1.6 - 2 .3 mg/dL [facility] Glucose [Mass/Vol] 444 mg/dL High 70 - 100 mg/dL [facility] Laboratory - Hematology and Cell countson 02-15-2024 Hemoglobin (Bld) [Mass/Vol] 19.7 g/dL High Screen only [facility] MAGNESIUMon 02-15-2024 Magnesium [Mass/Vol] 2.0 mg/dL Normal 1.6-2.3 [facility] Comment on above: Performed By: #### L [id number], [id number], LAB15, [id number] ####Spanish Interpreter: ENRIQUE JEAN BAPTISTE ([id number])[facility] (SBHLAB)[address] [place] [address] Magnesium [Mass/Vol] 2.1 mg/dL Normal 1.6-2.3 [facility] Comment on above: Performed By: #### L AB17, [id number], LAB99, [id number], [id number], [id number] ####Spanish Interpreter: ENRIQUE JEAN BAPTISTE ([id number])[facility] (SBHLAB)[address] [place] [address] MEDICATION ASSISTED TREATMEN T PANELon 02-15-2024 Amphetamines Ql (U) Negative Normal Negative [facility] Comment on above: Performed By: #### L [id number] ####Spanish Interpreter: NANCY OSEGUERA ([id number])[facility] (SACLAB)[address] [place] [address] BARBITURATES Negative Normal Negative [facility] Comment on above: Performed By: #### L [id number] ####Spanish Interpreter: NANCY OSEGUERA ([id number])[facility] ([facility])[address] [place] [address] [place] Benzodiazepines Ql (U) Negative Normal Negative [facility] Comment on above: Performed By: #### L [id number] ####Spanish Interpreter: NANCY OSEGUERA ([id number])[facility] ([facility])[address] [place] [address] BUPRENORPHINE SCREEN Positive Normal Negative [facility] Comment on above: Performed By: #### L [id number] ####Spanish Interpreter: NANCY OSEGUERA ([id number])[facility] ([facility])[address] [place] [address] Cocaine Ql (U) Negative Normal Negative [facility] Comment on above: Performed By: #### L [id number] ####Spanish Interpreter: NANCY OSEGUERA ([id number])[facility] ([facility])[address] [place] [address] ETHANOL-ETOHO Negative Normal Negative [facility] Comment on above: Result Comment: ORDE R COMMENTS: The expected value for the drugs [...] using non-forensic procedures. Performed By: #### L [id number] ####Spanish Interpreter: NANCY OSEGUERA ([id number])[facility] ([facility])[address] [place] [address] FENTANYL Positive Normal Negative [facility] Comment on above: Performed By: #### L [id number] ####Spanish Interpreter: NANCY OSEGUERA ([id number])[facility] ([facility])[address] [place] [address] Methadone Ql (U) Negative Normal [facility] Comment on above: Performed By: #### L [id number] ####Spanish Interpreter: NANCY OSEGUERA ([id number])[facility] ([facility])[address] [place] [address] Opiates Ql (U) Negative Normal Negative [facility] Comment on above: Performed By: #### L [id number] ####Spanish Interpreter: NANCY OSEGUERA ([id number])[facility] ([facility])[address] [place] [address] OXYCODONE/OXYMORPHONE Negative Normal Negative [facility] Comment on above: Performed By: #### L [id number] ####Spanish Interpreter: NANCY OSEGUERA ([id number])[facility] ([facility])[address] [place] [address] PCP Negative Normal Negative [facility] Comment on above: Performed By: #### L [id number] ####Spanish Interpreter: NANCY OSEGUERA ([id number])[facility] ([facility])[address] [place] [address] THC-MTTHC Negative Normal Negative [facility] Comment on above: Performed By: #### L [id number] ####Spanish Interpreter: NANCY OSEGUERA ([id number])[facility] ([facility])[address] [place] [address] Magnesium [Mass/Vol]on 02-14 Interpretation and review of laboratory results Normal [facility] No Panel Informationon 02-14 Interpretation and review of laboratory results Abnormal [facility] Performed by: [facility], [address] [place] [address] CLIA ID: [id number] [facility] Interpretation and review of laboratory results Abnormal [facility] Performed by: [facility], [address] [place] [address] CLIA ID: [id number] [facility] [place] [facility] Interpretation and review of laboratory results Abnormal [facility] Performed by: [facility], [address] [place] [address] CLIA ID: [id number] [facility] [place] [facility] Interpretation and review of laboratory results Abnormal [facility] Interpretation and review of laboratory results Abnormal [facility] Performed by: [facility], [address] [place] [address] CLIA ID: [id number] [facility] [place] [facility] Interpretation and review of laboratory results Abnormal [facility] Performed by: [facility], [address] [place] [address] CLIA ID: [id number] [facility] Interpretation and review of laboratory results Abnormal [facility] Performed by: [facility], [address] [facility] [address] CLIA ID: [id number] [facility] Interpretation and review of laboratory results Abnormal [facility] Interpretation and review of laboratory results Abnormal [facility] Performed by: [facility], [address] [facility] [address] CLIA ID: [id number] [facility] Interpretation and review of laboratory results Abnormal [facility] Source Of Oxygen Room Air [facility] Assessment of oxygenation is best done with an arterial blood gas determination. Reference ranges for pO2, bicarbonate, and base excess are for mixed venous blood. Specimens drawn from a peripheral vein will often have higher values. Interpret with caution, pO2 values falsely increased due to vacuum in tube. For accurate results, please draw in a syringe. [facility] Interpretation and review of laboratory results Normal [facility] Interpretation and review of laboratory results Abnormal [facility] Performed by: [facility], [address] [place] [address] CLIA ID: [id number] [facility] PHOSPHORUSon 02-15-2024 Phosphate [Mass/Vol] 2.4 mg/dL Low 2.5-4.5 [facility] Comment on above: Performed By: #### L [id number], [id number], LAB15, [id number] ####Spanish Interpreter: ENRIQUE JEAN BAPTISTE ([id number])[facility] (SBHLAB)[address] [place] [address] [place] Phosphate [Mass/Vol] 4.8 mg/dL High 2.5-4.5 [facility] Comment on above: Performed By: #### L AB17, [id number], LAB99, [id number], [id number], [id number] ####Spanish Interpreter: ENRIQUE JEAN BAPTISTE ([id number])[facility] (SBHLAB)[address] [place] [address] [place] Phosphate [Moles/Vol]on 01-27 Interpretation and review of laboratory results Abnormal [facility] Phosphate [Mass/Vol] 2.4 mg/dL Low 2.5 - 4 .5 mg/dL [facility] Interpretation and review of laboratory results Abnormal [facility] Phosphate [Mass/Vol] 4.8 mg/dL High 2.5 - 4 .5 mg/dL [facility] TROPONIN Ion 02-15-2024 Troponin I.cardiac [Mass/Vol] ng/mL Normal <0.034 [facility] Comment on above: Result Comment: KAMALA Mcdaniels COMMENTS: Patients with high levels of Biotin oral intake (ie >5 mg/day) may have falsely decreased Troponin levels. Performed By: #### L AB17, HRP770, LAB99, [id number], LQP283, [id number] ####Spanish Interpreter: ENRIQUE JEAN BAPTISTE ([id number])[facility] ([facility])[address] [place] [address] Troponin I.cardiac [Mass/Vol ]on 02-15-2024 Interpretation and review of laboratory results Normal [facility] Patients with high levels of Biotin oral intake (ie >5 mg/day) may have falsely decreased Troponin levels. [facility] Urinalysis complete panel (U )on 02-15-2024 Bacteria LM.HPF (Urine sed) [#/Area] Negative Negative /HPF [facility] Bilirubin Ql (U) Negative Negative mg/dL [facility] Clarity (U) Clear Clear [facility] Color (U) Colorless Lt. Yellow [facility] Epithelial cells.squamous LM.HPF (Urine sed) [#/Area] Negative [facility] h Glucose Ql (U) >1,000 Abnormal Normal (<70) mg/dL [facility] Hemoglobin Ql (U) Negative Negative mg/dL [facility] Hyaline casts Auto (Urine sed) [#/Area] 0-2 Abnormal Negative /LPF [facility] Interpretation and review of laboratory results Abnormal [facility] Ketones (U) [Mass/Vol] mg/dL Abnormal Negat moises mg/dL [facility] Leukocyte esterase Test strip Ql (U) Negative Negative Nikita/uL [facility] Mucus LM.HPF (Urine sed) [#/Area] Few Negative /LPF [facility] Nitrite Ql (U) Negative Negative [facility] th pH (U) 5.0 [pH] 5.0 - 8.0 pH [facility] Protein (U) [Mass/Vol] 20 mg/dL Abnormal Negative [facility] RBC LM.HPF (Urine sed) [#/Area] 0-2 [facility] Specific gravity (U) [Rel density] 1.023 1.005 - 1.030 [facility] Urobilinogen (U) [Mass/Vol] Normal Normal (0-1) mg/dL [facility] WBC LM.HPF (Urine sed) [#/Area] 0-2 [facility] Vital signson 02-15-2024 Oxygen saturation in Venous blood 85 % [facility] XR Chest Single viewon 02-14 No acute cardiopulmonary disease. Report Dictated on Electronically Signed By: Levar Kong MD Electronically Signed Date/Time: 02/15/2024 6:16 PM EDT [facility] Patient Name: ABRAHAM BUSH : 1955 Exam Date/Time: 02/15/2024 18:13 Procedure: XR CHEST [...] of the chest are unremarkable as visualized. [facility] Levar Kong MD - 02/15/2024 Patient Name: ABRAHAM BUSH : 1955 Exam Date/Time: 02/15/2024 18:13 Procedure: XR CHEST [...] Electronically Signed Date/Time: 02/15/2024 6:16 PM EDT [facility] Radiology Study observation (narrative) Yuliana suarez XR Chest Single viewOrdered By: Levar Kong on 02-15-2024 [facility] AMB POC HEMOGLOBIN A1Con HbA1c (Bld) [Mass fraction] 9.4 % Abnormal - 5.7 % [facility] HbA1c (Bld) [Mass fraction]o n 10-01-2023 Interpretation and review of laboratory results Abnormal [facility] Radiology Study observation (narrative) Yuliana Guadarrama alth Office Visiton 10-01-2023 Follow-up visit [id number] Abraham Bush 1955 M Date Provider Department Center 10/01/2023 [facility] None Family History Problem Relation Age of Onset High Blood Pressure Mother Cancer Father Family Status - Relation Status Age at Mother Alive Father Daughter Alive Daughter Alive Level of Service:9[address] [place] OFFICE/OUTPATIENT ESTABLISHED MOD MDM 30 MIN Reason for Visit and Comments: Diabetes [34] - Follow up-over due for eye exam-last one approx 5 years ago Normal [facility] PATINSon 10-01-2023 PATINS Low Dose Correctio n Algorithm Glucose: Dose: LESS than 149 No Insulin 150-199 1 Unit 200-249 2 Units 250-299 3 Units 300-349 4 Units 350-400 5 Units Above 400 6 Units Normal [facility] Progress Noteon 10-01-2023 Progress Note [facility] [address] [place] [address] [facility] [address] Dept: [phone] Dept Loc: [phone] Visit type: Established patient Reason for Visit: Diabetes (Follow up-over due for eye exam-last one approx 5 years ago/) Assessment and Plan 1. Type 1 diabetes mellitus with hyperglycemia (HCC) - AMB POC HEMOGLOBIN A1C - insulin glargine (Lantus SoloStar) 100 UNIT/ML pen; Inject 14 Units under the skin Nightly., Starting 10/01/2023, Until Katlyn 12/03/2024, Normal - insulin [...] Type 2 Diabetes mellitus with hyperglycemia and buttermaker continuous churn insulin use: - Most Recent A1C is [...] to check sugars ac and hs using violet cgm - submit sugar logs in 1 [...] no polydipsia and no polyuria. [facility]: Before 12/13/2014 Last office visit: 05/27/2023 No significant Interval history Type of DM: 1 Onset :~2013 Current DM Medications: Humalog 14 units TID before meals with SS of 1 unit for every 50 greater than 150. Lantus 16 units nightly Complications: Cardiovascular -- No Statin Use -- Yes Retinopathy -- No Last KEVIN/Retina Eval: missed follow up at [facility] . Longer distance from home. Would like to be referred to ophthalmology in [place] Nephropathy -- No RONNIE/ARB Use -- Yes Polyneuropathy -- Yes Bilateral great toes Foot Exam: 11/13/2022 Obesity -- No Other -- No Pt complaints include: ran out of lantus for few months Since last office visit denies new health problems, denies hospitalizations, and denies surgeries. Pt feels their blood sugars are unchanged since NANCI. Checking Blood sugar 4+ times daily with violet 2 Hyperglycemia present: Yes Hypoglycemia present: Yes [...] mouth daily. C (more content not included)... Normal [facility] 36on 09-27-2023 36 S: Patient spoke wit h CAC nurse regarding needing a refill on his [...] Partida Will send the script into the [facility] pharmacy. CAC RN called patient ans relayed [...] question Protocols used: Medication Refill and Renewal [id number] Normal [facility] [address] [facility] HbA1c (Bld) [Mass fraction]o n 05-27-2023 Interpretation and review of laboratory results Abnormal [facility] Radiology Study observation (narrative) [facility] Laboratory - Hematology and Cell countson 05-27-2023 HbA1c (Bld) [Mass fraction] 9.2 % Abnormal - 5.7 % [facility] AMB POC HEMOGLOBIN A1Con HbA1c (Bld) [Mass fraction] 7.9 % Abnormal - 5.6 % [facility] HbA1c (Bld) [Mass fraction]o n 11-13-2022 Interpretation and review of laboratory results Abnormal [facility] POCT glucose meteron 023 Glucose [Mass/Vol] 175 mg/dL High 70 - 100 mg/dL [facility] Interpretation and review of laboratory results Abnormal [facility] Performed by: [facility], [address] [place] [address] [place] [address] CLIA ID: [id number] [facility] Glucose [Mass/Vol] 205 mg/dL High 70 - 100 mg/dL [facility] Interpretation and review of laboratory results Abnormal [facility] Performed by: [facility], [address] [place] [address] [place] [address] CLIA ID: [id number] [facility] CBC W Auto Differential pane l (Bld)Ordered By: Alvin Schmitz on 08-17-2022 Basophils (Bld) [#/Vol] 0.1 10*3/uL 0.0 - 0.2 10*3/uL [facility] Basophils/100 WBC (Bld) 0.7 % 0.0 - 2.0 % [facility] Eosinophils (Bld) [#/Vol] 0.1 10*3/uL 0.0 - 0.5 10*3/uL [facility] Eosinophils/100 WBC (Bld) 0.6 % Low 1.0 - 6.0 % [facility] Erythrocyte distribution width (RBC) [Ratio] 13.3 % 11.5 - 14.5 % [facility] Hematocrit (Bld) [Volume fraction] 38.7 % Low 40.0 - 52.0 % [facility] Hemoglobin (Bld) [Mass/Vol] 13.2 g/dL 13.0 - 18.0 g/dL [facility] Interpretation and review of laboratory results Abnormal [facility] Lymphocytes (Bld) [#/Vol] 2.0 10*3/uL 1.0 - 4.3 10*3/uL [facility] Lymphocytes/100 WBC (Bld) 15.5 % Low 20.0 - 40.0 % [facility] MCH (RBC) [Entitic mass] 30.8 pg 26.0 - 34.0 pg [facility] MCHC (RBC) [Mass/Vol] 34.2 % 32.0 - 36.0 % [facility] MCV (RBC) [Entitic vol] 90.0 fL 80.0 - 98.0 fL [facility] Monocytes (Bld) [#/Vol] 0.9 10*3/uL High 0.0 - 0.8 10*3/uL [facility] Monocytes/100 WBC (Bld) 7.0 % 2.0 - 10.0 % [facility] Neutrophils (Bld) [#/Vol] 9.7 10*3/uL High 1.8 - 7.0 10*3/uL [facility] Neutrophils/100 WBC (Bld) 76.2 % 40.0 - 80.0 % [facility] Nucleated RBC/100 WBC (Bld) [Ratio] 0.0 % [facility] Platelet mean volume (Bld) [Entitic vol] 9.3 fL 7.4 - 12.4 fL [facility] Platelets (Bld) [#/Vol] 250 10*3/uL 140 - 440 10*3/uL [facility] RBC (Bld) [#/Vol] 4.30 10*6/uL Low 4.40 - 5.9 0 10*6/uL [facility] WBC (Bld) [#/Vol] 12.7 10*3/uL High 3.6 - 10.7 10*3/uL [facility] Comprehensive metabolic 1998 panelon 08-17-2022 Albumin [Mass/Vol] 3.5 g/dL 3.5 - 5.0 g/dL [facility] ALP [Catalytic activity/Vol] 94 U/L 38 - 126 U/L [facility] ALT [Catalytic activity/Vol] 16 U/L 0 - 49 U/L [facility] Anion gap [Moles/Vol] 4 mmol/L 3 - 13 mmol/L [facility] AST [Catalytic activity/Vol] 25 U/L 15 - 46 U/L [facility] Bilirubin [Mass/Vol] 0.5 mg/dL 0.2 - 1 .3 mg/dL [facility] Calcium [Mass/Vol] 8.6 mg/dL 8.4 - 10. 4 mg/dL [facility] Chloride [Moles/Vol] 104 mmol/L 98 - 10 7 mmol/L [facility] CO2 [Moles/Vol] 24 mmol/L 22 - 30 mmol/L [facility] Creatinine [Mass/Vol] 0.56 mg/dL Low 0.66 - 1.25 mg/dL [facility] GFR/1.73 sq M.predicted MDRD (S/P/Bld) [Vol rate/Area] - PINF [facility] Comment on above: Calculation based on the Chronic Kidney Disease Epidemiology Collaboration (CKD-EPI) equation refit without adjustment for race Glucose [Mass/Vol] 316 mg/dL High 70 - 100 mg/dL [facility] Interpretation and review of laboratory results Abnormal [facility] Potassium [Moles/Vol] 3.8 mmol/L 3.5 - 5.1 mmol/L [facility] Protein [Mass/Vol] 6.2 g/dL Low 6.3 - 8.2 g/dL [facility] Sodium [Moles/Vol] 132 mmol/L Low 135 - 145 mmol/L [facility] Urea nitrogen [Mass/Vol] 15 mg/dL 9 - 20 mg/dL [facility] POCT glucose meteron 023 Glucose [Mass/Vol] 95 mg/dL 70 - 100 mg/dL [facility] Interpretation and review of laboratory results Normal [facility] Performed by: [facility], [address] [place] [address] CLIA ID: [id number] [facility] Glucose [Mass/Vol] 222 mg/dL High 70 - 100 mg/dL [facility] Interpretation and review of laboratory results Abnormal [facility] Performed by: [facility] [facility], [address] [place] [address] CLIA ID: [id number] [facility] Glucose [Mass/Vol] 430 mg/dL High 70 - 100 mg/dL [facility] Interpretation and review of laboratory results Abnormal [facility] Performed by: [facility], [address] [place] [address] CLIA ID: [id number] [facility] Glucose [Mass/Vol] 346 mg/dL High 70 - 100 mg/dL [facility] Interpretation and review of laboratory results Abnormal [facility] Performed by: [facility], [address] [place] [address] CLIA ID: [id number] [facility] Glucose [Mass/Vol] 274 mg/dL High 70 - 100 mg/dL [facility] Interpretation and review of laboratory results Abnormal [facility] Performed by: [facility], [address] [place] [address] CLIA ID: [id number] [facility] CBC W Auto Differential pane l (Bld)on 08-16-2022 Basophils (Bld) [#/Vol] 0.1 10*3/uL 0.0 - 0.2 10*3/uL [facility] Basophils/100 WBC (Bld) 0.4 % 0.0 - 2.0 % [facility] Eosinophils (Bld) [#/Vol] 0.0 10*3/uL 0.0 - 0.5 10*3/uL [facility] Eosinophils/100 WBC (Bld) 0.0 % Low 1.0 - 6.0 % [facility] Erythrocyte distribution width (RBC) [Ratio] 13.3 % 11.5 - 14.5 % [facility] Hematocrit (Bld) [Volume fraction] 41.8 % 40.0 - 52.0 % [facility] Hemoglobin (Bld) [Mass/Vol] 13.9 g/dL 13.0 - 18.0 g/dL [facility] Interpretation and review of laboratory results Abnormal [facility] Lymphocytes (Bld) [#/Vol] 1.5 10*3/uL 1.0 - 4.3 10*3/uL [facility] Lymphocytes/100 WBC (Bld) 6.9 % Low 20.0 - 40.0 % [facility] MCH (RBC) [Entitic mass] 30.2 pg 26.0 - 34.0 pg [facility] MCHC (RBC) [Mass/Vol] 33.2 % 32.0 - 36.0 % [facility] MCV (RBC) [Entitic vol] 90.8 fL 80.0 - 98.[address] [facility] [place] Monocytes (Bld) [#/Vol] 0.8 10*3/uL 0.0 - 0.8 10*3/uL [facility] Monocytes/100 WBC (Bld) 4.0 % 2.0 - 10.0 % [facility] Neutrophils (Bld) [#/Vol] 18.7 10*3/uL High 1.8 - 7.0 10*3/uL [facility] Neutrophils/100 WBC (Bld) 88.7 % High 40.0 - 80.0 % [facility] Nucleated RBC/100 WBC (Bld) [Ratio] 0.0 % [facility] Platelet mean volume (Bld) [Entitic vol] 9.4 fL 7.4 - 12.[address] [facility] Platelets (Bld) [#/Vol] 288 10*3/uL 140 - 440 10*3/uL [facility] RBC (Bld) [#/Vol] 4.61 10*6/uL 4.40 - 5.9 0 10*6/uL [facility] WBC (Bld) [#/Vol] 21.1 10*3/uL High 3.6 - 10.7 10*3/uL [facility] Comprehensive metabolic 1998 panelon 08-16-2022 Albumin [Mass/Vol] 4.1 g/dL 3.5 - 5.0 g/dL [facility] ALP [Catalytic activity/Vol] 111 U/L 38 - 126 U/L [facility] ALT [Catalytic activity/Vol] 16 U/L 0 - 49 U/L [facility] Anion gap [Moles/Vol] 10 mmol/L 3 - 13 mmol/L [facility] AST [Catalytic activity/Vol] 24 U/L 15 - 46 U/L [facility] Bilirubin [Mass/Vol] 0.5 mg/dL 0.2 - 1 .3 mg/dL [facility] Calcium [Mass/Vol] 9.1 mg/dL 8.4 - 10. 4 mg/dL [facility] Chloride [Moles/Vol] 106 mmol/L 98 - 10 7 mmol/L [facility] CO2 [Moles/Vol] 18 mmol/L Low 22 - 30 mmol/L [facility] Creatinine [Mass/Vol] 0.62 mg/dL Low 0.66 - 1.25 mg/dL [facility] GFR/1.73 sq M.predicted MDRD (S/P/Bld) [Vol rate/Area] - PINF [facility] Comment on above: Calculation based on the Chronic Kidney Disease Epidemiology Collaboration (CKD-EPI) equation refit without adjustment for race Glucose [Mass/Vol] 352 mg/dL High 70 - 100 mg/dL [facility] Interpretation and review of laboratory results Abnormal [facility] Potassium [Moles/Vol] 4.0 mmol/L 3.5 - 5.1 mmol/L [facility] Protein [Mass/Vol] 7.0 g/dL 6.3 - 8.2 g/dL [facility] Sodium [Moles/Vol] 133 mmol/L Low 135 - 145 mmol/L [facility] Urea nitrogen [Mass/Vol] 13 mg/dL 9 - 20 mg/dL [facility] POCT glucose meteron 023 Glucose [Mass/Vol] 88 mg/dL 70 - 100 mg/dL [facility] Interpretation and review of laboratory results Normal [facility] Performed by: [facility], [address] [place] [address] CLIA ID: [id number] [facility] Glucose [Mass/Vol] 249 mg/dL High 70 - 100 mg/dL [facility] Interpretation and review of laboratory results Abnormal [facility] Performed by: [facility], [address] [place] [address] CLIA ID: [id number] [facility] Glucose [Mass/Vol] 265 mg/dL High 70 - 100 mg/dL [facility] Interpretation and review of laboratory results Abnormal [facility] Performed by: [facility] [place], [address] [place] [address]26 CLIA ID: [id number] [facility] Glucose [Mass/Vol] 362 mg/dL High 70 - 100 mg/dL [facility] Interpretation and review of laboratory results Abnormal [facility] Performed by: [facility], [address] [place] [address] CLIA ID: [id number] [facility] CBC W Auto Differential pane l (Bld)Ordered By: Reid Frias on 08-15-2022 Basophils (Bld) [#/Vol] 0.1 10*3/uL 0.0 - 0.2 10*3/uL [facility] Basophils/100 WBC (Bld) 0.6 % 0.0 - 2.0 % [facility] Eosinophils (Bld) [#/Vol] 0.0 10*3/uL 0.0 - 0.5 10*3/uL [facility] Eosinophils/100 WBC (Bld) 0.0 % Low 1.0 - 6.0 % [facility] Erythrocyte distribution width (RBC) [Ratio] 13.4 % 11.5 - 14.5 % [facility] Hematocrit (Bld) [Volume fraction] 40.6 % 40.0 - 52.0 % [facility] Hemoglobin (Bld) [Mass/Vol] 13.7 g/dL 13.0 - 18.0 g/dL [facility] Interpretation and review of laboratory results Abnormal [facility] Lymphocytes (Bld) [#/Vol] 1.3 10*3/uL 1.0 - 4.3 10*3/uL [facility] Lymphocytes/100 WBC (Bld) 9.2 % Low 20.0 - 40.0 % [facility] MCH (RBC) [Entitic mass] 30.5 pg 26.0 - 34.0 pg [facility] MCHC (RBC) [Mass/Vol] 33.7 % 32.0 - 36.0 % [facility] MCV (RBC) [Entitic vol] 90.6 fL 80.0 - 98.0 fL [facility] Monocytes (Bld) [#/Vol] 0.5 10*3/uL 0.0 - 0.8 10*3/uL [facility] Monocytes/100 WBC (Bld) 3.6 % 2.0 - 10.0 % [facility] Neutrophils (Bld) [#/Vol] 12.6 10*3/uL High 1.8 - 7.0 10*3/uL [facility] Neutrophils/100 WBC (Bld) 86.6 % High 40.0 - 80.0 % [facility] Nucleated RBC/100 WBC (Bld) [Ratio] 0.0 % [facility] Platelet mean volume (Bld) [Entitic vol] 9.6 fL 7.4 - 12.4 fL [facility] Platelets (Bld) [#/Vol] 304 10*3/uL 140 - 440 10*3/uL [facility] RBC (Bld) [#/Vol] 4.48 10*6/uL 4.40 - 5.9 0 10*6/uL [facility] WBC (Bld) [#/Vol] 14.5 10*3/uL High 3.6 - 10.7 10*3/uL [facility] Comprehensive metabolic 1998 panelOrdered By: Osei Lynch on 08-15-2022 Albumin [Mass/Vol] 4.4 g/dL 3.5 - 5.0 g/dL [facility] ALP [Catalytic activity/Vol] 120 U/L 38 - 126 U/L [facility] ALT [Catalytic activity/Vol] 17 U/L 0 - 49 U/L [facility] Anion gap [Moles/Vol] 15 mmol/L High 3 - 13 mmol/L [facility] AST [Catalytic activity/Vol] 26 U/L 15 - 46 U/L [facility] Bilirubin [Mass/Vol] 0.7 mg/dL 0.2 - 1 .3 mg/dL [facility] Calcium [Mass/Vol] 8.8 mg/dL 8.4 - 10. 4 mg/dL [facility] Chloride [Moles/Vol] 103 mmol/L 98 - 10 7 mmol/L [facility] CO2 [Moles/Vol] 20 mmol/L Low 22 - 30 mmol/L [facility] Creatinine [Mass/Vol] 0.65 mg/dL Low 0.66 - 1.25 mg/dL [facility] GFR/1.73 sq M.predicted MDRD (S/P/Bld) [Vol rate/Area] - PINF [facility] Comment on above: Calculation based on the Chronic Kidney Disease Epidemiology Collaboration (CKD-EPI) equation refit without adjustment for race Glucose [Mass/Vol] 334 mg/dL High 70 - 100 mg/dL [facility] Interpretation and review of laboratory results Abnormal [facility] Potassium [Moles/Vol] 4.0 mmol/L 3.5 - 5.1 mmol/L [facility] Protein [Mass/Vol] 7.3 g/dL 6.3 - 8.2 g/dL [facility] Sodium [Moles/Vol] 139 mmol/L 135 - 145 mmol/L [facility] Urea nitrogen [Mass/Vol] 12 mg/dL 9 - 20 mg/dL [facility] Glucose (Bld) [Mass/Vol]on 0 08-15-2022 Glucose [Mass/Vol] 445 mg/dL High 70 - 100 mg/dL [facility] Interpretation and review of laboratory results Abnormal [facility] MR Abdomen WO contraston [facility] 1955 [id number] Exam Date/Time: 08/15/2022 11:46 Procedure: MR ABDOMEN [...] Mild degenerative spondylosis in the visualized spine. [facility] Denis Gilbert MD - 08/15/2022 Patient Name: ABRAHAM BUSH : 1955 Exam Date/Time: 08/15/2022 11:46 Procedure: MR ABDOMEN [...] Electronically Signed Date/Time: 08/15/2022 3:43 PM EDT [facility] Radiology Study observation (narrative) [facility]th MR Abdomen WO contrastOrdere d By: Denis Gilbert on 08-15-[address] [facility] Work Phone: No Panel Informationon 08-15 Performed by: Moser Baer [facility], [address] [place] [address]697 CLIA ID: [id number] [facility] POCT glucose meteron 023 Glucose [Mass/Vol] 333 mg/dL High 70 - 100 mg/dL [facility] Interpretation and review of laboratory results Abnormal [facility] Performed by: [facility]oser [facility], [address] [facility] [address] CLIA ID: [id number] [facility] Glucose [Mass/Vol] 207 mg/dL High 70 - 100 mg/dL [facility] Glucose [Mass/Vol] 88 mg/dL 70 - 100 mg/dL [facility] Interpretation and review of laboratory results Abnormal [facility] Interpretation and review of laboratory results Normal [facility] Glucose [Mass/Vol] 71 mg/dL 70 - 100 mg/dL [facility] Interpretation and review of laboratory results Normal [facility] Performed by: [facility], [address] [place] [address] CLIA ID: [id number] [facility] Glucose [Mass/Vol] mg/dL High 70 - 100 mg/dL [facility] Comment on above: Caregiver Notified; Interpretation and review of laboratory results Abnormal [facility] Performed by: [facility], [address] [place] [address] CLIA ID: [id number] [facility] Glucose [Mass/Vol] mg/dL High 70 - 100 mg/dL [facility] Comment on above: Result Not Confirmed ; Interpretation and review of laboratory results Abnormal [facility] Performed by: [facility], [address] [place] [address] CLIA ID: [id number] [facility] Beta Hydroxybutyrateon 08-14 Beta hydroxybutyrate [Mass/Vol] 22.50 mg/dL High 0.20 - 2.81 mg/dL [facility] Interpretation and review of laboratory results Abnormal [facility] CBC W Auto Differential pane l (Bld)Ordered By: Millie [place] on 08-14-2022 Basophils (Bld) [#/Vol] 0.4 10*3/uL High 0.0 - 0.2 10*3/uL [facility] Basophils/100 WBC (Bld) 2.2 % High 0.0 - 2.0 % [facility] Eosinophils (Bld) [#/Vol] 0.2 10*3/uL 0.0 - 0.5 10*3/uL [facility] Eosinophils/100 WBC (Bld) 1.4 % 1.0 - 6.0 % [facility] Erythrocyte distribution width (RBC) [Ratio] 13.3 % 11.5 - 14.5 % [facility] Hematocrit (Bld) [Volume fraction] 44.2 % 40.0 - 52.0 % [facility] Hemoglobin (Bld) [Mass/Vol] 15.0 g/dL 13.0 - 18.0 g/dL [facility] Interpretation and review of laboratory results Abnormal [facility] Lymphocytes (Bld) [#/Vol] 0.7 10*3/uL Low 1.0 - 4.3 10*3/uL [facility] Lymphocytes/100 WBC (Bld) 4.4 % Low 20.0 - 40.0 % [facility] MCH (RBC) [Entitic mass] 30.5 pg 26.0 - 34.0 pg [facility] MCHC (RBC) [Mass/Vol] 34.0 % 32.0 - 36.0 % [facility] MCV (RBC) [Entitic vol] 89.5 fL 80.0 - 98.0 fL [facility] Monocytes (Bld) [#/Vol] 0.3 10*3/uL 0.0 - 0.8 10*3/uL [facility] Monocytes/100 WBC (Bld) 1.6 % Low 2.0 - 10.0 % [facility] Neutrophils (Bld) [#/Vol] 14.4 10*3/uL High 1.8 - 7.0 10*3/uL [facility] Neutrophils/100 WBC (Bld) 90.4 % High 40.0 - 80.0 % [facility] Nucleated RBC/100 WBC (Bld) [Ratio] 0.0 % [facility] Platelet mean volume (Bld) [Entitic vol] 9.6 fL 7.4 - 12.4 fL [facility] Platelets (Bld) [#/Vol] 288 10*3/uL 140 - 440 10*3/uL [facility] RBC (Bld) [#/Vol] 4.94 10*6/uL 4.40 - 5.9 0 10*6/uL [facility] WBC (Bld) [#/Vol] 16.0 10*3/uL High 3.6 - 10.7 10*3/uL [facility] CT Abdomen and Pelvis W cont rast [...] AM [facility] Patient Name: ABRAHAM BUSH : 1955 [facility]#: [id number] Exam Date/Time: 08/14/2022 10:49 Procedure: CT ABDOMEN [...] discogenic degenerative changes of the thoracolumbar spine. [facility] Victor Manuel Hdz MD - 08/14/2022 Patient Name: ABRAHAM BUSH : 1955 [facility]#: [id number] Exam Date/Time: 08/14/2022 10:49 Procedure: CT ABDOMEN [...] Electronically Signed Date/Time: 08/14/2022 11:24 AM EDT [facility] Radiology Study observation (narrative) [facility] CT Abdomen and Pelvis W cont rast IVOrdered By: Victor Manuel Hdz on 08-14-2022 [facility] Work Phone: Comprehensive metabolic 1998 panelon 08-14-2022 Albumin [Mass/Vol] 4.8 g/dL 3.5 - 5.0 g/dL [facility] ALP [Catalytic activity/Vol] 110 U/L 38 - 126 U/L [facility] ALT [Catalytic activity/Vol] 18 U/L 0 - 49 U/L [facility] Anion gap [Moles/Vol] 10 mmol/L 3 - 13 mmol/L [facility] AST [Catalytic activity/Vol] 37 U/L 15 - 46 U/L [facility] Bilirubin [Mass/Vol] 1.0 mg/dL 0.2 - 1 .3 mg/dL [facility] Calcium [Mass/Vol] 9.6 mg/dL 8.4 - 10. 4 mg/dL [facility] Chloride [Moles/Vol] 102 mmol/L 98 - 10 7 mmol/L [facility] CO2 [Moles/Vol] 23 mmol/L 22 - 30 mmol/L [facility] Creatinine [Mass/Vol] 0.77 mg/dL 0.66 - 1.25 mg/dL [facility] GFR/1.73 sq M.predicted MDRD (S/P/Bld) [Vol rate/Area] - PINF [facility] Comment on above: Calculation based on the Chronic Kidney Disease Epidemiology Collaboration (CKD-EPI) equation refit without adjustment for race Glucose [Mass/Vol] 380 mg/dL High 70 - 100 mg/dL [facility] Interpretation and review of laboratory results Abnormal [facility] Potassium [Moles/Vol] 5.1 mmol/L 3.5 - 5.1 mmol/L [facility] Protein [Mass/Vol] 8.4 g/dL High 6.3 - 8.2 g/dL [facility] Sodium [Moles/Vol] 135 mmol/L 135 - 145 mmol/L [facility] Urea nitrogen [Mass/Vol] 12 mg/dL 9 - 20 mg/dL [facility] Specimen slightly hemolyzed. Interpret with caution. [facility] ECG 12 leadon 08-14-2022 Heart rate 96 /min bpm [facility] P [place] 43 degrees [facility] [place] Interval 162 ms [facility] QRS [place] -5 degrees [facility] QRSD Interval [address] [facility] QT Interval 365 ms [facility] QTC Interval 462 ms [facility] T Wave [place] 59 degrees [facility] EKG demonstrates nor mal sinus rhythm with a normal axis, normal [place] intervals, and normal QTC. No ST elevation or T-wave inversions. Electronically Signed On 08-14-2022 12:43:37 EDT by Danika Marie CV Frederic Rand MD - 08/14/2022 IMPRESSION: EKG demonstrates normal sinus rhythm with a normal axis, normal [place] intervals, and normal QTC. No ST elevation or T-wave inversions. Electronically Signed On 08-14-2022 12:43:37 EDT by Danika Marie [facility] Glucose (Bld) [Mass/Vol]on 0 08-14-2022 Glucose [Mass/Vol] 333 mg/dL High 70 - 100 mg/dL [facility] Interpretation and review of laboratory results Abnormal [facility] HbA1c (Bld) [Mass fraction]o n 08-14-2022 Glucose [Mass/Vol] 169 mg/dL [facility] HbA1c (Bld) [Mass/Vol] 7.5 % High NINF - 5.7 % [facility] Comment on above: Normal less than 5.7 % Prediabetes 5.7% to 6.4% Diabetes 6.5% or higher --HgbA1C levels may not be accurate in patients who have renal disease, received recent blood transfusions, are anemic, or who have dyshemoglobinemia. Interpretation and review of laboratory results Abnormal [facility] Lactic acid, sepsis, with re flex if elevatedon 08-14-2022 Interpretation and review of laboratory results Normal [facility] Lactate [Moles/Vol] 1.8 mmol/L 0.7 - 2. 0 mmol/L [facility] Lipaseon 08-14-2022 Lipase [Catalytic activity/Vol] 62 U/L 23 - 300 U/L [facility] Lipase [Catalytic activity/V ol]on 08-14-2022 Interpretation and review of laboratory results Normal [facility] No Panel Informationon 08-14 [facility] POCT glucose meteron 023 Glucose [Mass/Vol] 220 mg/dL High 70 - 100 mg/dL [facility] Interpretation and review of laboratory results Abnormal [facility] Performed by: [facility], [address] [place] [address] CLIA ID: [id number] [facility] Glucose [Mass/Vol] 308 mg/dL High 70 - 100 mg/dL [facility] Interpretation and review of laboratory results Abnormal [facility] Performed by: [facility], [address] [place] [address]000 CLIA ID: [id number] [facility] Glucose [Mass/Vol] mg/dL High 70 - 100 mg/dL [facility] Comment on above: Caregiver Notified; Interpretation and review of laboratory results Abnormal [facility] Performed by: [facility], [address] [place] [address] CLIA ID: [id number] [facility] POCT venous blood gason 07-28 Base excess Calc (BldV) [Moles/Vol] 1.0 mmol/L -3 - 3 mmol/L [facility] CO2 (BldV) [Partial pressure] 34.9 mm[Hg] Low [facility] CO2 [Moles/Vol] 25.5 mmol/L 24.0 - 28.0 mmol/L [facility] FIO2 21 [facility] Comment on above: Performed by CLIA ID : [id number] [place], [place] ?Device: [id number] [facility] Nurse ID: [id number] HCO3 (Bld) [Moles/Vol] 24.4 mmol/L 23.0 - 27.0 mmol/L [facility] Interpretation and review of laboratory results Abnormal [facility] Oxygen (BldV) [Partial pressure] Low [facility] Oxygen saturation in Venous blood 58.7 % Low 60.0 - 80.0 % [facility] pH (BldV) 7.454 [pH] High 7.330 - 7.430 pH [facility] Performed by: [facility], [address] [place] [address] [place] [address] CLIA ID: [id number] [facility] Procalcitonin Teston 023 Procalcitonin [Mass/Vol] 0.05 ng/mL 0.00 - 0.09 ng/mL [facility] Procalcitonin [Mass/Vol]on 0 08-14-2022 Interpretation and review of laboratory results Normal [facility] PCT <0.50 = Low risk of severe sepsis and/or septic shock. PCT >2.00 = High risk of severe sepsis and/or septic shock. [facility] SARS-CoV-2, Flu A/B, and RSV Comboon 08-14-2022 FLUAV RNA GREGORIO+probe Ql (Resp) Not detected Not Detected [facility] FLUBV RNA GREGORIO+probe Ql (Resp) Not detected Not Detected [facility] Interpretation and review of laboratory results Normal [facility] RSV RNA GREGORIO+probe Ql (Resp) Not detected Not Detected [facility] SARS-CoV-2 (COVID-19) RNA GREGORIO+probe Ql (Resp) Not detected Not Detected [facility] SARS-CoV-2 (COVID-19) RNA GREGORIO+probe Ql (Unsp spec) Methodology: real-time, RT-PCR The SARS-CoV-2, Flu A/B, and RSV Combo assay is intended for in vitro diagnostic use under the FDA Emergency Use Authorization (EUA). This test has not been FDA cleared or approved. In compliance with this authorization, please visit www.fda.gov/media/30703 5/download or www.fda.gov/media/65639 6/download to access the applicable information sheets. [facility] US Abdomen limitedon 023 The common bile duct is dilated measuring 9 mm in diameter. Two gallbladder polyps versus adherent stones. Follow-up ultrasound in six months is recommended. Report Dictated on Electronically Signed By: Victor Manuel Hdz Electronically Signed Date/Time: 08/14/2022 2:11 PM EDT [facility] Patient Name: ABRAHAM BUSH : 1955 Exam Date/Time: 08/14/2022 13:41 [...] Right kidney: No pelvicalyceal dilatation Ascites: None [facility] Victor Manuel Hdz MD - 08/14/2022 Patient Name: ABRAHAM BUSH : 1955 Exam Date/Time: 08/14/2022 13:41 [...] Electronically Signed Date/Time: 08/14/2022 2:11 PM EDT [facility] Radiology Study observation (narrative) [facility] Urinalysis complete panel (U )Ordered By: Xochilt Strickland on 08-14-2022 Bacteria LM.HPF (Urine sed) [#/Area] Negative Negative /HPF [facility] Bilirubin Ql (U) Negative Negative mg/dL [facility] Clarity (U) Clear Clear [facility] Color (U) Light Yellow Lt. Yellow [facility] Epithelial cells.squamous LM.HPF (Urine sed) [#/Area] Negative [facility] h Glucose Ql (U) >1,000 Abnormal Normal (<70) mg/dL [facility] Hemoglobin Ql (U) Negative Negative mg/dL [facility] Interpretation and review of laboratory results Abnormal [facility] Ketones (U) [Mass/Vol] 80 mg/dL Abnormal Negative [facility] Leukocyte esterase Test strip Ql (U) Negative Negative Nikita/uL [facility] Mucus LM.HPF (Urine sed) [#/Area] Few Negative /LPF [facility] Nitrite Ql (U) Negative Negative [facility] th pH (U) 7.0 [pH] 5.0 - 8.0 pH [facility] Protein (U) [Mass/Vol] 20 mg/dL Abnormal Negative [facility] RBC LM.HPF (Urine sed) [#/Area] 0-2 [facility] Specific gravity (U) [Rel density] 1.027 1.005 - 1.030 [facility] Urobilinogen (U) [Mass/Vol] Normal Normal (0-1) mg/dL [facility] WBC LM.HPF (Urine sed) [#/Area] 0-2 [facility] Comp Metabolic Panelon 01-11 ALP [Catalytic activity/Vol] 103 U/L Normal 38-126 [facility] Comment on above: Performed By: #### H EMDF, ETOH4, CMP3 #### [facility] [address] [place] [address] ALT [Catalytic activity/Vol] 32 U/L Normal 0-49 [facility] Comment on above: Result Comment: The ALT test is performed by an updated assay method. Please note that the reference intervals have been changed and are now sex specific. Performed By: #### H EMDF, ETOH4, CMP3 #### [facility] [address] [place] [address] Anion gap [Moles/Vol] 10 mmol/L Normal 3-13 [facility] Comment on above: Performed By: #### H EMDF, ETOH4, CMP3 #### [facility] [address] [place] [address] AST [Catalytic activity/Vol] 56 U/L High 15-46 [facility] Comment on above: Performed By: #### H EMDF, ETOH4, CMP3 #### [facility] [address] [place] [address] Calcium [Mass/Vol] 8.9 mg/dL Normal 8.4-10.4 [facility] Comment on above: Performed By: #### H EMDF, ETOH4, CMP3 #### [facility] [address] [place] [address] CO2 [Moles/Vol] 24 mmol/L Normal 22-30 [facility] Comment on above: Performed By: #### H EMDF, ETOH4, CMP3 #### [facility] [address] [place] [address] Glucose [Mass/Vol] 265 mg/dL High 70-100 [facility] Comment on above: Performed By: #### H EMDF, ETOH4, CMP3 #### [facility] [address] [place] [address] Protein [Mass/Vol] 8.1 g/dL Normal 6.3-8.2 [facility] Comment on above: Performed By: #### H EMDF, ETOH4, CMP3 #### [facility] [address] [place] [address] Urea nitrogen [Mass/Vol] 13 mg/dL Normal 7-17 [facility] Comment on above: Performed By: #### H EMDF, ETOH4, CMP3 #### [facility] [address] [place] [address] Bilirubin [Mass/Vol] 0.8 mg/dL Normal 0.2-1.3 [facility] Comment on above: Performed By: #### H EMDF, ETOH4, CMP3 #### [facility] [address] [place] [address] Creatinine [Mass/Vol] 0.55 mg/dL Normal 0.52-1.25 [facility] Comment on above: Performed By: #### H EMDF, ETOH4, CMP3 #### [facility] [address] [place] [address] eGFR OTHER > 90.0 Normal >60 [facility] Comment on above: Result Comment: KDIG O [...] By: #### H EMDF, ETOH4, CMP3 #### [facility] [address] [place] [address] GFR/1.73 sq M.predicted among blacks MDRD (S/P/Bld) [Vol rate/Area] mL/min/{1.73_m2} Normal >60 [facility] Comment on above: Performed By: #### H EMDF, ETOH4, CMP3 #### [facility] [address] [place] [address] Chloride [Moles/Vol] 100 mmol/L Normal 98-107 [facility] Comment on above: Performed By: #### H EMDF, ETOH4, CMP3 #### [facility] [address] [place] [address] Potassium [Moles/Vol] 5.1 mmol/L Normal 3.5-5.1 [facility] Comment on above: Performed By: #### H EMDF, ETOH4, CMP3 #### [facility] [address] [place] [address] Sodium [Moles/Vol] 134 mmol/L Low 135-145 [facility] Comment on above: Performed By: #### H EMDF, ETOH4, CMP3 #### [facility] [address] [place] [address] Albumin [Mass/Vol] 4.5 g/dL Normal 3.5-5.0 [facility] Comment on above: Performed By: #### H EMDF, ETOH4, CMP3 #### [facility] [address] [place] [address] Drugs of Abuseon 01-11-2022 Phencyclidine (PCP), Ur Negative Normal [facility] Comment on above: Result Comment: The expected [...] order. Performed By: #### F ENTU #### [facility] [address] [place], [place] #### DRGA4 #### [facility] [address] [place] [address] Methadone, Ur Negative Normal [facility] Comment on above: Performed By: #### F ENTU #### [facility] [address], [place] #### DRGA4 #### [facility] [address] [place] [address] Opiates, Ur Negative Normal [facility] Comment on above: Performed By: #### F ENTU #### [facility] [address] [place] [address] #### DRGA4 #### [facility] [address] [place] [address] Barbiturates, Ur Negative Normal [facility] Comment on above: Performed By: #### F ENTU #### [facility] [address] [place] [address] #### DRGA4 #### [facility] [address] [place] [address] Cocaine, Ur Negative Normal [facility] Comment on above: Performed By: #### F ENTU #### [facility] [address] [place] [address] #### DRGA4 #### [facility] [address] [place] [address] Amphetamines, Ur Negative Normal [facility] Comment on above: Performed By: #### F ENTU #### [facility] [address] [place] [address] #### DRGA4 #### [facility] [address] [place] [address] Benzodiazepines, Ur Negative Normal [facility] Comment on above: Performed By: #### F ENTU #### [facility] [address] [place] [address] #### DRGA4 #### [facility] [address] [place] [address] Oxycodone/Oxymorphine,U r Negative Normal [facility] Comment on above: Performed By: #### F ENTU #### [facility] [address] [place] [address] #### DRGA4 #### [facility] [address] [place] [address] ED Provider Noteon ED Provider Note Emergency Department Encounter EVELYNFrancesco [facility] ED Patient: Abraham Bush : 1955 Date of Evaluation: 01/11/2022 ED Supervising Physician: Austin Rodriguez, DO I independently examined and evaluated Abraham Bush. In brief, Abraham Bush is a 66 y.o. male that [...] Will initiate MAT program. I, Dr. Austin Rodriguez, DO, am the criminal analyst of record. All diagnostic, treatment, and disposition [...] dictations but occasionally words are mis-transcribed.) Austin Rodriguez DO [employer] Austin Rodriguez DO 01/11/22 1330 [facility] ED Provider Note RENA SINGH ED eMERGENCY dEPARTMENT eNCOUnter Pt Name: Abraham Bush Birthdate 1955 Date of evaluation: 01/11/2022 Provider: Gianfranco Nelson APRN - FOOD TECHNOLOGY TEACHER This patient was seen in conjunction with Dr. Rodriguez CHIEF COMPLAINT Chief Complaint Patient presents with Addiction Problem Pt is wanting to be started in the MAT program. 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 Wants in patient detox HISTORY OF PRESENT ILLNESS (Location/Symptom, Timing/Onset,Context/Se tting, Quality, Duration, Modifying Factors, Severity) Note limiting factors. HPI Abraham Bush is a 66 y.o. male who [...] HERNIA REPAIR TONSILLECTOMY UPPER GASTROINTESTINAL ENDOSCOPY 03/16/2015 [facility] [employer]RETER STENT PLACEMENT Common bile duct CURRENT [...] Drug use: Yes Types: Other-see comments Comment: Elizabeth Social Determinants of Health Financial Resource Strain: [...] Activity: Insufficiently (more content not included)... Normal [facility] Ethanol Serum/Plasmaon 01-11 Ethanol-Serum/Plasma < 0.010 Normal 0.000-0.010 [facility] Comment on above: Result Comment: NOTE : This result is for medical treatment only. Analysis performed using non-forensic procedures. Performed By: #### H EMDF, ETOH4, CMP3 #### [facility] [address] [place] [address] Fentanyl Screen, Urineon Fentanyl Screen, Urn Positive Normal Negative [facility] Comment on above: Result Comment: Fent anyl has been screened for by Immunoassay at a 1 ng/ml threshold. POSITIVE results are not confirmed by a more specific alternative method unless requested. If confirmation is needed, request confirmation under separate order. NOTE: These results are for medical treatment only. Analysis performed using non-forensic procedures. Performed By: #### F ENTU #### [facility] [address] [place] [address] #### DRGA4 #### [facility] [address] [place] [address] Hemogram w/ Autodiffon 01-11 Abs Baso Cnt 0.1 10*3/uL Normal 0.0-0.2 [facility] Comment on above: Performed By: #### H EMDF, ETOH4, CMP3 #### [facility] [address] [place] [address] Abs Neutrophile Cnt 11.2 10*3/uL High 1.8-7.0 [facility] Comment on above: Performed By: #### H EMDF, ETOH4, CMP3 #### [facility] [address] [place] [address] Basophils/100 WBC (Bld) 1.0 % Normal 0.0-2.0 [facility] Comment on above: Performed By: #### H EMDF, ETOH4, CMP3 #### [facility] [address] [place] [address] Eosinophils (Bld) [#/Vol] 0.2 10*3/uL Normal 0.0-0.5 [facility] Comment on above: Performed By: #### H EMDF, ETOH4, CMP3 #### [facility] [address] [place] [address] Eosinophils/100 WBC (Bld) 1.7 % Normal 1.0-6.0 [facility] Comment on above: Performed By: #### H EMDF, ETOH4, CMP3 #### [facility] [address] [place] [address] Erythrocyte distribution width (RBC) [Ratio] 13.4 % Normal 11.5-14.5 [facility] Comment on above: Performed By: #### H EMDF, ETOH4, CMP3 #### [facility] [address] [place] [address] Granulocytes/100 WBC (Bld) 82.1 % High 40.0-80.0 [facility] Comment on above: Performed By: #### H EMDF, ETOH4, CMP3 #### [facility] [address] [place] [address] Hematocrit (Bld) [Volume fraction] 42.4 % Normal 40.0-52.0 [facility] Comment on above: Performed By: #### H EMDF, ETOH4, CMP3 #### [facility] [address] [place] [address] Hemoglobin (Bld) [Mass/Vol] 14.4 g/dL Normal 13.0-18.0 [facility] Comment on above: Performed By: #### H EMDF, ETOH4, CMP3 #### [facility] [address] [place] [address] Lymphocytes (Bld) [#/Vol] 1.5 10*3/uL Normal 1.0-4.3 [facility] Comment on above: Performed By: #### H EMDF, ETOH4, CMP3 #### [facility] [address] [place] [address] Lymphocytes/100 WBC (Bld) 11.3 % Low 20.0-40.0 [facility] Comment on above: Performed By: #### H EMDF, ETOH4, CMP3 #### [facility] [address] [place] [address] MCH (RBC) [Entitic mass] 31.3 pg Normal 26.0-34.0 [facility] Comment on above: Performed By: #### H EMDF, ETOH4, CMP3 #### [facility] [address] [place] [address] MCHC 34.0 % Normal 32.0-36.0 [facility] Comment on above: Performed By: #### H EMDF, ETOH4, CMP3 #### [facility] [address] [place] [address] MCV (RBC) [Entitic vol] 92.1 fL Normal 80.0-98.0 S [facility] Comment on above: Performed By: #### H EMDF, ETOH4, CMP3 #### [facility] [place] [facility] [address] [place] [address] Monocytes (Bld) [#/Vol] 0.5 10*3/uL Normal 0.0-0.8 [facility] Comment on above: Performed By: #### H EMDF, ETOH4, CMP3 #### [facility] [facility] [address] [place] [address] Monocytes/100 WBC (Bld) 3.9 % Normal 2.0-10.0 S [facility] Comment on above: Performed By: #### H EMDF, ETOH4, CMP3 #### [facility] [place] [facility] [address] [place] [address] Platelet mean volume (Bld) [Entitic vol] 8.6 fL Normal 7.4-12.4 [facility] Comment on above: Result Comment: MPV is a calculated measurement using platelet volume ratio. Performed By: #### H EMDF, ETOH4, CMP3 #### [facility] [facility] [address] [place] [address] Platelets (Bld) [#/Vol] 309 10*3/uL Normal 140-440 [facility] Comment on above: Performed By: #### H EMDF, ETOH4, CMP3 #### [facility] [place] [facility] [address] [place] [address] RBC (Bld) [#/Vol] 4.61 10*6/uL Normal 4.40-5.90 [facility] Comment on above: Performed By: #### H EMDF, ETOH4, CMP3 #### [facility] [address] [place] [address] WBC (Bld) [#/Vol] 13.6 10*3/uL High 3.6-10.7 [facility] Comment on above: Performed By: #### H EMDF, ETOH4, CMP3 #### [facility] [place] [facility] [address] [place] [address] ED Provider Noteon 2 ED Provider Note Eloped from the emergency department. Alvin Hernandez MD 01/11/22 0118 Normal [facility] CT Low Dose Lung Screeningon 2021 CT Low Dose Lung Screening Patient Name: ABRAHAM BUSH Computed Tomography ACCESSION EXAM DATE/TIME PROCEDURE ORDERING PROVIDER [id number] 2021 18:[address] Low Dose Lung Scrn MD CHICHI, TOD ZUÑIGA CPT code G0297 Reason For Exam [...] and 2; (more content not included)... Normal [facility] XR CERVICAL SPINE (4-5 VIEWS )on 04-19-2020 Patient Name: ABRAHAM BUSH Diagnostic Radiology ACCESSION EXAM DATE/TIME PROCEDURE ORDERING PROVIDER [id number] 04/19/2020 10:47 EST CR Spine Cervical 4+ MD CHICHI, TOD BAHENAOY CPT code 82468 Reason For Exam (CR Spine Cervical 4+ [...] LAURA Transcribed Date and Time: 04/19/2020 11:36 [facility], [facility], [facility] Incoming Radiology Results From [facility] - 04/19/2020 11:36 AM EST Patient Name: ABRAHAM BUSH Diagnostic Radiology ACCESSION EXAM DATE/TIME PROCEDURE ORDERING PROVIDER [id number] 04/19/2020 10:47 EST CR Spine Cervical 4+ MD CHICHI, TOD Worthington YOGESH CPT code 14698 Reason For Exam (CR Spine Cervical 4+ [...] LAURA Transcribed Date and Time: 04/19/2020 11:36 [place], [place] [facility]Con 09-15-2019 Erythrocyte distribution width (RBC) [Ratio] 14.3 % 11.5 - 14.5 % [place] Hematocrit (Bld) [Volume fraction] 41.3 % 40 - 52 % [place] Hemoglobin (Bld) [Mass/Vol] 13.9 g/dL 13 - 18 g/dL [place] MCH (RBC) [Entitic mass] 31.0 pg 26 - 34 pg [place] MCHC (RBC) [Mass/Vol] 33.6 % 32 - 36 % [place], [place] MCV (RBC) [Entitic vol] 92.3 fL 80 - 98 fL [place], [place] Platelet mean volume (Bld) [Entitic vol] 8.8 fL 7.4 - 10.4 fL [place] Platelets (Bld) [#/Vol] 285 10*3/uL 140 - 440 10*3/uL [place] RBC (Bld) [#/Vol] 4.48 10*6/uL 4.4 - 5.9 10*6/uL [place] WBC (Bld) [#/Vol] 9.7 10*3/uL 3.6 - 10.7 10*3/uL [place] Test Performed by [facility], [address] , [place], [place] [id number] [place] [address] Comprehensive Metabolic Pane meño 09-15-2019 Albumin [Mass/Vol] 4.1 g/dL 3.5 - 5 g/dL [place] ALP [Catalytic activity/Vol] 82 U/L 38 - 126 U/L [place] ALT [Catalytic activity/Vol] 13 U/L 0 - 49 U/L [place] Comment on above: The ALT test is perf ormed by an updated assay method. Please note that the reference intervals have been changed and are now sex specific. Anion gap [Moles/Vol] 10 mmol/L [place], [place] AST [Catalytic activity/Vol] 23 U/L 15 - 46 U/L [place] Bilirubin Ql (U) 0.1 mg/dL Low 0.2 - 1.3 mg/dL [place] Calcium [Mass/Vol] 9.4 mg/dL 8.4 - 10. 4 mg/dL [place] Chloride [Moles/Vol] 102 mmol/L 98 - 10 7 mmol/L [place] CO2 [Moles/Vol] 25 mmol/L 22 - 30 mmol/L [place] Creatinine [Mass/Vol] 0.81 mg/dL 0.52 - 1.25 mg/dL [place] EGFR IF NonAfrican Citizen Of [place] >90.0 >60 mL/min [place] Comment on above: KDIGO guidelines pro [...] MDRD (S/P/Bld) [Vol rate/Area] mL/min/{1.73_m2} >60 mL/min [place] Glucose [Mass/Vol] 290 mg/dL High 70 - 100 mg/dL [place] Interpretation and review of laboratory results Abnormal [place] Potassium [Moles/Vol] 5.0 mmol/L 3.5 - 5.1 mmol/L [place] Protein [Mass/Vol] 6.6 g/dL 6.3 - 8.2 g/dL [place] Sodium [Moles/Vol] 136 mmol/L 135 - 145 mmol/L [place] Urea nitrogen [Mass/Vol] 19 mg/dL 7 - 20 mg/dL [place] Test Performed by [facility], [address] [place] [address] [place] , [address] Emergency Room Note on 11-02-2016 [place] [facility] Note Normal [facility] Patient Summary Documentson 11-02-2016 Patient Summary Documents Normal [facility] Vital Signs Date Time Vital Sign Value Performing Clinician Facility 10-24-2024 18:00-0400 Diastolic blood pressure 96 mm[Hg] Dr. Jose Alfredo Valderrama DO Work Phone: [facility] 10-24-2024 18:00-0400 Heart rate 109 /min Dr. Jose Alfredo Valderrama DO Work Phone: [facility] 10-24-2024 18:00-0400 Systolic blood pressure 160 mm[Hg] Dr. Jose Alfredo Valderrama DO Work Phone: [facility] 10-24-2024 16:00-0400 Respiratory rate 25 /min Dr. Jose Alfredo Valderrama DO Work Phone: [facility] 10-24-2024 16:00-0400 SaO2% (BldA) [Mass fraction] 98 % Dr. Jose Alfredo Valderrama DO Work Phone: [facility] 10-24-2024 14:54-0400 Body temperature 98 [degF] Dr. Jose Alfredo Valderrama DO Work Phone: [facility] 10-24-2024 12:53-0400 Body height 177.[address] Jose Alfredo Valderrama DO Work Phone: [facility] 10-24-2024 12:53-0400 Body mass index (BMI) [Ratio] 25.1 kg/m2 Dr. Jose Alfredo Valderrama DO Work Phone: [facility] 10-24-2024 12:53-0400 Body weight 79.[address] Jose Alfredo Valderrama DO Work Phone: [facility] 09-15-2024 10:40-0400 Diastolic blood pressure 78 mm[Hg] Tod Lr MD Work Phone: [facility] 09-15-2024 10:40-0400 Heart rate 82 /min Tod Lr MD Work Phone: [facility] 09-15-2024 10:40-0400 Systolic blood pressure 134 mm[Hg] Tod Lr MD Work Phone: [facility] 09-15-2024 10:09-0400 Body height 177.8 cm Tod Lr MD Work Phone: [facility] 09-15-2024 10:09-0400 Body mass index (BMI) [Ratio] 26.37 kg/m2 Tod Lr MD Work Phone: [facility] 09-15-2024 10:09-0400 Body weight 83.37 kg Tod Lr MD Work Phone: [facility] 09-15-2024 10:09-0400 SaO2% (BldA) [Mass fraction] 95 % Tod Lr MD Work Phone: [facility] 08-28-2024 04:32-0400 Body temperature 97.9 [degF] Dr. Jose Alfredo Valderrama DO Work Phone: [facility] 08-28-2024 04:32-0400 Diastolic blood pressure 78 mm[Hg] Dr. Jose Alfredo Valderrama DO Work Phone: [facility] 08-28-2024 04:32-0400 Heart rate 79 /min Dr. Jose Alfredo Valderrama DO Work Phone: [facility] 08-28-2024 04:32-0400 Respiratory rate 18 /min Dr. Jose Alfredo Valderrama DO Work Phone: [facility] 08-28-2024 04:32-0400 SaO2% (BldA) [Mass fraction] 94 % Dr. Jose Alfredo Valderrama DO Work Phone: [facility] 08-28-2024 04:32-0400 Systolic blood pressure 157 mm[Hg] Dr. Jose Alfredo Valderrama DO Work Phone: [facility] 08-28-2024 02:21-0400 Body mass index (BMI) [Ratio] 28.5 kg/m2 Dr. Jose Alfredo Valderrama DO Work Phone: [facility] 08-28-2024 02:21-0400 Body weight 90.[address] Jose Alfredo Valderrama DO Work Phone: [facility] 08-26-2024 14:58-0400 Body temperature 98.4 [degF] Dr. Jose Alfredo Valderrama DO Work Phone: [facility] 08-26-2024 14:58-0400 Diastolic blood pressure 93 mm[Hg] Dr. Jose Alfredo Valderrama DO Work Phone: [facility] 08-26-2024 14:58-0400 Heart rate 83 /min Dr. Jose Alfredo Valderrama DO Work Phone: [facility] 08-26-2024 14:58-0400 Respiratory rate 16 /min Dr. Jose Alfredo Valderrama DO Work Phone: 2(346)475-257283 [place] [address] 08-26-2024 14:58-0400 SaO2% (BldA) [Mass fraction] 99 % Dr. Jose Alfredo Valderrama DO Work Phone: 6(574)059-658283 [place] [address] 08-26-2024 14:58-0400 Systolic blood pressure 157 mm[Hg] Dr. Jose Alfredo Valderrama DO Work Phone: 8(809)135-308883 [place] [address] 08-26-2024 08:53-0400 Inhaled oxygen concentration 30 % Dr. Jose Alfredo Valderrama DO Work Phone: 8(289)371-449483 [place] [address] 08-26-2024 08:53-0400 Inhaled oxygen flow rate 2 L/min Dr. Jose Alfredo Valderrama DO Work Phone: 3(322)954-303883 [place] [address] 08-26-2024 04:18-0400 Body mass index (BMI) [Ratio] 25.7 kg/m2 Dr. Jose Alfredo Valderrama DO Work Phone: 1(658)652-207483 [place] [address] 08-26-2024 04:18-0400 Body weight [address] Jose Alfredo Valderrama DO Work Phone: 4(968)792-725383 [place] [address] 08-10-2024 22:13-0400 Diastolic blood pressure 45 mm[Hg] Dr. Jose Alfredo Valderrama DO Work Phone: 6(698)114-915583 [place] [address] 08-10-2024 22:13-0400 Heart rate 117 /min Dr. Jose Alfredo Valderrama DO Work Phone: 7(724)124-205683 [place] [address] 08-10-2024 22:13-0400 Respiratory rate 24 /min Dr. Jose Alfredo Valderrama DO Work Phone: 6(078)980-749383 [place] [address] 08-10-2024 22:13-0400 Systolic blood pressure 84 mm[Hg] Dr. Jose Alfredo Valderrama DO Work Phone: 9(598)521-038183 [place] [address] 08-10-2024 22:00-0400 Body temperature 98.6 [degF] Dr. Jose Alfredo Valderrama DO Work Phone: [facility] 08-10-2024 22:00-0400 SaO2% (BldA) [Mass fraction] 98 % Dr. Jose Alfredo Valderrama DO Work Phone: [facility] 08-10-2024 21:30-0400 Inhaled oxygen concentration 40 % Dr. Jose Alfredo Valderrama DO Work Phone: [facility] 08-10-2024 18:27-0400 Body mass index (BMI) [Ratio] 25.2 kg/m2 Dr. Jose Alfredo Valderrama DO Work Phone: [facility] 08-10-2024 18:27-0400 Body weight 84.[address] Jose Alfredo Valderrama DO Work Phone: [facility] 08-10-2024 17:57-0400 Body height 182.[address] Jose Alfredo Valderrama DO Work Phone: [facility] 08-05-2024 11:41-0400 Body height 177.8 cm Albina Servin APRN - FOOD TECHNOLOGY TEACHER Work Phone: [facility] [place] 08-05-2024 11:41-0400 Body mass index (BMI) [Ratio] 26.2 kg/m2 Albina Servin CUSTOMER ACCOUNT COORDINATOR - FOOD TECHNOLOGY TEACHER Work Phone: [facility] [place] 08-05-2024 11:41-0400 Body weight 82.83 kg Albina Servin APRN - FOOD TECHNOLOGY TEACHER Work Phone: [facility] [place] 08-05-2024 11:41-0400 Diastolic blood pressure 68 mm[Hg] Albina Servin APRN - FOOD TECHNOLOGY TEACHER Work Phone: [facility] [place] 08-05-2024 11:41-0400 Heart rate 98 /min Albina Servin APRN - FOOD TECHNOLOGY TEACHER Work Phone: [facility] 08-05-2024 11:41-0400 Systolic blood pressure 122 mm[Hg] Albina Servin APRN - FOOD TECHNOLOGY TEACHER Work Phone: [facility] 02-17-2024 09:16-0400 Body temperature 97.5 [degF] Kuldeep Rios MD Work Phone: [employer] [place] 02-17-2024 09:16-0400 Diastolic blood pressure 90 mm[Hg] Kuldeep Rios MD Work Phone: [employer] [place] 02-17-2024 09:16-0400 Heart rate 75 /min Kuldeep Rios MD Work Phone: [employer] [place] 02-17-2024 09:16-0400 Respiratory rate 18 /min Kuldeep Rios MD Work Phone: [employer] [employer] [facility] 02-17-2024 09:16-0400 SaO2% (BldA) [Mass fraction] 97 % Kuldeep Rios MD Work Phone: [employer] [facility] 02-17-2024 09:16-0400 Systolic blood pressure 132 mm[Hg] Kuldeep Rios MD Work Phone: [employer] [facility] 02-16-2024 10:29-0400 Body height 177.8 cm Kuldeep Rios MD Work Phone: [employer] [facility] 02-15-2024 15:59-0400 Body mass index (BMI) [Ratio] 25.83 kg/m2 Kuldeep Rios MD Work Phone: [employer] [facility] 02-15-2024 15:59-0400 Body weight 81.65 kg Kuldeep Rios MD Work Phone: [employer] [facility] 10-01-2023 10:08-0400 Body height 177.8 cm Dee Pitts APRN - FOOD TECHNOLOGY TEACHER Work Phone: [facility] [facility] 10-01-2023 10:08-0400 Body mass index (BMI) [Ratio] 26.69 kg/m2 Dee Pitts APRN - FOOD TECHNOLOGY TEACHER Work Phone: [facility] [facility] [facility] 10-01-2023 10:08-0400 Body weight 84.37 kg Dee Pitts APRN - FOOD TECHNOLOGY TEACHER Work Phone: [employer] [facility] 10-01-2023 10:08-0400 Diastolic blood pressure 62 mm[Hg] Dee Pitts APRN - FOOD TECHNOLOGY TEACHER Work Phone: [facility] 10-01-2023 10:08-0400 Heart rate 60 /min Dee Pitts APRN - FOOD TECHNOLOGY TEACHER Work Phone: [facility] 10-01-2023 10:08-0400 Systolic blood pressure 122 mm[Hg] Dee Pitts APRN - FOOD TECHNOLOGY TEACHER Work Phone: [facility] 05-27-2023 09:32-0500 Body height 177.8 cm Rosa Partida MD Work Phone: [facility] 05-27-2023 09:32-0500 Body mass index (BMI) [Ratio] 27.06 kg/m2 Rosa Partida MD Work Phone: [facility] 05-27-2023 09:32-0500 Body weight 85.55 kg Rosa Partida MD Work Phone: [facility] [facility] 05-27-2023 09:32-0500 Diastolic blood pressure 83 mm[Hg] Rosa Partida MD Work Phone: [facility] [facility] [facility] 05-27-2023 09:32-0500 Heart rate 78 /min Rosa Partida MD Work Phone: [facility] [facility] [employer] [facility] 05-27-2023 09:32-0500 Systolic blood pressure 132 mm[Hg] Rosa Partida MD Work Phone: [facility] 11-13-2022 08:49-0400 Body height 177.8 cm Dee Pitts APRN - FOOD TECHNOLOGY TEACHER Work Phone: [facility] [facility] [facility] 11-13-2022 08:49-0400 Body mass index (BMI) [Ratio] 27.26 kg/m2 Dee Pitts APRN - FOOD TECHNOLOGY TEACHER Work Phone: [facility] 11-13-2022 08:49-0400 Body weight 86.18 kg Dee Pitts APRN - FOOD TECHNOLOGY TEACHER Work Phone: [facility] 11-13-2022 08:49-0400 Diastolic blood pressure 70 mm[Hg] Dee Foster CUSTOMER ACCOUNT COORDINATOR - FOOD TECHNOLOGY TEACHER Work Phone: [facility] 11-13-2022 08:49-0400 Heart rate 72 /min Dee Ravindra CUSTOMER ACCOUNT COORDINATOR - FOOD TECHNOLOGY TEACHER Work Phone: [facility] 11-13-2022 08:49-0400 Systolic blood pressure 130 mm[Hg] Dee Ravindra CUSTOMER ACCOUNT COORDINATOR - FOOD TECHNOLOGY TEACHER Work Phone: [facility] 08-18-2022 08:25-0400 Body temperature 97.2 [degF] LOTUS Marie MD Work Phone: [facility] 08-18-2022 08:25-0400 Diastolic blood pressure 68 mm[Hg] LOTUS Marie MD Work Phone: [facility] 08-18-2022 08:25-0400 Heart rate 70 /min LOTUS Marie MD Work Phone: [facility] 08-18-2022 08:25-0400 Respiratory rate 16 /min LOTUS Marie MD Work Phone: [facility] 08-18-2022 08:25-0400 SaO2% (BldA) [Mass fraction] 93 % LOTUS Marie MD Work Phone: [facility] 08-18-2022 08:25-0400 Systolic blood pressure 118 mm[Hg] LOTUS Marie MD Work Phone: [facility] 08-17-2022 11:19-0400 Body height 177.8 cm LOTUS Marie MD Work Phone: [facility] 08-14-2022 16:01-0400 Body mass index (BMI) [Ratio] 25.17 kg/m2 LOTUS Marie MD Work Phone: [facility] 08-14-2022 16:01-0400 Body weight 79.56 kg LOTUS Marie MD Work Phone: [facility] 05-10-2022 09:19-0500 Body height 177.8 cm Deehunter Pitts APRN - FOOD TECHNOLOGY TEACHER Work Phone: [facility] 05-10-2022 09:19-0500 Body mass index (BMI) [Ratio] 27.25 kg/m2 Dee Pitts CUSTOMER ACCOUNT COORDINATOR - FOOD TECHNOLOGY TEACHER Work Phone: [facility] 05-10-2022 09:19-0500 Body weight 86.14 kg Dee Pitts CUSTOMER ACCOUNT COORDINATOR - FOOD TECHNOLOGY TEACHER Work Phone: [facility] 05-10-2022 09:19-0500 Diastolic blood pressure 89 mm[Hg] Dee Pitts CUSTOMER ACCOUNT COORDINATOR - FOOD TECHNOLOGY TEACHER Work Phone: [facility] 05-10-2022 09:19-0500 Heart rate 77 /min Dee Pitts CUSTOMER ACCOUNT COORDINATOR - FOOD TECHNOLOGY TEACHER Work Phone: [facility] 05-10-2022 09:19-0500 Systolic blood pressure 132 mm[Hg] Dee Pitts CUSTOMER ACCOUNT COORDINATOR - FOOD TECHNOLOGY TEACHER Work Phone: [facility] 05-09-2022 12:13-0500 Diastolic blood pressure 99 mm[Hg] Tod Lr MD Work Phone: [facility] 05-09-2022 12:13-0500 Heart rate 78 /min Tod Lr MD Work Phone: [facility] 05-09-2022 12:13-0500 Systolic blood pressure 158 mm[Hg] Tod Lr MD Work Phone: [facility] 05-09-2022 11:56-0500 Body height 177.8 cm Tod Lr MD Work Phone: [facility] 05-09-2022 11:56-0500 Body mass index (BMI) [Ratio] 27.12 kg/m2 Tod Lr MD Work Phone: [facility] [facility] [facility] 05-09-2022 11:56-0500 Body weight 85.73 kg Tod Lr MD Work Phone: [facility] 01-10-2022 19:57-0400 Body mass index (BMI) [Ratio] 28.9 kg/m2 Alvin Hernandez MD Work Phone: [employer] 01-10-2022 19:57-0400 Body temperature 98.71 [degF] Alvin Hernandez MD Work Phone: [facility] 01-10-2022 19:57-0400 Body weight 90.72 kg Alvin Hernandez MD Work Phone: [facility] 01-10-2022 19:57-0400 Diastolic blood pressure 90 mm[Hg] Alvin Hernandez MD Work Phone: [facility] 01-10-2022 19:57-0400 Heart rate 82 /min Alvin Hernandez MD Work Phone: [facility] 01-10-2022 19:57-0400 Respiratory rate 18 /min Alvin Hernandez MD Work Phone: [facility] 01-10-2022 19:57-0400 SaO2% (BldA) [Mass fraction] 96 % Alvin Hernandez MD Work Phone: [facility] 01-10-2022 19:57-0400 Systolic blood pressure 149 mm[Hg] Alvin Hernandez MD Work Phone: [facility] Encounters Encounter Date Encounter Type Care Provider Facility Start: 10-24-2024 Evaluation and management of inpatient Dr. Jose Alfredo Valderrama DO Work Phone: -Intensive Care Unit Start: 10-24-2024 Dr. Michelle Martin MD -In tensive Care Unit Work Phone: Start: 09-15-2024 End: 09-15-2024 ambulatory TOD LR [facility] Start: 09-15-2024 End: 09-15-2024 Office outpatient visit 25 minutes Tod Lr MD Work Phone: [facility] Comment on above: Type 1 diabetes christy itus with hyperglycemia (HCC) (Primary Dx); Nausea and vomiting, unspecified vomiting type; Mixed hyperlipidemia; Primary hypothyroidism Start: 08-28-2024 ambulatory Ramana Huntley Facility:[facility] Start: 08-28-2024 Dr. Jeffery Villafana MD -W [facility] Start: 08-28-2024 End: 08-28-2024 Dr. Ramana Huntley DO -Emergency Departmen t Work Phone: Start: 08-28-2024 End: 08-28-2024 Emergency department patient visit Ramana Huntley Facility:[facility] Start: 08-26-2024 Dr. Gary Lezama MD -[facility] Start: 08-25-2024 Sita Plummer [facility] Start: 08-25-2024 Dr. Miki Glover MD -[facility] Work Phone: Start: 08-24-2024 Dr. Miki Glover MD -[facility] Work Phone: Start: 08-23-2024 Dr. Ranjan gillespie [facility] Work Phone: Start: 08-22-2024 Dr. Ranjan gillespie [facility] Work Phone: Start: 08-21-2024 Dr. Ranjan gillespie [facility] Work Phone: Start: 08-21-2024 Dr. Vero Landeros DO [facility] Start: 08-20-2024 Dr. Ranjan gillespie [facility] Work Phone: Start: 08-20-2024 Dr. Vero Landeros DO -[facility] Start: 08-19-2024 Dr. Ranjan gillespie [facility] Work Phone: Start: 08-19-2024 Dr. Vero Landeros DO [facility] Start: 08-18-2024 Dr. Ranjan gillespie [facility] Work Phone: Start: 08-18-2024 Dr. Vero Landeros DO -[facility] Start: 08-17-2024 Dr. Ranjan gillespie [facility] Work Phone: Start: 08-17-2024 Dr. Vero Landeros [facility] Start: 08-16-2024 Dr. Brandon Medrano MD -[place] [facility] Work Phone: Start: 08-15-2024 ambulatory [facility] Facility :[facility] Start: 08-15-2024 Dr. Scottie Martinez MD -[facility] Start: 08-15-2024 Dr. Brandon Medrano MD -[place] [facility] Work Phone: Start: 08-14-2024 [facility] -[facility] Start: 08-14-2024 Dr. Brandon Medrano MD -[place] [facility] Work Phone: Start: 08-13-2024 Dr. Brandon Medrano MD -[place] [facility] Work Phone: Start: 08-12-2024 ambulatory [facility] Facility :[facility] Start: 08-12-2024 [facility] Start: 08-12-2024 Dr. Brandon Medrano MD -[place] [facility] Work Phone: Start: 08-12-2024 Dr. Vero Landeros DO [facility] Start: 08-11-2024 [facility] Start: 08-11-2024 Dr. Brandon Medrano MD -[place] [facility] Work Phone: Start: 08-11-2024 Dr. Vero Landeros DO [facility] Start: 08-10-2024 ambulatory [facility] Facility :[facility] Start: 08-10-2024 End: 08-26-2024 Evaluation and management of inpatient Dr. Miki Abdi DO -Intensive Care Unit Work Phone: Start: 08-10-2024 End: 08-26-2024 Dr. Miki Glover MD -[facility] it Work Phone: Start: 08-06-2024 End: 08-07-2024 Refill Albina Servin CUSTOMER ACCOUNT COORDINATOR - FOOD TECHNOLOGY TEACHER Work Phone: [facility] Start: 08-05-2024 End: 08-05-2024 ambulatory ALBINA SERVIN [facility] Start: 08-05-2024 End: 08-05-2024 Office outpatient visit 25 minutes Albina Zapata Malathi CUSTOMER ACCOUNT COORDINATOR - FOOD TECHNOLOGY TEACHER Work Phone: [facility] Comment on above: Type 1 diabetes christy itus with hyperglycemia (HCC) (Primary Dx); Mixed diabetic hyperlipidemia associated with type 2 diabetes mellitus (HCC); Hypertension associated with type 2 diabetes mellitus (HCC); Acquired hypothyroidism Start: 07-30-2024 End: 07-30-2024 Orders Only Dee Madi Pitts CUSTOMER ACCOUNT COORDINATOR - FOOD TECHNOLOGY TEACHER Work Phone: [facility] Comment on above: Type 1 diabetes christy itus with hyperglycemia (HCC) (Primary Dx); Mixed hyperlipidemia Request For Order(s) Start: 07-28-2024 End: 07-28-2024 Telephone encounter Florentino Flowers MD Work Phone: [facility] Comment on above: Other (Clinical Note s Request) Start: 07-07-2024 End: 07-08-2024 Refill Albina Zapata Malathi CUSTOMER ACCOUNT COORDINATOR - FOOD TECHNOLOGY TEACHER Work Phone: [facility] Clinical Communication Comment on above: Type 1 diabetes christy itus with hyperglycemia (HCC) Start: 06-18-2024 End: 06-18-2024 Refill Albina Zapata Malathi CUSTOMER ACCOUNT COORDINATOR - FOOD TECHNOLOGY TEACHER Work Phone: [facility] Clinical Communication Comment on above: Type 1 diabetes christy itus with hyperglycemia (HCC) Start: 04-12-2024 End: 04-16-2024 Refill Rosa Partida MD Work Phone: [facility] Clinical Communication Comment on above: Type 1 diabetes christy itus with hyperglycemia (HCC) Start: 02-15-2024 End: 02-17-2024 Evaluation and management of inpatient Kuldeep Rios MD Work Phone: [facility] Medical Surgical Unit [facility] Comment on above: Nausea and vomiting, unspecified vomiting type (Primary Dx); Dehydration; Diabetic ketoacidosis without coma associated with other specified diabetes mellitus (HCC) Start: 10-01-2023 End: 10-01-2023 ambulatory DEE PITTS [facility] Start: 10-01-2023 End: 10-01-2023 Office outpatient visit 25 minutes Dee Pitts CUSTOMER ACCOUNT COORDINATOR - FOOD TECHNOLOGY TEACHER Work Phone: [facility] Comment on above: Type 1 diabetes christy itus with hyperglycemia (HCC) (Primary Dx); Essential hypertension; Acquired hypothyroidism Start: 09-27-2023 End: 11-15-2023 ambulatory [facility] Start: 09-27-2023 End: 11-15-2023 Patient encounter procedure Kati Olivares RN [facility] Clinical Communication Comment on above: Type 1 diabetes christy itus with hyperglycemia (HCC) Start: 09-02-2023 Refill Dee Wren ster CUSTOMER ACCOUNT COORDINATOR - FOOD TECHNOLOGY TEACHER Work Phone: [facility] Comment on above: Essential hypertensi on (Primary Dx) Start: 07-17-2023 Telephone encounter Dee Pitts CUSTOMER ACCOUNT COORDINATOR - FOOD TECHNOLOGY TEACHER Work Phone: [facility] Comment on above: Med Management (Offi ce notes request) Start: 05-28-2023 Telephone encounter Rosa Partida MD Work Phone: [facility] Start: 05-27-2023 End: 05-27-2023 Office outpatient visit 25 minutes Rosa Partida MD Work Phone: [facility] Comment on above: Type 1 diabetes christy itus with hyperglycemia (HCC) (Primary Dx); Mixed hyperlipidemia; Primary hypothyroidism Start: 03-30-2023 ambulatory Judith Weiss RN [facility] C linical Communication Start: 03-30-2023 Patient encounter procedure Judith Weiss RN [facility] Clinical Communication Comment on above: Type 1 diabetes christy itus with hyperglycemia (HCC) Start: 02-07-2023 Refill Dee Wren ster CUSTOMER ACCOUNT COORDINATOR - FOOD TECHNOLOGY TEACHER Work Phone: [facility] Start: 01-29-2023 Telephone encounter Tod Eason MD Work Phone: [facility] Comment on above: Annual Lung Screenin g Reminder Start: 11-13-2022 End: 11-13-2022 Office outpatient visit 25 minutes Dee Pitts CUSTOMER ACCOUNT COORDINATOR - FOOD TECHNOLOGY TEACHER Work Phone: [facility] Comment on above: Type 1 diabetes christy itus with hyperglycemia (HCC) (Primary Dx); Acquired hypothyroidism Start: 09-28-2022 Telephone encounter Evangelina Lui RN [facility] Start: 08-17-2022 Telephone encounter Evangelina Lui RN [facility] Comment on above: Care Coordination Care Coordination; P rocedure Start: 08-14-2022 End: 08-18-2022 Evaluation and management of inpatient J Sue Marie MD Work Phone: [facility] 2E TELEMETRY Comment on above: Vomiting (Primary Dx ); Abnormal CT scan Start: 07-11-2022 Telephone encounter Dee Hartman MD Work Phone: [facility]hthal[facility] Comment on above: No Show Start: 05-10-2022 End: 05-10-2022 Office outpatient visit 25 minutes Dee Pitts CUSTOMER ACCOUNT COORDINATOR - FOOD TECHNOLOGY TEACHER Work Phone: [facility] Comment on above: Type 1 diabetes christy itus with hyperglycemia (HCC) (Primary Dx); Acquired hypothyroidism Start: 05-09-2022 End: 05-09-2022 Office outpatient visit 25 minutes Tod Lr MD Work Phone: [facility] Comment on above: Primary hypothyroidi sm (Primary Dx); Mixed hyperlipidemia; Type 1 diabetes mellitus with hyperglycemia (HCC); Chronic nausea; Tobacco abuse Start: 02-01-2022 ambulatory UNKNOWN PROVIDER [facility] Start: 01-11-2022 End: 01-11-2022 Emergency department patient visit AUSTIN RODRIGUEZ [facility] Start: 01-10-2022 End: 01-11-2022 Emergency department patient visit UNKNOWN PROVIDER [facility] Start: 01-10-2022 End: 01-11-2022 Emergency department patient visit Alvin Hernandez MD Work Phone: [facility] Start: 2021 ambulatory Tod Comer [facility] Start: 2021 End: 2021 Subsequent hospital visit by physician Tod Lr MD Work Phone: [facility] CT Scan Comment on above: Cigarette smoker Start: 04-19-2020 End: 04-19-2020 Subsequent hospital visit by physician Tod Lr Work Phone: [facility] Comment on above: Cervical radiculopat hy Start: 09-15-2019 End: 09-15-2019 Subsequent hospital visit by physician Asha Nobles Work Phone: [facility] Start: 11-02-2016 End: 11-02-2016 Emergency department patient visit JAVAN EricksonGuero MCKEON Facility:[facility] Procedures Date Procedure Procedure Detail Performing Clinician Start: 10-24-[address] Jose Alfredo Valderrama DO Work Phone: Start: 10-24-[address] Jose Alfreod Valderrama DO Work Phone: Start: 10-24-2024 Urine microscopy: red cells Dr. Jose Alfredo ervin DO Work Phone: Start: 10-24-2024 Urnls dip stick/tablet reagent auto microscopy Dr. Jose Alfredo Valderrama DO Work Phone: Start: 10-24-2024 Venous oxygen saturation measurement Dr. Jose Alfredo Valderrama DO Work Phone: Start: 10-24-2024 Calculation of international normalized ratio Dr. Jose Alfredo Valderrama DO Work Phone: Start: 10-24-2024 Computed tomography of abdomen and pelvis with intravenous contrast Dr. Jose Alfredo Valderrama DO Work Phone: Start: 10-24-2024 Plain chest X-ray Dr. Jose Alfredo Valderrama DO Work Phone: Start: 10-24-2024 Blood count smear mcrscp w/mnl difrntl wbc count Dr. Jose Alfredo Valderrama DO Work Phone: Start: 10-24-2024 Mean corpuscular hemoglobin concentration determination Dr. Jose Alfredo Valderrama DO Work Phone: Start: 10-24-2024 Nucleated red blood cell count procedure Dr. Jose Alfredo Valderrama DO Work Phone: Start: 10-24-2024 Platelet mean volume determination Dr. John Valderrama DO Work Phone: Start: 09-14-2024 Adult depression screening assessment Tod Lr MD Work Phone: Start: 08-28-2024 Blood count smear mcrscp w/mnl difrntl wbc count Dr. Jose Alfredo Valderrama DO Work Phone: Start: 08-28-2024 Mean corpuscular hemoglobin concentration determination Dr. Jose Alfredo Valderrama DO Work Phone: Start: 08-28-2024 Nucleated red blood cell count procedure Dr. Jose Alfredo Valderrama DO Work Phone: Start: 08-28-2024 Platelet mean volume determination Dr. John Valderrama DO Work Phone: Start: 08-26-2024 Plain chest X-ray Dr. Jose Alfredo Valderrama DO Work Phone: Start: 08-26-2024 Insertion of hemodialysis catheter Dr. John Valderrama DO Work Phone: Start: 08-26-[address] Joes Alfredo Valderrama DO Work Phone: Start: 08-26-2024 Blood count smear mcrscp w/mnl difrntl wbc count Dr. Jose Alfredo Valderrama DO Work Phone: Start: 08-26-2024 Calculation of international normalized ratio Dr. Jose Alfredo Valderrama DO Work Phone: Start: 08-26-[address] Jose Alfredo Valderrama DO Work Phone: Start: 08-26-2024 Mean corpuscular hemoglobin concentration determination Dr. Jose Alfredo Valderrama DO Work Phone: Start: 08-26-2024 Nucleated red blood cell count procedure Dr. Jose Alfredo Valderrama DO Work Phone: Start: 08-26-2024 Platelet mean volume determination Dr. John Valderrama DO Work Phone: Start: 08-25-2024 Hepatitis A virus antibody, IgM type Dr. Jose Alfredo Valderrama DO Work Phone: Start: 08-25-2024 Hepatitis B core antibody measurement, IgM type Dr. Jose Alfredo Valderrama DO Work Phone: Start: 08-25-2024 Hepatitis C antibody measurement Dr. Yudy Valderrama DO Work Phone: Start: 08-25-2024 Hepatitis C virus RNA assay Dr. Jose Alfredo ervin DO Work Phone: Start: 08-25-2024 Serum inorganic phosphate measurement Dr. Jose Alfredo Valderrama DO Work Phone: Start: 08-18-2024 Plain chest X-ray Dr. Jose Alfredo Valderrama DO Work Phone: Start: 08-17-2024 Plain chest X-ray Dr. Jose Alfredo Valderrama DO Work Phone: Start: 08-15-2024 Plain chest X-ray Dr. Jose Alfredo Valderrama DO Work Phone: Start: 08-15-2024 Carbon dioxide measurement, partial pressure Dr. Jose Alfredo Valderrama DO Work Phone: Start: 08-15-2024 Gases blood o2 saturation only direct jessica Dr. Jose Alfredo Valderrama DO Work Phone: Start: 08-15-2024 Measurement of partial pressure of oxygen in blood Dr. Jose Alfredo Valderrama DO Work Phone: Start: 08-15-[address] Jose Alfredo Valderrama DO Work Phone: Start: 08-14-[address] Jose Alfredo Valderrama DO Work Phone: Start: 08-14-[address] Jose Alfredo Valderrama DO Work Phone: Start: 08-14-[address] Jose Alfredo Valderrama DO Work Phone: Start: 08-12-2024 Complete ultrasound of kidneys and bladder Dr. Jose Alfredo Valderrama DO Work Phone: Start: 08-11-[address] Jose Alfredo campos DO Work Phone: Start: 08-11-[address] Jose Alfredo Valderrama DO Work Phone: Start: 08-10-2024 CT of thorax, abdomen and pelvis with contrast Dr. Jose Alfredo Valderrama DO Work Phone: Start: 08-10-2024 Plain chest X-ray Dr. Jose Alfredo Valderrama DO Work Phone: Start: 08-10-2024 Urine microscopy: red cells Dr. Jose Alfredo ervin DO Work Phone: Start: 08-10-2024 Urnls dip stick/tablet reagent auto microscopy Dr. Jose Alfredo Valderrama DO Work Phone: Start: 08-10-2024 Benzodiazepine measurement, urine Dr. Xochitl Valderrama DO Work Phone: Start: 08-10-2024 Cocaine measurement, urine Dr. Jose Alfredo campos DO Work Phone: Start: 08-10-2024 Methadone measurement, urine Dr. Jose Alfredo berkowitz DO Work Phone: Start: 08-10-[address] Jose Alfredo aponte DO Work Phone: Start: 08-10-[address] Jose Alfredo leung DO Work Phone: Start: 08-10-2024 Plain chest X-ray Dr. Jose Alfredo Valderrama DO Work Phone: Start: 08-10-2024 Plain chest X-ray Dr. Jose Alfredo Valderrama DO Work Phone: Start: 08-10-[address] Jose Alfredo Valderrama DO Work Phone: Start: 08-10-[address] Jose Alfredo Valderrama DO Work Phone: Start: 08-10-[address] Jose Alfredo aponte DO Work Phone: Start: 08-05-2024 Hemoglobin glycosylated a1c Albina kim CUSTOMER ACCOUNT COORDINATOR - FOOD TECHNOLOGY TEACHER Work Phone: Start: 08-04-2024 Lipid 1996 panel - Serum or Plasma Albina Mendozaney CUSTOMER ACCOUNT COORDINATOR - FOOD TECHNOLOGY TEACHER Work Phone: Start: 02-17-2024 Glucose quantitative blood xcpt reagent strip Malini Laguna MD Work Phone: Start: 02-17-2024 Glucose quantitative blood xcpt reagent strip Pam Shell MD Work Phone: Start: 02-17-2024 Basic metabolic panel calcium total Lane Maldonado MD Work Phone: Start: 02-16-2024 Glucose quantitative blood xcpt reagent strip Pam Shell MD Work Phone: Start: 02-16-2024 Glucose quantitative blood xcpt reagent strip Pam Shell MD Work Phone: Start: 02-16-2024 Glucose quantitative blood xcpt reagent strip Lane Maldonado MD Work Phone: Start: 02-16-2024 End: 02-16-2024 Basic metabolic panel calcium total Lane Maldonado MD Work Phone: Start: 02-16-2024 End: 02-16-2024 Basic metabolic panel calcium total Marcel Wright DO Work Phone: Start: 02-15-2024 Glucose quantitative blood xcpt reagent strip Lane Maldonado MD Work Phone: Start: 02-15-2024 End: 02-15-2024 Glucose quantitative blood xcpt reagent strip Lane Maldonado MD Work Phone: Start: 02-15-2024 End: 02-15-2024 Basic metabolic panel calcium total Marcel Hakeem Wright DO Work Phone: Start: 02-15-[address] Maldonado MD Work Phone: Start: 02-15-2024 Urinalysis complete panel - Urine Lane Maldonado MD Work Phone: Start: 02-15-2024 Urnls dip stick/tablet reagent auto microscopy Kuldeep Rios MD Work Phone: Start: 02-15-2024 Radiologic exam chest single view Lane Maldonado MD Work Phone: Start: 02-15-2024 Glucose quantitative blood xcpt reagent strip Kuldeep Rios MD Work Phone: Start: 02-15-2024 Blood gases any combination ph pco2 po2 co2 hco3 Kuldeep Rios MD Work Phone: Start: 02-15-2024 End: 02-15-2024 Comprehensive metabolic panel Kuldeep arzate MD Work Phone: Start: 02-15-2024 Ecg routine ecg w/least 12 lds trcg only w/o i&r Kuldeep Rios MD Work Phone: Start: 10-01-2023 Hemoglobin glycosylated a1c Dee Pitts CUSTOMER ACCOUNT COORDINATOR - FOOD TECHNOLOGY TEACHER Work Phone: Start: 05-27-2023 Hemoglobin glycosylated a1c Rosa Partida MD Work Phone: Start: 05-27-2023 Lipid 1996 panel - Serum or Plasma Val Partida MD Work Phone: Start: 05-27-2023 Thyrotropin [Units/volume] in Serum or Plasma Rosa Partida MD Work Phone: Start: 02-15-2023 Thyrotropin [Units/volume] in Serum or Plasma Judith Weiss RN Start: 11-13-2022 Hemoglobin glycosylated a1c Dee Pitts CUSTOMER ACCOUNT COORDINATOR - FOOD TECHNOLOGY TEACHER Work Phone: Start: 08-18-2022 Glucose quantitative blood xcpt reagent strip Pam Shell MD Work Phone: Start: 08-18-2022 Glucose quantitative blood xcpt reagent strip Pam Shell MD Work Phone: Start: 08-17-2022 Glucose quantitative blood xcpt reagent strip Pam Shell MD Work Phone: Start: 08-17-2022 Glucose quantitative blood xcpt reagent strip Pam Shell MD Work Phone: Start: 08-17-2022 Glucose quantitative blood xcpt reagent strip Pam Shell MD Work Phone: Start: 08-17-2022 Glucose quantitative blood xcpt reagent strip Pam Shell MD Work Phone: Start: 08-17-2022 Comprehensive metabolic panel Pam Pack Work Phone: Start: 08-17-2022 Glucose quantitative blood xcpt reagent strip Pam Shell MD Work Phone: Start: 08-16-2022 Glucose quantitative blood xcpt reagent strip Pam Shell MD Work Phone: Start: 08-16-2022 Glucose quantitative blood xcpt reagent strip Pam Shell MD Work Phone: Start: 08-16-2022 Glucose quantitative blood xcpt reagent strip Pam Shell MD Work Phone: Start: 08-16-2022 End: 08-16-2022 Egd transoral biopsy single/multiple Caleb Wilson DO Work Phone: Start: 08-16-2022 Glucose quantitative blood xcpt reagent strip Pam Shell MD Work Phone: Start: 08-16-2022 Comprehensive metabolic panel Pam Pack Work Phone: Start: 08-15-2022 Glucose quantitative blood xcpt reagent strip Pam Shell MD Work Phone: Start: 08-15-2022 Glucose quantitative blood xcpt reagent strip Pam Shell MD Work Phone: Start: 08-15-2022 Glucose quantitative blood xcpt reagent strip Pam Shell MD Work Phone: Start: 08-15-2022 Glucose quantitative blood xcpt reagent strip Pam Shell MD Work Phone: Start: 08-15-2022 Mri abdomen w/o contrast material Stanislaw Wilson Work Phone: Start: 08-15-2022 Glucose quantitative blood xcpt reagent strip Pam Shell MD Work Phone: Start: 08-15-2022 End: 08-15-2022 POCT GLUCOSE METER UNSOLICITED RESULTS Pam Shell MD Work Phone: Start: 08-15-2022 Comprehensive metabolic panel Pam Pack Work Phone: Start: 08-14-2022 Glucose quantitative blood xcpt reagent strip Pam Shell MD Work Phone: Start: 08-14-2022 End: 08-14-2022 Glucose quantitative blood xcpt reagent strip Frederic Marie MD Work Phone: Start: 08-14-2022 POCT GLUCOSE METER UNSOLICITED RESULTS Frederic Marie MD Work Phone: Start: 08-14-2022 Us abdominal real time w/image limited Frederic Marie MD Work Phone: Start: 08-14-2022 SARS-COV-2, FLU A/B, AND RSV COMBO Frederic Marie MD Work Phone: Start: 08-14-2022 Assay of lactate Frederic Marie MD Work Phone: Start: 08-14-2022 Bacteria identified in Blood by Culture Frederic Marie MD Work Phone: Start: 08-14-2022 Urinalysis complete panel - Urine Frederic Marie MD Work Phone: Start: 08-14-2022 Urnls dip stick/tablet reagent auto microscopy rFederic Marie MD Work Phone: Start: 08-14-2022 Ct abdomen & pelvis w/contrast material Frederic Marie MD Work Phone: Start: 08-14-2022 Blood gases any combination ph pco2 po2 co2 hco3 J Sue Marie MD Work Phone: Start: 08-14-2022 Comprehensive metabolic panel J Sue Marie MD Work Phone: Start: 08-14-2022 Ecg routine ecg w/least 12 lds trcg only w/o i&r J Sue Marie MD Work Phone: Start: 05-09-2022 Lipid 1996 panel - Serum or Plasma Destiny Pitts CUSTOMER ACCOUNT COORDINATOR - FOOD TECHNOLOGY TEACHER Work Phone: Start: 05-09-2022 Thyrotropin [Units/volume] in Serum or Plasma Dee Pitts CUSTOMER ACCOUNT COORDINATOR - FOOD TECHNOLOGY TEACHER Work Phone: Start: 10-23-2021 Lipid 1996 panel - Serum or Plasma Catherine Lr MD Work Phone: Start: 04-19-2020 Radex spine cervical 4 or 5 views Leodan Lr Work Phone: Start: 09-15-2019 Blood count complete automated Asha Nobles Work Phone: Start: 09-15-2019 Comprehensive metabolic panel Asha hart Work Phone: Plan of Treatment Date Care Activity Detail Author Start: 09-21-2026 DTaP/Tdap/Td vaccine (2 - Td or Tdap) DTaP/Tdap/Td vaccine (2 - Td or Tdap) [facility] Start: 09-21-2026 DTaP/Tdap/Td vaccine (2 - Td) DTaP/Tdap/Td vaccine (2 - Td) [place] Start: 09-21-2026 DTaP/Tdap/Td Vaccines (2 - Td or Tdap) DTaP/Tdap/Td Vaccines (2 - Td or Tdap) [facility] Start: 09-14-2025 Depression Screening Depression Screening [facility] Start: 08-05-2025 Hemoglobin A1c measurement Diabetes: Hemoglobin A1C [facility] Start: 08-04-2025 Diabetes: Urine Albumin-Creatinine Ratio for Kidney Health Diabetes: Urine Albumin-Creatinine Ratio for Kidney Health [facility] Start: 08-04-2025 Lipid panel Lipid Panel [facility] Start: 04-07-2025 End: 04-07-2025 Patient encounter procedure 04/07/2025 9:00 AM EST Office Visit [facility] [address] [place] [address] Tod Lr MD [address] [place] [address] [place] [address] [facility] Start: 02-16-2025 Diabetes: Estimated Glomerular Filtration Rate for Kidney Health Diabetes: Estimated Glomerular Filtration Rate for Kidney Health [facility] Start: 12-28-2024 Influenza vaccination Influenza Vaccine (Season Ended) [facility] Start: 12-16-2024 End: 12-16-2024 Patient encounter procedure 12/16/2024 11:30 AM EDT Office Visit [facility] [address] [place] [id number] Albina Servin, CUSTOMER ACCOUNT COORDINATOR - FOOD TECHNOLOGY TEACHER [address] [place] [address] [facility] Start: 10-24-2024 Admission procedure [facility] Start: 10-24-2024 Hospital admission, emergency, from emergency room, medical nature [facility] Start: 10-24-2024 End: 10-24-2024 [facility] Start: 09-30-2024 Hemoglobin A1c measurement Diabetes: Hemoglobin A1C [facility] Start: 08-28-2024 [facility] Start: 08-26-2024 Patient discharge [facility] Start: 08-26-2024 Care regimes management [facility] Start: 08-26-2024 Notification of physician [facility] Start: 08-26-2024 [facility] Start: 08-25-2024 Referral to general surgeon [facility] Start: 08-25-2024 Referral to service [facility] Start: 08-24-2024 End: 08-24-2024 Administration of blood product [facility] Start: 08-24-2024 Care of hemodialysis equipment [facility] Start: 08-24-2024 Hemodialysis care [facility] Start: 08-24-2024 [facility] Start: 08-21-2024 End: 08-22-2024 [facility] Start: 08-21-2024 Hemodialysis care [facility] Start: 08-21-2024 Administration of blood product [facility] Start: 08-21-2024 Care planning and problem solving actions [facility] Start: 08-17-2024 Continuous renal replacement therapy [facility] Start: 08-17-2024 [facility] Start: 08-17-2024 End: 08-17-2024 [facility] Start: 08-15-2024 [facility] Start: 08-15-2024 Hemodialysis care [facility] Start: 08-15-2024 [facility] Start: 08-14-2024 Application of intermittent pneumatic compression device [facility] Start: 08-14-2024 Referral to occupational therapist [facility] Start: 08-14-2024 Referral to service [facility] Start: 08-12-2024 Referral to flatwork presser [facility] Start: 08-10-2024 Cardiac monitoring [facility] Start: 08-10-2024 Catheterization of vein [facility] Start: 08-10-2024 Consultation [facility] Start: 08-10-2024 Continuous pulse oximetry [facility] Start: 08-10-2024 End: 08-10-2024 Following clinical pathway protocol [facility] Start: 08-10-2024 Gas panel - Arterial blood [facility] Start: 08-10-2024 Lab findings surveillance [facility] Start: 08-10-2024 Notification of physician [facility] Start: 08-10-2024 Patient education [facility] Start: 08-10-2024 Vital signs measurements [facility] Start: 08-10-2024 [facility] Start: 08-10-2024 Referral to gastroenterology service [facility] Start: 08-10-2024 [facility] Start: 08-10-2024 Thyroid stimulating hormone measurement [facility] Start: 08-10-2024 Admission procedure [facility] Start: 08-10-2024 CT Chest and Abdomen and Pelvis WO and W contrast IV [facility] Start: 08-10-2024 CT of thorax, abdomen and pelvis with contrast CTA Chst, Abd, Pel W and/or WO [facility] Start: 08-10-2024 Airway suction technique [facility] Start: 08-10-2024 [facility] Start: 08-10-2024 Microscopic observation [Identifier] in Unspecified specimen by Gram stain [facility] Start: 08-10-2024 Respiratory Culture Respiratory Culture [facility] Start: 08-10-2024 Patient referral [facility]itian [facility] Start: 08-10-2024 [facility] Start: 08-05-2024 End: 08-05-2024 Patient encounter procedure 08/05/2024 11:30 AM EDT Office Visit [facility] [address] [place] [address] Albina Servin, CUSTOMER ACCOUNT COORDINATOR - FOOD TECHNOLOGY TEACHER [address] [place] [address] [facility] Start: 07-30-2024 End: 07-30-2025 Lipid 1996 panel - Serum or Plasma Lipid panel Lab Routine Mixed hyperlipidemia Expected: 07/30/2024 (Approximate), Expires: 07/30/2025 [facility] Work Phone: Comment on above: Expected: 07/30/2024 (Approximate), Expi res: 07/30/2025 Start: 07-30-2024 End: 07-30-2025 Microalbumin/Creatinine panel in random Urine Microalbumin / creatinine urine ratio Lab Routine Type 1 diabetes mellitus with hyperglycemia (HCC) Expected: 07/30/2024 (Approximate), Expires: 07/30/2025 [facility] Comment on above: Expected: 07/30/2024 (Approximate), Expi res: 07/30/2025 Start: 05-27-2024 Diabetes: Estimated Glomerular Filtration Rate for Kidney [facility] Diabetes: Estimated Glomerular Filtration Rate for Kidney Health [facility] Start: 05-27-2024 Hemoglobin A1c measurement Diabetes: Hemoglobin A1C [facility] Start: 05-27-2024 Lipid panel Lipid Panel [facility] Start: 05-27-2024 Thyroid stimulating hormone measurement TSH Level [facility] Start: 04-29-2024 Medicare Advantage Annual Wellness Visit Medicare Advantage Annual Wellness Visit [facility] Start: 02-16-2024 Diabetes: Urine Albumin-Creatinine Ratio for Kidney Health Diabetes: Urine Albumin-Creatinine Ratio for Kidney Health [facility] Start: 02-16-2024 Thyroid stimulating hormone measurement TSH Level [facility] Start: 02-10-2024 End: 02-10-2024 Patient encounter procedure 02/10/2024 11:20 AM EDT Office Visit [facility] Endocrinology [address] [place] [phone] Florentino Flowers MD [address] [place] [address] [facility] Start: 12-29-2023 COVID-19 Vaccine ( season) COVID-19 Vaccine () [facility] Start: 12-29-2023 Influenza vaccination [facility] Start: 11-14-2023 Diabetic foot examination Diabetes: Foot Exam [facility] Start: 11-14-2023 Hemoglobin A1c measurement Diabetes: Hemoglobin A1C [facility] Start: 10-01-2023 End: 09-30-2024 Thyrotropin [Units/volume] in Serum or Plasma TSH Lab Routine Acquired hypothyroidism Expected: 10/01/2023 (Approximate), Expires: 09/30/2024 [facility] Comment on above: Expected: 10/01/2023 (Approximate), Expi res: 09/30/2024 Start: 10-01-2023 End: 09-30-2024 Thyroxine (T4) free [Mass/volume] in Serum or Plasma T4, free Lab Routine Acquired hypothyroidism Expected: 10/01/2023 (Approximate), Expires: 09/30/2024 [facility] Work Phone: Comment on above: Expected: 10/01/2023 (Approximate), Expi res: 09/30/2024 Start: 10-01-2023 End: 10-01-2023 Patient encounter procedure 10/01/2023 9:30 AM EDT Office Visit [facility] Endocrinology [address] [facility] [place] [address] Dee Pitts, CUSTOMER ACCOUNT COORDINATOR - FOOD TECHNOLOGY TEACHER [address] [place] [address] [facility] Start: 05-28-2023 End: 05-28-2024 Thyrotropin [Units/volume] in Serum or Plasma TSH Lab Routine Primary hypothyroidism Expected: 05/28/2023 (Approximate), Expires: 05/28/[address] [facility] [employer] Work Phone: Comment on above: Expected: 05/28/2023 (Approximate), Expi res: 05/28/2024 Start: 05-28-2023 End: 05-28-2024 Thyroxine (T4) free [Mass/volume] in Serum or Plasma T4, free Lab Routine Primary hypothyroidism Expected: 05/28/2023 (Approximate), Expires: 05/28/[address] [facility] [employer] Comment on above: Expected: 05/28/2023 (Approximate), Expi res: 05/28/2024 Start: 05-27-2023 End: 05-27-2024 Comprehensive metabolic 1998 panel - Serum or Plasma Comprehensive metabolic panel Lab Routine Type 1 diabetes mellitus with hyperglycemia (HCC) Expected: 05/27/2023 (Approximate), Expires: 05/27/2024 [facility] Work Phone: Comment on above: Expected: 05/27/2023 (Approximate), Expi res: 05/27/2024 Start: 05-27-2023 End: 05-27-2024 Lipid 1996 panel - Serum or Plasma Lipid panel Lab Routine Mixed hyperlipidemia Expected: 05/27/2023 (Approximate), Expires: 05/27/[address] [facility] [employer] Comment on above: Expected: 05/27/2023 (Approximate), Expi res: 05/27/2024 Start: 05-27-2023 End: 05-27-2024 Thyrotropin [Units/volume] in Serum or Plasma TSH Lab Routine Primary hypothyroidism Expected: 05/27/2023 (Approximate), Expires: 05/27/2024 [facility] Comment on above: Expected: 05/27/2023 (Approximate), Expi res: 05/27/2024 Start: 05-27-2023 End: 05-27-2024 Thyroxine (T4) free [Mass/volume] in Serum or Plasma T4, free Lab Routine Primary hypothyroidism Expected: 05/27/2023 (Approximate), Expires: 05/27/2024 [facility] Comment on above: Expected: 05/27/2023 (Approximate), Expi res: 05/27/2024 Start: 05-27-2023 End: 05-27-2023 Patient encounter procedure 05/27/2023 9:20 AM EST Office Visit [facility] Endocrinology [address] [place] [id number] Rosa Partida MD [address] [place] [address] [facility] Start: 05-09-2023 COVID-19 Vaccine (4 - Booster for Pfizer series) COVID-19 Vaccine (4 - Booster for Pfizer series) [facility] Comment on above: Postponed from 07/16/2021 (Patient Refus ed) Start: 05-09-2023 COVID-19 Vaccine (4 - Pfizer series) COVID-19 Vaccine (4 - Pfizer series) [facility] Comment on above: Postponed from 07/16/2021 (Patient Refus ed) Start: 05-09-2023 Lipid panel Lipid Panel [facility] Start: 05-09-2023 Preventive dental service Diabetes: Dental Exam [facility] Comment on above: Postponed from 1966 (Patient Refus ed) Start: 05-09-2023 Thyroid stimulating hormone measurement TSH Level [facility] Start: 04-29-2023 Medicare Advantage Annual Wellness Visit Medicare Advantage Annual Wellness Visit [facility] Start: 03-28-2023 End: 03-28-2023 Patient encounter procedure 03/28/2023 2:00 PM EST Office Visit [facility] Ophthalmology [address] [place] [phone] Giana Trejo MD [address] [place] [address] [address] [place] [address] [facility] Start: 02-18-2023 End: 02-18-2023 Patient encounter procedure 02/18/2023 9:00 AM EDT Office Visit [facility] Endocrinology [address] [place] [address] Dee Pitts, CUSTOMER ACCOUNT COORDINATOR - FOOD TECHNOLOGY TEACHER [address] [place] [address] [facility] Start: 12-28-2022 COVID-19 Vaccine () COVID-19 Vaccine () [facility] Start: 12-28-2022 Influenza vaccination Influenza Vaccine (#1) [facility] Start: 12-06-2022 Screening for malignant neoplasm of lung Lung Cancer Screening [facility] Start: 2022 Screening for malignant neoplasm of lung Low dose CT lung screening [facility] Start: 11-13-2022 Hemoglobin A1c measurement Diabetes: Hemoglobin A1C [facility] Start: 11-13-2022 End: 11-14-2023 Microalbumin/Creatinine panel in random Urine Microalbumin / creatinine urine ratio Lab Routine Type 1 diabetes mellitus with hyperglycemia (HCC) Expected: 11/13/2022 (Approximate), Expires: 11/14/2023 [facility] Work Phone: Comment on above: Expected: 11/13/2022 (Approximate), Expi res: 11/14/2023 Start: 11-13-2022 End: 11-14-2023 Thyrotropin [Units/volume] in Serum or Plasma TSH Lab Routine Acquired hypothyroidism Expected: 11/13/2022 (Approximate), Expires: 11/14/2023 [facility] Comment on above: Expected: 11/13/2022 (Approximate), Expi res: 11/14/2023 Start: 11-13-2022 End: 11-14-2023 Thyroxine (T4) free [Mass/volume] in Serum or Plasma T4, free Lab Routine Acquired hypothyroidism Expected: 11/13/2022 (Approximate), Expires: 11/14/2023 [facility] Comment on above: Expected: 11/13/2022 (Approximate), Expi res: 11/14/2023 Start: 11-13-2022 End: 11-13-2022 Patient encounter procedure 11/13/2022 Office Visit Endocrinology Dee Pitts, CUSTOMER ACCOUNT COORDINATOR - FOOD TECHNOLOGY TEACHER [address] [place] [address] [facility] Start: 10-25-2022 End: 10-25-2022 Patient encounter procedure 10/25/2022 Office Visit Family Medicine Tod Lr MD [address] [place], [place] [id number] [facility] Start: 10-23-2022 Depression Screen Depression Screen [...] 09/28/2022 Office Visit Gastroenterology Vivian Duval MD [address] [place] [address] [address] [place] [address] [facility] Start: 09-10-2022 End: 09-10-2022 Admission to same day surgery center 09/10/2022 Surgery Gastroenterology Vivian Duval MD [address] [place] [address] ERCP/EGD [96933 (CPT )] [facility] Endoscopy Comment on above: ERCP/EGD [97097 (CPT )] Start: 09-10-2022 End: 09-10-2022 Ercp stent placement biliary/pancreatic duct ERCP Abnormal CT of the abdomen 09/10/2022 12:00 PM EDT [facility] Gastroenterology Start: 09-10-2022 End: 09-10-2022 Esophagogastroduodenoscopy us scope w/adj strxrs EGD WITH ENDOSCOPIC ULTRASOUND EXAM Abnormal CT of the abdomen 09/10/2022 12:00 PM EDT [facility] Gastroenterology Start: 09-10-2022 Subsequent hospital visit by physician 09/10/2022 Hospital Encounter Gastroenterology Vivian Duval MD [address] [place] [address] [facility] Endoscopy Start: 08-07-2022 Hemoglobin A1c measurement Diabetes: Hemoglobin A1C [facility] Start: 07-31-2022 End: 07-31-2022 Patient encounter procedure 07/31/2022 Office Visit Endocrinology Rosa Partida MD [address] [facility] [address] [address] [place], [place] [id number] [facility] Start: 07-11-2022 End: 07-11-2022 Patient encounter procedure 07/11/2022 Office Visit Ophthalmology Dee Hartman MD [address] [place] [address] [facility] Ophthal[facility] Start: 05-10-2022 End: 05-10-2023 Thyrotropin [Units/volume] in Serum or Plasma TSH Lab Routine Acquired hypothyroidism Expected: 05/10/2022 (Approximate), Expires: 05/10/2023 [facility] Comment on above: Expected: 05/10/2022 (Approximate), Expi res: 05/10/2023 Start: 05-10-2022 End: 05-10-2023 Thyroxine (T4) free [Mass/volume] in Serum or Plasma T4, free Lab Routine Acquired hypothyroidism Expected: 05/10/2022 (Approximate), Expires: 05/10/2023 [facility] Work Phone: Comment on above: Expected: 05/10/2022 (Approximate), Expi res: 05/10/2023 Start: 05-10-2022 End: 05-10-2022 Patient encounter procedure 05/10/2022 Office Visit Endocrinology Dee Pitts, CUSTOMER ACCOUNT COORDINATOR - [facility] [address] [place] [address] [facility] Start: 05-09-2022 End: 05-09-2023 Comprehensive metabolic 1998 panel - Serum or Plasma Comprehensive metabolic panel Lab Routine Type 1 diabetes mellitus with hyperglycemia (HCC) Expected: 05/09/2022 (Approximate), Expires: 05/09/2023 [facility] Comment on above: Expected: 05/09/2022 (Approximate), Expi res: 05/09/2023 Start: 05-09-2022 End: 05-09-2023 Hemoglobin A1c/Hemoglobin.total in Blood Hemoglobin A1c Lab Routine Type 1 diabetes mellitus with hyperglycemia (HCC) Expected: 05/09/2022 (Approximate), Expires: 05/09/[address] [facility] [employer] [facility] Work Phone: Comment on above: Expected: 05/09/2022 (Approximate), Expi res: 05/09/2023 Start: 05-09-2022 End: 05-09-2023 Lipid 1996 panel - Serum or Plasma Lipid panel Lab Routine Mixed hyperlipidemia Expected: 05/09/2022 (Approximate), Expires: 05/09/[address] [facility] [employer] Comment on above: Expected: 05/09/2022 (Approximate), Expi res: 05/09/2023 Start: 05-09-2022 End: 05-09-2023 Thyrotropin [Units/volume] in Serum or Plasma TSH Lab Routine Primary hypothyroidism Expected: 05/09/2022 (Approximate), Expires: 05/09/2023 [facility] Comment on above: Expected: 05/09/2022 (Approximate), Expi res: 05/09/2023 Start: 04-24-2022 Hemoglobin A1c measurement Diabetes: Hemoglobin A1C [facility] Start: 04-03-2022 End: 04-03-2022 Patient encounter procedure 04/03/2022 Office Visit Family Medicine Tod Lr MD [address] [place] [address] [facility] Start: 02-01-2022 End: 02-01-2022 Patient encounter procedure 02/01/2022 Appointment IP Unit Holden Castillo MD [address] [place] [address] [address] [place] [address] [facility] Start: 12-28-2021 Influenza vaccination [facility] Start: 2021 Abdominal aortic aneurysm screening AAA screen [facility] Start: 09-18-2021 COVID-19 Vaccine (4 - Booster for Pfizer series) COVID-19 Vaccine (4 - Booster for Pfizer series) [facility] Start: 11-18-2020 Diabetic foot examination Diabetic foot exam [place], [place] Start: 11-18-2020 HbA1c (Bld) [Mass fraction] A1C test (Diabetic or Prediabetic) [place] Start: 12-29-2019 Influenza vaccination Flu vaccine (Season Ended) [place] Start: 03-26-2019 HbA1c (Bld) [Mass fraction] A1C test (Diabetic or Prediabetic) [place] Start: 08-05-2018 Diabetic foot examination Diabetic foot exam [place] Start: 06-07-2018 Diabetic microalbuminuria test Diabetic microalbuminuria test [place] Start: 06-07-2018 Lipid panel Lipid screen [place] Start: 06-07-2018 TSH Qn TSH testing [place] Start: 03-15-2018 Diabetic retinal exam Diabetic retinal exam [facility] Start: 09-21-2017 Pneumococcal Vaccine: 65+ Years (2 - PCV) Pneumococcal Vaccine: 65+ Years (2 - PCV) [facility] Start: 2016 Hepatitis B Vaccines (1 of 3 - Risk 3-dose series) Hepatitis B Vaccines (1 of 3 - Risk 3-dose series) [facility] Start: 2016 RSV Immunization aged 60 or older (1 - 1-dose 60+ series) RSV Immunization aged 60 or older (1 - 1-dose 60+ series) [facility] Start: 2016 RSV Immunization aged 60 or older (1 - Risk 60-74 years 1-dose series) RSV Immunization aged 60 or older (1 - Risk 60-74 years 1-dose series) [facility] Start: 2016 RSV Immunization for Adults (1 - Risk 60-74 years 1-dose series) RSV Immunization for Adults (1 - Risk 60-74 years 1-dose series) [facility] Start: 2006 Screening for malignant neoplasm of colon Colon cancer screen colonoscopy [place], [place] Start: 2006 Screening for malignant neoplasm of lung Low dose CT lung screening [facility] Start: 2006 Shingles Vaccine (1 of 2) Shingles Vaccine (1 of 2) [facility] Start: 2006 Zoster Vaccines (1 of 2) Zoster Vaccines (1 of 2) [facility] Start: 2001 Screening for malignant neoplasm of colon [facility] Start: 12-06-1975 Hepatitis A Vaccines (1 of 2 - Risk 2-dose series) Hepatitis A Vaccines (1 of 2 - Risk 2-dose series) [facility] Start: 1968 Depression Screening Depression Screening [facility] Start: 1966 Glaucoma screening Diabetes: Retinopathy Screening [facility] Start: 1966 Preventive dental service Diabetes: Dental Exam [facility] Start: 1957 Hepatitis A Vaccines (1 of 2 - Risk 2-dose series) Hepatitis A Vaccines (1 of 2 - Risk 2-dose series) [facility] Start: 1956 Annual wellness visit Medicare Initial Physical (IPPE) [facility] Start: 1956 Cyanocobalamin vitamin b-12 Vitamin B-12 [facility] Start: 1956 Diabetes: Celiac Disease Screening Diabetes: Celiac Disease Screening [facility] Start: 1956 Hepatitis B Vaccines (1 of 3 - 3-dose series) Hepatitis B Vaccines (1 of 3 - 3-dose series) [facility] Start: 1956 Medicare Advantage Annual Wellness Visit (AWV) Medicare Advantage Annual Wellness Visit (AWV) [facility] Start: 1956 Screening for malignant neoplasm of colon [facility] Start: 1956 Thyroid stimulating hormone measurement TSH Level [facility] Alanine aminotransfe rase [Enzymatic activity/volume] in Serum or Plasma [facility] Albumin [Mass/volume ] in Serum or Plasma [facility] Alkaline phosphatase [Enzymatic activity/volume] in Serum or Plasma [facility] Amphetamines [Presen ce] in Urine by Screen method >1000 ng/mL [facility] Anion gap in Serum or Plasma [facility] Anion gap in Serum or Plasma [facility] Anion gap in Serum or Plasma [facility] Anion gap in Serum or Plasma [facility] Anion gap in Serum or Plasma [facility] Anion gap in Serum or Plasma [facility] Anion gap in Serum or Plasma [facility] Anion gap in Serum or Plasma [facility] Bacteria identified in Blood [facility] Work Phone: Bacteria identified in Sputum by Respiratory culture [facility] Benzodiazepine measu rement, urine [facility] Beta hydroxybutyrate [Mass/volume] in Serum or Plasma [facility] Bilirubin, total measurement [facility] BUN/Creatinine ratio [facility] BUN/Creatinine ratio [facility] BUN/Creatinine ratio [facility] BUN/Creatinine ratio [facility] BUN/Creatinine ratio [facility] BUN/Creatinine ratio [facility] BUN/Creatinine ratio [facility] BUN/Creatinine ratio [facility] Calcium [Mass/volume ] in Serum or Plasma [facility] Calcium [Mass/volume ] in Serum or Plasma [facility] Calcium [Mass/volume ] in Serum or Plasma [facility] Calcium [Mass/volume ] in Serum or Plasma [facility] Calcium [Mass/volume ] in Serum or Plasma [facility] Calcium [Mass/volume ] in Serum or Plasma [facility] Calcium [Mass/volume ] in Serum or Plasma [facility] Calcium [Mass/volume ] in Serum or Plasma [facility] Carbon dioxide, tota l [Moles/volume] in Central venous blood [facility] Carbon dioxide, tota l [Moles/volume] in Central venous blood [facility] Carbon dioxide, tota l [Moles/volume] in Central venous blood [facility] Carbon dioxide, tota l [Moles/volume] in Central venous blood [facility] Carbon dioxide, tota l [Moles/volume] in Central venous blood [facility] Carbon dioxide, tota l [Moles/volume] in Central venous blood [facility] Carbon dioxide, tota l [Moles/volume] in Central venous blood [facility] Carbon dioxide, tota l [Moles/volume] in Central venous blood [facility] End: 01-10-2022 CBC W Auto Differential panel - Blood CBC with Auto Differential Lab STAT One Time for 1 Occurrences starting 01/10/2022 until 01/10/2022 [employer] Work Phone: Comment on above: One Time for 1 Occurrences starting 12/28 until 01/10/2022 Cobalamin (Vitamin B 12) [Mass/volume] in Serum or Plasma [facility] Cocaine measurement, urine [facility] End: 01-10-2022 Comprehensive metabolic 2000 panel - Serum or Plasma Comprehensive Metabolic Panel Lab STAT One Time for 1 Occurrences starting 01/10/2022 until 01/10/2022 [employer] Work Phone: Comment on above: One Time for 1 Occurrences starting 12/28 until 01/10/2022 End: 01-10-2022 COVID-19, Antigen COVID-19, Antigen Point of Care Testing Routine One Time for 1 Occurrences starting 01/10/2022 until 01/10/2022 [employer] Work Phone: Comment on above: One Time for 1 Occurrences starting 12/28 until 01/10/2022 Creatine kinase [Enz ymatic activity/volume] in Serum or Plasma [facility] Creatinine [Mass/vol ume] in Serum or Plasma [facility] Creatinine [Mass/vol ume] in Serum or Plasma [facility] Creatinine [Mass/vol ume] in Serum or Plasma [facility] Creatinine [Mass/vol ume] in Serum or Plasma [facility] Creatinine [Mass/vol ume] in Serum or Plasma [facility] Creatinine [Mass/vol ume] in Serum or Plasma [facility] Creatinine [Mass/vol ume] in Serum or Plasma [facility] Creatinine [Mass/vol ume] in Serum or Plasma [facility] End: 2021 CT LUNG SCREENING (ANNUAL) [facility] Work Phone: Comment on above: Once for 1 Occurrences starting 12/06/19 until 2021 End: 01-10-2022 Ethanol [Mass/volume] in Serum or Plasma Ethanol Lab STAT One Time for 1 Occurrences starting 01/10/2022 until 01/10/2022 [facility] Work Phone: Comment on above: One Time for 1 Occurrences starting 12/28 until 01/10/2022 Ethanol [Mass/volume ] in Serum or Plasma [facility] fentaNYL [Presence] in Urine by Screen method [facility] End: 01-10-2022 FENTANYL, URINE FENTANYL, URINE Lab Routine One Time for 1 Occurrences starting 01/10/2022 until 01/10/2022 [facility] Work Phone: Comment on above: One Time for 1 Occurrences starting 12/28 until 01/10/2022 Folate [Moles/volume ] in Serum or Plasma [facility] Glucose [Mass/volume ] in Serum or Plasma [facility] Glucose [Mass/volume ] in Serum or Plasma [facility] Glucose [Mass/volume ] in Serum or Plasma [facility] Glucose [Mass/volume ] in Serum or Plasma [facility] Glucose [Mass/volume ] in Serum or Plasma [facility] Glucose [Mass/volume ] in Serum or Plasma [facility] Glucose [Mass/volume ] in Serum or Plasma [facility] Glucose [Mass/volume ] in Serum or Plasma [facility] Hemoglobin A1c/Hemog lobin.total in Blood [facility] End: 09-15-2019 Hepatitis Panel, Acute Hepatitis Panel, Acute Lab Routine Once for 1 Occurrences starting 09/15/2019 until 09/15/2019 [place] Comment on above: Once for 1 Occurrences starting 09/15/19 until 09/15/2019 Hepatitis Panel, Acute Hepatitis Panel, Acute Lab Routine 09/15/2019 1:58 PM EDT [facility] [place] End: 09-15-2019 HIV Screen HIV Screen Lab Routine Once for 1 Occurrences starting 09/15/2019 until 09/15/2019 [place] Comment on above: Once for 1 Occurrences starting 09/15/19 until 09/15/2019 HIV Screen HIV Screen Lab Routine 09/15/2019 1:58 PM EDT [place] Lactic acid measurement [facility] Magnesium measurement [facility] Measurement of renal function [facility] Measurement of renal function [facility] Measurement of renal function [facility] Measurement of renal function [facility] Measurement of renal function [facility] Measurement of renal function [facility] Measurement of renal function [facility] Measurement of renal function [facility] Methadone measurement, urine [facility] Patient Education [facility] Work Phone: Patient referral [facility] Work Phone: Phencyclidine [Prese nce] in Urine [facility] Potassium measurement [facility] Potassium measurement [facility] Potassium measurement [facility] Potassium measurement [facility] Potassium measurement [facility] Potassium measurement [facility] Potassium measurement [facility] Potassium measurement [facility] End: 09-15-2019 RPR with FTA Relex RPR with FTA Relex Lab Routine Once for 1 Occurrences starting 09/15/2019 until 09/15/2019 [place] Comment on above: Once for 1 Occurrences starting 09/15/19 until 09/15/2019 RPR with FTA Relex RPR with FTA Relex Lab Routine 09/15/2019 1:58 PM EDT [place] Serum chloride measurement [facility] Serum chloride measurement [facility] Serum chloride measurement [facility] Serum chloride measurement [facility] Serum chloride measurement [facility] Serum chloride measurement [facility] Serum chloride measurement [facility] Serum chloride measurement [facility] Sodium measurement [facility] Sodium measurement [facility] Sodium measurement [facility] Sodium measurement [facility] Sodium measurement [facility] Sodium measurement [facility] Sodium measurement [facility] Sodium measurement [facility] Tissue exam [facility] [employer] Work Phone: Comment on above: Release Upon Ordering for 1 Occurrences starting 08/16/2022, 1 completed Total protein measurement [facility] Troponin T.cardiac [Mass/volume] in Serum or Plasma by High sensitivity method [facility] Troponin T.cardiac [Mass/volume] in Serum or Plasma by High sensitivity method [facility] Urea nitrogen [Mass/ volume] in Serum or Plasma [facility] Urea nitrogen [Mass/ volume] in Serum or Plasma [facility] Urea nitrogen [Mass/ volume] in Serum or Plasma [facility] Urea nitrogen [Mass/ volume] in Serum or Plasma [facility] Urea nitrogen [Mass/ volume] in Serum or Plasma [facility] Urea nitrogen [Mass/ volume] in Serum or Plasma [facility] Urea nitrogen [Mass/ volume] in Serum or Plasma [facility] Urea nitrogen [Mass/ volume] in Serum or Plasma [facility] Urine cannabinoid measurement [facility] Urine culture [facility] End: 01-10-2022 Urine Drug Screen Urine Drug Screen Lab STAT One Time for 1 Occurrences starting 01/10/2022 until 01/10/2022 [facility] Work Phone: Comment on above: One Time for 1 Occurrences starting 12/28 until 01/10/2022 Urine opiate measurement [facility] Immunizations Immunization Date Immunization Notes Care Provider Fa [facility] 09-01-2024 Pneumococcal Conjuga te PCV20, Pf (Prevnar 20) Tod Lr MD Work Phone: [facility] 02-16-2024 influenza vaccine A& B surf ant adjuvanted (Fluad) HIGH-DOSE injection 0.5 mL Kuldeep Rios MD Work Phone: [facility] 05-09-2022 influenza, high dose seasonal, preservative-free Dee Hartman MD Work Phone: [facility] 05-09-2022 influenza virus vacc ine, unspecified formulation 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 10-23-2021 zoster recombinant adjuvanted vaccine (SHINGRIX) 50 MCG/0.5ML SUSR injection Tod Lr MD Work Phone: [facility] Work Phone: 05-21-2021 Pfizer SARS-CoV-2 Vaccination Dee Hartman MD Work Phone: [facility] 07-26-2020 COVID-19, PFIZER PUR PLE top, DILUTE for use, (age 12 y+), 30mcg/0.3mL Tod Lr MD Work Phone: [facility] Work Phone: 07-05-2020 COVID-19, PFIZER PUR PLE top, DILUTE for use, (age 12 y+), 30mcg/0.3mL Tod Lr MD Work Phone: [facility] Work Phone: 04-15-2020 influenza, injectabl e, quadrivalent, preservative free [facility] [place] 01-20-2019 influenza, injectabl e, quadrivalent, preservative free [facility] 02-27-2017 influenza, injectabl e, quadrivalent, contains preservative [facility] 09-21-2016 pneumococcal polysaccharide vaccine, 23 valent [facility] [place] 09-21-2016 tetanus toxoid, redu renetta diphtheria toxoid, and acellular pertussis vaccine, adsorbed [facility] 01-06-2016 influenza, injectabl e, quadrivalent, preservative free [facility] Payers Date Payer Category Payer Self-pay 2022 Medicare [employer] UHC DUAL COMPLETE [id number] 2022-Present [address] [place] [address] Medicare HMO [id number] 2022 Medicare HMO UHC DUAL COMPLET E [id number] 2021 Private Health Insurance [id number] 2021 Private Health Insurance 2020 Medicaid 2018 Medicaid [facility] MEDICAID [facility] MEDICAID xxxxxxxxxxxx 2018-Present [phone] [address] [address] [place] [address] xxxxxxxxxxxx [id number] 2018 Medicaid [id number] .[id number] 2016 Unknown [id number] 1956 Unknown [id number] 2.840.1.225014.3.579.2 .668 1956 Unknown [id number] 2.16840.1.703244.3.579.2 .668 1956 Unknown [id number] 2.16840.1.831725.3.579.2 .668 1956 Unknown [id number] 2.16840.1.391993.3.579.2 .668 Unknown [id number] 2.16840.1.515352.3.579.2 .462 Unknown [id number] 2.16.840.1.606220.3.579.2 .462 Unknown [id number] 2.16.840.1.236712.3.579.2 .462 Unknown [id number] 2.16.840.1.920487.3.579.2 .462 Unknown [id number] 2.16.840.1.043445.3.579.2 .462 Unknown [id number] 2.16.840.1.652964.3.579.2 .462 Unknown [id number] 2.16.840.1.940415.3.579.2 .462 Unknown [id number] 2.16.840.1.253289.3.579.2 .462 Unknown [id number] 2.16.840.1.857226.3.579.2 .462 Unknown [id number] 2.16.840.1.391347.3.579.2 .462 Unknown [id number] 2.16.840.1.640511.3.579.2 .462 Unknown [id number] 2.16.840.1.417949.3.579.2 .462 Unknown [id number] 2.16.840.1.604898.3.579.2 .462 Unknown [id number] 2.16.840.1.294985.3.579.2 .462 Unknown [id number] 2.16.840.1.932061.3.579.2 .462 Unknown [id number] 2.16.840.1.901157.3.579.2 .462 Unknown [id number] 2.16.840.1.297940.3.579.2 .462 Unknown [id number] 2.16.840.1.644019.3.579.2 .462 Unknown [id number] 2.16.840.1.415581.3.579.2 .462 Unknown [id number] 2.16.840.1.518728.3.579.2 .462 Unknown [id number] 2.16.840.1.455882.3.579.2 .462 Unknown [id number] 2.16.840.1.960228.3.579.2 .462 Unknown [id number] 2.16.840.1.840828.3.579.2 .462 Unknown [id number] 2.16.840.1.025868.3.579.2 .462 Unknown [id number] 2.16.840.1.311030.3.579.2 .462 Unknown [id number] 2.16.840.1.383109.3.579.2 .462 Unknown [id number] 2.16.840.1.562149.3.579.2 .462 Unknown [id number] 2.16.840.1.217587.3.579.2 .462 Unknown [id number] 2.16.840.1.231287.3.579.2 .462 Unknown [id number] 2.16.840.1.461839.3.579.2 .462 Unknown [id number] 2.16.840.1.722099.3.579.2 .462 Unknown [id number] 2.16.840.1.005647.3.579.2 .462 Unknown [id number] 2.16.840.1.151265.3.579.2 .462 Unknown [id number] 2.16.840.1.472559.3.579.2 .462 Unknown [id number] 2.16.840.1.159424.3.579.2 .462 Unknown [id number] 2.16.840.1.518020.3.579.2 .462 Unknown [id number] 2.16.840.1.788140.3.579.2 .462 Unknown [id number] 2.16.840.1.503499.3.579.2 .462 Unknown [id number] 2.16840.1.428600.3.579.2 .462 Social History Date Type Detail Facility Start: 04-29-1998 End: 09-15-2024 Tobacco smoking status NHIS Current every day smoker [place], [place] Start: 04-29-1998 History of tobacco use Cigarette Smoker [place] Start: 09-30-2018 End: 09-14-2024 Cigarettes smoked current (pack per day) - Reported [place] Start: 09-30-2018 End: 09-15-2024 Alcohol intake Current non-drinker of alcohol (finding) [place], [place] Start: 1955 Sex Assigned At Not on file [employer] [facility] [place] [facility] Start: 04-15-2020 End: 09-15-2024 Tobacco use and exposure Never used [employer] [facility] [place]- [place] [facility] Start: 12-31-2021 End: 11-13-2022 Exposure to SARS-CoV-2 (event) Not sure [employer] [facility] [place]- [facility] Start: 10-23-2021 End: 05-09-2022 History SDOH Alcohol Frequency 1 [employer] Work Phone: Start: 05-12-2020 History SDOH Alcohol Std Drinks 99 [employer] Work Phone: Start: 10-23-2021 End: 05-09-2022 History SDOH Physical Activity DPW 2 [employer] Work Phone: Start: 10-23-2021 History SDOH Physical Activity MPS 3 [employer] Work Phone: Start: 10-19-2021 End: 05-09-2022 History SDOH Financial 5 [employer] Work Phone: Start: 11-13-2022 End: 09-14-2024 Tobacco use panel [facility] How hard is it for y ou to pay for the very basics like food, housing, medical care, and heating Not hard at all [facility] (I/We) worried judy er (my/our) food would run out before (I/we) got money to buy more. Never true [facility] Has the [employer], [employer], or [facility] threatened to shut off services in your home in past 12Mo No [employer] How often to you hav e a drink containing alcohol? Never [facility] Start: 11-27-2021 End: 08-10-2024 Sex Male (finding) [facility] Start: 08-10-2024 Tobacco smoking status NHIS Tobacco smoking consumption unknown (finding) [facility] Start: 1955 End: [birth year]29-1959 Sex Assigned At Male [facility] Do you belong to any clubs or organizations such as adventism groups, unions, fraternal or athletic groups, or school groups? Yes [facility] Are you now , , , , never or living with a partner? [facility] How hard is it for y ou to pay for the very basics like food, housing, medical care, and heating Somewhat hard [facility] Do you feel stress - tense, restless, nervous, or anxious, or unable to sleep at night because your mind is troubled all the time - these days [OSQ] Rather much [facility] (I/We) worried wheth er (my/our) food would run out before (I/we) got money to buy more. Sometimes true [facility] Start: 10-24-2024 Tobacco smoking status NHIS Ex-smoker (finding) [facility] Start: 06-16-2020 Rare [facility] Start: 06-16-2020 None [facility] Start: 06-16-2020 Alone [facility] Start: 06-16-2020 Cigarettes [facility] Medical Equipment Procedure Code Equipment Code Equipment Origin al Text Equipment Identifier Dates Insertion, catheter, hemodialysis [id number] FDA Start: 08-26-2024 ERCP (endoscopic retrograde cholangiopancreatogra phy) FDA Start: 08-14-2024 [id number] Start: 03-26-2018 End: 08-05-2024 USE TO INJECT INSULIN FOUR TIMES A DAY DIRECTED [id number] Start: 07-31-2019 1 each by In Vit ro route 5 times daily As needed. [id number] Start: 11-19-2019 1 each by Does n ot apply route 5 times daily Dx E11.9 [id number] Start: 01-08-2020 1 Device by Does not apply route 5 times daily [id number] Start: 11-19-2019 1 each by In Vit ro route 5 times daily As needed. [id number] Start: 07-18-2021 1 Device by Does not apply route 5 times daily [id number] Start: 07-18-2021 USE TO INJECT INSULIN FOUR TIMES A DAY DIRECTED [id number] Start: 07-12-2021 Comfort EZ Insul in Syringe 31G X 5/[address] [facility] [id number] Start: 03-22-2022 [id number] Start: 07-18-2021 Lancets (Safety Lancet 30G/Pressure Act) [facility] [id number] Start: 03-22-2022 OneTouch Verio test strip [id number] Start: 03-22-2022 INSERT 1 UNUSED TEST STRIP INTO METER, THEN APPLY BLOOD TO OBTAIN BLOOD GLUCOSE LEVEL FOUR TIMES DAILY [id number] Start: 08-07-2022 End: 08-05-2024 Use to inject 1- 4 times daily as directed. [id number] Start: 08-18-2022 End: 08-18-2023 USE ONE UNUSED SYRINGE TO INJECT INSULIN FIVE TIMES DAILY [id number] Start: 08-07-2022 End: 05-27-2023 USE 1 UNUSED LANCET TO DRAW BLOOD. TWIST OFF THE PROTECTIVE CAP. PUSH THE LANCET FIRMLY ONTO THE CHOSEN SITE, THEN DISPOSE FOUR TIMES DAILY [id number] Start: 08-07-2022 Inject 1 each under the skin 4 times daily (before meals and nightly). Use as instructed [id number] Start: 05-27-2023 End: 11-23-2023 Inject 1 each under the skin 4 times daily (before meals and nightly). Use as instructed [id number] Start: 10-01-2023 End: 03-29-2024 INSERT 1 UNUSED TEST STRIP INTO METER, THEN APPLY BLOOD TO OBTAIN BLOOD GLUCOSE LEVEL FOUR TIMES DAILY [id number] Start: 08-05-2024 1 each by Other route 4 times daily. [id number] Start: 08-05-2024 End: 09-15-2024 Goals Date Patient Goal Desired Activity /State Comment on above: Self- Management Lyric n: Smoking Cessation Patient Stated Goal: to quit smoking Barriers to success: lack of motivation Plan for overcoming my barriers: to set mind to it. Encouraged and recommended by provider. Self-Management Plan: Will cut back/quit smoking by 11/2016 Confidence: 01/06 Date goal set: 09/21/16 Patient given educational [...] Will cut back/quit smoking by 11/2016 Confidence: 01/06 Date goal set: 09/21/16 Patient given educational [...] was advised to call if any questions. Functional Status Date Assessment Result Facility 08-26-2024 Functional status Ambulates;Chair [facility] Work Phone: Mental Status Date Assessment Result Facility 08-26-2024 Cognitive function Voice/Name [facility] Work Phone: 08-10-2024 Cognitive function Level Of Cons ciousness Comatose [facility] Work Phone: Clinical Notes 05-09-2022 to 10-24-2024 Note Date & Type Note Facility 10-24-2024 Radiology Diagnostic study note [facility] 10-24-2024 Radiology Diagnostic study note [facility] 10-24-2024 Discharge summary Note Date/Time October 24, 2024 5:41pm [facility] Medical Records Department [address] [place] [address] Emergency Department Summary 10/24/24 MR#: [id number] Acct: [id number] Name: ABRAHAM BUSH Rep #:[id number] : 1955 68 From: Austin Hannon DO PCP: Dr. Tod Lr MD Status:REG ER Location: ED HPI History of Present Illness Chief Complaint: Nausea/Vomiting Narrative Narrative: Patient is a 68-year-old male with past medical history of diabetes, polysubstance abuse, hypothyroidism, history of GI bleed who presents to the emergency department with a chief complaint of nausea vomiting not feeling well. He states that he is been feeling sick for about 3 days now he notes that he has been taking his insulin as prescribed. Denies any sick contacts. Patient denies any black dark tarry stools denies any coffee-ground emesis. Patient does complain of some diffuse abdominal pain as well. [facility] Medical History Diabetes DKA Home Medications ?Medication ?Instructions ?Recorded ?Last Taken ?Type aspirin 325 mg tablet 325 mg PO DAILY@0800 heart h ealth 09/27/18 06/16/20 History insulin regular human 100 unit/mL 15 unit subcut TIDCM diabeties 09/27/18 06/16/20 History injection solution (Novolin R Regular U-100 Insulin) levothyroxine 88 mcg tablet 88 mcg PO DAILY thyroid 06/16/20 History multivitamin with minerals 1 tab PO DAILY supplement 0 09/27/18 06/16/20 History (Multiple Vitamin-Minerals tablet) pravastatin 80 mg tablet 80 mg PO DAILY cholesterol 0 09/27/18 06/16/20 History insulin NPH isoph U-100 human 100 15 units subcut BID diabeties 06/16/20 5 Days Ago History unit/mL subcutaneous suspension ~06/11 ondansetron HCl 8 mg tablet 8 mg PO Q8H PRN PRN nausea and 06/17/20 Unknown Rx vomiting #30 tabs buprenorphine 8 mg-naloxone 2 mg 1.5 film sublingual D AILY opoid 08/12/24 Unknown History sublingual film dependence insulin glargine 100 unit/mL (3 18 unit subcut QHS edwige betes 08/12/24 Unknown History mL) subcutaneous pen (Lantus Solostar U-100 Insulin) insulin lispro 100 unit/mL 14 unit subcut TIDCM diabet es 08/12/24 Unknown History subcutaneous pen levothyroxine 125 mcg tablet 125 mcg PO DAILY thyroid 08/12/24 Unknown History rosuvastatin 40 mg tablet 40 mg PO DAILY cholesterol 0 08/12/24 Unknown History ondansetron 4 mg disintegrating 4 mg PO Q6H PRN nausea and 08/26/24 Unknown Rx tablet vomiting #30 tabs pantoprazole 40 mg tablet,delayed 40 mg PO BID 30 days #60 tabs 08/26/24 Unknown Rx release buprenorphine 8 mg-naloxone 2 mg 1.5 ea sublingual WILY LY 08/28/24 Unknown History sublingual film pantoprazole 40 mg tablet,delayed 40 mg PO BID 5 Unknown History release Allergy/AdvReac Type Severity Reaction Status Date / Time No Known Allergies Allergy Verified 09/16/24 08:05 Social History housing: house Smoking Status: Former smoker ROS ROS ED ROS Narrative Constitutional: Denies headache, fevers, chills Eyes: Denies change in vision double vision blurry vision Cardiovascular: Denies chest pain or palpitations Respiratory: Denies coughing wheezing shortness of breath Abdomen: Complains of abdominal pain as noted above as well as nausea vomiting : Denies urinary symptoms Neurological: Denies any numbness, weakness, tingling Musculoskeletal: Denies back pain Skin: Denies any rashes or lesions EXAM Physical Exam Narrative Exam Narrative: General: Patient lying in bed rest comfortably did not appear to be acute distress Head: Atraumatic, normocephalic Eyes: PERRL bilaterally, EOMI bilateral, no conjunctival injection noted Neck: Soft, supple, trachea midline Cardiovascular: Patient tachycardic with a regular rhythm Respiratory: Clear to auscultation bilaterally Abdomen: Soft, nondistended, diffuse tenderness to palpation, no rebound or guarding on exam Extremities: +5/5 strength noted in the bilateral upper and lower extremities, radial pulses +2/4 in the bilateral extremities Neurological: Patient following commands knew that he was at [facility] year is 2024 Skin: Warm, dry, intact no rashes or lesions noted Const Vital Signs: 10/24/24 12:53 10/24/24 13:06 10/24/24 13:49 Temperature 96.6 F L Temperature Source Temporal Pulse Rate 124 H Respiratory Rate 26 H Blood Pressure 149/104 H Blood Pressure Mean 119 Pulse Ox 99 98 Oxygen Delivery Method Room Air Room Air Room Air 10/24/24 14:52 10/24/24 14:54 10/24/24 16:00 Temperature 98 F Temperature Source Pulse Rate 110 H 110 H 108 H Respiratory Rate 22 H 22 H 25 H Blood Pressure 157/101 H 157/101 H 157/73 H Blood Pressure Mean 119 119 101 Pulse Ox 95 95 98 Oxygen Delivery Method MDM MDM MDM Narrative Medical decision making narrative: Patient is a 68-year-old male who presented to the emergency department chief complaint of nausea vomiting not feeling well. On the differential diagnosis includes but not limited to diabetic ketoacidosis, HHS, cholecystitis, pancreatitis, bowel obstruction, ACS. Once workup is obtained reviewed he will be reevaluated. Patient's blood glucose per bedside glucose testing is reading high he will be given 30 cc/kg bolus of IV fluids this was ordered at 1325. Patient be given 15 units of insulin. Patient's CBC was significant for leukocytosis of 25,000, hemoglobin of 16, platelet count normal at 303. Patient's venous blood gas showed a pH 7.50 indicating alkalosis, sodium was 131 this is likely falsely low indicating pseudohyponatremia secondary to his hyperglycemia, potassium was 6.5 which was noted to be hemolyzed this will be repeated,, dioxide low at 15.8 with a anion gap of 27. Patient's creatinine was 1.40 glucose noted be 522. Patient's lactic acid elevated 2.7, troponin normal at 17, EKG reviewed and showed sinus tachycardia with PVCs noted with a rate of 114 bpm. Patient beta-hydroxybutyrate elevated at 6.6, urinalysis showed ketones positive nitrite negative leukocyte esterase no evidence of infection. Patient chest x-ray reviewed by myself by radiology showed no focal consolidations. Patient CT abdomen pelvis IV contrast showed wall thickening of the distal sigmoid colon compatiblewith colitis persistent severe circumferential wall thickening in the distal esophagus which may reflect esophagitis or esophageal neoplasm correlation with upper endoscopy if not recently performed is recommended. Unchanged subtle gastric wall thickening may represent gastritis. Patient was given 15 units of subcutaneous insulin he was placed on insulin drip. Patient's case will be discussed with hospitalist for admission. Read the operative note from 08/12/[address] Graff with for upper GI endoscopy which showed grade D erosive esophagitis with bleeding which was treated with heater probe. Nonbleeding gastric ulcers with no stigmata of bleeding. Acute duodenitis no specimens collected. Patient will be given Protonix. Discussed case with hospitalist Dr. Martin who accept patient for admission to the intensive care unit. Patient was notified is agreeable this plan. Critical care time 47 minutes Lab Data Labs: Laboratory Results - last 24 hr 10/24/24 10/24/24 10/24/24 13:02 13:29 13:46 WBC 25.2 H RBC 5.21 Hgb 16.0 Hct 46.7 MCV 89.6 MCH 30.7 MCHC 34.3 RDW Std Deviation 41.6 RDW Coeff of Vane 12.7 Plt Count 303 MPV 11.7 Immature Gran % (Auto) 0.700 Neut % (Auto) 91.3 H Lymph % (Auto) 3.1 L Tillman % (Auto) 4.6 Eos % (Auto) 0.0 Baso % (Auto) 0.3 Absolute Neuts (auto) 23.1 H Absolute Lymphs (auto) 0.78 L Nucleated RBC % 0 Platelet Estimate A PT 12.8 INR 1.0 APTT 26.8 Sodium Cancelled Potassium Cancelled Chloride Cancelled Carbon Dioxide Cancelled Anion Gap Cancelled BUN Cancelled Creatinine Cancelled Estim Creat Clear Calc Cancelled Est GFR (MDRD) Non-Af Cancelled BUN/Creatinine Ratio Cancelled Glucose Cancelled Lactic Acid Calcium Cancelled Troponin T High Sens Cancelled b-Hydroxybutyric mmol/L Urine Color Urine Clarity Urine pH Ur Specific Lowber Urine Protein Urine Glucose (UA) Urine Ketones Urine Occult Blood Urine Nitrite Urine Bilirubin Urine Urobilinogen Ur Leukocyte Esterase Urine RBC Urine WBC Ur Squamous Epith Cells Urine Bacteria Urine Mucus POC Glucose > 500 H* 10/24/24 10/24/24 10/24/24 14:12 14:21 14:53 WBC RBC Hgb Hct MCV MCH MCHC RDW Std Deviation RDW Coeff of Vane Plt Count MPV Immature Gran % (Auto) Neut % (Auto) Lymph % (Auto) Tillman % (Auto) Eos % (Auto) Baso % (Auto) Absolute Neuts (auto) Absolute Lymphs (auto) Nucleated RBC % Platelet Estimate PT INR APTT Sodium 131 L Potassium 6.5 H* Chloride 88 L Carbon Dioxide 15.8 L Anion Gap 27 H BUN 44 H Creatinine 1.40 H Estim Creat Clear Calc 52.87 Est GFR (MDRD) Non-Af 55 L BUN/Creatinine Ratio 31.4 H Glucose 522 H* Lactic Acid 2.7 H* Calcium 8.4 Troponin T High Sens 17 D b-Hydroxybutyric mmol/L 6.6 H Urine Color Yellow Urine Clarity Clear Urine pH 6.0 Ur Specific Lowber 1.030 Urine Protein 100 H Urine Glucose (UA) 1000 H Urine Ketones 150 A* Urine Occult Blood 50 H Urine Nitrite Positive H Urine Bilirubin Negative Urine Urobilinogen Normal Ur Leukocyte Esterase Negative Urine RBC 0-5 SEEN Urine WBC 0 SEEN Ur Squamous Epith Cells 0 SEEN Urine Bacteria 0 SEEN Urine Mucus 0 SEEN POC Glucose 10/24/24 15:30 WBC RBC Hgb Hct MCV MCH MCHC RDW Std Deviation RDW Coeff of Vane Plt Count MPV Immature Gran % (Auto) Neut % (Auto) Lymph % (Auto) Tillman % (Auto) Eos % (Auto) Baso % (Auto) Absolute Neuts (auto) Absolute Lymphs (auto) Nucleated RBC % Platelet Estimate PT INR APTT Sodium Potassium Chloride Carbon Dioxide Anion Gap BUN Creatinine Estim Creat Clear Calc Est GFR (MDRD) Non-Af BUN/Creatinine Ratio Glucose Lactic Acid Calcium Troponin T High Sens b-Hydroxybutyric mmol/L Urine Color Urine Clarity Urine pH Ur Specific Lowber Urine Protein Urine Glucose (UA) Urine Ketones Urine Occult Blood Urine Nitrite Urine Bilirubin Urine Urobilinogen Ur Leukocyte Esterase Urine RBC Urine WBC Ur Squamous Epith Cells Urine Bacteria Urine Mucus POC Glucose 484 H* ABG Data ABG results: ABG 10/24/24 13:48 Specimen Type AMBROSIO Sample Site Not entered VBG pH 7.50 H VBG pO2 65 H VBG HCO3 18 L VBG Total CO2 19 L VBG O2 Sat (Calc) 95 H VBG Base Excess -5 L POC Mix VBG pCO2 Pt Tmp 23.4 L O2 Delivery Device Room Air Radiography Diagnostic Testing: Clinical Impression(s) from Imaging Studies Chest X-Ray 10/24/24 13:12 IMPRESSION: No focal consolidations. Reading Location: [facility] Abdomen/Pelvis CT 10/24/24 13:35 IMPRESSION: 1. Wall thickening of the distal sigmoid colon, compatible with colitis. 2. Persistent severe circumferential wall thickening of the distal esophagus, which may reflect esophagitis or esophageal neoplasm. Correlation with upper endoscopy if not recently performed is recommended for further evaluation. 3. Unchanged subtle gastric wall thickening, which may represent gastritis. Reading Location: [facility] Discharge Plan Triage Chief Complaint: Nausea/Vomiting ED Provider: Austin Hannon Dx/Rx/DC Orders Clinical Impression: DKA (diabetic ketoacidosis), Nausea and vomiting, Abdominal pain Prescriptions: No Action aspirin 325 MG tablet 325 mg PO DAILY@0800 levothyroxine 88 MCG tablet 88 mcg PO DAILY pravastatin 80 MG tablet 80 mg PO DAILY Novolin R Regular U100 Insulin 100 UNIT/ML solution 15 unit subcut TIDCM Multiple Vitamin-Minerals 1 EACH tablet 1 tab PO DAILY insulin NPH isoph U-100 human 100 UNIT/ML suspension 15 units SC BID ondansetron HCl 8 MG tablet 8 mg PO Q8H PRN PRN (Reason: nausea and vomiting) Qty: 30 0RF insulin glargine [Lantus Solostar U-100 Insulin] 100 unit/mL (3 mL) insulin pen 18 unit subcut QHS insulin lispro 100 unit/mL insulin pen 14 unit subcut TIDCM levothyroxine 125 mcg tablet 125 mcg PO DAILY rosuvastatin 40 mg tablet 40 mg PO DAILY buprenorphine-naloxone 8-2 mg film 1.5 film sublingual DAILY pantoprazole 40 mg Tablet,Delayed Release (Dr/Ec) 40 mg PO BID 30 Days Qty: 60 0RF ondansetron 4 mg tablet,disintegrating 4 mg PO Q6H PRN (Reason: nausea and vomiting) Qty: 30 0RF pantoprazole 40 mg tablet,delayed release (DR/EC) 40 mg PO BID buprenorphine-naloxone 8-2 mg film 1.5 ea sublingual DAILY Primary Care Provider: Tod Lr Referrals: Tod Lr MD [Primary Care Provider] - Print Language: Jamaican Disposition Disposition: Acute Care Hospital [facility] What to do if you have Problems For any increased pain, shortness of breath, bleeding, nausea or vomiting, chestpain, or any unexpected problems, contact your Primary Care Provider. Call [facility] ([phone]) or report to the closest Emergency Room. Call 911 if necessary. 10/24/24 1741 <Electronically signed by Austin Hannon DO> Cosigner Signature (if applicable): CC: Dr. Tod Lr MD ~ Signed [facility] Work Phone: 1(360) 791-636105-20-2025 Evaluation + Plan note* Assessment & Plan Note - Tod Lr MD - 09/15/2024 11:06 AM EDTAssociated Problem(s): Primary hypothyroidism Controlled, continue levothyroxine 125 mcg daily [id number] Miscellaneous Notes* Assessment & Plan Note - Tod Lr MD - 09/15/2024 11:06 AM EDTAssociated Problem(s): Primary hypothyroidism Controlled, continue levothyroxine 125 mcg daily * Assessment & Plan Note - Tod Lr MD - 09/15/2024 11:05 AM EDT Associated Problem(s): Hyperlipidemia Controlled, continue rosuvastatin 40 mg daily * Assessment & Plan Note - Tod Lr MD - 09/15/2024 11:04 AM EDT Associated Problem(s): Type 1 diabetes mellitus with hyperglycemia (HCC) Control is variable, he is currently on Semglee 16 units nightly and insulin lispro 14 to 18 units with meals sliding scale. Follow-up with endocrinology as scheduled. * Assessment & Plan Note - Tod Lr MD - 09/15/2024 11:03 AM EDT Associated Problem(s): Nausea and vomiting, unspecified vomiting type Currently stable he would like a refill on his Zofran documented in this [facility]05-20-2025 Evaluation + Plan note* Assessment & Plan Note - Tod Lr MD - 09/15/2024 11:05 AM EDT Associated Problem(s): Hyperlipidemia Controlled, continue rosuvastatin 40 mg daily [id number] Evaluation + Plan note* Assessment & Plan Note - Tod Lr MD - 09/15/2024 11:04 AM EDTAssociated Problem(s): Type 1 diabetes mellitus with hyperglycemia (HCC) Control is variable, he is currently on Semglee 16 units nightly and insulin lispro 14 to 18 units with meals sliding scale. Follow-up with endocrinology as scheduled. [id number] Evaluation + Plan note* Assessment & Plan Note - Tod Lr MD - 09/15/2024 11:03 AM EDTAssociated Problem(s): Nausea and vomiting, unspecified vomiting type Currently stable he would like a refill on his Zofran [id number] History of Present illness Narrative* Janet Bullard MA - 09/15/2024 10:00 AM EDT Patient verified by last name and date of . * Tod Lr MD - 09/15/2024 10:00 AM EDT Images from the original note were not included. 09/15/2024 Abraham Bush (: 1955) is a 68 y.o. male , Established patient, here for evaluation of thefollowing chief complaint(s): Transitional Care Management Outreach and Hospital Follow-up ([facility] 08/10-08/26/24) ASSESSMENT/PLAN: 1. 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 He has no complaints today says he [...] signature was used to authenticate this note. Tod Lr MD 09/15/2024 11:07 AM documented in this [facility]05-02-2025 [facility]04-30-2025 [facility]04-30-2025 [facility]04-14-2025 Evaluation note* Diagnosis Onset Date Resolution Status Admit Date DAVEY (acute kidney injury) acute August 10, 2024 9:31pm Acute metabolic encephalopathy resol maximo August 10, 2024 9:31pm Diabetic ketoacidosis resolved Apr 2024 9:31pm Gastrointestinal bleeding, upper res olved August 10, 2024 9:31pm Hyperkalemia resolved August 10, 2024 9:31pm Hypotension resolved August 10 9:31pm Leukocytosis resolved August 10, 2024 9:31pm Sepsis resolved August 10 9:31pm Abdominal pain acute October 24, 2024 5:45pm DKA (diabetic ketoacidosis) acute October 24, 2024 5:45pm Nausea and vomiting acute October 24, 2024 5:45pm [facility] Work Phone: 1(158) 509-520404-14-2025 Radiology Diagnostic study note [facility] Imaging Services [address] [place] [id number] CXR for Line Placement MR#: [id number] Acct: [id number] Name: KWABENA BUSH Rep #: [id number] : 04/29/1959 M 65 From: Vinay Wright MD PCP: Care Physician,No Primary Status: REG ER Study:CXR for Line Placement Date of Exam: 08/10/24 Exam# [id number] Ordering Dr: Jose Alfredo Valderrama DO EXAM: [...] unchanged. No active pulmonary disease. Reading Location: [facility] CC: Dr. Jose Alfredo Valderrama DO; No Primary Care Physician ~ Ships Or Barges Loader: Signed [facility]04-14-2025 Radiology Diagnostic study note [facility] Imaging Services [address] [place] [employer], [place] [address] Chest 1 View (Portable) MR#: [id number] Acct: [id number] Name: ELEAZARKWABENA Rep #: [id number] : 08/10/1959 M 65 From: Vinay Wright MD PCP: Status: PRE ER Study:Chest 1 View (Portable) Date of Exam: 08/10/24 Exam# [id number] Ordering Dr: Jose Alfredo Valderrama DO PROCEDURE: CHEST 1 VIEW (PORTABLE) 08/10/2024 REASON FOR EXAM: ETT AND OG PLACEMENT TECHNIQUE: Frontal view of the chest. COMPARISON: Earlier today FINDINGS: Hardware: Interval placement of endotracheal tube with the tip approximately 5 cm above the naina.Nasogastric tube which is unchanged. Heart: Cardiac and mediastinal contours are stable. Lungs: The lungs are clear. Bones: The bones are unremarkable. Other: RAD/Chest 1 View (Portable) IMPRESSION: Interval placement of endotracheal tube with the tip above the naina. Nasogastric tube which is unchanged. No active pulmonary disease. Reading Location: [id number] CC: Dr. Jose Alfredo Valderrama DO ~ [employer] B[employer] Loader: Signed [facility]04-14-2025 Radiology Diagnostic study note [facility] Imaging Services [address] [place], [place] [address] Chest 1 View (Portable) MR#: [id number] Acct: [id number] Name: KWABENA BUSH Rep #: [id number] : 08/10/1959 M 65 From: Vinay Wright MD PCP: Status: PRE ER Study:Chest 1 View (Portable) Date of Exam: 08/10/24 Exam# [id number] Ordering Dr: Jose Alfredo Valderrama DO PROCEDURE: [...] esophagus. No active pulmonary disease. Reading Location: [id number] CC: Dr. Jose Alfredo Valderrama DO ~ [employer] B[employer] Loader: Signed [facility]04-09-2025 History of Present illness Narrative* Albina Servin APRN - RICKIE - 08/05/2024 11:30 AM EDT Images from the original note were not included. [facility] ENDOCRINOLOGY BAR [address] [facility] [address] Dept: [phone] Dept Loc: [phone] Visit type: Established patient Reason for Visit: [...] Type 2 Diabetes mellitus with hyperglycemia and skilled nursing insulin use: Lab Results Component Value Date [...] scale Encourage patient to utilize sliding scale Violet 3+ sensor and reader scripts faxed to [...] to check sugars ac and hs using violet cgm - submit sugar logs in 1 [...] no polydipsia and no polyuria. PCP is Tod Lr MD Initial [facility] office visit: Before 12/13/2014 Last office visit: 05/27/2023 No significant Interval history Type of DM: 1 Onset :~2013 Complications: Cardiovascular -- No Statin Use -- Yes Retinopathy -- No Last KEVIN/Retina Eval: missed follow up at [facility] . Longer distance from home. 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 Pure Comfort Lancets 30G [facility] USE 1 UNUSED LANCET TO DRAW BLOOD. TWIST OFF THE PROTECTIVE CAP. PUSHTHE LANCET FIRMLY ONTO THE CHOSEN SITE, THEN DISPOSE FOUR TIMES DAILY 300 each 3 rosuvastatin (Crestor) 40 MG tablet Take 1 tablet (40 mg) by mouth daily. 90 tablet 3 Alcohol Swabs (Easy Comfort Alcohol Pads) pads USE 1 UNUSED PAD TO CLEAN SITE BEFORE TESTING OR INJECTING NINE TIMES DAILY 600 each 3 Continuous Blood Gluc Sensor (FreeStyle Violet 2 Sensor) [facility] every 14 (fourteen) days. glucose blood (OneTouch Verio) test strip INSERT 1 UNUSED TEST STRIP INTO METER, THEN APPLY BLOOD TO OBTAIN BLOOD GLUCOSE LEVEL FOUR TIMES DAILY 300 strip 3 glucose blood (True Metrix Blood Glucose Test) test strip 1 each 4 times daily. insulin glargine (Lantus SoloStar) 100 UNIT/ML pen Inject 14 Units under the skin Nightly. (Patienttaking differently: Inject 18 Units under the skin [...] REPAIR TONSILLECTOMY (HISTORICAL) UPPER GASTROINTESTINAL ENDOSCOPY 03/16/2015 [facility] URETERAL STENT PLACEMENT Common bile duct Family [...] CHOLHDLRATIO 4 10/12/2020 No results found for: [id number] Imaging/Testing: KAMRAN Kinney CNP Portions of the information within this [...] compliance with the treatment plan as well asdocumenting on the day of the visit. documented in this [facility]04-03-2025 History of Present illness Narrative* KAMRAN Vazquez CNP - 07/30/2024 2:28 PM EDT Left message for patient that Microalbumin and Lipid panel ordered. Message was not clear to specify what type of urine test the patient was requesting. documented in this [facility]04-03-2025 Telephone encounter Note* Telephone Encounter - Ruby Lam - 07/30/2024 10:20 AM EDT Name of caller: Andersen Contact phone number: [phone] Relationship to Patient: patient Provider: SANDRA Servin Practice: Endo Chief Complaint/Reason for Call: Patient is requesting a urine test for his appointment. He would like to complete it in the morning tomorrow. Please advise. Best time of day caller can be reached: Any Patient advised that office/PCP has 24-48 business hours to return their call: Yes [id number] Miscellaneous Notes* Telephone Encounter - Ruby Lam - 07/30/2024 10:20 AM EDT Name of caller: [place] Contact phone number: [phone] Relationship to Patient: patient Provider: SANDRA Servin Practice: Endo Chief Complaint/Reason for Call: Patient is requesting a urine test for his appointment. He would like to complete it in the morning tomorrow. Please advise. Best time of day caller can be reached: Any Patient advised that office/PCP has 24-48 business hours to return their call: Yes documented in this [facility]04-01-2025 Telephone encounter Note* Telephone Encounter - Inez Simmons MA - 07/28/2024 10:08 AM EDT That is the most recent visit (September 2023) , pt will be seen again on 08/05/24 by harvinder. Please advise and send notes to [facility] after the patients visit with harvinder in a week. [id number] Miscellaneous Notes* Telephone Encounter - Inez Simmons MA - 07/28/2024 10:08 AM EDT That is the most recent visit (September 2023) , pt will be seen again on 08/05/24 by harvinder. Please advise and send notes to raisa after the patients visit with harvinder in a week. * Telephone Encounter - Alisia Kennedy - 07/28/2024 9:00 AM EDT Message released to [email or web address] as written. Raisa stated they received requested clinical notes, but the date was for 10/01/23. Called to inquire if there was a sooner visit. Raisa was advised that was the most recent visit. [place]'s further questions if applicable: No further questions. Were all questions from office addressed or relayed to the patient from encounter: N/A documented in this encounterSProMedica Memorial [id number] Telephone encounter Note* Telephone Encounter - Alisia Zapata Marcia - 07/28/2024 9:00 AM EDT Message released to readness.compedro as written. Raisa stated they received requested clinical notes, but the date was for 10/01/23. Called to inquire if there was a sooner visit. Raisa was advised that was the most recent visit. Adielparstefania's further questions if applicable: No further questions. Were all questions from office addressed or relayed to the patient from encounter: N/A [facility]Lvwska18-30-7078 Telephone encounter Note* Telephone Encounter - Medina Tam - 04/16/2024 11:09 AM EST See pended script [facility] HospitalHjigxn90-07-2386 Miscellaneous Notes* Telephone Encounter - Medinatuan Tam - 04/16/2024 11:09 AM EST See pended script * Telephone Encounter - Lisbet Kruger - 04/16/2024 8:53 AM EST Called pt again and scheduled for 08/05/2024 with Albina Servin. Pt also placed on wait list for sooner appointment. * Telephone Encounter - Lisbet Kruger - 04/14/2024 8:37 AM EST Called pt and left a message requesting that he call the office to schedule an appointment. documented in this [facility]12-19-2024 Telephone encounter Note* Telephone Encounter - Lisbet Kruger - 04/16/2024 8:53 AM EST Called pt again and scheduled for 08/05/2024 with Albina Servin. Pt also placed on wait list for sooner appointment. [facility] HospitalGkpxeb88-14-6109 Telephone encounter Note* Telephone Encounter - Lisbet Slick - 04/14/2024 8:37 AM EST Called pt and left a message requesting that he call the office to schedule an appointment. [facility] HospitalYayhol18-56-0564 [facility] Discharge Summary Abraham Bush : 1955 Admit date: 02/15/2024 Discharge date: 02/17/2024 Admitting Physician: Lane Maldonado MD Primary Care Physician: Tod Lr MD Visit Status: Admission Code Status: [...] usage. Labs reviewed Consults: Critical care and wage adjuster Discharge Instructions: Diet: Adult diet Regular; 5 [...] TESTING OR INJECTING NINE TIMES DAILY FreeStyle Violet 2 Sensor misc insulin pen needle 32G [...] known as: Lovaza Pure Comfort Lancets [facility] USE 1 UNUSED LANCET TO DRAW BLOOD. [...] same as other medic (more content not included)...[facility] [id number] Hospital course Narrative* Malini Laguna MD - 02/17/2024 3:55 PM EDT [facility] MED[facility] Hospitalist Discharge Summary Abraham Bush : 1955 Admit date: 02/15/2024 Discharge date: 02/17/2024 Admitting Physician: Lane Maldonado MD Primary Care Physician: Tod Lr MD Visit Status: Admission Code Status: [...] with DKA,, he was not taking his insulinregularly due to consistently poor oral intake, admitted and treated with IV fluids and IV insulin,blood sugars improved and he was transferred to the regular floor, sliding scale insulin was provided and his blood sugars were monitored he was able to tolerate diet well, discharged home in a stable condition, advised to be consistent with insulin usage. Labs reviewed Consults: Critical care and wage adjuster Discharge Instructions: Diet: Adult diet Regular; 5 [...] for 15 days. Do not crush, chew, orsplit. Start taking on: February 18, 2024 CHANGE [...] as other medications prescribed for you. Read thedirections carefully, and ask your doctor or other care provider to review them with you. CONTINUE taking these medications aspirin 325 MG tablet Easy Comfort Alcohol Pads pads USE 1 UNUSED PAD TO CLEAN SITE BEFORE TESTING OR INJECTING NINE TIMES DAILY FreeStyle Violet 2 Sensor [facility] insulin pen needle 32G x 4 mm [...] known as: Lovaza Pure Comfort Lancets 30G [facility] USE 1 UNUSED LANCET TO DRAW BLOOD. [...] as other medications prescribed for you. Read thedirections carefully, and ask your doctor or other care provider to review them with you. Where to Get Your Medications These medications were sent to [facility] [address] [facility] [address] Hours: Saturday to Saturday 10 am to 6 pm insulin lispro 100 UNIT/ML pen injection metoclopramide 5 MG tablet pantoprazole 40 MG EC tablet Recommended Follow-up: No follow-up provider specified. Complexity of Follow up: [] Moderate Complexity: follow up within 7-14 calendar days (62768) [x] Severe Complexity: follow up within 7 calendar days (53577) Follow up Testing, Pending results or Referrals [...] PM This report was created using the Hubub Speaking voice- activated system. Despiteprompt dictation and careful editorial review, there may be subtle contextual errors in this report, due to misrecognition of the spoken word. documented in this [facility]10-21-2024 Note* Care Coordination - Audrey Antony RN - 02/17/2024 7:33 AM EDT Care Management Progress Note Transferred from ICU level of care yesterday. Remains on iv reglan. BS ac and hs with ss coverage .K and phos down this morning. Discharge plan is home when medically stable. . Length of Stay (Days): 2 GMLOS: 2 [facility]10-21-2024 Note* Care Coordination - Audrey Antony RN - 02/17/2024 7:33 AM EDT Care Management Progress Note Transferred from ICU level of care yesterday. Remains on iv reglan. BS ac and hs with ss coverage .K and phos down this morning. Discharge plan is home when medically stable. . Length of Stay (Days): 2 GMLOS: 2 [facility]10-21-2024 NoteCare Management Progress Note Transferred from ICU level of care yesterday. Remains on iv reglan. BS ac and hs with ss coverage . K and phos down this morning. Discharge plan is home when medically stable. . Length of Stay (Days): 2 [facility]OS[facility] Miscellaneous Notes* Care Coordination - Audrey Antony RN - 02/17/2024 7:33 AM EDT Care Management Progress Note Transferred from ICU level of care yesterday. Remains on iv reglan. BS ac and hs with ss coverage .K and phos down this morning. Discharge plan is home when medically stable. . Length of Stay (Days): 2 GMLOS: 2 * Care Plan - Giana Hood RN - 02/16/2024 11:45 PM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 0.9 % 10 mL injection (20 mg IntraVENous Given 02/15/24 175) lidocaine (Xylocaine) 2 % mouth solution 5 mL (5 mL Mouth/Throat Given 02/15/24 175) And aluminum & magnesium hydroxide-simethicone (Mylanta) 200-200-20 MG/5ML oral suspension 20 mL (20 mL Oral Given 02/15/24 175) REVAL: As soon as the patient arrived, [...] to admit him to the ICU. The drapery maker was notified. He came down to see [...] condition which required my urgent intervention. CONSULTS: Glazing Department Supervisor PROCEDURES: Unless otherwise noted below, none 1. [...] are any questions or concerns please feel freeto contact the dictating provider for clarification.) Kuldeep Rios MD (electronically signed) Emergency Medicine Provider Kuldeep Rios MD 02/15/24 8805 [id number] History of Present illness Narrative* Dee Pitts, KAMRAN - [facility] - 10/01/2023 9:30 AM EDT Images from the original note were not included. [facility] [address] [facility] [address] Dept: [phone] Dept Loc: [phone] Visit type: Established patient Reason for Visit: Diabetes (Follow up-over due for eye exam-last one approx 5 years ago/) Assessment and Plan 1. Type 1 diabetes mellitus with hyperglycemia (HCC) - AMB POC HEMOGLOBIN A1C - insulin glargine (Lantus SoloStar) 100 UNIT/ML pen; Inject 14 Units under the skin Nightly., Starting 10/01/2023, Until Katlyn 12/03/2024, Normal - insulin lispro (HumaLOG KWIKPEN) 100 UNIT/ML pen injection; Inject 16 Units under the skin in themorning and 16 Units at noon and 16 [...] Type 2 Diabetes mellitus with hyperglycemia and buttermaker continuous churn insulin use: - Most Recent A1C is [...] to check sugars ac and hs using violet cgm - submit sugar logs in 1 [...] no polydipsia and no polyuria. PCP is Tod Lr MD Initial [facility] endocrinology office visit: Before 12/13/2014 Last office visit: 05/27/2023 No significant Interval history Type of DM: 1 Onset :~2013 Current DM Medications: Humalog 14 units TID before meals with SS of 1 unit for every 50 greater than 150. Lantus 16 units nightly Complications: Cardiovascular -- No Statin Use -- Yes Retinopathy -- No Last KEVIN/Retina Eval: missed follow up at [facility] . Longer distance from home. Would like to be referred to ophthalmology in [place] Nephropathy -- No RONNIE/ARB Use -- Yes Polyneuropathy -- Yes Bilateral great toes Foot Exam: 11/13/2022 Obesity -- No Other -- No Pt complaints include: ran out of lantus for few months Since last office visit denies new health problems, denies hospitalizations, and denies surgeries. Pt feels their blood sugars are unchanged since NANCI. Checking Blood sugar 4+ times daily with violet 2 Hyperglycemia present: Yes Hypoglycemia present: Yes [...] mouth daily. Continuous Blood Gluc Sensor (FreeStyle Violet 2 Sensor) misc every 14 (fourteen) days. glucose blood (VastrmTouch Verio) test strip INSERT 1 UNUSED TEST [...] DRAW BLOOD. TWIST OFF THE PROTECTIVE CAP. PUSHTHE LANCET FIRMLY ONTO THE CHOSEN SITE, THEN [...] REPAIR TONSILLECTOMY (HISTORICAL) UPPER GASTROINTESTINAL ENDOSCOPY 03/16/2015 [facility] URETERAL STENT PLACEMENT Common bile duct Family [...] CHOLHDLRATIO 4 10/12/2020 No results found for: [id number] Imaging/Testing: KAMRAN Tabor CNP Portions of the information within this [...] compliance with the treatment plan as well asdocumenting on the day of the visit. documented in this [facility]06-04-2024 Instructions* Patient Instructions* KAMRAN Vazquez CNP - 10/01/2023 9:30 AM EDT Low Dose Correction Algorithm Glucose: Dose: LESS than 149 No Insulin 150-199 1 Unit 200-249 2 Units 250-299 3 Units 300-349 4 Units 350-400 5 Units Above 400 6 Units documented in this [facility]05-31-2024 Telephone encounter Note* Telephone Encounter - Kati Olivares RN - 09/27/2023 4:50 PM EDT S: Patient spoke with [facility] nurse regarding needing a refill on his [...] Partida Will send the script into the [facility] pharmacy. [facility] RN called patient ans relayed the message an order would be sent tonight. Pharmacy closes at 19:00. Patient understands care advice. No further needs at this time. Patient instructed to call back with new or worsening symptoms. Reason for Disposition [1] Caller has NON-URGENT medicine question about med that PCP prescribed AND [2] triager unable toanswer question Protocols used: Medication Refill and Renewal [id number] [id number] Miscellaneous Notes* Telephone Encounter - Kati Olivares RN - 09/27/2023 4:50 PM EDT S: Patient spoke with [facility] nurse regarding needing a refill on his [...] Partida Will send the script into the [facility] pharmacy. [facility] RN called patient ans relayed the message an order would be sent tonight. Pharmacy closes at 19:00. Patient understands care advice. No further needs at this time. Patient instructed to call back with new or worsening symptoms. Reason for Disposition [1] Caller has NON-URGENT medicine question about med that PCP prescribed AND [2] triager unable toanswer question Protocols used: Medication Refill and Renewal [id number] documented in this [facility]05-06-2024 Telephone encounter Note* Telephone Encounter - Inez Simmons MA - 09/02/2023 11:28 AM EDT Sent rx request to dr partida [facility] [id number] Miscellaneous Notes* Telephone Encounter - Inez Simmons MA - 09/02/2023 11:28 AM EDT Sent rx request to dr partida documented in this [facility]03-21-2024 Telephone encounter Note* Telephone Encounter - Inez Simmons MA - 07/18/2023 8:40 AM EDT Faxed last office notes to [facility] at provided fax #: [phone]. [facility] [id number] Miscellaneous Notes* Telephone Encounter - Inez Simmons MA - 07/18/2023 8:40 AM EDT Faxed last office notes to raisa at provided fax #: [phone]. * Telephone Encounter - Alisia Kennedy - 07/17/2023 4:23 PM EDT Name of caller: Miri Contact phone number: [phone] Relationship to Patient: Raisa Provider: Frederic Pitts Practice: Endocrinology Chief Complaint/Reason for Call: Raisa is requesting date of last office visit and office visit notes to be faxed to renew sensors. Please fax or call to advise. Reference #[id number] Best time of day caller can be reached: Any Patient advised that office/PCP has 24-48 business hours to return their call: Yes documented in this [facility]SPro[facility] Memorial HospitalNcxnte76-65-5551 Telephone encounter Note* Telephone Encounter - Alisia Kennedy - 07/17/2023 4:23 PM EDT Name of caller: Miri Contact phone number: [phone] Relationship to Patient: Raisa Provider: Frederic Pitts Practice: Endocrinology Chief Complaint/Reason for Call: Raisa is requesting date of last office visit and office visit notes to be faxed to renew [employer]. Please fax or call to advise. Reference #[id number] Best time of day caller can be reached: Any Patient advised that office/PCP has 24-48 business hours to return their call: Yes [facility] HospitalGwpliu52-76-1269 Telephone encounter Note* Telephone Encounter - Rosa Partida MD - 05/28/2023 10:06 AM EST Results of recent labs reviewed with patient [...] increase the dose to 40 Mg daily [facility] [id number] Miscellaneous Notes* Telephone Encounter - Rosa Partida MD - 05/28/2023 10:06 AM EST Results of recent labs reviewed with patient [...] to 40 Mg daily documented in this encounterSProMedica Memorial HospitalHipmxn49-90-3864 History of Present illness Narrative* Rosa Partida MD - 05/27/2023 9:20 AM EST Images from the original note were not included. [facility] [address] [place] [address] Dept: [phone] Dept Loc: [phone] Visit type: Established patient Reason for Visit: [...] scale . TDD 42 Units /day., Starting 05/27/2023, Until 11/23/2023, Normal - insulin pen needle 32G x 4 mm misc; Inject 1 each under the skin 4 times daily (before meals and nightly). Use as instructed, Starting 05/27/2023, Until 11/23/2023, Normal - External referral to Ophthalmology 2. Mixed hyperlipidemia - Lipid panel 3. Primary hypothyroidism - TSH - T4, free Type 2 Diabetes mellitus with hyperglycemia and skilled nursing insulin use: - Most Recent A1C is [...] to check sugars ac and hs using violet cgm - submit sugar logs in 1 [...] Diabetes Associated symptoms include fatigue. PCP is Tod Lr MD Initial [facility] office visit: [...] Last KEVIN/Retina Eval: missed follow up at [facility] . Longer distance from home. Would like to be referred to ophthalmology in [place] Nephropathy -- No RONNIE/ARB Use -- Yes Polyneuropathy -- Yes Bilateral great toes Foot Exam: 11/13/2022 Obesity -- No Other -- No Pt complaints include: ran out of lantus for few months Since last office visit denies new health problems, denies hospitalizations, and denies surgeries. Pt feels their blood sugars are unchanged since NANCI. Checking Blood sugar 4+ times daily with violet 2 Hyperglycemia present: Yes Hypoglycemia present: Yes [...] by mouth. Continuous Blood Gluc Sensor (FreeStyle Violet 2 Sensor) misc every 14 (fourteen) days. [...] Take by mouth. Pure Comfort Lancets 30G misc USE 1 UNUSED LANCET TO DRAW BLOOD. TWIST OFF THE PROTECTIVE CAP. PUSHTHE LANCET FIRMLY ONTO THE CHOSEN SITE, THEN [...] tablet (100 mcg) by mouth daily. 30 pantoprazole (ProtoNix) 40 MG EC tablet Take 1 tablet (40 mg) by mouth daily. Do not crush, chew, or split. 30 tablet 1 insulin glargine (Lantus SoloStar) 100 UNIT/ML pen Inject 16 Units under the skin Nightly. (Patientnot taking: Reported on 05/27/2023) 3 mL 12 [...] REPAIR TONSILLECTOMY (HISTORICAL) UPPER GASTROINTESTINAL ENDOSCOPY 03/16/2015 [facility] URETERAL STENT PLACEMENT Common bile duct Family [...] CHOLHDLRATIO 4 10/12/2020 No results found for: [id number] Imaging/Testing: Rosa Partida MD Portions of the information within this encounter were entered using an electronic dictation system. Best attempts were made to edit/proofread the information prior to note completion. Despite the review of information, some errors may remain. If there are questions related to the information contained within the note please contact the signing physician directly. documented in this [facility]01-29-2024 Instructions* Patient Instructions* Rosa Partida MD - 05/27/2023 9:20 AM [...] review in 4 weeks documented in this [facility]12-02-2023 Telephone encounter Note* Telephone Encounter - Rosa Partida MD - 03/30/2023 2:41 PM EST Prescription for Humalog KwikPen sent to pharmacy on file [facility] [id number] Miscellaneous Notes* Telephone Encounter - Rosa Partida MD - 03/30/2023 2:41 PM EST Prescription for Humalog KwikPen sent to pharmacy on file * Telephone Encounter - Judith Weiss RN - 03/30/2023 2:14 PM EST S: Patient spoke with [facility] nurse regarding almost out of his lispro. B: Onset of symptoms/concern began today. A: Patient needs a refill of insulin lispro (Humalog Kwikpen). Takes it 16u with morning, noon, andevening with meals. He is almost out and [...] policy Protocols used: Medication Refill and Renewal [id number] documented in this [facility]12-02-2023 Telephone encounter Note* Telephone Encounter - Judith Weiss RN - 03/30/2023 2:14 PM EST S: Patient spoke with [facility] nurse regarding almost out of his lispro. B: Onset of symptoms/concern began today. A: Patient needs a refill of insulin lispro (Humalog Kwikpen). Takes it 16u with morning, noon, andevening with meals. He is almost out and [...] policy Protocols used: Medication Refill and Renewal [id number] [facility] [id number] Telephone encounter Note* Telephone Encounter - Nancy Pereira MA - 02/07/2023 7:48 AM EDT RX pended for review and send [facility] [id number] Miscellaneous Notes* Telephone Encounter - Nancy Pereira MA - 02/07/2023 7:48 AM EDT RX pended for review and send documented in this [facility]10-04-2023 Telephone encounter Note* Telephone Encounter - KAMRAN Barber CNP - 01/30/2023 4:43 PM EDT Please reach out to patient and see if he would like to get this done. Will place order if agreeable. Thank you. [facility] [id number] Miscellaneous Notes* Telephone Encounter - KAMRAN Barber CNP - 01/30/2023 4:43 PM EDT Please reach out to patient and see if he would like to get this done. Will place order if agreeable. Thank you. * Telephone Encounter - Svetlana León - 01/29/2023 11:00 AM EDT This patient has had a prior lung screening CT scan at [facility]. According to our records, he/she is now due for an annual lung screening CT scan. Please evaluate and order this annual screening if your patient still meets lung screening criteria. documented in this [facility]10-03-2023 Telephone encounter Note* Telephone Encounter - Svetlana León - 01/29/2023 11:00 AM EDT This patient has had a prior lung screening CT scan at [facility]. According to our records, he/she is now due for an annual lung screening CT scan. Please evaluate and order this annual screening if your patient still meets lung screening criteria. [facility] [id number] History of Present illness Narrative* Dee Pitts APRN - FOOD TECHNOLOGY TEACHER - 11/13/2022 8:30 AM EDT Images from the original note were not included. [facility] [address] [facility] [address] Dept: [phone] Dept Loc: [phone] Visit type: Established patient Reason for Visit: [...] no polyuria and no weakness. PCP is Tod Lr MD Referring is PCP Initial [facility] [...] mg by mouth daily. Continuous Blood Gluc Presto Log Operator (Dexcom G6 teleradiologist) device Use as instructed 1 each 0 [...] tablet (100 mcg) by mouth daily. 30 [id number] lisinopril 5 MG tablet Take 1/2 (one-half) tablet by mouth once daily 45 tablet 0 Multiple Vitamin (MULTIVITAMIN ADULT PO) Take by mouth. omega-3 acid ethyl esters (Lovaza) 1 g capsule 1 g daily. pantoprazole (ProtoNix) 40 MG EC tablet Take 1 tablet (40 mg) by mouth daily. Do not crush, chew, or split. 30 tablet 1 Pure Comfort Lancets 30G mis USE 1 UNUSED LANCET TO DRAW BLOOD. TWIST OFF THE PROTECTIVE CAP. PUSHTHE LANCET FIRMLY ONTO THE CHOSEN SITE, THEN [...] REPAIR TONSILLECTOMY (HISTORICAL) UPPER GASTROINTESTINAL ENDOSCOPY 03/16/2015 [facility] URETERAL STENT PLACEMENT Common bile duct Family [...] CHOLHDLRATIO 4 10/12/2020 No results found for: [id number] Imaging/Testing: KAMRAN Ponce CNP Portions of the information within this encounter were entered using an electronic dictation system. Best attempts were made to edit/proofread the information prior to note completion. Despite the review of information, some errors may remain. If there are questions related to the information contained within the note please contact the signing physician directly. documented in this [facility]06-02-2023 Telephone encounter Note* Telephone Encounter - Tod Lr MD - 09/28/2022 12:26 PM EDT Okay, thank you [facility] [id number] Miscellaneous Notes* Telephone Encounter - Tod Lr MD - 09/28/2022 12:26 PM EDT Okay, thank you * Telephone Encounter - Evangelina Lui RN - 09/28/2022 11:00 AM EDT Pt was a no show today for OV 09/28/[address] Duval. Pt was a no show for EUS/ERCP procedure on 09/10/22. Will close out consult at this time. documented in this [facility]06-02-2023 Telephone encounter Note* Telephone Encounter - Evangelina Lui RN - 09/28/2022 11:00 AM EDT Pt was a no show today for OV 09/28/[address] Duval. Pt was a no show for EUS/ERCP procedure on 09/10/22. Will close out consult at this time. [place] [id number] Telephone encounter Note* Telephone Encounter - Santa Landeros RN - 09/10/2022 10:21 AM EDT Pt no show for 09/[address] Duval, he didn't show up today - lets plan on seeing him in office next available. Pt scheduled for OV on 09/28 at 0900. [facility] [id number] Miscellaneous Notes* Telephone Encounter - Santa Landeros RN - 09/10/2022 10:21 AM EDT Pt no show for 09/[address] Duval, he didn't show up today - lets plan on seeing him in office next available. Pt scheduled for OV on 09/28 at 0900. * Telephone Encounter - Evangelina Lui RN - 09/06/2022 2:16 PM EDT S: Called patient to inform him that his procedure time on 09/10 has been changed to 9 am with arrival time at 8 am. B: today A: Spoke to the patient and advised that his procedure time has been changed to 9 am with arrival time at 8 am. Pt verbalized understanding. Called change into surgery scheduling, spoke to Lazara, shechanged his time to 9 am. R: Patient instructed to call back with worsening symptoms, concerns or questions. * Telephone Encounter - Evangelina Lui RN - 09/05/2022 1:05 PM EDT S: Called patient to inform that procedure time has been changed for Mon 09/10. B: third attempt and My chart messages A: No answer on patient phone # listed and on 's phone listed. VM not set up and VM box is full. R: Waiting for response from patient. * Telephone Encounter - Evangelina Lui RN - 09/05/2022 9:06 AM EDT S: Called patient to move his procedure [...] phone. R: Will await a return call. * Telephone Encounter - Evangelina Lui RN - 09/04/2022 2:53 PM EDT S: Called patient to change the time [...] 6:30 am. Number to the office provided. * Telephone Encounter - Evangelina Lui RN - 08/23/2022 12:51 PM EDT S: Called patient to schedule EUS/ERCP procedure. B: today A: Spoke to the patient and scheduled EUS/ERCP procedure with Dr. Duval on 09/10 at 12 pm with arrival time at 11 am. Pt advised it is here at the [facility]. He is aware to have a class a regional drivers take him home and nothing to eat/drink [...] Chart also. Submitted to surgery scheduling, case #[id number] R: Patient instructed to call back with worsening symptoms, concerns or questions. * Telephone Encounter - Vivian Duval MD - 08/21/2022 2:50 PM EDT Can schedule for eus/ercp * Telephone Encounter - Evangelina Lui RN - 08/20/2022 8:46 AM EDT Please review referral from [facility] for outpatient ERCP. Pt was discharged on 08/18/22. * Telephone Encounter - Evangelina Lui RN - 08/17/2022 1:14 PM EDT Incoming call from Dr Shell at [facility] where patient is admitted for [...] to be discharged today. documented in this [facility]05-11-2023 Telephone encounter Note* Telephone Encounter - Evangelina Lui RN - 09/06/2022 2:16 PM EDT S: Called patient to inform him that his procedure time on 09/10 has been changed to 9 am with arrival time at 8 am. B: today A: Spoke to the patient and advised that his procedure time has been changed to 9 am with arrival time at 8 am. Pt verbalized understanding. Called change into surgery scheduling, spoke to Lazara, shechanged his time to 9 am. R: Patient instructed to call back with worsening symptoms, concerns or questions. [id number] Telephone encounter Note* Telephone Encounter - Evangelina Lui RN - 09/05/2022 1:05 PM EDT S: Called patient to inform that procedure time has been changed for 09/10. B: third attempt and My chart messages A: No answer on patient phone # listed and on 's phone listed. VM not set up and VM box is full. R: Waiting for response from patient. [facility] [id number] Miscellaneous Notes* Telephone Encounter - Evangelina Lui RN - 09/05/2022 1:05 PM EDT S: Called patient to inform that procedure time has been changed for 09/10. B: third attempt and My chart messages A: No answer on patient phone # listed and on 's phone listed. VM not set up and VM box is full. R: Waiting for response from patient. * Telephone Encounter - Evangelina Lui RN - 09/05/2022 9:06 AM EDT S: Called patient to move his procedure [...] phone. R: Will await a return call. * Telephone Encounter - Evangelina Lui RN - 09/04/2022 2:53 PM EDT S: Called patient to change the time [...] 6:30 am. Number to the office provided. * Telephone Encounter - Evangelina Lui RN - 08/23/2022 12:51 PM EDT S: Called patient to schedule EUS/ERCP procedure. B: today A: Spoke to the patient and scheduled EUS/ERCP procedure with Dr. Duval on Saturday, 09/10 at 12 pm with arrival time at 11 am. Pt advised it is here at the [facility]. He is aware to have a class a regional drivers take him home and nothing to eat/drink [...] Chart also. Submitted to surgery scheduling, case #[id number] R: Patient instructed to call back with worsening symptoms, concerns or questions. * Telephone Encounter - Vivian Duval MD - 08/21/2022 2:50 PM EDT Can schedule for eus/ercp * Telephone Encounter - Evangelina Lui RN - 08/20/2022 8:46 AM EDT Please review referral from [facility] for outpatient ERCP. Pt was discharged on 08/18/22. * Telephone Encounter - Evangelina Lui RN - 08/17/2022 1:14 PM EDT Incoming call from Dr Shell at [facility] where patient is admitted for [...] to be discharged today. documented in this [facility]05-10-2023 Telephone encounter Note* Telephone Encounter - Evangelina Lui RN - 09/05/2022 9:06 AM EDT S: Called patient to move his procedure [...] phone. R: Will await a return call. [facility] [id number] Telephone encounter Note* Telephone Encounter - Evangelina Lui RN - 09/04/2022 2:53 PM EDT S: Called patient to change the time [...] 6:30 am. Number to the office provided. [facility] [id number] Miscellaneous Notes* Telephone Encounter - Evangelina Lui RN - 09/04/2022 2:53 PM EDT S: Called patient to change the time [...] 6:30 am. Number to the office provided. * Telephone Encounter - Evangelina Lui RN - 08/23/2022 12:51 PM EDT S: Called patient to schedule EUS/ERCP procedure. B: today A: Spoke to the patient and scheduled EUS/ERCP procedure with Dr. Duval on 09/10 at 12 pm with arrival time at 11 am. Pt advised it is here at the [facility]. He is aware to have a class a regional drivers take him home and nothing to eat/drink [...] Chart also. Submitted to surgery scheduling, case #[id number] R: Patient instructed to call back with worsening symptoms, concerns or questions. * Telephone Encounter - Vivian Duval MD - 08/21/2022 2:50 PM EDT Can schedule for eus/ercp * Telephone Encounter - Evangelina Lui RN - 08/20/2022 8:46 AM EDT Please review referral from [facility] for outpatient ERCP. Pt was discharged on 08/18/22. * Telephone Encounter - Evangelina Lui RN - 08/17/2022 1:14 PM EDT Incoming call from Dr Shell at [facility] where patient is admitted for [...] to be discharged today. documented in this [facility]SPro[facility] [id number] Telephone encounter Note* Telephone Encounter - Evangelina Lui RN - 08/23/2022 12:51 PM EDT S: Called patient to schedule EUS/ERCP procedure. B: today A: Spoke to the patient and scheduled EUS/ERCP procedure with Dr. Duval on 09/10 at 12 pm with arrival time at 11 am. Pt advised it is here at the [facility]. He is aware to have a class a regional drivers take him home and nothing to eat/drink [...] Chart also. Submitted to surgery scheduling, case #[id number] R: Patient instructed to call back with worsening symptoms, concerns or questions. [facility] [id number] Miscellaneous Notes* Telephone Encounter - Evangelina Lui RN - 08/23/2022 12:51 PM EDT S: Called patient to schedule EUS/ERCP procedure. B: today A: Spoke to the patient and scheduled EUS/ERCP procedure with Dr. Duval on 09/10 at 12 pm with arrival time at 11 am. Pt advised it is here at the [facility]. He is aware to have a class a regional drivers take him home and nothing to eat/drink [...] Chart also. Submitted to surgery scheduling, case #[id number] R: Patient instructed to call back with worsening symptoms, concerns or questions. * Telephone Encounter - Vivian Duval MD - 08/21/2022 2:50 PM EDT Can schedule for eus/ercp * Telephone Encounter - Evangelina Lui RN - 08/20/2022 8:46 AM EDT Please review referral from [facility] for outpatient ERCP. Pt was discharged on 08/18/22. * Telephone Encounter - Evangelina Lui RN - 08/17/2022 1:14 PM EDT Incoming call from Dr Shell at [facility] where patient is admitted for [...] to be discharged today. documented in this [facility]04-25-2023 Telephone encounter Note* Telephone Encounter - Vivian Duval MD - 08/21/2022 2:50 PM EDT Can schedule for eus[facility]p [facility] Phone: [phone] Telephone encounter Note* Telephone Encounter - Evangelina Lui RN - 08/20/2022 8:46 AM EDT Please review referral from [facility] for outpatient ERCP. Pt was discharged on 08/18/22. [facility] [id number] Miscellaneous Notes*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 Esophagogastroduodenoscopy, flexible, transoral; with biopsy, single or [...] parts of digestive tract CPT copyright 2021 [employer] [place] [employer]. All rights reserved. The codes documented in this report are preliminary and upon intermediate designer review may be revised to meet current compliance requirements. Attending Participation: I personally performed the entire procedure. Caleb Wilson DO 08/16/2022 11:04:40 AM This report has been signed electronically. Number of Addenda: 0 Note Initiated On: 08/16/2022 10:22 AM * Care Coordination - Arlen Ly RN - 08/15/2022 12:03 PM EDT Care Managment Initial Assessment Date: 08/15/2022 Patient Name: Abraham Bush : 1955 Patient Information Source of Information: Patient Cognition/Language: WFL - Within Functional Limits Permission given to speak with patient sales and service representative/caregiver as indicated: Yes Confirmation of Payer with patient/family: Yes Payer Name: [facility] medicare [place]: No Confirmation of Primary Care Physician: Confirmed PCP Name: Chichi Seen in last 2 years?: Yes Primary Caregiver: Self If assistance needed, confirmed caregiver ready, willing and able to care for patient at discharge:Yes Confirmed with: pt Living Arrangements Current Residence: [...] A1C and consult to endocrine, consult to GIfor abnormal US, follow up blood cultures, EGD, MRCP. Arlen Ly RN documented in this [facility]SProMedica Memorial [id number] Nurse Note* Patel Weiss RN - 08/16/2022 10:57 AM EDT Specimens verified by Maude [facility] [id number] Nurse Note* Patel Weiss RN - 08/16/2022 10:57 AM EDT Specimens verified by Maude documented in this [facility]04-20-2023 Note* Op Note - Caleb Wilson DO - 08/16/2022 10:22 AM EDT [facility] Name: Abraham Bush Procedure Date: 08/16/2022 10:22 AM Gender: Male Date of : 1955 Age: 66 Admit Type: Inpatient Note Status: Finalized Endoscopist: Caleb Wilson DO, [id number] Procedure: Upper GI endoscopy Indications: Abnormal CT [...] immediate complications. Procedure Code(s): --- Professional --- 54499, Esophagogastroduodenoscopy, flexible, transoral; with biopsy, single or multiple --- Technical --- 95813, Esophagogastroduodenoscopy, flexible, transoral; with biopsy, single or [...] parts of digestive tract CPT copyright 2021 [employer] [place] [employer]. All rights reserved. The codes documented in this report are preliminary and upon intermediate designer review may be revised to meet current compliance requirements. Attending Participation: I personally performed the entire procedure. Caleb Wilson DO 08/16/2022 11:04:40 AM This report has been signed electronically. Number of Addenda: 0 Note Initiated On: 08/16/2022 10:22 AM [facility]04-19-2023 Note1. Respiratory motion artifact limits evaluation to some [...] Electronically Signed Date/Time: 08/15/2022 3:43 PM EDT [facility] [id number] Consult note* Chacho Francis MD - 08/15/2022 1:43 PM EDT Consult acknowledged. Already started on tramadol taper. Will add baclofen and clonidine q 8 hours as adjuncts for fentanyl withdrawal. Adding UDS now. Will see patient soon. [facility] [id number] Note* Care Coordination - Arlen Ly RN - 08/15/2022 12:03 PM EDT Care Managment Initial Assessment Date: 08/15/2022 Patient Name: Abraham Bush : 1955 Patient Information Source of Information: Patient Cognition/Language: WFL - Within Functional Limits Permission given to speak with patient sales and service representative/caregiver as indicated: Yes Confirmation of Payer with patient/family: Yes Payer Name: [employer] medicare : No Confirmation of Primary Care Physician: Confirmed PCP Name: Chichi Seen in last 2 years?: Yes Primary Caregiver: Self If assistance needed, confirmed caregiver ready, willing and able to care for patient at discharge:Yes Confirmed with: pt Living Arrangements Current Residence: [...] A1C and consult to endocrine, consult to GIfor abnormal US, follow up blood cultures, EGD, MRCP. Arlen Ly RN [facility] [id number] Consult note* Caleb Wilson, - 08/15/2022 9:59 AM EDT Associated Order(s): IP CONSULT TO GI Images from the original note were not included. GASTROENTEROLOGY CONSULTATION REASON FOR CONSULT: The patient was seen in consultation at the request of Dr. Shell re: Abnormal gastric fundus on CT and dilated bile duct HISTORY OF PRESENT ILLNESS: The patient is a 66 y.o. male with past medical history as listed belowwho presents with N/V and hyperglycemia. Patient had multiple episodes of nausea and vomiting. He attributes this to fentanyl withdrawal. Minimal associated abdominal pain. N/V has somewhat improved today. Work-up in the ED included abdominal imaging. CT A/P suggestive of a small hiatal hernia withasymmetric eccentric wall thickening in the gastric fundus. [...] IVDA. Remote history of common bile duct stentin 2016. Reportedly the stent has not been [...] REPAIR TONSILLECTOMY (HISTORICAL) UPPER GASTROINTESTINAL ENDOSCOPY 03/16/2015 [facility] URETERAL STENT PLACEMENT Common bile duct SOCIAL [...] 325 mg, Oral, Daily Continuous Blood Gluc Presto Log Operator (Dexcom G6 teleradiologist) device Use as instructed Continuous Blood Gluc Sensor (Dexcom G6 Sensor) [facility] every 10 days Continuous Blood Gluc Transmit (Dexcom G6 transmitter) [facility] [place] [place] Use as instructed, 1 device every 90 [...] 1 g, Daily Pure Comfort Lancets 30G misc USE 1 UNUSED LANCET TO DRAW BLOOD. TWIST OFF THE PROTECTIVE CAP. PUSHTHE LANCET FIRMLY ONTO THE CHOSEN SITE, THEN DISPOSE FOUR TIMES DAILY rosuvastatin (CRESTOR) 20 mg, Oral, Daily CURRENT MEDICATIONS: Current Facility-Administered Medications: acetaminophen (Tylenol) tablet 650 mg, 650 mg, Oral, q6h PRN, 650 mg at 08/14/222045 OR acetaminophen (Tylenol) suppository 650 mg, 650 mg, Rectal, q6h PRN, Pam Shell MD aspirin tablet 325 mg, 325 mg, Oral, Daily, Pam Shell MD, 325 mg at 08/15/22 0859 dextrose 5 % infusion, 100 mL/hr, IntraVENous, PRN, Frederic Marie MD dextrose 50 % solution 12.5 g, 12.5 g, IntraVENous, PRN, Frederic Marie MD enoxaparin (Lovenox) syringe 40 mg, 40 mg, SubCUTAneous, Daily, Pam Shell MD, 40 mg at 08/15/22 0900 glucagon (human recombinant) injection 1 mg, 1 mg, IntraMUSCular, PRN, Frederic Marie MD glucose oral gel 15 g, 15 g, Oral, PRN, Frederic Marie MD insulin glargine (Lantus) injection 18 Units, 18 Units, SubCUTAneous, Nightly, Pam Shell MD, 18 Units at 08/14/222109 Insulin Lispro (Humalog) injection 0-12 Units, 0-12 Units, SubCUTAneous, TID WC, 12 Units at 08/15/22 0901 AND Insulin Lispro (Humalog) injection 0-12 Units, 0-12 Units, SubCUTAneous, Nightly, Pam Shell MD, 4 Units at 08/14/222050 levothyroxine (Synthroid, Levoxyl) tablet 100 mcg, 100 mcg, Oral, Daily, Pam Shell MD, 100 mcg at 08/15/22 0900 lisinopril tablet 2.5 mg, 2.5 mg, Oral, Daily, Pam Shell MD, 2.5 mg at 08/15/22 0900 LORazepam (Ativan) tablet 0.5 mg, 0.5 mg, Oral, q12h PRN, Pam Shell MD, 0.5 mg at 08/15/22 0526 omega-3 acid ethyl esters (Lovaza) capsule 1 g, 1 g, Oral, Daily, Pam Shell MD, 1 g at 08/15/22 0900 ondansetron ODT (Zofran-ODT) disintegrating tablet 4 mg, 4 mg, Oral, q8h PRN, 4 mg at 08/14/22 2042OR ondansetron (Zofran) injection 4 mg, 4 mg, IntraVENous, q6h PRN, Pam Shell MD, 4 mg at 08/15/22 0233 pantoprazole (ProtoNix) injection 40 mg, 40 mg, IntraVENous, qAM AC, 40 mg at 08/15/22 0542 ANDsodium chloride (PF) 0.9 % flush 10 mL, 10 mL, IntraVENous, qAM AC, [facility] Hospitalselin Dupree MD, 10 mL at 08/15/22 0544 polyethylene glycol (PEG) 3350 (Miralax) packet 17 g, 17 g, Oral, Daily PRN, Pam Shell MD rosuvastatin (Crestor) tablet 20 mg, 20 mg, Oral, Daily, Pam Shell MD, 20 mg at 08/15/22 0900 sodium chloride 0.9 % infusion, 5-250 mL/hr, IntraVENous, PRN, Frederic Marie MD sodium chloride 0.9 % infusion, 100 mL/hr, IntraVENous, Continuous, Pam Shell MD, Last Rate: 100 mL/hr at [...] tablet 100 mg, 100 mg, Oral, q8h, Pam Shell MD ALLERGIES: No Known Allergies REVIEW [...] bilateral inferior anterior abdominal wall. Correlation with physicalexam is recommended. Questionable gallbladder wall thickening with [...] an outpatient with [facility] (Dr. Palacio) RUQ US in 6 [...] are any questions or concerns please feel freeto contact the dictating provider for clarification.) Electronically signed by Caleb Wilson DO 08/15/2022 9:59 AM [facility] [id number] Consult note* Dee Pitts, CUSTOMER ACCOUNT COORDINATOR - FOOD TECHNOLOGY TEACHER - 08/15/2022 7:37 AM EDTAssociated Order(s): IP CONSULT TO ENDOCRINOLOGY Department of Internal Medicine Division of Endocrinology, Diabetes, & Metabolism Endocrinology Note Patient Name: Abraham Bush : 1955 AGE: 66 y.o. Room/Bed: [facility]/[address] Admission Date: 08/14/2022 Visit Date: 08/15/2022 Reason for Endocrine Consult: Severely uncontrolled Diabetes Provider/Team Requesting Consult: Dr. Shell PCP: Tod Lr MD Outpt Finance Controller: Yes [facility] [place]ocrin[place] ASSESSMENT: Diabetes Type [...] BY [START ON 08/16/2022] traMADol FOLLOWED BY [ST ART ON 08/17/2022] traMADol Diagnostic Workup: I reviewed pertinent Laboratory results, Radiographic results, and Other Clinical Notes at the timeof today's encounter. Labs: No components found for: [...] CHOLHDLRATIO 4 10/12/2020 No results found for: [id number] Lab Results Component Value Date TSH 6.42 (H) 05/09/2022 Radiology reportsas per the Radiologist Radiology: ECG 12 lead Result Date: 08/14/2022 EKG demonstrates normal sinus rhythm with a normal axis, normal WV intervals, and normal QTC. No STelevation or T-wave inversions. Electronically Signed On 08-14-2022 12:43:37 EDT [address] Marie CT abdomen pelvis w contrast Result Date: 08/14/2022 Patient Name: ABRAHAM BUSH : 1955 Exam Date/Time: 08/14/2022 10:49 [...] no free fluid, loculated fluid collection, or freeair. No evidence of abdominal pelvic lymphadenopathy. Aorta: [...] the common bile duct. Report Dictated on Workstation: [id number] Electronically Signed By: Victor Manuel Hdz Electronically Signed Date/Time: 08/14/2022 11:24 AM EDT US abdomen limited Result Date: 08/14/2022 Patient Name: ABRAHAM BUSH : 1955 Exam Date/Time: 08/14/2022 13:41 [...] bowel gas Right kidney: No pelvicalyceal dilatation Ascites:None The common bile duct is dilated measuring [...] REPAIR TONSILLECTOMY (HISTORICAL) UPPER GASTROINTESTINAL ENDOSCOPY 03/16/2015 [facility] URETERAL STENT PLACEMENT Common bile duct Allergy(ies): [...] state/prognosis on the date of this note. T [facility] [id number] History and physical note* Pam Shell MD - 08/14/2022 3:05 PM EDT Attending History and Physical Admit Date: 08/14/2022 PCP: Tod Lr MD CHIEF COMPLAINT: NV and hyperglycemia History Obtained From: patient/ER HISTORY OF PRESENT ILLNESS: Abraham is a 66 y.o. male who presents to the emergency department with chief complaint of feelingunwell for the past several days, as well as vomiting since midnight. He also endorses hyperglycemia, stating that his blood sugars were in the 300s today. He states he is compliant with his diabeticmeds but hasn't taken insulin today. Of note, the patient endorses using half a gram to 1 g of fenta nyl per day but states that his last use was 2 days ago. states that he would like help to getoff of that as well. Past Medical History: [...] REPAIR TONSILLECTOMY (HISTORICAL) UPPER GASTROINTESTINAL ENDOSCOPY 03/16/2015 [facility] URETERAL STENT PLACEMENT Common bile duct Family [...] mg by mouth daily. Continuous Blood Gluc Presto Log Operator (Dexcom G6 teleradiologist) device Use as instructed 1 each 0 [...] tablet (100 mcg) by mouth daily. 30 [id number] lisinopril 5 MG tablet TAKE 1/2 (ONE-HALF) TABLET BY MOUTH ONCE DAILY Multiple Vitamin (MULTIVITAMIN ADULT PO) Take by mouth. omega-3 acid ethyl esters (Lovaza) 1 g capsule 1 g daily. Pure Comfort Lancets 30G mis USE 1 UNUSED LANCET TO DRAW BLOOD. TWIST OFF THE PROTECTIVE CAP. PUSHTHE LANCET FIRMLY ONTO THE CHOSEN SITE, THEN [...] bilateral inferior anterior abdominal wall. Correlation with physicalexam is recommended. 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 Also will do ativan 0.5mg po bid prn for anxiety. # DM type 1 (Juvenile type) with hyperglycemia/severely uncontrolled diabetes - IVF and resume homelevemir and add ISS/accuchecks. Check hgb A1C and [...] abnormal US with radiology recommending direct visualization ofasymmetric eccentric wall thickening in the gastric fundus. [...] signed by @MEMDNR@ on @TDNR@ at @NOWNR@ [facility] [id number] History and physical note* Pam Shell MD - 08/14/2022 3:05 PM EDT Attending History and Physical Admit Date: 08/14/2022 PCP: Tod Lr MD CHIEF COMPLAINT: NV and hyperglycemia History Obtained From: patient/ER HISTORY OF PRESENT ILLNESS: Abraham is a 66 y.o. male who presents to the emergency department with chief complaint of feelingunwell for the past several days, as well as vomiting since midnight. He also endorses hyperglycemia, stating that his blood sugars were in the 300s today. He states he is compliant with his diabeticmeds but hasn't taken insulin today. Of note, the patient endorses using half a gram to 1 g of fenta nyl per day but states that his last use was 2 days ago. states that he would like help to getoff of that as well. Past Medical History: [...] REPAIR TONSILLECTOMY (HISTORICAL) UPPER GASTROINTESTINAL ENDOSCOPY 03/16/2015 [facility] URETERAL STENT PLACEMENT Common bile duct Family [...] mg by mouth daily. Continuous Blood Gluc Presto Log Operator (Dexcom G6 teleradiologist) device Use as instructed 1 each 0 [...] tablet (100 mcg) by mouth daily. 30 [id number] lisinopril 5 MG tablet TAKE 1/2 (ONE-HALF) TABLET BY MOUTH ONCE DAILY Multiple Vitamin (MULTIVITAMIN ADULT PO) Take by mouth. omega-3 acid ethyl esters (Lovaza) 1 g capsule 1 g daily. Pure Comfort Lancets 30G misc USE 1 UNUSED LANCET TO DRAW BLOOD. TWIST OFF THE PROTECTIVE CAP. PUSHTHE LANCET FIRMLY ONTO THE CHOSEN SITE, THEN [...] bilateral inferior anterior abdominal wall. Correlation with physicalexam is recommended. 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 Also will do ativan 0.5mg po bid prn for anxiety. # DM type 1 (Juvenile type) with hyperglycemia/severely uncontrolled diabetes - IVF and resume homelevemir and add ISS/accuchecks. Check hgb A1C and [...] abnormal US with radiology recommending direct visualization ofasymmetric eccentric wall thickening in the gastric fundus. [...] on @TDNR@ at @NOWNR@ documented in this [facility]04-18-2023 Emergency department Note* Jeffery Perez RN - 08/14/2022 1:58 PM EDT ACC RN spoke to pt. & provided the pt. With treatment information & community resources. Pt. States he would rather wait until later to participate in the ASAM assessment. Pt. Reports he is interested in detox after getting his diabetes under control. Jeffery Perez RN 08/14/22 1400 [facility] Emergency department Note* Jeffery Perez RN - 08/14/2022 1:58 PM EDT ACC RN spoke to pt. & provided the pt. With treatment information & community resources. Pt. States he would rather wait until later to participate in the ASAM assessment. Pt. Reports he is interested in detox after getting his diabetes under control. Jeffery Perez RN 08/14/22 1400 * Jeffery Perez RN - 08/14/2022 11:48 AM EDT ACC RN attempted to assess pt. But pt. Is currently sleeping. Respirations even & unlabored. Jeffery Perez RN 08/14/22 1149 * Jeffery Perez RN - 08/14/2022 11:22 AM EDT The following are the next steps in your Substance use Treatment Plan: Below are additional resources that you may find beneficial in your treatment: 12-Step: Heroin Anonymous: Edd Harris: [phone], Contreras Jacobs: [phone] Narcotics Anonymous: 888-GET_HOPE (540-086-0164) [facility]Maison Academia Alcohol Anonymous: akronaa.org James Anon: 926.794.1481: 12-step program for families & friends of people with addiction. CRISIS: Homeless Hotline: 342.587.5905 Domestic Violence help line anytime: 245.825.2183 Crisis Hotline: 19/11- 925.801.6606 ADM Addiction Helpline: 218.397.5329 (available 8:30 AM to 4:00 PM ) 2-1-1 2-1-1 helps people across [facility] find local resources when they don't know where to turn forhelp. We are available 24 hours a day, 7 days a week. For help, simply dial 05-30-1 to speak to one of our trained professionals. Methadone Treatment: [facility] [place], [place] [phone] [facility] - [place], [place] [phone] [facility] [place], [place] [phone] [place] [phone] [facility] - [phone] ext. [phone] or 224 [facility] ([place]) [phone] DETOX TREATMENT: [facility] Crisis Center: anytime @ [phone] for alcohol & drug addiction help. [facility], [place] [phone] [facility] coordination: [phone] (Medicare not accepted) [facility] [place]: [phone] ([place] Medicaid not accepted) [facility], [place]: [phone] ([place] Medicaid not accepted) [facility], [place]: [phone] [facility] [place]: [phone] [facility], [place]: [phone], [facility] [place]: [phone] [place], [place] [phone] [facility] [place] [facility], [place]: [phone] [facility], [place], [place] [phone] ext. [phone] [place], [place] (pt. must be medically cleared prior to admission in ED) [facility] [place]: [phone] ([place] Medicaid not accepted) [facility], [place], [place] [phone] OUTPATIENT TREATMENT: [facility] @ [place], [place] [phone]. Med [facility]: inpt. Or outpt. - [phone] 1st Step MAT Program @ [facility] ED: [phone] 1st Step MAT Program @ [facility] ED: [phone] 1st Step MAT Program @ [facility] ED: [phone] Intensive Outpatient Programs- [place], [place] [phone] [place], [place] [phone] [place], [place] [phone] [place], [place] [phone] [facility]: [phone] [facility]: [phone], [place]: [phone] [facility] [place]: [phone] [facility] Behavioral [facility]: [phone], [place]: [phone] [facility] [place] [phone] [facility]: LCADA Marco Lucius [place] & [place]: [phone] [place] Justyna Lester [place], [place] [phone] [facility], [place], [place] [phone] [facility] [phone] [facility] SERVICES: One Eighty (180): [place], [place] [phone] New [place], [place] & [place]: [phone] RESIDENTIAL TREATMENT FACILITIES: [facility] [place], [place] [phone] (admission coordinated by -Mary Mai ext [phone]) [facility] [place], [place]: [phone]; Men's services inpt. & women services -Outpt. [place], [place] [phone] [facility], [place], [place] [phone] [facility] [place], [place] [phone] [facility], [place], [place] [phone] [facility] [place], [place] [phone] [facility], [place], [place] [phone] [facility] - [place], [place] [phone] OTHER SERVICES: [employer] - Peer Copy Manager Service: [phone] [facility]: [phone] ext. [phone] Medicaid Health Coverage: [facility]: [phone] Jeffery Perez RN 08/14/22 1124 * Jeffery Perez RN - 08/14/2022 11:22 AM EDT Images from the original note were not included. Project FABIOLA is available STATE-WIDE. Narcan/Naloxone is available WITHOUT prescription at most [place] [facility], including [facility], [facility], [facility], [facility], and others. It has a cost, but there is a free program through [facility] (and 47 other Psychiatric). A full list of pharmacies is available at the [place] Board of Pharmacy website, but calling your local pharmacy is likely to be successful. You can buy it for $50-100 (insurance may cover it) and have it ready for another person. Specific Information for [facility] is available below. What is Geovany HICKS? Geovany HICKS is a community-based drug overdose prevention and [...] Geovany HICKS is an initiative of the [facility] Opiate Task Force and is funded in part by the [facility] Alcohol, Drug Addiction and Mental Health (ADM) Services [facility] Alcohol, Drug Addiction & Mental Health Services [place] [address] [email or web address] WALK-IN HOURS: Tuesdays (every hour) from 3pm - 6pm THIS IS A FREE SERVICE TO ALL PARTICIPANTS Deaths Avoided With Naloxone A community-based drug overdose prevention and education project Emergency first aid for a suspected opioid overdose: If a person is exhibiting symptoms of an opioid overdose, these following life- saving measures should be taken immediately: Check to [...] Give Naloxone Assemble the nasal spray Naloxone. Winigan half (1 ml) up one nostril, half [...] off and the victim could start to overdoseagain. What is Naloxone? Naloxone (also known as Narcan) is a medication that can reverse an overdose that is caused by an opioid drug. When administered during an overdose, Naloxone blocks the effects of opioids on the brain and restores breathing within two to eight minutes. Naloxone has been used safely by emergency medical genetics director for more than 40 years and has [...] An overdose is a medical emergency! Call immediately and begin first aid. What are [...] tolerance can decrease rapidly when someone has takena break from using a substance whether intentionally (in treatment) or unintentionally (in residential or the hospital). Taking opioids after a [...] dysfunction, heart disease or HIV/AIDS are also atan increased risk of an overdose. Previous Overdose A person who has experienced a nonfatal overdose in the past, has an increased risk of a fatal overdose in the future. Jeffery Perez RN 08/14/22 1122 documented in this [facility]04-18-2023 Emergency department Note* Jeffery Perez RN - 08/14/2022 11:48 AM EDT ACC RN attempted to assess pt. But pt. Is currently sleeping. Respirations even & unlabored. Jeffery Perez RN 08/14/22 1144 [facility]Cfggib77-30-4306 Emergency department Note* Jeffery Perez RN - 08/14/2022 11:22 AM EDT The following are the next steps in your Substance use Treatment Plan: Below are additional resources that you may find beneficial in your treatment: 12-Step: Heroin Anonymous: Edd Harris: [phone], Contreras Jacobs: [phone] Narcotics Anonymous: 888-GET_HOPE (495-613-3375) nabMiMediae.org Alcohol Anonymous: akronaa.org James Anon: 172.969.4848: 12-step program for families & friends of people with addiction. CRISIS: Homeless Hotline: 639.695.4398 Domestic Violence help line anytime: 698.258.9027 Crisis Hotline: 19/11- 381.135.9072 ADM Addiction Helpline: 172.106.1544 (available 8:30 AM to 4:00 PM ) 05-30- helps people across [facility] find local resources when they don't know where to turn forhelp. We are available 24 hours a day, 7 days a week. For help, simply dial to speak to one of our trained professionals. Methadone Treatment: [facility] [place], [place] [phone] [facility] [place], [place] [phone] [facility] - [place], [place] [phone] [facility] [place], [place] [phone] [facility] - [phone] ext. [phone] or 224 [facility] ([place]) [phone] DETOX TREATMENT: [facility] Crisis Center: anytime @ [phone] for alcohol & drug addiction help. [facility], [place] [phone] [facility] coordination: [phone] (Medicare not accepted) [facility] [place]: [phone] ([place] Medicaid not accepted) [facility] [place]: [phone] ([place] Medicaid not accepted) [place], [place]: [phone] [facility] [place]: [phone] [place], [place]: [phone], [facility] [place]: [phone] [place] [phone] [facility] [place], [place]: [phone] [facility], [place] [phone] ext. [phone] [place], [place] (pt. must be medically cleared prior to admission in ED) [facility] [place]: [phone] ([place] Medicaid not accepted) [facility], [place] [phone] OUTPATIENT TREATMENT: [facility] Addiction Health @ [place], [place] [phone]. Med [facility] House: inpt. Or outpt. [phone] 1st Step MAT Program @ [facility] ED: [phone] 1st Step MAT Program @ [facility] ED: [phone] 1st Step MAT Program @ [facility] ED: [phone] Intensive Outpatient Programs- [place], [place] [phone] [place], [place] [phone] [place], [place] [phone] [place], [place] [phone] [facility]: [phone] [facility]: [phone], [place]: [phone] [place], [place]: [phone] [facility]: [phone], [place]: [phone] [employer], [place] [phone] [facility]: LCALucius Issa & [place], [place]: [phone] [facility] [place], [place] [phone] [facility] [place], [place] [phone] [facility] [phone] [facility] SERVICES: One [employer] (180): [place] [phone] New [place] & Mike: [phone] RESIDENTIAL TREATMENT FACILITIES: [facility], [place], [place] [phone] (admission coordinated by -Mary Mai ext [phone]) [facility], [place], [place]: [phone]; Men's services inpt. & women services -Outpt. [place], [place] [phone] Ramlu[place], [place] [phone] [place], [place] [phone] [facility], [place], [place] [phone] [facility] Residential, [place], [place] [phone] [facility], [place], [place] [phone] [facility] - [place], [place], [place] [phone] OTHER SERVICES: [facility] - Peer Copy Manager Service: [phone] [facility]: [phone] ext. [phone] Medicaid Health Coverage: [facility] JFS: [phone] Jeffery Perez RN 08/14/22 1124 [facility]Bcwbcq97-42-7642 Emergency department Note* Jeffery Perez RN - 08/14/2022 11:22 AM EDT Images from the original note were not included. Geovany HICKS is available STATE-WIDE. Narcan/Naloxone is available WITHOUT prescription at most [place] Pharmacies, including [facility], [facility], [employer], [facility], and others. It has a cost, but there is a free program through [facility] (and 47 other Psychiatric). A full list of pharmacies is available at the [place] Board of Pharmacy website, but calling your local pharmacy is likely to be successful. You can buy it for $50-100 (insurance may cover it) and have it ready for another person. Specific Information for [facility] is available below. What is [...] Geovany FABIOLA is an initiative of the [facility] Opiate Task Force and is funded in part by the [facility] Alcohol, Drug Addiction and Mental Health (ADM) Services Board [facility] Alcohol, Drug Addiction & Mental Health Services [address] [address] [email or web address] WALK-IN HOURS: Tuesdays (every hour) from 3pm - 6pm THIS IS A FREE SERVICE TO ALL PARTICIPANTS Deaths Avoided With Naloxone A community-based drug overdose prevention and education project Emergency first aid for a suspected opioid overdose: If a person is exhibiting symptoms of an opioid overdose, these following life- saving measures should be taken immediately: Check to [...] Give Naloxone Assemble the nasal spray Naloxone. Winigan half (1 ml) up one nostril, half [...] off and the victim could start to overdoseagain. What is Naloxone? Naloxone (also known as Narcan) is a medication that can reverse an overdose that is caused by an opioid drug. When administered during an overdose, Naloxone blocks the effects of opioids on the brain and restores breathing within two to eight minutes. Naloxone has been used safely by emergency medical genetics director for more than 40 years and has [...] An overdose is a medical emergency! Call immediately and begin first aid. What are [...] tolerance can decrease rapidly when someone has takena break from using a substance whether intentionally (in treatment) or unintentionally (in residential or the hospital). Taking opioids after a [...] dysfunction, heart disease or HIV/AIDS are also atan increased risk of an overdose. Previous Overdose A person who has experienced a nonfatal overdose in the past, has an increased risk of a fatal overdose in the future. Jeffery Perez RN 08/14/22 1122 [facility] HospitalXszrfk54-77-8747 Telephone encounter Note* Telephone Encounter - JENNI Wood - 07/11/2022 2:19 PM EDT Patient did not show for his appointment today 07/11/2022, tried to call patient to reschedule but no voicemail set up and unable to leave message. Letter mailed to patient. [facility] HospitalHtbvvc46-44-0765 Miscellaneous Notes* Telephone Encounter - JENNI Wood - 07/11/2022 2:19 PM EDT Patient did not show for his appointment today 07/11/2022, tried to call patient to reschedule but no voicemail set up and unable to leave message. Letter mailed to patient. documented in this encounterSProMedica Memorial HospitalSnwycu28-84-4661 History of Present illness Narrative* Dee Pitts, CUSTOMER ACCOUNT COORDINATOR - FOOD TECHNOLOGY TEACHER - 05/10/2022 9:00 AM EST Images from the original note were not included. [facility] ENDOCRINOLOG[facility] [address] [facility] [address] Dept: [phone] Dept Loc: [phone] Visit type: Established patient Reason for Visit: [...] Start Dexcom. Patient's phone not compatible with ArtistForce or dexcom software. Presto Log Operator ordered. Dexcom supplies ordered through DME. Hypothyroid: [...] months (around 08/08/2022). Subjective HPI PCP is Tod Lr MD Referring is PCP Initial [facility] office visit: Before 12/13/2014 Last office visit: 01/23/2022 Type of DM: 1 Complications: Cardiovascular -- Yes HLP Statin Use -- Yes Retinopathy -- No Last KEVIN/Retina Eval: Missed last appointment. Needs to reschedule [facility] [place] Nephropathy -- No RONNIE/ARB Use -- Yes- [...] REPAIR TONSILLECTOMY (HISTORICAL) UPPER GASTROINTESTINAL ENDOSCOPY 03/16/2015 [facility] URETERAL STENT PLACEMENT Common bile duct Family [...] CHOLHDLRATIO 4 10/12/2020 No results found for: [id number] Imaging/Testing: KAMRAN Ponce CNP Portions of the information within this encounter were entered using an electronic dictation system. Best attempts were made to edit/proofread the information prior to note completion. Despite the review of information, some errors may remain. If there are questions related to the information contained within the note please contact the signing physician directly. documented in this [facility]01-11-2023 Evaluation + Plan note* Assessment & Plan Note - Tod Lr MD - 05/09/2022 3:37 PM EST Associated Problem(s): Tobacco abuse Discussed smoking cessation [facility] HospitalDjorei77-13-1022 Miscellaneous Notes* Assessment & Plan Note - Tod Lr MD - 05/09/2022 3:37 PM ESTAssociated Problem(s): Tobacco abuse Discussed smoking cessation * Assessment & Plan Note - Tod Lr MD - 05/09/2022 3:36 PM EST Associated Problem(s): Hyperlipidemia Controlled, continue rosuvastatin 20 mg daily and omega-3 fish oil daily * Assessment & Plan Note - Tod Lr MD - 05/09/2022 3:35 PM EST Associated Problem(s): Type 1 diabetes mellitus with hyperglycemia (HCC) Uncontrolled, continue current dose of Levemir and insulin lispro, check blood sugars twice a day and drop off numbers in 2 weeks. * Assessment & Plan Note - Tod Lr MD - 05/09/2022 3:35 PM EST Associated Problem(s): Primary hypothyroidism Controlled, continue levothyroxine 88 mcg daily * Assessment & Plan Note - Tod Lr MD - 05/09/2022 3:35 PM EST Associated Problem(s): Chronic nausea Currently minimal, antinausea medicines as needed documented in this [facility]01-11-2023 Evaluation + Plan note* Assessment & Plan Note - Tod Lr MD - 05/09/2022 3:36 PM EST Associated Problem(s): Hyperlipidemia Controlled, continue rosuvastatin 20 mg daily and omega-3 fish oil daily [facility] HospitalRqghsj29-35-7089 Evaluation + Plan note* Assessment & Plan Note - Tod Lr MD - 05/09/2022 3:35 PM ESTAssociated Problem(s): Type 1 diabetes mellitus with hyperglycemia (HCC) Uncontrolled, continue current dose of Levemir and insulin lispro, check blood sugars twice a day and drop off numbers in 2 weeks. [facility] HospitalOsmklt28-73-1141 Evaluation + Plan note* Assessment & Plan Note - Tod Lr MD - 05/09/2022 3:35 PM ESTAssociated Problem(s): Primary hypothyroidism Controlled, continue levothyroxine 88 mcg daily [facility] HospitalJnglfg23-21-4665 Evaluation + Plan note* Assessment & Plan Note - Tod Lr MD - 05/09/2022 3:35 PM ESTAssociated Problem(s): Chronic nausea Currently minimal, antinausea medicines as needed [facility] Ykgxmm36-56-4140 History of Present illness Narrative* Janet Bullard MA - 05/09/2022 11:45 AM EST Patient verified by last name and date of . Patient wants a meat processor in the room during during the visit. no Telephone Cleaner na * Tod Lr MD - 05/09/2022 11:45 AM EST Images from the original note were not included. 05/09/2022 Abraham Bush (: 1955) is a 66 y.o. male , Established patient, here for evaluation of thefollowing chief complaint(s): Diabetes, Hypothyroidism, Hyperlipidemia, Anxiety, Medication [...] told him he should bring him which wouldnot be true because I tell all my [...] signature was used to authenticate this note. Tod Lr MD 05/09/2022 3:37 PM * Iman Wong MA - 05/09/2022 11:45 AM EST After obtaining consent, and per orders of Dr. Lr, injection of HD Flu vaccine given in left deltoid by Iman Wong. Patient instructed to report any adverse reaction immediately. documented in this encounterSProMedica Memorial HospitalEvalubayhealth [facility] note* Diagnosis Cigarette smoker Tobacco use disorder documented in this encounter [facility] Work Phone: Evaluation note* Diagnosis Vomiting- Primary Vomiting alone Vomiting Vomiting alone Abnormal CT scan Other nonspecific (abnormal) findings on radiological and other examinations of body structure documented in this encounter [facility]* Diagnosis Type 1 diabetes mellitus with hyperglycemia (HCC)- Primary Acquired hypothyroidism Unspecified hypothyroidism documented in this encounter [facility]* Diagnosis Type 1 diabetes mellitus with hyperglycemia (HCC) documented in this encounter [facility]* Diagnosis Type 1 diabetes mellitus with hyperglycemia (HCC)- Primary Mixed hyperlipidemia Primary hypothyroidism Unspecified hypothyroidism documented in this encounter [facility]* Diagnosis Primary hypothyroidism- Primary Unspecified hypothyroidism documented in this encounter [facility]* Diagnosis Essential hypertension- Primary Unspecified essential hypertension [facility]* Diagnosis Type 1 diabetes mellitus with hyperglycemia (HCC)- Primary Essential hypertension Unspecified essential hypertension Acquired hypothyroidism Unspecified hypothyroidism [facility]* Diagnosis Type 1 diabetes mellitus with hyperglycemia (HCC) documented [facility]* Diagnosis Primary hypothyroidism- Primary Unspecified hypothyroidism Mixed hyperlipidemia Type 1 diabetes mellitus with hyperglycemia (HCC) Chronic nausea Nausea alone Tobacco abuse Tobacco use disorder Nausea and vomiting, unspecified vomiting type- Primary Nausea and vomiting, unspecified vomiting type Dehydration Diabetic ketoacidosis without coma associated with other specified diabetes mellitus (HCC) documented [facility]* Diagnosis Type 1 diabetes mellitus with hyperglycemia (HCC)- Primary Acquired hypothyroidism Unspecified hypothyroidism [facility]* Diagnosis Primary hypothyroidism- Primary Unspecified hypothyroidism Mixed hyperlipidemia Type 1 diabetes mellitus with hyperglycemia (HCC) Chronic nausea Nausea alone Tobacco abuse Tobacco use disorder [facility]* Diagnosis Primary hypothyroidism- Primary Unspecified hypothyroidism Mixed hyperlipidemia Type 1 diabetes mellitus with hyperglycemia (HCC) Chronic nausea Nausea alone Tobacco abuse Tobacco use disorder Type 1 diabetes mellitus with hyperglycemia (HCC) documented [facility] encounter [facility]* Diagnosis Primary hypothyroidism- Primary Unspecified hypothyroidism Mixed hyperlipidemia Type 1 diabetes mellitus with hyperglycemia (HCC) Chronic nausea Nausea alone Tobacco abuse Tobacco use disorder Type 1 diabetes mellitus with hyperglycemia (HCC) documented [facility]* Diagnosis Primary hypothyroidism- Primary Unspecified hypothyroidism Mixed hyperlipidemia Type 1 diabetes mellitus with hyperglycemia (HCC) Chronic nausea Nausea alone Tobacco abuse Tobacco use disorder Type 1 diabetes mellitus with hyperglycemia (HCC)- Primary Mixed hyperlipidemia documented in this encounter [facility]* Diagnosis Primary hypothyroidism- Primary Unspecified hypothyroidism Mixed hyperlipidemia Type 1 diabetes mellitus with hyperglycemia (HCC) Chronic nausea Nausea alone Tobacco abuse Tobacco use disorder Type 1 diabetes mellitus with hyperglycemia (HCC)- Primary Mixed diabetic hyperlipidemia associated with type 2 diabetes mellitus (HCC) Hypertension associated with type 2 diabetes mellitus (HCC) Acquired hypothyroidism Unspecified hypothyroidism [facility] Diagnosis Onset Date Resolution Status Admit [...] 2024 9:31pm Sepsis acute August 10 9:31pm [facility] Work Phone: Evaluation note* Diagnosis Primary hypothyroidism- Primary Unspecified hypothyroidism Mixed hyperlipidemia Type 1 diabetes mellitus with hyperglycemia (HCC) Chronic nausea Nausea alone Tobacco abuse Tobacco use disorder Type 1 diabetes mellitus with hyperglycemia (HCC)- Primary Nausea and vomiting, unspecified vomiting type Mixed hyperlipidemia Primary hypothyroidism Unspecified hypothyroidism documented in this encounter [facility] for referral (narrative)* Consultation (Routine) - Pending Review Specialty Diagnoses / Procedures Referred By Duane t Referred To Contact Ophthalmology Diagnoses Type 1 diabetes mellitus with hyperglycemia (HCC) Procedures [place] OFFICE/OUTPATIENT NEW HIGH [facility] 60-74 MINUTES Dee Pitts, CUSTOMER ACCOUNT COORDINATOR - FOOD TECHNOLOGY TEACHER [address] [place] [address] [facility] [address] [facility] [address] [place] [address] Referral ID Status Reason Start Date Expiration Date Visits Requested Visits Authorized [id number] Pending Review Specialty Services Required 11/13/2022 11/13/2023 1 1 [facility] Consultation (Routine) - Pending Review Specialty Diagnoses / Procedures Referred By Contac t Referred To Contact Ophthalmology Diagnoses Type 1 diabetes mellitus with hyperglycemia (HCC) Procedures [place] OFFICE/OUTPATIENT NEW HIGH MDM 60 MINUTES Rosa Partida MD [address] [facility] [address] [place] [address] Referral ID Status Reason Start Date Expiration Date Visits Requested Visits Authorized [id number] Pending Review Specialty Services Required 05/27/2023 05/26/2024 1 1 [facility] Consultation (Routine) - Pending Review Specialty Diagnoses / Procedures Referred By Contkaden t Referred To Contact Ophthalmology Diagnoses Type 1 diabetes mellitus with hyperglycemia (HCC) Procedures [place] OFFICE/OUTPATIENT NEW HIGH MDM 60-74 MINUTES Tod Lr MD [address] [facility], [place] [address] [facility] [address] [place] [address] Referral ID Status Reason Start Date Expiration Date Visits Requested Visits Authorized [id number] Pending Review Specialty Services Required 05/09/2022 11/05/2022 1 1 [facility]arrative)No reason for referral information [facility] Work Phone: Summary Purpose Family History Relationship Condition Age at Onset Recorded Date/T bobby Unknown Family History?Cancer, - Unknown Fe ruary 2020 8:54pm Family History?Diabetes Unknown Febr uary 2020 8:54pm Advance Directives Documents on File Type Date Recorded Patient Pumper Gager Apprentice Expl anation DNR (Do Not Resuscitate) 05/11/2015 Date Activated Date Inactivated Comments 08/14/2022 3:43 PM 08/18/2022 5:10 PM Documents on File Type Date Recorded Patient Pumper Gager Apprentice Expl anation Advance Directives and Living Will Power of Spinner Cap Frame Latest Code Status on File Code Status Date Activated Date Inactivated Comments Full Code 01/05/2016 3:16 AM 01/06/2016 7:13 PM Full Code 09/12/2015 6:46 PM 09/15/2015 3:47 PM Documents on File Type Date Recorded Patient Pumper Gager Apprentice Expl anation ACP-Advance Directive ACP-Power of Spinner Cap Frame Latest Code Status on File Code Status Date Activated Date Inactivated Comments Full Code 08/14/2022 3:43 PM 08/18/2022 5:10 PM Documents on File Type Date Recorded Patient Pumper Gager Apprentice Expl anation DNR (Do Not Resuscitate) 05/11/2015 [...] Comments 08/14/2022 3:43 PM 08/18/2022 5:10 PM Advance Directive Response Recorded Date/ Time Do you have a Healthcare Power of Spinner Cap Frame? No August 28, 2024 2:21am Do you have a Healthcare Power of Spinner Cap Frame? No October 24, 2024 1:06pm Assessments Diagnosis Cervical radiculopathy Brachial neuritis or [...] 1pm Sepsis August 10, 2024 9:3 1pm Chief Complaint Admit Date DKA, SUSPECT SEPSIS, UGIB AND DAVEY WITH M ETOBOLIC August 10, 2024 9:31pm DKA, SUSPECT SEPSIS, UGIB AND DAVEY WITH M ETOBOLIC August 11, 2024 7:29am DKA, SUSPECT SEPSIS, UGIB AND DAVEY WITH M ETOBOLIC August 11, 2024 9:06am DKA, SUSPECT SEPSIS, UGIB AND DAVEY WITH M ETOBOLIC August 11, 2024 3:17pm DKA, SUSPECT SEPSIS, UGIB AND DAVEY WITH M ETOBOLIC August 12, 2024 7:32am DKA, SUSPECT SEPSIS, UGIB AND DAVEY WITH M ETOBOLIC August 12, 2024 9:26am DKA, SUSPECT SEPSIS, UGIB AND DAVEY WITH M ETOBOLIC August 13, 2024 7:29am DKA, SUSPECT SEPSIS, UGIB AND DAVEY WITH M ETOBOLIC August 13, 2024 8:09am DKA, SUSPECT SEPSIS, UGIB AND DAVEY WITH M ETOBOLIC August 14, 2024 8:54am DKA, SUSPECT SEPSIS, UGIB AND DAVEY WITH M ETOBOLIC August 14, 2024 9:51am DKA, SUSPECT SEPSIS, UGIB AND DAVEY WITH M ETOBOLIC August 14, 2024 3:46pm DKA, SUSPECT SEPSIS, UGIB AND DAVEY WITH M ETOBOLIC August 15, 2024 8:46am DKA, SUSPECT SEPSIS, UGIB AND DAVEY WITH M ETOBOLIC August 16, 2024 8:39am DKA, SUSPECT SEPSIS, UGIB AND DAVEY WITH M ETOBOLIC August 17, 2024 7:21am DKA, SUSPECT SEPSIS, UGIB AND DAVEY WITH M ETOBOLIC August 17, 2024 9:24am DKA, SUSPECT SEPSIS, UGIB AND DAVEY WITH M ETOBOLIC August 18, 2024 7:19am DKA, SUSPECT SEPSIS, UGIB AND DAVEY WITH M ETOBOLIC August 18, 2024 9:55am DKA, SUSPECT SEPSIS, UGIB AND DAVEY WITH M ETOBOLIC August 19, 2024 7:26am DKA, SUSPECT SEPSIS, UGIB AND DAVEY WITH M ETOBOLIC August 19, 2024 5:05pm DKA, SUSPECT SEPSIS, UGIB AND DAVEY WITH M ETOBOLIC August 20, 2024 7:24am DKA, SUSPECT SEPSIS, UGIB AND DAVEY WITH M ETOBOLIC August 20, 2024 3:42pm DKA, SUSPECT SEPSIS, UGIB AND DAVEY WITH M ETOBOLIC August 21, 2024 7:41am DKA, SUSPECT SEPSIS, UGIB AND DAVEY WITH M ETOBOLIC August 21, 2024 4:53pm DKA, SUSPECT SEPSIS, UGIB AND DAVEY WITH M ETOBOLIC August 22, 2024 11:00am DKA, SUSPECT SEPSIS, UGIB AND DAVEY WITH M ETOBOLIC August 23, 2024 5:17pm DKA, SUSPECT SEPSIS, UGIB AND DAVEY WITH M ETOBOLIC August 24, 2024 7:27am DKA, SUSPECT SEPSIS, UGIB AND DAVEY WITH M ETOBOLIC August 25, 2024 7:43am DKA, SUSPECT SEPSIS, UGIB AND DAVEY WITH M ETOBOLIC August 25, 2024 9:39am DKA, SUSPECT SEPSIS, UGIB AND DAVEY WITH M ETOBOLIC August 26, 2024 7:34am DKA, SUSPECT SEPSIS, UGIB AND DAVEY WITH M ETOBOLIC August 26, 2024 7:47am chest other August 28, 2024 2:20am chest other August 28, 2024 4:32am DIABETIC KETOACIDOSIS, NAUSEA AND VOMITI NG October 24, 2024 5:45pm Reason for Visit Admit Date DAVEY (acute kidney injury) August 10 9:31pm Acute metabolic encephalopathy July 9:31pm Diabetic ketoacidosis August 10, 2024 9 :31pm Gastrointestinal bleeding, upper July 282024 9:31pm Hyperkalemia August 10, 2024 9:3 1pm Hypotension August 10, 2024 9:3 1pm Leukocytosis August 10, 2024 9:3 1pm Sepsis August 10, 2024 9:3 1pm Abdominal pain October 24, 2024 5:45 pm DKA (diabetic ketoacidosis) October 24 025 5:45pm Nausea and vomiting October 24, 2024 5:45 pm Additional Source Comments (unrecognized sect ion and content) No Status Records FoundNo Status Records FoundNo Status Records FoundNo Status Records FoundNo Status Records Found INFORMATION SOURCE (unrecogn ized section and content) DATE CREATED AUTHOR 10/23/2017 [facility] DATE CREATED AUTHOR AUTHOR'S ORGANIZ ATION 01/31/2022 [facility] DATE CREATED AUTHOR AUTHOR'S ORGANIZ ATION 09/01/2024 [facility] DATE CREATED AUTHOR AUTHOR'S ORGANIZ ATION 09/15/2024 [facility] DATE CREATED AUTHOR AUTHOR'S ORGANIZ ATION 09/22/2024 [facility] Care Teams (unrecognized sec tion and content) Shiatsu Therapist Relationship Specialty Start Date End Date Tod Lr MD [address] [place] [address] PCP - General Family Medicine 10/20/14 Shiatsu Therapist Relationship Specialty Start Date End Date Tod Lr MD [address] [place] [address] PCP - General Family Medicine 10/20/14 Shiatsu Therapist Relationship Specialty Start Date End Date Tod Lr MD [address] [place] [address] PCP - General 10/20/14 Shiatsu Therapist Relationship Specialty Start Date End Date Tod Lr MD [address] [place] [address] PCP - General 10/20/14 Shiatsu Therapist Relationship Specialty Start Date End Date Tod Lr MD [address] [facility] [place] [address] PCP - General 10/20/14 Shiatsu Therapist Relationship Specialty Start Date End Date Tod Lr MD [address] [facility] [place] [address] PCP - General 10/20/14 Shiatsu Therapist Relationship Specialty Start Date End Date Tod Lr MD [address] [facility] [place] [address] PCP - General 10/20/14 Shiatsu Therapist Relationship Specialty Start Date End Date Tod Lr MD [address] [facility] [place] [address] PCP - General 10/20/14 Shiatsu Therapist Relationship Specialty Start Date End Date Tod Lr MD [address] [facility] [place] [address] PCP - General 10/20/14 Shiatsu Therapist Relationship Specialty Start Date End Date Tod Lr MD [facility] [place] [address] PCP - General 10/20/14 Shiatsu Therapist Relationship Specialty Start Date End Date Tod Lr MD [facility] [place] [address] PCP - General 10/20/14 Shiatsu Therapist Relationship Specialty Start Date End Date Tod Lr MD [facility] [place] [address] PCP - General 10/20/14 Shiatsu Therapist Relationship Specialty Start Date End Date Tod Lr MD [address] [place], [place] [address], [place] [address] PCP - General 10/20/14 Shiatsu Therapist Relationship Specialty Start Date End Date Tod Lr MD [facility] [place] [address] PCP - General 10/20/14 Shiatsu Therapist Relationship Specialty Start Date End Date Tod Lr MD [facility] [place] [address] PCP - General 10/20/14 Shiatsu Therapist Relationship Specialty Start Date End Date Tod Lr MD [address] [place], [place] [address] [address] PCP - General 10/20/14 Shiatsu Therapist Relationship Specialty Start Date End Date Tod Lr MD [address] [place] [address] PCP - General 10/20/14 Shiatsu Therapist Relationship Specialty Start Date End Date Tod Lr MD [address] [facility] [place] [address] PCP - General 10/20/14 Shiatsu Therapist Relationship Specialty Start Date End Date Tod Lr MD [address] [place] [address] [place] [address] PCP - General 10/20/14 Shiatsu Therapist Relationship Specialty Start Date End Date Tod Lr MD [facility] [place] [address] PCP - General 10/20/14 Shiatsu Therapist Relationship Specialty Start Date End Date Tod Lr MD [facility] [place] [address] PCP - General 10/20/14 Shiatsu Therapist Relationship Specialty Start Date End Date Tod Lr MD [facility] [place] [address] PCP - General 10/20/14 Shiatsu Therapist Relationship Specialty Start Date End Date Tod Lr MD [facility] [place] [address] PCP - General 10/20/14 Shiatsu Therapist Relationship Specialty Start Date End Date Tod Lr MD [facility] [place] [address] PCP - General 10/20/14 Shiatsu Therapist Relationship Specialty Start Date End Date Tod Lr MD [facility] [place] [address] PCP - General 10/20/14 Team Status: Active Member Role Status Dates No Primary Care Physician Primary Care Provider Active Team Status: Active Member Role Status Dates Dr. Jose Alfredo Valderrama DO Emergency Provider Active Start: August 10, 2024 No Primary Care Physician Primary Care Provider Active Start: August 10, 2024 Dr. Miki Abdi DO Admit Provider Active Start: August 10, 2024 Dr. Miki Abdi DO Attending Provider Active Start: August 10, 2024 Shiatsu Therapist Relationship Specialty Start Date End Date Tod Lr MD [facility] [place] [address] PCP - General 10/20/14 Team Status: Active Member Role/Relationship Status Dates Dr. Tod Lr MD Primary Care Provider Active Team Status: Inactive Member Role/Relationship Status Dates Dr. Jose Alfredo Valderrama DO Emergency Provider Active Start: August 10, 2024 End: August 26, 2024 Dr. Miki Abdi DO Admit Provider Active Start: August 10, 2024 End: August 26, 2024 Dr. Miki Abdi DO Other Provider Active Start: August 10, 2024 End: August 26, 2024 Dr. Tod Lr MD Primary Care Provider Active Start: August 10, 2024 End: August 26, 2024 Dr. Brandon Medrano MD Other Provider Active Start: August 10, 2024 End: August 26, 2024 Dr. Vera Joseph MD Other Provider Active Start: August 10, 2024 End: August 26, 2024 Dr. Miki Glover MD Attending Provider Active Start: August 10, 2024 End: August 26, 2024 Dr. Ranjan Negron DO Other Provider Active S tart: August 10, 2024 End: August 26, 2024 Dr. Gary Lezama MD Other Provider Active Start: August 10, 2024 End: August 26, 2024 Team Status: Active Member Role/Relationship Status Dates Dr. Jose Alfredo Valderrama DO Emergency Provider Active Start: August 11, 2024 No Primary Care Physician Primary Care Provider Active Start: August 11, 2024 Dr. Miki Abdi DO Admit Provider Active Start: August 11, 2024 Dr. Miki Abdi DO Other Provider Active Start: August 11, 2024 Dr. Brandon Medrano MD Referring Provider Active Start: August 11, 2024 Dr. Brandon Medrano MD Other Provider Active Start: August 11, 2024 Dr. James Christian MD Other Provider Active Start: August 11, 2024 Dr. Oskar Apple MD Other Provider Active Start: August 11, 2024 Dr. Edu August MD Other Provider Active Star t: August 11, 2024 Dr. Vero Landeros DO Attending Provider Active S tart: August 11, 2024 Dr. Vero Landeros DO Other Provider Active Start : August 11, 2024 Dr. Miki Mtz MD Other Provider Active Sta rt: August 11, 2024 Dr. Gaudencio Mann MD Other Provider Active St art: August 11, 2024 Dr. Duran Bahena MD Other Provider Active S tart: August 11, 2024 Dr. Abigail Darling MD Other Provider Active Start: August 11, 2024 Dr. Alvin Sousa MD Other Provider Active Start : August 11, 2024 Dr. Keith Robison MD Other Provider Active Start: August 11, 2024 Dr. Osei Talbot MD Other Provider Active Start : August 11, 2024 Dr. Amirah Honeycutt MD Other Provider Active Star t: August 11, 2024 Dr. Paulette Luther MD Other Provider Active Sta rt: August 11, 2024 Dr. Meryl Torres MD Other Provider Active Sta rt: August 11, 2024 Dr. Miguel Medellin MD Other Provider Active Star t: August 11, 2024 Dr. Gabriel Jo MD Other Provider Active St art: August 11, 2024 Dr. Daryl Dominguez MD Other Provider Active Star t: August 11, 2024 Dr. Ramos Ordaz DO Other Provider Active St art: August 11, 2024 Dr. Steffi Lion MD Other Provider Active Start: August 11, 2024 Dr. Tank Mackey MD Other Provider Active St art: August 11, 2024 Dr. Manuelito Herman DO Other Provider Active Start: August 11, 2024 Dr. Ulices Saucedo MD Other Provider Active Star t: August 11, 2024 Dr. Gregor Zuniga MD Other Provider Active Sta rt: August 11, 2024 Team Status: Active Member Role/Relationship Status Dates Dr. Jose Alfredo Valderrama DO Emergency Provider Active Start: August 11, 2024 No Primary Care Physician Primary Care Provider Active Start: August 11, 2024 Dr. Miki Abdi DO Admit Provider Active Start: August 11, 2024 Dr. Miki Abdi DO Other Provider Active Start: August 11, 2024 Dr. Brandon Medrano MD Attending Provider Active Start: August 11, 2024 Dr. Brandon Medrano MD Other Provider Active Start: August 11, 2024 Dr. James Christian MD Other Provider Active Start: August 11, 2024 Dr. Oskar Apple MD Other Provider Active Start: August 11, 2024 Dr. Edu August MD Other Provider Active Star t: August 11, 2024 Dr. Vero Landeros DO Other Provider Active Start : August 11, 2024 Dr. Miki Mtz MD Other Provider Active Sta rt: August 11, 2024 Dr. Gaudencio Mann MD Other Provider Active St art: August 11, 2024 Dr. Duran Bahena MD Other Provider Active S tart: August 11, 2024 Dr. Abigail Darling MD Other Provider Active Start: August 11, 2024 Dr. Alvin Sousa MD Other Provider Active Start : August 11, 2024 Dr. Keith Robison MD Other Provider Active Start: August 11, 2024 Dr. Osei Talbot MD Other Provider Active Start : August 11, 2024 Dr. Amirah Honeycutt MD Other Provider Active Star t: August 11, 2024 Dr. Paulette Luther MD Other Provider Active Sta rt: August 11, 2024 Dr. Meryl Torres MD Other Provider Active Sta rt: August 11, 2024 Dr. Miguel Medellin MD Other Provider Active Star t: August 11, 2024 Dr. Gabriel Jo MD Other Provider Active St art: August 11, 2024 Dr. Daryl Dominguez MD Other Provider Active Star t: August 11, 2024 Dr. Ramos Ordaz DO Other Provider Active St art: August 11, 2024 Dr. Steffi Lion MD Other Provider Active Start: August 11, 2024 Dr. Tank Mackey MD Other Provider Active St art: August 11, 2024 Dr. Manuelito Herman DO Other Provider Active Start: August 11, 2024 Dr. Ulices Saucedo MD Other Provider Active Star t: August 11, 2024 Dr. Gregor Zuniga MD Other Provider Active Sta rt: August 11, 2024 Team Status: Active Member Role/Relationship Status Dates Dr. Jose Alfredo Valderrama DO Emergency Provider Active Start: August 11, 2024 No Primary Care Physician Primary Care Provider Active Start: August 11, 2024 Dr. Miki Abdi DO Admit Provider Active Start: August 11, 2024 Dr. Miki Abdi DO Other Provider Active Start: August 11, 2024 Dr. Brandon Medrano MD Referring Provider Active Start: August 11, 2024 Dr. Brandon Medrano MD Other Provider Active Start: August 11, 2024 Dr. James Christian MD Other Provider Active Start: August 11, 2024 Dr. Oskar Apple MD Other Provider Active Start: August 11, 2024 Dr. Edu August MD Other Provider Active Star t: August 11, 2024 Dr. Vero Landeros DO Other Provider Active Start : August 11, 2024 Dr. Miki Mtz MD Other Provider Active Sta rt: August 11, 2024 Dr. Gaudencio Mann MD Other Provider Active St art: August 11, 2024 Dr. Duran Bahena MD Other Provider Active S tart: August 11, 2024 Dr. Abigail Darling MD Other Provider Active Start: August 11, 2024 Dr. Alvin Sousa MD Other Provider Active Start : August 11, 2024 Dr. Keith Robison MD Other Provider Active Start: August 11, 2024 Dr. Osei Talbot MD Other Provider Active Start : August 11, 2024 Dr. Amirah Honeycutt MD Other Provider Active Star t: August 11, 2024 Dr. Paulette Luther MD Other Provider Active Sta rt: August 11, 2024 Dr. Meryl Torres MD Other Provider Active Sta rt: August 11, 2024 Dr. Miguel Medellin MD Other Provider Active Star t: August 11, 2024 Dr. Gabriel Jo MD Other Provider Active St art: August 11, 2024 Dr. Daryl Dominguez MD Other Provider Active Star t: August 11, 2024 Dr. Ramos Ordaz DO Other Provider Active St art: August 11, 2024 Dr. Steffi Lion MD Other Provider Active Start: August 11, 2024 Dr. Tank Mackey MD Other Provider Active St art: August 11, 2024 Dr. Manuelito Herman DO Other Provider Active Start: August 11, 2024 Dr. Ulices Saucedo MD Other Provider Active Star t: August 11, 2024 Dr. Gregor Zuniga MD Other Provider Active Sta rt: August 11, 2024 Dr. Levon Graff DO Attending Provider Active Start: August 11, 2024 Team Status: Active Member Role/Relationship Status Dates Dr. Jose Alfredo Valderrama DO Emergency Provider Active Start: August 12, 2024 No Primary Care Physician Primary Care Provider Active Start: August 12, 2024 Dr. Miki Abdi DO Admit Provider Active Start: August 12, 2024 Dr. Miki Abdi DO Other Provider Active Start: August 12, 2024 Dr. Brandon Medrano MD Referring Provider Active Start: August 12, 2024 Dr. Brandon Merdano MD Other Provider Active Start: August 12, 2024 Dr. James Christian MD Other Provider Active Start: August 12, 2024 Dr. Oskar Apple MD Other Provider Active Start: August 12, 2024 Dr. Edu August MD Other Provider Active Star t: August 12, 2024 Dr. Vero Landeros DO Attending Provider Active S tart: August 12, 2024 Dr. Vero Landeros DO Other Provider Active Start : August 12, 2024 Dr. Miki Mtz MD Other Provider Active Sta rt: August 12, 2024 Dr. Gaudencio Mann MD Other Provider Active St art: August 12, 2024 Dr. Duran Bahena MD Other Provider Active S tart: August 12, 2024 Dr. Abigail Darling MD Other Provider Active Start: August 12, 2024 Dr. Alvin Sousa MD Other Provider Active Start : August 12, 2024 Dr. Keith Robison MD Other Provider Active Start: August 12, 2024 Dr. Osei Talbot MD Other Provider Active Start : August 12, 2024 Dr. Amirah Honeycutt MD Other Provider Active Star t: August 12, 2024 Dr. Paulette Luther MD Other Provider Active Sta rt: August 12, 2024 Dr. Meryl Torres MD Other Provider Active Sta rt: August 12, 2024 Dr. Miguel Medellin MD Other Provider Active Star t: August 12, 2024 Dr. Gabriel Jo MD Other Provider Active St art: August 12, 2024 Dr. Daryl Dominguez MD Other Provider Active Star t: August 12, 2024 Dr. Ramos Ordaz , Other Provider Active St art: August 12, 2024 Dr. Steffi Lion MD Other Provider Active Start: August 12, 2024 Dr. Tank Mackey MD Other Provider Active St art: August 12, 2024 Dr. Manuelito Herman DO Other Provider Active Start: August 12, 2024 Dr. Ulices Saucedo MD Other Provider Active Star t: August 12, 2024 Dr. Gregor Zuniga MD Other Provider Active Sta rt: August 12, 2024 Dr. Vera Joseph MD Other Provider Active Start: August 12, 2024 Team Status: Active Member Role/Relationship Status Dates Dr. Jose Alfredo Valderrama DO Emergency Provider Active Start: August 12, 2024 No Primary Care Physician Primary Care Provider Active Start: August 12, 2024 Dr. Miki Abdi DO Admit Provider Active Start: August 12, 2024 Dr. Miki Abdi DO Other Provider Active Start: August 12, 2024 Dr. Brandon Medrano MD Attending Provider Active Start: August 12, 2024 Dr. Brandon Medrano MD Other Provider Active Start: August 12, 2024 Dr. James Christian MD Other Provider Active Start: August 12, 2024 Dr. Oskar Apple MD Other Provider Active Start: August 12, 2024 Dr. Edu August MD Other Provider Active Star t: August 12, 2024 Dr. Vero Landeros DO Other Provider Active Start : August 12, 2024 Dr. Miki Mtz MD Other Provider Active Sta rt: August 12, 2024 Dr. Gaudencio Mann MD Other Provider Active St art: August 12, 2024 Dr. Duran Bahena MD Other Provider Active S tart: August 12, 2024 Dr. Abigail Darling MD Other Provider Active Start: August 12, 2024 Dr. Alvin Sousa MD Other Provider Active Start : August 12, 2024 Dr. Keith Robison MD Other Provider Active Start: August 12, 2024 Dr. Osei Talbot MD Other Provider Active Start : August 12, 2024 Dr. Amirah Honeycutt MD Other Provider Active Star t: August 12, 2024 Dr. Paulette Luther MD Other Provider Active Sta rt: August 12, 2024 Dr. Meryl Torres MD Other Provider Active Sta rt: August 12, 2024 Dr. Miguel Medellin MD Other Provider Active Star t: August 12, 2024 Dr. Gabriel Jo MD Other Provider Active St art: August 12, 2024 Dr. Daryl Dominguez MD Other Provider Active Star t: August 12, 2024 Dr. Ramos Ordaz DO Other Provider Active St art: August 12, 2024 Dr. Steffi Lion MD Other Provider Active Start: August 12, 2024 Dr. Tank Mackey MD Other Provider Active St art: August 12, 2024 Dr. Manuelito Herman DO Other Provider Active Start: August 12, 2024 Dr. Ulices Saucedo MD Other Provider Active Star t: August 12, 2024 Dr. Gregor Zuniga MD Other Provider Active Sta rt: August 12, 2024 Dr. Vera Joseph MD Other Provider Active Start: August 12, 2024 Team Status: Active Member Role/Relationship Status Dates Dr. Tod Lr MD Primary Care Provider Active Start: August 12, 2024 Dr. Levon Graff DO Attending Provider Active Start: August 12, 2024 Dr. Brandon Medrano MD Referring Provider Active Start: August 12, 2024 Team Status: Active Member Role/Relationship Status Dates Dr. Jose Alfredo Valderrama DO Emergency Provider Active Start: August 13, 2024 Dr. Miki Abdi DO Admit Provider Active Start: August 13, 2024 Dr. Miki Abdi DO Other Provider Active Start: August 13, 2024 Dr. Brandon Medrano MD Referring Provider Active Start: August 13, 2024 Dr. Brandon Medrano MD Other Provider Active Start: August 13, 2024 Dr. James Christian MD Other Provider Active Start: August 13, 2024 Dr. Oskar Apple MD Other Provider Active Start: August 13, 2024 Dr. Edu August MD Other Provider Active Star t: August 13, 2024 Dr. Vero Landeros DO Attending Provider Active S tart: August 13, 2024 Dr. Vero Landeros DO Other Provider Active Start : August 13, 2024 Dr. Miki Mtz MD Other Provider Active Sta rt: August 13, 2024 Dr. Gaudencio Mann MD Other Provider Active St art: August 13, 2024 Dr. Duran Bahena MD Other Provider Active S tart: August 13, 2024 Dr. Abigail Darling MD Other Provider Active Start: August 13, 2024 Dr. Alvin Sousa MD Other Provider Active Start : August 13, 2024 Dr. Keith Robison MD Other Provider Active Start: August 13, 2024 Dr. Osei Talbot MD Other Provider Active Start : August 13, 2024 Dr. Amirah Honeycutt MD Other Provider Active Star t: August 13, 2024 Dr. Paulette Luther MD Other Provider Active Sta rt: August 13, 2024 Dr. Meryl Torres MD Other Provider Active Sta rt: August 13, 2024 Dr. Miguel Medellin MD Other Provider Active Star t: August 13, 2024 Dr. Gabriel Jo MD Other Provider Active St art: August 13, 2024 Dr. Daryl Dominguez MD Other Provider Active Star t: August 13, 2024 Dr. Ramos Ordaz DO Other Provider Active St art: August 13, 2024 Dr. Steffi Lion MD Other Provider Active Start: August 13, 2024 Dr. Tank Mackey MD Other Provider Active St art: August 13, 2024 Dr. Manuelito Herman DO Other Provider Active Start: August 13, 2024 Dr. Ulices Saucedo MD Other Provider Active Star t: August 13, 2024 Dr. Gregor Zuniga MD Other Provider Active Sta rt: August 13, 2024 Dr. Vera Joseph MD Other Provider Active Start: August 13, 2024 Dr. Tod Lr MD Primary Care Provider Active Start: August 13, 2024 Team Status: Active Member Role/Relationship Status Dates Dr. Jose Alfredo Valderrama DO Emergency Provider Active Start: August 13, 2024 Dr. Miki Abdi DO Admit Provider Active Start: August 13, 2024 Dr. Miki Abdi DO Other Provider Active Start: August 13, 2024 Dr. Brandon Medrano MD Attending Provider Active Start: August 13, 2024 Dr. Brandon Medrano MD Other Provider Active Start: August 13, 2024 Dr. James Christian MD Other Provider Active Start: August 13, 2024 Dr. Oskar Apple MD Other Provider Active Start: August 13, 2024 Dr. Edu August MD Other Provider Active Star t: August 13, 2024 Dr. Vero Landeros DO Other Provider Active Start : August 13, 2024 Dr. Miki Mtz MD Other Provider Active Sta rt: August 13, 2024 Dr. Gaudencio Mann MD Other Provider Active St art: August 13, 2024 Dr. Duran Bahena MD Other Provider Active S tart: August 13, 2024 Dr. Abigail Darling MD Other Provider Active Start: August 13, 2024 Dr. Alvin Sousa MD Other Provider Active Start : August 13, 2024 Dr. Keith Robison MD Other Provider Active Start: August 13, 2024 Dr. Osei Talbot MD Other Provider Active Start : August 13, 2024 Dr. Amirah Honeycutt MD Other Provider Active Star t: August 13, 2024 Dr. Paulette Luther MD Other Provider Active Sta rt: August 13, 2024 Dr. Meryl Torres MD Other Provider Active Sta rt: August 13, 2024 Dr. Miguel Medellin MD Other Provider Active Star t: August 13, 2024 Dr. Gabriel Jo MD Other Provider Active St art: August 13, 2024 Dr. Daryl Dominguez MD Other Provider Active Star t: August 13, 2024 Dr. Ramos Ordaz , Other Provider Active St art: August 13, 2024 Dr. Steffi Lion MD Other Provider Active Start: August 13, 2024 Dr. Tank Mackey MD Other Provider Active St art: August 13, 2024 Dr. Manuelito Herman , Other Provider Active Start: August 13, 2024 Dr. Ulices Saucedo MD Other Provider Active Star t: August 13, 2024 Dr. Gregor Zuniga MD Other Provider Active Sta rt: August 13, 2024 Dr. Vera Joseph MD Other Provider Active Start: August 13, 2024 Dr. Tod Lr MD Primary Care Provider Active Start: August 13, 2024 Team Status: Active Member Role/Relationship Status Dates Dr. Jose Alfredo Valderrama DO Emergency Provider Active Start: August 14, 2024 Dr. Miki Abdi DO Admit Provider Active Start: August 14, 2024 Dr. Miki Abdi DO Other Provider Active Start: August 14, 2024 Dr. Brandon Medrano MD Referring Provider Active Start: August 14, 2024 Dr. Brandon Medrano MD Other Provider Active Start: August 14, 2024 Dr. Jaems Christian MD Other Provider Active Start: August 14, 2024 Dr. Oskar Apple MD Other Provider Active Start: August 14, 2024 Dr. Edu August MD Other Provider Active Star t: August 14, 2024 Dr. Vero Landeros DO Attending Provider Active S tart: August 14, 2024 Dr. Vero Landeros DO Other Provider Active Start : August 14, 2024 Dr. Miki Mtz MD Other Provider Active Sta rt: August 14, 2024 Dr. Gaudenico Mann MD Other Provider Active St art: August 14, 2024 Dr. Duran Bahena MD Other Provider Active S tart: August 14, 2024 Dr. Abigail Darling MD Other Provider Active Start: August 14, 2024 Dr. Alvin Sousa MD Other Provider Active Start : August 14, 2024 Dr. Keith Robison MD Other Provider Active Start: August 14, 2024 Dr. Osei Talbot MD Other Provider Active Start : August 14, 2024 Dr. Amirha Honeycutt MD Other Provider Active Star t: August 14, 2024 Dr. Paulette Luther MD Other Provider Active Sta rt: August 14, 2024 Dr. Meryl Torres MD Other Provider Active Sta rt: August 14, 2024 Dr. Miguel Medellin MD Other Provider Active Star t: August 14, 2024 Dr. Gabriel Jo MD Other Provider Active St art: August 14, 2024 Dr. Daryl Dominguez MD Other Provider Active Star t: August 14, 2024 Dr. Ramos Ordaz DO Other Provider Active St art: August 14, 2024 Dr. Steffi Lion MD Other Provider Active Start: August 14, 2024 Dr. Tank Mackey MD Other Provider Active St art: August 14, 2024 Dr. Manuelito Herman DO Other Provider Active Start: August 14, 2024 Dr. Ulices Saucedo MD Other Provider Active Star t: August 14, 2024 Dr. Gregor Zuniga MD Other Provider Active Sta rt: August 14, 2024 Dr. Vera Joseph MD Other Provider Active Start: August 14, 2024 Dr. Tod Lr MD Primary Care Provider Active Start: August 14, 2024 Team Status: Active Member Role/Relationship Status Dates Dr. Jose Alfredo Valderrama DO Emergency Provider Active Start: August 14, 2024 Dr. Miki Abdi DO Admit Provider Active Start: August 14, 2024 Dr. Miki Abdi DO Other Provider Active Start: August 14, 2024 Dr. Brandon Medrano MD Attending Provider Active Start: August 14, 2024 Dr. Brandon Medrano MD Other Provider Active Start: August 14, 2024 Dr. James Christian MD Other Provider Active Start: August 14, 2024 Dr. Oskar Apple MD Other Provider Active Start: August 14, 2024 Dr. Edu August MD Other Provider Active Star t: August 14, 2024 Dr. Vero Landeros , Other Provider Active Start : August 14, 2024 Dr. Miki Mtz MD Other Provider Active Sta rt: August 14, 2024 Dr. Gaudencio Mann MD Other Provider Active St art: August 14, 2024 Dr. Duran Bahena MD Other Provider Active S tart: August 14, 2024 Dr. Abigail Darling MD Other Provider Active Start: August 14, 2024 Dr. Alvin Sousa MD Other Provider Active Start : August 14, 2024 Dr. Keith Robison MD Other Provider Active Start: August 14, 2024 Dr. Osei Talbot MD Other Provider Active Start : August 14, 2024 Dr. Amirah Honeycutt MD Other Provider Active Star t: August 14, 2024 Dr. Paulette Luther MD Other Provider Active Sta rt: August 14, 2024 Dr. Meryl Torres MD Other Provider Active Sta rt: August 14, 2024 Dr. Miguel Medellin MD Other Provider Active Star t: August 14, 2024 Dr. Gabriel Jo MD Other Provider Active St art: August 14, 2024 Dr. Daryl Dominguez MD Other Provider Active Star t: August 14, 2024 Dr. Ramos Ordaz DO Other Provider Active St art: August 14, 2024 Dr. Steffi Lion MD Other Provider Active Start: August 14, 2024 Dr. Tank Mackey MD Other Provider Active St art: August 14, 2024 Dr. Manuelito Herman DO Other Provider Active Start: August 14, 2024 Dr. Ulices Saucedo MD Other Provider Active Star t: August 14, 2024 Dr. Gregor Zuniga MD Other Provider Active Sta rt: August 14, 2024 Dr. Vera Joseph MD Other Provider Active Start: August 14, 2024 Dr. Tod Lr MD Primary Care Provider Active Start: August 14, 2024 Team Status: Active Member Role/Relationship Status Dates Dr. Jose Alfredo Valderrama DO Emergency Provider Active Start: August 14, 2024 Dr. Miki Abdi DO Admit Provider Active Start: August 14, 2024 Dr. Miki Abdi DO Other Provider Active Start: August 14, 2024 Dr. Brandon Medrano MD Referring Provider Active Start: August 14, 2024 Dr. Brandon Medrano MD Other Provider Active Start: August 14, 2024 Dr. James Christian MD Other Provider Active Start: August 14, 2024 Dr. Oskar Apple MD Other Provider Active Start: August 14, 2024 Dr. Edu August MD Other Provider Active Star t: August 14, 2024 Dr. Vero Landeros DO Other Provider Active Start : August 14, 2024 Dr. Miki Mtz MD Other Provider Active Sta rt: August 14, 2024 Dr. Gaudencio Mann MD Other Provider Active St art: August 14, 2024 Dr. Duran Bahena MD Other Provider Active S tart: August 14, 2024 Dr. Abigail Darling MD Other Provider Active Start: August 14, 2024 Dr. Alvin Sousa MD Other Provider Active Start : August 14, 2024 Dr. Keith Robison MD Other Provider Active Start: August 14, 2024 Dr. Osei Talbot MD Other Provider Active Start : August 14, 2024 Dr. Amirah Honeycutt MD Other Provider Active Star t: August 14, 2024 Dr. Paulette Luther MD Other Provider Active Sta rt: August 14, 2024 Dr. Meryl Torres MD Other Provider Active Sta rt: August 14, 2024 Dr. Miguel Medellin MD Other Provider Active Star t: August 14, 2024 Dr. Gabriel Jo MD Other Provider Active St art: August 14, 2024 Dr. Daryl Dominguez MD Other Provider Active Star t: August 14, 2024 Dr. Ramos Ordaz DO Other Provider Active St art: August 14, 2024 Dr. Steffi Lion MD Other Provider Active Start: August 14, 2024 Dr. Tank Mackey MD Other Provider Active St art: August 14, 2024 Dr. Manuelito Herman DO Other Provider Active Start: August 14, 2024 Dr. Ulices Saucedo MD Other Provider Active Star t: August 14, 2024 Dr. Gregor Zuniga MD Other Provider Active Sta rt: August 14, 2024 Dr. Vera Joseph MD Other Provider Active Start: August 14, 2024 Dr. Tod Lr MD Primary Care Provider Active Start: August 14, 2024 Dr. Levon Graff DO Attending Provider Active Start: August 14, 2024 Team Status: Active Member Role/Relationship Status Dates Dr. Jose Alfredo Valderrama DO Emergency Provider Active Start: August 15, 2024 Dr. Miki Abdi DO Admit Provider Active Start: August 15, 2024 Dr. Miki Abdi DO Other Provider Active Start: August 15, 2024 Dr. Brandon Medrano MD Attending Provider Active Start: August 15, 2024 Dr. Brandon Medrano MD Other Provider Active Start: August 15, 2024 Dr. James Christian MD Other Provider Active Start: August 15, 2024 Dr. Oskar Apple MD Other Provider Active Start: August 15, 2024 Dr. Edu August MD Other Provider Active Star t: August 15, 2024 Dr. Vero Landeros DO Other Provider Active Start : August 15, 2024 Dr. Miki Mtz MD Other Provider Active Sta rt: August 15, 2024 Dr. Gaudencio Mann MD Other Provider Active St art: August 15, 2024 Dr. Duran Bahena MD Other Provider Active S tart: August 15, 2024 Dr. Abigail Darling MD Other Provider Active Start: August 15, 2024 Dr. Alvin Sousa MD Other Provider Active Start : August 15, 2024 Dr. Keith Robison MD Other Provider Active Start: August 15, 2024 Dr. Osei Talbot MD Other Provider Active Start : August 15, 2024 Dr. Amirah Honeycutt MD Other Provider Active Star t: August 15, 2024 Dr. Paulette Luther MD Other Provider Active Sta rt: August 15, 2024 Dr. Meryl Torres MD Other Provider Active Sta rt: August 15, 2024 Dr. Miguel Medellin MD Other Provider Active Star t: August 15, 2024 Dr. Gabriel Jo MD Other Provider Active St art: August 15, 2024 Dr. Daryl Dominguez MD Other Provider Active Star t: August 15, 2024 Dr. Ramos Ordaz DO Other Provider Active St art: August 15, 2024 Dr. Steffi Lion MD Other Provider Active Start: August 15, 2024 Dr. Tank Mackey MD Other Provider Active St art: August 15, 2024 Dr. Manuelito Herman DO Other Provider Active Start: August 15, 2024 Dr. Ulices Saucedo MD Other Provider Active Star t: August 15, 2024 Dr. Gregor Zuniga MD Other Provider Active Sta rt: August 15, 2024 Dr. Vera Joseph MD Other Provider Active Start: August 15, 2024 Dr. Tod Lr MD Primary Care Provider Active Start: August 15, 2024 Team Status: Active Member Role/Relationship Status Dates Dr. Tod Lr MD Primary Care Provider Active Start: August 15, 2024 Dr. Scottie Martinez MD Attending Provider Active S tart: August 15, 2024 Team Status: Active Member Role/Relationship Status Dates Dr. Jose Alfredo Valderrama DO Emergency Provider Active Start: August 16, 2024 Dr. Miki Abdi DO Admit Provider Active Start: August 16, 2024 Dr. Miki Abdi DO Other Provider Active Start: August 16, 2024 Dr. Brandon Medrano MD Attending Provider Active Start: August 16, 2024 Dr. Brandon Medrano MD Other Provider Active Start: August 16, 2024 Dr. James Christian MD Other Provider Active Start: August 16, 2024 Dr. Oskar Apple MD Other Provider Active Start: August 16, 2024 Dr. Edu August MD Other Provider Active Star t: August 16, 2024 Dr. Vero Landeros DO Other Provider Active Start : August 16, 2024 Dr. Miki Mtz MD Other Provider Active Sta rt: August 16, 2024 Dr. Gaudencio Mann MD Other Provider Active St art: August 16, 2024 Dr. Duran Bahena MD Other Provider Active S tart: August 16, 2024 Dr. Abigail Dalring MD Other Provider Active Start: August 16, 2024 Dr. Alvin Sousa MD Other Provider Active Start : August 16, 2024 Dr. Keith Robison MD Other Provider Active Start: August 16, 2024 Dr. Osei Talbot MD Other Provider Active Start : August 16, 2024 Dr. Amirah Honeycutt MD Other Provider Active Star t: August 16, 2024 Dr. Paulette Luther MD Other Provider Active Sta rt: August 16, 2024 Dr. Meryl Torres MD Other Provider Active Sta rt: August 16, 2024 Dr. Miguel Medellin MD Other Provider Active Star t: August 16, 2024 Dr. Gabriel Jo MD Other Provider Active St art: August 16, 2024 Dr. Daryl Dominguez MD Other Provider Active Star t: August 16, 2024 Dr. Ramos Ordaz DO Other Provider Active St art: August 16, 2024 Dr. Steffi Lion MD Other Provider Active Start: August 16, 2024 Dr. Tank Mackey MD Other Provider Active St art: August 16, 2024 Dr. Manuelito Herman DO Other Provider Active Start: August 16, 2024 Dr. Ulices Saucedo MD Other Provider Active Star t: August 16, 2024 Dr. Gregor Zuniga MD Other Provider Active Sta rt: August 16, 2024 Dr. Vera Joseph MD Other Provider Active Start: August 16, 2024 Dr. Tod Lr MD Primary Care Provider Active Start: August 16, 2024 Team Status: Active Member Role/Relationship Status Dates Dr. Jose Alfredo Valderrama DO Emergency Provider Active Start: August 17, 2024 Dr. Miki Abdi DO Admit Provider Active Start: August 17, 2024 Dr. Miki Abdi DO Other Provider Active Start: August 17, 2024 Dr. James Christian MD Other Provider Active Start: August 17, 2024 Dr. Oskar Apple MD Other Provider Active Start: August 17, 2024 Dr. Edu August MD Other Provider Active Star t: August 17, 2024 Dr. Vero Landeros , Attending Provider Active S tart: August 17, 2024 Dr. Vero Landeros , Other Provider Active Start : August 17, 2024 Dr. Miki Mtz MD Other Provider Active Sta rt: August 17, 2024 Dr. Gaudencio Mann MD Other Provider Active St art: August 17, 2024 Dr. Duran Bahena MD Other Provider Active S tart: August 17, 2024 Dr. Abigail Darling MD Other Provider Active Start: August 17, 2024 Dr. Alvin Sousa MD Other Provider Active Start : August 17, 2024 Dr. Keith Robison MD Other Provider Active Start: August 17, 2024 Dr. Osei Talbot MD Other Provider Active Start : August 17, 2024 Dr. Amirah Honeycutt MD Other Provider Active Star t: August 17, 2024 Dr. Paulette Luther MD Other Provider Active Sta rt: August 17, 2024 Dr. Meryl Torres MD Other Provider Active Sta rt: August 17, 2024 Dr. Miguel Medellin MD Other Provider Active Star t: August 17, 2024 Dr. Gabriel Jo MD Other Provider Active St art: August 17, 2024 Dr. Daryl Dominguez MD Other Provider Active Star t: August 17, 2024 Dr. Ramos Ordaz DO Other Provider Active St art: August 17, 2024 Dr. Steffi Lion MD Other Provider Active Start: August 17, 2024 Dr. Tank Mackey MD Other Provider Active St art: August 17, 2024 Dr. Manuelito Herman DO Other Provider Active Start: August 17, 2024 Dr. Ulices Saucedo MD Other Provider Active Star t: August 17, 2024 Dr. Gregor Zuniga MD Other Provider Active Sta rt: August 17, 2024 Dr. Vera Joseph MD Other Provider Active Start: August 17, 2024 Dr. Tod Lr MD Primary Care Provider Active Start: August 17, 2024 Dr. Ranjan Negron DO Referring Provider Active Start: August 17, 2024 Dr. Ranjan Negron DO Other Provider Active S tart: August 17, 2024 Dr. Brandon Medrano MD Other Provider Active Start: August 17, 2024 Team Status: Active Member Role/Relationship Status Dates Dr. Jose Alfredo Valderrama , Emergency Provider Active Start: August 17, 2024 Dr. Miki Abdi DO Admit Provider Active Start: August 17, 2024 Dr. Miki Abdi DO Other Provider Active Start: August 17, 2024 Dr. James Christian MD Other Provider Active Start: August 17, 2024 Dr. Oskar Apple MD Other Provider Active Start: August 17, 2024 Dr. Edu August MD Other Provider Active Star t: August 17, 2024 Dr. Vero Landeros , Other Provider Active Start : August 17, 2024 Dr. Miki Mtz MD Other Provider Active Sta rt: August 17, 2024 Dr. Gaudencio Mann MD Other Provider Active St art: August 17, 2024 Dr. Duran Bahena MD Other Provider Active S tart: August 17, 2024 Dr. Abigail Darling MD Other Provider Active Start: August 17, 2024 Dr. Alvin Sousa MD Other Provider Active Start : August 17, 2024 Dr. Keith Robison MD Other Provider Active Start: August 17, 2024 Dr. Osei Talbot MD Other Provider Active Start : August 17, 2024 Dr. Amirah Honeycutt MD Other Provider Active Star t: August 17, 2024 Dr. Paulette Luther MD Other Provider Active Sta rt: August 17, 2024 Dr. Meryl Torres MD Other Provider Active Sta rt: August 17, 2024 Dr. Miguel Medellin MD Other Provider Active Star t: August 17, 2024 Dr. Gabriel Jo MD Other Provider Active St art: August 17, 2024 Dr. Daryl Dominguez MD Other Provider Active Star t: August 17, 2024 Dr. Ramos Ordaz DO Other Provider Active St art: August 17, 2024 Dr. Steffi Lion MD Other Provider Active Start: August 17, 2024 Dr. Tank Mackey MD Other Provider Active St art: August 17, 2024 Dr. Manuelito Herman DO Other Provider Active Start: August 17, 2024 Dr. Ulices Saucedo MD Other Provider Active Star t: August 17, 2024 Dr. Gregor Zuniga MD Other Provider Active Sta rt: August 17, 2024 Dr. Vera Joseph MD Other Provider Active Start: August 17, 2024 Dr. Tod Lr MD Primary Care Provider Active Start: August 17, 2024 Dr. Ranjan Negron DO Attending Provider Active Start: August 17, 2024 Dr. Ranjan Negron , Other Provider Active S tart: August 17, 2024 Dr. Brandon Medrano MD Other Provider Active Start: August 17, 2024 Team Status: Active Member Role/Relationship Status Dates Dr. Jose Alfredo Valderrama DO Emergency Provider Active Start: August 18, 2024 Dr. Miki Abdi DO Admit Provider Active Start: August 18, 2024 Dr. Miki Abdi DO Other Provider Active Start: August 18, 2024 Dr. James Christian MD Other Provider Active Start: August 18, 2024 Dr. Oskar Apple MD Other Provider Active Start: August 18, 2024 Dr. Edu August MD Other Provider Active Star t: August 18, 2024 Dr. Vero Landeros DO Attending Provider Active S tart: August 18, 2024 Dr. Vero Landeros DO Other Provider Active Start : August 18, 2024 Dr. Miki Mtz MD Other Provider Active Sta rt: August 18, 2024 Dr. Gaudencio Mann MD Other Provider Active St art: August 18, 2024 Dr. Duran Bahena MD Other Provider Active S tart: August 18, 2024 Dr. Abigail Darling MD Other Provider Active Start: August 18, 2024 Dr. Alvin Sousa MD Other Provider Active Start : August 18, 2024 Dr. Keith Robison MD Other Provider Active Start: August 18, 2024 Dr. Osei Talbot MD Other Provider Active Start : August 18, 2024 Dr. Amirah Honeycutt MD Other Provider Active Star t: August 18, 2024 Dr. Paulette Luther MD Other Provider Active Sta rt: August 18, 2024 Dr. Meryl Torres MD Other Provider Active Sta rt: August 18, 2024 Dr. Miguel Medellin MD Other Provider Active Star t: August 18, 2024 Dr. Gabriel Jo MD Other Provider Active St art: August 18, 2024 Dr. Daryl Dominguez MD Other Provider Active Star t: August 18, 2024 Dr. Ramos Ordaz , Other Provider Active St art: August 18, 2024 Dr. Steffi Lion MD Other Provider Active Start: August 18, 2024 Dr. Tank Mackey MD Other Provider Active St art: August 18, 2024 Dr. Manuelito Herman , Other Provider Active Start: August 18, 2024 Dr. Ulices Saucedo MD Other Provider Active Star t: August 18, 2024 Dr. Gregor Zuniga MD Other Provider Active Sta rt: August 18, 2024 Dr. Vera Joseph MD Other Provider Active Start: August 18, 2024 Dr. Tod Lr MD Primary Care Provider Active Start: August 18, 2024 Dr. Ranjan Negron DO Referring Provider Active Start: August 18, 2024 Dr. Ranjan Negron DO Other Provider Active S tart: August 18, 2024 Dr. Brandon Medrano MD Other Provider Active Start: August 18, 2024 Team Status: Active Member Role/Relationship Status Dates Dr. Jose Alfredo Valderrama DO Emergency Provider Active Start: August 18, 2024 Dr. Miki Abdi DO Admit Provider Active Start: August 18, 2024 Dr. Miki Abdi DO Other Provider Active Start: August 18, 2024 Dr. James Christian MD Other Provider Active Start: August 18, 2024 Dr. Oskar Apple MD Other Provider Active Start: August 18, 2024 Dr. Edu August MD Other Provider Active Star t: August 18, 2024 Dr. Vero Landeros , Other Provider Active Start : August 18, 2024 Dr. Miki Mtz MD Other Provider Active Sta rt: August 18, 2024 Dr. Gaudencio Mann MD Other Provider Active St art: August 18, 2024 Dr. Duran Bahena MD Other Provider Active S tart: August 18, 2024 Dr. Abigail Darling MD Other Provider Active Start: August 18, 2024 Dr. Alvin Sousa MD Other Provider Active Start : August 18, 2024 Dr. Keith Robison MD Other Provider Active Start: August 18, 2024 Dr. Osei Talbot MD Other Provider Active Start : August 18, 2024 Dr. Amirah Honeycutt MD Other Provider Active Star t: August 18, 2024 Dr. Paulette Luther MD Other Provider Active Sta rt: August 18, 2024 Dr. Meryl Torres MD Other Provider Active Sta rt: August 18, 2024 Dr. Miguel Medellin MD Other Provider Active Star t: August 18, 2024 Dr. Gabriel Jo MD Other Provider Active St art: August 18, 2024 Dr. Daryl Dominguez MD Other Provider Active Star t: August 18, 2024 Dr. Ramos Ordaz DO Other Provider Active St art: August 18, 2024 Dr. Steffi Lion MD Other Provider Active Start: August 18, 2024 Dr. Tank Mackey MD Other Provider Active St art: August 18, 2024 Dr. Manuelito Herman DO Other Provider Active Start: August 18, 2024 Dr. Ulices Saucedo MD Other Provider Active Star t: August 18, 2024 Dr. Gregor Zuniga MD Other Provider Active Sta rt: August 18, 2024 Dr. Vera Joseph MD Other Provider Active Start: August 18, 2024 Dr. Tod Lr MD Primary Care Provider Active Start: August 18, 2024 Dr. Ranjan Negron DO Attending Provider Active Start: August 18, 2024 Dr. Ranjan Negron DO Other Provider Active S tart: August 18, 2024 Dr. Brandon Medrano MD Other Provider Active Start: August 18, 2024 Team Status: Active Member Role/Relationship Status Dates Dr. Jose Alfredo Valderrama DO Emergency Provider Active Start: August 19, 2024 Dr. Miki Abdi DO Admit Provider Active Start: August 19, 2024 Dr. Miki Abdi DO Other Provider Active Start: August 19, 2024 Dr. James Christian MD Other Provider Active Start: August 19, 2024 Dr. Oskar Apple MD Other Provider Active Start: August 19, 2024 Dr. Edu August MD Other Provider Active Star t: August 19, 2024 Dr. Vero Landeros , Attending Provider Active S tart: August 19, 2024 Dr. Vero Landeros , Other Provider Active Start : August 19, 2024 Dr. Miki Mtz MD Other Provider Active Sta rt: August 19, 2024 Dr. Gaudencio Mann MD Other Provider Active St art: August 19, 2024 Dr. Duran Bahena MD Other Provider Active S tart: August 19, 2024 Dr. Abigail Darling MD Other Provider Active Start: August 19, 2024 Dr. Alvin Sousa MD Other Provider Active Start : August 19, 2024 Dr. Keith Robison MD Other Provider Active Start: August 19, 2024 Dr. Osei Talbot MD Other Provider Active Start : August 19, 2024 Dr. Amirah Honeycutt MD Other Provider Active Star t: August 19, 2024 Dr. Paulette Luther MD Other Provider Active Sta rt: August 19, 2024 Dr. Meryl Torres MD Other Provider Active Sta rt: August 19, 2024 Dr. Miguel Medellin MD Other Provider Active Star t: August 19, 2024 Dr. Gabriel Jo MD Other Provider Active St art: August 19, 2024 Dr. Daryl Dominguez MD Other Provider Active Star t: August 19, 2024 Dr. Ramos Ordaz , Other Provider Active St art: August 19, 2024 Dr. Steffi Lion MD Other Provider Active Start: August 19, 2024 Dr. Tank Mackey MD Other Provider Active St art: August 19, 2024 Dr. Manuelito Herman DO Other Provider Active Start: August 19, 2024 Dr. Ulices Saucedo MD Other Provider Active Star t: August 19, 2024 Dr. Gregor Zuniga MD Other Provider Active Sta rt: August 19, 2024 Dr. Vera Joseph MD Other Provider Active Start: August 19, 2024 Dr. Tod Lr MD Primary Care Provider Active Start: August 19, 2024 Dr. Ranjan Negron , Referring Provider Active Start: August 19, 2024 Dr. Ranjan Negron , Other Provider Active S tart: August 19, 2024 Dr. Brandon Medrano MD Other Provider Active Start: August 19, 2024 Team Status: Active Member Role/Relationship Status Dates Dr. Jose Alfredo Valderrama DO Emergency Provider Active Start: August 19, 2024 Dr. Miki Abdi DO Admit Provider Active Start: August 19, 2024 Dr. Miki Abdi DO Other Provider Active Start: August 19, 2024 Dr. James Christian MD Other Provider Active Start: August 19, 2024 Dr. Oskar Apple MD Other Provider Active Start: August 19, 2024 Dr. Edu August MD Other Provider Active Star t: August 19, 2024 Dr. Vero Landeros , Other Provider Active Start : August 19, 2024 Dr. Miki Mtz MD Other Provider Active Sta rt: August 19, 2024 Dr. Gaudencio Mann MD Other Provider Active St art: August 19, 2024 Dr. Duran Bahena MD Other Provider Active S tart: August 19, 2024 Dr. Abigail Darling MD Other Provider Active Start: August 19, 2024 Dr. Alvin Sousa MD Other Provider Active Start : August 19, 2024 Dr. Keith Robison MD Other Provider Active Start: August 19, 2024 Dr. Osei Talbot MD Other Provider Active Start : August 19, 2024 Dr. Amirah Honeycutt MD Other Provider Active Star t: August 19, 2024 Dr. Paulette Luther MD Other Provider Active Sta rt: August 19, 2024 Dr. Meryl Torres MD Other Provider Active Sta rt: August 19, 2024 Dr. Miguel Medellin MD Other Provider Active Star t: August 19, 2024 Dr. Gabriel Jo MD Other Provider Active St art: August 19, 2024 Dr. Daryl Dominguez MD Other Provider Active Star t: August 19, 2024 Dr. Ramos Ordaz , Other Provider Active St art: August 19, 2024 Dr. Steffi Lino MD Other Provider Active Start: August 19, 2024 Dr. Tank Mackey MD Other Provider Active St art: August 19, 2024 Dr. Manuelito Herman DO Other Provider Active Start: August 19, 2024 Dr. Ulices Saucedo MD Other Provider Active Star t: August 19, 2024 Dr. Gregor Zuniga MD Other Provider Active Sta rt: August 19, 2024 Dr. Vera Joseph MD Other Provider Active Start: August 19, 2024 Dr. Tod Lr MD Primary Care Provider Active Start: August 19, 2024 Dr. Ranjan Negron DO Attending Provider Active Start: August 19, 2024 Dr. Ranjan Negron DO Other Provider Active S tart: August 19, 2024 Dr. Brandon Medrano MD Other Provider Active Start: August 19, 2024 Team Status: Active Member Role/Relationship Status Dates Dr. Jose Alfredo Valderrama DO Emergency Provider Active Start: August 20, 2024 Dr. Miki Abdi DO Admit Provider Active Start: August 20, 2024 Dr. Miki Abdi DO Other Provider Active Start: August 20, 2024 Dr. Jaems Christian MD Other Provider Active Start: August 20, 2024 Dr. Oskar Apple MD Other Provider Active Start: August 20, 2024 Dr. Edu August MD Other Provider Active Star t: August 20, 2024 Dr. Vero Landeros DO Attending Provider Active S tart: August 20, 2024 Dr. Vero Landeros DO Other Provider Active Start : August 20, 2024 Dr. Miki Mtz MD Other Provider Active Sta rt: August 20, 2024 Dr. Gaudencio Mann MD Other Provider Active St art: August 20, 2024 Dr. Duran Bahena MD Other Provider Active S tart: August 20, 2024 Dr. Abigail Darling MD Other Provider Active Start: August 20, 2024 Dr. Alvin oSusa MD Other Provider Active Start : August 20, 2024 Dr. Keith Robison MD Other Provider Active Start: August 20, 2024 Dr. Osei Talbot MD Other Provider Active Start : August 20, 2024 Dr. Amirah Honeycutt MD Other Provider Active Star t: August 20, 2024 Dr. Paulette Luther MD Other Provider Active Sta rt: August 20, 2024 Dr. Meryl Torres MD Other Provider Active Sta rt: August 20, 2024 Dr. Miguel Medellin MD Other Provider Active Star t: August 20, 2024 Dr. Gabriel Jo MD Other Provider Active St art: August 20, 2024 Dr. Daryl Dominguez MD Other Provider Active Star t: August 20, 2024 Dr. Ramos Ordaz DO Other Provider Active St art: August 20, 2024 Dr. Steffi Lion MD Other Provider Active Start: August 20, 2024 Dr. Tank Mackey MD Other Provider Active St art: August 20, 2024 Dr. Manuelito Herman DO Other Provider Active Start: August 20, 2024 Dr. Ulices Saucedo MD Other Provider Active Star t: August 20, 2024 Dr. Gregor Zuniga MD Other Provider Active Sta rt: August 20, 2024 Dr. Vera Joseph MD Other Provider Active Start: August 20, 2024 Dr. Tod Lr MD Primary Care Provider Active Start: August 20, 2024 Dr. Ranjan Negron DO Referring Provider Active Start: August 20, 2024 Dr. Ranjan Negron DO Other Provider Active S tart: August 20, 2024 Dr. Brandon Medrano MD Other Provider Active Start: August 20, 2024 Team Status: Active Member Role/Relationship Status Dates Dr. Jose Alfredo Valderrama DO Emergency Provider Active Start: August 20, 2024 Dr. Miki Abdi DO Admit Provider Active Start: August 20, 2024 Dr. Miki Abdi DO Other Provider Active Start: August 20, 2024 Dr. James Christian MD Other Provider Active Start: August 20, 2024 Dr. Oskar Apple MD Other Provider Active Start: August 20, 2024 Dr. Edu August MD Other Provider Active Star t: August 20, 2024 Dr. Vero Landeros , Other Provider Active Start : August 20, 2024 Dr. Miki Mtz MD Other Provider Active Sta rt: August 20, 2024 Dr. Gaudencio Mann MD Other Provider Active St art: August 20, 2024 Dr. Duran Bahena MD Other Provider Active S tart: August 20, 2024 Dr. Abigail Darling MD Other Provider Active Start: August 20, 2024 Dr. Alvin Sousa MD Other Provider Active Start : August 20, 2024 Dr. Keith Robison MD Other Provider Active Start: August 20, 2024 Dr. Osei Talbot MD Other Provider Active Start : August 20, 2024 Dr. Amirah Honeycutt MD Other Provider Active Star t: August 20, 2024 Dr. Paulette Luther MD Other Provider Active Sta rt: August 20, 2024 Dr. Meryl Torres MD Other Provider Active Sta rt: August 20, 2024 Dr. Miguel Medellin MD Other Provider Active Star t: August 20, 2024 Dr. Gabriel Jo MD Other Provider Active St art: August 20, 2024 Dr. Daryl Dominguez MD Other Provider Active Star t: August 20, 2024 Dr. Ramos Ordaz DO Other Provider Active St art: August 20, 2024 Dr. Steffi Lion MD Other Provider Active Start: August 20, 2024 Dr. Tank Mackey MD Other Provider Active St art: August 20, 2024 Dr. Manuelito Herman DO Other Provider Active Start: August 20, 2024 Dr. Ulices Saucedo MD Other Provider Active Star t: August 20, 2024 Dr. Gregor Zuniga MD Other Provider Active Sta rt: August 20, 2024 Dr. Vera Joseph MD Other Provider Active Start: August 20, 2024 Dr. Tod Lr MD Primary Care Provider Active Start: August 20, 2024 Dr. Ranjan Negron , Attending Provider Active Start: August 20, 2024 Dr. Ranjan Negron DO Other Provider Active S tart: August 20, 2024 Dr. Brandon Medrano MD Other Provider Active Start: August 20, 2024 Team Status: Active Member Role/Relationship Status Dates Dr. Jose Alfredo Valderrama DO Emergency Provider Active Start: August 21, 2024 Dr. Miki Abdi DO Admit Provider Active Start: August 21, 2024 Dr. Miki Abdi DO Other Provider Active Start: August 21, 2024 Dr. James Christian MD Other Provider Active Start: August 21, 2024 Dr. Oskar Apple MD Other Provider Active Start: August 21, 2024 Dr. Edu August MD Other Provider Active Star t: August 21, 2024 Dr. Vero Landeros DO Attending Provider Active S tart: August 21, 2024 Dr. Vero Landeros DO Other Provider Active Start : August 21, 2024 Dr. Miki Mtz MD Other Provider Active Sta rt: August 21, 2024 Dr. Gaudencio Mann MD Other Provider Active St art: August 21, 2024 Dr. Duran Bahena MD Other Provider Active S tart: August 21, 2024 Dr. Abigail Darling MD Other Provider Active Start: August 21, 2024 Dr. Alvin Sousa MD Other Provider Active Start : August 21, 2024 Dr. Keith Robison MD Other Provider Active Start: August 21, 2024 Dr. Osei Talbot MD Other Provider Active Start : August 21, 2024 Dr. Amirah Honeycutt MD Other Provider Active Star t: August 21, 2024 Dr. Paulette Luther MD Other Provider Active Sta rt: August 21, 2024 Dr. Meryl Torres MD Other Provider Active Sta rt: August 21, 2024 Dr. Miguel Medellin MD Other Provider Active Star t: August 21, 2024 Dr. Gabriel Jo MD Other Provider Active St art: August 21, 2024 Dr. Daryl Dominguez MD Other Provider Active Star t: August 21, 2024 Dr. Ramos Ordaz DO Other Provider Active St art: August 21, 2024 Dr. Steffi Lion MD Other Provider Active Start: August 21, 2024 Dr. Tank Mackey MD Other Provider Active St art: August 21, 2024 Dr. Manuelito Herman , Other Provider Active Start: August 21, 2024 Dr. Ulices Saucedo MD Other Provider Active Star t: August 21, 2024 Dr. Gregor Zuniga MD Other Provider Active Sta rt: August 21, 2024 Dr. Vera Joseph MD Other Provider Active Start: August 21, 2024 Dr. Tod Lr MD Primary Care Provider Active Start: August 21, 2024 Dr. Ranjan Negron DO Referring Provider Active Start: August 21, 2024 Dr. Ranjan Negron DO Other Provider Active S tart: August 21, 2024 Dr. Brandon Medrnao MD Other Provider Active Start: August 21, 2024 Team Status: Active Member Role/Relationship Status Dates Dr. Jose Alfredo Valderrama DO Emergency Provider Active Start: August 21, 2024 Dr. Miki Abdi DO Admit Provider Active Start: August 21, 2024 Dr. Miki Abdi DO Other Provider Active Start: August 21, 2024 Dr. Tod Lr MD Primary Care Provider Active Start: August 21, 2024 Dr. Ranjan Negron DO Attending Provider Active Start: August 21, 2024 Dr. Ranjan Negron DO Other Provider Active S tart: August 21, 2024 Dr. Brandon Medrano MD Other Provider Active Start: August 21, 2024 Dr. Vera Joseph MD Other Provider Active Start: August 21, 2024 Team Status: Active Member Role/Relationship Status Dates Dr. Jose Alfredo Valderrama DO Emergency Provider Active Start: August 22, 2024 Dr. Miki Abdi DO Admit Provider Active Start: August 22, 2024 Dr. Miki Abdi DO Other Provider Active Start: August 22, 2024 Dr. Tod Lr MD Primary Care Provider Active Start: August 22, 2024 Dr. Ranjan Negron DO Attending Provider Active Start: August 22, 2024 Dr. Ranjan Negron DO Other Provider Active S tart: August 22, 2024 Dr. Brandon Medrano MD Other Provider Active Start: August 22, 2024 Dr. Vera Joseph MD Other Provider Active Start: August 22, 2024 Team Status: Active Member Role/Relationship Status Dates Dr. Jose Alfredo Valderrama DO Emergency Provider Active Start: August 23, 2024 Dr. Miki Abdi DO Admit Provider Active Start: August 23, 2024 Dr. Miki Abdi DO Other Provider Active Start: August 23, 2024 Dr. Tod Lr MD Primary Care Provider Active Start: August 23, 2024 Dr. Ranjan Negron DO Attending Provider Active Start: August 23, 2024 Dr. Ranjan Negron DO Other Provider Active S tart: August 23, 2024 Dr. Brandon Medrano MD Other Provider Active Start: August 23, 2024 Dr. Vera Joseph MD Other Provider Active Start: August 23, 2024 Team Status: Active Member Role/Relationship Status Dates Dr. Jose Alfredo Valderrama DO Emergency Provider Active Start: August 24, 2024 Dr. Miki Abdi DO Admit Provider Active Start: August 24, 2024 Dr. Miki Abdi DO Other Provider Active Start: August 24, 2024 Dr. Tod Lr MD Primary Care Provider Active Start: August 24, 2024 Dr. Brandon Medrano MD Other Provider Active Start: August 24, 2024 Dr. Vera Joseph MD Other Provider Active Start: August 24, 2024 Dr. Miki Glover MD Attending Provider Active Start: August 24, 2024 Dr. Miki Glover MD Other Provider Active Star t: August 24, 2024 Dr. Ranjan Negron DO Other Provider Active S tart: August 24, 2024 Team Status: Active Member Role/Relationship Status Dates Dr. Jose Alfredo Valderrama DO Emergency Provider Active Start: August 25, 2024 Dr. Miki Abdi DO Admit Provider Active Start: August 25, 2024 Dr. Miki Abdi DO Other Provider Active Start: August 25, 2024 Dr. Tod Lr MD Primary Care Provider Active Start: August 25, 2024 Dr. Brandon Medrano MD Other Provider Active Start: August 25, 2024 Dr. Vera Joseph MD Other Provider Active Start: August 25, 2024 Dr. Miki Glover MD Attending Provider Active Start: August 25, 2024 Dr. Miki Glover MD Other Provider Active Star t: August 25, 2024 Dr. Ranjan Negron , Other Provider Active S tart: August 25, 2024 Dr. Gary Lezama MD Other Provider Active Start: August 25, 2024 Team Status: Active Member Role/Relationship Status Dates Dr. Jose Alfredo Valderrama DO Emergency Provider Active Start: August 25, 2024 Dr. Miki Abdi , DO Admit Provider Active Start: August 25, 2024 Dr. Miki Abdi DO Other Provider Active Start: August 25, 2024 Dr. Tod Lr MD Primary Care Provider Active Start: August 25, 2024 Dr. Brandon Medrano MD Other Provider Active Start: August 25, 2024 Dr. Vera Joseph MD Other Provider Active Start: August 25, 2024 Dr. Miki Glover MD Other Provider Active Star t: August 25, 2024 Dr. Ranjan Negron , Other Provider Active S tart: August 25, 2024 Dr. Gary Lezama MD Other Provider Active Start: August 25, 2024 Sita HDZ PAAngela Attending Provider Active Start: August 25, 2024 Team Status: Active Member Role/Relationship Status Dates Dr. Jose Alfredo Valderrama DO Emergency Provider Active Start: August 26, 2024 Dr. Miki Abdi DO Admit Provider Active Start: August 26, 2024 Dr. Miki Abdi DO Other Provider Active Start: August 26, 2024 Dr. Tod Lr MD Primary Care Provider Active Start: August 26, 2024 Dr. Brandon Medrano MD Other Provider Active Start: August 26, 2024 Dr. Vera Joseph MD Other Provider Active Start: August 26, 2024 Dr. Miki Glover MD Attending Provider Active Start: August 26, 2024 Dr. Miki Glover MD Other Provider Active Star t: August 26, 2024 Dr. Ranjan Negron , Other Provider Active S tart: August 26, 2024 Dr. Gary Lezama MD Other Provider Active Start: August 26, 2024 Team Status: Active Member Role/Relationship Status Dates Dr. Jose Alfredo Valderrama , DO Emergency Provider Active Start: August 26, 2024 Dr. Miki Abdi , DO Admit Provider Active Start: August 26, 2024 Dr. Miki Abdi , DO Other Provider Active Start: August 26, 2024 Dr. Tod Lr MD Primary Care Provider Active Start: August 26, 2024 Dr. Brandon Medrano MD Other Provider Active Start: August 26, 2024 Dr. Vera Joseph MD Other Provider Active Start: August 26, 2024 Dr. Miki Glover MD Other Provider Active Star t: August 26, 2024 Dr. Ranjan Negron , DO Other Provider Active S tart: August 26, 2024 Dr. Gary Lezama MD Attending Provider Active Start: August 26, 2024 Dr. Gary Lezama MD Referring Provider Active Start: August 26, 2024 Dr. Gary Lezama MD Other Provider Active Start: August 26, 2024 Team Status: Inactive Member Role/Relationship Status Dates Dr. Tod Lr MD Primary Care Provider Active Start: August 28, 2024 End: August 28, 2024 Dr. Ramana Huntley DO Attending Provider Active S tart: August 28, 2024 End: August 28, 2024 Dr. Ramana Huntley DO Emergency Provider Active S tart: August 28, 2024 End: August 28, 2024 Team Status: Active Member Role/Relationship Status Dates Dr. Tod Lr MD Primary Care Provider Active Start: August 28, 2024 Dr. Ramana Huntley DO Referring Provider Active S tart: August 28, 2024 Dr. Ramana Huntley DO Emergency Provider Active S tart: August 28, 2024 Dr. Jeffery Villafana MD Attending Provider Active Start: August 28, 2024 Team Status: Active Member Role/Relationship Status Dates Dr. Tod Lr MD Primary Care Provider Active Start: October 24, 2024 Dr. Austin Hannon DO Referring Provider Active Start: October 24, 2024 Dr. Austin Hannon , Emergency Provider Active Start: October 24, 2024 Dr. Michelle Martin MD Admit Provider Active Star t: October 24, 2024 Dr. Michelle Martin MD Attending Provider Active Start: October 24, 2024 Reason for Visit (unrecogniz ed section and [...] Specialty Diagnoses / Procedures Referred By Duane alva Referred To Contact Diagnoses Vomiting Procedures R11.10 Pam Shell MD [address] [address] [facility] 2e Telemetry [address] [place] [address] Referral ID Status Reason Start Date Expiration Date Visits Re quested Visits Authorized [id number] 1 Reason Onset Date Comments Care [...] Hyperglycemia Specialty Diagnoses / Procedures Referred By Contkaden t Referred To Contact Diagnoses Dehydration Diabetic ketoacidosis without coma associated with other specified diabetes mellitus (HCC) Nausea and vomiting, unspecified vomiting type Procedures E86.0 (ICD-10-CM) - Dehydration Lane Maldonado MD [address] [place] [address] Phone: tel: fax: [facility] Intensive Care Unit ICU [address] [place] [address] Phone: tel: Referral ID Status Reason Start Date Expiration Date Visits Re quested Visits Authorized [id number] 1 1 Reason Comments Follow-up Diabetes Mellitus [...] Comments [facility]up [facility] 08/10-08/26/24 Scheduled Active and Recently Administ ered Medications (unrecognized section and content) Medication Order 08/16/2022 08/17/2022 08/18/2022 aspirin tablet 325 mg 325 mg, Oral, Daily, First dose on Sat08/15/22 at 0900 0900 (Not Given - Provider: Patricia Londono RN - Reason: Upcoming test/procedure) 1000 (Given - Provider: Livia Ram RN) 0900 (Given - Provider: Audrey Hensley RN) baclofen (Lioresal) tablet 10 mg 10 mg, Oral, Every 8 hours, First dose on Sat08/15/22 at 1345 0545 (Canceled Entry - Provider: Royal Kc RN - Comment: patient NPO for EGD)1234 (Given - Provider: Patricia Londono RN)2040 (Given - Provider: Mary Lorenzo RN) 0538 (Given - Provider: Mary Lorenzo RN)1305 (Given - Provider: Livia Ram RN)2010 (Given - Provider: Mary Lorenzo RN) 0615 [...] Ram RN) 0800 (Given - Provider: Audrey Hensley RN)1219 (Given - Provider: Audrey Hensley RN)1700 (Canceled Entry - Provider: Automatic Discharge [...] Ram RN) 0755 (Given - Provider: Audrey Hensley RN)1218 (Given - Provider: Audrey Hensley RN)1700 (Canceled Entry - Provider: Automatic Discharge [...] RN) 0802 (Given - Provider: Audrey Hensley, RN) lisinopril tablet 2.5 mg 2.5 mg, Oral, Daily, First dose on Sat08/15/22 at 0900 1232 (Given - Provider: Patricia Londono RN) 1000 (Given - Provider: Livia Ram RN) 0802 (Given - Provider: Audrey Hensley, RN) omega-3 acid ethyl esters (Lovaza) capsule 1 g 1 g, Oral, Daily, First dose on Sat08/15/22 at 0900, Do not crush, chew, or split. 0900 (Not Given - Provider: Patricia Londono RN - Reason: NPO) 1000 (Given - Provider: Livia Ram RN) 0802 (Given - Provider: Audrey Hensley RN) pantoprazole (ProtoNix) injection 40 mg(Linked Group 1) [...] years of age. 2053 (Given - Provider: Mayr Lorenzo RN) 0306 (Given - Provider: Mary Lorenzo RN)1001 (Given - Provider: Livia Ram RN)1456 (Given - Provider: Livia Ram RN) traMADol (Ultram) tablet 100 mg 100 mg, Oral, Every 8 hours, First dose on Sat08/17/22 at 2145, For 3 doses, Max of 300 mg daily for patients > 75 years of age. 3 (Given - Provider: Mary Lorenzo RN) 0615 [...] 1237 (Given - Provider: Patricia Londono RN) 122 (Given - Provider: Mary Lorenzo, JENELLE)2009 (Given - Provider: Mary Lorenzo, JENELLE) ondansetron (Zofran) injection 4 mg(Linked Group 3) [...] Patient/family refused)1045 (Not Given - Provider: Karyn Lopez, JENELLE - Reason: Patient/family refused)1845 (Canceled Entry - Provider: Automatic Discharge Provider - Comment: Automatically canceled at discontinue of medication order) aluminum & magnesium hydroxide-simethicone (Mylanta) 200-200-20 MG/5ML oral suspension 20 mL (COMPLETED)(Linked Group 1) 20 mL, Oral, Once, On 02/15/24 at 1740, For 1 dose, Mix with 5 mL viscous lidocaine oral solution and give together (25 mL total). 1750 (Given - Provider: Miracle Enrique, JENELLE) aluminum [...] Venous Thromboembolism 902 (Given - Provider: Audrey Nayak RN) 912 (Given - Provider: Karyn Lopez, JENELLE) famotidine (Pepcid) 20 mg in sodium chloride (PF) 0.9 % 10 mL injection (COMPLETED) 20 mg, IntraVENous, Administer over 2 Minutes, Once, On 02/15/24 at 1740, For 1 dose, IV Push over minimum of 2 minutes - Dilute with 10 mL NS 1750 (Given - Provider: Miracle Enrique, JENELLE) influenza vaccine A&B surf ant adjuvanted (Fluad) HIGH-DOSE injection 0.5 mL 0.5 mL, IntraMUSCular, Prior to discharge, Starting on 02/16/24 at 0900, For 1 dose insulin glargine (Lantus) injection 14 Units 14 Units, SubCUTAneous, Nightly, First dose on 02/16/24 at 0115 0119 (Given - Provider: Christy Otoole RN)2125 (Given - Provider: Giana Hood, RN) Insulin Lispro (Humalog) injection 0-12 Units(Linked [...] Otoole RN - Reason: Order parameters not met)2125 (Given - Provider: Giana Hood, JENELLE) Insulin Lispro (Humalog) injection 16 Units 16 Units, SubCUTAneous, 3 times daily with meals, First dose on 02/16/24 at 0800 0903 (Given - Provider: Audrey Nayak RN)1230 (Given - Provider: Audrey Nayak RN)1855 (Given - Provider: Bing Betancourt RN) 0914 (Given - Provider: Karyn Lopez, RN)1307 (Given - Provider: Karyn Lopez, JENELLE)1700 (Canceled Entry - Provider: Automatic Discharge [...] clarification. 1606 (Given - Provider: Miracle Enrique RN) levothyroxine (Synthroid, Levoxyl) tablet 125 mcg 125 mcg, Oral, Daily before breakfast, First dose on 02/16/24 at 0600, Tube feeding (TF) interaction, obtain physician order to manage, recommend holding TF for 30 minutes before and after dose. 0552 (Given - Provider: Christy Otoole RN) 06 (Given - Provider: Giana Hood RN) lidocaine [...] 2002 (Given - Provider: Christy Otoole RN) 010 (Given - Provider: Christy Xiang, RN)0641 (Given - Provider: Christy Otoole RN)1229 (Given - Provider: Audrey Nayak, RN)1827 (Given - Provider: Storm Bonilla RN) 0139 (Given - Provider: Giana Hood RN)0601 (Given - Provider: Giana Hood RN)1245 (Not Given - Provider: Karyn Lopez RN - Reason: Patient/family refused)1845 (Canceled Entry - Provider: Automatic Discharge Provider - Comment: Automatically canceled at discontinue of medication order) mupirocin (Bactroban) 2 % ointment 1 Application 1 Application, Nasal, 2 times daily, First dose on 02/15/24 at 2100, For 5 days, Indications: MRSA Nasal Decolonization 2012 (Given - Provider: Christy Otoole RN) 09 (Given - Provider: Audrey Nayak RN)2100 (Not Given - Provider: Giana Hood RN - Reason: Patient/family refused) 0900 (Not Given - Provider: Karyn Lopez RN - Reason: Patient/family refused) ondansetron (Zofran) injection 4 mg (COMPLETED) 4 mg, IntraVENous, Once, On 02/15/24 at 1620, For 1 dose 1618 (Given - Provider: Miracle Enrique RN) pantoprazole (ProtoNix) 40 mg in sodium [...] or split. 1004 (Given - Provider: Audrey Nayak, RN) 0602 (Given - Provider: Giana Hood, [...] JENELLE)0250 (New Bag - Provider: Christy Otoole, JENELLE)0329 (Stopped - Provider: Christy Otoole RN)0354 (New Bag - Provider: Christy Otoole RN)0429 (Stopped - Provider: Christy Otoole, JENELLE)0442 (New Bag - Provider: Christy Otoole, JENELLE)0542 (Stopped - Provider: Christy Otoole, JENELLE) rosuvastatin (Crestor) tablet 40 mg 40 mg, Oral, Daily, First dose on 02/16/24 at 0900 0903 (Given - Provider: Audrey Nayak RN) 0913 (Given - Provider: Karyn Lopez RN) sodium chloride 0.9 % bolus 1,224 mL (COMPLETED)(Linked Group 4) 1,224 mL (15 mL/kg 81.6 kg), IntraVENous, at 1,224 mL/hr, Administer over 1 Hours, Once, On 02/15/24 at 1545, For 1 dose, Administer over 1 hour, then transition to maintenance infusion. 1604 (New Bag - Provider: Miracle Enrique RN)1704 (Stopped - Provider: Winsome Guan RN) traZODone [...] this AM 0130 (Restarted - Provider: Christy Otoole, RN)0520 (New Bag - Provider: Christy Otoole, RN)0888 (Stopped - Provider: Audrey Nayak RN) insulin regular 100 units in 100 mL [...] at 2152 2214 (Given - Provider: Christy Otoole RN) naloxone (Narcan) injection 0.4 mg 0.4 mg, IntraVENous, Every 5 min PRN, opioid reversal, respiratory depression, over sedation, RR <10, pinpoint pupils, Starting on 02/15/24 at 1833, +++notify guard immigration provider if used+++ ondansetron (Zofran) injection 4 mg(Linked Group 6) 4 mg, IntraVENous, Every 6 hours PRN, nausea, vomiting, Starting on 02/15/24 at 1833, 1st Line. Give IV if patient is unable to take orally. If inadequate response within 60 minutes, proceed to next-line agent or contact provider if no further options ordered. 1240 (Given - Provider: Audrey Nayak, JENELLE) ondansetron ODT (Zofran-ODT) disintegrating tablet 4 mg(Linked [...] 1833 1851 (See Alternative - Provider: Stepan Willson RN) 023 (See Alternative - Provider: Christy Otoole RN) oxyCODONE (Roxicodone) immediate release tablet 5 mg(Linked Group 7) 5 mg, Oral, Every 4 hours PRN, severe pain (7-10), Starting on 02/15/24 at 1833 1851 (Given - Provider: Stepan Willson RN) 238 (Given - Provider: Christy Otoole RN) sodium [...] 2142 (New Bag - Provider: Christy Otoole RN)231 (Stopped - Provider: Christy Otoole RN) 0240 [...] 2142 (See Alternative - Provider: Christy Otoole RN)231 (See Alternative - Provider: Christy Otoole RN) [...] mg/dL 20 mmol IVPB over 3 hours 2143 (See Alternative - Provider: Christy Otoole RN)2313 [...] times daily with meals, First dose on 10/20/24 at 0800, Medium Dose Correction Algorithm Glucose: [...] BE BASED ON THE PRIMARY CLINICAL RECORDS. [employer] [facility]. provides no warranty or guarantee of the accuracy or completeness of information in this document.
[2024-10-24 19:03] LABS: Reflex Lactate? Y
[2024-10-24 19:16] LABS: Bedside Glucose 201 mg/dL (74-106)
[2024-10-24] MEDS: Potassium Chloride 10mEq/100mL 10 MEQ/100 ML IV.SOLN. 100 MEQ IV BOLUS ×4 (20:00→23:00)
[2024-10-24] MEDS: Dext 5%-0.45% NS 1,000 ML 150 ML IV (20:28)
[2024-10-24 21:22] LABS: Anion Gap 17 (5-15); BUN 35 mg/dL (4-19); BUN/Creat Ratio 32.5 RATIO (10-20); Calcium,Total 9.2 mg/dL (7.6-11.0); Carbon Dioxide 22.4 mmol/L (21.0-32.0); Chloride 99 mmol/L (98-108); Creatinine, Serum 1.08 mg/dL (0.70-1.20); EST Glomerular Filtration Rate 75 (>60); Estimated Creatinine Clearance 68.53 ml/min (50-250); Glucose 182 mg/dL (70-99); Sodium Level 138 mmol/L (133-145)
[2024-10-24 21:35] LABS: Bedside Glucose 186 mg/dL (74-106)
[2024-10-24 21:35] LABS: Bedside Glucose 164 mg/dL (74-106)
[2024-10-24 22:08] LABS: Lactic Acid 1.5 mmol/L (0.0-2.0)
[2024-10-24] MEDS: Pantoprazole Sodium 40 MG in 0.9% Normal Saline (100mL MB+) 100 ML 330 MG IV (22:14)
[2024-10-24] MEDS: CLARIFY ORDER 1 EACH NOTE (22:14)
[2024-10-25] VITALS (11 sets, daily range): BP systolic 118–149; BP diastolic 64–87; PULSE 78–101; RESP 11–19; TEMP 37.4–37.7; O2SAT 90–97; BMI 23.2
[2024-10-25 01:24] LABS: Anion Gap 13 (5-15); BUN 28 mg/dL (4-19); BUN/Creat Ratio 27.5 RATIO (10-20); Calcium,Total 9.3 mg/dL (7.6-11.0); Carbon Dioxide 24.8 mmol/L (21.0-32.0); Chloride 99 mmol/L (98-108); Creatinine, Serum 1.02 mg/dL (0.70-1.20); EST Glomerular Filtration Rate 81 (>60); Estimated Creatinine Clearance 72.56 ml/min (50-250); Glucose 206 mg/dL (70-99); Potassium 3.4 mmol/L (3.3-5.1); Sodium Level 137 mmol/L (133-145)
[2024-10-25 01:49] LABS: Bedside Glucose 183 mg/dL (74-106)
[2024-10-25 01:49] LABS: Bedside Glucose 203 mg/dL (74-106)
[2024-10-25 01:49] LABS: Bedside Glucose 202 mg/dL (74-106)
--- NOTE | 2024-10-25 02:37 | NURSING ---
pt states is alf so she can not be updated, he said try to call manuelito in the morning, pt unsure about what medications he take. will have dayshift call bruce in [place] to clarify medications
[2024-10-25] MEDS: Dext 5%-0.45% NS 1,000 ML 150 ML IV (03:10)
[2024-10-25] MEDS: 0.9% Saline Lock 10 ML Syringe IV (03:11)
[2024-10-25] MEDS: oxyCODONE 5 MG Tablet PO (03:11)
[2024-10-25] MEDS: Levothyroxine 125 MCG Tablet PO (04:21)
[2024-10-25 04:32] LABS: Absolute Lymphocyte Count 0.97 X10^3/uL (0.83-4.51); Absolute Neutrophil Count 18.4 X10^3/uL (2.0-7.7); Basophil# 0.03 X10^3/uL; Basophil% 0.1 % (0-1); Eosinophil# 0.01 X10^3/uL; Hematocrit 39.7 % (40-54); Hemoglobin 13.9 g/dL (13.0-16.5); Lymphocyte # 0.97 X10^3/ul (0.83-4.51); Lymphocyte % 4.6 % (19-41); Mean Corpuscular Hgb 31.3 pg (27.0-32.0); Mean Corpuscular Volume 89.4 fL (80-94); Mean Platelet Vol. 11.4 fl (6.2-12.0); Monocyte# 1.47 X10^3/uL; NRBC Flagged by Analyzer 0 % (0-5); Neutrophil # 18.41 X10^3/uL (2.7-7.7); Neutrophil % 87.7 % (47-70); Platelet Count 253 K/mm3 (150-450); RBC Distribution Width CV 12.9 % (11.6-14.6); RBC Distribution Width SD 42.5 fl (35.1-43.9); Red Blood Count 4.44 M/mm3 (4.6-6.2)
[2024-10-25 04:58] LABS: Anion Gap 11 (5-15); BUN 24 mg/dL (4-19); BUN/Creat Ratio 26.1 RATIO (10-20); Carbon Dioxide 25.1 mmol/L (21.0-32.0); Chloride 103 mmol/L (98-108); Creatinine, Serum 0.93 mg/dL (0.70-1.20); EST Glomerular Filtration Rate 91 (>60); Estimated Creatinine Clearance 79.58 ml/min (50-250); Glucose 136 mg/dL (70-99); Potassium 3.2 mmol/L (3.3-5.1); Sodium Level 139 mmol/L (133-145)
[2024-10-25] MEDS: proCHLORPERazine 10 MG/2 ML Vial 5 MG IV (05:33)
--- NOTE | 2024-10-25 06:33 | PCM.HOSP.N ---
Hospitalist Note Patient with closed gap x 2, will change to home insulin regimen now, allow ADA diet, change to accu check ACHS.
[2024-10-25] MEDS: 0.9% Normal Saline (1000mL) 1,000 ML 999 ML IV ×2 (08:25→10:15)
[2024-10-25] MEDS: Potassium Chloride Oral Tablet 20 MEQ 60 MEQ PO (08:29)
[2024-10-25] MEDS: Insulin Glargine-YFGN 100 UNIT/ML Pen 18 UNIT SC (08:32)
[2024-10-25] MEDS: Aspirin 325 MG Tablet PO (08:34)
[2024-10-25] MEDS: Enoxaparin 40 MG/0.4 ML Syringe SC (08:41)
[2024-10-25] MEDS: Pantoprazole Sodium 40 MG in 0.9% Normal Saline (100mL MB+) 100 ML 330 MG IV (08:42)
[2024-10-25] MEDS: Pravastatin 80 MG Tablet PO (08:42)
[2024-10-25 09:00] LABS: Bedside Glucose 111 mg/dL (74-106)
[2024-10-25 09:00] LABS: Bedside Glucose 124 mg/dL (74-106)
[2024-10-25 09:00] LABS: Bedside Glucose 130 mg/dL (74-106)
[2024-10-25 09:00] LABS: Bedside Glucose 168 mg/dL (74-106)
[2024-10-25 09:00] LABS: Bedside Glucose 130 mg/dL (74-106)
[2024-10-25 09:00] LABS: Bedside Glucose 139 mg/dL (74-106)
--- NOTE | 2024-10-25 09:54 | DCINST_ITS ---
Discharge Instructions Diet Discharge Diet: 1800 Calorie Control Diet DC O2, CPAP, BIPAP needs Home O2 Discharge instructions: No Dressing / Incision Discharge Activity: Return to Normal Activity Weight Bearing Status: Full weight bearing Follow Up Care Test Results: Test results from this visit will be discussed in further detail at your follow- up appointment, if applicable. Discharge Plan Admission Admit Date/Time: 10/24/24 18:35 Primary Reason for Your Visit: DKA Attending Provider: Ranjan Negron Primary Care Provider: Andrea Cadet Consulting Providers: Michelle Martin Discharge Orders/Prescriptions Prescriptions: Continued aspirin 325 MG tablet 325 mg PO DAILY@0800 levothyroxine 88 MCG tablet 88 mcg PO DAILY pravastatin 80 MG tablet 80 mg PO DAILY Novolin R Regular U100 Insulin 100 UNIT/ML solution 15 unit subcut TIDCM Multiple Vitamin-Minerals 1 EACH tablet 1 tab PO DAILY insulin NPH isoph U-100 human 100 UNIT/ML suspension 15 units SC BID ondansetron HCl 8 MG tablet 8 mg PO Q8H PRN PRN (Reason: nausea and vomiting) Qty: 30 0RF insulin glargine [Lantus Solostar U-100 Insulin] 100 unit/mL (3 mL) insulin pen 18 unit subcut QHS insulin lispro 100 unit/mL insulin pen 14 unit subcut TIDCM levothyroxine 125 mcg tablet 125 mcg PO DAILY rosuvastatin 40 mg tablet 40 mg PO DAILY buprenorphine-naloxone 8-2 mg film 1.5 film sublingual DAILY pantoprazole 40 mg Tablet,Delayed Release (Dr/Ec) 40 mg PO BID 30 Days Qty: 60 0RF ondansetron 4 mg tablet,disintegrating 4 mg PO Q6H PRN (Reason: nausea and vomiting) Qty: 30 0RF pantoprazole 40 mg tablet,delayed release (DR/EC) 40 mg PO BID buprenorphine-naloxone 8-2 mg film 1.5 ea sublingual DAILY Referrals / Follow Up: Andrea Cadet MD [Primary Care Provider] - Disposition Disposition (needs filled in before D/C Order can be placed): Home, Self Care
--- NOTE | 2024-10-25 09:58 | PCM.DC.SUM ---
Providers Date of Admission: 10/24/24 Date of Discharge: 10/25/24 Primary Care Physician: Dr. Andrea Cadet MD Reason For Visit: DKA Diagnosis Discharge Diagnosis (1) DKA (diabetic ketoacidosis): Status: Acute Code(s): E11.10 - Type 2 diabetes mellitus with ketoacidosis without coma Plan Final diagnosis #1 diabetic ketoacidosis #2 uncontrolled type 1 diabetes #3 history of opiate substance abuse #4 hyperlipidemia #5 hypothyroidism #6 nausea and vomiting secondary to #1 #7 sigmoid colitis Medications at Discharge Home Medications aspirin 325 mg tablet 325 mg PO DAILY@0800 heart health 09/27/18 insulin regular human 100 unit/mL injection solution (Novolin R Regular U-100 Insulin) 15 unit subcut TIDCM diabeties 09/27/18 levothyroxine 88 mcg tablet 88 mcg PO DAILY thyroid 09/27/18 multivitamin with minerals (Multiple Vitamin-Minerals tablet) 1 tab PO DAILY supplement 09/27/18 pravastatin 80 mg tablet 80 mg PO DAILY cholesterol 09/27/18 insulin NPH isoph U-100 human 100 unit/mL subcutaneous suspension 15 units subcut BID diabeties 06/16/20 ondansetron HCl 8 mg tablet 8 mg PO Q8H PRN PRN nausea and vomiting #30 tabs 06/17/20 pantoprazole 40 mg tablet,delayed release 40 mg PO BID 30 days #60 tabs 08/26/24 buprenorphine 8 mg-naloxone 2 mg sublingual film 1.5 ea sublingual DAILY 08/28/24 ciprofloxacin HCl 500 mg tablet 500 mg PO BID #14 tabs 10/25/24 Hospital Course Operations None Procedures None Summary of Care Provided Minutes Spent on Discharge: 31 Hospital Course: This 68-year-old white male was seen in the emergency room at [facility] [place] with a chief complaint of nausea/ vomiting, abdominal pain and malaise. The symptoms have been going on for about 3 days, patient is diabetic and states that he has been taking his insulin as directed. Workup in the emergency room revealed an elevated white blood cell count at 25.2, hemoglobin was 16, chemistry profile was abnormal for sodium of 131, potassium of 6.5, chloride of 88, creatinine of 1.4, BUN of 44, and glucose of 522. Patient's lactic acid was elevated at 2.7, 8 hydroxy butyric acid was elevated at 6.6. UA showed positive nitrites but 0 bacteria 0-5 red cells and 0 white cells. Chest x-ray showed no focal consolidations, abdomen and pelvis CT showed wall thickening of the distal sigmoid colon compatible with colitis, there was severe circumferential wall thickening of the distal esophagus which may reflect esophagitis or esophageal neoplasm-patient had undergone an EGD recently however and he did have a history of esophagitis. There was gastric wall thickening that was unchanged from the previous study. Patient was admitted to ICU, he was given IV fluids and placed on an insulin drip, labs were monitored and his anion gap closed in the early hours of 10/25/2024. On 10/25/2024, patient was seen and examined: On examination he appeared in good health and spirits. Vital signs as documented. Skin warm and dry and without overt rashes. Neck without JVD, neck was supple, trachea midline, thyroid was normal. Lungs clear bilaterally, normal air movement was noted. Heart exam notable for regular rhythm, normal sounds and absence of murmurs, rubs or gallops. Abdomen unremarkable and without evidence of organomegaly, masses, or abdominal aortic enlargement. Bowel sounds are present, abdomen is not distended. Extremities nonedematous, no cyanosis was noted, no clubbing was noted. Neuro: Cranial nerves II through XII are grossly intact, no focal motor deficits were noted, sensation to light touch and pinprick intact, motor exam 5/5 throughout. Psych: Patient is alert and oriented x3, he does not appear anxious or depressed, he does not appear agitated. Patient appears stable for discharge home on 10/25/2024, I elected to place him on an antibiotic (Cipro) for colitis as an outpatient. Weight / BMI Weight Weight: 73.6 kg Body Mass Index (BMI) 23.2 ABG / Lab / Microbiology Data 10/25/24 04:00 10/25/24 04:00 Laboratory: Laboratory Results - last 24 hr 10/24/24 13:02: WBC 25.2 H, RBC 5.21, Hgb 16.0, Hct 46.7, MCV 89.6, MCH 30.7, MCHC 34.3, RDW Std Deviation 41.6, RDW Coeff of Vane 12.7, Plt Count 303, MPV 11.7, Immature Gran % (Auto) 0.700, Neut % (Auto) 91.3 H, Lymph % (Auto) 3.1 L, [place] % (Auto) 4.6, Eos % (Auto) 0.0, Baso % (Auto) 0.3, Absolute Neuts (auto) 23.1 H, Absolute Lymphs (auto) 0.78 L, Nucleated RBC % 0, Platelet Estimate A, Sodium Cancelled, Potassium Cancelled, Chloride Cancelled, Carbon Dioxide Cancelled, Anion Gap Cancelled, BUN Cancelled, Creatinine Cancelled, Estim Creat Clear Calc Cancelled, Est GFR (MDRD) Non-Af Cancelled, BUN/Creatinine Ratio Cancelled, Glucose Cancelled, Calcium Cancelled, Troponin T High Sens Cancelled 10/24/24 13:29: POC Glucose > 500 H* 10/24/24 13:46: PT 12.8, INR 1.0, APTT 26.8 10/24/24 14:12: Sodium 131 L, Potassium 6.5 H*, Chloride 88 L, Carbon Dioxide 15.8 L, Anion Gap 27 H, BUN 44 H, Creatinine 1.40 H, Estim Creat Clear Calc 52.87, Est GFR (MDRD) Non-Af 55 L, BUN/Creatinine Ratio 31.4 H, Glucose 522 H*, Calcium 8.4, Troponin T High Sens 17 D, b-Hydroxybutyric mmol/L 6.6 H 10/24/24 14:21: Urine Color Yellow, Urine Clarity Clear, Urine pH 6.0, Ur Specific Butler 1.030, Urine Protein 100 H, Urine Glucose (UA) 1000 H, Urine Ketones 150 A*, Urine Occult Blood 50 H, Urine Nitrite Positive H, Urine Bilirubin Negative, Urine Urobilinogen Normal, Ur Leukocyte Esterase Negative, Urine RBC 0-5 SEEN, Urine WBC 0 SEEN, Ur Squamous Epith Cells 0 SEEN, Urine Bacteria 0 SEEN, Urine Mucus 0 SEEN 10/24/24 14:53: Lactic Acid 2.7 H* 10/24/24 15:30: POC Glucose 484 H* 10/24/24 16:40: Sodium 134, Potassium 2.9 L, Chloride 91 L, Carbon Dioxide 22.9, Anion Gap 20 H, BUN 43 H, Creatinine 1.28 H, Estim Creat Clear Calc 57.82, Est GFR (MDRD) Non-Af 61, BUN/Creatinine Ratio 33.4 H, Glucose 356 H, Calcium 8.8, Troponin T Hi Sens 4Hr 22 10/24/24 17:45: POC Glucose 345 H 10/24/24 18:58: POC Glucose 201 H 10/24/24 20:25: Sodium 138, Potassium 3.0 L, Chloride 99, Carbon Dioxide 22.4, Anion Gap 17 H, BUN 35 H, Creatinine 1.08, Estim Creat Clear Calc 68.53, Est GFR (MDRD) Non-Af 75, BUN/Creatinine Ratio 32.5 H, Glucose 182 H, Lactic Acid 1.5, Calcium 9.2, Magnesium 2.0 10/24/24 20:27: POC Glucose 164 H 10/24/24 21:16: POC Glucose 186 H 10/24/24 22:11: POC Glucose 203 H 10/24/24 23:37: POC Glucose 183 H 10/25/24 00:35: POC Glucose 202 H 10/25/24 00:36: Sodium 137, Potassium 3.4, Chloride 99, Carbon Dioxide 24.8, Anion Gap 13, BUN 28 H, Creatinine 1.02, Estim Creat Clear Calc 72.56, Est GFR (MDRD) Non-Af 81, BUN/Creatinine Ratio 27.5 H, Glucose 206 H, Calcium 9.3 10/25/24 01:31: POC Glucose 168 H 10/25/24 03:13: POC Glucose 139 H 10/25/24 04:00: WBC 21.0 H, RBC 4.44 L, Hgb 13.9, Hct 39.7 L, MCV 89.4, MCH 31.3, MCHC 35.0, RDW Std Deviation 42.5, RDW Coeff of Vane 12.9, Plt Count 253, MPV 11.4, Immature Gran % (Auto) 0.600, Neut % (Auto) 87.7 H, Lymph % (Auto) 4.6 L, [place] % (Auto) 7.0, Eos % (Auto) 0.0, Baso % (Auto) 0.1, Absolute Neuts (auto) 18.4 H, Absolute Lymphs (auto) 0.97, Nucleated RBC % 0, Sodium 139, Potassium 3.2 L, Chloride 103, Carbon Dioxide 25.1, Anion Gap 11, BUN 24 H, Creatinine 0.93, Estim Creat Clear Calc 79.58, Est GFR (MDRD) Non-Af 91, BUN/Creatinine Ratio 26.1 H, Glucose 136 H, Calcium 9.0 10/25/24 04:20: POC Glucose 130 H 10/25/24 05:30: POC Glucose 130 H 10/25/24 06:35: POC Glucose 124 H 10/25/24 08:29: POC Glucose 111 H 10/25/24 11:18: POC Glucose 311 H ABG: ABG 10/24/24 13:48 Specimen Type AMBROSIO Sample Site Not entered VBG pH 7.50 H VBG pO2 65 H VBG HCO3 18 L VBG Total CO2 19 L VBG O2 Sat (Calc) 95 H VBG Base Excess -5 L POC Mix VBG pCO2 Pt Tmp 23.4 L O2 Delivery Device Room Air Radiography Diagnostic Testing: Radiology Impression Chest X-Ray 10/24/24 13:12 IMPRESSION: No focal consolidations. Reading Location: [facility] Abdomen/Pelvis CT 10/24/24 13:35 IMPRESSION: 1. Wall thickening of the distal sigmoid colon, compatible with colitis. 2. Persistent severe circumferential wall thickening of the distal esophagus, which may reflect esophagitis or esophageal neoplasm. Correlation with upper endoscopy if not recently performed is recommended for further evaluation. 3. Unchanged subtle gastric wall thickening, which may represent gastritis. Reading Location: [id number] D/C Instructions Discharge Diet: 1800 Calorie Control Diet Weight Bearing Status: Full weight bearing DC O2, CPAP, BIPAP Needs Home O2 Discharge instructions: No Meaningful Use Info Meaningful Use Meaningful Use Diagnoses (Choose all that apply): None applicable Ischemic Stroke Statin Dosing Therapy Reference: STATIN DOSE THERAPY REFERENCE: * Patients > 75 years receive moderate or high dose statin therapy. * Patients 75 years or YOUNGER should receive HIGH intensity statin dose unless contraindicated. You will be required to document reason for non-treatment if statin daily dose does not meet guidelines. HIGH DOSE STATIN THERAPY DAILY Atorvastatin > than or = to 40 mg Rosuvastatin > than or = to 20 mg Amlodipine + Atorvastatin > than or = to 2.5/40 mg Ezetimibe + Simvastatin 10/80 mg Simvastatin 80mg Discharge Plan Admission Admit Date/Time: 10/24/24 18:35 Primary Reason for Your Visit: DKA Attending Provider: Ranjan Negron Primary Care Provider: Andrea Caedt Consulting Providers: Michelle Martin Discharge Orders/Prescriptions Prescriptions: New ciprofloxacin HCl 500 mg tablet 500 mg PO BID Qty: 14 0RF Continued aspirin 325 MG tablet 325 mg PO DAILY@0800 levothyroxine 88 MCG tablet 88 mcg PO DAILY pravastatin 80 MG tablet 80 mg PO DAILY Novolin R Regular U100 Insulin 100 UNIT/ML solution 15 unit subcut TIDCM Multiple Vitamin-Minerals 1 EACH tablet 1 tab PO DAILY insulin NPH isoph U-100 human 100 UNIT/ML suspension 15 units SC BID ondansetron HCl 8 MG tablet 8 mg PO Q8H PRN PRN (Reason: nausea and vomiting) Qty: 30 0RF pantoprazole 40 mg Tablet,Delayed Release (Dr/Ec) 40 mg PO BID 30 Days Qty: 60 0RF buprenorphine-naloxone 8-2 mg film 1.5 ea sublingual DAILY Discontinued insulin glargine [Lantus Solostar U-100 Insulin] 100 unit/mL (3 mL) insulin pen 18 unit subcut QHS insulin lispro 100 unit/mL insulin pen 14 unit subcut TIDCM levothyroxine 125 mcg tablet 125 mcg PO DAILY rosuvastatin 40 mg tablet 40 mg PO DAILY buprenorphine-naloxone 8-2 mg film 1.5 film sublingual DAILY ondansetron 4 mg tablet,disintegrating 4 mg PO Q6H PRN (Reason: nausea and vomiting) Qty: 30 0RF pantoprazole 40 mg tablet,delayed release (DR/EC) 40 mg PO BID Referrals / Follow Up: Andrea Cadet MD [Primary Care Provider] - Within 2 Weeks Disposition Disposition (needs filled in before D/C Order can be placed): Home, Self Care Charges/Coding Visit Charges Inpatient E&M: 39905 Disch Hosp >30min
[2024-10-25] MEDS: Insulin Lispro 100 UNIT/ML INSULN.PEN 14 UNIT SC (11:22)
[2024-10-25 11:54] LABS: Bedside Glucose 311 mg/dL (74-106)
== END 2024-10-25 13:05 | disposition home or self-care (01) | DRG 639 ==
LOC: ED 17:41 → ICU 18:57
PROVIDERS: Admitting Provider Internal Medicine; Emergency Provider Emergency Medicine; PCP Family Medicine; Referring Provider Emergency Medicine; Visit Provider Internal Medicine
DX: E10.10 Type 1 diabetes mellitus with ketoacidosis without coma (principal); E87.5 Hyperkalemia; F11.10 Opioid abuse, uncomplicated; Z79.4 Long term (current) use of insulin; E87.6 Hypokalemia; K22.89 Other specified disease of esophagus; K63.89 Other specified diseases of intestine; Z79.82 Long term (current) use of aspirin; Z79.890 Hormone replacement therapy; Z79.899 Other long term (current) drug therapy; Z87.891 Personal history of nicotine dependence
CPT/HCPCS: 36415; 51702; 71045; 74177; 80048; 81001; 82010; 82803; 82962; 83605; 83735; 84484; 85025; 85610; 85730; 87040; 87086; 93005; 99285; Q9967; A4216; J2405